=== PATIENT | female | born 1985 | race Caucasian/White ===

== ENCOUNTER 2016-05-23 10:45 | Emergency (ER) | payer BC ==
[2016-05-23 11:12] VITALS: RESP 16
[2016-05-23] MEDS ORDERED: KETOROLAC 30 MG/ML 1 ML VIAL IVP STA (11:29)
[2016-05-23] MEDS ORDERED: SODIUM CHLORIDE 0.9% 1,000 ML IV ONE (11:29)
[2016-05-23] MEDS ORDERED: METOCLOPRAMIDE 5 MG/ML 2 ML VIAL IVP STA (11:29)
[2016-05-23] MEDS ORDERED: diphenhydrAMINE 50 MG/ML 1 ML VIAL IVP STA (11:29)
--- NOTE | 2016-05-23 11:33 | ED ---
Headache HPI - General Chief Complaint: Headache Stated Complaint: Headache-4 days Time Seen by Provider: 05/23/16 11:17 Source: RN notes reviewed Mode of arrival: ambulatory Limitations: no limitations - History of Present Illness Initial Comments: Patient is a 31-year-old female presents to the emergency room for evaluation of migraine headache. Patient states she has a history of migraine headaches. Patient states has been having a migraine headache for the past 3 days. Patient states been taking firocet with no relief of symptoms. Patient states this feels like her normal migraines. Patient states she can't get rid of this migraine with her normal medications. Patient states she is feeling very nauseous and vomited yesterday. Patient states having 8 out of 10 constant headache. Patient does admit to photophobia and phonophobia. Patient's eyes ringing in the ears or ear pain. Patient denies dizziness. Patient denies neck pain. Patient denies chest pain shortness of breath. Patient denies abdominal pain. Patient denies constipation or diarrhea. Patient denies any fevers or chills. - Related Data Home Medications Medication Instructions Recorded Confirmed Levothyroxine Sodium [Synthroid] 50 mcg PO DAILY 05/05/14 05/23/16 traZODone HCL [Desyrel] 100 mg PO HS 04/04/15 05/23/16 Topiramate [Topiramate] 100 mg PO BID 09/08/15 05/23/16 Ondansetron Odt [Zofran Odt] 8 mg PO Q8HR PRN 10/27/15 05/23/16 HYDROcodone/APAP 7.5-325MG [[place] 1 tab PO TID PRN 05/01/16 05/23/16 7.5-325] Hair, Skin And Nails Gummy 2 tab PO DAILY 05/01/16 05/23/16 Ibuprofen [Motrin] 800 mg PO TID PRN 05/01/16 05/23/16 Norethindrone-E.estradiol-Iron 1 tab PO HS 05/01/16 05/23/16 [Loestrin Fe 1.5-30 Tablet] Pregabalin [Lyrica] 75 mg PO BID 05/01/16 05/23/16 Venlafaxine HCl [Effexor XR] 225 mg PO HS 05/01/16 05/23/16 busPIRone HCL 15 mg PO BID 05/01/16 05/23/16 Albuterol Inhaler [Ventolin Hfa 1 - 2 puff INHALATION RT-Q6H PRN 05/23/16 Inhaler] Allergies Allergy/AdvReac Type Severity Reaction Status Date / Time tramadol AdvReac Hallucinati Verified 05/23/16 11:15 ons valacyclovir HCl AdvReac Headache/Double Verified 05/23/16 11:15 [From Valtrex] Vision Review of Systems ROS Statement: Those systems with pertinent positive or pertinent negative responses have been documented in the HPI. ROS Other: All systems not noted in ROS Statement are negative. Past Medical History Past Medical History: Asthma, GERD/Reflux, Sleep Apnea/CPAP/BIPAP, Thyroid Disorder Additional Past Medical History / Comment(s): migraines, degenerative disk, IBS , no CPAP used, wears contacts History of Any Multi-Drug Resistant Organisms: None Reported Past Surgical History: Breast Surgery Additional Past Surgical History / Comment(s): dental Breast biopsy July 15 negative. MEDICAL-back pain, IBS, migraines Past Anesthesia/Blood Transfusion Reactions: No Reported Reaction, Motion Sickness Past Psychological History: ADD/ADHD, Anxiety, Bipolar, Depression Smoking Status: Never smoker Past Alcohol Use History: Rare Past Drug Use History: None Reported General Exam - General Exam Comments Initial Comments: Sitting in exam room, sunglasses on, no acute distress. Limitations: no limitations General appearance: alert, in no apparent distress Head exam: Present: atraumatic, normocephalic, normal inspection Eye exam: Present: normal appearance, PERRL, EOMI Pupils: Present: normal accommodation ENT exam: Present: normal exam Neck exam: Present: normal inspection Respiratory exam: Present: normal lung sounds bilaterally. Absent: respiratory distress Cardiovascular Exam: Present: regular rate, normal rhythm, normal heart sounds Extremities exam: Present: normal inspection Back exam: Present: normal inspection Neurological exam: Present: alert, oriented X3, CN II-XII intact, normal gait Psychiatric exam: Present: normal affect, normal mood Skin exam: Present: warm, dry, intact, normal color. Absent: rash Course Vital Signs 05/23/16 05/23/16 11:10 13:51 Temperature 98.6 F 98.4 F Pulse Rate 72 85 Respiratory 16 16 Rate Blood Pressure 117/72 113/64 O2 Sat by Pulse 97 97 Oximetry Medical Decision Making - Medical Decision Making Patient is a 31-year-old female presents emergency room for evaluation of migraine headache. Patient has no neuro deficits. Patient states she is feeling better after medications and fluids given. Patient requests to be discharged home. Advised patient to follow-up with her primary care provider in 1-2 days. Patient states she understands everything that was discussed with her. Return parameters discussed. Case discussed with Dr. Martinez. Disposition Clinical Impression: Headache Disposition: HOME SELF-CARE Condition: Good Instructions: Acute Headache (ED) Additional Instructions: Drink plenty of water. Continue taking at home medications as needed. Please follow up with primary care provider in 1-2 days. If any new symptom arises, symptoms worsen or fever develops, return to ER as soon as possible. Referrals: Edgardo Inman MD [Primary Care Provider] - 1-2 days Time of Disposition: 13:44
[2016-05-23] MEDS ORDERED: methylPREDNISolone SOD SUCCI 125 MG/2 ML VIAL IV STA (12:37)
[2016-05-23] MEDS ORDERED: SODIUM CHLORIDE 0.9% 500 ML IV ONE (12:38)
[2016-05-23 13:53] VITALS: BP 113/64; PULSE 85; TEMP 98.4
== END 2016-05-23 13:53 | disposition home or self-care (01) ==
LOC: EC 10:45
DX: R51 Headache (principal); E07.9 Disorder of thyroid, unspecified; K21.9 Gastro-esophageal reflux disease without esophagitis; F41.9 Anxiety disorder, unspecified; F31.9 Bipolar disorder, unspecified; Z79.899 Other long term (current) drug therapy; Z86.69 Personal history of other diseases of the nervous system and sense organs; Z88.8 Allergy status to other drugs, medicaments and biological substances; Z88.5 Allergy status to narcotic agent
CPT/HCPCS: 99283; 96374; 96375 ×3; 96361 ×2; J1200; J2765; J2930; J1885

== ENCOUNTER 2016-06-13 17:58 | Emergency (ER) | payer BC ==
[2016-06-13 18:24] VITALS: BP 127/74; PULSE 78; RESP 17; TEMP 98.9
--- NOTE | 2016-06-13 19:00 | XR ---
Left foot HISTORY: Trauma, pain 3 views of the left foot Correlation to prior exam March Bone mineralization, joint spaces and alignment are maintained. Small metallic density present in the soft tissues of the volar aspect of the foot measures 3 to 4 mm compatible with foreign body lateral ly. There is a plantar calcaneal spur. IMPRESSION: No fracture or dislocation is evident. Additional findings above.
--- NOTE | 2016-06-13 19:03 | ED ---
Lower Extremity Injury HPI - General Chief Complaint: Extremity Injury, Lower Stated Complaint: Foot injury Time Seen by Provider: 06/13/16 18:26 Source: patient Mode of arrival: wheelchair Limitations: no limitations - History of Present Illness Initial Comments: Patient is a 31-year-old female with chief complaint of left foot injury after dropping a metal car part foot. Patient reports that she was able to walk today however she was walking she had increased pain which prompted her to come the emergency room. Patient reports that the pain is worse when she moves her toes. She denies any peripheral paresthesias. She denies any previous fractures or ankle sprains were left foot. Patient reports that the equipment that she dropped was approximately 10 pounds on her foot. Patient denies any recent fever, chills, shortness of breath, chest pain, back pain, abdominal pain , nausea vomiting, numbness or tingling, dysuria or hematuria, constipation or diarrhea, headaches or visual changes, or any other current symptoms - Related Data Home Medications Medication Instructions Recorded Confirmed Levothyroxine Sodium [Synthroid] 50 mcg PO DAILY 05/05/14 06/13/16 traZODone HCL [Desyrel] 100 mg PO HS 04/04/15 06/13/16 Topiramate [Topiramate] 100 mg PO BID 09/08/15 06/13/16 Ondansetron Odt [Zofran Odt] 8 mg PO Q8HR PRN 10/27/15 06/13/16 HYDROcodone/APAP 7.5-325MG [[place] 1 tab PO TID PRN 05/01/16 06/13/16 7.5-325] Hair, Skin And Nails Gummy 2 tab PO DAILY 05/01/16 06/13/16 Ibuprofen [Motrin] 800 mg PO TID PRN 05/01/16 06/13/16 Norethindrone-E.estradiol-Iron 1 tab PO HS 05/01/16 06/13/16 [Loestrin Fe 1.5-30 Tablet] Pregabalin [Lyrica] 75 mg PO BID 05/01/16 06/13/16 Venlafaxine HCl [Effexor XR] 225 mg PO HS 05/01/16 06/13/16 busPIRone HCL 15 mg PO BID 05/01/16 06/13/16 Albuterol Inhaler [Ventolin Hfa 1 - 2 puff INHALATION RT-Q6H PRN 05/23/16 Inhaler] Previous Rx's Medication Instructions Recorded Ibuprofen [Motrin] 800 mg PO TID #30 tab 06/13/16 Allergies Allergy/AdvReac Type Severity Reaction Status Date / Time tramadol AdvReac Hallucinati Verified 06/13/16 18:46 ons valacyclovir HCl AdvReac Headache/Double Verified 06/13/16 18:46 [From Valtrex] Vision Review of Systems ROS Statement: Those systems with pertinent positive or pertinent negative responses have been documented in the HPI. ROS Other: All systems not noted in ROS Statement are negative. Past Medical History Past Medical History: Asthma, GERD/Reflux, Sleep Apnea/CPAP/BIPAP, Thyroid Disorder Additional Past Medical History / Comment(s): migraines, degenerative disk, IBS , no CPAP used, wears contacts History of Any Multi-Drug Resistant Organisms: None Reported Past Surgical History: Breast Surgery Additional Past Surgical History / Comment(s): dental Breast biopsy July 15 negative. MEDICAL-back pain, IBS, migraines Past Anesthesia/Blood Transfusion Reactions: No Reported Reaction, Motion Sickness Past Psychological History: ADD/ADHD, Anxiety, Bipolar, Depression Smoking Status: Never smoker Past Alcohol Use History: Rare Past Drug Use History: None Reported General Exam - General Exam Comments Initial Comments: Patient is well-appearing 31-year-old female. She does not appear to be in any acute distress. Limitations: no limitations General appearance: alert, in no apparent distress Head exam: Present: atraumatic, normocephalic, normal inspection Eye exam: Present: normal appearance ENT exam: Present: normal exam, mucous membranes moist Neck exam: Present: normal inspection. Absent: tenderness, meningismus, lymphadenopathy Respiratory exam: Present: normal lung sounds bilaterally. Absent: respiratory distress, wheezes, rales, rhonchi, stridor Cardiovascular Exam: Present: regular rate, normal rhythm, normal heart sounds. Absent: systolic murmur, diastolic murmur, rubs, gallop, clicks GI/Abdominal exam: Present: soft, normal bowel sounds. Absent: distended, tenderness, guarding, rebound, rigid Extremities exam: Present: normal inspection, full ROM, normal capillary refill. Absent: tenderness, pedal edema, joint swelling, calf tenderness Right Lower Leg exam: Present: normal inspection, full ROM Ankle exam: Present: normal inspection, full ROM Foot/Toe exam: Present: normal inspection, full ROM, tenderness (2nd-4th distal metatarsal) Neurovascular tendon exam: Present: no vascular compromise Gait: observed and normal Back exam: Present: normal inspection Neurological exam: Present: alert, oriented X3, CN II-XII intact Psychiatric exam: Present: normal affect, normal mood Skin exam: Present: warm, dry, intact, normal color. Absent: rash Course Vital Signs 06/13/16 18:20 Temperature 98.9 F Pulse Rate 78 Respiratory 17 Rate Blood Pressure 127/74 O2 Sat by Pulse 99 Oximetry Medical Decision Making - Medical Decision Making Patient is a 31 year old female with right foot pain after a 10lb weight dropped on it yesterday. she is able to bear weight. Patient has no acute process on xray. Patient asked for work note, she will be given it for one day. Patient advised to take antiinflammatory medication. Patient given LIBERTY wrap and advised to follow up with PCP or ortho if symptoms continue to persist. - Radiology Data Radiology results: report reviewed Xray of foot is negative for acute process. Disposition Clinical Impression: Foot contusion Disposition: HOME SELF-CARE Condition: Good Instructions: Foot Contusion (ED) Additional Instructions: instructed to rest, ice, elevate foot. Patient advised to return to the [facility] if any alarming signs or symptoms occur. Follow-up with ortho if symptoms continue to persist. Prescriptions: Ibuprofen [Motrin] 800 mg PO TID #30 tab Referrals: Edgardo Inman MD [Primary Care Provider] - 1-2 days Time of Disposition: 19:03
== END 2016-06-13 19:16 | disposition home or self-care (01) ==
LOC: EC 17:58
DX: S90.31XA Contusion of right foot, initial encounter (principal); W20.8XXA Other cause of strike by thrown, projected or falling object, initial encounter; E07.9 Disorder of thyroid, unspecified; F41.9 Anxiety disorder, unspecified; F31.9 Bipolar disorder, unspecified; Z88.5 Allergy status to narcotic agent; Z88.8 Allergy status to other drugs, medicaments and biological substances; Z79.899 Other long term (current) drug therapy; Z86.69 Personal history of other diseases of the nervous system and sense organs
CPT/HCPCS: 99283

== ENCOUNTER 2016-07-11 08:10 | Emergency (ER) | payer BC, OTHER ==
[2016-07-11] MEDS ORDERED: SODIUM CHLORIDE 0.9% 1,000 ML IV STA (08:27)
[2016-07-11] MEDS ORDERED: MECLIZINE 12.5 MG TAB PO STA (08:27)
[2016-07-11] MEDS ORDERED: KETOROLAC 30 MG/ML 1 ML VIAL IVP STA (08:28)
[2016-07-11] MEDS ORDERED: METOCLOPRAMIDE 5 MG/ML 2 ML VIAL IVP STA (08:28)
--- NOTE | 2016-07-11 08:45 | ED ---
Fall HPI - General Chief Complaint: Fall Stated Complaint: Fell Time Seen by Provider: 07/11/16 08:17 Source: patient, RN notes reviewed Mode of arrival: wheelchair Limitations: no limitations - History of Present Illness Initial Comments: 31-year-old female presents emergency Department with multiple complaints. Patient states he didn't feel dizzy since yesterday. Patient states she just feels off balance. Patient states that she's also had a migraine headache, abdominal pain in the right side. Patient states that she became very dizzy yesterday in the bathroom and fell she's unsure if she passed out. Patient's is in the room with who witnessed this. Patient has not taken any medication for her headache because she's felt slightly nauseated. Patient denies any chest pain, shortness of breath, palpitations, neck pain, fever, chills. Patient denies any chance . Patient states that she's had no abdominal surgeries in the past. Patient takes multiple medications for her chronic headaches, chronic back pain, depression anxiety - Related Data Home Medications Medication Instructions Recorded Confirmed Levothyroxine Sodium [Synthroid] 50 mcg PO DAILY 05/05/14 07/11/16 traZODone HCL [Desyrel] 100 mg PO HS 04/04/15 07/11/16 Topiramate [Topiramate] 100 mg PO BID 09/08/15 07/11/16 Ondansetron Odt [Zofran Odt] 8 mg PO Q8HR PRN 10/27/15 07/11/16 HYDROcodone/APAP 7.5-325MG [[place] 1 tab PO TID PRN 05/01/16 07/11/16 7.5-325] Ibuprofen [Motrin] 800 mg PO TID PRN 05/01/16 07/11/16 Norethindrone-E.estradiol-Iron 1 tab PO HS 05/01/16 07/11/16 [Loestrin Fe 1.5-30 Tablet] Pregabalin [Lyrica] 75 mg PO BID 05/01/16 07/11/16 Venlafaxine HCl [Effexor XR] 225 mg PO HS 05/01/16 07/11/16 busPIRone HCL 15 mg PO BID 05/01/16 07/11/16 Albuterol Inhaler [Ventolin Hfa 1 - 2 puff INHALATION RT-Q6H PRN 05/23/16 Inhaler] ALPRAZolam [Xanax] 0.25 mg PO TID PRN 07/11/16 07/11/16 Butalb/Acetaminophen/Caffeine 1 cap PO Q4HR PRN 07/11/16 07/11/16 [Fioricet 50-300-40 mg Capsule] Previous Rx's Medication Instructions Recorded Ciprofloxacin HCl [Cipro] 500 mg PO Q12HR #10 tablet 07/11/16 Meclizine [Antivert] 25 mg PO TID PRN #15 tab 07/11/16 Allergies Allergy/AdvReac Type Severity Reaction Status Date / Time tramadol AdvReac Hallucinati Verified 07/11/16 09:11 ons valacyclovir HCl AdvReac Headache/Double Verified 07/11/16 09:11 [From Valtrex] Vision Review of Systems ROS Statement: Those systems with pertinent positive or pertinent negative responses have been documented in the HPI. ROS Other: All systems not noted in ROS Statement are negative. Past Medical History Past Medical History: Asthma, GERD/Reflux, Sleep Apnea/CPAP/BIPAP, Thyroid Disorder Additional Past Medical History / Comment(s): migraines, degenerative disk, IBS , no CPAP used, wears contacts History of Any Multi-Drug Resistant Organisms: None Reported Past Surgical History: Breast Surgery Additional Past Surgical History / Comment(s): dental Breast biopsy July 15 negative Past Anesthesia/Blood Transfusion Reactions: No Reported Reaction, Motion Sickness Past Psychological History: ADD/ADHD, Anxiety, Bipolar, Depression Smoking Status: Never smoker Past Alcohol Use History: Rare Past Drug Use History: None Reported General Exam Limitations: no limitations General appearance: alert, in no apparent distress Head exam: Present: atraumatic, normocephalic, normal inspection Eye exam: Present: normal appearance, PERRL, EOMI. Absent: scleral icterus, conjunctival injection, periorbital swelling ENT exam: Present: normal exam, normal oropharynx, mucous membranes moist, TM's normal bilaterally, normal external ear exam Neck exam: Present: normal inspection, full ROM. Absent: tenderness, meningismus, lymphadenopathy Respiratory exam: Present: normal lung sounds bilaterally. Absent: respiratory distress, wheezes, rales, rhonchi, stridor Cardiovascular Exam: Present: regular rate, normal rhythm, normal heart sounds. Absent: systolic murmur, diastolic murmur, rubs, gallop, clicks GI/Abdominal exam: Present: soft, tenderness (Mild right-sided abdominal tenderness), normal bowel sounds. Absent: distended, guarding, rebound, rigid Back exam: Absent: CVA tenderness (R), CVA tenderness (L) Neurological exam: Present: alert, oriented X3, CN II-XII intact, reflexes normal. Absent: motor sensory deficit Skin exam: Present: warm, dry, intact, normal color. Absent: rash Course Vital Signs 07/11/16 08:12 Temperature 97.5 F L Pulse Rate 78 Respiratory 20 Rate Blood Pressure 125/84 O2 Sat by Pulse 99 Oximetry - Reevaluation(s) Reevaluation #1: 07/11/16 10:16 Patient was reevaluated at this time. Patient states the dizziness is improved after Antivert. Patient we discharged with Antivert Medical Decision Making - Medical Decision Making 31-year-old female presented for dizziness, bowel discomfort. Patient has urinary tract infection. Patient was started on Cipro. Patient also has vertigo improved with Antivert. Patient be discharged with Antivert 25 mg 3 times a day when necessary. Patient will follow primary care physician. Return parameters were discussed. - Lab Data Result diagrams: 07/11/16 09:00 07/11/16 09:00 Lab Results 07/11/16 07/11/16 07/11/16 Range/Units 09:00 09:00 09:16 WBC 7.1 (3.8-10.6) k/uL RBC 4.77 (3.80-5.40) m/uL Hgb 14.4 (11.4-16.0) gm/dL Hct 44.0 (34.0-46.0) % MCV 92.2 (80.0-100.0) fL MCH 30.1 (25.0-35.0) pg MCHC 32.7 (31.0-37.0) g/dL RDW 13.3 (11.5-15.5) % Plt Count 307 (150-450) k/uL Neutrophils % 62 % Lymphocytes % 27 % Monocytes % 4 % Eosinophils % 4 % Basophils % 1 % Neutrophils # 4.4 (1.3-7.7) k/uL Lymphocytes # 1.9 (1.0-4.8) k/uL Monocytes # 0.3 (0-1.0) k/uL Eosinophils # 0.3 (0-0.7) k/uL Basophils # 0.1 (0-0.2) k/uL Sodium 145 (137-145) mmol/L Potassium 4.2 (3.5-5.1) mmol/L Chloride 110 H (98-107) mmol/L Carbon Dioxide 23 (22-30) mmol/L Anion Gap 12 mmol/L BUN 13 (7-17) mg/dL Creatinine 0.93 (0.52-1.04) mg/dL Est GFR (MDRD) Af Amer >60 (>60 ml/min/1.73 sqM) Est GFR (MDRD) Non-Af >60 (>60 ml/min/1.73 sqM) Glucose 111 H (74-99) mg/dL Calcium 9.1 (8.4-10.2) mg/dL Total Bilirubin 0.5 (0.2-1.3) mg/dL AST 21 (14-36) U/L ALT 29 (9-52) U/L Alkaline Phosphatase 49 (38-126) U/L Total Protein 6.9 (6.3-8.2) g/dL Albumin 3.8 (3.5-5.0) g/dL Lipase 160 (23-300) U/L Urine Color Yellow Urine Appearance Cloudy H (Clear) Urine pH 5.0 (5.0-8.0) Ur Specific [place] 1.019 (1.001-1.035) Urine Protein Negative (Negative) Urine Glucose (UA) Negative (Negative) Urine Ketones Negative (Negative) Urine Blood Negative (Negative) Urine Nitrate Negative (Negative) Urine Bilirubin Negative (Negative) Urine Urobilinogen <2.0 (<2.0) mg/dL Ur Leukocyte Esterase Large H (Negative) Urine RBC 4 (0-5) /hpf Urine WBC 17 H (0-5) /hpf Ur Squamous Epith Cells 5 H (0-4) /hpf Urine Bacteria Moderate H (None) /hpf Urine Mucus Occasional H (None) /hpf Urine HCG, Qual (Not Detectd) 07/11/16 Range/Units 09:16 WBC (3.8-10.6) k/uL RBC (3.80-5.40) m/uL Hgb (11.4-16.0) gm/dL Hct (34.0-46.0) % MCV (80.0-100.0) fL MCH (25.0-35.0) pg MCHC (31.0-37.0) g/dL RDW (11.5-15.5) % Plt Count (150-450) k/uL Neutrophils % % Lymphocytes % % Monocytes % % Eosinophils % % Basophils % % Neutrophils # (1.3-7.7) k/uL Lymphocytes # (1.0-4.8) k/uL Monocytes # (0-1.0) k/uL Eosinophils # (0-0.7) k/uL Basophils # (0-0.2) k/uL Sodium (137-145) mmol/L Potassium (3.5-5.1) mmol/L Chloride (98-107) mmol/L Carbon Dioxide (22-30) mmol/L Anion Gap mmol/L BUN (7-17) mg/dL Creatinine (0.52-1.04) mg/dL Est GFR (MDRD) Af Amer (>60 ml/min/1.73 sqM) Est GFR (MDRD) Non-Af (>60 ml/min/1.73 sqM) Glucose (74-99) mg/dL Calcium (8.4-10.2) mg/dL Total Bilirubin (0.2-1.3) mg/dL AST (14-36) U/L ALT (9-52) U/L Alkaline Phosphatase (38-126) U/L Total Protein (6.3-8.2) g/dL Albumin (3.5-5.0) g/dL Lipase (23-300) U/L Urine Color Urine Appearance (Clear) Urine pH (5.0-8.0) Ur Specific [place] (1.001-1.035) Urine Protein (Negative) Urine Glucose (UA) (Negative) Urine Ketones (Negative) Urine Blood (Negative) Urine Nitrate (Negative) Urine Bilirubin (Negative) Urine Urobilinogen (<2.0) mg/dL Ur Leukocyte Esterase (Negative) Urine RBC (0-5) /hpf Urine WBC (0-5) /hpf Ur Squamous Epith Cells (0-4) /hpf Urine Bacteria (None) /hpf Urine Mucus (None) /hpf Urine HCG, Qual Not Detected (Not Detectd) Disposition Clinical Impression: Vertigo, UTI (urinary tract infection) Disposition: HOME SELF-CARE Condition: Stable Instructions: Vertigo (ED) Additional Instructions: Please return to the Emergency Department if symptoms worsen or any other concerns. Prescriptions: Ciprofloxacin HCl [Cipro] 500 mg PO Q12HR #10 tablet Meclizine [Antivert] 25 mg PO TID PRN #15 tab PRN Reason: Vertigo Time of Disposition: 10:18
[2016-07-11 09:08] LABS: Basophils # (A) 0.1 k/uL (0-0.2); Basophils % (A) 1 %; CHCM 32.7; Eosinophils # (A) 0.3 k/uL (0-0.7); Eosinophils % (A) 4 %; HDW 2.61; HGB 14.4 gm/dL (11.4-16.0); Luc # (Auto) 0.12; Luc % (Auto) 2; Lymphocytes # (A) 1.9 k/uL (1.0-4.8); Lymphocytes % (A) 27 %; MCH 30.1 pg (25.0-35.0); MCHC 32.7 g/dL (31.0-37.0); MCV 92.2 fL (80.0-100.0); Mean Platelet Volume 7.6; Monocytes # (A) 0.3 k/uL (0-1.0); Monocytes % (A) 4 %; Neutrophils # (A) 4.4 k/uL (1.3-7.7); Neutrophils % (A) 62 %; RBC 4.77 m/uL (3.80-5.40); RDW 13.3 % (11.5-15.5); WBC 7.1 k/uL (3.8-10.6); WBC (Perox) 7.14
[2016-07-11 09:31] LABS: ALT 29 U/L (9-52); AST 21 U/L (14-36); Alkaline Phosphatase 49 U/L (38-126); Anion Gap 12 mmol/L; Blood Urea Nitrogen 13 mg/dL (7-17); Calcium 9.1 mg/dL (8.4-10.2); Carbon Dioxide 23 mmol/L (22-30); Chloride 110 mmol/L (98-107); Glucose 111 mg/dL (74-99); Non-African American GFR(MDRD) >60 (>60 ml/min/1.73 sqM); Potassium 4.2 mmol/L (3.5-5.1); Sodium 145 mmol/L (137-145); Total Bilirubin 0.5 mg/dL (0.2-1.3); Total Protein 6.9 g/dL (6.3-8.2)
[2016-07-11 09:43] LABS: Appearance,Urine Cloudy (Clear); Bacteria,Urine Moderate /hpf; Bilirubin,Urine Negative (Negative); Glucose,Urine (UA) Negative (Negative); Ketones,Urine Negative (Negative); Leukocyte Esterase,Urine Large (Negative); Mucus,Urine Occasional /hpf; Nitrite,Urine Negative (Negative); Particle Count 24962; Protein,Urine Negative (Negative); RBC,Urine 4 /hpf (0-5); Specific Gravity,Urine 1.019 (1.001-1.035); Squamous Epithelial Cell,Urine 5 /hpf (0-4); UA Billing (MACRO vs. MICRO) MICRO; Urobilinogen,Urine <2.0 mg/dL (<2.0); WBC,Urine 17 /hpf (0-5)
[2016-07-11 10:47] VITALS: BP 119/68; PULSE 99; RESP 18; TEMP 97.3
== END 2016-07-11 10:43 | disposition home or self-care (01) ==
LOC: EC 08:10
DX: N39.0 Urinary tract infection, site not specified (principal); R42 Dizziness and giddiness; G43.909 Migraine, unspecified, not intractable, without status migrainosus; E07.9 Disorder of thyroid, unspecified; G47.30 Sleep apnea, unspecified; F31.9 Bipolar disorder, unspecified; F41.9 Anxiety disorder, unspecified; Z79.3 Long term (current) use of hormonal contraceptives; Z79.899 Other long term (current) drug therapy
CPT/HCPCS: 36415; 93005; 80053; 83690; 85025; 81001; 81025; 99284; 96374; 96375; 96361 ×2; J2765; J1885

== ENCOUNTER 2016-08-21 21:16 | Emergency (ER) | payer OTHER ==
[2016-08-21 21:38] VITALS: RESP 18
[2016-08-21] MEDS ORDERED: SODIUM CHLORIDE 0.9% 1,000 ML IV STA (21:55)
[2016-08-21 22:25] LABS: Basophils # (A) 0.1 k/uL (0-0.2); Basophils % (A) 1 %; CH 28.9; CHCM 32.2; Eosinophils # (A) 0.2 k/uL (0-0.7); Eosinophils % (A) 1 %; HCT 46.6 % (34.0-46.0); HDW 2.63; HGB 15.4 gm/dL (11.4-16.0); Luc # (Auto) 0.16; Luc % (Auto) 2; Lymphocytes # (A) 3.1 k/uL (1.0-4.8); Lymphocytes % (A) 28 %; MCH 29.8 pg (25.0-35.0); MCV 90.2 fL (80.0-100.0); Monocytes # (A) 0.5 k/uL (0-1.0); Monocytes % (A) 5 %; Neutrophils % (A) 64 %; RBC 5.16 m/uL (3.80-5.40); RDW 12.7 % (11.5-15.5); WBC (Perox) 11.31
[2016-08-21 22:29] LABS: Appearance,Urine Cloudy (Clear); Bacteria,Urine Moderate /hpf; Bilirubin,Urine Negative (Negative); Glucose,Urine (UA) Negative (Negative); Ketones,Urine Negative (Negative); Leukocyte Esterase,Urine Trace (Negative); Mucus,Urine Moderate /hpf; Nitrite,Urine Negative (Negative); PH, Urine 5.5 (5.0-8.0); Particle Count 19129; Protein,Urine 1+ (Negative); RBC,Urine 4 /hpf (0-5); Squamous Epithelial Cell,Urine 5 /hpf (0-4); UA Billing (MACRO vs. MICRO) MICRO; Urobilinogen,Urine <2.0 mg/dL (<2.0)
[2016-08-21 22:49] LABS: ALT 51 U/L (9-52); AST 37 U/L (14-36); Alkaline Phosphatase 76 U/L (38-126); Amylase 89 U/L (30-110); Anion Gap 15 mmol/L; Blood Urea Nitrogen 15 mg/dL (7-17); Calcium 9.9 mg/dL (8.4-10.2); Carbon Dioxide 25 mmol/L (22-30); Chloride 106 mmol/L (98-107); Glucose 89 mg/dL (74-99); Non-African American GFR(MDRD) >60 (>60 ml/min/1.73 sqM); Potassium 4.1 mmol/L (3.5-5.1); Sodium 146 mmol/L (137-145); Total Bilirubin 0.4 mg/dL (0.2-1.3); Total Protein 7.8 g/dL (6.3-8.2)
--- NOTE | 2016-08-21 23:25 | ED ---
Nausea/Vomiting/Diarrhea HPI - General Chief complaint: Nausea/Vomiting/Diarrhea Stated complaint: not feeling well Time Seen by Provider: 08/21/16 21:47 Source: patient, RN notes reviewed Mode of arrival: ambulatory Limitations: no limitations - History of Present Illness Initial comments: 31-year-old female presents emergency Department with chief complaint of not feeling well. She states that she's felt very hot, flushed. Patient states that she just feels that she cannot cooldown period she states that she's had a fan on all day and just feels off. She has no specific complaints. Denies chest pain, shortness breath, headache, dizziness, fever or chills. She states that she did take her temperature which was normal. Patient denies any abdominal pain though she had some intermittent nausea. Patient states she is unsure she's as she used to take control was lost at 11 ago. Patient denies any dysuria denies hematuria. Patient offers no other complaints. - Related Data Home Medications Medication Instructions Recorded Confirmed Levothyroxine Sodium [Synthroid] 50 mcg PO DAILY 05/05/14 08/21/16 traZODone HCL [Desyrel] 100 mg PO HS 04/04/15 08/21/16 Topiramate [Topiramate] 100 mg PO BID 09/08/15 08/21/16 Ondansetron Odt [Zofran Odt] 8 mg PO Q8HR PRN 10/27/15 08/21/16 HYDROcodone/APAP 7.5-325MG [[place] 1 tab PO TID PRN 05/01/16 08/21/16 7.5-325] Ibuprofen [Motrin] 800 mg PO TID PRN 05/01/16 08/21/16 Norethindrone-E.estradiol-Iron 1 tab PO HS 05/01/16 08/21/16 [Loestrin Fe 1.5-30 Tablet] Pregabalin [Lyrica] 75 mg PO BID 05/01/16 08/21/16 Venlafaxine HCl [Effexor XR] 225 mg PO HS 05/01/16 08/21/16 busPIRone HCL 15 mg PO BID 05/01/16 08/21/16 Albuterol Inhaler [Ventolin Hfa 1 - 2 puff INHALATION RT-Q6H PRN 05/23/16 Inhaler] ALPRAZolam [Xanax] 0.25 mg PO TID PRN 07/11/16 08/21/16 Butalb/Acetaminophen/Caffeine 1 cap PO Q4HR PRN 07/11/16 08/21/16 [Fioricet 50-300-40 mg Capsule] Lisdexamfetamine Dimesylate 40 mg PO QAM 08/21/16 08/21/16 [Vyvanse] Previous Rx's Medication Instructions Recorded Meclizine [Antivert] 25 mg PO TID PRN #15 tab 07/11/16 Allergies Allergy/AdvReac Type Severity Reaction Status Date / Time tramadol AdvReac Hallucinati Verified 08/21/16 22:01 ons valacyclovir HCl AdvReac Headache/Double Verified 08/21/16 22:01 [From Valtrex] Vision Review of Systems ROS Statement: Those systems with pertinent positive or pertinent negative responses have been documented in the HPI. ROS Other: All systems not noted in ROS Statement are negative. Past Medical History Past Medical History: Asthma, GERD/Reflux, Sleep Apnea/CPAP/BIPAP, Thyroid Disorder Additional Past Medical History / Comment(s): migraines, degenerative disk, IBS , no CPAP used, wears contacts History of Any Multi-Drug Resistant Organisms: None Reported Past Surgical History: Breast Surgery Additional Past Surgical History / Comment(s): dental Breast biopsy July 15 negative Past Anesthesia/Blood Transfusion Reactions: No Reported Reaction, Motion Sickness Past Psychological History: ADD/ADHD, Anxiety, Bipolar, Depression Smoking Status: Never smoker Past Alcohol Use History: Rare Past Drug Use History: None Reported General Exam Limitations: no limitations General appearance: alert, in no apparent distress Head exam: Present: atraumatic, normocephalic, normal inspection Eye exam: Present: normal appearance, PERRL, EOMI. Absent: scleral icterus, conjunctival injection, periorbital swelling ENT exam: Present: normal exam, normal oropharynx, mucous membranes moist, TM's normal bilaterally, normal external ear exam Neck exam: Present: normal inspection, full ROM. Absent: tenderness, meningismus, lymphadenopathy Respiratory exam: Present: normal lung sounds bilaterally. Absent: respiratory distress, wheezes, rales, rhonchi, stridor Cardiovascular Exam: Present: regular rate, normal rhythm, normal heart sounds. Absent: systolic murmur, diastolic murmur, rubs, gallop, clicks GI/Abdominal exam: Present: soft, normal bowel sounds. Absent: distended, tenderness, guarding, rebound, rigid Neurological exam: Present: alert, oriented X3, CN II-XII intact Skin exam: Present: warm, dry, intact, normal color. Absent: rash Course Vital Signs 08/21/16 08/22/16 21:34 00:23 Temperature 98.4 F 97.9 F Pulse Rate 78 72 Respiratory 18 18 Rate Blood Pressure 112/72 105/55 O2 Sat by Pulse 100 99 Oximetry Medical Decision Making - Medical Decision Making 31-year-old female presents emergency department for hot flashes. Patient states she does not feeling herself. Patient's laboratory within normal limits. There is a pending T4. Patient does take Synthroid currently. Patient 's informed is negative, lab work is within normal limits. This most likely is either viral illness versus hormonal changes as she stopped her control recently. Patient will be discharged with follow-up with her primary physician. - Lab Data Result diagrams: 08/21/16 22:10 08/21/16 22:10 Lab Results 08/21/16 08/21/16 08/21/16 Range/Units 22:10 22:10 22:10 WBC 11.0 H (3.8-10.6) k/uL RBC 5.16 (3.80-5.40) m/uL Hgb 15.4 (11.4-16.0) gm/dL Hct 46.6 H (34.0-46.0) % MCV 90.2 (80.0-100.0) fL MCH 29.8 (25.0-35.0) pg MCHC 33.0 (31.0-37.0) g/dL RDW 12.7 (11.5-15.5) % Plt Count 330 (150-450) k/uL Neutrophils % 64 % Lymphocytes % 28 % Monocytes % 5 % Eosinophils % 1 % Basophils % 1 % Neutrophils # 7.0 (1.3-7.7) k/uL Lymphocytes # 3.1 (1.0-4.8) k/uL Monocytes # 0.5 (0-1.0) k/uL Eosinophils # 0.2 (0-0.7) k/uL Basophils # 0.1 (0-0.2) k/uL Sodium 146 H (137-145) mmol/L Potassium 4.1 (3.5-5.1) mmol/L Chloride 106 (98-107) mmol/L Carbon Dioxide 25 (22-30) mmol/L Anion Gap 15 mmol/L BUN 15 (7-17) mg/dL Creatinine 0.90 (0.52-1.04) mg/dL Est GFR (MDRD) Af Amer >60 (>60 ml/min/1.73 sqM) Est GFR (MDRD) Non-Af >60 (>60 ml/min/1.73 sqM) Glucose 89 (74-99) mg/dL Calcium 9.9 (8.4-10.2) mg/dL Total Bilirubin 0.4 (0.2-1.3) mg/dL AST 37 H (14-36) U/L ALT 51 (9-52) U/L Alkaline Phosphatase 76 (38-126) U/L Total Protein 7.8 (6.3-8.2) g/dL Albumin 4.6 (3.5-5.0) g/dL Amylase 89 (30-110) U/L Lipase 175 (23-300) U/L TSH 5.120 H (0.465-4.680) mIU/L Urine Color Urine Appearance (Clear) Urine pH (5.0-8.0) Ur Specific [place] (1.001-1.035) Urine Protein (Negative) Urine Glucose (UA) (Negative) Urine Ketones (Negative) Urine Blood (Negative) Urine Nitrite (Negative) Urine Bilirubin (Negative) Urine Urobilinogen (<2.0) mg/dL Ur Leukocyte Esterase (Negative) Urine RBC (0-5) /hpf Ur Squamous Epith Cells (0-4) /hpf Urine Bacteria (None) /hpf Urine Mucus (None) /hpf Urine HCG, Qual Not Detected (Not Detectd) Heterophile Antibody (Negative) Influenza Type A RNA (Not Detectd) Influenza Type B (PCR) (Not Detectd) 08/21/16 08/21/16 08/21/16 Range/Units 22:10 22:10 23:04 WBC (3.8-10.6) k/uL RBC (3.80-5.40) m/uL Hgb (11.4-16.0) gm/dL Hct (34.0-46.0) % MCV (80.0-100.0) fL MCH (25.0-35.0) pg MCHC (31.0-37.0) g/dL RDW (11.5-15.5) % Plt Count (150-450) k/uL Neutrophils % % Lymphocytes % % Monocytes % % Eosinophils % % Basophils % % Neutrophils # (1.3-7.7) k/uL Lymphocytes # (1.0-4.8) k/uL Monocytes # (0-1.0) k/uL Eosinophils # (0-0.7) k/uL Basophils # (0-0.2) k/uL Sodium (137-145) mmol/L Potassium (3.5-5.1) mmol/L Chloride (98-107) mmol/L Carbon Dioxide (22-30) mmol/L Anion Gap mmol/L BUN (7-17) mg/dL Creatinine (0.52-1.04) mg/dL Est GFR (MDRD) Af Amer (>60 ml/min/1.73 sqM) Est GFR (MDRD) Non-Af (>60 ml/min/1.73 sqM) Glucose (74-99) mg/dL Calcium (8.4-10.2) mg/dL Total Bilirubin (0.2-1.3) mg/dL AST (14-36) U/L ALT (9-52) U/L Alkaline Phosphatase (38-126) U/L Total Protein (6.3-8.2) g/dL Albumin (3.5-5.0) g/dL Amylase (30-110) U/L Lipase (23-300) U/L TSH (0.465-4.680) mIU/L Urine Color Yellow Urine Appearance Cloudy H (Clear) Urine pH 5.5 (5.0-8.0) Ur Specific [place] 1.030 (1.001-1.035) Urine Protein 1+ H (Negative) Urine Glucose (UA) Negative (Negative) Urine Ketones Negative (Negative) Urine Blood Trace H (Negative) Urine Nitrite Negative (Negative) Urine Bilirubin Negative (Negative) Urine Urobilinogen <2.0 (<2.0) mg/dL Ur Leukocyte Esterase Trace H (Negative) Urine RBC 4 (0-5) /hpf Ur Squamous Epith Cells 5 H (0-4) /hpf Urine Bacteria Moderate H (None) /hpf Urine Mucus Moderate H (None) /hpf Urine HCG, Qual (Not Detectd) Heterophile Antibody Negative (Negative) Influenza Type A RNA Not Detected (Not Detectd) Influenza Type B (PCR) Not Detected (Not Detectd) Disposition Clinical Impression: Hot flashes, Malaise Disposition: HOME SELF-CARE Condition: Stable Instructions: Fatigue (ED) Additional Instructions: Please return to the Emergency Department if symptoms worsen or any other concerns. Time of Disposition: 00:54
[2016-08-22 00:24] VITALS: BP 105/55; PULSE 72; TEMP 97.9
== END 2016-08-22 01:01 | disposition home or self-care (01) ==
LOC: EC 21:16
DX: N95.1 Menopausal and female climacteric states (principal); R11.2 Nausea with vomiting, unspecified; R19.7 Diarrhea, unspecified; E07.9 Disorder of thyroid, unspecified; F32.9 Major depressive disorder, single episode, unspecified; F41.9 Anxiety disorder, unspecified; F90.9 Attention-deficit hyperactivity disorder, unspecified type; Z79.899 Other long term (current) drug therapy; Z88.6 Allergy status to analgesic agent; Z88.8 Allergy status to other drugs, medicaments and biological substances
CPT/HCPCS: 36415; 80053; 81001; 81025; 82150; 83690; 84439; 84443; 85025; 86308; 87502; 96360; 99284

== ENCOUNTER 2016-10-05 18:31 | Emergency (ER) | payer OTHER ==
[2016-10-05 18:34] VITALS: BP 135/65; PULSE 75; RESP 20; TEMP 98.1
[2016-10-05] MEDS ORDERED: KETOROLAC 60 MG/2 ML VIAL IM STA (18:48)
--- NOTE | 2016-10-05 19:03 | XR ---
EXAMINATION TYPE: XR knee complete RT DATE OF EXAM: 10/05/2016 6:58 PM COMPARISON: NONE HISTORY: Pain TECHNIQUE: 3 views FINDINGS: I see no fracture nor dislocation. Joint spaces are fairly normal. There is no sign of join t effusion. IMPRESSION: Normal right knee exam
--- NOTE | 2016-10-05 19:03 | ED ---
Lower Extremity Injury HPI - General Chief Complaint: Extremity Injury, Lower Stated Complaint: knee pain Time Seen by Provider: 10/05/16 18:45 Source: patient, RN notes reviewed Mode of arrival: ambulatory Limitations: no limitations - History of Present Illness Initial Comments: 31 yo female presents to the ER with cc of right knee pain. Patient states he is having a scar and he had right knee pain. Patient states he has anterior pain. Patient states it hurts to sit down. Patient states that there has been no other fall. Patient states she has no history of problems with the knee pain. Patient denies any recent fever, chills, shortness of breath, chest pain, back pain, abdominal pain, nausea vomiting, numbness or tingling, dysuria or hematuria, constipation or diarrhea, headaches or visual changes, or any other current symptoms. - Related Data Home Medications Medication Instructions Recorded Confirmed Levothyroxine Sodium [Synthroid] 50 mcg PO DAILY 05/05/14 08/21/16 traZODone HCL [Desyrel] 100 mg PO HS 04/04/15 08/21/16 Topiramate [Topiramate] 100 mg PO BID 09/08/15 08/21/16 Ondansetron Odt [Zofran Odt] 8 mg PO Q8HR PRN 10/27/15 08/21/16 HYDROcodone/APAP 7.5-325MG [[place] 1 tab PO TID PRN 05/01/16 08/21/16 7.5-325] Ibuprofen [Motrin] 800 mg PO TID PRN 05/01/16 08/21/16 Norethindrone-E.estradiol-Iron 1 tab PO HS 05/01/16 08/21/16 [Loestrin Fe 1.5-30 Tablet] Pregabalin [Lyrica] 75 mg PO BID 05/01/16 08/21/16 Venlafaxine HCl [Effexor XR] 225 mg PO HS 05/01/16 08/21/16 busPIRone HCL 15 mg PO BID 05/01/16 08/21/16 Albuterol Inhaler [Ventolin Hfa 1 - 2 puff INHALATION RT-Q6H PRN 05/23/16 Inhaler] ALPRAZolam [Xanax] 0.25 mg PO TID PRN 07/11/16 08/21/16 Butalb/Acetaminophen/Caffeine 1 cap PO Q4HR PRN 07/11/16 08/21/16 [Fioricet 50-300-40 mg Capsule] Lisdexamfetamine Dimesylate 40 mg PO QAM 08/21/16 08/21/16 [Vyvanse] Previous Rx's Medication Instructions Recorded Meclizine [Antivert] 25 mg PO TID PRN #15 tab 07/11/16 Allergies Allergy/AdvReac Type Severity Reaction Status Date / Time tramadol AdvReac Hallucinati Verified 10/05/16 18:34 ons valacyclovir HCl AdvReac Headache/Double Verified 10/05/16 18:34 [From Valtrex] Vision Review of Systems ROS Statement: Those systems with pertinent positive or pertinent negative responses have been documented in the HPI. ROS Other: All systems not noted in ROS Statement are negative. Past Medical History Past Medical History: Asthma, GERD/Reflux, Sleep Apnea/CPAP/BIPAP, Thyroid Disorder Additional Past Medical History / Comment(s): migraines, degenerative disk, IBS , no CPAP used, wears contacts History of Any Multi-Drug Resistant Organisms: None Reported Past Surgical History: Breast Surgery Additional Past Surgical History / Comment(s): dental Breast biopsy July 15 negative Past Anesthesia/Blood Transfusion Reactions: No Reported Reaction, Motion Sickness Past Psychological History: ADD/ADHD, Anxiety, Bipolar, Depression Smoking Status: Never smoker Past Alcohol Use History: Rare Past Drug Use History: None Reported General Exam - General Exam Comments Initial Comments: General: The patient is awake and alert, in no distress, and does not appear acutely ill. Neck: The neck is supple, there is no tenderness . Cardiovascular: There is a regular rate and rhythm. No murmur, rub or gallop is appreciated. Respiratory: Lungs are clear to auscultation, respirations are non-labored, breath sounds are equal. No wheezes, stridor, rales, or rhonchi. Musculoskeletal: Sensation intact with pupils. Left lower extremity. Full range of motion of the right ankle right knee and right hip. There is no deformity noted. Neurological: CN II-XII intact, There are no obvious motor or sensory deficits. Coordination appears grossly intact. Speech is normal. Skin: Skin is warm and dry and no rashes or lesions are noted. Psychiatric: Normal mood and affect. Limitations: no limitations Course Vital Signs 10/05/16 18:33 Temperature 98.1 F Pulse Rate 75 Respiratory 20 Rate Blood Pressure 135/65 O2 Sat by Pulse 100 Oximetry Medical Decision Making - Medical Decision Making 31-year-old female presents emergency Department chief complaint of right knee pain. At this time patient's x-rays reviewed his sugars acute process. This patient was discussed with follow-up with orthopedic. We discussed return parameters all of her questions. She states she understood and she is negative plan. She'll be discharged. - Radiology Data Radiology results: report reviewed, image reviewed Disposition Clinical Impression: Right knee sprain Disposition: HOME SELF-CARE Condition: Stable Instructions: Knee Sprain (ED) Additional Instructions: Please use medication as discussed. Please follow up with family doctor if symptoms have not improved over the next two days. Please return to the emergency room if your symptoms increase or worsen or for any other concerns. Referrals: Edgardo Inman MD [Primary Care Provider] - 1-2 days Tim Holman MD [Medical Doctor] - 1-2 days Time of Disposition: 19:03
== END 2016-10-05 19:12 | disposition home or self-care (01) ==
LOC: EC 18:31
DX: S83.91XA Sprain of unspecified site of right knee, initial encounter (principal); E07.9 Disorder of thyroid, unspecified; F41.9 Anxiety disorder, unspecified; F32.9 Major depressive disorder, single episode, unspecified; F90.9 Attention-deficit hyperactivity disorder, unspecified type; Z79.3 Long term (current) use of hormonal contraceptives; Z79.899 Other long term (current) drug therapy; Z88.6 Allergy status to analgesic agent; Z88.8 Allergy status to other drugs, medicaments and biological substances; Z87.09 Personal history of other diseases of the respiratory system; X58.XXXA Exposure to other specified factors, initial encounter; Y93.01 Activity, walking, marching and hiking
CPT/HCPCS: 73562; 99283; 96372; L1830; J1885

== ENCOUNTER 2016-11-22 17:48 | Emergency (ER) | payer OTHER ==
[2016-11-22 18:00] VITALS: BP 140/90; PULSE 80; RESP 17; TEMP 98.8
--- NOTE | 2016-11-22 18:10 | ED ---
General Adult HPI - General Chief complaint: Extremity Injury, Upper Stated complaint: rt hand injury Time Seen by Provider: 11/22/16 18:03 Source: patient, RN notes reviewed Mode of arrival: ambulatory Limitations: no limitations - History of Present Illness Initial comments: 31-year-old female who presents emergency room today with chief complaint of an injury to the right hand. She does admit that she became angry with a coworker and punched a wall causing some bruising and some swelling over the third and fourth MCP joints. Patient denies any other complaints or injuries. Patient denies any recent fever, chills, shortness of breath, chest pain, back pain, abdominal pain, nausea or vomiting, numbness or tingling, dysuria or hematuria, constipation or diarrhea, headaches or visual changes, or any other complaints. - Related Data Home Medications Medication Instructions Recorded Confirmed Levothyroxine Sodium [Synthroid] 50 mcg PO DAILY 05/05/14 08/21/16 traZODone HCL [Desyrel] 100 mg PO HS 04/04/15 08/21/16 Topiramate [Topiramate] 100 mg PO BID 09/08/15 08/21/16 Ondansetron Odt [Zofran Odt] 8 mg PO Q8HR PRN 10/27/15 08/21/16 HYDROcodone/APAP 7.5-325MG [[place] 1 tab PO TID PRN 05/01/16 08/21/16 7.5-325] Ibuprofen [Motrin] 800 mg PO TID PRN 05/01/16 08/21/16 Norethindrone-E.estradiol-Iron 1 tab PO HS 05/01/16 08/21/16 [Loestrin Fe 1.5-30 Tablet] Pregabalin [Lyrica] 75 mg PO BID 05/01/16 08/21/16 Venlafaxine HCl [Effexor XR] 225 mg PO HS 05/01/16 08/21/16 busPIRone HCL 15 mg PO BID 05/01/16 08/21/16 Albuterol Inhaler [Ventolin Hfa 1 - 2 puff INHALATION RT-Q6H PRN 05/23/16 Inhaler] ALPRAZolam [Xanax] 0.25 mg PO TID PRN 07/11/16 08/21/16 Butalb/Acetaminophen/Caffeine 1 cap PO Q4HR PRN 07/11/16 08/21/16 [Fioricet 50-300-40 mg Capsule] Lisdexamfetamine Dimesylate 40 mg PO QAM 08/21/16 08/21/16 [Vyvanse] Previous Rx's Medication Instructions Recorded Meclizine [Antivert] 25 mg PO TID PRN #15 tab 07/11/16 Ibuprofen [Motrin] 600 mg PO Q6HR PRN #20 day 11/22/16 Allergies Allergy/AdvReac Type Severity Reaction Status Date / Time tramadol AdvReac Hallucinati Verified 11/22/16 17:56 ons valacyclovir HCl AdvReac Headache/Double Verified 11/22/16 17:56 [From Valtrex] Vision Review of Systems ROS Statement: Those systems with pertinent positive or pertinent negative responses have been documented in the HPI. ROS Other: All systems not noted in ROS Statement are negative. Past Medical History Past Medical History: Asthma, GERD/Reflux, Sleep Apnea/CPAP/BIPAP, Thyroid Disorder Additional Past Medical History / Comment(s): migraines, degenerative disk, IBS , no CPAP used, wears contacts History of Any Multi-Drug Resistant Organisms: None Reported Past Surgical History: Breast Surgery Additional Past Surgical History / Comment(s): dental Breast biopsy July 15 negative Past Anesthesia/Blood Transfusion Reactions: No Reported Reaction, Motion Sickness Past Psychological History: ADD/ADHD, Anxiety, Bipolar, Depression Smoking Status: Never smoker Past Alcohol Use History: Rare Past Drug Use History: None Reported General Exam - General Exam Comments Initial Comments: General: The patient is awake and alert, in no distress, and does not appear acutely ill. Neck: The neck is supple, there is no tenderness or JVD. Cardiovascular: There is a regular rate and rhythm. No murmur, rub or gallop is appreciated. Respiratory: Lungs are clear to auscultation, respirations are non-labored, breath sounds are equal. No wheezes, stridor, rales, or rhonchi. Musculoskeletal: Patient does have some bruising and swelling over the third and fourth MCP joints. Shows full range of motion. Sensations are intact. Pulses equal bilaterally 2+. Neurological: A&O x 3. CN II-XII intact, There are no obvious motor or sensory deficits. Coordination appears grossly intact. Speech is normal. Skin: Skin is warm and dry and no rashes or lesions are noted. Psychiatric: Normal mood and affect. Limitations: no limitations Course Vital Signs 11/22/16 17:56 Temperature 98.8 F Pulse Rate 80 Respiratory 17 Rate Blood Pressure 140/90 O2 Sat by Pulse 95 Oximetry Medical Decision Making - Medical Decision Making Patient's x-ray reviewed and is negative for any acute fracture dislocation. Patient was advised to follow-up in 7-10 days if symptoms persist for repeat x- rays. Disposition Clinical Impression: Hand contusion Disposition: HOME SELF-CARE Condition: Good Instructions: Contusion in Adults (ED) Additional Instructions: Please use ibuprofen as discussed. Please continue to ice elevate the affected area. Please follow-up in 7-10 days if symptoms persist. Please return to emergency room if the symptoms increase or worsen or for any other concerns. Prescriptions: Ibuprofen [Motrin] 600 mg PO Q6HR PRN #20 day PRN Reason: Pain Referrals: Edgardo Inman MD [Primary Care Provider] - 1-2 days Time of Disposition: 18:36
--- NOTE | 2016-11-22 18:26 | XR ---
EXAMINATION TYPE: XR hand complete RT DATE OF EXAM: 11/22/2016 CLINICAL HISTORY: pain TECHNIQUE: Frontal, lateral and oblique images of the right hand are obtained. COMPARISON: None. FINDINGS: There is no acute fracture/dislocation evident. The joint spaces appear within normal limi ts. Soft tissue swelling overlying the dorsum of the hand. IMPRESSION: There is no acute fracture or dislocation ICD 10 NO FRACTURE, INITIAL EVALUATION
== END 2016-11-22 18:49 | disposition home or self-care (01) ==
LOC: EC 17:48
DX: S60.221A Contusion of right hand, initial encounter (principal); Z79.899 Other long term (current) drug therapy; W22.8XXA Striking against or struck by other objects, initial encounter; G43.909 Migraine, unspecified, not intractable, without status migrainosus; F41.9 Anxiety disorder, unspecified; J45.909 Unspecified asthma, uncomplicated; E07.9 Disorder of thyroid, unspecified; F31.9 Bipolar disorder, unspecified; F90.9 Attention-deficit hyperactivity disorder, unspecified type; Z79.3 Long term (current) use of hormonal contraceptives; Z88.5 Allergy status to narcotic agent; Z88.8 Allergy status to other drugs, medicaments and biological substances
CPT/HCPCS: 99283

== ENCOUNTER 2016-12-31 18:16 | Emergency (ER) | payer OTHER ==
[2016-12-31] MEDS ORDERED: KETOROLAC 30 MG/ML 1 ML VIAL IVP STA (18:43)
[2016-12-31] MEDS ORDERED: ONDANSETRON 4 MG/2 ML VIAL IVP STA (18:43)
[2016-12-31] MEDS ORDERED: SODIUM CHLORIDE 0.9% 1,000 ML IV STA (18:43)
--- NOTE | 2016-12-31 18:46 | ED ---
General Adult HPI - General Chief complaint: Abdominal Pain Stated complaint: LOWER ABDOMINAL PAIN Time Seen by Provider: 12/31/16 18:33 Source: patient, RN notes reviewed Mode of arrival: ambulatory Limitations: no limitations - History of Present Illness Initial comments: 31-year-old female presents to the emergency department with a chief complaint of left lower quadrant abdominal pain. Patient states that this started today. Patient states she did have some dysuria about 34 days ago she took antibiotics that she had a home and she states that it went away. Patient states that then she developed this pain today. She states it is 10 out of 10 in the left lower quadrant. Patient states there is no radiation to the back. Patient denies any nausea vomiting fever chills with this. Patient denies any diarrhea or changes in urination. Patient states she's never had pain like this before. Patient states that she was concerned due to the severity of the pain she took one of her narcosis which did not help so she thought that she should be evaluated.Patient denies any recent fever, chills, shortness of breath , chest pain, back pain, nausea vomiting, numbness or tingling, dysuria or hematuria, constipation or diarrhea, headaches or visual changes, or any other current symptoms. - Related Data Home Medications Medication Instructions Recorded Confirmed Levothyroxine Sodium [Synthroid] 50 mcg PO DAILY 05/05/14 12/31/16 traZODone HCL [Desyrel] 100 mg PO HS 04/04/15 12/31/16 Topiramate [Topiramate] 100 mg PO BID 09/08/15 12/31/16 HYDROcodone/APAP 7.5-325MG [[place] 1 tab PO TID PRN 05/01/16 12/31/16 7.5-325] Norethindrone-E.estradiol-Iron 1 tab PO HS 05/01/16 12/31/16 [Loestrin Fe 1.5-30 Tablet] Pregabalin [Lyrica] 75 mg PO BID 05/01/16 12/31/16 busPIRone HCL 15 mg PO BID 05/01/16 12/31/16 Albuterol Inhaler [Ventolin Hfa 1 - 2 puff INHALATION RT-Q6H PRN 05/23/16 Inhaler] ALPRAZolam [Xanax] 0.25 mg PO TID PRN 07/11/16 12/31/16 Lisdexamfetamine Dimesylate 40 mg PO QAM 08/21/16 12/31/16 [Vyvanse] Lidocaine 3% Cream 1 applic TOPICAL BID PRN 12/31/16 12/31/16 Meloxicam [Mobic] 15 mg PO DAILY 12/31/16 12/31/16 Venlafaxine HCl ER [Effexor Xr] 75 mg PO HS 12/31/16 12/31/16 Venlafaxine HCl [Effexor XR] 150 mg PO HS 12/31/16 12/31/16 Vitamin C/Biotin [Hair, Skin and 1 tab PO DAILY 12/31/16 12/31/16 Nails] Previous Rx's Medication Instructions Recorded Dicyclomine [Bentyl] 10 mg PO TID #20 capsule 12/31/16 Ondansetron Odt [Zofran ODT] 4 mg PO Q8HR PRN #20 tab 12/31/16 Allergies Allergy/AdvReac Type Severity Reaction Status Date / Time valacyclovir HCl Allergy Rash/Hives Verified 12/31/16 19:08 [From Valtrex] tramadol AdvReac Hallucinati Verified 12/31/16 19:08 ons Review of Systems ROS Statement: Those systems with pertinent positive or pertinent negative responses have been documented in the HPI. ROS Other: All systems not noted in ROS Statement are negative. Past Medical History Past Medical History: Asthma, GERD/Reflux, Sleep Apnea/CPAP/BIPAP, Thyroid Disorder Additional Past Medical History / Comment(s): migraines, degenerative disk, IBS , no CPAP used, wears contacts currently being tested for fibromyalgia History of Any Multi-Drug Resistant Organisms: None Reported Past Surgical History: Breast Surgery Additional Past Surgical History / Comment(s): dental Breast biopsy July 15 negative Past Anesthesia/Blood Transfusion Reactions: No Reported Reaction, Motion Sickness Past Psychological History: ADD/ADHD, Anxiety, Bipolar, Depression Smoking Status: Never smoker Past Alcohol Use History: Rare Past Drug Use History: None Reported General Exam - General Exam Comments Initial Comments: General: The patient is awake and alert, in no distress, and does not appear acutely ill. Eye: Pupils are equal, round and reactive to light, extra-ocular movements are intact; there is normal conjunctiva bilaterally. No signs of icterus. Ears, nose, mouth and throat: There are moist mucous membranes and no oral lesions. Neck: The neck is supple, there is no tenderness. Cardiovascular: There is a regular rate and rhythm. No murmur, rub or gallop is appreciated. Respiratory: Lungs are clear to auscultation, respirations are non-labored, breath sounds are equal. No wheezes, stridor, rales, or rhonchi. Gastrointestinal: Soft, non-distended, mild tenderness in left lower quadrant of the abdomen without masses or organomegaly noted. There is no rebound or guarding present. No CVA tenderness. Bowel sounds are unremarkable. Back: There is no tenderness to palpation in the midline. There is no obvious deformity. No rashes noted. Musculoskeletal: Normal ROM, no tenderness, There is no pedal edema. There is no calf tenderness or swelling. Sensation intact. Pulses equal bilaterally 2+. Neurological: CN II-XII intact, There are no obvious motor or sensory deficits. Coordination appears grossly intact. Speech is normal. Skin: Skin is warm and dry and no rashes or lesions are noted. Psychiatric: Cooperative, appropriate mood & affect, normal judgment. Limitations: no limitations Course Vital Signs 12/31/16 18:24 Temperature 99.0 F Pulse Rate 81 Respiratory 18 Rate Blood Pressure 107/62 O2 Sat by Pulse 98 Oximetry Medical Decision Making - Medical Decision Making 31-year-old female presents for left-sided abdominal pain. This time CAT scan and lab work is negative. We'll send the urine for culture. We discussed follow-up. We did discuss the possible etiologies for pain. Discussed return parameters and all her questions very she stated that she understood and she plan. At this time she'll be discharged. - Lab Data Result diagrams: 12/31/16 19:00 12/31/16 19:00 Lab Results 12/31/16 12/31/16 12/31/16 Range/Units 19:00 19:00 19:20 WBC 13.8 H (3.8-10.6) k/uL RBC 4.41 (3.80-5.40) m/uL Hgb 13.0 (11.4-16.0) gm/dL Hct 40.6 (34.0-46.0) % MCV 91.9 (80.0-100.0) fL MCH 29.4 (25.0-35.0) pg MCHC 32.0 (31.0-37.0) g/dL RDW 14.5 (11.5-15.5) % Plt Count 310 (150-450) k/uL Neutrophils % 70 % Lymphocytes % 22 % Monocytes % 4 % Eosinophils % 2 % Basophils % 1 % Neutrophils # 9.6 H (1.3-7.7) k/uL Lymphocytes # 3.0 (1.0-4.8) k/uL Monocytes # 0.6 (0-1.0) k/uL Eosinophils # 0.3 (0-0.7) k/uL Basophils # 0.1 (0-0.2) k/uL Sodium 143 (137-145) mmol/L Potassium 4.4 (3.5-5.1) mmol/L Chloride 110 H (98-107) mmol/L Carbon Dioxide 22 (22-30) mmol/L Anion Gap 11 mmol/L BUN 16 (7-17) mg/dL Creatinine 0.90 (0.52-1.04) mg/dL Est GFR (MDRD) Af Amer >60 (>60 ml/min/1.73 sqM) Est GFR (MDRD) Non-Af >60 (>60 ml/min/1.73 sqM) Glucose 102 H (74-99) mg/dL Calcium 9.3 (8.4-10.2) mg/dL Total Bilirubin 0.2 (0.2-1.3) mg/dL AST 18 (14-36) U/L ALT 37 (9-52) U/L Alkaline Phosphatase 53 (38-126) U/L Total Protein 6.5 (6.3-8.2) g/dL Albumin 3.8 (3.5-5.0) g/dL Amylase 62 (30-110) U/L Lipase 164 (23-300) U/L Urine Color Urine Appearance (Clear) Urine pH (5.0-8.0) Ur Specific [place] (1.001-1.035) Urine Protein (Negative) Urine Glucose (UA) (Negative) Urine Ketones (Negative) Urine Blood (Negative) Urine Nitrite (Negative) Urine Bilirubin (Negative) Urine Urobilinogen (<2.0) mg/dL Ur Leukocyte Esterase (Negative) Urine RBC (0-5) /hpf Urine WBC (0-5) /hpf Ur Squamous Epith Cells (0-4) /hpf Urine Bacteria (None) /hpf Urine Mucus (None) /hpf Urine HCG, Qual Not Detected (Not Detectd) 12/31/16 Range/Units 19:20 WBC (3.8-10.6) k/uL RBC (3.80-5.40) m/uL Hgb (11.4-16.0) gm/dL Hct (34.0-46.0) % MCV (80.0-100.0) fL MCH (25.0-35.0) pg MCHC (31.0-37.0) g/dL RDW (11.5-15.5) % Plt Count (150-450) k/uL Neutrophils % % Lymphocytes % % Monocytes % % Eosinophils % % Basophils % % Neutrophils # (1.3-7.7) k/uL Lymphocytes # (1.0-4.8) k/uL Monocytes # (0-1.0) k/uL Eosinophils # (0-0.7) k/uL Basophils # (0-0.2) k/uL Sodium (137-145) mmol/L Potassium (3.5-5.1) mmol/L Chloride (98-107) mmol/L Carbon Dioxide (22-30) mmol/L Anion Gap mmol/L BUN (7-17) mg/dL Creatinine (0.52-1.04) mg/dL Est GFR (MDRD) Af Amer (>60 ml/min/1.73 sqM) Est GFR (MDRD) Non-Af (>60 ml/min/1.73 sqM) Glucose (74-99) mg/dL Calcium (8.4-10.2) mg/dL Total Bilirubin (0.2-1.3) mg/dL AST (14-36) U/L ALT (9-52) U/L Alkaline Phosphatase (38-126) U/L Total Protein (6.3-8.2) g/dL Albumin (3.5-5.0) g/dL Amylase (30-110) U/L Lipase (23-300) U/L Urine Color Yellow Urine Appearance Cloudy H (Clear) Urine pH 6.5 (5.0-8.0) Ur Specific [place] 1.019 (1.001-1.035) Urine Protein Negative (Negative) Urine Glucose (UA) Negative (Negative) Urine Ketones Negative (Negative) Urine Blood Negative (Negative) Urine Nitrite Negative (Negative) Urine Bilirubin Negative (Negative) Urine Urobilinogen <2.0 (<2.0) mg/dL Ur Leukocyte Esterase Small H (Negative) Urine RBC 2 (0-5) /hpf Urine WBC 2 (0-5) /hpf Ur Squamous Epith Cells 2 (0-4) /hpf Urine Bacteria Moderate H (None) /hpf Urine Mucus Rare H (None) /hpf Urine HCG, Qual (Not Detectd) - Radiology Data Radiology results: report reviewed, image reviewed Disposition Clinical Impression: Left sided abdominal pain Disposition: HOME SELF-CARE Condition: Stable Instructions: Abdominal Pain (ED) Additional Instructions: Please use medication as discussed. Please follow up with family doctor if symptoms have not improved over the next two days. Please return to the emergency room if your symptoms increase or worsen or for any other concerns. Prescriptions: Dicyclomine [Bentyl] 10 mg PO TID #20 capsule Ondansetron Odt [Zofran ODT] 4 mg PO Q8HR PRN #20 tab PRN Reason: Nausea Referrals: Edgardo Inman MD [Primary Care Provider] - 1-2 days Time of Disposition: 20:43
[2016-12-31 19:14] LABS: Basophils # (A) 0.1 k/uL (0-0.2); Basophils % (A) 1 %; CH 30.2; CHCM 33.1; Eosinophils # (A) 0.3 k/uL (0-0.7); Eosinophils % (A) 2 %; HCT 40.6 % (34.0-46.0); HDW 2.61; Luc # (Auto) 0.15; Luc % (Auto) 1; Lymphocytes % (A) 22 %; MCH 29.4 pg (25.0-35.0); MCV 91.9 fL (80.0-100.0); Mean Platelet Volume 7.8; Monocytes # (A) 0.6 k/uL (0-1.0); Monocytes % (A) 4 %; Neutrophils # (A) 9.6 k/uL (1.3-7.7); Neutrophils % (A) 70 %; RBC 4.41 m/uL (3.80-5.40); RDW 14.5 % (11.5-15.5); WBC 13.8 k/uL (3.8-10.6); WBC (Perox) 13.65
[2016-12-31 19:24] LABS: ALT 37 U/L (9-52); AST 18 U/L (14-36); Alkaline Phosphatase 53 U/L (38-126); Amylase 62 U/L (30-110); Anion Gap 11 mmol/L; Blood Urea Nitrogen 16 mg/dL (7-17); Calcium 9.3 mg/dL (8.4-10.2); Carbon Dioxide 22 mmol/L (22-30); Chloride 110 mmol/L (98-107); Glucose 102 mg/dL (74-99); Non-African American GFR(MDRD) >60 (>60 ml/min/1.73 sqM); Potassium 4.4 mmol/L (3.5-5.1); Sodium 143 mmol/L (137-145); Total Bilirubin 0.2 mg/dL (0.2-1.3); Total Protein 6.5 g/dL (6.3-8.2)
[2016-12-31 19:39] LABS: Appearance,Urine Cloudy (Clear); Bacteria,Urine Moderate /hpf; Bilirubin,Urine Negative (Negative); Glucose,Urine (UA) Negative (Negative); Ketones,Urine Negative (Negative); Leukocyte Esterase,Urine Small (Negative); Mucus,Urine Rare /hpf; Nitrite,Urine Negative (Negative); PH, Urine 6.5 (5.0-8.0); Particle Count 3182; Protein,Urine Negative (Negative); RBC,Urine 2 /hpf (0-5); Specific Gravity,Urine 1.019 (1.001-1.035); Squamous Epithelial Cell,Urine 2 /hpf (0-4); UA Billing (MACRO vs. MICRO) MICRO; Urobilinogen,Urine <2.0 mg/dL (<2.0); WBC,Urine 2 /hpf (0-5)
[2016-12-31] MEDS ORDERED: RX INFO: IV CONTRAST WAS GIVEN 1 EACH MISC MISCELLANE PRN (19:45)
--- NOTE | 2016-12-31 20:27 | CT ---
EXAMINATION TYPE: CT abdomen pelvis w con DATE OF EXAM: 12/31/2016 COMPARISON: 11/16/2010 HISTORY: Patient complains of LLQ pain. CT DLP: 2060.7 mGycm Automated exposure control for dose reduction was used. TECHNIQUE: Helical acquisition of images was performed from the lung bases through the pelvis. CONTRAST: Performed without Oral Contrast and with IV Contrast, patient injected with 100 mL of Omnipaque 300. FINDINGS: Lung bases are clear of consolidation. There is no pleural effusion. Heart size is normal. Liver spleen pancreas appear normal. Gallbladder is contracted. Bile ducts are not dilated. There is no adrenal mass. Kidneys show satisfactory contrast opacification. There is no hydronephrosis. There is no retroperito jennifer adenopathy. There is no ascites. Bladder distends smoothly. There is no evidence of a pelvic mas s. Appendix appears normal. Uterus is retroverted. The bony structures are intact. IMPRESSION: NORMAL APPENDIX. NEGATIVE CT SCAN OF THE ABDOMEN AND PELVIS. NO ADVERSE CHANGE COMPARED TO OLD EXAM.
[2016-12-31 21:24] VITALS: BP 105/55; PULSE 71; RESP 20; TEMP 98.4
== END 2016-12-31 21:22 | disposition home or self-care (01) ==
LOC: EC 18:16
DX: R10.32 Left lower quadrant pain (principal); R30.0 Dysuria; E07.9 Disorder of thyroid, unspecified; M79.7 Fibromyalgia; F90.9 Attention-deficit hyperactivity disorder, unspecified type; F41.9 Anxiety disorder, unspecified; F31.9 Bipolar disorder, unspecified; Z79.3 Long term (current) use of hormonal contraceptives; Z79.899 Other long term (current) drug therapy; Z88.6 Allergy status to analgesic agent; Z88.8 Allergy status to other drugs, medicaments and biological substances
CPT/HCPCS: 99284; 96374; 96375; 36415; 80053; 82150; 83690; 85025; 81001; 81025; 87086; 74177; J2405; J1885; Q9967

== ENCOUNTER → 2017-01-17 | Outpatient (CLI) | payer OTHER ==
--- NOTE | 2017-01-17 07:55 | MR ---
MRI CERVICAL SPINE: CLINICAL HISTORY: Cervicalgia per order. TECHNIQUE: Multiplanar, multisequence imaging of the cervical spine is performed without IV contrast. COMPARISON: None. FINDINGS: Sagittal images of the cervical spine show the craniocervical junction to appear within nor mal limits. The cervical and upper thoracic spinal cord is normal in course, caliber, and signal. V ertebral alignment is straightened. The vertebral body and intravertebral disk heights are normal. Small posterior disc herniations are seen at C5-C6 and C6 on C7 levels on sagittal images effacing an terior thecal sac. The bone marrow signal intensity is within normal limits. No significant spurring is seen. Axial images show the C2-C3, C3-C4, and C4-C5 levels all to appear within normal limits. Axial images at C5-C6 level show broad-based right paracentral disc protrusion effacing anterior thec al sac nearly up to ventral surface of spinal cord and causing asymmetric mild to moderate right-side d neural foraminal narrowing. Left-sided neural foramen is patent. Axial images at C6-C7 level show broad-based left paracentral disc protrusion effacing anterior theca l sac with bilateral neural foramina felt patent. Axial images at C7-T1 level are felt within normal limits. IMPRESSION: Straightening of cervical spine with disc herniations at the C5-C6 and C6-C7 level both n oted.
== END | disposition home or self-care (01) ==
LOC: RADMRIMAIN 06:38
PROVIDERS: ATTEND Physical Medicine & Rehabilitation
DX: M50.222 Other cervical disc displacement at C5-C6 level (principal); M35.7 Hypermobility syndrome; G44.59 Other complicated headache syndrome; G44.89 Other headache syndrome; M46.1 Sacroiliitis, not elsewhere classified; M99.04 Segmental and somatic dysfunction of sacral region; F45.42 Pain disorder with related psychological factors; M47.817 Spondylosis without myelopathy or radiculopathy, lumbosacral region; E66.8 Other obesity; M79.1 Myalgia; M51.17 Intervertebral disc disorders with radiculopathy, lumbosacral region
CPT/HCPCS: 72141

== ENCOUNTER 2017-06-10 19:25 | Emergency (ER) | payer OTHER ==
[2017-06-10 19:43] VITALS: BP 127/75; PULSE 58; RESP 18; TEMP 97.2
[2017-06-10] MEDS ORDERED: KETOROLAC 60 MG/2 ML VIAL IM STA (20:56)
--- NOTE | 2017-06-10 21:11 | ED ---
Back Pain HPI - General Chief Complaint: Back Pain/Injury Stated Complaint: back pain Time Seen by Provider: 06/10/17 20:37 Source: patient, RN notes reviewed Limitations: no limitations - History of Present Illness Initial Comments: This is a 32-year-old female who presents to the emergency department with chief complaint of acute on chronic back pain. Patient states that she sees Dr. Gilmore for her chronic back pain. She states that yesterday she began to experience an increase in her pain of her lower back. She denies any new injuries or trauma. She states that she's been taking her Mobic, [place] and Tylenol extra strength with minimal relief. She's been using icy hot patches as well. Patient denies any saddle paresthesias or loss of bladder or bowel function. She denies any numbness or tingling or radiation of pain down the legs. Denies IV drug use. - Related Data Home Medications Medication Instructions Recorded Confirmed Levothyroxine Sodium [Synthroid] 50 mcg PO DAILY 05/05/14 12/31/16 traZODone HCL [Desyrel] 100 mg PO HS 04/04/15 12/31/16 Topiramate [Topiramate] 100 mg PO BID 09/08/15 12/31/16 HYDROcodone/APAP 7.5-325MG [[place] 1 tab PO TID PRN 05/01/16 12/31/16 7.5-325] Norethindrone-E.estradiol-Iron 1 tab PO HS 05/01/16 12/31/16 [Loestrin Fe 1.5-30 Tablet] Pregabalin [Lyrica] 75 mg PO BID 05/01/16 12/31/16 busPIRone HCL 15 mg PO BID 05/01/16 12/31/16 Albuterol Inhaler [Ventolin Hfa 1 - 2 puff INHALATION RT-Q6H PRN 05/23/16 Inhaler] ALPRAZolam [Xanax] 0.25 mg PO TID PRN 07/11/16 12/31/16 Lisdexamfetamine Dimesylate 40 mg PO QAM 08/21/16 12/31/16 [Vyvanse] Lidocaine 3% Cream 1 applic TOPICAL BID PRN 12/31/16 12/31/16 Meloxicam [Mobic] 15 mg PO DAILY 12/31/16 12/31/16 Venlafaxine HCl ER [Effexor Xr] 75 mg PO HS 12/31/16 12/31/16 Venlafaxine HCl [Effexor XR] 150 mg PO HS 12/31/16 12/31/16 Vitamin C/Biotin [Hair, Skin and 1 tab PO DAILY 12/31/16 12/31/16 Nails] Previous Rx's Medication Instructions Recorded Dicyclomine [Bentyl] 10 mg PO TID #20 capsule 12/31/16 Ondansetron Odt [Zofran ODT] 4 mg PO Q8HR PRN #20 tab 12/31/16 Allergies Allergy/AdvReac Type Severity Reaction Status Date / Time valacyclovir HCl Allergy Rash/Hives Verified 02/24/17 20:04 [From Valtrex] tramadol AdvReac Hallucinati Verified 02/24/17 20:04 ons Review of Systems ROS Statement: Those systems with pertinent positive or pertinent negative responses have been documented in the HPI. ROS Other: All systems not noted in ROS Statement are negative. Past Medical History Past Medical History: Asthma, GERD/Reflux, Sleep Apnea/CPAP/BIPAP, Thyroid Disorder Additional Past Medical History / Comment(s): migraines, degenerative disk, IBS , no CPAP used, fibromyalgia History of Any Multi-Drug Resistant Organisms: None Reported Past Surgical History: Breast Surgery Additional Past Surgical History / Comment(s): dental Breast biopsy July 15 negative Past Anesthesia/Blood Transfusion Reactions: No Reported Reaction, Motion Sickness Past Psychological History: ADD/ADHD, Anxiety, Bipolar, Depression Smoking Status: Never smoker Past Alcohol Use History: Rare Past Drug Use History: None Reported General Exam - General Exam Comments Initial Comments: General: Awake and alert, well-developed; in no apparent distress. HEENT: Head atraumatic, normocephalic. Pupils are equal, round and reactive to light. Extraocular movements intact. Oropharynx moist without erythema or exudate. Neck: Supple. Normal ROM. No tenderness. Cardiovascular: Regular rate and rhythm. No murmurs, rubs or gallops. Chest symmetrical. Respiratory: Lungs clear to auscultation bilaterally. No wheezes, rales or rhonchi. Normal respiratory effort with no use of accessory muscles. Musculoskeletal: Normal ROM of spine. Generalized tenderness on palpation of lumbar region. No bony point tenderness or SI joint tenderness. Patient is ambulating normally. Pedal pulses are 2+ equal and palpable bilaterally. Sensation is intact. Skin: [place], warm and dry without rashes or lesions. Neurological: Alert and oriented x3. CN II-XII grossly intact. Speech is fluent and answers are appropriate. No focal neuro deficits. Psychiatric: Normal mood and affect. No overt signs of depression or anxiety noted. Limitations: no limitations Course Vital Signs 06/10/17 19:39 Temperature 97.2 F L Pulse Rate 58 L Respiratory 18 Rate Blood Pressure 127/75 O2 Sat by Pulse 98 Oximetry Medical Decision Making - Medical Decision Making This is a 32-year-old female who presents for evaluation of acute on chronic back pain. Patient denies any new injuries or trauma. She denies saddle paresthesias or loss of bladder or bowel function. She states that her normal regimen of pain control is not working as well for her. Patient given a shot of Toradol while in the emergency department. She is in no acute distress. She 'll be discharged home. Recommended following up with her primary care provider. She is in agreement with plan and voices understanding. All questions were answered. This case was discussed with attending physician, Dr. Ordonez. Disposition Clinical Impression: Acute exacerbation of chronic low back pain Disposition: HOME SELF-CARE Condition: Good Instructions: Acute Low Back Pain (ED), Chronic Back Pain (ED) Additional Instructions: Please follow up with primary care provider within 1-2 days. Return to emergency department if symptoms should worsen or any concerns arise. Referrals: Edgardo Inman MD [Primary Care Provider] - 1-2 days Time of Disposition: 21:11
== END 2017-06-10 21:17 | disposition home or self-care (01) ==
LOC: EC 19:25
DX: G89.29 Other chronic pain (principal); M54.5 Low back pain; E07.9 Disorder of thyroid, unspecified; M79.7 Fibromyalgia; F31.9 Bipolar disorder, unspecified; F41.9 Anxiety disorder, unspecified; F90.9 Attention-deficit hyperactivity disorder, unspecified type; Z79.1 Long term (current) use of non-steroidal anti-inflammatories (NSAID); Z79.3 Long term (current) use of hormonal contraceptives; Z79.899 Other long term (current) drug therapy; Z88.6 Allergy status to analgesic agent; Z88.8 Allergy status to other drugs, medicaments and biological substances
CPT/HCPCS: 99282; 96372; J1885

== ENCOUNTER 2017-06-20 17:45 | Emergency (ER) | payer OTHER ==
[2017-06-20 17:56] VITALS: BP 120/66; PULSE 93; RESP 18; TEMP 98.3
[2017-06-20] MEDS ORDERED: KETOROLAC 30 MG/ML 1 ML VIAL IM STA (18:10)
--- NOTE | 2017-06-20 18:38 | XR ---
EXAMINATION TYPE: XR lumbar spine 2 or 3V DATE OF EXAM: 06/20/2017 CLINICAL HISTORY: pain TECHNIQUE: Three views of the lumbar spine are submitted. COMPARISON: None. FINDINGS: There are 5 lumbar type vertebral bodies identified. The lumbar spine shows satisfactory alignment w ithout evidence of acute fracture or dislocation. Vertebral body heights are within normal limits. Disc spaces are within normal limits. The overlying soft tissue appears unremarkable. IMPRESSION: No acute fracture or dislocation is seen in the lumbar spine. ICD 10 NO FRACTURE, INITIAL EVALUATION
--- NOTE | 2017-06-20 18:41 | ED ---
Back Pain [facility] - General Chief Complaint: Back Pain/Injury Stated Complaint: BACK PAIN Time Seen by Provider: 06/20/17 18:04 Source: patient, RN notes reviewed Limitations: no limitations - History of Present Illness Initial Comments: This is a 32-year-old female who presents to the emergency department with chief complaint of acute on chronic back pain. Patient sees pain management. She states that she contacted pain management and they prescribed her a course of steroids. She states that they told her to stop taking her Mobic and take ibuprofen instead. Patient has been seen here a couple of weeks ago and was given Toradol. Patient states that that made her feel a lot better. She denies any new injuries or trauma. She denies any recent falls. She denies saddle paresthesias or loss of bladder or bowel function. Denies numbness or tingling or radiation of pain down the legs. She has no difficulty with ambulation. Denies IV drug use. - Related Data Home Medications Medication Instructions Recorded Confirmed Levothyroxine Sodium [Synthroid] 50 mcg PO DAILY 05/05/14 06/20/17 traZODone HCL [Desyrel] 100 mg PO HS 04/04/15 06/20/17 Topiramate [Topiramate] 100 mg PO BID 09/08/15 06/20/17 HYDROcodone/APAP 7.5-325MG [[place] 1 tab PO TID PRN 05/01/16 06/20/17 7.5-325] Norethindrone-E.estradiol-Iron 1 tab PO HS 05/01/16 06/20/17 [Loestrin Fe 1.5-30 Tablet] Pregabalin [Lyrica] 75 mg PO BID 05/01/16 06/20/17 busPIRone HCL 15 mg PO BID 05/01/16 06/20/17 Albuterol Inhaler [Ventolin Hfa 1 - 2 puff INHALATION RT-Q6H PRN 05/23/16 Inhaler] ALPRAZolam [Xanax] 0.25 mg PO TID PRN 07/11/16 06/20/17 Lidocaine 3% Cream 1 applic TOPICAL BID PRN 12/31/16 06/20/17 Meloxicam [Mobic] 15 mg PO DAILY 12/31/16 06/20/17 Venlafaxine HCl ER [Effexor Xr] 75 mg PO HS 12/31/16 06/20/17 Venlafaxine HCl [Effexor XR] 150 mg PO HS 12/31/16 06/20/17 Vitamin C/Biotin [Hair, Skin and 1 tab PO DAILY 12/31/16 06/20/17 Nails] Lisdexamfetamine Dimesylate 50 mg PO QAM 06/20/17 06/20/17 [Vyvanse] Previous Rx's Medication Instructions Recorded Dicyclomine [Bentyl] 10 mg PO TID #20 capsule 12/31/16 Ondansetron Odt [Zofran ODT] 4 mg PO Q8HR PRN #20 tab 12/31/16 Allergies Allergy/AdvReac Type Severity Reaction Status Date / Time valacyclovir HCl Allergy Rash/Hives Verified 06/20/17 18:33 [From Valtrex] tramadol AdvReac Hallucinati Verified 06/20/17 18:33 ons Review of Systems ROS Statement: Those systems with pertinent positive or pertinent negative responses have been documented in the HPI. ROS Other: All systems not noted in ROS Statement are negative. Past Medical History Past Medical History: Asthma, GERD/Reflux, Sleep Apnea/CPAP/BIPAP, Thyroid Disorder Additional Past Medical History / Comment(s): migraines, degenerative disk, IBS , no CPAP used, fibromyalgia History of Any Multi-Drug Resistant Organisms: None Reported Past Surgical History: Breast Surgery Additional Past Surgical History / Comment(s): dental Breast biopsy July 15 negative Past Anesthesia/Blood Transfusion Reactions: No Reported Reaction, Motion Sickness Past Psychological History: ADD/ADHD, Anxiety, Bipolar, Depression Smoking Status: Never smoker Past Alcohol Use History: Rare Past Drug Use History: None Reported General Exam - General Exam Comments Initial Comments: General: Awake and alert, well-developed; in no apparent distress. HEENT: Head atraumatic, normocephalic. Pupils are equal, round and reactive to light. Extraocular movements intact. Oropharynx moist without erythema or exudate. Neck: Supple. Normal ROM. No tenderness. Cardiovascular: Regular rate and rhythm. No murmurs, rubs or gallops. Chest symmetrical. Respiratory: Lungs clear to auscultation bilaterally. No wheezes, rales or rhonchi. Normal respiratory effort with no use of accessory muscles. Musculoskeletal: Normal ROM, no tenderness bilateral upper and lower extremities. Ambulating normally. Normal range of motion of spine. No vertebral point tenderness or SI joint tenderness. Pedal pulses are 2+ equal and palpable bilaterally. Skin: [place], warm and dry without rashes or lesions. Neurological: Alert and oriented x3. CN II-XII grossly intact. Speech is fluent and answers are appropriate. No focal neuro deficits. Psychiatric: Normal mood and affect. No overt signs of depression or anxiety noted. Limitations: no limitations Course Vital Signs 06/20/17 17:53 Temperature 98.3 F Pulse Rate 93 Respiratory 18 Rate Blood Pressure 120/66 O2 Sat by Pulse 100 Oximetry Medical Decision Making - Medical Decision Making This is a 32-year-old female who presents to the emergency department with chief complaint mechanical chronic back pain. Patient denies any recent falls coming injuries or trauma. She denies saddle paresthesias or loss of bladder or bowel function. She denies radiation of pain down the legs or numbness and tingling. X-rays of lumbar spine were obtained and revealed no abnormalities. Patient given IM Toradol in the emergency department. Patient is in no acute distress and will be discharged home. She is in agreement with plan and voices understanding. All questions were answered. - Radiology Data Radiology results: report reviewed Lumbar spine x-ray findings: There are 5 lumbar type vertebral bodies identified. The lumbar spine show satisfactory alignment without evidence of acute fracture or dislocation. Vertebral body heights are within normal limits. Disc spaces are within normal limits. The overlying soft tissue appears unremarkable. Impression: No acute fracture or dislocation is seen in the lumbar spine. Disposition Clinical Impression: Acute exacerbation of chronic low back pain Disposition: HOME SELF-CARE Condition: Good Instructions: Chronic Back Pain (ED) Additional Instructions: Please follow up with primary care provider within 1-2 days. Return to emergency department if symptoms should worsen or any concerns arise. Referrals: Edgardo Inman MD [Primary Care Provider] - 1-2 days Time of Disposition: 19:22
== END 2017-06-20 19:26 | disposition home or self-care (01) ==
LOC: EC 17:45
DX: G89.29 Other chronic pain (principal); M54.5 Low back pain; E07.9 Disorder of thyroid, unspecified; F32.9 Major depressive disorder, single episode, unspecified; F41.9 Anxiety disorder, unspecified; F90.9 Attention-deficit hyperactivity disorder, unspecified type; Z79.1 Long term (current) use of non-steroidal anti-inflammatories (NSAID); Z79.3 Long term (current) use of hormonal contraceptives; Z79.899 Other long term (current) drug therapy; Z88.5 Allergy status to narcotic agent; Z88.8 Allergy status to other drugs, medicaments and biological substances; Z86.69 Personal history of other diseases of the nervous system and sense organs
CPT/HCPCS: 72100; 99283; 96372; J1885

== ENCOUNTER 2017-07-19 16:15 | Inpatient (IN) | payer OTHER ==
[2017-07-19] MEDS ORDERED: ACETAMINOPHEN TAB 500 MG TAB PO STA (16:46)
--- NOTE | 2017-07-19 16:53 | ED ---
General Adult HPI - General Chief complaint: Chest Pain Stated complaint: CHEST PAIN Time Seen by Provider: 07/19/17 16:23 Source: patient, RN notes reviewed, old records reviewed Mode of arrival: wheelchair Limitations: no limitations - History of Present Illness Initial comments: Chief complaint and history of present illness a 32-year-old female here with her significant other. Patient reports she started having anterior chest wall discomfort approximately one hour ago. Increased taking deep breaths increase the palpated her chest. She states she has a past history of bipolar disorder as well as fibromyalgia and anxiety. She states this feels worse than an anxiety attack. Mild nausea last night slight nausea this morning. No vomiting. No radiation of pain arm neck or back. Again is very reproducible by taking a deep breath or pushes on her own chest with actively and passively. Patient denies any trauma. She does report though that she does not lift anything at work because he can readily cause discomfort to her back because of her fibromyalgia. - Related Data Home Medications Medication Instructions Recorded Confirmed Levothyroxine Sodium [Synthroid] 50 mcg PO DAILY 05/05/14 07/19/17 traZODone HCL [Desyrel] 100 mg PO HS 04/04/15 07/19/17 HYDROcodone/APAP 7.5-325MG [[place] 1 tab PO TID PRN 05/01/16 07/19/17 7.5-325] Norethindrone-E.estradiol-Iron 1 tab PO HS 05/01/16 07/19/17 [Loestrin Fe 1.5-30 Tablet] Pregabalin [Lyrica] 75 mg PO BID 05/01/16 07/19/17 busPIRone HCL 15 mg PO BID 05/01/16 07/19/17 Albuterol Inhaler [Ventolin Hfa 2 puff INHALATION RT-Q6H PRN 05/23/16 07/19/17 Inhaler] Meloxicam [Mobic] 15 mg PO DAILY 12/31/16 07/19/17 Vitamin C/Biotin [Hair, Skin and 1 tab PO DAILY 12/31/16 07/19/17 Nails] Lisdexamfetamine Dimesylate 50 mg PO QAM 06/20/17 07/19/17 [Vyvanse] Famotidine [Pepcid] 20 mg PO BID 07/19/17 07/19/17 Topiramate [Trokendi Xr] 200 mg PO DAILY 07/19/17 07/19/17 Venlafaxine HCl [Effexor XR] 225 mg PO HS 07/19/17 07/19/17 Previous Rx's Medication Instructions Recorded Ondansetron Odt [Zofran ODT] 4 mg PO Q8HR PRN #20 tab 12/31/16 Allergies Allergy/AdvReac Type Severity Reaction Status Date / Time tramadol Allergy Rash/Hives Verified 07/19/17 16:29 valacyclovir HCl AdvReac BLURRED Verified 07/19/17 16:29 [From Valtrex] VISION Review of Systems ROS Statement: Those systems with pertinent positive or pertinent negative responses have been documented in the HPI. Review of systems. Patient denies any visual acuity changes no headache no stiff neck no neck pain. The chest discomfort or the anterior chest wall which increases with movement deep breathing palpation. No upper abdominal discomfort though she did have mild discomfort last week. No back pain. No difficulty with urinating or bowel movements. No neuro deficits. All systems are reviewed. Past medical problem significant fibromyalgia, asthma, GERD, sleep apnea with CPAP, hypothyroidism, migraines last was one month ago. Degenerative disc disease. And history of bipolar disorder associated with depression and anxiety and a eating disorder of binge eating. Patient denies any reason BX overly anxious at this time. Patient's surgeries include breast biopsy which was negative. She also has had her wisdom teeth out. Family history an uncle had heart disease at age 39. Cancers in the family include esophageal and lung. Patient has ALLERGIES to valacyclovir and tramadol. Nonsmoker drink alcohol socially. ROS Other: All systems not noted in ROS Statement are negative. Past Medical History Past Medical History: Asthma, GERD/Reflux, Sleep Apnea/CPAP/BIPAP, Thyroid Disorder Additional Past Medical History / Comment(s): migraines, degenerative disk, IBS , no CPAP used, fibromyalgia History of Any Multi-Drug Resistant Organisms: None Reported Past Surgical History: Breast Surgery Additional Past Surgical History / Comment(s): dental Breast biopsy July 15 negative Past Anesthesia/Blood Transfusion Reactions: No Reported Reaction, Motion Sickness Past Psychological History: ADD/ADHD, Anxiety, Bipolar, Depression Smoking Status: Never smoker Past Alcohol Use History: Rare Past Drug Use History: None Reported General Exam - General Exam Comments Initial Comments: General: The patient is awake and alert, change in emergency room because of chest wall pain that increases with twisting turning movement, deep breathing and palpation. No radiation. History of fibromyalgia. Vital signs show temperature 97.0 pulse 84 respiratory rate 18 pulse ox on percent room air blood pressure 135/86 Eye: Pupils are equal, round and reactive to light, extra-ocular movements are intact ; there is normal conjunctiva bilaterally. No signs of icterus. Ears, nose, mouth and throat: There are moist mucous membranes and no oral lesions. Neck: The neck is supple, there is no tenderness, no anterior cervical lymphadenopathy , thyroid not enlarged. Cardiovascular: There is a regular rate and rhythm. No murmur, rub or gallop is appreciated. Palpation of anterior chest wall causes the pain to be retreated. Flexing the chest muscles re-creates the pain to the anterior chest wall as well. Respiratory: Lungs are clear to auscultation, respirations are non-labored, breath sounds are equal. No wheezes, stridor, rales, or rhonchi. Deep breathing read reads anterior chest wall pain that brought the patient to the emergency room. Gastrointestinal: Soft, non-distended, non-tender abdomen without masses or organomegaly noted. There is no rebound or guarding present. No CVA tenderness. Bowel sounds are unremarkable. Back: There is no tenderness to palpation in the midline. There is no obvious deformity. No rashes noted. Musculoskeletal: Normal ROM, no tenderness, There is no pedal edema. There is no calf tenderness or swelling. Sensation intact. Pulses equal bilaterally 2+. History of chronic back pain associated with fibromyalgia. Neurological: CN II-XII intact, There are no obvious motor or sensory deficits. Coordination appears grossly intact. Speech is normal. No complaint of weakness, numbness, tingling. No neuro deficits appreciated. Skin: Skin is warm and dry and no rashes or lesions are noted. Tattoo left shoulder blade Psychiatric: History of bipolar disorder as well as eating disorder with binging. Reports and history of depression and occasional anxiety attacks. Denies any good reason as to why should be depressed at this time or anxious. She is under the care of a psychiatrist. Limitations: no limitations Course Vital Signs 07/19/17 07/19/17 07/19/17 16:18 18:01 19:00 Temperature 97.0 F L Pulse Rate 84 76 73 Respiratory 18 16 16 Rate Blood Pressure 135/86 115/58 102/59 O2 Sat by Pulse 100 99 99 Oximetry EKG Findings - EKG Comments: EKG Findings:: EKG was done and reviewed at 1648 showing normal sinus rhythm no acute ST elevation no ectopy. Rate 71 ID interval is 158 QRS [address] QT [address] Ordonez no old EKG to compare to at this time. Medical Decision Making - Medical Decision Making Medical decision making; the patient has come in because of anterior chest wall discomfort is reproducible by twisting turning deep breathing and palpation. No radiation. Labs show white count of 7.8 hemoglobin 14 hematocrit 41. Potassium is 4.0 urine test negative. Troponin less than 0.012. BUN 19 creatinine 0.9 and GFR 84. The patient's glucose 78. She is not diabetic is not taking medications for diabetes. She did say she was hungry she does have a history of eating disorder binging. She was given a sandwich and drink here. Chest x-ray is done, is done AP and lateral views and reviewed by radiologist his impression is; no acute cardiopulmonary process as reported by Dr. Florez Patient remains mildly anxious. He did complain of discomfort down her left arm. Still having discomfort anterior chest wall with deep breathing. Repeat EKG will be done. Repeat EKG was done at 1818 showing mild changes in the V3, 4 and 5. Copies of EKGs were sent to the on-call agent broker Dr. Shirley. The patient case is also discussed with Dr. garff patient be admitted for further evaluation. Dr. Shirley wants to be informed of the second troponin. The patient's to be admitted for further evaluation and observation. - Lab Data Result diagrams: 07/19/17 16:42 07/19/17 16:42 Lab Results 07/19/17 07/19/17 07/19/17 Range/Units 16:42 16:42 16:42 WBC 7.8 (3.8-10.6) k/uL RBC 4.88 (3.80-5.40) m/uL Hgb 14.1 (11.4-16.0) gm/dL Hct 41.9 (34.0-46.0) % MCV 85.8 (80.0-100.0) fL MCH 29.0 (25.0-35.0) pg MCHC 33.7 (31.0-37.0) g/dL RDW 13.1 (11.5-15.5) % Plt Count 332 (150-450) k/uL Neutrophils % 53 % Lymphocytes % 38 % Monocytes % 4 % Eosinophils % 2 % Basophils % 1 % Neutrophils # 4.2 (1.3-7.7) k/uL Lymphocytes # 3.0 (1.0-4.8) k/uL Monocytes # 0.3 (0-1.0) k/uL Eosinophils # 0.2 (0-0.7) k/uL Basophils # 0.1 (0-0.2) k/uL PT (9.0-12.0) sec INR (<1.2) APTT (22.0-30.0) sec D-Dimer (<0.60) mg/L FEU Sodium 144 (137-145) mmol/L Potassium 4.0 (3.5-5.1) mmol/L Chloride 111 H (98-107) mmol/L Carbon Dioxide 20 L (22-30) mmol/L Anion Gap 13 mmol/L BUN 19 H (7-17) mg/dL Creatinine 0.90 (0.52-1.04) mg/dL Est GFR (CKD-EPI)AfAm >90 (>60 ml/min/1.73 sqM) Est GFR (CKD-EPI)NonAf 84 (>60 ml/min/1.73 sqM) Glucose 78 (74-99) mg/dL Calcium 9.7 (8.4-10.2) mg/dL Magnesium 2.0 (1.6-2.3) mg/dL Total Bilirubin 0.3 (0.2-1.3) mg/dL AST 24 (14-36) U/L ALT 36 (9-52) U/L Alkaline Phosphatase 69 (38-126) U/L Total Creatine Kinase 115 (30-135) U/L CK-MB (CK-2) 1.2 (0.0-2.4) ng/mL CK-MB (CK-2) Rel Index 1.0 Troponin I <0.012 (0.000-0.034) ng/mL Total Protein 7.4 (6.3-8.2) g/dL Albumin 4.3 (3.5-5.0) g/dL Urine HCG, Qual (Not Detectd) 07/19/17 07/19/17 Range/Units 16:42 17:03 WBC (3.8-10.6) k/uL RBC (3.80-5.40) m/uL Hgb (11.4-16.0) gm/dL Hct (34.0-46.0) % MCV (80.0-100.0) fL MCH (25.0-35.0) pg MCHC (31.0-37.0) g/dL RDW (11.5-15.5) % Plt Count (150-450) k/uL Neutrophils % % Lymphocytes % % Monocytes % % Eosinophils % % Basophils % % Neutrophils # (1.3-7.7) k/uL Lymphocytes # (1.0-4.8) k/uL Monocytes # (0-1.0) k/uL Eosinophils # (0-0.7) k/uL Basophils # (0-0.2) k/uL PT 10.4 (9.0-12.0) sec INR 1.1 (<1.2) APTT 25.2 (22.0-30.0) sec D-Dimer 0.49 (<0.60) mg/L FEU Sodium (137-145) mmol/L Potassium (3.5-5.1) mmol/L Chloride (98-107) mmol/L Carbon Dioxide (22-30) mmol/L Anion Gap mmol/L BUN (7-17) mg/dL Creatinine (0.52-1.04) mg/dL Est GFR (CKD-EPI)AfAm (>60 ml/min/1.73 sqM) Est GFR (CKD-EPI)NonAf (>60 ml/min/1.73 sqM) Glucose (74-99) mg/dL Calcium (8.4-10.2) mg/dL Magnesium (1.6-2.3) mg/dL Total Bilirubin (0.2-1.3) mg/dL AST (14-36) U/L ALT (9-52) U/L Alkaline Phosphatase (38-126) U/L Total Creatine Kinase (30-135) U/L CK-MB (CK-2) (0.0-2.4) ng/mL CK-MB (CK-2) Rel Index Troponin I (0.000-0.034) ng/mL Total Protein (6.3-8.2) g/dL Albumin (3.5-5.0) g/dL Urine HCG, Qual Not Detected (Not Detectd) Disposition Clinical Impression: Chest pain Disposition: ADMITTED IP TO THIS HOSP Condition: Fair Referrals: Edgardo Inman MD [Primary Care Provider] - 1-2 days
[2017-07-19 17:08] LABS: Basophils # (A) 0.1 k/uL (0-0.2); Basophils % (A) 1 %; Eosinophils # (A) 0.2 k/uL (0-0.7); Eosinophils % (A) 2 %; HCT 41.9 % (34.0-46.0); HGB 14.1 gm/dL (11.4-16.0); Lymphocytes % (A) 38 %; MCHC 33.7 g/dL (31.0-37.0); MCV 85.8 fL (80.0-100.0); Mean Platelet Volume 7.3; Monocytes # (A) 0.3 k/uL (0-1.0); Monocytes % (A) 4 %; Neutrophils # (A) 4.2 k/uL (1.3-7.7); Neutrophils % (A) 53 %; Platelet Count 332 k/uL (150-450); RBC 4.88 m/uL (3.80-5.40); RDW 13.1 % (11.5-15.5); WBC 7.8 k/uL (3.8-10.6)
[2017-07-19 17:09] LABS: ALT 36 U/L (9-52); AST 24 U/L (14-36); Albumin 4.3 g/dL (3.5-5.0); Alkaline Phosphatase 69 U/L (38-126); Anion Gap 13 mmol/L; Blood Urea Nitrogen 19 mg/dL (7-17); Calcium 9.7 mg/dL (8.4-10.2); Carbon Dioxide 20 mmol/L (22-30); Chloride 111 mmol/L (98-107); Glucose 78 mg/dL (74-99); Sodium 144 mmol/L (137-145); Total Bilirubin 0.3 mg/dL (0.2-1.3); Total Protein 7.4 g/dL (6.3-8.2)
[2017-07-19 17:13] LABS: D-Dimer 0.49 mg/L FEU (<0.60); INR 1.1 (<1.2); Partial Thromboplastin Time 25.2 sec (22.0-30.0); Prothrombin Time 10.4 sec (9.0-12.0)
[2017-07-19 17:23] LABS: Creatine Kinase 115 U/L (30-135)
[2017-07-19 17:35] LABS: Creatine Kinase MB 1.2 ng/mL (0.0-2.4); Troponin I <0.012 ng/mL (0.000-0.034)
--- NOTE | 2017-07-19 17:45 | XR ---
EXAMINATION TYPE: XR chest 2V DATE OF EXAM: 07/19/2017 COMPARISON: Prior chest x-ray 05/02/2016 HISTORY: Chest pain TECHNIQUE: Frontal and lateral views of the chest are obtained. FINDINGS: There is no focal air space opacity, pleural effusion, or pneumothorax seen. The cardiac silhouette size is within normal limits. The osseous structures are intact. IMPRESSION: No acute cardiopulmonary process.
[2017-07-19] MEDS ORDERED: IBUPROFEN 400 MG TAB PO PRN (19:14)
[2017-07-19] MEDS ORDERED: NALOXONE 0.4 MG/ML 1 ML VIAL IV PRN (19:14)
[2017-07-19] MEDS ORDERED: SODIUM CHLORIDE 0.9% 500 ML IV ONE (19:38)
[2017-07-19] MEDS: SODIUM CHLORIDE 0.9% 1,000 ML IV SCH (20:06)
[2017-07-19] MEDS ORDERED: ASPIRIN 325 MG TAB PO STA (20:25)
[2017-07-19 20:42] VITALS: BMI 40.5
[2017-07-19] MEDS: NITROGLYCERIN 0.3MG/HR PATCH TRANSDERM SCH (20:49)
[2017-07-19] MEDS: FAMOTIDINE 20 MG TAB PO SCH (20:49)
[2017-07-19 23:48] LABS: Creatine Kinase 90 U/L (30-135)
[2017-07-20 00:02] LABS: Creatine Kinase MB 0.8 ng/mL (0.0-2.4); Troponin I <0.012 ng/mL (0.000-0.034)
[2017-07-20] MEDS: busPIRone HCl 5 MG TAB PO SCH ×3 (00:02→20:22)
[2017-07-20] MEDS: traZODone HCL 100 MG TAB PO SCH ×2 (00:02→19:23)
[2017-07-20] MEDS: VENLAFAXINE HCL ER 75 MG CAP PO SCH ×2 (00:03→19:21)
[2017-07-20] MEDS: ACETAMINOPHEN TAB 325 MG TAB PO PRN ×2 (00:08→13:00)
[2017-07-20] MEDS: PREGABALIN 75 MG CAP PO SCH ×2 (00:10→19:25)
[2017-07-20 06:12] LABS: Creatine Kinase 74 U/L (30-135)
[2017-07-20 06:24] LABS: Creatine Kinase MB 0.7 ng/mL (0.0-2.4); Troponin I <0.012 ng/mL (0.000-0.034)
[2017-07-20] MEDS: LEVOTHYROXINE 50 MCG TAB PO SCH (06:54)
[2017-07-20] MEDS: SODIUM CHLORIDE 0.9% 1,000 ML IV SCH (08:04)
[2017-07-20] MEDS: MELOXICAM 7.5 MG TAB PO SCH (08:05)
[2017-07-20] MEDS: NITROGLYCERIN 0.3MG/HR PATCH TRANSDERM SCH (08:05)
[2017-07-20] MEDS: FAMOTIDINE 20 MG TAB PO SCH ×2 (08:05→19:22)
[2017-07-20] MEDS: NON-FORMULARY DRUG (Lisdexamfetamine Dimesylate [Vyvanse] 50 MG) PO SCH (08:06)
[2017-07-20] MEDS: TOPIRAMATE 200 MG PO SCH (08:06)
--- NOTE | 2017-07-20 09:27 | CONS ---
CONSULTATION Mary Calhoun a 32-year-old female presenting with dizziness, elevated blood pressure. She was at work when she started experiencing dizziness and was noted to have an elevated blood pressure. She had some nausea. She also had chest discomfort in the upper part of the chest just below her neck. A 12-lead ECG does not show any ST-segment abnormalities. Cardiac enzymes have been normal. D-dimer is normal and she is brought into the hospital. PAST HISTORY: Past history of bipolar disorder, fibromyalgia, anxiety. MEDICATIONS: Home medications include levothyroxine, trazodone, hydrocodone, control pills, Lyrica, albuterol, Mobic, vitamin C, Pepcid, Effexor. ALLERGIES: Allergies to VAL[place]REX. REVIEW OF SYSTEMS: No fever, chills, or rigors. No cough or expectoration. Mild nausea. No hematuria or dysuria. No strokes or seizures. SOCIAL HISTORY: She is a never smoker. Past history of obstructive sleep apnea on a BiPAP mask, thyroid disorder, migraines, states she has fibromyalgia. She also had history of anxiety disorder, bipolar disorder. She is a never smoker. PHYSICAL EXAMINATION: On examination, her blood pressure is 140 systolic. In the ER, her blood pressure is 135/86 mmHg and 115/58 mmHg. Head and neck examination normal. Heart sounds are normal. Lungs are clear to auscultation. Extremities are warm, no edema. LABS: Labs are reviewed. D-dimer is normal and so her troponins and EKG is normal. IMPRESSION: 1. Atypical chest discomfort. 2. Morbid obesity. 3. Elevated blood pressure reading without diagnosis of hypertension. SUGGEST: 1. From a cardiac standpoint, I would recommend an exercise stress echo to assess her blood pressure response as well as rule out any underlying ischemia because of chest discomfort. If this is normal, she may continue to follow up with her primary care physician. No further cardiac workup indicated. 2. Weight reduction and home blood pressure monitoring will be recommended and low- salt diet. MMODL / IJN: [id number] /
[2017-07-20 09:55] VITALS: RESP 18
[2017-07-20] MEDS ORDERED: BISACODYL 10 MG SUPP RECTAL PRN (14:52)
[2017-07-20] MEDS ORDERED: ONDANSETRON 4 MG/2 ML VIAL IVP PRN (14:52)
[2017-07-20] MEDS ORDERED: CALCIUM CARBONATE 500 MG CHEWABLE PO PRN (14:52)
[2017-07-20] MEDS ORDERED: MELATONIN 3 MG TABLET PO PRN (14:52)
[2017-07-20] MEDS ORDERED: LORazepam 0.5 MG TAB PO PRN (14:52)
[2017-07-20] MEDS ORDERED: LACTULOSE 20 GM/30 ML CUP PO PRN (14:52)
[2017-07-20] MEDS ORDERED: NALOXONE 0.4 MG/ML 1 ML VIAL IV PRN (14:52)
--- NOTE | 2017-07-20 15:54 | HP ---
HISTORY AND PHYSICAL DATE OF ADMISSION: 07/19/2017 PRESENTING COMPLAINT: Not feeling well. HISTORY OF PRESENTING COMPLAINT: This is a 32-year-old patient of Dr. Inman whose chronic stable medical conditions include asthma, GERD, irritable bowel syndrome. Patient is here with her . Patient also has chronic stable medical conditions that include anxiety and depression. The patient was at work yesterday when she had a multitude of symptoms. She felt nauseated, dizzy and a little bit shaky. 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 The patient for 2 weeks has been having also some stuttering, she thinks, and difficulty finding her words sometimes. Patient also felt left arm numbness and tingling in the left foot. She also thinks she may have felt a bit weak in the left arm. She also had some sharp chest pains; hence she was admitted. Patient has also had panic attacks in the past, she thinks. is at the bedside. REVIEW OF SYSTEMS: CONSTITUTIONAL: None. HEENT: None. RESPIRATORY: None. CARDIOVASCULAR: As above. GASTROINTESTINAL: Heartburn. GENITOURINARY: None. MUSCULOSKELETAL: None. DERMATOLOGICAL: None. HEMATOLOGICAL: None. LYMPHATICS: None. PSYCHIATRY: As above. NEUROLOGICAL: As above. PAST MEDICAL HISTORY: 1. Intermittent asthma. 2. GERD. 3. Irritable bowel syndrome. 4. Depression. 5. Anxiety. The patient did have a sleep study but never got the results back. PAST SURGICAL HISTORY: Breast surgery. SOCIAL HISTORY: The patient is a [employer]. Alcohol occasionally. Does not smoke. Lives with her . FAMILY HISTORY: Reviewed; noncontributory to presentation. HOME MEDICATIONS: 1. Lyrica 150 mg at bedtime. 2. Desyrel 100 mg at bedtime. 3. Effexor XR 225 mg at bedtime. 4. Zofran 4 mg q.8 p.r.n. 5. Loestrin 1 tablet at bedtime. 6. [place] 7.5 one tablet p.o. t.i.d. p.r.n. 7. Ventolin HFA 2 puffs q.6 p.r.n. 8. Buspirone 50 mg p.o. b.i.d. 9. Vitamin C, biotin 1 tablet p.o. daily. 10.Trokendi XR 200 mg p.o. daily. 11.Mobic 50 mg p.o. daily. 12.Vyvanse 50 mg p.o. daily. 13.Synthroid 50 mcg p.o. daily. 14.Pepcid 20 mg p.o. b.i.d. ALLERGIES: 1. TRAMADOL. 2. VALACYCLOVIR. PHYSICAL EXAMINATION: VITAL SIGNS ON PRESENTATION: Temperature 97, pulse 84, respiration 18, blood pressure 135/86, pulse ox 100% on room air. GENERAL APPEARANCE: Well built, BMI 40.5. Sitting up. Slightly anxious-appearing. EYES: Pupils equal. Conjunctivae normal. HEENT: External appearance of nose and ears normal. Oral cavity normal. NECK: JVD not raised. Mass not palpable. RESPIRATORY: Effort normal. Lungs are clear. CARDIOVASCULAR: First and second sounds normal. No edema. ABDOMEN: Soft, nontender. Liver and spleen not palpable. LYMPHATIC: No lymph node palpable in neck or axillae. PSYCHIATRY: Alert and oriented x3. Mood and affect slightly anxious-appearing. NEUROLOGICAL: Pupils equal. No facial asymmetry. Some decreased sensation on left side of the face. Power in the left side is 4/5. Power in the left leg is 4/5. Some decreased sensation both in the arm and the leg. Patient's speech is very slightly slow. INVESTIGATIONS: White count 7.8, hemoglobin 14.1, potassium 4.0, BUN 19, creatinine 0.90, troponin negative. Urine HCG negative. ASSESSMENT: 1. This is a patient who has had a multitude of symptoms. It may be noted that the patient has been having some trouble finding words for last 2 weeks, though her never noticed that. Patient has some weakness on the left side. Stroke workup needs to be done and we will also look at demyelinating disorders, given her young age. 2. Atypical chest pain, for which Cardiology was consulted. 3. Morbid obesity with body mass index of 40.5. 4. Intermittent asthma. 5. Gastroesophageal reflux disease. 6. Irritable bowel syndrome. 7. Anxiety, depression not otherwise specified. 8. Hypothyroidism. PLAN: Home medications are resumed. Patient is put on aspirin. Neuro checks are in place. CT scan of the brain was ordered. Carotid Doppler and 2D echo. Neurology is also ordered. Care was discussed with the patient and at the bedside. The patient will need 2-night stay to do her workup and patient will be made inpatient. MMODL / IJN: [id number] /
--- NOTE | 2017-07-20 16:02 | US ---
EXAMINATION TYPE: US carotid duplex BILAT DATE OF EXAM: 07/20/2017 COMPARISON: NONE CLINICAL HISTORY: left sided weakness. EXAM MEASUREMENTS: RIGHT: Peak Systolic Velocity (PSV) cm/sec ----- Right CCA: 81.3 ----- Right ICA: 75.9 ----- Right ECA: 66.4 ICA/CCA ratio: 0.9 RIGHT: End Diastole cm/sec ----- Right CCA: 33.3 ----- Right ICA: 47.4 ----- Right ECA: 15.3 LEFT: Peak Systolic Velocity (PSV) cm/sec ----- Left CCA: 68.6 ----- Left ICA: 86.8 ----- Left ECA: 52.6 ICA/CCA ratio: 1.3 LEFT: End Diastole cm/sec ----- Left CCA: 22.3 ----- Left ICA: 42.7 ----- Left ECA: 11.4 VERTEBRALS (direction of flow): Right Vertebral: Antegrade Left Vertebral: Antegrade Rhythm: Normal No evident plaque with no significant velocity increases seen bilaterally. IMPRESSION: No hemodynamically significant stenosis within either carotid arterial system as visuali zed.
[2017-07-20] MEDS: ENOXAPARIN 40 MG/0.4 ML SYRINGE SQ SCH (16:16)
[2017-07-20] MEDS: ASPIRIN 81 MG PO SCH (16:17)
--- NOTE | 2017-07-20 17:52 | ECHOF ---
Referral Reason:r/o thrombus MEASUREMENTS -------- HEIGHT: 170.2 cm WEIGHT: 117.0 kg BP: IVSd: 1.2 cm (0.6 - 1.1) LVIDd: 4.1 cm (3.9 - 5.3) LVPWd: 1.3 cm (0.6 - 1.1) IVSs: 1.4 cm LVIDs: 1.5 cm LVPWs: 1.5 cm Ao Diam: 3.4 cm (2.0 - 3.7) AV Cusp: 2.3 cm (1.5 - 2.6) LA Diam: 3.6 cm (2.7 - 3.8) MV EXCURSION: 15.965 mm (> 18.000) MV EF SLOPE: 120 mm/s (70 - 150) EPSS: 0.6 cm MV E Dale: 1.04 m/s MV DecT: 239 ms MV A Dale: 0.63 m/s MV E/A Ratio: 1.64 RAP: 5.00 mmHg RVSP: 20.33 mmHg FINDINGS -------- Sinus rhythm. This was a technically good study. The left ventricular size is normal. There is mild concentric left ventricular hypertrophy. Overa ll left ventricular systolic function is normal with, an EF between 55 - 60 %. The right ventricle is normal in size and function. The left atrium is normal in size. The right atrium is normal in size. The aortic valve is trileaflet, and appears structurally normal. No aortic stenosis or regurgitation. The mitral valve is normal. There is trace to mild mitral regurgitation. Mild tricuspid regurgitation present. The right ventricular systolic pressure, as measured by Doppl er, is 20.33mmHg. There is no pulmonic regurgitation present. The aortic root size is normal. There is no pericardial effusion. CONCLUSIONS -------- 1. Sinus rhythm. 2. This was a technically good study. 3. The left ventricular size is normal. 4. There is mild concentric left ventricular hypertrophy. 5. Overall left ventricular systolic function is normal with, an EF between 55 - 60 %. 6. The left atrium is normal in size. 7. The aortic valve is trileaflet, and appears structurally normal. No aortic stenosis or regurgitati on. 8. The mitral valve is normal. 9. There is trace to mild mitral regurgitation. 10. Mild tricuspid regurgitation present. 11. The right ventricular systolic pressure, as measured by Doppler, is 20.33mmHg. 12. There is no pulmonic regurgitation present. 13. The aortic root size is normal. 14. There is no pericardial effusion. MEDICINE MAN: Michelle Doyle RDCS
--- NOTE | 2017-07-20 18:26 | P.STRESS ---
- Stress Test Note Stress Test Results/Findings: Exam Performed: stress echo exercise with con Exam Date: 07/20/17 Reason for Exam: chest pain Height: 5 ft 7 in Weight: 117.4 kg Protocol: jovani Stage: 3 Duration of Exercise: 6:15 Resting Heart Rate: 84 Resting Blood Pressure: 131/86 Maximum Achieved Heart Rate: 164 Maximum Achieved Blood Pressure: 179/98 85% PMHR: 158 100% PMHR: 186 METS: 7.5 Technologist Comment: Stress Test Results/Findings: This 32-year-old female is being evaluated for symptoms of chest pain and shortness of breath. Patient has family history and also history of COPD. Baseline EKG showed sinus rhythm with normal WI interval and QRS duration. Blood pressure at rest is 130/86 with pulse rate of 84. Patient walked on the Jovani protocol for 6 minutes and 15 seconds achieving a maximal heart rate of 164 with a blood pressure 162/100. EKGs taken during and after the exercise did not reveal any changes to suggest ischemia. Occasional PVCs are noted. Echo data: Baseline echo images show normal wall motion and thickening. Exercise echo images showed augmentation of wall motion and thickening in all the segments. Final impression: #1. Negative stress test #2. Negative stress echo.
--- NOTE | 2017-07-20 18:34 | CT ---
EXAMINATION TYPE: CT brain wo con DATE OF EXAM: 07/20/2017 COMPARISON: NONE HISTORY: headache, weakness CT DLP: 1070 mGycm. Automated Exposure Control for Dose Reduction was Utilized. TECHNIQUE: CT scan of the head is performed without contrast. FINDINGS: The ventricles have normal size. There is no mass effect nor midline shift. There is no s ign of intracranial hemorrhage. The calvarium appears intact. The remainder of the exam is unremarkab le. CONCLUSION: Normal CT scan of the brain.
[2017-07-20] MEDS: HYDROcodone/APAP 7.5-325MG 1 EACH TAB PO PRN (19:32)
--- NOTE | 2017-07-20 20:16 | P.CNNES ---
History of Present Illness Consult date: 07/20/17 History of Present Illness: The patient is a 32-year-old right-handed white female who states that around 4 PM yesterday she developed chest pain in the retrosternal area as well as left arm numbness. She felt a heaviness in the left arm which lasted up until yesterday evening. Again she had chest pain today when she underwent a stress test. She has had a CAT scan of the brain which was negative Patient has history of chronic right hand tremor and chronic left-sided numbness involving face arm and leg. This is been going on for at least 6 months. At current moment the patient does not have any chest pain or shortness of breath. She states that the numb feeling in the left arm has improved. The other numbness which she's had for 6 months persists which is the left face arm and leg. Patient has history of fibromyalgia for which she is taking medication Lyrica as well as migraine headaches for which she is taking topiramate the patient denied any other neurologic complaint when she came into the hospital at such as dizziness visual changes vertigo or gait disorder. There is a strong family history of heart disease. Review of Systems Eyes: denies blurred vision, denies pain Ears, nose, mouth and throat: Denies headache, Denies sore throat Cardiovascular: Denies chest pain, Denies shortness of breath Respiratory: Reports as per HPI Neurological: Denies numbness, Denies weakness Psychiatric: Denies anxiety, Denies depression Past Medical History Past Medical History: Asthma, GERD/Reflux, Sleep Apnea/CPAP/BIPAP, Thyroid Disorder Additional Past Medical History / Comment(s): migraines, degenerative disk, IBS , no CPAP used, fibromyalgia History of Any Multi-Drug Resistant Organisms: None Reported Past Surgical History: Breast Surgery Additional Past Surgical History / Comment(s): dental Breast biopsy July 15 negative Past Anesthesia/Blood Transfusion Reactions: No Reported Reaction, Motion Sickness Past Psychological History: ADD/ADHD, Anxiety, Bipolar, Depression Smoking Status: Never smoker Past Alcohol Use History: Rare Past Drug Use History: None Reported - Past Family History Mother History Unknown: Yes Medications and Allergies Home Medications Medication Instructions Recorded Confirmed Type Levothyroxine Sodium [Synthroid] 50 mcg PO DAILY 05/05/14 07/19/17 History traZODone HCL [Desyrel] 100 mg PO HS 04/04/15 07/19/17 History HYDROcodone/APAP 7.5-325MG [[place] 1 tab PO TID PRN 05/01/16 07/19/17 History 7.5-325] Norethindrone-E.estradiol-Iron 1 tab PO HS 05/01/16 07/19/17 History [Loestrin Fe 1.5-30 Tablet] Pregabalin [Lyrica] 150 mg PO HS 05/01/16 07/19/17 History busPIRone HCL 15 mg PO BID 05/01/16 07/19/17 History Albuterol Inhaler [Ventolin Hfa 2 puff INHALATION RT-Q6H PRN 05/23/16 07/19/17 History Inhaler] Meloxicam [Mobic] 15 mg PO DAILY 12/31/16 07/19/17 History Ondansetron Odt [Zofran ODT] 4 mg PO Q8HR PRN #20 tab 12/31/16 07/19/17 Rx Vitamin C/Biotin [Hair, Skin and 1 tab PO DAILY 12/31/16 07/19/17 History Nails] Lisdexamfetamine Dimesylate 50 mg PO QAM 06/20/17 07/19/17 History [Vyvanse] Famotidine [Pepcid] 20 mg PO BID 07/19/17 07/19/17 History Topiramate [Trokendi Xr] 200 mg PO DAILY 07/19/17 07/19/17 History Venlafaxine HCl [Effexor XR] 225 mg PO HS 07/19/17 07/19/17 History Allergies Allergy/AdvReac Type Severity Reaction Status Date / Time tramadol Allergy Rash/Hives Verified 07/19/17 16:29 valacyclovir HCl AdvReac BLURRED Verified 07/19/17 16:29 [From Valtrex] VISION Physical Examination - Vital Signs Vital Signs: Vital Signs Temp Pulse Pulse Resp BP BP Pulse Ox 07/20/17 16:00 99.3 F 65 18 131/79 96 07/20/17 11:50 79 18 07/20/17 11:48 98.2 F 79 18 110/73 98 07/20/17 08:00 97.4 F L 74 18 103/59 98 07/20/17 04:00 97.1 F L 62 16 103/56 98 07/20/17 00:00 98.1 F 72 16 101/67 96 07/19/17 20:25 98.6 F 104 H 16 144/84 100 07/19/17 20:22 98.6 F 71 16 144/84 100 07/19/17 20:03 98.7 F 70 15 106/64 100 Intake and Output 07/20/17 07/20/17 07/20/17 06:59 14:59 22:59 Intake Total 360 Balance 360 Intake: Oral 360 Other: # Voids 1 3 Weight 117.4 kg - Constitutional General appearance: average body habitus - EENT EENT: PERRL, hearing intact, vision intact - Respiratory Respiratory: lungs clear - Cardiovascular Cardiovascular: regular rate, normal S1 - Integumentary Integumentary: normal - Neurologic Mental status : She was awake alert and oriented chance of questions appropriately there is no aphasia or dysarthria Cranial nerve examination: PERRL, EOMI, VFF, face symmetric, tongue midline Speech examination: intact Sensorimotor examination: intact Detailed motor examination: grossly full strength in all extremities Detailed sensory examination: other (Decreased light touch left face arm and leg ) - Psychiatric Psychiatric: mood/affect appropriate Results - Laboratory Findings CBC and BMP: 07/19/17 16:42 07/19/17 16:42 Abnormal Lab Findings: Abnormal Labs 07/19/17 16:42 Chloride 111 H Carbon Dioxide 20 L BUN 19 H Assessment and Plan (1) Atypical chest pain Current Visit: Yes Status: Acute SNOMED Code(s): 767988673 (2) Left arm numbness Current Visit: Yes Status: Acute SNOMED Code(s): 952282758 (3) TIA (transient ischemic attack) Current Visit: Yes Status: Acute SNOMED Code(s): 690356619 Plan: Patient is a 32-year-old woman with history of acute onset chest pain and left arm heaviness and numbness. She is being evaluated for possible TIA. She has had a carotid ultrasound and echocardiogram. She also has a history of right hand tremor which she's had for several months. Recommend further evaluation with EEG. The patient also has history of left face arm and leg numbness for 6 months. Commend further evaluation with MRI scan of the brain rule out demyelination is been started on aspirin therapy
[2017-07-20] MEDS ORDERED: NORETHINDRONE E ESTRADIOL IRON PO SCH (21:00)
[2017-07-21] MEDS: LEVOTHYROXINE 50 MCG TAB PO SCH (06:00)
--- NOTE | 2017-07-21 09:08 | MR ---
EXAMINATION TYPE: MR brain wo/w con DATE OF EXAM: 07/21/2017 COMPARISON: CT brain from yesterday HISTORY: Chest pain, Left arm numbness and weakness on admission yesterday, per patient. Stroke per o rder. TECHNIQUE: Multiplanar, multisequence images of the brain and brainstem is performed without and with IV contras t, utilizing 11 mL intravenous Gadavist . FINDINGS: There is distortion or artifact most prominent inferiorly from patient's dental implant santhosh ing evaluation slightly suboptimal. Diffusion weighted images demonstrate no evidence of a recent inf arct or other diffusion abnormality. There is no worrisome extra-axial fluid collection. The ventri cular system and cisternal spaces are normal in size and appearance. The brain volume is age appropr iate. There are some scattered foci of T2 hyperintensity seen throughout the white matter bilaterally . Approximately 20-30 small lesions are present most prominent in the bilateral frontal lobes. All le sions measure 3 mm or smaller in size. Midline structures demonstrate normal morphology. The craniocervical junction appears within normal limits. Post contrast images demonstrate no abnormal enhancement. The dural venous sinuses appear pa tent. The visualized sinuses are clear and the globes are intact. IMPRESSION: 1. No evidence of a recent infarct. 2. Mild to moderate nonspecific white matter changes somewhat pronounced for patient's age, in patien t of this age demyelinating disease needs to be excluded among the possible broad differential.
[2017-07-21] MEDS: TOPIRAMATE 200 MG PO SCH (09:22)
[2017-07-21] MEDS: NON-FORMULARY DRUG (Lisdexamfetamine Dimesylate [Vyvanse] 50 MG) PO SCH (09:22)
[2017-07-21] MEDS: NITROGLYCERIN 0.3MG/HR PATCH TRANSDERM SCH (10:19)
[2017-07-21] MEDS: ASPIRIN 81 MG PO SCH (10:20)
[2017-07-21] MEDS: FAMOTIDINE 20 MG TAB PO SCH (10:20)
[2017-07-21] MEDS: busPIRone HCl 5 MG TAB PO SCH (10:20)
[2017-07-21] MEDS: MELOXICAM 7.5 MG TAB PO SCH (10:20)
[2017-07-21] MEDS: ENOXAPARIN 40 MG/0.4 ML SYRINGE SQ SCH (10:20)
[2017-07-21 11:59] VITALS: BP 128/72; PULSE 69; TEMP 97.9
--- NOTE | 2017-07-21 13:48 | EEG ---
ELECTROENCEPHALOGRAM REPORT DATE OF EE07/21/2017. REFERRING PHYSICIAN: Dr. Fontenot. CONSULTING /INTERPRETING PHYSICIAN: Dr. Sanjeev Novak ELECTROENCEPHALOGRAPHIC EXAMINATION REPORT: INDICATION FOR EXAMINATION: This patient is a 32-year-old female being evaluated for left arm numbness and weakness. AGE: [age]. EEG FINDINGS: A routine 21 channel awake digital EEG recording was accomplished utilizing the 10-20 international system with bipolar and referential montages. The background activity in the most alert resting state consists of a low to medium amplitude fairly well developed and well sustained 7-8 Hz activity over the posterior head regions. This posterior rhythm attenuates to eye opening. There is a small amount of low amplitude 18-20 Hz beta activity seen maximally over the anterior head regions. Muscle and movement artifact was observed on a few occasions during the tracing. Hyperventilation was not performed. Photic stimulation at flash frequencies of 2-30 Hz produced a good symmetrical occipital driving response. No epileptiform discharges were seen. IMPRESSION: This EEG is within normal limits for the patient's age. The EEG failed to reveal any focal, lateralized, or epileptiform abnormalities. Clinical correlation is recommended. MMODL / IJN: [id number] /
--- NOTE | 2017-07-21 14:23 | P.PN ---
Subjective Progress Note Date: 07/21/17 The patient is a 32-year-old woman admitted to the hospital with chest pain and left arm numbness. She denies any chest pain. She still has some residual left arm numbness. She has been having left-sided numbness for over 6 months. She had an MRI which showed some white matter changes. She will have further evaluation for possible demyelinating disease as an outpatient with lumbar puncture. She denies any other complaint. Objective - Vital Signs Vital signs: Vital Signs Temp 97.9 F 07/21/17 11:58 Pulse 69 07/21/17 11:58 Resp 18 07/21/17 11:58 BP 128/72 07/21/17 11:58 Pulse Ox 97 07/21/17 11:58 Intake & Output 07/20/17 07/21/17 07/21/17 18:59 06:59 18:59 Intake Total 360 720 360 Balance 360 720 360 Weight 117 kg Intake: Oral 360 720 360 Other: # Voids 3 3 1 - Constitutional General appearance: Present: average body habitus - EENT Eyes: Present: PERRLA ENT: Present: hearing grossly normal - Respiratory Respiratory: bilateral: CTA - Neurologic Neurologic Comment(s): Mental status she was awake alert and oriented there was no a aphasia or dysarthria Neurologic: Present: CNII-XII intact - Musculoskeletal Musculoskeletal: Present: strength equal bilaterally - Psychiatric Psychiatric: Present: A&O x's 3 - Labs CBC & Chem 7: 07/19/17 16:42 07/19/17 16:42 Assessment and Plan (1) Atypical chest pain Current Visit: Yes Status: Acute SNOMED Code(s): 621562261 (2) Left arm numbness Current Visit: Yes Status: Acute SNOMED Code(s): 317299309 (3) TIA (transient ischemic attack) Current Visit: Yes Status: Acute SNOMED Code(s): 481374525 Plan: Patient is a 32-year-old woman with history of acute onset chest pain and left arm heaviness and numbness. She has been evaluated for possible TIA. She has had a carotid ultrasound and echocardiogram, which were unremarkable. She had an MRI of the brain which is suspicious for demyelinating disease. She will have further workup done as an outpatient with lumbar puncture. She will be given since steroid Dosepak. She will continue on aspirin daily.
[2017-07-21] MEDS ORDERED: predniSONE 20 MG TAB PO STA (14:59)
[2017-07-21] MEDS: HYDROcodone/APAP 7.5-325MG 1 EACH TAB PO PRN (15:20)
--- NOTE | 2017-07-21 18:25 | DS ---
DISCHARGE SUMMARY DATE OF ADMISSION: 07/19/2017 DATE OF DISCHARGE: 07/21/2017 FINAL DIAGNOSES: 1. Anterior chest wall pain, probably musculoskeletal. 2. Abnormal MRI; demyelinating process workup in place. 3. Morbid obesity with body mass index of 40.5. 4. Intermittent asthma. 5. Gastroesophageal reflux disease. 6. Irritable bowel syndrome. 7. Anxiety, depression not otherwise specified. 8. Hypothyroidism. HOSPITAL COURSE: This patient presented with some stuttering which was going on for quite some time and some weakness on the left side and also some atypical chest pain. She did undergo a stress test that was negative. Two-dimensional echocardiogram was unremarkable. EEG did not show any seizure activity. MRI of the brain did show some white matter changes. I did discuss it with Dr. Tracey Novak. Patient will need a workup for multiple sclerosis as an outpatient. The patient has been given some dose of steroids to go home. I spoke at length with the patient and her today. Questions were answered. On examination, slightly decreased sensation on the left side and power is 4/5. Patient is able though to get about and walk around. CONSULTATIONS: 1. Dr. Tracey Novak from Neurology. 2. Dr. Ha from Cardiology. DISCHARGE MEDICATIONS: 1. Synthroid 50 mcg p.o. daily. 2. Desyrel 100 mg p.o. at bedtime. 3. [place] 7.5 one tablet p.o. t.i.d. p.r.n. 4. Loestrin/iron 1.5/30 one tablet p.o. at bedtime. 5. Lyrica 150 mg p.o. at bedtime. 6. Buspirone 15 mg p.o. b.i.d. 7. Ventolin HFA 2 puffs q.6 p.r.n. 8. Mobic 50 mg p.o. daily. 9. Zofran 4 mg q.8 p.r.n. 10.Hair/skin/nails 1 tablet p.o. daily. 11.Vyvanse 50 mg p.o. daily. 12.Pepcid 20 mg p.o. b.i.d. 13.Trokendi XR 200 mg p.o. daily. 14.Effexor XR 225 mg p.o. at bedtime. 15.Prednisone taper. Follow up with Dr. Inman in one week. Follow up with Dr. Tracey Novak in one week. Discussion and discharge planning more than 35 minutes. MMODL / IJN: [id number] /
--- NOTE | 2017-07-24 11:10 | ECHOS ---
- Stress Test Note Stress Test Results/Findings: Exam Performed: stress echo exercise with con Exam Date: 07/20/17 Reason for Exam: chest pain Height: 5 ft 7 in Weight: 117.4 kg Protocol: jovani Stage: 3 Duration of Exercise: 6:15 Resting Heart Rate: 84 Resting Blood Pressure: 131/86 Maximum Achieved Heart Rate: 164 Maximum Achieved Blood Pressure: 179/98 85% PMHR: 158 100% PMHR: 186 METS: 7.5 Technologist Comment: Stress Test Results/Findings: This 32-year-old female is being evaluated for symptoms of chest pain and shortness of breath. Patient has family history and also history of COPD. Baseline EKG showed sinus rhythm with normal [place] interval and QRS duration. Blood pressure at rest is 130/86 with pulse rate of 84. Patient walked on the Jovani protocol for 6 minutes and 15 seconds achieving a maximal heart rate of 164 with a blood pressure 162/100. EKGs taken during and after the exercise did not reveal any changes to suggest ischemia. Occasional PVCs are noted. Echo data: Baseline echo images show normal wall motion and thickening. Exercise echo images showed augmentation of wall motion and thickening in all the segments. Final impression: #1. Negative stress test #2. Negative stress echo. WILFRED
== END 2017-07-21 16:09 | disposition home or self-care (01) | DRG 313 ==
LOC: EC 16:15 → 6SEL 19:16 → OBSVTOIN 07-20 14:52
PROVIDERS: ADMIT Hospitalist; ATTEND Hospitalist
DX: R07.89 Other chest pain (principal); E66.01 Morbid (severe) obesity due to excess calories; E03.9 Hypothyroidism, unspecified; F41.0 Panic disorder [episodic paroxysmal anxiety]; F31.9 Bipolar disorder, unspecified; F90.9 Attention-deficit hyperactivity disorder, unspecified type; G47.33 Obstructive sleep apnea (adult) (pediatric); J45.20 Mild intermittent asthma, uncomplicated; K21.9 Gastro-esophageal reflux disease without esophagitis; K58.9 Irritable bowel syndrome, unspecified; M79.7 Fibromyalgia; G43.909 Migraine, unspecified, not intractable, without status migrainosus; R03.0 Elevated blood-pressure reading, without diagnosis of hypertension; R25.1 Tremor, unspecified; R20.0 Anesthesia of skin; F98.5 Adult onset fluency disorder; Z68.41 Body mass index [BMI] 40.0-44.9, adult; Z79.1 Long term (current) use of non-steroidal anti-inflammatories (NSAID); Z79.899 Other long term (current) drug therapy; Z88.5 Allergy status to narcotic agent; Z88.8 Allergy status to other drugs, medicaments and biological substances; Z86.59 Personal history of other mental and behavioral disorders; Z82.49 Family history of ischemic heart disease and other diseases of the circulatory system
CPT/HCPCS: 36415; 70450; 70553; 71046; 80053; 81025; 82550; 82553; 83735; 84484; 85025; 85379; 85610; 85730; 93005; 93017; 93306; 93350; 93880; 95819; 99285

== ENCOUNTER 2017-08-29 07:39 | Day surgery (SDC) | payer OTHER ==
[2017-08-28 09:08] VITALS: BMI 39.9
[2017-08-29 08:01] VITALS: TEMP 98.1
[2017-08-29] MEDS ORDERED: LACTATED RINGERS 1,000 ML IV ONE (08:03)
[2017-08-29] MEDS ORDERED: LACTATED RINGERS 1,000 ML IV SCH (08:30)
[2017-08-29 09:23] LABS: T4, Free (Free Thyroxine) 0.85 ng/dL (0.78-2.19)
[2017-08-29] MEDS ORDERED: IV FLUID CONTINUATION 1,000 ML IV ONE ×2 (09:24)
[2017-08-29 09:31] VITALS: RESP 18
[2017-08-29 09:47] VITALS: BP 109/71; PULSE 60
--- NOTE | 2017-08-29 09:55 | P.PCN ---
Date of Procedure: 08/29/17 Surgeon: Albin Bello Pathology: none sent Condition: stable Disposition: PACU Description of Procedure: PREOPERATIVE DIAGNOSIS: 1-rule out multiple sclerosis POSTOPERATIVE DIAGNOSIS: same PROCEDURE 1. Diagnostic lumbar puncture ANESTHESIA: Local with 1% lidocaine; conscious sedation with Versed and fentanyl EBL: Minimal PROCEDURE INDICATION: The patient with persistent leg weakness and numbness due to presumed demyelinating disease who presents for diagnostic LP as ordered by Dr. Novak. No use of blood thinners. PROCEDURE DESCRIPTION / TECHNIQUE: The patient was seen and identified in the preoperative area. Risks, benefits, complications, and alternatives were discussed with the patient, including but not limited to bleeding, infection, nerve damage, allergic reactions to medications, and spinal headache. The patient agreed to proceed with the procedure and signed the consent after all questions were answered. Vital signs were stable. Patient was taken to the procedure room and time out was completed to confirm patient position, procedure, area of pain, and allergies. The patient was placed in the sitting position on procedure table with help from nursing staff. The lumbosacral area was prepped and draped in the usual sterile fashion. Vital signs were closely monitored during the procedure. After localization with 1% lidocaine, a 22-gauge 5-inch spinal needle was placed into L4-L5 interspace. After advancement of the needle, patient did have some paresthesia in RLE during first attempt and needle was removed. Needle was then placed in the L3-L4 interspace on the second attempt after localization. Stylet was removed and clear cerebrospinal fluid was obtained. 12 ml CSF was removed and put into four tubes. COMPLICATIONS: None COMMENTS: None DISPOSITION / PLANS: The patient was placed in a supine position and transferred to the recovery area in a stable condition for observation. There was no evidence of lower extremity motor or sensory deficit after the procedure. Patient was discharged from the recovery room after meeting discharge criteria. Home discharge instructions were given to the patient by the staff. The patient was reexamined prior to discharge and there were no issues. She was educated about possible postdural puncture headache (including regarding caffeine, fluids, and lying flat) and she verbalized understanding. The patient will follow up with her neurologist as scheduled.
[2017-08-29 11:01] LABS: Glucose,CSF 56 mg/dL (40-70); Total Protein,CSF 70 mg/dL (12-60)
[2017-08-29 12:46] LABS: Appearance,CSF Clear; CSF Tube Number 4
[2017-08-29 12:47] LABS: Nucleated Cells, CSF 0 u/L (0-5); Red Blood Cell,CSF 2 u/L (0-10)
[2017-08-29 18:02] LABS: DNA Double-Stranded NEGATIVE (NEGATIVE); RNP 0.2 AI
[2017-08-29 18:23] LABS: Rheumatoid Factor 5 IU/mL (0-15)
[2017-08-30 05:39] LABS: Angiotensin-1 Converting Enz. 32 U/L (8-52)
[2017-08-30 11:54] LABS: APTT 37 Sec(s) (<43); Dilute Russell Viper Venom 43 Sec(s) (<44)
[2017-08-30 12:19] LABS: IgG/Albumin Index (CSF) 0.46 (0.00 - 0.77)
[2017-08-31 11:51] LABS: VDRL, Qualitative CSF Nonreactive (Nonreactive)
== END 2017-08-29 10:09 | disposition home or self-care (01) ==
LOC: ORPAIN 07:39
PROVIDERS: ATTEND Anesthesiology
DX: R20.2 Paresthesia of skin (principal); R53.1 Weakness; R20.0 Anesthesia of skin; F41.9 Anxiety disorder, unspecified; F90.9 Attention-deficit hyperactivity disorder, unspecified type; M54.2 Cervicalgia; Z88.5 Allergy status to narcotic agent; Z88.8 Allergy status to other drugs, medicaments and biological substances
CPT/HCPCS: 81025; 87476; 86592 ×2; 86235 ×3; 84439; 88108; 84157; 82945; 82040; 82042; 82784; 83916; 82164 ×2; 83873; 84443; 84450; 84460; 85730; 86431; 85613; 89050; 86618; 86038; 86225; 62270; J2250; J3010; 99152

== ENCOUNTER → 2017-08-30 | Day surgery (SDC) | payer OTHER ==
[~2017-08-30] MED LIST: LACTATED RINGERS 1,000 ML IV SCH; MIDAZOLAM (PF) 1 MG/ML 5 ML VIAL IV ONE; MIDAZOLAM 2 MG/2 ML VIAL IV ONE; fentaNYL (PF) 50 MCG/ML 2 ML AMP IVP ONE; fentaNYL (PF) 50 MCG/ML 5 ML AMP IVP ONE
[2017-08-30 13:28] VITALS: RESP 16
[2017-08-30 13:38] VITALS: TEMP 98.6
--- NOTE | 2017-08-30 14:18 | P.PCN ---
Date of Procedure: 08/30/17 Procedure(s) Performed: Procedure= lumbar epidural blood patch. Preoperative diagnosis= postdural puncture headache. Postoperative diagnoses= post dural puncture headache. Indication for the procedure= patient developed headache after the diagnostic lumbar puncture , done yesterday , and patient complaining of severe intractable headache headache persists in spite of conservative treatment, there is no focal neurological deficit, no fever, no neck stiffness, headache worse with sitting and standing position, and improved with lying supine, for this reason patient is a good candidate for epidural blood patch. anesthesia= IV sedation with Versed 2 mg and fentanyl 50 mcg , and local infiltration with lidocaine 1% 3 mL. Complications= none. Description of the procedure= patient identified risks and benefits of the procedure explained to the patient and patient agreed with proceeding, vital signs monitored during the procedure and IV sedation given to decrease anxiety, Back lumbar area prepped with chlorhexidine 3 times, then drape applied the local infiltration of the skin and subcutaneous tissue with lidocaine 1% 3 mL at L5-S1 interlaminar space then 20 -gauge Tuohy needle advanced slowly at L5- S1 interlaminar space, There was positive loss of resistance to normal saline, no heme no paresthesia no cerebrospinal fluid, then after that 20 ML of the blood taken from the patient under strict sterile technique, and after the right antecubital area prepped with a chlorhexidine 3 times using 18 -gauge Angiocath, and under sterile technique the 20 ML of the block taken from the patient injected in the epidural space after negative aspiration for heme or CSF and there was no paresthesia then the needle removed intact the skin cleaned and the , bandage applied and patient discharged home in stable condition after discharge criteria met, and patient will follow up with the clinic when necessary.
[2017-08-30 14:32] VITALS: BP 102/58; PULSE 63
== END ==
LOC: PROCWHC3 11:37
PROVIDERS: ATTEND Anesthesiology
DX: G97.1 Other reaction to spinal and lumbar puncture (principal)
CPT/HCPCS: 96375; 62273; J2250; J3010

== ENCOUNTER 2017-08-31 14:20 | Emergency (ER) | payer OTHER ==
--- NOTE | 2017-08-31 15:00 | ED ---
General Adult HPI - General Chief complaint: Headache Stated complaint: Neck pain Time Seen by Provider: 08/31/17 14:47 Source: patient Mode of arrival: ambulatory Limitations: no limitations - History of Present Illness Initial comments: Mary Calhoun is a 32-year-old female with extensive past medical history listed below most significant for a lumbar puncture performed on Sunday of this week for evaluation of possible MS. Patient return to the hospital on for evaluation of post dural headache, she had a blood patch performed at that time. Patient reports her headache improved somewhat after the blood patch. She reports that she was feeling well yesterday evening. She reports that she woke this morning with a headache which she describes as a pressure- like sensation in her head and neck. She reports that she has a history of chronic migraines for which she has been prescribed Fioricet in the past, she reports that this pain is not pain is not similar to previous migraine. She describes this pain as pressure-like in nature, worse in the occipital region. Patient has taken Fioricet, Tylenol and [place] with no improvement in her pain so she came to the emergency department for further evaluation. Describes the headache as being in the posterior head and neck. Headache is worse with movement or walking. Headache improves with rest. Headache is not associated with fever, chills, nausea, vomiting, vision change, mental status change. - Related Data Home Medications Medication Instructions Recorded Confirmed Levothyroxine Sodium [Synthroid] 50 mcg PO DAILY 05/05/14 08/31/17 traZODone HCL [Desyrel] 100 mg PO HS 04/04/15 08/31/17 HYDROcodone/APAP 7.5-325MG [[place] 1 tab PO TID PRN 05/01/16 08/31/17 7.5-325] Norethindrone-E.estradiol-Iron 1 tab PO HS 05/01/16 08/31/17 [Loestrin Fe 1.5-30 Tablet] Pregabalin [Lyrica] 150 mg PO HS 05/01/16 08/31/17 busPIRone HCL 15 mg PO BID 05/01/16 08/31/17 Albuterol Inhaler [Ventolin Hfa 2 puff INHALATION RT-Q6H PRN 05/23/16 08/31/17 Inhaler] Meloxicam [Mobic] 15 mg PO DAILY 12/31/16 08/31/17 Vitamin C/Biotin [Hair, Skin and 1 tab PO DAILY 12/31/16 08/31/17 Nails] Lisdexamfetamine Dimesylate 50 mg PO QAM 06/20/17 08/31/17 [Vyvanse] Famotidine [Pepcid] 20 mg PO BID 07/19/17 08/31/17 Topiramate [Trokendi Xr] 200 mg PO DAILY 07/19/17 08/31/17 Venlafaxine HCl [Effexor XR] 225 mg PO HS 07/19/17 08/31/17 Butalb/Acetaminophen/Caffeine 1 cap PO Q4HR PRN 08/28/17 08/31/17 [Fioricet 50-300-40 mg Capsule] Ondansetron Odt [Zofran ODT] 8 mg PO Q8HR PRN 08/28/17 08/31/17 Allergies Allergy/AdvReac Type Severity Reaction Status Date / Time tramadol Allergy Rash/Hives Verified 08/31/17 15:17 valacyclovir HCl AdvReac BLURRED Verified 08/31/17 15:17 [From Valtrex] VISION Review of Systems ROS Statement: Those systems with pertinent positive or pertinent negative responses have been documented in the HPI. ROS Other: All systems not noted in ROS Statement are negative. Constitutional: Denies: fever Eyes: Denies: eye pain, eye discharge, vision change ENT: Denies: ear pain, throat pain, dental pain, hearing loss, epistaxis, congestion Respiratory: Denies: cough, dyspnea Cardiovascular: Denies: chest pain, palpitations Endocrine: Reports: fatigue Gastrointestinal: Denies: abdominal pain, nausea, vomiting Genitourinary: Denies: urgency, dysuria Musculoskeletal: Denies: back pain Skin: Denies: rash Neurological: Reports: headache. Denies: weakness, numbness, paresthesias, confusion, vertigo Psychiatric: Reports: anxiety Hematological/Lymphatic: Denies: easy bleeding, easy bruising Past Medical History Past Medical History: Asthma, Fibromyalgia, GERD/Reflux, Memory Impairment, Musculoskeletal Disorder, Sleep Apnea/CPAP/BIPAP, Thyroid Disorder Additional Past Medical History / Comment(s): Hx migraines, degenerative disc, IBS, no CPAP used. History of Any Multi-Drug Resistant Organisms: None Reported Past Surgical History: Breast Surgery Additional Past Surgical History / Comment(s): Dental, Breast biopsy. Past Anesthesia/Blood Transfusion Reactions: No Reported Reaction Past Psychological History: ADD/ADHD, Anxiety, Bipolar, Depression Smoking Status: Never smoker Past Alcohol Use History: Rare Past Drug Use History: None Reported - Past Family History Mother History Unknown: Yes Family Medical History: No Reported History General Exam Limitations: no limitations Course Vital Signs 08/31/17 14:37 Temperature 98.7 F Pulse Rate 89 Respiratory 18 Rate Blood Pressure 130/84 O2 Sat by Pulse 98 Oximetry - Reevaluation(s) Reevaluation #1: Sphenopalantine block placed using 2% lidocaine without epi 08/31/17 16:20 Reevaluation #2: Paitent re-evaluated, reports complete resolution of the headache. Would like to be discharged home. 08/31/17 17:06 Procedures - Nerve Block Consent Obtained: verbal consent Time Out Performed: Yes Local Anesthetic Used: Lidocaine 2% Nerve Blocks: other (sphenopalantine ) Complications: none Patient Tolerated Procedure: well Medical Decision Making - Medical Decision Making Patient was seen and evaluated, history was obtained from the patient and at bedside Patient underwent an LP on Sunday, a blood patch on and has persistent headache today Physical exam is unremarkable, patient has a normal neurologic exam, normal funduscopic exam CBC, BMP ordered Migraine cocktail ordered Sphenopalentine block applied Labs unremarkable Patient re-evaluated after medications and block, reports complete resolution of her headache Had a long discussion with the patient and her regarding her headache. At this time I cannot determine specifically what caused her headache, cyst fact multifactorial including the procedures, being required to be in certain positions for the procedures, the emotional stress of having lumbar puncture and blood patch in addition to her history of migraines. At this time the patient's headache has resolved. She is comfortable for plan with discharge home. I advised the patient that caffeine isn't effective treatment for posterior oral headache, she is not a every day coffee drinker but reports she will drink caffeinated beverages and rest over the next 2 days. I advised patient not to exert herself or participate in any physical activity for the course of the weekend. All questions pertaining to care were answered to the best my ability patient was discharged home in stable condition. - Lab Data Result diagrams: 08/31/17 15:55 08/31/17 15:55 Lab Results 08/31/17 08/31/17 08/31/17 Range/Units 15:55 15:55 15:55 WBC 9.4 (3.8-10.6) k/uL RBC 4.67 (3.80-5.40) m/uL Hgb 13.4 (11.4-16.0) gm/dL Hct 40.8 (34.0-46.0) % MCV 87.5 (80.0-100.0) fL MCH 28.8 (25.0-35.0) pg MCHC 32.9 (31.0-37.0) g/dL RDW 13.0 (11.5-15.5) % Plt Count 328 (150-450) k/uL Neutrophils % 63 % Lymphocytes % 29 % Monocytes % 5 % Eosinophils % 2 % Basophils % 1 % Neutrophils # 6.0 (1.3-7.7) k/uL Lymphocytes # 2.7 (1.0-4.8) k/uL Monocytes # 0.4 (0-1.0) k/uL Eosinophils # 0.2 (0-0.7) k/uL Basophils # 0.0 (0-0.2) k/uL Sodium 143 (137-145) mmol/L Potassium 4.5 (3.5-5.1) mmol/L Chloride 107 (98-107) mmol/L Carbon Dioxide 23 (22-30) mmol/L Anion Gap 13 mmol/L BUN 16 (7-17) mg/dL Creatinine 0.92 (0.52-1.04) mg/dL Est GFR (CKD-EPI)AfAm >90 (>60 ml/min/1.73 sqM) Est GFR (CKD-EPI)NonAf 82 (>60 ml/min/1.73 sqM) Glucose 80 (74-99) mg/dL Calcium 9.4 (8.4-10.2) mg/dL Urine HCG, Qual Not Detected (Not Detectd) Disposition Clinical Impression: Migraine Disposition: HOME SELF-CARE Condition: Good Instructions: Acute Headache (ED) Is patient prescribed a controlled substance at d/c from ED?: No Referrals: Edgardo Inman MD [Primary Care Provider] - 1-2 days Time of Disposition: 17:05
[2017-08-31] MEDS ORDERED: diphenhydrAMINE 50 MG/ML 1 ML VIAL IVP STA (15:32)
[2017-08-31] MEDS ORDERED: METOCLOPRAMIDE 5 MG/ML 2 ML VIAL IVP STA (15:32)
[2017-08-31] MEDS ORDERED: KETOROLAC 30 MG/ML 1 ML VIAL IVP ONE (15:33)
[2017-08-31] MEDS ORDERED: LIDOCAINE 4% (PF) 5 ML AMP MISCELLANE STA (15:35)
[2017-08-31] MEDS ORDERED: LIDOCAINE 2% INJ 20 MG/ML (20 ML MDV) SQ STA (16:00)
[2017-08-31 16:05] LABS: Basophils % (A) 1 %; Eosinophils # (A) 0.2 k/uL (0-0.7); Eosinophils % (A) 2 %; HCT 40.8 % (34.0-46.0); HGB 13.4 gm/dL (11.4-16.0); Lymphocytes # (A) 2.7 k/uL (1.0-4.8); Lymphocytes % (A) 29 %; MCH 28.8 pg (25.0-35.0); MCHC 32.9 g/dL (31.0-37.0); MCV 87.5 fL (80.0-100.0); Mean Platelet Volume 7.4; Monocytes # (A) 0.4 k/uL (0-1.0); Monocytes % (A) 5 %; Neutrophils % (A) 63 %; Platelet Count 328 k/uL (150-450); RBC 4.67 m/uL (3.80-5.40); WBC 9.4 k/uL (3.8-10.6)
[2017-08-31 16:14] LABS: Anion Gap 13 mmol/L; Blood Urea Nitrogen 16 mg/dL (7-17); Calcium 9.4 mg/dL (8.4-10.2); Carbon Dioxide 23 mmol/L (22-30); Chloride 107 mmol/L (98-107); Glucose 80 mg/dL (74-99); Potassium 4.5 mmol/L (3.5-5.1); Sodium 143 mmol/L (137-145)
[2017-08-31 17:21] VITALS: BP 138/79; PULSE 78; RESP 16; TEMP 98
== END 2017-08-31 17:21 | disposition home or self-care (01) ==
LOC: EC 14:20
DX: G43.909 Migraine, unspecified, not intractable, without status migrainosus (principal); M54.2 Cervicalgia; J45.909 Unspecified asthma, uncomplicated; K21.9 Gastro-esophageal reflux disease without esophagitis; E07.9 Disorder of thyroid, unspecified; M79.7 Fibromyalgia; F31.9 Bipolar disorder, unspecified; F41.9 Anxiety disorder, unspecified; F90.9 Attention-deficit hyperactivity disorder, unspecified type; Z79.1 Long term (current) use of non-steroidal anti-inflammatories (NSAID); Z79.3 Long term (current) use of hormonal contraceptives; Z79.899 Other long term (current) drug therapy; Z88.5 Allergy status to narcotic agent; Z88.8 Allergy status to other drugs, medicaments and biological substances; Z87.39 Personal history of other diseases of the musculoskeletal system and connective tissue
CPT/HCPCS: 99283; 64505; 96374; 96375 ×2; 36415; 80048; 85025; 81025; J2001; J1200; J2765; J1885

== ENCOUNTER 2017-09-01 23:10 | Emergency (ER) | payer OTHER ==
[2017-09-01] MEDS ORDERED: RX INFO: IV CONTRAST WAS GIVEN 1 EACH MISC MISCELLANE PRN (23:44)
[2017-09-01] MEDS ORDERED: METHOCARBAMOL 750 MG TAB PO STA (23:46)
[2017-09-01] MEDS ORDERED: KETOROLAC 30 MG/ML 1 ML VIAL IVP STA (23:46)
[2017-09-01] MEDS ORDERED: methylPREDNISolone SOD SUCCI 125 MG/2 ML VIAL IV STA (23:46)
[2017-09-02 00:23] LABS: Basophils # (A) 0.1 k/uL (0-0.2); Basophils % (A) 1 %; Eosinophils # (A) 0.3 k/uL (0-0.7); Eosinophils % (A) 2 %; HCT 42.7 % (34.0-46.0); HGB 14.3 gm/dL (11.4-16.0); Lymphocytes % (A) 28 %; MCH 29.3 pg (25.0-35.0); MCHC 33.6 g/dL (31.0-37.0); MCV 87.2 fL (80.0-100.0); Monocytes # (A) 0.4 k/uL (0-1.0); Monocytes % (A) 4 %; Neutrophils # (A) 6.6 k/uL (1.3-7.7); Neutrophils % (A) 63 %; Platelet Count 345 k/uL (150-450); WBC 10.5 k/uL (3.8-10.6)
--- NOTE | 2017-09-02 00:29 | ED ---
Neck Injury/Pain HPI - General Chief Complaint: Neck Pain/Injury Stated Complaint: Neck pain Time Seen by Provider: 09/01/17 23:24 Mode of arrival: ambulatory Limitations: no limitations - History of Present Illness Initial Comments: Patient is a 32-year-old female presented to the emergency department for neck pain. Patient states that she had a lumbar puncture on Sunday for evaluation of multiple sclerosis. She then developed a headache and required a blood patch on . She was seen here yesterday for a headache which states that has improved. However, she is now having neck pain which is located at the very top of her neck at the attachment to the head. Physical pressure and is worse with movement and she is also had decreased range of motion. She adamantly denies any headaches, blurry vision, dizziness, lightheadedness or fevers/chills. She states that the pain is much more significant whenever she tries to turn her head. - Related Data Home Medications Medication Instructions Recorded Confirmed Levothyroxine Sodium [Synthroid] 50 mcg PO DAILY 05/05/14 08/31/17 traZODone HCL [Desyrel] 100 mg PO HS 04/04/15 08/31/17 HYDROcodone/APAP 7.5-325MG [[place] 1 tab PO TID PRN 05/01/16 08/31/17 7.5-325] Norethindrone-E.estradiol-Iron 1 tab PO HS 05/01/16 08/31/17 [Loestrin Fe 1.5-30 Tablet] Pregabalin [Lyrica] 150 mg PO HS 05/01/16 08/31/17 busPIRone HCL 15 mg PO BID 05/01/16 08/31/17 Albuterol Inhaler [Ventolin Hfa 2 puff INHALATION RT-Q6H PRN 05/23/16 08/31/17 Inhaler] Meloxicam [Mobic] 15 mg PO DAILY 12/31/16 08/31/17 Vitamin C/Biotin [Hair, Skin and 1 tab PO DAILY 12/31/16 08/31/17 Nails] Lisdexamfetamine Dimesylate 50 mg PO QAM 06/20/17 08/31/17 [Vyvanse] Famotidine [Pepcid] 20 mg PO BID 07/19/17 08/31/17 Topiramate [Trokendi Xr] 200 mg PO DAILY 07/19/17 08/31/17 Venlafaxine HCl [Effexor XR] 225 mg PO HS 07/19/17 08/31/17 Butalb/Acetaminophen/Caffeine 1 cap PO Q4HR PRN 08/28/17 08/31/17 [Fioricet 50-300-40 mg Capsule] Ondansetron Odt [Zofran ODT] 8 mg PO Q8HR PRN 08/28/17 08/31/17 Previous Rx's Medication Instructions Recorded Lidocaine 5% Oint [Xylocaine 5% 1 applic TOPICAL TID #1 tube 09/02/17 Oint] Methocarbamol [Robaxin-750] 750 mg PO TID #21 tablet 09/02/17 Allergies Allergy/AdvReac Type Severity Reaction Status Date / Time tramadol Allergy Rash/Hives Verified 08/31/17 15:17 valacyclovir HCl AdvReac BLURRED Verified 08/31/17 15:17 [From Valtrex] VISION Review of Systems ROS Statement: Those systems with pertinent positive or pertinent negative responses have been documented in the HPI. Constitutional: Negative for chills, fatigue and fever. HENT: Negative for congestion. Respiratory: Negative for chest tightness, shortness of breath and wheezing. Cardiovascular: Negative for chest pain and palpitations. Gastrointestinal: Negative for abdominal pain. Negative for abdominal distention , diarrhea, nausea and vomiting. Genitourinary: Negative for dysuria. Musculoskeletal: Negative for back pain, Positive for neck pain and neck stiffness. Skin: Negative for color change. Neurological: Negative for dizziness, speech difficulty, weakness and light- headedness. Psychiatric/Behavioral: Negative for agitation and confusion. The patient is not nervous/anxious. ROS Other: All systems not noted in ROS Statement are negative. Past Medical History Past Medical History: Asthma, Fibromyalgia, GERD/Reflux, Memory Impairment, Musculoskeletal Disorder, Sleep Apnea/CPAP/BIPAP, Thyroid Disorder Additional Past Medical History / Comment(s): Hx migraines, degenerative disc, IBS, no CPAP used. History of Any Multi-Drug Resistant Organisms: None Reported Past Surgical History: Breast Surgery Additional Past Surgical History / Comment(s): Dental, Breast biopsy. Past Anesthesia/Blood Transfusion Reactions: No Reported Reaction Past Psychological History: ADD/ADHD, Anxiety, Bipolar, Depression Smoking Status: Never smoker Past Alcohol Use History: Rare Past Drug Use History: None Reported - Past Family History Mother History Unknown: Yes Family Medical History: No Reported History General Exam - General Exam Comments Initial Comments: Physical Exam Constitutional: Pt is oriented to person, place, and time. Pt appears well- developed and well-nourished. No distress. HENT: Head: Normocephalic and atraumatic. Eyes: EOM are normal. Neck: Decreased range of motion of the neck. Tenderness to palpation just inferior to the occipital notch. There are no masses palpable. Cardiovascular: Normal rate, regular rhythm, S1 normal, S2 normal and normal heart sounds. Exam reveals no gallop and no friction rub. No murmur heard. Pulmonary/Chest: Effort normal and breath sounds normal. No tachypnea and no bradypnea. No respiratory distress. No wheezes or rales noted. Abdominal: Soft. Bowel sounds are normal. Pt exhibits no shifting dullness, no distension, no pulsatile liver, no fluid wave, no abdominal bruit and no ascites. There is no tenderness. There is no rigidity, no rebound, no guarding, no tenderness at McBurney's point and negative Aden's sign. Musculoskeletal: Normal range of motion. Neurological: Pt is alert and oriented to person, place, and time. No cranial nerve deficit. Skin: Skin is warm and dry. No rash noted. Pt is not diaphoretic. No erythema. No pallor. Psychiatric: Pt is very anxious and tearful. Thought content normal. Limitations: no limitations Course Vital Signs 09/01/17 23:15 Temperature 98.0 F Pulse Rate 79 Respiratory 16 Rate Blood Pressure 103/55 O2 Sat by Pulse 99 Oximetry - Reevaluation(s) Reevaluation #1: 09/02/17 00:19 Patient noted to be resting in bed comfortably in no acute distress although she has not yet received any kind of pain medicines. She is much happier and cheerful Medical Decision Making - Medical Decision Making Laboratory studies revealed that there is no leukocytosis and a letter lites were relatively within normal limits. Patient was given Robaxin as well as Toradol and stated that symptoms are improved. On reexamination, there was increased range of motion and decreased tenderness palpation. Etiology is unclear as CT of the neck with contrast was performed and showed no evidence of acute pathology. However, there was cervical herniation which the patient was already aware of. However, it issuspected that this is causing the pain and suboccipital neuralgia is a possible etiology. However, intramuscular injection of lidocaine was discussed with the patient and it was decided that because she is very sensitive the pain, injection may exacerbate symptoms. Therefore it was decided that this would be foregone and the patient will be given a prescription for lidocaine ointment as well as Robaxin. It is also not suspected that the lumbar puncture or blood patch is affecting the symptoms as the tenderness to palpation was more in the soft tissue just below the suboccipital notch. Patient was reexamined prior to d/c and found to be resting comfortably in bed in no acute distress. Explained all labs and diagnostic test results and that we will discharge the patient home and patient is to follow up with PCP in 1-2 days and return to the ED if symptoms worsen. Pt is agreeable to plan. - Lab Data Result diagrams: 09/02/17 00:12 09/02/17 00:12 Lab Results 09/02/17 09/02/17 Range/Units 00:12 00:12 WBC 10.5 (3.8-10.6) k/uL RBC 4.90 (3.80-5.40) m/uL Hgb 14.3 (11.4-16.0) gm/dL Hct 42.7 (34.0-46.0) % MCV 87.2 (80.0-100.0) fL MCH 29.3 (25.0-35.0) pg MCHC 33.6 (31.0-37.0) g/dL RDW 13.0 (11.5-15.5) % Plt Count 345 (150-450) k/uL Neutrophils % 63 % Lymphocytes % 28 % Monocytes % 4 % Eosinophils % 2 % Basophils % 1 % Neutrophils # 6.6 (1.3-7.7) k/uL Lymphocytes # 3.0 (1.0-4.8) k/uL Monocytes # 0.4 (0-1.0) k/uL Eosinophils # 0.3 (0-0.7) k/uL Basophils # 0.1 (0-0.2) k/uL Sodium 143 (137-145) mmol/L Potassium 3.9 (3.5-5.1) mmol/L Chloride 109 H (98-107) mmol/L Carbon Dioxide 18 L (22-30) mmol/L Anion Gap 16 mmol/L BUN 20 H (7-17) mg/dL Creatinine 0.90 (0.52-1.04) mg/dL Est GFR (CKD-EPI)AfAm >90 (>60 ml/min/1.73 sqM) Est GFR (CKD-EPI)NonAf 84 (>60 ml/min/1.73 sqM) Glucose 91 (74-99) mg/dL Calcium 10.0 (8.4-10.2) mg/dL Magnesium 2.0 (1.6-2.3) mg/dL Disposition Clinical Impression: Neck pain Disposition: HOME SELF-CARE Condition: Good Instructions: Neck Pain (ED) Prescriptions: Lidocaine 5% Oint [Xylocaine 5% Oint] 1 applic TOPICAL TID #1 tube Methocarbamol [Robaxin-750] 750 mg PO TID #21 tablet Is patient prescribed a controlled substance at d/c from ED?: No Referrals: Edgardo Inman MD [Primary Care Provider] - 1-2 days Time of Disposition: 01:15
[2017-09-02 00:38] LABS: Anion Gap 16 mmol/L; Blood Urea Nitrogen 20 mg/dL (7-17); Carbon Dioxide 18 mmol/L (22-30); Chloride 109 mmol/L (98-107); Glucose 91 mg/dL (74-99); Potassium 3.9 mmol/L (3.5-5.1); Sodium 143 mmol/L (137-145)
--- NOTE | 2017-09-02 01:10 | CT ---
EXAMINATION TYPE: CT soft tissue neck w con DATE OF EXAM: 09/02/2017 12:51 AM COMPARISON: NONE HISTORY: No prior, pt is s/p lumbar puncture 3 days ago, blood patch required, has headache and pain at base of skull, neg hcg CT DLP: 609.80 mGycm Automated exposure control for dose reduction was used. CONTRAST: CT scan of the neck is performed following with IV Contrast, patient injected with 100 mL of Isovue 3 00. Axial images are obtained, coronal and sagittal reformatted images are reviewed. FINDINGS: There is mild straightening of the cervical spine. Disc spaces are fairly well-maintained. Posterior elements are intact. There is a small posterior disc herniation at C6-7. There is a 6 mm spinal steno sis as a result. There is normal contrast opacification of the carotid arteries and jugular veins. There is normal bra nching pattern of the great vessels on the aortic arch. Thyroid gland is symmetric. I see no cervical adenopathy. Epiglottis is normal. Prevertebral soft tissues appear normal. The tonsils and adenoids are within normal limits. trachea appears normal. There is no evidence of a pharyngeal mass. Parotid glands are symmetric. Submandibular salivary glands are symmetric. I see no bony destructive process. The skull base appears intact. I see no pathologic enhancement. There is bilateral flow in the verte bral arteries. IMPRESSION: Negative CT scan of the neck soft tissues. There is posterior C6-7 cervical disc herniat ion and a mild relative spinal stenosis. No fracture seen.
[2017-09-02 01:41] VITALS: BP 117/64; PULSE 59; RESP 18; TEMP 98.1
== END 2017-09-02 01:40 | disposition home or self-care (01) ==
LOC: EC 23:10
DX: M54.2 Cervicalgia (principal); M79.7 Fibromyalgia; K21.9 Gastro-esophageal reflux disease without esophagitis; E07.9 Disorder of thyroid, unspecified; F90.9 Attention-deficit hyperactivity disorder, unspecified type; F41.9 Anxiety disorder, unspecified; F32.9 Major depressive disorder, single episode, unspecified; G47.30 Sleep apnea, unspecified; Z99.89 Dependence on other enabling machines and devices; Z86.69 Personal history of other diseases of the nervous system and sense organs; Z79.3 Long term (current) use of hormonal contraceptives; Z79.1 Long term (current) use of non-steroidal anti-inflammatories (NSAID); Z79.899 Other long term (current) drug therapy; Z88.6 Allergy status to analgesic agent; Z88.8 Allergy status to other drugs, medicaments and biological substances
CPT/HCPCS: 99284; 36415; 80048; 83735; 85025; 70491; 96374; 96375; J2930; J1885; Q9967

== ENCOUNTER → 2017-11-08 | Outpatient (CLI) | payer OTHER ==
[2017-11-07 11:59] VITALS: BMI 40.5
[2017-11-08 11:38] VITALS: BP 121/81; PULSE 78; RESP 16
--- NOTE | 2017-11-08 12:03 | P.CONS ---
History of Present Illness - Reason for Consult Consult date: 11/08/17 - Chief Complaint Low back and left leg pain - History of Present Illness This is a 32-year-old female with chronic lower back pain that started about 15 years ago with no precipitating events. The pain radiates down the left leg to the left foot and the patient states that she loses feeling in the left leg from time to time and this usually last for about half an hour. The patient was ruled out for multiple sclerosis by her neurologist. The pain increases by any Activity like walking or sitting for too long. There are no alleviating factors. The patient has been taking [place] 7.5 mg at least 1 pill per day from her primary care physician because of her lower back pain and history of fibromyalgia. She denies any bowel or bladder dysfunction. She feels occasional weakness in the left leg. Past Medical History Past Medical History: Asthma, Fibromyalgia, GERD/Reflux, Memory Impairment, Musculoskeletal Disorder, Sleep Apnea/CPAP/BIPAP, Thyroid Disorder Additional Past Medical History / Comment(s): Hx migraines, degenerative disc, IBS, no CPAP used. History of Any Multi-Drug Resistant Organisms: None Reported Past Surgical History: Breast Surgery Additional Past Surgical History / Comment(s): Dental, Breast biopsy. Past Anesthesia/Blood Transfusion Reactions: No Reported Reaction Past Psychological History: ADD/ADHD, Anxiety, Bipolar, Depression Smoking Status: Never smoker Past Alcohol Use History: Rare Past Drug Use History: None Reported - Past Family History Mother History Unknown: Yes Family Medical History: No Reported History Medications and Allergies Home Medications Medication Instructions Recorded Confirmed Type Levothyroxine Sodium [Synthroid] 50 mcg PO DAILY 05/05/14 11/08/17 History traZODone HCL [Desyrel] 100 mg PO HS 04/04/15 11/08/17 History HYDROcodone/APAP 7.5-325MG [[place] 1 tab PO TID PRN 05/01/16 11/08/17 History 7.5-325] Norethindrone-E.estradiol-Iron 1 tab PO HS 05/01/16 11/08/17 History [Loestrin Fe 1.5-30 Tablet] Pregabalin [Lyrica] 75 mg PO QAM 05/01/16 11/08/17 History busPIRone HCL 15 mg PO BID 05/01/16 11/08/17 History Albuterol Inhaler [Ventolin Hfa 2 puff INHALATION RT-Q6H PRN 05/23/16 11/08/17 History Inhaler] Meloxicam [Mobic] 15 mg PO DAILY 12/31/16 11/08/17 History Lisdexamfetamine Dimesylate 50 mg PO QAM 06/20/17 11/08/17 History [Vyvanse] Famotidine [Pepcid] 20 mg PO BID 07/19/17 11/08/17 History Topiramate [Trokendi Xr] 200 mg PO DAILY 07/19/17 11/08/17 History Venlafaxine HCl [Effexor XR] 225 mg PO HS 07/19/17 11/08/17 History Butalb/Acetaminophen/Caffeine 1 cap PO Q4HR PRN 08/28/17 11/08/17 History [Fioricet 50-300-40 mg Capsule] Ondansetron Odt [Zofran ODT] 8 mg PO Q8HR PRN 08/28/17 11/08/17 History Pregabalin [Lyrica] 150 mg PO HS 11/07/17 11/08/17 History Allergies Allergy/AdvReac Type Severity Reaction Status Date / Time tramadol Allergy Rash/Hives Verified 11/08/17 11:29 valacyclovir HCl AdvReac BLURRED Verified 11/08/17 11:29 [From Valtrex] VISION Physical Exam Vitals: Vital Signs Pulse Resp BP Pulse Ox 11/08/17 11:30 78 16 121/81 98 - Constitutional General appearance: morbidly obese - EENT Eyes: PERRLA - Respiratory Respiratory: bilateral: CTA - Cardiovascular Rhythm: regular Heart sounds: normal: S1, S2 - Neurologic Neurologic: CNII-XII intact - Psychiatric Psychiatric: A&O x's 3, appropriate affect, intact judgment & insight Neuro exam of the lower extremities showed normal and symmetrical deep tendon reflexes however she has weakness in the left leg for all movements 2 or 3 out of 5 compared to the right leg. There is no muscle wasting in the left leg. Straight leg raising test negative bilaterally. Alfred's test negative bilaterally. She has widespread tenderness on the left paravertebral musculature and the left buttock area also around the left greater trochanter. Facet loading test positive on the left side. Assessment and Plan Plan: This is a 32-year-old morbidly obese female with chronic history of lower back pain with radiation to the left lower extremity and occasional numbness and tingling in the leg. She also has weakness in the left lower extremity however there is no muscle wasting. 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 She uses [place] 7.5 mg once a day. By the lumbar spine MRI she has disc bulging With neural foraminal stenosis to a mild degree of the L5-S1 level on the left side. The patient may benefit from getting lumbar epidural steroid injection under fluoroscopic guidance at the L5-S1 level on the left paramedian approach. The patient had lumbar puncture to rule out multiple sclerosis recently and and was complicated by post dural puncture headache that was treated by epidural blood patch. Her headache has improved since then. The patient's questions were answered to her satisfaction and she was agreeable to the above-mentioned procedure was explained to her in details. I thank you for the referral
== END | disposition home or self-care (01) ==
LOC: PNWHC3 11:19
PROVIDERS: ATTEND Anesthesiology
DX: G89.29 Other chronic pain (principal); M99.73 Connective tissue and disc stenosis of intervertebral foramina of lumbar region; M99.74 Connective tissue and disc stenosis of intervertebral foramina of sacral region; M51.27 Other intervertebral disc displacement, lumbosacral region; J45.909 Unspecified asthma, uncomplicated; M79.7 Fibromyalgia; K21.9 Gastro-esophageal reflux disease without esophagitis; Z79.891 Long term (current) use of opiate analgesic; Z98.890 Other specified postprocedural states; Z79.899 Other long term (current) drug therapy; Z79.1 Long term (current) use of non-steroidal anti-inflammatories (NSAID); Z88.6 Allergy status to analgesic agent
CPT/HCPCS: 99211

== ENCOUNTER 2017-11-15 19:22 | Emergency (ER) | payer OTHER ==
--- NOTE | 2017-11-15 21:54 | ED ---
Animal Bite HPI - General Chief Complaint: Animal Bite Stated Complaint: Animal Bite Time Seen by Provider: 11/15/17 20:23 Source: patient Mode of arrival: ambulatory Limitations: no limitations - History of Present Illness Initial Comments: This is a 32-year-old female asthma, thyroid disorder, febrile just who presents today after being scratched by earlier in the day. He states that 8: 00 this morning she was trying to rescue a stray kitten, and attempt to get up the kitten a bit and scratched her hands. 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 Pt used antibiotics for her hands in attempt to cleanse her hands. Pt stated that while at works the scratches were stingy so she presented to the emergency department. Denies erythema, drainage or active bleeding from scratches. Patient denies any recent fever, chills, shortness of breath, chest pain, back pain, abdominal pain, nausea or vomiting, numbness or tingling, dysuria or hematuria, constipation or diarrhea, headaches or visual changes, or any other complaints. - Related Data Home Medications Medication Instructions Recorded Confirmed Levothyroxine Sodium [Synthroid] 50 mcg PO DAILY 05/05/14 11/15/17 traZODone HCL [Desyrel] 100 mg PO HS 04/04/15 11/15/17 HYDROcodone/APAP 7.5-325MG [[place] 1 tab PO TID PRN 05/01/16 11/15/17 7.5-325] Norethindrone-E.estradiol-Iron 1 tab PO HS 05/01/16 11/15/17 [Loestrin Fe 1.5-30 Tablet] Pregabalin [Lyrica] 75 mg PO QAM 05/01/16 11/15/17 busPIRone HCL 15 mg PO BID 05/01/16 11/15/17 Albuterol Inhaler [Ventolin Hfa 2 puff INHALATION RT-Q6H PRN 05/23/16 11/15/17 Inhaler] Meloxicam [Mobic] 15 mg PO DAILY 12/31/16 11/15/17 Lisdexamfetamine Dimesylate 50 mg PO QAM 06/20/17 11/15/17 [Vyvanse] Famotidine [Pepcid] 20 mg PO BID 07/19/17 11/15/17 Topiramate [Trokendi Xr] 200 mg PO DAILY 07/19/17 11/15/17 Venlafaxine HCl [Effexor XR] 225 mg PO HS 07/19/17 11/15/17 Butalb/Acetaminophen/Caffeine 1 cap PO Q4HR PRN 08/28/17 11/15/17 [Fioricet 50-300-40 mg Capsule] Ondansetron Odt [Zofran ODT] 8 mg PO Q8HR PRN 08/28/17 11/15/17 Pregabalin [Lyrica] 150 mg PO HS 11/07/17 11/15/17 Previous Rx's Medication Instructions Recorded Amoxicillin/Potassium Clav 1 tab PO Q12HR 5 Days #10 tab 11/15/17 [Augmentin 875-125 Tablet] Allergies Allergy/AdvReac Type Severity Reaction Status Date / Time tramadol Allergy Rash/Hives Verified 11/15/17 20:28 valacyclovir HCl AdvReac BLURRED Verified 11/15/17 20:28 [From Valtrex] VISION Review of Systems ROS Statement: Those systems with pertinent positive or pertinent negative responses have been documented in the HPI. ROS Other: All systems not noted in ROS Statement are negative. Constitutional: Denies: fever, chills Eyes: Denies: vision change ENT: Denies: hearing loss Respiratory: Denies: cough, dyspnea Cardiovascular: Denies: chest pain, palpitations Endocrine: Denies: fatigue Gastrointestinal: Denies: abdominal pain, nausea, vomiting, diarrhea, constipation Genitourinary: Denies: urgency, dysuria, frequency, hematuria Musculoskeletal: Denies: as per HPI Skin: Denies: as per HPI, rash, lesions Neurological: Denies: headache Past Medical History Past Medical History: Asthma, Fibromyalgia, GERD/Reflux, Memory Impairment, Musculoskeletal Disorder, Sleep Apnea/CPAP/BIPAP, Thyroid Disorder Additional Past Medical History / Comment(s): Hx migraines, degenerative disc, IBS, no CPAP used. History of Any Multi-Drug Resistant Organisms: None Reported Past Surgical History: Breast Surgery Additional Past Surgical History / Comment(s): Dental, Breast biopsy. Past Anesthesia/Blood Transfusion Reactions: No Reported Reaction Past Psychological History: ADD/ADHD, Anxiety, Bipolar, Depression Smoking Status: Never smoker Past Alcohol Use History: Rare Past Drug Use History: None Reported - Past Family History Mother History Unknown: Yes Family Medical History: No Reported History General Exam - General Exam Comments Initial Comments: General: The patient is awake and alert, in no distress, and does not appear acutely ill. Eye: Pupils are equal, round and reactive to light, extra-ocular movements are intact. No nystagmus. There is normal conjunctiva bilaterally. No signs of icterus. Ears, nose, mouth and throat: There are moist mucous membranes and no oral lesions. Neck: The neck is supple, there is no tenderness or JVD. Cardiovascular: There is a regular rate and rhythm. No murmur, rub or gallop is appreciated. Respiratory: Lungs are clear to auscultation, respirations are non-labored, breath sounds are equal. No wheezes, stridor, rales, or rhonchi. Musculoskeletal: Normal ROM, no tenderness. Strength 5/5. Sensation intact. Pulses equal bilaterally 2+. Neurological: A&O x 3. CN II-XII intact, There are no obvious motor or sensory deficits. Coordination appears grossly intact. Speech is normal. Skin: Skin is warm and dry and no rashes or lesions are noted. Multiple very superficial lesions over the knuckles of the hands there are maybe 6 total, most pin point in size, with the largest 3/4cm with no depth. No surrounding erythema or drainage. Psychiatric: Cooperative, appropriate mood & affect, normal judgment. Limitations: no limitations Course Vital Signs 11/15/17 19:44 Temperature 98.5 F Pulse Rate 80 Respiratory 18 Rate Blood Pressure 103/69 O2 Sat by Pulse 100 Oximetry Medical Decision Making - Medical Decision Making This is a 32-year-old female with past medical history of thyroid disease, viral myalgia of asthma who presents today for Scratches. Upon physical examination is a very superficial cat scratches over the knuckles most pinpoint with the largest being a superficial 3/4 centimeter scratch on the 4th digit of the left hand. Upreg (-) pt was discharged on prescription of Augmentin 875/ 125mg x5 days. Pt stated that she isnt in much pain and will take OTC ubuprofen if needed for pain. Told to follow-up with PCP in 1-2 days and to return to the ER if symptoms worsen. Case was discussed with Dr. Anderson and pt was discharged in stable condition. VS WNL. - Lab Data Lab Results 11/15/17 Range/Units 21:55 Urine HCG, Qual Not Detected (Not Detectd) Disposition Clinical Impression: Cat scratch, Cat bite Disposition: HOME SELF-CARE Condition: Good Instructions: Animal Bite (ED) Additional Instructions: Please use medication as discussed. Please follow-up with family doctor in the next 2 days of symptoms have not improved. Please return to emergency room if the symptoms increase or worsen or for any other concerns. Prescriptions: Amoxicillin/Potassium Clav [Augmentin 875-125 Tablet] 1 tab PO Q12HR 5 Days #10 tab Is patient prescribed a controlled substance at d/c from ED?: No Referrals: Edgardo Inman MD [Primary Care Provider] - 1-2 days
[2017-11-15 22:32] VITALS: BP 119/71; PULSE 58; RESP 20; TEMP 98.1
== END 2017-11-15 22:25 | disposition home or self-care (01) ==
LOC: EC 19:22
DX: S60.415A Abrasion of left ring finger, initial encounter (principal); S60.512A Abrasion of left hand, initial encounter; S60.511A Abrasion of right hand, initial encounter; J45.909 Unspecified asthma, uncomplicated; K21.9 Gastro-esophageal reflux disease without esophagitis; M79.7 Fibromyalgia; E07.9 Disorder of thyroid, unspecified; F31.9 Bipolar disorder, unspecified; F41.9 Anxiety disorder, unspecified; F90.9 Attention-deficit hyperactivity disorder, unspecified type; Z79.1 Long term (current) use of non-steroidal anti-inflammatories (NSAID); Z79.3 Long term (current) use of hormonal contraceptives; Z79.899 Other long term (current) drug therapy; Z88.5 Allergy status to narcotic agent; Z88.8 Allergy status to other drugs, medicaments and biological substances; Z86.69 Personal history of other diseases of the nervous system and sense organs; W55.03XA Scratched by cat, initial encounter; Y93.89 Activity, other specified
CPT/HCPCS: 81025; 99283

== ENCOUNTER 2017-11-21 06:13 | Day surgery (SDC) | payer OTHER ==
[2017-11-16 14:53] VITALS: BMI 40.7
[~2017-11-21 06:13] MED LIST changes: -MIDAZOLAM (PF) 1 MG/ML 5 ML VIAL IV ONE; -MIDAZOLAM 2 MG/2 ML VIAL IV ONE; -fentaNYL (PF) 50 MCG/ML 2 ML AMP IVP ONE; -fentaNYL (PF) 50 MCG/ML 5 ML AMP IVP ONE
[2017-11-21 06:43] VITALS: RESP 16; TEMP 95.4
[2017-11-21] MEDS ORDERED: LIDOCAINE 1% 20 ML VIAL (10MG/ML) FOR IV START INTRADERMA ONE (06:58)
--- NOTE | 2017-11-21 07:16 | P.PCN ---
Date of Procedure: 11/21/17 Procedure(s) Performed: PREOPERATIVE DIAGNOSIS: 1- Lumbar Degenerative Disc Diseases 2-Lumbar radiculopathy. POSTOPERATIVE DIAGNOSIS: Same as preoperative diagnosis PROCEDURE 1. Lumbar epidural steroid injection under fluoroscopic guidance at the L5-S1 level. ( left paramedian approach ) 2. Lumbar epidurogram. ANESTHESIA: Local with 1% lidocaine 3 ml and , moderate sedation with intravenous Versed 2 mg ,and fentanyle 100 Mcg EBL: Minimal PROCEDURE INDICATION: The patient with low back pain and radiculitis symptoms unresponsive to conservative treatment. Fluoroscopy was used to optimize visualization of the needle placement and to maximize safety. PROCEDURE DESCRIPTION / TECHNIQUE: The patient was seen and identified in the preoperative area. Risks, benefits , complications including but not limited to infections ,bleeding ,allergic reaction to the medications ,nerve damage and not complete pain releife , and alternatives were discussed with the patient. The patient agreed to proceed with the procedure and signed the consent. IV was started, and vital signs were stable. Patient was taken to the OR and time out was completed. The patient was placed in the prone position on procedure table and a pillow was placed under the abdomen to reduce lumbar lordosis. The lumbosacral area was prepped and draped in the usual sterile fashion.ere closely monitored during the procedure. Conscious sedation was used during the procedure to decrease patients anxiety. Vital signs was monitered during the entire procedure. Using anterior-posterior fluoroscopy, the L5-S1 interlaminar space was identified and the skin over this site was marked and then infiltrated with 1% lidocaine subcutaneously. Subsequently, a 20-gauge Tuohy epidural needle was inserted and advanced toward the epidural space using the ``Loss of resistance technique and guided by AP and lateral fluoroscopy. The correct needle position in the epidural space was verified with the injection of 2 mL of the water soluble contrast dye Isovue 200 contrast and observing an excellent epidurogram with the epidural spread of the dye, after negative aspiration for blood and CSF and in the absence of paresthesias. Again after negative aspiration, a 6 ml mixture containing 80 mg Depo-Medrol, and 2 ml of preservative free Normal Saline, and 2 ml of preservative free lidocaine 1% solution was injected and a washout of epidurogram was seen. Needle was withdrawn intact, skin was cleansed, and bandages were applied. COMPLICATIONS: None DISPOSITION / PLANS: The patient was placed in a supine position and transferred to the recovery area in a stable condition for observation. There was no evidence of lower extremity motor or sensory deficit after the procedure. Patient was discharged from the recovery room after meeting discharge criteria. Home discharge instructions were given to the patient by the staff. The patient was reexamined prior to discharge. The patient will schedule a follow up in the clinic in 2-4 weeks.
[2017-11-21] MEDS ORDERED: IV FLUID CONTINUATION 1,000 ML IV ONE ×2 (07:21)
[2017-11-21 07:36] VITALS: BP 104/71; PULSE 59
--- NOTE | 2017-11-21 10:07 | FL ---
Fluoroscopy HISTORY: Pain 3 seconds fluoroscopy time supplied to the referring clinician. 1 intraoperative C-arm images docume nt the procedure. See dictated report from anesthesia.
== END 2017-11-21 07:54 | disposition home or self-care (01) ==
LOC: ORPAIN 06:13
PROVIDERS: ATTEND Specialist
DX: M51.16 Intervertebral disc disorders with radiculopathy, lumbar region (principal); J45.909 Unspecified asthma, uncomplicated; G47.33 Obstructive sleep apnea (adult) (pediatric); K58.9 Irritable bowel syndrome, unspecified
CPT/HCPCS: 81025; 62323; J2250; J1030; J3010; Q9966

== ENCOUNTER 2017-12-06 06:39 | Day surgery (SDC) | payer OTHER ==
[2017-12-05 08:55] VITALS: BMI 40.7
[2017-12-06 07:19] VITALS: TEMP 98.2
[2017-12-06] MEDS: LACTATED RINGERS 1,000 ML IV SCH ×2 (07:19→07:25)
[2017-12-06] MEDS ORDERED: LIDOCAINE 1% 20 ML VIAL (10MG/ML) FOR IV START INTRADERMA ONE (07:20)
--- NOTE | 2017-12-06 07:31 | P.PCN ---
Date of Procedure: 12/06/17 Surgeon: Deniz Barry Description of Procedure: PREOPERATIVE DIAGNOSIS: Herniated nucleus pulposus, left lumbar radiculopathy POSTOPERATIVE DIAGNOSIS: Same PROCEDURE Lumbar epidural steroid injection under fluoroscopic guidance at the L4 5 level. ANESTHESIA: Local with 1% lidocaine 3 ml and IV sedation with Versed 2 mg EBL: Minimal PROCEDURE INDICATION: This is a pleasant 32-year-old woman with a history of left lumbar radicular pain. She presents today for her second lumbar epidural steroid injection. She reports greater than 50% reduction of her symptoms from her first procedure. PROCEDURE DESCRIPTION / TECHNIQUE: The patient was seen and identified in the preoperative area. Risks, benefits , complications including but not limited to infections ,bleeding ,allergic reaction to the medications ,nerve damage and not complete pain relief , and alternatives were discussed with the patient. The patient agreed to proceed with the procedure and signed the consent. IV was started, and vital signs were stable. Patient was taken to the OR and time out was completed. The patient was placed in the prone position on procedure table and a pillow was placed under the abdomen to reduce lumbar lordosis. The lumbosacral area was prepped and draped in the usual sterile fashion.ere closely monitored during the procedure. Conscious sedation was used during the procedure to decrease patients anxiety. Vital signs was monitered during the entire procedure. Using anterior-posterior fluoroscopy, the L5-S1 interlaminar space was identified and the skin over this site was marked and then infiltrated with 1% lidocaine subcutaneously. Subsequently, a 20-gauge Tuohy epidural needle was inserted and advanced toward the epidural space using the Loss of resistance technique and guided by AP and lateral fluoroscopy. The correct needle position in the epidural space was verified with the injection of contrast and observing an excellent epidurogram with the epidural spread of the dye, after negative aspiration for blood and CSF and in the absence of paresthesias. Again after negative aspiration, a 6 ml mixture containing 80 mg of Depo-Medrol was injected and a washout of epidurogram was seen. Needle was withdrawn intact, skin was cleansed, and bandages were applied. COMPLICATIONS: None DISPOSITION / PLANS: The patient was placed in a supine position and transferred to the recovery area in a stable condition for observation. There was no evidence of lower extremity motor or sensory deficit after the procedure. Patient was discharged from the recovery room after meeting discharge criteria. Home discharge instructions were given to the patient by the staff. The patient was reexamined prior to discharge. The patient will schedule a follow up in the clinic in 2-4 weeks.
[2017-12-06] MEDS ORDERED: IV FLUID CONTINUATION 1,000 ML IV ONE (07:43)
[2017-12-06 07:46] VITALS: RESP 16
[2017-12-06 07:59] VITALS: BP 110/78; PULSE 60
--- NOTE | 2017-12-06 08:09 | FL ---
EXAMINATION TYPE: FL guided pain mgmt statistic DATE OF EXAM: 12/06/2017 HISTORY: Pain LUMBAR EPIDURAL STEROID DR. ZEPEDA 1 SECS AND 1 PAPER
== END 2017-12-06 08:05 | disposition home or self-care (01) ==
LOC: ORPAIN 06:39
PROVIDERS: ATTEND Pain Medicine Pain Medicine
DX: M51.16 Intervertebral disc disorders with radiculopathy, lumbar region (principal); F32.9 Major depressive disorder, single episode, unspecified; K21.9 Gastro-esophageal reflux disease without esophagitis; M79.7 Fibromyalgia; F41.9 Anxiety disorder, unspecified; Z88.5 Allergy status to narcotic agent; Z88.8 Allergy status to other drugs, medicaments and biological substances
CPT/HCPCS: 81025; 62323; J2250; J1030; J3010

== ENCOUNTER 2017-12-19 04:34 | Inpatient (IN) | payer OTHER ==
[2017-12-19] MEDS ORDERED: ONDANSETRON 4 MG/2 ML VIAL IVP STA (04:54)
[2017-12-19 05:18] LABS: Basophils % (A) 0 %; Eosinophils # (A) 0.2 k/uL (0-0.7); Eosinophils % (A) 1 %; HCT 44.4 % (34.0-46.0); HGB 14.1 gm/dL (11.4-16.0); Lymphocytes # (A) 2.5 k/uL (1.0-4.8); Lymphocytes % (A) 23 %; MCH 28.6 pg (25.0-35.0); MCHC 31.8 g/dL (31.0-37.0); MCV 90.1 fL (80.0-100.0); Mean Platelet Volume 7.1; Monocytes # (A) 0.4 k/uL (0-1.0); Monocytes % (A) 3 %; Neutrophils % (A) 72 %; Platelet Count 326 k/uL (150-450); RBC 4.93 m/uL (3.80-5.40); RDW 13.3 % (11.5-15.5); WBC 11.1 k/uL (3.8-10.6)
[2017-12-19 05:32] LABS: ALT 45 U/L (9-52); AST 34 U/L (14-36); Albumin 3.8 g/dL (3.5-5.0); Alkaline Phosphatase 53 U/L (38-126); Anion Gap 6 mmol/L; Blood Urea Nitrogen 18 mg/dL (7-17); Calcium 9.2 mg/dL (8.4-10.2); Carbon Dioxide 25 mmol/L (22-30); Chloride 108 mmol/L (98-107); Glucose 120 mg/dL (74-99); Potassium 4.2 mmol/L (3.5-5.1); Sodium 139 mmol/L (137-145); Total Bilirubin 0.2 mg/dL (0.2-1.3); Total Protein 6.6 g/dL (6.3-8.2)
[2017-12-19 05:38] LABS: Amorphous Sediment,Urine Rare /hpf; Appearance,Urine Turbid (Clear); Bacteria,Urine Occasional /hpf; Bilirubin,Urine Negative (Negative); Blood,Urine Small (Negative); Color,Urine Yellow; Glucose,Urine (UA) Negative (Negative); Ketones,Urine Negative (Negative); Leukocyte Esterase,Urine Small (Negative); Mucus,Urine Rare /hpf; Nitrite,Urine Negative (Negative); Protein,Urine Negative (Negative); Specific Gravity,Urine 1.015 (1.001-1.035); Squamous Epithelial Cell,Urine 8 /hpf (0-4); Urobilinogen,Urine <2.0 mg/dL (<2.0); WBC,Urine 6 /hpf (0-5)
[2017-12-19] MEDS ORDERED: MORPHINE SULFATE 2 MG/ML SYRINGE IVP PRN (05:47)
[2017-12-19] MEDS ORDERED: MORPHINE SULFATE 2 MG/ML SYRINGE IVP STA (05:50)
[2017-12-19] MEDS ORDERED: metroNIDAZOLE-NS PMX 500 MG in SALINE 1 100ML.BAG IVPB STA (06:58)
--- NOTE | 2017-12-19 07:02 | CT ---
EXAMINATION TYPE: CT abdomen pelvis w con DATE OF EXAM: 12/19/2017 COMPARISON: 12/31/2016 HISTORY: Pelvic pain CT DLP: 2409.3 mGycm Automated exposure control for dose reduction was used. TECHNIQUE: Helical acquisition of images was performed from the lung bases through the pelvis. CONTRAST: Performed without Oral Contrast and with IV Contrast, patient injected with 100 mL of Isovue 300. FINDINGS: There is some linear mild infiltrate and atelectasis at the lateral right lung base. There is no pleu ral effusion. Heart size is normal. Liver spleen pancreas gallbladder appear normal. Bile ducts are not dilated. There is no adrenal mass. There is a moderate pneumoperitoneum. There is normal contrast opacificatio n the kidneys. There is no hydronephrosis. There is some free fluid in the cul-de-sac. Bladder distends smoothly. The lumbar spine is intact. Th ere is small umbilical hernia. There is some mild fat stranding around the mid sigmoid colon. There i s also a 1 cm air bubble anterior and medial to the sigmoid colon. IMPRESSION: THERE IS PNEUMOPERITONEUM. THIS IS PROBABLY DUE TO RUPTURED DIVERTICULUM. NORMAL APPENDIX. INFLAMMATO RY CHANGES AROUND THE PROXIMAL SIGMOID COLON CONSISTENT WITH DIVERTICULITIS. SIGMOID DIVERTICULOSIS. THIS EXAM WAS DISCUSSED WITH ER PHYSICIAN AT 7:00 AM. MILD INFILTRATE AT THE RIGHT LUNG BASE. MINIMAL FREE FLUID IN THE PELVIS.
[2017-12-19] MEDS ORDERED: cefTRIAXone IN SWFI 1,000 MG/10 ML SYRINGE IVP STA (07:09)
--- NOTE | 2017-12-19 07:15 | ED ---
General Adult HPI - General Chief complaint: Abdominal Pain Stated complaint: abd pain Source: patient Mode of arrival: ambulatory Limitations: no limitations - History of Present Illness Initial comments: Dictation was produced using [employer] dictation software. please excuse any grammatical, word or spelling errors. Chief Complaint: 32-year-old female past medical history of asthma, fibromyalgia, panic pain, sleep apnea presents with abdominal pain since 3 AM. History of Present Illness: Patient states that she was in bed when proximally 3 AM she was awoken with pain. Patient went to the restroom and had a bowel movement which she says was well-formed. Patient admits to being at baseline last night prior to going to bed. States that the pain is severe and localized to the bilateral lower quadrants. Denies any constitutional symptoms. Patient was nauseated however denies any vomiting. The ROS documented in this emergency department record has been reviewed and confirmed by me. Those systems with pertinent positive or negative responses have been documented in the HPI. All other systems are other negative and/or noncontributory. - Related Data Home Medications Medication Instructions Recorded Confirmed Levothyroxine Sodium [Synthroid] 50 mcg PO DAILY 05/05/14 12/19/17 traZODone HCL [Desyrel] 100 mg PO HS 04/04/15 12/19/17 HYDROcodone/APAP 7.5-325MG [[place] 1 tab PO TID PRN 05/01/16 12/19/17 7.5-325] Norethindrone-E.estradiol-Iron 1 tab PO HS 05/01/16 12/19/17 [Loestrin Fe 1.5-30 Tablet] Pregabalin [Lyrica] 75 mg PO QAM 05/01/16 12/19/17 busPIRone HCL 15 mg PO BID 05/01/16 12/19/17 Albuterol Inhaler [Ventolin Hfa 2 puff INHALATION RT-Q6H PRN 05/23/16 12/19/17 Inhaler] Meloxicam [Mobic] 15 mg PO DAILY 12/31/16 12/19/17 Lisdexamfetamine Dimesylate 50 mg PO QAM 06/20/17 12/19/17 [Vyvanse] Famotidine [Pepcid] 20 mg PO BID 07/19/17 12/19/17 Topiramate [Trokendi Xr] 200 mg PO DAILY 07/19/17 12/19/17 Venlafaxine HCl [Effexor XR] 225 mg PO HS 07/19/17 12/19/17 Butalb/Acetaminophen/Caffeine 1 cap PO Q4HR PRN 08/28/17 12/19/17 [Fioricet 50-300-40 mg Capsule] Ondansetron Odt [Zofran ODT] 8 mg PO Q8HR PRN 08/28/17 12/19/17 Pregabalin [Lyrica] 150 mg PO HS 11/07/17 12/19/17 Methocarbamol [Robaxin-750] 750 mg PO TID 11/16/17 12/19/17 Allergies Allergy/AdvReac Type Severity Reaction Status Date / Time tramadol Allergy Hallucinati Verified 12/06/17 07:12 ons valacyclovir HCl AdvReac BLURRED Verified 12/06/17 07:12 [From Valtrex] VISION Review of Systems ROS Statement: Those systems with pertinent positive or pertinent negative responses have been documented in the HPI. ROS Other: All systems not noted in ROS Statement are negative. Past Medical History Past Medical History: Asthma, Fibromyalgia, GERD/Reflux, Memory Impairment, Musculoskeletal Disorder, Sleep Apnea/CPAP/BIPAP, Thyroid Disorder Additional Past Medical History / Comment(s): Hx migraines, degenerative disc, IBS, no CPAP used. History of Any Multi-Drug Resistant Organisms: None Reported Past Surgical History: Breast Surgery Additional Past Surgical History / Comment(s): Dental, Breast biopsy. Past Anesthesia/Blood Transfusion Reactions: No Reported Reaction Past Psychological History: ADD/ADHD, Anxiety, Bipolar, Depression Smoking Status: Never smoker Past Alcohol Use History: Rare Past Drug Use History: None Reported - Past Family History Mother History Unknown: Yes Family Medical History: No Reported History General Exam - General Exam Comments Initial Comments: PHYSICAL EXAM: General Impression: Alert and oriented x3, acute distress secondary to pain HEENT: Normocephalic atraumatic, extra-ocular movements intact, pupils equal and reactive to light bilaterally, mucous membranes moist. Cardiovascular: Heart regular rate and rhythm, S1&S2 audible, no murmurs, rubs or gallops Chest: Lungs clear to auscultation bilaterally, no rhonchi, no wheeze, no rales Abdomen: Diffuse abdominal tenderness worse in the left lower quadrant Musculoskeletal: Pulses present and equal in all extremities, no peripheral edema Motor: Power 5/5 bilaterally, no focal deficits noted Neurological: CN II-XII grossly intact, no focal motor or sensory deficits noted Skin: Intact with no visualized rashes Psych: Normal affect and mood Limitations: no limitations Course Vital Signs 12/19/17 12/19/17 04:39 05:54 Temperature 98.5 F 98.2 F Pulse Rate 69 61 Respiratory 20 18 Rate Blood Pressure 123/84 109/56 O2 Sat by Pulse 99 98 Oximetry Medical Decision Making - Medical Decision Making ED course: 32-year-old female presents with acute onset abdominal pain. Vital signs upon arrival are within acceptable limits. Laboratory evaluation obtained. Mild leukocytosis of 11.1. Metabolic panel shows mild hyperglycemia 120. Urinalysis is a dirty catch. Patient denies any urinary symptoms. Urine hCG is negative. She was given analgesics with improvement of symptoms. CT abdomen and pelvis was obtained given that patient had severe symptoms upon initial presentation. Computed tomography scan of the abdomen and pelvis shows pneumoperitoneum likely secondary to ruptured diverticulum. Patient mainly started on ceftriaxone and Flagyl. Pending discussion with general surgeon. Discussed patient case with general surgeon Dr. Meadows. He requests patient will receive a Christian, antibiotics and IV fluids. Condition is discussed patient was understandable and agreeable to plan. Patient be admitted to general surgery. - Lab Data Result diagrams: 12/19/17 05:00 12/19/17 05:00 Lab Results 12/19/17 12/19/17 12/19/17 Range/Units 05:00 05:00 05:00 WBC 11.1 H (3.8-10.6) k/uL RBC 4.93 (3.80-5.40) m/uL Hgb 14.1 (11.4-16.0) gm/dL Hct 44.4 (34.0-46.0) % MCV 90.1 (80.0-100.0) fL MCH 28.6 (25.0-35.0) pg MCHC 31.8 (31.0-37.0) g/dL RDW 13.3 (11.5-15.5) % Plt Count 326 (150-450) k/uL Neutrophils % 72 % Lymphocytes % 23 % Monocytes % 3 % Eosinophils % 1 % Basophils % 0 % Neutrophils # 8.0 H (1.3-7.7) k/uL Lymphocytes # 2.5 (1.0-4.8) k/uL Monocytes # 0.4 (0-1.0) k/uL Eosinophils # 0.2 (0-0.7) k/uL Basophils # 0.0 (0-0.2) k/uL Sodium 139 (137-145) mmol/L Potassium 4.2 (3.5-5.1) mmol/L Chloride 108 H (98-107) mmol/L Carbon Dioxide 25 (22-30) mmol/L Anion Gap 6 mmol/L BUN 18 H (7-17) mg/dL Creatinine 0.90 (0.52-1.04) mg/dL Est GFR (CKD-EPI)AfAm >90 (>60 ml/min/1.73 sqM) Est GFR (CKD-EPI)NonAf 84 (>60 ml/min/1.73 sqM) Glucose 120 H (74-99) mg/dL Calcium 9.2 (8.4-10.2) mg/dL Total Bilirubin 0.2 (0.2-1.3) mg/dL AST 34 (14-36) U/L ALT 45 (9-52) U/L Alkaline Phosphatase 53 (38-126) U/L Total Protein 6.6 (6.3-8.2) g/dL Albumin 3.8 (3.5-5.0) g/dL Urine Color Urine Appearance (Clear) Urine pH (5.0-8.0) Ur Specific Antoine (1.001-1.035) Urine Protein (Negative) Urine Glucose (UA) (Negative) Urine Ketones (Negative) Urine Blood (Negative) Urine Nitrite (Negative) Urine Bilirubin (Negative) Urine Urobilinogen (<2.0) mg/dL Ur Leukocyte Esterase (Negative) Urine WBC (0-5) /hpf Ur Squamous Epith Cells (0-4) /hpf Amorphous Sediment (None) /hpf Urine Bacteria (None) /hpf Urine Mucus (None) /hpf Urine HCG, Qual Not Detected (Not Detectd) 12/19/17 Range/Units 05:00 WBC (3.8-10.6) k/uL RBC (3.80-5.40) m/uL Hgb (11.4-16.0) gm/dL Hct (34.0-46.0) % MCV (80.0-100.0) fL MCH (25.0-35.0) pg MCHC (31.0-37.0) g/dL RDW (11.5-15.5) % Plt Count (150-450) k/uL Neutrophils % % Lymphocytes % % Monocytes % % Eosinophils % % Basophils % % Neutrophils # (1.3-7.7) k/uL Lymphocytes # (1.0-4.8) k/uL Monocytes # (0-1.0) k/uL Eosinophils # (0-0.7) k/uL Basophils # (0-0.2) k/uL Sodium (137-145) mmol/L Potassium (3.5-5.1) mmol/L Chloride (98-107) mmol/L Carbon Dioxide (22-30) mmol/L Anion Gap mmol/L BUN (7-17) mg/dL Creatinine (0.52-1.04) mg/dL Est GFR (CKD-EPI)AfAm (>60 ml/min/1.73 sqM) Est GFR (CKD-EPI)NonAf (>60 ml/min/1.73 sqM) Glucose (74-99) mg/dL Calcium (8.4-10.2) mg/dL Total Bilirubin (0.2-1.3) mg/dL AST (14-36) U/L ALT (9-52) U/L Alkaline Phosphatase (38-126) U/L Total Protein (6.3-8.2) g/dL Albumin (3.5-5.0) g/dL Urine Color Yellow Urine Appearance Turbid H (Clear) Urine pH 7.0 (5.0-8.0) Ur Specific Antoine 1.015 (1.001-1.035) Urine Protein Negative (Negative) Urine Glucose (UA) Negative (Negative) Urine Ketones Negative (Negative) Urine Blood Small H (Negative) Urine Nitrite Negative (Negative) Urine Bilirubin Negative (Negative) Urine Urobilinogen <2.0 (<2.0) mg/dL Ur Leukocyte Esterase Small H (Negative) Urine WBC 6 H (0-5) /hpf Ur Squamous Epith Cells 8 H (0-4) /hpf Amorphous Sediment Rare H (None) /hpf Urine Bacteria Occasional H (None) /hpf Urine Mucus Rare H (None) /hpf Urine HCG, Qual (Not Detectd) Disposition Clinical Impression: Pneumoperitoneum Disposition: ADMITTED IP TO THIS HOSP Condition: Poor Referrals: Edgardo Inman MD [Primary Care Provider] - 1-2 days Time of Disposition: 07:24
[2017-12-19] MEDS ORDERED: NALOXONE 0.4 MG/ML 1 ML VIAL IV PRN ×2 (07:18→10:34)
[2017-12-19] MEDS ORDERED: ONDANSETRON 4 MG/2 ML VIAL IVP PRN (07:18)
[2017-12-19] MEDS ORDERED: MORPHINE SULFATE 4 MG/ML SYRINGE IV PRN (07:18)
--- NOTE | 2017-12-19 09:21 | P.GSHP ---
History of Present Illness H&P Date: 12/19/17 Chief Complaint: Perforated diverticulitis This is a 32-year-old female who awoke suddenly at 2 AM with severe 10 out of 10 abdominal pain. Patient was worked up and on CAT scan is found have evidence of a large amount of free air and sigmoid colon inflammation. Past Medical History Past Medical History: Asthma, Fibromyalgia, GERD/Reflux, Memory Impairment, Musculoskeletal Disorder, Sleep Apnea/CPAP/BIPAP, Thyroid Disorder Additional Past Medical History / Comment(s): Hx migraines, degenerative disc, IBS, no CPAP used. History of Any Multi-Drug Resistant Organisms: None Reported Past Surgical History: Breast Surgery Additional Past Surgical History / Comment(s): Dental, Breast biopsy. Past Anesthesia/Blood Transfusion Reactions: No Reported Reaction Past Psychological History: ADD/ADHD, Anxiety, Bipolar, Depression Smoking Status: Never smoker Past Alcohol Use History: Rare Past Drug Use History: None Reported - Past Family History Mother History Unknown: Yes Family Medical History: No Reported History Medications and Allergies Home Medications Medication Instructions Recorded Confirmed Type Levothyroxine Sodium [Synthroid] 50 mcg PO DAILY 05/05/14 12/19/17 History traZODone HCL [Desyrel] 100 mg PO HS 04/04/15 12/19/17 History HYDROcodone/APAP 7.5-325MG [Odon 1 tab PO TID PRN 05/01/16 12/19/17 History 7.5-325] Norethindrone-E.estradiol-Iron 1 tab PO HS 05/01/16 12/19/17 History [Loestrin Fe 1.5-30 Tablet] Pregabalin [Lyrica] 75 mg PO QAM 05/01/16 12/19/17 History busPIRone HCL 15 mg PO BID 05/01/16 12/19/17 History Albuterol Inhaler [Ventolin Hfa 2 puff INHALATION RT-Q6H PRN 05/23/16 12/19/17 History Inhaler] Meloxicam [Mobic] 15 mg PO DAILY 12/31/16 12/19/17 History Lisdexamfetamine Dimesylate 50 mg PO QAM 06/20/17 12/19/17 History [Vyvanse] Famotidine [Pepcid] 20 mg PO BID 07/19/17 12/19/17 History Topiramate [Trokendi Xr] 200 mg PO DAILY 07/19/17 12/19/17 History Venlafaxine HCl [Effexor XR] 225 mg PO HS 07/19/17 12/19/17 History Butalb/Acetaminophen/Caffeine 1 cap PO Q4HR PRN 08/28/17 12/19/17 History [Fioricet 50-300-40 mg Capsule] Pregabalin [Lyrica] 150 mg PO HS 11/07/17 12/19/17 History Methocarbamol [Robaxin-750] 750 mg PO TID PRN 11/16/17 12/19/17 History Ondansetron Odt [Zofran Odt] 8 mg PO Q8HR PRN 12/19/17 12/19/17 History Allergies Allergy/AdvReac Type Severity Reaction Status Date / Time tramadol Allergy Hallucinati Verified 12/19/17 08:21 ons valacyclovir HCl AdvReac BLURRED Verified 12/19/17 08:21 [From Valtrex] [facility] - Exam Vital Signs Temp Pulse Resp BP Pulse Ox 98.5 F 69 20 123/84 99 12/19/17 04:39 12/19/17 04:39 12/19/17 04:39 12/19/17 04:39 12/19/17 04:39 - General well developed, moderate distress - Eyes PERRL - ENT normal pinna - Neck no masses - Respiratory normal expansion - Cardiovascular Rhythm: regular - Abdomen Abdomen soft. There is acute tenderness throughout the abdomen. In the left lower quadrant there is rebound tenderness. Results - Labs 12/19/17 05:00 12/19/17 05:00 Abnormal Lab Results - Last 24 Hours (Table) 12/19/17 12/19/17 12/19/17 Range/Units 05:00 05:00 05:00 WBC 11.1 H (3.8-10.6) k/uL Neutrophils # 8.0 H (1.3-7.7) k/uL Chloride 108 H (98-107) mmol/L BUN 18 H (7-17) mg/dL Glucose 120 H (74-99) mg/dL Urine Appearance Turbid H (Clear) Urine Blood Small H (Negative) Ur Leukocyte Esterase Small H (Negative) Urine WBC 6 H (0-5) /hpf Ur Squamous Epith Cells 8 H (0-4) /hpf Amorphous Sediment Rare H (None) /hpf Urine Bacteria Occasional H (None) /hpf Urine Mucus Rare H (None) /hpf Diabetes panel 12/19/17 Range/Units 05:00 Sodium 139 (137-145) mmol/L Potassium 4.2 (3.5-5.1) mmol/L Chloride 108 H (98-107) mmol/L Carbon Dioxide 25 (22-30) mmol/L BUN 18 H (7-17) mg/dL Creatinine 0.90 (0.52-1.04) mg/dL Glucose 120 H (74-99) mg/dL Calcium 9.2 (8.4-10.2) mg/dL AST 34 (14-36) U/L ALT 45 (9-52) U/L Alkaline Phosphatase 53 (38-126) U/L Total Protein 6.6 (6.3-8.2) g/dL Albumin 3.8 (3.5-5.0) g/dL Calcium panel 12/19/17 Range/Units 05:00 Calcium 9.2 (8.4-10.2) mg/dL Albumin 3.8 (3.5-5.0) g/dL Pituitary panel 12/19/17 Range/Units 05:00 Sodium 139 (137-145) mmol/L Potassium 4.2 (3.5-5.1) mmol/L Chloride 108 H (98-107) mmol/L Carbon Dioxide 25 (22-30) mmol/L BUN 18 H (7-17) mg/dL Creatinine 0.90 (0.52-1.04) mg/dL Glucose 120 H (74-99) mg/dL Calcium 9.2 (8.4-10.2) mg/dL Adrenal panel 12/19/17 Range/Units 05:00 Sodium 139 (137-145) mmol/L Potassium 4.2 (3.5-5.1) mmol/L Chloride 108 H (98-107) mmol/L Carbon Dioxide 25 (22-30) mmol/L BUN 18 H (7-17) mg/dL Creatinine 0.90 (0.52-1.04) mg/dL Glucose 120 H (74-99) mg/dL Calcium 9.2 (8.4-10.2) mg/dL Total Bilirubin 0.2 (0.2-1.3) mg/dL AST 34 (14-36) U/L ALT 45 (9-52) U/L Alkaline Phosphatase 53 (38-126) U/L Total Protein 6.6 (6.3-8.2) g/dL Albumin 3.8 (3.5-5.0) g/dL Assessment and Plan Assessment: Perforated diverticulitis. Patient will undergo exploratory laparotomy with sigmoid colon resection and colostomy.
[2017-12-19] MEDS: SODIUM CHLORIDE 0.9% 1,000 ML IV SCH ×2 (10:01→17:33)
[2017-12-19] MEDS ORDERED: MIDAZOLAM 2 MG/2 ML VIAL IVP ONE (10:25)
[2017-12-19] MEDS ORDERED: HEPARIN SODIUM,PORCINE 5,000 UNIT/ML 1 ML VIAL SQ ONE (10:34)
[2017-12-19] MEDS ORDERED: SUCCINYLCHOLINE CHLORIDE VIAL 200 MG/10 ML VIAL IV ONE (11:37)
[2017-12-19] MEDS ORDERED: PROPOFOL 10 MG/ML 20 ML VIAL IV ONE (11:37)
[2017-12-19] MEDS ORDERED: HYDROmorphone (PF) 1 MG/ML ONE (11:37)
[2017-12-19] MEDS ORDERED: MIDAZOLAM 2 MG/2 ML VIAL ONE (11:37)
[2017-12-19] MEDS ORDERED: NEOSTIGMINE 1 MG/ML 10 ML VIAL ONE (11:37)
[2017-12-19] MEDS ORDERED: fentaNYL (PF) 50 MCG/ML 2 ML AMP ONE (11:37)
[2017-12-19] MEDS ORDERED: LIDOCAINE 1% INJ 10MG/ML (20 ML MDV) ONE (11:37)
[2017-12-19] MEDS ORDERED: GLYCOPYRROLATE 0.2 MG/ML 2 ML VIAL ONE (11:37)
[2017-12-19] MEDS ORDERED: ROCURONIUM BROMIDE 10 MG/ML 10 ML VIAL IV ONE (11:37)
[2017-12-19] MEDS ORDERED: LACTATED RINGERS 1,000 ML IV ONE (12:29)
[2017-12-19] MEDS: ROPIVACAINE 250 MG, HYDROMORPHONE (PF) 5 MG in SODIUM CHLORIDE 0.9% 200 ML EPIDURAL PRN ×2 (13:57→14:48)
[2017-12-19] MEDS ORDERED: BENZOCAINE/MENTHOL LOZENG 1 EACH LOZENGE MUCOUS MEM PRN (14:04)
[2017-12-19] MEDS ORDERED: ONDANSETRON 4 MG/2 ML VIAL IVP ONE (14:42)
[2017-12-19] MEDS: D5-0.45% NACL WITH KCL 20MEQ/L 1,000 ML IV SCH ×2 (15:21→23:53)
[2017-12-19 16:00] VITALS: BMI 40.7
[2017-12-19 16:31] LABS: Basophils % (A) 0 %; Eosinophils % (A) 0 %; HCT 42.2 % (34.0-46.0); HGB 13.1 gm/dL (11.4-16.0); Lymphocytes # (A) 1.1 k/uL (1.0-4.8); Lymphocytes % (A) 7 %; MCH 28.9 pg (25.0-35.0); MCHC 31.1 g/dL (31.0-37.0); MCV 92.9 fL (80.0-100.0); Mean Platelet Volume 6.7; Monocytes # (A) 0.7 k/uL (0-1.0); Monocytes % (A) 4 %; Neutrophils # (A) 13.2 k/uL (1.3-7.7); Neutrophils % (A) 87 %; Platelet Count 275 k/uL (150-450); RBC 4.54 m/uL (3.80-5.40); RDW 13.3 % (11.5-15.5); WBC 15.1 k/uL (3.8-10.6)
[2017-12-19] MEDS: METOCLOPRAMIDE 5 MG/ML 2 ML VIAL IVP PRN (20:10)
[2017-12-19 21:16] LABS: Glucose,Whole Blood 126 mg/dL (75-99)
[2017-12-20 00:33] LABS: Glucose,Whole Blood 125 mg/dL (75-99)
[2017-12-20] MEDS: HYDROmorphone 1 MG/ML 1 ML SYRINGE IVP PRN (01:08)
[2017-12-20] MEDS: ONDANSETRON 4 MG/2 ML VIAL IVP PRN ×2 (03:28→19:49)
[2017-12-20] MEDS: SODIUM CHLORIDE 0.9% 1,000 ML IV SCH ×3 (04:51→23:53)
[2017-12-20] MEDS: METOCLOPRAMIDE 5 MG/ML 2 ML VIAL IVP PRN ×2 (05:45→21:49)
[2017-12-20 06:43] LABS: Basophils % (A) 0 %; Eosinophils # (A) 0.1 k/uL (0-0.7); Eosinophils % (A) 1 %; HCT 42.1 % (34.0-46.0); HGB 13.2 gm/dL (11.4-16.0); Lymphocytes # (A) 1.4 k/uL (1.0-4.8); Lymphocytes % (A) 13 %; MCH 28.8 pg (25.0-35.0); MCHC 31.4 g/dL (31.0-37.0); MCV 91.7 fL (80.0-100.0); Monocytes # (A) 0.5 k/uL (0-1.0); Monocytes % (A) 4 %; Neutrophils # (A) 9.2 k/uL (1.3-7.7); Neutrophils % (A) 82 %; Platelet Count 321 k/uL (150-450); RBC 4.59 m/uL (3.80-5.40); RDW 13.4 % (11.5-15.5); WBC 11.2 k/uL (3.8-10.6)
[2017-12-20 06:53] LABS: ALT 36 U/L (9-52); AST 28 U/L (14-36); Albumin 3.1 g/dL (3.5-5.0); Alkaline Phosphatase 53 U/L (38-126); Anion Gap 5 mmol/L; Blood Urea Nitrogen 15 mg/dL (7-17); Calcium 8.3 mg/dL (8.4-10.2); Carbon Dioxide 24 mmol/L (22-30); Chloride 108 mmol/L (98-107); Glucose 135 mg/dL (74-99); Potassium 4.2 mmol/L (3.5-5.1); Sodium 137 mmol/L (137-145); Total Bilirubin 1.6 mg/dL (0.2-1.3); Total Protein 5.7 g/dL (6.3-8.2)
[2017-12-20 06:53] LABS: Glucose,Whole Blood 152 mg/dL (75-99)
[2017-12-20] MEDS: D5-0.45% NACL WITH KCL 20MEQ/L 1,000 ML IV SCH ×2 (08:17→15:40)
[2017-12-20] MEDS: ALVIMOPAN 12 MG CAPSULE PO SCH ×2 (08:17→19:50)
--- NOTE | 2017-12-20 08:18 | P.PN ---
Progress Note - Text Progress Note Date: 12/20/17 Postoperative day # status post expelatory laparotomy/epidural catheter placed for postoperative analgesia, patient doing well epidural site okay, patient currently on combination of epidural infusion solution of Ropivacaine 0.0625% and Dilaudid 20 g per mL the infusion rate at 7 ml per hour , patient had no motor deficit epidural site okay , vital signs stable ,VAS 4-5 / 10 , Assessment and plan= post operative day # 1 patient doing well, including pain epidural infusion increased to 7 ml per hour, will reevaluate tomorrow , there is no anesthesia related complications. (She was seen at 655 am )
[2017-12-20] MEDS: PANTOPRAZOLE 40 MG/10 ML VIAL IVP SCH ×2 (10:54→19:49)
[2017-12-20 11:11] LABS: Glucose,Whole Blood 156 mg/dL (75-99)
--- NOTE | 2017-12-20 12:30 | P.PN ---
Subjective Progress Note Date: 12/20/17 32-year-old female seen this morning on rounds family at bedside states pain medication has been effective for pain control epidural in place per anesthesia for pain . Abdominal binder in place surgical dressing site dry few hypoactive bowel tones indwelling Christian catheter in place reports experiencing esophageal reflux symptoms afebrile white count 11.2 Status post 8 exploratory laparotomy sigmoid colectomy with colostomy Objective - Vital Signs Vital signs: Vital Signs Temp 98.4 F 12/20/17 07:35 Pulse 79 12/20/17 07:35 Resp 18 12/20/17 07:35 BP 109/70 12/20/17 07:35 Pulse Ox 97 12/20/17 07:35 Intake & Output 12/19/17 12/20/17 12/20/17 18:59 06:59 18:59 Intake Total 1715.8 500 350 Output Total 800 350 Balance 915.8 150 350 Weight 117.934 kg Intake: IV 1715.8 Intake, IV Titration 500 Amount D5-0.45% NaCl with KCl 500 20Meq/l 1,000 ml @ 125 mls/hr IV .Q8H [facility] Rx#: [id number] Oral 350 Output: Urine 750 350 Estimated Blood Loss 50 Other: Voiding Method Indwelling Catheter Indwelling Catheter Indwelling Catheter - Exam Physical exam 22-year-old female seen this morning on rounds sitting up in alert oriented 3 Lungs adequate air movement bilaterally on room air Heart S1-S2 audible regular Abdomen surgical binder in place ostomy left lower quadrant. Indwelling Christian catheter in place. Surgical tenderness appropriate. Few hypoactive bowel tones noted not distended no reports of nausea vomiting tolerating clear liquid Extremities Venodyne's on bilateral lower extremities - Labs CBC & Chem 7: 12/20/17 06:23 12/20/17 06:23 Labs: Abnormal Lab Results - Last 24 Hours (Table) 12/19/17 12/19/17 12/20/17 Range/Units 15:47 21:04 00:32 WBC 15.1 H (3.8-10.6) k/uL Neutrophils # 13.2 H (1.3-7.7) k/uL Chloride (98-107) mmol/L Glucose (74-99) mg/dL POC Glucose (mg/dL) 126 H 125 H (75-99) mg/dL Calcium (8.4-10.2) mg/dL Total Bilirubin (0.2-1.3) mg/dL Total Protein (6.3-8.2) g/dL Albumin (3.5-5.0) g/dL 12/20/17 12/20/17 12/20/17 Range/Units 06:23 06:23 06:51 WBC 11.2 H (3.8-10.6) k/uL Neutrophils # 9.2 H (1.3-7.7) k/uL Chloride 108 H (98-107) mmol/L Glucose 135 H (74-99) mg/dL POC Glucose (mg/dL) 152 H (75-99) mg/dL Calcium 8.3 L (8.4-10.2) mg/dL Total Bilirubin 1.6 H (0.2-1.3) mg/dL Total Protein 5.7 L (6.3-8.2) g/dL Albumin 3.1 L (3.5-5.0) g/dL 12/20/17 Range/Units 11:07 WBC (3.8-10.6) k/uL Neutrophils # (1.3-7.7) k/uL Chloride (98-107) mmol/L Glucose (74-99) mg/dL POC Glucose (mg/dL) 156 H (75-99) mg/dL Calcium (8.4-10.2) mg/dL Total Bilirubin (0.2-1.3) mg/dL Total Protein (6.3-8.2) g/dL Albumin (3.5-5.0) g/dL Microbiology - Last 24 Hours (Table) 12/19/17 05:00 Urine Culture - Preliminary Urine,Voided Assessment and Plan Assessment: Impression Present on admission diffuse abdominal pain with a computed tomography scan abdomen pelvis showing pneumoperitoneum likely due to a ruptured diverticulum Chronic pain opiate dependency Obesity BMI 40 History of irritable bowel Anxiety depressive disorder Postop 8 exploratory laparotomy with sigmoid colon resection with colostomy suspect due to large amount of free air and sigmoid colon inflammation Plan DVT and GI prophylaxis Pain control per epidural anesthesia following Home meds as appropriate Postop surgical care Increase activity IV fluid as ordered The above impression and plan of care have been discussed and directed by signing physician. Brisa Whitman nurse practitioner acting as scribe for signing physician.
[2017-12-20] MEDS: ROPIVACAINE 250 MG, HYDROMORPHONE (PF) 5 MG in SODIUM CHLORIDE 0.9% 200 ML EPIDURAL PRN (15:26)
[2017-12-20 17:10] LABS: Glucose,Whole Blood 102 mg/dL (75-99)
[2017-12-20] MEDS ORDERED: BUTALB/APAP/CAFF 50-325-40MG TAB PO PRN (17:58)
[2017-12-20] MEDS ORDERED: ONDANSETRON ODT 8 MG TAB.RAPDIS PO PRN (17:58)
[2017-12-20] MEDS ORDERED: ALBUTEROL NEBULIZED 2.5 MG/3 ML INHALATION PRN (17:58)
[2017-12-20] MEDS: busPIRone HCl 5 MG TAB PO SCH (19:50)
[2017-12-20] MEDS: traZODone HCL 100 MG TAB PO SCH (19:51)
[2017-12-20] MEDS: TOPIRAMATE 100 MG TAB PO SCH (19:51)
[2017-12-20] MEDS: VENLAFAXINE HCL ER 75 MG CAP PO SCH (19:51)
[2017-12-20 19:58] LABS: Glucose,Whole Blood 144 mg/dL (75-99)
[2017-12-20] MEDS: PREGABALIN 75 MG CAP PO SCH (19:59)
--- NOTE | 2017-12-20 21:41 | CONS ---
CONSULTATION DATE OF CONSULTATION: 12/20/2017 REASON FOR CONSULTATION: Medical management requested by Dr. Meadows. CONSULTATION: This is a pleasant 32-year-old patient of Dr. Inman whose chronic stable medical conditions to include a possible demyelinating process, morbid obesity, intermittent asthma, GERD, history of , anxiety, depression, hypothyroidism. The patient around 2:00 in the morning with increasing severe abdominal pain which continues to become rather severe. There was no nausea, vomiting. The patient had a bowel movement before that. No fever and chills. Pain was more in the lower abdomen, did not radiate anywhere. The patient decided to come down to the ER and subsequently had a CT scan of the abdomen and pelvis in the ER. The patient has found to have pneumoperitoneum consistent with diverticular changes. The patient was taken to the OR and now has a resultant colostomy, having some pain. The patient's [id number] is at the bedside. No nausea, vomiting. REVIEW OF SYSTEMS: CONSTITUTIONAL: Tired, run down. HEENT: None. RESPIRATORY: None. CARDIOVASCULAR: None. GASTROINTESTINAL: As above. GENITOURINARY: None. MUSCULOSKELETAL: Some pain in the joints. DERMATOLOGICAL: None. HEMATOLOGIC: None. LYMPHATIC: None. PSYCHIATRY: Feels a bit low. NEUROLOGICAL: The patient has had trouble with her words and numbness and tingling in the feet a few months ago. PAST MEDICAL HISTORY: 1. Demyelinating process, workup in place. 2. Intermittent asthma. 3. GERD. 4. Irritable bowel syndrome. 5. Anxiety. 6. Depression. 7. Hypothyroidism. PAST SURGICAL HISTORY: Bowel resection. PSYCH HISTORY: ADHD, bipolar. 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 Alcohol occasionally. Does not smoke. Lives with . FAMILY HISTORY: Reviewed, noncontributory to presentation. HOME MEDICATIONS: 1. Desyrel 100 mg q.h.s. 2. Buspirone 150 mg p.o. b.i.d. 3. Effexor XR 225 mg q.h.s. 4. Topamax that is Trokendi XR 200 mg p.o. daily. 5. Lyrica 150 mg q.h.s., 75 in the morning. 6. Zofran 8 mg q.8h p.r.n. 7. Loestrin 1 tablet p.o. q.h.s. 8. Robaxin 750 p.o. t.i.d. p.r.n. 9. Mobic 750 mg p.o. daily. 10.Vitamin A 50 mg p.o. daily. 11.Synthroid 50 mcg p.o. daily. 12.[place] 7.5 one tablet p.o. t.i.d. p.r.n. 13.Pepcid 20 mg p.o. b.i.d. 14.Fioricet 1 capsule p.o. q.4 p.r.n. 15.Ventolin HFA 2 puffs every 6 hours p.r.n. ALLERGIES: To ULTRAM and VALTREX. EXAMINATION: Temperature 98.4, pulse 79, respirations 18, blood pressure 109/70, pulse ox 97% on room air. GENERAL APPEARANCE: Well-built, BMI of 40.7. Sitting up on a chair, tired-appearing, leaning back. EYES: Pupils equal. Conjunctivae normal. HEENT: External nose and ears normal. Oral cavity normal. NECK: JVD not raised. Mass not palpable. RESPIRATORY: Effort normal. Lungs revealed fair entry. CARDIOVASCULAR: First and second sounds normal. No edema. ABDOMEN: in place. Colostomy bag in place. No stool. Diffuse tenderness. No guarding or rigidity. Bowel sounds sluggish. LYMPHATIC: No lymph node palpable in neck or axillae. PSYCHIATRY: Alert and oriented x3. Mood and affect slightly low. NEUROLOGICAL: Pupils equal. Cranial nerves grossly intact. Power and sensation grossly intact. INVESTIGATIONS: White count 11.2, hemoglobin 13.2. Potassium 4.2. Accu-Cheks are noted. CT scan of the abdomen reported pneumoperitoneum. ASSESSMENT: 1. Ruptured diverticulitis with a partial sigmoid colectomy and now resulting colostomy. 2. Morbid obesity, BMI 40.7. 3. Intermittent asthma. 4. Gastroesophageal reflux disease. 5. Anxiety and depression, not otherwise specified. 6. Hypothyroidism. PLAN: Home medications resumed. Pain control per Dr. Meadows. The patient also got Venodyne boots. Care was discussed with the patient and [id number] at the bedside. Questions were answered. Thank you, Dr. Meadows. MMODL / IJN: [id number] /
[2017-12-21] MEDS: D5-0.45% NACL WITH KCL 20MEQ/L 1,000 ML IV SCH ×3 (01:00→21:30)
[2017-12-21] MEDS: SODIUM CHLORIDE 0.9% 1,000 ML IV SCH ×3 (03:11→23:47)
[2017-12-21] MEDS: LEVOTHYROXINE 50 MCG TAB PO SCH (05:48)
[2017-12-21 07:07] LABS: Basophils % (A) 0 %; Eosinophils # (A) 0.2 k/uL (0-0.7); Eosinophils % (A) 1 %; HCT 39.3 % (34.0-46.0); HGB 12.6 gm/dL (11.4-16.0); Lymphocytes # (A) 1.6 k/uL (1.0-4.8); Lymphocytes % (A) 13 %; MCH 29.4 pg (25.0-35.0); MCV 91.8 fL (80.0-100.0); Monocytes # (A) 0.6 k/uL (0-1.0); Monocytes % (A) 5 %; Neutrophils # (A) 9.6 k/uL (1.3-7.7); Neutrophils % (A) 80 %; Platelet Count 301 k/uL (150-450); RBC 4.28 m/uL (3.80-5.40); RDW 13.2 % (11.5-15.5)
--- NOTE | 2017-12-21 07:10 | P.PN ---
Progress Note - Text 12/21 605am 32-year-old status post exploratory lap by Dr. dubon. Patient has an epidural catheter for postop pain control with the solution running at 7 mL an hour. She has a VAS of 2 with no motor or sensory deficit plan to continue epidural infusion
[2017-12-21 07:13] LABS: Glucose,Whole Blood 112 mg/dL (75-99)
[2017-12-21 07:30] LABS: ALT 32 U/L (9-52); AST 28 U/L (14-36); Albumin 2.9 g/dL (3.5-5.0); Alkaline Phosphatase 58 U/L (38-126); Anion Gap 6 mmol/L; Blood Urea Nitrogen 8 mg/dL (7-17); Calcium 8.4 mg/dL (8.4-10.2); Carbon Dioxide 26 mmol/L (22-30); Chloride 104 mmol/L (98-107); Glucose 114 mg/dL (74-99); Potassium 4.2 mmol/L (3.5-5.1); Sodium 136 mmol/L (137-145); Total Bilirubin 0.8 mg/dL (0.2-1.3); Total Protein 5.4 g/dL (6.3-8.2)
[2017-12-21] MEDS: PREGABALIN 75 MG CAP PO SCH ×2 (08:28→21:36)
[2017-12-21] MEDS: PANTOPRAZOLE 40 MG/10 ML VIAL IVP SCH ×2 (08:28→21:37)
[2017-12-21] MEDS: busPIRone HCl 5 MG TAB PO SCH ×2 (08:28→21:36)
[2017-12-21] MEDS: ALVIMOPAN 12 MG CAPSULE PO SCH ×2 (08:28→21:36)
[2017-12-21] MEDS: TOPIRAMATE 100 MG TAB PO SCH (08:29)
[2017-12-21] MEDS ORDERED: NON-FORMULARY DRUG (Lisdexamfetamine Dimesylate [Vyvanse] 50 MG) PO SCH (09:00)
[2017-12-21 11:40] LABS: Glucose,Whole Blood 106 mg/dL (75-99)
--- NOTE | 2017-12-21 13:06 | PN ---
PROGRESS NOTE DATE OF SERVICE: 12/21/2017 PRESENTING COMPLAINT: Abdominal pain. INTERVAL HISTORY: This very pleasant lady presented with ruptured diverticulitis and subsequently now has a colostomy bag. The patient has got a spinal pain pump. Propped up in chair. at the bedside. No nausea, vomiting. No output from the bag. The patient did workup when she was last here a few months ago. She did have a neurological workup done and she was told that all the workup for MS or any cancer was negative and most of her neurological symptoms were probably from headaches. REVIEW OF SYSTEMS: Done for constitutional, cardiovascular, GI, pulmonary; relevant findings as above. MEDICATIONS: Current medications are reviewed that include epidural pain pump. PHYSICAL EXAMINATION: On examination, temperature 97.6, pulse 76, respirations 16, blood pressure 110/76, pulse ox 91% on room air. GENERAL APPEARANCE: Sitting up on an easy chair, tired. EYES: Pupils equal. Conjunctivae normal. HENT: External appearance of nose and ears normal. Oral cavity normal. NECK: JVD not raised. Mass not palpable. RESPIRATORY: Effort normal. Lungs are clear. CARDIOVASCULAR: First and second sounds normal. No edema. ABDOMEN: Tender. Colostomy bag was placed, empty. Bowel sounds are sluggish. PSYCHIATRY: Alert and oriented x3. Mood affect tired appearing. INVESTIGATIONS: White count 12, hemoglobin 12.6, potassium 4.2. ASSESSMENT: 1. Acute ruptured sigmoid diverticulitis with surgical resection and now colostomy bag. 2. Epidural pain pump in place. 3. Morbid obesity, body mass index 40.7. 4. Intermittent asthma. 5. Gastroesophageal reflux disease. 6. Anxiety, depression, not otherwise specified. 7. Hypothyroidism. PLAN: Continue current medication and treatment plan. Care was discussed with the patient and . Will follow. MMODL / IJN: [id number] /
[2017-12-21] MEDS: METOCLOPRAMIDE 5 MG/ML 2 ML VIAL IVP PRN (13:20)
[2017-12-21] MEDS: traZODone HCL 100 MG TAB PO SCH (21:37)
[2017-12-21] MEDS: VENLAFAXINE HCL ER 75 MG CAP PO SCH (21:37)
[2017-12-22] MEDS: ROPIVACAINE 250 MG, HYDROMORPHONE (PF) 5 MG in SODIUM CHLORIDE 0.9% 200 ML EPIDURAL PRN (00:26)
[2017-12-22] MEDS: D5-0.45% NACL WITH KCL 20MEQ/L 1,000 ML IV SCH ×3 (00:26→18:20)
[2017-12-22] MEDS: SODIUM CHLORIDE 0.9% 1,000 ML IV SCH ×3 (04:50→23:14)
[2017-12-22] MEDS: LEVOTHYROXINE 50 MCG TAB PO SCH (05:46)
[2017-12-22 08:07] LABS: Glucose,Whole Blood 119 mg/dL (75-99)
[2017-12-22] MEDS: ALVIMOPAN 12 MG CAPSULE PO SCH ×2 (08:08→20:38)
[2017-12-22] MEDS: busPIRone HCl 5 MG TAB PO SCH ×2 (08:09→20:38)
[2017-12-22] MEDS: PANTOPRAZOLE 40 MG/10 ML VIAL IVP SCH ×2 (08:09→20:38)
[2017-12-22] MEDS: PREGABALIN 75 MG CAP PO SCH ×2 (08:09→20:38)
[2017-12-22] MEDS: TOPIRAMATE 100 MG TAB PO SCH (08:10)
--- NOTE | 2017-12-22 09:04 | P.PN ---
Progress Note - Text Progress Note Date: 12/21/17 The patient is resting in her bed. She has had limited oral intake. She has no significant pain. On exam her vital signs are stable. Her abdomen soft. Stoma is pink. There is some minimal output through his colostomy. Status post Noman procedure for perforated diverticulitis. Patient continue epidural. Epidural will be removed in the a.m.
--- NOTE | 2017-12-22 09:05 | P.PN ---
Progress Note - Text Progress Note Date: 12/22/17 The patient has some mild complaints of incisional pain. She's had limited oral intake. On exam her vital signs are stable. Her stoma was pink. The incision site is clean dry and intact. Patient's epidural will be removed today. She'll remain on clear liquids.
[2017-12-22] MEDS: HYDROmorphone 1 MG/ML 1 ML SYRINGE IVP PRN ×2 (15:29→20:39)
[2017-12-22] MEDS: VENLAFAXINE HCL ER 75 MG CAP PO SCH (20:38)
[2017-12-22] MEDS: traZODone HCL 100 MG TAB PO SCH (20:38)
[2017-12-23] MEDS: HYDROmorphone 1 MG/ML 1 ML SYRINGE IVP PRN ×5 (00:31→19:25)
[2017-12-23] MEDS: METOCLOPRAMIDE 5 MG/ML 2 ML VIAL IVP PRN ×2 (00:31→05:22)
[2017-12-23] MEDS: D5-0.45% NACL WITH KCL 20MEQ/L 1,000 ML IV SCH ×3 (01:03→15:33)
[2017-12-23] MEDS: SODIUM CHLORIDE 0.9% 1,000 ML IV SCH ×3 (05:14→22:19)
[2017-12-23] MEDS: LEVOTHYROXINE 50 MCG TAB PO SCH (05:23)
[2017-12-23] MEDS: PANTOPRAZOLE 40 MG/10 ML VIAL IVP SCH ×2 (07:53→20:36)
[2017-12-23] MEDS: TOPIRAMATE 100 MG TAB PO SCH (07:54)
[2017-12-23] MEDS: busPIRone HCl 5 MG TAB PO SCH ×2 (07:54→20:36)
[2017-12-23] MEDS: ALVIMOPAN 12 MG CAPSULE PO SCH ×2 (07:54→20:36)
[2017-12-23] MEDS: PREGABALIN 75 MG CAP PO SCH ×2 (07:54→20:36)
--- NOTE | 2017-12-23 10:26 | P.PN ---
Progress Note - Text Progress Note Date: 12/23/17 The patient is resting in bed. She has some complaints of incisional pain. On exam her vital signs are stable stable. Her abdomen soft. Stoma was pink there is some stool in the colostomy site. Patient will have her diet increased. She'll placed on a full liquid diet. We dysphagia discharged home the next 48 hours.
--- NOTE | 2017-12-23 11:01 | P.PN ---
Subjective Progress Note Date: 12/22/17 Principal diagnosis: Ruptured diverticulitis Status post exploratory laparotomy with sigmoid colon resection and colostomy 32-year-old female patient who presented to ED with abdominal pain which started 2 AM while she was sleeping; patient was worked up in ED and a CAT scan showed large amount of free air and sigmoid colon inflammation; patient underwent exploratory laparotomy with sigmoid colon resection and colostomy; patient is postoperative day #2 Objective - Vital Signs Vital signs: Vital Signs Temp 97.6 F 12/22/17 07:50 Pulse 84 12/22/17 08:11 Resp 14 12/22/17 07:50 BP 103/66 12/22/17 07:50 Pulse Ox 93 L 12/22/17 08:00 Intake & Output 12/21/17 12/22/17 12/22/17 18:59 06:59 18:59 Intake Total 1500 Output Total 2500 1200 965 Balance -2500 300 -965 Weight 117.934 kg Intake: Intake, IV Titration 1500 Amount D5-0.45% NaCl with KCl 1250 20Meq/l 1,000 ml @ 125 mls/hr IV .Q8H [facility] Rx#: [id number] Ropivacaine 250 mg 250 Hydromorphone (Pf) 5 mg In Sodium Chloride 0.9% 200 ml @ Per Protocol EPIDURAL .Q0M PRN Rx#: [id number] Output: Drainage 15 Abdomen 15 Urine 2500 1200 [address]-way Urethral 1200 950 Other: Voiding Method Indwelling Catheter Indwelling Catheter Indwelling Catheter - Exam - Constitutional General appearance: Present: average body habitus, cooperative, no acute distress - EENT Eyes: Present: anicteric sclerae, EOMI, PERRLA, normal appearance ENT: Present: hearing grossly normal, normal oropharynx Ears: bilateral: normal - Neck Neck: Present: normal ROM. Absent: lymphadenopathy, rigidity, thyromegaly Carotids: negative: bruit present Thyroid: bilateral: normal size, negative: enlarged, nodule - Respiratory Respiratory: bilateral: CTA, negative: rales, rhonchi, wheezing - Cardiovascular Rhythm: regular Heart sounds: normal: S1, S2 Abnormal Heart Sounds: Absent: systolic murmur, diastolic murmur - Gastrointestinal General gastrointestinal: Present: normal bowel sounds, soft. Absent: distended , organomegaly; mild diffuse tenderness tenderness more so around the incision site; incision site is clean dry and intact; stoma is pink - Genitourinary Genitourinary Comment(s): deferred - Integumentary Integumentary: Present: normal turgor. Absent: jaundiced, rash, ulcer - Neurologic Neurologic: Present: CNII-XII intact. Absent: focal deficits - Musculoskeletal Musculoskeletal: Present: gait normal, strength equal bilaterally - Psychiatric Psychiatric: Present: A&O x's 3, appropriate affect, intact judgment & insight - Labs CBC & Chem 7: 12/21/17 06:39 12/21/17 06:39 Labs: Abnormal Lab Results - Last 24 Hours (Table) 12/22/17 Range/Units 08:01 POC Glucose (mg/dL) 119 H (75-99) mg/dL Assessment and Plan Assessment: 1. Perforated diverticulitis; s/p exploratory laparotomy with sigmoid resection and colostomy; POD #2 - Patient continues to have abdominal binder; pain control per surgical team - Remains on clear liquid diet with a plan to advance as tolerated - Pain controlled with epidural pain pump and Dilaudid 1 mg IV every 3 hours when necessary - Symptomatic treatment for nausea and vomiting with Reglan 10 mg IV every 6 hours and Zofran 4-8 mg every 8 hours when necessary 2. Intermittent asthma; not in exacerbation - Continue with bronchodilator nebulizer treatments every 6 hours when necessary for shortness of breath 3. Gastroesophageal reflux disease; stable on Protonix 40 mg IV twice a day 4. Hypothyroidism; clinically euthyroid on levothyroxine 50 MCG daily 5. Morbid obesity; BMI of 40.7 6. Anxiety/depression; stable on Topamax, trazodone and BuSpar 7. DVT prophylaxis; per surgery team recommendations CODE STATUS; full code Time with Patient: Greater than 30
--- NOTE | 2017-12-23 13:43 | P.PN ---
Subjective Progress Note Date: 12/23/17 Principal diagnosis: Ruptured diverticulitis Status post exploratory laparotomy with sigmoid colon resection and colostomy 32-year-old female patient who presented to ED with abdominal pain which started 2 AM while she was sleeping; patient was worked up in ED and a CAT scan showed large amount of free air and sigmoid colon inflammation; patient underwent exploratory laparotomy with sigmoid colon resection and colostomy; patient is postoperative day #2 12/23/2017 Patient is POD #3; seen and evaluated in the room with family members at bedside ; patient is resting in bed and does complain of some incisional pain; patient relates that pain is worse when she gets out of the bed to go to the bathroom; vital signs are stable; patient's abdomen is soft with mild diffuse tenderness with pink stoma; some stool is present in colostomy bag; patient's diet has been advanced to full liquid Anticipated discharged home in next 48 hours Objective - Vital Signs Vital signs: Vital Signs Temp 98.1 F 12/23/17 07:21 Pulse 94 12/23/17 07:21 Resp 16 12/23/17 07:22 BP 104/72 12/23/17 07:21 Pulse Ox 95 12/23/17 07:21 Intake & Output 12/22/17 12/23/17 12/23/17 18:59 06:59 18:59 Intake Total 875 1500 Output Total 965 150 Balance -90 1350 Intake: Intake, IV Titration 875 1500 Amount D5-0.45% NaCl with KCl 875 1500 20Meq/l 1,000 ml @ 125 mls/hr IV .Q8H [facility] Rx#: [id number] Output: Drainage 15 Abdomen 15 Urine 950 150 2-way Urethral 950 Other: Voiding Method Indwelling Catheter Toilet Toilet # Voids 2 2 - Exam - Constitutional General appearance: Present: average body habitus, cooperative, no acute distress - EENT Eyes: Present: anicteric sclerae, EOMI, PERRLA, normal appearance ENT: Present: hearing grossly normal, normal oropharynx Ears: bilateral: normal - Neck Neck: Present: normal ROM. Absent: lymphadenopathy, rigidity, thyromegaly Carotids: negative: bruit present Thyroid: bilateral: normal size, negative: enlarged, nodule - Respiratory Respiratory: bilateral: CTA, negative: rales, rhonchi, wheezing - Cardiovascular Rhythm: regular Heart sounds: normal: S1, S2 Abnormal Heart Sounds: Absent: systolic murmur, diastolic murmur - Gastrointestinal General gastrointestinal: Present: normal bowel sounds, soft. Absent: distended , organomegaly; mild diffuse tenderness tenderness more so around the incision site; incision site is clean dry and intact; stoma is pink - Genitourinary Genitourinary Comment(s): deferred - Integumentary Integumentary: Present: normal turgor. Absent: jaundiced, rash, ulcer - Neurologic Neurologic: Present: CNII-XII intact. Absent: focal deficits - Musculoskeletal Musculoskeletal: Present: gait normal, strength equal bilaterally - Psychiatric Psychiatric: Present: A&O x's 3, appropriate affect, intact judgment & insight - Labs CBC & Chem 7: 12/21/17 06:39 12/21/17 06:39 Assessment and Plan Assessment: 1. Perforated diverticulitis; s/p exploratory laparotomy with sigmoid resection and colostomy; POD #2 - Patient continues to have abdominal binder; pain control per surgical team - Remains on clear liquid diet with a plan to advance as tolerated - Pain controlled with epidural pain pump and Dilaudid 1 mg IV every 3 hours when necessary - Symptomatic treatment for nausea and vomiting with Reglan 10 mg IV every 6 hours and Zofran 4-8 mg every 8 hours when necessary 2. Intermittent asthma; not in exacerbation - Continue with bronchodilator nebulizer treatments every 6 hours when necessary for shortness of breath 3. Gastroesophageal reflux disease; stable on Protonix 40 mg IV twice a day 4. Hypothyroidism; clinically euthyroid on levothyroxine 50 MCG daily 5. Morbid obesity; BMI of 40.7 6. Anxiety/depression; stable on Topamax, trazodone and BuSpar 7. DVT prophylaxis; per surgery team recommendations CODE STATUS; full code Time with Patient: Greater than 30
[2017-12-23] MEDS: ceFAZolin 1,000 MG in DEXTROSE/WATER 1 50ML.BAG IVPB SCH (20:35)
[2017-12-23] MEDS: VENLAFAXINE HCL ER 75 MG CAP PO SCH (20:46)
[2017-12-23] MEDS: traZODone HCL 100 MG TAB PO SCH (20:46)
[2017-12-23] MEDS ORDERED: ceFAZolin IN SWFI 2 GM/20 ML SYRINGE IVP SCH (21:00)
[2017-12-24] MEDS: D5-0.45% NACL WITH KCL 20MEQ/L 1,000 ML IV SCH ×3 (03:22→14:52)
[2017-12-24] MEDS: HYDROmorphone 1 MG/ML 1 ML SYRINGE IVP PRN ×3 (03:22→14:49)
[2017-12-24] MEDS: SODIUM CHLORIDE 0.9% 1,000 ML IV SCH ×3 (05:24→21:54)
[2017-12-24] MEDS: ceFAZolin 1,000 MG in DEXTROSE/WATER 1 50ML.BAG IVPB SCH ×3 (05:37→21:41)
[2017-12-24] MEDS: LEVOTHYROXINE 50 MCG TAB PO SCH (05:37)
[2017-12-24 08:10] LABS: Anion Gap 10 mmol/L; Basophils % (A) 0 %; Calcium 9.6 mg/dL (8.4-10.2); Carbon Dioxide 17 mmol/L (22-30); Chloride 115 mmol/L (98-107); Eosinophils # (A) 0.3 k/uL (0-0.7); Eosinophils % (A) 3 %; Glucose 98 mg/dL (74-99); HCT 37.6 % (34.0-46.0); HGB 12.1 gm/dL (11.4-16.0); Lymphocytes # (A) 1.7 k/uL (1.0-4.8); Lymphocytes % (A) 18 %; MCHC 32.3 g/dL (31.0-37.0); MCV 89.8 fL (80.0-100.0); Mean Platelet Volume 7.8; Monocytes # (A) 0.5 k/uL (0-1.0); Monocytes % (A) 6 %; Neutrophils # (A) 6.9 k/uL (1.3-7.7); Neutrophils % (A) 72 %; Platelet Count 392 k/uL (150-450); RBC 4.19 m/uL (3.80-5.40); RDW 13.5 % (11.5-15.5); Sodium 142 mmol/L (137-145); WBC 9.6 k/uL (3.8-10.6)
[2017-12-24 08:23] LABS: Blood Urea Nitrogen 11 mg/dL (7-17); Potassium 5.5 mmol/L (3.5-5.1)
[2017-12-24] MEDS: PANTOPRAZOLE 40 MG/10 ML VIAL IVP SCH ×2 (08:29→21:41)
[2017-12-24] MEDS: ALVIMOPAN 12 MG CAPSULE PO SCH ×2 (08:30→21:40)
[2017-12-24] MEDS: busPIRone HCl 5 MG TAB PO SCH ×2 (08:30→21:41)
[2017-12-24] MEDS: PREGABALIN 75 MG CAP PO SCH ×2 (08:30→21:42)
[2017-12-24] MEDS: TOPIRAMATE 100 MG TAB PO SCH (08:30)
[2017-12-24] MEDS ORDERED: HYDROcodone/APAP 7.5-325MG 1 EACH TAB PO PRN (15:58)
--- NOTE | 2017-12-24 16:03 | P.PN ---
Progress Note - Text Progress Note Date: 12/24/17 The patient's resting comfortably in bed. She is tolerating diet. On exam her vital signs are stable. Her abdomen soft. There is some minimal cellulitis on the left lower aspect of the incision. Status post Onman procedure for perforated diverticula is. Patient's diet has been advanced to regular. Anticipate discharge home the next 24-48 hours. Discharged home with oral antibiotic.
[2017-12-24] MEDS: VENLAFAXINE HCL ER 75 MG CAP PO SCH (21:42)
[2017-12-24] MEDS: traZODone HCL 100 MG TAB PO SCH (21:42)
[2017-12-24] MEDS ORDERED: ALPRAZolam 0.25 MG TAB PO STA (22:46)
[2017-12-24] MEDS ORDERED: MELATONIN 5 MG TABLET PO SCH (23:00)
--- NOTE | 2017-12-24 23:08 | P.PN ---
Subjective Progress Note Date: 12/24/17 Principal diagnosis: Ruptured diverticulitis Status post exploratory laparotomy with sigmoid colon resection and colostomy 32-year-old female patient who presented to ED with abdominal pain which started 2 AM while she was sleeping; patient was worked up in ED and a CAT scan showed large amount of free air and sigmoid colon inflammation; patient underwent exploratory laparotomy with sigmoid colon resection and colostomy; patient is postoperative day #2 12/23/2017 Patient is POD #3; seen and evaluated in the room with family members at bedside ; patient is resting in bed and does complain of some incisional pain; patient relates that pain is worse when she gets out of the bed to go to the bathroom; vital signs are stable; patient's abdomen is soft with mild diffuse tenderness with pink stoma; some stool is present in colostomy bag; patient's diet has been advanced to full liquid Anticipated discharged home in next 48 hours. 12/24/2017 Patient is postoperative day 4. Patient is resting comfortably on the bed. Tolerating oral diet. Liquid stool in the colostomy bag. Patient is being continued on antibiotics in the form of cefazolin for possible cellulitis around the stoma. Encourage ambulation and incentive spirometry. Advance diet as tolerated. anticipate discharge next 24-48 hours. All other review of systems negative except the above . Current medications reviewed. Objective - Vital Signs Vital signs: Vital Signs Temp 98.9 F 12/24/17 07:48 Pulse 78 12/24/17 07:48 Resp 16 12/24/17 07:48 BP 105/75 12/24/17 07:48 Pulse Ox 96 12/24/17 07:48 Intake & Output 12/23/17 12/24/17 12/24/17 18:59 06:59 18:59 Intake Total 1100 Balance 1100 Intake: Intake, IV Titration 1100 Amount D5-0.45% NaCl with KCl 1100 20Meq/l 1,000 ml @ 125 mls/hr IV .Q8H [facility] Rx#: [id number] Other: Voiding Method Toilet Toilet Toilet # Voids 2 3 - Exam PHYSICAL EXAMINATION: Patient is lying in the bed comfortably, no acute distress, awake alert and oriented.. HEENT: Normocephalic. Neck is supple. Pupils reactive. Nostrils clear. Oral cavity is moist. Ears reveal no drainage. Neck reveals no JVD, carotid bruits, or thyromegaly. CHEST EXAMINATION: Trachea is central. Symmetrical expansion. Lung murrell clear to auscultation and percussion. CARDIAC: Normal S1, S2 with no gallops. No murmurs ABDOMEN: Soft. Bowel sounds normal. No organomegaly. No abdominal bruits. Some redness around the stomal margin. Liquid stool in the colostomy bag. Mild tenderness at the incision site. Extremities: reveal no edema. No clubbing or cyanosis Neurologically awake, alert, oriented x3 with well-coordinated movements. No focal deficits noted Skin: No rash or skin lesions. Psychiatric: Coperative. Nonsuicidal Musculoskeletal: No joint swelling or deformity. Normal range of motion. - Labs CBC & Chem 7: 12/24/17 06:37 12/24/17 06:37 Labs: Abnormal Lab Results - Last 24 Hours (Table) 12/24/17 Range/Units 06:37 Potassium 5.5 H (3.5-5.1) mmol/L Chloride 115 H (98-107) mmol/L Carbon Dioxide 17 L (22-30) mmol/L Assessment and Plan Assessment: 1. Acute Perforated diverticulitis; s/p exploratory laparotomy with sigmoid resection and colostomy; POD #4 - Patient continues to have abdominal binder; pain control per surgical team - Remains on clear liquid diet with a plan to advance as tolerated - Pain controlled with epidural pain pump and Dilaudid 1 mg IV every 3 hours when necessary - Symptomatic treatment for nausea and vomiting with Reglan 10 mg IV every 6 hours and Zofran 4-8 mg every 8 hours when necessary 2. Possible cellulitis around stoma margin. Patient is being continued on antibiotics in the form of cefazolin. 2. Intermittent asthma; not in exacerbation - Continue with bronchodilator nebulizer treatments every 6 hours when necessary for shortness of breath 3. Gastroesophageal reflux disease; stable on Protonix 40 mg IV twice a day 4. Hypothyroidism; clinically euthyroid on levothyroxine 50 MCG daily 5. Morbid obesity; BMI of 40.7 6. Anxiety/depression/fibromyalgia; stable on Topamax, trazodone and BuSpar 7. DVT prophylaxis; per surgery team recommendations CODE STATUS; full code Time with Patient: Greater than 30
[2017-12-25] MEDS: D5-0.45% NACL WITH KCL 20MEQ/L 1,000 ML IV SCH ×3 (00:13→12:51)
[2017-12-25] MEDS: ceFAZolin 1,000 MG in DEXTROSE/WATER 1 50ML.BAG IVPB SCH ×2 (04:48→12:51)
[2017-12-25] MEDS: SODIUM CHLORIDE 0.9% 1,000 ML IV SCH ×2 (05:37→12:51)
[2017-12-25] MEDS: LEVOTHYROXINE 50 MCG TAB PO SCH (05:56)
[2017-12-25 07:27] VITALS: BP 113/77; PULSE 73; RESP 15; TEMP 98.1
[2017-12-25] MEDS: PANTOPRAZOLE 40 MG/10 ML VIAL IVP SCH (09:11)
[2017-12-25] MEDS: busPIRone HCl 5 MG TAB PO SCH (09:11)
[2017-12-25] MEDS: ALVIMOPAN 12 MG CAPSULE PO SCH (09:11)
[2017-12-25] MEDS: TOPIRAMATE 100 MG TAB PO SCH (09:11)
[2017-12-25] MEDS: PREGABALIN 75 MG CAP PO SCH (09:11)
--- NOTE | 2017-12-25 10:42 | P.DS ---
Providers Date of admission: 12/19/17 07:18 Expected date of discharge: 12/25/17 Attending physician: Brayan Dubon Consults: 12/19/17 15:35 Consult Physician Routine Consulting Provider: Malick Fontenot Consult Reason/Comments: medical management Do you want consulting provider notified?: Yes Primary care physician: [facility] Course: 32-year-old female presented to emergency room to be evaluated for diffuse abdominal pain, nausea vomiting. Computed tomography scan abdomen pelvis in the emergency room showed a large amount of free air with sigmoid colon. December 19 underwent exploratory laparotomy, sigmoid colectomy, with ostomy for a perforated diverticulitis. Postop no new events. up ambulatory on the unit ostomy teaching had been initiated. the day of discharge ostomy was functioning. There was mild cellulitis on the left lower aspect of the incision. IV antibiotics were initiated transitioned to oral. Patient was felt to be hemodynamically stable and appropriate proceed with a discharge to home Impression discharge diagnoses Present on admission intractable diffuse abdominal pain with nausea vomiting Status post Noman procedure exploratory laparotomy, sigmoid colectomy, with ostomy for perforated diverticulitis Postop mild cellulitis left lower abdominal wall Chronic lower back pain opiate dependency Obesity BMI 40 Anxiety depressive disorder History of irritable bowel The above impression and plan of care have been discussed and directed by signing physician. Brisa Whitman nurse practitioner acting as scribe for signing physician. Discharge summary dictated for Dr. idalmis cassidy on behalf of Dr. dubon Patient Condition at Discharge: Poor Plan - Discharge Summary Discharge Rx Participant: Yes New Discharge Prescriptions: New Docusate [Colace] 100 mg PO BID #20 capsule HYDROcodone/APAP 7.5-325MG [[place] 7.5-325] 1 tab PO Q4H PRN 3 Days #18 tab PRN Reason: Pain Levofloxacin [Levaquin] 500 mg PO DAILY #10 tab No Action Levothyroxine Sodium [Synthroid] 50 mcg PO DAILY traZODone HCL [Desyrel] 100 mg PO HS Norethindrone-E.estradiol-Iron [Loestrin Fe 1.5-30 Tablet] 1 tab PO HS busPIRone HCL 15 mg PO BID Pregabalin [Lyrica] 75 mg PO QAM HYDROcodone/APAP 7.5-325MG [[place] 7.5-325] 1 tab PO TID PRN PRN Reason: Pain Albuterol Inhaler [Ventolin Hfa Inhaler] 2 puff INHALATION RT-Q6H PRN PRN Reason: Shortness Of Breath Meloxicam [Mobic] 15 mg PO DAILY Lisdexamfetamine Dimesylate [Vyvanse] 50 mg PO QAM Venlafaxine HCl [Effexor XR] 225 mg PO HS Famotidine [Pepcid] 20 mg PO BID Topiramate [Trokendi Xr] 200 mg PO DAILY Butalb/Acetaminophen/Caffeine [Fioricet 50-300-40 mg Capsule] 1 cap PO Q4HR PRN PRN Reason: Migraine Headache Pregabalin [Lyrica] 150 mg PO HS Methocarbamol [Robaxin-750] 750 mg PO TID PRN PRN Reason: Muscle Spasm Ondansetron Odt [Zofran Odt] 8 mg PO Q8HR PRN PRN Reason: Nausea Discharge Medication List Levothyroxine Sodium [Synthroid] 50 mcg PO DAILY 05/05/14 [History] traZODone HCL [Desyrel] 100 mg PO HS 04/04/15 [History] HYDROcodone/APAP 7.5-325MG [[place] 7.5-325] 1 tab PO TID PRN 05/01/16 [History] Norethindrone-E.estradiol-Iron [Loestrin Fe 1.5-30 Tablet] 1 tab PO HS 05/01/16 [History] Pregabalin [Lyrica] 75 mg PO QAM 05/01/16 [History] busPIRone HCL 15 mg PO BID 05/01/16 [History] Albuterol Inhaler [Ventolin Hfa Inhaler] 2 puff INHALATION RT-Q6H PRN 05/23/16 [ History] Meloxicam [Mobic] 15 mg PO DAILY 12/31/16 [History] Lisdexamfetamine Dimesylate [Vyvanse] 50 mg PO QAM 06/20/17 [History] Famotidine [Pepcid] 20 mg PO BID 07/19/17 [History] Topiramate [Trokendi Xr] 200 mg PO DAILY 07/19/17 [History] Venlafaxine HCl [Effexor XR] 225 mg PO HS 07/19/17 [History] Butalb/Acetaminophen/Caffeine [Fioricet 50-300-40 mg Capsule] 1 cap PO Q4HR PRN 08/28/17 [History] Pregabalin [Lyrica] 150 mg PO HS 11/07/17 [History] Methocarbamol [Robaxin-750] 750 mg PO TID PRN 11/16/17 [History] Ondansetron Odt [Zofran Odt] 8 mg PO Q8HR PRN 12/19/17 [History] Docusate [Colace] 100 mg PO BID #20 capsule 12/24/17 [Rx] HYDROcodone/APAP 7.5-325MG [[place] 7.5-325] 1 tab PO Q4H PRN 3 Days #18 tab 12/24 [Rx] Levofloxacin [Levaquin] 500 mg PO DAILY #10 tab 12/24/17 [Rx] Follow up Appointment(s)/Referral(s): Edgardo Inman MD [Primary Care Provider] - 1-2 days [facility], [NON-STAFF] - Brayan Dubon MD [STAFF PHYSICIAN] - 1 Week Patient Instructions/Handouts: Diverticulitis (DC), Diverticulitis (GEN), Colostomy Care (DC), Colostomy Care (GEN) Activity/Diet/Wound Care/Special Instructions: Colostomy Care recommendations for home as follows: Last pouching system change: 12.24.2017 Ms. Calhoun will be going home with the following supplies for her new colostomy: Convatec one piece cut to fit #[id number] (three pouches) No sting prpe pads (12) Ostomy powder (1) May need to use No sting prep around stoma followed by osotmy powder dust off gently , reapply no sting prep and then another layer of powder and then no sting prep aroudn the stoma (to the pick area as needed) with the pouch change. Additional supplies are ordered as samples from [facility] and being shipped to her home in 4-7 after hospital discharge. Ms. Calhoun is to empty the ostomy pouch when it is 1/2 to 1/3 full in the bathroom either while sitting on the toilet or facing the toilet. The pouching system must be changed every 3-5 days unless in a disposable pouch Home health please assist Ms Calhoun to order and obtain ostomy supplies form [employer] before discharging from service. Ms Calhoun is interested in disposable pouches if possible in 2-3 weeks.
--- NOTE | 2018-01-08 10:26 | P.OP ---
Date of Procedure: 12/19/17 Preoperative Diagnosis: perforated diverticulitis Postoperative Diagnosis: perforated diverticulitis Procedure(s) Performed: Noman procedure, sigmoid colectomy with end colostomy Anesthesia: GILL Surgeon: Brayan Meadows Estimated Blood Loss (ml): 30 Pathology: other (sigmoid colon) Condition: stable Disposition: PACU Description of Procedure: the patient was placed on the operating room table in the supine position. She received general anesthesia. Her abdomen was prepped and draped in the usual sterile fashion. The abdomen was entered through a low midline incision. The Bookwalter retractor was placed the wound. The abdomen was explored. There appeared to be a perforation of the sigmoid colon. The proximal sigmoid colon was visualized. And then the white line of Toldt's was divided. The proximal colon was then transected with the JEN stapler. Using the Enseal device the mesentery of the bowel was divided. The rectum was then transected with the contour stapler. The abdomen was irrigated. Next the suitable spot for the colostomy was chosen on the left anterior abdominal wall. The skin was incised. The fascia was divided at colostomy site. And then the rectus muscles were split. The colon was brought up through the colostomy site. The fascia was closed with looped #1 PDS suture. The skin was closed with quan. The colostomy was then matured with 3-0 Vicryl suture. Patient tolerated well and was sent to recovery room in stable condition.
== END 2017-12-25 14:30 | disposition home health service (06) | DRG 330 ==
LOC: EC 04:34 → 5MS5E 07:18 → 3SUR 14:02
PROVIDERS: ADMIT Surgery; ATTEND Surgery
PROC: 0DBM0ZZ Excision of Descending Colon, Open Approach (ICD-10-PCS; 2017-12-19)
PROC: 0D1M0Z4 Bypass Descending Colon to Cutaneous, Open Approach (ICD-10-PCS; 2017-12-19)
PROC: 0DTN0ZZ Resection of Sigmoid Colon, Open Approach (ICD-10-PCS; principal; 2017-12-19 14:40)
DX: K57.20 Diverticulitis of large intestine with perforation and abscess without bleeding (principal); F11.20 Opioid dependence, uncomplicated; L03.311 Cellulitis of abdominal wall; Z68.41 Body mass index [BMI] 40.0-44.9, adult; K66.8 Other specified disorders of peritoneum; E66.01 Morbid (severe) obesity due to excess calories; E03.9 Hypothyroidism, unspecified; F32.9 Major depressive disorder, single episode, unspecified; F41.9 Anxiety disorder, unspecified; F90.9 Attention-deficit hyperactivity disorder, unspecified type; G47.30 Sleep apnea, unspecified; G89.29 Other chronic pain; J45.20 Mild intermittent asthma, uncomplicated; K21.9 Gastro-esophageal reflux disease without esophagitis; K58.9 Irritable bowel syndrome, unspecified; M79.7 Fibromyalgia; G43.909 Migraine, unspecified, not intractable, without status migrainosus; M54.5 Low back pain; R73.9 Hyperglycemia, unspecified; Z79.890 Hormone replacement therapy; Z79.899 Other long term (current) drug therapy; Z79.1 Long term (current) use of non-steroidal anti-inflammatories (NSAID); Z88.5 Allergy status to narcotic agent; Z88.8 Allergy status to other drugs, medicaments and biological substances
CPT/HCPCS: 36415; 74177; 80048; 80053; 81001; 81025; 85025; 87086; 88307; 94640; 94760; 96365; 96375; 96376; 99285

== ENCOUNTER 2018-03-06 07:57 | Inpatient (IN) | payer OTHER ==
[2018-03-01 13:32] VITALS: BMI 41.1
[2018-03-06 09:08] LABS: Basophils % (A) 1 %; Eosinophils # (A) 0.1 k/uL (0-0.7); Eosinophils % (A) 2 %; HCT 44.7 % (34.0-46.0); HGB 14.1 gm/dL (11.4-16.0); Lymphocytes # (A) 1.8 k/uL (1.0-4.8); Lymphocytes % (A) 27 %; MCH 28.3 pg (25.0-35.0); MCHC 31.4 g/dL (31.0-37.0); MCV 90.1 fL (80.0-100.0); Mean Platelet Volume 6.8; Monocytes # (A) 0.3 k/uL (0-1.0); Monocytes % (A) 5 %; Neutrophils # (A) 4.3 k/uL (1.3-7.7); Neutrophils % (A) 64 %; Platelet Count 356 k/uL (150-450); RBC 4.97 m/uL (3.80-5.40); WBC 6.7 k/uL (3.8-10.6)
[2018-03-06 09:12] LABS: Potassium 4.1 mmol/L (3.5-5.1)
[2018-03-06] MEDS ORDERED: fentaNYL (PF) 50 MCG/ML 2 ML AMP IV PRN (14:27)
[2018-03-06] MEDS ORDERED: ONDANSETRON 4 MG/2 ML VIAL IVP ONE (14:27)
[2018-03-06] MEDS ORDERED: MIDAZOLAM 2 MG/2 ML VIAL IV PRN (14:27)
[2018-03-06] MEDS ORDERED: DEXAMETHASONE SOD PHOSPHATE 10 MG/ML 1 ML VIAL IV ONE (14:27)
[2018-03-06] MEDS ORDERED: LIDOCAINE 1% 20 ML VIAL (10MG/ML) FOR IV START INTRADERMA PRN (14:27)
[2018-03-07] MEDS ORDERED: HEPARIN SODIUM,PORCINE 5,000 UNIT/ML 1 ML VIAL SQ ONE (05:00)
[2018-03-07] MEDS ORDERED: metroNIDAZOLE-NS PMX 500 MG in SALINE 1 100ML.BAG IVPB ONE (05:00)
[2018-03-07] MEDS: LACTATED RINGERS 1,000 ML IV SCH ×2 (08:20→15:15)
[2018-03-07] MEDS ORDERED: NALOXONE 0.4 MG/ML 1 ML VIAL IV PRN (08:50)
--- NOTE | 2018-03-07 08:59 | P.GSHP ---
History of Present Illness H&P Date: 03/07/18 Chief Complaint: History of perforated diverticulitis This is a 32-year-old female who presents today for reversal of colostomy. Patient has had a previous history of perforated diverticulitis. Past Medical History Past Medical History: Asthma, Fibromyalgia, GERD/Reflux, Memory Impairment, Musculoskeletal Disorder, Sleep Apnea/CPAP/BIPAP, Thyroid Disorder Additional Past Medical History / Comment(s): Hx migraines, degenerative disc, IBS, and no CPAP used, colostomy. History of Any Multi-Drug Resistant Organisms: None Reported Past Surgical History: Bowel Resection Additional Past Surgical History / Comment(s): Dental, Rt Breast biopsy. Past Anesthesia/Blood Transfusion Reactions: No Reported Reaction Smoking Status: Never smoker - Past Family History Mother History Unknown: Yes Family Medical History: COPD Additional Family Medical History / Comment(s): depression, anxiety Medications and Allergies Home Medications Medication Instructions Recorded Confirmed Type Levothyroxine Sodium [Synthroid] 50 mcg PO DAILY 05/05/14 03/07/18 History traZODone HCL [Desyrel] 100 mg PO HS 04/04/15 03/07/18 History Norethindrone-E.estradiol-Iron 1 tab PO HS 05/01/16 03/07/18 History [Loestrin Fe 1.5-30 Tablet] Pregabalin [Lyrica] 75 mg PO QAM 05/01/16 03/07/18 History busPIRone HCL 15 mg PO BID 05/01/16 03/07/18 History Albuterol Inhaler [Ventolin Hfa 2 puff INHALATION RT-Q6H PRN 05/23/16 03/07/18 History Inhaler] Meloxicam [Mobic] 15 mg PO DAILY 12/31/16 03/07/18 History Lisdexamfetamine Dimesylate 50 mg PO QAM 06/20/17 03/07/18 History [Vyvanse] Famotidine [Pepcid] 20 mg PO BID 07/19/17 03/07/18 History Topiramate [Trokendi Xr] 200 mg PO DAILY 07/19/17 03/07/18 History Venlafaxine HCl [Effexor XR] 225 mg PO HS 07/19/17 03/07/18 History Butalb/Acetaminophen/Caffeine 1 cap PO Q4HR PRN 08/28/17 03/07/18 History [Fioricet 50-300-40 mg Capsule] Pregabalin [Lyrica] 150 mg PO HS 11/07/17 03/07/18 History Methocarbamol [Robaxin-750] 750 mg PO TID PRN 11/16/17 03/07/18 History Ondansetron Odt [Zofran ODT] 8 mg PO Q8HR PRN 12/19/17 03/07/18 History HYDROcodone/APAP 7.5-325MG [[place] 1 tab PO TID 03/01/18 03/07/18 History 7.5-325] Multivitamins, Thera [Multivitamin 1 tab PO DAILY 03/01/18 03/07/18 History (formulary)] Wheat Dextrin [Benefiber] 1 each PO DAILY 03/01/18 03/07/18 History Allergies Allergy/AdvReac Type Severity Reaction Status Date / Time tramadol Allergy Hallucinati Verified 03/07/18 07:52 ons valacyclovir HCl AdvReac BLURRED Verified 03/07/18 07:52 [From Valtrex] [facility] - Exam Vital Signs Temp Pulse Resp BP Pulse Ox 98.2 F 74 18 107/57 96 03/07/18 08:10 03/07/18 08:10 03/07/18 08:10 03/07/18 08:10 03/07/18 08:10 - General well developed, no distress - Eyes PERRL - ENT normal pinna - Neck no masses - Respiratory normal expansion - Cardiovascular Rhythm: regular - Abdomen Colostomy in left lower quadrant Abdomen: soft, non tender Results - Labs 03/06/18 08:40 03/06/18 08:40 Abnormal Lab Results - Last 24 Hours (Table) 03/06/18 Range/Units 08:40 Chloride 112 H (98-107) mmol/L Diabetes panel 03/06/18 Range/Units 08:40 Sodium 141 (137-145) mmol/L Potassium 4.1 (3.5-5.1) mmol/L Chloride 112 H (98-107) mmol/L Carbon Dioxide 22 (22-30) mmol/L Pituitary panel 03/06/18 Range/Units 08:40 Sodium 141 (137-145) mmol/L Potassium 4.1 (3.5-5.1) mmol/L Chloride 112 H (98-107) mmol/L Carbon Dioxide 22 (22-30) mmol/L Adrenal panel 03/06/18 Range/Units 08:40 Sodium 141 (137-145) mmol/L Potassium 4.1 (3.5-5.1) mmol/L Chloride 112 H (98-107) mmol/L Carbon Dioxide 22 (22-30) mmol/L Assessment and Plan Assessment: History of perforated diverticulitis. We'll perform reversal of colostomy. Patient aware the risk of recurrent colostomy. She is aware of risk of anastomotic leak, bleeding and infection.
[2018-03-07] MEDS ORDERED: ALVIMOPAN 12 MG CAPSULE PO STA (09:02)
[2018-03-07] MEDS ORDERED: LIDOCAINE 1% INJ 10MG/ML (20 ML MDV) ONE (09:30)
[2018-03-07] MEDS ORDERED: GLYCOPYRROLATE 0.2 MG/ML 2 ML VIAL ONE (09:30)
[2018-03-07] MEDS ORDERED: SUCCINYLCHOLINE CHLORIDE 100 MG/5 ML SYR IV ONE (09:30)
[2018-03-07] MEDS ORDERED: PROPOFOL 10 MG/ML 20 ML VIAL IV ONE (09:30)
[2018-03-07] MEDS ORDERED: MIDAZOLAM 2 MG/2 ML VIAL ONE (09:30)
[2018-03-07] MEDS: ceFAZolin IN SWFI 2 GM/20 ML SYRINGE IVP ONE ×2 (09:30→10:07)
[2018-03-07] MEDS ORDERED: fentaNYL (PF) 50 MCG/ML 2 ML AMP ONE (09:30)
[2018-03-07] MEDS ORDERED: ROCURONIUM BROMIDE 10 MG/ML 10 ML VIAL IV ONE (09:30)
[2018-03-07] MEDS ORDERED: NEOSTIGMINE 1 MG/ML 10 ML VIAL ONE (09:30)
[2018-03-07] MEDS ORDERED: ePHEDrine SULFATE/0.9% NACL/PF 50 MG/5 ML SYRINGE IV ONE (09:30)
[2018-03-07] MEDS ORDERED: LACTATED RINGERS 1,000 ML IV ONE (10:36)
[2018-03-07] MEDS ORDERED: ONDANSETRON 4 MG/2 ML VIAL IVP PRN (11:31)
[2018-03-07] MEDS ORDERED: BENZOCAINE/MENTHOL LOZENG 1 EACH LOZENGE MUCOUS MEM PRN (11:31)
--- NOTE | 2018-03-07 11:47 | P.OP ---
Date of Procedure: 03/07/18 Preoperative Diagnosis: History of perforated diverticulitis Postoperative Diagnosis: History of perforated diverticulitis Procedure(s) Performed: Reversal of colostomy Repair of incisional hernia Anesthesia: MAC Surgeon: Brayan Meadows Estimated Blood Loss (ml): 40 Pathology: other (colon) Condition: stable Description of Procedure: The patient's placed the operative table in the supine position. She received general anesthesia. Her abdomen was prepped and draped in sterile fashion. Patient will be submitted BMI 42. The abdomen was entered through a low midline Incision. There was a small incisional hernia. The Eduardo wound protector was placed. The incision was extended above the umbilicus. The adhesions to the abdominal wall were lysed using sharp dissection. Presently 20 minutes were used to lyse adhesions. The proximal colon was then transected at the fascial level using the GI stapler. And then divided by dividing the white line of Toldt's the left colon was mobilized. The pursestring device was placed on the proximal colon and fired. The colon was then opened and the anvil for the 25 mm EEA stapler was placed in the colon. The purse string was secured. Next the dilators placed patient anus. And then the 25 mm EEA stapler was placed patient anus and the stapler was guided along the rectal stump. The spike was then driven through the anterior rectal wall. And then the anvil was connected to the stapler. The stapler was then closed and then fired. 2 intact tissue rings were withdrawn for stapler. Next a bowel clamp was placed across the colon just proximal to the anastomosis. Using the rigid sigmoidoscope the colon was insufflated by insufflating air through the sigmoidoscope placed and anus. There is no evidence of extravasation. This point the abdomen was irrigated. The fascia was closed with looped #1 PDS suture. The skin was closed quan. The colostomy was then divided from the abdominal wall. The fascia was closed with 0 Ethibond suture. The skin was closed quan. Theervena wound system was placed as a dressing. Patient sent to recovery room stable condition.
[2018-03-07] MEDS: ROPIVACAINE 400 MG, HYDROMORPHONE (PF) 5 MG in SODIUM CHLORIDE 0.9% 170 ML EPIDURAL PRN (13:03)
[2018-03-07] MEDS: D5-0.45% NACL WITH KCL 20MEQ/L 1,000 ML IV SCH (14:27)
[2018-03-07] MEDS: diphenhydrAMINE 50 MG/ML 1 ML VIAL IVP PRN ×2 (15:22→21:57)
[2018-03-07 16:02] LABS: Basophils % (A) 0 %; Eosinophils % (A) 0 %; HCT 41.6 % (34.0-46.0); HGB 13.1 gm/dL (11.4-16.0); Lymphocytes # (A) 0.6 k/uL (1.0-4.8); Lymphocytes % (A) 5 %; MCH 28.4 pg (25.0-35.0); MCHC 31.5 g/dL (31.0-37.0); MCV 90.1 fL (80.0-100.0); Mean Platelet Volume 6.7; Monocytes # (A) 0.3 k/uL (0-1.0); Monocytes % (A) 2 %; Neutrophils # (A) 11.4 k/uL (1.3-7.7); Neutrophils % (A) 92 %; Platelet Count 316 k/uL (150-450); RBC 4.61 m/uL (3.80-5.40); RDW 12.6 % (11.5-15.5); WBC 12.3 k/uL (3.8-10.6)
[2018-03-07 16:13] LABS: Anion Gap 7 mmol/L; Blood Urea Nitrogen 13 mg/dL (7-17); Carbon Dioxide 24 mmol/L (22-30); Chloride 107 mmol/L (98-107); Glucose 139 mg/dL (74-99); Potassium 4.5 mmol/L (3.5-5.1); Sodium 138 mmol/L (137-145)
[2018-03-07] MEDS: HEPARIN SODIUM,PORCINE 5,000 UNIT/ML 1 ML VIAL SQ SCH (17:16)
[2018-03-07] MEDS ORDERED: METHOCARBAMOL 750 MG TAB PO PRN (23:22)
[2018-03-07] MEDS ORDERED: BUTALB/APAP/CAFF 50-325-40MG TAB PO PRN (23:22)
[2018-03-07] MEDS ORDERED: ALBUTEROL NEBULIZED 2.5 MG/3 ML INHALATION PRN (23:22)
[2018-03-07] MEDS ORDERED: HYDROcodone/APAP 7.5-325MG 1 EACH TAB PO PRN (23:30)
[2018-03-08] MEDS: traZODone HCL 100 MG TAB PO SCH ×2 (00:22→21:38)
[2018-03-08] MEDS: VENLAFAXINE HCL ER 75 MG CAP PO SCH ×2 (00:22→21:37)
[2018-03-08] MEDS: PREGABALIN 75 MG CAP PO SCH ×3 (00:22→21:38)
[2018-03-08] MEDS: D5-0.45% NACL WITH KCL 20MEQ/L 1,000 ML IV SCH ×4 (00:28→23:39)
[2018-03-08] MEDS: HEPARIN SODIUM,PORCINE 5,000 UNIT/ML 1 ML VIAL SQ SCH ×4 (00:28→23:42)
[2018-03-08] MEDS: LEVOTHYROXINE 50 MCG TAB PO SCH (06:20)
[2018-03-08] MEDS: diphenhydrAMINE 50 MG/ML 1 ML VIAL IVP PRN ×2 (06:20→11:56)
--- NOTE | 2018-03-08 06:25 | P.PN ---
Progress Note - Text Progress Note Date: 03/08/18 Postoperative day # status post , reversal colostomy ,epidural catheter placed for postoperative analgesia, patient doing well epidural site okay, patient currently on combination of epidural infusion solution of Ropivacaine 0.0625% and Dilaudid 20 g per mL the infusion rate at 6 ml per hour , patient had no motor deficit epidural site okay , vital signs stable ,VAS 2-3 / 10 , and had some itching which she is receiving Benadryl ,and is helping her itching , Assessment and plan= post operative day # 1 patient doing well ,pain well controlled , there is no anesthesia related complications
--- NOTE | 2018-03-08 08:34 | CONS ---
CONSULTATION DATE OF CONSULTATION: 03/07/2018 REASON FOR CONSULTATION: Medical management requested by Dr. Meadows. CONSULTATION: This is a very pleasant 32-year-old patient of Dr. Inman. Chronic stable medical conditions include possible demyelinating process, morbid obesity, intermittent asthma, GERD, anxiety, depression, hypothyroidism. The patient had a ruptured diverticulum and had a colostomy bag done in December of this year. The patient had reversal of colostomy done. The patient has got a incision VAC in place. Pain is controlled. No nausea or vomiting. REVIEW OF SYSTEMS: CONSTITUTIONAL: Tired. HEENT: None. RESPIRATORY: None. CARDIOVASCULAR: None. GASTROINTESTINAL: As above. GENITOURINARY: None. MUSCULOSKELETAL: Pain in the joints. DERMATOLOGICAL: None. HEMATOLOGICAL: None. LYMPHATIC: None. PSYCHIATRY: None. NEUROLOGICAL: The patient occasionally has had trouble with words and numbness and tingling in the feet for some time. PAST MEDICAL HISTORY: Demyelinating process workup in place, intermittent asthma, GERD, irritable bowel syndrome, anxiety, depression, hypothyroid, ruptured diverticulum to colostomy. PAST SURGICAL HISTORY: Bowel resection to colostomy PSYCH HISTORY: History of ADHD, bipolar. 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 Alcohol occasionally. Does not smoke. Lives with her . FAMILY HISTORY: Reviewed noncontributory to presentation. HOME MEDICATIONS: 1. Desyrel 100 mg q.h.s. 2. Buspirone 50 mg p.o. b.i.d. 3. Benefiber 1 pack p.o. daily. 4. Effexor XR 225 mg p.o. q.h.s. 5. Trokendi XR 200 mg p.o. daily. 6. Lyrica 150 mg q.h.s. and 75 mg in the morning. 7. Zofran 8 mg q.8 p.r.n. 8. Loestrin 1 tablet p.o. q.h.s. 9. Multivitamin tablet p.o. daily. 10.Robaxin 750 mg p.o. t.i.d. p.r.n. 11.Mobic 15 mg p.o. daily. 12.Vyvanse 50 mg p.o. daily. 13.Synthroid 50 mcg p.o. daily. 14.[place] 7.5 one tab p.o. t.i.d. 15.Pepcid 20 mg b.i.d. 16.Fioricet 1 capsule p.o. q.4 p.r.n. 17.Ventolin HFA 2 puffs q.6 p.r.n. ALLERGIES: Allergies to ULTRAM and VALTREX. PHYSICAL EXAMINATION: On examination, temperature 98.1, pulse 98, respiration 18, blood pressure 104/66, pulse ox 95% on room air. GENERAL APPEARANCE: Well built, BMI 41.2. Lying in bed. Tired. EYES: Pupils equal. Conjunctivae normal. HENT: External appearance of nose and ears normal. Oral cavity normal. NECK: JVD not raised. Mass not palpable. RESPIRATORY: Effort normal. LUNGS: Fair entry. CARDIOVASCULAR: First and second sounds normal. No edema. ABDOMEN: Incision VAC in place. Some tenderness. Liver and spleen not palpable. LYMPHATIC: No lymph node palpable in the neck or axillae. PSYCHIATRY: Alert and oriented x3. Mood and affect normal. NEUROLOGICAL: Pupils equal. Cranial nerves grossly intact. Power and sensation grossly intact. INVESTIGATIONS: White count 6.7, hemoglobin 14.1. Potassium 4.1. ASSESSMENT: 1. Reversal of colostomy in a patient who had previously ruptured colonic diverticulum. 2. Morbid obesity, body mass index greater than 40. 3. Intermittent asthma, controlled. 4. Gastroesophageal reflux disease. 5. Anxiety, depression, not otherwise specified. 6. Hypothyroidism. PLAN: Home medications are resumed. Patient is currently on a clear liquid diet. Venodyne boots are in place. Care was discussed with the patient. Questions were answered. Thank you Dr. Meadows. Will follow. MMODL / IJN: [id number] /
[2018-03-08] MEDS: FAMOTIDINE 20 MG TAB PO SCH ×2 (08:59→21:38)
[2018-03-08] MEDS: ALVIMOPAN 12 MG CAPSULE PO SCH ×2 (08:59→21:38)
[2018-03-08] MEDS: TOPIRAMATE 100 MG TAB PO SCH ×2 (08:59→21:38)
[2018-03-08] MEDS: busPIRone HCl 5 MG TAB PO SCH ×2 (08:59→21:38)
[2018-03-08 10:00] LABS: Basophils % (A) 0 %; Eosinophils % (A) 0 %; HGB 12.7 gm/dL (11.4-16.0); Lymphocytes % (A) 18 %; MCH 29.1 pg (25.0-35.0); MCHC 31.8 g/dL (31.0-37.0); MCV 91.4 fL (80.0-100.0); Mean Platelet Volume 6.8; Monocytes # (A) 0.5 k/uL (0-1.0); Monocytes % (A) 4 %; Neutrophils # (A) 8.4 k/uL (1.3-7.7); Neutrophils % (A) 76 %; Platelet Count 287 k/uL (150-450); RBC 4.38 m/uL (3.80-5.40); RDW 12.8 % (11.5-15.5)
[2018-03-08 10:24] LABS: ALT 29 U/L (9-52); AST 55 U/L (14-36); Albumin 3.2 g/dL (3.5-5.0); Alkaline Phosphatase 53 U/L (38-126); Anion Gap 6 mmol/L; Blood Urea Nitrogen 12 mg/dL (7-17); Calcium 8.6 mg/dL (8.4-10.2); Carbon Dioxide 25 mmol/L (22-30); Chloride 107 mmol/L (98-107); Glucose 104 mg/dL (74-99); Potassium 4.2 mmol/L (3.5-5.1); Sodium 138 mmol/L (137-145); Total Bilirubin 0.6 mg/dL (0.2-1.3); Total Protein 5.9 g/dL (6.3-8.2)
--- NOTE | 2018-03-08 11:17 | P.PN ---
Subjective Progress Note Date: 03/08/18 32-year-old female seen this morning at the bedside. Epidural in place for pain control. Patient reports having episodes of itching in which Benadryl has been given. Anesthesia monitoring the epidural. Patient is postop day 1 reversal of colostomy and repair of incisional hernia done on March 07 surgical dressing site dry prevera wound system in place abdomen soft nondistended no nausea no vomiting White count 11 electrolytes within normal limits Objective - Vital Signs Vital signs: Vital Signs Temp 98.1 F 03/08/18 07:35 Pulse 60 03/08/18 09:58 Resp 16 03/08/18 09:58 BP 114/73 03/08/18 07:35 Pulse Ox 94 L 03/08/18 07:35 Intake & Output 03/07/18 03/08/18 03/08/18 18:59 06:59 18:59 Intake Total 1724 1500 Output Total 310 500 Balance 1414 1000 Weight 119.295 kg Intake: IV 1724 Intake, IV Titration 1500 Amount D5-0.45% NaCl with KCl 1500 20Meq/l 1,000 ml @ 125 mls/hr IV .Q8H [facility] Rx#: [id number] Output: Urine 260 500 Estimated Blood Loss 50 Other: Voiding Method Indwelling Catheter Indwelling Catheter Indwelling Catheter - Exam Physical exam 32-year-old female's sitting up in bed appears in no acute distress Lungs adequate air movement bilaterally on room air Heart S1-S2 audible regular Abdomen obese soft nontender surgical dressing site dry with a prevena will system in place states is not passing gas no nausea no vomiting tolerating clear liquids indwelling Christian catheter in place nondistended Extremities Venodyne's on bilaterally no edema - Labs CBC & Chem 7: 03/08/18 09:15 03/08/18 09:15 Labs: Abnormal Lab Results - Last 24 Hours (Table) 03/07/18 03/07/18 03/08/18 Range/Units 15:42 15:45 09:15 WBC 12.3 H 11.0 H (3.8-10.6) k/uL Neutrophils # 11.4 H 8.4 H (1.3-7.7) k/uL Lymphocytes # 0.6 L (1.0-4.8) k/uL Glucose 139 H (74-99) mg/dL AST (14-36) U/L Total Protein (6.3-8.2) g/dL Albumin (3.5-5.0) g/dL 03/08/18 Range/Units 09:15 WBC (3.8-10.6) k/uL Neutrophils # (1.3-7.7) k/uL Lymphocytes # (1.0-4.8) k/uL Glucose 104 H (74-99) mg/dL AST 55 H (14-36) U/L Total Protein 5.9 L (6.3-8.2) g/dL Albumin 3.2 L (3.5-5.0) g/dL Assessment and Plan Assessment: Impression Postop March 07 reversal of colostomy and repair of incisional hernia History of a perforated diverticulitis Depressive anxiety disorder Chronic lower back pain opiate dependent Obesity BMI 41 History of a Santana's procedure with sigmoid colectomy with colostomy for perforated diverticulitis in December 2017 Plan Continue postop surgical care Pain control Epidural per anesthesiologist defer to Increase activity Encourage use of incentive spirometer Clear liquid diet DVT and GI prophylaxis The above impression and plan of care have been discussed and directed by signing physician. Brisa Whitman nurse practitioner acting as scribe for signing physician.
[2018-03-08] MEDS: Lisdexamfetamine Dimesylate [Vyvanse] 50 MG PO SCH (11:27)
[2018-03-08] MEDS ORDERED: NALBUPHINE 10 MG/ML VIAL (10ML MDV) IV PRN (12:05)
[2018-03-08] MEDS: MULTIVITAMINS, THERA 1 EACH TAB PO SCH (12:51)
--- NOTE | 2018-03-08 16:19 | PN ---
PROGRESS NOTE DATE OF SERVICE: 03/08/2018 PRESENTING COMPLAINT: Abdominal surgery and reversal of colostomy. INTERVAL HISTORY: Patient is status post reversal of colostomy, feeling better today, sitting up in bed. She had some gurgling; not passed any flatus. Minimal nausea. The patient is on a clear liquid diet. REVIEW OF SYSTEMS: Done for constitutional, cardiovascular, GI, pulmonary; relevant findings as above. CURRENT MEDICATIONS: Reviewed. They include IV fluids, only at 20 mL/hour. PHYSICAL EXAMINATION: Temperature 98.7, pulse 90, respiration 16, blood pressure 124/78, pulse ox 93% on room air. GENERAL APPEARANCE: Sitting up. Tired-appearing. EYES: Pupils equal. Conjunctivae normal. HEENT: External appearance of nose and ears normal. Oral cavity normal. NECK: JVD not raised. Mass not palpable. RESPIRATORY: Effort normal. LUNGS: Fair air entry. CARDIOVASCULAR: First and second sounds normal. No edema. ABDOMEN: Soft. Mild tenderness. Incision V.A.C. in place. PSYCHIATRY: Alert and oriented x3. Mood and affect normal. INVESTIGATIONS: White count 11, hemoglobin 12.7, potassium 4.2. ASSESSMENT: 1. Reversal of colostomy in a patient who has had previously ruptured colonic diverticulum. 2. Morbid obesity; body mass index greater than 40. 3. Intermittent asthma, controlled. 4. Gastroesophageal reflux disease. 5. Anxiety and depression not otherwise specified. 6. Hypothyroidism. PLAN: Patient is doing better. Care was discussed with the patient. Diet to be advanced per Surgery. MMODL / IJN: [id number] /
[2018-03-08] MEDS: ROPIVACAINE 400 MG, HYDROMORPHONE (PF) 5 MG in SODIUM CHLORIDE 0.9% 170 ML EPIDURAL PRN (21:36)
[2018-03-08] MEDS: LACTATED RINGERS 1,000 ML IV SCH (23:38)
[2018-03-08] MEDS: NORETHINDRONE E ESTRADIOL IRON PO SCH (23:38)
[2018-03-09] MEDS: LEVOTHYROXINE 50 MCG TAB PO SCH (06:21)
[2018-03-09] MEDS: D5-0.45% NACL WITH KCL 20MEQ/L 1,000 ML IV SCH ×3 (06:22→22:02)
[2018-03-09 07:53] LABS: Basophils % (A) 0 %; Eosinophils # (A) 0.2 k/uL (0-0.7); Eosinophils % (A) 2 %; HCT 36.2 % (34.0-46.0); HGB 11.6 gm/dL (11.4-16.0); Lymphocytes # (A) 1.9 k/uL (1.0-4.8); Lymphocytes % (A) 18 %; MCH 28.7 pg (25.0-35.0); MCHC 32.1 g/dL (31.0-37.0); MCV 89.2 fL (80.0-100.0); Monocytes # (A) 0.6 k/uL (0-1.0); Monocytes % (A) 5 %; Neutrophils # (A) 7.6 k/uL (1.3-7.7); Neutrophils % (A) 73 %; Platelet Count 282 k/uL (150-450); RBC 4.05 m/uL (3.80-5.40); RDW 12.8 % (11.5-15.5); WBC 10.3 k/uL (3.8-10.6)
[2018-03-09 08:06] LABS: ALT 24 U/L (9-52); AST 54 U/L (14-36); Albumin 2.7 g/dL (3.5-5.0); Alkaline Phosphatase 50 U/L (38-126); Anion Gap 5 mmol/L; Blood Urea Nitrogen 8 mg/dL (7-17); Calcium 8.3 mg/dL (8.4-10.2); Carbon Dioxide 25 mmol/L (22-30); Chloride 105 mmol/L (98-107); Glucose 112 mg/dL (74-99); Potassium 4.3 mmol/L (3.5-5.1); Sodium 135 mmol/L (137-145); Total Bilirubin 0.5 mg/dL (0.2-1.3); Total Protein 5.3 g/dL (6.3-8.2)
[2018-03-09] MEDS: busPIRone HCl 5 MG TAB PO SCH ×2 (08:57→22:01)
[2018-03-09] MEDS: TOPIRAMATE 100 MG TAB PO SCH ×2 (08:57→22:02)
[2018-03-09] MEDS: PREGABALIN 75 MG CAP PO SCH ×2 (08:58→22:02)
[2018-03-09] MEDS: FAMOTIDINE 20 MG TAB PO SCH ×2 (08:58→22:02)
[2018-03-09] MEDS: ALVIMOPAN 12 MG CAPSULE PO SCH ×2 (08:58→22:02)
[2018-03-09] MEDS: MULTIVITAMINS, THERA 1 EACH TAB PO SCH (08:58)
[2018-03-09] MEDS: HEPARIN SODIUM,PORCINE 5,000 UNIT/ML 1 ML VIAL SQ SCH ×2 (08:58→16:48)
--- NOTE | 2018-03-09 09:43 | P.PN ---
Progress Note - Text Progress Note Date: 03/09/18 The patient is resting comfortably in bed. She has had no significant bowel function. On exam her vital signs are stable. Her abdomen soft. Incision site is clean dry and intact. Patient is status post reversal colostomy postoperative day 1. We'll continue supportive care.
--- NOTE | 2018-03-09 16:51 | P.PN ---
Progress Note - Text 03/09 3101 32-year-old female with an epidural catheter for postop pain control. Epidural solution running at 4 mL an hour with a VAS of 1. No motor or sensory deficits ambulating well. Plan to DC the epidural in the morning
[2018-03-09] MEDS: LACTATED RINGERS 1,000 ML IV SCH (17:38)
[2018-03-09] MEDS: Lisdexamfetamine Dimesylate [Vyvanse] 50 MG PO SCH (17:38)
[2018-03-09] MEDS: VENLAFAXINE HCL ER 75 MG CAP PO SCH (22:01)
[2018-03-09] MEDS: traZODone HCL 100 MG TAB PO SCH (22:02)
[2018-03-09] MEDS: NORETHINDRONE E ESTRADIOL IRON PO SCH (22:03)
--- NOTE | 2018-03-10 00:14 | PN ---
PROGRESS NOTE DATE OF SERVICE: March 09, 2018. PRESENTING COMPLAINT: Reversal colostomy. INTERVAL HISTORY: Patient is status post reversal of colostomy. Diet has been advanced. Has passed some flatus. No bowel movement. Was planning to be out of bed and take a walk later this afternoon. REVIEW OF SYSTEMS: Done for constitutional, cardiovascular, GI, pulmonary; relevant findings as above. The patient has got a epidural in place. CURRENT MEDICATIONS: Reviewed that include epidural. PHYSICAL EXAMINATION: VITAL SIGNS: Temperature 98, pulse 72, respiration 16, blood pressure 119/80, pulse ox 98% on room air. GENERAL APPEARANCE: Sitting up, more awake. EYES: Pupils equal. Conjunctivae normal. HEENT: External appearance of nose and ears normal. Oral cavity normal. NECK: JVD not raised. Mass not palpable. RESPIRATORY: Effort normal. LUNGS are fair and clear. CARDIOVASCULAR: 1st and 2nd sounds normal. No edema. ABDOMEN: Soft. Some tenderness. Incision VAC in place. PSYCHIATRY: Alert and oriented x3. Mood and affect normal. INVESTIGATIONS: White count 10.3, hemoglobin 11.3. AST 54, ALT 24. ASSESSMENT: 1. Reversal colostomy. The patient had previously ruptured colonic diverticulum. 2. Morbid obesity BMI greater than 40. 3. Intermittent asthma controlled. 4. Gastroesophageal reflux disease. 5. Anxiety/depression not otherwise specified. 6. Hypothyroidism. PLAN: Continue current medication and treatment plan. Patient encouraged to ambulate. We will follow. JAIRO / CHRISTIANN: [id number] /
[2018-03-10] MEDS: HEPARIN SODIUM,PORCINE 5,000 UNIT/ML 1 ML VIAL SQ SCH ×4 (01:05→23:49)
[2018-03-10] MEDS: LEVOTHYROXINE 50 MCG TAB PO SCH (06:04)
[2018-03-10] MEDS: D5-0.45% NACL WITH KCL 20MEQ/L 1,000 ML IV SCH ×3 (06:04→19:49)
--- NOTE | 2018-03-10 06:53 | P.PN ---
Progress Note - Text 03/10 640am 32-year-old female status post exploratory lap by Dr. dubon. Improving 40s with a VAS of 0. No motor or sensory deficits noted To DC the Epidural. nurse informed
[2018-03-10 07:15] LABS: Basophils % (A) 0 %; Eosinophils # (A) 0.3 k/uL (0-0.7); Eosinophils % (A) 3 %; HCT 37.3 % (34.0-46.0); HGB 12.1 gm/dL (11.4-16.0); Lymphocytes % (A) 11 %; MCH 29.1 pg (25.0-35.0); MCHC 32.3 g/dL (31.0-37.0); MCV 89.9 fL (80.0-100.0); Mean Platelet Volume 7.3; Monocytes # (A) 0.5 k/uL (0-1.0); Monocytes % (A) 5 %; Neutrophils # (A) 7.9 k/uL (1.3-7.7); Neutrophils % (A) 81 %; Platelet Count 277 k/uL (150-450); RBC 4.15 m/uL (3.80-5.40); RDW 13.2 % (11.5-15.5); WBC 9.8 k/uL (3.8-10.6)
[2018-03-10 07:26] LABS: ALT 29 U/L (9-52); AST 50 U/L (14-36); Albumin 2.9 g/dL (3.5-5.0); Alkaline Phosphatase 66 U/L (38-126); Anion Gap 7 mmol/L; Blood Urea Nitrogen 4 mg/dL (7-17); Calcium 8.8 mg/dL (8.4-10.2); Carbon Dioxide 23 mmol/L (22-30); Chloride 109 mmol/L (98-107); Glucose 114 mg/dL (74-99); Potassium 4.1 mmol/L (3.5-5.1); Sodium 139 mmol/L (137-145); Total Bilirubin 0.5 mg/dL (0.2-1.3); Total Protein 5.6 g/dL (6.3-8.2)
[2018-03-10] MEDS: busPIRone HCl 5 MG TAB PO SCH ×2 (09:38→21:28)
[2018-03-10] MEDS: PREGABALIN 75 MG CAP PO SCH ×2 (09:38→21:28)
[2018-03-10] MEDS: MULTIVITAMINS, THERA 1 EACH TAB PO SCH (09:38)
[2018-03-10] MEDS: FAMOTIDINE 20 MG TAB PO SCH ×2 (09:38→21:28)
[2018-03-10] MEDS: TOPIRAMATE 100 MG TAB PO SCH ×2 (09:39→21:28)
[2018-03-10] MEDS: Lisdexamfetamine Dimesylate [Vyvanse] 50 MG PO SCH (09:41)
[2018-03-10] MEDS: ALVIMOPAN 12 MG CAPSULE PO SCH ×2 (09:43→21:28)
--- NOTE | 2018-03-10 09:59 | P.PN ---
Progress Note - Text Progress Note Date: 03/10/18 The patient is resting comfortably in her bed. She states she had flatus yesterday. On exam her vital signs are stable. Her abdomen soft. Postoperative day 2 from reversal of colostomy. Patient will have her diet advanced to full liquid diet. We anticipate be discharged home the next 48 hours.
[2018-03-10] MEDS ORDERED: MORPHINE SULFATE 4 MG/ML SYRINGE IVP PRN (12:26)
[2018-03-10] MEDS: HYDROmorphone 1 MG/ML 1 ML SYRINGE IVP PRN ×3 (14:36→22:41)
--- NOTE | 2018-03-10 17:18 | PN ---
PROGRESS NOTE DATE OF SERVICE: 03/10/2018. PRESENTING COMPLAINT: Reversal of colostomy. INTERVAL HISTORY: The patient is status post reversal of colostomy. Diet was further advanced, having cramping in the stomach. Has been out of bed up in the hallway. No bowel movement. Pain is better controlled. Minimal nausea. REVIEW OF SYSTEMS: Done for constitutional, cardiovascular, GI, pulmonary; relevant findings as above. CURRENT MEDICATIONS: Reviewed. PHYSICAL EXAMINATION: Temperature 99.1, pulse 96, respirations 16, blood pressure 105/73, pulse ox 99% on room air. GENERAL APPEARANCE: Sitting up, looking more perky. EYES: Pupils equal. Conjunctivae normal. HEENT: External appearance of nose and ears normal. Oral cavity normal. NECK: JVD not raised. Mass not palpable. RESPIRATORY: Effort, lungs are clear. CARDIOVASCULAR: First and second sounds, no edema. ABDOMEN: Soft. Minimal tenderness. Incision VAC in place. PSYCHIATRY: Alert and oriented x3. Mood and affect normal. INVESTIGATIONS: White count 9.8, potassium 4.1, BUN and creatinine are normal. ASSESSMENT: 1. Reversal of colostomy. Patient has a previous left colonic diverticulum. 2. Morbid obesity, BMI greater than 40. 3. Intermittent asthma controlled. 4. Gastroesophageal reflux disease. 5. Anxiety and depression, not otherwise specified. 6. Hypothyroidism. PLAN: Patient is doing well. Continue current medication and treatment plan. MMODL / IJN: [id number] /
[2018-03-10] MEDS: LACTATED RINGERS 1,000 ML IV SCH (19:51)
[2018-03-10] MEDS: traZODone HCL 100 MG TAB PO SCH (21:28)
[2018-03-10] MEDS: VENLAFAXINE HCL ER 75 MG CAP PO SCH (21:28)
[2018-03-10] MEDS: NORETHINDRONE E ESTRADIOL IRON PO SCH (21:29)
[2018-03-11] MEDS: LEVOTHYROXINE 50 MCG TAB PO SCH (06:01)
[2018-03-11] MEDS: D5-0.45% NACL WITH KCL 20MEQ/L 1,000 ML IV SCH ×2 (08:21→20:11)
[2018-03-11] MEDS: busPIRone HCl 5 MG TAB PO SCH ×2 (08:21→20:18)
[2018-03-11] MEDS: TOPIRAMATE 100 MG TAB PO SCH ×2 (08:22→20:18)
[2018-03-11] MEDS: HEPARIN SODIUM,PORCINE 5,000 UNIT/ML 1 ML VIAL SQ SCH ×4 (08:22→21:46)
[2018-03-11] MEDS: PREGABALIN 75 MG CAP PO SCH ×2 (08:22→20:17)
[2018-03-11] MEDS: FAMOTIDINE 20 MG TAB PO SCH ×2 (08:22→20:18)
[2018-03-11] MEDS: ALVIMOPAN 12 MG CAPSULE PO SCH ×2 (08:22→20:17)
[2018-03-11] MEDS: MULTIVITAMINS, THERA 1 EACH TAB PO SCH (08:22)
[2018-03-11] MEDS: Lisdexamfetamine Dimesylate [Vyvanse] 50 MG PO SCH (08:25)
[2018-03-11 10:20] LABS: ALT 32 U/L (9-52); AST 37 U/L (14-36); Albumin 3.1 g/dL (3.5-5.0); Alkaline Phosphatase 92 U/L (38-126); Anion Gap 7 mmol/L; Blood Urea Nitrogen 4 mg/dL (7-17); Calcium 9.2 mg/dL (8.4-10.2); Carbon Dioxide 19 mmol/L (22-30); Chloride 114 mmol/L (98-107); Glucose 106 mg/dL (74-99); Potassium 4.7 mmol/L (3.5-5.1); Sodium 140 mmol/L (137-145); Total Bilirubin 0.5 mg/dL (0.2-1.3); Total Protein 6.1 g/dL (6.3-8.2)
[2018-03-11 10:26] LABS: Basophils % (A) 0 %; Eosinophils # (A) 0.3 k/uL (0-0.7); Eosinophils % (A) 4 %; HCT 37.9 % (34.0-46.0); Lymphocytes # (A) 1.6 k/uL (1.0-4.8); Lymphocytes % (A) 22 %; MCH 28.7 pg (25.0-35.0); MCHC 31.6 g/dL (31.0-37.0); MCV 90.6 fL (80.0-100.0); Mean Platelet Volume 7.4; Monocytes # (A) 0.4 k/uL (0-1.0); Monocytes % (A) 5 %; Neutrophils % (A) 67 %; Platelet Count 342 k/uL (150-450); RBC 4.18 m/uL (3.80-5.40); RDW 13.4 % (11.5-15.5); WBC 7.5 k/uL (3.8-10.6)
[2018-03-11] MEDS: HYDROcodone/APAP 7.5-325MG 1 EACH TAB PO PRN (15:08)
--- NOTE | 2018-03-11 16:29 | P.PN ---
Progress Note - Text Progress Note Date: 03/11/18 The patient is resting comfortably bed. She's had flatus and small bowel movements. She still has complaints of incisional pain. On exam her vital signs are stable. Her abdomen soft. Status post reversal colostomy. Patient will most likely be discharged home the next 24-48 hours.
[2018-03-11] MEDS: LACTATED RINGERS 1,000 ML IV SCH (16:39)
--- NOTE | 2018-03-11 19:54 | PN ---
PROGRESS NOTE DATE OF SERVICE: 03/11/2018 PRESENTING COMPLAINT: Reversal of colostomy. INTERVAL HISTORY: The patient is status post reversal of colostomy, doing better. Some pain is present. Has been out of bed. Did have a bowel movement this morning. No nausea or vomiting. Overall feeling much better. REVIEW OF SYSTEMS: Done for constitutional, cardiovascular, GI, pulmonary; relevant findings as above. CURRENT MEDICATIONS: Reviewed. PHYSICAL EXAMINATION: Temperature 98, pulse 89, respiration 16, blood pressure 117/70, pulse ox 98% on room air. GENERAL APPEARANCE: Sitting up. More comfortable. EYES: Pupils equal. Conjunctivae normal. HEENT: External appearance of nose and ears normal. Oral cavity normal. NECK: JVD not raised. Mass not palpable. RESPIRATORY: Effort normal. Lungs are clear. CARDIOVASCULAR: First and second sounds normal. No edema. ABDOMEN: Soft. Incision V.A.C. in place. PSYCHIATRY: Alert and oriented x3. Mood and affect normal. INVESTIGATIONS: White count 7.5, potassium 4.7, BUN 4, creatinine 0.77. ASSESSMENT: 1. Reversal of colostomy. Patient had a previous left colonic diverticulum. 2. Morbid obesity; body mass index of 40. 3. Intermittent asthma, controlled. 4. Gastroesophageal reflux disease. 5. Anxiety and depression not otherwise specified. 6. Hypothyroidism. The patient's diet has already been advanced. She had a bowel movement. Overall doing much better. Discharge planning as per Dr. Meadows. Care was discussed with the patient. MMODL / IJN: [id number] /
[2018-03-11] MEDS: VENLAFAXINE HCL ER 75 MG CAP PO SCH (20:17)
[2018-03-11] MEDS: NORETHINDRONE E ESTRADIOL IRON PO SCH (20:18)
[2018-03-11] MEDS: traZODone HCL 100 MG TAB PO SCH (20:18)
[2018-03-12] MEDS: HYDROcodone/APAP 7.5-325MG 1 EACH TAB PO PRN (05:26)
[2018-03-12] MEDS: LEVOTHYROXINE 50 MCG TAB PO SCH (05:26)
[2018-03-12] MEDS: Lisdexamfetamine Dimesylate [Vyvanse] 50 MG PO SCH (07:40)
[2018-03-12] MEDS: HEPARIN SODIUM,PORCINE 5,000 UNIT/ML 1 ML VIAL SQ SCH (07:41)
[2018-03-12] MEDS: FAMOTIDINE 20 MG TAB PO SCH ×2 (08:06→20:26)
[2018-03-12] MEDS: TOPIRAMATE 100 MG TAB PO SCH ×2 (08:06→20:26)
[2018-03-12] MEDS: busPIRone HCl 5 MG TAB PO SCH ×2 (08:06→20:26)
[2018-03-12] MEDS: ALVIMOPAN 12 MG CAPSULE PO SCH ×2 (08:06→20:26)
[2018-03-12] MEDS: PREGABALIN 75 MG CAP PO SCH ×2 (08:07→20:26)
[2018-03-12] MEDS: ENOXAPARIN 40 MG/0.4 ML SYRINGE SQ SCH (08:18)
[2018-03-12] MEDS: MULTIVITAMINS, THERA 1 EACH TAB PO SCH (11:52)
--- NOTE | 2018-03-12 13:25 | P.PN ---
Subjective Progress Note Date: 03/12/18 32-year-old female seen this morning on rounds. Patient states she's hungry continues mashed potatoes scrambled eggs. States she's anxious to start eating. Passing gas. Has been up ambulating in the hallway. States pain issues are improving. Abdomen soft surgical dressing sites to March 07 postop reversal of colostomy, repair of incisional hernia Objective - Vital Signs Vital signs: Vital Signs Temp 98.4 F 03/12/18 08:30 Pulse 79 03/12/18 08:30 Resp 16 03/12/18 08:30 BP 93/62 03/12/18 08:30 Pulse Ox 97 03/12/18 08:30 Intake & Output 03/11/18 03/12/18 03/12/18 18:59 06:59 18:59 Intake Total 625 120 275 Balance 625 120 275 Intake: Intake, IV Titration 625 Amount D5-0.45% NaCl with KCl 625 20Meq/l 1,000 ml @ 125 mls/hr IV .Q8H [facility] Rx#: [id number] Oral 120 275 Other: Voiding Method Indwelling Catheter Toilet # Voids 1 - Exam Physical exam 32-year-old female sitting up in bed appears in no acute distress Lungs adequate air movement bilaterally on room air Heart S1-S2 audible regular Abdomen obese soft nontender surgical dressing site dry with a prevena will system in place states is not passing gas no nausea no vomiting tolerating clear liquids nondistended Extremities Venodyne's on bilaterally no edema - Labs CBC & Chem 7: 03/11/18 08:39 03/11/18 08:39 Assessment and Plan Assessment: Impression Postop March 07 reversal of colostomy and repair of incisional hernia History of a perforated diverticulitis Depressive anxiety disorder Chronic lower back pain opiate dependent Obesity BMI 41 History of a Santana's procedure with sigmoid colectomy with colostomy for perforated diverticulitis in December 2017 Reversal of colostomy repair of incisional hernia done for perforated diverticulitis March 07 Plan Continue postop surgical care Pain control Advance diet Anticipate discharge in Increase activity Encourage use of incentive spirometer DVT and GI prophylaxis The above impression and plan of care have been discussed and directed by signing physician. Brisa Whitman nurse practitioner acting as scribe for signing physician.
[2018-03-12] MEDS: traZODone HCL 100 MG TAB PO SCH (20:27)
[2018-03-12] MEDS: VENLAFAXINE HCL ER 75 MG CAP PO SCH (20:27)
[2018-03-12] MEDS: NORETHINDRONE E ESTRADIOL IRON PO SCH (20:35)
--- NOTE | 2018-03-12 20:46 | PN ---
PROGRESS NOTE DATE OF SERVICE: 03/12/2018 PRESENTING COMPLAINT: Reversal of colostomy. INTERVAL HISTORY: This patient is status post reversal of colostomy. Had another bowel movement today. Did take a lap outside in the hallway. Abdominal pain is much better. No nausea or vomiting. Tolerating a liquid diet. REVIEW OF SYSTEMS: Done for constitutional, cardiovascular, GI, pulmonary; relevant findings as above. CURRENT MEDICATIONS: Reviewed. PHYSICAL EXAMINATION: Temperature 98.8, pulse 80, respiration 16, blood pressure 109/74, pulse ox 98% on room air. GENERAL APPEARANCE: Sitting up, comfortable. EYES: Pupils equal. Conjunctivae normal. HEENT: External appearance of nose and ears normal. Oral cavity normal. NECK: JVD not raised. Mass not palpable. RESPIRATORY: Effort normal. Lungs are clear. CARDIOVASCULAR: First and second sounds normal. No edema. ABDOMEN: Soft. Incision V.A.C. in place. Minimal tenderness. PSYCHIATRY: Alert and oriented x3. Mood and affect normal. INVESTIGATIONS: No blood work from today. ASSESSMENT: 1. Reversal of colostomy. Patient had a previous left colonic diverticulum. 2. Morbid obesity; body mass index 40. 3. Intermittent asthma, controlled. 4. Gastroesophageal reflux disease. 5. Anxiety, depression not otherwise specified. 6. Hypothyroidism. PLAN: Patient is doing rather well. Continue current medication and treatment plan. If discharged, should follow up with the family doctor. MMODL / IJN: [id number] /
[2018-03-13 01:29] VITALS: PULSE 79
[2018-03-13] MEDS: LEVOTHYROXINE 50 MCG TAB PO SCH (05:18)
[2018-03-13] MEDS: HYDROcodone/APAP 7.5-325MG 1 EACH TAB PO PRN (05:18)
[2018-03-13] MEDS: Lisdexamfetamine Dimesylate [Vyvanse] 50 MG PO SCH (08:22)
[2018-03-13 08:26] VITALS: BP 110/66; RESP 16; TEMP 98.6
[2018-03-13] MEDS: ALVIMOPAN 12 MG CAPSULE PO SCH (08:26)
[2018-03-13] MEDS: TOPIRAMATE 100 MG TAB PO SCH (08:26)
[2018-03-13] MEDS: PREGABALIN 75 MG CAP PO SCH (08:26)
[2018-03-13] MEDS: busPIRone HCl 5 MG TAB PO SCH (08:26)
[2018-03-13] MEDS: FAMOTIDINE 20 MG TAB PO SCH (08:27)
[2018-03-13] MEDS: ENOXAPARIN 40 MG/0.4 ML SYRINGE SQ SCH (08:27)
--- NOTE | 2018-03-13 12:02 | P.DS ---
Providers Date of admission: 03/07/18 07:30 Expected date of discharge: 03/13/18 Attending physician: Brayan Dubon Consults: 03/07/18 11:31 Consult Physician Routine Consulting Provider: Malick Fontenot Consult Reason/Comments: Medical management Do you want consulting provider notified?: Yes Primary care physician: [facility] Course: 32-year-old presented for reversal of colostomy. Has a history of a perforated diverticulitis. 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 Brisa Whitman nurse practitioner acting as scribe for signing physician. Plan - Discharge Summary Discharge Rx Participant: No New Discharge Prescriptions: Continue Levothyroxine Sodium [Synthroid] 50 mcg PO DAILY traZODone HCL [Desyrel] 100 mg PO HS Norethindrone-E.estradiol-Iron [Loestrin Fe 1.5-30 Tablet] 1 tab PO HS busPIRone HCL 15 mg PO BID Pregabalin [Lyrica] 75 mg PO QAM Albuterol Inhaler [Ventolin Hfa Inhaler] 2 puff INHALATION RT-Q6H PRN PRN Reason: Shortness Of Breath Meloxicam [Mobic] 15 mg PO DAILY Lisdexamfetamine Dimesylate [Vyvanse] 50 mg PO QAM Venlafaxine HCl [Effexor XR] 225 mg PO HS Famotidine [Pepcid] 20 mg PO BID Topiramate [Trokendi Xr] 200 mg PO DAILY Butalb/Acetaminophen/Caffeine [Fioricet 50-300-40 mg Capsule] 1 cap PO Q4HR PRN PRN Reason: Migraine Headache Pregabalin [Lyrica] 150 mg PO HS Methocarbamol [Robaxin-750] 750 mg PO TID PRN PRN Reason: Muscle Spasm Ondansetron Odt [Zofran ODT] 8 mg PO Q8HR PRN PRN Reason: Nausea HYDROcodone/APAP 7.5-325MG [[place] 7.5-325] 1 tab PO TID Wheat Dextrin [Benefiber] 1 pack PO DAILY Multivitamins, Thera [Multivitamin (formulary)] 1 tab PO DAILY Discharge Medication List Levothyroxine Sodium [Synthroid] 50 mcg PO DAILY 05/05/14 [History] traZODone HCL [Desyrel] 100 mg PO HS 04/04/15 [History] Norethindrone-E.estradiol-Iron [Loestrin Fe 1.5-30 Tablet] 1 tab PO HS 05/01/16 [History] Pregabalin [Lyrica] 75 mg PO QAM 05/01/16 [History] busPIRone HCL 15 mg PO BID 05/01/16 [History] Albuterol Inhaler [Ventolin Hfa Inhaler] 2 puff INHALATION RT-Q6H PRN 05/23/16 [ History] Meloxicam [Mobic] 15 mg PO DAILY 12/31/16 [History] Lisdexamfetamine Dimesylate [Vyvanse] 50 mg PO QAM 06/20/17 [History] Famotidine [Pepcid] 20 mg PO BID 07/19/17 [History] Topiramate [Trokendi Xr] 200 mg PO DAILY 07/19/17 [History] Venlafaxine HCl [Effexor XR] 225 mg PO HS 07/19/17 [History] Butalb/Acetaminophen/Caffeine [Fioricet 50-300-40 mg Capsule] 1 cap PO Q4HR PRN 08/28/17 [History] Pregabalin [Lyrica] 150 mg PO HS 11/07/17 [History] Methocarbamol [Robaxin-750] 750 mg PO TID PRN 11/16/17 [History] Ondansetron Odt [Zofran ODT] 8 mg PO Q8HR PRN 12/19/17 [History] HYDROcodone/APAP 7.5-325MG [[place] 7.5-325] 1 tab PO TID 03/01/18 [History] Multivitamins, Thera [Multivitamin (formulary)] 1 tab PO DAILY 03/01/18 [History ] Wheat Dextrin [Benefiber] 1 pack PO DAILY 03/01/18 [History] Follow up Appointment(s)/Referral(s): Brayan Dubon MD [STAFF PHYSICIAN] - 1 Week Activity/Diet/Wound Care/Special Instructions: No tub bath for six weeks. Shower daily. No lifting over 10 pounds for the next 2 weeks. prevena system to be removed in Dr. dubon office May use ice packs to surgical site. No driving while taking narcotic for pain. Discharge Disposition: HOME SELF-CARE
[2018-03-13] MEDS: MULTIVITAMINS, THERA 1 EACH TAB PO SCH (12:31)
--- NOTE | 2018-03-13 23:56 | PN ---
PROGRESS NOTE DATE OF SERVICE: 03/13/2018 PRESENTING COMPLAINT: Reversal of colostomy. INTERVAL HISTORY: Patient is status post colostomy reversal, doing well, up and about. Had a bowel movement. Pain is well controlled. No new issues. Looking forward to going home. REVIEW OF SYSTEMS: Done for constitutional, cardiovascular, GI, pulmonary; relevant findings as above. CURRENT MEDICATIONS: Reviewed. PHYSICAL EXAMINATION: Temperature 98.6, pulse 79, respiration 16, blood pressure 110/76, pulse ox 97% on room air. GENERAL APPEARANCE: Sitting up. Comfortable. EYES: Pupils equal. Conjunctivae normal. HEENT: External appearance of nose and ears normal. Oral cavity normal. NECK: JVD not raised. Mass not palpable. RESPIRATORY: Effort normal. Lungs are clear. CARDIOVASCULAR: First and second sounds normal. No edema. ABDOMEN: Soft. Incision V.A.C. in place. Minimal tenderness. PSYCHIATRY: Alert and oriented x3. Mood and affect normal. INVESTIGATIONS: No blood work from today. ASSESSMENT: 1. Reversal of colostomy in a patient who had previous colonic diverticulum rupture. 2. Morbid obesity with body mass index of 40. 3. Intermittent asthma, controlled. 4. Gastroesophageal reflux disease. 5. Anxiety, depression not otherwise specified. 6. Hypothyroidism. PLAN: Care was discussed. Stable. She should also follow up with the family doctor. Thank you, Dr. Meadows. MMLORENEL / CHRISTIANN: [phone] /
== END 2018-03-13 14:38 | disposition home or self-care (01) | DRG 330 ==
LOC: 2ORMAIN 07:57 → UNDOADMIN 07:57 → 2ORMAIN 03-07 07:30 → 4SSUR 03-07 12:21
PROVIDERS: ADMIT Surgery; ATTEND Surgery
PROC: 0DQN0ZZ Repair Sigmoid Colon, Open Approach (ICD-10-PCS; principal; 2018-03-07 09:20)
PROC: 0WQF0ZZ Repair Abdominal Wall, Open Approach (ICD-10-PCS; principal; 2018-03-07 09:20)
DX: Z43.3 Encounter for attention to colostomy (principal); Z68.41 Body mass index [BMI] 40.0-44.9, adult; F11.20 Opioid dependence, uncomplicated; E66.01 Morbid (severe) obesity due to excess calories; K43.2 Incisional hernia without obstruction or gangrene; K57.30 Diverticulosis of large intestine without perforation or abscess without bleeding; J45.20 Mild intermittent asthma, uncomplicated; M79.7 Fibromyalgia; K58.9 Irritable bowel syndrome, unspecified; K21.9 Gastro-esophageal reflux disease without esophagitis; G47.30 Sleep apnea, unspecified; F41.9 Anxiety disorder, unspecified; E03.9 Hypothyroidism, unspecified; G89.29 Other chronic pain; F31.9 Bipolar disorder, unspecified; G43.909 Migraine, unspecified, not intractable, without status migrainosus; M54.5 Low back pain; F90.9 Attention-deficit hyperactivity disorder, unspecified type; Z82.5 Family history of asthma and other chronic lower respiratory diseases; Z81.8 Family history of other mental and behavioral disorders; Z79.1 Long term (current) use of non-steroidal anti-inflammatories (NSAID); Z79.890 Hormone replacement therapy; Z79.899 Other long term (current) drug therapy; Z88.5 Allergy status to narcotic agent; Z88.8 Allergy status to other drugs, medicaments and biological substances
CPT/HCPCS: 80048; 80051; 80053; 81025; 85025; 86850; 86900; 86901; 94760

== ENCOUNTER 2018-03-06 08:02 | Day surgery (SDC) | payer OTHER ==
[2018-03-01 11:40] VITALS: BMI 41.1
[~2018-03-06 08:02] MED LIST changes: +LIDOCAINE 1% 20 ML VIAL (10MG/ML) FOR IV START INTRADERMA PRN
[2018-03-06 08:45] VITALS: TEMP 98.4
[2018-03-06] MEDS ORDERED: PROPOFOL 10 MG/ML 20 ML VIAL IV ONE (08:53)
--- NOTE | 2018-03-06 08:59 | P.GSHP ---
History of Present Illness H&P Date: 03/06/18 Chief Complaint: history of perforated diverticulitis this is a 32-year-old female who presents today for colonoscopy. Patient has previous history of perforated diverticulitis. She presents today for colonoscopy. She is undergoing reversal of colostomy tomorrow. Past Medical History Past Medical History: Asthma, Fibromyalgia, GERD/Reflux, Memory Impairment, Musculoskeletal Disorder, Sleep Apnea/CPAP/BIPAP, Thyroid Disorder Additional Past Medical History / Comment(s): Hx migraines, degenerative disc, IBS, and no CPAP used, colostomy. History of Any Multi-Drug Resistant Organisms: None Reported Past Surgical History: Bowel Resection Additional Past Surgical History / Comment(s): Dental, Rt Breast biopsy. Past Anesthesia/Blood Transfusion Reactions: No Reported Reaction Smoking Status: Never smoker - Past Family History Mother History Unknown: Yes Family Medical History: COPD Additional Family Medical History / Comment(s): depression, anxiety Medications and Allergies Home Medications Medication Instructions Recorded Confirmed Type Levothyroxine Sodium [Synthroid] 50 mcg PO DAILY 05/05/14 03/06/18 History traZODone HCL [Desyrel] 100 mg PO HS 04/04/15 03/06/18 History Norethindrone-E.estradiol-Iron 1 tab PO HS 05/01/16 03/06/18 History [Loestrin Fe 1.5-30 Tablet] Pregabalin [Lyrica] 75 mg PO QAM 05/01/16 03/06/18 History busPIRone HCL 15 mg PO BID 05/01/16 03/06/18 History Albuterol Inhaler [Ventolin Hfa 2 puff INHALATION RT-Q6H PRN 05/23/16 03/01/18 History Inhaler] Meloxicam [Mobic] 15 mg PO DAILY 12/31/16 03/01/18 History Lisdexamfetamine Dimesylate 50 mg PO QAM 06/20/17 03/06/18 History [Vyvanse] Famotidine [Pepcid] 20 mg PO BID 07/19/17 03/06/18 History Topiramate [Trokendi Xr] 200 mg PO DAILY 07/19/17 03/06/18 History Venlafaxine HCl [Effexor XR] 225 mg PO HS 07/19/17 03/06/18 History Butalb/Acetaminophen/Caffeine 1 cap PO Q4HR PRN 08/28/17 03/01/18 History [Fioricet 50-300-40 mg Capsule] Pregabalin [Lyrica] 150 mg PO HS 11/07/17 03/06/18 History Methocarbamol [Robaxin-750] 750 mg PO TID PRN 11/16/17 03/01/18 History Ondansetron Odt [Zofran ODT] 8 mg PO Q8HR PRN 12/19/17 03/06/18 History HYDROcodone/APAP 7.5-325MG [[place] 1 tab PO TID 03/01/18 03/01/18 History 7.5-325] Multivitamins, Thera [Multivitamin 1 tab PO DAILY 03/01/18 03/06/18 History (formulary)] Wheat Dextrin [Benefiber] 1 each PO DAILY 03/01/18 03/06/18 History Allergies Allergy/AdvReac Type Severity Reaction Status Date / Time tramadol Allergy Hallucinati Verified 03/01/18 11:28 ons valacyclovir HCl AdvReac BLURRED Verified 03/01/18 11:28 [From Valtrex] [facility] - Exam Vital Signs Temp Pulse Resp BP Pulse Ox 98.4 F 66 16 106/60 96 03/06/18 08:44 03/06/18 08:44 03/06/18 08:44 03/06/18 08:44 03/06/18 08:44 - General well developed, no distress - Eyes PERRL - ENT normal pinna - Neck no masses - Respiratory normal expansion - Cardiovascular Rhythm: regular - Abdomen colostomy in left lower quadrant Abdomen: soft, non tender Assessment and Plan Assessment: history of perforated diverticula is. We'll perform colonoscopy.
[2018-03-06 09:27] VITALS: BP 102/71; RESP 16
[2018-03-06] MEDS ORDERED: NA PHOS,M-B/NA PHOS,DI-BA 133 ML ENEMA RECTAL ONE (09:31)
--- NOTE | 2018-03-06 09:31 | P.OP ---
Date of Procedure: 03/06/18 Preoperative Diagnosis: diverticulitis Postoperative Diagnosis: mild diverticulosis Procedure(s) Performed: colonoscopy Anesthesia: MAC Surgeon: Brayan Meadows Pathology: none sent Condition: stable Disposition: PACU Description of Procedure: the patient's placed on the endoscopy table lateral position. Digital rectal exam was performed which revealed stool in the rectal vault. The flexible colonoscope was then placed patient anus and passed through the rectum. The rectal stump measured approximately 20 cm in length. Scope was then withdrawn. Next the scope was then placed the patient's colostomy passed rotator colon. The ileocecal valve sutures. The cecum, ascending and transverse colon appeared normal. In the descending colon there was a few scattered diverticula. Scope was then withdrawn for patient.
[2018-03-06 09:42] VITALS: PULSE 54
== END 2018-03-06 10:20 | disposition home or self-care (01) ==
LOC: ORWHC2ENDO 08:02
PROVIDERS: ATTEND Surgery
DX: K57.90 Diverticulosis of intestine, part unspecified, without perforation or abscess without bleeding (principal); K21.9 Gastro-esophageal reflux disease without esophagitis; J45.909 Unspecified asthma, uncomplicated; M79.7 Fibromyalgia; E07.9 Disorder of thyroid, unspecified; G47.33 Obstructive sleep apnea (adult) (pediatric); R41.3 Other amnesia; G43.909 Migraine, unspecified, not intractable, without status migrainosus; Z79.3 Long term (current) use of hormonal contraceptives; Z79.890 Hormone replacement therapy; Z79.1 Long term (current) use of non-steroidal anti-inflammatories (NSAID); Z79.891 Long term (current) use of opiate analgesic; Z79.899 Other long term (current) drug therapy; Z88.5 Allergy status to narcotic agent; Z88.8 Allergy status to other drugs, medicaments and biological substances
CPT/HCPCS: 81025; 44388; J2704; 44389; 45378

== ENCOUNTER 2018-03-15 10:44 | Emergency (ER) | payer OTHER ==
[2018-03-15 11:40] VITALS: RESP 18
--- NOTE | 2018-03-15 12:29 | ED ---
Recheck HPI - General Chief Complaint: Recheck/Abnormal Lab/Rx Stated Complaint: post op incision problems Time Seen by Provider: 03/15/18 11:46 Source: patient, RN notes reviewed Mode of arrival: ambulatory Limitations: no limitations - History of Present Illness Initial Comments: 32-year-old female presents emergency Department chief complaint bleeding from incision site. Patient states that she had a reversal of her colostomy one week ago. Patient states that she follow-up in office yesterday and was told to remove her wound VAC once the battery life ran out. Patient states it wraps morning in the removed and she noticed some bruising from the site of her colostomy where has closed. Patient states that she is mildly tender but states it does not worsen with bending. She states that she tried some pressure. She walks she has some drainage she states it's been bloody tinged clear fluid. - Related Data Home Medications Medication Instructions Recorded Confirmed Levothyroxine Sodium [Synthroid] 50 mcg PO DAILY 05/05/14 03/15/18 traZODone HCL [Desyrel] 100 mg PO HS 04/04/15 03/15/18 Norethindrone-E.estradiol-Iron 1 tab PO HS 05/01/16 03/15/18 [Loestrin Fe 1.5-30 Tablet] Pregabalin [Lyrica] 75 mg PO QAM 05/01/16 03/15/18 busPIRone HCL 15 mg PO BID 05/01/16 03/15/18 Albuterol Inhaler [Ventolin Hfa 2 puff INHALATION RT-Q6H PRN 05/23/16 03/15/18 Inhaler] Meloxicam [Mobic] 15 mg PO DAILY 12/31/16 03/15/18 Lisdexamfetamine Dimesylate 50 mg PO QAM 06/20/17 03/15/18 [Vyvanse] Famotidine [Pepcid] 20 mg PO BID 07/19/17 03/15/18 Topiramate [Trokendi Xr] 200 mg PO DAILY 07/19/17 03/15/18 Venlafaxine HCl [Effexor XR] 225 mg PO HS 07/19/17 03/15/18 Butalb/Acetaminophen/Caffeine 1 cap PO Q4HR PRN 08/28/17 03/15/18 [Fioricet 50-300-40 mg Capsule] Pregabalin [Lyrica] 150 mg PO HS 11/07/17 03/15/18 Methocarbamol [Robaxin-750] 750 mg PO TID PRN 11/16/17 03/15/18 Ondansetron Odt [Zofran ODT] 8 mg PO Q8HR PRN 12/19/17 03/15/18 HYDROcodone/APAP 7.5-325MG [[place] 1 tab PO TID 03/01/18 03/15/18 7.5-325] Multivitamins, Thera [Multivitamin 1 tab PO DAILY 03/01/18 03/15/18 (formulary)] Allergies Allergy/AdvReac Type Severity Reaction Status Date / Time tramadol Allergy Hallucinati Verified 03/15/18 11:40 ons valacyclovir HCl AdvReac BLURRED Verified 03/15/18 11:40 [From Valtrex] VISION Review of Systems ROS Statement: Those systems with pertinent positive or pertinent negative responses have been documented in the HPI. ROS Other: All systems not noted in ROS Statement are negative. Past Medical History Past Medical History: Asthma, Fibromyalgia, GERD/Reflux, Memory Impairment, Musculoskeletal Disorder, Sleep Apnea/CPAP/BIPAP, Thyroid Disorder Additional Past Medical History / Comment(s): Hx migraines, degenerative disc, IBS, and no CPAP used, colostomy. History of Any Multi-Drug Resistant Organisms: None Reported Past Surgical History: Bowel Resection Additional Past Surgical History / Comment(s): Dental, Rt Breast biopsy. colostomy and reversal Past Anesthesia/Blood Transfusion Reactions: No Reported Reaction Past Psychological History: ADD/ADHD, Anxiety, Bipolar, Depression Smoking Status: Never smoker Past Alcohol Use History: Rare Past Drug Use History: None Reported - Past Family History Mother History Unknown: Yes Family Medical History: COPD Additional Family Medical History / Comment(s): depression, anxiety Brother(s) Family Medical History: Diabetes Mellitus General Exam Limitations: no limitations General appearance: alert, in no apparent distress Head exam: Present: atraumatic, normocephalic, normal inspection Respiratory exam: Present: normal lung sounds bilaterally. Absent: respiratory distress, wheezes, rales, rhonchi, stridor Cardiovascular Exam: Present: regular rate, normal rhythm, normal heart sounds. Absent: systolic murmur, diastolic murmur, rubs, gallop, clicks GI/Abdominal exam: Present: soft, normal bowel sounds, other (Midline vertical incision noted along with a horizontal incision on the left with quan in place there is no active drainage there is a bandage over with old blood noted.) . Absent: distended, tenderness, guarding, rebound, rigid Back exam: Absent: CVA tenderness (R), CVA tenderness (L) Skin exam: Present: warm, dry, intact, normal color. Absent: rash Course Vital Signs 03/15/18 11:35 Temperature 98.3 F Pulse Rate 73 Respiratory 18 Rate Blood Pressure 113/76 O2 Sat by Pulse 98 Oximetry Procedures - Procedures Initial comment: Steri-Strips applied over incision Medical Decision Making - Medical Decision Making 32-year-old female presented from for leaking from her wound. Patient most likely had underlying seroma. Patient is Steri-Strips applied no recurrent bleeding. Patient will be discharged. Return parameters were discussed. Disposition Clinical Impression: Seroma after procedure, Postoperative bleeding from incision Disposition: HOME SELF-CARE Condition: Stable Instructions: Seroma (DC) Additional Instructions: Please return to the Emergency Department if symptoms worsen or any other concerns. Is patient prescribed a controlled substance at d/c from ED?: No Referrals: Edgardo Imnan MD [Primary Care Provider] - 1-2 days
[2018-03-15 13:21] VITALS: BP 125/85; PULSE 77; TEMP 98.2
== END 2018-03-15 13:20 | disposition home or self-care (01) ==
LOC: EC 10:44
DX: K91.872 Postprocedural seroma of a digestive system organ or structure following a digestive system procedure (principal); K91.840 Postprocedural hemorrhage of a digestive system organ or structure following a digestive system procedure; M79.7 Fibromyalgia; J45.909 Unspecified asthma, uncomplicated; K21.9 Gastro-esophageal reflux disease without esophagitis; Z79.3 Long term (current) use of hormonal contraceptives; E07.9 Disorder of thyroid, unspecified; K58.9 Irritable bowel syndrome, unspecified; F31.9 Bipolar disorder, unspecified; F41.9 Anxiety disorder, unspecified; F90.9 Attention-deficit hyperactivity disorder, unspecified type; Z79.1 Long term (current) use of non-steroidal anti-inflammatories (NSAID); G43.909 Migraine, unspecified, not intractable, without status migrainosus; Z79.899 Other long term (current) drug therapy; Z88.5 Allergy status to narcotic agent; Z88.8 Allergy status to other drugs, medicaments and biological substances; Z93.3 Colostomy status
CPT/HCPCS: 99283

== ENCOUNTER 2018-04-19 21:16 | Emergency (ER) | payer OTHER ==
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
[2018-04-19] MEDS ORDERED: KETOROLAC 30 MG/ML 1 ML VIAL IM STA (23:13)
[2018-04-19] MEDS ORDERED: ONDANSETRON ODT 4 MG TAB PO STA (23:13)
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
[2018-04-19 23:43] VITALS: BP 112/72; PULSE 72; RESP 18; TEMP 98.2
== END 2018-04-19 23:42 | disposition home or self-care (01) ==
LOC: EC 21:16
DX: M54.2 Cervicalgia (principal); R51 Headache; J45.909 Unspecified asthma, uncomplicated; M79.7 Fibromyalgia; K21.9 Gastro-esophageal reflux disease without esophagitis; E07.9 Disorder of thyroid, unspecified; F41.9 Anxiety disorder, unspecified; F32.9 Major depressive disorder, single episode, unspecified; F90.9 Attention-deficit hyperactivity disorder, unspecified type; G47.30 Sleep apnea, unspecified; Z99.89 Dependence on other enabling machines and devices; Z87.39 Personal history of other diseases of the musculoskeletal system and connective tissue; Z79.3 Long term (current) use of hormonal contraceptives; Z79.1 Long term (current) use of non-steroidal anti-inflammatories (NSAID); Z79.891 Long term (current) use of opiate analgesic; Z79.899 Other long term (current) drug therapy; Z88.6 Allergy status to analgesic agent; Z88.8 Allergy status to other drugs, medicaments and biological substances
CPT/HCPCS: 72125; 70450; 99283; 96372; J1885

== ENCOUNTER 2018-05-22 19:24 | Emergency (ER) | payer OTHER ==
[2018-05-22 19:40] VITALS: RESP 16
[2018-05-22] MEDS ORDERED: LIDOCAINE 1% INJ 10MG/ML (20 ML MDV) SQ ONE (20:15)
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
[2018-05-22] MEDS ORDERED: TOPICAL SKIN ADHESIVE 1 EACH AMP TOPICAL ONE (21:06)
[2018-05-22] MEDS ORDERED: KETOROLAC 60 MG/2 ML VIAL IM STA (21:07)
--- NOTE | 2018-05-22 21:45 | ED ---
Wound/Laceration HPI - General Chief Complaint: Wound/Laceration Stated Complaint: Hand laceration Source: patient Limitations: no limitations - History of Present Illness Initial Comments: 33-year-old female past medical history of chronic migraines presents today for chief complaint of left hand laceration. Patient states that she had a headache since she woke up this morning, she denies this being the worst headache of her life, she states this is her typical migraine that she experiences occasionally. Patient denies any associated symptoms including photophobia, nausea, vomiting, dizziness. Patient states that she was washing the dishes when she dropped a knife on her left palmar surface of her thumb. She states there was a cut that was bleeding and presented emergency department for evaluation. Patient states she dropped the knife because it slipped. Patient denies it being because of changes in characteristic of her headache as described in triage note. Remainder of ROS negative, patient denies any recent fever, chills, shortness of breath, chest pain, back pain, abdominal pain, nausea or vomiting, numbness or tingling, dysuria or hematuria, constipation or diarrhea, headaches or visual changes, or any other complaints. Patient appears well upon arrival, no active bleeding. Patient states tetanus was updated within last 5 years. Patient denies any numbness, tingling or loss sensation or decreased range of motion of the left thumb. - Related Data Home Medications Medication Instructions Recorded Confirmed Levothyroxine Sodium [Synthroid] 50 mcg PO DAILY 05/05/14 04/19/18 traZODone HCL [Desyrel] 100 mg PO HS 04/04/15 04/19/18 Norethindrone-E.estradiol-Iron 1 tab PO HS 05/01/16 04/19/18 [Loestrin Fe 1.5-30 Tablet] Pregabalin [Lyrica] 75 mg PO QAM 05/01/16 04/19/18 busPIRone HCL 15 mg PO BID 05/01/16 04/19/18 Albuterol Inhaler [Ventolin Hfa 2 puff INHALATION RT-Q6H PRN 05/23/16 04/19/18 Inhaler] Meloxicam [Mobic] 15 mg PO DAILY 12/31/16 04/19/18 Lisdexamfetamine Dimesylate 50 mg PO QAM 06/20/17 04/19/18 [Vyvanse] Famotidine [Pepcid] 20 mg PO BID 07/19/17 04/19/18 Topiramate [Trokendi Xr] 200 mg PO DAILY 07/19/17 04/19/18 Venlafaxine HCl [Effexor XR] 225 mg PO HS 07/19/17 04/19/18 Butalb/Acetaminophen/Caffeine 1 cap PO Q4HR PRN 08/28/17 04/19/18 [Fioricet 50-300-40 mg Capsule] Pregabalin [Lyrica] 150 mg PO HS 11/07/17 04/19/18 Methocarbamol [Robaxin-750] 750 mg PO TID PRN 11/16/17 04/19/18 Ondansetron Odt [Zofran ODT] 8 mg PO Q8HR PRN 12/19/17 04/19/18 HYDROcodone/APAP 7.5-325MG [[place] 1 tab PO TID 03/01/18 04/19/18 7.5-325] Multivitamins, Thera [Multivitamin 1 tab PO DAILY 03/01/18 04/19/18 (formulary)] Allergies Allergy/AdvReac Type Severity Reaction Status Date / Time tramadol Allergy Hallucinati Verified 04/19/18 21:40 ons valacyclovir HCl AdvReac BLURRED Verified 04/19/18 21:40 [From Valtrex] VISION Review of Systems ROS Statement: Those systems with pertinent positive or pertinent negative responses have been documented in the HPI. ROS Other: All systems not noted in ROS Statement are negative. Past Medical History Past Medical History: Asthma, Fibromyalgia, GERD/Reflux, Memory Impairment, Musculoskeletal Disorder, Sleep Apnea/CPAP/BIPAP, Thyroid Disorder Additional Past Medical History / Comment(s): Hx migraines, degenerative disc, IBS, and no CPAP used, colostomy. History of Any Multi-Drug Resistant Organisms: None Reported Past Surgical History: Bowel Resection Additional Past Surgical History / Comment(s): Dental, Rt Breast biopsy. colostomy and reversal Past Anesthesia/Blood Transfusion Reactions: No Reported Reaction Past Psychological History: ADD/ADHD, Anxiety, Bipolar, Depression Smoking Status: Never smoker Past Alcohol Use History: Rare Past Drug Use History: None Reported - Past Family History Mother History Unknown: Yes Family Medical History: COPD Additional Family Medical History / Comment(s): depression, anxiety Brother(s) Family Medical History: Diabetes Mellitus General Exam - General Exam Comments Initial Comments: General: The patient is awake and alert, in no distress, and does not appear acutely ill. Eye: Pupils are equal, round and reactive to light, extra-ocular movements are intact. No nystagmus. There is normal conjunctiva bilaterally. No signs of icterus. Ears, nose, mouth and throat: There are moist mucous membranes and no oral lesions. Neck: The neck is supple, there is no tenderness or JVD. Cardiovascular: There is a regular rate and rhythm. No murmur, rub or gallop is appreciated. Respiratory: Lungs are clear to auscultation, respirations are non-labored, breath sounds are equal. No wheezes, stridor, rales, or rhonchi. Musculoskeletal: Normal ROM, no tenderness. Strength 5/5. Sensation intact. Radial pulses equal bilaterally 2+. Neurological: A&O x 3. CN II-XII intact, There are no obvious motor or sensory deficits. Coordination appears grossly intact. Speech is normal. Skin: Skin is warm and dry and no rashes or lesions are noted. Superficial linear laceration over the thenar eminence of the left hand, this does not involve any deeper layers, adipose. No active bleeding 4 cm in length no evidence of penetrating trauma Psychiatric: Cooperative, appropriate mood & affect, normal judgment. Limitations: no limitations Course Vital Signs 05/22/18 05/22/18 19:37 22:10 Temperature 98.2 F Pulse Rate 66 63 Respiratory 16 16 Rate Blood Pressure 141/89 132/83 O2 Sat by Pulse 100 98 Oximetry Medical Decision Making - Medical Decision Making Superficial laceration, no evidence of penetrating injury. X-ray negative. Exofin used after cleansing wound extensively. Patient educated on signs and symptoms of infection. Patient denies any changes in headache, states is typical. Patient given Toradol for management. No focal neurological deficits on exam. Patient tetanus up-to-date. Patient will be discharged with primary care follow-up. Patient discharged stable condition. Well, denied questions. Return prefers discussed. Case discussed with Dr. Cross Disposition Clinical Impression: Superficial laceration of hand, Headache Disposition: HOME SELF-CARE Condition: Good Instructions: Skin Adhesive Care (ED) Additional Instructions: Please use over the counter medication as discussed. Please follow-up with family doctor in the next 2 days. Please return to emergency room if the symptoms increase or worsen or for any other concerns. Is patient prescribed a controlled substance at d/c from ED?: No Referrals: Edgardo Inman MD [Primary Care Provider] - 1-2 days Time of Disposition: 21:44
[2018-05-22 22:11] VITALS: BP 132/83; PULSE 63; TEMP 98.2
== END 2018-05-22 22:12 | disposition home or self-care (01) ==
LOC: EC 19:24
DX: S61.412A Laceration without foreign body of left hand, initial encounter (principal); R51 Headache; J45.909 Unspecified asthma, uncomplicated; M79.7 Fibromyalgia; K21.9 Gastro-esophageal reflux disease without esophagitis; E07.9 Disorder of thyroid, unspecified; K58.9 Irritable bowel syndrome, unspecified; F90.9 Attention-deficit hyperactivity disorder, unspecified type; F41.9 Anxiety disorder, unspecified; F31.9 Bipolar disorder, unspecified; Z86.69 Personal history of other diseases of the nervous system and sense organs; Z93.3 Colostomy status; Z79.1 Long term (current) use of non-steroidal anti-inflammatories (NSAID); Z79.3 Long term (current) use of hormonal contraceptives; Z79.890 Hormone replacement therapy; Z79.891 Long term (current) use of opiate analgesic; Z79.899 Other long term (current) drug therapy; Z88.5 Allergy status to narcotic agent; Z88.8 Allergy status to other drugs, medicaments and biological substances; W26.0XXA Contact with knife, initial encounter; Y92.009 Unspecified place in unspecified non-institutional (private) residence as the place of occurrence of the external cause; Y93.G1 Activity, food preparation and clean up
CPT/HCPCS: 73130; 99283; 12002; 96372; J2001; J1885

== ENCOUNTER 2018-08-12 09:05 | Day surgery (SDC) | payer OTHER ==
[2018-08-08 12:36] VITALS: BMI 42.3
[~2018-08-12 09:05] MED LIST changes: +DEXAMETHASONE SOD PHOSPHATE 10 MG/ML 1 ML VIAL IV ONE; +HEPARIN SODIUM,PORCINE 5,000 UNIT/ML 1 ML VIAL SQ ONE; -LIDOCAINE 1% 20 ML VIAL (10MG/ML) FOR IV START INTRADERMA PRN; +MIDAZOLAM (PF) 2 MG/2 ML VIAL IV PRN; +ONDANSETRON 4 MG/2 ML VIAL IVP ONE; +SCOPOLAMINE 1.5MG/72HR PATCH TRANSDERM ONE; +ceFAZolin IN SWFI 2 GM/20 ML SYRINGE IVP ONE
--- NOTE | 2018-08-12 10:03 | P.GSHP ---
History of Present Illness H&P Date: 08/12/18 Chief Complaint: Right upper quadrant pain, cholelithiasis This a 33-year-old female who presents today for laparoscopic cholecystectomy. Patient's had complaints of right quadrant pain. She is worked up found have cholelithiasis. Past Medical History Past Medical History: Asthma, Fibromyalgia, GERD/Reflux, Musculoskeletal Disorder, Skin Disorder, Sleep Apnea/CPAP/BIPAP, Thyroid Disorder Additional Past Medical History / Comment(s): Hx Migraines, DDD , IBS, NO CPAP used. HX PERFORATED DIVERTICULITIS W/ PAST Colostomy 12/2017. HEAT RASH UNDER SKIN FOLDS. GALLBLADDER PROB CURRENTLY. History of Any Multi-Drug Resistant Organisms: None Reported Past Surgical History: Bowel Resection, Breast Surgery Additional Past Surgical History / Comment(s): Dental, Rt Breast biopsy. Colostomy 12/2017, THEN Reversal 02/2018. Past Anesthesia/Blood Transfusion Reactions: No Reported Reaction Smoking Status: Never smoker - Past Family History Mother History Unknown: Yes Family Medical History: COPD Additional Family Medical History / Comment(s): depression, anxiety Brother(s) Family Medical History: Diabetes Mellitus Medications and Allergies Home Medications Medication Instructions Recorded Confirmed Type Levothyroxine Sodium [Synthroid] 50 mcg PO DAILY 05/05/14 08/08/18 History traZODone HCL [Desyrel] 100 mg PO HS 04/04/15 08/08/18 History Norethindrone-E.estradiol-Iron 1 tab PO HS 05/01/16 08/08/18 History [Loestrin Fe 1.5-30 Tablet] Pregabalin [Lyrica] 75 mg PO QAM 05/01/16 08/08/18 History busPIRone HCL 15 mg PO BID 05/01/16 08/08/18 History Albuterol Inhaler [Ventolin Hfa 2 puff INHALATION RT-Q6H PRN 05/23/16 08/08/18 History Inhaler] Meloxicam [Mobic] 15 mg PO DAILY 12/31/16 08/08/18 History Lisdexamfetamine Dimesylate 50 mg PO QAM 06/20/17 08/08/18 History [Vyvanse] Famotidine [Pepcid] 20 mg PO BID 07/19/17 08/08/18 History Topiramate [Trokendi Xr] 200 mg PO DAILY 07/19/17 08/08/18 History Venlafaxine HCl [Effexor XR] 225 mg PO HS 07/19/17 08/08/18 History Butalb/Acetaminophen/Caffeine 1 cap PO Q4HR PRN 08/28/17 08/08/18 History [Fioricet 50-300-40 mg Capsule] Pregabalin [Lyrica] 150 mg PO HS 11/07/17 08/08/18 History Methocarbamol [Robaxin-750] 750 mg PO TID PRN 11/16/17 08/08/18 History Ondansetron Odt [Zofran ODT] 8 mg PO Q8HR PRN 12/19/17 08/08/18 History HYDROcodone/APAP 7.5-325MG [[place] 1 tab PO TID PRN 03/01/18 08/08/18 History 7.5-325] Multivitamins, Thera [Multivitamin 1 tab PO DAILY 03/01/18 08/08/18 History (formulary)] SILVER sulfADIAZINE CREAM 1 applic TOPICAL BID PRN 08/08/18 08/08/18 History [Silvadene Cream] Wheat Dextrin [Benefiber] 1 each PO DAILY 08/08/18 08/08/18 History Allergies Allergy/AdvReac Type Severity Reaction Status Date / Time tramadol Allergy Hallucinati Verified 08/08/18 11:56 ons valacyclovir HCl AdvReac BLURRED Verified 08/08/18 11:56 [From Valtrex] VISION Surgical - Exam Vital Signs Temp Pulse Resp BP Pulse Ox 97.8 F 66 18 103/69 98 08/12/18 09:34 08/12/18 09:34 08/12/18 09:34 08/12/18 09:34 08/12/18 09:34 - General well developed, well nourished, no distress, moderate distress - Eyes PERRL - ENT normal pinna - Neck no masses - Respiratory normal expansion - Cardiovascular Rhythm: regular - Abdomen Abdomen: soft, tender (Mild right quadrant tenderness), surgical scars (Midline surgical scar and colostomy reversal scar) Assessment and Plan Assessment: Chronic: Cholecystitis, cholelithiasis. Patient will undergo laparoscopic cholestatic. Patient aware the risk of conversion to the open procedure secondary to adhesions from her previous perforated diverticulitis.
[2018-08-12] MEDS ORDERED: fentaNYL (PF) 50 MCG/ML 2 ML AMP ONE (10:15)
[2018-08-12] MEDS ORDERED: MIDAZOLAM 2 MG/2 ML VIAL ONE (10:15)
[2018-08-12] MEDS ORDERED: LIDOCAINE 1% INJ 10MG/ML (20 ML MDV) ONE (10:15)
[2018-08-12] MEDS ORDERED: PROPOFOL 10 MG/ML 20 ML VIAL IV ONE (10:15)
[2018-08-12] MEDS ORDERED: ROCURONIUM BROMIDE 10 MG/ML 10 ML VIAL IV ONE (10:15)
[2018-08-12] MEDS ORDERED: SUCCINYLCHOLINE CHLORIDE 100 MG/5 ML SYR IV ONE (10:15)
[2018-08-12] MEDS ORDERED: HYDROmorphone (PF) 1 MG/ML ONE (10:15)
[2018-08-12] MEDS ORDERED: NEOSTIGMINE 1 MG/ML 10 ML VIAL ONE (10:15)
[2018-08-12] MEDS ORDERED: GLYCOPYRROLATE 0.2 MG/ML 2 ML VIAL ONE (10:15)
[2018-08-12] MEDS ORDERED: BUPIVACAIN-EPI 0.5%-1:200,000 30 ML VIAL SQ ONE (10:35)
[2018-08-12] MEDS ORDERED: LACTATED RINGERS 1,000 ML IV ONE (10:54)
--- NOTE | 2018-08-12 11:00 | P.OP ---
Date of Procedure: 08/12/18 Preoperative Diagnosis: Cholecystitis Postoperative Diagnosis: Cholecystitis Procedure(s) Performed: Laparoscopic cholecystectomy Anesthesia: GILL Surgeon: Brayan Meadows Estimated Blood Loss (ml): 5 Pathology: other (Gallbladder) Condition: stable Disposition: PACU Description of Procedure: The patient was placed on the operating table. The patient received a general endotracheal tube anesthesia. The patients abdomen was prepped and draped in the usual sterile fashion. Through an infraumbilical stab incision, the fascia of the anterior abdominal wall was grasped with a pair of Kochers and then the Veress needle was placed in the peritoneal cavity. Position of the Veress needle was confirmed with positive drop test. The abdomen was then insufflated. After adequate insufflation, the 10 mm trocar was placed in the peritoneal cavity. Following this the laparoscope was placed in the peritoneal cavity. The patient was placed in the head-up, right side up position and then a 5 mm trocar was placed in the right lateral and right subcostal position under direct visualization. A 8 mm trocar was placed in the epigastric position. The gallbladder was grasped in the fundus and infundibulum. Traction on the gallbladder was placed in the lateral and the cephalad positions. The triangle of Calot was visualized.. The cystic duct was bluntly dissected until the union of the cystic duct and common bile duct was seen. The cystic duct was then divided and sealed with the Harmonic scissors. A PDS Endoloop was then placed throughout the cystic duct stump. The cystic artery divided and sealed with the Harmonic scissors. The gallbladder was then removed from the liver bed using Harmonic scissors. The gallbladder was then extracted through the epigastric port site. Operative field was checked for any bleeding spots and Harmonic scissors was used to coagulate the liver bed. The abdomen was irrigated. The trocars were removed. The skin was closed using interrupted 3-0 Vicryl suture. Dermabond dressing were applied. The patient tolerated the procedure well.
[2018-08-12 11:17] VITALS: TEMP 97
[2018-08-12] MEDS: HYDROmorphone 0.5 MG/0.5 ML SYRINGE IVP PRN ×2 (11:36→11:51)
[2018-08-12 11:57] VITALS: RESP 16
[2018-08-12 13:18] VITALS: BP 106/60; PULSE 67
== END 2018-08-12 13:46 | disposition home or self-care (01) ==
LOC: OR 09:05
PROVIDERS: ATTEND Surgery
DX: K81.1 Chronic cholecystitis (principal); J45.909 Unspecified asthma, uncomplicated; M79.7 Fibromyalgia; K21.9 Gastro-esophageal reflux disease without esophagitis; E07.9 Disorder of thyroid, unspecified; G47.33 Obstructive sleep apnea (adult) (pediatric); K58.9 Irritable bowel syndrome, unspecified; F32.9 Major depressive disorder, single episode, unspecified; E66.01 Morbid (severe) obesity due to excess calories; Z68.41 Body mass index [BMI] 40.0-44.9, adult; Z87.19 Personal history of other diseases of the digestive system; Z90.49 Acquired absence of other specified parts of digestive tract; Z79.1 Long term (current) use of non-steroidal anti-inflammatories (NSAID); Z79.3 Long term (current) use of hormonal contraceptives; Z79.890 Hormone replacement therapy; Z79.899 Other long term (current) drug therapy; Z88.5 Allergy status to narcotic agent; Z88.8 Allergy status to other drugs, medicaments and biological substances
CPT/HCPCS: 47562; 88304; J2250; J1644; J1100; J2710; J2405; J2001; J3010; J1170 ×2; J0330; J2704; J0690

== ENCOUNTER 2018-09-29 15:48 | Emergency (ER) | payer OTHER ==
[2018-09-29] MEDS ORDERED: ONDANSETRON 4 MG/2 ML VIAL IVP STA (16:31)
[2018-09-29] MEDS ORDERED: KETOROLAC 30 MG/ML 1 ML VIAL IVP STA (16:31)
[2018-09-29] MEDS ORDERED: SODIUM CHLORIDE 0.9% 1,000 ML IV ONE (16:31)
--- NOTE | 2018-09-29 16:33 | ED ---
Abdominal Pain HPI - General Chief Complaint: Abdominal Pain Stated Complaint: ABDOMINAL PAIN Time Seen by Provider: 09/29/18 16:24 Source: patient Mode of arrival: ambulatory Limitations: no limitations - History of Present Illness Initial Comments: Patient is a 33-year-old female with a history of bowel perforation, recent cholecystectomy, fibromyalgia who presents with chief complaint of abdominal pain. His been going on for days. She characterizes crampy nature to her pain. It is aggravated by certain movements and exertion. Alleviating factors. Timing is constant. She denies fevers, chills, or vomiting. She says that she's been slightly nauseated. - Related Data Home Medications Medication Instructions Recorded Confirmed Levothyroxine Sodium [Synthroid] 50 mcg PO DAILY 05/05/14 08/08/18 traZODone HCL [Desyrel] 100 mg PO HS 04/04/15 08/08/18 Norethindrone-E.estradiol-Iron 1 tab PO HS 05/01/16 08/08/18 [Loestrin Fe 1.5-30 Tablet] Pregabalin [Lyrica] 75 mg PO QAM 05/01/16 08/08/18 busPIRone HCL 15 mg PO BID 05/01/16 08/08/18 Albuterol Inhaler [Ventolin Hfa 2 puff INHALATION RT-Q6H PRN 05/23/16 08/08/18 Inhaler] Meloxicam [Mobic] 15 mg PO DAILY 12/31/16 08/08/18 Lisdexamfetamine Dimesylate 50 mg PO QAM 06/20/17 08/08/18 [Vyvanse] Famotidine [Pepcid] 20 mg PO BID 07/19/17 08/08/18 Topiramate [Trokendi Xr] 200 mg PO DAILY 07/19/17 08/08/18 Venlafaxine HCl [Effexor XR] 225 mg PO HS 07/19/17 08/08/18 Butalb/Acetaminophen/Caffeine 1 cap PO Q4HR PRN 08/28/17 08/08/18 [Fioricet 50-300-40 mg Capsule] Pregabalin [Lyrica] 150 mg PO HS 11/07/17 08/08/18 Methocarbamol [Robaxin-750] 750 mg PO TID PRN 11/16/17 08/08/18 Ondansetron Odt [Zofran ODT] 8 mg PO Q8HR PRN 12/19/17 08/08/18 HYDROcodone/APAP 7.5-325MG [[place] 1 tab PO TID PRN 03/01/18 08/08/18 7.5-325] Multivitamins, Thera [Multivitamin 1 tab PO DAILY 03/01/18 08/08/18 (formulary)] SILVER sulfADIAZINE CREAM 1 applic TOPICAL BID PRN 08/08/18 08/08/18 [Silvadene Cream] Wheat Dextrin [Benefiber] 1 each PO DAILY 08/08/18 08/08/18 Allergies Allergy/AdvReac Type Severity Reaction Status Date / Time tramadol Allergy Hallucinati Verified 09/29/18 16:13 ons valacyclovir HCl AdvReac BLURRED Verified 09/29/18 16:13 [From Valtrex] VISION Review of Systems ROS Statement: Those systems with pertinent positive or pertinent negative responses have been documented in the HPI. ROS Other: All systems not noted in ROS Statement are negative. Gastrointestinal: Reports: nausea Past Medical History Past Medical History: Asthma, Fibromyalgia, GERD/Reflux, Musculoskeletal Disorder, Skin Disorder, Sleep Apnea/CPAP/BIPAP, Thyroid Disorder Additional Past Medical History / Comment(s): Hx Migraines, DDD , IBS, NO CPAP used. HX PERFORATED DIVERTICULITIS W/ PAST Colostomy 12/2017. HEAT RASH UNDER SKIN FOLDS. GALLBLADDER PROB CURRENTLY. History of Any Multi-Drug Resistant Organisms: None Reported Past Surgical History: Bowel Resection, Breast Surgery Additional Past Surgical History / Comment(s): Dental, Rt Breast biopsy. Colostomy 12/2017, THEN Reversal 02/2018. Past Anesthesia/Blood Transfusion Reactions: No Reported Reaction Past Psychological History: ADD/ADHD, Anxiety, Bipolar, Depression Smoking Status: Never smoker Past Alcohol Use History: None Reported Past Drug Use History: None Reported - Past Family History Mother History Unknown: Yes Family Medical History: COPD Additional Family Medical History / Comment(s): depression, anxiety Brother(s) Family Medical History: Diabetes Mellitus General Exam Limitations: no limitations General appearance: alert, in no apparent distress Head exam: Present: atraumatic, normocephalic Eye exam: Present: normal appearance ENT exam: Present: normal exam Neck exam: Present: normal inspection Respiratory exam: Present: normal lung sounds bilaterally. Absent: respiratory distress, wheezes Cardiovascular Exam: Present: regular rate, normal rhythm GI/Abdominal exam: Present: soft, tenderness (Patient is tenderness to palpation in the epigastric region and periumbilical region.). Absent: distended Rectal exam: Present: deferred Extremities exam: Present: normal inspection Back exam: Present: normal inspection Neurological exam: Present: alert, oriented X3, normal gait Psychiatric exam: Present: normal affect, normal mood Skin exam: Present: warm, dry, intact Course Vital Signs 09/29/18 09/29/18 16:11 18:30 Temperature 98.4 F Pulse Rate 76 73 Respiratory 18 18 Rate Blood Pressure 115/78 114/66 O2 Sat by Pulse 99 98 Oximetry Medical Decision Making - Medical Decision Making Patient presents with chief complaint abdominal pain. On initial evaluation, vitals are stable, patient is no acute distress. Patient evaluated basic labs including liver profile and lipase, serum test, computed tomography scan of the abdomen and pelvis with IV contrast given recent surgical history. 7:17 PM E evaluation this patient is unremarkable, hCG is negative. Computed tomography scan of the abdomen and pelvis shows post surgical changes however no new acute or life-threatening findings. On reevaluation, patient is feeling improved. She is stable for discharge. She was instructed to follow up with primary care in 1-2 days, return to the ED if symptoms worsen or change. She is prescribed a short course of Bentyl for abdominal pain. - Lab Data Result diagrams: 09/29/18 16:45 09/29/18 16:45 Lab Results 09/29/18 09/29/18 09/29/18 Range/Units 16:45 16:45 16:45 WBC 8.6 (3.8-10.6) k/uL RBC 4.76 (3.80-5.40) m/uL Hgb 13.4 (11.4-16.0) gm/dL Hct 41.5 (34.0-46.0) % MCV 87.2 (80.0-100.0) fL MCH 28.1 (25.0-35.0) pg MCHC 32.3 (31.0-37.0) g/dL RDW 14.7 (11.5-15.5) % Plt Count 324 (150-450) k/uL Neutrophils % 56 % Lymphocytes % 32 % Monocytes % 6 % Eosinophils % 4 % Basophils % 1 % Neutrophils # 4.9 (1.3-7.7) k/uL Lymphocytes # 2.7 (1.0-4.8) k/uL Monocytes # 0.5 (0-1.0) k/uL Eosinophils # 0.3 (0-0.7) k/uL Basophils # 0.1 (0-0.2) k/uL Sodium 141 (137-145) mmol/L Potassium 4.3 (3.5-5.1) mmol/L Chloride 108 H (98-107) mmol/L Carbon Dioxide 27 (22-30) mmol/L Anion Gap 6 mmol/L BUN 13 (7-17) mg/dL Creatinine 0.66 (0.52-1.04) mg/dL Est GFR (CKD-EPI)AfAm >90 (>60 ml/min/1.73 sqM) Est GFR (CKD-EPI)NonAf >90 (>60 ml/min/1.73 sqM) Glucose 79 (74-99) mg/dL Calcium 9.6 (8.4-10.2) mg/dL Total Bilirubin 0.3 (0.2-1.3) mg/dL AST 43 H (14-36) U/L ALT 38 (9-52) U/L Alkaline Phosphatase 70 (38-126) U/L Total Protein 7.2 (6.3-8.2) g/dL Albumin 4.2 (3.5-5.0) g/dL Lipase 133 (23-300) U/L Urine HCG, Qual Not Detected (Not Detectd) Disposition Clinical Impression: Abdominal pain Disposition: HOME SELF-CARE Condition: Good Is patient prescribed a controlled substance at d/c from ED?: No Referrals: Edgardo Inman MD [Primary Care Provider] - 1-2 days
[2018-09-29 16:58] LABS: Basophils # (A) 0.1 k/uL (0-0.2); Basophils % (A) 1 %; Eosinophils # (A) 0.3 k/uL (0-0.7); Eosinophils % (A) 4 %; HCT 41.5 % (34.0-46.0); HGB 13.4 gm/dL (11.4-16.0); Lymphocytes # (A) 2.7 k/uL (1.0-4.8); Lymphocytes % (A) 32 %; MCH 28.1 pg (25.0-35.0); MCHC 32.3 g/dL (31.0-37.0); MCV 87.2 fL (80.0-100.0); Mean Platelet Volume 7.4; Monocytes # (A) 0.5 k/uL (0-1.0); Monocytes % (A) 6 %; Neutrophils # (A) 4.9 k/uL (1.3-7.7); Neutrophils % (A) 56 %; Platelet Count 324 k/uL (150-450); RBC 4.76 m/uL (3.80-5.40); RDW 14.7 % (11.5-15.5); WBC 8.6 k/uL (3.8-10.6)
[2018-09-29 17:10] LABS: ALT 38 U/L (9-52); AST 43 U/L (14-36); Albumin 4.2 g/dL (3.5-5.0); Alkaline Phosphatase 70 U/L (38-126); Anion Gap 6 mmol/L; Blood Urea Nitrogen 13 mg/dL (7-17); Calcium 9.6 mg/dL (8.4-10.2); Carbon Dioxide 27 mmol/L (22-30); Chloride 108 mmol/L (98-107); Glucose 79 mg/dL (74-99); Lipase 133 U/L (23-300); Potassium 4.3 mmol/L (3.5-5.1); Sodium 141 mmol/L (137-145); Total Bilirubin 0.3 mg/dL (0.2-1.3); Total Protein 7.2 g/dL (6.3-8.2)
--- NOTE | 2018-09-29 18:31 | CT ---
EXAMINATION TYPE: CT abdomen pelvis w con DATE OF EXAM: 09/29/2018 COMPARISON: HISTORY: abdominal pain X [address] DLP: 2101.6 mGycm Automated exposure control for dose reduction was used. TECHNIQUE: Helical acquisition of images was performed from the lung bases through the pelvis. CONTRAST: Performed without Oral Contrast and with IV Contrast, patient injected with 100 mL of Isovue 300. FINDINGS: LUNG BASES: No significant abnormality. LIVER/GB: No significant abnormality. The bladder is not well visualized. Metallic density is seen in the gallbladder fossa which may represent a surgical clip. PANCREAS: No significant abnormality. SPLEEN: No significant abnormality. ADRENALS: No significant abnormality. KIDNEYS: No significant abnormality. FREE AIR: None. RETROPERITONEAL ADENOPATHY: None visualized REPRODUCTIVE ORGANS: No significant abnormality is seen URINARY BLADDER: No significant abnormality is seen. PELVIC ADENOPATHY: None visualized. OSSEOUS STRUCTURES: No significant abnormality is seen. BOWEL: Interval partial resection of the sigmoid colon. There is a incisional hernia of the left low er quadrant containing normal-appearing mesenteric fat.. No evidence of diverticulosis. Normal append ix. IMPRESSION: 1. No findings to explain patient's abdominal pain. 2. Interval colon resection.
[2018-09-29] MEDS ORDERED: DICYCLOMINE 20 MG TAB PO STA (19:16)
[2018-09-29 19:35] VITALS: BP 115/52; PULSE 88; RESP 17; TEMP 98.2
== END 2018-09-29 19:31 | disposition home or self-care (01) ==
LOC: EC 15:48
DX: R10.9 Unspecified abdominal pain (principal); R11.0 Nausea; J45.909 Unspecified asthma, uncomplicated; M79.7 Fibromyalgia; K21.9 Gastro-esophageal reflux disease without esophagitis; E07.9 Disorder of thyroid, unspecified; F31.9 Bipolar disorder, unspecified; F41.9 Anxiety disorder, unspecified; F90.9 Attention-deficit hyperactivity disorder, unspecified type; Z88.5 Allergy status to narcotic agent; Z88.8 Allergy status to other drugs, medicaments and biological substances; Z79.1 Long term (current) use of non-steroidal anti-inflammatories (NSAID); Z79.3 Long term (current) use of hormonal contraceptives; Z79.890 Hormone replacement therapy; Z79.899 Other long term (current) drug therapy; Z87.19 Personal history of other diseases of the digestive system; Z86.69 Personal history of other diseases of the nervous system and sense organs; Z87.39 Personal history of other diseases of the musculoskeletal system and connective tissue; Z90.49 Acquired absence of other specified parts of digestive tract; Z93.3 Colostomy status
CPT/HCPCS: 36415; 80053; 83690; 85025; 81025; 74177; 99284; 96374; 96375; 96361 ×2; J2405; J1885; Q9967

== ENCOUNTER → 2018-10-08 | Outpatient (CLI) | payer OTHER ==
--- NOTE | 2018-10-08 20:14 | CONS ---
CONSULTATION REASON FOR CONSULTATION: Feeling sleepy. 33-year-old female patient was referred to me for sleep evaluation. The patient has a binge eating disorder. She is currently obese and her BMI 45.3. She has been recently involved in a bowel perforation during which she had a colectomy and diverting colostomy with subsequent reversal. Following this surgical intervention, the patient also had a cholecystectomy. Overall she has gained around 50 pounds over the past 1 year. She has chronic issues with anxiety and fibromyalgia. As such, she has also developed insomnia over the years and was treated initially with Belsomra with excellent clinical response at a dose of 20 mg p.o. daily. Following that, she had a change in insurance and she was unable to maintain same medication. She was switched to trazodone 100 mg at bedtime. As far as her binge eating disorder, the patient is on Vyvanse 50 mg p.o. daily. She has hypothyroidism on 50 mcg of Synthroid and she takes for headache. She takes BuSpar for chronic anxiety and [place] for pain control. In terms of sleep apnea, there is a suspicion that the patient may have obstructive sleep apnea. She has gained weight because of her eating disorder. At same time, she is feeling excessively fatigued and tired and sleepy and she snores. She goes to bed around 9 p.m., wakes up 7:30 am in the morning. She wakes up around 5 or 6 times in the middle of the night for reasons not clear. She does not sleep well. Does not fall asleep while driving. She does not fall asleep behind the wheel while driving her car. She sleeps on her side. Her current Cla[place]orne score of 12. PAST MEDICAL HISTORY: 1. Binge eating disorder. 2. Hypothyroidism. 3. Chronic anxiety. 4. Fibromyalgia. 5. Insomnia. PAST SURGICAL HISTORY: Includes sigmoid colectomy with colostomy and subsequent reversal back in 2018, cholecystectomy in 2019 and right breast biopsy. DRUG ALLERGIES: TRAMADOL AND VALTREX. OUTPATIENT MEDICATION: List includes Vyvanse 50 mg p.o. daily, Synthroid 50 mcg p.o. daily, XR 200 mg p.o. daily, Mobic 15 mg p.o. daily, Lyrica 75 mg p.o. twice a day, BuSpar 50 mg p.o. b.i.d., [place] 7.5 on a p.r.n. basis. Gfcr-ngv-nlcmjav control pills. Fioricet p.r.n. Ventolin p.r.n. trazodone 100 mg p.o. daily. SOCIAL HISTORY: Nonsmoker. No history of alcohol. No history of IV drugs. FAMILY HISTORY: Mother has obstructive sleep apnea, COPD and depression. Father history is unknown as the patient does not know her biologic father. REVIEW OF SYSTEM: Fourteen-point review of system was done. The positive findings are mentioned above in the history of present illness. Obviously patient has chronic pain and fibromyalgia. Her eating disorder is quite interesting. She has binge eating disorder. No anorexia. No bulimia. She has chronic anxiety. She has chronic headaches, migraines in addition to fibromyalgia related pain. Her insomnia is also chronic that has responded very nicely to Belsomra in the past and currently she is on trazodone due to prescription coverage issue. Weight gain is noted because of her eating disorder. She sleeps on her side. No sleep paralysis. No hallucinations. No cataplexy. PHYSICAL EXAMINATION: BP is 122/78, pulse 66, respirations 16, temperature 98.5, saturation 99% on room air. Height is 5 feet 6 inches, weight is 285. BMI is 45.3, neck size is 15.5 inches. General appearance calm comfortable in no acute distress. Head is atraumatic, normocephalic. NECK: Supple. Mallampati class IV. There is no goiter or neck masses. LUNGS: Clear to auscultation. HEART: Sounds regular rate and rhythm. Normal S1, S2. No S3. No murmurs. ABDOMEN: Soft, nontender. No organomegaly. EXTREMITIES: No edema. No cyanosis or clubbing. Neurologic: No focal neurological deficits. The patient moves all 4 extremities without any limitation. She has chronic migraines. PSYCHIATRICALLY: Positive for anxiety. Skin negative for any wounds or ulceration. IMPRESSION: 1. Hypersomnia under investigation. The patient's condition is multifactorial. Obviously she may have an underlying component of insomnia related to chronic comorbidities which has been well treated with Belsomra in the past and currently she is on trazodone. Never the less, her sleep is fragmented. She has gained significant amount of weight because of her binge eating disorder and she has typical features of obstructive sleep apnea and that needs to be further investigated. 2. Insomnia, chronic, comorbid insomnia. 3. Chronic anxiety. 4. Hypothyroidism. 5. Binge eating disorder. 6. Obesity with a BMI of 45.3. 7. Hypersomnia, [place] score of 12. PLAN: 1. Encourage weight loss. 2. Follow up with Psychiatry regarding her binge eating disorder. 3. Continue Synthroid for hypothyroidism. 4. Continue pain control regarding fibromyalgia. 5. Continue trazodone for insomnia and has been used for sleep induction and maintenance. 6. Proceed with a PSG to assess the patient's ability to initiate and maintain sleep. We will check the patient's sleep architecture. We will check the patient's sleep efficiency. Check extent of sleep fragmentation and rule out any sleep breathing disorder during the sleep study. 7. We will treat her accordingly. 8. We will continue to follow. JAIRO / KATELIN: [id number] /
== END ==
LOC: SLEEP 16:08
PROVIDERS: ATTEND Internal Medicine Critical Care Medicine
DX: G47.33 Obstructive sleep apnea (adult) (pediatric) (principal); F41.9 Anxiety disorder, unspecified; E03.9 Hypothyroidism, unspecified; E66.9 Obesity, unspecified; F50.81 Binge eating disorder; Z68.42 Body mass index [BMI] 45.0-49.9, adult; Z88.6 Allergy status to analgesic agent; Z88.8 Allergy status to other drugs, medicaments and biological substances; Z79.899 Other long term (current) drug therapy; Z79.1 Long term (current) use of non-steroidal anti-inflammatories (NSAID)
CPT/HCPCS: 99211

== ENCOUNTER 2018-11-16 12:27 | Emergency (ER) | payer OTHER ==
[2018-11-16 12:41] VITALS: RESP 18
[2018-11-16] MEDS ORDERED: SODIUM CHLORIDE 0.9% 1,000 ML IV ONE (12:55)
[2018-11-16] MEDS ORDERED: diphenhydrAMINE 50 MG/ML 1 ML VIAL IVP STA (12:56)
[2018-11-16] MEDS ORDERED: METOCLOPRAMIDE 5 MG/ML 2 ML VIAL IVP STA (12:56)
[2018-11-16] MEDS ORDERED: KETOROLAC 30 MG/ML 1 ML VIAL IVP STA (12:56)
[2018-11-16] MEDS ORDERED: ORPHENADRINE 30 MG/ML 2 ML VIAL IVP STA (12:56)
--- NOTE | 2018-11-16 13:45 | ED ---
Headache HPI - General Chief Complaint: Headache Stated Complaint: Migraine Time Seen by Provider: 11/16/18 12:43 Source: patient, RN notes reviewed Mode of arrival: ambulatory Limitations: no limitations - History of Present Illness Initial Comments: 33-year-old female presents emergency department for migraine headache. Patient has a history migraine headaches normally takes fierce that for. Patient states that has not helped. This is her typical headache more diffuse in nature that radiates from the back of her head to the front Denies any blurred vision but states that she has photophobia. Does admit to some nausea and vomiting yesterday no focal weakness noted fever, neck pain or neck stiffness. Denies any chest pain or shortness of breath. Patient has not taken anything else with her discomfort. - Related Data Home Medications Medication Instructions Recorded Confirmed Levothyroxine Sodium [Synthroid] 50 mcg PO DAILY 05/05/14 11/16/18 traZODone HCL [Desyrel] 100 mg PO HS 04/04/15 11/16/18 Norethindrone-E.estradiol-Iron 1 tab PO HS 05/01/16 11/16/18 [Loestrin Fe 1.5-30 Tablet] Pregabalin [Lyrica] 75 mg PO QAM 05/01/16 11/16/18 busPIRone HCL 15 mg PO BID 05/01/16 11/16/18 Albuterol Inhaler [Ventolin Hfa 2 puff INHALATION RT-Q6H PRN 05/23/16 11/16/18 Inhaler] Meloxicam [Mobic] 15 mg PO DAILY 12/31/16 11/16/18 Famotidine [Pepcid] 20 mg PO BID 07/19/17 11/16/18 Topiramate [Trokendi Xr] 200 mg PO DAILY 07/19/17 11/16/18 Venlafaxine HCl [Effexor XR] 225 mg PO HS 07/19/17 11/16/18 Butalb/Acetaminophen/Caffeine 1 cap PO Q4HR PRN 08/28/17 11/16/18 [Fioricet 50-300-40 mg Capsule] Pregabalin [Lyrica] 150 mg PO HS 11/07/17 11/16/18 Methocarbamol [Robaxin-750] 750 mg PO TID PRN 11/16/17 11/16/18 HYDROcodone/APAP 7.5-325MG [[place] 1 tab PO TID PRN 03/01/18 11/16/18 7.5-325] Multivitamins, Thera [Multivitamin 1 tab PO DAILY 03/01/18 11/16/18 (formulary)] Wheat Dextrin [Benefiber] 1 dose PO DAILY 08/08/18 11/16/18 Lisdexamfetamine Dimesylate 70 mg PO QAM 11/16/18 11/16/18 [Vyvanse] Allergies Allergy/AdvReac Type Severity Reaction Status Date / Time tramadol Allergy Hallucinati Verified 11/16/18 12:50 ons valacyclovir HCl AdvReac BLURRED Verified 11/16/18 12:50 [From Valtrex] VISION Review of Systems ROS Statement: Those systems with pertinent positive or pertinent negative responses have been documented in the HPI. ROS Other: All systems not noted in ROS Statement are negative. Past Medical History Past Medical History: Asthma, Fibromyalgia, GERD/Reflux, Musculoskeletal Disorder, Skin Disorder, Sleep Apnea/CPAP/BIPAP, Thyroid Disorder Additional Past Medical History / Comment(s): Hx Migraines, DDD , IBS, NO CPAP used. HX PERFORATED DIVERTICULITIS W/ PAST Colostomy 12/2017. HEAT RASH UNDER SKIN FOLDS. GALLBLADDER PROB CURRENTLY. History of Any Multi-Drug Resistant Organisms: None Reported Past Surgical History: Bowel Resection, Breast Surgery Additional Past Surgical History / Comment(s): Dental, Rt Breast biopsy. Colostomy 12/2017, THEN Reversal 02/2018. Past Anesthesia/Blood Transfusion Reactions: No Reported Reaction Past Psychological History: Anxiety, Bipolar, Depression Smoking Status: Never smoker Past Alcohol Use History: None Reported Past Drug Use History: None Reported - Past Family History Mother History Unknown: Yes Family Medical History: COPD Additional Family Medical History / Comment(s): depression, anxiety Brother(s) Family Medical History: Diabetes Mellitus General Exam Limitations: no limitations General appearance: alert, in no apparent distress Head exam: Present: atraumatic, normocephalic, normal inspection Eye exam: Present: normal appearance, PERRL, EOMI. Absent: scleral icterus, conjunctival injection, periorbital swelling ENT exam: Present: normal exam, normal oropharynx, mucous membranes moist, TM's normal bilaterally, normal external ear exam Neck exam: Present: normal inspection, full ROM. Absent: tenderness, meningismus, lymphadenopathy Respiratory exam: Present: normal lung sounds bilaterally. Absent: respiratory distress, wheezes, rales, rhonchi, stridor Cardiovascular Exam: Present: regular rate, normal rhythm, normal heart sounds. Absent: systolic murmur, diastolic murmur, rubs, gallop, clicks Extremities exam: Present: normal inspection, full ROM, normal capillary refill. Absent: tenderness, pedal edema, joint swelling, calf tenderness Neurological exam: Present: alert, oriented X3, CN II-XII intact, reflexes normal, other (Finger to nose intact bilaterally without over shooting). Absent: motor sensory deficit Skin exam: Present: warm, dry, intact, normal color. Absent: rash Course Vital Signs 11/16/18 12:38 Temperature 99.4 F Pulse Rate 66 Respiratory 18 Rate Blood Pressure 125/81 O2 Sat by Pulse 98 Oximetry - Reevaluation(s) Reevaluation #1: 11/16/18 14:12 Patient reevaluated states that she feels much improved at this time. Medical Decision Making - Medical Decision Making 33-year-old female presented for migraine headache. This is her typical migraine headache but no neurological deficits. Patient feels improved after IV medications. Patient will be discharged return parameters were discussed. Disposition Clinical Impression: Migraine Disposition: HOME SELF-CARE Condition: Stable Instructions (If sedation given, give patient instructions): Acute Headache (ED) Additional Instructions: Please return to the Emergency Department if symptoms worsen or any other concerns. Is patient prescribed a controlled substance at d/c from ED?: No Referrals: Edgardo Inman MD [Primary Care Provider] - 1-2 days Time of Disposition: 14:12
[2018-11-16 14:53] VITALS: BP 138/70; PULSE 79; TEMP 97.8
== END 2018-11-16 14:51 | disposition home or self-care (01) ==
LOC: EC 12:27
DX: G43.909 Migraine, unspecified, not intractable, without status migrainosus (principal); J45.909 Unspecified asthma, uncomplicated; M79.7 Fibromyalgia; K21.9 Gastro-esophageal reflux disease without esophagitis; K58.9 Irritable bowel syndrome, unspecified; E07.9 Disorder of thyroid, unspecified; F31.9 Bipolar disorder, unspecified; F41.9 Anxiety disorder, unspecified; Z79.1 Long term (current) use of non-steroidal anti-inflammatories (NSAID); Z79.3 Long term (current) use of hormonal contraceptives; Z79.890 Hormone replacement therapy; Z79.899 Other long term (current) drug therapy; Z88.5 Allergy status to narcotic agent; Z88.8 Allergy status to other drugs, medicaments and biological substances; Z93.3 Colostomy status
CPT/HCPCS: 99283; 96374; 96375 ×3; 96361; J1200; J2360; J2765; J1885

== ENCOUNTER → 2018-12-05 | Outpatient (CLI) | payer OTHER ==
[2018-12-05 12:03] VITALS: BP 132/88; PULSE 91; RESP 16; TEMP 98.7
--- NOTE | 2018-12-06 08:11 | P.PAINPG ---
Subjective Progress Note Date: 12/05/18 History of presenting illness: Mary is a 33-year-old female who was last evaluated on 11/08/2017 for severe low back pain and radiating to lower extremities. She underwent lumbar epidural steroid injections on 11/21/2017 and 12/06/2017. She reports 75% relief of pain from these procedures. They gave her good relief for 3-4 months. Unfortunately, she was admitted in the hospital in December 2017 for free air in the abdomen and she underwent an exploratory laparotomy and colostomy placement. She then underwent colostomy reversal in February 2018. She returns for follow- up today. Today her primary complaint complaint is similar to previous complaints, originating in the left low back radiating to left buttock entire left leg and down to the toes. Pain is described as sharp, aching, burning. Pain is rated today as a 6 out of 10. She does report occasional numbness and tingling in her left leg, primarily in the foot but sometimes the entire leg. She denies weakness. Her medications include [place], Lyrica, Mobic. She does not report any side effects from these medications. She has had physical therapy in the past, and triceps to do her exercises on a daily basis at home. She is obese, and has been diagnosed with an eating disorder. She is taking medications for this to her psychiatrist and is gradually losing weight. Review of systems is negative for chest pain, shortness of breath, new onset weakness, numbness/tingling, abdominal pain, malaise, fever, night sweats, chill s, homicidal or suicidal ideation, or bowel or bladder incontinence. Physical exam: Vitals: Reviewed in EMR GENERAL: Well appearing, in no acute distress, obese PSYCH: Mood and affect is appropriate. Awake, alert, and oriented SKIN: Skin color, texture, turgor normal, no rashes or lesions HEENT: Normocephalic, atraumatic. EOM intact CV: No pedal edema RESP: Respirations are unlabored, no audible wheezing GI: Abdomen non-distended MUSCULOSKELETAL: Bilateral lower extremity strength: Left-sided plantar and dorsiflexion is 4/5. Otherwise, strength is grossly intact in bilateral lower extremities. No atrophy or tone abnormalities are noted. Lumbar spine: Straight leg raising in the sitting position is negative for radicular pain. Pain to palpation over the lumbar spine and paraspinous muscles bilaterally. Negative for pain with facet loading and back extension/rotation. Normal range of motion without pain reproduction Buttocks: No pain to palpation over the PSIS, sacroiliac joint maneuvers are negative for pain. Extremities: Peripheral joint ROM is full and pain free without obvious instability or laxity in all four extremities. No edema or skin discolorations noted. Gait: Gait is normal NEUR: Bilateral lower extremity coordination and muscle stretch reflexes are physiologic and symmetric. Negative clonus bilaterally. Reduced sensation to light touch noted in left calf. Imaging: MRI lumbar spine shows L5-S1 disc abutting the left S1 nerve root. Assessment: 1. Lumbar radiculopathy 2. Lumbar degenerative disc disease Plan: 1. Procedures: We'll schedule L5-S1 epidural steroid injection with a left paramedian approach 2. Education: Encouraged weight loss and exercise. Discussed the importance of continued exercise and weight loss as it relates to pain. 3. Continue medications per primary care physician Follow-up: For procedure PQRS Measure Charge Sheet Measure #130: Documentation of Current Meds in Medical Chart: Patient's medications documented in chart Measure #226: Tobacco Use: Screen & Cessation Intervention: Pt not a tobacco user Measure #111: Pneumonia Vaccination: Pneumococcal vaccine administered or previously received Measure #47: Advance Care Plan: Advance care planning discussed & documented, pt chose/unable to give Measure #412: Opioid Treatment Agreement: No documentation of signed opioid treatment agreement Measure #317: Preventitive Care & Scrn High Bld Press & F/U: Normal blood pressure, f/u not required Measure #128: Body Mass Index (BMI) Screening & Follow-up: BMI documented ABOVE normal parameters - f/u documented Measure #131: Pain Assessment & Follow-up: Pain positive & plan documented, Follow-up scheduled Measure #431: Unhealthy Alcohol Use Preventative Care & Scrn: Patient not identified as an unhealthy alcohol user PQRS Narrative: Smoking Status Never smoker Home Medications: Ambulatory Orders Levothyroxine Sodium [Synthroid] 50 mcg PO DAILY 05/05/14 traZODone HCL [Desyrel] 100 mg PO HS 04/04/15 Norethindrone-E.estradiol-Iron [Loestrin Fe 1.5-30 Tablet] 1 tab PO HS 05/01/16 Pregabalin [Lyrica] 75 mg PO QAM 05/01/16 busPIRone HCL 15 mg PO BID 05/01/16 Albuterol Inhaler [Ventolin Hfa Inhaler] 2 puff INHALATION RT-Q6H PRN 05/23/16 Meloxicam [Mobic] 15 mg PO DAILY 12/31/16 Famotidine [Pepcid] 20 mg PO BID 07/19/17 Topiramate [Trokendi Xr] 200 mg PO DAILY 07/19/17 Venlafaxine HCl [Effexor XR] 225 mg PO HS 07/19/17 Butalb/Acetaminophen/Caffeine [Fioricet 50-300-40 mg Capsule] 1 cap PO Q4HR PRN 08/28/17 Pregabalin [Lyrica] 150 mg PO HS 11/07/17 Methocarbamol [Robaxin-750] 750 mg PO TID PRN 11/16/17 HYDROcodone/APAP 7.5-325MG [[place] 7.5-325] 1 tab PO TID PRN 03/01/18 Multivitamins, Thera [Multivitamin (formulary)] 1 tab PO DAILY 03/01/18 Wheat Dextrin [Benefiber] 1 dose PO DAILY 08/08/18 Lisdexamfetamine Dimesylate [Vyvanse] 70 mg PO QAM 11/16/18 Galcanezumab-Gnlm [Emgality Syringe] 120 mg SQ DIRECTED 12/05/18 Controlled Substance Measures - Controlled Substance Measures Is patient prescribed a controlled substance at discharge?: No
== END | disposition home or self-care (01) ==
LOC: PNWHC3 11:24
PROVIDERS: ATTEND Anesthesiology
DX: M51.06 Intervertebral disc disorders with myelopathy, lumbar region (principal); M51.16 Intervertebral disc disorders with radiculopathy, lumbar region; Z79.1 Long term (current) use of non-steroidal anti-inflammatories (NSAID); Z79.891 Long term (current) use of opiate analgesic; Z79.899 Other long term (current) drug therapy
CPT/HCPCS: 99211

== ENCOUNTER → 2018-12-12 | Day surgery (SDC) | payer OTHER ==
[2018-12-10 14:44] VITALS: BMI 42.5
[~2018-12-12] MED LIST changes: -DEXAMETHASONE SOD PHOSPHATE 10 MG/ML 1 ML VIAL IV ONE; -HEPARIN SODIUM,PORCINE 5,000 UNIT/ML 1 ML VIAL SQ ONE; +IV FLUID CONTINUATION 700 ML IV ONE; +LIDOCAINE 1% 20 ML VIAL (10MG/ML) FOR IV START INTRADERMA ONE; -MIDAZOLAM (PF) 2 MG/2 ML VIAL IV PRN; -ONDANSETRON 4 MG/2 ML VIAL IVP ONE; -SCOPOLAMINE 1.5MG/72HR PATCH TRANSDERM ONE; -ceFAZolin IN SWFI 2 GM/20 ML SYRINGE IVP ONE
[2018-12-12 06:48] VITALS: TEMP 97.3
--- NOTE | 2018-12-12 07:22 | P.PCN ---
Date of Procedure: 12/12/18 Surgeon: Priscila Metcalf Pathology: none sent Condition: stable Disposition: PACU Description of Procedure: PREOPERATIVE DIAGNOSIS: 1-Lumbar radiculopathy 2- Lumber Degenerative Disc Diseases. POSTOPERATIVE DIAGNOSIS: 1-Lumbar radiculopathy. 2-Lumbar Degenerative Disc Diseases PROCEDURE 1. Lumbar epidural steroid injection under fluoroscopic guidance at the L5-S1 level in the left paramedian approach 2. Lumbar epidurogram. ANESTHESIA: Local with 1% lidocaine; and IV moderate conscious sedation with Versed and fentanyl EBL: Minimal PROCEDURE INDICATION: The patient with low back pain and radiculitis symptoms unresponsive to conservative treatment. Fluoroscopy was used to optimize visualization of the needle placement and to maximize safety. PROCEDURE DESCRIPTION / TECHNIQUE: The patient was seen and identified in the preoperative area. Risks, benefits, complications including but not limited to infections ,bleeding ,allergic reaction to the medications ,nerve damage and not complete pain relief , and alternatives were discussed with the patient. The patient agreed to proceed with the procedure and signed the consent. IV was started, and vital signs were stable. Patient was taken to the OR and time out was completed. The patient was placed in the prone position on procedure table and a pillow was placed under the abdomen to reduce lumbar lordosis. The lumbosacral area was prepped and draped in the usual sterile fashion with ChloraPrep.Patient was closely monitored during the procedure. Conscious sedation was used during the procedure to decrease patients anxiety. Vital signs were monitered during the entire procedure. Using anterior-posterior fluoroscopy, the L5-S1 interlaminar space was identified and the skin over this site was marked and then infiltrated with 1% lidocaine subcutaneously. Subsequently, a 18-gauge 6"Tuohy epidural needle was inserted and advanced toward the epidural space using the Loss of resistance to air technique and guided by AP and lateral fluoroscopy. The correct needle position in the epidural space was verified with the injection of 1 mL of the water soluble contrast dye Omnipaque 180 contrast and observing an excellent epidurogram with the epidural spread of the dye, after negative aspiration for blood and CSF and in the absence of paresthesias. Again after negative aspiration, a 8 ml mixture containing 80 mg of Kenalog and 5 ml of preservative free Normal Saline, and 2 ml of preservative free ropivacaine 0.5% solution was injected and a washout of epidurogram was seen. Needle was withdrawn intact, skin was cleansed, and bandages were applied. patient tolerated procedure well and was transferred to PACU in stable condition. COMPLICATIONS: None DISPOSITION / PLANS: The patient was placed in a supine position and transferred to the recovery area in a stable condition for observation. There was no evidence of lower extremity motor or sensory deficit after the procedure. Patient was discharged from the recovery room after meeting discharge criteria. Home discharge instructions were given to the patient by the staff. The patient was reexamined prior to discharge. The patient will schedule a follow up in the clinic in 2-4 weeks.
[2018-12-12 07:44] VITALS: BP 94/60; PULSE 50; RESP 16
--- NOTE | 2018-12-12 08:01 | FL ---
EXAMINATION TYPE: FL guided pain mgmt statistic DATE OF EXAM: 12/12/2018 COMPARISON: NONE HISTORY: Back pain TECHNIQUE: Fluoroscopy. FINDINGS: Fluoroscopic guidance was provided during procedure performed by Dr. Metcalf. A total of 7 seconds of fluoroscopic time was utilized during the procedure and 1 spot images was acquired demon strating localization of the lumbosacral junction. IMPRESSION: As Above.
== END ==
LOC: ORPAIN 06:12
PROVIDERS: ATTEND Anesthesiology
DX: M51.16 Intervertebral disc disorders with radiculopathy, lumbar region (principal); Z79.1 Long term (current) use of non-steroidal anti-inflammatories (NSAID); Z79.891 Long term (current) use of opiate analgesic; Z79.899 Other long term (current) drug therapy; Z79.890 Hormone replacement therapy
CPT/HCPCS: 81025; 62323; J2250; J3301; J3010; Q9966; 99152

== ENCOUNTER 2018-12-18 16:47 | Emergency (ER) | payer OTHER ==
[2018-12-18 16:52] VITALS: RESP 18
[2018-12-18] MEDS ORDERED: SODIUM CHLORIDE 0.9% 1,000 ML IV STA ×2 (17:10)
--- NOTE | 2018-12-18 17:13 | ED ---
Syncope HPI - General Chief Complaint: Syncope Stated Complaint: syncope Time Seen by Provider: 12/18/18 16:50 Source: patient, RN notes reviewed Mode of arrival: ambulatory Limitations: no limitations - History of Present Illness Initial Comments: This is a 33-year-old female with a history of thyroid disorder who states she was cutting a lot of weed whacking today when she suddenly passed out. She states she woke up on the ground with her significant other over her. The patient did not feel any palpitations chest pain dizziness lightheadedness no other symptoms she states she ate some pizza crazy bread prior. It is rather warm outside today. No other prior episode of this. No other modifying factors. She's had no history of diabetes. MD Complaint: loss of consciousness - Related Data Home Medications Medication Instructions Recorded Confirmed Levothyroxine Sodium [Synthroid] 50 mcg PO DAILY 05/05/14 12/18/18 traZODone HCL [Desyrel] 100 mg PO HS 04/04/15 12/18/18 Norethindrone-E.estradiol-Iron 1 tab PO HS 05/01/16 12/18/18 [Loestrin Fe 1.5-30 Tablet] Pregabalin [Lyrica] 75 mg PO QAM 05/01/16 12/18/18 busPIRone HCL 15 mg PO BID 05/01/16 12/18/18 Albuterol Inhaler [Ventolin Hfa 2 puff INHALATION RT-Q6H PRN 05/23/16 12/18/18 Inhaler] Meloxicam [Mobic] 15 mg PO DAILY 12/31/16 12/18/18 Famotidine [Pepcid] 20 mg PO BID 07/19/17 12/18/18 Topiramate [Trokendi Xr] 200 mg PO DAILY 07/19/17 12/18/18 Venlafaxine HCl [Effexor XR] 225 mg PO HS 07/19/17 12/18/18 Butalb/Acetaminophen/Caffeine 1 cap PO Q4HR PRN 08/28/17 12/18/18 [Fioricet 50-300-40 mg Capsule] Pregabalin [Lyrica] 150 mg PO HS 11/07/17 12/18/18 Methocarbamol [Robaxin-750] 750 mg PO TID PRN 11/16/17 12/18/18 HYDROcodone/APAP 7.5-325MG [[place] 1 tab PO TID PRN 03/01/18 12/18/18 7.5-325] Multivitamins, Thera [Multivitamin 1 tab PO DAILY 03/01/18 12/18/18 (formulary)] Wheat Dextrin [Benefiber] 1 dose PO DAILY 08/08/18 12/18/18 Lisdexamfetamine Dimesylate 70 mg PO QAM 11/16/18 12/18/18 [Vyvanse] Galcanezumab-Gnlm [Emgality 120 mg SQ Q30D 12/05/18 12/18/18 Syringe] Allergies Allergy/AdvReac Type Severity Reaction Status Date / Time tramadol Allergy Hallucinati Verified 12/18/18 17:01 ons valacyclovir HCl AdvReac BLURRED Verified 12/18/18 17:01 [From Valtrex] VISION Review of Systems ROS Statement: Those systems with pertinent positive or pertinent negative responses have been documented in the HPI. ROS Other: All systems not noted in ROS Statement are negative. Past Medical History Past Medical History: Asthma, Fibromyalgia, GERD/Reflux, Musculoskeletal Disorder, Skin Disorder, Sleep Apnea/CPAP/BIPAP, Thyroid Disorder Additional Past Medical History / Comment(s): Hx Migraines, DDD , IBS, NO CPAP used. HX PERFORATED DIVERTICULITIS W/ PAST Colostomy 12/2017. HEAT RASH UNDER SKIN FOLDS. GALLBLADDER PROB CURRENTLY. History of Any Multi-Drug Resistant Organisms: None Reported Past Surgical History: Bowel Resection, Breast Surgery, Cholecystectomy Additional Past Surgical History / Comment(s): Dental, Rt Breast biopsy. Colostomy 12/2017, THEN Reversal 02/2018. Cholecystectomy - 08-12-18 Past Anesthesia/Blood Transfusion Reactions: No Reported Reaction Past Psychological History: Anxiety, Bipolar, Depression Smoking Status: Never smoker Past Alcohol Use History: Occasional Past Drug Use History: None Reported - Past Family History Mother History Unknown: Yes Family Medical History: COPD Additional Family Medical History / Comment(s): depression, anxiety Brother(s) Family Medical History: Diabetes Mellitus General Exam - General Exam Comments Initial Comments: This is a well-developed well-nourished awake alert oriented 3 female Limitations: no limitations General appearance: alert, in no apparent distress Head exam: Present: atraumatic, normocephalic, normal inspection Eye exam: Present: normal appearance, PERRL, EOMI. Absent: scleral icterus, conjunctival injection, periorbital swelling ENT exam: Present: mucous membranes dry Neck exam: Present: normal inspection, full ROM, other (No stridor JVD or bruits). Absent: tenderness, meningismus, lymphadenopathy Respiratory exam: Present: normal lung sounds bilaterally. Absent: respiratory distress, wheezes, rales, rhonchi, stridor Cardiovascular Exam: Present: regular rate, normal rhythm, normal heart sounds. Absent: systolic murmur, diastolic murmur, rubs, gallop, clicks GI/Abdominal exam: Present: soft, normal bowel sounds. Absent: distended, tenderness, guarding, rebound, rigid Extremities exam: Present: normal inspection, full ROM, normal capillary refill. Absent: tenderness, pedal edema, joint swelling, calf tenderness Back exam: Present: normal inspection Neurological exam: Present: alert, oriented X3, CN II-XII intact Psychiatric exam: Present: normal affect, normal mood Skin exam: Present: warm, dry, intact, normal color. Absent: rash Course Vital Signs 12/18/18 12/18/18 16:49 18:06 Temperature 98.9 F Pulse Rate 79 78 Respiratory 18 18 Rate Blood Pressure 150/92 108/94 O2 Sat by Pulse 99 100 Oximetry - Reevaluation(s) Reevaluation #1: 12/18/18 18:59 Patient was resting comfortably EKG Findings - EKG Results: EKG: interpreted by ERMPam, sinus rhythm (Normal sinus rhythm rate 64. Interval 166 QRS duration 96 QT since QTC 390/[address]-t wave changes) Medical Decision Making - Medical Decision Making I did discuss findings with patient and her significant other patient is feeling much improved after IV hydration the presentation is consistent with a vasovagal episode/dehydration. Patient is instructed to increase oral fluids she is follow-up with her doctor return when necessary - Lab Data Result diagrams: 12/18/18 17:46 12/18/18 17:46 Lab Results 12/18/18 12/18/18 12/18/18 Range/Units 17:46 17:46 17:46 WBC 12.5 H (3.8-10.6) k/uL RBC 4.74 (3.80-5.40) m/uL Hgb 13.5 (11.4-16.0) gm/dL Hct 41.5 (34.0-46.0) % MCV 87.4 (80.0-100.0) fL MCH 28.5 (25.0-35.0) pg MCHC 32.6 (31.0-37.0) g/dL RDW 13.7 (11.5-15.5) % Plt Count 370 (150-450) k/uL Neutrophils % 72 % Lymphocytes % 21 % Monocytes % 5 % Eosinophils % 1 % Basophils % 0 % Neutrophils # 9.0 H (1.3-7.7) k/uL Lymphocytes # 2.6 (1.0-4.8) k/uL Monocytes # 0.6 (0-1.0) k/uL Eosinophils # 0.1 (0-0.7) k/uL Basophils # 0.0 (0-0.2) k/uL PT 10.4 (9.0-12.0) sec INR 1.0 (<1.2) APTT 24.0 (22.0-30.0) sec Sodium 142 (137-145) mmol/L Potassium 4.1 (3.5-5.1) mmol/L Chloride 108 H (98-107) mmol/L Carbon Dioxide 24 (22-30) mmol/L Anion Gap 10 mmol/L BUN 21 H (7-17) mg/dL Creatinine 0.93 (0.52-1.04) mg/dL Est GFR (CKD-EPI)AfAm >90 (>60 ml/min/1.73 sqM) Est GFR (CKD-EPI)NonAf 81 (>60 ml/min/1.73 sqM) Glucose 98 (74-99) mg/dL POC Glucose (mg/dL) (75-99) mg/dL POC Glu Coil Shaper ID Calcium 9.8 (8.4-10.2) mg/dL Magnesium 2.2 (1.6-2.3) mg/dL Total Bilirubin 0.3 (0.2-1.3) mg/dL AST 22 (14-36) U/L ALT 19 (9-52) U/L Alkaline Phosphatase 68 (38-126) U/L Creatine Kinase 123 (30-135) U/L Troponin I (0.000-0.034) ng/mL Total Protein 7.6 (6.3-8.2) g/dL Albumin 4.2 (3.5-5.0) g/dL TSH 2.120 (0.465-4.680) mIU/L 12/18/18 12/18/18 Range/Units 17:46 17:49 WBC (3.8-10.6) k/uL RBC (3.80-5.40) m/uL Hgb (11.4-16.0) gm/dL Hct (34.0-46.0) % MCV (80.0-100.0) fL MCH (25.0-35.0) pg MCHC (31.0-37.0) g/dL RDW (11.5-15.5) % Plt Count (150-450) k/uL Neutrophils % % Lymphocytes % % Monocytes % % Eosinophils % % Basophils % % Neutrophils # (1.3-7.7) k/uL Lymphocytes # (1.0-4.8) k/uL Monocytes # (0-1.0) k/uL Eosinophils # (0-0.7) k/uL Basophils # (0-0.2) k/uL PT (9.0-12.0) sec INR (<1.2) APTT (22.0-30.0) sec Sodium (137-145) mmol/L Potassium (3.5-5.1) mmol/L Chloride (98-107) mmol/L Carbon Dioxide (22-30) mmol/L Anion Gap mmol/L BUN (7-17) mg/dL Creatinine (0.52-1.04) mg/dL Est GFR (CKD-EPI)AfAm (>60 ml/min/1.73 sqM) Est GFR (CKD-EPI)NonAf (>60 ml/min/1.73 sqM) Glucose (74-99) mg/dL POC Glucose (mg/dL) 92 (75-99) mg/dL POC Glu Coil Shaper Martha Barba Calcium (8.4-10.2) mg/dL Magnesium (1.6-2.3) mg/dL Total Bilirubin (0.2-1.3) mg/dL AST (14-36) U/L ALT (9-52) U/L Alkaline Phosphatase (38-126) U/L Creatine Kinase (30-135) U/L Troponin I <0.012 (0.000-0.034) ng/mL Total Protein (6.3-8.2) g/dL Albumin (3.5-5.0) g/dL TSH (0.465-4.680) mIU/L - Radiology Data Radiology results: report reviewed (G reviewed no acute findings.), image reviewed Disposition Clinical Impression: Vasovagal syncope, Syncope due to orthostatic hypotension, Dehydration Disposition: HOME SELF-CARE Condition: Good Instructions (If sedation given, give patient instructions): Syncope (ED), Dehydration (ED) Is patient prescribed a controlled substance at d/c from ED?: No Referrals: Edgardo Inman MD [Primary Care Provider] - 1-2 days
[2018-12-18 17:50] LABS: Glucose,Whole Blood 92 mg/dL (75-99)
[2018-12-18 18:02] LABS: Basophils % (A) 0 %; Eosinophils # (A) 0.1 k/uL (0-0.7); Eosinophils % (A) 1 %; HCT 41.5 % (34.0-46.0); HGB 13.5 gm/dL (11.4-16.0); Lymphocytes # (A) 2.6 k/uL (1.0-4.8); Lymphocytes % (A) 21 %; MCH 28.5 pg (25.0-35.0); MCHC 32.6 g/dL (31.0-37.0); MCV 87.4 fL (80.0-100.0); Monocytes # (A) 0.6 k/uL (0-1.0); Monocytes % (A) 5 %; Neutrophils % (A) 72 %; Platelet Count 370 k/uL (150-450); RBC 4.74 m/uL (3.80-5.40); RDW 13.7 % (11.5-15.5); WBC 12.5 k/uL (3.8-10.6)
[2018-12-18 18:08] LABS: ALT 19 U/L (9-52); AST 22 U/L (14-36); African American GFR (CKD) >90 (>60 ml/min/1.73 sqM); Albumin 4.2 g/dL (3.5-5.0); Alkaline Phosphatase 68 U/L (38-126); Anion Gap 10 mmol/L; Blood Urea Nitrogen 21 mg/dL (7-17); Calcium 9.8 mg/dL (8.4-10.2); Carbon Dioxide 24 mmol/L (22-30); Chloride 108 mmol/L (98-107); Creatine Kinase 123 U/L (30-135); Glucose 98 mg/dL (74-99); Magnesium 2.2 mg/dL (1.6-2.3); Potassium 4.1 mmol/L (3.5-5.1); Sodium 142 mmol/L (137-145); Total Bilirubin 0.3 mg/dL (0.2-1.3); Total Protein 7.6 g/dL (6.3-8.2)
[2018-12-18 18:12] LABS: Prothrombin Time 10.4 sec (9.0-12.0)
--- NOTE | 2018-12-18 19:18 | XR ---
EXAMINATION: XR chest 2V DATE AND TIME: 12/18/2018 6:12 PM CLINICAL INDICATION: PHH; syncope TECHNIQUE: Departmental protocol COMPARISON: None FINDINGS: The overlying soft tissues are prominent. Lungs are clear as seen, and the pleural spaces are negative. The cardiac silhouette is not enlarged. The remainder of the mediastinal silhouette is unremarkable. The skeletal structures and soft tissues are negative for acute findings. IMPRESSION: NO ACUTE PROCESS.
[2018-12-18 19:25] VITALS: BP 116/73; PULSE 80; TEMP 98.3
== END 2018-12-18 19:24 | disposition home or self-care (01) ==
LOC: EC 16:47
DX: I95.1 Orthostatic hypotension (principal); E86.0 Dehydration; J45.909 Unspecified asthma, uncomplicated; M79.7 Fibromyalgia; K21.9 Gastro-esophageal reflux disease without esophagitis; E07.9 Disorder of thyroid, unspecified; F31.9 Bipolar disorder, unspecified; F41.9 Anxiety disorder, unspecified; Z88.5 Allergy status to narcotic agent; Z88.8 Allergy status to other drugs, medicaments and biological substances; Z79.1 Long term (current) use of non-steroidal anti-inflammatories (NSAID); Z79.3 Long term (current) use of hormonal contraceptives; Z79.890 Hormone replacement therapy; Z79.899 Other long term (current) drug therapy; Z86.69 Personal history of other diseases of the nervous system and sense organs
CPT/HCPCS: 36415; 71046; 80053; 82550; 83735; 84443; 84484; 85025; 85610; 85730; 93005; 96360; 99284

== ENCOUNTER 2019-01-02 07:07 | Day surgery (SDC) | payer OTHER ==
[2018-12-31 10:19] VITALS: BMI 41.5
[~2019-01-02 07:07] MED LIST changes: -IV FLUID CONTINUATION 700 ML IV ONE; -LIDOCAINE 1% 20 ML VIAL (10MG/ML) FOR IV START INTRADERMA ONE
[2019-01-02 07:28] VITALS: TEMP 97
[2019-01-02] MEDS ORDERED: LIDOCAINE 1% 20 ML VIAL (10MG/ML) FOR IV START INTRADERMA ONE (07:28)
[2019-01-02 07:29] LABS: Glucose,Whole Blood 78 mg/dL (75-99)
--- NOTE | 2019-01-02 08:22 | P.PCN ---
Date of Procedure: 01/02/19 Procedure(s) Performed: Description of Procedure: PREOPERATIVE DIAGNOSIS: 1-Lumbar radiculopathy 2- Lumber Degenerative Disc Diseases. POSTOPERATIVE DIAGNOSIS: 1-Lumbar radiculopathy. 2-Lumbar Degenerative Disc Diseases PROCEDURE 1. Lumbar epidural steroid injection under fluoroscopic guidance at the L5-S1 level in the left paramedian approach 2. Lumbar epidurogram. ANESTHESIA: Local with 1% lidocaine; and IV moderate conscious sedation with Versed 2 mg and fentanyl 100 Mcg EBL: Minimal PROCEDURE INDICATION: The patient with low back pain and radiculitis symptoms unresponsive to conservative treatment. Fluoroscopy was used to optimize visualization of the needle placement and to maximize safety. PROCEDURE DESCRIPTION / TECHNIQUE: The patient was seen and identified in the preoperative area. Risks, benefits, complications including but not limited to infections ,bleeding ,allergic reaction to the medications ,nerve damage and not complete pain relief , and alternatives were discussed with the patient. The patient agreed to proceed with the procedure and signed the consent. IV was started, and vital signs were stable. Patient was taken to the OR and time out was completed. The patient was placed in the prone position on procedure table and a pillow was placed under the abdomen to reduce lumbar lordosis. The lumbosacral area was prepped and draped in the usual sterile fashion with ChloraPrep.Patient was closely monitored during the procedure. Conscious sedation was used during the procedure to decrease patients anxiety. Vital signs were monitered during the entire procedure. Using anterior-posterior fluoroscopy, the L5-S1 interlaminar space was identi fied and the skin over this site was marked and then infiltrated with 1% lidocaine subcutaneously. Subsequently, a 18-gauge 6"Tuohy epidural needle was inserted and advanced toward the epidural space using the Loss of resistance to air technique and guided by AP and lateral fluoroscopy. The correct needle position in the epidural space was verified with the injection of 1 mL of the water soluble contrast dye Omnipaque 180 contrast and observing an excellent epidurogram with the epidural spread of the dye, after negative aspiration for blood and CSF and in the absence of paresthesias. Again after negative aspiration, a 6 ml mixture containing 80 mg of Depo-Medrol , and 5 ml of preservative free Normal Saline, solution was injected and a washout of epidurogram was seen. Needle was withdrawn intact, skin was cleansed, and bandages were applied. patient tolerated procedure well and was transferred to PACU in stable condition. COMPLICATIONS: None
[2019-01-02] MEDS ORDERED: IV FLUID CONTINUATION 550 ML IV ONE (08:33)
[2019-01-02 08:36] VITALS: RESP 18
[2019-01-02 09:09] VITALS: BP 115/74; PULSE 65
--- NOTE | 2019-01-02 09:23 | FL ---
Fluoroscopy INDICATION: Pain FINDINGS: Fluoroscopy time: 1 seconds. Images obtained: 1. IMPRESSIONS: 1. Documentation of fluoroscopy.
== END 2019-01-02 09:15 | disposition home or self-care (01) ==
LOC: ORPAIN 07:07
PROVIDERS: ATTEND Specialist
DX: M51.16 Intervertebral disc disorders with radiculopathy, lumbar region (principal); Z79.1 Long term (current) use of non-steroidal anti-inflammatories (NSAID); Z88.5 Allergy status to narcotic agent; Z88.8 Allergy status to other drugs, medicaments and biological substances
CPT/HCPCS: 62323; 81025; J2250; J1030; J3010; Q9966

== ENCOUNTER 2019-01-14 22:53 | Emergency (ER) | payer OTHER ==
[2019-01-14] MEDS ORDERED: DIPH,PERTUS(ACELL)TETVAC-LF 0.5 ML VIAL IM ONE (23:33)
[2019-01-14] MEDS ORDERED: LIDOCAINE 1% INJ 10MG/ML (20 ML MDV) SQ ONE (23:33)
--- NOTE | 2019-01-15 00:19 | ED ---
Wound/Laceration HPI - General Chief Complaint: Wound/Laceration Stated Complaint: [facility]-Arm Lac Time Seen by Provider: 01/14/19 23:32 Source: patient Mode of arrival: ambulatory Limitations: no limitations - History of Present Illness Initial Comments: 33-year-old female patient presents to the emergency department today for evaluation of laceration to the left forearm. 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 Patient denies any use of anticoagulants or antiplatelet medications. Patient was able to get the bleeding to stop. She denies any numbness or tingling to the arm or hand. Denies any other injuries. She is unsure when her last tetanus vaccine was given. Patient denies any headache, neck pain, back pain, chest pain, shortness of breath, dizziness, weakness, abdominal pain, nausea, vomiting, or difficulties with bowel movements or urination. - Related Data Home Medications Medication Instructions Recorded Confirmed Levothyroxine Sodium [Synthroid] 50 mcg PO DAILY 05/05/14 01/14/19 traZODone HCL [Desyrel] 100 mg PO HS 04/04/15 01/14/19 Norethindrone-E.estradiol-Iron 1 tab PO HS 05/01/16 01/14/19 [Loestrin Fe 1.5-30 Tablet] Pregabalin [Lyrica] 75 mg PO QAM 05/01/16 01/14/19 busPIRone HCL 15 mg PO BID 05/01/16 01/14/19 Albuterol Inhaler [Ventolin Hfa 2 puff INHALATION RT-Q6H PRN 05/23/16 01/14/19 Inhaler] Meloxicam [Mobic] 15 mg PO DAILY 12/31/16 01/14/19 Famotidine [Pepcid] 20 mg PO BID 07/19/17 01/14/19 Topiramate [Trokendi Xr] 200 mg PO DAILY 07/19/17 01/14/19 Venlafaxine HCl [Effexor XR] 225 mg PO HS 07/19/17 01/14/19 Butalb/Acetaminophen/Caffeine 1 cap PO Q4HR PRN 08/28/17 01/14/19 [Fioricet 50-300-40 mg Capsule] Pregabalin [Lyrica] 150 mg PO HS 11/07/17 01/14/19 Methocarbamol [Robaxin-750] 750 mg PO TID PRN 11/16/17 01/14/19 HYDROcodone/APAP 7.5-325MG [[place] 1 tab PO TID PRN 03/01/18 01/14/19 7.5-325] Multivitamins, Thera [Multivitamin 1 tab PO DAILY 03/01/18 01/14/19 (formulary)] Wheat Dextrin [Benefiber] 1 dose PO DAILY 08/08/18 01/14/19 Lisdexamfetamine Dimesylate 70 mg PO QAM 11/16/18 01/14/19 [Vyvanse] Galcanezumab-Gnlm [Emgality 120 mg SQ Q30D 12/05/18 01/14/19 Syringe] Allergies Allergy/AdvReac Type Severity Reaction Status Date / Time tramadol Allergy Hallucinati Verified 01/02/19 07:20 ons valacyclovir HCl AdvReac BLURRED Verified 01/02/19 07:20 [From Valtrex] VISION Review of Systems ROS Statement: Those systems with pertinent positive or pertinent negative responses have been documented in the HPI. ROS Other: All systems not noted in ROS Statement are negative. Past Medical History Past Medical History: Asthma, Fibromyalgia, GERD/Reflux, Musculoskeletal Disorder, Skin Disorder, Sleep Apnea/CPAP/BIPAP, Thyroid Disorder Additional Past Medical History / Comment(s): Hx Migraines, DDD , IBS, NO CPAP used. HX PERFORATED DIVERTICULITIS W/ PAST Colostomy 12/2017. HEAT RASH UNDER SKIN FOLDS. GALLBLADDER PROB CURRENTLY. History of Any Multi-Drug Resistant Organisms: None Reported Past Surgical History: Bowel Resection, Breast Surgery, Cholecystectomy Additional Past Surgical History / Comment(s): Dental, Rt Breast biopsy. Colostomy 12/2017, THEN Reversal 02/2018. Cholecystectomy - -06-01 Past Anesthesia/Blood Transfusion Reactions: No Reported Reaction Past Psychological History: Anxiety, Bipolar, Depression Past Alcohol Use History: Occasional - Past Family History Mother History Unknown: Yes Family Medical History: COPD Additional Family Medical History / Comment(s): depression, anxiety Brother(s) Family Medical History: Diabetes Mellitus General Exam Limitations: no limitations General appearance: alert, in no apparent distress, other (This is a well- developed, well-nourished adult female patient in no acute distress. Vital signs upon presentation are temperature 98.8F, pulse 73, respirations 20, blood pressure 145/90, pulse ox 100% on room air.) ENT exam: Present: mucous membranes moist Respiratory exam: Present: normal lung sounds bilaterally. Absent: respiratory distress, wheezes, rales, rhonchi, stridor Cardiovascular Exam: Present: regular rate, normal rhythm, normal heart sounds. Absent: systolic murmur, diastolic murmur, rubs, gallop, clicks Extremities exam: Present: full ROM, normal capillary refill, other (2cm laceration noted to the left volar forearm. Bleeding controlled. Skin is otherwise pink, warm, dry. Cap refills less than 3 seconds. Radial pulses 2+ and equal bilaterally.). Absent: normal inspection, tenderness, pedal edema, joint swelling, calf tenderness Neurological exam: Present: alert, oriented X3, CN II-XII intact Psychiatric exam: Present: normal affect, normal mood Skin exam: Present: warm, dry, intact, normal color. Absent: rash Course Vital Signs 01/14/19 01/15/19 22:59 00:41 Temperature 98.8 F 98.6 F Pulse Rate 73 72 Respiratory 20 18 Rate Blood Pressure 145/90 136/78 O2 Sat by Pulse 100 100 Oximetry Procedures - Laceration Laceration #1 Consent Obtained: verbal consent Indication: laceration Site: upper extremity (Left volar forearm) Size (cm): 2 Description: linear Depth: simple, single layer Anesthetic Used: lidocaine 1% Anesthesia Technique: local infiltration Amount (mls): 3 Pre-repair: irrigated extensively Type of Sutures: nylon Size of Sutures: 5-0 Number of Sutures: 3 Technique: simple, interrupted Patient Tolerated Procedure: well, no complications Medical Decision Making - Medical Decision Making 33-year-old female patient presents to the emergency department today for evaluation of laceration to the left volar forearm. There is 2cm laceration noted to the left volar forearm. Bleeding controlled. This was repaired as documented. Dressing applied. She'll be discharged to follow-up with her primary care physician for recheck in 1-2 days. She is instructed to return in 7 days for suture removal. Return parameters discussed in detail. She verbalizes understanding and agrees with this plan. Disposition Clinical Impression: Laceration of left forearm Disposition: HOME SELF-CARE Condition: Good Instructions (If sedation given, give patient instructions): Care For Your Stitches (ED), Laceration (ED) Additional Instructions: Cleanse wound twice daily with warm water and antibacterial soap. Monitor for signs of infection including but not limited to redness, swelling, drainage of pus, fever, or chills. Return in 7 days to have the stitches removed. Follow- up with your primary care physician for recheck in 1-2 days. Return to the emergency department immediately for any new, worsening, or concerning symptoms. Is patient prescribed a controlled substance at d/c from ED?: No Referrals: Edgardo Inman MD [Primary Care Provider] - 1-2 days Time of Disposition: 00:19
[2019-01-15 00:42] VITALS: BP 136/78; PULSE 72; RESP 18; TEMP 98.6
== END 2019-01-15 00:33 | disposition home or self-care (01) ==
LOC: EC 22:53
DX: S51.812A Laceration without foreign body of left forearm, initial encounter (principal); J45.909 Unspecified asthma, uncomplicated; M79.7 Fibromyalgia; K21.9 Gastro-esophageal reflux disease without esophagitis; E07.9 Disorder of thyroid, unspecified; F31.9 Bipolar disorder, unspecified; F41.9 Anxiety disorder, unspecified; Z88.5 Allergy status to narcotic agent; Z88.8 Allergy status to other drugs, medicaments and biological substances; Z79.1 Long term (current) use of non-steroidal anti-inflammatories (NSAID); Z79.3 Long term (current) use of hormonal contraceptives; Z79.890 Hormone replacement therapy; Z79.899 Other long term (current) drug therapy; Z86.69 Personal history of other diseases of the nervous system and sense organs; Z97.8 Presence of other specified devices; Z23 Encounter for immunization; W27.8XXA Contact with other nonpowered hand tool, initial encounter; Y93.89 Activity, other specified; Y92.69 Other specified industrial and construction area as the place of occurrence of the external cause; Y99.0 Civilian activity done for income or pay
CPT/HCPCS: 90715; 99282; 12001; 90471; J2001

== ENCOUNTER → 2019-01-23 | Outpatient (CLI) | payer OTHER ==
[2019-01-23 14:17] VITALS: BP 118/79; PULSE 76
--- NOTE | 2019-01-23 15:06 | P.PAINPG ---
Subjective Progress Note Date: 01/23/19 This is a follow-up visit for this a 33-year-old female who was last evaluated on 11/08/2017 for severe low back pain , she is diagnosed with lumbar radiculopathy and lumbar degenerative disc disease, previously would have been lumbar epidural steroid injections 2 with, patient gets short-term benefit af ter each injection. Today her primary complaint complaint is similar to previous complaints, originating in the left low back radiating to left buttock entire left leg and down to the toes. Pain is described as sharp, aching, burning. Pain is rated today as a 6 out of 10. She does report occasional numbness and tingling in her left leg, primarily in the foot but sometimes the entire leg. She denies weakness. Her medications include [place]ner, Lyrica, Mobic. She does not report any side effects from these medications. She has had physical therapy in the past, and triceps to do her exercises on a daily basis at home. She is obese, and has been diagnosed with an eating disorder. She is taking medications for this to her psychiatrist and is gradually losing weight. Review of systems is negative for chest pain, shortness of breath, new onset weakness, numbness/tingling, abdominal pain, malaise, fever, night sweats, chills, homicidal or suicidal ideation, or bowel or bladder incontinen Physical Examinations : -Constitutiona : Cooperative , not in acute distress . -HEENT : nech : supple , no Lymphadenopathy , normal thyroid size . eyes : no ptosis , no icterus, no photophobia . ENT : normal of hearing , normal oropharynx , no Thrush . - Respiratory : Chest clear to auscultations Bilaterally , no wheezing , no Rhonchi . - Cardiovascula : regular rate and rhythem , S1 , S2 , no S3 , no S4. - Gastrointestina : abdomen soft no tenderness , bowel sounds , no organomegally . - Genitourinary : Defferred . - neurologic : Cranial nerve II to XII intact , no focal neurological deffecit . -psychatric : alert , oriented X 3 , appropriate affect , intact judgment and insight . -Lymphatic : no Lymphadenopathy . - musculoskeltal : Lumber spine moter stegnth lower extremities ,thigh and legs 5/5 Right side , 5/5 Left side deep tendon reflexes : normal Knee Jerk , normal ankle Jerk positive lumber facet Loading Test Range of motion of the lumbar spine Flexion 30 degrees, extension 10 degrees strait leg raising test , positive at 30 degree on the left side Fabere test negative RT and positive LT . Sever tenderness over the Sacroiliac joint on the Left sides Gaenslen test positive left side . Seated flexion test positive on the left side. Follow-up: For procedure= L5-S1 lumbar epidural steroid injection left paramedian approach Objective - Vital Signs Vital signs: Vital Signs Temp Pulse 76 01/23/19 14:04 Resp BP 118/79 01/23/19 14:04 Pulse Ox Intake & Output 01/22/19 01/23/19 01/23/19 18:59 06:59 18:59 Weight 120.202 kg PQRS Measure Charge Sheet Measure #130: Documentation of Current Meds in Medical Chart: Patient's medications documented in chart Measure #226: Tobacco Use: Screen & Cessation Intervention: Pt not a tobacco user Measure #111: Pneumonia Vaccination: Pneumococcal vaccine administered or previously received Measure #47: Advance Care Plan: Advance care planning discussed & documented, pt chose/unable to give Measure #412: Opioid Treatment Agreement: No documentation of signed opioid treatment agreement Measure #408: Opioid Therapy Follow-up Evaluation: Patient had NO f/u eval minimum every 3 months during opioid therapy Measure #317: Preventitive Care & Scrn High Bld Press & F/U: Normal blood pressure, f/u not required Measure #128: Body Mass Index (BMI) Screening & Follow-up: BMI documented ABOVE normal parameters - f/u documented Measure #131: Pain Assessment & Follow-up: Pain positive & plan documented, Follow-up scheduled Measure #431: Unhealthy Alcohol Use Preventative Care & Scrn: Patient not identified as an unhealthy alcohol user PQRS Narrative: Smoking Status Never smoker Blood Pressure 118/79 Pain Intensity [Left Lower 8 Back] Scale Used Numeric (1 - 10) Home Medications: Ambulatory Orders Levothyroxine Sodium [Synthroid] 50 mcg PO DAILY 05/05/14 traZODone HCL [Desyrel] 100 mg PO HS 04/04/15 Norethindrone-E.estradiol-Iron [Loestrin Fe 1.5-30 Tablet] 1 tab PO HS 05/01/16 Pregabalin [Lyrica] 75 mg PO QAM 05/01/16 busPIRone HCL 15 mg PO BID 05/01/16 Albuterol Inhaler [Ventolin Hfa Inhaler] 2 puff INHALATION RT-Q6H PRN 05/23/16 Meloxicam [Mobic] 15 mg PO DAILY 12/31/16 Famotidine [Pepcid] 20 mg PO BID 07/19/17 Topiramate [Trokendi Xr] 200 mg PO DAILY 07/19/17 Venlafaxine HCl [Effexor XR] 225 mg PO HS 07/19/17 Butalb/Acetaminophen/Caffeine [Fioricet 50-300-40 mg Capsule] 1 cap PO Q4HR PRN 08/28/17 Pregabalin [Lyrica] 150 mg PO HS 11/07/17 Methocarbamol [Robaxin-750] 750 mg PO TID PRN 11/16/17 HYDROcodone/APAP 7.5-325MG [[place] 7.5-325] 1 tab PO TID PRN 03/01/18 Multivitamins, Thera [Multivitamin (formulary)] 1 tab PO DAILY 03/01/18 Wheat Dextrin [Benefiber] 1 dose PO DAILY 08/08/18 Lisdexamfetamine Dimesylate [Vyvanse] 70 mg PO QAM 11/16/18 Galcanezumab-Gnlm [Emgality Syringe] 120 mg SQ Q30D 12/05/18 rOPINIRole HCL [Requip] 0.5 mg PO 01/23/19 rOPINIRole HCL [Requip] 0.5 mg PO DAILY 01/23/19 Controlled Substance Measures - Controlled Substance Measures Is patient prescribed a controlled substance at discharge?: No
== END | disposition home or self-care (01) ==
LOC: PNWHC3 13:52
PROVIDERS: ATTEND Specialist
DX: M51.16 Intervertebral disc disorders with radiculopathy, lumbar region (principal); F50.9 Eating disorder, unspecified; E66.9 Obesity, unspecified; Z68.41 Body mass index [BMI] 40.0-44.9, adult; Z79.3 Long term (current) use of hormonal contraceptives; Z79.1 Long term (current) use of non-steroidal anti-inflammatories (NSAID); Z79.891 Long term (current) use of opiate analgesic; Z79.899 Other long term (current) drug therapy
CPT/HCPCS: 99211

== ENCOUNTER → 2019-01-28 | Outpatient (CLI) | payer OTHER ==
--- NOTE | 2019-01-28 18:33 | PN ---
PROGRESS NOTE Mary is 33 coming in to discuss results of sleep study. The patient was referred to me for hypersomnia thinking that she may have an underlying obstructive sleep apnea. I completed a sleep study on this patient. Sleep study was done on 10/30/2018. In summary, the patient had a delayed sleep onset of more than 100 minutes. After falling sleep, she did not demonstrate any significant sleep breathing disorder and AHI was less than 5. There was no nocturnal oxygen desaturation. There was some periodic limb movements. Note that the patient has fibromyalgia and she has also binge eating disorder. She was recently evaluated by her primary care physician Dr. Inman. Vyvanse dose was increased up to 70 mg and it improved with her binge eating. She is also on a combination of BuSpar for anxiety. Trazodone for sleep induction at a dose of 100 mg at bedtime and she is also taking Lyrica 75 mg in the morning and 150 mg at nighttime. [place] also there for pain control. She is on Synthroid for hypothyroidism. She is currently working for [employer] and she is very active and she has lost about 14 pounds since her last evaluation. Her weight was around 285 pounds and currently she is down to 271. Overall she is feeling better. Seems to be much more alert and awake during the day compared to last evaluation in my office. REVIEW OF SYSTEMS: Fourteen-point review of system was done. Positive findings are mentioned in history of present illness. Positive for weight loss. There is improvement in her symptoms of tiredness and sleepiness during the day and she is able to function much better as the patient is losing weight. PHYSICAL EXAMINATION: Vitals: Temperature 98.8, pulse is 88, respirations 16, BMI is 43.7, height is 5 feet 6 inches and saturation 96% on room air. Weight is 171. General appearance: Obese, calm, comfortable. Head is atraumatic, normocephalic. NECK: Supple. No JVD. No goiter or masses. LUNGS: Clear to auscultation. HEART: Sounds regular rate and rhythm. Normal S1, S2. No S3, no murmurs. ABDOMEN: Soft, nontender. No organomegaly. EXTREMITIES: No edema. No cyanosis or clubbing. NEUROLOGIC: She is awake and alert. There are no focal neurological deficits. PSYCHIATRIC: Positive for chronic anxiety. IMPRESSION: 1. Primary snoring. No evidence of any sleep breathing disorder. AHI is 3.6. 2. Obesity with interval weight loss in order of 14 pounds. 3. Insomnia, which is a comorbid insomnia related to comorbidity especially with fibromyalgia. The patient had delayed sleep onset and she has difficulties initiating sleep. The patient is currently on trazodone. 4. Periodic limb movements, mild currently on Requip, this was initiated to her by her primary care physician. 5. Binge eating disorder. Currently on Vyvanse. 6. Hypothyroidism on treatment with Synthroid. 7. Chronic anxiety on BuSpar. 8. Fibromyalgia, currently on a combination of Clearbrook and Lyrica. 9. Obesity with interval weight loss. PLAN: 1. No need for CPAP therapy. 2. Current medication treatment is very appropriate as the patient is being treated for various comorbidities affecting her sleep in general. Her pain is under good control. She is following good sleep hygiene measures and she is taking her anxiolytics. 3. Continue trazodone for sleep induction and maintenance. 4. Implement good sleep hygiene measures. No need for CPAP therapy. 5. We will refer back to the primary care physician. MMODL / IJN: [id number] /
== END | disposition home or self-care (01) ==
LOC: SLEEP 15:39
PROVIDERS: ATTEND Internal Medicine Critical Care Medicine
DX: R06.83 Snoring (principal); E66.9 Obesity, unspecified; M79.7 Fibromyalgia; F50.9 Eating disorder, unspecified; Z68.41 Body mass index [BMI] 40.0-44.9, adult; E03.9 Hypothyroidism, unspecified; F41.8 Other specified anxiety disorders; G47.61 Periodic limb movement disorder; Z79.891 Long term (current) use of opiate analgesic; Z79.899 Other long term (current) drug therapy

== ENCOUNTER 2019-01-30 06:36 | Day surgery (SDC) | payer OTHER ==
[2019-01-29 10:26] VITALS: BMI 42.3
[2019-01-30] MEDS ORDERED: LIDOCAINE 1% 20 ML VIAL (10MG/ML) FOR IV START INTRADERMA ONE (06:53)
[2019-01-30 07:03] VITALS: TEMP 97.8
[2019-01-30] MEDS ORDERED: IV FLUID CONTINUATION 1,000 ML IV ONE (07:59)
[2019-01-30 08:01] VITALS: RESP 18
--- NOTE | 2019-01-30 08:02 | P.PN ---
Progress Note - Text Progress Note Date: 01/30/19 PREOPERATIVE DIAGNOSIS: Lumbar radicular pain POSTOPERATIVE DIAGNOSIS: Same PROCEDURE Lumbar epidural steroid injection under fluoroscopic guidance at the L5 S1 left paramedian level. ANESTHESIA: Local with 1% lidocaine 3 ml; moderate sedation with 2 mg of Versed and 100 mg fentanyl EBL: Minimal PROCEDURE INDICATION: Lumbar radicular pain. PROCEDURE DESCRIPTION / TECHNIQUE: The patient was seen and identified in the preoperative area. Risks, benefits, complications including but not limited to infections ,bleeding ,allergic reaction to the medications ,nerve damage and not complete pain relief , and alternatives were discussed with the patient. The patient agreed to proceed with the procedure and signed the consent. IV was started, and vital signs were stable. Patient was taken to the OR and time out was completed. The patient was placed in the prone position on procedure table and a pillow was placed under the abdomen to reduce lumbar lordosis. The lumbosacral area was prepped and draped in the usual sterile fashion. The patient was closely monitored during the procedure. Conscious sedation was used during the procedure to decrease patients anxiety. Vital signs was monitored during the entire procedure. Using anterior-posterior fluoroscopy, the L5-S1 interlaminar space was identified and the skin over this site was marked and then infiltrated with 1% lidocaine subcutaneously. Subsequently, a 20-gauge Tuohy epidural needle was inserted and advanced toward the epidural space using the loss of resistance technique and guided by AP and lateral fluoroscopy. The correct needle position in the epidural space was verified. Unfortunately the first injection with contrast was posterior to the epidural space. The needle was then further advanced until the needle was essentially hubbed and loss of resistance was achieved.After negative aspiration, a solution containing 80 mg of Depo-Medrol, 2 mL of preservative-free normal saline, 2 cc of 1% lidocaine was injected. The needle was withdrawn intact, skin was cleansed, and bandages were applied. COMPLICATIONS: None DISPOSITION / PLANS: The patient was returned to the supine position and transferred to the recovery area in a stable condition for observation. There was no evidence of lower extremity motor or sensory deficit after the procedure. Patient was discharged from the recovery room after meeting discharge criteria. Home discharge instructions were given to the patient by the staff. Follow up plan: In clinic, she has had a total of 3 epidurals.
[2019-01-30 08:18] VITALS: BP 104/67; PULSE 60
--- NOTE | 2019-01-30 09:26 | FL ---
EXAMINATION TYPE: FL guided pain mgmt statistic DATE OF EXAM: 01/30/2019 HISTORY: Pain Lumbar epidural injection was performed. 17 seconds of fluoroscopic time was provided by the departm ent of radiology. 2 images were provided for documentation purposes.
== END 2019-01-30 08:29 | disposition home or self-care (01) ==
LOC: ORPAIN 06:36
PROVIDERS: ATTEND Student in an Organized Health Care Education/Training Program
DX: M51.16 Intervertebral disc disorders with radiculopathy, lumbar region (principal); E66.9 Obesity, unspecified; F50.9 Eating disorder, unspecified; Z79.1 Long term (current) use of non-steroidal anti-inflammatories (NSAID); Z79.3 Long term (current) use of hormonal contraceptives; Z79.890 Hormone replacement therapy; Z79.899 Other long term (current) drug therapy; Z88.6 Allergy status to analgesic agent; Z88.8 Allergy status to other drugs, medicaments and biological substances; Z68.41 Body mass index [BMI] 40.0-44.9, adult
CPT/HCPCS: 81025; 62323; J2250; J1030; J3010; Q9966

== ENCOUNTER → 2019-02-27 | Outpatient (CLI) | payer OTHER ==
[2019-02-27 13:58] VITALS: BP 135/89; PULSE 89; RESP 16
--- NOTE | 2019-02-27 14:24 | P.PAINPG ---
Subjective Progress Note Date: 02/27/19 This is a follow-up visit for this a 33-year-old female , she is diagnosed with lumbar radiculopathy and lumbar degenerative disc disease,would have been lumbar epidural steroid injections 3 with, patient gets short-term benefit after each injection. Today her primary complaint complaint is similar to previous complaints, originating in the left low back radiating to left buttock entire left leg and down to the toes. Pain is described as sharp, aching, burning. Pain is rated today as a 6 out of 10. She does report occasional numbness and tingling in her left leg, primarily in the foot but sometimes the entire leg. She denies weakness. Her medications include Lyrica 75 mg every morning and 150 mg daily at bedtime, Spalding 7.5/325 3 times a day, Mobic 15 mg daily. She does not report any side effects from these medications. She has had physical therapy in the past, She is obese, and has been diagnosed with an eating disorder. She is taking medications for this to her psychiatrist and is gradually losing weight. Review of systems is negative for chest pain, shortness of breath, new onset weakness, numbness/tingling, abdominal pain, malaise, fever, night sweats, chills, homicidal or suicidal ideation, or bowel or bladder incontinen Objective - Vital Signs Vital signs: Vital Signs Temp Pulse 89 02/27/19 13:50 Resp 16 02/27/19 13:50 BP 135/89 02/27/19 13:50 Pulse Ox 99 02/27/19 13:50 - Exam -Constitutiona : Cooperative , not in acute distress . -HEENT : nech : supple , no Lymphadenopathy , normal thyroid size . eyes : no ptosis , no icterus, no photophobia . - neurologic : Cranial nerve II to XII intact , no focal neurological deffecit . -psychatric : alert , oriented X 3 , appropriate affect , intact judgment and insight . -Lymphatic : no Lymphadenopathy . - musculoskeltal : Lumber spine moter stegnth lower extremities ,thigh and legs 5/5 Right side , 5/5 Left side deep tendon reflexes : normal Knee Jerk , normal ankle Jerk positive lumber facet Loading Test Range of motion of the lumbar spine Flexion 30 degrees, extension 10 degrees strait leg raising test , positive at 30 degree on the left side Fabere test negative RT and positive LT . Assessment and Plan Plan: Assessment and plan= lumbar radiculopathy. Lumbar degenerative disc disease Patient continued to have pain after lumbar epidural steroid injections 3 She is currently on Lyrica 75 mg every morning and 50 every afternoon and more breaks 15 mg daily and Spalding 7.5/325 3 times a day He denies any side effect of the medication she denies any excessive drowsiness or sleepiness and she reported the current medication is helping to control the pain and she is getting prescription refills from her primary care, discussed with the patient the option of referring her to physical therapy for evaluation and treatment but she reported that she cannot do it right now because she had to take care of her mom she is critically ill, and she is currently under hospice care, after that she will do physical therapy and she will follow up with the pain clinic when necessary Time with Patient: Less than 30 PQRS Measure Charge Sheet Measure #130: Documentation of Current Meds in Medical Chart: Patient's medications documented in chart Measure #226: Tobacco Use: Screen & Cessation Intervention: Pt not a tobacco u ser Measure #111: Pneumonia Vaccination: Pneumococcal vaccine administered or previously received Measure #47: Advance Care Plan: Advance care planning discussed & documented, pt chose/unable to give Measure #412: Opioid Treatment Agreement: No documentation of signed opioid treatment agreement Measure #408: Opioid Therapy Follow-up Evaluation: Patient had NO f/u eval minimum every 3 months during opioid therapy Measure #317: Preventitive Care & Scrn High Bld Press & F/U: Normal blood pressure, f/u not required Measure #128: Body Mass Index (BMI) Screening & Follow-up: BMI documented ABOVE normal parameters - f/u documented Measure #131: Pain Assessment & Follow-up: Pain positive & plan documented, Follow-up scheduled Measure #431: Unhealthy Alcohol Use Preventative Care & Scrn: Patient not identified as an unhealthy alcohol user PQRS Narrative: Smoking Status Never smoker Blood Pressure 135/89 Pain Intensity [Left Lower 6 Back] Scale Used Numeric (1 - 10) Home Medications: Ambulatory Orders Levothyroxine Sodium [Synthroid] 50 mcg PO DAILY 05/05/14 traZODone HCL [Desyrel] 100 mg PO HS 04/04/15 Norethindrone-E.estradiol-Iron [Loestrin Fe 1.5-30 Tablet] 1 tab PO HS 05/01/16 Pregabalin [Lyrica] 75 mg PO QAM 05/01/16 busPIRone HCL 15 mg PO BID 05/01/16 Albuterol Inhaler [Ventolin Hfa Inhaler] 2 puff INHALATION RT-Q6H PRN 05/23/16 Meloxicam [Mobic] 15 mg PO DAILY 12/31/16 Famotidine [Pepcid] 20 mg PO BID 07/19/17 Topiramate [Trokendi Xr] 200 mg PO DAILY 07/19/17 Venlafaxine HCl [Effexor XR] 225 mg PO HS 07/19/17 Butalb/Acetaminophen/Caffeine [Fioricet 50-300-40 mg Capsule] 1 cap PO Q4HR PRN 08/28/17 Pregabalin [Lyrica] 150 mg PO HS 11/07/17 Methocarbamol [Robaxin-750] 750 mg PO TID PRN 11/16/17 HYDROcodone/APAP 7.5-325MG [Spalding 7.5-325] 1 tab PO TID PRN 03/01/18 Multivitamins, Thera [Multivitamin (formulary)] 1 tab PO DAILY 03/01/18 Wheat Dextrin [Benefiber] 1 dose PO DAILY 08/08/18 Lisdexamfetamine Dimesylate [Vyvanse] 70 mg PO QAM 11/16/18 Galcanezumab-Gnlm [Emgality Syringe] 120 mg SQ Q30D 12/05/18 rOPINIRole HCL [Requip] 0.5 mg PO DAILY 01/23/19 Controlled Substance Measures - Controlled Substance Measures Is patient prescribed a controlled substance at discharge?: No
== END | disposition home or self-care (01) ==
LOC: PNWHC3 13:35
PROVIDERS: ATTEND Specialist
DX: M51.16 Intervertebral disc disorders with radiculopathy, lumbar region (principal); Z79.890 Hormone replacement therapy; Z79.1 Long term (current) use of non-steroidal anti-inflammatories (NSAID); Z79.891 Long term (current) use of opiate analgesic; Z79.899 Other long term (current) drug therapy
CPT/HCPCS: 99211

== ENCOUNTER 2019-05-14 17:27 | Emergency (ER) | payer OTHER ==
[2019-05-14 17:35] VITALS: BP 115/80; PULSE 64; RESP 20; TEMP 98.4
[2019-05-14] MEDS ORDERED: KETOROLAC 60 MG/2 ML VIAL IM STA (17:54)
--- NOTE | 2019-05-14 17:55 | ED ---
Back Pain HPI - General Chief Complaint: Back Pain/Injury Stated Complaint: Back pain Time Seen by Provider: 05/14/19 17:44 Source: patient, RN notes reviewed Limitations: no limitations - History of Present Illness Initial Comments: 34-year-old female presents emergency Department with chief complaint of back pain. She is chronic back pain in which she was seen Dr. Gilmore had injections. Patient states she is recently DC'd because she was not taking her pain meds and had negative drug screens. Patient states that she still does have some Conesus left. Patient denies any bowel bladder incontinence or retention or saddle anesthesias. She states pain is in her low back radiates to the left. No difficulty in ambulating no focal weakness. Patient states that she's had pain like this in the past does not the worse of her pain. - Related Data Home Medications Medication Instructions Recorded Confirmed Levothyroxine Sodium [Synthroid] 50 mcg PO DAILY 05/05/14 02/27/19 traZODone HCL [Desyrel] 100 mg PO HS 04/04/15 02/27/19 Norethindrone-E.estradiol-Iron 1 tab PO HS 05/01/16 02/27/19 [Loestrin Fe 1.5-30 Tablet] Pregabalin [Lyrica] 75 mg PO QAM 05/01/16 02/27/19 busPIRone HCL 15 mg PO BID 05/01/16 02/27/19 Albuterol Inhaler [Ventolin Hfa 2 puff INHALATION RT-Q6H PRN 05/23/16 02/27/19 Inhaler] Meloxicam [Mobic] 15 mg PO DAILY 12/31/16 02/27/19 Famotidine [Pepcid] 20 mg PO BID 07/19/17 02/27/19 Topiramate [Trokendi Xr] 200 mg PO DAILY 07/19/17 02/27/19 Venlafaxine HCl [Effexor XR] 225 mg PO HS 07/19/17 02/27/19 Butalb/Acetaminophen/Caffeine 1 cap PO Q4HR PRN 08/28/17 02/27/19 [Fioricet 50-300-40 mg Capsule] Pregabalin [Lyrica] 150 mg PO HS 11/07/17 02/27/19 Methocarbamol [Robaxin-750] 750 mg PO TID PRN 11/16/17 02/27/19 HYDROcodone/APAP 7.5-325MG [Conesus 1 tab PO TID PRN 03/01/18 02/27/19 7.5-325] Multivitamins, Thera [Multivitamin 1 tab PO DAILY 03/01/18 02/27/19 (formulary)] Wheat Dextrin [Benefiber] 1 dose PO DAILY 08/08/18 02/27/19 Lisdexamfetamine Dimesylate 70 mg PO QAM 11/16/18 02/27/19 [Vyvanse] Galcanezumab-Gnlm [Emgality 120 mg SQ Q30D 12/05/18 02/27/19 Syringe] rOPINIRole HCL [Requip] 0.5 mg PO DAILY 01/23/19 02/27/19 Previous Rx's Medication Instructions Recorded predniSONE 50 mg PO DAILY #5 tab 05/14/19 Allergies Allergy/AdvReac Type Severity Reaction Status Date / Time tramadol Allergy Hallucinati Verified 05/14/19 17:36 ons valacyclovir HCl AdvReac BLURRED Verified 05/14/19 17:36 [From Valtrex] VISION Review of Systems ROS Statement: Those systems with pertinent positive or pertinent negative responses have been documented in the HPI. ROS Other: All systems not noted in ROS Statement are negative. Past Medical History Past Medical History: Asthma, Fibromyalgia, GERD/Reflux, Musculoskeletal Disorder, Skin Disorder, Sleep Apnea/CPAP/BIPAP, Thyroid Disorder Additional Past Medical History / Comment(s): Hx Migraines, DDD , IBS, NO CPAP used. HX PERFORATED DIVERTICULITIS W/ PAST Colostomy 12/2017. HEAT RASH UNDER SKIN FOLDS. GALLBLADDER PROB CURRENTLY. History of Any Multi-Drug Resistant Organisms: None Reported Past Surgical History: Bowel Resection, Breast Surgery, Cholecystectomy Additional Past Surgical History / Comment(s): Dental, Rt Breast biopsy. Colostomy 12/2017, THEN Reversal 02/2018. Cholecystectomy - 08-12-18 Past Anesthesia/Blood Transfusion Reactions: No Reported Reaction Past Psychological History: Anxiety, Bipolar, Depression Smoking Status: Never smoker Past Alcohol Use History: Occasional Past Drug Use History: None Reported - Past Family History Mother History Unknown: Yes Family Medical History: COPD Additional Family Medical History / Comment(s): depression, anxiety Brother(s) Family Medical History: Diabetes Mellitus General Exam Limitations: no limitations General appearance: alert, in no apparent distress Head exam: Present: atraumatic, normocephalic, normal inspection Eye exam: Present: normal appearance, PERRL, EOMI. Absent: scleral icterus, conjunctival injection, periorbital swelling ENT exam: Present: normal exam, normal oropharynx, mucous membranes moist Neck exam: Present: normal inspection, full ROM. Absent: tenderness, meningismus, lymphadenopathy Respiratory exam: Present: normal lung sounds bilaterally. Absent: respiratory distress, wheezes, rales, rhonchi, stridor Cardiovascular Exam: Present: regular rate, normal rhythm, normal heart sounds. Absent: systolic murmur, diastolic murmur, rubs, gallop, clicks GI/Abdominal exam: Present: soft, normal bowel sounds. Absent: distended, tenderness, guarding, rebound, rigid Back exam: Present: normal inspection, full ROM, tenderness, paraspinal tenderness. Absent: CVA tenderness (R), CVA tenderness (L), vertebral tenderness Neurological exam: Present: alert, oriented X3, reflexes normal. Absent: motor sensory deficit Course Vital Signs 05/14/19 17:32 Temperature 98.4 F Pulse Rate 64 Respiratory 20 Rate Blood Pressure 115/80 O2 Sat by Pulse 98 Oximetry Medical Decision Making - Medical Decision Making Patient has no red flag symptoms she has acute on chronic back pain patient prescribed a steroid she does have pain medication which she is advised to take and follow-up with her PCP tomorrow return for any worsening symptoms. Disposition Clinical Impression: Acute exacerbation of chronic low back pain Disposition: HOME SELF-CARE Condition: Stable Instructions (If sedation given, give patient instructions): Acute Low Back Pain (ED) Additional Instructions: Please return to the Emergency Department if symptoms worsen or any other concerns. Prescriptions: predniSONE 50 mg PO DAILY #5 tab Is patient prescribed a controlled substance at d/c from ED?: No Referrals: Edgardo Inman MD [Primary Care Provider] - 1-2 days Time of Disposition: 17:55
== END 2019-05-14 18:04 | disposition home or self-care (01) ==
LOC: EC 17:27
DX: G89.29 Other chronic pain (principal); M54.5 Low back pain; J45.909 Unspecified asthma, uncomplicated; K21.9 Gastro-esophageal reflux disease without esophagitis; M79.7 Fibromyalgia; G47.30 Sleep apnea, unspecified; Z99.89 Dependence on other enabling machines and devices; E07.9 Disorder of thyroid, unspecified; F41.9 Anxiety disorder, unspecified; F32.9 Major depressive disorder, single episode, unspecified; Z79.890 Hormone replacement therapy; Z79.3 Long term (current) use of hormonal contraceptives; Z79.1 Long term (current) use of non-steroidal anti-inflammatories (NSAID); Z79.899 Other long term (current) drug therapy; Z88.5 Allergy status to narcotic agent; Z88.8 Allergy status to other drugs, medicaments and biological substances
CPT/HCPCS: 99283; 96372; J1885

== ENCOUNTER 2019-06-18 22:45 | Emergency (ER) | payer OTHER ==
[2019-06-18 23:14] VITALS: TEMP 98
[2019-06-18] MEDS ORDERED: BACITRACIN 500 UNIT/GM OINT 28.4 GM TUBE TOPICAL ONE (23:47)
--- NOTE | 2019-06-18 23:51 | ED ---
General Adult HPI - General Chief complaint: ENT Stated complaint: Insect Bite Rt Shoulder Time Seen by Provider: 06/18/19 23:28 Source: patient Mode of arrival: ambulatory Limitations: no limitations - History of Present Illness Initial comments: This patient is a 34-year-old woman who presents to be evaluated for a skin nodule to the left side of her neck/shoulder. She noticed onset about 1-2 days ago and then felt there may have been some swelling developing today. She also said she may have had a little bit of sore throat earlier. Patient denies fever or chills. No difficulty with speech or swallowing. No dyspnea. -: hour(s) Location: neck Radiation: non-radiation Improves with: none Worsens with: none Associated Symptoms: denies other symptoms - Related Data Home Medications Medication Instructions Recorded Confirmed Levothyroxine Sodium [Synthroid] 50 mcg PO DAILY 05/05/14 02/27/19 traZODone HCL [Desyrel] 100 mg PO HS 04/04/15 02/27/19 Norethindrone-E.estradiol-Iron 1 tab PO HS 05/01/16 02/27/19 [Loestrin Fe 1.5-30 Tablet] Pregabalin [Lyrica] 75 mg PO QAM 05/01/16 02/27/19 busPIRone HCL 15 mg PO BID 05/01/16 02/27/19 Albuterol Inhaler [Ventolin Hfa 2 puff INHALATION RT-Q6H PRN 05/23/16 02/27/19 Inhaler] Meloxicam [Mobic] 15 mg PO DAILY 12/31/16 02/27/19 Famotidine [Pepcid] 20 mg PO BID 07/19/17 02/27/19 Topiramate [Trokendi Xr] 200 mg PO DAILY 07/19/17 02/27/19 Venlafaxine HCl [Effexor XR] 225 mg PO HS 07/19/17 02/27/19 Butalb/Acetaminophen/Caffeine 1 cap PO Q4HR PRN 08/28/17 02/27/19 [Fioricet 50-300-40 mg Capsule] Pregabalin [Lyrica] 150 mg PO HS 11/07/17 02/27/19 Methocarbamol [Robaxin-750] 750 mg PO TID PRN 11/16/17 02/27/19 HYDROcodone/APAP 7.5-325MG [[place] 1 tab PO TID PRN 03/01/18 02/27/19 7.5-325] Multivitamins, Thera [Multivitamin 1 tab PO DAILY 03/01/18 02/27/19 (formulary)] Wheat Dextrin [Benefiber] 1 dose PO DAILY 08/08/18 02/27/19 Lisdexamfetamine Dimesylate 70 mg PO QAM 11/16/18 02/27/19 [Vyvanse] Galcanezumab-Gnlm [Emgality 120 mg SQ Q30D 12/05/18 02/27/19 Syringe] rOPINIRole HCL [Requip] 0.5 mg PO DAILY 01/23/19 02/27/19 Previous Rx's Medication Instructions Recorded predniSONE 50 mg PO DAILY #5 tab 05/14/19 Clindamycin Topical Soln 1 applic TOPICAL BID #25 ml 06/19/19 [Cleocin-T Topical Soln] Allergies Allergy/AdvReac Type Severity Reaction Status Date / Time tramadol Allergy Hallucinati Verified 06/18/19 23:14 ons valacyclovir HCl AdvReac BLURRED Verified 06/18/19 23:14 [From Valtrex] VISION Review of Systems ROS Statement: Those systems with pertinent positive or pertinent negative responses have been documented in the HPI. ROS Other: All systems not noted in ROS Statement are negative. Constitutional: Denies: fever, chills ENT: Denies: throat pain, congestion Respiratory: Denies: cough, dyspnea Cardiovascular: Denies: chest pain, palpitations Skin: Reports: as per HPI, lesions Neurological: Denies: headache Past Medical History Past Medical History: Asthma, Fibromyalgia, GERD/Reflux, Musculoskeletal Disorder, Skin Disorder, Sleep Apnea/CPAP/BIPAP, Thyroid Disorder Additional Past Medical History / Comment(s): Hx Migraines, DDD , IBS, NO CPAP u sed. HX PERFORATED DIVERTICULITIS W/ PAST Colostomy 12/2017. HEAT RASH UNDER SKIN FOLDS. GALLBLADDER PROB CURRENTLY. History of Any Multi-Drug Resistant Organisms: None Reported Past Surgical History: Bowel Resection, Breast Surgery, Cholecystectomy Additional Past Surgical History / Comment(s): Dental, Rt Breast biopsy. Colostomy 12/2017, THEN Reversal 02/2018. Cholecystectomy - 08-12-18 Past Anesthesia/Blood Transfusion Reactions: No Reported Reaction Past Psychological History: Anxiety, Bipolar, Depression Smoking Status: Never smoker Past Alcohol Use History: Occasional Past Drug Use History: None Reported - Past Family History Mother History Unknown: Yes Family Medical History: COPD Additional Family Medical History / Comment(s): depression, anxiety Brother(s) Family Medical History: Diabetes Mellitus General Exam Limitations: no limitations General appearance: alert, in no apparent distress Head exam: Present: atraumatic, normocephalic Eye exam: Present: normal appearance. Absent: scleral icterus, conjunctival injection ENT exam: Present: normal oropharynx Neck exam: Present: normal inspection, full ROM. Absent: tenderness, meningismus Respiratory exam: Present: normal lung sounds bilaterally. Absent: respiratory distress, wheezes, rales, rhonchi, stridor Cardiovascular Exam: Present: regular rate, normal rhythm, normal heart sounds. Absent: systolic murmur, diastolic murmur, rubs, gallop Skin exam: Present: warm, dry, intact, normal color, other (She does have 1 papular comedone overlying the left trapezius area. There is no real depth to the lesion. No evidence of abscess. No erythema or warmth.) Course Vital Signs 06/18/19 06/19/19 23:11 01:25 Temperature 98.0 F Pulse Rate 63 66 Respiratory 20 18 Rate Blood Pressure 123/77 101/63 O2 Sat by Pulse 100 98 Oximetry Medical Decision Making - Lab Data Lab Results 06/18/19 Range/Units 23:57 Group A Strep Rapid Negative (Negative) Disposition Clinical Impression: Pustule Disposition: HOME SELF-CARE Condition: Good Instructions (If sedation given, give patient instructions): Antiacne Antibacterial (On the skin) Prescriptions: Clindamycin Topical Soln [Cleocin-T Topical Soln] 1 applic TOPICAL BID #25 ml Is patient prescribed a controlled substance at d/c from ED?: No Referrals: Edgardo Inman MD [Primary Care Provider] - 1-2 days
[2019-06-19 01:25] VITALS: BP 101/63; PULSE 66; RESP 18
== END 2019-06-19 01:25 | disposition home or self-care (01) ==
LOC: EC 22:45
DX: L08.9 Local infection of the skin and subcutaneous tissue, unspecified (principal); F41.9 Anxiety disorder, unspecified; F31.9 Bipolar disorder, unspecified; J45.909 Unspecified asthma, uncomplicated; M79.7 Fibromyalgia; K21.9 Gastro-esophageal reflux disease without esophagitis; E07.9 Disorder of thyroid, unspecified; K58.9 Irritable bowel syndrome, unspecified; Z79.51 Long term (current) use of inhaled steroids; Z79.890 Hormone replacement therapy; Z79.1 Long term (current) use of non-steroidal anti-inflammatories (NSAID); Z79.899 Other long term (current) drug therapy; Z88.5 Allergy status to narcotic agent; Z88.8 Allergy status to other drugs, medicaments and biological substances; Z87.19 Personal history of other diseases of the digestive system; Z98.890 Other specified postprocedural states; Z90.49 Acquired absence of other specified parts of digestive tract
CPT/HCPCS: 87081; 87430; 99283

== ENCOUNTER → 2019-07-24 | Outpatient (CLI) | payer OTHER ==
[2019-07-24 14:43] LABS: Basophils % (A) 1 %; Eosinophils # (A) 0.1 k/uL (0-0.7); Eosinophils % (A) 1 %; HCT 42.8 % (34.0-46.0); HGB 13.5 gm/dL (11.4-16.0); Lymphocytes # (A) 2.1 k/uL (1.0-4.8); Lymphocytes % (A) 25 %; MCH 28.5 pg (25.0-35.0); MCHC 31.5 g/dL (31.0-37.0); MCV 90.4 fL (80.0-100.0); Mean Platelet Volume 8.1; Monocytes # (A) 0.4 k/uL (0-1.0); Monocytes % (A) 5 %; Neutrophils # (A) 5.5 k/uL (1.3-7.7); Neutrophils % (A) 66 %; Platelet Count 281 k/uL (150-450); RBC 4.73 m/uL (3.80-5.40); RDW 13.1 % (11.5-15.5); WBC 8.3 k/uL (3.8-10.6)
== END ==
LOC: LABPAT 13:52
PROVIDERS: ATTEND Surgery
DX: Z01.818 Encounter for other preprocedural examination (principal); K43.2 Incisional hernia without obstruction or gangrene; D64.9 Anemia, unspecified; F17.200 Nicotine dependence, unspecified, uncomplicated
CPT/HCPCS: 36415; 85025; 86850; 86900; 86901

== ENCOUNTER 2019-07-29 08:05 | Observation (INO) | payer OTHER ==
[2019-07-28 08:29] VITALS: BMI 40.7
[~2019-07-29 08:05] MED LIST changes: +DEXAMETHASONE SOD PHOSPHATE 10 MG/ML 1 ML VIAL IV ONE; +HEPARIN SODIUM,PORCINE 5,000 UNIT/ML 1 ML VIAL SQ ONE; -LACTATED RINGERS 1,000 ML IV SCH; +MIDAZOLAM 2 MG/2 ML VIAL IV PRN; +ONDANSETRON 4 MG/2 ML VIAL IVP ONE; +SCOPOLAMINE 1.5MG/72HR PATCH TRANSDERM ONE; +fentaNYL (PF) 50 MCG/ML 2 ML AMP IV PRN
[2019-07-29] MEDS ORDERED: LIDOCAINE 1% (10MG/ML) FOR IV START INTRADERMA ONE (09:48)
[2019-07-29] MEDS: LACTATED RINGERS 1,000 ML IV SCH ×2 (09:55→14:16)
[2019-07-29] MEDS ORDERED: fentaNYL (PF) 50 MCG/ML 2 ML AMP IV ONE (09:57)
--- NOTE | 2019-07-29 10:05 | P.ANPRN ---
Procedure Note - Anesthesia - Nerve Block Performed Bilateral Rectus Abdominis Single Time Out Performed: Yes Date of Procedure: 07/29/19 Procedure Start Time: 09:55 Procedure Stop Time: 10:06 Location of Patient: PreOp Indication: Acute Post-Operative Pain, Requested by Surgeon Specifically requested for management of pain by DrGladis: Brayan Meadows Sedation Type: Sedate with meaningful contact maintained Preparation: Sterile Prep Position: Supine Catheter: None Needle Types: Facet Needle Gauge: 20 Ultrasound used to visualize needle placement: Yes Ultrasound used to observe medication spread: Yes Injectate: 0.5% Ropivacaine (see comment for volume) (30 mls) Blood Aspirated: No Pain Paresthesia on Injection Noted: No Resistance on Injection: Normal Image Stored and Saved: Yes Events: Uneventful and Well Tolerated ([id number])
--- NOTE | 2019-07-29 10:51 | P.GSHP ---
History of Present Illness H&P Date: 07/29/19 Chief Complaint: Incisional hernia This is a 34-year-old female who has developed an incisional hernia after reversal of colostomy. Patient felt an incisional hernia the superior portion of her scar. She presents today for laparoscopic robotic-assisted repair. Past Medical History Past Medical History: Asthma, Fibromyalgia, GERD/Reflux, Musculoskeletal Disorder, Sleep Apnea/CPAP/BIPAP, Thyroid Disorder Additional Past Medical History / Comment(s): Hx Migraines, DDD , IBS, NO CPAP used. HX PERFORATED DIVERTICULITIS W/ PAST Colostomy 12/2017. History of Any Multi-Drug Resistant Organisms: None Reported Past Surgical History: Bowel Resection, Breast Surgery, Cholecystectomy Additional Past Surgical History / Comment(s): Dental, Rt Breast biopsy. Colostomy 12/2017, THEN Reversal 02/2018. Cholecystectomy - 08-12-18 Past Anesthesia/Blood Transfusion Reactions: No Reported Reaction Smoking Status: Never smoker - Past Family History Mother History Unknown: Yes Family Medical History: COPD Additional Family Medical History / Comment(s): depression, anxiety Brother(s) Family Medical History: Diabetes Mellitus Medications and Allergies Home Medications Medication Instructions Recorded Confirmed Type Levothyroxine Sodium [Synthroid] 50 mcg PO DAILY 05/05/14 07/29/19 History traZODone HCL [Desyrel] 100 mg PO HS 04/04/15 07/29/19 History Norethindrone-E.estradiol-Iron 1 tab PO HS 05/01/16 07/29/19 History [Loestrin Fe 1.5-30 Tablet] Albuterol Inhaler [Ventolin Hfa 2 puff INHALATION RT-Q6H PRN 05/23/16 07/29/19 History Inhaler] Meloxicam [Mobic] 15 mg PO DAILY 12/31/16 07/29/19 History Topiramate [Trokendi Xr] 200 mg PO DAILY 07/19/17 07/29/19 History Venlafaxine HCl [Effexor XR] 225 mg PO HS 07/19/17 07/29/19 History Butalb/Acetaminophen/Caffeine 1 cap PO Q4HR PRN 08/28/17 07/29/19 History [Fioricet 50-300-40 mg Capsule] Pregabalin [Lyrica] 150 mg PO BID 11/07/17 07/29/19 History Methocarbamol [Robaxin-750] 750 mg PO TID PRN 11/16/17 07/29/19 History HYDROcodone/APAP 7.5-325MG [[place] 1 tab PO TID PRN 03/01/18 07/29/19 History 7.5-325] Lisdexamfetamine Dimesylate 70 mg PO QAM 11/16/18 07/29/19 History [Vyvanse] rOPINIRole HCL [Requip] 0.5 mg PO DAILY 01/23/19 07/29/19 History Erenumab-Aooe [Aimovig 70 mg SQ Q30D 07/28/19 07/29/19 History Autoinjector] Famotidine [Pepcid] 40 mg PO HS 07/28/19 07/29/19 History Allergies Allergy/AdvReac Type Severity Reaction Status Date / Time tramadol Allergy Hallucinati Verified 07/29/19 09:32 ons valacyclovir HCl AdvReac BLURRED Verified 07/29/19 09:32 [From Valtrex] VISION Surgical - Exam Vital Signs Temp Pulse Resp BP Pulse Ox 97.3 F L 73 16 120/57 100 07/29/19 09:36 07/29/19 09:36 07/29/19 09:36 07/29/19 09:36 07/29/19 09:36 - General well developed, well nourished, no distress - Eyes PERRL - ENT normal pinna - Neck no masses - Respiratory normal expansion - Cardiovascular Rhythm: regular - Abdomen Abdomen: soft, non tender Assessment and Plan Plan: Incisional hernia. We'll perform laparoscopic robotic-assisted repair.
[2019-07-29] MEDS ORDERED: LIDOCAINE 1% INJ 10MG/ML (20 ML MDV) ONE (10:56)
[2019-07-29] MEDS ORDERED: MIDAZOLAM 2 MG/2 ML VIAL ONE (10:56)
[2019-07-29] MEDS ORDERED: SUCCINYLCHOLINE CHLORIDE 100 MG/5 ML SYR IV ONE (10:56)
[2019-07-29] MEDS ORDERED: ROPIVACAINE 5 MG/ML 30 ML VIAL ONE (10:56)
[2019-07-29] MEDS ORDERED: NEOSTIGMINE 1 MG/ML 10 ML VIAL ONE (10:56)
[2019-07-29] MEDS ORDERED: GLYCOPYRROLATE 0.2 MG/ML 2 ML VIAL ONE (10:56)
[2019-07-29] MEDS ORDERED: fentaNYL (PF) 50 MCG/ML 2 ML AMP ONE (10:56)
[2019-07-29] MEDS ORDERED: ROCURONIUM BROMIDE 10 MG/ML 5 ML VIAL IV ONE (10:56)
[2019-07-29] MEDS ORDERED: PROPOFOL 10 MG/ML 20 ML VIAL IV ONE (10:56)
[2019-07-29] MEDS ORDERED: KETAMINE 10 MG/ML 20 ML VIAL ONE (10:56)
[2019-07-29] MEDS ORDERED: LACTATED RINGERS 1,000 ML IV ONE ×3 (12:42→12:51)
[2019-07-29] MEDS: LACTATED RINGERS 1,000 ML IV ONE ×2 (12:42→14:15)
[2019-07-29] MEDS ORDERED: HYDROcodone/APAP 5-325MG 1 EACH TAB PO PRN (12:51)
[2019-07-29] MEDS ORDERED: HYDROmorphone 0.5 MG/0.5 ML SYRINGE IVP PRN (12:51)
[2019-07-29] MEDS ORDERED: NALOXONE 0.4 MG/ML 1 ML VIAL IV PRN (12:51)
[2019-07-29] MEDS ORDERED: ONDANSETRON 4 MG/2 ML VIAL IVP PRN (12:51)
[2019-07-29] MEDS ORDERED: ACETAMINOPHEN TAB 325 MG TAB PO PRN (12:51)
[2019-07-29] MEDS ORDERED: HYDROmorphone 1 MG/ML 1 ML SYRINGE IVP ONE ×2 (12:59→13:04)
[2019-07-29] MEDS: KETOROLAC 30 MG/ML 1 ML VIAL IVP SCH ×2 (14:27→19:10)
[2019-07-29] MEDS ORDERED: HEPARIN SODIUM,PORCINE 5,000 UNIT/ML 1 ML VIAL SQ SCH (16:00)
[2019-07-29] MEDS: PREGABALIN 75 MG CAP PO SCH (20:16)
[2019-07-29] MEDS: TOPIRAMATE 100 MG TAB PO SCH (20:17)
[2019-07-29] MEDS: traZODone HCL 100 MG TAB PO SCH (20:17)
--- NOTE | 2019-07-30 00:15 | P.CONS ---
History of Present Illness - Reason for Consult Consult date: 07/29/19 Medical management - Chief Complaint Repair of incisional hernia - History of Present Illness Patient is a 34-year-old female with a known history of asthma, fibromyalgia, GERD, migraine headaches, IBS, obstructive sleep apnea, hypothyroidism and other multiple medical problems was admitted to the hospital for the repeat of incisional hernia. Patient had history of perforation due to diverticulitis, status post partial colectomy with colostomy bag placement. Patient developed incisional hernia after reversal of colostomy. Patient was admitted to the hospital for laparoscopic robotic-assisted repair. Patient tolerated the procedure very well. Currently denied any complaints of pain which is controlled with medications. Postoperatively patient was hypotensive. Currently denied any complaints of dizziness or lightheadedness. No chest pain or shortness of breath. No fever no chills. No dysuria or hematuria. Review of Systems Constitutional: Patient denies any fever or chills . No generalized weakness or weight loss. Abdomen: Patient denied nausea vomiting and diarrhea and abdominal pain. Cardiovascular: Patient denies any chest pain or short of breath no palpitations. Respiratory: patient denied any cough is from production. No shortness of breath Neurologic: Patient denied any numbness or tingling headache. Musculoskeletal: Patient denies any complaints of joint swelling or deformity. Skin: Negative Psychiatric: Negative Endocrine: No heat or cold intolerance. No recent weight gain. Genitourinary: No dysuria or hematuria. All other 14 point ROS negative except the above Past Medical History Past Medical History: Asthma, Fibromyalgia, GERD/Reflux, Musculoskeletal Disorder, Sleep Apnea/CPAP/BIPAP, Thyroid Disorder Additional Past Medical History / Comment(s): Hx Migraines, DDD , IBS, NO CPAP used. HX PERFORATED DIVERTICULITIS W/ PAST Colostomy 12/2017. History of Any Multi-Drug Resistant Organisms: None Reported Past Surgical History: Bowel Resection, Breast Surgery, Cholecystectomy Additional Past Surgical History / Comment(s): Dental, Rt Breast biopsy. Colostomy 12/2017, THEN Reversal 02/2018. Cholecystectomy - 08-12-18 Past Anesthesia/Blood Transfusion Reactions: No Reported Reaction Past Psychological History: Anxiety, Bipolar, Depression Additional Psychological History / Comment(s): eating disorder-binge eater Smoking Status: Never smoker Past Alcohol Use History: Occasional Past Drug Use History: None Reported - Past Family History Mother History Unknown: Yes Family Medical History: COPD Additional Family Medical History / Comment(s): depression, anxiety Brother(s) Family Medical History: Diabetes Mellitus Medications and Allergies Home Medications Medication Instructions Recorded Confirmed Type Levothyroxine Sodium [Synthroid] 50 mcg PO DAILY 05/05/14 07/29/19 History traZODone HCL [Desyrel] 100 mg PO HS 04/04/15 07/29/19 History Norethindrone-E.estradiol-Iron 1 tab PO HS 05/01/16 07/29/19 History [Loestrin Fe 1.5-30 Tablet] Albuterol Inhaler [Ventolin Hfa 2 puff INHALATION RT-Q6H PRN 05/23/16 07/29/19 History Inhaler] Meloxicam [Mobic] 15 mg PO DAILY 12/31/16 07/29/19 History Topiramate [Trokendi Xr] 200 mg PO DAILY 07/19/17 07/29/19 History Venlafaxine HCl [Effexor XR] 225 mg PO HS 07/19/17 07/29/19 History Butalb/Acetaminophen/Caffeine 1 cap PO Q4HR PRN 08/28/17 07/29/19 History [Fioricet 50-300-40 mg Capsule] Pregabalin [Lyrica] 150 mg PO BID 11/07/17 07/29/19 History Methocarbamol [Robaxin-750] 750 mg PO TID PRN 11/16/17 07/29/19 History HYDROcodone/APAP 7.5-325MG [[place] 1 tab PO TID PRN 03/01/18 07/29/19 History 7.5-325] Lisdexamfetamine Dimesylate 70 mg PO QAM 11/16/18 07/29/19 History [Vyvanse] rOPINIRole HCL [Requip] 0.5 mg PO DAILY 01/23/19 07/29/19 History Erenumab-Aooe [Aimovig 70 mg SQ Q30D 07/28/19 07/29/19 History Autoinjector] Famotidine [Pepcid] 40 mg PO HS 07/28/19 07/29/19 History Allergies Allergy/AdvReac Type Severity Reaction Status Date / Time tramadol Allergy Hallucinati Verified 07/29/19 09:32 ons valacyclovir HCl AdvReac BLURRED Verified 07/29/19 09:32 [From Valtrex] VISION Physical Exam Vitals: Vital Signs Temp Pulse Resp BP Pulse Ox 07/29/19 13:45 87 16 112/56 94 L 07/29/19 13:30 77 12 123/59 94 L 07/29/19 13:15 80 16 126/59 92 L 07/29/19 13:00 77 14 127/63 98 07/29/19 12:52 98.3 F 85 12 134/68 96 07/29/19 10:15 67 16 104/59 100 07/29/19 10:00 74 16 120/55 100 07/29/19 09:36 97.3 F L 73 16 120/57 100 Intake and Output 07/28/19 07/29/19 07/29/19 22:59 06:59 14:59 Intake Total 1250 Output Total 100 Balance 1150 Intake: IV 1250 Output: Estimated Blood Loss 100 Other: Weight 118.2 kg PHYSICAL EXAMINATION: Patient is lying in the bed comfortably, no acute distress, awake alert and oriented.. HEENT: Normocephalic. Neck is supple. Pupils reactive. Nostrils clear. Oral cavity is moist. Ears reveal no drainage. Neck reveals no JVD, carotid bruits, or thyromegaly. CHEST EXAMINATION: Trachea is central. Symmetrical expansion. Bibasilar diminished air entry. Lung murrell clear to auscultation and percussion. CARDIAC: Normal S1, S2 with no gallops. No murmurs ABDOMEN: Soft. Surgical site intact. Drain tube present. Bowel sounds sluggish. No organomegaly. No abdominal bruits. Extremities: reveal no edema. No clubbing or cyanosis Neurologically awake, alert, oriented x3 with well-coordinated movements. No focal deficits noted Skin: No rash or skin lesions. Psychiatric: Coperative. Nonsuicidal Musculoskeletal: No joint swelling or deformity. Normal range of motion. Assessment and Plan Assessment: Status post robotic-assisted repair of incisional hernia after reversal of colostomy. History of diverticular perforation status post colectomy with colostomy bag and reversal. Asthma stable. Fibromyalgia GERD Obstructive sleep apnea currently not on CPAP at home Hypothyroidism IVS Degenerative disc disease History of migraine headaches Morbid obesity with BMI 40.8 DVT prophylaxis Plan: Patient will be continued on pain management, bowel regimen. Incentive spirometry and encourage ambulation. Patient will be continued on current home antidepressants and other medications. Hold for sedation. We will continue to follow closely. Further recommendations based on the clinical course. Thank you for your consult. Time with Patient: Greater than 30
[2019-07-30] MEDS: KETOROLAC 30 MG/ML 1 ML VIAL IVP SCH ×4 (01:14→19:10)
[2019-07-30] MEDS: LEVOTHYROXINE 50 MCG TAB PO SCH (05:41)
[2019-07-30 07:25] LABS: Basophils % (A) 0 %; Eosinophils % (A) 0 %; HCT 35.3 % (34.0-46.0); HGB 11.4 gm/dL (11.4-16.0); Lymphocytes # (A) 2.4 k/uL (1.0-4.8); Lymphocytes % (A) 21 %; MCHC 32.4 g/dL (31.0-37.0); MCV 89.5 fL (80.0-100.0); Mean Platelet Volume 7.7; Monocytes # (A) 0.5 k/uL (0-1.0); Monocytes % (A) 5 %; Neutrophils # (A) 8.4 k/uL (1.3-7.7); Neutrophils % (A) 73 %; Platelet Count 310 k/uL (150-450); RBC 3.94 m/uL (3.80-5.40); RDW 13.1 % (11.5-15.5); WBC 11.5 k/uL (3.8-10.6)
[2019-07-30 08:15] LABS: ALT 17 U/L (4-34); AST 22 U/L (14-36); African American GFR (CKD) >90 (>60 ml/min/1.73 sqM); Albumin 2.9 g/dL (3.5-5.0); Alkaline Phosphatase 61 U/L (38-126); Anion Gap 4 mmol/L; Blood Urea Nitrogen 16 mg/dL (7-17); Calcium 8.7 mg/dL (8.4-10.2); Carbon Dioxide 25 mmol/L (22-30); Chloride 108 mmol/L (98-107); Glucose 114 mg/dL (74-99); Non-African American GFR(CKD) >90 (>60 ml/min/1.73 sqM); Potassium 4.1 mmol/L (3.5-5.1); Sodium 137 mmol/L (137-145); Total Bilirubin 0.3 mg/dL (0.2-1.3); Total Protein 5.5 g/dL (6.3-8.2)
[2019-07-30] MEDS: PREGABALIN 75 MG CAP PO SCH ×2 (09:00→20:12)
[2019-07-30] MEDS: ENOXAPARIN 40 MG/0.4 ML SYRINGE SQ SCH ×2 (09:00→09:04)
[2019-07-30] MEDS: TOPIRAMATE 100 MG TAB PO SCH ×2 (09:00→20:13)
[2019-07-30] MEDS: SODIUM CHLORIDE 0.9% 1,000 ML IV SCH ×2 (09:01→09:02)
--- NOTE | 2019-07-30 10:02 | P.PN ---
Subjective Progress Note Date: 07/30/19 CHIEF COMPLAINT: Incisional hernia HISTORY OF PRESENT ILLNESS: 34-year-old female who is status post repair of incisional hernia with Dr. Meadows. Postop day #1. Patient examined this morning than with Dr. Meadows. Patient reports her pain is tolerable at this time. Nursing reports minimal drainage from ADAN drain overnight. However this morning patient's ADAN drain has had approximately 500 mL of dark bloody output. Patient's systolic blood pressure in the 90s. Hemoglobin 11.4. PHYSICAL EXAM: VITAL SIGNS: Reviewed. GENERAL: Well-developed in no acute distress. HEENT: No sclera icterus. Extraocular movements grossly intact. Moist buccal mucosa. Head is atraumatic, normocephalic. ABDOMEN: Soft. Nondistended. Appropriate surgical tenderness. ADAN drain noted with dark bloody output. Abdominal binder noted. NEUROLOGIC: Alert and oriented. Cranial nerves II through XII grossly intact. ASSESSMENT: 1. Status post repair of incisional hernia 2. Acute blood loss secondary to surgical intervention PLAN: -Continue diet as tolerated -1L 0.9NS bolus. May repeat x 1 if blood pressure remains low -Pain control -Activity as tolerated -Continue abdominal binder -Monitor drainage from ADAN drain -Monitor hemoglobin. Repeat this afternoon and tomorrow AM Nurse practitioner note has been reviewed by physician. Signing provider agrees with the documented findings, assessment, and plan of care. Objective - Vital Signs Vital signs: Vital Signs Temp 98.2 F 07/30/19 07:00 Pulse 77 07/30/19 07:00 Resp 18 07/30/19 07:00 BP 97/68 07/30/19 08:48 Pulse Ox 91 L 07/30/19 07:00 Intake & Output 07/29/19 07/30/19 07/30/19 18:59 06:59 18:59 Intake Total 1250 Output Total 375 200 510 Balance 875 -200 -510 Weight 118.2 kg Intake: IV 1250 Output: Drainage 75 200 510 Abdomen 75 200 510 Urine 200 Estimated Blood Loss 100 Other: Voiding Method Toilet - Labs CBC & Chem 7: 07/30/19 06:56 07/30/19 06:56 Labs: Abnormal Lab Results - Last 24 Hours (Table) 07/30/19 07/30/19 Range/Units 06:56 06:56 WBC 11.5 H (3.8-10.6) k/uL Neutrophils # 8.4 H (1.3-7.7) k/uL Chloride 108 H (98-107) mmol/L Glucose 114 H (74-99) mg/dL Total Protein 5.5 L (6.3-8.2) g/dL Albumin 2.9 L (3.5-5.0) g/dL
[2019-07-30 13:16] LABS: HCT 35.5 % (34.0-46.0); MCH 28.1 pg (25.0-35.0); MCHC 31.1 g/dL (31.0-37.0); MCV 90.2 fL (80.0-100.0); Mean Platelet Volume 7.9; Platelet Count 265 k/uL (150-450); RBC 3.93 m/uL (3.80-5.40); RDW 13.3 % (11.5-15.5); WBC 10.3 k/uL (3.8-10.6)
[2019-07-30] MEDS: Lisdexamfetamine Dimesylate [Vyvanse] 70 MG PO SCH (17:03)
[2019-07-30] MEDS: traZODone HCL 100 MG TAB PO SCH (20:12)
[2019-07-30] MEDS ORDERED: FAMOTIDINE 20 MG TAB PO SCH (21:00)
[2019-07-30] MEDS ORDERED: NORETHINDRONE E ESTRADIOL IRON PO SCH (21:00)
[2019-07-30] MEDS ORDERED: VENLAFAXINE HCL ER 75 MG CAP PO SCH (21:00)
--- NOTE | 2019-07-30 23:57 | P.PN ---
Progress Note - Text Progress Note Date: 07/30/19 Presenting complaint: Incisional hernia repair Interval history: Patient is status post incisional hernia repair. Some pain of the operative site. ADAN drain and about 500 mL out of it.-Bloody. Patient did tolerate some diet. Laying in bed Review of systems: Was done for constitutional, cardiovascular, GI, pulmonary. relevant finding as above Active Medications Acetaminophen (Tylenol Tab) 650 mg PO Q6HR PRN PRN Reason: Mild Pain or Fever >= 100.5 Hydrocodone Bitart/Acetaminophen ([place] 5-325) 2 each PO Q6HR PRN PRN Reason: Moderate to Severe Pain Enoxaparin Sodium (Lovenox) 40 mg SQ DAILY [facility] Last Admin: 07/30/19 09:04 Dose: Not Given Documented by: Famotidine (Pepcid) 40 mg PO [facility] Last Admin: 07/30/19 20:12 Dose: 40 mg Documented by: Hydromorphone HCl (Dilaudid) 0.5 mg IVP Q3HR PRN PRN Reason: Moderate to Severe Pain Lactated Ringer's (Lactated Ringers) 1,000 mls @ 20 mls/hr IV .Q24H [facility] Last Admin: 07/29/19 14:16 Dose: Not Given Documented by: Ketorolac Tromethamine (Toradol) 30 mg IVP Q6H [facility] Stop: 07/31/19 07:01 Last Admin: 07/30/19 19:10 Dose: 30 mg Documented by: Levothyroxine Sodium (Synthroid) 50 mcg PO DAILY@0630 [facility] Last Admin: 07/30/19 05:41 Dose: 50 mcg Documented by: Naloxone HCl (Narcan) 0.2 mg IV Q2M PRN PRN Reason: Opioid Reversal Lisdexamfetamine Dimesylate [Vyvanse] 70 Mg 70 mg PO QAM [facility] Last Admin: 07/30/19 17:03 Dose: Not Given Documented by: Norethindrone-E. Estradiol-Iron [ Loestrin Fe 1.5-30 Tablet] 1 Tab 1 tab PO [facility] Last Admin: 07/30/19 20:13 Dose: Not Given Documented by: Ondansetron HCl (Zofran) 4 mg IVP Q8HR PRN PRN Reason: Nausea And Vomiting Pregabalin (Lyrica) 150 mg PO BID [facility] Last Admin: 07/30/19 20:12 Dose: 150 mg Documented by: Ropinirole HCl (Requip) 0.5 mg PO [facility] Last Admin: 07/30/19 20:12 Dose: 0.5 mg Documented by: Topiramate (Topamax) 100 mg PO BID [facility] Last Admin: 07/30/19 20:13 Dose: 100 mg Documented by: Trazodone HCl (Desyrel) 100 mg PO [facility] Last Admin: 07/30/19 20:12 Dose: 100 mg Documented by: Venlafaxine HCl (Effexor Xr) 225 mg PO [facility] Last Admin: 07/30/19 20:13 Dose: 225 mg Documented by: On examination: VITAL SIGNS: 98, 68, 18, blood pressure 110/76, 98% room air GENERAL APPEARANCE: BMI 40.8, laying in bed. Lying in bed, tired. HEENT: Normal external appearance of nose and ear. Oral cavity normal EYES: Pupils equal. Conjunctiva normal. NECK: JVD not raised. Mass not palpable. RESPIRATORY: Respiratory effort normal. Lungs clear to auscultation. CARDIOVASCULAR: First and second sounds normal. No edema. ABDOMEN: Soft. Tender. No guarding or rigidity. ADAN drain. Liver and spleen not palpable. No tenderness. No mass palpable. PSYCHIATRY: Alert and oriented x3. Mood and affect normal. INVESTIGATIONS, reviewed in the clinical context: White count 10.3 hemoglobin 11 bun 16 creatinine 0.81 Assessment: -Incisional hernia repaired -Morbid obesity BMI 40.8 -Intermittent Asthma-stable -Chronic fibromyalgia -GERD Objective sleep apnea does not use CPAP trial-irritable bowel syndrome -Bipolar -Restless leg syndrome -Hypothyroid Plan: Diet was advanced to regular per surgery. Has had some drainage from the ADAN drain. Other medication treatment plan is to continue. Encouraged to be out of bed Thank you Dr. Meadows
[2019-07-31] MEDS: KETOROLAC 30 MG/ML 1 ML VIAL IVP SCH ×2 (02:35→07:37)
[2019-07-31 03:31] VITALS: RESP 18
[2019-07-31] MEDS: LACTATED RINGERS 1,000 ML IV SCH (03:56)
[2019-07-31] MEDS: LEVOTHYROXINE 50 MCG TAB PO SCH (05:44)
[2019-07-31 07:33] VITALS: BP 133/78; PULSE 71; TEMP 98.2
[2019-07-31] MEDS: PREGABALIN 75 MG CAP PO SCH (07:33)
[2019-07-31] MEDS: TOPIRAMATE 100 MG TAB PO SCH (07:33)
[2019-07-31] MEDS: ENOXAPARIN 40 MG/0.4 ML SYRINGE SQ SCH (07:34)
[2019-07-31] MEDS: Lisdexamfetamine Dimesylate [Vyvanse] 70 MG PO SCH (07:38)
[2019-07-31 07:46] LABS: MCH 28.1 pg (25.0-35.0); MCHC 31.1 g/dL (31.0-37.0); MCV 90.3 fL (80.0-100.0); Mean Platelet Volume 7.9; Platelet Count 253 k/uL (150-450); RBC 3.55 m/uL (3.80-5.40); RDW 13.4 % (11.5-15.5); WBC 9.2 k/uL (3.8-10.6)
--- NOTE | 2019-07-31 09:49 | P.PN ---
Subjective Progress Note Date: 07/31/19 CHIEF COMPLAINT: Incisional hernia HISTORY OF PRESENT ILLNESS: 34-year-old female who is status post repair of incisional hernia with Dr. Meadows. Postop day #2. Patient examined this morning at the bedside. She reports her pain is 6/10. ADAN drain with 100cc ov ernight. Tolerating diet. No nausea or vomiting. Vital signs stable. She is afebrile. PHYSICAL EXAM: VITAL SIGNS: Reviewed. GENERAL: Well-developed in no acute distress. HEENT: No sclera icterus. Extraocular movements grossly intact. Moist buccal mucosa. Head is atraumatic, normocephalic. ABDOMEN: Soft. Nondistended. Appropriate surgical tenderness. ADAN drain noted with dark bloody output. Abdominal binder noted. NEUROLOGIC: Alert and oriented. Cranial nerves II through XII grossly intact. ASSESSMENT: 1. Status post repair of incisional hernia 2. Acute blood loss secondary to surgical intervention PLAN: -Continue diet as tolerated -Pain control -Activity as tolerated -Continue abdominal binder -Anticipate discharge home tomorrow Nurse practitioner note has been reviewed by physician. Signing provider agrees with the documented findings, assessment, and plan of care. Objective - Vital Signs Vital signs: Vital Signs Temp 98.2 F 07/31/19 07:00 Pulse 71 07/31/19 07:00 Resp 18 07/31/19 07:20 BP 133/78 07/31/19 07:00 Pulse Ox 96 07/31/19 07:00 Intake & Output 07/30/19 07/31/19 07/31/19 18:59 06:59 18:59 Intake Total 236 Output Total 850 95 60 Balance -614 -95 -60 Intake: Oral 236 Output: Drainage 650 95 60 Abdomen 650 95 60 Urine 200 Other: Voiding Method Toilet Toilet Toilet # Voids 1 - Labs CBC & Chem 7: 07/31/19 07:04 07/30/19 06:56 Labs: Abnormal Lab Results - Last 24 Hours (Table) 07/30/19 07/31/19 Range/Units 13:05 07:04 RBC 3.55 L (3.80-5.40) m/uL Hgb 11.0 L 10.0 L (11.4-16.0) gm/dL Hct 32.0 L (34.0-46.0) %
--- NOTE | 2019-07-31 12:39 | P.DS ---
Providers Date of admission: 07/30/19 06:25 Expected date of discharge: 07/31/19 Attending physician: Brayan Meadows Consults: 07/29/19 12:51 Consult Physician Routine Consulting Provider: Malick Fontenot Consult Reason/Comments: Medical management Do you want consulting provider notified?: Yes Primary care physician: Edgardo Orozco [facility] Course: 34-year-old female who is status post repair of incisional hernia with Dr. Meadows. Patient is doing well postoperatively. She is tolerating diet. Pain is controlled on oral medications. She is stable for discharge home today. Please see EMR for further hospital course details. Discharge Diagnosis: 1. Status post repair of incisional hernia 2. Acute blood loss secondary to surgical intervention Nurse practitioner note has been reviewed by physician. Signing provider agrees with the documented findings, assessment, and plan of care. Patient Condition at Discharge: Stable Plan - Discharge Summary Discharge Rx Participant: No New Discharge Prescriptions: No Action Levothyroxine Sodium [Synthroid] 50 mcg PO DAILY traZODone HCL [Desyrel] 100 mg PO HS Norethindrone-E.estradiol-Iron [Loestrin Fe 1.5-30 Tablet] 1 tab PO HS Albuterol Inhaler [Ventolin Hfa Inhaler] 2 puff INHALATION RT-Q6H PRN PRN Reason: Shortness Of Breath Meloxicam [Mobic] 15 mg PO DAILY Venlafaxine HCl [Effexor XR] 225 mg PO HS Topiramate [Trokendi Xr] 200 mg PO DAILY Butalb/Acetaminophen/Caffeine [Fioricet 50-300-40 mg Capsule] 1 cap PO Q4HR PRN PRN Reason: Migraine Headache Pregabalin [Lyrica] 150 mg PO BID Methocarbamol [Robaxin-750] 750 mg PO TID PRN PRN Reason: Muscle Spasm HYDROcodone/APAP 7.5-325MG [[place] 7.5-325] 1 tab PO TID PRN PRN Reason: Pain Lisdexamfetamine Dimesylate [Vyvanse] 70 mg PO QAM rOPINIRole HCL [Requip] 0.5 mg PO DAILY Famotidine [Pepcid] 40 mg PO HS Erenumab-Aooe [Aimovig Autoinjector] 70 mg SQ Q30D Discharge Medication List Levothyroxine Sodium [Synthroid] 50 mcg PO DAILY 05/05/14 [History] traZODone HCL [Desyrel] 100 mg PO HS 04/04/15 [History] Norethindrone-E.estradiol-Iron [Loestrin Fe 1.5-30 Tablet] 1 tab PO HS 05/01/16 [History] Albuterol Inhaler [Ventolin Hfa Inhaler] 2 puff INHALATION RT-Q6H PRN 05/23/16 [History] Meloxicam [Mobic] 15 mg PO DAILY 12/31/16 [History] Topiramate [Trokendi Xr] 200 mg PO DAILY 07/19/17 [History] Venlafaxine HCl [Effexor XR] 225 mg PO HS 07/19/17 [History] Butalb/Acetaminophen/Caffeine [Fioricet 50-300-40 mg Capsule] 1 cap PO Q4HR PRN 08/28/17 [History] Pregabalin [Lyrica] 150 mg PO BID 11/07/17 [History] Methocarbamol [Robaxin-750] 750 mg PO TID PRN 11/16/17 [History] HYDROcodone/APAP 7.5-325MG [[place] 7.5-325] 1 tab PO TID PRN 03/01/18 [History] Lisdexamfetamine Dimesylate [Vyvanse] 70 mg PO QAM 11/16/18 [History] rOPINIRole HCL [Requip] 0.5 mg PO DAILY 01/23/19 [History] Erenumab-Aooe [Aimovig Autoinjector] 70 mg SQ Q30D 07/28/19 [History] Famotidine [Pepcid] 40 mg PO HS 07/28/19 [History] Follow up Appointment(s)/Referral(s): Brayan Meadows MD [STAFF PHYSICIAN] - 08/05/19 3:40 pm
--- NOTE | 2019-07-31 21:10 | P.PN ---
Progress Note - Text Progress Note Date: 07/31/19 Presenting complaint: Incisional hernia repair Interval history: Patient is status post incisional hernia repair. Today-laying in bed. Up much of an appetite. ADAN drain is putting out some bloody drainage. Has positive flatus. Feels a bit better.. Review of systems: Was done for constitutional, cardiovascular, GI, pulmonary. relevant finding as above Current medications reviewed in today's electronic record On examination: VITAL SIGNS: 98.2, 71, 18, blood pressure 133/78, 96% on room air GENERAL APPEARANCE: Laying in bed, awake,. HEENT: Normal external appearance of nose and ear. Oral cavity normal EYES: Pupils equal. Conjunctiva normal. NECK: JVD not raised. Mass not palpable. RESPIRATORY: Respiratory effort normal. Lungs clear to auscultation. CARDIOVASCULAR: First and second sounds normal. No edema. ABDOMEN: Soft. Tender. No guarding or rigidity. ADAN drain. Liver and spleen not palpable. No tenderness. No mass palpable. PSYCHIATRY: Alert and oriented x3. Mood and affect normal. INVESTIGATIONS, reviewed in the clinical context: Hemoglobin 10 Assessment: -Incisional hernia repaired -Morbid obesity BMI 40.8 -Intermittent Asthma-stable -Chronic fibromyalgia -GERD Objective sleep apnea does not use CPAP trial-irritable bowel syndrome -Bipolar -Restless leg syndrome -Hypothyroid Plan: Continue current medication treatment plan. Patient encouraged to be out of bed. Thank you Dr. Meadows
--- NOTE | 2019-08-05 10:16 | P.DS ---
Providers Date of admission: 07/30/19 06:25 Expected date of discharge: 07/31/19 Attending physician: Brayan Meadows Consults: 07/29/19 12:51 Consult Physician Routine Consulting Provider: Malick Fontenot Consult Reason/Comments: Medical management Do you want consulting provider notified?: Yes Primary care physician: [facility] Course: This is a 34 she'll female who underwent open repair of incisional hernia. Please see hospital chart for details. Patient was discharged home on postoperative day 2. Procedures: Open repair of (Incisional hernia Patient Condition at Discharge: Good Plan - Discharge Summary Discharge Rx Participant: No New Discharge Prescriptions: No Action Levothyroxine Sodium [Synthroid] 50 mcg PO DAILY traZODone HCL [Desyrel] 100 mg PO HS Norethindrone-E.estradiol-Iron [Loestrin Fe 1.5-30 Tablet] 1 tab PO HS Albuterol Inhaler [Ventolin Hfa Inhaler] 2 puff INHALATION RT-Q6H PRN PRN Reason: Shortness Of Breath Meloxicam [Mobic] 15 mg PO DAILY Venlafaxine HCl [Effexor XR] 225 mg PO HS Topiramate [Trokendi Xr] 200 mg PO DAILY Butalb/Acetaminophen/Caffeine [Fioricet 50-300-40 mg Capsule] 1 cap PO Q4HR PRN PRN Reason: Migraine Headache Pregabalin [Lyrica] 150 mg PO BID Methocarbamol [Robaxin-750] 750 mg PO TID PRN PRN Reason: Muscle Spasm HYDROcodone/APAP 7.5-325MG [[place] 7.5-325] 1 tab PO TID PRN PRN Reason: Pain Lisdexamfetamine Dimesylate [Vyvanse] 70 mg PO QAM rOPINIRole HCL [Requip] 0.5 mg PO DAILY Famotidine [Pepcid] 40 mg PO HS Erenumab-Aooe [Aimovig Autoinjector] 70 mg SQ Q30D Discharge Medication List Levothyroxine Sodium [Synthroid] 50 mcg PO DAILY 05/05/14 [History] traZODone HCL [Desyrel] 100 mg PO HS 04/04/15 [History] Norethindrone-E.estradiol-Iron [Loestrin Fe 1.5-30 Tablet] 1 tab PO HS 05/01/16 [History] Albuterol Inhaler [Ventolin Hfa Inhaler] 2 puff INHALATION RT-Q6H PRN 05/23/16 [History] Meloxicam [Mobic] 15 mg PO DAILY 12/31/16 [History] Topiramate [Trokendi Xr] 200 mg PO DAILY 07/19/17 [History] Venlafaxine HCl [Effexor XR] 225 mg PO HS 07/19/17 [History] Butalb/Acetaminophen/Caffeine [Fioricet 50-300-40 mg Capsule] 1 cap PO Q4HR PRN 08/28/17 [History] Pregabalin [Lyrica] 150 mg PO BID 11/07/17 [History] Methocarbamol [Robaxin-750] 750 mg PO TID PRN 11/16/17 [History] HYDROcodone/APAP 7.5-325MG [[place] 7.5-325] 1 tab PO TID PRN 03/01/18 [History] Lisdexamfetamine Dimesylate [Vyvanse] 70 mg PO QAM 11/16/18 [History] rOPINIRole HCL [Requip] 0.5 mg PO DAILY 01/23/19 [History] Erenumab-Aooe [Aimovig Autoinjector] 70 mg SQ Q30D 07/28/19 [History] Famotidine [Pepcid] 40 mg PO HS 07/28/19 [History] Follow up Appointment(s)/Referral(s): Edgardo Inman MD [Primary Care Provider] - 08/11/19 12:45 pm Brayan Meadows MD [STAFF PHYSICIAN] - 08/05/19 3:40 pm Patient Instructions/Handouts: Laparoscopic Herniorrhaphy (DC) Discharge Disposition: HOME SELF-CARE
--- NOTE | 2019-08-25 14:30 | P.OP ---
Date of Procedure: 07/29/19 Preoperative Diagnosis: Incisional hernia Postoperative Diagnosis: Incisional hernia Procedure(s) Performed: Diagnostic laparoscopy Repair of incisional hernia with mesh Anesthesia: GILL Surgeon: Brayan Meadows Estimated Blood Loss (ml): 100 Pathology: none sent Condition: stable Disposition: PACU Description of Procedure: The patient's placed on the operative table in supine position. She received general anesthesia. Her abdomen was prepped and draped usual sterile fashion. Patient had a incisional hernia located in the midline near her previous colostomy site. Using a 5 mm optical trocar under direct visualization the Cavity is entered in the right lower quadrant and then the abdomen was insufflated after adequate insufflation the laparoscope placed back the peritoneal cavity. There were extensive adhesions noted within the abdomen. At this point decided to perform the procedure as an open procedure. The trochars withdrawn. The skin was incised over the hernia and then using blunt and sharp dissection with cautery the hernia sac was dissected free from the fascia. The hernia sac was inverted and then using 0 Ethibond suture the fascia was repaired. After the fascia was repaired the Prolene mesh was placed over top the repair and secured with a secure strap tacker. A ADAN drain his bladder through separate stab incision this was secured skin using 2-0 nylon suture. The skin was then closed quan. Patient top she will was sent to recovery ro om stable condition.
== END 2019-07-31 14:29 | disposition home or self-care (01) ==
LOC: OR 08:05 → 4SSUR 13:43 → OR 07-30 06:25
PROVIDERS: ADMIT Surgery; ATTEND Surgery
DX: K43.2 Incisional hernia without obstruction or gangrene (principal); I95.81 Postprocedural hypotension; D62 Acute posthemorrhagic anemia; K66.0 Peritoneal adhesions (postprocedural) (postinfection); M79.7 Fibromyalgia; K21.9 Gastro-esophageal reflux disease without esophagitis; J45.20 Mild intermittent asthma, uncomplicated; G47.33 Obstructive sleep apnea (adult) (pediatric); E03.9 Hypothyroidism, unspecified; K58.9 Irritable bowel syndrome, unspecified; G25.81 Restless legs syndrome; G43.909 Migraine, unspecified, not intractable, without status migrainosus; F31.9 Bipolar disorder, unspecified; F41.9 Anxiety disorder, unspecified; E66.01 Morbid (severe) obesity due to excess calories; Z68.41 Body mass index [BMI] 40.0-44.9, adult; F90.9 Attention-deficit hyperactivity disorder, unspecified type; Z79.890 Hormone replacement therapy; Z79.1 Long term (current) use of non-steroidal anti-inflammatories (NSAID); Z79.3 Long term (current) use of hormonal contraceptives; Z79.891 Long term (current) use of opiate analgesic; Z79.899 Other long term (current) drug therapy; Z88.5 Allergy status to narcotic agent; Z88.8 Allergy status to other drugs, medicaments and biological substances; Z79.51 Long term (current) use of inhaled steroids; Z53.31 Laparoscopic surgical procedure converted to open procedure; Z87.19 Personal history of other diseases of the digestive system; Z86.59 Personal history of other mental and behavioral disorders; Z90.49 Acquired absence of other specified parts of digestive tract; Z81.8 Family history of other mental and behavioral disorders; Z82.5 Family history of asthma and other chronic lower respiratory diseases; Z83.3 Family history of diabetes mellitus
CPT/HCPCS: 49560; 49568; 81025; 64486; 80053; 85025; 85027 ×2; G0378 ×2; C1781; J2250; J1644; J1100; J2710; J0690; J2405; J2001; J1650; J3010; J1885 ×3; J1170; J2795; J0330; J2704

== ENCOUNTER 2019-08-01 23:20 | Emergency (ER) | payer OTHER ==
[2019-08-01] MEDS ORDERED: IOPAMIDOL CONTRAST (ORAL USE) VIAL PO PRN (23:41)
[2019-08-01] MEDS ORDERED: MORPHINE SULFATE 4 MG/ML SYRINGE IVP STA (23:59)
[2019-08-01] MEDS ORDERED: ONDANSETRON 4 MG/2 ML VIAL IVP STA (23:59)
[2019-08-02 00:20] LABS: Basophils % (A) 0 %; Eosinophils # (A) 0.4 k/uL (0-0.7); Eosinophils % (A) 3 %; HCT 38.3 % (34.0-46.0); HGB 12.7 gm/dL (11.4-16.0); Lymphocytes # (A) 2.8 k/uL (1.0-4.8); Lymphocytes % (A) 22 %; MCH 28.9 pg (25.0-35.0); MCHC 33.2 g/dL (31.0-37.0); MCV 86.9 fL (80.0-100.0); Monocytes # (A) 0.5 k/uL (0-1.0); Monocytes % (A) 4 %; Neutrophils # (A) 8.9 k/uL (1.3-7.7); Neutrophils % (A) 69 %; Platelet Count 429 k/uL (150-450); RDW 13.2 % (11.5-15.5); WBC 12.9 k/uL (3.8-10.6)
[2019-08-02 00:24] LABS: ALT 29 U/L (4-34); AST 42 U/L (14-36); African American GFR (CKD) >90 (>60 ml/min/1.73 sqM); Albumin 3.9 g/dL (3.5-5.0); Alkaline Phosphatase 118 U/L (38-126); Anion Gap 9 mmol/L; Blood Urea Nitrogen 14 mg/dL (7-17); Calcium 9.6 mg/dL (8.4-10.2); Carbon Dioxide 20 mmol/L (22-30); Chloride 108 mmol/L (98-107); Glucose 110 mg/dL (74-99); Non-African American GFR(CKD) >90 (>60 ml/min/1.73 sqM); Potassium 3.9 mmol/L (3.5-5.1); Sodium 137 mmol/L (137-145); Total Bilirubin 0.6 mg/dL (0.2-1.3); Total Protein 7.1 g/dL (6.3-8.2)
--- NOTE | 2019-08-02 00:29 | ED ---
Abdominal Pain HPI - General Chief Complaint: Abdominal Pain Stated Complaint: Drainage and pus from incision Time Seen by Provider: 08/01/19 23:32 Source: patient Mode of arrival: ambulatory Limitations: no limitations - History of Present Illness Initial Comments: Mary is a 34-year-old female presents the emergency department today for evaluation of pain at her surgical incision. Patient was seen and evaluated earlier in the week and diagnosed with an incisional hernia which required emergent surgical intervention. She had a laparoscopic which was converted to open hernia repair by Dr. Young. Patient was discharged home the next day. Patient reports that she is on a pain contract and was taking her home [place] however she took more than she is supposed to take daily and is now out. Patient reports that today her pain is been uncontrolled, she noticed some dark blood from her abdominal incision so decided to come back to the ER for reevaluation. Patient denies any associated fevers chills nausea or vomiting, she reports she's had no appetite and has had decreased oral intake and has not had a bowel movement since Sunday. - Related Data Home Medications Medication Instructions Recorded Confirmed Levothyroxine Sodium [Synthroid] 50 mcg PO DAILY 05/05/14 07/29/19 traZODone HCL [Desyrel] 100 mg PO HS 04/04/15 07/29/19 Norethindrone-E.estradiol-Iron 1 tab PO HS 05/01/16 07/29/19 [Loestrin Fe 1.5-30 Tablet] Albuterol Inhaler [Ventolin Hfa 2 puff INHALATION RT-Q6H PRN 05/23/16 07/29/19 Inhaler] Meloxicam [Mobic] 15 mg PO DAILY 12/31/16 07/29/19 Topiramate [Trokendi Xr] 200 mg PO DAILY 07/19/17 07/29/19 Venlafaxine HCl [Effexor XR] 225 mg PO HS 07/19/17 07/29/19 Butalb/Acetaminophen/Caffeine 1 cap PO Q4HR PRN 08/28/17 07/29/19 [Fioricet 50-300-40 mg Capsule] Pregabalin [Lyrica] 150 mg PO BID 11/07/17 07/29/19 Methocarbamol [Robaxin-750] 750 mg PO TID PRN 11/16/17 07/29/19 HYDROcodone/APAP 7.5-325MG [[place] 1 tab PO TID PRN 03/01/18 07/29/19 7.5-325] Lisdexamfetamine Dimesylate 70 mg PO QAM 11/16/18 07/29/19 [Vyvanse] rOPINIRole HCL [Requip] 0.5 mg PO DAILY 01/23/19 07/29/19 Erenumab-Aooe [Aimovig 70 mg SQ Q30D 07/28/19 07/29/19 Autoinjector] Famotidine [Pepcid] 40 mg PO HS 07/28/19 07/29/19 Allergies Allergy/AdvReac Type Severity Reaction Status Date / Time tramadol Allergy Hallucinati Verified 07/29/19 09:32 ons valacyclovir HCl AdvReac BLURRED Verified 07/29/19 09:32 [From Valtrex] VISION Review of Systems ROS Statement: Those systems with pertinent positive or pertinent negative responses have been documented in the HPI. ROS Other: All systems not noted in ROS Statement are negative. Past Medical History Past Medical History: Asthma, Fibromyalgia, GERD/Reflux, Musculoskeletal Disorder, Sleep Apnea/CPAP/BIPAP, Thyroid Disorder Additional Past Medical History / Comment(s): Hx Migraines, DDD , IBS, NO CPAP used. HX PERFORATED DIVERTICULITIS W/ PAST Colostomy 12/2017. History of Any Multi-Drug Resistant Organisms: None Reported Past Surgical History: Bowel Resection, Breast Surgery, Cholecystectomy, Hernia Repair Additional Past Surgical History / Comment(s): Dental, Rt Breast biopsy. Colostomy 12/2017, THEN Reversal 02/2018. Cholecystectomy - -06-01 Past Anesthesia/Blood Transfusion Reactions: No Reported Reaction Past Psychological History: Anxiety, Bipolar, Depression Smoking Status: Never smoker Past Alcohol Use History: Occasional Past Drug Use History: None Reported - Past Family History Mother History Unknown: Yes Family Medical History: COPD Additional Family Medical History / Comment(s): depression, anxiety Brother(s) Family Medical History: Diabetes Mellitus General Exam - General Exam Comments Initial Comments: Physical Exam GENERAL: Morbidly obese patient who is crying and appears uncomfortable HENT: Normocephalic, Atraumatic. EYES: PERRL, EOMI No conjunctival pallor PULMONARY: Unlabored respirations. CARDIOVASCULAR: RRR Warm and well perfused extremities ABDOMEN: Obese abdomen with multiple surgical dressings in place, no erythema or purulent drainage noted on dressings ADAN drain noted in the epigastrium, no surrounding erythema or signs of infection Large hematoma at right lower quadrant incision No peritoneal signs SKIN: Abdominal incisions as noted above : Deferred NEUROLOGIC: Alert and oriented Normal speech Normal gait MUSCULOSKELETAL: Moving all extremities with no apparent injury PSYCHIATRIC: No SI/HI Limitations: no limitations Course Vital Signs 08/01/19 23:24 Temperature 98.2 F Pulse Rate 89 Respiratory 18 Rate Blood Pressure 129/86 O2 Sat by Pulse 99 Oximetry Medical Decision Making - Medical Decision Making The patient was seen and evaluated, history is obtained from the patient and review of medical record 34-year-old female who underwent surgery earlier in the week presenting today with abdominal pain Incisions appear clean there is no purulent drainage noted There is bloody drainage and the ADAN drain again no purulence noted Labs with leukocytosis of 12, hemoglobin improving, otherwise relatively unremarkable CT scan with oral contrast was ordered Patient care was discussed with her surgeon who states that she had significant bleeding at the time of surgery and he expects that she has some intra-abdominal hematoma causing her pain Computed tomography scan confirms ischemic or hemorrhagic abdominal mesenteric fat On reevaluation patient sleeping comfortably, results were discussed with the patient, at this time there is no acute surgical or medical emergency and patient is stable for discharge home. - Lab Data Result diagrams: 08/01/19 23:48 08/01/19 23:48 Lab Results 08/01/19 08/01/19 Range/Units 23:48 23:48 WBC 12.9 H (3.8-10.6) k/uL RBC 4.40 (3.80-5.40) m/uL Hgb 12.7 (11.4-16.0) gm/dL Hct 38.3 (34.0-46.0) % MCV 86.9 (80.0-100.0) fL MCH 28.9 (25.0-35.0) pg MCHC 33.2 (31.0-37.0) g/dL RDW 13.2 (11.5-15.5) % Plt Count 429 (150-450) k/uL Neutrophils % 69 % Lymphocytes % 22 % Monocytes % 4 % Eosinophils % 3 % Basophils % 0 % Neutrophils # 8.9 H (1.3-7.7) k/uL Lymphocytes # 2.8 (1.0-4.8) k/uL Monocytes # 0.5 (0-1.0) k/uL Eosinophils # 0.4 (0-0.7) k/uL Basophils # 0.0 (0-0.2) k/uL Sodium 137 (137-145) mmol/L Potassium 3.9 (3.5-5.1) mmol/L Chloride 108 H (98-107) mmol/L Carbon Dioxide 20 L (22-30) mmol/L Anion Gap 9 mmol/L BUN 14 (7-17) mg/dL Creatinine 0.76 (0.52-1.04) mg/dL Est GFR (CKD-EPI)AfAm >90 (>60 ml/min/1.73 sqM) Est GFR (CKD-EPI)NonAf >90 (>60 ml/min/1.73 sqM) Glucose 110 H (74-99) mg/dL Calcium 9.6 (8.4-10.2) mg/dL Total Bilirubin 0.6 (0.2-1.3) mg/dL AST 42 H (14-36) U/L ALT 29 (4-34) U/L Alkaline Phosphatase 118 (38-126) U/L Total Protein 7.1 (6.3-8.2) g/dL Albumin 3.9 (3.5-5.0) g/dL Disposition Clinical Impression: Post-operative pain Disposition: HOME SELF-CARE Condition: Stable Additional Instructions: Continue to monitor ADAN drain output, continue to keep the abdomen clean and dry Return to the ER for any worsening pain, fevers, redness of the abdomen or malodorous drainage Follow-up with her surgeon as scheduled Is patient prescribed a controlled substance at d/c from ED?: No Referrals: Edgardo Inman MD [Primary Care Provider] - 1-2 days
--- NOTE | 2019-08-02 02:29 | CT ---
EXAMINATION TYPE: CT abdomen pelvis w con DATE OF EXAM: 08/02/2019 COMPARISON: 09/29/2018 HISTORY: abd pain CT DLP: 1857.9 mGycm Automated exposure control for dose reduction was used. CONTRAST: Performed with IV Contrast, patient injected with 100 mL of Isovue 300. Lung bases are clear. There is no pleural effusion. Heart size is normal. There is no pericardial eff usion. Liver spleen stomach pancreas appear normal. Bile ducts are not dilated. There are clips from cholecy stectomy. There is no adrenal mass. Kidneys show satisfactory contrast opacification. There is no hydronephrosi s. There is left side anterior abdominal wall hernia surgery with displacement of mesenteric fat into the abdomen for the hernia reduction. There is a drain in the anterior subcutaneous soft tissues. Th e mesenteric fat tissue which is now apparently within the abdominal cavity shows fat stranding. This measures 13 x 6 cm. There is no evidence of a bowel obstruction. There is no free fluid in the pelvis. There is 3 cm cyst on the left ovary. Uterus is slightly retroverted. There is no retroperitoneal adenopathy. There is no evidence of a pelvic mass. Bladder distends smoothly. Appendix is not definitely seen. There is no sign of thickened appendix. There is no evidence of free air. Lumbar vertebra have normal spacing and alignment. Posterior elements are intact. There is mild poste rior disc bulging at L5-S1. There is no spinal stenosis. Bony pelvis is intact. IMPRESSION: Hernia reduction surgery. Large amount of mesenteric fat that is reduced into the abdomen shows fat s tranding that could relate to ischemia or hemorrhage. No drainable fluid collection. Subcutaneous kasie inage catheter appears in good position. No bowel obstruction.
[2019-08-02 03:14] VITALS: BP 117/77; PULSE 72; RESP 14; TEMP 98.7
== END 2019-08-02 03:14 | disposition home or self-care (01) ==
LOC: EC 23:20
DX: G89.18 Other acute postprocedural pain (principal); R10.9 Unspecified abdominal pain; G47.30 Sleep apnea, unspecified; E07.9 Disorder of thyroid, unspecified; K21.9 Gastro-esophageal reflux disease without esophagitis; F41.9 Anxiety disorder, unspecified; F31.9 Bipolar disorder, unspecified; J45.909 Unspecified asthma, uncomplicated; Z79.1 Long term (current) use of non-steroidal anti-inflammatories (NSAID); Z79.890 Hormone replacement therapy; Z79.899 Other long term (current) drug therapy; Z79.3 Long term (current) use of hormonal contraceptives; Z88.5 Allergy status to narcotic agent; Z88.8 Allergy status to other drugs, medicaments and biological substances
CPT/HCPCS: 36415; 80053; 85025; 74177; 99284; 96374; 96375; J2270; J2405; Q9967

== ENCOUNTER 2019-08-30 14:55 | Inpatient (IN) | payer OTHER ==
[2019-08-30] MEDS ORDERED: ONDANSETRON 4 MG/2 ML VIAL IVP STA (15:34)
[2019-08-30] MEDS ORDERED: MORPHINE SULFATE 4 MG/ML SYRINGE IV STA (15:34)
[2019-08-30] MEDS ORDERED: SODIUM CHLORIDE 0.9% 1,000 ML IV STA (15:34)
--- NOTE | 2019-08-30 16:09 | ED ---
Abdominal Pain HPI - General Source: patient Mode of arrival: ambulatory Limitations: no limitations <Susan Ramey - Last Filed: 08/30/19 16:05> <Nataliia Bender - Last Filed: 08/30/19 17:30> <Cat Flores Walter - Last Filed: 09/01/19 23:48> - General Chief Complaint: Abdominal Pain Stated Complaint: Abd pain Time Seen by Provider: 08/30/19 15:16 - History of Present Illness Initial Comments: Patient is a 34-year-old female presenting to the emergency Department with complaints of abdominal pain times one day. Patient has significant abdominal history in the past year and a half which includes bowel resection secondary to perforation, cholecystectomy and most recent a hernia repair one month ago by Dr. Mcfarlane. Patient still currently has a drainage tube in place. She states that the area around the tube has been draining slightly and is painful. She has been having follow-ups weekly with Dr. Mcfarlane. Most recent was on . Patient states yesterday she started noticing sharp pains in bi lateral lower abdomen. There is no alleviating factors. Patient also reports nausea with the pain. She states she did take one of her Effie as at home this morning which did not help with the pain. She denies fever, chills, vomiting, diarrhea. She denies any cough or chest pain. She has no other complaints at this time. Upon arrival to the ER, her vital signs are stable, afebrile. (Susan Ramey) - Related Data Home Medications Medication Instructions Recorded Confirmed Levothyroxine Sodium [Synthroid] 50 mcg PO DAILY 05/05/14 08/30/19 traZODone HCL [Desyrel] 100 mg PO HS 04/04/15 08/30/19 Albuterol Inhaler (Bulk) [Ventolin 2 puff INHALATION RT-Q6H PRN 05/23/16 08/30/19 Hfa Inhaler (Bulk)] Meloxicam [Mobic] 15 mg PO DAILY 12/31/16 08/30/19 Topiramate [Trokendi Xr] 200 mg PO DAILY 07/19/17 08/30/19 Venlafaxine HCl [Effexor XR] 225 mg PO HS 07/19/17 08/30/19 Butalb/Acetaminophen/Caffeine 1 cap PO Q4HR PRN 08/28/17 08/30/19 [Fioricet 50-300-40 mg Capsule] HYDROcodone/APAP 7.5-325MG [[place] 1 tab PO TID PRN 03/01/18 08/30/19 7.5-325] Lisdexamfetamine Dimesylate 70 mg PO QAM 11/16/18 08/30/19 [Vyvanse] rOPINIRole HCL [Requip] 0.5 mg PO HS 01/23/19 08/30/19 Famotidine [Pepcid] 40 mg PO DAILY 07/28/19 08/30/19 Blisovi Fe 1.5-30(21) 1 tab PO HS 08/30/19 08/30/19 Cetirizine HCl [Zyrtec] 10 mg PO DAILY 08/30/19 08/30/19 Erenumab-Aooe [Aimovig 140 mg SQ Q28D 08/30/19 08/30/19 Autoinjector] Pregabalin [Lyrica] 150 mg PO BID 08/30/19 08/30/19 ARIPiprazole [Abilify] 2 mg PO DAILY 08/31/19 08/31/19 Allergies Allergy/AdvReac Type Severity Reaction Status Date / Time tramadol Allergy Hallucinati Verified 08/30/19 20:14 ons valacyclovir HCl AdvReac BLURRED Verified 08/30/19 20:14 [From Valtrex] VISION Review of Systems ROS Other: All systems not noted in ROS Statement are negative. <Susan Ramey L - Last Filed: 08/30/19 16:05> ROS Other: All systems not noted in ROS Statement are negative. <Nataliia Bender - Last Filed: 08/30/19 17:30> ROS Other: All systems not noted in ROS Statement are negative. <Cat Flores - Last Filed: 09/01/19 23:48> ROS Statement: Those systems with pertinent positive or pertinent negative responses have been documented in the HPI. Past Medical History Past Medical History: Asthma, Fibromyalgia, GERD/Reflux, Musculoskeletal Disorder, Sleep Apnea/CPAP/BIPAP, Thyroid Disorder Additional Past Medical History / Comment(s): Hx Migraines, DDD , IBS, NO CPAP used. HX PERFORATED DIVERTICULITIS W/ PAST Colostomy 12/2017. History of Any Multi-Drug Resistant Organisms: None Reported Past Surgical History: Bowel Resection, Breast Surgery, Cholecystectomy, Hernia Repair Additional Past Surgical History / Comment(s): Dental, Rt Breast biopsy. Colostomy 12/2017, THEN Reversal 02/2018. Cholecystectomy - 4-06-01 Past Anesthesia/Blood Transfusion Reactions: No Reported Reaction Past Psychological History: Anxiety, Bipolar, Depression Smoking Status: Never smoker Past Alcohol Use History: Rare Past Drug Use History: None Reported - Past Family History Mother History Unknown: Yes Family Medical History: COPD Additional Family Medical History / Comment(s): depression, anxiety Brother(s) Family Medical History: Diabetes Mellitus <Susan Ramey - Last Filed: 08/30/19 16:05> General Exam Limitations: no limitations <Susan Ramey - Last Filed: 08/30/19 16:05> - General Exam Comments Initial Comments: GENERAL: Patient is teary-eyed on exam, in no acute distress. HEAD: Atraumatic, normocephalic. EYES: Pupils equal round and reactive to light, extraocular movements intact, sclera anicteric, conjunctiva are normal. ENT: TMs normal, nares patent, oropharynx clear without exudates. Moist mucous membranes. NECK: Normal range of motion, supple without lymphadenopathy or JVD. LUNGS: Breath sounds clear to auscultation bilaterally and equal. No wheezes rales or rhonchi. HEART: Regular rate and rhythm without murmurs, rubs or gallops. ABDOMEN: Bilateral lower quadrant tenderness on palpation, increased on the left. Drainage tube present in the left upper quadrant with some mild erythema surrounding the tube. Abdominal scar from bowel resection with some hardened scar tissue underneath. Mild guarding present. Normoactive bowel sounds. : Deferred EXTREMITIES: Normal range of motion, no pitting or edema. No clubbing or cyanosis. NEUROLOGICAL: Normal speech, normal gait. PSYCH: Normal mood, normal affect. SKIN: Warm, Dry, normal turgor, no rashes or lesions noted. (Susan Ramey) Course <Susan Ramey - Last Filed: 08/30/19 16:05> Vital Signs 08/30/19 08/30/19 08/30/19 15:00 16:50 17:10 Temperature 98.4 F Pulse Rate 76 65 77 Pulse Rate [ Left] Respiratory 18 18 18 Rate Blood Pressure 111/70 102/56 114/70 Blood Pressure [Left Arm] O2 Sat by Pulse 100 100 99 Oximetry 08/30/19 08/30/19 17:30 17:42 Temperature 98.4 F Pulse Rate 69 Pulse Rate [ 65 Left] Respiratory 18 19 Rate Blood Pressure 114/70 Blood Pressure 110/73 [Left Arm] O2 Sat by Pulse 100 Oximetry - Reevaluation(s) Reevaluation #1: 08/30/19 16:09 Care was handed over to Nataliia at shift change. (Susan Ramey) Medical Decision Making - Lab Data Result diagrams: 08/30/19 16:00 08/30/19 16:00 <Nataliia Bender - Last Filed: 08/30/19 17:30> - Lab Data Result diagrams: 08/30/19 16:00 08/30/19 16:00 <Cat Flores - Last Filed: 09/01/19 23:48> - Medical Decision Making 34yo female presenting today for chief complaint of abdominal pain I did receive this patient as a signout from my colleague Susan Ramey I do agree with obta ined history and physical examination findings, which I repeated personally. CT was pending at the time of signout as well as laboratory studies. Patient has no significant leukocytosis, however his CT study shows findings consistent with possible worsening infection near the drainage site which is the anterior subcutaneous tissues. Patient states she has been seeing increasing drainage from the site and around the drainage tube. I discussed the case with him provider who contacted patient's surgeon Dr. Meadows he recommended (Nataliia Bender) I was available for consultation in the emergency department. The history and physical exam were done by the midlevel provider. I was consulted for this patients care. I reviewed the case with the midlevel provider and based on their presentation of the patient, I agree with the assessment, medical decision making and plan of care as documented. I spoke with Dr. Meadows who agreed to admit the patient and requested IV antibiotics. Chart was dictated using [employer]igator[employer] dictation software. Attempts were made to correct any dictation errors however some typographical errors may persist. Patient was seen during a national state of emergency due to the Covid-19 pandemic. (Cat Flores) - Lab Data Lab Results 08/30/19 08/30/19 08/30/19 Range/Units 16:00 16:00 16:00 WBC 9.2 (3.8-10.6) k/uL RBC 4.08 (3.80-5.40) m/uL Hgb 11.2 L (11.4-16.0) gm/dL Hct 35.7 (34.0-46.0) % MCV 87.5 (80.0-100.0) fL MCH 27.4 (25.0-35.0) pg MCHC 31.3 (31.0-37.0) g/dL RDW 13.1 (11.5-15.5) % Plt Count 506 H (150-450) k/uL Neutrophils % 62 % Lymphocytes % 27 % Monocytes % 5 % Eosinophils % 4 % Basophils % 1 % Neutrophils # 5.7 (1.3-7.7) k/uL Lymphocytes # 2.5 (1.0-4.8) k/uL Monocytes # 0.5 (0-1.0) k/uL Eosinophils # 0.3 (0-0.7) k/uL Basophils # 0.0 (0-0.2) k/uL Hypochromasia Slight PT 9.6 (9.0-12.0) sec INR 0.9 (<1.2) APTT 23.4 (22.0-30.0) sec Sodium 139 (137-145) mmol/L Potassium 4.4 (3.5-5.1) mmol/L Chloride 108 H (98-107) mmol/L Carbon Dioxide 25 (22-30) mmol/L Anion Gap 6 mmol/L BUN 15 (7-17) mg/dL Creatinine 0.75 (0.52-1.04) mg/dL Est GFR (CKD-EPI)AfAm >90 (>60 ml/min/1.73 sqM) Est GFR (CKD-EPI)NonAf >90 (>60 ml/min/1.73 sqM) Glucose 107 H (74-99) mg/dL Plasma Lactic Acid Yobani (0.7-2.0) mmol/L Calcium 8.8 (8.4-10.2) mg/dL Total Bilirubin 0.1 L (0.2-1.3) mg/dL AST 21 (14-36) U/L ALT 17 (4-34) U/L Alkaline Phosphatase 96 (38-126) U/L Total Protein 6.6 (6.3-8.2) g/dL Albumin 3.6 (3.5-5.0) g/dL Amylase 75 (30-110) U/L Lipase 149 (23-300) U/L Urine Color Urine Appearance (Clear) Urine pH (5.0-8.0) Ur Specific [place] (1.001-1.035) Urine Protein (Negative) Urine Glucose (UA) (Negative) Urine Ketones (Negative) Urine Blood (Negative) Urine Nitrite (Negative) Urine Bilirubin (Negative) Urine Urobilinogen (<2.0) mg/dL Ur Leukocyte Esterase (Negative) Urine RBC (0-5) /hpf Urine WBC (0-5) /hpf Ur Squamous Epith Cells (0-4) /hpf Urine Bacteria (None) /hpf Urine Mucus (None) /hpf Urine HCG, Qual (Not Detectd) 08/30/19 08/30/19 08/30/19 Range/Units 16:00 16:00 16:00 WBC (3.8-10.6) k/uL RBC (3.80-5.40) m/uL Hgb (11.4-16.0) gm/dL Hct (34.0-46.0) % MCV (80.0-100.0) fL MCH (25.0-35.0) pg MCHC (31.0-37.0) g/dL RDW (11.5-15.5) % Plt Count (150-450) k/uL Neutrophils % % Lymphocytes % % Monocytes % % Eosinophils % % Basophils % % Neutrophils # (1.3-7.7) k/uL Lymphocytes # (1.0-4.8) k/uL Monocytes # (0-1.0) k/uL Eosinophils # (0-0.7) k/uL Basophils # (0-0.2) k/uL Hypochromasia PT (9.0-12.0) sec INR (<1.2) APTT (22.0-30.0) sec Sodium (137-145) mmol/L Potassium (3.5-5.1) mmol/L Chloride (98-107) mmol/L Carbon Dioxide (22-30) mmol/L Anion Gap mmol/L BUN (7-17) mg/dL Creatinine (0.52-1.04) mg/dL Est GFR (CKD-EPI)AfAm (>60 ml/min/1.73 sqM) Est GFR (CKD-EPI)NonAf (>60 ml/min/1.73 sqM) Glucose (74-99) mg/dL Plasma Lactic Acid Yobani 0.9 (0.7-2.0) mmol/L Calcium (8.4-10.2) mg/dL Total Bilirubin (0.2-1.3) mg/dL AST (14-36) U/L ALT (4-34) U/L Alkaline Phosphatase (38-126) U/L Total Protein (6.3-8.2) g/dL Albumin (3.5-5.0) g/dL Amylase (30-110) U/L Lipase (23-300) U/L Urine Color Yellow Urine Appearance Cloudy H (Clear) Urine pH 6.0 (5.0-8.0) Ur Specific [place] 1.032 (1.001-1.035) Urine Protein Trace H (Negative) Urine Glucose (UA) Negative (Negative) Urine Ketones Negative (Negative) Urine Blood Negative (Negative) Urine Nitrite Negative (Negative) Urine Bilirubin Negative (Negative) Urine Urobilinogen 6.0 (<2.0) mg/dL Ur Leukocyte Esterase Small H (Negative) Urine RBC 2 (0-5) /hpf Urine WBC 5 (0-5) /hpf Ur Squamous Epith Cells 9 H (0-4) /hpf Urine Bacteria Moderate H (None) /hpf Urine Mucus Many H (None) /hpf Urine HCG, Qual Not Detected (Not Detectd) Disposition <Susan Ramey - Last Filed: 08/30/19 16:05> Is patient prescribed a controlled substance at d/c from ED?: No Time of Disposition: 17:31 Decision to Admit Reason: Admit from EC Decision Date: 08/30/19 Decision Time: 17:31 <Nataliia Bender - Last Filed: 08/30/19 17:30> <Cat Flores - Last Filed: 04/20/20 23:48> Clinical Impression: Surgical site infection Disposition: ADMITTED IP TO THIS HOSP Condition: Stable
[2019-08-30 16:21] LABS: Basophils % (A) 1 %; Eosinophils # (A) 0.3 k/uL (0-0.7); Eosinophils % (A) 4 %; HCT 35.7 % (34.0-46.0); HGB 11.2 gm/dL (11.4-16.0); Hypochromasia Slight; Lymphocytes # (A) 2.5 k/uL (1.0-4.8); Lymphocytes % (A) 27 %; MCH 27.4 pg (25.0-35.0); MCHC 31.3 g/dL (31.0-37.0); MCV 87.5 fL (80.0-100.0); Monocytes # (A) 0.5 k/uL (0-1.0); Monocytes % (A) 5 %; Neutrophils # (A) 5.7 k/uL (1.3-7.7); Neutrophils % (A) 62 %; Platelet Count 506 k/uL (150-450); RBC 4.08 m/uL (3.80-5.40); RDW 13.1 % (11.5-15.5); WBC 9.2 k/uL (3.8-10.6)
[2019-08-30 16:29] LABS: Appearance,Urine Cloudy (Clear); Bacteria,Urine Moderate /hpf; Bilirubin,Urine Negative (Negative); Blood,Urine Negative (Negative); Color,Urine Yellow; Glucose,Urine (UA) Negative (Negative); Ketones,Urine Negative (Negative); Leukocyte Esterase,Urine Small (Negative); Mucus,Urine Many /hpf; Nitrite,Urine Negative (Negative); Protein,Urine Trace (Negative); RBC,Urine 2 /hpf (0-5); Specific Gravity,Urine 1.032 (1.001-1.035); Squamous Epithelial Cell,Urine 9 /hpf (0-4); WBC,Urine 5 /hpf (0-5)
[2019-08-30 16:37] LABS: INR 0.9 (<1.2); Prothrombin Time 9.6 sec (9.0-12.0)
[2019-08-30 16:38] LABS: Partial Thromboplastin Time 23.4 sec (22.0-30.0)
[2019-08-30 16:40] LABS: ALT 17 U/L (4-34); AST 21 U/L (14-36); African American GFR (CKD) >90 (>60 ml/min/1.73 sqM); Albumin 3.6 g/dL (3.5-5.0); Alkaline Phosphatase 96 U/L (38-126); Amylase 75 U/L (30-110); Anion Gap 6 mmol/L; Blood Urea Nitrogen 15 mg/dL (7-17); Calcium 8.8 mg/dL (8.4-10.2); Carbon Dioxide 25 mmol/L (22-30); Chloride 108 mmol/L (98-107); Glucose 107 mg/dL (74-99); Non-African American GFR(CKD) >90 (>60 ml/min/1.73 sqM); Potassium 4.4 mmol/L (3.5-5.1); Sodium 139 mmol/L (137-145); Total Bilirubin 0.1 mg/dL (0.2-1.3); Total Protein 6.6 g/dL (6.3-8.2)
--- NOTE | 2019-08-30 17:06 | CT ---
EXAMINATION TYPE: CT abdomen pelvis w con DATE OF EXAM: 08/30/2019 COMPARISON: 08/02/2019 HISTORY: Abdominal pain, hx of hernia repair CT DLP: 2045.9 mGycm Automated exposure control for dose reduction was used. CONTRAST: Performed with IV Contrast, patient injected with 100 mL of Isovue 300. The lung bases are clear. There is no pleural effusion. Heart size is normal. There is no pericardial effusion. Liver spleen pancreas appear normal. There are clips from cholecystectomy. Stomach is intact. The cynthia e ducts are not dilated. There is no adrenal mass. Kidneys show satisfactory contrast opacification. There is no hydronephrosi s. Ureters are not dilated. Bladder is almost empty. There is fat stranding and increased density involving the anterior abdominal wall in the midline and towards the left side. There is drainage catheter in the subcutaneous tissues over the anterior abdo mariano wall. Area of increased density measures up to 2 cm in thickness. There is no evidence of ascites. There is no free air. There is fat stranding in the omental fat with in the abdomen over the drainage site. This area of involvement measures 11 x 4 cm. There is no evidence of a bowel obstruction. Appendix appears normal. Uterus is anteverted. Lumbar sp ine is intact. IMPRESSION: Subcutaneous density over the anterior abdominal wall with drainage catheter. This density is increas ed in thickness and overall size compared to previous exam that suggests increasing infection or hemo rrhage. Omental fat stranding unchanged.
[2019-08-30] MEDS ORDERED: PIPERACILLIN-TAZOBACTAM 3.375 GM in SODIUM CHLORIDE 0.9% 100 ML IVPB STA (17:10)
[2019-08-30] MEDS ORDERED: ONDANSETRON 4 MG/2 ML VIAL IVP PRN (17:29)
[2019-08-30] MEDS ORDERED: NALOXONE 0.4 MG/ML 1 ML VIAL IV PRN (17:29)
[2019-08-30] MEDS: SODIUM CHLORIDE 0.9% 1,000 ML IV SCH (17:50)
[2019-08-30] MEDS: MORPHINE SULFATE 4 MG/ML SYRINGE IV PRN (21:33)
[2019-08-31] MEDS: SODIUM CHLORIDE 0.9% 1,000 ML IV SCH ×2 (04:43→14:21)
[2019-08-31] MEDS ORDERED: ALBUTEROL NEBULIZED 2.5 MG/3 ML INHALATION PRN (10:13)
[2019-08-31] MEDS ORDERED: BUTALB/APAP/CAFF 50-325-40MG TAB PO PRN (10:13)
[2019-08-31] MEDS ORDERED: ACETAMINOPHEN TAB 325 MG TAB PO PRN (10:15)
[2019-08-31] MEDS: FAMOTIDINE 20 MG TAB PO SCH (10:52)
[2019-08-31] MEDS: PREGABALIN 75 MG CAP PO SCH ×2 (10:52→21:40)
[2019-08-31] MEDS: MELOXICAM 7.5 MG TAB PO SCH (10:52)
[2019-08-31] MEDS: LORATADINE 10 MG TAB PO SCH (10:53)
[2019-08-31] MEDS: LEVOTHYROXINE 50 MCG TAB PO SCH (10:54)
[2019-08-31] MEDS: TOPIRAMATE 100 MG TAB PO SCH ×2 (10:57→21:40)
--- NOTE | 2019-08-31 13:24 | P.GSHP ---
History of Present Illness H&P Date: 08/31/19 Chief Complaint: Abdominal pain Is a 34-year-old female who was admitted through emergency complaints of abdominal pain. Patient states that she had significant abdominal pain in the right left lower quadrant yesterday. Patient's had complaints of pain at her ADAN drain site. Patient has had a history of previous open repair of incisional hernia. Patient denies any fevers chills. She denies any purulent drainage from her ADAN drain. Past Medical History Past Medical History: Asthma, Fibromyalgia, GERD/Reflux, Musculoskeletal Dis order, Sleep Apnea/CPAP/BIPAP, Thyroid Disorder Additional Past Medical History / Comment(s): Hx Migraines, DDD , IBS, NO CPAP used. HX PERFORATED DIVERTICULITIS W/ PAST Colostomy 12/2017. History of Any Multi-Drug Resistant Organisms: None Reported Past Surgical History: Bowel Resection, Breast Surgery, Cholecystectomy, Hernia Repair Additional Past Surgical History / Comment(s): Dental, Rt Breast biopsy. Colostomy 12/2017, THEN Reversal 02/2018. Cholecystectomy - 08-12-18 Past Anesthesia/Blood Transfusion Reactions: No Reported Reaction Past Psychological History: Anxiety, Bipolar, Depression Additional Psychological History / Comment(s): eating disorder-binge eater Smoking Status: Never smoker Past Alcohol Use History: Rare Past Drug Use History: None Reported - Past Family History Mother History Unknown: Yes Family Medical History: COPD Additional Family Medical History / Comment(s): depression, anxiety Brother(s) Family Medical History: Diabetes Mellitus Medications and Allergies Home Medications Medication Instructions Recorded Confirmed Type Levothyroxine Sodium [Synthroid] 50 mcg PO DAILY 05/05/14 08/30/19 History traZODone HCL [Desyrel] 100 mg PO HS 04/04/15 08/30/19 History Albuterol Inhaler (Bulk) [Ventolin 2 puff INHALATION RT-Q6H PRN 05/23/16 08/30/19 History Hfa Inhaler (Bulk)] Meloxicam [Mobic] 15 mg PO DAILY 12/31/16 08/30/19 History Topiramate [Trokendi Xr] 200 mg PO DAILY 07/19/17 08/30/19 History Venlafaxine HCl [Effexor XR] 225 mg PO HS 07/19/17 08/30/19 History Butalb/Acetaminophen/Caffeine 1 cap PO Q4HR PRN 08/28/17 08/30/19 History [Fioricet 50-300-40 mg Capsule] HYDROcodone/APAP 7.5-325MG [[place] 1 tab PO TID PRN 03/01/18 08/30/19 History 7.5-325] Lisdexamfetamine Dimesylate 70 mg PO QAM 11/16/18 08/30/19 History [Vyvanse] rOPINIRole HCL [Requip] 0.5 mg PO HS 01/23/19 08/30/19 History Famotidine [Pepcid] 40 mg PO DAILY 07/28/19 08/30/19 History Blisovi Fe 1.5-30(21) 1 tab PO HS 08/30/19 08/30/19 History Cetirizine HCl [Zyrtec] 10 mg PO DAILY 08/30/19 08/30/19 History Erenumab-Aooe [Aimovig 140 mg SQ Q28D 08/30/19 08/30/19 History Autoinjector] Pregabalin [Lyrica] 150 mg PO BID 08/30/19 08/30/19 History ARIPiprazole [Abilify] 2 mg PO DAILY 08/31/19 08/31/19 History Allergies Allergy/AdvReac Type Severity Reaction Status Date / Time tramadol Allergy Hallucinati Verified 08/30/19 20:14 ons valacyclovir HCl AdvReac BLURRED Verified 08/30/19 20:14 [From Valtrex] VISION Surgical - Exam Vital Signs Temp Pulse Resp BP Pulse Ox 98.4 F 76 18 111/70 100 08/30/19 15:00 08/30/19 15:00 08/30/19 15:00 08/30/19 15:00 08/30/19 15:00 - General well developed, well nourished, no distress - Eyes PERRL - ENT normal pinna - Neck no masses - Respiratory normal expansion - Cardiovascular Rhythm: regular - Abdomen Mild right left lower quadrant abdominal pain. There is no evidence of any inflammatory changes or erythema of her incision. The ADAN drain has approximately 1 her sees of serosanguineous fluid. Abdomen: soft Results - Labs 08/30/19 16:00 08/30/19 16:00 Abnormal Lab Results - Last 24 Hours (Table) 08/30/19 08/30/19 08/30/19 Range/Units 16:00 16:00 16:00 Hgb 11.2 L (11.4-16.0) gm/dL Plt Count 506 H (150-450) k/uL Chloride 108 H (98-107) mmol/L Glucose 107 H (74-99) mg/dL Total Bilirubin 0.1 L (0.2-1.3) mg/dL Urine Appearance Cloudy H (Clear) Urine Protein Trace H (Negative) Ur Leukocyte Esterase Small H (Negative) Ur Squamous Epith Cells 9 H (0-4) /hpf Urine Bacteria Moderate H (None) /hpf Urine Mucus Many H (None) /hpf Diabetes panel 08/30/19 Range/Units 16:00 Sodium 139 (137-145) mmol/L Potassium 4.4 (3.5-5.1) mmol/L Chloride 108 H (98-107) mmol/L Carbon Dioxide 25 (22-30) mmol/L BUN 15 (7-17) mg/dL Creatinine 0.75 (0.52-1.04) mg/dL Glucose 107 H (74-99) mg/dL Calcium 8.8 (8.4-10.2) mg/dL AST 21 (14-36) U/L ALT 17 (4-34) U/L Alkaline Phosphatase 96 (38-126) U/L Total Protein 6.6 (6.3-8.2) g/dL Albumin 3.6 (3.5-5.0) g/dL Calcium panel 08/30/19 Range/Units 16:00 Calcium 8.8 (8.4-10.2) mg/dL Albumin 3.6 (3.5-5.0) g/dL Pituitary panel 08/30/19 Range/Units 16:00 Sodium 139 (137-145) mmol/L Potassium 4.4 (3.5-5.1) mmol/L Chloride 108 H (98-107) mmol/L Carbon Dioxide 25 (22-30) mmol/L BUN 15 (7-17) mg/dL Creatinine 0.75 (0.52-1.04) mg/dL Glucose 107 H (74-99) mg/dL Calcium 8.8 (8.4-10.2) mg/dL Adrenal panel 08/30/19 Range/Units 16:00 Sodium 139 (137-145) mmol/L Potassium 4.4 (3.5-5.1) mmol/L Chloride 108 H (98-107) mmol/L Carbon Dioxide 25 (22-30) mmol/L BUN 15 (7-17) mg/dL Creatinine 0.75 (0.52-1.04) mg/dL Glucose 107 H (74-99) mg/dL Calcium 8.8 (8.4-10.2) mg/dL Total Bilirubin 0.1 L (0.2-1.3) mg/dL AST 21 (14-36) U/L ALT 17 (4-34) U/L Alkaline Phosphatase 96 (38-126) U/L Total Protein 6.6 (6.3-8.2) g/dL Albumin 3.6 (3.5-5.0) g/dL Assessment and Plan Assessment: Postoperative seroma. There is no evidence of infection. Patient continue receive IV antibiotics. She'll be evaluated in the a.m. for possible discharge.
[2019-08-31] MEDS: VENLAFAXINE HCL ER 75 MG CAP PO SCH (21:39)
[2019-08-31] MEDS: traZODone HCL 100 MG TAB PO SCH (21:40)
[2019-08-31] MEDS: MORPHINE SULFATE 4 MG/ML SYRINGE IV PRN (21:40)
[2019-08-31] MEDS: BLISOVI FE PO SCH (21:46)
[2019-09-01] MEDS: SODIUM CHLORIDE 0.9% 1,000 ML IV SCH ×3 (00:45→20:47)
[2019-09-01] MEDS: LEVOTHYROXINE 50 MCG TAB PO SCH (05:50)
[2019-09-01] MEDS: FAMOTIDINE 20 MG TAB PO SCH (08:01)
[2019-09-01] MEDS: LORATADINE 10 MG TAB PO SCH (08:01)
[2019-09-01] MEDS: MELOXICAM 7.5 MG TAB PO SCH (08:01)
[2019-09-01] MEDS: PREGABALIN 75 MG CAP PO SCH ×2 (08:01→20:47)
[2019-09-01] MEDS: TOPIRAMATE 100 MG TAB PO SCH ×2 (08:01→20:47)
--- NOTE | 2019-09-01 15:25 | P.PN ---
Subjective Progress Note Date: 09/01/19 CHIEF COMPLAINT: Abdominal pain HISTORY OF PRESENT ILLNESS: Patient examined at the bedside. She reports mild abdominal discomfort. ADAN drain with serosanguineous drainage. Vital signs stable. She is afebrile. PHYSICAL EXAM: VITAL SIGNS: Reviewed. GENERAL: Well-developed in no acute distress. HEENT: No sclera icterus. Extraocular movements grossly intact. Moist buccal mucosa. Head is atraumatic, normocephalic. ABDOMEN: Soft. Nondistended. Mild tenderness to left and mid abdomen with palpation. ADAN drain with serosanguineous drainage. NEUROLOGIC: Alert and oriented. Cranial nerves II through XII grossly intact. ASSESSMENT: 1. Postoperative seroma 2. History of repair of incisional hernia with mesh, July 2019 PLAN: -Continue diet as tolerated -Monitor ADAN drainage -Pain control -Continue antibiotics -Hold discharge today per Dr. Meadows. Will re-evaluate patient tomorrow. Dr. Meadows discussed possibility of exploratory laparotomy with patient if her pain does not improve. Nurse practitioner note has been reviewed by physician. Signing provider agrees with the documented findings, assessment, and plan of care. Objective - Vital Signs Vital signs: Vital Signs Temp 98.2 F 09/01/19 07:00 Pulse 77 09/01/19 07:00 Resp 17 09/01/19 07:00 BP 111/80 09/01/19 07:00 Pulse Ox 98 09/01/19 07:00 Intake & Output 08/31/19 09/01/19 09/01/19 18:59 06:59 18:59 Intake Total 1600 Output Total 240 Balance 1360 Intake: Intake, IV Titration 700 Amount Piperacillin-Tazobactam 3 100 .375 gm In Sodium Chloride 0.9% 100 ml @ 200 mls/hr IVPB ONCE STA Rx#:[id number] Sodium Chloride 0.9% 1, 600 000 ml @ 100 mls/hr IV . Q10H NATY Rx#:[id number] Oral 900 Output: Drainage 240 Left Upper Abdomen 240 Other: Voiding Method Toilet Toilet # Voids 2 - Labs CBC & Chem 7: 08/30/19 16:00 08/30/19 16:00 Labs: Microbiology - Last 24 Hours (Table) 08/30/19 17:24 Blood Culture - Preliminary Blood No Growth after 24 hours
[2019-09-01] MEDS: MORPHINE SULFATE 4 MG/ML SYRINGE IV PRN (19:43)
[2019-09-01] MEDS: BLISOVI FE PO SCH (20:46)
[2019-09-01] MEDS: VENLAFAXINE HCL ER 75 MG CAP PO SCH (20:47)
[2019-09-01] MEDS: traZODone HCL 100 MG TAB PO SCH (20:47)
[2019-09-02] MEDS: LEVOTHYROXINE 50 MCG TAB PO SCH (06:21)
[2019-09-02] MEDS: SODIUM CHLORIDE 0.9% 1,000 ML IV SCH ×2 (06:21→16:04)
[2019-09-02] MEDS: PREGABALIN 75 MG CAP PO SCH ×2 (08:35→20:11)
[2019-09-02] MEDS: MELOXICAM 7.5 MG TAB PO SCH (08:35)
[2019-09-02] MEDS: LORATADINE 10 MG TAB PO SCH (08:36)
[2019-09-02] MEDS: FAMOTIDINE 20 MG TAB PO SCH (08:36)
[2019-09-02] MEDS: TOPIRAMATE 100 MG TAB PO SCH ×2 (08:36→20:12)
[2019-09-02] MEDS: HYDROcodone/APAP 7.5-325MG 1 EACH TAB PO PRN (08:38)
--- NOTE | 2019-09-02 13:13 | P.PN ---
Subjective Progress Note Date: 09/02/19 CHIEF COMPLAINT: Abdominal pain HISTORY OF PRESENT ILLNESS: Patient examined at the bedside. She continues to report abdominal pain and states it is about the same as yesterday. ADAN drain with serosanguineous drainage. Vital signs stable. She is afebrile. PHYSICAL EXAM: VITAL SIGNS: Reviewed. GENERAL: Well-developed in no acute distress. HEENT: No sclera icterus. Extraocular movements grossly intact. Moist buccal mucosa. Head is atraumatic, normocephalic. ABDOMEN: Soft. Nondistended. Mild tenderness to left and mid abdomen with palpation. ADAN drain with serosanguineous drainage. NEUROLOGIC: Alert and oriented. Cranial nerves II through XII grossly intact. ASSESSMENT: 1. Postoperative seroma 2. History of repair of incisional hernia with mesh, July 2019 PLAN: -Continue diet as tolerated -Monitor ADAN drainage -Pain control -Continue antibiotics -Nothing by mouth at midnight -Patient to undergo drainage of seroma and possible removal of mesh tomorrow with Dr. Maedows Nurse practitioner note has been reviewed by physician. Signing provider agrees with the documented findings, assessment, and plan of care. Objective - Vital Signs Vital signs: Vital Signs Temp 98.3 F 09/02/19 07:00 Pulse 54 L 09/02/19 07:00 Resp 18 09/02/19 07:00 BP 116/72 09/02/19 07:00 Pulse Ox 98 09/02/19 07:00 Intake & Output 09/01/19 09/02/19 09/02/19 18:59 06:59 18:59 Output Total 65 Balance -65 Output: Drainage 65 Left Upper Abdomen 65 Other: # Voids 2 - Labs CBC & Chem 7: 08/30/19 16:00 08/30/19 16:00 Labs: Microbiology - Last 24 Hours (Table) 08/30/19 17:24 Blood Culture - Preliminary Blood No Growth after 48 hours
[2019-09-02] MEDS: BLISOVI FE PO SCH (20:06)
[2019-09-02] MEDS: MORPHINE SULFATE 4 MG/ML SYRINGE IV PRN (20:11)
[2019-09-02] MEDS: traZODone HCL 100 MG TAB PO SCH (20:11)
[2019-09-02] MEDS: VENLAFAXINE HCL ER 75 MG CAP PO SCH (20:12)
[2019-09-03] MEDS: SODIUM CHLORIDE 0.9% 1,000 ML IV SCH ×3 (02:00→23:17)
[2019-09-03] MEDS: LEVOTHYROXINE 50 MCG TAB PO SCH (05:23)
[2019-09-03] MEDS ORDERED: IV FLUID CONTINUATION 1,000 ML IV ONE (08:31)
[2019-09-03] MEDS ORDERED: HEPARIN SODIUM,PORCINE 5,000 UNIT/ML 1 ML VIAL SQ ONE (09:00)
[2019-09-03] MEDS ORDERED: fentaNYL (PF) 50 MCG/ML 2 ML AMP ONE (09:14)
[2019-09-03] MEDS ORDERED: SUCCINYLCHOLINE CHLORIDE 100 MG/5 ML SYR IV ONE (09:14)
[2019-09-03] MEDS ORDERED: MIDAZOLAM 2 MG/2 ML VIAL ONE (09:14)
[2019-09-03] MEDS ORDERED: PROPOFOL 10 MG/ML 20 ML VIAL IV ONE (09:14)
[2019-09-03] MEDS ORDERED: KETOROLAC 30 MG/ML 1 ML VIAL ONE (09:14)
[2019-09-03] MEDS ORDERED: LIDOCAINE 1% INJ 10MG/ML (20 ML MDV) ONE (09:14)
[2019-09-03] MEDS ORDERED: SODIUM CHLORIDE 0.9% 100 ML with ceFAZolin 2,000 MG IV ONE ×2 (09:35)
[2019-09-03] MEDS ORDERED: LACTATED RINGERS 1,000 ML IV ONE (09:39)
--- NOTE | 2019-09-03 10:01 | P.OP ---
Date of Procedure: 09/03/19 Preoperative Diagnosis: Wound infection Infected seroma Postoperative Diagnosis: Wound infection Infected seroma Procedure(s) Performed: Incision and drainage of infected seroma Removal of mesh Anesthesia: GILL Surgeon: Brayan Meadows Estimated Blood Loss (ml): 5 Pathology: other (Wound culture, mesh) Condition: stable Disposition: PACU Description of Procedure: The patient's placed on the operative table in supine position she received general anesthesia. Her abdomen was prepared usual fashion. Her ADAN drain is removed. The skin was incised at the previous scar. The subcutaneous tissue divided. The seroma cavity is entered. A culture was obtained. There was a pi melissa of mesh that was not incorporated into tissue. This piece was excised. The pathology. The wound was then irrigated there is no bleeding seen. The wound VAC device was placed on the wound. The black foam was used for the wound VAC. Patient top she will was sent to recovery in stable condition.
[2019-09-03] MEDS ORDERED: HYDROmorphone 0.5 MG/0.5 ML SYRINGE IVP ONE (10:15)
--- NOTE | 2019-09-03 11:43 | P.CONS ---
History of Present Illness - Reason for Consult Consult date: 09/03/19 Wound care - History of Present Illness This is 34-year-old pleasant female being seen on 4 S. for a ulceration to the abdomen. Patient underwent an I&D with mesh removal related to abdominal infection secondary to incisional hernia repair. Patient was complaining of pain to her ADAN site. Wound VAC with black foam applied post surgery at continuous 125 mm/Hg pressure. Patient's past medical history significant for asthma, fiber myalgia, acid reflux, sleep apnea utilizing CPAP machine, hyperthyroidism patient has history of perforated diverticulum latus with a past colostomy and reversal. Review of Systems Review Of Systems: Constitutional: No fever, no chills, no night sweats. No weight change. No weakness, fatigue or lethargy. No daytime sleepiness. Integumentary:reports wounds, no lesions. No rash or pruritus. No unusual bruising. No change in hair or nails. Past Medical History Past Medical History: Asthma, Fibromyalgia, GERD/Reflux, Musculoskeletal Disorder, Sleep Apnea/CPAP/BIPAP, Thyroid Disorder Additional Past Medical History / Comment(s): Hx Migraines, DDD , IBS, NO CPAP used. HX PERFORATED DIVERTICULITIS W/ PAST Colostomy 12/2017. History of Any Multi-Drug Resistant Organisms: None Reported Past Surgical History: Bowel Resection, Breast Surgery, Cholecystectomy, Hernia Repair Additional Past Surgical History / Comment(s): Dental, Rt Breast biopsy. Colostomy 12/2017, THEN Reversal 02/2018. Cholecystectomy - 08-12-18 Past Anesthesia/Blood Transfusion Reactions: No Reported Reaction Past Psychological History: Anxiety, Bipolar, Depression Additional Psychological History / Comment(s): eating disorder-binge eater Smoking Status: Never smoker Past Alcohol Use History: Rare Past Drug Use History: None Reported - Past Family History Mother History Unknown: Yes Family Medical History: COPD Additional Family Medical History / Comment(s): depression, anxiety Brother(s) Family Medical History: Diabetes Mellitus Medications and Allergies Home Medications Medication Instructions Recorded Confirmed Type Levothyroxine Sodium [Synthroid] 50 mcg PO DAILY 05/05/14 08/30/19 History traZODone HCL [Desyrel] 100 mg PO HS 04/04/15 08/30/19 History Albuterol Inhaler (Bulk) [Ventolin 2 puff INHALATION RT-Q6H PRN 05/23/16 08/30/19 History Hfa Inhaler (Bulk)] Meloxicam [Mobic] 15 mg PO DAILY 12/31/16 08/30/19 History Topiramate [Trokendi Xr] 200 mg PO DAILY 07/19/17 08/30/19 History Venlafaxine HCl [Effexor XR] 225 mg PO HS 07/19/17 08/30/19 History Butalb/Acetaminophen/Caffeine 1 cap PO Q4HR PRN 08/28/17 08/30/19 History [Fioricet 50-300-40 mg Capsule] HYDROcodone/APAP 7.5-325MG [[place] 1 tab PO TID PRN 03/01/18 08/30/19 History 7.5-325] Lisdexamfetamine Dimesylate 70 mg PO QAM 11/16/18 08/30/19 History [Vyvanse] rOPINIRole HCL [Requip] 0.5 mg PO HS 01/23/19 08/30/19 History Famotidine [Pepcid] 40 mg PO DAILY 07/28/19 08/30/19 History Blisovi Fe 1.5-30(21) 1 tab PO HS 08/30/19 08/30/19 History Cetirizine HCl [Zyrtec] 10 mg PO DAILY 08/30/19 08/30/19 History Erenumab-Aooe [Aimovig 140 mg SQ Q28D 08/30/19 08/30/19 History Autoinjector] Pregabalin [Lyrica] 150 mg PO BID 08/30/19 08/30/19 History ARIPiprazole [Abilify] 2 mg PO DAILY 08/31/19 08/31/19 History Allergies Allergy/AdvReac Type Severity Reaction Status Date / Time tramadol Allergy Hallucinati Verified 08/30/19 20:14 ons valacyclovir HCl AdvReac BLURRED Verified 08/30/19 20:14 [From Valtrex] VISION Physical Exam Vitals: Vital Signs Temp Pulse Pulse Pulse Pulse Resp BP 09/03/19 10:29 65 16 132/78 09/03/19 10:14 60 16 130/74 09/03/19 09:59 97 F L 85 14 130/76 09/03/19 08:32 61 17 119/77 09/03/19 07:00 98.1 F 61 18 119/81 09/03/19 03:03 98.5 F 71 14 93/59 09/02/19 15:00 98.5 F 62 18 110/73 Pulse Ox 09/03/19 10:29 94 L 09/03/19 10:14 97 09/03/19 09:59 95 09/03/19 08:32 98 09/03/19 07:00 100 09/03/19 03:03 96 09/02/19 15:00 96 Intake and Output 09/02/19 09/03/19 09/03/19 22:59 06:59 14:59 Intake Total 480 600 Output Total 80 5 Balance 480 -80 595 Intake: IV 600 Oral 480 Output: Drainage 80 Left Upper Abdomen 80 Estimated Blood Loss 5 Other: # Voids 3 3 Physical exam: General Appearance: Alert, cooperative, no distress, appears stated age. Skin: Abdominal ulceration negative pressure therapy with black foam in place all other Skin color, texture, tugor normal, no rashes or lesions. Neurologic: Alert oriented x3 Results CBC & Chem 7: 08/30/19 16:00 08/30/19 16:00 Labs: Microbiology - Last 24 Hours (Table) 08/30/19 17:24 Blood Culture - Preliminary Blood No Growth after 72 hours Assessment and Plan (1) Non-pressure chronic ulcer of skin of other sites with fat layer exposed Current Visit: Yes Status: Acute Code(s): L98.492 - NON-PRS CHRONIC ULCER OF SKIN OF SITES W FAT LAYER EXPOSED SNOMED Code(s): 40890338 (2) Surgical site infection Current Visit: Yes Status: Acute Code(s): T81.49XA - INFECTION FOLLOWING A PROCEDURE, OTHER SURGICAL SITE, INIT SNOMED Code(s): 39856895 Plan: Continue with the negative pressure wound therapy utilizing black foam at continuous suction at 125 mmHg. Patient to continue with the wound VAC at home. Consult home care to facilitate wound VAC. During the transition from inpatient to outpatient utilize absorptive silver rope, saline moistened gauze, dry gauze, ABDs and secured with paper tape. Restart the wound VAC once available in the outpatient setting. Patient to follow-up in the wound care center to assist with management of the wound VAC. Patient was agreeable and verbalized understanding. Thank you kindly for the consultation. Any questions please contact the wound care center DNP note has been reviewed and discussed with Dr. Dennis and the impression and plan of care has been directed as dictated.
[2019-09-03] MEDS: FAMOTIDINE 20 MG TAB PO SCH (11:49)
[2019-09-03] MEDS: LORATADINE 10 MG TAB PO SCH (11:50)
[2019-09-03] MEDS: PREGABALIN 75 MG CAP PO SCH ×2 (11:50→20:40)
[2019-09-03] MEDS: MELOXICAM 7.5 MG TAB PO SCH (11:50)
[2019-09-03] MEDS: TOPIRAMATE 100 MG TAB PO SCH ×2 (11:51→20:40)
[2019-09-03] MEDS ORDERED: LACTATED RINGERS 1,000 ML IV SCH (13:11)
[2019-09-03] MEDS ORDERED: ONDANSETRON 4 MG/2 ML VIAL IVP ONE (13:11)
[2019-09-03] MEDS ORDERED: fentaNYL (PF) 50 MCG/ML 2 ML AMP IV PRN (13:11)
[2019-09-03] MEDS: MORPHINE SULFATE 4 MG/ML SYRINGE IV PRN ×2 (16:23→23:16)
[2019-09-03] MEDS: BLISOVI FE PO SCH (20:39)
[2019-09-03] MEDS: traZODone HCL 100 MG TAB PO SCH (20:41)
[2019-09-03] MEDS: VENLAFAXINE HCL ER 75 MG CAP PO SCH (20:41)
[2019-09-03] MEDS: HYDROcodone/APAP 7.5-325MG 1 EACH TAB PO PRN (20:43)
[2019-09-04] MEDS: LEVOTHYROXINE 50 MCG TAB PO SCH (05:05)
[2019-09-04] MEDS: FAMOTIDINE 20 MG TAB PO SCH (09:29)
[2019-09-04] MEDS: MELOXICAM 7.5 MG TAB PO SCH (09:29)
[2019-09-04] MEDS: PREGABALIN 75 MG CAP PO SCH (09:30)
[2019-09-04] MEDS: TOPIRAMATE 100 MG TAB PO SCH (09:30)
[2019-09-04] MEDS: LORATADINE 10 MG TAB PO SCH (09:30)
[2019-09-04] MEDS: SODIUM CHLORIDE 0.9% 1,000 ML IV SCH (11:21)
--- NOTE | 2019-09-04 13:10 | P.DS ---
Providers Date of admission: 09/02/19 09:08 Expected date of discharge: 09/04/19 Attending physician: Brayan Meadows Primary care physician: Edgardo Orozco [facility] Hospital Course: 34-year-old female who presented to emergency with a chief complaint of abdominal pain. Patient has a history of incisional hernia repair in July [address] Meadows. Patient underwent incision and drainage of infected seroma and removal of mesh with Dr. Meadows on 09/03/2019. A wound VAC was placed at that time. Wound measures 10 x 20 x [address] Meadows. Patient is doing well postoperatively without any immediate complications. She has stable for discharge home today. She is to follow up with Dr. Meadows and also in the wound care center. Please see EMR for further hospital course details. Discharge Diagnosis: 1. Postoperative seroma 2. History of repair of incisional hernia with mesh, July 2019 Nurse practitioner note has been reviewed by physician. Signing provider agrees with the documented findings, assessment, and plan of care. Patient Condition at Discharge: Stable Plan - Discharge Summary Discharge Rx Participant: Yes New Discharge Prescriptions: Continue Levothyroxine Sodium [Synthroid] 50 mcg PO DAILY traZODone HCL [Desyrel] 100 mg PO HS Albuterol Inhaler (Bulk) [Ventolin Hfa Inhaler (Bulk)] 2 puff INHALATION RT- Q6H PRN PRN Reason: Shortness Of Breath Meloxicam [Mobic] 15 mg PO DAILY Venlafaxine HCl [Effexor XR] 225 mg PO HS Topiramate [Trokendi Xr] 200 mg PO DAILY Butalb/Acetaminophen/Caffeine [Fioricet 50-300-40 mg Capsule] 1 cap PO Q4HR PRN PRN Reason: Migraine Headache HYDROcodone/APAP 7.5-325MG [[place] 7.5-325] 1 tab PO TID PRN PRN Reason: Pain Lisdexamfetamine Dimesylate [Vyvanse] 70 mg PO QAM rOPINIRole HCL [Requip] 0.5 mg PO HS Famotidine [Pepcid] 40 mg PO DAILY Erenumab-Aooe [Aimovig Autoinjector] 140 mg SQ Q28D Cetirizine HCl [Zyrtec] 10 mg PO DAILY [place] Fe 1.5-30(21) 1 tab PO HS Pregabalin [Lyrica] 150 mg PO BID ARIPiprazole [Abilify] 2 mg PO DAILY Discharge Medication List Levothyroxine Sodium [Synthroid] 50 mcg PO DAILY 05/05/14 [History] traZODone HCL [Desyrel] 100 mg PO HS 04/04/15 [History] Albuterol Inhaler (Bulk) [Ventolin Hfa Inhaler (Bulk)] 2 puff INHALATION RT-Q6H PRN 05/23/16 [History] Meloxicam [Mobic] 15 mg PO DAILY 12/31/16 [History] Topiramate [Trokendi Xr] 200 mg PO DAILY 07/19/17 [History] Venlafaxine HCl [Effexor XR] 225 mg PO HS 07/19/17 [History] Butalb/Acetaminophen/Caffeine [Fioricet 50-300-40 mg Capsule] 1 cap PO Q4HR PRN 08/28/17 [History] HYDROcodone/APAP 7.5-325MG [[place] 7.5-325] 1 tab PO TID PRN 03/01/18 [History] Lisdexamfetamine Dimesylate [Vyvanse] 70 mg PO QAM 11/16/18 [History] rOPINIRole HCL [Requip] 0.5 mg PO HS 01/23/19 [History] Famotidine [Pepcid] 40 mg PO DAILY 07/28/19 [History] [place] Fe 1.5-30(21) 1 tab PO HS 08/30/19 [History] Cetirizine HCl [Zyrtec] 10 mg PO DAILY 08/30/19 [History] Erenumab-Aooe [Aimovig Autoinjector] 140 mg SQ Q28D 08/30/19 [History] Pregabalin [Lyrica] 150 mg PO BID 08/30/19 [History] ARIPiprazole [Abilify] 2 mg PO DAILY 08/31/19 [History] Follow up Appointment(s)/Referral(s): Edgardo Inman MD [Primary Care Provider] - 09/08/19 9:15 am [facility], [NON-STAFF] - Wound Healing,[place] [NON-STAFF] - 09/17/19 12:45 pm Brayan Meadows MD [STAFF PHYSICIAN] - 09/09/19 2:30 pm Activity/Diet/Wound Care/Special Instructions: Wound vac instructions/settings per Lizet Brock Patient is to take wound vac that was delivered to her room yesterday. [facility] will call the patient to set up first visit where they will apply to wound vac. Please call [facility] if there are any issues with the wound vac at [phone].
[2019-09-04 14:21] VITALS: BP 115/76; PULSE 67; RESP 15; TEMP 99
[2019-09-04] MEDS: HYDROcodone/APAP 7.5-325MG 1 EACH TAB PO PRN (15:23)
== END 2019-09-04 16:13 | disposition home health service (06) | DRG 908 ==
LOC: EC 14:55 → 4SSUR 17:36 → OBSVTOIN 09-02 09:08
PROVIDERS: ADMIT Surgery; ATTEND Surgery
PROC: 0J980ZZ Drainage of Abdomen Subcutaneous Tissue and Fascia, Open Approach (ICD-10-PCS; principal; 2019-09-03 09:55)
PROC: 0WPF0JZ Removal of Synthetic Substitute from Abdominal Wall, Open Approach (ICD-10-PCS; principal; 2019-09-03 09:55)
DX: L76.34 Postprocedural seroma of skin and subcutaneous tissue following other procedure (principal); T85.79XA Infection and inflammatory reaction due to other internal prosthetic devices, implants and grafts, initial encounter; M79.7 Fibromyalgia; J45.909 Unspecified asthma, uncomplicated; G43.909 Migraine, unspecified, not intractable, without status migrainosus; K58.9 Irritable bowel syndrome, unspecified; K21.9 Gastro-esophageal reflux disease without esophagitis; G47.30 Sleep apnea, unspecified; E05.90 Thyrotoxicosis, unspecified without thyrotoxic crisis or storm; F31.9 Bipolar disorder, unspecified; Z79.890 Hormone replacement therapy; Z79.1 Long term (current) use of non-steroidal anti-inflammatories (NSAID); Z79.899 Other long term (current) drug therapy; Z98.890 Other specified postprocedural states; Z86.59 Personal history of other mental and behavioral disorders; Z90.49 Acquired absence of other specified parts of digestive tract; Y83.4 Other reconstructive surgery as the cause of abnormal reaction of the patient, or of later complication, without mention of misadventure at the time of the procedure; Y92.009 Unspecified place in unspecified non-institutional (private) residence as the place of occurrence of the external cause; Z88.5 Allergy status to narcotic agent; Z88.8 Allergy status to other drugs, medicaments and biological substances; Z82.5 Family history of asthma and other chronic lower respiratory diseases; Z81.8 Family history of other mental and behavioral disorders; Z83.3 Family history of diabetes mellitus
CPT/HCPCS: 36415; 74177; 80053; 81001; 81025; 82150; 83605; 83690; 85025; 85610; 85730; 87040; 87070; 87075; 87077; 87186; 87205; 96361; 96365; 96375; 99285

== ENCOUNTER 2019-10-25 13:04 | Emergency (ER) | payer OTHER ==
[2019-10-25 13:07] VITALS: RESP 16; TEMP 98.2
--- NOTE | 2019-10-25 13:41 | ED ---
Abdominal Pain HPI - General Source: patient Mode of arrival: ambulatory Limitations: no limitations <Nataliia Bender - Last Filed: 10/25/19 18:23> <Cat Flores - Last Filed: 11/02/19 23:02> - General Chief Complaint: Abdominal Pain Stated Complaint: abd pain Time Seen by Provider: 10/25/19 13:10 - History of Present Illness Initial Comments: 34-year-old female with history of hernia repair 07/29 patient has had complication of infection from surgery 08/01/2019-surgeon Abdiel, patient states she has been on a wound vac since this surgery and mentioned a retained foreign body as possible source of infection presenting today for cc of right rib pain just under breast. States pain increases with movement/t wisting/palpation .Pt states pain began this morning. Denies feeling this sensation in the past. Denies chest pressure, admits to right lower chest sharp pain that increases with inspiration. Previous cholecystectomy, denies lower abdominal pain, patient states pain feels more chest than the abdomen. Patient denies hemoptysis, leg swelling, calf or leg pain, denies shortness of breath. Patient denies dyspnea on exertion. Patient denies nausea, vomiting, diarrhea. Denies constipation. State she has a tremor in her Denies additional complaints. Remaining ROS (-). Upon arrival pt does not appears in respiratory or physical distress. (Nataliia Bender) - Related Data Home Medications Medication Instructions Recorded Confirmed Levothyroxine Sodium [Synthroid] 50 mcg PO DAILY 05/05/14 08/30/19 traZODone HCL [Desyrel] 100 mg PO HS 04/04/15 08/30/19 Albuterol Inhaler (Mhu) [Ventolin 2 puff INHALATION RT-Q6H PRN 05/23/16 08/30/19 Hfa Inhaler (Mhu)] Meloxicam [Mobic] 15 mg PO DAILY 12/31/16 08/30/19 Topiramate [Trokendi Xr] 200 mg PO DAILY 07/19/17 08/30/19 Venlafaxine HCl [Effexor XR] 225 mg PO HS 07/19/17 08/30/19 Butalb/Acetaminophen/Caffeine 1 cap PO Q4HR PRN 08/28/17 08/30/19 [Fioricet 50-300-40 mg Capsule] HYDROcodone/APAP 7.5-325MG [[place] 1 tab PO TID PRN 03/01/18 08/30/19 7.5-325] Lisdexamfetamine Dimesylate 70 mg PO QAM 11/16/18 08/30/19 [Vyvanse] rOPINIRole HCL [Requip] 0.5 mg PO HS 01/23/19 08/30/19 Famotidine [Pepcid] 40 mg PO DAILY 07/28/19 08/30/19 [place] Fe 1.5-30(21) 1 tab PO HS 08/30/19 08/30/19 Cetirizine HCl [Zyrtec] 10 mg PO DAILY 08/30/19 08/30/19 Erenumab-Aooe [Aimovig 140 mg SQ Q28D 08/30/19 08/30/19 Autoinjector] Pregabalin [Lyrica] 150 mg PO BID 08/30/19 08/30/19 ARIPiprazole [Abilify] 2 mg PO DAILY 08/31/19 08/31/19 Previous Rx's Medication Instructions Recorded HYDROcodone/APAP 7.5-325MG [[place] 1 tab PO Q6HR PRN 3 Days #10 tab 10/27/19 7.5-325] Allergies Allergy/AdvReac Type Severity Reaction Status Date / Time tramadol Allergy Hallucinati Verified 10/26/19 22:58 ons valacyclovir HCl AdvReac BLURRED Verified 10/26/19 22:58 [From Valtrex] VISION Review of Systems ROS Other: All systems not noted in ROS Statement are negative. <Nataliia Bender - Last Filed: 10/25/19 18:23> ROS Other: All systems not noted in ROS Statement are negative. <Cat Flores - Last Filed: 11/02/19 23:02> ROS Statement: Those systems with pertinent positive or pertinent negative responses have been documented in the HPI. Past Medical History Past Medical History: Asthma, Fibromyalgia, GERD/Reflux, Musculoskeletal Disorder, Sleep Apnea/CPAP/BIPAP, Thyroid Disorder Additional Past Medical History / Comment(s): Hx Migraines, DDD , IBS, NO CPAP used. HX PERFORATED DIVERTICULITIS W/ PAST Colostomy 12/2017. History of Any Multi-Drug Resistant Organisms: None Reported Past Surgical History: Bowel Resection, Breast Surgery, Cholecystectomy, Hernia Repair Additional Past Surgical History / Comment(s): Dental, Rt Breast biopsy. Colostomy 12/2017, THEN Reversal 02/2018. Cholecystectomy - 08-12-18 Past Anesthesia/Blood Transfusion Reactions: No Reported Reaction Past Psychological History: Anxiety, Bipolar, Depression Smoking Status: Never smoker Past Alcohol Use History: Rare Past Drug Use History: None Reported - Past Family History Mother History Unknown: Yes Family Medical History: COPD Additional Family Medical History / Comment(s): depression, anxiety Brother(s) Family Medical History: Diabetes Mellitus <Nataliia Bender - Last Filed: 10/25/19 18:23> General Exam Limitations: no limitations <Nataliia Bender - Last Filed: 10/25/19 18:23> - General Exam Comments Initial Comments: General: The patient is awake and alert, in no distress Eye: +3 mm pupils are equal, round and reactive to light, extra-ocular movements are intact. No nystagmus. There is normal conjunctiva bilaterally. No signs of icterus. Ears, nose, mouth and throat: There are moist mucous membranes and no oral lesions. Neck: The neck is supple, there is no tenderness or JVD. Cardiovascular: There is a regular rate and rhythm. No murmur, rub or gallop is appreciated. Respiratory: Normal skin exam over lungs, no lesions. Pain to palpation just under breast over anterior rib cage. Lungs are clear to auscultation, respirations are non-labored, breath sounds are equal. No wheezes, stridor, rales, or rhonchi. Gastrointestinal: Soft, non-distended, non-tender abdomen without masses or organomegaly noted. There is no rebound or guarding present. Musculoskeletal: Normal ROM, no tenderness. Strength 5/5. Sensation intact. Radial pulses equal bilaterally 2+. Neurological: A&O x 3. CN II-XII intact grossly, There are no obvious motor or sensory deficits. Coordination appears grossly intact. Speech is normal. Skin: Skin is warm and dry and no rashes or lesions are noted. Psychiatric: Cooperative, appropriate mood & affect, normal judgment. (Nataliia Bender) Course Vital Signs 06/13/20 06/13/20 06/13/20 13:04 15:48 17:49 Temperature 98.2 F Pulse Rate 78 75 63 Respiratory 16 16 16 Rate Blood Pressure 150/88 109/70 112/86 O2 Sat by Pulse 99 100 99 Oximetry Medical Decision Making - Lab Data Result diagrams: 10/25/19 13:47 10/25/19 13:47 <Nataliia Bender - Last Filed: 10/25/19 18:23> - Lab Data Result diagrams: 10/25/19 13:47 10/25/19 13:47 <Cat Flores - Last Filed: 11/02/19 23:02> - Medical Decision Making 34yo female presenting today for cc of rib pain, increased wtih inspiration. No hx of trauma. No skin changes. Recent surgery within last 90 days. Dimer elevated. CTA (-) for PE. pain does increase to palpation and rotation and felt to most likely be musculoskeletal at this time. NO leg swellin gor extremity changes. Patient labs stable she appears nontoxic, abdomen soft nontender. Patient discharged appearing well after discussing the case with Dr. Flores who is agreeable to care plan. = (Nataliia Bender) I was available for consultation in the emergency department. The history and physical exam were done by the midlevel provider. I was consulted for this patients care. I reviewed the case with the midlevel provider and based on their presentation of the patient, I agree with the assessment, medical decision making and plan of care as documented. Chart was dictated using [employer] dictation software. Attempts were made to correct any dictation errors however some typographical errors may persist. Patient was seen during a national state of emergency due to the Covid-19 pandemic. (Cat Flores) - Lab Data Lab Results 10/25/19 10/25/19 10/25/19 Range/Units 13:25 13:47 13:47 WBC 8.0 (3.8-10.6) k/uL RBC 4.68 (3.80-5.40) m/uL Hgb 11.6 (11.4-16.0) gm/dL Hct 38.0 (34.0-46.0) % MCV 81.3 D (80.0-100.0) fL MCH 24.7 L (25.0-35.0) pg MCHC 30.4 L (31.0-37.0) g/dL RDW 14.6 (11.5-15.5) % Plt Count 382 (150-450) k/uL Neutrophils % 63 % Lymphocytes % 28 % Monocytes % 4 % Eosinophils % 2 % Basophils % 1 % Neutrophils # 5.1 (1.3-7.7) k/uL Lymphocytes # 2.3 (1.0-4.8) k/uL Monocytes # 0.3 (0-1.0) k/uL Eosinophils # 0.2 (0-0.7) k/uL Basophils # 0.1 (0-0.2) k/uL Hypochromasia Moderate D-Dimer (<0.60) mg/L FEU Sodium 139 (137-145) mmol/L Potassium 4.0 (3.5-5.1) mmol/L Chloride 111 H (98-107) mmol/L Carbon Dioxide 22 (22-30) mmol/L Anion Gap 6 mmol/L BUN 18 H (7-17) mg/dL Creatinine 0.80 (0.52-1.04) mg/dL Est GFR (CKD-EPI)AfAm >90 (>60 ml/min/1.73 sqM) Est GFR (CKD-EPI)NonAf >90 (>60 ml/min/1.73 sqM) Glucose 91 (74-99) mg/dL Calcium 9.5 (8.4-10.2) mg/dL Total Bilirubin 0.2 (0.2-1.3) mg/dL AST 26 (14-36) U/L ALT 20 (4-34) U/L Alkaline Phosphatase 72 (38-126) U/L Troponin I (0.000-0.034) ng/mL Total Protein 7.3 (6.3-8.2) g/dL Albumin 4.1 (3.5-5.0) g/dL Amylase 71 (30-110) U/L Lipase 182 (23-300) U/L Urine Color Yellow Urine Appearance Turbid H (Clear) Urine pH 7.0 (5.0-8.0) Ur Specific [place] 1.021 (1.001-1.035) Urine Protein Negative (Negative) Urine Glucose (UA) Negative (Negative) Urine Ketones Negative (Negative) Urine Blood Negative (Negative) Urine Nitrite Negative (Negative) Urine Bilirubin Negative (Negative) Urine Urobilinogen <2.0 (<2.0) mg/dL Ur Leukocyte Esterase Negative (Negative) Urine RBC 1 (0-5) /hpf Urine WBC 3 (0-5) /hpf Ur Squamous Epith Cells 4 (0-4) /hpf Amorphous Sediment Occasional H (None) /hpf Urine Bacteria Occasional H (None) /hpf Urine Mucus Rare H (None) /hpf 10/25/19 10/25/19 Range/Units 13:47 13:47 WBC (3.8-10.6) k/uL RBC (3.80-5.40) m/uL Hgb (11.4-16.0) gm/dL Hct (34.0-46.0) % MCV (80.0-100.0) fL MCH (25.0-35.0) pg MCHC (31.0-37.0) g/dL RDW (11.5-15.5) % Plt Count (150-450) k/uL Neutrophils % % Lymphocytes % % Monocytes % % Eosinophils % % Basophils % % Neutrophils # (1.3-7.7) k/uL Lymphocytes # (1.0-4.8) k/uL Monocytes # (0-1.0) k/uL Eosinophils # (0-0.7) k/uL Basophils # (0-0.2) k/uL Hypochromasia D-Dimer 0.65 H (<0.60) mg/L FEU Sodium (137-145) mmol/L Potassium (3.5-5.1) mmol/L Chloride (98-107) mmol/L Carbon Dioxide (22-30) mmol/L Anion Gap mmol/L BUN (7-17) mg/dL Creatinine (0.52-1.04) mg/dL Est GFR (CKD-EPI)AfAm (>60 ml/min/1.73 sqM) Est GFR (CKD-EPI)NonAf (>60 ml/min/1.73 sqM) Glucose (74-99) mg/dL Calcium (8.4-10.2) mg/dL Total Bilirubin (0.2-1.3) mg/dL AST (14-36) U/L ALT (4-34) U/L Alkaline Phosphatase (38-126) U/L Troponin I <0.012 (0.000-0.034) ng/mL Total Protein (6.3-8.2) g/dL Albumin (3.5-5.0) g/dL Amylase (30-110) U/L Lipase (23-300) U/L Urine Color Urine Appearance (Clear) Urine pH (5.0-8.0) Ur Specific [place] (1.001-1.035) Urine Protein (Negative) Urine Glucose (UA) (Negative) Urine Ketones (Negative) Urine Blood (Negative) Urine Nitrite (Negative) Urine Bilirubin (Negative) Urine Urobilinogen (<2.0) mg/dL Ur Leukocyte Esterase (Negative) Urine RBC (0-5) /hpf Urine WBC (0-5) /hpf Ur Squamous Epith Cells (0-4) /hpf Amorphous Sediment (None) /hpf Urine Bacteria (None) /hpf Urine Mucus (None) /hpf Disposition Is patient prescribed a controlled substance at d/c from ED?: No Time of Disposition: 17:43 <Nataliia Bender - Last Filed: 10/25/19 18:23> <Cat Flores - Last Filed: 11/02/19 23:02> Clinical Impression: Rib pain on right side Disposition: HOME SELF-CARE Condition: Good Instructions (If sedation given, give patient instructions): Costochondritis (ED) Additional Instructions: Please use medication as discussed. Please follow-up with family doctor in the next 2 days. Please return to emergency room if the symptoms increase or worsen or for any other concerns. Referrals: Edgardo Inman MD [Primary Care Provider] - 1-2 days
[2019-10-25] MEDS ORDERED: SODIUM CHLORIDE 0.9% 500 ML 500 ML IV ONE (13:53)
[2019-10-25] MEDS ORDERED: SODIUM CHLORIDE 0.9% 1,000 ML IV ONE (13:53)
[2019-10-25] MEDS ORDERED: HYDROmorphone 0.5 MG/0.5 ML SYRINGE IVP STA (13:53)
[2019-10-25 13:55] LABS: Amorphous Sediment,Urine Occasional /hpf; Appearance,Urine Turbid (Clear); Bacteria,Urine Occasional /hpf; Bilirubin,Urine Negative (Negative); Blood,Urine Negative (Negative); Color,Urine Yellow; Glucose,Urine (UA) Negative (Negative); Ketones,Urine Negative (Negative); Leukocyte Esterase,Urine Negative (Negative); Mucus,Urine Rare /hpf; Nitrite,Urine Negative (Negative); Protein,Urine Negative (Negative); RBC,Urine 1 /hpf (0-5); Specific Gravity,Urine 1.021 (1.001-1.035); Squamous Epithelial Cell,Urine 4 /hpf (0-4); Urobilinogen,Urine <2.0 mg/dL (<2.0); WBC,Urine 3 /hpf (0-5)
[2019-10-25] MEDS ORDERED: SODIUM CHLORIDE 0.9% 1,000 ML IV SCH (14:00)
[2019-10-25 14:09] LABS: Basophils # (A) 0.1 k/uL (0-0.2); Basophils % (A) 1 %; Eosinophils # (A) 0.2 k/uL (0-0.7); Eosinophils % (A) 2 %; HGB 11.6 gm/dL (11.4-16.0); Hypochromasia Moderate; Lymphocytes # (A) 2.3 k/uL (1.0-4.8); Lymphocytes % (A) 28 %; MCH 24.7 pg (25.0-35.0); MCHC 30.4 g/dL (31.0-37.0); Mean Platelet Volume 7.2; Monocytes # (A) 0.3 k/uL (0-1.0); Monocytes % (A) 4 %; Neutrophils # (A) 5.1 k/uL (1.3-7.7); Neutrophils % (A) 63 %; Platelet Count 382 k/uL (150-450); RBC 4.68 m/uL (3.80-5.40); RDW 14.6 % (11.5-15.5)
[2019-10-25 14:13] LABS: MCV 81.3 fL (80.0-100.0)
[2019-10-25 14:18] LABS: ALT 20 U/L (4-34); AST 26 U/L (14-36); African American GFR (CKD) >90 (>60 ml/min/1.73 sqM); Albumin 4.1 g/dL (3.5-5.0); Alkaline Phosphatase 72 U/L (38-126); Amylase 71 U/L (30-110); Anion Gap 6 mmol/L; Blood Urea Nitrogen 18 mg/dL (7-17); Calcium 9.5 mg/dL (8.4-10.2); Carbon Dioxide 22 mmol/L (22-30); Chloride 111 mmol/L (98-107); Glucose 91 mg/dL (74-99); Non-African American GFR(CKD) >90 (>60 ml/min/1.73 sqM); Sodium 139 mmol/L (137-145); Total Bilirubin 0.2 mg/dL (0.2-1.3); Total Protein 7.3 g/dL (6.3-8.2)
--- NOTE | 2019-10-25 16:31 | CT ---
EXAMINATION TYPE: CT chest angio for PE DATE OF EXAM: 10/25/2019 COMPARISON: 04/25/2013 HISTORY: Right side chest pain,elevated d-dimer CT DLP: 614.6 mGycm Automated exposure control for dose reduction was used. CONTRAST: Performed with IV Contrast, patient injected with 85 mL of Isovue 300. There are 3-D post processed images. There is mild subpleural interstitial density in the posterior lung murrell. There is no pleural effus ion. Heart size is normal. There is no pericardial effusion. There are no hilar masses. There is no m ediastinal adenopathy. Thoracic aorta is intact. There is no aneurysm or dissection. There is normal contrast opacification of the pulmonary arteries. There are no filling defects. The upper abdominal soft tissues are intact. Thoracic spine is intact. There is no compression fractu re. Sternum is intact. IMPRESSION: No evidence of pulmonary embolism. Mild subsegmental atelectasis at the lung bases. Atelectasis appea rs new compared to old exam.
--- NOTE | 2019-10-25 17:13 | XR ---
EXAMINATION TYPE: XR KUB DATE OF EXAM: 10/25/2019 COMPARISON: NONE HISTORY: Right upper quadrant pain TECHNIQUE: 2 views upright FINDINGS: 2 views upright were obtained. There is no sign of intestinal obstruction or pneumoperitone um. Fecal pattern is normal. There is no evidence of a mass. There is contrast in the urinary bladder . Lung bases are clear. IMPRESSION: Nonacute abdomen.
[2019-10-25 17:50] VITALS: BP 112/86; PULSE 63
== END 2019-10-25 17:49 | disposition home or self-care (01) ==
LOC: EC 13:04
DX: R07.81 Pleurodynia (principal); R79.89 Other specified abnormal findings of blood chemistry; J45.909 Unspecified asthma, uncomplicated; M79.7 Fibromyalgia; K21.9 Gastro-esophageal reflux disease without esophagitis; E07.9 Disorder of thyroid, unspecified; G43.909 Migraine, unspecified, not intractable, without status migrainosus; K58.9 Irritable bowel syndrome, unspecified; F41.9 Anxiety disorder, unspecified; F31.9 Bipolar disorder, unspecified; Z79.1 Long term (current) use of non-steroidal anti-inflammatories (NSAID); Z79.51 Long term (current) use of inhaled steroids; Z79.899 Other long term (current) drug therapy; Z79.890 Hormone replacement therapy; Z88.5 Allergy status to narcotic agent; Z88.8 Allergy status to other drugs, medicaments and biological substances; Z98.890 Other specified postprocedural states; Z90.49 Acquired absence of other specified parts of digestive tract
CPT/HCPCS: 36415; 93005; 85379; 80053; 82150; 83690; 84484; 85025; 81001; 74018; 71275; 96374; 96361 ×4; 99284; J1170; Q9967

== ENCOUNTER 2019-10-26 22:46 | Emergency (ER) | payer OTHER ==
[2019-10-26 22:58] VITALS: TEMP 98.1
--- NOTE | 2019-10-26 23:46 | ED ---
Chest Pain HPI - General Chief Complaint: Chest Pain Stated Complaint: Chest Pain Time Seen by Provider: 10/26/19 23:00 Source: patient Mode of arrival: ambulatory Limitations: no limitations - History of Present Illness Initial Comments: This patient is 34-year-old woman presenting with complaint of right upper chest pain. She was seen here yesterday for the same. The pain had started that morning, and she states that it has continued throughout today. She is out of home analgesic and states that the [id number] medicine was not helping it. No fever or chills. No productive cough. No anginal signs or symptoms. MD Complaint: chest pain Onset/Timin -: days(s) Onset: during rest Pain Location: right chest Pain Radiation: none Severity: moderate Quality: sharp Consistency: constant Improves With: nothing Worsens With: inspiration Treatments Prior to Arrival: none - Related Data Home Medications Medication Instructions Recorded Confirmed Levothyroxine Sodium [Synthroid] 50 mcg PO DAILY 05/05/14 08/30/19 traZODone HCL [Desyrel] 100 mg PO HS 04/04/15 08/30/19 Albuterol Inhaler (Mhu) [Ventolin 2 puff INHALATION RT-Q6H PRN 05/23/16 08/30/19 Hfa Inhaler (Mhu)] Meloxicam [Mobic] 15 mg PO DAILY 12/31/16 08/30/19 Topiramate [Trokendi Xr] 200 mg PO DAILY 07/19/17 08/30/19 Venlafaxine HCl [Effexor XR] 225 mg PO HS 07/19/17 08/30/19 Butalb/Acetaminophen/Caffeine 1 cap PO Q4HR PRN 08/28/17 08/30/19 [Fioricet 50-300-40 mg Capsule] HYDROcodone/APAP 7.5-325MG [[place] 1 tab PO TID PRN 03/01/18 08/30/19 7.5-325] Lisdexamfetamine Dimesylate 70 mg PO QAM 11/16/18 08/30/19 [Vyvanse] rOPINIRole HCL [Requip] 0.5 mg PO HS 01/23/19 08/30/19 Famotidine [Pepcid] 40 mg PO DAILY 07/28/19 08/30/19 [place] Fe 1.5-30(21) 1 tab PO HS 08/30/19 08/30/19 Cetirizine HCl [Zyrtec] 10 mg PO DAILY 08/30/19 08/30/19 Erenumab-Aooe [Aimovig 140 mg SQ Q28D 08/30/19 08/30/19 Autoinjector] Pregabalin [Lyrica] 150 mg PO BID 08/30/19 08/30/19 ARIPiprazole [Abilify] 2 mg PO DAILY 08/31/19 08/31/19 Previous Rx's Medication Instructions Recorded HYDROcodone/APAP 7.5-325MG [[place] 1 tab PO Q6HR PRN 3 Days #10 tab 10/27/19 7.5-325] Allergies Allergy/AdvReac Type Severity Reaction Status Date / Time tramadol Allergy Hallucinati Verified 10/26/19 22:58 ons valacyclovir HCl AdvReac BLURRED Verified 10/26/19 22:58 [From Valtrex] VISION Review of Systems ROS Statement: Those systems with pertinent positive or pertinent negative responses have been documented in the HPI. ROS Other: All systems not noted in ROS Statement are negative. Constitutional: Denies: fever, chills Respiratory: Denies: cough, dyspnea Cardiovascular: Reports: chest pain. Denies: palpitations, edema, syncope Gastrointestinal: Denies: abdominal pain, vomiting, diarrhea Genitourinary: Denies: dysuria, hematuria Musculoskeletal: Denies: back pain Skin: Denies: rash Neurological: Denies: headache, weakness, numbness EKG Findings - EKG Results: EKG: interpreted by ROJAS WNL, sinus rhythm (Rate 71 bpm), normal axis, normal QRS, normal ST/T, no acute changes - LA, Pacemaker, Normal: Normal tracing: normal tracing Past Medical History Past Medical History: Asthma, Fibromyalgia, GERD/Reflux, Musculoskeletal Disorder, Sleep Apnea/CPAP/BIPAP, Thyroid Disorder Additional Past Medical History / Comment(s): Hx Migraines, DDD , IBS, NO CPAP used. HX PERFORATED DIVERTICULITIS W/ PAST Colostomy 12/2017. History of Any Multi-Drug Resistant Organisms: None Reported Past Surgical History: Bowel Resection, Breast Surgery, Cholecystectomy, Hernia Repair Additional Past Surgical History / Comment(s): Dental, Rt Breast biopsy. Colostomy 12/2017, THEN Reversal 02/2018. Cholecystectomy - 4-1-19 Past Anesthesia/Blood Transfusion Reactions: No Reported Reaction Past Psychological History: Anxiety, Bipolar, Depression Smoking Status: Never smoker Past Alcohol Use History: Rare Past Drug Use History: None Reported - Past Family History Mother History Unknown: Yes Family Medical History: COPD Additional Family Medical History / Comment(s): depression, anxiety Brother(s) Family Medical History: Diabetes Mellitus General Exam Limitations: no limitations General appearance: alert, in no apparent distress Head exam: Present: atraumatic, normocephalic Eye exam: Present: normal appearance. Absent: scleral icterus, conjunctival injection ENT exam: Present: normal oropharynx Respiratory exam: Present: normal lung sounds bilaterally, chest wall tenderness. Absent: respiratory distress, wheezes, rales, rhonchi, stridor, accessory muscle use, decreased breath sounds, prolonged expiratory Cardiovascular Exam: Present: regular rate, normal rhythm, normal heart sounds. Absent: systolic murmur, diastolic murmur, rubs, gallop GI/Abdominal exam: Present: soft, other (Patient has abdominal wound VAC. No abnormal erythema. No warmth.). Absent: distended, tenderness, guarding, rebound, rigid, mass, pulsatile mass Extremities exam: Present: normal inspection, normal capillary refill. Absent: pedal edema, calf tenderness Back exam: Present: normal inspection. Absent: CVA tenderness (R), CVA tenderness (L) Neurological exam: Present: alert Skin exam: Present: warm, dry, intact, normal color. Absent: rash Course Vital Signs 10/26/19 10/27/19 22:56 01:36 Temperature 98.1 F Pulse Rate 72 69 Respiratory 16 18 Rate Blood Pressure 127/80 136/86 O2 Sat by Pulse 99 98 Oximetry Chest Pain MDM - [facility] Patient is 34-year-old woman with right-sided chest pain. She did have CT angiogram yesterday. Patient's d-dimer is lower today and therefore will hold having repeat computed tomography scan due to concerns of radiation exposure. The patient is feeling better following medication. She states that her main concern is that she has run out of the pain medicine that Dr. Azar prescribes. I did provide a small amount of [place] which she takes and instructions to follow with Dr. Azar for her usual refill. Discussed return appropriate follow-up and also return parameters. Disposition Clinical Impression: Chest pain Disposition: HOME SELF-CARE Condition: Good Instructions (If sedation given, give patient instructions): Chest Pain (ED) Prescriptions: HYDROcodone/APAP 7.5-325MG [[place] 7.5-325] 1 tab PO Q6HR PRN 3 Days #10 tab PRN Reason: Pain Is patient prescribed a controlled substance at d/c from ED?: Yes When asked, does pt state using other controlled substances?: No If prescribed controlled substance>3 days was MAPS reviewed?: Yes If opioid is for acute pain is fill amount 7 days or less?: Yes If Rx opioid, was Start Talking consent form obtained?: Yes Referrals: Edgardo Inman MD [Primary Care Provider] - 1-2 days
[2019-10-27 00:35] LABS: Basophils # (A) 0.1 k/uL (0-0.2); Basophils % (A) 1 %; Eosinophils # (A) 0.3 k/uL (0-0.7); Eosinophils % (A) 3 %; HCT 37.4 % (34.0-46.0); HGB 11.3 gm/dL (11.4-16.0); Hypochromasia Moderate; Lymphocytes # (A) 2.8 k/uL (1.0-4.8); Lymphocytes % (A) 29 %; MCH 24.6 pg (25.0-35.0); MCHC 30.2 g/dL (31.0-37.0); MCV 81.4 fL (80.0-100.0); Mean Platelet Volume 7.3; Monocytes # (A) 0.5 k/uL (0-1.0); Monocytes % (A) 5 %; Neutrophils # (A) 5.9 k/uL (1.3-7.7); Neutrophils % (A) 61 %; Platelet Count 380 k/uL (150-450); RDW 14.5 % (11.5-15.5); WBC 9.8 k/uL (3.8-10.6)
[2019-10-27 00:44] LABS: ALT 18 U/L (4-34); AST 22 U/L (14-36); African American GFR (CKD) >90 (>60 ml/min/1.73 sqM); Albumin 3.6 g/dL (3.5-5.0); Alkaline Phosphatase 69 U/L (38-126); Amylase 81 U/L (30-110); Anion Gap 7 mmol/L; Blood Urea Nitrogen 12 mg/dL (7-17); Carbon Dioxide 20 mmol/L (22-30); Chloride 110 mmol/L (98-107); Glucose 106 mg/dL (74-99); Non-African American GFR(CKD) >90 (>60 ml/min/1.73 sqM); Potassium 3.9 mmol/L (3.5-5.1); Sodium 137 mmol/L (137-145); Total Bilirubin 0.1 mg/dL (0.2-1.3); Total Protein 6.7 g/dL (6.3-8.2)
--- NOTE | 2019-10-27 00:51 | XR ---
EXAMINATION TYPE: XR chest 2V DATE OF EXAM: 10/27/2019 COMPARISON: 12/18/2018 HISTORY: Chest pain TECHNIQUE: FINDINGS: Heart and mediastinum are normal. Lungs are clear. Diaphragm is normal. Bony thorax appears normal. IMPRESSION: Normal chest. No change.
[2019-10-27 00:58] LABS: INR 0.9 (<1.2); Partial Thromboplastin Time 24.5 sec (22.0-30.0); Prothrombin Time 9.9 sec (9.0-12.0)
[2019-10-27 01:01] LABS: D-Dimer 0.62 mg/L FEU (<0.60)
[2019-10-27] MEDS ORDERED: MORPHINE SULFATE 4 MG/ML SYRINGE IV STA (01:36)
[2019-10-27 01:37] VITALS: BP 136/86; PULSE 69; RESP 18
== END 2019-10-27 03:19 | disposition home or self-care (01) ==
LOC: EC 22:46
DX: R07.1 Chest pain on breathing (principal); R79.89 Other specified abnormal findings of blood chemistry; J45.909 Unspecified asthma, uncomplicated; M79.7 Fibromyalgia; K21.9 Gastro-esophageal reflux disease without esophagitis; E07.9 Disorder of thyroid, unspecified; G43.909 Migraine, unspecified, not intractable, without status migrainosus; F41.9 Anxiety disorder, unspecified; F32.9 Major depressive disorder, single episode, unspecified; G47.30 Sleep apnea, unspecified; Z99.89 Dependence on other enabling machines and devices; Z79.890 Hormone replacement therapy; Z79.1 Long term (current) use of non-steroidal anti-inflammatories (NSAID); Z79.899 Other long term (current) drug therapy; Z88.5 Allergy status to narcotic agent; Z88.8 Allergy status to other drugs, medicaments and biological substances
CPT/HCPCS: 36415; 93005; 85379; 80053; 82150; 83690; 83735; 84484; 85025; 85610; 85730; 71046; 99284; 96374; J2270

== ENCOUNTER 2019-11-11 11:03 | Emergency (ER) | payer OTHER ==
[2019-11-11 11:09] VITALS: RESP 18
[2019-11-11] MEDS ORDERED: HYDROmorphone 1 MG/ML 1 ML SYRINGE IM STA (11:22)
--- NOTE | 2019-11-11 11:43 | ED ---
General Adult HPI - General Chief complaint: Recheck/Abnormal Lab/Rx Stated complaint: pain under rt boob Time Seen by Provider: 11/11/19 11:10 Source: patient, RN notes reviewed Mode of arrival: ambulatory Limitations: no limitations - History of Present Illness Initial comments: 34-year-old female present emergency Department chief complaint right-sided rib, chest pain. Patient states his pain has been on and off over the last several weeks. Patient's had 2 prior ER visits and to PCP appointments. Patient has been diagnosed with pleurisy. Patient states the pain is still present today. Patient states that she is not short of breath. She states that does hurt when she takes a deep inspiration without and with certain movements. Patient has fever, chills, redness breath, headache or dizziness. Patient does have a wound VAC, which has been on for last few months she denies any increase in symptoms she states that symptoms are improving she has no current abdominal pain. She states her prior cholecystectomy denies any nausea vomiting no GERD - Related Data Home Medications Medication Instructions Recorded Confirmed Levothyroxine Sodium [Synthroid] 50 mcg PO DAILY 05/05/14 08/30/19 traZODone HCL [Desyrel] 100 mg PO HS 04/04/15 08/30/19 Albuterol Inhaler (Mhu) [Ventolin 2 puff INHALATION RT-Q6H PRN 05/23/16 08/30/19 Hfa Inhaler (Mhu)] Meloxicam [Mobic] 15 mg PO DAILY 12/31/16 08/30/19 Topiramate [Trokendi Xr] 200 mg PO DAILY 07/19/17 08/30/19 Venlafaxine HCl [Effexor XR] 225 mg PO HS 07/19/17 08/30/19 Butalb/Acetaminophen/Caffeine 1 cap PO Q4HR PRN 08/28/17 08/30/19 [Fioricet 50-300-40 mg Capsule] HYDROcodone/APAP 7.5-325MG [[place] 1 tab PO TID PRN 03/01/18 08/30/19 7.5-325] Lisdexamfetamine Dimesylate 70 mg PO QAM 11/16/18 08/30/19 [Vyvanse] rOPINIRole HCL [Requip] 0.5 mg PO HS 01/23/19 08/30/19 Famotidine [Pepcid] 40 mg PO DAILY 07/28/19 08/30/19 [place] Fe 1.5-30(21) 1 tab PO HS 08/30/19 08/30/19 Cetirizine HCl [Zyrtec] 10 mg PO DAILY 08/30/19 08/30/19 Erenumab-Aooe [Aimovig 140 mg SQ Q28D 08/30/19 08/30/19 Autoinjector] Pregabalin [Lyrica] 150 mg PO BID 08/30/19 08/30/19 ARIPiprazole [Abilify] 2 mg PO DAILY 08/31/19 08/31/19 Previous Rx's Medication Instructions Recorded HYDROcodone/APAP 7.5-325MG [[place] 1 tab PO Q6HR PRN 3 Days #10 tab 10/27/19 7.5-325] predniSONE 50 mg PO DAILY #5 tab 11/11/19 Allergies Allergy/AdvReac Type Severity Reaction Status Date / Time tramadol Allergy Hallucinati Verified 11/11/19 11:09 ons valacyclovir HCl AdvReac BLURRED Verified 11/11/19 11:09 [From Valtrex] VISION Review of Systems ROS Statement: Those systems with pertinent positive or pertinent negative responses have been documented in the HPI. ROS Other: All systems not noted in ROS Statement are negative. Past Medical History Past Medical History: Asthma, Fibromyalgia, GERD/Reflux, Musculoskeletal Disorder, Sleep Apnea/CPAP/BIPAP, Thyroid Disorder Additional Past Medical History / Comment(s): Hx Migraines, DDD , IBS, NO CPAP used. HX PERFORATED DIVERTICULITIS W/ PAST Colostomy 12/2017. History of Any Multi-Drug Resistant Organisms: None Reported Past Surgical History: Bowel Resection, Breast Surgery, Cholecystectomy, Hernia Repair Additional Past Surgical History / Comment(s): Dental, Rt Breast biopsy. Colostomy 12/2017, THEN Reversal 02/2018. Cholecystectomy - -06-01 Past Anesthesia/Blood Transfusion Reactions: No Reported Reaction Past Psychological History: Anxiety, Bipolar, Depression Smoking Status: Never smoker Past Alcohol Use History: Rare Past Drug Use History: None Reported - Past Family History Mother History Unknown: Yes Family Medical History: COPD Additional Family Medical History / Comment(s): depression, anxiety Brother(s) Family Medical History: Diabetes Mellitus General Exam Limitations: no limitations General appearance: alert, in no apparent distress Head exam: Present: atraumatic, normocephalic, normal inspection Eye exam: Present: normal appearance, PERRL, EOMI. Absent: scleral icterus, conjunctival injection, periorbital swelling ENT exam: Present: normal exam, normal oropharynx, mucous membranes moist Neck exam: Present: normal inspection, full ROM. Absent: tenderness, meningismus, lymphadenopathy Respiratory exam: Present: normal lung sounds bilaterally, chest wall tenderness (Right sided anterior lateral chest wall tenderness just inferior to the breast). Absent: respiratory distress, wheezes, rales, rhonchi, stridor Cardiovascular Exam: Present: regular rate, normal rhythm, normal heart sounds. Absent: systolic murmur, diastolic murmur, rubs, gallop, clicks GI/Abdominal exam: Present: soft, normal bowel sounds, other (Wound VAC in place with no surrounding erythema or tenderness). Absent: distended, tenderness, guarding, rebound, rigid Back exam: Present: full ROM. Absent: tenderness, CVA tenderness (R), CVA tenderness (L), paraspinal tenderness, vertebral tenderness Neurological exam: Present: alert, oriented X3, CN II-XII intact, reflexes normal. Absent: motor sensory deficit Skin exam: Present: warm, dry, intact, normal color. Absent: rash Course Vital Signs 11/11/19 11:06 Temperature 98.8 F Pulse Rate 89 Respiratory 18 Rate Blood Pressure 131/78 O2 Sat by Pulse 99 Oximetry Medical Decision Making - Medical Decision Making 34-year-old female presented for right-sided rib pain. Patient's pain has been ongoing. Patient had prior labwork CTA chest x-ray EKG repeat EKG chest x-ray with rib series today with no acute findings. Patient's pain is improved I still feel this is related to chest wall pain, pleurisy. Patient will continue anti-inflammatories will follow-up with PCP and return for any worsening symptoms. Disposition Clinical Impression: Chest wall pain Disposition: HOME SELF-CARE Condition: Stable Instructions (If sedation given, give patient instructions): Chest Wall Pain (ED) Additional Instructions: Please return to the Emergency Department if symptoms worsen or any other concerns. Prescriptions: predniSONE 50 mg PO DAILY #5 tab Is patient prescribed a controlled substance at d/c from ED?: No Referrals: Edgardo Inman MD [Primary Care Provider] - 1-2 days Time of Disposition: 12:07
--- NOTE | 2019-11-11 11:53 | XR ---
EXAMINATION TYPE: XR ribs RT w pa chest xray DATE OF EXAM: 11/11/2019 COMPARISON: NONE HISTORY: Pain TECHNIQUE: Single view of the chest 4 views of the ribs are submitted. FINDINGS: The lungs are clear. No Evidence for pneumothorax. No evidence for focal contusion. Medi astinal structures are midline. Evaluation of the ribs fails to demonstrate evidence for displaced r ib fracture or secondary sign of rib fracture. IMPRESSION: Negative study
[2019-11-11 12:19] VITALS: BP 119/78; PULSE 93; TEMP 98.6
== END 2019-11-11 12:17 | disposition home or self-care (01) ==
LOC: EC 11:03
DX: R07.89 Other chest pain (principal); J45.909 Unspecified asthma, uncomplicated; K21.9 Gastro-esophageal reflux disease without esophagitis; M79.7 Fibromyalgia; E07.9 Disorder of thyroid, unspecified; F41.9 Anxiety disorder, unspecified; F31.9 Bipolar disorder, unspecified; G47.30 Sleep apnea, unspecified; Z79.1 Long term (current) use of non-steroidal anti-inflammatories (NSAID); Z79.890 Hormone replacement therapy; Z79.891 Long term (current) use of opiate analgesic; Z79.899 Other long term (current) drug therapy; Z88.6 Allergy status to analgesic agent; Z99.89 Dependence on other enabling machines and devices
CPT/HCPCS: 99285; 96372; 93005; 71101; J1170

== ENCOUNTER 2019-11-24 22:43 | Emergency (ER) | payer OTHER ==
[2019-11-24 22:48] VITALS: BP 140/90; PULSE 64; RESP 16; TEMP 98.4
[2019-11-25] MEDS ORDERED: LIDOCAINE 1% INJ 10MG/ML (20 ML MDV) SQ STA (00:10)
--- NOTE | 2019-11-25 00:10 | ED ---
General Adult HPI - General Chief complaint: Wound/Laceration Stated complaint: LT hand lac Time Seen by Provider: 11/24/19 23:08 Source: patient, RN notes reviewed, old records reviewed Mode of arrival: ambulatory Limitations: no limitations - History of Present Illness Initial comments: 34-year-old female patient presents ED for evaluation of laceration to left hand. Patient reports that she was helping her with a tool box when she scratched herself on the underside of the metal. Reports her tetanus is up-to-date. Denies any other complaints. Systemic: Pt denies fatigue, fever/chills, rash. Pt denies weakness, night sweats, weight loss. Neuro: Pt denies headache, visual disturbances, syncope or pre-syncope. HEENT: Pt denies ocular discharge or irritation, otalgia, rhinorrhea, pharyngitis or notable lymphadenopathy. Cardiopulmonary: Pt denies chest pain, SOB, heart palpitations, dyspnea on exertion. Abdominal/GI: Pt denies abdominal pain, n/v/d. : Pt denies dysuria, burning w/ urination, frequency/urgency. Denies new onset urinary or bowel incontinence. MSK: Pt denies myalgia, loss of strength or function in extremities. Neuro: Pt denies new onset weakness, paresthesias. - Related Data Home Medications Medication Instructions Recorded Confirmed Levothyroxine Sodium [Synthroid] 50 mcg PO DAILY 05/05/14 08/30/19 traZODone HCL [Desyrel] 100 mg PO HS 04/04/15 08/30/19 Albuterol Inhaler (Mhu) [Ventolin 2 puff INHALATION RT-Q6H PRN 05/23/16 08/30/19 Hfa Inhaler (Mhu)] Meloxicam [Mobic] 15 mg PO DAILY 12/31/16 08/30/19 Topiramate [Trokendi Xr] 200 mg PO DAILY 07/19/17 08/30/19 Venlafaxine HCl [Effexor XR] 225 mg PO HS 07/19/17 08/30/19 Butalb/Acetaminophen/Caffeine 1 cap PO Q4HR PRN 08/28/17 08/30/19 [Fioricet 50-300-40 mg Capsule] HYDROcodone/APAP 7.5-325MG [[place] 1 tab PO TID PRN 03/01/18 08/30/19 7.5-325] Lisdexamfetamine Dimesylate 70 mg PO QAM 11/16/18 08/30/19 [Vyvanse] rOPINIRole HCL [Requip] 0.5 mg PO HS 01/23/19 08/30/19 Famotidine [Pepcid] 40 mg PO DAILY 07/28/19 08/30/19 [place] Fe 1.5-30(21) 1 tab PO HS 08/30/19 08/30/19 Cetirizine HCl [Zyrtec] 10 mg PO DAILY 08/30/19 08/30/19 Erenumab-Aooe [Aimovig 140 mg SQ Q28D 08/30/19 08/30/19 Autoinjector] Pregabalin [Lyrica] 150 mg PO BID 08/30/19 08/30/19 ARIPiprazole [Abilify] 2 mg PO DAILY 08/31/19 08/31/19 Previous Rx's Medication Instructions Recorded HYDROcodone/APAP 7.5-325MG [[place] 1 tab PO Q6HR PRN 3 Days #10 tab 10/27/19 7.5-325] predniSONE 50 mg PO DAILY #5 tab 11/11/19 Cephalexin [Keflex] 500 mg PO Q6HR 2 Days #8 cap 11/25/19 Allergies Allergy/AdvReac Type Severity Reaction Status Date / Time tramadol Allergy Hallucinati Verified 11/24/19 22:46 ons valacyclovir HCl AdvReac BLURRED Verified 11/24/19 22:46 [From Valtrex] VISION Review of Systems ROS Statement: Those systems with pertinent positive or pertinent negative responses have been documented in the HPI. ROS Other: All systems not noted in ROS Statement are negative. Past Medical History Past Medical History: Asthma, Fibromyalgia, GERD/Reflux, Musculoskeletal Disorde r, Sleep Apnea/CPAP/BIPAP, Thyroid Disorder Additional Past Medical History / Comment(s): Hx Migraines, DDD , IBS, NO CPAP used. HX PERFORATED DIVERTICULITIS W/ PAST Colostomy 12/2017. History of Any Multi-Drug Resistant Organisms: None Reported Past Surgical History: Bowel Resection, Breast Surgery, Cholecystectomy, Hernia Repair Additional Past Surgical History / Comment(s): Dental, Rt Breast biopsy. Colostomy 12/2017, THEN Reversal 02/2018. Cholecystectomy - 4-1-19 Past Anesthesia/Blood Transfusion Reactions: No Reported Reaction Past Psychological History: Anxiety, Bipolar, Depression Smoking Status: Never smoker Past Alcohol Use History: Rare Past Drug Use History: None Reported - Past Family History Mother History Unknown: Yes Family Medical History: COPD Additional Family Medical History / Comment(s): depression, anxiety Brother(s) Family Medical History: Diabetes Mellitus General Exam - General Exam Comments Initial Comments: Constitutional: NAD, AOX3, Pt has pleasant affect. HEENT: NC/AT, trachea midline, neck supple, no lymphadenopathy.External ears appear normal, without discharge. Mucous membranes moist. EOM intact. There is no scleral icterus. No pallor noted. Cardiopulmonary: RRR, no murmurs, rubs or gallops, no JVD noted. Lungs CTAB in anterior and posterior murrell. No peripheral edema. Neuro: CN II-XII grossly intact. No nuchal rigidity. No raccon eyes, no shaw sign, no hemotympanum. MSK: 1cm aceration of the proximal aspect of the left hand along the first that her carpal. Superficial. Previously irrigated 1 L normal saline. Approximately 2 simple interrupted sutures. Full active range of motion of hand. Sensation is intact. No posterior calf tenderness bilaterally, homans sign negative bilaterally. Posterior tibialis and radial pulse +2 bilaterally. Sensation intact in upper and lower extremities. Full active ROM in upper and lower extremities, 5/5 stregnth. Limitations: no limitations Course Vital Signs 11/24/19 22:46 Temperature 98.4 F Pulse Rate 64 Respiratory 16 Rate Blood Pressure 140/90 O2 Sat by Pulse 100 Oximetry Procedures - Laceration Laceration #1 Consent Obtained: verbal consent Indication: laceration Site: hand Size (cm): 1 Description: linear Depth: simple, single layer Anesthetic Used: lidocaine 1% Anesthesia Technique: local infiltration Amount (mls): 2 Pre-repair: wound explored, irrigated extensively, deep structures intact Type of Sutures: nylon Size of Sutures: 5-0 Number of Sutures: 2 Technique: simple, interrupted Patient Tolerated Procedure: well, no complications Medical Decision Making - Medical Decision Making 34-year-old female patient presents to ED with superficial laceration palmar aspect along first metacarpal. There is irrigated 1 L of normal saline. Approximated with 2 simple interrupted sutures. Patient will be placed on prophylactic antibiotics. We'll return to ED if condition worsens otherwise will follow up with primary care provider. Case discussed with Dr. Bruno. Disposition Clinical Impression: Laceration Disposition: HOME SELF-CARE Condition: Stable Instructions (If sedation given, give patient instructions): Care For Your Stitches (ED), Laceration (ED) Additional Instructions: Follow up with PCP tomorrow. Return to ED if condition worsens. Please return for suture removal: Hand: 7-10 days Face: 5 days Chest/abdomen: 12-14 days Extremities: 7-10 days Scalp: 7 days Eyebrow: 5-7 days Foot/sole: 12-14 days Please monitor for signs and symptoms of infection including: redness, warmth, drainage, discharge. Please return to ED if these signs or symptoms occur, new signs or symptoms develop or if condition worsens in anyway. Prescriptions: Cephalexin [Keflex] 500 mg PO Q6HR 2 Days #8 cap Is patient prescribed a controlled substance at d/c from ED?: No Referrals: Edgardo Inman MD [Primary Care Provider] - 1-2 days
[2019-11-25] MEDS ORDERED: CEPHALEXIN 500MG STARTER PACK 4 CAP BTL PO STA (00:13)
== END 2019-11-25 00:29 | disposition home or self-care (01) ==
LOC: EC 22:43
DX: S61.412A Laceration without foreign body of left hand, initial encounter (principal); G47.30 Sleep apnea, unspecified; J45.909 Unspecified asthma, uncomplicated; E07.9 Disorder of thyroid, unspecified; F41.9 Anxiety disorder, unspecified; M79.7 Fibromyalgia; F31.9 Bipolar disorder, unspecified; K58.9 Irritable bowel syndrome, unspecified; K21.9 Gastro-esophageal reflux disease without esophagitis; G43.909 Migraine, unspecified, not intractable, without status migrainosus; Z79.890 Hormone replacement therapy; Z79.1 Long term (current) use of non-steroidal anti-inflammatories (NSAID); Z79.899 Other long term (current) drug therapy; Z79.3 Long term (current) use of hormonal contraceptives; Z88.5 Allergy status to narcotic agent; Z99.89 Dependence on other enabling machines and devices; Z88.8 Allergy status to other drugs, medicaments and biological substances; W26.8XXA Contact with other sharp object(s), not elsewhere classified, initial encounter
CPT/HCPCS: 99283; 12001; J2001

== ENCOUNTER 2019-11-27 | Emergency (ER) | payer OTHER ==
--- NOTE | 2019-11-27 18:51 | ED ---
Recheck HPI - General Chief Complaint: Recheck/Abnormal Lab/Rx Stated Complaint: hand lac-revisit Time Seen by Provider: 11/27/19 18:35 Source: patient Mode of arrival: ambulatory Limitations: no limitations - History of Present Illness Initial Comments: Patient is a 34-year-old female presenting to the emergency department with a chief complaint of a suture that came out. Patient reports sutures were placed 2 days ago on her left hand. Patient reports one of the sutures came out today. Patient states she is concerned because she is not able to work. Denies any erythema reports some bleeding from the site. Denies any night sweats or chills. - Related Data Home Medications Medication Instructions Recorded Confirmed Levothyroxine Sodium [Synthroid] 50 mcg PO DAILY 05/05/14 08/30/19 traZODone HCL [Desyrel] 100 mg PO HS 04/04/15 08/30/19 Albuterol Inhaler (Mhu) [Ventolin 2 puff INHALATION RT-Q6H PRN 05/23/16 08/30/19 Hfa Inhaler (Mhu)] Meloxicam [Mobic] 15 mg PO DAILY 12/31/16 08/30/19 Topiramate [Trokendi Xr] 200 mg PO DAILY 07/19/17 08/30/19 Venlafaxine HCl [Effexor XR] 225 mg PO HS 07/19/17 08/30/19 Butalb/Acetaminophen/Caffeine 1 cap PO Q4HR PRN 08/28/17 08/30/19 [Fioricet 50-300-40 mg Capsule] HYDROcodone/APAP 7.5-325MG [[place] 1 tab PO TID PRN 03/01/18 08/30/19 7.5-325] Lisdexamfetamine Dimesylate 70 mg PO QAM 11/16/18 08/30/19 [Vyvanse] rOPINIRole HCL [Requip] 0.5 mg PO HS 01/23/19 08/30/19 Famotidine [Pepcid] 40 mg PO DAILY 07/28/19 08/30/19 [place] Fe 1.5-30(21) 1 tab PO HS 08/30/19 08/30/19 Cetirizine HCl [Zyrtec] 10 mg PO DAILY 08/30/19 08/30/19 Erenumab-Aooe [Aimovig 140 mg SQ Q28D 08/30/19 08/30/19 Autoinjector] Pregabalin [Lyrica] 150 mg PO BID 08/30/19 08/30/19 ARIPiprazole [Abilify] 2 mg PO DAILY 08/31/19 08/31/19 Previous Rx's Medication Instructions Recorded HYDROcodone/APAP 7.5-325MG [[place] 1 tab PO Q6HR PRN 3 Days #10 tab 10/27/19 7.5-325] predniSONE 50 mg PO DAILY #5 tab 11/11/19 Cephalexin [Keflex] 500 mg PO Q6HR 2 Days #8 cap 11/25/19 Allergies Allergy/AdvReac Type Severity Reaction Status Date / Time tramadol Allergy Hallucinati Verified 11/24/19 22:46 ons valacyclovir HCl AdvReac BLURRED Verified 11/24/19 22:46 [From Valtrex] VISION Review of Systems ROS Statement: Those systems with pertinent positive or pertinent negative responses have been documented in the HPI. ROS Other: All systems not noted in ROS Statement are negative. Past Medical History Past Medical History: Asthma, Fibromyalgia, GERD/Reflux, Musculoskeletal Disorder, Sleep Apnea/CPAP/BIPAP, Thyroid Disorder Additional Past Medical History / Comment(s): Hx Migraines, DDD , IBS, NO CPAP used. HX PERFORATED DIVERTICULITIS W/ PAST Colostomy 12/2017. History of Any Multi-Drug Resistant Organisms: None Reported Past Surgical History: Bowel Resection, Breast Surgery, Cholecystectomy, Hernia Repair Additional Past Surgical History / Comment(s): Dental, Rt Breast biopsy. Colostomy 12/2017, THEN Reversal 02/2018. Cholecystectomy - -06-01 Past Anesthesia/Blood Transfusion Reactions: No Reported Reaction Past Psychological History: Anxiety, Bipolar, Depression Smoking Status: Never smoker Past Alcohol Use History: None Reported Past Drug Use History: None Reported - Past Family History Mother History Unknown: Yes Family Medical History: COPD Additional Family Medical History / Comment(s): depression, anxiety Brother(s) Family Medical History: Diabetes Mellitus General Exam Limitations: no limitations General appearance: alert, in no apparent distress, obese Head exam: Present: atraumatic, normocephalic, normal inspection Eye exam: Present: normal appearance, PERRL, EOMI Pupils: Present: normal accommodation ENT exam: Present: normal exam, normal oropharynx, mucous membranes moist, TM's normal bilaterally, normal external ear exam Neck exam: Present: normal inspection, full ROM Respiratory exam: Present: normal lung sounds bilaterally. Absent: respiratory distress, wheezes, rales Cardiovascular Exam: Present: regular rate, normal rhythm, normal heart sounds Extremities exam: Present: full ROM, normal capillary refill. Absent: normal inspection (Small laceration measuring approximately 2 cm that is very superficial on the left hand. There is one suture in place. Some residual blood where the original suture came all), tenderness (.), pedal edema, joint swelling Back exam: Present: normal inspection, full ROM. Absent: tenderness Neurological exam: Present: alert, oriented X3 Psychiatric exam: Present: normal affect, normal mood Skin exam: Present: warm, dry, intact, normal color Course Vital Signs 11/27/19 18:31 Temperature 98.4 F Pulse Rate 71 Respiratory 14 Rate Blood Pressure 111/63 O2 Sat by Pulse 99 Oximetry Medical Decision Making - Medical Decision Making Patient is a 34-year-old female presenting to emergency Department with chief complaint of a suture came out. No signs of any inflammatory processes occurring at the laceration site. There appeared to be some residual blood in the region. One Steri-Strip was applied. Patient advised to return to emergency Department in 4 days for suture removal. Return parameters thoroughly discussed with the patient who is understanding and agreeable. Case discussed with physician. Disposition Clinical Impression: Encounter for re-check of laceration wound Disposition: HOME SELF-CARE Condition: Stable Instructions (If sedation given, give patient instructions): Laceration (DC) Additional Instructions: Return to emergency department for suture removal. Is patient prescribed a controlled substance at d/c from ED?: No Referrals: Edgardo Inman MD [Primary Care Provider] - 1-2 days Time of Disposition: 18:51
== END 2019-11-27 18:58 | disposition home or self-care (01) ==
CPT/HCPCS: 99283

== ENCOUNTER 2019-12-02 19:07 | Emergency (ER) | payer OTHER ==
--- NOTE | 2019-12-02 19:33 | ED ---
General Adult HPI - General Source: patient, RN notes reviewed Mode of arrival: wheelchair Limitations: no limitations <Mic Kahn - Last Filed: 12/02/19 21:36> <Cat Flores - Last Filed: 12/06/19 20:47> - General Chief complaint: Weakness Stated complaint: tired/weak Time Seen by Provider: 12/02/19 19:24 - History of Present Illness Initial comments: 34-year-old female with a past medical history of asthma, fibromyalgia, GERD, , diverticulitis presents to the emergency room for a chief complaint of weakness. Patient states that she has just felt more tired than normal for the past 5 days. States she thinks she is coming down with something. States a couple days ago she started to have diarrhea. Denies any melena or hematochezia. Patient has had an episode of vomiting as well. She denies fevers, she denies abdominal pain. Patient does not believe she is . Patient denies cough congestion sore throat and rhinorrhea shortness of breath or chest pain. Patient has no other complaints at this time including shortness of breath, chest pain, abdominal pain, nausea or vomiting, headache, or visual changes. (Mic Kahn) - Related Data Home Medications Medication Instructions Recorded Confirmed Levothyroxine Sodium [Synthroid] 50 mcg PO DAILY 05/05/14 12/02/19 traZODone HCL [Desyrel] 100 mg PO HS 04/04/15 12/02/19 Albuterol Inhaler (Mhu) [Ventolin 2 puff INHALATION RT-Q6H PRN 05/23/16 12/02/19 Hfa Inhaler (Mhu)] Meloxicam [Mobic] 15 mg PO DAILY 12/31/16 12/02/19 Topiramate [Trokendi Xr] 200 mg PO DAILY 07/19/17 12/02/19 Venlafaxine HCl [Effexor XR] 225 mg PO HS 07/19/17 12/02/19 HYDROcodone/APAP 7.5-325MG [[place] 1 tab PO BID PRN 03/01/18 12/02/19 7.5-325] Lisdexamfetamine Dimesylate 70 mg PO QAM 11/16/18 12/02/19 [Vyvanse] rOPINIRole HCL [Requip] 0.5 mg PO HS 01/23/19 12/02/19 Famotidine [Pepcid] 40 mg PO DAILY 07/28/19 12/02/19 Cetirizine HCl [Zyrtec] 10 mg PO DAILY 08/30/19 12/02/19 Erenumab-Aooe [Aimovig 140 mg SQ Q28D 08/30/19 12/02/19 Autoinjector] Pregabalin [Lyrica] 150 mg PO BID 08/30/19 12/02/19 ARIPiprazole [Abilify] 2 mg PO DAILY 08/31/19 12/02/19 Norethindrone-E.estradiol-Iron 1 tab PO DAILY 12/02/19 12/02/19 [Loestrin Fe 1.5-30 Tablet] Previous Rx's Medication Instructions Recorded Ondansetron [Zofran ODT] 4 mg PO Q8HR PRN #15 tab 12/02/19 Allergies Allergy/AdvReac Type Severity Reaction Status Date / Time tramadol Allergy Hallucinati Verified 12/02/19 20:39 ons valacyclovir HCl AdvReac BLURRED Verified 12/02/19 20:39 [From Valtrex] VISION Review of Systems ROS Other: All systems not noted in ROS Statement are negative. <Mic Kahn P - Last Filed: 12/02/19 21:36> ROS Other: All systems not noted in ROS Statement are negative. <Cat Flores - Last Filed: 12/06/19 20:47> ROS Statement: Those systems with pertinent positive or pertinent negative responses have been documented in the HPI. Past Medical History Past Medical History: Asthma, Fibromyalgia, GERD/Reflux, Musculoskeletal Disorder, Sleep Apnea/CPAP/BIPAP, Thyroid Disorder Additional Past Medical History / Comment(s): Hx Migraines, DDD , IBS, NO CPAP used. HX PERFORATED DIVERTICULITIS W/ PAST Colostomy 12/2017. History of Any Multi-Drug Resistant Organisms: None Reported Past Surgical History: Bowel Resection, Breast Surgery, Cholecystectomy, Hernia Repair Additional Past Surgical History / Comment(s): Dental, Rt Breast biopsy. Colostomy 12/2017, THEN Reversal 02/2018. Cholecystectomy - 4-- Past Anesthesia/Blood Transfusion Reactions: No Reported Reaction Past Psychological History: Anxiety, Bipolar, Depression Smoking Status: Never smoker Past Alcohol Use History: None Reported Past Drug Use History: None Reported - Past Family History Mother History Unknown: Yes Family Medical History: COPD Additional Family Medical History / Comment(s): depression, anxiety Brother(s) Family Medical History: Diabetes Mellitus <Mic Kahn - Last Filed: 12/02/19 21:36> General Exam Limitations: no limitations General appearance: alert, in no apparent distress Head exam: Present: atraumatic, normocephalic, normal inspection Eye exam: Present: normal appearance, PERRL, EOMI. Absent: scleral icterus, conjunctival injection, periorbital swelling ENT exam: Present: normal exam, normal oropharynx, mucous membranes moist, normal external ear exam Neck exam: Present: normal inspection, full ROM. Absent: tenderness, meningismus, lymphadenopathy Respiratory exam: Present: normal lung sounds bilaterally. Absent: respiratory distress, wheezes, rales, rhonchi, stridor Cardiovascular Exam: Present: regular rate, normal rhythm, normal heart sounds. Absent: systolic murmur, diastolic murmur, rubs, gallop, clicks GI/Abdominal exam: Present: soft, normal bowel sounds. Absent: distended, tenderness, guarding, rebound, rigid Back exam: Absent: CVA tenderness (R), CVA tenderness (L) Neurological exam: Present: alert <Mic Kahn P - Last Filed: 12/02/19 21:36> Course Vital Signs 12/02/19 12/02/19 12/02/19 19:16 19:56 22:15 Temperature 98.5 F 98 F 98.0 F Pulse Rate 74 66 60 Respiratory 17 16 18 Rate Blood Pressure 119/77 124/69 111/65 O2 Sat by Pulse 98 99 100 Oximetry Medical Decision Making - Lab Data Result diagrams: 12/02/19 19:45 12/02/19 19:45 <Mic Kahn - Last Filed: 12/02/19 21:36> - Lab Data Result diagrams: 12/02/19 19:45 12/02/19 19:45 <Cat Flores - Last Filed: 12/06/19 20:47> - Medical Decision Making Vitals are stable. CBC CMP unremarkable. Patient does have turbid urine with occasional bacteria however does not have any symptoms of UTI. Chest x-ray is negative. Patient symptoms a be viral in causing nausea vomiting and diarrhea. She is a have any abdominal pain or tenderness. At this time patient will be discharged home to follow up with primary care. [place] virus pending. She will return here for any worsening symptoms which were discussed with her. (Mic Kahn) I was available for consultation in the emergency department. The history and physical exam were done by the midlevel provider. I was consulted for this patients care. I reviewed the case with the midlevel provider and based on their presentation of the patient, I agree with the assessment, medical decision making and plan of care as documented. Chart was dictated using [employer] dictation software. Attempts were made to correct any dictation errors however some typographical errors may persist. Patient was seen during a [facility] of emergency due to the Covid-19 pand emic. (Cat Flores) - Lab Data Lab Results 12/02/19 12/02/19 12/02/19 Range/Units 19:45 19:45 19:45 WBC 12.2 H (3.8-10.6) k/uL RBC 4.75 (3.80-5.40) m/uL Hgb 11.7 (11.4-16.0) gm/dL Hct 37.3 (34.0-46.0) % MCV 78.6 L (80.0-100.0) fL MCH 24.5 L (25.0-35.0) pg MCHC 31.2 (31.0-37.0) g/dL RDW 15.7 H (11.5-15.5) % Plt Count 445 (150-450) k/uL Neutrophils % 66 % Lymphocytes % 27 % Monocytes % 5 % Eosinophils % 1 % Basophils % 0 % Neutrophils # 8.0 H (1.3-7.7) k/uL Lymphocytes # 3.2 (1.0-4.8) k/uL Monocytes # 0.6 (0-1.0) k/uL Eosinophils # 0.2 (0-0.7) k/uL Basophils # 0.1 (0-0.2) k/uL Hypochromasia Moderate Microcytosis Slight Sodium 138 (137-145) mmol/L Potassium 4.4 (3.5-5.1) mmol/L Chloride 110 H (98-107) mmol/L Carbon Dioxide 21 L (22-30) mmol/L Anion Gap 7 mmol/L BUN 15 (7-17) mg/dL Creatinine 0.75 (0.52-1.04) mg/dL Est GFR (CKD-EPI)AfAm >90 (>60 ml/min/1.73 sqM) Est GFR (CKD-EPI)NonAf >90 (>60 ml/min/1.73 sqM) Glucose 100 H (74-99) mg/dL Calcium 9.1 (8.4-10.2) mg/dL Total Bilirubin 0.4 (0.2-1.3) mg/dL AST 24 (14-36) U/L ALT 18 (4-34) U/L Alkaline Phosphatase 59 (38-126) U/L Total Protein 6.8 (6.3-8.2) g/dL Albumin 3.8 (3.5-5.0) g/dL Urine Color Urine Appearance (Clear) Urine pH (5.0-8.0) Ur Specific [place] (1.001-1.035) Urine Protein (Negative) Urine Glucose (UA) (Negative) Urine Ketones (Negative) Urine Blood (Negative) Urine Nitrite (Negative) Urine Bilirubin (Negative) Urine Urobilinogen (<2.0) mg/dL Ur Leukocyte Esterase (Negative) Urine RBC (0-5) /hpf Ur Squamous Epith Cells (0-4) /hpf Amorphous Sediment (None) /hpf Urine Bacteria (None) /hpf Urine HCG, Qual Not Detected (Not Detectd) Coronavirus (PCR) 12/02/19 12/02/19 Range/Units 19:45 19:55 WBC (3.8-10.6) k/uL RBC (3.80-5.40) m/uL Hgb (11.4-16.0) gm/dL Hct (34.0-46.0) % MCV (80.0-100.0) fL MCH (25.0-35.0) pg MCHC (31.0-37.0) g/dL RDW (11.5-15.5) % Plt Count (150-450) k/uL Neutrophils % % Lymphocytes % % Monocytes % % Eosinophils % % Basophils % % Neutrophils # (1.3-7.7) k/uL Lymphocytes # (1.0-4.8) k/uL Monocytes # (0-1.0) k/uL Eosinophils # (0-0.7) k/uL Basophils # (0-0.2) k/uL Hypochromasia Microcytosis Sodium (137-145) mmol/L Potassium (3.5-5.1) mmol/L Chloride (98-107) mmol/L Carbon Dioxide (22-30) mmol/L Anion Gap mmol/L BUN (7-17) mg/dL Creatinine (0.52-1.04) mg/dL Est GFR (CKD-EPI)AfAm (>60 ml/min/1.73 sqM) Est GFR (CKD-EPI)NonAf (>60 ml/min/1.73 sqM) Glucose (74-99) mg/dL Calcium (8.4-10.2) mg/dL Total Bilirubin (0.2-1.3) mg/dL AST (14-36) U/L ALT (4-34) U/L Alkaline Phosphatase (38-126) U/L Total Protein (6.3-8.2) g/dL Albumin (3.5-5.0) g/dL Urine Color Yellow Urine Appearance Turbid H (Clear) Urine pH 8.0 (5.0-8.0) Ur Specific [place] 1.017 (1.001-1.035) Urine Protein Negative (Negative) Urine Glucose (UA) Negative (Negative) Urine Ketones Negative (Negative) Urine Blood Negative (Negative) Urine Nitrite Negative (Negative) Urine Bilirubin Negative (Negative) Urine Urobilinogen 2.0 (<2.0) mg/dL Ur Leukocyte Esterase Trace H (Negative) Urine RBC 1 (0-5) /hpf Ur Squamous Epith Cells 2 (0-4) /hpf Amorphous Sediment Rare H (None) /hpf Urine Bacteria Occasional H (None) /hpf Urine HCG, Qual (Not Detectd) Coronavirus (PCR) Not Detected Disposition Is patient prescribed a controlled substance at d/c from ED?: No Time of Disposition: 21:36 <Mic Kahn P - Last Filed: 12/02/19 21:36> <Cat Flores - Last Filed: 12/06/19 20:47> Clinical Impression: Nausea vomiting and diarrhea Disposition: HOME SELF-CARE Condition: Good Instructions (If sedation given, give patient instructions): Acute Nausea and Vomiting (ED), Acute Diarrhea (ED) Additional Instructions: Drink plenty of fluids. Take Zofran as needed for nausea. If you have any worsening symptoms return to the emergency room. Otherwise follow-up with primary care in 1-2 days. Prescriptions: Ondansetron [Zofran ODT] 4 mg PO Q8HR PRN #15 tab PRN Reason: Nausea Referrals: Edgardo Inman MD [Primary Care Provider] - 1-2 days
[2019-12-02 20:11] LABS: Basophils # (A) 0.1 k/uL (0-0.2); Basophils % (A) 0 %; Eosinophils # (A) 0.2 k/uL (0-0.7); Eosinophils % (A) 1 %; HCT 37.3 % (34.0-46.0); HGB 11.7 gm/dL (11.4-16.0); Hypochromasia Moderate; Lymphocytes # (A) 3.2 k/uL (1.0-4.8); Lymphocytes % (A) 27 %; MCH 24.5 pg (25.0-35.0); MCHC 31.2 g/dL (31.0-37.0); MCV 78.6 fL (80.0-100.0); Mean Platelet Volume 7.4; Microcytosis Slight; Monocytes # (A) 0.6 k/uL (0-1.0); Monocytes % (A) 5 %; Neutrophils % (A) 66 %; Platelet Count 445 k/uL (150-450); RBC 4.75 m/uL (3.80-5.40); RDW 15.7 % (11.5-15.5); WBC 12.2 k/uL (3.8-10.6)
[2019-12-02] MEDS ORDERED: SODIUM CHLORIDE 0.9% 1,000 ML IV STA (20:17)
[2019-12-02 20:18] LABS: Amorphous Sediment,Urine Rare /hpf; Appearance,Urine Turbid (Clear); Bacteria,Urine Occasional /hpf; Bilirubin,Urine Negative (Negative); Blood,Urine Negative (Negative); Color,Urine Yellow; Glucose,Urine (UA) Negative (Negative); Ketones,Urine Negative (Negative); Leukocyte Esterase,Urine Trace (Negative); Nitrite,Urine Negative (Negative); Protein,Urine Negative (Negative); RBC,Urine 1 /hpf (0-5); Specific Gravity,Urine 1.017 (1.001-1.035); Squamous Epithelial Cell,Urine 2 /hpf (0-4)
[2019-12-02 20:32] LABS: ALT 18 U/L (4-34); AST 24 U/L (14-36); African American GFR (CKD) >90 (>60 ml/min/1.73 sqM); Albumin 3.8 g/dL (3.5-5.0); Alkaline Phosphatase 59 U/L (38-126); Anion Gap 7 mmol/L; Blood Urea Nitrogen 15 mg/dL (7-17); Calcium 9.1 mg/dL (8.4-10.2); Carbon Dioxide 21 mmol/L (22-30); Chloride 110 mmol/L (98-107); Glucose 100 mg/dL (74-99); Non-African American GFR(CKD) >90 (>60 ml/min/1.73 sqM); Potassium 4.4 mmol/L (3.5-5.1); Sodium 138 mmol/L (137-145); Total Bilirubin 0.4 mg/dL (0.2-1.3); Total Protein 6.8 g/dL (6.3-8.2)
--- NOTE | 2019-12-02 21:05 | XR ---
EXAMINATION TYPE: XR chest 2V DATE OF EXAM: 12/02/2019 COMPARISON: 11/11/2019 HISTORY: Weakness. Chest pain TECHNIQUE: FINDINGS: Heart and mediastinum are normal. Lungs are clear. Diaphragm is normal. Bony thorax appears normal. IMPRESSION: Normal chest. No change.
[2019-12-02 22:28] VITALS: BP 111/65; PULSE 60; RESP 18; TEMP 98
== END 2019-12-02 22:15 | disposition home or self-care (01) ==
LOC: EC 19:07
DX: R11.2 Nausea with vomiting, unspecified (principal); R19.7 Diarrhea, unspecified; R53.1 Weakness; R53.83 Other fatigue; J45.909 Unspecified asthma, uncomplicated; M79.7 Fibromyalgia; K21.9 Gastro-esophageal reflux disease without esophagitis; G43.909 Migraine, unspecified, not intractable, without status migrainosus; E07.9 Disorder of thyroid, unspecified; F41.9 Anxiety disorder, unspecified; F32.9 Major depressive disorder, single episode, unspecified; G47.30 Sleep apnea, unspecified; Z99.89 Dependence on other enabling machines and devices; Z20.828 Contact with and (suspected) exposure to other viral communicable diseases; Z79.890 Hormone replacement therapy; Z79.1 Long term (current) use of non-steroidal anti-inflammatories (NSAID); Z79.3 Long term (current) use of hormonal contraceptives; Z79.899 Other long term (current) drug therapy; Z88.5 Allergy status to narcotic agent; Z88.8 Allergy status to other drugs, medicaments and biological substances
CPT/HCPCS: 99285; 96360; 96361; 36415; 80053; 85025; 81001; 81025; 71046; U0003

== ENCOUNTER → 2020-02-27 | Outpatient (CLI) | payer OTHER | END | disposition home or self-care (01) | LOC: LABWHC1 08:58 | PROVIDERS: ATTEND Physician Assistant | DX: I49.9 Cardiac arrhythmia, unspecified (principal) | CPT/HCPCS: 36415; 93005 ==

== ENCOUNTER 2020-04-21 14:06 | Observation (INO) | payer OTHER ==
[2020-04-21] MEDS ORDERED: MORPHINE SULFATE 4 MG/ML SYRINGE IM STA (15:33)
[2020-04-21] MEDS ORDERED: METOCLOPRAMIDE 5 MG/ML 2 ML VIAL IVP STA (15:33)
[2020-04-21 15:49] LABS: Basophils # (A) 0.1 k/uL (0-0.2); Basophils % (A) 1 %; Eosinophils # (A) 0.2 k/uL (0-0.7); Eosinophils % (A) 2 %; HCT 38.1 % (34.0-46.0); HGB 12.1 gm/dL (11.4-16.0); Hypochromasia Slight; Lymphocytes # (A) 2.6 k/uL (1.0-4.8); Lymphocytes % (A) 21 %; MCH 25.5 pg (25.0-35.0); MCHC 31.9 g/dL (31.0-37.0); Mean Platelet Volume 7.2; Monocytes # (A) 0.4 k/uL (0-1.0); Monocytes % (A) 3 %; Neutrophils # (A) 8.8 k/uL (1.3-7.7); Neutrophils % (A) 72 %; Platelet Count 387 k/uL (150-450); RBC 4.76 m/uL (3.80-5.40); RDW 14.8 % (11.5-15.5); WBC 12.3 k/uL (3.8-10.6)
[2020-04-21 16:17] LABS: ALT 25 U/L (4-34); AST 30 U/L (14-36); African American GFR (CKD) >90 (>60 ml/min/1.73 sqM); Alkaline Phosphatase 74 U/L (38-126); Anion Gap 5 mmol/L; Blood Urea Nitrogen 21 mg/dL (7-17); Calcium 9.1 mg/dL (8.4-10.2); Carbon Dioxide 24 mmol/L (22-30); Chloride 109 mmol/L (98-107); Glucose 88 mg/dL (74-99); Lipase 269 U/L (23-300); Non-African American GFR(CKD) 84 (>60 ml/min/1.73 sqM); Potassium 4.1 mmol/L (3.5-5.1); Sodium 138 mmol/L (137-145); Total Bilirubin 0.3 mg/dL (0.2-1.3); Total Protein 7.4 g/dL (6.3-8.2)
[2020-04-21 16:31] LABS: Appearance,Urine Cloudy (Clear); Bacteria,Urine Many /hpf; Bilirubin,Urine Negative (Negative); Blood,Urine Negative (Negative); Color,Urine Yellow; Glucose,Urine (UA) Negative (Negative); Ketones,Urine Negative (Negative); Leukocyte Esterase,Urine Large (Negative); Mucus,Urine Moderate /hpf; Nitrite,Urine Negative (Negative); PH, Urine 6.5 (5.0-8.0); Protein,Urine Trace (Negative); RBC,Urine 1 /hpf (0-5); Specific Gravity,Urine 1.024 (1.001-1.035); Squamous Epithelial Cell,Urine 14 /hpf (0-4); Urobilinogen,Urine <2.0 mg/dL (<2.0); WBC,Urine 6 /hpf (0-5)
--- NOTE | 2020-04-21 17:00 | CT ---
EXAMINATION TYPE: CT abdomen pelvis w con DATE OF EXAM: 04/21/2020 COMPARISON: 08/30/2019 HISTORY: Right sided abdominal pain CT DLP: 2284.1 mGycm Automated exposure control for dose reduction was used. CONTRAST: Performed with IV Contrast, patient injected with 100 mL of Isovue 300. The lung bases are clear of consolidation. There is no pleural effusion. Heart size is normal. There is no pericardial effusion. The liver spleen pancreas appear normal. There are clips from cholecystectomy. The bile ducts are not dilated. There is no adrenal mass. Kidneys show satisfactory contrast opacification. There is no hydronephrosi s. Delayed images show normal renal excretion. There is no retroperitoneal adenopathy. Appendix is posterior and appears normal. Bladder distends smoothly. There is no inguinal hernia. There is no free fluid in the pelvis. There i s no sign of a pelvic mass. Uterus is anteverted. There is subcutaneous fluid over the anterior mid abdomen that measures 11 x 3 cm. There is no mesenteric edema. There is no ascites or free air. There is no sign of a bowel obstructio n. IMPRESSION: Subcutaneous fluid over the anterior abdomen consistent with hematoma this appears increased compared to old CT scan. No acute abnormality within the abdomen and pelvis. Normal appendix.
[2020-04-21] MEDS ORDERED: PIPERACILLIN-TAZOBACTAM 3.375 GM in SODIUM CHLORIDE 0.9% 100 ML IVPB STA (17:22)
[2020-04-21] MEDS ORDERED: NALOXONE 0.4 MG/ML 1 ML VIAL IV PRN (17:33)
--- NOTE | 2020-04-21 17:36 | ED ---
General Adult HPI - General Source: patient, RN notes reviewed, old records reviewed Mode of arrival: wheelchair Limitations: no limitations <Landon Elias - Last Filed: 04/21/20 17:35> <Cat Flores - Last Filed: 04/25/20 00:56> - General Chief complaint: Abdominal Pain Stated complaint: Abd Pain Time Seen by Provider: 04/21/20 15:04 - History of Present Illness Initial comments: 34 old female patient to ED for right lower quadrant abdominal pain. Patient had numerous abdominal surgeries including after colitis with perforation, partial colectomy, colostomy with reversal. Patient had a mesh revision done about 4 months ago. Abdominal pain began approximately 30 minutes prior to arrival to Hospital. Primarily right lower quadrant. Sharp and stabbing. Nausea without emesis. Systemic: Pt denies fatigue, fever/chills, rash. Pt denies weakness, night sweats, weight loss. Neuro: Pt denies headache, visual disturbances, syncope or pre-syncope. HEENT: Pt denies ocular discharge or irritation, otalgia, rhinorrhea, pharyngitis or notable lymphadenopathy. Cardiopulmonary: Pt denies chest pain, SOB, heart palpitations, dyspnea on exertion. Abdominal/GI: Pt denies v/d. : Pt denies dysuria, burning w/ urination, frequency/urgency. Denies new onset urinary or bowel incontinence. MSK: Pt denies myalgia, loss of strength or function in extremities. Neuro: Pt denies new onset weakness, paresthesias. (Landon Elias) - Related Data Home Medications Medication Instructions Recorded Confirmed Levothyroxine Sodium [Synthroid] 50 mcg PO DAILY 05/05/14 04/21/20 traZODone HCL [Desyrel] 100 mg PO HS 04/04/15 04/21/20 Topiramate [Trokendi Xr] 200 mg PO DAILY 07/19/17 04/21/20 Venlafaxine HCl [Effexor XR] 225 mg PO HS 07/19/17 04/21/20 HYDROcodone/APAP 7.5-325MG [[place] 1 tab PO BID PRN 03/01/18 04/21/20 7.5-325] rOPINIRole HCL [Requip] 0.5 mg PO HS 01/23/19 04/21/20 Famotidine [Pepcid] 40 mg PO DAILY 07/28/19 04/21/20 Cetirizine HCl [Zyrtec] 10 mg PO DAILY 08/30/19 04/21/20 Erenumab-Aooe [Aimovig 140 mg SQ Q28D 08/30/19 04/21/20 Autoinjector] Pregabalin [Lyrica] 150 mg PO BID 08/30/19 04/21/20 ARIPiprazole [Abilify] 2 mg PO HS 08/31/19 04/21/20 Albuterol Sulfate [Proventil Hfa] 1 puff INHALATION RT-Q4H PRN 04/21/20 04/21/20 Blisovi Fe 1.5-30 1 tab PO HS 04/21/20 04/21/20 Previous Rx's Medication Instructions Recorded Amoxicillin/Potassium Clav 1 tab PO Q12HR 5 Days #10 tab 04/23/20 [Augmentin 875-125 Tablet] Allergies Allergy/AdvReac Type Severity Reaction Status Date / Time tramadol Allergy Hallucinati Verified 04/21/20 18:14 ons valacyclovir HCl AdvReac BLURRED Verified 04/21/20 18:14 [From Valtrex] VISION Review of Systems ROS Other: All systems not noted in ROS Statement are negative. <Landon Elias - Last Filed: 04/21/20 17:35> ROS Other: All systems not noted in ROS Statement are negative. <Cat Flores - Last Filed: 04/25/20 00:56> ROS Statement: Those systems with pertinent positive or pertinent negative responses have been documented in the HPI. Past Medical History Past Medical History: Asthma, Fibromyalgia, GERD/Reflux, Musculoskeletal Disorder, Sleep Apnea/CPAP/BIPAP, Thyroid Disorder Additional Past Medical History / Comment(s): Hx Migraines, DDD , IBS, NO CPAP used. HX PERFORATED DIVERTICULITIS W/ PAST Colostomy 12/2017. History of Any Multi-Drug Resistant Organisms: None Reported Past Surgical History: Bowel Resection, Breast Surgery, Cholecystectomy, Hernia Repair Additional Past Surgical History / Comment(s): Dental, Rt Breast biopsy. Colostomy 12/2017, THEN Reversal 02/2018. Cholecystectomy - 4-06-01 Past Anesthesia/Blood Transfusion Reactions: No Reported Reaction Past Psychological History: Anxiety, Bipolar, Depression Smoking Status: Never smoker Past Alcohol Use History: Occasional Past Drug Use History: None Reported - Past Family History Mother History Unknown: Yes Family Medical History: COPD Additional Family Medical History / Comment(s): depression, anxiety Brother(s) Family Medical History: Diabetes Mellitus <Landon Elias - Last Filed: 04/21/20 17:35> General Exam Limitations: no limitations <Landon Elias - Last Filed: 04/21/20 17:35> - General Exam Comments Initial Comments: Constitutional: NAD, AOX3, Pt has pleasant affect. HEENT: NC/AT, trachea midline, neck supple, no lymphadenopathy. Posterior pharynx non erythematous, without exudates. External ears appear normal, without discharge. Mucous membranes moist. Eyes PERRLA, EOM intact. There is no scleral icterus. No pallor noted. Cardiopulmonary: RRR, no murmurs, rubs or gallops, no JVD noted. Lungs CTAB in anterior and posterior murrell. No peripheral edema. Abdominal exam: Abdomen soft and non-distended. Abdomen mildly tender to palpation in RLQ region. Bowel sounds active in LLQ. No hepatosplenomegaly. No ecchymosis Neuro: CN II-XII grossly intact. No nuchal rigidity. No raccon eyes, no shaw sign, no hemotympanum. No cervical spinal tenderness. MSK: Full active ROM in upper and lower extremities, 5/5 stregnth. (Landon Elias) Course Vital Signs 04/21/20 04/21/20 04/21/20 14:16 17:52 18:16 Temperature 98.2 F 98.0 F 98.1 F Pulse Rate 105 H 99 Pulse Rate [ 79 Pulse Oximetery ] Respiratory 18 18 16 Rate Blood Pressure 126/86 122/78 Blood Pressure 143/93 [Left Arm] O2 Sat by Pulse 99 99 100 Oximetry 04/21/20 20:06 Temperature 98.3 F Pulse Rate 82 Pulse Rate [ Pulse Oximetery ] Respiratory 18 Rate Blood Pressure 122/68 Blood Pressure [Left Arm] O2 Sat by Pulse 99 Oximetry Medical Decision Making - Lab Data Result diagrams: 04/21/20 15:27 04/21/20 15:27 <Landon Elias - Last Filed: 04/21/20 17:35> - Lab Data Result diagrams: 04/23/20 07:50 04/23/20 07:50 <Cat Flores - Last Filed: 04/25/20 00:56> - Medical Decision Making 34 old female patient to ED for right lower quadrant abdominal pain. Patient had numerous abdominal surgeries including after colitis with perforation, partial colectomy, colostomy with reversal. Patient had a mesh revision done about 4 months ago. Abdominal pain began approximately 30 minutes prior to arrival to Hospital. Primarily right lower quadrant. Sharp and stabbing. Nausea without emesis. Patient vital signs are stable, afebrile. Physical exam is a mild tenderness to right lower quadrant region. Laboratory investigations revealed mild leukocytosis of 12, mild urinary tract infection. CT abdomen and pelvis does display a likely hematoma increased from prior. A months ago. I discussed case with Dr. Son who will admit patient. Case dicussed with Dr. Flores. (Landon Elias) I was available for consultation in the emergency department. The history and physical exam were done by the midlevel provider. I was consulted for this patients care. I reviewed the case with the midlevel provider and based on their presentation of the patient, I agree with the assessment, medical decision making and plan of care as documented. Chart was dictated using [employer] dictation software. Attempts were made to correct any dictation errors however some typographical errors may persist. Patient was seen during a national state of emergency due to the Covid-19 pandemic. (Cat Flores) - Lab Data Lab Results 04/21/20 04/21/20 04/21/20 Range/Units 15:27 15:27 15:27 WBC 12.3 H (3.8-10.6) k/uL RBC 4.76 (3.80-5.40) m/uL Hgb 12.1 (11.4-16.0) gm/dL Hct 38.1 (34.0-46.0) % MCV 80.0 (80.0-100.0) fL MCH 25.5 (25.0-35.0) pg MCHC 31.9 (31.0-37.0) g/dL RDW 14.8 (11.5-15.5) % Plt Count 387 (150-450) k/uL MPV 7.2 Neutrophils % 72 % Lymphocytes % 21 % Monocytes % 3 % Eosinophils % 2 % Basophils % 1 % Neutrophils # 8.8 H (1.3-7.7) k/uL Lymphocytes # 2.6 (1.0-4.8) k/uL Monocytes # 0.4 (0-1.0) k/uL Eosinophils # 0.2 (0-0.7) k/uL Basophils # 0.1 (0-0.2) k/uL Hypochromasia Slight Sodium (137-145) mmol/L Potassium (3.5-5.1) mmol/L Chloride (98-107) mmol/L Carbon Dioxide (22-30) mmol/L Anion Gap mmol/L BUN (7-17) mg/dL Creatinine (0.52-1.04) mg/dL Est GFR (CKD-EPI)AfAm (>60 ml/min/1.73 sqM) Est GFR (CKD-EPI)NonAf (>60 ml/min/1.73 sqM) Glucose (74-99) mg/dL Plasma Lactic Acid Yobani (0.7-2.0) mmol/L Calcium (8.4-10.2) mg/dL Total Bilirubin (0.2-1.3) mg/dL AST (14-36) U/L ALT (4-34) U/L Alkaline Phosphatase (38-126) U/L Total Protein (6.3-8.2) g/dL Albumin (3.5-5.0) g/dL Lipase (23-300) U/L Urine Color Yellow Urine Appearance Cloudy H (Clear) Urine pH 6.5 (5.0-8.0) Ur Specific [place] 1.024 (1.001-1.035) Urine Protein Trace H (Negative) Urine Glucose (UA) Negative (Negative) Urine Ketones Negative (Negative) Urine Blood Negative (Negative) Urine Nitrite Negative (Negative) Urine Bilirubin Negative (Negative) Urine Urobilinogen <2.0 (<2.0) mg/dL Ur Leukocyte Esterase Large H (Negative) Urine RBC 1 (0-5) /hpf Urine WBC 6 H (0-5) /hpf Ur Squamous Epith Cells 14 H (0-4) /hpf Urine Bacteria Many H (None) /hpf Urine Mucus Moderate H (None) /hpf Urine HCG, Qual Not Detected (Not Detectd) 04/21/20 04/21/20 Range/Units 15:27 15:27 WBC (3.8-10.6) k/uL RBC (3.80-5.40) m/uL Hgb (11.4-16.0) gm/dL Hct (34.0-46.0) % MCV (80.0-100.0) fL MCH (25.0-35.0) pg MCHC (31.0-37.0) g/dL RDW (11.5-15.5) % Plt Count (150-450) k/uL MPV Neutrophils % % Lymphocytes % % Monocytes % % Eosinophils % % Basophils % % Neutrophils # (1.3-7.7) k/uL Lymphocytes # (1.0-4.8) k/uL Monocytes # (0-1.0) k/uL Eosinophils # (0-0.7) k/uL Basophils # (0-0.2) k/uL Hypochromasia Sodium 138 (137-145) mmol/L Potassium 4.1 (3.5-5.1) mmol/L Chloride 109 H (98-107) mmol/L Carbon Dioxide 24 (22-30) mmol/L Anion Gap 5 mmol/L BUN 21 H (7-17) mg/dL Creatinine 0.89 (0.52-1.04) mg/dL Est GFR (CKD-EPI)AfAm >90 (>60 ml/min/1.73 sqM) Est GFR (CKD-EPI)NonAf 84 (>60 ml/min/1.73 sqM) Glucose 88 (74-99) mg/dL Plasma Lactic Acid Yobani 1.1 (0.7-2.0) mmol/L Calcium 9.1 (8.4-10.2) mg/dL Total Bilirubin 0.3 (0.2-1.3) mg/dL AST 30 (14-36) U/L ALT 25 (4-34) U/L Alkaline Phosphatase 74 (38-126) U/L Total Protein 7.4 (6.3-8.2) g/dL Albumin 4.0 (3.5-5.0) g/dL Lipase 269 (23-300) U/L Urine Color Urine Appearance (Clear) Urine pH (5.0-8.0) Ur Specific [place] (1.001-1.035) Urine Protein (Negative) Urine Glucose (UA) (Negative) Urine Ketones (Negative) Urine Blood (Negative) Urine Nitrite (Negative) Urine Bilirubin (Negative) Urine Urobilinogen (<2.0) mg/dL Ur Leukocyte Esterase (Negative) Urine RBC (0-5) /hpf Urine WBC (0-5) /hpf Ur Squamous Epith Cells (0-4) /hpf Urine Bacteria (None) /hpf Urine Mucus (None) /hpf Urine HCG, Qual (Not Detectd) Disposition Is patient prescribed a controlled substance at d/c from ED?: No <Landon Elias - Last Filed: 04/21/20 17:35> <Cat Flores - Last Filed: 04/25/20 00:56> Clinical Impression: Abdominal pain, Hematoma Disposition: ADMITTED IP TO THIS HOSP Condition: Stable
[2020-04-21] MEDS: MORPHINE SULFATE 4 MG/ML SYRINGE IV PRN (19:50)
[2020-04-21 19:53] LABS: Partial Thromboplastin Time 25.2 sec (22.0-30.0); Prothrombin Time 10.2 sec (9.0-12.0)
[2020-04-22] MEDS: SODIUM CHLORIDE 0.9% 1,000 ML IV SCH ×2 (00:03→21:23)
[2020-04-22] MEDS: PIPERACILLIN-TAZOBACTAM 3.375 GM in SODIUM CHLORIDE 0.9% 100 ML IVPB SCH ×4 (00:03→23:31)
[2020-04-22] MEDS: MORPHINE SULFATE 4 MG/ML SYRINGE IV PRN ×4 (01:38→23:27)
[2020-04-22 07:39] LABS: Basophils # (A) 0.1 k/uL (0-0.2); Basophils % (A) 1 %; Eosinophils # (A) 0.5 k/uL (0-0.7); Eosinophils % (A) 5 %; HCT 36.5 % (34.0-46.0); HGB 11.3 gm/dL (11.4-16.0); Hypochromasia Moderate; Lymphocytes # (A) 2.8 k/uL (1.0-4.8); Lymphocytes % (A) 31 %; MCH 25.2 pg (25.0-35.0); MCHC 30.9 g/dL (31.0-37.0); MCV 81.4 fL (80.0-100.0); Mean Platelet Volume 7.7; Monocytes # (A) 0.4 k/uL (0-1.0); Monocytes % (A) 5 %; Neutrophils # (A) 5.1 k/uL (1.3-7.7); Neutrophils % (A) 57 %; Platelet Count 345 k/uL (150-450); RBC 4.48 m/uL (3.80-5.40); RDW 15.1 % (11.5-15.5)
[2020-04-22 07:40] LABS: African American GFR (CKD) >90 (>60 ml/min/1.73 sqM); Anion Gap 4 mmol/L; Blood Urea Nitrogen 22 mg/dL (7-17); Calcium 8.3 mg/dL (8.4-10.2); Carbon Dioxide 22 mmol/L (22-30); Chloride 113 mmol/L (98-107); Glucose 106 mg/dL (74-99); Non-African American GFR(CKD) 88 (>60 ml/min/1.73 sqM); Sodium 139 mmol/L (137-145)
[2020-04-22 07:42] LABS: Potassium 4.4 mmol/L (3.5-5.1)
[2020-04-22] MEDS ORDERED: ONDANSETRON 4 MG/2 ML VIAL IVP PRN (11:07)
--- NOTE | 2020-04-22 11:18 | P.GSHP ---
History of Present Illness H&P Date: 04/22/20 CHIEF COMPLAINT: Right lower quadrant abdominal pain HISTORY OF PRESENT ILLNESS: This is a 34-year-old female with a known past medical history of multiple abdominal surgeries including bowel resection with colostomy and reversal for a perforated right diverticulitis, cholecystectomy and incisional hernia repair. In August 2019 patient underwent incision and drainage of infected seroma with removal of mesh from her hernia. She did have to have wound VAC placed at that time. Patient had been in good health and then yesterday had sharp right lower quadrant abdominal pain. Pain continued to i ncrease. Therefore she came into the ER for further evaluation. She admits to having nausea no vomiting. No change in bowel habits. Computed tomography scan of the abdomen and pelvis with contrast shows subcutaneous fluid over the anterior abdomen consistent with hematoma this appears increased compared to old CT scan. No acute abnormality within the abdomen and pelvis. Normal appendix. Patient denies any fever chills or sweats. Pain is controlled with pain medication. PAST MEDICAL HISTORY: See list. PAST SURGICAL HISTORY: See list. MEDICATIONS: See list. ALLERGIES: See list. SOCIAL HISTORY: No illicit drug use. REVIEW OF SYSTEMS: CONSTITUTIONAL: Denies fever or chills. HEENT: Denies blurred vision, vision changes, or eye pain. Denies hemoptysis CARDIOVASCULAR: Denies chest pain or pressure. RESPIRATORY: No shortness of breath. GASTROINTESTINAL: See HPI for pertinent findings HEMATOLOGIC: Denies bleeding disorders. GENITOURINARY: Denies any blood in urine or increased urinary frequency. SKIN: Denies pruitis. Denies rash. PHYSICAL EXAM: VITAL SIGNS: Reviewed GENERAL: Well-developed in no acute distress. HEENT: No sclera icterus. Extraocular movements grossly intact. Moist buccal mucosa. Head is atraumatic, normocephalic. No nasal drainage. ABDOMEN: Soft. Obese. Nondistended. Tenderness with palpation in the right lower quadrant. No ecchymosis NEUROLOGIC: Alert and oriented. Cranial nerves II through XII grossly intact. LABORATORY DATA: WBC 12.3 down to 9.0 hemoglobin 12.1 down to 11.3 Lactic 1.1 LFTs normal Lipase 269 UA showing contamination IMAGING: Computed tomography scan of the abdomen and pelvis with contrast shows subcutaneous fluid over the anterior abdomen consistent with hematoma this appears increased compared to old CT scan. No acute abnormality within the abdomen and pelvis. Normal appendix. ASSESSMENT: 1. Right lower quadrant Abdominal pain 2. Subcutaneous fluid over the anterior abdomen consistent with hematoma noted on CAT scan to have increased in size 3. History of multiple abdominal surgeries as stated above PLAN: -We'll continue conservative management. No surgical intervention planned. -Continue IV antibiotics -Continue IV fluids -Keep patient nothing by mouth for now -Consult medicine for medical management -Add IV Protonix for GI prophylaxis -DVT prophylaxis SCDs Physician Education Professor note has been reviewed by physician. Signing provider agrees with the documented findings, assessment, and plan of care. Past Medical History Past Medical History: Asthma, Fibromyalgia, GERD/Reflux, Musculoskeletal Disorder, Sleep Apnea/CPAP/BIPAP, Thyroid Disorder Additional Past Medical History / Comment(s): Hx Migraines, DDD , IBS, NO CPAP used. HX PERFORATED DIVERTICULITIS W/ PAST Colostomy 12/2017. History of Any Multi-Drug Resistant Organisms: None Reported Past Surgical History: Bowel Resection, Breast Surgery, Cholecystectomy, Hernia Repair Additional Past Surgical History / Comment(s): Dental, Rt Breast biopsy. Colostomy 12/2017, THEN Reversal 02/2018. Cholecystectomy - 08-12-18 Past Anesthesia/Blood Transfusion Reactions: No Reported Reaction Past Psychological History: Anxiety, Bipolar, Depression Additional Psychological History / Comment(s): eating disorder-binge eater Smoking Status: Never smoker Past Alcohol Use History: Occasional Past Drug Use History: None Reported - Past Family History Mother History Unknown: Yes Family Medical History: COPD Additional Family Medical History / Comment(s): depression, anxiety Brother(s) Family Medical History: Diabetes Mellitus Medications and Allergies Home Medications Medication Instructions Recorded Confirmed Type Levothyroxine Sodium [Synthroid] 50 mcg PO DAILY 05/05/14 04/21/20 History traZODone HCL [Desyrel] 100 mg PO HS 04/04/15 04/21/20 History Meloxicam [Mobic] 15 mg PO DAILY 12/31/16 04/21/20 History Topiramate [Trokendi Xr] 200 mg PO DAILY 07/19/17 04/21/20 History Venlafaxine HCl [Effexor XR] 225 mg PO HS 07/19/17 04/21/20 History HYDROcodone/APAP 7.5-325MG [[place] 1 tab PO BID PRN 03/01/18 04/21/20 History 7.5-325] rOPINIRole HCL [Requip] 0.5 mg PO HS 01/23/19 04/21/20 History Famotidine [Pepcid] 40 mg PO DAILY 07/28/19 04/21/20 History Cetirizine HCl [Zyrtec] 10 mg PO DAILY 08/30/19 04/21/20 History Erenumab-Aooe [Aimovig 140 mg SQ Q28D 08/30/19 04/21/20 History Autoinjector] Pregabalin [Lyrica] 150 mg PO BID 08/30/19 04/21/20 History ARIPiprazole [Abilify] 2 mg PO HS 08/31/19 04/21/20 History Albuterol Sulfate [Proventil Hfa] 1 puff INHALATION RT-Q4H PRN 04/21/20 04/21/20 History [place] Fe 1.5-30 1 tab PO HS 04/21/20 04/21/20 History Allergies Allergy/AdvReac Type Severity Reaction Status Date / Time tramadol Allergy Hallucinati Verified 04/21/20 18:14 ons valacyclovir HCl AdvReac BLURRED Verified 04/21/20 18:14 [From Valtrex] VISION Surgical - Exam Vital Signs Temp Pulse Resp BP Pulse Ox 98.2 F 105 H 18 126/86 99 04/21/20 14:16 04/21/20 14:16 04/21/20 14:16 04/21/20 14:16 04/21/20 14:16 Results - Labs 04/22/20 07:02 04/22/20 07:02 Abnormal Lab Results - Last 24 Hours (Table) 04/21/20 04/21/20 04/21/20 Range/Units 15:27 15:27 15:27 WBC 12.3 H (3.8-10.6) k/uL Hgb (11.4-16.0) gm/dL MCHC (31.0-37.0) g/dL Neutrophils # 8.8 H (1.3-7.7) k/uL Chloride 109 H (98-107) mmol/L BUN 21 H (7-17) mg/dL Glucose (74-99) mg/dL Calcium (8.4-10.2) mg/dL Urine Appearance Cloudy H (Clear) Urine Protein Trace H (Negative) Ur Leukocyte Esterase Large H (Negative) Urine WBC 6 H (0-5) /hpf Ur Squamous Epith Cells 14 H (0-4) /hpf Urine Bacteria Many H (None) /hpf Urine Mucus Moderate H (None) /hpf 04/22/20 04/22/20 Range/Units 07:02 07:02 WBC (3.8-10.6) k/uL Hgb 11.3 L (11.4-16.0) gm/dL MCHC 30.9 L (31.0-37.0) g/dL Neutrophils # (1.3-7.7) k/uL Chloride 113 H (98-107) mmol/L BUN 22 H (7-17) mg/dL Glucose 106 H (74-99) mg/dL Calcium 8.3 L (8.4-10.2) mg/dL Urine Appearance (Clear) Urine Protein (Negative) Ur Leukocyte Esterase (Negative) Urine WBC (0-5) /hpf Ur Squamous Epith Cells (0-4) /hpf Urine Bacteria (None) /hpf Urine Mucus (None) /hpf Diabetes panel 04/21/20 04/22/20 Range/Units 15:27 07:02 Sodium 138 139 (137-145) mmol/L Potassium 4.1 4.4 (3.5-5.1) mmol/L Chloride 109 H 113 H (98-107) mmol/L Carbon Dioxide 24 22 (22-30) mmol/L BUN 21 H 22 H (7-17) mg/dL Creatinine 0.89 0.86 (0.52-1.04) mg/dL Glucose 88 106 H (74-99) mg/dL Calcium 9.1 8.3 L (8.4-10.2) mg/dL AST 30 (14-36) U/L ALT 25 (4-34) U/L Alkaline Phosphatase 74 (38-126) U/L Total Protein 7.4 (6.3-8.2) g/dL Albumin 4.0 (3.5-5.0) g/dL Calcium panel 04/21/20 04/22/20 Range/Units 15:27 07:02 Calcium 9.1 8.3 L (8.4-10.2) mg/dL Albumin 4.0 (3.5-5.0) g/dL Pituitary panel 04/21/20 04/22/20 Range/Units 15:27 07:02 Sodium 138 139 (137-145) mmol/L Potassium 4.1 4.4 (3.5-5.1) mmol/L Chloride 109 H 113 H (98-107) mmol/L Carbon Dioxide 24 22 (22-30) mmol/L BUN 21 H 22 H (7-17) mg/dL Creatinine 0.89 0.86 (0.52-1.04) mg/dL Glucose 88 106 H (74-99) mg/dL Calcium 9.1 8.3 L (8.4-10.2) mg/dL Adrenal panel 04/21/20 04/22/20 Range/Units 15:27 07:02 Sodium 138 139 (137-145) mmol/L Potassium 4.1 4.4 (3.5-5.1) mmol/L Chloride 109 H 113 H (98-107) mmol/L Carbon Dioxide 24 22 (22-30) mmol/L BUN 21 H 22 H (7-17) mg/dL Creatinine 0.89 0.86 (0.52-1.04) mg/dL Glucose 88 106 H (74-99) mg/dL Calcium 9.1 8.3 L (8.4-10.2) mg/dL Total Bilirubin 0.3 (0.2-1.3) mg/dL AST 30 (14-36) U/L ALT 25 (4-34) U/L Alkaline Phosphatase 74 (38-126) U/L Total Protein 7.4 (6.3-8.2) g/dL Albumin 4.0 (3.5-5.0) g/dL
[2020-04-22] MEDS ORDERED: HYDROcodone/APAP 7.5-325MG 1 EACH TAB PO PRN (12:33)
[2020-04-22] MEDS: PREGABALIN 75 MG CAP PO SCH ×2 (13:41→21:20)
[2020-04-22] MEDS: FAMOTIDINE 20 MG TAB PO SCH (13:41)
[2020-04-22] MEDS: LEVOTHYROXINE 50 MCG TAB PO SCH (13:41)
[2020-04-22] MEDS: LORATADINE 10 MG TAB PO SCH (13:42)
[2020-04-22] MEDS: MELOXICAM 7.5 MG TAB PO SCH (13:43)
[2020-04-22] MEDS: TOPIRAMATE 100 MG TAB PO SCH ×2 (13:44→21:20)
[2020-04-22] MEDS: PANTOPRAZOLE 40 MG/10 ML VIAL IVP SCH (13:49)
[2020-04-22] MEDS ORDERED: traZODone HCL 100 MG TAB PO SCH (21:00)
[2020-04-22] MEDS ORDERED: ARIPiprazole 2 MG TAB PO SCH (21:00)
[2020-04-22] MEDS ORDERED: VENLAFAXINE HCL ER 75 MG CAP PO SCH (21:00)
--- NOTE | 2020-04-22 23:05 | P.CONS ---
History of Present Illness - Reason for Consult Consult date: 04/22/20 Medical management Requesting physician: Brayan Meadows - Chief Complaint Abdominal pain - History of Present Illness Consultation: This is a very pleasant 34-year-old patient of Dr. Edgardo Inman. Chronic stable medical conditions include asthma, fibromyalgia, GERD, obstructive sleep apnea does not use a CPAP, hypothyroid. Patient has rather extensive medical history. Patient had a perforated diverticulitis with a colostomy in December 2017. Then a reversal February 2018. Had a cholecystectomy in August 2018. Also had incisional hernia repair earlier this year. Yesterday when she was putting up a [place] tree when she suddenly noticed sharp right lower quadrant pain. Associated nausea. No fever no chills. There is no change in bowel movement. Pain has been present since then. Denies any obvious urinary symptoms. No change in her bowel habit. Computed tomography scan is showing some hematoma. Review of systems: GEN.: None EYES: None HEENT: None NECK: None RESPIRATORY: None CARDIOVASCULAR: None GASTROINTESTINAL: As above GENITOURINARY: None MUSCULOSKELETAL: Joint or muscle pains LYMPHATICS: None HEMATOLOGICAL: None PSYCHIATRY: None NEUROLOGICAL: None Past medical history to include: Asthma, fibromyalgia, GERD, SLEEP apnea does not use CPAP, irritable bowel syndrome, hypothyroid migraines perforated diverticulum with colostomy that was reversed, bipolar disorder Social history: Does not smoke or drink alcohol. Lives with her boyfriend. Works at the [employer] at [employer] Physical examination: VITAL SIGNS: 98, 62, 16, 103/68, 98% on room air GENERAL: BMI 46, laying in bed, not in distress. EYES: Pupils equal. Conjunctiva normal. HEENT: External appearance of nose and ears normal, oral cavity grossly normal. NECK: JVD not raised; masses not palpable. HEART: First and second heart sounds are normal; no edema. LUNGS: Respiratory rate normal; clear to auscultation. ABDOMEN: Soft, right lower quadrant tenderness, no guarding rigidity, liver spleen not palpable, no masses palpable. PSYCH: Alert and oriented x3; mood and affect slightly anxiousl. NEUROLOGICAL: Cranial nerves grossly intact; no facial asymmetry, power and sensation grossly intact. LYMPHATICS: No lymph nodes palpable in the axilla and neck INVESTIGATIONS, reviewed in the clinical context: White count 12.3 hemoglobin 12.1 platelets 387 potassium 4.1 creatinine 0.89 UA positive for leukoesterase, WBC, squamous epithelial cells Computed tomography scan of the abdomen-soft. His fluid over the anterior abdominal wall consistent with hematoma. Assessment: -Patient presents with sudden onset of right lower quadrant pain with no fever or chills. Computed tomography scan showing some abdominal wall hematoma, patient had a small vessel bleed. No change in bowel habit. Or could be muscular skeletal. -Acute UTI with cystitis -Intermittent asthma -Chronic fibromyalgia -GERD -Obstructive sleep apnea does not use a CPAP machine -Irritable bowel syndrome -Hypothyroid -Morbid obesity BMI 46 Plan: Patient's home medications resumed. Patient diet has been advanced by surgery. Use local heating pad. Activity as tolerated. Empirically has been put on IV Zosyn. That also cover for UTI. Repeat CBC in the morning. Thank you Dr. Meadows Past Medical History Past Medical History: Asthma, Fibromyalgia, GERD/Reflux, Musculoskeletal Disorder, Sleep Apnea/CPAP/BIPAP, Thyroid Disorder Additional Past Medical History / Comment(s): Hx Migraines, DDD , IBS, NO CPAP u sed. HX PERFORATED DIVERTICULITIS W/ PAST Colostomy 12/2017. History of Any Multi-Drug Resistant Organisms: None Reported Past Surgical History: Bowel Resection, Breast Surgery, Cholecystectomy, Hernia Repair Additional Past Surgical History / Comment(s): Dental, Rt Breast biopsy. Colostomy 12/2017, THEN Reversal 02/2018. Cholecystectomy - 08-12-18 Past Anesthesia/Blood Transfusion Reactions: No Reported Reaction Past Psychological History: Anxiety, Bipolar, Depression Additional Psychological History / Comment(s): eating disorder-binge eater Smoking Status: Never smoker Past Alcohol Use History: Occasional Past Drug Use History: None Reported - Past Family History Mother History Unknown: Yes Family Medical History: COPD Additional Family Medical History / Comment(s): depression, anxiety Brother(s) Family Medical History: Diabetes Mellitus Medications and Allergies Home Medications Medication Instructions Recorded Confirmed Type Levothyroxine Sodium [Synthroid] 50 mcg PO DAILY 05/05/14 04/21/20 History traZODone HCL [Desyrel] 100 mg PO HS 04/04/15 04/21/20 History Meloxicam [Mobic] 15 mg PO DAILY 12/31/16 04/21/20 History Topiramate [Trokendi Xr] 200 mg PO DAILY 07/19/17 04/21/20 History Venlafaxine HCl [Effexor XR] 225 mg PO HS 07/19/17 04/21/20 History HYDROcodone/APAP 7.5-325MG [[place] 1 tab PO BID PRN 03/01/18 04/21/20 History 7.5-325] rOPINIRole HCL [Requip] 0.5 mg PO HS 01/23/19 04/21/20 History Famotidine [Pepcid] 40 mg PO DAILY 07/28/19 04/21/20 History Cetirizine HCl [Zyrtec] 10 mg PO DAILY 08/30/19 04/21/20 History Erenumab-Aooe [Aimovig 140 mg SQ Q28D 08/30/19 04/21/20 History Autoinjector] Pregabalin [Lyrica] 150 mg PO BID 08/30/19 04/21/20 History ARIPiprazole [Abilify] 2 mg PO HS 08/31/19 04/21/20 History Albuterol Sulfate [Proventil Hfa] 1 puff INHALATION RT-Q4H PRN 04/21/20 04/21/20 History [place] Fe 1.5-30 1 tab PO HS 04/21/20 04/21/20 History Allergies Allergy/AdvReac Type Severity Reaction Status Date / Time tramadol Allergy Hallucinati Verified 04/21/20 18:14 ons valacyclovir HCl AdvReac BLURRED Verified 04/21/20 18:14 [From Valtrex] VISION Physical Exam Vitals: Vital Signs Temp Pulse Pulse Resp BP BP Pulse Ox 04/22/20 08:40 98.0 F 62 16 103/68 98 04/22/20 01:42 98 F 75 18 110/69 96 04/21/20 20:06 98.3 F 82 18 122/68 99 04/21/20 18:16 98.1 F 79 16 143/93 100 04/21/20 17:52 98.0 F 99 18 122/78 99 04/21/20 14:16 98.2 F 105 H 18 126/86 99 Intake and Output 04/21/20 04/22/20 04/22/20 22:59 06:59 14:59 Other: # Voids 2 Weight 133.2 kg Results CBC & Chem 7: 04/22/20 07:02 04/22/20 07:02 Labs: Abnormal Lab Results - Last 24 Hours (Table) 04/21/20 04/21/20 04/21/20 Range/Units 15:27 15:27 15:27 WBC 12.3 H (3.8-10.6) k/uL Hgb (11.4-16.0) gm/dL MCHC (31.0-37.0) g/dL Neutrophils # 8.8 H (1.3-7.7) k/uL Chloride 109 H (98-107) mmol/L BUN 21 H (7-17) mg/dL Glucose (74-99) mg/dL Calcium (8.4-10.2) mg/dL Urine Appearance Cloudy H (Clear) Urine Protein Trace H (Negative) Ur Leukocyte Esterase Large H (Negative) Urine WBC 6 H (0-5) /hpf Ur Squamous Epith Cells 14 H (0-4) /hpf Urine Bacteria Many H (None) /hpf Urine Mucus Moderate H (None) /hpf 04/22/20 04/22/20 Range/Units 07:02 07:02 WBC (3.8-10.6) k/uL Hgb 11.3 L (11.4-16.0) gm/dL MCHC 30.9 L (31.0-37.0) g/dL Neutrophils # (1.3-7.7) k/uL Chloride 113 H (98-107) mmol/L BUN 22 H (7-17) mg/dL Glucose 106 H (74-99) mg/dL Calcium 8.3 L (8.4-10.2) mg/dL Urine Appearance (Clear) Urine Protein (Negative) Ur Leukocyte Esterase (Negative) Urine WBC (0-5) /hpf Ur Squamous Epith Cells (0-4) /hpf Urine Bacteria (None) /hpf Urine Mucus (None) /hpf
[2020-04-23] MEDS: SODIUM CHLORIDE 0.9% 1,000 ML IV SCH ×2 (00:10→03:21)
[2020-04-23] MEDS: LEVOTHYROXINE 50 MCG TAB PO SCH (06:18)
[2020-04-23 08:11] LABS: Basophils # (A) 0.1 k/uL (0-0.2); Basophils % (A) 1 %; Eosinophils # (A) 0.3 k/uL (0-0.7); Eosinophils % (A) 4 %; HCT 36.8 % (34.0-46.0); HGB 11.3 gm/dL (11.4-16.0); Hypochromasia Moderate; Lymphocytes # (A) 2.3 k/uL (1.0-4.8); Lymphocytes % (A) 33 %; MCH 25.3 pg (25.0-35.0); MCHC 30.7 g/dL (31.0-37.0); MCV 82.4 fL (80.0-100.0); Mean Platelet Volume 7.3; Monocytes # (A) 0.3 k/uL (0-1.0); Monocytes % (A) 4 %; Neutrophils % (A) 56 %; Platelet Count 349 k/uL (150-450); RBC 4.46 m/uL (3.80-5.40); RDW 15.2 % (11.5-15.5); WBC 7.1 k/uL (3.8-10.6)
[2020-04-23] MEDS: PIPERACILLIN-TAZOBACTAM 3.375 GM in SODIUM CHLORIDE 0.9% 100 ML IVPB SCH (08:34)
[2020-04-23 09:09] LABS: African American GFR (CKD) >90 (>60 ml/min/1.73 sqM); Anion Gap 5 mmol/L; Blood Urea Nitrogen 20 mg/dL (7-17); Calcium 8.4 mg/dL (8.4-10.2); Carbon Dioxide 21 mmol/L (22-30); Chloride 115 mmol/L (98-107); Glucose 112 mg/dL (74-99); Non-African American GFR(CKD) 80 (>60 ml/min/1.73 sqM); Potassium 4.1 mmol/L (3.5-5.1); Sodium 141 mmol/L (137-145)
[2020-04-23] MEDS: FAMOTIDINE 20 MG TAB PO SCH (09:38)
[2020-04-23] MEDS: TOPIRAMATE 100 MG TAB PO SCH (09:41)
[2020-04-23] MEDS: MELOXICAM 7.5 MG TAB PO SCH (09:41)
[2020-04-23] MEDS: PANTOPRAZOLE 40 MG/10 ML VIAL IVP SCH (09:41)
[2020-04-23] MEDS: LORATADINE 10 MG TAB PO SCH (09:41)
[2020-04-23] MEDS: PREGABALIN 75 MG CAP PO SCH (09:41)
--- NOTE | 2020-04-23 12:59 | P.DS ---
Providers Date of admission: 04/21/20 18:16 Expected date of discharge: 04/23/20 Attending physician: Brayan Meadows Consults: 04/22/20 08:27 Consult Physician Routine Consulting Provider: Malick Fontenot Consult Reason/Comments: medical management Do you want consulting provider notified?: Yes Primary care physician: Edgardo Orozco [facility] Course: Discharge diagnosis 1. Right lower quadrant Abdominal pain secondary to abdominal hematoma 2. Possible cystitis Hospital course This is a 34-year-old female with a known past medical history of multiple abdominal surgeries including bowel resection with colostomy and reversal for a perforated right diverticulitis, cholecystectomy and incisional hernia repair. In August 2019 patient underwent incision and drainage of infected seroma with removal of mesh from her hernia. She did have to have wound VAC placed at that time. Patient had been in good health and then yesterday had sharp right lower quadrant abdominal pain. Pain continued to increase. Therefore she came into the ER for further evaluation. She admits to having nausea no vomiting. No change in bowel habits. Computed tomography scan of the abdomen and pelvis with contrast shows subcutaneous fluid over the anterior abdomen consistent with hematoma this appears increased compared to old CT scan. No acute abnormality within the abdomen and pelvis. Normal appendix. She was treated conservatively. Hemoglobin remained stable. She tolerated regular diet. She has been up and ambulating. Her pain is controlled. Patient is stable for discharge. Please refer to chart for any further details. Physician Paster [place] note has been reviewed by physician. Signing provider agrees with the documented findings, assessment, and plan of care. Patient Condition at Discharge: Stable Plan - Discharge Summary New Discharge Prescriptions: New Amoxicillin/Potassium Clav [Augmentin 875-125 Tablet] 1 tab PO Q12HR 5 Days #10 tab Continue Levothyroxine Sodium [Synthroid] 50 mcg PO DAILY traZODone HCL [Desyrel] 100 mg PO HS Venlafaxine HCl [Effexor XR] 225 mg PO HS Topiramate [Trokendi Xr] 200 mg PO DAILY HYDROcodone/APAP 7.5-325MG [[place] 7.5-325] 1 tab PO BID PRN PRN Reason: Pain rOPINIRole HCL [Requip] 0.5 mg PO HS Famotidine [Pepcid] 40 mg PO DAILY Erenumab-Aooe [Aimovig Autoinjector] 140 mg SQ Q28D Cetirizine HCl [Zyrtec] 10 mg PO DAILY Pregabalin [Lyrica] 150 mg PO BID ARIPiprazole [Abilify] 2 mg PO HS [place] 1.5-30 1 tab PO HS Albuterol Sulfate [Proventil Hfa] 1 puff INHALATION RT-Q4H PRN PRN Reason: Shortness Of Breath Discontinued Meloxicam [Mobic] 15 mg PO DAILY Discharge Medication List Levothyroxine Sodium [Synthroid] 50 mcg PO DAILY 05/05/14 [History] traZODone HCL [Desyrel] 100 mg PO HS 04/04/15 [History] Topiramate [Trokendi Xr] 200 mg PO DAILY 07/19/17 [History] Venlafaxine HCl [Effexor XR] 225 mg PO HS 07/19/17 [History] HYDROcodone/APAP 7.5-325MG [[place] 7.5-325] 1 tab PO BID PRN 03/01/18 [History] rOPINIRole HCL [Requip] 0.5 mg PO HS 01/23/19 [History] Famotidine [Pepcid] 40 mg PO DAILY 07/28/19 [History] Cetirizine HCl [Zyrtec] 10 mg PO DAILY 08/30/19 [History] Erenumab-Aooe [Aimovig Autoinjector] 140 mg SQ Q28D 08/30/19 [History] Pregabalin [Lyrica] 150 mg PO BID 08/30/19 [History] ARIPiprazole [Abilify] 2 mg PO HS 08/31/19 [History] Albuterol Sulfate [Proventil Hfa] 1 puff INHALATION RT-Q4H PRN 04/21/20 [H istory] [place] 1.5-30 1 tab PO HS 04/21/20 [History] Amoxicillin/Potassium Clav [Augmentin 875-125 Tablet] 1 tab PO Q12HR 5 Days #10 tab 04/23/20 [Rx] Follow up Appointment(s)/Referral(s): Edgardo Inman MD [Primary Care Provider] - 1-2 days Brayan Meadows MD [STAFF PHYSICIAN] - 1 Week Activity/Diet/Wound Care/Special Instructions: Diet Regular Activity as tolerated Discharge Disposition: HOME SELF-CARE
[2020-04-23 13:55] VITALS: BP 102/69; PULSE 78; RESP 20; TEMP 98.1
--- NOTE | 2020-04-24 16:58 | P.PN ---
Progress Note - Text Progress Note Date: 04/23/20 - Chief Complaint Abdominal pain - History of Present Illness Consultation: This is a very pleasant 34-year-old patient of Dr. Edgardo Inman. Chronic stable medical conditions include asthma, fibromyalgia, GERD, obstructive sleep apnea does not use a CPAP, hypothyroid. Patient has rather extensive medical history. Patient had a perforated diverticulitis with a colostomy in December 2017. Then a reversal February 2018. Had a cholecystectomy in August 2018. Also had incisional hernia repair earlier this year. Yesterday when she was putting up a [place] tree when she suddenly noticed sharp right lower quadrant pain. Associated nausea. No fever no chills. There is no change in bowel movement. Pain has been present since then. Denies any obvious urinary symptoms. No change in her bowel habit. Computed tomography scan is showing some hematoma. Today-patient doing much better. Feeling well. He received antibiotics for the UTI and cystitis. Right lower quadrant pain could be muscular skeletal. Improved. Oral intake is good. Discussed with patient. Ambulating. Review of systems: Was done for constitutional, cardiovascular, GI, pulmonary. relevant finding as above Current medications reviewed in today's electronic records Physical examination: VITAL SIGNS: 98.1, 78, 20, 102/69, 96% room air GENERAL: Propped up in bed, comfortable. EYES: Pupils equal. Conjunctiva normal. NECK: JVD not raised; masses not palpable. HEART: First and second heart sounds are normal; no edema. LUNGS: Respiratory rate normal; clear to auscultation. ABDOMEN: Soft, minimal right lower quadrant tenderness, no guarding rigidity, liver spleen not palpable, no masses palpable. PSYCH: Alert and oriented x3; mood and affect normal. INVESTIGATIONS, reviewed in the clinical context: April 23: White count 7.1 hemoglobin 11.3 potassium 4.1 creatinine 0.93 White count 12.3 hemoglobin 12.1 platelets 387 potassium 4.1 creatinine 0.89 UA positive for leukoesterase, WBC, squamous epithelial cells Computed tomography scan of the abdomen-soft. His fluid over the anterior abdominal wall consistent with hematoma. Assessment: -Right lower quadrant pain, likely muscular -Acute UTI with cystitis -Intermittent asthma -Chronic fibromyalgia -GERD -Obstructive sleep apnea does not use a CPAP machine -Irritable bowel syndrome -Hypothyroid -Morbid obesity BMI 46 Plan: Patient to get Augmentin for another 5 days. Care was discussed in detail with the patient. Questions answered. Follow-up with PCP. Thank you Dr. Meadows
== END 2020-04-23 14:10 | disposition home or self-care (01) ==
LOC: EC 14:06 → 6PED 18:16
PROVIDERS: ADMIT Surgery; ATTEND Surgery
DX: S30.1XXA Contusion of abdominal wall, initial encounter (principal); M79.7 Fibromyalgia; K21.9 Gastro-esophageal reflux disease without esophagitis; G47.33 Obstructive sleep apnea (adult) (pediatric); E03.9 Hypothyroidism, unspecified; Z93.3 Colostomy status; J45.20 Mild intermittent asthma, uncomplicated; K58.9 Irritable bowel syndrome, unspecified; E66.01 Morbid (severe) obesity due to excess calories; Z68.42 Body mass index [BMI] 45.0-49.9, adult; N39.0 Urinary tract infection, site not specified; G43.909 Migraine, unspecified, not intractable, without status migrainosus; F31.9 Bipolar disorder, unspecified; F41.9 Anxiety disorder, unspecified; Z90.49 Acquired absence of other specified parts of digestive tract; Z87.19 Personal history of other diseases of the digestive system; Z86.59 Personal history of other mental and behavioral disorders; Z79.890 Hormone replacement therapy; Z79.1 Long term (current) use of non-steroidal anti-inflammatories (NSAID); Z79.891 Long term (current) use of opiate analgesic; Z79.899 Other long term (current) drug therapy; Z88.8 Allergy status to other drugs, medicaments and biological substances; Z88.5 Allergy status to narcotic agent; Z81.8 Family history of other mental and behavioral disorders; Z82.5 Family history of asthma and other chronic lower respiratory diseases; Z83.3 Family history of diabetes mellitus
CPT/HCPCS: 96361; 96365; 96366 ×2; 96375 ×2; 96376 ×3; 99285; 36415; 80053; 80048 ×2; 83605; 83690; 85025 ×3; 85610; 85730; 81001; 81025; 74177; G0378 ×3; J2543 ×3; J2270 ×2; J2765; J0696; C9113 ×2; Q9967

== ENCOUNTER 2020-04-26 17:05 | Inpatient (IN) | payer OTHER ==
[2020-04-26] MEDS ORDERED: SODIUM CHLORIDE 0.9% 1,000 ML IV STA (17:40)
[2020-04-26] MEDS ORDERED: HYDROmorphone 0.5 MG/0.5 ML SYRINGE IVP STA ×2 (17:40→18:53)
--- NOTE | 2020-04-26 17:44 | ED ---
General Adult HPI - General Chief complaint: Abdominal Pain Stated complaint: Abd pain Time Seen by Provider: 04/26/20 17:12 Source: family, RN notes reviewed Mode of arrival: wheelchair Limitations: physical limitation - History of Present Illness Initial comments: 34-year-old female with a past medical history of asthma, perforated diverticulitis, fibromyalgia, GERD presents to the emergency room for abdominal pain. Patient reports that she was recently released from the hospital about a week ago. At that time she was found to have a hematoma of the abdomen. Patient reports that she was treated with pain medication and this did improve. However pain has worsened the past few days. She reports that she called her surgeon's office who sent her to the emergency room. States the pain is on the right lower side extending into the upper abdomen. She denies fevers or chills.Patient has no other complaints at this time including shortness of breath, chest pain, nausea or vomiting, headache, or visual changes. - Related Data Home Medications Medication Instructions Recorded Confirmed Levothyroxine Sodium [Synthroid] 50 mcg PO DAILY 05/05/14 04/21/20 traZODone HCL [Desyrel] 100 mg PO HS 04/04/15 04/21/20 Topiramate [Trokendi Xr] 200 mg PO DAILY 07/19/17 04/21/20 Venlafaxine HCl [Effexor XR] 225 mg PO HS 07/19/17 04/21/20 HYDROcodone/APAP 7.5-325MG [[place] 1 tab PO BID PRN 03/01/18 04/21/20 7.5-325] rOPINIRole HCL [Requip] 0.5 mg PO HS 01/23/19 04/21/20 Famotidine [Pepcid] 40 mg PO DAILY 07/28/19 04/21/20 Cetirizine HCl [Zyrtec] 10 mg PO DAILY 08/30/19 04/21/20 Erenumab-Aooe [Aimovig 140 mg SQ Q28D 08/30/19 04/21/20 Autoinjector] Pregabalin [Lyrica] 150 mg PO BID 08/30/19 04/21/20 ARIPiprazole [Abilify] 2 mg PO HS 08/31/19 04/21/20 Albuterol Sulfate [Proventil Hfa] 1 puff INHALATION RT-Q4H PRN 04/21/20 04/21/20 [place] 1.5-30 1 tab PO HS 04/21/20 04/21/20 Magnesium Gummies (165mg) 2 tab PO DAILY 04/26/20 04/26/20 Meloxicam [Mobic] 15 mg PO DAILY 04/26/20 04/26/20 Previous Rx's Medication Instructions Recorded Amoxicillin/Potassium Clav 1 tab PO Q12HR 5 Days #10 tab 04/23/20 [Augmentin 875-125 Tablet] Allergies Allergy/AdvReac Type Severity Reaction Status Date / Time tramadol Allergy Hallucinati Verified 04/26/20 20:01 ons valacyclovir HCl AdvReac BLURRED Verified 04/26/20 20:01 [From Valtrex] VISION Review of Systems ROS Statement: Those systems with pertinent positive or pertinent negative responses have been documented in the HPI. ROS Other: All systems not noted in ROS Statement are negative. Past Medical History Past Medical History: Asthma, Fibromyalgia, GERD/Reflux, Musculoskeletal Disorder, Sleep Apnea/CPAP/BIPAP, Thyroid Disorder Additional Past Medical History / Comment(s): Hx Migraines, DDD , IBS, NO CPAP used. HX PERFORATED DIVERTICULITIS W/ PAST Colostomy 12/2017. internal abd hematoma History of Any Multi-Drug Resistant Organisms: None Reported Past Surgical History: Bowel Resection, Breast Surgery, Cholecystectomy, Hernia Repair Additional Past Surgical History / Comment(s): Dental, Rt Breast biopsy. Colostomy 12/2017, THEN Reversal 02/2018. Cholecystectomy - 4--19 Past Anesthesia/Blood Transfusion Reactions: No Reported Reaction Past Psychological History: Anxiety, Bipolar, Depression Smoking Status: Never smoker Past Alcohol Use History: Occasional Past Drug Use History: None Reported - Past Family History Mother History Unknown: Yes Family Medical History: COPD Additional Family Medical History / Comment(s): depression, anxiety Brother(s) Family Medical History: Diabetes Mellitus General Exam Limitations: physical limitation General appearance: alert, in no apparent distress Head exam: Present: atraumatic, normocephalic, normal inspection Eye exam: Present: normal appearance, PERRL, EOMI. Absent: scleral icterus, conjunctival injection, periorbital swelling ENT exam: Present: normal exam, mucous membranes moist Neck exam: Present: normal inspection, full ROM. Absent: tenderness, meningismus, lymphadenopathy Respiratory exam: Present: normal lung sounds bilaterally. Absent: respiratory distress, wheezes, rales, rhonchi, stridor Cardiovascular Exam: Present: regular rate, normal rhythm, normal heart sounds. Absent: bradycardia, tachycardia, irregular rhythm GI/Abdominal exam: Present: soft, tenderness (Right-sided abdominal tenderness worse in the lower abdomen. No left abdominal tenderness.), normal bowel sounds. Absent: distended, guarding, rebound, rigid Course Vital Signs 04/26/20 17:06 Temperature 98.6 F Pulse Rate 79 Respiratory 18 Rate Blood Pressure 144/89 O2 Sat by Pulse 100 Oximetry Medical Decision Making - Medical Decision Making In August patient did have an incision and drainage of infected seroma and removal of mesh from her hernia where wound VAC was placed at that time. CT abdomen and pelvis was reviewed from January 20 which shows subcutaneous fluid over the anterior abdomen consistent with hematoma that appears increased compared to old computed tomography scan from August. Patient did have a wound VAC placed. Vitals are stable. Abdomen does have some tenderness noted especially right lower quadrant. CBC shows leukocytosis of 13.1. CMP generally unremarkable, there is some evidence of dehydration and patient was given fluids. At this point Dr. Meadows was consulted who recommends repeat computed tomography scan and admission with IV antibiotics and pain medication. CT abdomen and pelvis with contrast shows stable appearance of suspected subcutaneous hematoma along the anterior and left anterior abdominal wall. Patient's pain did improve with anti-analgesics. She is agreeable to admission. - Lab Data Result diagrams: 04/26/20 17:46 04/26/20 17:46 Lab Results 04/26/20 04/26/20 04/26/20 Range/Units 17:46 17:46 17:46 WBC 13.1 H (3.8-10.6) k/uL RBC 4.73 (3.80-5.40) m/uL Hgb 12.1 (11.4-16.0) gm/dL Hct 38.3 (34.0-46.0) % MCV 81.0 (80.0-100.0) fL MCH 25.7 (25.0-35.0) pg MCHC 31.7 (31.0-37.0) g/dL RDW 15.0 (11.5-15.5) % Plt Count 358 (150-450) k/uL MPV 7.2 Neutrophils % 72 % Lymphocytes % 19 % Monocytes % 4 % Eosinophils % 2 % Basophils % 1 % Neutrophils # 9.5 H (1.3-7.7) k/uL Lymphocytes # 2.5 (1.0-4.8) k/uL Monocytes # 0.5 (0-1.0) k/uL Eosinophils # 0.3 (0-0.7) k/uL Basophils # 0.1 (0-0.2) k/uL Hypochromasia Slight Sodium 139 (137-145) mmol/L Potassium 4.2 (3.5-5.1) mmol/L Chloride 112 H (98-107) mmol/L Carbon Dioxide 21 L (22-30) mmol/L Anion Gap 6 mmol/L BUN 22 H (7-17) mg/dL Creatinine 0.96 (0.52-1.04) mg/dL Est GFR (CKD-EPI)AfAm 88 (>60 ml/min/1.73 sqM) Est GFR (CKD-EPI)NonAf 76 (>60 ml/min/1.73 sqM) Glucose 107 H (74-99) mg/dL Calcium 9.2 (8.4-10.2) mg/dL Total Bilirubin 0.4 (0.2-1.3) mg/dL AST 33 (14-36) U/L ALT 27 (4-34) U/L Alkaline Phosphatase 74 (38-126) U/L Total Protein 7.4 (6.3-8.2) g/dL Albumin 4.0 (3.5-5.0) g/dL Amylase 93 (30-110) U/L Lipase 326 H (23-300) U/L Urine Color Yellow Urine Appearance Cloudy H (Clear) Urine pH 6.5 (5.0-8.0) Ur Specific [place] 1.026 (1.001-1.035) Urine Protein Trace H (Negative) Urine Glucose (UA) Negative (Negative) Urine Ketones Negative (Negative) Urine Blood Trace H (Negative) Urine Nitrite Negative (Negative) Urine Bilirubin Negative (Negative) Urine Urobilinogen <2.0 (<2.0) mg/dL Ur Leukocyte Esterase Moderate H (Negative) Urine RBC 6 H (0-5) /hpf Urine WBC 4 (0-5) /hpf Ur Squamous Epith Cells 15 H (0-4) /hpf Urine Bacteria Rare H (None) /hpf Hyaline Casts 1 (0-2) /lpf Urine Mucus Moderate H (None) /hpf Urine HCG, Qual (Not Detectd) 04/26/20 Range/Units 17:46 WBC (3.8-10.6) k/uL RBC (3.80-5.40) m/uL Hgb (11.4-16.0) gm/dL Hct (34.0-46.0) % MCV (80.0-100.0) fL MCH (25.0-35.0) pg MCHC (31.0-37.0) g/dL RDW (11.5-15.5) % Plt Count (150-450) k/uL MPV Neutrophils % % Lymphocytes % % Monocytes % % Eosinophils % % Basophils % % Neutrophils # (1.3-7.7) k/uL Lymphocytes # (1.0-4.8) k/uL Monocytes # (0-1.0) k/uL Eosinophils # (0-0.7) k/uL Basophils # (0-0.2) k/uL Hypochromasia Sodium (137-145) mmol/L Potassium (3.5-5.1) mmol/L Chloride (98-107) mmol/L Carbon Dioxide (22-30) mmol/L Anion Gap mmol/L BUN (7-17) mg/dL Creatinine (0.52-1.04) mg/dL Est GFR (CKD-EPI)AfAm (>60 ml/min/1.73 sqM) Est GFR (CKD-EPI)NonAf (>60 ml/min/1.73 sqM) Glucose (74-99) mg/dL Calcium (8.4-10.2) mg/dL Total Bilirubin (0.2-1.3) mg/dL AST (14-36) U/L ALT (4-34) U/L Alkaline Phosphatase (38-126) U/L Total Protein (6.3-8.2) g/dL Albumin (3.5-5.0) g/dL Amylase (30-110) U/L Lipase (23-300) U/L Urine Color Urine Appearance (Clear) Urine pH (5.0-8.0) Ur Specific [place] (1.001-1.035) Urine Protein (Negative) Urine Glucose (UA) (Negative) Urine Ketones (Negative) Urine Blood (Negative) Urine Nitrite (Negative) Urine Bilirubin (Negative) Urine Urobilinogen (<2.0) mg/dL Ur Leukocyte Esterase (Negative) Urine RBC (0-5) /hpf Urine WBC (0-5) /hpf Ur Squamous Epith Cells (0-4) /hpf Urine Bacteria (None) /hpf Hyaline Casts (0-2) /lpf Urine Mucus (None) /hpf Urine HCG, Qual Not Detected (Not Detectd) Disposition Clinical Impression: Abdominal pain, Hematoma Disposition: ADMITTED IP TO THIS HOSP Is patient prescribed a controlled substance at d/c from ED?: No Referrals: Edgardo Inman MD [Primary Care Provider] - 1-2 days Time of Disposition: 20:06
[2020-04-26 17:54] LABS: Basophils # (A) 0.1 k/uL (0-0.2); Basophils % (A) 1 %; Eosinophils # (A) 0.3 k/uL (0-0.7); Eosinophils % (A) 2 %; HCT 38.3 % (34.0-46.0); HGB 12.1 gm/dL (11.4-16.0); Hypochromasia Slight; Lymphocytes # (A) 2.5 k/uL (1.0-4.8); Lymphocytes % (A) 19 %; MCH 25.7 pg (25.0-35.0); MCHC 31.7 g/dL (31.0-37.0); Mean Platelet Volume 7.2; Monocytes # (A) 0.5 k/uL (0-1.0); Monocytes % (A) 4 %; Neutrophils # (A) 9.5 k/uL (1.3-7.7); Neutrophils % (A) 72 %; Platelet Count 358 k/uL (150-450); RBC 4.73 m/uL (3.80-5.40); WBC 13.1 k/uL (3.8-10.6)
[2020-04-26 17:56] LABS: Appearance,Urine Cloudy (Clear); Bacteria,Urine Rare /hpf; Bilirubin,Urine Negative (Negative); Blood,Urine Trace (Negative); Color,Urine Yellow; Glucose,Urine (UA) Negative (Negative); Hyaline Casts,Urine 1 /lpf (0-2); Ketones,Urine Negative (Negative); Leukocyte Esterase,Urine Moderate (Negative); Mucus,Urine Moderate /hpf; Nitrite,Urine Negative (Negative); PH, Urine 6.5 (5.0-8.0); Protein,Urine Trace (Negative); RBC,Urine 6 /hpf (0-5); Specific Gravity,Urine 1.026 (1.001-1.035); Squamous Epithelial Cell,Urine 15 /hpf (0-4); Urobilinogen,Urine <2.0 mg/dL (<2.0); WBC,Urine 4 /hpf (0-5)
[2020-04-26 18:08] LABS: Calcium 9.2 mg/dL (8.4-10.2); Potassium 4.2 mmol/L (3.5-5.1); Total Bilirubin 0.4 mg/dL (0.2-1.3); Total Protein 7.4 g/dL (6.3-8.2)
--- NOTE | 2020-04-26 19:53 | CT ---
EXAMINATION TYPE: CT abdomen pelvis w con DATE OF EXAM: 04/26/2020 COMPARISON: 04/21/2020 INDICATION: abdominal pain, hx of diverticulitis DLP: 2339.3 mGycm, Automated exposure control for dose reduction was used. CONTRAST: 100 mL of Isovue 300. Study performed without Oral Contrast TECHNIQUE: Axial images were obtained from above the diaphragm to the pubic rami in the axial plane a t 5 mm thick sections. Reconstructed images are reviewed on the computer in the coronal plane. FINDINGS: Limited CT sections are obtained the lung bases. The lung bases are clear. CT ABDOMEN: The subcutaneous collection along the anterior and left frontal abdomen, likely related t o hemorrhage appears stable from comparison. Liver: Normal Spleen: Normal Pancreas: Normal Adrenal glands: The adrenal glands are normal. Gallbladder: Not identified Kidneys: No masses are evident. No hydronephrosis is present. No cysts are present. Delayed images were obtained through the kidneys, which remain unremarkable. Aorta: Normal Inferior vena cava: Normal. CT PELVIS: Loops of bowel within the abdomen and pelvis are normal. Study is without oral contrast limiting bowel evaluation Appendix: Normal as visualized. Urinary bladder: Normal. Genitourinary structures: Uterus appears normal. Adnexal regions are clear Osseous structures: No suspicious lytic or sclerotic lesions. IMPRESSIONS: 1. Stable appearance of suspected subcutaneous hematoma along the anterior and left anterior abdomin al wall
[2020-04-26] MEDS ORDERED: PIPERACILLIN-TAZOBACTAM 3.375 GM in SODIUM CHLORIDE 0.9% 100 ML IVPB STA (19:56)
[2020-04-26] MEDS ORDERED: NALOXONE 0.4 MG/ML 1 ML VIAL IV PRN (20:02)
[2020-04-26] MEDS ORDERED: ONDANSETRON 4 MG/2 ML VIAL IVP PRN (20:02)
[2020-04-26] MEDS: SODIUM CHLORIDE 0.9% 1,000 ML IV SCH (20:38)
[2020-04-26] MEDS: VENLAFAXINE HCL ER 75 MG CAP PO SCH (23:54)
[2020-04-26] MEDS: traZODone HCL 50 MG TAB PO SCH (23:54)
[2020-04-26] MEDS: PREGABALIN 75 MG CAP PO SCH (23:54)
[2020-04-26] MEDS: HYDROmorphone 0.5 MG/0.5 ML SYRINGE IVP PRN (23:54)
[2020-04-27] MEDS: BLISOVI FE PO SCH ×2 (00:01→21:28)
[2020-04-27] MEDS: PIPERACILLIN-TAZOBACTAM 3.375 GM in SODIUM CHLORIDE 0.9% 100 ML IVPB SCH ×3 (04:50→20:32)
[2020-04-27] MEDS: HYDROmorphone 0.5 MG/0.5 ML SYRINGE IVP PRN ×4 (05:07→20:33)
[2020-04-27] MEDS: SODIUM CHLORIDE 0.9% 1,000 ML IV SCH ×2 (06:28→20:03)
[2020-04-27] MEDS: LEVOTHYROXINE 50 MCG TAB PO SCH (06:28)
[2020-04-27 08:45] LABS: Basophils # (A) 0.1 k/uL (0-0.2); Basophils % (A) 1 %; Eosinophils # (A) 0.4 k/uL (0-0.7); Eosinophils % (A) 5 %; HCT 36.1 % (34.0-46.0); HGB 11.6 gm/dL (11.4-16.0); Hypochromasia Slight; Lymphocytes # (A) 2.3 k/uL (1.0-4.8); Lymphocytes % (A) 25 %; MCH 26.4 pg (25.0-35.0); MCV 82.3 fL (80.0-100.0); Mean Platelet Volume 7.1; Monocytes # (A) 0.4 k/uL (0-1.0); Monocytes % (A) 5 %; Neutrophils # (A) 5.8 k/uL (1.3-7.7); Neutrophils % (A) 64 %; Platelet Count 338 k/uL (150-450); RBC 4.39 m/uL (3.80-5.40); RDW 15.2 % (11.5-15.5); WBC 9.1 k/uL (3.8-10.6)
[2020-04-27 08:55] LABS: ALT 23 U/L (4-34); AST 24 U/L (14-36); African American GFR (CKD) >90 (>60 ml/min/1.73 sqM); Albumin 3.4 g/dL (3.5-5.0); Alkaline Phosphatase 55 U/L (38-126); Anion Gap 3 mmol/L; Blood Urea Nitrogen 22 mg/dL (7-17); Calcium 8.5 mg/dL (8.4-10.2); Carbon Dioxide 25 mmol/L (22-30); Chloride 113 mmol/L (98-107); Glucose 107 mg/dL (74-99); Non-African American GFR(CKD) 85 (>60 ml/min/1.73 sqM); Potassium 4.3 mmol/L (3.5-5.1); Sodium 141 mmol/L (137-145); Total Bilirubin 0.3 mg/dL (0.2-1.3); Total Protein 6.4 g/dL (6.3-8.2)
[2020-04-27] MEDS: FAMOTIDINE 20 MG TAB PO SCH (09:40)
[2020-04-27] MEDS: MAGNESIUM PO SCH (09:42)
[2020-04-27] MEDS: MELOXICAM 7.5 MG TAB PO SCH (09:42)
[2020-04-27] MEDS: LORATADINE 10 MG TAB PO SCH (09:42)
[2020-04-27] MEDS: PREGABALIN 75 MG CAP PO SCH ×2 (09:43→21:26)
[2020-04-27] MEDS: TOPIRAMATE 100 MG TAB PO SCH (09:43)
--- NOTE | 2020-04-27 13:00 | P.GSHP ---
History of Present Illness H&P Date: 04/27/20 CHIEF COMPLAINT: Abdominal pain HISTORY OF PRESENT ILLNESS: This is a 34-year-old female with a known history of multiple abdominal surgeries. She has had bowel resection with colostomy and reversal for perforated right diverticulitis, cholecystectomy and incisional hernia repair. In August 2019 patient underwent incision and drainage of infected seroma with removal of mesh from her hernia. She did have a wound VAC placed at that time. Patient was just recently hospitalized on 04/21/2024 a a bdominal hematoma that was treated conservatively. Patient reports her pain had been controlled at the time of discharge. However over the last couple a days she's had increased on abdominal pain on the right side of her abdomen. She reports that she had no improvement in the pain after taking to [place]. She therefore came into the emergency room for further evaluation and treatment. Computed tomography scan of the abdomen shows stable appearance of suspected subcutaneous hematoma along the anterior and left anterior abdominal wall. Patient denies any fever, chills or sweats. Denies any nausea or vomiting. Denies any urinary symptoms PAST MEDICAL HISTORY: See list. PAST SURGICAL HISTORY: See list. MEDICATIONS: See list. ALLERGIES: See list. SOCIAL HISTORY: No illicit drug use. REVIEW OF SYSTEMS: CONSTITUTIONAL: Denies fever or chills. HEENT: Denies blurred vision, vision changes, or eye pain. Denies hemoptysis CARDIOVASCULAR: Denies chest pain or pressure. RESPIRATORY: No shortness of breath. GASTROINTESTINAL: See HPI for pertinent findings HEMATOLOGIC: Denies bleeding disorders. GENITOURINARY: Denies any blood in urine or increased urinary frequency. SKIN: Denies pruitis. Denies rash. PHYSICAL EXAM: VITAL SIGNS: Reviewed GENERAL: Well-developed in no acute distress. HEENT: No sclera icterus. Extraocular movements grossly intact. Moist buccal mucosa. Head is atraumatic, normocephalic. No nasal drainage. ABDOMEN: Soft. Obese. Nondistended. Tenderness with palpation to right side of abdomen NEUROLOGIC: Alert and oriented. Cranial nerves II through XII grossly intact. LABORATORY DATA: WBC 13.1 Hgb 12.1 LFTs normal Lipase 326 IMAGING: Computed tomography scan of the abdomen shows stable appearance of suspected subcutaneous hematoma along the anterior and left anterior abdominal wall. ASSESSMENT: 1. Abdominal pain likely secondary to abdominal hematoma 2. History of multiple abdominal surgeries PLAN: -We will continue to observe -Treat conservatively -No plan for surgical intervention -Check abdominal ultrasound -Continue monitor hemoglobin -Advance diet to regular -Continue Dilaudid as needed -Consult medicine for medical management -GI prophylaxis Pepcid and DVT prophylaxis SCDs Physician Practice Management Consultant note has been reviewed by physician. Signing provider agrees with the documented findings, assessment, and plan of care. Past Medical History Past Medical History: Asthma, Fibromyalgia, GERD/Reflux, Musculoskeletal Disorder, Sleep Apnea/CPAP/BIPAP, Thyroid Disorder Additional Past Medical History / Comment(s): Hx Migraines, DDD , IBS, NO CPAP used. HX PERFORATED DIVERTICULITIS W/ PAST Colostomy 12/2017. internal abd hematoma History of Any Multi-Drug Resistant Organisms: None Reported Past Surgical History: Bowel Resection, Breast Surgery, Cholecystectomy, Hernia Repair Additional Past Surgical History / Comment(s): Dental, Rt Breast biopsy. Colostomy 12/2017, THEN Reversal 02/2018. Cholecystectomy - 08-12-18 Past Anesthesia/Blood Transfusion Reactions: No Reported Reaction Past Psychological History: Anxiety, Bipolar, Depression Smoking Status: Never smoker Past Alcohol Use History: Occasional Past Drug Use History: None Reported - Past Family History Mother History Unknown: Yes Family Medical History: COPD Additional Family Medical History / Comment(s): depression, anxiety Brother(s) Family Medical History: Diabetes Mellitus Medications and Allergies Home Medications Medication Instructions Recorded Confirmed Type Levothyroxine Sodium [Synthroid] 50 mcg PO DAILY 05/05/14 04/26/20 History traZODone HCL [Desyrel] 100 mg PO HS 04/04/15 04/26/20 History Topiramate [Trokendi Xr] 200 mg PO DAILY 07/19/17 04/26/20 History Venlafaxine HCl [Effexor XR] 225 mg PO HS 07/19/17 04/26/20 History HYDROcodone/APAP 7.5-325MG [[place] 1 tab PO BID PRN 03/01/18 04/26/20 History 7.5-325] rOPINIRole HCL [Requip] 0.5 mg PO HS 01/23/19 04/26/20 History Famotidine [Pepcid] 40 mg PO DAILY 07/28/19 04/26/20 History Cetirizine HCl [Zyrtec] 10 mg PO DAILY 08/30/19 04/26/20 History Erenumab-Aooe [Aimovig 140 mg SQ Q28D 08/30/19 04/26/20 History Autoinjector] Pregabalin [Lyrica] 150 mg PO BID 08/30/19 04/26/20 History ARIPiprazole [Abilify] 2 mg PO HS 08/31/19 04/26/20 History Albuterol Sulfate [Proventil Hfa] 1 puff INHALATION RT-Q4H PRN 04/21/20 04/26/20 History Blisovi Fe 1.5-30 1 tab PO HS 04/21/20 04/26/20 History Amoxicillin/Potassium Clav 1 tab PO Q12HR 5 Days #10 tab 04/23/20 04/26/20 Rx [Augmentin 875-125 Tablet] Magnesium Gummies (165mg) 2 tab PO DAILY 04/26/20 04/26/20 History Meloxicam [Mobic] 15 mg PO DAILY 04/26/20 04/26/20 History Allergies Allergy/AdvReac Type Severity Reaction Status Date / Time tramadol Allergy Hallucinati Verified 04/26/20 20:01 ons valacyclovir HCl AdvReac BLURRED Verified 04/26/20 20:01 [From Valtrex] VISION Surgical - Exam Vital Signs Temp Pulse Resp BP Pulse Ox 98.6 F 79 18 144/89 100 04/26/20 17:06 04/26/20 17:06 04/26/20 17:06 04/26/20 17:06 04/26/20 17:06 Results - Labs 04/27/20 08:29 04/27/20 08:29 Abnormal Lab Results - Last 24 Hours (Table) 04/26/20 04/26/20 04/26/20 Range/Units 17:46 17:46 17:46 WBC 13.1 H (3.8-10.6) k/uL Neutrophils # 9.5 H (1.3-7.7) k/uL Chloride 112 H (98-107) mmol/L Carbon Dioxide 21 L (22-30) mmol/L BUN 22 H (7-17) mg/dL Glucose 107 H (74-99) mg/dL Albumin (3.5-5.0) g/dL Lipase 326 H (23-300) U/L Urine Appearance Cloudy H (Clear) Urine Protein Trace H (Negative) Urine Blood Trace H (Negative) Ur Leukocyte Esterase Moderate H (Negative) Urine RBC 6 H (0-5) /hpf Ur Squamous Epith Cells 15 H (0-4) /hpf Urine Bacteria Rare H (None) /hpf Urine Mucus Moderate H (None) /hpf 04/27/20 Range/Units 08:29 WBC (3.8-10.6) k/uL Neutrophils # (1.3-7.7) k/uL Chloride 113 H (98-107) mmol/L Carbon Dioxide (22-30) mmol/L BUN 22 H (7-17) mg/dL Glucose 107 H (74-99) mg/dL Albumin 3.4 L (3.5-5.0) g/dL Lipase (23-300) U/L Urine Appearance (Clear) Urine Protein (Negative) Urine Blood (Negative) Ur Leukocyte Esterase (Negative) Urine RBC (0-5) /hpf Ur Squamous Epith Cells (0-4) /hpf Urine Bacteria (None) /hpf Urine Mucus (None) /hpf Diabetes panel 04/26/20 04/27/20 Range/Units 17:46 08:29 Sodium 139 141 (137-145) mmol/L Potassium 4.2 4.3 (3.5-5.1) mmol/L Chloride 112 H 113 H (98-107) mmol/L Carbon Dioxide 21 L 25 (22-30) mmol/L BUN 22 H 22 H (7-17) mg/dL Creatinine 0.96 0.88 (0.52-1.04) mg/dL Glucose 107 H 107 H (74-99) mg/dL Calcium 9.2 8.5 (8.4-10.2) mg/dL AST 33 24 (14-36) U/L ALT 27 23 (4-34) U/L Alkaline Phosphatase 74 55 (38-126) U/L Total Protein 7.4 6.4 (6.3-8.2) g/dL Albumin 4.0 3.4 L (3.5-5.0) g/dL Calcium panel 04/26/20 04/27/20 Range/Units 17:46 08:29 Calcium 9.2 8.5 (8.4-10.2) mg/dL Albumin 4.0 3.4 L (3.5-5.0) g/dL Pituitary panel 04/26/20 04/27/20 Range/Units 17:46 08:29 Sodium 139 141 (137-145) mmol/L Potassium 4.2 4.3 (3.5-5.1) mmol/L Chloride 112 H 113 H (98-107) mmol/L Carbon Dioxide 21 L 25 (22-30) mmol/L BUN 22 H 22 H (7-17) mg/dL Creatinine 0.96 0.88 (0.52-1.04) mg/dL Glucose 107 H 107 H (74-99) mg/dL Calcium 9.2 8.5 (8.4-10.2) mg/dL Adrenal panel 04/26/20 04/27/20 Range/Units 17:46 08:29 Sodium 139 141 (137-145) mmol/L Potassium 4.2 4.3 (3.5-5.1) mmol/L Chloride 112 H 113 H (98-107) mmol/L Carbon Dioxide 21 L 25 (22-30) mmol/L BUN 22 H 22 H (7-17) mg/dL Creatinine 0.96 0.88 (0.52-1.04) mg/dL Glucose 107 H 107 H (74-99) mg/dL Calcium 9.2 8.5 (8.4-10.2) mg/dL Total Bilirubin 0.4 0.3 (0.2-1.3) mg/dL AST 33 24 (14-36) U/L ALT 27 23 (4-34) U/L Alkaline Phosphatase 74 55 (38-126) U/L Total Protein 7.4 6.4 (6.3-8.2) g/dL Albumin 4.0 3.4 L (3.5-5.0) g/dL
--- NOTE | 2020-04-27 14:01 | US ---
EXAMINATION TYPE: US abdomen complete DATE OF EXAM: 04/27/2020 COMPARISON: CT CLINICAL HISTORY: abdominal pain, hematoma. Patient has had multiple abdominal surgeries: cholecystec nancie, colon resection with ostomy reversal, hernia repair with mesh; patient stated has RLQ pain with hematoma in this region; see CT EXAM MEASUREMENTS: Liver Length: 17.5 cm CBD: 0.7 cm Spleen: 11.0 cm Right Kidney: 10.0 x 5.5 x 4.7 cm Left Kidney: 10.8 x 5.1 x 6.1 cm Pancreas: hyperechoic Liver: left lobe is mildly heterogeneous Gallbladder: surgically removed Evidence for sonographic Aden's sign: no CBD: wnl post laparoscopy cholecystectomy Spleen: wnl Right Kidney: No hydronephrosis or masses seen Left Kidney: No hydronephrosis or masses seen Upper IVC: wnl Abd Aorta: Size is wnl, distal aorta not seen due to posterior shadowing from anterior bowel/hernia surgery and mesh. At patient's left abdominal scar: posterior shadowing from anterior bowel/hernia surgery and mesh is noted. IMPRESSION: 1. No suspicious acute changes. 2. Postsurgical change including abdominal wall mesh. Evaluate this level is somewhat limited with sh adowing present. Smaller collections, such as hematoma, may not be visualized. If additional evaluati on is required, CT would be recommended.
[2020-04-27] MEDS: ARIPiprazole 2 MG TAB PO SCH (21:25)
[2020-04-27] MEDS: traZODone HCL 50 MG TAB PO SCH (21:26)
[2020-04-27] MEDS: VENLAFAXINE HCL ER 75 MG CAP PO SCH (21:26)
--- NOTE | 2020-04-27 22:22 | P.CONS ---
History of Present Illness - Reason for Consult Consult date: 04/27/20 Medical management Requesting physician: Brayan Meadows - Chief Complaint Right lower quadrant pain - History of Present Illness Consultation: This is a very pleasant 34-year-old patient of Dr. Edgardo Inman. Chronic stable medical conditions include asthma, fibromyalgia, GERD, obstructive sleep apnea does not use a CPAP, hypothyroid. Patient has rather extensive medical history. Patient had a perforated diverticulitis with a colostomy in December 2017. Then a reversal February 2018. Had a cholecystectomy in August 2018. Also had incisional hernia repair earlier this year. Just admitted to the hospital from April 22 to April 24. Computed tomography scan of the abdomen showed a possible hematoma. Treated for UTI. Also fibromuscular skeletal pain. Was discharged. Getting better. Now presents with the ER again with increasing right lower quadrant pain. No nausea vomiting. No fever no chills. No change in bowel habits. Patient's menstrual cycle has been irregular for quite some time. Review of systems: GEN.: None EYES: None HEENT: None NECK: None RESPIRATORY: None CARDIOVASCULAR: None GASTROINTESTINAL: As above GENITOURINARY: A regular menstrual cycle MUSCULOSKELETAL: Joint or muscle pains LYMPHATICS: None HEMATOLOGICAL: None PSYCHIATRY: None NEUROLOGICAL: None Past medical history to include: Asthma, fibromyalgia, GERD, SLEEP apnea does not use CPAP, irritable bowel syndrome, hypothyroid migraines perforated diverticulum with colostomy that was reversed, bipolar disorder Social history: Does not smoke or drink alcohol. Lives with her boyfriend. Works at the [employer] center at [place] Physical examination: VITAL SIGNS: 98, 71, 16, 117/78, 96% room air GENERAL: BMI 44.6, laying in bed, not in distress. EYES: Pupils equal. Conjunctiva normal. HEENT: External appearance of nose and ears normal, oral cavity grossly normal. NECK: JVD not raised; masses not palpable. HEART: First and second heart sounds are normal; no edema. LUNGS: Respiratory rate normal; clear to auscultation. ABDOMEN: Soft, some right lower quadrant tenderness, no guarding rigidity, liver spleen not palpable, no masses palpable. PSYCH: Alert and oriented x3; mood and affect slightly anxious. NEUROLOGICAL: Cranial nerves grossly intact; no facial asymmetry, power and sensation grossly intact. LYMPHATICS: No lymph nodes palpable in the axilla and neck INVESTIGATIONS, reviewed in the clinical context: White count 13.1 hemoglobin 12.1 platelets 358 potassium 4.2 creatinine 0.96 UA positive for leukoesterase, squamous epithelial cells 15 Computed tomography scan of the abdomen was-suspected subcutaneous hematoma Assessment: -Patient readmitted with right lower quadrant pain and no nausea vomiting. No fever no chills. No change in bowel pattern. Patient has a regular menstrual cycle. Need to rule out ovarian cause. Patient will benefit from a CIVIL LABORATORY TECHNICIAN consultation with a possible pelvic ultrasound -UA sample contaminated -Intermittent asthma -Chronic fibromyalgia -GERD -Obstructive sleep apnea does not use a CPAP machine -Irritable bowel syndrome -Hypothyroid -Morbid obesity BMI 44.6 Plan: Continue current medication treatment plan. Discussed with Keely WINK CUTTER OPERATOR to get a CIVIL LABORATORY TECHNICIAN consultation with a possible pelvic ultrasound. Discussed with the patient. Thank you Dr. Meadows Past Medical History Past Medical History: Asthma, Fibromyalgia, GERD/Reflux, Musculoskeletal Disorder, Sleep Apnea/CPAP/BIPAP, Thyroid Disorder Additional Past Medical History / Comment(s): Hx Migraines, DDD , IBS, NO CPAP used. HX PERFORATED DIVERTICULITIS W/ PAST Colostomy 12/2017. internal abd hematoma History of Any Multi-Drug Resistant Organisms: None Reported Past Surgical History: Bowel Resection, Breast Surgery, Cholecystectomy, Hernia Repair Additional Past Surgical History / Comment(s): Dental, Rt Breast biopsy. Colostomy 12/2017, THEN Reversal 02/2018. Cholecystectomy - 08-12-18 Past Anesthesia/Blood Transfusion Reactions: No Reported Reaction Past Psychological History: Anxiety, Bipolar, Depression Smoking Status: Never smoker Past Alcohol Use History: Occasional Past Drug Use History: None Reported - Past Family History Mother History Unknown: Yes Family Medical History: COPD Additional Family Medical History / Comment(s): depression, anxiety Brother(s) Family Medical History: Diabetes Mellitus Medications and Allergies Home Medications Medication Instructions Recorded Confirmed Type Levothyroxine Sodium [Synthroid] 50 mcg PO DAILY 05/05/14 04/26/20 History traZODone HCL [Desyrel] 100 mg PO HS 04/04/15 04/26/20 History Topiramate [Trokendi Xr] 200 mg PO DAILY 07/19/17 04/26/20 History Venlafaxine HCl [Effexor XR] 225 mg PO HS 07/19/17 04/26/20 History HYDROcodone/APAP 7.5-325MG [[place] 1 tab PO BID PRN 03/01/18 04/26/20 History 7.5-325] rOPINIRole HCL [Requip] 0.5 mg PO HS 01/23/19 04/26/20 History Famotidine [Pepcid] 40 mg PO DAILY 07/28/19 04/26/20 History Cetirizine HCl [Zyrtec] 10 mg PO DAILY 08/30/19 04/26/20 History Erenumab-Aooe [Aimovig 140 mg SQ Q28D 08/30/19 04/26/20 History Autoinjector] Pregabalin [Lyrica] 150 mg PO BID 08/30/19 04/26/20 History ARIPiprazole [Abilify] 2 mg PO HS 08/31/19 04/26/20 History Albuterol Sulfate [Proventil Hfa] 1 puff INHALATION RT-Q4H PRN 04/21/20 04/26/20 History [place] Fe 1.5-30 1 tab PO HS 04/21/20 04/26/20 History Amoxicillin/Potassium Clav 1 tab PO Q12HR 5 Days #10 tab 04/23/20 04/26/20 Rx [Augmentin 875-125 Tablet] Magnesium Gummies (165mg) 2 tab PO DAILY 04/26/20 04/26/20 History Meloxicam [Mobic] 15 mg PO DAILY 04/26/20 04/26/20 History Allergies Allergy/AdvReac Type Severity Reaction Status Date / Time tramadol Allergy Hallucinati Verified 04/26/20 20:01 ons valacyclovir HCl AdvReac BLURRED Verified 04/26/20 20:01 [From Valtrex] VISION Physical Exam Vitals: Vital Signs Temp Pulse Pulse Resp BP BP Pulse Ox 04/27/20 08:00 98.5 F 68 16 98/66 98 04/27/20 04:00 98.3 F 78 14 117/80 99 04/27/20 00:08 98.1 F 72 12 115/79 99 04/26/20 22:53 98.8 F 77 16 128/84 97 04/26/20 20:40 78 18 136/79 98 04/26/20 19:36 70 12 120/83 99 04/26/20 17:06 98.6 F 79 18 144/89 100 Intake and Output 04/26/20 04/27/20 04/27/20 22:59 06:59 14:59 Intake Total 360 Output Total 350 Balance 10 Intake: Oral 360 Output: Urine 350 Other: Voiding Method Toilet # Voids 1 1 Weight 129.274 kg Results CBC & Chem 7: 04/27/20 08:29 04/27/20 08:29 Labs: Abnormal Lab Results - Last 24 Hours (Table) 04/26/20 04/26/20 04/26/20 Range/Units 17:46 17:46 17:46 WBC 13.1 H (3.8-10.6) k/uL Neutrophils # 9.5 H (1.3-7.7) k/uL Chloride 112 H (98-107) mmol/L Carbon Dioxide 21 L (22-30) mmol/L BUN 22 H (7-17) mg/dL Glucose 107 H (74-99) mg/dL Albumin (3.5-5.0) g/dL Lipase 326 H (23-300) U/L Urine Appearance Cloudy H (Clear) Urine Protein Trace H (Negative) Urine Blood Trace H (Negative) Ur Leukocyte Esterase Moderate H (Negative) Urine RBC 6 H (0-5) /hpf Ur Squamous Epith Cells 15 H (0-4) /hpf Urine Bacteria Rare H (None) /hpf Urine Mucus Moderate H (None) /hpf 04/27/20 Range/Units 08:29 WBC (3.8-10.6) k/uL Neutrophils # (1.3-7.7) k/uL Chloride 113 H (98-107) mmol/L Carbon Dioxide (22-30) mmol/L BUN 22 H (7-17) mg/dL Glucose 107 H (74-99) mg/dL Albumin 3.4 L (3.5-5.0) g/dL Lipase (23-300) U/L Urine Appearance (Clear) Urine Protein (Negative) Urine Blood (Negative) Ur Leukocyte Esterase (Negative) Urine RBC (0-5) /hpf Ur Squamous Epith Cells (0-4) /hpf Urine Bacteria (None) /hpf Urine Mucus (None) /hpf
[2020-04-28] MEDS: SODIUM CHLORIDE 0.9% 1,000 ML IV SCH ×3 (03:05→20:22)
[2020-04-28] MEDS: PIPERACILLIN-TAZOBACTAM 3.375 GM in SODIUM CHLORIDE 0.9% 100 ML IVPB SCH ×3 (03:20→20:18)
[2020-04-28] MEDS: HYDROmorphone 0.5 MG/0.5 ML SYRINGE IVP PRN (03:20)
[2020-04-28] MEDS: LEVOTHYROXINE 50 MCG TAB PO SCH (06:43)
[2020-04-28] MEDS: MAGNESIUM PO SCH (08:00)
[2020-04-28] MEDS: LORATADINE 10 MG TAB PO SCH (08:27)
[2020-04-28] MEDS: PREGABALIN 75 MG CAP PO SCH ×2 (08:27→20:19)
[2020-04-28] MEDS: ARIPiprazole 2 MG TAB PO SCH (08:27)
[2020-04-28] MEDS: FAMOTIDINE 20 MG TAB PO SCH (08:27)
[2020-04-28] MEDS: TOPIRAMATE 100 MG TAB PO SCH (08:28)
[2020-04-28] MEDS: MELOXICAM 7.5 MG TAB PO SCH (08:31)
[2020-04-28 10:40] LABS: Basophils # (A) 0.1 k/uL (0-0.2); Basophils % (A) 1 %; Eosinophils # (A) 0.3 k/uL (0-0.7); Eosinophils % (A) 4 %; HCT 35.7 % (34.0-46.0); HGB 11.2 gm/dL (11.4-16.0); Hypochromasia Slight; Lymphocytes # (A) 2.1 k/uL (1.0-4.8); Lymphocytes % (A) 22 %; MCHC 31.5 g/dL (31.0-37.0); MCV 82.7 fL (80.0-100.0); Mean Platelet Volume 7.5; Monocytes # (A) 0.4 k/uL (0-1.0); Monocytes % (A) 4 %; Neutrophils # (A) 6.6 k/uL (1.3-7.7); Neutrophils % (A) 69 %; Platelet Count 336 k/uL (150-450); RBC 4.32 m/uL (3.80-5.40); RDW 15.1 % (11.5-15.5); WBC 9.6 k/uL (3.8-10.6)
[2020-04-28] MEDS: HYDROcodone/APAP 7.5-325MG 1 EACH TAB PO PRN (13:58)
--- NOTE | 2020-04-28 14:18 | P.PN ---
Subjective Progress Note Date: 04/28/20 CHIEF COMPLAINT: Abdominal pain HISTORY OF PRESENT ILLNESS: Patient is being followed for an abdominal hematoma. She is still reporting pain in that right lower quadrant. She had some upper abdominal pain after the abdominal ultrasound was completed. She is currently tolerating a regular diet. She is having bowel movements. She reports that her pain is about the same. She has any nausea or vomiting. Afebrile. WBC 9.6 hemoglobin 11.2 Abdominal ultrasound no suspicious acute changes. Postsurgical change including abdominal wall mesh. Evaluate this level is somewhat limited with shadowing p resent. Smaller collection such as hematoma may not be visualized. PHYSICAL EXAM: VITAL SIGNS: Reviewed. GENERAL: Well-developed in no acute distress. HEENT: No sclera icterus. Extraocular movements grossly intact. Moist buccal mucosa. Head is atraumatic, normocephalic. ABDOMEN: Soft. Obese. Nondistended. Tenderness with palpation of the right side of the abdomen NEUROLOGIC: Alert and oriented. Cranial nerves II through XII grossly intact. ASSESSMENT: 1. Abdominal pain likely secondary to abdominal hematoma 2. History of multiple abdominal surgeries PLAN: -Continue conservative management -Continue pain control -Resume patient's home [place] -Continue regular diet -Continue to monitor hemoglobin -GI prophylaxis Pepcid and DVT prophylaxis SCDs Physician Ecotherapist note has been reviewed by physician. Signing provider agrees with the documented findings, assessment, and plan of care. Objective - Vital Signs Vital signs: Vital Signs Temp 97.9 F 04/28/20 13:50 Pulse 85 04/28/20 13:50 Resp 16 04/28/20 13:50 BP 117/74 04/28/20 13:50 Pulse Ox 99 04/28/20 13:50 Intake & Output 04/27/20 04/28/20 04/28/20 18:59 06:59 18:59 Intake Total 500 500 Output Total 550 Balance -50 500 Intake: Oral 500 500 Output: Urine 550 Other: Voiding Method Toilet Toilet # Voids 2 - Labs CBC & Chem 7: 04/28/20 09:36 04/27/20 08:29 Labs: Abnormal Lab Results - Last 24 Hours (Table) 04/28/20 Range/Units 09:36 Hgb 11.2 L (11.4-16.0) gm/dL Microbiology - Last 24 Hours (Table) 04/27/20 01:05 Blood Culture - Preliminary Blood No Growth after 24 hours
[2020-04-28] MEDS: BLISOVI FE PO SCH (19:20)
[2020-04-28] MEDS: VENLAFAXINE HCL ER 75 MG CAP PO SCH (20:19)
[2020-04-28] MEDS: traZODone HCL 50 MG TAB PO SCH (20:20)
--- NOTE | 2020-04-28 22:47 | P.PN ---
Progress Note - Text Progress Note Date: 04/28/20 - Chief Complaint Right lower quadrant pain Consultation: This is a very pleasant 34-year-old patient of Dr. Edgardo Inman. Chronic stable medical conditions include asthma, fibromyalgia, GERD, obstructive sleep apnea does not use a CPAP, hypothyroid. Patient has rather extensive medical history. Patient had a perforated diverticulitis with a colostomy in December 2017. Then a reversal February 2018. Had a cholecystectomy in August 2018. Also had incisional hernia repair earlier this year. Just admitted to the hospital from April 22 to April 24. Computed tomography scan of the abdomen showed a possible hematoma. Treated for UTI. Also fibromuscular skeletal pain. Was discharged. Getting better. Now presents with the ER again with increasing right lower quadrant pain. No nausea vomiting. No fever no chills. No change in bowel habits. Patient's menstrual cycle has been irregular for quite some time. Today-tolerating diet. No nausea vomiting. No fever no chills. Still having some right lower quadrant pain. No urinary symptoms. Review of systems: Was done for constitutional, cardiovascular, GI, pulmonary. relevant finding as above Active Medications Hydrocodone Bitart/Acetaminophen (Hydrocodone/Apap 7.5-325mg 1 Each Tab) 1 each PO Q8H PRN PRN Reason: Pain Last Admin: 04/28/20 13:58 Dose: 1 each Documented by: Aripiprazole (Aripiprazole 2 Mg Tab) 2 mg PO DAILY [facility] Last Admin: 04/28/20 08:27 Dose: 2 mg Documented by: Famotidine (Famotidine 20 Mg Tab) 40 mg PO DAILY [facility] Last Admin: 04/28/20 08:27 Dose: 40 mg Documented by: Hydromorphone HCl (Hydromorphone 0.5 Mg/0.5 Ml Syringe) 0.5 mg IVP Q3HR PRN PRN Reason: Moderate Pain Last Admin: 04/28/20 03:20 Dose: 0.5 mg Documented by: Piperacillin Sod/Tazobactam (Sod 3.375 gm/ Sodium Chloride) 100 mls @ 25 mls/hr IVPB Q8H [facility] Last Admin: 04/28/20 20:18 Dose: 25 mls/hr Documented by: Sodium Chloride (Saline 0.9%) 1,000 mls @ 100 mls/hr IV .Q10H [facility] Last Admin: 04/28/20 20:22 Dose: 100 mls/hr Documented by: Levothyroxine Sodium (Levothyroxine 50 Mcg Tab) 50 mcg PO DAILY@0630 [facility] Last Admin: 04/28/20 06:43 Dose: 50 mcg Documented by: Loratadine (Loratadine 10 Mg Tab) 10 mg PO DAILY [facility] Last Admin: 04/28/20 08:27 Dose: 10 mg Documented by: Meloxicam (Meloxicam 7.5 Mg Tab) 15 mg PO DAILY [facility] Last Admin: 04/28/20 08:31 Dose: 15 mg Documented by: Naloxone HCl (Naloxone 0.4 Mg/Ml 1 Ml Vial) 0.2 mg IV Q2M PRN PRN Reason: Opioid Reversal Magnesium Gummies ( (165mg) 2 Tab) 2 tab PO DAILY [facility] Last Admin: 04/28/20 08:00 Dose: Not Given Documented by: Erenumab-Aooe [ Aimovig Autoinjector ] 140 Mg/Ml Auto. Injct 140 mg SQ Q28D [facility] [place] Fe 1.5-30 1 (Tab) 1 tab PO [facility] Last Admin: 04/28/20 19:20 Dose: Not Given Documented by: Ondansetron HCl (Ondansetron 4 Mg/2 Ml Vial) 4 mg IVP Q8HR PRN PRN Reason: Nausea And Vomiting Pregabalin (Pregabalin 75 Mg Cap) 150 mg PO BID [facility] Last Admin: 04/28/20 20:19 Dose: 150 mg Documented by: Ropinirole HCl (Ropinirole Hcl 0.25 Mg Tab) 0.5 mg PO [facility] Last Admin: 04/28/20 20:19 Dose: 0.5 mg Documented by: Topiramate (Topiramate 100 Mg Tab) 200 mg PO QAM [facility] Last Admin: 04/28/20 08:28 Dose: 200 mg Documented by: Trazodone HCl (Trazodone Hcl 50 Mg Tab) 100 mg PO [facility] Last Admin: 04/28/20 20:20 Dose: 100 mg Documented by: Venlafaxine HCl (Venlafaxine Hcl Er 75 Mg Cap) 225 mg PO [facility] Last Admin: 04/28/20 20:19 Dose: 225 mg Documented by: Physical examination: VITAL SIGNS: 97.9, sitting 85, 16, 117/74 99% room air GENERAL: BMI 44.6, laying in bed, not in distress. EYES: Pupils equal. Conjunctiva normal. NECK: JVD not raised; masses not palpable. HEART: First and second heart sounds are normal; no edema. LUNGS: Respiratory rate normal; clear to auscultation. ABDOMEN: Soft, some right lower quadrant tenderness, no guarding rigidity, liver spleen not palpable, no masses palpable. PSYCH: Alert and oriented x3; mood and affect slightly anxious. INVESTIGATIONS, reviewed in the clinical context: April 28: White count 9.6 hemoglobin 11.2 White count 13.1 hemoglobin 12.1 platelets 358 potassium 4.2 creatinine 0.96 UA positive for leukoesterase, squamous epithelial cells 15 Computed tomography scan of the abdomen was-suspected subcutaneous hematoma Abdominal ultrasound-unremarkable Assessment: -Patient readmitted with right lower quadrant pain and no nausea vomiting. No fever no chills. No change in bowel pattern. Patient has a regular menstrual cycle. Need to rule out ovarian cause. Patient will benefit from a [employer]ET[employer] consultation with a possible pelvic ultrasound -UA sample contaminated -Intermittent asthma -Chronic fibromyalgia -GERD -Obstructive sleep apnea does not use a CPAP machine -Irritable bowel syndrome -Hypothyroid -Morbid obesity BMI 44.6 Plan: Will do a transvaginal ultrasound and get a [employer] consultation. Other medications to continue. Thank you Dr. Meadows
[2020-04-29] MEDS: PIPERACILLIN-TAZOBACTAM 3.375 GM in SODIUM CHLORIDE 0.9% 100 ML IVPB SCH ×2 (04:25→12:06)
[2020-04-29] MEDS: LEVOTHYROXINE 50 MCG TAB PO SCH (06:32)
[2020-04-29 07:11] LABS: HCT 37.2 % (34.0-46.0); HGB 11.3 gm/dL (11.4-16.0); Hypochromasia Marked; MCHC 30.3 g/dL (31.0-37.0); MCV 82.6 fL (80.0-100.0); Mean Platelet Volume 7.5; Platelet Count 336 k/uL (150-450); RBC 4.51 m/uL (3.80-5.40); WBC 7.3 k/uL (3.8-10.6)
[2020-04-29] MEDS: MAGNESIUM PO SCH (08:08)
[2020-04-29] MEDS: PREGABALIN 75 MG CAP PO SCH ×2 (08:09→20:43)
[2020-04-29] MEDS: SODIUM CHLORIDE 0.9% 1,000 ML IV SCH ×2 (08:09→18:50)
[2020-04-29] MEDS: MELOXICAM 7.5 MG TAB PO SCH (08:09)
[2020-04-29] MEDS: LORATADINE 10 MG TAB PO SCH (08:10)
[2020-04-29] MEDS: FAMOTIDINE 20 MG TAB PO SCH (08:10)
[2020-04-29] MEDS: ARIPiprazole 2 MG TAB PO SCH (08:10)
[2020-04-29] MEDS: TOPIRAMATE 100 MG TAB PO SCH (08:10)
--- NOTE | 2020-04-29 08:50 | US ---
EXAMINATION TYPE: US transvaginal DATE OF EXAM: 04/29/2020 COMPARISON: CT 04/26/2020 CLINICAL HISTORY: Right lower quadrant pain, deep. Right pelvic pain. TECHNIQUE: . Transvaginal sonographic images of the pelvis were acquired. Date of LMP: A few months ago. patient taking control EXAM MEASUREMENTS: Uterus: 5.3 x 2.25 x 3.1 cm Endometrial Stripe: 0.3 cm Right Ovary: 3.5 x 1.8 x 1.8 cm Left Ovary: 3.5 x 1.3 x 1.7 cm 1. Uterus: Anteverted wnl 2. Endometrium: wnl 3. Right Ovary: Follicles visualized, wnl 4. Left Ovary: Follicles visualized, wnl 5. Bilateral Adnexa: wnl 6. Posterior cul-de-sac: wnl IMPRESSION: No suspicious finding to account for patient's symptoms.
[2020-04-29] MEDS: HYDROcodone/APAP 7.5-325MG 1 EACH TAB PO PRN ×2 (08:52→18:50)
--- NOTE | 2020-04-29 12:51 | P.OBCN ---
History of Present Illness Consult date: 04/29/20 Requesting physician: Malick Fontenot Reason for consult: other Chief complaint: Abdominal pain History of present illness: This patient is a pleasant 35-year-old 0 para 0 female who is admitted approximately 3 days ago with complaints of persistent lower abdominal pain. Patient apparently was diagnosed with a subcutaneous hematoma and has been followed by Gen. surgery. Patient states that she was admitted about a week ago with this pain and then sent home, unfortunately the pain has recurred and she was readmitted for evaluation. Evaluation has included a CAT scan and a transvaginal ultrasound. CAT scan and ultrasound show no evidence of uterine or ovarian pathology. Patient is on the control pill and has normal regular menstrual cycles on this. Past Medical History Past Medical History: Asthma, Fibromyalgia, GERD/Reflux, Musculoskeletal Disorder, Sleep Apnea/CPAP/BIPAP, Thyroid Disorder Additional Past Medical History / Comment(s): Hx Migraines, DDD , IBS, NO CPAP used. HX PERFORATED DIVERTICULITIS W/ PAST Colostomy 12/2017. internal abd hematoma History of Any Multi-Drug Resistant Organisms: None Reported Past Surgical History: Bowel Resection, Breast Surgery, Cholecystectomy, Hernia Repair Additional Past Surgical History / Comment(s): Dental, Rt Breast biopsy. Colostomy 12/2017, THEN Reversal 02/2018. Cholecystectomy - 08-12-18 Past Anesthesia/Blood Transfusion Reactions: No Reported Reaction Past Psychological History: Anxiety, Bipolar, Depression Smoking Status: Never smoker Past Alcohol Use History: Occasional Past Drug Use History: None Reported - Past Family History Mother History Unknown: Yes Family Medical History: COPD Additional Family Medical History / Comment(s): depression, anxiety Brother(s) Family Medical History: Diabetes Mellitus Medications and Allergies Home Medications Medication Instructions Recorded Confirmed Type Levothyroxine Sodium [Synthroid] 50 mcg PO DAILY 05/05/14 04/26/20 History traZODone HCL [Desyrel] 100 mg PO HS 04/04/15 04/26/20 History Topiramate [Trokendi Xr] 200 mg PO DAILY 07/19/17 04/26/20 History Venlafaxine HCl [Effexor XR] 225 mg PO HS 07/19/17 04/26/20 History HYDROcodone/APAP 7.5-325MG [[place]ana 1 tab PO BID PRN 03/01/18 04/26/20 History 7.5-325] rOPINIRole HCL [Requip] 0.5 mg PO HS 01/23/19 04/26/20 History Famotidine [Pepcid] 40 mg PO DAILY 07/28/19 04/26/20 History Cetirizine HCl [Zyrtec] 10 mg PO DAILY 08/30/19 04/26/20 History Erenumab-Aooe [Aimovig 140 mg SQ Q28D 08/30/19 04/26/20 History Autoinjector] Pregabalin [Lyrica] 150 mg PO BID 08/30/19 04/26/20 History ARIPiprazole [Abilify] 2 mg PO HS 08/31/19 04/26/20 History Albuterol Sulfate [Proventil Hfa] 1 puff INHALATION RT-Q4H PRN 04/21/20 04/26/20 History [place] Fe 1.5-30 1 tab PO HS 04/21/20 04/26/20 History Amoxicillin/Potassium Clav 1 tab PO Q12HR 5 Days #10 tab 04/23/20 04/26/20 Rx [Augmentin 875-125 Tablet] Magnesium Gummies (165mg) 2 tab PO DAILY 04/26/20 04/26/20 History Meloxicam [Mobic] 15 mg PO DAILY 04/26/20 04/26/20 History Allergies Allergy/AdvReac Type Severity Reaction Status Date / Time tramadol Allergy Hallucinati Verified 04/26/20 20:01 ons valacyclovir HCl AdvReac BLURRED Verified 04/26/20 20:01 [From Valtrex] VISION Exam Vital Signs Temp Pulse Resp BP Pulse Ox 04/29/20 07:56 97.9 F 61 18 117/75 99 04/29/20 04:26 97.7 F 64 98 H 97/63 04/28/20 20:00 98.3 F 65 18 103/69 98 04/28/20 13:50 97.9 F 85 16 117/74 99 Intake and Output 04/28/20 04/29/20 04/29/20 22:59 06:59 14:59 Intake Total 600 1450 400 Balance 600 1450 400 Intake: Intake, IV Titration 1200 100 Amount Piperacillin-Tazobactam 3 200 100 .375 gm In Sodium Chloride 0.9% 100 ml @ 25 mls/hr IVPB Q8H [facility] Rx#: [id number] Sodium Chloride 0.9% 1, 1000 000 ml @ 100 mls/hr IV . Q10H [facility] Rx#:[id number] Oral 600 250 300 Other: Voiding Method Toilet # Voids 2 3 1 Results Result Diagrams: 04/29/20 06:30 04/27/20 08:29 Abnormal Lab Results - Last 24 Hours (Table) 04/29/20 Range/Units 06:30 Hgb 11.3 L (11.4-16.0) gm/dL MCHC 30.3 L (31.0-37.0) g/dL Microbiology - Last 24 Hours (Table) 04/27/20 01:05 Blood Culture - Preliminary Blood No Growth after 48 hours Assessment and Plan Assessment: This is a pleasant 35-year-old 0 para 0 female with lower abdominal pain which appears to be related to her subcutaneous hematoma and/or previous bowel surgeries. Imaging of the pelvis is completely normal. 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 I recommend the patient stay on the co ntrol pill and see me at the time of her regularly yearly exam. Thank you very much for this consultation. (1) Abdominal pain Current Visit: Yes Status: Chronic Code(s): R10.9 - UNSPECIFIED ABDOMINAL PAIN SNOMED Code(s): 65525963
--- NOTE | 2020-04-29 15:17 | P.DS ---
Providers Date of admission: 04/28/20 11:46 Expected date of discharge: 04/29/20 Attending physician: Brayan Meadows Consults: 04/27/20 08:15 Consult Physician Routine Consulting Provider: Malick Fontenot Consult Reason/Comments: Medical management Do you want consulting provider notified?: Yes 04/28/20 22:45 Consult Physician Routine Consulting Provider: Chucky Slaughter Consult Reason/Comments: Irregular menstrual cycle, lower abdominal pain Do you want consulting provider notified?: Yes, Notify in am 04/29/20 13:56 Consult Physician Urgent Consulting Provider: Sade Maloney Consult Reason/Comments: Assess need for outpatient antibiotics. Do you want consulting provider notified?: Yes Primary care physician: Edgardo Inman Hospital Course: Discharge diagnosis 1. Abdominal pain likely secondary to abdominal wall hematoma 2. History of multiple abdominal surgeries Hospital course This is a 34-year-old female with a known history of multiple abdominal surg eries. Patient was just recently hospitalized on 04/21/2024 a abdominal hematoma that was treated conservatively. Patient reports her pain had been controlled at the time of discharge. However over the last couple a days she's had increased on abdominal pain on the right side of her abdomen. She therefore came into the emergency room for further evaluation and treatment. Computed tomography scan of the abdomen shows stable appearance of suspected subcutaneous hematoma along the anterior and left anterior abdominal wall. It is felt that her abdominal pain was secondary to the abdominal wall hematoma. Patient was treated conservatively. Her pain is controlled. She is tolerating diet. 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 A transvaginal ultrasound was negative. Patient is afebrile. She is ambulating without difficulty. Patient will be seen by infectious disease prior to discharge to see if there are any antibiotic recommendations for discharge. Patient is stable for discharge. Physician Hepatologist note has been reviewed by physician. Signing provider agrees with the documented findings, assessment, and plan of care. Patient Condition at Discharge: Stable Plan - Discharge Summary Discharge Rx Participant: Yes New Discharge Prescriptions: Continue Levothyroxine Sodium [Synthroid] 50 mcg PO DAILY traZODone HCL [Desyrel] 100 mg PO HS Venlafaxine HCl [Effexor XR] 225 mg PO HS Topiramate [Trokendi Xr] 200 mg PO DAILY HYDROcodone/APAP 7.5-325MG [[place] 7.5-325] 1 tab PO BID PRN PRN Reason: Pain rOPINIRole HCL [Requip] 0.5 mg PO HS Famotidine [Pepcid] 40 mg PO DAILY Erenumab-Aooe [Aimovig Autoinjector] 140 mg SQ Q28D Cetirizine HCl [Zyrtec] 10 mg PO DAILY Pregabalin [Lyrica] 150 mg PO BID ARIPiprazole [Abilify] 2 mg PO HS [place]ovi Fe 1.5-30 1 tab PO HS Albuterol Sulfate [Proventil Hfa] 1 puff INHALATION RT-Q4H PRN PRN Reason: Shortness Of Breath Magnesium Gummies (165mg) 2 tab PO DAILY Discontinued Amoxicillin/Potassium Clav [Augmentin 875-125 Tablet] 1 tab PO Q12HR 5 Days #10 tab Meloxicam [Mobic] 15 mg PO DAILY Discharge Medication List Levothyroxine Sodium [Synthroid] 50 mcg PO DAILY 05/05/14 [History] traZODone HCL [Desyrel] 100 mg PO HS 04/04/15 [History] Topiramate [Trokendi Xr] 200 mg PO DAILY 07/19/17 [History] Venlafaxine HCl [Effexor XR] 225 mg PO HS 07/19/17 [History] HYDROcodone/APAP 7.5-325MG [[place] 7.5-325] 1 tab PO BID PRN 03/01/18 [History] rOPINIRole HCL [Requip] 0.5 mg PO HS 01/23/19 [History] Famotidine [Pepcid] 40 mg PO DAILY 07/28/19 [History] Cetirizine HCl [Zyrtec] 10 mg PO DAILY 08/30/19 [History] Erenumab-Aooe [Aimovig Autoinjector] 140 mg SQ Q28D 08/30/19 [History] Pregabalin [Lyrica] 150 mg PO BID 08/30/19 [History] ARIPiprazole [Abilify] 2 mg PO HS 08/31/19 [History] Albuterol Sulfate [Proventil Hfa] 1 puff INHALATION RT-Q4H PRN 04/21/20 [History] Blisovi Fe 1.5-30 1 tab PO HS 12/09/20 [History] Magnesium Gummies (165mg) 2 tab PO DAILY 04/26/20 [History] Follow up Appointment(s)/Referral(s): Edgardo Inman MD [Primary Care Provider] - 1-2 days Brayan Meadows MD [STAFF PHYSICIAN] - 05/04/20 4:10 pm Activity/Diet/Wound Care/Special Instructions: Okay to discharge home if cleared by infectious disease Diet regular Activity as tolerated Discharge Disposition: HOME SELF-CARE
[2020-04-29] MEDS: VENLAFAXINE HCL ER 75 MG CAP PO SCH (20:44)
[2020-04-29] MEDS: traZODone HCL 50 MG TAB PO SCH (20:44)
[2020-04-29] MEDS: BLISOVI FE PO SCH (20:45)
--- NOTE | 2020-04-30 01:00 | CONS ---
CONSULTATION DATE OF SERVICE: 04/29/2020. REASON FOR CONSULTATION: Abdominal hematoma and antibiotic therapy. HISTORY OF PRESENT ILLNESS: The patient is a 35-year-old female who initially presented to [facility] ER last week on April 21, 2020, in this patient who started having acute right lower quadrant abdominal pain. Apparently the patient was working on [employer] in this patient who did have history of multiple abdominal surgeries including diverticulitis perforation, partial colectomy, colostomy subsequently reversal and did have mesh revision about 4 months ago. The patient's symptoms started about 30 minutes prior to presentation to hospital on 04/21/2020 and was mostly right lower quadrant area, sharp and rates is almost 10 out of 10 and no radiation. The patient did not have any fever. The patient did have a CT of abdomen and pelvis done on April 21, 2020, with the concern for subcutaneous fluid over the anterior abdominal considered hematoma that appears to have increased compared to old CT scan. No other acute abnormality was noted. The patient was subsequently stabilized. She was treated with antibiotic and pain medication and was discharged home. On 04/23/2020, the patient mentioned she did okay for a day or two; however, subsequently, the patient's pain continued to get worse and presented back to [facility] ER on April 26, 2020, with concern for worsening pain to the right lower quadrant area. The patient described the pain to be sharp, almost 10 out of 10 in severity, no radiation. Some nausea, but no vomiting. No diarrhea or constipation and no fever. With these symptoms, the patient was re-evaluated by the ER physician. On presentation to the hospital, the patient was afebrile and no fever has been recorded since then. The patient did have mild elevated white count 13.1 that subsequently normalized. Kidney function has been normal. Urine was moderate leukocyte esterase, but 4 WBCs. The patient did have a repeat CT of abdomen and pelvis completed April 26 which did show stable appearance of the suspected subcutaneous hematoma along the anterior and left anterior abdominal wall. The patient also had an abdominal ultrasound, no suspicious acute changes, postsurgical changes including abdominal wall mesh, possible hematoma. The patient has been treated with Zosyn and Dilaudid. The patient subsequently did have improvement in her abdominal pain and is currently on [place]. Infectious Disease was consulted this afternoon for recommendation regarding possibly discharge antibiotic therapy. REVIEW OF SYSTEMS: Positive points have been mentioned in HPI. Rest of the systems are negative. PAST MEDICAL HISTORY: Asthma, fibromyalgia, gastroesophageal reflux disease, sleep apnea, hypothyroidism, degenerative disease, diverticulitis perforated. PAST SURGICAL HISTORY: Bowel resection, breast surgery, cholecystectomy, hernia repair, colostomy and subsequent reversal and cholecystectomy. SOCIAL HISTORY: No history of smoking. Occasionally drinks. No drug use. FAMILY HISTORY: Mother history of COPD. ALLERGIES: Allergies to TRAMADOL and VALACYCLOVIR. MEDICATIONS: Medications include the patient is currently on [place], Abilify, Pepcid, Dilaudid, Synthroid, Claritin, Narcan, Zofran, Lyrica, Requip, Topamax, Desyrel, Effexor and Zosyn. PHYSICAL EXAMINATION: Blood pressure 147/84 with a pulse of 78, temperature 98.4. She is 100% on room air. General description is a middle-aged female lying in bed in no distress. No tachypnea or accessory muscle of respiration use. HEENT: Examination shows slight pallor. No scleral icterus. Oral mucous membrane is dry. No pharyngeal erythema or thrush. NECK: Trachea central, no thyromegaly. LUNGS: Unlabored breathing, clear to auscultation anteriorly. No wheeze or crackle. HEART: S1, S2. Regular rate and rhythm. ABDOMEN: Soft, minimal tenderness right lower quadrant with no swelling, no redness. Minimal induration. EXTREMITIES: No edema of feet. SKIN EXAMINATION: No rash or mass palpable. NEUROLOGICAL: The patient is awake, alert, oriented x3. Mood and affect normal. LABS: Hemoglobin 11.3, white count 7.3, admission white count was 13.1. BUN of 21, creatinine 0.88. Blood culture has been negative. DIAGNOSTIC IMPRESSION AND PLAN: Patient admitted to the hospital with abdominal pain in this patient who did have an abnormal CT with evidence of abdominal wall fluid collection, concern for possible hematoma in this patient who does not have any fever, no redness on the abdominal wall. Mildly elevated white count on admission that has resolved. PLAN: 1. We will discontinue her antibiotic therapy. Recommend to monitor the patient closely off antibiotic overnight. 2. We will recheck her CBC and a CRP in the a.m. and if those remain to be normal, more likely pointing towards hematoma; hence, recommend no antibiotic on discharge. However, if those numbers remain to be elevated tomorrow, we will review CT with radiologist to see if the fluid can be aspirated CT-guided and sent for any cultures. Thank you for this consultation. Will follow this patient along with you. MMODL / IJN: [id number] /
[2020-04-30] MEDS: SODIUM CHLORIDE 0.9% 1,000 ML IV SCH (04:27)
[2020-04-30 06:05] LABS: Basophils # (A) 0.1 k/uL (0-0.2); Basophils % (A) 1 %; Eosinophils # (A) 0.4 k/uL (0-0.7); Eosinophils % (A) 5 %; HCT 36.9 % (34.0-46.0); HGB 11.6 gm/dL (11.4-16.0); Hypochromasia Slight; Lymphocytes # (A) 2.3 k/uL (1.0-4.8); Lymphocytes % (A) 29 %; MCH 25.8 pg (25.0-35.0); MCHC 31.5 g/dL (31.0-37.0); Mean Platelet Volume 7.3; Monocytes # (A) 0.4 k/uL (0-1.0); Monocytes % (A) 5 %; Neutrophils # (A) 4.7 k/uL (1.3-7.7); Neutrophils % (A) 59 %; Platelet Count 341 k/uL (150-450); RDW 15.2 % (11.5-15.5)
[2020-04-30] MEDS: HYDROcodone/APAP 7.5-325MG 1 EACH TAB PO PRN (06:09)
[2020-04-30] MEDS: LEVOTHYROXINE 50 MCG TAB PO SCH (06:10)
[2020-04-30 06:16] LABS: Potassium 4.2 mmol/L (3.5-5.1); Sodium 139 mmol/L (137-145)
[2020-04-30 06:21] LABS: African American GFR (CKD) >90 (>60 ml/min/1.73 sqM); Anion Gap 5 mmol/L; Blood Urea Nitrogen 19 mg/dL (7-17); C Reactive Protein 32.3 mg/L (<10.0); Calcium 8.9 mg/dL (8.4-10.2); Carbon Dioxide 21 mmol/L (22-30); Chloride 113 mmol/L (98-107); Glucose 117 mg/dL (74-99); Non-African American GFR(CKD) 86 (>60 ml/min/1.73 sqM)
[2020-04-30 09:05] VITALS: BP 128/70; PULSE 69; RESP 14; TEMP 98.1
[2020-04-30] MEDS: LORATADINE 10 MG TAB PO SCH (09:13)
[2020-04-30] MEDS: ARIPiprazole 2 MG TAB PO SCH (09:13)
[2020-04-30] MEDS: PREGABALIN 75 MG CAP PO SCH (09:14)
[2020-04-30] MEDS: TOPIRAMATE 100 MG TAB PO SCH (09:14)
[2020-04-30] MEDS: FAMOTIDINE 20 MG TAB PO SCH (09:14)
[2020-04-30] MEDS: MAGNESIUM PO SCH (09:15)
--- NOTE | 2020-04-30 15:23 | PN ---
PROGRESS NOTE DATE OF SERVICE: 04/30/2020 REASON FOR FOLLOWUP: Abdominal hematoma and need for antibiotic on discharge. INTERVAL HISTORY: The patient is currently afebrile. She was seen on rounds this afternoon. The patient is feeling better, breathing comfortably. Overall, right lower quadrant abdominal pain has improved compared to yesterday. No chest pain, shortness of breath or cough, no diarrhea. PHYSICAL EXAMINATION: Blood pressure 128/70 with a pulse of 69, temperature 98.1, she is 95% on room air. General description is a middle-aged female, lying in bed in no distress. RESPIRATORY SYSTEM: Unlabored breathing, clear to auscultation anteriorly. HEART: S1, S2. Regular rate and rhythm. ABDOMEN: Soft, no tenderness. LABS: Hemoglobin is 11.2, white count 8.0, hematocrit 32. IMPRESSION/PLAN: Patient abdominal wall hematoma. Clinically not behaving as an abscess. Antibiotic was discontinued yesterday. Patient overall improved compared to yesterday. White count normal. No fever, has no need for specific antibiotic on discharge. If she has any recurrence of fever, return to ER right away. MMODL / IJN: [id number] /
--- NOTE | 2020-04-30 21:20 | P.PN ---
Progress Note - Text Progress Note Date: 04/29/20 - Chief Complaint Right lower quadrant pain Consultation: This is a very pleasant 34-year-old patient of Dr. Edgardo Inman. Chronic stable medical conditions include asthma, fibromyalgia, GERD, obstructive sleep apnea does not use a CPAP, hypothyroid. Patient has rather extensive medical history. Patient had a perforated diverticulitis with a colostomy in December 2017. Then a reversal February 2018. Had a cholecystectomy in August 2018. Also had incisional hernia repair earlier this year. Just admitted to the hospital from April 22 to April 24. Computed tomography scan of the abdomen showed a possible hematoma. Treated for UTI. Also fibromuscular skeletal pain. Was discharged. Getting better. Now presents with the ER again with increasing right lower quadrant pain. No nausea vomiting. No fever no chills. No change in bowel habits. Patient's menstrual cycle has been irregular for quite some time. Today-tolerating diet. Slight right lower quadrant pain. No nausea vomiting. No fever. Review of systems: Was done for constitutional, cardiovascular, GI, pulmonary. relevant finding as above Active Medications Hydrocodone Bitart/Acetaminophen (Hydrocodone/Apap 7.5-325mg 1 Each Tab) 1 each PO Q8H PRN PRN Reason: Pain Last Admin: 04/29/20 18:50 Dose: 1 each Documented by: Aripiprazole (Aripiprazole 2 Mg Tab) 2 mg PO DAILY [facility] Last Admin: 04/29/20 08:10 Dose: 2 mg Documented by: Famotidine (Famotidine 20 Mg Tab) 40 mg PO DAILY [facility] Last Admin: 04/29/20 08:10 Dose: 40 mg Documented by: Hydromorphone HCl (Hydromorphone 0.5 Mg/0.5 Ml Syringe) 0.5 mg IVP Q3HR PRN PRN Reason: Moderate Pain Last Admin: 04/28/20 03:20 Dose: 0.5 mg Documented by: Sodium Chloride (Saline 0.9%) 1,000 mls @ 100 mls/hr IV .Q10H [facility] Last Admin: 04/29/20 18:50 Dose: 100 mls/hr Documented by: Levothyroxine Sodium (Levothyroxine 50 Mcg Tab) 50 mcg PO DAILY@0630 [facility] Last Admin: 04/29/20 06:32 Dose: 50 mcg Documented by: Loratadine (Loratadine 10 Mg Tab) 10 mg PO DAILY [facility] Last Admin: 04/29/20 08:10 Dose: 10 mg Documented by: Naloxone HCl (Naloxone 0.4 Mg/Ml 1 Ml Vial) 0.2 mg IV Q2M PRN PRN Reason: Opioid Reversal Magnesium Gummies ( (165mg) 2 Tab) 2 tab PO DAILY [facility] Last Admin: 04/29/20 08:08 Dose: Not Given Documented by: Erenumab-Aooe [ Aimovig Autoinjector ] 140 Mg/Ml Auto. Injct 140 mg SQ Q28D [facility] [place] 1.5-30 1 (Tab) [address] [facility] Last Admin: 04/29/20 20:45 Dose: Not Given Documented by: Ondansetron HCl (Ondansetron 4 Mg/2 Ml Vial) 4 mg IVP Q8HR PRN PRN Reason: Nausea And Vomiting Pregabalin (Pregabalin 75 Mg Cap) 150 mg PO BID [facility] Last Admin: 04/29/20 20:43 Dose: 150 mg Documented by: Ropinirole HCl (Ropinirole Hcl 0.25 Mg Tab) 0.[address] [facility] Last Admin: 04/29/20 20:44 Dose: 0.5 mg Documented by: Topiramate (Topiramate 100 Mg Tab) 200 mg PO QAM [facility] Last Admin: 04/29/20 08:10 Dose: 200 mg Documented by: Trazodone HCl (Trazodone Hcl 50 Mg Tab) [address] [facility] Last Admin: 04/29/20 20:44 Dose: 100 mg Documented by: Venlafaxine HCl (Venlafaxine Hcl Er 75 Mg Cap) [address] [facility] Last Admin: 04/29/20 20:44 Dose: 225 mg Documented by: Physical examination: VITAL SIGNS: 97.8, 69, 16, 121/77, 95% room air GENERAL:, laying in bed, not in distress. EYES: Pupils equal. Conjunctiva normal. NECK: JVD not raised; masses not palpable. HEART: First and second heart sounds are normal; no edema. LUNGS: Respiratory rate normal; clear to auscultation. ABDOMEN: Soft, minimal right lower quadrant tenderness, no guarding rigidity, liver spleen not palpable, no masses palpable. PSYCH: Alert and oriented x3; mood and affect slightly anxious. INVESTIGATIONS, reviewed in the clinical context: April 29: White count 7.3 hemoglobin 11.3 April 28: White count 9.6 hemoglobin 11.2 White count 13.1 hemoglobin 12.1 platelets 358 potassium 4.2 creatinine 0.96 UA positive for leukoesterase, squamous epithelial cells 15 Computed tomography scan of the abdomen was-suspected subcutaneous hematoma Abdominal ultrasound-unremarkable Transvaginal ultrasound-unremarkable Assessment: -Patient readmitted with right lower quadrant pain and no nausea vomiting. No fever no chills. No change in bowel pattern. Patient has irregular menstrual cycle. 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 Transvaginal ultrasound unremarkable -UA sample contaminated -Intermittent asthma -Chronic fibromyalgia -GERD -Obstructive sleep apnea does not use a CPAP machine -Irritable bowel syndrome -Hypothyroid -Morbid obesity BMI 44.6 Plan: Continue current medication treatment plan. ID was consulted by Dr. Meadows. Await his input. Patient feels better. Probably doesn't need antibiotics. Thank you Dr. Meadows
--- NOTE | 2020-04-30 21:24 | P.PN ---
Progress Note - Text Progress Note Date: 04/30/20 - Chief Complaint Right lower quadrant pain Consultation: This is a very pleasant 34-year-old patient of Dr. Edgardo Inman. Chronic stable medical conditions include asthma, fibromyalgia, GERD, obstructive sleep apnea does not use a CPAP, hypothyroid. Patient has rather extensive medical history. Patient had a perforated diverticulitis with a colostomy in December 2017. Then a reversal February 2018. Had a cholecystectomy in August 2018. Also had incisional hernia repair earlier this year. Just admitted to the hospital from April 22 to April 24. Computed tomography scan of the abdomen showed a possible hematoma. Treated for UTI. Also fibromuscular skeletal pain. Was discharged. Getting better. Now presents with the ER again with increasing right lower quadrant pain. No nausea vomiting. No fever no chills. No change in bowel habits. Patient's menstrual cycle has been irregular for quite some time. Today-tolerating diet. Feeling better. No new issues. Seen by ID earlier today. No need for antibiotics. Review of systems: Was done for constitutional, cardiovascular, GI, pulmonary. relevant finding as above Current antibiotics reviewed in today's electronic records Physical examination: VITAL SIGNS: 98.1, 69, 14, 120/70, 96% room air GENERAL:, laying in bed, not in distress. EYES: Pupils equal. Conjunctiva normal. NECK: JVD not raised; masses not palpable. HEART: First and second heart sounds are normal; no edema. LUNGS: Respiratory rate normal; clear to auscultation. ABDOMEN: Soft, minimal right lower quadrant tenderness, no guarding rigidity, liver spleen not palpable, no masses palpable. PSYCH: Alert and oriented x3; mood and affect slightly anxious. INVESTIGATIONS, reviewed in the clinical context: April 29: White count 7.3 hemoglobin 11.3 April 28: White count 9.6 hemoglobin 11.2 White count 13.1 hemoglobin 12.1 platelets 358 potassium 4.2 creatinine 0.96 UA positive for leukoesterase, squamous epithelial cells 15 Computed tomography scan of the abdomen was-suspected subcutaneous hematoma Abdominal ultrasound-unremarkable Transvaginal ultrasound-unremarkable Assessment: -Patient readmitted with right lower quadrant pain and no nausea vomiting. No fever no chills. No change in bowel pattern. Patient has irregular menstrual cycle. TOY ASSEMBLER WOOD consulted.-Not felt to be any TOY ASSEMBLER WOOD issue. Transvaginal ultrasound unremarkable. Pain could be from the abdominal wall hematoma. -UA sample contaminated -Intermittent asthma -Chronic fibromyalgia -GERD -Obstructive sleep apnea does not use a CPAP machine -Irritable bowel syndrome -Hypothyroid -Morbid obesity BMI 44.6 Plan: Continue current medication treatment plan. No indication of antibiotic. Discussed with patient. Thank you Dr. Meadows
[2020-05-23] MEDS ORDERED: AUTO INJCT SQ SCH (09:00)
[2020-05-23] MEDS ORDERED: ERENUMAB AOOE 140 MG/ML SQ SCH (09:00)
== END 2020-04-30 15:09 | disposition home or self-care (01) | DRG 605 ==
LOC: EC 17:05 → 6PED 19:36 → OBSVTOIN 04-28 11:46
PROVIDERS: ADMIT Surgery; ATTEND Surgery
DX: S30.1XXA Contusion of abdominal wall, initial encounter (principal); Z68.41 Body mass index [BMI] 40.0-44.9, adult; N39.0 Urinary tract infection, site not specified; E03.9 Hypothyroidism, unspecified; F31.9 Bipolar disorder, unspecified; E66.01 Morbid (severe) obesity due to excess calories; E86.0 Dehydration; N92.6 Irregular menstruation, unspecified; G47.33 Obstructive sleep apnea (adult) (pediatric); K58.9 Irritable bowel syndrome, unspecified; J45.20 Mild intermittent asthma, uncomplicated; M79.7 Fibromyalgia; K21.9 Gastro-esophageal reflux disease without esophagitis; F41.9 Anxiety disorder, unspecified; Z79.890 Hormone replacement therapy; Z79.1 Long term (current) use of non-steroidal anti-inflammatories (NSAID); Z79.899 Other long term (current) drug therapy; Z90.49 Acquired absence of other specified parts of digestive tract; Z87.19 Personal history of other diseases of the digestive system; Z87.2 Personal history of diseases of the skin and subcutaneous tissue; Z86.69 Personal history of other diseases of the nervous system and sense organs; Z98.890 Other specified postprocedural states; Z88.8 Allergy status to other drugs, medicaments and biological substances; Z88.5 Allergy status to narcotic agent; Z81.8 Family history of other mental and behavioral disorders; Z82.5 Family history of asthma and other chronic lower respiratory diseases; Z83.3 Family history of diabetes mellitus
CPT/HCPCS: 36415; 74177; 76700; 76830; 80048; 80053; 81001; 81025; 82150; 83690; 85025; 85027; 86140; 87040; 96361; 96374; 96376; 99285

== ENCOUNTER 2020-06-28 16:08 | Emergency (ER) | payer OTHER ==
[2020-06-28 16:12] VITALS: TEMP 98.3
[2020-06-28] MEDS ORDERED: diphenhydrAMINE 50 MG/ML 1 ML VIAL IVP STA (16:21)
[2020-06-28] MEDS ORDERED: KETOROLAC 15 MG/ML 1 ML VIAL IVP STA (16:21)
[2020-06-28] MEDS ORDERED: MORPHINE SULFATE 4 MG/ML SYRINGE IV STA (16:21)
[2020-06-28] MEDS ORDERED: METOCLOPRAMIDE 5 MG/ML 2 ML VIAL IVP STA (16:21)
[2020-06-28] MEDS ORDERED: SODIUM CHLORIDE 0.9% 1,000 ML IV STA (16:21)
--- NOTE | 2020-06-28 16:29 | ED ---
General Adult HPI - General Chief complaint: Headache Stated complaint: Migrane Time Seen by Provider: 06/28/20 16:14 Source: patient, RN notes reviewed, old records reviewed Mode of arrival: ambulatory Limitations: no limitations - History of Present Illness Initial comments: 35-year-old female history of chronic migraine, greater than 10 migraines mon ly presenting for evaluation of headache. Patient states her symptoms are similar to previous migraines however this is lasted 3 days. Should 2 episodes of vomiting which is typical. She has some photophobia. Headache is predominantly right frontal which is typical in location to her normal he adaches. She denies fever. She denies focal numbness or weakness. She denies chest pain or abdominal pain. - Related Data Home Medications Medication Instructions Recorded Confirmed Levothyroxine Sodium [Synthroid] 50 mcg PO DAILY 05/05/14 06/28/20 traZODone HCL [Desyrel] 100 mg PO HS 04/04/15 06/28/20 Topiramate [Trokendi Xr] 200 mg PO DAILY 07/19/17 06/28/20 Venlafaxine HCl [Effexor XR] 225 mg PO HS 07/19/17 06/28/20 HYDROcodone/APAP 7.5-325MG [[place] 1 tab PO BID PRN 03/01/18 06/28/20 7.5-325] rOPINIRole HCL [Requip] 0.5 mg PO HS 01/23/19 06/28/20 Famotidine [Pepcid] 40 mg PO DAILY 07/28/19 06/28/20 Cetirizine HCl [Zyrtec] 10 mg PO DAILY 08/30/19 06/28/20 Erenumab-Aooe [Aimovig 140 mg SQ Q28D 08/30/19 06/28/20 Autoinjector] Pregabalin [Lyrica] 150 mg PO BID 08/30/19 06/28/20 ARIPiprazole [Abilify] 2 mg PO HS 08/31/19 06/28/20 Albuterol Sulfate [Proventil Hfa] 1 puff INHALATION RT-Q4H PRN 04/21/20 06/28/20 [place] Fe 1.5-30 1 tab PO HS 04/21/20 06/28/20 Magnesium Gummies (165mg) 2 tab PO DAILY 04/26/20 06/28/20 Meloxicam 15 mg PO DAILY 06/28/20 06/28/20 Allergies Allergy/AdvReac Type Severity Reaction Status Date / Time tramadol Allergy Hallucinati Verified 06/28/20 17:36 ons valacyclovir HCl AdvReac BLURRED Verified 06/28/20 17:36 [From Valtrex] VISION Review of Systems ROS Statement: Those systems with pertinent positive or pertinent negative responses have been documented in the HPI. ROS Other: All systems not noted in ROS Statement are negative. Past Medical History Past Medical History: Asthma, Fibromyalgia, GERD/Reflux, Musculoskeletal Disorder, Sleep Apnea/CPAP/BIPAP, Thyroid Disorder Additional Past Medical History / Comment(s): Hx Migraines, DDD , IBS, NO CPAP used. HX PERFORATED DIVERTICULITIS W/ PAST Colostomy 12/2017. internal abd hematoma History of Any Multi-Drug Resistant Organisms: None Reported Past Surgical History: Bowel Resection, Breast Surgery, Cholecystectomy, Hernia Repair Additional Past Surgical History / Comment(s): Dental, Rt Breast biopsy. Colostomy 12/2017, THEN Reversal 02/2018. Cholecystectomy - 4-06-01 Past Anesthesia/Blood Transfusion Reactions: No Reported Reaction Past Psychological History: Anxiety, Bipolar, Depression Smoking Status: Never smoker Past Alcohol Use History: Occasional Past Drug Use History: None Reported - Past Family History Mother History Unknown: Yes Family Medical History: COPD Additional Family Medical History / Comment(s): depression, anxiety Brother(s) Family Medical History: Diabetes Mellitus General Exam Limitations: no limitations General appearance: alert, in no apparent distress Head exam: Present: atraumatic, normocephalic Eye exam: Present: normal appearance, PERRL, EOMI ENT exam: Present: mucous membranes dry Neck exam: Present: normal inspection, full ROM. Absent: tenderness, meningismus Respiratory exam: Present: normal lung sounds bilaterally. Absent: respiratory distress, wheezes Cardiovascular Exam: Present: regular rate, normal rhythm GI/Abdominal exam: Present: soft. Absent: distended, tenderness, guarding Neurological exam: Present: alert, oriented X3, CN II-XII intact. Absent: motor sensory deficit Psychiatric exam: Present: normal affect, normal mood Skin exam: Present: warm, dry, intact. Absent: cyanosis, diaphoretic Course Vital Signs 06/28/20 06/28/20 16:10 17:45 Temperature 98.3 F Pulse Rate 82 84 Respiratory 20 18 Rate Blood Pressure 181/89 104/61 O2 Sat by Pulse 99 100 Oximetry - Reevaluation(s) Reevaluation #1: 06/28/20 18:33 Patient reevaluated, resting comfortable, headache nearly completely resolved, vital signs normal. Medical Decision Making - Medical Decision Making 35-year-old female presenting with migraine headache. Headaches similar to typical migraine. Given a cocktail in the emergency department with near complete relief of symptoms. Vital signs stable, nonfocal exam. Did perform a head CT because this patient's headache was significantly worse and after initial round medication did not improve. Head CT was negative for intracranial hemorrhage or mass effect. She does have good outpatient follow-up. She is not driving she's being picked up by her boyfriend. - Lab Data Result diagrams: 06/28/20 16:43 06/28/20 16:43 Lab Results 06/28/20 06/28/20 06/28/20 Range/Units 16:43 16:43 16:43 WBC 13.3 H (3.8-10.6) k/uL RBC 5.13 (3.80-5.40) m/uL Hgb 13.1 (11.4-16.0) gm/dL Hct 41.7 (34.0-46.0) % MCV 81.3 (80.0-100.0) fL MCH 25.5 (25.0-35.0) pg MCHC 31.4 (31.0-37.0) g/dL RDW 15.0 (11.5-15.5) % Plt Count 432 (150-450) k/uL MPV 7.3 Neutrophils % 60 % Lymphocytes % 29 % Monocytes % 5 % Eosinophils % 4 % Basophils % 1 % Neutrophils # 8.0 H (1.3-7.7) k/uL Lymphocytes # 3.8 (1.0-4.8) k/uL Monocytes # 0.6 (0-1.0) k/uL Eosinophils # 0.6 (0-0.7) k/uL Basophils # 0.1 (0-0.2) k/uL Hypochromasia Slight Sodium 139 (137-145) mmol/L Potassium 4.4 (3.5-5.1) mmol/L Chloride 107 (98-107) mmol/L Carbon Dioxide 21 L (22-30) mmol/L Anion Gap 11 mmol/L BUN 19 H (7-17) mg/dL Creatinine 0.80 (0.52-1.04) mg/dL Est GFR (CKD-EPI)AfAm >90 (>60 ml/min/1.73 sqM) Est GFR (CKD-EPI)NonAf >90 (>60 ml/min/1.73 sqM) Glucose 110 H (74-99) mg/dL Calcium 9.7 (8.4-10.2) mg/dL Total Bilirubin 0.3 (0.2-1.3) mg/dL AST 31 (14-36) U/L ALT 36 H (4-34) U/L Alkaline Phosphatase 86 (38-126) U/L Total Protein 7.7 (6.3-8.2) g/dL Albumin 4.2 (3.5-5.0) g/dL Urine Color Light Yellow Urine Appearance Clear (Clear) Urine pH 7.0 (5.0-8.0) Ur Specific [place] 1.021 (1.001-1.035) Urine Protein Negative (Negative) Urine Glucose (UA) Negative (Negative) Urine Ketones Negative (Negative) Urine Blood Negative (Negative) Urine Nitrite Negative (Negative) Urine Bilirubin Negative (Negative) Urine Urobilinogen <2.0 (<2.0) mg/dL Ur Leukocyte Esterase Negative (Negative) Urine HCG, Qual (Not Detectd) 06/28/20 Range/Units 16:43 WBC (3.8-10.6) k/uL RBC (3.80-5.40) m/uL Hgb (11.4-16.0) gm/dL Hct (34.0-46.0) % MCV (80.0-100.0) fL MCH (25.0-35.0) pg MCHC (31.0-37.0) g/dL RDW (11.5-15.5) % Plt Count (150-450) k/uL MPV Neutrophils % % Lymphocytes % % Monocytes % % Eosinophils % % Basophils % % Neutrophils # (1.3-7.7) k/uL Lymphocytes # (1.0-4.8) k/uL Monocytes # (0-1.0) k/uL Eosinophils # (0-0.7) k/uL Basophils # (0-0.2) k/uL Hypochromasia Sodium (137-145) mmol/L Potassium (3.5-5.1) mmol/L Chloride (98-107) mmol/L Carbon Dioxide (22-30) mmol/L Anion Gap mmol/L BUN (7-17) mg/dL Creatinine (0.52-1.04) mg/dL Est GFR (CKD-EPI)AfAm (>60 ml/min/1.73 sqM) Est GFR (CKD-EPI)NonAf (>60 ml/min/1.73 sqM) Glucose (74-99) mg/dL Calcium (8.4-10.2) mg/dL Total Bilirubin (0.2-1.3) mg/dL AST (14-36) U/L ALT (4-34) U/L Alkaline Phosphatase (38-126) U/L Total Protein (6.3-8.2) g/dL Albumin (3.5-5.0) g/dL Urine Color Urine Appearance (Clear) Urine pH (5.0-8.0) Ur Specific [place] (1.001-1.035) Urine Protein (Negative) Urine Glucose (UA) (Negative) Urine Ketones (Negative) Urine Blood (Negative) Urine Nitrite (Negative) Urine Bilirubin (Negative) Urine Urobilinogen (<2.0) mg/dL Ur Leukocyte Esterase (Negative) Urine HCG, Qual Not Detected (Not Detectd) Disposition Clinical Impression: Migraine headache Disposition: HOME SELF-CARE Condition: Good Instructions (If sedation given, give patient instructions): Acute Headache (ED) Is patient prescribed a controlled substance at d/c from ED?: No Referrals: Edgardo Inman MD [Primary Care Provider] - 1-2 days Time of Disposition: 18:47
[2020-06-28 16:56] LABS: Appearance,Urine Clear (Clear); Bilirubin,Urine Negative (Negative); Blood,Urine Negative (Negative); Color,Urine Light Yellow; Glucose,Urine (UA) Negative (Negative); Ketones,Urine Negative (Negative); Leukocyte Esterase,Urine Negative (Negative); Nitrite,Urine Negative (Negative); Protein,Urine Negative (Negative); Specific Gravity,Urine 1.021 (1.001-1.035); Urobilinogen,Urine <2.0 mg/dL (<2.0)
[2020-06-28 16:58] LABS: Basophils # (A) 0.1 k/uL (0-0.2); Basophils % (A) 1 %; Eosinophils # (A) 0.6 k/uL (0-0.7); Eosinophils % (A) 4 %; HCT 41.7 % (34.0-46.0); HGB 13.1 gm/dL (11.4-16.0); Hypochromasia Slight; Lymphocytes # (A) 3.8 k/uL (1.0-4.8); Lymphocytes % (A) 29 %; MCH 25.5 pg (25.0-35.0); MCHC 31.4 g/dL (31.0-37.0); MCV 81.3 fL (80.0-100.0); Mean Platelet Volume 7.3; Monocytes # (A) 0.6 k/uL (0-1.0); Monocytes % (A) 5 %; Neutrophils % (A) 60 %; Platelet Count 432 k/uL (150-450); RBC 5.13 m/uL (3.80-5.40); WBC 13.3 k/uL (3.8-10.6)
[2020-06-28 17:07] LABS: ALT 36 U/L (4-34); AST 31 U/L (14-36); African American GFR (CKD) >90 (>60 ml/min/1.73 sqM); Albumin 4.2 g/dL (3.5-5.0); Alkaline Phosphatase 86 U/L (38-126); Anion Gap 11 mmol/L; Blood Urea Nitrogen 19 mg/dL (7-17); Calcium 9.7 mg/dL (8.4-10.2); Carbon Dioxide 21 mmol/L (22-30); Chloride 107 mmol/L (98-107); Glucose 110 mg/dL (74-99); Non-African American GFR(CKD) >90 (>60 ml/min/1.73 sqM); Potassium 4.4 mmol/L (3.5-5.1); Sodium 139 mmol/L (137-145); Total Bilirubin 0.3 mg/dL (0.2-1.3); Total Protein 7.7 g/dL (6.3-8.2)
[2020-06-28] MEDS ORDERED: SODIUM CHLORIDE 0.9% 500 ML 500 ML IV ONE (17:38)
[2020-06-28] MEDS ORDERED: DEXAMETHASONE SOD PHOSPHATE 10 MG/ML 1 ML VIAL IV STA (17:38)
[2020-06-28 17:46] VITALS: BP 104/61; PULSE 84; RESP 18
--- NOTE | 2020-06-28 18:46 | CT ---
EXAMINATION TYPE: CT brain wo con DATE OF EXAM: 06/28/2020 COMPARISON: 07/20/2017 HISTORY: Headache and weakness. History of migraine. CT DLP: 1119.4 mGycm Automated exposure control for dose reduction was used. Ventricles have normal size. There is no mass effect nor midline shift. There is no sign of intracran ial hemorrhage. Calvarium is intact. Skull base is intact. IMPRESSION: Normal unenhanced head CT scan. No change.
== END 2020-06-28 20:06 | disposition home or self-care (01) ==
LOC: EC 16:08
DX: G43.909 Migraine, unspecified, not intractable, without status migrainosus (principal); F41.9 Anxiety disorder, unspecified; F31.9 Bipolar disorder, unspecified; J45.909 Unspecified asthma, uncomplicated; K21.9 Gastro-esophageal reflux disease without esophagitis; E07.9 Disorder of thyroid, unspecified; G47.33 Obstructive sleep apnea (adult) (pediatric); Z99.89 Dependence on other enabling machines and devices; Z79.890 Hormone replacement therapy; Z79.899 Other long term (current) drug therapy; Z88.6 Allergy status to analgesic agent; Z88.8 Allergy status to other drugs, medicaments and biological substances; Z90.49 Acquired absence of other specified parts of digestive tract
CPT/HCPCS: 36415; 80053; 85025; 81003; 81025; 70450; 99284; 96374; 96375 ×4; 96361 ×2; J2270; J1200; J1100; J2765; J1885

== ENCOUNTER 2020-07-03 13:26 | Inpatient (IN) | payer OTHER ==
[2020-07-03] MEDS ORDERED: MORPHINE SULFATE 4 MG/ML SYRINGE IV STA (13:51)
--- NOTE | 2020-07-03 13:53 | ED ---
General Adult HPI - General Chief complaint: Abdominal Pain Stated complaint: Abd Pain Time Seen by Provider: 07/03/20 13:36 Source: patient Mode of arrival: ambulatory Limitations: no limitations - History of Present Illness Initial comments: Dictation was produced using [employer] dictation software. please excuse any grammatical, word or spelling errors. This patient was cared for during a federal and state declared state of emergency secondary to Covid 19 Chief Complaint: 35-year-old female past medical history of fibromyalgia complex abdominal history presents to the emergency department with severe bilateral lower quadrant abdominal pain. History of Present Illness: She is 35-year-old female she has extensive abdominal history. Patient's history of perforated bowel requiring colostomy placement. She is completely colostomy reversal and has had hernia surgery. She presents with 1 day of severe suprapubic abdominal pain. Patient has a fever constitutional symptoms. Denies any nausea. No diarrhea. Patient called her surgeon today and was instructed to come to the emergency department. Patient takes [place] on a regular basis. She took one of her pain medicines without any significant improvement. The ROS documented in this emergency department record has been reviewed and confirmed by me. Those systems with pertinent positive or negative responses have been documented in the HPI. All other systems are other negative and/or noncontributory. PHYSICAL EXAM: General Impression: Alert and oriented x3, tearful, acute distress secondary to pain HEENT: Normocephalic atraumatic, extra-ocular movements intact, pupils equal and reactive to light bilaterally, mucous membranes moist. Cardiovascular: Heart regular rate and rhythm Chest: Able to complete full sentences, no retractions, no tachypnea Abdomen: abdomen soft, diffuse abdominal tenderness with palpation, non- distended, no organomegaly Musculoskeletal: Pulses present and equal in all extremities, no peripheral edema Motor: no focal deficits noted Neurological: CN II-XII grossly intact, no focal motor or sensory deficits noted Skin: Intact with no visualized rashes Psych: Normal affect and mood ED course: 35-year-old female presents today with acute abdominal pain. Patient has significant intra-abdominal surgical history. Vital signs upon arrival are within acceptable limits. Laboratory evaluation is obtained. There is mild leukocytosis 13.6 likely secondary to stress. Metabolic panel shows mild acidosis. Urinalysis is negative. Rest of labs are unremarkable. Computed tomography scan of the abdomen and pelvis with contrast was obtained showing no change when compared to CT from 2 months ago. Patient still in a lot of pain and requiring IV analgesia. Case is discussed with Dr. Brown who is agreeable for patient being admitted to observation. Patient is agreeable plan. She is still crying at bedside saying that she is having a lot of pain. Patient ordered for more IV analgesia. Patient be admitted for medical monitoring and repeat labs in the morning. - Related Data Home Medications Medication Instructions Recorded Confirmed Levothyroxine Sodium [Synthroid] 50 mcg PO DAILY 05/05/14 07/03/20 traZODone HCL [Desyrel] 100 mg PO HS 04/04/15 07/03/20 Topiramate [Trokendi Xr] 200 mg PO DAILY 07/19/17 07/03/20 Venlafaxine HCl [Effexor XR] 225 mg PO HS 07/19/17 07/03/20 HYDROcodone/APAP 7.5-325MG [[place] 1 tab PO BID PRN 03/01/18 07/03/20 7.5-325] rOPINIRole HCL [Requip] 0.5 mg PO HS 01/23/19 07/03/20 Famotidine [Pepcid] 40 mg PO DAILY 07/28/19 07/03/20 Cetirizine HCl [Zyrtec] 10 mg PO DAILY 08/30/19 07/03/20 Erenumab-Aooe [Aimovig 140 mg SQ Q28D 08/30/19 07/03/20 Autoinjector] Pregabalin [Lyrica] 150 mg PO BID 08/30/19 07/03/20 ARIPiprazole [Abilify] 2 mg PO HS 08/31/19 07/03/20 Albuterol Sulfate [Proventil Hfa] 1 puff INHALATION RT-Q4H PRN 04/21/20 07/03/20 [place] Fe 1.5-30 1 tab PO HS 04/21/20 07/03/20 Magnesium Gummies (165mg) 2 tab PO DAILY 04/26/20 07/03/20 Meloxicam 15 mg PO DAILY 06/28/20 07/03/20 Allergies Allergy/AdvReac Type Severity Reaction Status Date / Time tramadol Allergy Hallucinati Verified 07/03/20 15:08 ons valacyclovir HCl AdvReac BLURRED Verified 07/03/20 15:08 [From Valtrex] VISION Review of Systems ROS Statement: Those systems with pertinent positive or pertinent negative responses have been documented in the HPI. ROS Other: All systems not noted in ROS Statement are negative. Past Medical History Past Medical History: Asthma, Fibromyalgia, GERD/Reflux, Musculoskeletal Disorder, Sleep Apnea/CPAP/BIPAP, Thyroid Disorder Additional Past Medical History / Comment(s): Hx Migraines, DDD , IBS, NO CPAP used. HX PERFORATED DIVERTICULITIS W/ PAST Colostomy 12/2017. internal abd hematoma History of Any Multi-Drug Resistant Organisms: None Reported Past Surgical History: Bowel Resection, Breast Surgery, Cholecystectomy, Hernia Repair Additional Past Surgical History / Comment(s): Dental, Rt Breast biopsy. Colostomy 12/2017, THEN Reversal 02/2018. Cholecystectomy - 08-12-18 Past Anesthesia/Blood Transfusion Reactions: No Reported Reaction Past Psychological History: Anxiety, Bipolar, Depression Smoking Status: Never smoker Past Alcohol Use History: Occasional Past Drug Use History: None Reported - Past Family History Mother History Unknown: Yes Family Medical History: COPD Additional Family Medical History / Comment(s): depression, anxiety Brother(s) Family Medical History: Diabetes Mellitus General Exam Limitations: no limitations Course Vital Signs 07/03/20 13:27 Temperature 97.8 F Pulse Rate 99 Respiratory 22 Rate Blood Pressure 142/94 O2 Sat by Pulse 99 Oximetry Medical Decision Making - Lab Data Result diagrams: 07/03/20 13:47 07/03/20 13:47 Lab Results 07/03/20 07/03/20 07/03/20 Range/Units 13:47 13:47 13:49 WBC 13.6 H (3.8-10.6) k/uL RBC 5.09 (3.80-5.40) m/uL Hgb 13.0 (11.4-16.0) gm/dL Hct 41.4 (34.0-46.0) % MCV 81.4 (80.0-100.0) fL MCH 25.7 (25.0-35.0) pg MCHC 31.5 (31.0-37.0) g/dL RDW 15.1 (11.5-15.5) % Plt Count 422 (150-450) k/uL MPV 7.2 Neutrophils % 65 % Lymphocytes % 26 % Monocytes % 4 % Eosinophils % 3 % Basophils % 1 % Neutrophils # 8.9 H (1.3-7.7) k/uL Lymphocytes # 3.6 (1.0-4.8) k/uL Monocytes # 0.6 (0-1.0) k/uL Eosinophils # 0.4 (0-0.7) k/uL Basophils # 0.1 (0-0.2) k/uL Hypochromasia Slight Sodium 139 (137-145) mmol/L Potassium 4.5 (3.5-5.1) mmol/L Chloride 109 H (98-107) mmol/L Carbon Dioxide 18 L (22-30) mmol/L Anion Gap 12 mmol/L BUN 12 (7-17) mg/dL Creatinine 0.97 (0.52-1.04) mg/dL Est GFR (CKD-EPI)AfAm 87 (>60 ml/min/1.73 sqM) Est GFR (CKD-EPI)NonAf 75 (>60 ml/min/1.73 sqM) Glucose 125 H (74-99) mg/dL Calcium 9.6 (8.4-10.2) mg/dL Total Bilirubin 0.3 (0.2-1.3) mg/dL AST 27 (14-36) U/L ALT 36 H (4-34) U/L Alkaline Phosphatase 91 (38-126) U/L Total Protein 7.4 (6.3-8.2) g/dL Albumin 4.1 (3.5-5.0) g/dL Lipase 292 (23-300) U/L Urine Color Yellow Urine Appearance Cloudy H (Clear) Urine pH 7.0 (5.0-8.0) Ur Specific [place] 1.017 (1.001-1.035) Urine Protein Negative (Negative) Urine Glucose (UA) Negative (Negative) Urine Ketones Negative (Negative) Urine Blood Negative (Negative) Urine Nitrite Negative (Negative) Urine Bilirubin Negative (Negative) Urine Urobilinogen <2.0 (<2.0) mg/dL Ur Leukocyte Esterase Small H (Negative) Urine RBC 1 (0-5) /hpf Urine WBC 4 (0-5) /hpf Ur Squamous Epith Cells 1 (0-4) /hpf Amorphous Sediment Rare H (None) /hpf Urine Bacteria Moderate H (None) /hpf Urine Mucus Rare H (None) /hpf Urine HCG, Qual (Not Detectd) 07/03/20 Range/Units 13:49 WBC (3.8-10.6) k/uL RBC (3.80-5.40) m/uL Hgb (11.4-16.0) gm/dL Hct (34.0-46.0) % MCV (80.0-100.0) fL MCH (25.0-35.0) pg MCHC (31.0-37.0) g/dL RDW (11.5-15.5) % Plt Count (150-450) k/uL MPV Neutrophils % % Lymphocytes % % Monocytes % % Eosinophils % % Basophils % % Neutrophils # (1.3-7.7) k/uL Lymphocytes # (1.0-4.8) k/uL Monocytes # (0-1.0) k/uL Eosinophils # (0-0.7) k/uL Basophils # (0-0.2) k/uL Hypochromasia Sodium (137-145) mmol/L Potassium (3.5-5.1) mmol/L Chloride (98-107) mmol/L Carbon Dioxide (22-30) mmol/L Anion Gap mmol/L BUN (7-17) mg/dL Creatinine (0.52-1.04) mg/dL Est GFR (CKD-EPI)AfAm (>60 ml/min/1.73 sqM) Est GFR (CKD-EPI)NonAf (>60 ml/min/1.73 sqM) Glucose (74-99) mg/dL Calcium (8.4-10.2) mg/dL Total Bilirubin (0.2-1.3) mg/dL AST (14-36) U/L ALT (4-34) U/L Alkaline Phosphatase (38-126) U/L Total Protein (6.3-8.2) g/dL Albumin (3.5-5.0) g/dL Lipase (23-300) U/L Urine Color Urine Appearance (Clear) Urine pH (5.0-8.0) Ur Specific [place] (1.001-1.035) Urine Protein (Negative) Urine Glucose (UA) (Negative) Urine Ketones (Negative) Urine Blood (Negative) Urine Nitrite (Negative) Urine Bilirubin (Negative) Urine Urobilinogen (<2.0) mg/dL Ur Leukocyte Esterase (Negative) Urine RBC (0-5) /hpf Urine WBC (0-5) /hpf Ur Squamous Epith Cells (0-4) /hpf Amorphous Sediment (None) /hpf Urine Bacteria (None) /hpf Urine Mucus (None) /hpf Urine HCG, Qual Not Detected (Not Detectd) Disposition Clinical Impression: Abdominal pain Disposition: ADMITTED IP TO THIS HOSP Condition: Fair Referrals: Edgardo Inman MD [Primary Care Provider] - 1-2 days Decision Time: 15:18
[2020-07-03 13:58] LABS: Basophils # (A) 0.1 k/uL (0-0.2); Basophils % (A) 1 %; Eosinophils # (A) 0.4 k/uL (0-0.7); Eosinophils % (A) 3 %; HCT 41.4 % (34.0-46.0); Hypochromasia Slight; Lymphocytes # (A) 3.6 k/uL (1.0-4.8); Lymphocytes % (A) 26 %; MCH 25.7 pg (25.0-35.0); MCHC 31.5 g/dL (31.0-37.0); MCV 81.4 fL (80.0-100.0); Mean Platelet Volume 7.2; Monocytes # (A) 0.6 k/uL (0-1.0); Monocytes % (A) 4 %; Neutrophils # (A) 8.9 k/uL (1.3-7.7); Neutrophils % (A) 65 %; Platelet Count 422 k/uL (150-450); RBC 5.09 m/uL (3.80-5.40); RDW 15.1 % (11.5-15.5); WBC 13.6 k/uL (3.8-10.6)
[2020-07-03 14:03] LABS: Albumin 4.1 g/dL (3.5-5.0); Calcium 9.6 mg/dL (8.4-10.2); Potassium 4.5 mmol/L (3.5-5.1); Total Bilirubin 0.3 mg/dL (0.2-1.3); Total Protein 7.4 g/dL (6.3-8.2)
[2020-07-03 14:06] LABS: Amorphous Sediment,Urine Rare /hpf; Appearance,Urine Cloudy (Clear); Bacteria,Urine Moderate /hpf; Bilirubin,Urine Negative (Negative); Blood,Urine Negative (Negative); Color,Urine Yellow; Glucose,Urine (UA) Negative (Negative); Ketones,Urine Negative (Negative); Leukocyte Esterase,Urine Small (Negative); Mucus,Urine Rare /hpf; Nitrite,Urine Negative (Negative); Protein,Urine Negative (Negative); RBC,Urine 1 /hpf (0-5); Specific Gravity,Urine 1.017 (1.001-1.035); Squamous Epithelial Cell,Urine 1 /hpf (0-4); Urobilinogen,Urine <2.0 mg/dL (<2.0); WBC,Urine 4 /hpf (0-5)
--- NOTE | 2020-07-03 15:09 | CT ---
EXAMINATION TYPE: CT abdomen pelvis w con DATE OF EXAM: 07/03/2020 COMPARISON: 04/26/2020 HISTORY: Generalized abdominal pain starting today. CT DLP: 2850 mGycm Automated exposure control for dose reduction was used. CONTRAST: Performed with IV Contrast, patient injected with 100ml mL of Isovue 300. Lung bases are clear. There is no pleural effusion. Heart size is normal. There is no pericardial eff usion. There are clips from cholecystectomy. Liver spleen stomach pancreas appear intact. Bile ducts are not dilated. There is no adrenal mass. Kidneys show satisfactory contrast opacification. There is no hydronephrosi s. Ureters are not dilated. Delayed images show normal renal excretion. There is no retroperitoneal a denopathy. Bladder distends smoothly. There is no inguinal hernia. There is no evidence of a pelvic mass. There is no free fluid in the pelvis. Appendix is posterior an d appears normal. There is increased density in the subcutaneous fat over the anterior lower abdomen unchanged and cons istent with scar tissue at the umbilicus that measures 9 x 3.5 cm. Lumbar vertebra have normal alignment. There is mild anterior spurring at L2-3. The posterior element s are intact. There is no compression fracture. Bony pelvis is intact. There is no mesenteric edema. There is no ascites or free air. There is no bowel obstruction. IMPRESSION: No acute abnormality within the abdomen pelvis. Postsurgical changes apparently from umbilical hernia surgery on the anterior lower abdominal wall with scar tissue not changed compared to old exam. I do not think this is chronic hematoma and view of the lack of change of the appearance
[2020-07-03] MEDS ORDERED: HYDROmorphone 0.5 MG/0.5 ML SYRINGE IVP STA (15:11)
[2020-07-03] MEDS ORDERED: ACETAMINOPHEN TAB 325 MG TAB PO PRN (15:18)
[2020-07-03] MEDS ORDERED: NALOXONE 0.4 MG/ML 1 ML VIAL IV PRN (15:18)
[2020-07-03] MEDS: SODIUM CHLORIDE 0.9% 1,000 ML IV SCH ×2 (15:31→21:11)
[2020-07-03] MEDS ORDERED: SODIUM CHLORIDE 0.9% 1,000 ML IV ONE (17:53)
[2020-07-03] MEDS ORDERED: ALBUTEROL NEBULIZED 2.5 MG/3 ML INHALATION PRN (18:16)
[2020-07-03] MEDS: HYDROmorphone 0.5 MG/0.5 ML SYRINGE IVP PRN ×2 (18:50→22:12)
[2020-07-03] MEDS: PREGABALIN 75 MG CAP PO SCH (21:08)
[2020-07-03] MEDS: ARIPiprazole 2 MG TAB PO SCH (21:08)
[2020-07-03] MEDS: traZODone HCL 100 MG TAB PO SCH (21:09)
[2020-07-03] MEDS: VENLAFAXINE HCL ER 75 MG CAP PO SCH (21:09)
[2020-07-03] MEDS: ONDANSETRON 4 MG/2 ML VIAL IVP PRN (22:17)
[2020-07-04 06:22] LABS: Basophils % (A) 0 %; Eosinophils # (A) 0.4 k/uL (0-0.7); Eosinophils % (A) 3 %; HGB 12.1 gm/dL (11.4-16.0); Hypochromasia Moderate; Lymphocytes # (A) 2.9 k/uL (1.0-4.8); Lymphocytes % (A) 26 %; MCV 83.8 fL (80.0-100.0); Mean Platelet Volume 7.2; Monocytes # (A) 0.4 k/uL (0-1.0); Monocytes % (A) 4 %; Neutrophils # (A) 7.4 k/uL (1.3-7.7); Neutrophils % (A) 66 %; Platelet Count 316 k/uL (150-450); RBC 4.65 m/uL (3.80-5.40); RDW 15.3 % (11.5-15.5); WBC 11.2 k/uL (3.8-10.6)
[2020-07-04 06:28] LABS: ALT 28 U/L (4-34); AST 28 U/L (14-36); African American GFR (CKD) >90 (>60 ml/min/1.73 sqM); Albumin 3.3 g/dL (3.5-5.0); Alkaline Phosphatase 79 U/L (38-126); Anion Gap 8 mmol/L; Blood Urea Nitrogen 15 mg/dL (7-17); Carbon Dioxide 22 mmol/L (22-30); Chloride 108 mmol/L (98-107); Glucose 112 mg/dL (74-99); Non-African American GFR(CKD) >90 (>60 ml/min/1.73 sqM); Potassium 4.7 mmol/L (3.5-5.1); Sodium 138 mmol/L (137-145); Total Bilirubin 0.4 mg/dL (0.2-1.3); Total Protein 6.3 g/dL (6.3-8.2)
[2020-07-04] MEDS: HYDROmorphone 0.5 MG/0.5 ML SYRINGE IVP PRN ×5 (06:31→21:59)
[2020-07-04] MEDS: LEVOTHYROXINE 50 MCG TAB PO SCH (06:31)
[2020-07-04] MEDS: ONDANSETRON 4 MG/2 ML VIAL IVP PRN ×2 (06:31→18:47)
[2020-07-04] MEDS: SODIUM CHLORIDE 0.9% 1,000 ML IV SCH ×3 (06:31→21:23)
[2020-07-04] MEDS: TOPIRAMATE 100 MG TAB PO SCH ×2 (07:43→21:24)
[2020-07-04] MEDS: MELOXICAM 7.5 MG TAB PO SCH (07:43)
[2020-07-04] MEDS: FAMOTIDINE 20 MG TAB PO SCH (07:43)
[2020-07-04] MEDS: LORATADINE 10 MG TAB PO SCH (07:43)
[2020-07-04] MEDS: PREGABALIN 75 MG CAP PO SCH ×2 (08:45→21:24)
--- NOTE | 2020-07-04 09:37 | P.GSHP ---
History of Present Illness H&P Date: 07/04/20 Chief Complaint: Abdominal pain 35-year-old female presented yesterday to the ER with complaints of acute onset mid abdominal discomfort. Says it reminds her of when she had an infected hematoma previously. White blood cell count slightly elevated in the ER at 13.6 it is now down to 11.2. Lactic acid was initially 2.5 it is now 2.2 last night. CAT scan shows scarring at the site of previous hematoma without acute changes noted. Patient is hungry. She is afebrile. Patient says the pain was like a stabbing sensation. It is somewhat improved. - Review of Systems Comment: The patient denies any acute changes in vision or hearing, no dysphagia or odynophagia, no chest pain or shortness of breath, no dysuria or hematuria, no headache, no runny nose, no rectal bleeding or melena, no unexplained weight loss Past Medical History Past Medical History: Asthma, Fibromyalgia, GERD/Reflux, Musculoskeletal Disorder, Sleep Apnea/CPAP/BIPAP, Thyroid Disorder Additional Past Medical History / Comment(s): Hx Migraines, DDD , IBS, NO CPAP used. HX PERFORATED DIVERTICULITIS W/ PAST Colostomy 12/2017. internal abd hematoma History of Any Multi-Drug Resistant Organisms: None Reported Past Surgical History: Bowel Resection, Breast Surgery, Cholecystectomy, Hernia Repair Additional Past Surgical History / Comment(s): Dental, Rt Breast biopsy. Colostomy 12/2017, THEN Reversal 02/2018. Cholecystectomy - 08-12-18 Past Anesthesia/Blood Transfusion Reactions: No Reported Reaction Past Psychological History: Anxiety, Bipolar, Depression Additional Psychological History / Comment(s): eating disorder-binge eater Smoking Status: Never smoker Past Alcohol Use History: Occasional Past Drug Use History: None Reported - Past Family History Mother History Unknown: Yes Family Medical History: COPD Additional Family Medical History / Comment(s): depression, anxiety Brother(s) Family Medical History: Diabetes Mellitus Father Family Medical History: Unable to Obtain Medications and Allergies Home Medications Medication Instructions Recorded Confirmed Type Levothyroxine Sodium [Synthroid] 50 mcg PO DAILY 05/05/14 07/03/20 History traZODone HCL [Desyrel] 100 mg PO HS 04/04/15 07/03/20 History Topiramate [Trokendi Xr] 200 mg PO DAILY 07/19/17 07/03/20 History Venlafaxine HCl [Effexor XR] 225 mg PO HS 07/19/17 07/03/20 History HYDROcodone/APAP 7.5-325MG [[place] 1 tab PO BID PRN 03/01/18 07/03/20 History 7.5-325] rOPINIRole HCL [Requip] 0.5 mg PO HS 01/23/19 07/03/20 History Famotidine [Pepcid] 40 mg PO DAILY 07/28/19 07/03/20 History Cetirizine HCl [Zyrtec] 10 mg PO DAILY 08/30/19 07/03/20 History Erenumab-Aooe [Aimovig 140 mg SQ Q28D 08/30/19 07/03/20 History Autoinjector] Pregabalin [Lyrica] 150 mg PO BID 08/30/19 07/03/20 History ARIPiprazole [Abilify] 2 mg PO HS 08/31/19 07/03/20 History Albuterol Sulfate [Proventil Hfa] 1 puff INHALATION RT-Q4H PRN 04/21/20 07/03/20 History [place] Fe 1.5-30 1 tab PO HS 04/21/20 07/03/20 History Magnesium Gummies (165mg) 2 tab PO DAILY 04/26/20 07/03/20 History Meloxicam 15 mg PO DAILY 06/28/20 07/03/20 History Allergies Allergy/AdvReac Type Severity Reaction Status Date / Time tramadol Allergy Hallucinati Verified 07/03/20 15:08 ons valacyclovir HCl AdvReac BLURRED Verified 07/03/20 15:08 [From Valtrex] VISION Surgical - Exam Vital Signs Temp Pulse Resp BP Pulse Ox 97.8 F 99 22 142/94 99 07/03/20 13:27 07/03/20 13:27 07/03/20 13:27 07/03/20 13:27 07/03/20 13:27 Physical exam: General: Well-developed, well-nourished HEENT: Normocephalic, sclerae nonicteric Abdomen: Multiple scars noted, no fascial defect palpable, mid abdominal tenderness, nondistended Extremities: No edema Neuro: Alert and oriented Results - Labs 07/04/20 05:29 07/04/20 05:29 Abnormal Lab Results - Last 24 Hours (Table) 07/03/20 07/03/20 07/03/20 Range/Units 13:47 13:47 13:49 WBC 13.6 H (3.8-10.6) k/uL Neutrophils # 8.9 H (1.3-7.7) k/uL Chloride 109 H (98-107) mmol/L Carbon Dioxide 18 L (22-30) mmol/L Glucose 125 H (74-99) mg/dL Plasma Lactic Acid [place] (0.7-2.0) mmol/L ALT 36 H (4-34) U/L Albumin (3.5-5.0) g/dL Urine Appearance Cloudy H (Clear) Ur Leukocyte Esterase Small H (Negative) Amorphous Sediment Rare H (None) /hpf Urine Bacteria Moderate H (None) /hpf Urine Mucus Rare H (None) /hpf 07/03/20 07/03/20 07/04/20 Range/Units 15:37 18:49 05:29 WBC 11.2 H (3.8-10.6) k/uL Neutrophils # (1.3-7.7) k/uL Chloride (98-107) mmol/L Carbon Dioxide (22-30) mmol/L Glucose (74-99) mg/dL Plasma Lactic Acid [place] 2.5 H* 2.2 H* (0.7-2.0) mmol/L ALT (4-34) U/L Albumin (3.5-5.0) g/dL Urine Appearance (Clear) Ur Leukocyte Esterase (Negative) Amorphous Sediment (None) /hpf Urine Bacteria (None) /hpf Urine Mucus (None) /hpf 07/04/20 Range/Units 05:29 WBC (3.8-10.6) k/uL Neutrophils # (1.3-7.7) k/uL Chloride 108 H (98-107) mmol/L Carbon Dioxide (22-30) mmol/L Glucose 112 H (74-99) mg/dL Plasma Lactic Acid [place] (0.7-2.0) mmol/L ALT (4-34) U/L Albumin 3.3 L (3.5-5.0) g/dL Urine Appearance (Clear) Ur Leukocyte Esterase (Negative) Amorphous Sediment (None) /hpf Urine Bacteria (None) /hpf Urine Mucus (None) /hpf Diabetes panel 07/03/20 07/04/20 Range/Units 13:47 05:29 Sodium 139 138 (137-145) mmol/L Potassium 4.5 4.7 (3.5-5.1) mmol/L Chloride 109 H 108 H (98-107) mmol/L Carbon Dioxide 18 L 22 (22-30) mmol/L BUN 12 15 (7-17) mg/dL Creatinine 0.97 0.74 (0.52-1.04) mg/dL Glucose 125 H 112 H (74-99) mg/dL Calcium 9.6 9.0 (8.4-10.2) mg/dL AST 27 28 (14-36) U/L ALT 36 H 28 (4-34) U/L Alkaline Phosphatase 91 79 (38-126) U/L Total Protein 7.4 6.3 (6.3-8.2) g/dL Albumin 4.1 3.3 L (3.5-5.0) g/dL Calcium panel 07/03/20 07/04/20 Range/Units 13:47 05:29 Calcium 9.6 9.0 (8.4-10.2) mg/dL Albumin 4.1 3.3 L (3.5-5.0) g/dL Pituitary panel 07/03/20 07/04/20 Range/Units 13:47 05:29 Sodium 139 138 (137-145) mmol/L Potassium 4.5 4.7 (3.5-5.1) mmol/L Chloride 109 H 108 H (98-107) mmol/L Carbon Dioxide 18 L 22 (22-30) mmol/L BUN 12 15 (7-17) mg/dL Creatinine 0.97 0.74 (0.52-1.04) mg/dL Glucose 125 H 112 H (74-99) mg/dL Calcium 9.6 9.0 (8.4-10.2) mg/dL Adrenal panel 07/03/20 07/04/20 Range/Units 13:47 05:29 Sodium 139 138 (137-145) mmol/L Potassium 4.5 4.7 (3.5-5.1) mmol/L Chloride 109 H 108 H (98-107) mmol/L Carbon Dioxide 18 L 22 (22-30) mmol/L BUN 12 15 (7-17) mg/dL Creatinine 0.97 0.74 (0.52-1.04) mg/dL Glucose 125 H 112 H (74-99) mg/dL Calcium 9.6 9.0 (8.4-10.2) mg/dL Total Bilirubin 0.3 0.4 (0.2-1.3) mg/dL AST 27 28 (14-36) U/L ALT 36 H 28 (4-34) U/L Alkaline Phosphatase 91 79 (38-126) U/L Total Protein 7.4 6.3 (6.3-8.2) g/dL Albumin 4.1 3.3 L (3.5-5.0) g/dL Assessment and Plan (1) Abdominal pain Narrative/Plan: 35-year-old female with acute onset mid abdominal pain associated with leukocytosis and acidosis. Patient seems to be improving. Continue IV analgesics. Begin clear liquid diet. Recheck labs tomorrow. Current Visit: Yes Status: Chronic Code(s): R10.9 - UNSPECIFIED ABDOMINAL PAIN SNOMED Code(s): 86266089
[2020-07-04] MEDS: HEPARIN SODIUM,PORCINE 5,000 UNIT/ML 1 ML VIAL SQ SCH ×2 (16:15→23:15)
--- NOTE | 2020-07-04 19:04 | P.CONS ---
History of Present Illness - Reason for Consult Consult date: 07/04/20 Medical management Requesting physician: Brayan Meadows - Chief Complaint Abdominal pain - History of Present Illness - Chief Complaint Lower abdominal pain pain Consultation: This is a very pleasant 35-year-old patient of Dr. Edgardo Inman. Chronic stable medical conditions include asthma, fibromyalgia, GERD, obstructive sleep apnea does not use a CPAP, hypothyroid. Patient has rather extensive medical history. Patient had a perforated diverticulitis with a colostomy in December 2017. Then a reversal February 2018. Had a cholecystectomy in August 2018. Also had incisional hernia repair 2019. admitted from April 22 to April 24. Computed tomography scan of the abdomen showed a possible hematoma. Treated for UTI. Also fibromuscular skeletal pain. Was discharged. Getting better. Readmitted on April 28. Pain felt to be nonspecific. Workup was negative. Yesterday patient was sitting on a wheelchair when she developed severe pain in the lower abdomen going across. No fever no chills. No urinary or bowel symptoms. Minimal nausea. No fever no chills. Not related to position. It appears to be more superficial. No skin changes noted. Review of systems: GEN.: None EYES: None HEENT: None NECK: None RESPIRATORY: None CARDIOVASCULAR: None GASTROINTESTINAL: As above GENITOURINARY: A regular menstrual cycle MUSCULOSKELETAL: Joint or muscle pains LYMPHATICS: None HEMATOLOGICAL: None PSYCHIATRY: None NEUROLOGICAL: None Past medical history to include: Asthma, fibromyalgia, GERD, SLEEP apnea does not use CPAP, irritable bowel syndrome, hypothyroid migraines perforated diverticulum with colostomy that was reversed, bipolar disorder Social history: Does not smoke or drink alcohol. Lives with her boyfriend. Works at the [employer] center at [employer] Physical examination: VITAL SIGNS: 98.1, 89, 18, 128/66, 97% room air GENERAL: BMI 48.3, laying in bed, appears a bit uncomfortable EYES: Pupils equal. Conjunctiva normal. HEENT: External appearance of nose and ears normal, oral cavity grossly normal. NECK: JVD not raised; masses not palpable. HEART: First and second heart sounds are normal; no edema. LUNGS: Respiratory rate normal; clear to auscultation. ABDOMEN: Soft, there is some superficial tenderness across the midline in the lower half of the abdomen no guarding rigidity, liver spleen not palpable, no masses palpable. PSYCH: Alert and oriented x3; mood and affect uncomfortable. NEUROLOGICAL: Cranial nerves grossly intact; no facial asymmetry, power and sensation grossly intact. LYMPHATICS: No lymph nodes palpable in the axilla and neck INVESTIGATIONS, reviewed in the clinical context: White count 13.6 hemoglobin 13 platelets 422 potassium 4.5 creatinine 0.97 Urine hCG not detected Computed tomography scan of the abdomen and pelvis-unremarkable except for scar tissue Assessment and plan: -This is a patient who presented with lower abdominal pain. Patient had 2 prior admissions in April although workup was unremarkable. Patient's pain is rather superficial in the muscle and the skin likely that may qualify as a hypersensitivity skin. No data multiple skin scars from abdominal surgery. Patient is already on Lyrica that'll help with any neurological pain. We will try the patient on a heating pad an abdominal binder. Otherwise has no fever no chills no GI or urinary symptoms. -Intermittent asthma, uses albuterol when necessary -Chronic fibromyalgia, continue with meloxicam, [place] when necessary -GERD, use Pepcid -Obstructive sleep apnea does not use a CPAP machine -Irritable bowel syndrome, may use Metamucil as needed -Hypothyroid, continue Synthroid -Morbid obesity BMI 48.3, see dietitian and outpatient follow-up with PCP for weight loss measures Care was discussed with the patient and we will see how patient does with a heating pad an abdominal binder. I do not see any indication for antibiotics at the present time. Thank you Dr. Meadows Past Medical History Past Medical History: Asthma, Fibromyalgia, GERD/Reflux, Musculoskeletal Disorder, Sleep Apnea/CPAP/BIPAP, Thyroid Disorder Additional Past Medical History / Comment(s): Hx Migraines, DDD , IBS, NO CPAP used. HX PERFORATED DIVERTICULITIS W/ PAST Colostomy 12/2017. internal abd hem atoma History of Any Multi-Drug Resistant Organisms: None Reported Past Surgical History: Bowel Resection, Breast Surgery, Cholecystectomy, Hernia Repair Additional Past Surgical History / Comment(s): Dental, Rt Breast biopsy. Colostomy 12/2017, THEN Reversal 02/2018. Cholecystectomy - 08-12-18 Past Anesthesia/Blood Transfusion Reactions: No Reported Reaction Past Psychological History: Anxiety, Bipolar, Depression Additional Psychological History / Comment(s): eating disorder-binge eater Smoking Status: Never smoker Past Alcohol Use History: Occasional Past Drug Use History: None Reported - Past Family History Mother History Unknown: Yes Family Medical History: COPD Additional Family Medical History / Comment(s): depression, anxiety Brother(s) Family Medical History: Diabetes Mellitus Father Family Medical History: Unable to Obtain Medications and Allergies Home Medications Medication Instructions Recorded Confirmed Type Levothyroxine Sodium [Synthroid] 50 mcg PO DAILY 05/05/14 07/03/20 History traZODone HCL [Desyrel] 100 mg PO HS 04/04/15 07/03/20 History Topiramate [Trokendi Xr] 200 mg PO DAILY 07/19/17 07/03/20 History Venlafaxine HCl [Effexor XR] 225 mg PO HS 07/19/17 07/03/20 History HYDROcodone/APAP 7.5-325MG [[place] 1 tab PO BID PRN 03/01/18 07/03/20 History 7.5-325] rOPINIRole HCL [Requip] 0.5 mg PO HS 01/23/19 07/03/20 History Famotidine [Pepcid] 40 mg PO DAILY 07/28/19 07/03/20 History Cetirizine HCl [Zyrtec] 10 mg PO DAILY 08/30/19 07/03/20 History Erenumab-Aooe [Aimovig 140 mg SQ Q28D 08/30/19 07/03/20 History Autoinjector] Pregabalin [Lyrica] 150 mg PO BID 08/30/19 07/03/20 History ARIPiprazole [Abilify] 2 mg PO HS 08/31/19 07/03/20 History Albuterol Sulfate [Proventil Hfa] 1 puff INHALATION RT-Q4H PRN 04/21/20 07/03/20 History [place] Fe 1.5-30 1 tab PO HS 04/21/20 07/03/20 History Magnesium Gummies (165mg) 2 tab PO DAILY 04/26/20 07/03/20 History Meloxicam 15 mg PO DAILY 06/28/20 07/03/20 History Allergies Allergy/AdvReac Type Severity Reaction Status Date / Time tramadol Allergy Hallucinati Verified 07/03/20 15:08 ons valacyclovir HCl AdvReac BLURRED Verified 07/03/20 15:08 [From Valtrex] VISION Physical Exam Vitals: Vital Signs Temp Pulse Pulse Resp BP BP Pulse Ox 07/04/20 07:43 98.1 F 89 18 128/66 97 07/04/20 02:29 97.4 F L 60 16 95/58 95 07/03/20 20:00 97.8 F 60 18 108/72 96 07/03/20 17:09 98.2 F 78 18 124/82 95 07/03/20 16:49 67 18 102/73 98 07/03/20 15:36 81 18 120/82 98 07/03/20 13:27 97.8 F 99 22 142/94 99 Intake and Output 07/03/20 07/04/20 07/04/20 22:59 06:59 14:59 Intake Total 140 2000 Balance 140 2000 Intake: Intake, IV Titration 140 2000 Amount Sodium Chloride 0.9% 1, 140 1000 000 ml @ 140 mls/hr IV . Q7H9M [facility] Rx#:[id number] Sodium Chloride 0.9% 1, 1000 000 ml @ 999 mls/hr IV . Q1H1M [facility] Rx#:[id number] Oral 0 Other: # Voids 1 3 Weight 139.9 kg Results CBC & Chem 7: 07/04/20 05:29 07/04/20 05:29 Labs: Abnormal Lab Results - Last 24 Hours (Table) 07/03/20 07/03/20 07/03/20 Range/Units 13:47 13:47 13:49 WBC 13.6 H (3.8-10.6) k/uL Neutrophils # 8.9 H (1.3-7.7) k/uL Chloride 109 H (98-107) mmol/L Carbon Dioxide 18 L (22-30) mmol/L Glucose 125 H (74-99) mg/dL Plasma Lactic Acid [place]obani (0.7-2.0) mmol/L ALT 36 H (4-34) U/L Albumin (3.5-5.0) g/dL Urine Appearance Cloudy H (Clear) Ur Leukocyte Esterase Small H (Negative) Amorphous Sediment Rare H (None) /hpf Urine Bacteria Moderate H (None) /hpf Urine Mucus Rare H (None) /hpf 07/03/20 07/03/20 07/04/20 Range/Units 15:37 18:49 05:29 WBC 11.2 H (3.8-10.6) k/uL Neutrophils # (1.3-7.7) k/uL Chloride (98-107) mmol/L Carbon Dioxide (22-30) mmol/L Glucose (74-99) mg/dL Plasma Lactic Acid [place]obani 2.5 H* 2.2 H* (0.7-2.0) mmol/L ALT (4-34) U/L Albumin (3.5-5.0) g/dL Urine Appearance (Clear) Ur Leukocyte Esterase (Negative) Amorphous Sediment (None) /hpf Urine Bacteria (None) /hpf Urine Mucus (None) /hpf 07/04/20 Range/Units 05:29 WBC (3.8-10.6) k/uL Neutrophils # (1.3-7.7) k/uL Chloride 108 H (98-107) mmol/L Carbon Dioxide (22-30) mmol/L Glucose 112 H (74-99) mg/dL Plasma Lactic Acid [place]obani (0.7-2.0) mmol/L ALT (4-34) U/L Albumin 3.3 L (3.5-5.0) g/dL Urine Appearance (Clear) Ur Leukocyte Esterase (Negative) Amorphous Sediment (None) /hpf Urine Bacteria (None) /hpf Urine Mucus (None) /hpf
[2020-07-04] MEDS: traZODone HCL 100 MG TAB PO SCH (21:24)
[2020-07-04] MEDS: VENLAFAXINE HCL ER 75 MG CAP PO SCH (21:24)
[2020-07-04] MEDS: ARIPiprazole 2 MG TAB PO SCH (21:24)
[2020-07-05] MEDS: SODIUM CHLORIDE 0.9% 1,000 ML IV SCH ×3 (03:01→15:58)
[2020-07-05 06:18] LABS: Basophils % (A) 1 %; Eosinophils # (A) 0.3 k/uL (0-0.7); Eosinophils % (A) 3 %; HCT 35.6 % (34.0-46.0); HGB 11.1 gm/dL (11.4-16.0); Hypochromasia Marked; Lymphocytes # (A) 2.6 k/uL (1.0-4.8); Lymphocytes % (A) 30 %; MCH 25.9 pg (25.0-35.0); MCHC 31.3 g/dL (31.0-37.0); MCV 82.8 fL (80.0-100.0); Mean Platelet Volume 7.2; Monocytes # (A) 0.4 k/uL (0-1.0); Monocytes % (A) 4 %; Neutrophils # (A) 5.4 k/uL (1.3-7.7); Neutrophils % (A) 62 %; Platelet Count 283 k/uL (150-450); RDW 15.2 % (11.5-15.5); WBC 8.7 k/uL (3.8-10.6)
[2020-07-05 06:29] LABS: African American GFR (CKD) >90 (>60 ml/min/1.73 sqM); Anion Gap 4 mmol/L; Blood Urea Nitrogen 10 mg/dL (7-17); Calcium 8.6 mg/dL (8.4-10.2); Carbon Dioxide 23 mmol/L (22-30); Chloride 109 mmol/L (98-107); Glucose 83 mg/dL (74-99); Non-African American GFR(CKD) >90 (>60 ml/min/1.73 sqM); Potassium 4.4 mmol/L (3.5-5.1); Sodium 136 mmol/L (137-145)
[2020-07-05] MEDS: LEVOTHYROXINE 50 MCG TAB PO SCH (06:44)
[2020-07-05] MEDS: HYDROmorphone 0.5 MG/0.5 ML SYRINGE IVP PRN ×4 (07:56→20:32)
[2020-07-05] MEDS: ONDANSETRON 4 MG/2 ML VIAL IVP PRN (07:56)
[2020-07-05] MEDS: FAMOTIDINE 20 MG TAB PO SCH (07:57)
[2020-07-05] MEDS: PREGABALIN 75 MG CAP PO SCH ×2 (07:57→20:31)
[2020-07-05] MEDS: MELOXICAM 7.5 MG TAB PO SCH (07:58)
[2020-07-05] MEDS: TOPIRAMATE 100 MG TAB PO SCH ×2 (07:58→21:33)
[2020-07-05] MEDS: LORATADINE 10 MG TAB PO SCH (07:58)
[2020-07-05] MEDS: HEPARIN SODIUM,PORCINE 5,000 UNIT/ML 1 ML VIAL SQ SCH ×3 (07:58→23:48)
--- NOTE | 2020-07-05 11:40 | P.PN ---
Subjective Progress Note Date: 07/05/20 CHIEF COMPLAINT: Abdominal pain HISTORY OF PRESENT ILLNESS: Patient complaining of left lower abdominal pain. Initially when she presented the pain was across the lower abdomen. That right- sided pain has shown improvement. She describes the pain is sharp. Prior to that it had been a charley horse type of pain. She has been having some nausea. She is passing gas. Denies any bowel movement. Afebrile. WBC has normalized at 8.7 Hgb 11.1 PHYSICAL EXAM: VITAL SIGNS: Reviewed. GENERAL: Well-developed in no acute distress. HEENT: No sclera icterus. Extraocular movements grossly intact. Moist buccal mucosa. Head is atraumatic, normocephalic. ABDOMEN: Soft. Nondistended. Tenderness in the left lower abdomen. Multiple scars healed. No erythema NEUROLOGIC: Alert and oriented. Cranial nerves II through XII grossly intact. ASSESSMENT: 1. Abdominal pain with leukocytosis and acidosis. PLAN: -Continue clear liquid diet -Continue pain medication -Continue antiemetics -Continue IV fluids -Encourage patient to ambulate and increase activity -GI prophylaxis Pepcid and DVT prophylaxis subcu heparin Physician Blind Slat Stapling Machine Operator note has been reviewed by physician. Signing provider agrees with the documented findings, assessment, and plan of care. Objective - Vital Signs Vital signs: Vital Signs Temp 98.0 F 07/05/20 08:16 Pulse 87 07/05/20 08:16 Resp 16 07/05/20 08:16 BP 138/83 07/05/20 08:16 Pulse Ox 97 07/05/20 08:16 Intake & Output 07/04/20 07/05/20 07/05/20 18:59 06:59 18:59 Intake Total 2400 2500 Balance 2400 2500 Intake: Intake, IV Titration 1400 2000 Amount Sodium Chloride 0.9% 1, 1400 2000 000 ml @ 140 mls/hr IV . Q7H9M [facility] Rx#:[id number] Oral 1000 500 Other: # Voids 3 4 1 - Labs CBC & Chem 7: 07/05/20 05:29 07/05/20 05:29 Labs: Abnormal Lab Results - Last 24 Hours (Table) 07/05/20 07/05/20 Range/Units 05:29 05:29 Hgb 11.1 L (11.4-16.0) gm/dL Sodium 136 L (137-145) mmol/L Chloride 109 H (98-107) mmol/L
[2020-07-05] MEDS: VENLAFAXINE HCL ER 75 MG CAP PO SCH (20:31)
[2020-07-05] MEDS: ARIPiprazole 2 MG TAB PO SCH (20:31)
[2020-07-05] MEDS: traZODone HCL 100 MG TAB PO SCH (20:32)
--- NOTE | 2020-07-05 23:10 | P.PN ---
Progress Note - Text Progress Note Date: 07/05/20 - Chief Complaint Lower abdominal pain pain Consultation: This is a very pleasant 35-year-old patient of Dr. Edgardo Inman. Chronic stable medical conditions include asthma, fibromyalgia, GERD, obstructive sleep apnea does not use a CPAP, hypothyroid. Patient has rather extensive medical history. Patient had a perforated diverticulitis with a colostomy in December 2017. Then a reversal February 2018. Had a cholecystectomy in August 2018. Also had incisional hernia repair 2019. admitted from April 22 to April 24. Computed tomography scan of the abdomen showed a possible hematoma. Treated for UTI. Also fibromuscular skeletal pain. Was discharged. Getting better. Readmitted on April 28. Pain felt to be nonspecific. Workup was negative. Yesterday patient was sitting on a wheelchair when she developed severe pain in the lower abdomen going across. No fever no chills. No urinary or bowel symptoms. Minimal nausea. No fever no chills. Not related to position. It appears to be more superficial. No skin changes noted. Patient pain felt to be either neurogenic or muscular. Given his presentation. Today-sitting up in bed. Pain is slightly better but present on the left side. No nausea vomiting. Able to tolerate some diet. No fever no chills. Had a lengthy talk with the patient. Review of systems: Was done for constitutional, cardiovascular, GI, pulmonary. relevant finding as above Active Medications Acetaminophen (Acetaminophen Tab 325 Mg Tab) 650 mg PO Q6HR PRN PRN Reason: Mild Pain or Fever > 100.5 Albuterol Sulfate (Albuterol Nebulized 2.5 Mg/3 Ml) 2.5 mg INHALATION RT-Q4H PRN PRN Reason: Shortness Of Breath Aripiprazole (Aripiprazole 2 Mg Tab) 2 mg PO HS [facility] Last Admin: 07/05/20 20:31 Dose: 2 mg Documented by: Famotidine (Famotidine 20 Mg Tab) 40 mg PO DAILY [facility] Last Admin: 07/05/20 07:57 Dose: 40 mg Documented by: Heparin Sodium (Porcine) (Heparin Sodium,Porcine 5,000 Unit/Ml 1 Ml Vial) 5,000 unit SQ Q8HR [facility] Last Admin: 07/05/20 15:34 Dose: 5,000 unit Documented by: Hydromorphone HCl (Hydromorphone 0.5 Mg/0.5 Ml Syringe) 0.5 mg IVP Q3HR PRN PRN Reason: Moderate Pain Last Admin: 07/05/20 20:32 Dose: 0.5 mg Documented by: Sodium Chloride (Saline 0.9%) 1,000 mls @ 140 mls/hr IV .Q7H9M [facility] Last Admin: 07/05/20 15:58 Dose: 140 mls/hr Documented by: Levothyroxine Sodium (Levothyroxine 50 Mcg Tab) 50 mcg PO DAILY@0630 [facility] Last Admin: 07/05/20 06:44 Dose: 50 mcg Documented by: Loratadine (Loratadine 10 Mg Tab) 10 mg PO DAILY [facility] Last Admin: 07/05/20 07:58 Dose: 10 mg Documented by: Meloxicam (Meloxicam 7.5 Mg Tab) 15 mg PO DAILY [facility] Last Admin: 07/05/20 07:58 Dose: 15 mg Documented by: Naloxone HCl (Naloxone 0.4 Mg/Ml 1 Ml Vial) 0.2 mg IV Q2M PRN PRN Reason: Opioid Reversal Ondansetron HCl (Ondansetron 4 Mg/2 Ml Vial) 4 mg IVP Q8HR PRN PRN Reason: Nausea And Vomiting Last Admin: 07/05/20 07:56 Dose: 4 mg Documented by: Pregabalin (Pregabalin 75 Mg Cap) 150 mg PO BID [facility] Last Admin: 07/05/20 20:31 Dose: 150 mg Documented by: Ropinirole HCl (Ropinirole Hcl 0.25 Mg Tab) 0.5 mg PO [facility] Last Admin: 07/05/20 20:31 Dose: 0.5 mg Documented by: Topiramate (Topiramate 100 Mg Tab) 100 mg PO BID [facility] Last Admin: 07/05/20 21:33 Dose: 100 mg Documented by: Trazodone HCl (Trazodone Hcl 100 Mg Tab) 100 mg PO [facility] Last Admin: 07/05/20 20:32 Dose: 100 mg Documented by: Venlafaxine HCl (Venlafaxine Hcl Er 75 Mg Cap) 225 mg PO [facility] Last Admin: 07/05/20 20:31 Dose: 225 mg Documented by: Past medical history to include: Asthma, fibromyalgia, GERD, SLEEP apnea does not use CPAP, irritable bowel syndrome, hypothyroid migraines perforated diverticulum with colostomy that was reversed, bipolar disorder Social history: Does not smoke or drink alcohol. Lives with her boyfriend. 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 Conjunctiva normal. HEENT: External appearance of nose and ears normal, oral cavity grossly normal. NECK: JVD not raised; masses not palpable. HEART: First and second heart sounds are normal; no edema. LUNGS: Respiratory rate normal; clear to auscultation. ABDOMEN: Soft, some left-sided lower abdominal tenderness-appears to be bit superficial, no guarding rigidity, liver spleen not palpable, no masses palpable. PSYCH: Alert and oriented x3; mood and affect uncomfortable. INVESTIGATIONS, reviewed in the clinical context: White count 13.6 hemoglobin 13 platelets 422 potassium 4.5 creatinine 0.97 Urine hCG not detected Computed tomography scan of the abdomen and pelvis-unremarkable except for scar tissue Assessment and plan: -Left lower abdominal pain. Appears to be muscular, could be from scar tissue with abnormal healing/contracture. Did discussed with the patient to use pants. Also to use a heating pad. -Intermittent asthma, uses albuterol when necessary -Chronic fibromyalgia, continue with meloxicam, [place] when necessary -GERD, use Pepcid -Obstructive sleep apnea does not use a CPAP machine -Irritable bowel syndrome, may use Metamucil as needed -Hypothyroid, continue Synthroid -Morbid obesity BMI 48.3, see dietitian and outpatient follow-up with PCP for weight loss measures From my standpoint patient is medically stable for discharge. We will sign off. Please call with any questions Thank you Dr. Meadows
[2020-07-06] MEDS: SODIUM CHLORIDE 0.9% 1,000 ML IV SCH ×3 (05:00→23:18)
[2020-07-06] MEDS: LEVOTHYROXINE 50 MCG TAB PO SCH (06:23)
[2020-07-06] MEDS: HYDROmorphone 0.5 MG/0.5 ML SYRINGE IVP PRN ×4 (06:25→20:42)
[2020-07-06 08:38] LABS: Basophils # (A) 0.1 k/uL (0-0.2); Basophils % (A) 1 %; Eosinophils # (A) 0.3 k/uL (0-0.7); Eosinophils % (A) 3 %; HCT 37.3 % (34.0-46.0); Hypochromasia Slight; Lymphocytes # (A) 2.2 k/uL (1.0-4.8); Lymphocytes % (A) 30 %; MCH 26.7 pg (25.0-35.0); MCHC 32.1 g/dL (31.0-37.0); MCV 82.9 fL (80.0-100.0); Mean Platelet Volume 6.9; Monocytes # (A) 0.4 k/uL (0-1.0); Monocytes % (A) 5 %; Neutrophils # (A) 4.5 k/uL (1.3-7.7); Neutrophils % (A) 60 %; Platelet Count 298 k/uL (150-450); RBC 4.49 m/uL (3.80-5.40); RDW 15.5 % (11.5-15.5); WBC 7.4 k/uL (3.8-10.6)
[2020-07-06] MEDS: HEPARIN SODIUM,PORCINE 5,000 UNIT/ML 1 ML VIAL SQ SCH ×3 (08:38→23:35)
[2020-07-06] MEDS: LORATADINE 10 MG TAB PO SCH (08:39)
[2020-07-06] MEDS: TOPIRAMATE 100 MG TAB PO SCH ×2 (08:39→20:06)
[2020-07-06] MEDS: FAMOTIDINE 20 MG TAB PO SCH (08:39)
[2020-07-06] MEDS: PREGABALIN 75 MG CAP PO SCH ×2 (08:39→20:07)
[2020-07-06] MEDS: MELOXICAM 7.5 MG TAB PO SCH (08:39)
[2020-07-06 08:48] LABS: African American GFR (CKD) >90 (>60 ml/min/1.73 sqM); Anion Gap 6 mmol/L; Blood Urea Nitrogen 7 mg/dL (7-17); Carbon Dioxide 24 mmol/L (22-30); Chloride 108 mmol/L (98-107); Glucose 89 mg/dL (74-99); Non-African American GFR(CKD) >90 (>60 ml/min/1.73 sqM); Potassium 4.1 mmol/L (3.5-5.1); Sodium 138 mmol/L (137-145)
--- NOTE | 2020-07-06 15:36 | P.PN ---
Subjective Progress Note Date: 07/06/20 CHIEF COMPLAINT: Abdominal pain HISTORY OF PRESENT ILLNESS: Patient seen and examined with Dr. Meadows. Patient is being followed for left lower abdominal pain. She is passing gas. Denies any bowel movement. She did have a regular diet this afternoon. However, she is still complaining of the abdominal pain and did require dose of IV Dilaudid. Afebrile. WBC 7.4 Hgb 12 PHYSICAL EXAM: VITAL SIGNS: Reviewed. GENERAL: Well-developed in no acute distress. HEENT: No sclera icterus. Extraocular movements grossly intact. Moist buccal mucosa. Head is atraumatic, normocephalic. ABDOMEN: Soft. Nondistended. Tenderness in the left lower abdomen. Multiple scars healed. No erythema NEUROLOGIC: Alert and oriented. Cranial nerves II through XII grossly intact. ASSESSMENT: 1. Abdominal pain possibly due to scar tissue. 2. Leukocytosis and acidosis improved PLAN: -Advanced to regular diet -Continue pain medication as needed -Continue antiemetics -Hep-Lock IV fluids -Encourage patient to ambulate and increase activity -GI prophylaxis Pepcid and DVT prophylaxis subcu heparin Physician Contract Administration Specialist note has been reviewed by physician. Signing provider agrees with the documented findings, assessment, and plan of care. Objective - Vital Signs Vital signs: Vital Signs Temp 98.2 F 07/06/20 08:50 Pulse 81 07/06/20 13:59 Resp 18 07/06/20 13:59 BP 116/78 07/06/20 13:59 Pulse Ox 99 07/06/20 13:59 Intake & Output 07/05/20 07/06/20 07/06/20 18:59 06:59 18:59 Other: Voiding Method Toilet # Voids 4 2 - Labs CBC & Chem 7: 07/06/20 08:05 07/06/20 08:05 Labs: Abnormal Lab Results - Last 24 Hours (Table) 07/06/20 Range/Units 08:05 Chloride 108 H (98-107) mmol/L
[2020-07-06] MEDS: VENLAFAXINE HCL ER 75 MG CAP PO SCH (20:07)
[2020-07-06] MEDS: ARIPiprazole 2 MG TAB PO SCH (20:07)
[2020-07-06] MEDS: traZODone HCL 100 MG TAB PO SCH (20:07)
[2020-07-07] MEDS: LEVOTHYROXINE 50 MCG TAB PO SCH (06:17)
[2020-07-07] MEDS: HEPARIN SODIUM,PORCINE 5,000 UNIT/ML 1 ML VIAL SQ SCH (07:55)
[2020-07-07] MEDS: TOPIRAMATE 100 MG TAB PO SCH (07:55)
[2020-07-07] MEDS: LORATADINE 10 MG TAB PO SCH (07:55)
[2020-07-07] MEDS: FAMOTIDINE 20 MG TAB PO SCH (07:55)
[2020-07-07] MEDS: MELOXICAM 7.5 MG TAB PO SCH (07:55)
[2020-07-07] MEDS: PREGABALIN 75 MG CAP PO SCH (07:55)
[2020-07-07 08:56] VITALS: BP 134/85; PULSE 74; RESP 18; TEMP 98.4
--- NOTE | 2020-07-07 10:25 | P.DS ---
Providers Date of admission: 07/06/20 11:49 Expected date of discharge: 07/07/20 Attending physician: Brayan Meadows Consults: 07/03/20 17:53 Consult Physician Routine Consulting Provider: Malick Fontenot Consult Reason/Comments: Medical management Do you want consulting provider notified?: Yes Primary care physician: Edgardo Orozco [place] [facility] Course: Discharge diagnosis 1. Abdominal pain possibly due to scar tissue. 2. Leukocytosis and acidosis improved Hospital course This is a 35-year-old female presented to the ER with complaints of acute onset mid abdominal discomfort. Says it reminds her of when she had an infected hematoma previously. White blood cell count slightly elevated in the ER at 13.6 CAT scan shows scarring at the site of previous hematoma without acute changes noted. Patient's abdominal pain and showing improvement. She's tolerating regular diet. She's afebrile. Her white count and lactic acid level have normalized. Patient's abdominal pain is possibly due to scar tissue. Dr. Meadows did recommend Benefiber twice a day for patient. He will also follow up with her in the office to discuss further weight loss options such as sleep g astrectomy. Patient is stable for discharge. Please refer to chart for any further details. Physician Representative Government Relations note has been reviewed by physician. Signing provider agrees with the documented findings, assessment, and plan of care. Patient Condition at Discharge: Stable Plan - Discharge Summary Discharge Rx Participant: Yes New Discharge Prescriptions: New HYDROcodone/APAP 5-325MG [[place] 5] 1 each PO Q6HR PRN #10 tab PRN Reason: Pain Continue Levothyroxine Sodium [Synthroid] 50 mcg PO DAILY traZODone HCL [Desyrel] 100 mg PO HS Venlafaxine HCl [Effexor XR] 225 mg PO HS Topiramate [Trokendi Xr] 200 mg PO DAILY rOPINIRole HCL [Requip] 0.5 mg PO HS Famotidine [Pepcid] 40 mg PO DAILY Erenumab-Aooe [Aimovig Autoinjector] 140 mg SQ Q28D Cetirizine HCl [Zyrtec] 10 mg PO DAILY Pregabalin [Lyrica] 150 mg PO BID ARIPiprazole [Abilify] 2 mg PO HS [place] Fe 1.5-30 1 tab PO HS Albuterol Sulfate [Proventil Hfa] 1 puff INHALATION RT-Q4H PRN PRN Reason: Shortness Of Breath Magnesium Gummies (165mg) 2 tab PO DAILY Meloxicam 15 mg PO DAILY Discontinued HYDROcodone/APAP 7.5-325MG [[place] 7.5-325] 1 tab PO BID PRN PRN Reason: Pain Discharge Medication List Levothyroxine Sodium [Synthroid] 50 mcg PO DAILY 05/05/14 [History] traZODone HCL [Desyrel] 100 mg PO HS 04/04/15 [History] Topiramate [Trokendi Xr] 200 mg PO DAILY 07/19/17 [History] Venlafaxine HCl [Effexor XR] 225 mg PO HS 07/19/17 [History] rOPINIRole HCL [Requip] 0.5 mg PO HS 01/23/19 [History] Famotidine [Pepcid] 40 mg PO DAILY 07/28/19 [History] Cetirizine HCl [Zyrtec] 10 mg PO DAILY 08/30/19 [History] Erenumab-Aooe [Aimovig Autoinjector] 140 mg SQ Q28D 08/30/19 [History] Pregabalin [Lyrica] 150 mg PO BID 08/30/19 [History] ARIPiprazole [Abilify] 2 mg PO HS 08/31/19 [History] Albuterol Sulfate [Proventil Hfa] 1 puff INHALATION RT-Q4H PRN 04/21/20 [History] [place] Fe 1.5-30 1 tab PO HS 04/21/20 [History] Magnesium Gummies (165mg) 2 tab PO DAILY 04/26/20 [History] Meloxicam 15 mg PO DAILY 06/28/20 [History] HYDROcodone/APAP 5-325MG [[place] 5] 1 each PO Q6HR PRN #10 tab 07/07/20 [Rx] Follow up Appointment(s)/Referral(s): Edgardo Inman MD [Primary Care Provider] - 1-2 days Brayan Meadows MD [STAFF PHYSICIAN] - 1 Week Activity/Diet/Wound Care/Special Instructions: Recommend Benefiber twice a day Diet Regular Discharge Disposition: HOME SELF-CARE
== END 2020-07-07 10:51 | disposition home or self-care (01) | DRG 607 ==
LOC: EC 13:26 → 6PED 15:18 → OBSVTOIN 07-06 11:49
PROVIDERS: ADMIT Surgery; ATTEND Surgery
DX: L90.5 Scar conditions and fibrosis of skin (principal); Z68.42 Body mass index [BMI] 45.0-49.9, adult; N39.0 Urinary tract infection, site not specified; E87.2 Acidosis; M79.7 Fibromyalgia; K58.9 Irritable bowel syndrome, unspecified; K43.2 Incisional hernia without obstruction or gangrene; K21.9 Gastro-esophageal reflux disease without esophagitis; Z20.822 Contact with and (suspected) exposure to COVID-19; J45.20 Mild intermittent asthma, uncomplicated; G47.33 Obstructive sleep apnea (adult) (pediatric); F31.9 Bipolar disorder, unspecified; E03.9 Hypothyroidism, unspecified; E66.01 Morbid (severe) obesity due to excess calories; F41.9 Anxiety disorder, unspecified; Z93.3 Colostomy status; Z86.59 Personal history of other mental and behavioral disorders; Z82.5 Family history of asthma and other chronic lower respiratory diseases; Z81.8 Family history of other mental and behavioral disorders; Z79.899 Other long term (current) drug therapy; Z79.890 Hormone replacement therapy; Z79.1 Long term (current) use of non-steroidal anti-inflammatories (NSAID); Z83.3 Family history of diabetes mellitus; Z88.8 Allergy status to other drugs, medicaments and biological substances
CPT/HCPCS: 36415; 74177; 80048; 80053; 81001; 81025; 83605; 83690; 85025; 87635; 96374; 96375; 99285

== ENCOUNTER 2020-07-09 13:35 | Emergency (ER) | payer OTHER ==
[2020-07-09] MEDS ORDERED: SODIUM CHLORIDE 0.9% 1,000 ML IV STA ×2 (14:27→16:48)
--- NOTE | 2020-07-09 15:04 | ED ---
Fever HPI - General Chief Complaint: Fever Stated Complaint: dizziness/nausea Time Seen by Provider: 07/09/20 14:22 Source: patient, RN notes reviewed Mode of arrival: ambulatory Limitations: no limitations - History of Present Illness Initial Comments: 75-year-old female presents to emergency department complaining of fever, general muscle aches, dizziness. She did note that she got her second dose of the code vaccine yesterday when she went to her follow-up appointment with her doctor today for an ultrasound due to some surgical incision issues and hematoma. She became lightheaded and felt like she was going to faint. She denied any syncopal episode but decided come to the ER to get evaluated anyways. She was in mild distress while lying in bed during the exam interview. She denied some muscle aches and pains throughout her whole body. She also noted that her head felt full which she treats to either the crying or her head dozing off back and forth. She denied any chest pain shortness of breath syncopal episodes palpitations nausea vomiting diarrhea constipation headache change in vision change in diet appetite. - Related Data Home Medications Medication Instructions Recorded Confirmed Levothyroxine Sodium [Synthroid] 50 mcg PO DAILY 05/05/14 07/09/20 traZODone HCL [Desyrel] 100 mg PO HS 04/04/15 07/09/20 Topiramate [Trokendi Xr] 200 mg PO DAILY 07/19/17 07/09/20 Venlafaxine HCl [Effexor XR] 225 mg PO HS 07/19/17 07/09/20 rOPINIRole HCL [Requip] 0.5 mg PO HS 01/23/19 07/09/20 Famotidine [Pepcid] 40 mg PO DAILY 07/28/19 07/09/20 Cetirizine HCl [Zyrtec] 10 mg PO DAILY 08/30/19 07/09/20 Erenumab-Aooe [Aimovig 140 mg SQ Q28D 08/30/19 07/09/20 Autoinjector] Pregabalin [Lyrica] 150 mg PO BID 08/30/19 07/09/20 ARIPiprazole [Abilify] 2 mg PO HS 08/31/19 07/09/20 Albuterol Sulfate [Proventil Hfa] 1 puff INHALATION RT-Q4H PRN 04/21/20 07/09/20 [place]is[place] Fe 1.5-30 1 tab PO HS 04/21/20 07/09/20 Magnesium Gummies (165mg) 2 tab PO DAILY 04/26/20 07/09/20 Meloxicam 15 mg PO DAILY 06/28/20 07/09/20 Allergies Allergy/AdvReac Type Severity Reaction Status Date / Time tramadol Allergy Hallucinati Verified 07/09/20 14:13 ons valacyclovir HCl AdvReac BLURRED Verified 07/09/20 14:13 [From Valtrex] VISION Review of Systems ROS Statement: Those systems with pertinent positive or pertinent negative responses have been documented in the HPI. ROS Other: All systems not noted in ROS Statement are negative. Past Medical History Past Medical History: Asthma, Fibromyalgia, GERD/Reflux, Musculoskeletal Disorder, Sleep Apnea/CPAP/BIPAP, Thyroid Disorder Additional Past Medical History / Comment(s): Hx Migraines, DDD , IBS, NO CPAP used. HX PERFORATED DIVERTICULITIS W/ PAST Colostomy 12/2017. internal abd hematoma History of Any Multi-Drug Resistant Organisms: None Reported Past Surgical History: Bowel Resection, Breast Surgery, Cholecystectomy, Hernia Repair Additional Past Surgical History / Comment(s): Dental, Rt Breast biopsy. Colostomy 12/2017, THEN Reversal 02/2018. Cholecystectomy - 4-06-01 Past Anesthesia/Blood Transfusion Reactions: No Reported Reaction Past Psychological History: Anxiety, Bipolar, Depression Smoking Status: Never smoker Past Alcohol Use History: Occasional Past Drug Use History: None Reported - Past Family History Mother History Unknown: Yes Family Medical History: COPD Additional Family Medical History / Comment(s): depression, anxiety Brother(s) Family Medical History: Diabetes Mellitus Father Family Medical History: Unable to Obtain General Exam Limitations: no limitations General appearance: alert, in distress, obese Head exam: Present: atraumatic, normocephalic, normal inspection Eye exam: Present: normal appearance, PERRL, EOMI. Absent: scleral icterus, conjunctival injection, periorbital swelling ENT exam: Present: normal exam, mucous membranes moist Neck exam: Present: normal inspection. Absent: tenderness, meningismus, lymphadenopathy Respiratory exam: Present: normal lung sounds bilaterally. Absent: respiratory distress, wheezes, rales, rhonchi, stridor Cardiovascular Exam: Present: regular rate, normal rhythm, normal heart sounds. Absent: systolic murmur, diastolic murmur, rubs, gallop, clicks GI/Abdominal exam: Present: soft, normal bowel sounds. Absent: distended, tenderness, guarding, rebound, rigid Extremities exam: Present: normal inspection, full ROM, normal capillary refill. Absent: tenderness, pedal edema, joint swelling, calf tenderness Neurological exam: Present: alert, oriented X3, CN II-XII intact Psychiatric exam: Present: normal affect, normal mood Skin exam: Present: warm, dry, intact, normal color. Absent: rash Course Vital Signs 07/09/20 07/09/20 07/09/20 14:11 15:20 17:00 Temperature 103.1 F H 104.2 F H 102.8 F H Pulse Rate 134 H 130 H 127 H Respiratory 20 18 16 Rate Blood Pressure 135/85 123/62 117/77 O2 Sat by Pulse 100 98 99 Oximetry 07/09/20 18:45 Temperature 100.3 F H Pulse Rate 102 H Respiratory 16 Rate Blood Pressure 104/57 O2 Sat by Pulse 99 Oximetry Medical Decision Making - Medical Decision Making 35-year-old female presents to emergency department complaining of dizziness, lightheadedness and muscle aches. She did note that she had her second dose of covert vaccine yesterday. EKG, cardiac nurse, 1 L normal saline, labs ordered 1 g of Tylenol ordered to help reduce fever, encourage oral fluid intake. 800 mg of Motrin ordered, 1 more liter of normal saline bolus ordered. Case discussed with Dr. Cross, decided the patient to discharge home with conservative measures. - Lab Data Lab Results 07/09/20 Range/Units 15:54 Urine Color Light Yellow Urine Appearance Cloudy H (Clear) Urine pH 7.5 (5.0-8.0) Ur Specific [place] 1.016 (1.001-1.035) Urine Protein Negative (Negative) Urine Glucose (UA) Negative (Negative) Urine Ketones Negative (Negative) Urine Blood Negative (Negative) Urine Nitrite Negative (Negative) Urine Bilirubin Negative (Negative) Urine Urobilinogen <2.0 (<2.0) mg/dL Ur Leukocyte Esterase Negative (Negative) Urine RBC 2 (0-5) /hpf Urine WBC 1 (0-5) /hpf Ur Squamous Epith Cells 1 (0-4) /hpf Urine Bacteria Rare H (None) /hpf Urine Mucus Rare H (None) /hpf - EKG Data -: EKG Interpreted by Me EKG shows normal: sinus rhythm Rate: tachycardia EKG Comments: Ventricular rate 129 bpm, WA interval 140 ms, QRS duration 86 ms, QT/QTC 290/424 ms, PareT axes 45/-54/51 sinus tachycardia, pulmonary disease pattern, left anterior fascicular block, abnormal ECG. - Radiology Data Radiology results: report reviewed, image reviewed Chest x-ray: No acute pulmonary process Disposition Clinical Impression: Viral infection Disposition: HOME SELF-CARE Condition: Stable Instructions (If sedation given, give patient instructions): Fever in Adults (ED) Additional Instructions: Please return to the Emergency Department if symptoms worsen or any other concerns. Alternate Tylenol Motrin every 3-4 hours to control fever and pain. Increase oral fluid intake. Avoid any strenuous activity for the next 2-3 days. Is patient prescribed a controlled substance at d/c from ED?: No Referrals: Edgardo Inman MD [Primary Care Provider] - 1-2 days Time of Disposition: 19:53
--- NOTE | 2020-07-09 15:21 | XR ---
EXAMINATION TYPE: XR chest 2V DATE OF EXAM: 07/09/2020 COMPARISON: 12/02/2019 INDICATION: Dizziness lightheaded fever TECHNIQUE: Frontal and lateral views of the chest are obtained. FINDINGS: The heart size is normal. The pulmonary vasculature is normal. The lungs are clear. There is some hazy appearance over the right mid and lower lung field which sara ears to be related to patient body habitus. Focal consolidation or air bronchograms are not evident. Follow-up chest studies can be performed as clinically indicated. IMPRESSION: 1. No acute pulmonary process.
[2020-07-09] MEDS ORDERED: ACETAMINOPHEN TAB 500 MG TAB PO STA (15:44)
[2020-07-09 16:22] LABS: Appearance,Urine Cloudy (Clear); Bacteria,Urine Rare /hpf; Bilirubin,Urine Negative (Negative); Blood,Urine Negative (Negative); Color,Urine Light Yellow; Glucose,Urine (UA) Negative (Negative); Ketones,Urine Negative (Negative); Leukocyte Esterase,Urine Negative (Negative); Mucus,Urine Rare /hpf; Nitrite,Urine Negative (Negative); PH, Urine 7.5 (5.0-8.0); Protein,Urine Negative (Negative); RBC,Urine 2 /hpf (0-5); Specific Gravity,Urine 1.016 (1.001-1.035); Squamous Epithelial Cell,Urine 1 /hpf (0-4); Urobilinogen,Urine <2.0 mg/dL (<2.0); WBC,Urine 1 /hpf (0-5)
[2020-07-09] MEDS ORDERED: IBUPROFEN 800 MG TAB PO STA (16:48)
[2020-07-09 17:01] VITALS: RESP 16
[2020-07-09 18:46] VITALS: BP 104/57; PULSE 102; TEMP 100.3
[2020-07-09] MEDS ORDERED: ONDANSETRON ODT 4 MG TAB PO STA (19:37)
[2020-07-09] MEDS ORDERED: HYDROmorphone 0.5 MG/0.5 ML SYRINGE IM STA (19:38)
== END 2020-07-09 20:27 | disposition home or self-care (01) ==
LOC: EC 13:35
DX: B34.9 Viral infection, unspecified (principal); E07.9 Disorder of thyroid, unspecified; K21.9 Gastro-esophageal reflux disease without esophagitis; M79.7 Fibromyalgia; J45.909 Unspecified asthma, uncomplicated; G47.30 Sleep apnea, unspecified; G43.909 Migraine, unspecified, not intractable, without status migrainosus; F41.9 Anxiety disorder, unspecified; F32.9 Major depressive disorder, single episode, unspecified; Z79.890 Hormone replacement therapy; Z79.3 Long term (current) use of hormonal contraceptives; Z79.899 Other long term (current) drug therapy; Z79.1 Long term (current) use of non-steroidal anti-inflammatories (NSAID); Z88.5 Allergy status to narcotic agent; Z88.3 Allergy status to other anti-infective agents; Z90.49 Acquired absence of other specified parts of digestive tract; Z99.89 Dependence on other enabling machines and devices
CPT/HCPCS: 93005; 81001; 71046; 99283; 96372; J1170

== ENCOUNTER → 2020-07-09 | Outpatient (CLI) | payer OTHER ==
--- NOTE | 2020-07-09 13:28 | US ---
EXAMINATION TYPE: US abdomen limited DATE OF EXAM: 07/09/2020 COMPARISON: Ultrasound 04/27/2020, CT abdomen pelvis 07/03/2020 and 04/26/2020 CLINICAL HISTORY: S30.1XXA Hematoma of Abdominal Wall. Patient states having a hematoma in RLQ. Claudia ent states having Colostomy bag in left side which turned into a hernia with repair. Pain. Area of RLQ scanned. No masses or lesions seen. Area of LLQ scar scanned. Scar tissue visualized. Medial to scar, hypoechoic area seen with tract vi sualized to scar. IMPRESSION: 1. Vague ill-defined density in the region of the prior surgery medial to the left upper quadrant sca r is compatible with the findings on the CT examination. Findings are likely related to postsurgical change. Discrete hematoma is not identified.
== END | disposition home or self-care (01) ==
LOC: RADUSWWP 12:51
PROVIDERS: ATTEND Family Medicine
DX: S30.1XXA Contusion of abdominal wall, initial encounter (principal)
CPT/HCPCS: 76705

== ENCOUNTER → 2020-07-15 | Outpatient (CLI) | payer OTHER ==
[2020-07-15 23:39] LABS: Basophils # (A) 0.04 X 10*3/uL (0.00-0.10); Basophils % (A) 0.2 %; Eosinophils # (A) 0.01 X 10*3/uL (0.04-0.35); Eosinophils % (A) 0.1 %; HCT 36.3 % (37.2-46.3); HGB 10.9 g/dL (12.0-15.0); Lymphocytes # (A) 3.01 X 10*3/uL (0.90-5.00); Lymphocytes % (A) 15.6 %; MCH 25.3 pg (27.0-32.0); MCV 84.2 fL (80.0-97.0); Mean Platelet Volume 10.9 fL (9.5-12.2); Monocytes # (A) 1.23 X 10*3/uL (0.20-1.00); Monocytes % (A) 6.4 %; Neutrophils # (A) 14.83 X 10*3/uL (1.80-7.70); Platelet Count 400 X 10*3/uL (140-440); RBC 4.31 X 10*6/uL (4.10-5.20); RDW 16.6 % (11.5-14.5); WBC 19.26 X 10*3/uL (4.50-10.00)
[2020-07-16 00:29] LABS: Erythrocyte Sedimentation Rate 16 mm/Hr (0-20)
[2020-07-16 09:58] LABS: African American GFR (CKD) 94.7 (60.0-200.0); Albumin 4.4 g/dL (3.80-4.90); Albumin/Globulin Ratio 1.76 (1.60-3.17); Anion Gap 11.8 mmol/L (4.00-12.00); BUN/Creat Ratio 27.78 Ratio (12.00-20.00); Calcium 9.2 mg/dL (8.7-10.3); Carbon Dioxide 19.2 mmol/L (21.6-31.8); Globulin 2.5 g/dL (1.6-3.3); Non-African American GFR(CKD) 81.7 (60.0-200.0); Potassium 4.3 mmol/L (3.5-5.5); Total Bilirubin 0.3 mg/dL (0.2-1.2); Total Protein 6.9 g/dL (6.2-8.2)
== END | disposition home or self-care (01) ==
LOC: LABWHC1 15:24
PROVIDERS: ATTEND Family Medicine
DX: R10.9 Unspecified abdominal pain (principal)
CPT/HCPCS: 36415; 80053; 82150; 83690; 85025; 85652

== ENCOUNTER 2020-08-10 19:07 | Emergency (ER) | payer OTHER ==
[2020-08-10] MEDS ORDERED: ONDANSETRON 4 MG/2 ML VIAL IVP STA (21:53)
[2020-08-10] MEDS ORDERED: PANTOPRAZOLE 40 MG/10 ML VIAL IVP STA (21:53)
[2020-08-10] MEDS ORDERED: MORPHINE SULFATE 4 MG/ML SYRINGE IV STA (21:53)
[2020-08-10] MEDS ORDERED: SODIUM CHLORIDE 0.9% 1,000 ML IV STA (21:53)
--- NOTE | 2020-08-10 21:53 | ED ---
Abdominal Pain HPI - General Chief Complaint: Abdominal Pain Stated Complaint: Abd pain Time Seen by Provider: 08/10/20 21:21 Source: patient, RN notes reviewed, old records reviewed Mode of arrival: ambulatory Limitations: no limitations - History of Present Illness Initial Comments: This is a 35-year-old female to the ER for evaluation patient presents to the ER for evaluation regards to severe abdominal pain with history of abdominal pain related to adhesions from prior surgeries. Patient scheduled for outpatient CAT scan on Sunday, states the pain is just been severe persistent today. Mild nausea no vomiting no diarrhea no fevers. Pain is similar to her prior abdominal pain MD Complaint: abdominal pain -: days(s), week(s), month(s) Location: periumbilical, epigastric Radiation: epigastric Migration to: periumbilical Severity: moderate Severity scale (1-10): 6 Quality: cramping, aching Consistency: constant Improves With: nothing Worsens With: nothing Context: recent surgery/procedure Associated Symptoms: nausea Treatments Prior to Arrival: prescription analgesics - Related Data Home Medications Medication Instructions Recorded Confirmed Levothyroxine Sodium [Synthroid] 50 mcg PO DAILY 05/05/14 08/10/20 traZODone HCL [Desyrel] 100 mg PO HS 04/04/15 08/10/20 Topiramate [Trokendi Xr] 200 mg PO DAILY 07/19/17 08/10/20 rOPINIRole HCL [Requip] 0.5 mg PO HS 01/23/19 08/10/20 Famotidine [Pepcid] 40 mg PO DAILY 07/28/19 08/10/20 Cetirizine HCl [Zyrtec] 10 mg PO DAILY 08/30/19 08/10/20 Pregabalin [Lyrica] 150 mg PO BID 08/30/19 08/10/20 Blisovi Fe 1.5-30 1 tab PO HS 04/21/20 08/10/20 Meloxicam 15 mg PO DAILY 06/28/20 08/10/20 ARIPiprazole [Abilify] 5 mg PO HS 08/10/20 08/10/20 Empagliflozin/Metformin HCl 1 tab PO DAILY 08/10/20 08/10/20 [Synjardy 12.5-1,000 mg Tablet] HYDROcodone/APAP 7.5-325MG [[place] 1 tab PO BID 08/10/20 08/10/20 7.5-325] Allergies Allergy/AdvReac Type Severity Reaction Status Date / Time tramadol Allergy Hallucinati Verified 08/10/20 22:16 ons valacyclovir HCl AdvReac BLURRED Verified 08/10/20 22:16 [From Valtrex] VISION Review of Systems ROS Statement: Those systems with pertinent positive or pertinent negative responses have been documented in the HPI. ROS Other: All systems not noted in ROS Statement are negative. Past Medical History Past Medical History: Asthma, Diabetes Mellitus, Fibromyalgia, GERD/Reflux, Musculoskeletal Disorder, Sleep Apnea/CPAP/BIPAP, Thyroid Disorder Additional Past Medical History / Comment(s): Hx Migraines, DDD , IBS, NO CPAP used. HX PERFORATED DIVERTICULITIS W/ PAST Colostomy 12/2017. internal abd hematoma History of Any Multi-Drug Resistant Organisms: None Reported Past Surgical History: Bowel Resection, Breast Surgery, Cholecystectomy, Hernia Repair Additional Past Surgical History / Comment(s): Dental, Rt Breast biopsy. Colostomy 12/2017, THEN Reversal 02/2018. Cholecystectomy - 08-12-18 Past Anesthesia/Blood Transfusion Reactions: No Reported Reaction Past Psychological History: Anxiety, Bipolar, Depression Smoking Status: Never smoker Past Alcohol Use History: Occasional Past Drug Use History: None Reported - Past Family History Mother History Unknown: Yes Family Medical History: COPD Additional Family Medical History / Comment(s): depression, anxiety Brother(s) Family Medical History: Diabetes Mellitus Father Family Medical History: Unable to Obtain General Exam Limitations: no limitations General appearance: alert, in no apparent distress, obese Head exam: Present: atraumatic, normocephalic, normal inspection Eye exam: Present: normal appearance, PERRL, EOMI. Absent: scleral icterus, conjunctival injection, periorbital swelling ENT exam: Present: normal exam, mucous membranes moist Neck exam: Present: normal inspection. Absent: tenderness, meningismus, lymphadenopathy Respiratory exam: Present: normal lung sounds bilaterally. Absent: respiratory distress, wheezes, rales, rhonchi, stridor Cardiovascular Exam: Present: regular rate, normal rhythm, normal heart sounds. Absent: systolic murmur, diastolic murmur, rubs, gallop, clicks GI/Abdominal exam: Present: soft, normal bowel sounds. Absent: distended, tenderness, guarding, rebound, rigid Extremities exam: Present: normal inspection, full ROM, normal capillary refill. Absent: tenderness, pedal edema, joint swelling, calf tenderness Back exam: Present: normal inspection Neurological exam: Present: alert, oriented X3, CN II-XII intact Psychiatric exam: Present: normal affect, normal mood Skin exam: Present: warm, dry, intact, normal color. Absent: rash Course Vital Signs 08/10/20 20:55 Temperature 98.1 F Pulse Rate 90 Respiratory 20 Rate Blood Pressure 126/84 O2 Sat by Pulse 100 Oximetry - Reevaluation(s) Reevaluation #1: 08/10/20 22:19 Medical record is reviewed Reevaluation #2: 08/11/20 00:27 Patient feeling better currently with pain control Reevaluation #3: 08/11/20 00:27 Spoke patient regarding findings and results, questions are answered - Consultations Consultation #1: Spoke with Dr. Meadows, will see patient in the office Medical Decision Making - Medical Decision Making 35 female to the ER for evaluation presented today for evaluation of abdominal pain. Patient does have abdominal pain, patient presents with worsening pain in the ER, patient will be discharged home - Lab Data Result diagrams: 08/10/20 22:11 08/10/20 22:11 Lab Results 08/10/20 08/10/20 08/10/20 Range/Units 22:11 22:11 22:11 WBC 10.9 H (3.8-10.6) k/uL RBC 4.84 (3.80-5.40) m/uL Hgb 12.9 (11.4-16.0) gm/dL Hct 39.5 (34.0-46.0) % MCV 81.6 (80.0-100.0) fL MCH 26.6 (25.0-35.0) pg MCHC 32.6 (31.0-37.0) g/dL RDW 15.4 (11.5-15.5) % Plt Count 359 (150-450) k/uL MPV 7.3 Neutrophils % 51 % Lymphocytes % 36 % Monocytes % 5 % Eosinophils % 5 % Basophils % 1 % Neutrophils # 5.6 (1.3-7.7) k/uL Lymphocytes # 3.9 (1.0-4.8) k/uL Monocytes # 0.6 (0-1.0) k/uL Eosinophils # 0.5 (0-0.7) k/uL Basophils # 0.1 (0-0.2) k/uL Hypochromasia Slight Sodium 139 (137-145) mmol/L Potassium 4.1 (3.5-5.1) mmol/L Chloride 108 H (98-107) mmol/L Carbon Dioxide 23 (22-30) mmol/L Anion Gap 8 mmol/L BUN 21 H (7-17) mg/dL Creatinine 0.91 (0.52-1.04) mg/dL Est GFR (CKD-EPI)AfAm >90 (>60 ml/min/1.73 sqM) Est GFR (CKD-EPI)NonAf 81 (>60 ml/min/1.73 sqM) Glucose 117 H (74-99) mg/dL Plasma Lactic Acid Yobani (0.7-2.0) mmol/L Calcium 9.3 (8.4-10.2) mg/dL Total Bilirubin 0.3 (0.2-1.3) mg/dL AST 33 (14-36) U/L ALT 45 H (4-34) U/L Alkaline Phosphatase 80 (38-126) U/L Creatine Kinase 137 H (30-135) U/L Troponin I (0.000-0.034) ng/mL Total Protein 7.4 (6.3-8.2) g/dL Albumin 4.2 (3.5-5.0) g/dL Amylase 87 (30-110) U/L Lipase 191 (23-300) U/L Urine Color Yellow Urine Appearance Clear (Clear) Urine pH 6.5 (5.0-8.0) Ur Specific [place] 1.038 H (1.001-1.035) Urine Protein Trace H (Negative) Urine Glucose (UA) 4+ H (Negative) Urine Ketones Negative (Negative) Urine Blood Negative (Negative) Urine Nitrite Negative (Negative) Urine Bilirubin Negative (Negative) Urine Urobilinogen <2.0 (<2.0) mg/dL Ur Leukocyte Esterase Negative (Negative) 08/10/20 08/10/20 Range/Units 22:11 22:11 WBC (3.8-10.6) k/uL RBC (3.80-5.40) m/uL Hgb (11.4-16.0) gm/dL Hct (34.0-46.0) % MCV (80.0-100.0) fL MCH (25.0-35.0) pg MCHC (31.0-37.0) g/dL RDW (11.5-15.5) % Plt Count (150-450) k/uL MPV Neutrophils % % Lymphocytes % % Monocytes % % Eosinophils % % Basophils % % Neutrophils # (1.3-7.7) k/uL Lymphocytes # (1.0-4.8) k/uL Monocytes # (0-1.0) k/uL Eosinophils # (0-0.7) k/uL Basophils # (0-0.2) k/uL Hypochromasia Sodium (137-145) mmol/L Potassium (3.5-5.1) mmol/L Chloride (98-107) mmol/L Carbon Dioxide (22-30) mmol/L Anion Gap mmol/L BUN (7-17) mg/dL Creatinine (0.52-1.04) mg/dL Est GFR (CKD-EPI)AfAm (>60 ml/min/1.73 sqM) Est GFR (CKD-EPI)NonAf (>60 ml/min/1.73 sqM) Glucose (74-99) mg/dL Plasma Lactic Acid [place]ob[place] 1.4 (0.7-2.0) mmol/L Calcium (8.4-10.2) mg/dL Total Bilirubin (0.2-1.3) mg/dL AST (14-36) U/L ALT (4-34) U/L Alkaline Phosphatase (38-126) U/L Creatine Kinase (30-135) U/L Troponin I <0.012 (0.000-0.034) ng/mL Total Protein (6.3-8.2) g/dL Albumin (3.5-5.0) g/dL Amylase (30-110) U/L Lipase (23-300) U/L Urine Color Urine Appearance (Clear) Urine pH (5.0-8.0) Ur Specific [place] (1.001-1.035) Urine Protein (Negative) Urine Glucose (UA) (Negative) Urine Ketones (Negative) Urine Blood (Negative) Urine Nitrite (Negative) Urine Bilirubin (Negative) Urine Urobilinogen (<2.0) mg/dL Ur Leukocyte Esterase (Negative) - Radiology Data Radiology results: report reviewed (CT abdomen and pelvis is unchanged from prior), image reviewed Disposition Clinical Impression: Abdominal pain Disposition: HOME SELF-CARE Condition: Good Is patient prescribed a controlled substance at d/c from ED?: No
[2020-08-10 22:24] LABS: Basophils # (A) 0.1 k/uL (0-0.2); Basophils % (A) 1 %; Eosinophils # (A) 0.5 k/uL (0-0.7); Eosinophils % (A) 5 %; HCT 39.5 % (34.0-46.0); HGB 12.9 gm/dL (11.4-16.0); Hypochromasia Slight; Lymphocytes # (A) 3.9 k/uL (1.0-4.8); Lymphocytes % (A) 36 %; MCH 26.6 pg (25.0-35.0); MCHC 32.6 g/dL (31.0-37.0); MCV 81.6 fL (80.0-100.0); Mean Platelet Volume 7.3; Monocytes # (A) 0.6 k/uL (0-1.0); Monocytes % (A) 5 %; Neutrophils # (A) 5.6 k/uL (1.3-7.7); Neutrophils % (A) 51 %; Platelet Count 359 k/uL (150-450); RBC 4.84 m/uL (3.80-5.40); RDW 15.4 % (11.5-15.5); WBC 10.9 k/uL (3.8-10.6)
[2020-08-10 22:27] LABS: Appearance,Urine Clear (Clear); Bilirubin,Urine Negative (Negative); Blood,Urine Negative (Negative); Color,Urine Yellow; Glucose,Urine (UA) 4+ (Negative); Ketones,Urine Negative (Negative); Leukocyte Esterase,Urine Negative (Negative); Nitrite,Urine Negative (Negative); PH, Urine 6.5 (5.0-8.0); Protein,Urine Trace (Negative); Specific Gravity,Urine 1.038 (1.001-1.035); Urobilinogen,Urine <2.0 mg/dL (<2.0)
[2020-08-10 22:36] LABS: ALT 45 U/L (4-34); AST 33 U/L (14-36); African American GFR (CKD) >90 (>60 ml/min/1.73 sqM); Albumin 4.2 g/dL (3.5-5.0); Alkaline Phosphatase 80 U/L (38-126); Amylase 87 U/L (30-110); Anion Gap 8 mmol/L; Blood Urea Nitrogen 21 mg/dL (7-17); Calcium 9.3 mg/dL (8.4-10.2); Carbon Dioxide 23 mmol/L (22-30); Chloride 108 mmol/L (98-107); Creatine Kinase 137 U/L (30-135); Glucose 117 mg/dL (74-99); Lipase 191 U/L (23-300); Non-African American GFR(CKD) 81 (>60 ml/min/1.73 sqM); Potassium 4.1 mmol/L (3.5-5.1); Sodium 139 mmol/L (137-145); Total Bilirubin 0.3 mg/dL (0.2-1.3); Total Protein 7.4 g/dL (6.3-8.2)
--- NOTE | 2020-08-10 23:08 | CT ---
EXAMINATION TYPE: CT abdomen pelvis w con DATE OF EXAM: 08/10/2020 COMPARISON: 07/03/2020 HISTORY: pain after hernia repair sx [id number] CT DLP: 2456.3 mGycm Automated exposure control for dose reduction was used. CONTRAST: Performed with IV Contrast, patient injected with 100 mL of Isovue 300. Images obtained from the diaphragm to the floor the pelvis with IV contrast. The lung bases are clear. There is no pleural effusion. Heart size is normal. There is no pericardial effusion. There are clips from cholecystectomy. Liver spleen pancreas stomach appear intact. Bile du cts are not dilated. There is no adrenal mass. Kidneys show satisfactory contrast opacification. There is no hydronephrosi s. Delayed images show normal renal excretion. Ureters are not dilated. There is increased subcutaneo us density along the anterior abdominal wall that measures up to 3 cm in thickness. The with is 14 cm . There is some deformity of the omental fat in the anterior abdomen at the hernia repair site. There is small defect in the anterior abdominal wall on the right side of midline. Appendix appears normal . There is no mesenteric edema. There is no ascites or free air. There is no bowel obstruction. Fecal p attern is fairly normal. Lumbar vertebra have normal alignment. There is no compression fracture. Bony pelvis is intact. Hip j oints are intact. IMPRESSION: Subcutaneous density consistent with chronic hematoma and scarring over the anterior abdominal wall i s not significantly different than old CT scan. The density is 43 consistent with hematoma. No acute abnormality within the abdomen pelvis.
[2020-08-11] MEDS ORDERED: HYDROmorphone 1 MG/ML 1 ML SYRINGE IVP STA (00:22)
[2020-08-11 00:33] VITALS: BP 116/65; PULSE 74; RESP 18; TEMP 98
== END 2020-08-11 01:14 | disposition home or self-care (01) ==
LOC: EC 19:07 → UNDOADMIN 08-11 → 4SSUR 08-11 → EC 08-11 01:14
DX: R10.9 Unspecified abdominal pain (principal); R11.0 Nausea; F41.9 Anxiety disorder, unspecified; F31.9 Bipolar disorder, unspecified; E11.9 Type 2 diabetes mellitus without complications; M79.7 Fibromyalgia; K21.9 Gastro-esophageal reflux disease without esophagitis; K58.9 Irritable bowel syndrome, unspecified; Z79.890 Hormone replacement therapy; Z79.1 Long term (current) use of non-steroidal anti-inflammatories (NSAID); Z79.899 Other long term (current) drug therapy; Z79.84 Long term (current) use of oral hypoglycemic drugs; Z98.890 Other specified postprocedural states; Z88.1 Allergy status to other antibiotic agents; Z88.5 Allergy status to narcotic agent; Z90.49 Acquired absence of other specified parts of digestive tract; Z87.19 Personal history of other diseases of the digestive system
CPT/HCPCS: 36415; 80053; 82150; 82550; 83605; 83690; 84484; 85025; 81003; 74177; 96374; 96375 ×3; 96361 ×2; 99284; J2270; J2405; C9113; Q9967

== ENCOUNTER → 2020-08-20 | Outpatient (CLI) | payer OTHER ==
--- NOTE | 2020-08-20 16:33 | CT ---
EXAMINATION TYPE: CT abdomen pelvis w con DATE OF EXAM: 08/20/2020 COMPARISON: 08/10/2020 HISTORY: 35-year-old female R10.32, Left lower quadrant abdominal pain. TECHNIQUE: Contiguous axial scanning of the abdomen and pelvis following administration of 100 ml Iso jose gu[place] 300 IV contrast. Delayed images through the kidneys and coronal/sagittal reconstructions perform ed. CT DLP: 2241.6 mGycm Automated exposure control for dose reduction was used. FINDINGS: Heart normal size without pericardial effusion. Lung bases clear without pleural effusion. No focal liver lesion or biliary ductal dilatation. Portal venous system is patent. Cholecystectomy clips. Adrenal glands, kidneys, spleen, and pancreas within normal limits. No dilated small bowel, free fluid, or free air. No mesenteric or retroperitoneal lymphadenopathy. Normal appendix. Oral contrast progressed into the ascending colon. There is mild stool burden in the right side of the abdomen. No pericolonic inflammatory change. The collection on the anterior subcutaneous adipose layer overlying the superficial fascia currently has attenuation of 30 Hounsfield units and measures 15.3 cm wide by 8.4 cm craniocaudal by 4.0 cm AP (refer to coronal image 25 and sagittal image 85). This is in comparison to 17.2 x 9.1 x 5.1 cm, prev iously. Post surgical change along the anterior abdominal wall may relate to ventral abdominal wall h ernia repair. Underlying 6.7 cm wide lobule of fat just deep to the abdominal wall musculature is unc hanged. Bladder is nondistended. Uterus is visualized. Both ovaries are visualized. No abnormal fluid collect ion in the pelvis or pelvic lymphadenopathy. Bones: Mild disc bulge L5-S1. No osseous destructive process. IMPRESSION: COLLECTION (QUERY HEMATOMA) ALONG THE ANTERIOR ABDOMINAL WALL OVERLYING THE SUPERFICIAL MUSCULAR FASC IA SHOWS SLIGHT DECREASE IN SIZE CURRENTLY MEASURING 15.3 X 8.4 X 4.0 CM (VERSUS 17.2 X 9.1 X 5.1 CM, PREVIOUSLY).
== END | disposition home or self-care (01) ==
LOC: RADCTMAIN 14:15
PROVIDERS: ATTEND Surgery
DX: R10.32 Left lower quadrant pain (principal)
CPT/HCPCS: 74177; Q9967

== ENCOUNTER → 2020-08-23 | Outpatient (CLI) | payer OTHER ==
[2020-08-23 14:50] VITALS: BP 126/88; PULSE 74; RESP 18; TEMP 98.4; BMI 48.9
[2020-08-23 16:36] LABS: HGB 12.1 gm/dL (11.4-16.0); Hypochromasia Slight; MCH 26.1 pg (25.0-35.0); MCHC 32.6 g/dL (31.0-37.0); MCV 80.2 fL (80.0-100.0); Mean Platelet Volume 7.3; Platelet Count 410 k/uL (150-450); RBC 4.62 m/uL (3.80-5.40); RDW 15.2 % (11.5-15.5); WBC 10.7 k/uL (3.8-10.6)
[2020-08-24 03:21] LABS: African American GFR (CKD) 94.7 (60.0-200.0); Albumin 4.4 g/dL (3.80-4.90); Albumin/Globulin Ratio 1.91 (1.60-3.17); Anion Gap 8.5 mmol/L (4.00-12.00); BUN/Creat Ratio 16.67 Ratio (12.00-20.00); Calcium 9.6 mg/dL (8.7-10.3); Carbon Dioxide 22.5 mmol/L (21.6-31.8); Globulin 2.3 g/dL (1.6-3.3); Non-African American GFR(CKD) 81.7 (60.0-200.0); Potassium 4.5 mmol/L (3.5-5.5); Total Bilirubin 0.3 mg/dL (0.2-1.2); Total Protein 6.7 g/dL (6.2-8.2)
[2020-08-24 03:30] LABS: Folate, Serum 5.8 ng/mL
--- NOTE | 2020-09-21 12:55 | P.HPBAR ---
Bariatric H&P - History & Physicial H&P Date: 08/23/20 History & Physicial: Visit/CC: initial visit Patient initial contact: Initial weight: Initial weight in pounds: Height: 5 ft 7 in Initial BMI: Last weight: Current weight: 141.521 kg Current weight in pounds: 312.00 Current BMI: 48.9 [place] body weight (based on NIH guidelines): 61.235 kg Excess body weight loss: The patient is a 35 year-old F who presents for Bariatric Assessment. Patient presents today for bariatric consultation. She's had lifetime process previously. We 9. She is interested in sleeve gastrectomy. Past Medical History Past Medical History: Asthma, Diabetes Mellitus, Fibromyalgia, GERD/Reflux, Musculoskeletal Disorder, Sleep Apnea/CPAP/BIPAP, Thyroid Disorder Additional Past Medical History / Comment(s): Hx Migraines, DDD , IBS, NO CPAP used. HX PERFORATED DIVERTICULITIS W/ PAST Colostomy 12/2017. internal abd hematoma History of Any Multi-Drug Resistant Organisms: None Reported Past Surgical History: Bowel Resection, Breast Surgery, Cholecystectomy, Hernia Repair Additional Past Surgical History / Comment(s): Dental, Rt Breast biopsy. Colostomy 12/2017, THEN Reversal 02/2018. Cholecystectomy - 08-12-18. Hernia 08/2019 Past Anesthesia/Blood Transfusion Reactions: No Reported Reaction Past Psychological History: Anxiety, Bipolar, Depression Additional Psychological History / Comment(s): eating disorder-binge eater Smoking Status: Never smoker Past Alcohol Use History: Rare Past Drug Use History: None Reported - Past Family History Mother History Unknown: Yes Family Medical History: COPD Additional Family Medical History / Comment(s): depression, anxiety Brother(s) Family Medical History: Diabetes Mellitus Father Family Medical History: Unable to Obtain Surgical - Exam Vital Signs Temp Pulse Resp BP 98.4 F 74 18 126/88 08/23/20 14:45 08/23/20 14:45 08/23/20 14:45 08/23/20 14:45 - General no distress - Eyes PERRL - ENT normal pinna - Neck no masses - Respiratory normal expansion - Cardiovascular Rhythm: regular - Abdomen Abdomen: soft, non tender Results - Labs 08/23/20 15:31 08/23/20 15:31 Bariatric Assessment & Plan Plan: Morbid obesity. Patient is an excellent understanding sleep yesterday. She'll be scheduled for EGD. Bariatric Checklist Checklist: Plan: Checklist: EGD: 1. Hiatal hernia: 2. H. Pylori: HgbA1c: Vitamin D: Smoking: Never smoker Primary care physician referral: Dr. Alaniz Psychiatry clearance: Cardiology clearance: Sleep study: Diet journal: VTE risk score: VTE risk level: Rehab needs at discharge:
== END ==
LOC: BARWHC3 13:44
PROVIDERS: ATTEND Surgery
DX: E66.01 Morbid (severe) obesity due to excess calories (principal); Z68.42 Body mass index [BMI] 45.0-49.9, adult; E88.81 Metabolic syndrome and other insulin resistance; E55.9 Vitamin D deficiency, unspecified; J45.909 Unspecified asthma, uncomplicated; E11.9 Type 2 diabetes mellitus without complications; K21.9 Gastro-esophageal reflux disease without esophagitis; E07.9 Disorder of thyroid, unspecified; F32.9 Major depressive disorder, single episode, unspecified
CPT/HCPCS: 84425; 80053; 82607; 82746; 85027; 82306; 83036; 36415; G0463; 99211

== ENCOUNTER 2020-09-04 14:26 | Emergency (ER) | payer OTHER ==
[2020-09-04 14:39] VITALS: TEMP 98.2
[2020-09-04 15:10] VITALS: RESP 18
--- NOTE | 2020-09-04 15:26 | ED ---
Abdominal Pain HPI - General Chief Complaint: Abdominal Pain Stated Complaint: abd pain Time Seen by Provider: 09/04/20 14:42 Source: patient Mode of arrival: ambulatory Limitations: no limitations - History of Present Illness Initial Comments: Adriana is a 35-year-old woman who presents to have evaluation for chronic abdominal pain. The patient states she has been having years of sharp left- sided abdominal pain that she states is related to previous abdominal surgeries. She is following with her surgeon Dr. Meadows, who she states told her that so me adhesions may be involved and she probably will need a follow-up surgery. The patient takes [place] at home and states that she reached her daily dose limit today and was still having pains so she presented to have evaluation. The patient denies nausea or vomiting. No change in stools, including no blood, tarry stools, or pencil stools. No change in urination. No fever or chills MD Complaint: abdominal pain Onset/Timin -: days(s) Location: periumbilical, LUQ Radiation: none Severity: severe Quality: sharp Consistency: intermittent Improves With: nothing Worsens With: nothing Associated Symptoms: denies other symptoms - Related Data Home Medications Medication Instructions Recorded Confirmed Levothyroxine Sodium [Synthroid] 50 mcg PO DAILY 05/05/14 08/23/20 traZODone HCL [Desyrel] 100 mg PO HS 04/04/15 08/23/20 Topiramate [Trokendi Xr] 200 mg PO DAILY 07/19/17 08/23/20 rOPINIRole HCL [Requip] 0.5 mg PO HS 01/23/19 08/23/20 Famotidine [Pepcid] 40 mg PO DAILY 07/28/19 08/23/20 Cetirizine HCl [Zyrtec] 10 mg PO DAILY 08/30/19 08/23/20 Pregabalin [Lyrica] 150 mg PO BID 08/30/19 08/23/20 Blis[place] Fe 1.5-30 1 tab PO HS 04/21/20 08/23/20 Meloxicam 15 mg PO DAILY 06/28/20 08/23/20 ARIPiprazole [Abilify] 5 mg PO HS 08/10/20 08/23/20 Empagliflozin/Metformin HCl 1 tab PO DAILY 08/10/20 08/23/20 [Synjardy 12.5-1,000 mg Tablet] HYDROcodone/APAP 7.5-325MG [[place] 1 tab PO BID 08/10/20 08/23/20 7.5-325] HYDROcodone/APAP 7.5-325MG [[place] 1 tab PO BID PRN 08/23/20 08/23/20 7.5-325] metFORMIN HCL [metFORMIN HCL ER 1,000 mg PO DAILY 08/23/20 08/23/20 Gastric] Ergocalciferol [Vitamin D2 (1250 50,000 unit PO WEEKLY 08/30/20 08/30/20 Mcg = 57247 Iu)] Allergies Allergy/AdvReac Type Severity Reaction Status Date / Time tramadol Allergy Hallucinati Verified 09/04/20 14:39 ons valacyclovir HCl AdvReac BLURRED Verified 09/04/20 14:39 [From Valtrex] VISION Review of Systems ROS Statement: Those systems with pertinent positive or pertinent negative responses have been documented in the HPI. ROS Other: All systems not noted in ROS Statement are negative. Constitutional: Denies: fever, chills Respiratory: Denies: cough, dyspnea Cardiovascular: Denies: chest pain, palpitations, edema, syncope Gastrointestinal: Reports: abdominal pain. Denies: nausea, vomiting, diarrhea, constipation, melena, hematochezia Genitourinary: Denies: dysuria, frequency, hematuria Musculoskeletal: Denies: back pain Skin: Denies: rash Neurological: Denies: headache, weakness, numbness Past Medical History Past Medical History: Asthma, Diabetes Mellitus, Fibromyalgia, GERD/Reflux, Musculoskeletal Disorder, Sleep Apnea/CPAP/BIPAP, Thyroid Disorder Additional Past Medical History / Comment(s): Hx Migraines, DDD , IBS, NO CPAP used. HX PERFORATED DIVERTICULITIS W/ PAST Colostomy 12/2017. internal abd hematoma History of Any Multi-Drug Resistant Organisms: None Reported Past Surgical History: Bowel Resection, Breast Surgery, Cholecystectomy, Hernia Repair Additional Past Surgical History / Comment(s): Dental, Rt Breast biopsy. Colostomy 12/2017, THEN Reversal 02/2018. Cholecystectomy - 08-12-18. Hernia 08/2019 Past Anesthesia/Blood Transfusion Reactions: No Reported Reaction Past Psychological History: Anxiety, Bipolar, Depression Smoking Status: Never smoker Past Alcohol Use History: Rare Past Drug Use History: None Reported - Past Family History Mother History Unknown: Yes Family Medical History: COPD Additional Family Medical History / Comment(s): depression, anxiety Brother(s) Family Medical History: Diabetes Mellitus Father Family Medical History: Unable to Obtain General Exam Limitations: no limitations General appearance: alert, in no apparent distress Head exam: Present: atraumatic, normocephalic Eye exam: Present: normal appearance. Absent: scleral icterus, conjunctival injection Neck exam: Present: normal inspection Respiratory exam: Present: normal lung sounds bilaterally. Absent: respiratory distress, wheezes, rales, rhonchi, stridor Cardiovascular Exam: Present: regular rate, normal rhythm, normal heart sounds. Absent: systolic murmur, diastolic murmur, rubs, gallop GI/Abdominal exam: Present: soft, normal bowel sounds. Absent: distended, tenderness, guarding, rebound, rigid, mass, pulsatile mass Extremities exam: Present: normal inspection, normal capillary refill. Absent: pedal edema, calf tenderness Back exam: Present: normal inspection. Absent: CVA tenderness (R), CVA tenderne ss (L), vertebral tenderness Neurological exam: Present: alert Skin exam: Present: warm, dry, intact, normal color. Absent: rash Course Vital Signs 09/04/20 09/04/20 09/04/20 14:37 15:08 15:51 Temperature 98.2 F Pulse Rate 89 95 100 Respiratory 20 18 18 Rate Blood Pressure 124/59 130/67 111/67 O2 Sat by Pulse 97 95 95 Oximetry 09/04/20 09/04/20 19:22 20:22 Temperature Pulse Rate 83 76 Respiratory 18 18 Rate Blood Pressure 105/79 104/57 O2 Sat by Pulse 95 93 L Oximetry Medical Decision Making - Lab Data Result diagrams: 09/04/20 14:58 09/04/20 14:58 Lab Results 09/04/20 09/04/20 09/04/20 Range/Units 14:58 14:58 14:58 WBC 9.7 (3.8-10.6) k/uL RBC 4.87 (3.80-5.40) m/uL Hgb 12.8 (11.4-16.0) gm/dL Hct 39.0 (34.0-46.0) % MCV 80.2 (80.0-100.0) fL MCH 26.3 (25.0-35.0) pg MCHC 32.8 (31.0-37.0) g/dL RDW 14.9 (11.5-15.5) % Plt Count 386 (150-450) k/uL MPV 7.6 Neutrophils % 56 % Lymphocytes % 31 % Monocytes % 6 % Eosinophils % 4 % Basophils % 1 % Neutrophils # 5.4 (1.3-7.7) k/uL Lymphocytes # 3.0 (1.0-4.8) k/uL Monocytes # 0.6 (0-1.0) k/uL Eosinophils # 0.4 (0-0.7) k/uL Basophils # 0.1 (0-0.2) k/uL Hypochromasia Slight Sodium (137-145) mmol/L Potassium (3.5-5.1) mmol/L Chloride (98-107) mmol/L Carbon Dioxide (22-30) mmol/L Anion Gap mmol/L BUN (7-17) mg/dL Creatinine (0.52-1.04) mg/dL Est GFR (CKD-EPI)AfAm (>60 ml/min/1.73 sqM) Est GFR (CKD-EPI)NonAf (>60 ml/min/1.73 sqM) Glucose (74-99) mg/dL Calcium (8.4-10.2) mg/dL Total Bilirubin (0.2-1.3) mg/dL AST (14-36) U/L ALT (4-34) U/L Alkaline Phosphatase (38-126) U/L C-Reactive Protein (<1.0) mg/dL Total Protein (6.3-8.2) g/dL Albumin (3.5-5.0) g/dL Amylase (30-110) U/L Lipase (23-300) U/L Urine Color Yellow Urine Appearance Cloudy H (Clear) Urine pH 7.0 (5.0-8.0) Ur Specific [place] 1.022 (1.001-1.035) Urine Protein Negative (Negative) Urine Glucose (UA) Negative (Negative) Urine Ketones Negative (Negative) Urine Blood Negative (Negative) Urine Nitrite Negative (Negative) Urine Bilirubin Negative (Negative) Urine Urobilinogen <2.0 (<2.0) mg/dL Ur Leukocyte Esterase Moderate H (Negative) Urine WBC 1 (0-5) /hpf Ur Squamous Epith Cells 2 (0-4) /hpf Amorphous Sediment Moderate H (None) /hpf Urine Bacteria Many H (None) /hpf Urine Mucus Rare H (None) /hpf Urine HCG, Qual Not Detected (Not Detectd) 09/04/20 Range/Units 14:58 WBC (3.8-10.6) k/uL RBC (3.80-5.40) m/uL Hgb (11.4-16.0) gm/dL Hct (34.0-46.0) % MCV (80.0-100.0) fL MCH (25.0-35.0) pg MCHC (31.0-37.0) g/dL RDW (11.5-15.5) % Plt Count (150-450) k/uL MPV Neutrophils % % Lymphocytes % % Monocytes % % Eosinophils % % Basophils % % Neutrophils # (1.3-7.7) k/uL Lymphocytes # (1.0-4.8) k/uL Monocytes # (0-1.0) k/uL Eosinophils # (0-0.7) k/uL Basophils # (0-0.2) k/uL Hypochromasia Sodium 138 (137-145) mmol/L Potassium 4.3 (3.5-5.1) mmol/L Chloride 108 H (98-107) mmol/L Carbon Dioxide 20 L (22-30) mmol/L Anion Gap 10 mmol/L BUN 17 (7-17) mg/dL Creatinine 0.92 (0.52-1.04) mg/dL Est GFR (CKD-EPI)AfAm >90 (>60 ml/min/1.73 sqM) Est GFR (CKD-EPI)NonAf 80 (>60 ml/min/1.73 sqM) Glucose 120 H (74-99) mg/dL Calcium 9.7 (8.4-10.2) mg/dL Total Bilirubin 0.3 (0.2-1.3) mg/dL AST 38 H (14-36) U/L ALT 35 H (4-34) U/L Alkaline Phosphatase 86 (38-126) U/L C-Reactive Protein 2.1 H (<1.0) mg/dL Total Protein 7.3 (6.3-8.2) g/dL Albumin 4.2 (3.5-5.0) g/dL Amylase 91 (30-110) U/L Lipase 280 (23-300) U/L Urine Color Urine Appearance (Clear) Urine pH (5.0-8.0) Ur Specific [place] (1.001-1.035) Urine Protein (Negative) Urine Glucose (UA) (Negative) Urine Ketones (Negative) Urine Blood (Negative) Urine Nitrite (Negative) Urine Bilirubin (Negative) Urine Urobilinogen (<2.0) mg/dL Ur Leukocyte Esterase (Negative) Urine WBC (0-5) /hpf Ur Squamous Epith Cells (0-4) /hpf Amorphous Sediment (None) /hpf Urine Bacteria (None) /hpf Urine Mucus (None) /hpf Urine HCG, Qual (Not Detectd) Disposition Clinical Impression: Abdominal pain Disposition: HOME SELF-CARE Condition: Good Instructions (If sedation given, give patient instructions): Abdominal Pain (ED) Is patient prescribed a controlled substance at d/c from ED?: No Referrals: Edgardo Inman MD [Primary Care Provider] - 1-2 days
[2020-09-04] MEDS ORDERED: MORPHINE SULFATE 4 MG/ML SYRINGE IV STA (15:27)
[2020-09-04 15:30] LABS: Basophils # (A) 0.1 k/uL (0-0.2); Basophils % (A) 1 %; Eosinophils # (A) 0.4 k/uL (0-0.7); Eosinophils % (A) 4 %; HGB 12.8 gm/dL (11.4-16.0); Hypochromasia Slight; Lymphocytes % (A) 31 %; MCH 26.3 pg (25.0-35.0); MCHC 32.8 g/dL (31.0-37.0); MCV 80.2 fL (80.0-100.0); Mean Platelet Volume 7.6; Monocytes # (A) 0.6 k/uL (0-1.0); Monocytes % (A) 6 %; Neutrophils # (A) 5.4 k/uL (1.3-7.7); Neutrophils % (A) 56 %; Platelet Count 386 k/uL (150-450); RBC 4.87 m/uL (3.80-5.40); RDW 14.9 % (11.5-15.5); WBC 9.7 k/uL (3.8-10.6)
[2020-09-04 15:38] LABS: Amorphous Sediment,Urine Moderate /hpf; Appearance,Urine Cloudy (Clear); Bacteria,Urine Many /hpf; Bilirubin,Urine Negative (Negative); Blood,Urine Negative (Negative); Color,Urine Yellow; Glucose,Urine (UA) Negative (Negative); Ketones,Urine Negative (Negative); Leukocyte Esterase,Urine Moderate (Negative); Mucus,Urine Rare /hpf; Nitrite,Urine Negative (Negative); Protein,Urine Negative (Negative); Specific Gravity,Urine 1.022 (1.001-1.035); Squamous Epithelial Cell,Urine 2 /hpf (0-4); Urobilinogen,Urine <2.0 mg/dL (<2.0); WBC,Urine 1 /hpf (0-5)
--- NOTE | 2020-09-04 15:39 | XR ---
EXAMINATION TYPE: XR KUB DATE OF EXAM: 09/04/2020 COMPARISON: 10/25/2019 HISTORY: Abdominal pain TECHNIQUE: 2 views upright FINDINGS: There is no sign of intestinal obstruction or pneumoperitoneum. Fecal pattern is normal. Th ere are no pathologic calcifications. Lung bases are clear. IMPRESSION: Nonacute abdomen. No change.
[2020-09-04 15:51] LABS: ALT 35 U/L (4-34); AST 38 U/L (14-36); African American GFR (CKD) >90 (>60 ml/min/1.73 sqM); Albumin 4.2 g/dL (3.5-5.0); Alkaline Phosphatase 86 U/L (38-126); Amylase 91 U/L (30-110); Anion Gap 10 mmol/L; Blood Urea Nitrogen 17 mg/dL (7-17); C Reactive Protein 2.1 mg/dL (<1.0); Calcium 9.7 mg/dL (8.4-10.2); Carbon Dioxide 20 mmol/L (22-30); Chloride 108 mmol/L (98-107); Glucose 120 mg/dL (74-99); Lipase 280 U/L (23-300); Non-African American GFR(CKD) 80 (>60 ml/min/1.73 sqM); Potassium 4.3 mmol/L (3.5-5.1); Sodium 138 mmol/L (137-145); Total Bilirubin 0.3 mg/dL (0.2-1.3); Total Protein 7.3 g/dL (6.3-8.2)
[2020-09-04] MEDS ORDERED: SODIUM CHLORIDE 0.9% 1,000 ML IV ONE (17:00)
[2020-09-04] MEDS ORDERED: HYDROmorphone 0.5 MG/0.5 ML SYRINGE IVP STA (18:54)
[2020-09-04 20:23] VITALS: BP 104/57; PULSE 76
== END 2020-09-04 20:58 | disposition home or self-care (01) ==
LOC: EC 14:26
DX: R10.32 Left lower quadrant pain (principal); J45.909 Unspecified asthma, uncomplicated; E11.9 Type 2 diabetes mellitus without complications; K21.9 Gastro-esophageal reflux disease without esophagitis; G47.33 Obstructive sleep apnea (adult) (pediatric); F41.9 Anxiety disorder, unspecified; F32.9 Major depressive disorder, single episode, unspecified
CPT/HCPCS: 36415; 80053; 82150; 83690; 85025; 86140; 81001; 81025; 74018; 99284; 96374; 96375; 96361; J2270; J1170

== ENCOUNTER 2020-09-14 16:49 | Emergency (ER) | payer OTHER ==
[2020-09-14 16:53] VITALS: TEMP 98.3
[2020-09-14] MEDS ORDERED: SODIUM CHLORIDE 0.9% 1,000 ML IV STA (17:06)
[2020-09-14] MEDS ORDERED: ONDANSETRON 4 MG/2 ML VIAL IVP STA (17:06)
[2020-09-14] MEDS ORDERED: HYDROmorphone 0.5 MG/0.5 ML SYRINGE IVP STA ×2 (17:06→18:00)
[2020-09-14 17:21] LABS: Basophils # (A) 0.1 k/uL (0-0.2); Basophils % (A) 1 %; Eosinophils # (A) 0.4 k/uL (0-0.7); Eosinophils % (A) 3 %; HCT 38.4 % (34.0-46.0); HGB 12.5 gm/dL (11.4-16.0); Hypochromasia Slight; Lymphocytes # (A) 3.3 k/uL (1.0-4.8); Lymphocytes % (A) 27 %; MCH 25.8 pg (25.0-35.0); MCHC 32.6 g/dL (31.0-37.0); MCV 79.1 fL (80.0-100.0); Mean Platelet Volume 7.3; Monocytes # (A) 0.6 k/uL (0-1.0); Monocytes % (A) 5 %; Neutrophils # (A) 7.8 k/uL (1.3-7.7); Neutrophils % (A) 63 %; Platelet Count 399 k/uL (150-450); RBC 4.85 m/uL (3.80-5.40); RDW 15.2 % (11.5-15.5); WBC 12.3 k/uL (3.8-10.6)
--- NOTE | 2020-09-14 17:28 | ED ---
General Adult HPI - General Chief complaint: Abdominal Pain Stated complaint: abd pain Time Seen by Provider: 09/14/20 16:54 Source: family Mode of arrival: ambulatory Limitations: no limitations - History of Present Illness Initial comments: 35-year-old female with a past medical history of asthma, diabetes mellitus, fibromyalgia, GERD, perforated diverticulitis presents to the emergency room for a chief complaint of abdominal pain. Patient reports it has been ongoing on and off for a year after her hernia repair with Dr Meadows. States that today the pain worsened when she went to stand up at work. Patient states she is supposed to get weight loss surgery later this year but is not sure what to do until then. She denies fevers. Denies diarrhea, does admit to nausea. Patient has no other complaints at this time including shortness of breath, chest pain , nausea or vomiting, headache, or visual changes. - Related Data Home Medications Medication Instructions Recorded Confirmed Levothyroxine Sodium [Synthroid] 50 mcg PO DAILY 05/05/14 09/14/20 traZODone HCL [Desyrel] 100 mg PO HS 04/04/15 09/14/20 Topiramate [Trokendi Xr] 200 mg PO DAILY 07/19/17 09/14/20 rOPINIRole HCL [Requip] 0.5 mg PO HS 01/23/19 09/14/20 Famotidine [Pepcid] 40 mg PO DAILY 07/28/19 09/14/20 Cetirizine HCl [Zyrtec] 10 mg PO DAILY 08/30/19 09/14/20 Pregabalin [Lyrica] 150 mg PO BID 08/30/19 09/14/20 [place] Fe 1.5-30 1 tab PO HS 04/21/20 09/14/20 Meloxicam 15 mg PO DAILY 06/28/20 09/14/20 Empagliflozin/Metformin HCl 1 tab PO DAILY 08/10/20 09/14/20 [Synjardy 12.5-1,000 mg Tablet] HYDROcodone/APAP 7.5-325MG [[place] 1 tab PO BID 08/10/20 09/14/20 7.5-325] Ergocalciferol [Vitamin D2 (1250 50,000 unit PO GARCIA 08/30/20 09/14/20 Mcg = 80089 Iu)] ARIPiprazole [Abilify] 2 mg PO DAILY 09/14/20 09/14/20 Empagliflozin [Jardiance] 25 mg PO DIRECTED 09/14/20 09/14/20 Erenumab-Aooe [A[place]ov[place] 140 mg SQ Q30D 09/14/20 09/14/20 Autoinjector (2 Pack)] Ondansetron Odt [Zofran Odt] 8 mg PO Q8HR PRN 09/14/20 09/14/20 Venlafaxine HCl [Effexor XR] 225 mg PO DAILY 09/14/20 09/14/20 metFORMIN HCL 1,000 mg PO DIRECTED 09/14/20 09/14/20 Previous Rx's Medication Instructions Recorded Dicyclomine [Bentyl] 20 mg PO TID PRN #20 tablet 09/14/20 Allergies Allergy/AdvReac Type Severity Reaction Status Date / Time tramadol Allergy Hallucinati Verified 09/14/20 17:39 ons valacyclovir HCl AdvReac BLURRED Verified 09/14/20 17:39 [From Valtrex] VISION Review of Systems ROS Statement: Those systems with pertinent positive or pertinent negative responses have been documented in the HPI. ROS Other: All systems not noted in ROS Statement are negative. Past Medical History Past Medical History: Asthma, Diabetes Mellitus, Fibromyalgia, GERD/Reflux, Musculoskeletal Disorder, Sleep Apnea/CPAP/BIPAP, Thyroid Disorder Additional Past Medical History / Comment(s): Hx Migraines, DDD , IBS, NO CPAP used. HX PERFORATED DIVERTICULITIS W/ PAST Colostomy 12/2017. internal abd he matoma History of Any Multi-Drug Resistant Organisms: None Reported Past Surgical History: Bowel Resection, Breast Surgery, Cholecystectomy, Hernia Repair Additional Past Surgical History / Comment(s): Dental, Rt Breast biopsy. Colostomy 12/2017, THEN Reversal 02/2018. Cholecystectomy - -06-01. Hernia 08/2019 Past Anesthesia/Blood Transfusion Reactions: No Reported Reaction Past Psychological History: Anxiety, Bipolar, Depression Smoking Status: Never smoker Past Alcohol Use History: Rare Past Drug Use History: None Reported - Past Family History Mother History Unknown: Yes Family Medical History: COPD Additional Family Medical History / Comment(s): depression, anxiety Brother(s) Family Medical History: Diabetes Mellitus Father Family Medical History: Unable to Obtain General Exam Limitations: no limitations General appearance: alert, in no apparent distress Head exam: Present: atraumatic, normocephalic, normal inspection Eye exam: Present: normal appearance, PERRL, EOMI. Absent: scleral icterus, conjunctival injection, periorbital swelling ENT exam: Present: normal exam, mucous membranes moist Neck exam: Present: normal inspection. Absent: tenderness, meningismus, lymphadenopathy Respiratory exam: Present: normal lung sounds bilaterally. Absent: respiratory distress, wheezes, rales, rhonchi, stridor Cardiovascular Exam: Present: regular rate, normal rhythm, normal heart sounds. Absent: systolic murmur, diastolic murmur, rubs, gallop, clicks GI/Abdominal exam: Present: soft, tenderness (Mild generalized lower abdominal tenderness), normal bowel sounds. Absent: distended, guarding, rebound, rigid Course Vital Signs 09/14/20 16:50 Temperature 98.3 F Pulse Rate 82 Respiratory 20 Rate Blood Pressure 136/90 O2 Sat by Pulse 98 Oximetry Medical Decision Making - Medical Decision Making Vitals are stable. Patient well-appearing. Patient does have minimal generalized abdominal tenderness. CBC does show mild psychosis. CMP unremarkable. Urinalysis does show 4+ glucose, Patient does have a history of diabetes. I did review several previous CAT scans in the past 6 months on patient. She did have an improving collection along the anterior abdominal wall overlying the superficial muscular fascia from about 1 month ago. It appears from the chart that Dr. Meadows was contacted at that time and patient was to follow-up with him outpatient. Patient reports she does not have anything scheduled with him at this time that has been managing her chronic abdominal pain through him. I did reevaluate patient and she continued to have abdominal pain. CT abdomen and pelvis shows a redemonstrated moderate to large ventral abdominal wall skin thickening which with fluid which may represent seroma. No gas or progression of inflammatory changes. No new abnormality. At this time patient be discharged home to follow up with primary care. She is resting comfortably, sleeping. She'll return for any worsening symptoms. - Lab Data Result diagrams: 09/14/20 17:08 09/14/20 17:08 Lab Results 09/14/20 09/14/20 09/14/20 Range/Units 17:08 17:08 17:08 WBC 12.3 H (3.8-10.6) k/uL RBC 4.85 (3.80-5.40) m/uL Hgb 12.5 (11.4-16.0) gm/dL Hct 38.4 (34.0-46.0) % MCV 79.1 L (80.0-100.0) fL MCH 25.8 (25.0-35.0) pg MCHC 32.6 (31.0-37.0) g/dL RDW 15.2 (11.5-15.5) % Plt Count 399 (150-450) k/uL MPV 7.3 Neutrophils % 63 % Lymphocytes % 27 % Monocytes % 5 % Eosinophils % 3 % Basophils % 1 % Neutrophils # 7.8 H (1.3-7.7) k/uL Lymphocytes # 3.3 (1.0-4.8) k/uL Monocytes # 0.6 (0-1.0) k/uL Eosinophils # 0.4 (0-0.7) k/uL Basophils # 0.1 (0-0.2) k/uL Hypochromasia Slight Sodium (137-145) mmol/L Potassium (3.5-5.1) mmol/L Chloride (98-107) mmol/L Carbon Dioxide (22-30) mmol/L Anion Gap mmol/L BUN (7-17) mg/dL Creatinine (0.52-1.04) mg/dL Est GFR (CKD-EPI)AfAm (>60 ml/min/1.73 sqM) Est GFR (CKD-EPI)NonAf (>60 ml/min/1.73 sqM) Glucose (74-99) mg/dL Calcium (8.4-10.2) mg/dL Total Bilirubin (0.2-1.3) mg/dL AST (14-36) U/L ALT (4-34) U/L Alkaline Phosphatase (38-126) U/L Total Protein (6.3-8.2) g/dL Albumin (3.5-5.0) g/dL Amylase (30-110) U/L Lipase (23-300) U/L Urine Color Light Yellow Urine Appearance Cloudy H (Clear) Urine pH 7.5 (5.0-8.0) Ur Specific [place] 1.029 (1.001-1.035) Urine Protein Trace H (Negative) Urine Glucose (UA) 4+ H (Negative) Urine Ketones Negative (Negative) Urine Blood Negative (Negative) Urine Nitrite Negative (Negative) Urine Bilirubin Negative (Negative) Urine Urobilinogen <2.0 (<2.0) mg/dL Ur Leukocyte Esterase Moderate H (Negative) Urine RBC 2 (0-5) /hpf Urine WBC 2 (0-5) /hpf Ur Squamous Epith Cells 4 (0-4) /hpf Amorphous Sediment Rare H (None) /hpf Urine Bacteria Occasional H (None) /hpf Urine Mucus Rare H (None) /hpf Urine HCG, Qual Not Detected (Not Detectd) 09/14/20 Range/Units 17:08 WBC (3.8-10.6) k/uL RBC (3.80-5.40) m/uL Hgb (11.4-16.0) gm/dL Hct (34.0-46.0) % MCV (80.0-100.0) fL MCH (25.0-35.0) pg MCHC (31.0-37.0) g/dL RDW (11.5-15.5) % Plt Count (150-450) k/uL MPV Neutrophils % % Lymphocytes % % Monocytes % % Eosinophils % % Basophils % % Neutrophils # (1.3-7.7) k/uL Lymphocytes # (1.0-4.8) k/uL Monocytes # (0-1.0) k/uL Eosinophils # (0-0.7) k/uL Basophils # (0-0.2) k/uL Hypochromasia Sodium 140 (137-145) mmol/L Potassium 4.3 (3.5-5.1) mmol/L Chloride 111 H (98-107) mmol/L Carbon Dioxide 18 L (22-30) mmol/L Anion Gap 11 mmol/L BUN 21 H (7-17) mg/dL Creatinine 0.98 (0.52-1.04) mg/dL Est GFR (CKD-EPI)AfAm 85 (>60 ml/min/1.73 sqM) Est GFR (CKD-EPI)NonAf 74 (>60 ml/min/1.73 sqM) Glucose 98 (74-99) mg/dL Calcium 9.4 (8.4-10.2) mg/dL Total Bilirubin 0.3 (0.2-1.3) mg/dL AST 30 (14-36) U/L ALT 29 (4-34) U/L Alkaline Phosphatase 88 (38-126) U/L Total Protein 7.3 (6.3-8.2) g/dL Albumin 4.2 (3.5-5.0) g/dL Amylase 103 (30-110) U/L Lipase 290 (23-300) U/L Urine Color Urine Appearance (Clear) Urine pH (5.0-8.0) Ur Specific [place] (1.001-1.035) Urine Protein (Negative) Urine Glucose (UA) (Negative) Urine Ketones (Negative) Urine Blood (Negative) Urine Nitrite (Negative) Urine Bilirubin (Negative) Urine Urobilinogen (<2.0) mg/dL Ur Leukocyte Esterase (Negative) Urine RBC (0-5) /hpf Urine WBC (0-5) /hpf Ur Squamous Epith Cells (0-4) /hpf Amorphous Sediment (None) /hpf Urine Bacteria (None) /hpf Urine Mucus (None) /hpf Urine HCG, Qual (Not Detectd) Disposition Clinical Impression: Abdominal pain Disposition: HOME SELF-CARE Condition: Fair Instructions (If sedation given, give patient instructions): Abdominal Pain (ED) Additional Instructions: Please follow-up with your doctor in one to 2 days. Follow up with your surgeon as well. Return to the emergency room for any worsening symptoms. Prescriptions: Dicyclomine [Bentyl] 20 mg PO TID PRN #20 tablet PRN Reason: abdominal pain Is patient prescribed a controlled substance at d/c from ED?: No Referrals: Edgardo Inman MD [Primary Care Provider] - 1-2 days Brayan Meadows MD [Family Provider] - 1-2 days Time of Disposition: 19:01
[2020-09-14 17:29] LABS: Amorphous Sediment,Urine Rare /hpf; Appearance,Urine Cloudy (Clear); Bacteria,Urine Occasional /hpf; Bilirubin,Urine Negative (Negative); Blood,Urine Negative (Negative); Color,Urine Light Yellow; Glucose,Urine (UA) 4+ (Negative); Ketones,Urine Negative (Negative); Leukocyte Esterase,Urine Moderate (Negative); Mucus,Urine Rare /hpf; Nitrite,Urine Negative (Negative); PH, Urine 7.5 (5.0-8.0); Protein,Urine Trace (Negative); RBC,Urine 2 /hpf (0-5); Specific Gravity,Urine 1.029 (1.001-1.035); Squamous Epithelial Cell,Urine 4 /hpf (0-4); Urobilinogen,Urine <2.0 mg/dL (<2.0); WBC,Urine 2 /hpf (0-5)
[2020-09-14 17:46] LABS: Albumin 4.2 g/dL (3.5-5.0); Calcium 9.4 mg/dL (8.4-10.2); Potassium 4.3 mmol/L (3.5-5.1); Total Bilirubin 0.3 mg/dL (0.2-1.3); Total Protein 7.3 g/dL (6.3-8.2)
[2020-09-14] MEDS ORDERED: KETOROLAC 15 MG/ML 1 ML VIAL IVP STA (18:00)
--- NOTE | 2020-09-14 19:15 | CT ---
EXAMINATION TYPE: CT abdomen pelvis w con DATE OF EXAM: 09/14/2020 COMPARISON: 08/20/2020. HISTORY: abdominal pain, nausea, vomiting CT DLP: 3146.4 mGycm Automated exposure control for dose reduction was used. TECHNIQUE: Helical acquisition of images was performed from the lung bases through the pelvis. CONTRAST: Performed without Oral Contrast and with IV Contrast, patient injected with 100 mL of Isovue 300. FINDINGS: LUNG BASES: No significant abnormality is appreciated. LIVER/GB: No significant abnormality is appreciated. Cholecystectomy seen. PANCREAS: No significant abnormality is seen. SPLEEN: No significant abnormality is seen. ADRENALS: No significant abnormality is seen. KIDNEYS: No significant abnormality is seen. FREE AIR: No free air is visualized. RETROPERITONEAL ADENOPATHY: None visualized REPRODUCTIVE ORGANS: No significant abnormality is seen URINARY BLADDER: No significant abnormality is seen. PELVIC ADENOPATHY: None visualized. OSSEOUS STRUCTURES: No significant abnormality is seen. BOWEL: No bowel obstruction or free air. Redemonstrated is confluent soft tissue thickening with flu id within the anterior abdominal wall subcutaneous soft tissues measuring approximately 10.8 x 3 cm. There is mild surrounding fat stranding. Ventral wall defect with small fat containing hernia is seen . Normal appendix. OTHER: None. IMPRESSION: REDEMONSTRATED MODERATE TO LARGE VENTRAL ABDOMINAL WALL SKIN THICKENING WITH FLUID WHICH MAY REPRESEN T SEROMA. NO SOFT TISSUE GAS OR PROGRESSION OF INFLAMMATORY CHANGES. Associated hernia. No new abnormality.
[2020-09-14] MEDS ORDERED: ACET/COD 300 MG/30 MG STARTER PACK 6 TAB BTL PO STA (19:26)
[2020-09-14 19:42] VITALS: BP 131/82; PULSE 71; RESP 17
== END 2020-09-14 19:41 | disposition home or self-care (01) ==
LOC: EC 16:49
DX: R10.84 Generalized abdominal pain (principal); E11.9 Type 2 diabetes mellitus without complications; J45.909 Unspecified asthma, uncomplicated; K21.9 Gastro-esophageal reflux disease without esophagitis; M79.7 Fibromyalgia; E07.9 Disorder of thyroid, unspecified; G47.33 Obstructive sleep apnea (adult) (pediatric); Z79.84 Long term (current) use of oral hypoglycemic drugs; Z99.81 Dependence on supplemental oxygen; Z93.3 Colostomy status
CPT/HCPCS: 36415; 80053; 82150; 83690; 85025; 81001; 81025; 74177; 99284; 96374; 96375; 96376 ×2; J2405; J1885; J1170; Q9967

== ENCOUNTER 2020-09-24 06:57 | Observation (INO) | payer OTHER ==
[2020-09-22 10:28] VITALS: BMI 48.5
[~2020-09-24 06:57] MED LIST changes: +ACETAMINOPHEN TAB 500 MG TAB PO PRN; -DEXAMETHASONE SOD PHOSPHATE 10 MG/ML 1 ML VIAL IV ONE; +DEXAMETHASONE SOD PHOSPHATE 4 MG/ML 1 ML VIAL IV ONE; -HEPARIN SODIUM,PORCINE 5,000 UNIT/ML 1 ML VIAL SQ ONE; +HEPARIN SODIUM,PORCINE/PF 5,000 UNIT/0.5 ML SYRINGE SQ PRN; +LIDOCAINE 1% (10MG/ML) FOR IV START INTRADERMA PRN; +Pre Op ABX Message 1 EACH MISC MISCELLANE ONE; -SCOPOLAMINE 1.5MG/72HR PATCH TRANSDERM ONE; -fentaNYL (PF) 50 MCG/ML 2 ML AMP IV PRN
[2020-09-24] MEDS: LACTATED RINGERS 1,000 ML IV SCH ×5 (07:50→14:21)
[2020-09-24 07:58] LABS: Glucose,Whole Blood 123 mg/dL (75-99)
--- NOTE | 2020-09-24 09:14 | P.GSHP ---
History of Present Illness H&P Date: 09/24/20 Chief Complaint: abdominal pain, adhesions this is a 35-year-old female with a cocomplexh. Surgical history. Patient resents today for lysis of adhesions. She's had chronic complaints of abdominal pain Past Medical History Past Medical History: Asthma, Diabetes Mellitus, Fibromyalgia, GERD/Reflux, Sleep Apnea/CPAP/BIPAP, Thyroid Disorder Additional Past Medical History / Comment(s): Migraines, DDD , IBS, NO CPAP used. HX PERFORATED DIVERTICULITIS, internal abd hematoma, seasonal allergies, History of Any Multi-Drug Resistant Organisms: None Reported Past Surgical History: Bowel Resection, Breast Surgery, Cholecystectomy, Hernia Repair Additional Past Surgical History / Comment(s): Rt Breast biopsy. bowel resection with Colostomy/ later colostomy Reversal Past Anesthesia/Blood Transfusion Reactions: No Reported Reaction Smoking Status: Never smoker - Past Family History Mother History Unknown: Yes Family Medical History: No Reported History Additional Family Medical History / Comment(s): . Brother(s) Family Medical History: Diabetes Mellitus Father Family Medical History: Unable to Obtain Medications and Allergies Home Medications Medication Instructions Recorded Confirmed Type Levothyroxine Sodium [Synthroid] 50 mcg PO DAILY 05/05/14 09/24/20 History traZODone HCL [Desyrel] 100 mg PO HS 04/04/15 09/22/20 History Topiramate [Trokendi Xr] 200 mg PO DAILY 07/19/17 09/24/20 History rOPINIRole HCL [Requip] 0.5 mg PO HS 01/23/19 09/22/20 History Famotidine [Pepcid] 40 mg PO DAILY 07/28/19 09/24/20 History Cetirizine HCl [Zyrtec] 10 mg PO DAILY 08/30/19 09/24/20 History Pregabalin [Lyrica] 150 mg PO BID 08/30/19 09/22/20 History Blisovi Fe 1.5-30 1 tab PO HS 04/21/20 09/22/20 History Meloxicam 15 mg PO DAILY 06/28/20 09/22/20 History HYDROcodone/APAP 7.5-325MG [[place] 1 tab PO BID PRN 08/10/20 09/24/20 History 7.5-325] ARIPiprazole [Abilify] 2 mg PO HS 09/14/20 09/22/20 History Ondansetron Odt [Zofran Odt] 8 mg PO Q8HR PRN 09/14/20 09/24/20 History Venlafaxine HCl [Effexor XR] 225 mg PO HS 09/14/20 09/22/20 History Albuterol Inhaler [Ventolin Hfa 1 puff INHALATION Q4-6H PRN 09/22/20 09/24/20 History Inhaler] Empagliflozin/Metformin HCl 1 each PO QAM 09/22/20 09/24/20 History [Synjardy 12.5-1,000 mg Tablet] Erenumab-Aooe [Aimovig 140 mg SQ QMONTHLY 09/22/20 09/24/20 History Autoinjector] Ergocalciferol [Vitamin D2 (1250 50,000 unit PO GARCIA 09/22/20 09/24/20 History Mcg = 10554 Iu)] Allergies Allergy/AdvReac Type Severity Reaction Status Date / Time codeine Allergy Hallucinati Verified 09/22/20 10:12 ons tramadol Allergy Hallucinati Verified 09/22/20 10:12 ons valacyclovir HCl AdvReac BLURRED Verified 09/22/20 10:12 [From Valtrex] VISION Surgical - Exam Vital Signs Temp Pulse Resp BP Pulse Ox 97.9 F 82 16 119/58 96 09/24/20 07:38 09/24/20 07:38 09/24/20 07:38 09/24/20 07:38 09/24/20 07:38 - General well developed, well nourished, no distress - Eyes PERRL - ENT normal pinna - Neck no masses - Respiratory normal expansion Results - Labs Abnormal Lab Results - Last 24 Hours (Table) 09/24/20 Range/Units 07:47 POC Glucose (mg/dL) 123 H (75-99) mg/dL Assessment and Plan Assessment: adhesions. We'll perform endoscopic lysis of adhesions.
[2020-09-24] MEDS ORDERED: PROPOFOL 10 MG/ML 20 ML VIAL IV ONE (09:19)
[2020-09-24] MEDS ORDERED: SUCCINYLCHOLINE CHLORIDE 100 MG/5 ML SYR IV ONE (09:19)
[2020-09-24] MEDS ORDERED: MIDAZOLAM 2 MG/2 ML VIAL ONE (09:19)
[2020-09-24] MEDS ORDERED: ROCURONIUM 10 MG/ML (5 ML VIAL) IV ONE (09:19)
[2020-09-24] MEDS ORDERED: GLYCOPYRROLATE 0.2 MG/ML 2 ML VIAL ONE (09:19)
[2020-09-24] MEDS ORDERED: fentaNYL (PF) 50 MCG/ML 2 ML AMP ONE (09:19)
[2020-09-24] MEDS ORDERED: NEOSTIGMINE 1 MG/ML 10 ML VIAL ONE (09:19)
[2020-09-24] MEDS ORDERED: LIDOCAINE 1% INJ 10MG/ML (20 ML MDV) ONE (09:19)
[2020-09-24] MEDS ORDERED: BUPIVACAIN-EPI 0.5%-1:200,000 30 ML VIAL SQ ONE (09:26)
[2020-09-24] MEDS ORDERED: SODIUM CHLORIDE 0.9% 100 ML with ceFAZolin 3,000 MG IV ONE ×2 (09:32)
[2020-09-24] MEDS ORDERED: ONDANSETRON 4 MG/2 ML VIAL IVP PRN (10:44)
[2020-09-24] MEDS ORDERED: NALOXONE 0.4 MG/ML 1 ML VIAL IV PRN (10:44)
[2020-09-24] MEDS ORDERED: LACTATED RINGERS 1,000 ML IV ONE (10:44)
--- NOTE | 2020-09-24 10:44 | P.OP ---
Date of Procedure: 09/24/20 Preoperative Diagnosis: adhesions Postoperative Diagnosis: adhesions Procedure(s) Performed: laparoscopic lysis of adhesions Anesthesia: GILL Surgeon: Brayan Meadows Estimated Blood Loss (ml): 10 Pathology: none sent Condition: stable Disposition: PACU Description of Procedure: the patient's placed on the operative table in the supine position. She received general anesthesia. Her abdomen was prepped and draped usual sterile fashion. The skin incision sites were anesthetized 1% local Xylocaine. Using a 15 blade the skin was incised the right lower quadrant and then using a 5 ohmmeter optical trocar under direct visualization the pleural cavity was entered. The abdomen was insufflated with air. After adequate insufflation another fibrillar trocar is placed in the right epigastric position. The adhesions and midline were then lysed using the Harmonic scissors. Next a another 5 mm trochars placed in the left upper quadrant and the left lower quadrant. The camera was brought over to the left side and adhesions were lysed on the left side the abdomen. The entire abdominal wall was freed of adhesions.the trochars were withdrawn. Skin was closed interrupted 3-0 Monocryl suture. Dermabond dressings was applied.
[2020-09-24] MEDS: HYDROmorphone 0.5 MG/0.5 ML SYRINGE IVP ONE ×5 (10:45→14:08)
[2020-09-24] MEDS ORDERED: KETOROLAC 15 MG/ML 1 ML VIAL IVP ONE (14:12)
--- NOTE | 2020-09-24 17:29 | P.CONS ---
History of Present Illness - Reason for Consult Consult date: 09/24/20 - Chief Complaint abdominal pain - History of Present Illness 35-year-old patient of Dr. Edgardo Inman. Chronic stable medical conditions include asthma, fibromyalgia, GERD, obstructive sleep apnea does not use a CPAP, hypothyroidism, obesity, depression. Patient had a perforated diverticulitis with a colostomy in December 2017, then a reversal in February 2018, had a cholecystectomy in August 2018, incisional hernia repair 2019. She is admitted for refractory abdominal pain and lysis of adhesions by general surgery. She was seen in the postoperative period, she is still lethargic, has no complaints currently. Patient states that she was recently diagnosed with diabetes and was started on oral hypoglycemics agents. Review of Systems complete review of system performed, pertinent positives per HPI, otherwise negative. Past Medical History Past Medical History: Asthma, Diabetes Mellitus, Fibromyalgia, GERD/Reflux, Sleep Apnea/CPAP/BIPAP, Thyroid Disorder Additional Past Medical History / Comment(s): Migraines, DDD , IBS, NO CPAP used. HX PERFORATED DIVERTICULITIS, internal abd hematoma, seasonal allergies, History of Any Multi-Drug Resistant Organisms: None Reported Past Surgical History: Bowel Resection, Breast Surgery, Cholecystectomy, Hernia Repair Additional Past Surgical History / Comment(s): Rt Breast biopsy. bowel resection with Colostomy/ later colostomy Reversal Past Anesthesia/Blood Transfusion Reactions: No Reported Reaction Smoking Status: Never smoker - Past Family History Mother History Unknown: Yes Family Medical History: No Reported History Additional Family Medical History / Comment(s): . Brother(s) Family Medical History: Diabetes Mellitus Father Family Medical History: Unable to Obtain Medications and Allergies Home Medications Medication Instructions Recorded Confirmed Type Levothyroxine Sodium [Synthroid] 50 mcg PO DAILY 05/05/14 09/24/20 History traZODone HCL [Desyrel] 100 mg PO HS 04/04/15 09/22/20 History Topiramate [Trokendi Xr] 200 mg PO DAILY 07/19/17 09/24/20 History rOPINIRole HCL [Requip] 0.5 mg PO HS 01/23/19 09/22/20 History Famotidine [Pepcid] 40 mg PO DAILY 07/28/19 09/24/20 History Cetirizine HCl [Zyrtec] 10 mg PO DAILY 08/30/19 09/24/20 History Pregabalin [Lyrica] 150 mg PO BID 08/30/19 09/22/20 History Blisovi Fe 1.5-30 1 tab PO HS 04/21/20 09/22/20 History Meloxicam 15 mg PO DAILY 06/28/20 09/22/20 History HYDROcodone/APAP 7.5-325MG [[place] 1 tab PO BID PRN 08/10/20 09/24/20 History 7.5-325] ARIPiprazole [Abilify] 2 mg PO HS 09/14/20 09/22/20 History Ondansetron Odt [Zofran Odt] 8 mg PO Q8HR PRN 09/14/20 09/24/20 History Venlafaxine HCl [Effexor XR] 225 mg PO HS 09/14/20 09/22/20 History Albuterol Inhaler [Ventolin Hfa 1 puff INHALATION Q4-6H PRN 09/22/20 09/24/20 History Inhaler] Empagliflozin/Metformin HCl 1 each PO QAM 09/22/20 09/24/20 History [Synjardy 12.5-1,000 mg Tablet] Erenumab-Aooe [Aimovig 140 mg SQ QMONTHLY 09/22/20 09/24/20 History Autoinjector] Ergocalciferol [Vitamin D2 (1250 50,000 unit PO GARCIA 09/22/20 09/24/20 History Mcg = 26648 Iu)] Allergies Allergy/AdvReac Type Severity Reaction Status Date / Time codeine Allergy Hallucinati Verified 09/22/20 10:12 ons tramadol Allergy Hallucinati Verified 09/22/20 10:12 ons valacyclovir HCl AdvReac BLURRED Verified 09/22/20 10:12 [From Valtrex] VISION Physical Exam Vitals: Vital Signs Temp Pulse Pulse Resp BP BP BP 09/24/20 16:45 87 16 100/63 09/24/20 16:15 64 16 116/69 09/24/20 15:45 85 16 109/68 09/24/20 15:30 98 16 100/50 09/24/20 15:15 81 16 108/53 09/24/20 15:00 98.1 F 97 16 132/82 09/24/20 14:20 89 16 117/59 09/24/20 14:00 88 16 114/58 09/24/20 13:30 18 100/56 09/24/20 13:00 89 16 117/60 09/24/20 12:30 92 16 114/58 09/24/20 12:00 94 16 113/56 09/24/20 11:30 98.0 F 89 16 112/53 09/24/20 11:15 86 16 118/54 09/24/20 11:00 89 16 121/60 09/24/20 10:45 95 16 125/63 09/24/20 10:30 98.0 F 104 H 16 127/67 09/24/20 07:38 97.9 F 82 16 119/58 Pulse Ox 09/24/20 16:45 94 L 09/24/20 16:15 91 L 09/24/20 15:45 94 L 09/24/20 15:30 92 L 09/24/20 15:15 92 L 09/24/20 15:00 95 09/24/20 14:20 99 09/24/20 14:00 99 09/24/20 13:30 100 09/24/20 13:00 98 09/24/20 12:30 98 09/24/20 12:00 95 09/24/20 11:30 92 L 09/24/20 11:15 93 L 09/24/20 11:00 94 L 09/24/20 10:45 97 09/24/20 10:30 94 L 09/24/20 07:38 96 Intake and Output 09/24/20 09/24/20 09/24/20 06:59 14:59 22:59 Intake Total 1899 Output Total 10 Balance 1889 Intake: IV 1899 Output: Estimated Blood Loss 10 Other: Weight 139.2 kg 139.2 kg Constitutional: No acute distress, conversant, pleasant Eyes:Anicteric sclerae, moist conjunctiva, no lid-lag, PERRLA, ENMT: Oropharynx clear, no erythema, exudates Neck: Supple, FROM, no masses, or JVD, No carotid bruits, No thyromegaly Lungs: Clear to auscultation, Clear to percussion, Normal respiratory effort, no accessory muscle use Cardiovascular: Heart regular in rate and rhythm, No murmurs, gallops, or rubs, No peripheral edema Abdominal: surgical scar present, Soft, Nontender, no guarding, rebound or rigidity, Normoactive bowel sounds, No hepatomegaly, No splenomegaly, No palpable mass Skin: Normal temperature, tone, texture, turgor, no induration, No subcutaneous nodules, No rash, lesions, No ulcers Extremities: No digital cyanosis, No clubbing, Pedal pulses intact and symmetrical, Radial pulses intact and symmetrical, No calf tenderness Psychiatric: Alert and oriented to person, place and time, appropriate affect, intact judgement Neuro: Muscles Strength 5/5 in all 4 extremities, Sensation to light touch grossly present throughout, Cranial nerves II-XII grossly intact, no focal sensory deficits Results Labs: Abnormal Lab Results - Last 24 Hours (Table) 09/24/20 Range/Units 07:47 POC Glucose (mg/dL) 123 H (75-99) mg/dL Assessment and Plan Plan: Postoperative day #0 status post lysis of adhesions for refractory abdominal pain Management per general surgery including pain control and DVT prophylaxis. Diabetes type 2 Hold oral hypoglycemics SSI Chronic conditions Fibromyalgia Depression Asthma GERD/Reflux, Sleep Apnea Hypothyroidism All stable Resume meds Morbid obesity Structured outpatient weight loss
[2020-09-24] MEDS ORDERED: HYDROcodone/APAP 7.5-325MG 1 EACH TAB PO PRN (17:32)
[2020-09-24] MEDS ORDERED: ONDANSETRON ODT 8 MG TAB.RAPDIS PO PRN (17:32)
[2020-09-24] MEDS ORDERED: ALBUTEROL NEBULIZED 2.5 MG/3 ML INHALATION PRN (17:32)
[2020-09-24] MEDS: HYDROmorphone 0.5 MG/0.5 ML SYRINGE IVP PRN (20:05)
[2020-09-24 20:15] LABS: Glucose,Whole Blood 140 mg/dL (75-99)
[2020-09-24] MEDS: INSULIN ASPART (NovoLOG) 100 UNIT/ML VIAL SQ SCH (20:29)
[2020-09-24] MEDS: ARIPiprazole 2 MG TAB PO SCH (20:30)
[2020-09-24] MEDS: PREGABALIN 75 MG CAP PO SCH (20:31)
[2020-09-24] MEDS: VENLAFAXINE HCL ER 75 MG CAP PO SCH (20:31)
[2020-09-24] MEDS: traZODone HCL 100 MG TAB PO SCH (20:31)
[2020-09-24] MEDS: TOPIRAMATE 100 MG TAB PO SCH (20:31)
[2020-09-24] MEDS: HYDROcodone/APAP 5-325MG 1 EACH TAB PO PRN (21:46)
[2020-09-25] MEDS: HYDROmorphone 0.5 MG/0.5 ML SYRINGE IVP PRN ×4 (01:42→19:19)
[2020-09-25 01:52] LABS: Glucose,Whole Blood 104 mg/dL (75-99)
[2020-09-25] MEDS: LEVOTHYROXINE 50 MCG TAB PO SCH (06:20)
[2020-09-25 06:34] LABS: Glucose,Whole Blood 93 mg/dL (75-99)
[2020-09-25] MEDS: INSULIN ASPART (NovoLOG) 100 UNIT/ML VIAL SQ SCH ×4 (06:35→20:01)
[2020-09-25] MEDS: ENOXAPARIN 40 MG/0.4 ML SYRINGE SQ SCH (08:15)
[2020-09-25] MEDS: PREGABALIN 75 MG CAP PO SCH ×2 (08:16→20:26)
[2020-09-25] MEDS: FAMOTIDINE 20 MG TAB PO SCH (08:16)
[2020-09-25] MEDS: HYDROcodone/APAP 5-325MG 1 EACH TAB PO PRN ×3 (08:16→20:31)
[2020-09-25] MEDS: TOPIRAMATE 100 MG TAB PO SCH ×2 (08:17→20:26)
--- NOTE | 2020-09-25 09:06 | P.PN ---
Subjective Progress Note Date: 09/25/20 Principal diagnosis: Lysis of adhesions Patient doing fairly well today. Still having some pain after the laparoscopic lysis of adhesions yesterday. Tolerating liquids. Objective - Vital Signs Vital signs: Vital Signs Temp 97.7 F 09/25/20 08:00 Pulse 71 09/25/20 08:00 Resp 18 09/25/20 08:00 BP 94/61 09/25/20 08:00 Pulse Ox 97 09/25/20 08:00 Intake & Output 09/24/20 09/25/20 09/25/20 18:59 06:59 18:59 Intake Total 1900 300 Output Total 360 500 Balance 1540 -200 Weight 139.2 kg Intake: IV 1900 Oral 300 Output: Urine 350 500 Estimated Blood Loss 10 Other: Voiding Method Toilet # Voids 1 - Exam Abdomen: Soft, nondistended, incisions clean and dry, mild tenderness - Labs Labs: Abnormal Lab Results - Last 24 Hours (Table) 09/24/20 09/25/20 Range/Units 20:13 01:48 POC Glucose (mg/dL) 140 H 104 H (75-99) mg/dL Assessment and Plan (1) Abdominal pain Narrative/Plan: Increase diet. Ambulate. Possible discharge today. Current Visit: No Status: Chronic Code(s): R10.9 - UNSPECIFIED ABDOMINAL PAIN SNOMED Code(s): 56333452
[2020-09-25 12:18] LABS: Glucose,Whole Blood 123 mg/dL (75-99)
--- NOTE | 2020-09-25 13:41 | P.PN ---
Subjective Progress Note Date: 09/25/20 Principal diagnosis: Abdominal pain Doing well, abdominal pain is better. Eating, tolerating diet and having BMs. Ambulating without difficulties. No fevers. Objective - Vital Signs Vital signs: Vital Signs Temp 97.8 F 09/25/20 13:37 Pulse 72 09/25/20 13:37 Resp 18 09/25/20 13:37 BP 107/63 09/25/20 13:37 Pulse Ox 97 09/25/20 13:37 Intake & Output 09/24/20 09/25/20 09/25/20 18:59 06:59 18:59 Intake Total 1900 300 Output Total 360 500 Balance 1540 -200 Weight 139.2 kg Intake: IV 1900 Oral 300 Output: Urine 350 500 Estimated Blood Loss 10 Other: Voiding Method Toilet # Voids 1 - Exam Constitutional: No acute distress, conversant, pleasant Eyes:Anicteric sclerae, moist conjunctiva, no lid-lag, PERRLA, ENMT: Oropharynx clear, no erythema, exudates Neck: Supple, FROM, no masses, or JVD, No carotid bruits, No thyromegaly Lungs: Clear to auscultation, Clear to percussion, Normal respiratory effort, no accessory muscle use Cardiovascular: Heart regular in rate and rhythm, No murmurs, gallops, or rubs, No peripheral edema Abdominal: surgical scar present, Soft, Nontender, no guarding, rebound or rigidity, Normoactive bowel sounds, No hepatomegaly, No splenomegaly, No palpable mass Skin: Normal temperature, tone, texture, turgor, no induration, No subcutaneous nodules, No rash, lesions, No ulcers Extremities: No digital cyanosis, No clubbing, Pedal pulses intact and symmetrical, Radial pulses intact and symmetrical, No calf tenderness Psychiatric: Alert and oriented to person, place and time, appropriate affect, intact judgement Neuro: Muscles Strength 5/5 in all 4 extremities, Sensation to light touch grossly present throughout, Cranial nerves II-XII grossly intact, no focal sensory deficits - Labs Labs: Abnormal Lab Results - Last 24 Hours (Table) 09/24/20 09/25/20 09/25/20 Range/Units 20:13 01:48 12:17 POC Glucose (mg/dL) 140 H 104 H 123 H (75-99) mg/dL Assessment and Plan Plan: Postoperative day #0 status post lysis of adhesions for refractory abdominal pain Management per general surgery including pain control and DVT prophylaxis. Diabetes type 2 Hold oral hypoglycemics SSI Chronic conditions Fibromyalgia Depression Asthma GERD/Reflux, Sleep Apnea Hypothyroidism All stable Resume meds Morbid obesity Structured outpatient weight loss
[2020-09-25 17:18] LABS: Glucose,Whole Blood 100 mg/dL (75-99)
[2020-09-25 19:33] LABS: Glucose,Whole Blood 120 mg/dL (75-99)
[2020-09-25] MEDS: ARIPiprazole 2 MG TAB PO SCH (20:26)
[2020-09-25] MEDS: traZODone HCL 100 MG TAB PO SCH (20:26)
[2020-09-25] MEDS: VENLAFAXINE HCL ER 75 MG CAP PO SCH (20:26)
[2020-09-25 22:17] LABS: Basophils % (A) 1 %; Eosinophils # (A) 0.2 k/uL (0-0.7); Eosinophils % (A) 3 %; HCT 34.8 % (34.0-46.0); HGB 11.2 gm/dL (11.4-16.0); Hypochromasia Moderate; Lymphocytes # (A) 2.8 k/uL (1.0-4.8); Lymphocytes % (A) 36 %; MCH 26.2 pg (25.0-35.0); MCHC 32.2 g/dL (31.0-37.0); MCV 81.5 fL (80.0-100.0); Mean Platelet Volume 6.6; Monocytes # (A) 0.5 k/uL (0-1.0); Monocytes % (A) 6 %; Neutrophils # (A) 4.1 k/uL (1.3-7.7); Neutrophils % (A) 53 %; Platelet Count 317 k/uL (150-450); RBC 4.26 m/uL (3.80-5.40); RDW 15.1 % (11.5-15.5); WBC 7.6 k/uL (3.8-10.6)
[2020-09-26] MEDS: HYDROcodone/APAP 5-325MG 1 EACH TAB PO PRN (03:36)
[2020-09-26] MEDS: LEVOTHYROXINE 50 MCG TAB PO SCH (06:13)
[2020-09-26 06:25] LABS: Glucose,Whole Blood 130 mg/dL (75-99)
[2020-09-26] MEDS: INSULIN ASPART (NovoLOG) 100 UNIT/ML VIAL SQ SCH (07:01)
[2020-09-26] MEDS: LACTATED RINGERS 1,000 ML IV SCH (07:01)
[2020-09-26] MEDS: TOPIRAMATE 100 MG TAB PO SCH (08:06)
[2020-09-26] MEDS: ENOXAPARIN 40 MG/0.4 ML SYRINGE SQ SCH (08:06)
[2020-09-26] MEDS: FAMOTIDINE 20 MG TAB PO SCH (08:07)
[2020-09-26] MEDS: PREGABALIN 75 MG CAP PO SCH (08:07)
[2020-09-26 08:44] VITALS: BP 131/83; PULSE 79; RESP 16; TEMP 98.2
--- NOTE | 2020-09-26 11:41 | P.DS ---
Providers Date of admission: 09/25/20 07:19 Expected date of discharge: 09/26/20 Attending physician: Brayan Meadows Consults: 09/24/20 10:44 Consult Physician Routine Consulting Provider: Padmini Cruz Consult Reason/Comments: med manage Do you want consulting provider notified?: Yes Primary care physician: Edgardo Inman - Discharge Diagnosis(es) (1) Abdominal pain Patient minute for laparoscopic lysis of adhesions. Postoperative the patient was kept for abdominal pain control. Doing better today. Tolerating diet. Abdominal examination reveals mild tenderness and incisions clean and dry. Patient would like to go home. We'll discharge. Follow-up with Dr. Meadows 1 week. Current Visit: No Status: Chronic Plan - Discharge Summary Discharge Rx Participant: No New Discharge Prescriptions: No Action Levothyroxine Sodium [Synthroid] 50 mcg PO DAILY traZODone HCL [Desyrel] 100 mg PO HS Topiramate [Trokendi Xr] 200 mg PO DAILY rOPINIRole HCL [Requip] 0.5 mg PO HS Famotidine [Pepcid] 40 mg PO DAILY Cetirizine HCl [Zyrtec] 10 mg PO DAILY Pregabalin [Lyrica] 150 mg PO BID [place] Fe 1.5-30 1 tab PO HS Meloxicam 15 mg PO DAILY HYDROcodone/APAP 7.5-325MG [[place] 7.5-325] 1 tab PO BID PRN PRN Reason: Pain ARIPiprazole [Abilify] 2 mg PO HS Venlafaxine HCl [Effexor XR] 225 mg PO HS Erenumab-Aooe [Aimovig Autoinjector] 140 mg SQ QMONTHLY Ergocalciferol [Vitamin D2 (1250 Mcg = 64219 Iu)] 50,000 unit PO GARCIA Albuterol Inhaler [Ventolin Hfa Inhaler] 1 puff INHALATION Q4-6H PRN PRN Reason: sob Ondansetron Odt [Zofran Odt] 8 mg PO Q8HR PRN PRN Reason: Nausea Empagliflozin/Metformin HCl [Synjardy 12.5-1,000 mg Tablet] 1 each PO QAM Discharge Medication List Levothyroxine Sodium [Synthroid] 50 mcg PO DAILY 05/05/14 [History] traZODone HCL [Desyrel] 100 mg PO HS 04/04/15 [History] Topiramate [Trokendi Xr] 200 mg PO DAILY 07/19/17 [History] rOPINIRole HCL [Requip] 0.5 mg PO HS 01/23/19 [History] Famotidine [Pepcid] 40 mg PO DAILY 07/28/19 [History] Cetirizine HCl [Zyrtec] 10 mg PO DAILY 08/30/19 [History] Pregabalin [Lyrica] 150 mg PO BID 08/30/19 [History] [place] Fe 1.5-30 1 tab PO HS 04/21/20 [History] Meloxicam 15 mg PO DAILY 06/28/20 [History] HYDROcodone/APAP 7.5-325MG [[place] 7.5-325] 1 tab PO BID PRN 08/10/20 [History] ARIPiprazole [Abilify] 2 mg PO HS 09/14/20 [History] Ondansetron Odt [Zofran Odt] 8 mg PO Q8HR PRN 09/14/20 [History] Venlafaxine HCl [Effexor XR] 225 mg PO HS 09/14/20 [History] Albuterol Inhaler [Ventolin Hfa Inhaler] 1 puff INHALATION Q4-6H PRN 09/22/20 [History] Empagliflozin/Metformin HCl [Synjardy 12.5-1,000 mg Tablet] 1 each PO QAM 09/22/20 [History] Erenumab-Aooe [Aimovig Autoinjector] 140 mg SQ QMONTHLY 09/22/20 [History] Ergocalciferol [Vitamin D2 (1250 Mcg = 75657 Iu)] 50,000 unit PO GARCIA 09/22/20 [History] Follow up Appointment(s)/Referral(s): Brayan Meadows MD [STAFF PHYSICIAN] - 10/07/20 2:10 pm
[2020-09-26 12:40] LABS: Glucose,Whole Blood 91 mg/dL (75-99)
== END 2020-09-26 14:00 | disposition home or self-care (01) ==
LOC: OR 06:57 → 6PED 14:18 → OR 09-25 07:19 → 6PED 09-25 07:19
PROVIDERS: ADMIT Surgery; ATTEND Surgery
DX: K66.0 Peritoneal adhesions (postprocedural) (postinfection) (principal); E11.9 Type 2 diabetes mellitus without complications; J45.909 Unspecified asthma, uncomplicated; G47.33 Obstructive sleep apnea (adult) (pediatric); K21.9 Gastro-esophageal reflux disease without esophagitis; M79.7 Fibromyalgia; E03.9 Hypothyroidism, unspecified; G43.909 Migraine, unspecified, not intractable, without status migrainosus; K58.9 Irritable bowel syndrome, unspecified; F32.9 Major depressive disorder, single episode, unspecified; Z99.89 Dependence on other enabling machines and devices; E66.01 Morbid (severe) obesity due to excess calories; Z68.42 Body mass index [BMI] 45.0-49.9, adult; Z79.890 Hormone replacement therapy; Z79.1 Long term (current) use of non-steroidal anti-inflammatories (NSAID); Z79.84 Long term (current) use of oral hypoglycemic drugs; Z79.899 Other long term (current) drug therapy; Z88.3 Allergy status to other anti-infective agents; Z88.5 Allergy status to narcotic agent; Z90.49 Acquired absence of other specified parts of digestive tract; Z98.890 Other specified postprocedural states; Z83.3 Family history of diabetes mellitus
CPT/HCPCS: 44180; 81025; 85025; G0378 ×2; J2250; J1100; J2710; J2405; J0690; J2001; J1650 ×2; J3010; J1885; J0330; J2704; J1170 ×2; J1644

== ENCOUNTER 2020-10-07 06:49 | Day surgery (SDC) | payer OTHER ==
[2020-10-05 10:35] VITALS: BMI 48.2
[~2020-10-07 06:49] MED LIST changes: -ACETAMINOPHEN TAB 500 MG TAB PO PRN; -DEXAMETHASONE SOD PHOSPHATE 4 MG/ML 1 ML VIAL IV ONE; -HEPARIN SODIUM,PORCINE/PF 5,000 UNIT/0.5 ML SYRINGE SQ PRN; +LACTATED RINGERS 1,000 ML IV SCH; -LIDOCAINE 1% (10MG/ML) FOR IV START INTRADERMA PRN; -MIDAZOLAM 2 MG/2 ML VIAL IV PRN; -ONDANSETRON 4 MG/2 ML VIAL IVP ONE; -Pre Op ABX Message 1 EACH MISC MISCELLANE ONE
[2020-10-07 07:17] VITALS: TEMP 97.4
[2020-10-07] MEDS ORDERED: LACTATED RINGERS 1,000 ML IV ONE (07:17)
[2020-10-07 07:25] LABS: Glucose,Whole Blood 121 mg/dL (75-99)
[2020-10-07] MEDS ORDERED: LIDOCAINE 1% INJ 10MG/ML (20 ML MDV) ONE (07:58)
[2020-10-07] MEDS ORDERED: PROPOFOL 10 MG/ML 20 ML VIAL IV ONE (07:58)
--- NOTE | 2020-10-07 08:15 | P.GSHP ---
History of Present Illness H&P Date: 10/07/20 Chief Complaint: GERD, morbid obesity This a 35-year-old female who is undergoing workup for sleeve gastrectomy. Patient has completed GERD. She presents today for EGD. Her BMI is 48. Past Medical History Past Medical History: Asthma, Diabetes Mellitus, Fibromyalgia, GERD/Reflux, Sleep Apnea/CPAP/BIPAP, Thyroid Disorder Additional Past Medical History / Comment(s): Migraines, DDD , IBS, NO CPAP used. HX PERFORATED DIVERTICULITIS, internal abd hematoma, seasonal allergies, History of Any Multi-Drug Resistant Organisms: None Reported Past Surgical History: Bowel Resection, Breast Surgery, Cholecystectomy, Hernia Repair Additional Past Surgical History / Comment(s): Rt Breast biopsy. bowel resection with Colostomy/ later colostomy Reversal, abdominal surgery to remove scar tissue Past Anesthesia/Blood Transfusion Reactions: No Reported Reaction Smoking Status: Never smoker - Past Family History Mother History Unknown: Yes Family Medical History: No Reported History Additional Family Medical History / Comment(s): . Brother(s) Family Medical History: Diabetes Mellitus Father Family Medical History: Unable to Obtain Medications and Allergies Home Medications Medication Instructions Recorded Confirmed Type Levothyroxine Sodium [Synthroid] 50 mcg PO DAILY 05/05/14 10/05/20 History traZODone HCL [Desyrel] 100 mg PO HS 04/04/15 10/05/20 History Topiramate [Trokendi Xr] 200 mg PO DAILY 07/19/17 10/05/20 History rOPINIRole HCL [Requip] 0.5 mg PO HS 01/23/19 10/05/20 History Famotidine [Pepcid] 40 mg PO DAILY 07/28/19 10/05/20 History Cetirizine HCl [Zyrtec] 10 mg PO DAILY 08/30/19 10/05/20 History Pregabalin [Lyrica] 150 mg PO BID 08/30/19 10/05/20 History [place] Fe 1.5-30 1 tab PO HS 04/21/20 10/05/20 History Meloxicam 15 mg PO DAILY 06/28/20 10/05/20 History HYDROcodone/APAP 7.5-325MG [[place] 1 tab PO BID PRN 08/10/20 10/05/20 History 7.5-325] ARIPiprazole [Abilify] 2 mg PO HS 09/14/20 10/05/20 History Ondansetron Odt [Zofran Odt] 8 mg PO Q8HR PRN 09/14/20 10/05/20 History Venlafaxine HCl [Effexor XR] 225 mg PO HS 09/14/20 10/05/20 History Albuterol Inhaler [Ventolin Hfa 1 puff INHALATION Q4-6H PRN 09/22/20 10/05/20 History Inhaler] Empagliflozin/Metformin HCl 1 each PO QAM 09/22/20 10/05/20 History [Synjardy 12.5-1,000 mg Tablet] Erenumab-Aooe [Aimovig 140 mg SQ QMONTHLY 09/22/20 10/05/20 History Autoinjector] Ergocalciferol [Vitamin D2 (1250 50,000 unit PO GARCIA 09/22/20 10/05/20 History Mcg = 93013 Iu)] Allergies Allergy/AdvReac Type Severity Reaction Status Date / Time codeine Allergy Hallucinati Verified 10/05/20 10:26 ons tramadol Allergy Hallucinati Verified 10/05/20 10:26 ons valacyclovir HCl AdvReac BLURRED Verified 10/05/20 10:26 [From Valtrex] VISION Surgical - Exam Vital Signs Temp Pulse Resp BP Pulse Ox 97.4 F L 87 18 142/91 98 10/07/20 07:15 10/07/20 07:15 10/07/20 07:15 10/07/20 07:15 10/07/20 07:15 - General well developed, well nourished, no distress - Eyes PERRL - ENT normal pinna - Neck no masses - Respiratory normal expansion - Cardiovascular Rhythm: regular - Abdomen Abdomen: soft, non tender Results - Labs Abnormal Lab Results - Last 24 Hours (Table) 10/07/20 Range/Units 07:24 POC Glucose (mg/dL) 121 H (75-99) mg/dL Assessment and Plan Assessment: Morbid obesity GERD BMI 48. We'll perform EGD.
--- NOTE | 2020-10-07 08:16 | P.OP ---
Date of Procedure: 10/07/20 Preoperative Diagnosis: GERD Morbid obesity Postoperative Diagnosis: Morbid obesity Antral gastritis Procedure(s) Performed: EGD Anesthesia: MAC Surgeon: Brayan Meadows Pathology: none sent Condition: stable Disposition: PACU Description of Procedure: The patient's placed on the endoscopy table lateral position. She received IV sedation. The gastroscope placed oropharynx past esophagus and stomach. Scope was then placed through the pylorus. The first and second portion of duodenum appeared normal. The scope was then brought back the antrum and this was mildly inflamed. A biopsies performed. Scope was unretroflexed and remainder of the stomach appeared normal. There was no significant hiatal hernia. The distal esophagus spell. The proximal esophagus appeared normal. Scope was withdrawn for patient.
[2020-10-07 08:18] VITALS: RESP 16
[2020-10-07 08:31] VITALS: PULSE 86
[2020-10-07 08:42] VITALS: BP 106/74
== END 2020-10-07 08:56 | disposition home or self-care (01) ==
LOC: ORWHC2ENDO 06:49
PROVIDERS: ATTEND Surgery
DX: K21.9 Gastro-esophageal reflux disease without esophagitis (principal); K29.50 Unspecified chronic gastritis without bleeding; E66.01 Morbid (severe) obesity due to excess calories; J44.9 Chronic obstructive pulmonary disease, unspecified; E11.9 Type 2 diabetes mellitus without complications; M79.7 Fibromyalgia; G47.33 Obstructive sleep apnea (adult) (pediatric); K58.9 Irritable bowel syndrome, unspecified; G43.909 Migraine, unspecified, not intractable, without status migrainosus; Z98.890 Other specified postprocedural states; E07.9 Disorder of thyroid, unspecified; Z79.84 Long term (current) use of oral hypoglycemic drugs; Z79.899 Other long term (current) drug therapy; Z88.5 Allergy status to narcotic agent; Z88.8 Allergy status to other drugs, medicaments and biological substances
CPT/HCPCS: 88305; 43239; J2001; J2704

== ENCOUNTER 2020-10-27 20:14 | Emergency (ER) | payer OTHER ==
[2020-10-27 20:21] VITALS: BP 145/92; PULSE 91; RESP 20; TEMP 98.4
[2020-10-27] MEDS ORDERED: KETOROLAC 15 MG/ML 1 ML VIAL IM STA (20:41)
--- NOTE | 2020-10-27 20:46 | ED ---
Lower Extremity Injury HPI - General Chief Complaint: Extremity Injury, Lower Stated Complaint: L Knee Pain Time Seen by Provider: 10/27/20 20:22 Source: patient Mode of arrival: wheelchair Limitations: no limitations - History of Present Illness Initial Comments: 35-year-old female presents to the emergency department with a chief complaint of left knee pain. Patient reports about one hour ago she was bowling when she had a pivoting injury of the left knee. States she felt a pop and it went down to the ground. Now she reports limited range of motion with flexion but has full extension. She reports a tingling sensation distal to injury but denies any numbness. She denies taking medication to alleviate the symptoms. Reports pain is exacerbated with weightbearing and flexion. - Related Data Home Medications Medication Instructions Recorded Confirmed Levothyroxine Sodium [Synthroid] 50 mcg PO DAILY 05/05/14 10/05/20 traZODone HCL [Desyrel] 100 mg PO HS 04/04/15 10/05/20 Topiramate [Trokendi Xr] 200 mg PO DAILY 07/19/17 10/05/20 rOPINIRole HCL [Requip] 0.5 mg PO HS 01/23/19 10/05/20 Famotidine [Pepcid] 40 mg PO DAILY 07/28/19 10/05/20 Cetirizine HCl [Zyrtec] 10 mg PO DAILY 08/30/19 10/05/20 Pregabalin [Lyrica] 150 mg PO BID 08/30/19 10/05/20 Blisovi Fe 1.5-30 1 tab PO HS 04/21/20 10/05/20 Meloxicam 15 mg PO DAILY 06/28/20 10/05/20 HYDROcodone/APAP 7.5-325MG [[place] 1 tab PO BID PRN 08/10/20 10/05/20 7.5-325] ARIPiprazole [Abilify] 2 mg PO HS 09/14/20 10/05/20 Ondansetron Odt [Zofran Odt] 8 mg PO Q8HR PRN 09/14/20 10/05/20 Venlafaxine HCl [Effexor XR] 225 mg PO HS 09/14/20 10/05/20 Albuterol Inhaler [Ventolin Hfa 1 puff INHALATION Q4-6H PRN 09/22/20 10/05/20 Inhaler] Empagliflozin/Metformin HCl 1 each PO QAM 09/22/20 10/05/20 [Synjardy 12.5-1,000 mg Tablet] Erenumab-Aooe [Aimovig 140 mg SQ QMONTHLY 09/22/20 10/05/20 Autoinjector] Ergocalciferol [Vitamin D2 (1250 50,000 unit PO GARCIA 09/22/20 10/05/20 Mcg = 21578 Iu)] Allergies Allergy/AdvReac Type Severity Reaction Status Date / Time codeine Allergy Hallucinati Verified 10/27/20 20:21 ons tramadol Allergy Hallucinati Verified 10/27/20 20:21 ons valacyclovir HCl AdvReac BLURRED Verified 10/27/20 20:21 [From Valtrex] VISION Review of Systems ROS Statement: Those systems with pertinent positive or pertinent negative responses have been documented in the HPI. ROS Other: All systems not noted in ROS Statement are negative. Past Medical History Past Medical History: Asthma, Diabetes Mellitus, Fibromyalgia, GERD/Reflux, Sleep Apnea/CPAP/BIPAP, Thyroid Disorder Additional Past Medical History / Comment(s): Migraines, DDD , IBS, NO CPAP used. HX PERFORATED DIVERTICULITIS, internal abd hematoma, seasonal allergies, History of Any Multi-Drug Resistant Organisms: None Reported Past Surgical History: Bowel Resection, Breast Surgery, Cholecystectomy, Hernia Repair Additional Past Surgical History / Comment(s): Rt Breast biopsy. bowel resection with Colostomy/ later colostomy Reversal, abdominal surgery to remove scar tissue Past Anesthesia/Blood Transfusion Reactions: No Reported Reaction Past Psychological History: Anxiety, Bipolar, Depression Smoking Status: Never smoker Past Alcohol Use History: None Reported Past Drug Use History: None Reported - Past Family History Mother History Unknown: Yes Family Medical History: No Reported History Additional Family Medical History / Comment(s): . Brother(s) Family Medical History: Diabetes Mellitus Father Family Medical History: Unable to Obtain General Exam Limitations: no limitations General appearance: alert, in no apparent distress, obese Head exam: Present: atraumatic, normocephalic, normal inspection Eye exam: Present: normal appearance, PERRL, EOMI Pupils: Present: normal accommodation ENT exam: Present: normal exam, normal oropharynx, mucous membranes moist Neck exam: Present: normal inspection, full ROM. Absent: tenderness Respiratory exam: Present: normal lung sounds bilaterally. Absent: respiratory distress, wheezes, rales, rhonchi, stridor Cardiovascular Exam: Present: regular rate, normal rhythm, normal heart sounds. Absent: systolic murmur Extremities exam: Present: normal inspection, tenderness (Infrapatellar medial tenderness), normal capillary refill, other (Sensation intact in the left lower stomach. Palpable DP and PT bilaterally.). Absent: full ROM (Limited range of motion with flexion), pedal edema, joint swelling, calf tenderness Back exam: Present: normal inspection, full ROM. Absent: tenderness, CVA tenderness (R), CVA tenderness (L) Neurological exam: Present: alert, oriented X3 Psychiatric exam: Present: normal affect, normal mood Skin exam: Present: warm, dry, intact, normal color Course Vital Signs 10/27/20 20:17 Temperature 98.4 F Pulse Rate 91 Respiratory 20 Rate Blood Pressure 145/92 O2 Sat by Pulse 99 Oximetry Medical Decision Making - Medical Decision Making 35-year-old male presents to the emergency department with a chief complaint of left knee pain. X-rays unremarkable. Physical examination reveals no acute findings. Patient is otherwise neurovascularly intact. I suspect patient's of her ligamentous injury. Advised to follow with an customer retention specialist. Knee mobilizer applied. Advised to return to emergency department system worsen. Case discussed with physician. Disposition Clinical Impression: Left knee pain, Left knee injury, Left knee sprain Disposition: HOME SELF-CARE Condition: Stable Instructions (If sedation given, give patient instructions): Knee Sprain (DC) Additional Instructions: Follow-up with customer retention specialist. Alternate between Tylenol and Motrin. Return to emergency department if symptoms worsen. Is patient prescribed a controlled substance at d/c from ED?: No Referrals: Edgardo Inman MD [Primary Care Provider] - 1-2 days Angeles Mccarthy DO [Doctor of Osteopathic Medicine] - 1-2 days Time of Disposition: 21:24
--- NOTE | 2020-10-27 21:12 | XR ---
Left knee HISTORY: Trauma and pain 3 views of the left knee correlated prior exam 04/02/2015 Bone mineralization, joint spaces and alignment are stable. No fracture or dislocation. There may be minimal suprapatellar joint effusion. IMPRESSION: No acute bone abnormality.
[2020-10-27] MEDS ORDERED: MORPHINE SULFATE 4 MG/ML SYRINGE IM STA (22:05)
== END 2020-10-27 22:27 | disposition home or self-care (01) ==
LOC: EC 20:14
DX: S83.92XA Sprain of unspecified site of left knee, initial encounter (principal); E11.9 Type 2 diabetes mellitus without complications; J45.909 Unspecified asthma, uncomplicated; K21.9 Gastro-esophageal reflux disease without esophagitis; E07.9 Disorder of thyroid, unspecified; M79.7 Fibromyalgia; Z79.84 Long term (current) use of oral hypoglycemic drugs; Z88.5 Allergy status to narcotic agent; Z79.890 Hormone replacement therapy; Z88.8 Allergy status to other drugs, medicaments and biological substances; Z79.899 Other long term (current) drug therapy; X50.9XXA Other and unspecified overexertion or strenuous movements or postures, initial encounter; Y93.54 Activity, bowling
CPT/HCPCS: 99283; 96372; 73562; J2270; J1885

== ENCOUNTER 2020-11-02 03:18 | Emergency (ER) | payer OTHER ==
[2020-11-02 03:23] VITALS: RESP 20; TEMP 97.6
[2020-11-02] MEDS ORDERED: SODIUM CHLORIDE 0.9% 500 ML 500 ML IV STA (04:01)
[2020-11-02] MEDS ORDERED: ONDANSETRON 4 MG/2 ML VIAL IVP STA (04:01)
[2020-11-02] MEDS ORDERED: MORPHINE SULFATE 4 MG/ML SYRINGE IV STA (04:01)
[2020-11-02 04:13] LABS: Albumin 4.2 g/dL (3.5-5.0); C Reactive Protein 2.2 mg/dL (<1.0); Calcium 9.3 mg/dL (8.4-10.2); Potassium 4.2 mmol/L (3.5-5.1); Total Bilirubin 0.3 mg/dL (0.2-1.3); Total Protein 7.2 g/dL (6.3-8.2)
[2020-11-02 04:37] LABS: Basophils # (A) 0.1 k/uL (0-0.2); Basophils % (A) 1 %; Eosinophils # (A) 0.3 k/uL (0-0.7); Eosinophils % (A) 2 %; HCT 39.4 % (34.0-46.0); HGB 12.3 gm/dL (11.4-16.0); Hypochromasia Moderate; Lymphocytes # (A) 3.4 k/uL (1.0-4.8); Lymphocytes % (A) 27 %; MCH 24.8 pg (25.0-35.0); MCHC 31.2 g/dL (31.0-37.0); MCV 79.6 fL (80.0-100.0); Mean Platelet Volume 7.4; Monocytes # (A) 0.6 k/uL (0-1.0); Monocytes % (A) 5 %; Neutrophils # (A) 8.1 k/uL (1.3-7.7); Neutrophils % (A) 64 %; Platelet Count 422 k/uL (150-450); RBC 4.95 m/uL (3.80-5.40); RDW 15.2 % (11.5-15.5); WBC 12.7 k/uL (3.8-10.6)
[2020-11-02 05:03] LABS: Appearance,Urine Cloudy (Clear); Bacteria,Urine Moderate /hpf; Bilirubin,Urine Negative (Negative); Blood,Urine Negative (Negative); Color,Urine Yellow; Glucose,Urine (UA) 4+ (Negative); Hyaline Casts,Urine 1 /lpf (0-2); Ketones,Urine Negative (Negative); Leukocyte Esterase,Urine Small (Negative); Mucus,Urine Occasional /hpf; Nitrite,Urine Negative (Negative); Protein,Urine Trace (Negative); RBC,Urine 2 /hpf (0-5); Specific Gravity,Urine 1.033 (1.001-1.035); Squamous Epithelial Cell,Urine 2 /hpf (0-4); Urobilinogen,Urine <2.0 mg/dL (<2.0); WBC,Urine 22 /hpf (0-5)
[2020-11-02 05:41] VITALS: BP 102/79; PULSE 81
--- NOTE | 2020-11-02 06:18 | CT ---
EXAMINATION TYPE: CT abdomen pelvis w con DATE OF EXAM: 11/02/2020 COMPARISON: 09/14/2020 HISTORY: RLQ abdominal pain. prior on PACS CT DLP: 2532.7 mGycm Automated exposure control for dose reduction was used. CONTRAST: Performed with IV Contrast, patient injected with 100ml mL of Isovue 300. Images obtained from the diaphragm to the floor the pelvis with IV contrast. Lung bases are clear. There is no pleural effusion. Heart size is normal. There is no pericardial eff usion. Liver spleen stomach pancreas appear intact. The bile ducts are not dilated. There are clips from cho lecystectomy. There is no adrenal mass. Kidneys show satisfactory contrast opacification. There is no hydronephrosis. There is some fat stranding and increased density over the anterior abdominal wall t hat measures up to 3 cm in thickness. Unchanged. The ureters are not dilated. There is no retroperitoneal adenopathy. Appendix is posterior and appear s normal. The bladder distends smoothly. There is no inguinal hernia. There is no free fluid in the p guillermo. The lumbar vertebra have normal alignment. There is no compression fracture. The bony pelvis i s intact. There is no evidence of hip dysplasia. Uterus is anteverted. I see no pelvic mass. Delayed images show normal renal excretion. IMPRESSION: Thickening over the anterior abdominal wall consistent with previous surgery that is not significantl y different than old exam. This probably mostly scar tissue. The density is soft tissue and this is n ot a seroma or an abscess. This could be partly chronic hematoma. No acute abnormality within the abdomen pelvis. Normal appendix..
--- NOTE | 2020-11-02 06:37 | ED ---
Abdominal Pain HPI - General Chief Complaint: Abdominal Pain Stated Complaint: Lower Abd Pain Time Seen by Provider: 11/02/20 03:27 Source: patient, family Mode of arrival: ambulatory Limitations: no limitations - Related Data Home Medications Medication Instructions Recorded Confirmed Levothyroxine Sodium [Synthroid] 50 mcg PO DAILY 05/05/14 10/05/20 traZODone HCL [Desyrel] 100 mg PO HS 04/04/15 10/05/20 Topiramate [Trokendi Xr] 200 mg PO DAILY 07/19/17 10/05/20 rOPINIRole HCL [Requip] 0.5 mg PO HS 01/23/19 10/05/20 Famotidine [Pepcid] 40 mg PO DAILY 07/28/19 10/05/20 Cetirizine HCl [Zyrtec] 10 mg PO DAILY 08/30/19 10/05/20 Pregabalin [Lyrica] 150 mg PO BID 08/30/19 10/05/20 [place] Fe 1.5-30 1 tab PO HS 04/21/20 10/05/20 Meloxicam 15 mg PO DAILY 06/28/20 10/05/20 HYDROcodone/APAP 7.5-325MG [[place] 1 tab PO BID PRN 08/10/20 10/05/20 7.5-325] ARIPiprazole [Abilify] 2 mg PO HS 09/14/20 10/05/20 Ondansetron Odt [Zofran Odt] 8 mg PO Q8HR PRN 09/14/20 10/05/20 Venlafaxine HCl [Effexor XR] 225 mg PO HS 09/14/20 10/05/20 Albuterol Inhaler [Ventolin Hfa 1 puff INHALATION Q4-6H PRN 09/22/20 10/05/20 Inhaler] Empagliflozin/Metformin HCl 1 each PO QAM 09/22/20 10/05/20 [Synjardy 12.5-1,000 mg Tablet] Erenumab-Aooe [Aimovig 140 mg SQ QMONTHLY 09/22/20 10/05/20 Autoinjector] Ergocalciferol [Vitamin D2 (1250 50,000 unit PO GARCIA 09/22/20 10/05/20 Mcg = 96626 Iu)] Previous Rx's Medication Instructions Recorded Dicyclomine [Bentyl] 20 mg PO QID #15 tablet 11/02/20 Allergies Allergy/AdvReac Type Severity Reaction Status Date / Time codeine Allergy Hallucinati Verified 11/02/20 03:23 ons tramadol Allergy Hallucinati Verified 11/02/20 03:23 ons valacyclovir HCl AdvReac BLURRED Verified 11/02/20 03:23 [From Valtrex] VISION Review of Systems ROS Statement: Those systems with pertinent positive or pertinent negative responses have been documented in the HPI. ROS Other: All systems not noted in ROS Statement are negative. Past Medical History Past Medical History: Asthma, Diabetes Mellitus, Fibromyalgia, GERD/Reflux, Sleep Apnea/CPAP/BIPAP, Thyroid Disorder Additional Past Medical History / Comment(s): Migraines, DDD , IBS, NO CPAP used. HX PERFORATED DIVERTICULITIS, internal abd hematoma, seasonal allergies, History of Any Multi-Drug Resistant Organisms: None Reported Past Surgical History: Bowel Resection, Breast Surgery, Cholecystectomy, Hernia Repair Additional Past Surgical History / Comment(s): Rt Breast biopsy. bowel resection with Colostomy/ later colostomy Reversal, abdominal surgery to remove scar tissue Past Anesthesia/Blood Transfusion Reactions: No Reported Reaction Past Psychological History: Anxiety, Bipolar, Depression Smoking Status: Never smoker Past Alcohol Use History: None Reported Past Drug Use History: None Reported - Past Family History Mother History Unknown: Yes Family Medical History: No Reported History Additional Family Medical History / Comment(s): . Brother(s) Family Medical History: Diabetes Mellitus Father Family Medical History: Unable to Obtain General Exam Limitations: no limitations Course Vital Signs 11/02/20 11/02/20 11/02/20 03:19 04:29 05:40 Temperature 97.6 F Pulse Rate 102 H 94 81 Respiratory 20 20 20 Rate Blood Pressure 136/91 115/70 102/79 O2 Sat by Pulse 99 96 95 Oximetry Medical Decision Making - Lab Data Result diagrams: 11/02/20 03:37 11/02/20 03:37 Lab Results 11/02/20 11/02/20 11/02/20 Range/Units 03:37 03:37 03:37 WBC 12.7 H (3.8-10.6) k/uL RBC 4.95 (3.80-5.40) m/uL Hgb 12.3 (11.4-16.0) gm/dL Hct 39.4 (34.0-46.0) % MCV 79.6 L (80.0-100.0) fL MCH 24.8 L (25.0-35.0) pg MCHC 31.2 (31.0-37.0) g/dL RDW 15.2 (11.5-15.5) % Plt Count 422 (150-450) k/uL MPV 7.4 Neutrophils % 64 % Lymphocytes % 27 % Monocytes % 5 % Eosinophils % 2 % Basophils % 1 % Neutrophils # 8.1 H (1.3-7.7) k/uL Lymphocytes # 3.4 (1.0-4.8) k/uL Monocytes # 0.6 (0-1.0) k/uL Eosinophils # 0.3 (0-0.7) k/uL Basophils # 0.1 (0-0.2) k/uL Hypochromasia Moderate Sodium (137-145) mmol/L Potassium (3.5-5.1) mmol/L Chloride (98-107) mmol/L Carbon Dioxide (22-30) mmol/L Anion Gap mmol/L BUN (7-17) mg/dL Creatinine (0.52-1.04) mg/dL Est GFR (CKD-EPI)AfAm (>60 ml/min/1.73 sqM) Est GFR (CKD-EPI)NonAf (>60 ml/min/1.73 sqM) Glucose (74-99) mg/dL Calcium (8.4-10.2) mg/dL Total Bilirubin (0.2-1.3) mg/dL AST (14-36) U/L ALT (4-34) U/L Alkaline Phosphatase (38-126) U/L C-Reactive Protein (<1.0) mg/dL Total Protein (6.3-8.2) g/dL Albumin (3.5-5.0) g/dL Amylase (30-110) U/L Lipase (23-300) U/L Urine Color Yellow Urine Appearance Cloudy H (Clear) Urine pH 6.0 (5.0-8.0) Ur Specific [place] 1.033 (1.001-1.035) Urine Protein Trace H (Negative) Urine Glucose (UA) 4+ H (Negative) Urine Ketones Negative (Negative) Urine Blood Negative (Negative) Urine Nitrite Negative (Negative) Urine Bilirubin Negative (Negative) Urine Urobilinogen <2.0 (<2.0) mg/dL Ur Leukocyte Esterase Small H (Negative) Urine RBC 2 (0-5) /hpf Urine WBC 22 H (0-5) /hpf Ur Squamous Epith Cells 2 (0-4) /hpf Urine Bacteria Moderate H (None) /hpf Hyaline Casts 1 (0-2) /lpf Urine Mucus Occasional H (None) /hpf Urine HCG, Qual Not Detected (Not Detectd) 11/02/20 Range/Units 03:37 WBC (3.8-10.6) k/uL RBC (3.80-5.40) m/uL Hgb (11.4-16.0) gm/dL Hct (34.0-46.0) % MCV (80.0-100.0) fL MCH (25.0-35.0) pg MCHC (31.0-37.0) g/dL RDW (11.5-15.5) % Plt Count (150-450) k/uL MPV Neutrophils % % Lymphocytes % % Monocytes % % Eosinophils % % Basophils % % Neutrophils # (1.3-7.7) k/uL Lymphocytes # (1.0-4.8) k/uL Monocytes # (0-1.0) k/uL Eosinophils # (0-0.7) k/uL Basophils # (0-0.2) k/uL Hypochromasia Sodium 140 (137-145) mmol/L Potassium 4.2 (3.5-5.1) mmol/L Chloride 112 H (98-107) mmol/L Carbon Dioxide 19 L (22-30) mmol/L Anion Gap 9 mmol/L BUN 18 H (7-17) mg/dL Creatinine 1.04 (0.52-1.04) mg/dL Est GFR (CKD-EPI)AfAm 80 (>60 ml/min/1.73 sqM) Est GFR (CKD-EPI)NonAf 69 (>60 ml/min/1.73 sqM) Glucose 111 H (74-99) mg/dL Calcium 9.3 (8.4-10.2) mg/dL Total Bilirubin 0.3 (0.2-1.3) mg/dL AST 29 (14-36) U/L ALT 25 (4-34) U/L Alkaline Phosphatase 83 (38-126) U/L C-Reactive Protein 2.2 H (<1.0) mg/dL Total Protein 7.2 (6.3-8.2) g/dL Albumin 4.2 (3.5-5.0) g/dL Amylase 93 (30-110) U/L Lipase 230 (23-300) U/L Urine Color Urine Appearance (Clear) Urine pH (5.0-8.0) Ur Specific [place] (1.001-1.035) Urine Protein (Negative) Urine Glucose (UA) (Negative) Urine Ketones (Negative) Urine Blood (Negative) Urine Nitrite (Negative) Urine Bilirubin (Negative) Urine Urobilinogen (<2.0) mg/dL Ur Leukocyte Esterase (Negative) Urine RBC (0-5) /hpf Urine WBC (0-5) /hpf Ur Squamous Epith Cells (0-4) /hpf Urine Bacteria (None) /hpf Hyaline Casts (0-2) /lpf Urine Mucus (None) /hpf Urine HCG, Qual (Not Detectd) Disposition Clinical Impression: Abdominal pain Disposition: HOME SELF-CARE Condition: Good Instructions (If sedation given, give patient instructions): Abdominal Pain (ED) Prescriptions: Dicyclomine [Bentyl] 20 mg PO QID #15 tablet Is patient prescribed a controlled substance at d/c from ED?: No Referrals: Edgardo Inman MD [Primary Care Provider] - 1-2 days
== END 2020-11-02 06:46 | disposition home or self-care (01) ==
LOC: EC 03:18
DX: R10.31 Right lower quadrant pain (principal); J44.9 Chronic obstructive pulmonary disease, unspecified; E11.9 Type 2 diabetes mellitus without complications; G47.30 Sleep apnea, unspecified; K21.9 Gastro-esophageal reflux disease without esophagitis; G43.909 Migraine, unspecified, not intractable, without status migrainosus; M79.7 Fibromyalgia; F31.9 Bipolar disorder, unspecified; F41.9 Anxiety disorder, unspecified; Z79.51 Long term (current) use of inhaled steroids
CPT/HCPCS: 36415; 74177; 80053; 81001; 81025; 82150; 83690; 85025; 86140; 87086; 96374; 96375; 99284

== ENCOUNTER 2020-11-12 | Observation (INO) | payer OTHER | END 2020-11-14 13:28 | disposition home or self-care (01) | PROVIDERS: ADMIT Surgery | CPT/HCPCS: 96376 ×4; 96361 ×3; 96365; 96375; 99285; 36415; 80053; 82150; 83605; 83690; 85025; 81003; 81025; 74177; G0378 ×3; J2543; J2405; J1170 ×4; Q9967 ==

== ENCOUNTER 2020-11-21 | Emergency (ER) | payer OTHER | END 2020-11-21 23:52 | disposition home or self-care (01) ==

== ENCOUNTER 2020-11-22 18:10 | Emergency (ER) | payer OTHER ==
[2020-11-22 18:21] VITALS: RESP 18
[2020-11-22] MEDS ORDERED: KETOROLAC 15 MG/ML 1 ML VIAL IM STA (18:35)
[2020-11-22] MEDS ORDERED: ONDANSETRON 4 MG/2 ML VIAL IM STA (18:35)
--- NOTE | 2020-11-22 20:08 | ED ---
Lower Extremity Injury HPI - General Chief Complaint: Extremity Injury, Lower Stated Complaint: Back pain Time Seen by Provider: 11/22/20 18:23 Source: patient Mode of arrival: ambulatory Limitations: no limitations - History of Present Illness Initial Comments: 35-year-old female presents to emergency department with a chief complaint of left hip pain. Patient reports she was recently seen here for the same thing and the x-ray showed no acute findings. Patient reports she was discharged but she continues to have the pain. This symptom has been ongoing for the past week with gradual increase in severity. Reports it is located mostly on the lateral anterior aspect of the left hip with occasional radiation along the lateral left thigh. She denies any weakness or paresthesias. He states the pain is sharp 9/10. Exacerbated with ambulation and alleviated at rest. - Related Data Home Medications Medication Instructions Recorded Confirmed Levothyroxine Sodium [Synthroid] 50 mcg PO DAILY 05/05/14 11/21/20 traZODone HCL [Desyrel] 100 mg PO HS 04/04/15 11/21/20 Topiramate [Trokendi Xr] 200 mg PO DAILY 07/19/17 11/21/20 rOPINIRole HCL [Requip] 0.5 mg PO HS 01/23/19 11/21/20 Famotidine [Pepcid] 40 mg PO DAILY 07/28/19 11/21/20 Cetirizine HCl [Zyrtec] 10 mg PO DAILY 08/30/19 11/21/20 Pregabalin [Lyrica] 150 mg PO BID 08/30/19 11/21/20 [place] Fe 1.5-30 1 tab PO DAILY 04/21/20 11/21/20 Meloxicam 15 mg PO DAILY 06/28/20 11/21/20 HYDROcodone/APAP 7.5-325MG [[place] 1 tab PO TID PRN 08/10/20 11/21/20 7.5-325] ARIPiprazole [Abilify] 2 mg PO HS 09/14/20 11/21/20 Ondansetron Odt [Zofran Odt] 8 mg PO Q8HR PRN 09/14/20 11/21/20 Venlafaxine HCl [Effexor XR] 225 mg PO HS 09/14/20 11/21/20 Albuterol Inhaler [Ventolin Hfa 1 - 2 puff INHALATION RT-Q6H PRN 09/22/20 11/21/20 Inhaler] Erenumab-Aooe [Aimovig 140 mg SQ Q30D 09/22/20 11/21/20 Autoinjector] Ergocalciferol [Vitamin D2 (1250 1,250 mcg PO GARCIA 09/22/20 11/21/20 Mcg = 01548 Iu)] Empagliflozin [Jardiance] 25 mg PO DAILY 11/12/20 11/21/20 Rizatriptan Odt [[employer] Faculty Member] 10 mg PO DAILY PRN 11/12/20 11/21/20 metFORMIN HCL [Glucophage] 1,000 mg PO BID 11/12/20 11/21/20 Previous Rx's Medication Instructions Recorded Dicyclomine [Bentyl] 20 mg PO QID #15 tablet 11/02/20 Ibuprofen [Motrin] 800 mg PO Q6HR #30 tab 11/21/20 Allergies Allergy/AdvReac Type Severity Reaction Status Date / Time codeine Allergy Hallucinati Verified 11/22/20 18:20 ons tramadol Allergy Hallucinati Verified 11/22/20 18:20 ons valacyclovir HCl AdvReac BLURRED Verified 11/22/20 18:20 [From Valtrex] VISION Review of Systems ROS Statement: Those systems with pertinent positive or pertinent negative responses have been documented in the HPI. ROS Other: All systems not noted in ROS Statement are negative. Past Medical History Past Medical History: Asthma, Diabetes Mellitus, Fibromyalgia, GERD/Reflux, Sleep Apnea/CPAP/BIPAP, Thyroid Disorder Additional Past Medical History / Comment(s): Migraines, DDD , IBS, NO CPAP used. HX PERFORATED DIVERTICULITIS, internal abd hematoma, seasonal allergies, History of Any Multi-Drug Resistant Organisms: None Reported Past Surgical History: Bowel Resection, Breast Surgery, Cholecystectomy, Hernia Repair Additional Past Surgical History / Comment(s): Rt Breast biopsy. bowel resection with Colostomy/ later colostomy Reversal, abdominal surgery to remove scar tissue. Past Anesthesia/Blood Transfusion Reactions: No Reported Reaction Past Psychological History: Anxiety, Bipolar, Depression Smoking Status: Never smoker Past Alcohol Use History: None Reported Past Drug Use History: None Reported - Past Family History Mother History Unknown: Yes Family Medical History: No Reported History Additional Family Medical History / Comment(s): . Brother(s) Family Medical History: Diabetes Mellitus Father Family Medical History: Unable to Obtain General Exam Limitations: no limitations General appearance: alert, in no apparent distress, obese Head exam: Present: atraumatic, normocephalic, normal inspection Eye exam: Present: normal appearance, PERRL, EOMI Pupils: Present: normal accommodation ENT exam: Present: normal exam, normal oropharynx, mucous membranes moist Neck exam: Present: normal inspection, full ROM. Absent: tenderness, meningismus, lymphadenopathy Respiratory exam: Present: normal lung sounds bilaterally. Absent: respiratory distress, wheezes, rales, rhonchi, stridor Cardiovascular Exam: Present: regular rate, normal rhythm, normal heart sounds. Absent: systolic murmur Extremities exam: Present: normal inspection, tenderness (Anterior lateral left hip tenderness), normal capillary refill, other (Sensation intact in the left leg. Palpable DP and PT bilaterally). Absent: full ROM (Limited range of motion due to pain in the left hip), pedal edema, joint swelling, calf tenderness Back exam: Present: normal inspection, full ROM. Absent: tenderness, CVA tenderness (R), CVA tenderness (L) Neurological exam: Present: alert, oriented X3 Psychiatric exam: Present: normal affect, normal mood Skin exam: Present: warm, dry, intact, normal color Course Vital Signs 11/22/20 18:19 Temperature 97.8 F Pulse Rate 96 Respiratory 18 Rate Blood Pressure 169/99 O2 Sat by Pulse 98 Oximetry Medical Decision Making - Medical Decision Making 35-year-old male presents to emergency department with a chief complaint of left hip pain. On physical examination, she is neurovascularly intact. Limit her range of motion due to pain. X-ray was obtained yesterday showed no acute findings. I did obtain a CT which was unremarkable. I gave her Toradol for pain. I do suspect hip bursitis. I advised the patient to follow-up with origination specialist. We'll start her on prednisone for the next few days. Strict return parameters were thoroughly discussed with patient is an attending and agreeable. Case discussed with physician. Disposition Clinical Impression: Left hip pain Disposition: HOME SELF-CARE Condition: Stable Instructions (If sedation given, give patient instructions): Hip Bursitis (ED) Additional Instructions: Follow-up with origination specialist. Return to emergency department if symptoms worsen. Is patient prescribed a controlled substance at d/c from ED?: No Referrals: Edgardo Inman MD [Primary Care Provider] - 1-2 days Jostin Cox DO [Doctor of Osteopathic Medicine] - 1-2 days Time of Disposition: 20:57
--- NOTE | 2020-11-22 20:26 | CT ---
EXAMINATION TYPE: CT hip LT wo con DATE OF EXAM: 11/22/2020 COMPARISON: CT scan 11/12/2020 HISTORY: left hip pain, no injury CT DLP: 2152.6 mGycm Automated exposure control for dose reduction was used. Images were obtained from the top of the iliac crest to the subtrochanteric femur without contrast. The acetabulum is intact. Sacroiliac joint appears intact. There is no evidence of hip fracture. The proximal femur is intact. There is no hip dysplasia. Hip joint space is fairly normal. There is no si gn of avascular necrosis. I see no bony destructive process. There is no sign of a soft tissue mass. IMPRESSION: Negative CT scan of the left hip.
[2020-11-22 21:15] VITALS: BP 99/57; PULSE 77; TEMP 98.3
[2020-11-22] MEDS ORDERED: predniSONE 20 MG TAB PO STA (21:27)
== END 2020-11-22 21:56 | disposition home or self-care (01) ==
LOC: EC 18:10
DX: M25.552 Pain in left hip (principal); E11.9 Type 2 diabetes mellitus without complications; J45.909 Unspecified asthma, uncomplicated; M79.7 Fibromyalgia; K21.9 Gastro-esophageal reflux disease without esophagitis; E07.9 Disorder of thyroid, unspecified; F32.9 Major depressive disorder, single episode, unspecified; G47.33 Obstructive sleep apnea (adult) (pediatric); Z79.84 Long term (current) use of oral hypoglycemic drugs; Z99.81 Dependence on supplemental oxygen
CPT/HCPCS: 73700; 99284; 96372 ×2; J2405; J1885; J7512

== ENCOUNTER 2020-11-27 16:22 | Emergency (ER) | payer OTHER ==
[2020-11-27 16:26] VITALS: BP 141/89; PULSE 104; RESP 20; TEMP 98.7
[2020-11-27] MEDS ORDERED: KETOROLAC 15 MG/ML 1 ML VIAL IM STA (16:51)
[2020-11-27] MEDS ORDERED: ORPHENADRINE 30 MG/ML 2 ML VIAL IM STA (16:51)
--- NOTE | 2020-11-27 16:58 | ED ---
Extremity Problem HPI - General Chief complaint: Extremity Problem,Nontraumatic Stated complaint: hip pain-revisit Source: patient, RN notes reviewed, old records reviewed Mode of arrival: ambulatory Limitations: no limitations - History of Present Illness Initial comments: 35-year-old obese white female, presents to the emergency room alert and oriented 4, with complaints of left hip pain for the past 2 weeks. Patient states that she was seen here a couple times and had an x-ray and a CAT scan of her left hip with no source of pain. She states that she was prescribed pr ednisone for 5 days and had no relief. She states that her primary care doctor will not give her an appointment. She tried to get an orthopedic associates and states that she needs a referral from her primary care doctor. Patient has seen [facility] one year ago and was told she has a bone spur in her left hip which is causing her pain. Patient states she does have an appoin tment with them in the next 2 weeks but cannot get comfortable and doesn't know what to do. Patient is taking Mobic, Lyrica, topiramate, Abilify and Requip and states no relief with these medications. She denies any fevers, nausea vomiting or diarrhea. She states there is no abdominal pain. She has no loss of bowel or bladder or saddle anesthesia. She has no focal neurological deficits. MD Complaint: joint pain (Left hip pain) -: week(s) (2) Location: left, lower extremity History of Same: Yes (Was told she has a bone spur in her left hip) Radiation: none Severity scale (1-10): 8 Quality: sharp Consistency: constant Improves with: other (Laying on her right side) Worsens with: walking, other (Sitting ) Associated Symptoms: denies other symptoms - Related Data Home Medications Medication Instructions Recorded Confirmed Levothyroxine Sodium [Synthroid] 50 mcg PO DAILY 05/05/14 11/21/20 traZODone HCL [Desyrel] 100 mg PO HS 04/04/15 11/21/20 Topiramate [Trokendi Xr] 200 mg PO DAILY 07/19/17 11/21/20 rOPINIRole HCL [Requip] 0.5 mg PO HS 01/23/19 11/21/20 Famotidine [Pepcid] 40 mg PO DAILY 07/28/19 11/21/20 Cetirizine HCl [Zyrtec] 10 mg PO DAILY 08/30/19 11/21/20 Pregabalin [Lyrica] 150 mg PO BID 08/30/19 11/21/20 Blisovi Fe 1.5-30 1 tab PO DAILY 04/21/20 11/21/20 Meloxicam 15 mg PO DAILY 06/28/20 11/21/20 HYDROcodone/APAP 7.5-325MG [[place] 1 tab PO TID PRN 08/10/20 11/21/20 7.5-325] ARIPiprazole [Abilify] 2 mg PO HS 09/14/20 11/21/20 Ondansetron Odt [Zofran Odt] 8 mg PO Q8HR PRN 09/14/20 11/21/20 Venlafaxine HCl [Effexor XR] 225 mg PO HS 09/14/20 11/21/20 Albuterol Inhaler [Ventolin Hfa 1 - 2 puff INHALATION RT-Q6H PRN 09/22/2011/21 Inhaler] Erenumab-Aooe [Aimovig 140 mg SQ Q30D 09/22/20 11/21/20 Autoinjector] Ergocalciferol [Vitamin D2 (1250 1,250 mcg PO GARCIA 09/22/20 11/21/20 Mcg = 41577 Iu)] Empagliflozin [Jardiance] 25 mg PO DAILY 11/12/20 11/21/20 Rizatriptan Odt [Maxalt Hat [employer]ist] 10 mg PO DAILY PRN 11/12/20 11/21/20 metFORMIN HCL [Glucophage] 1,000 mg PO BID 11/12/20 11/21/20 Previous Rx's Medication Instructions Recorded Dicyclomine [Bentyl] 20 mg PO QID #15 tablet 11/02/20 Ibuprofen [Motrin] 800 mg PO Q6HR #30 tab 11/21/20 predniSONE 50 mg PO DAILY #5 tab 11/22/20 Lidocaine [Lidoderm 5% Patch] 1 patch TRANSDERM DAILY 7 Days #7 11/27/20 patch Naproxen 500 mg PO BID 10 Days #20 tablet 11/27/20 Allergies Allergy/AdvReac Type Severity Reaction Status Date / Time codeine Allergy Hallucinati Verified 11/27/20 16:26 ons tramadol Allergy Hallucinati Verified 11/27/20 16:26 ons valacyclovir HCl AdvReac BLURRED Verified 11/27/20 16:26 [From Valtrex] VISION Review of Systems ROS Statement: Those systems with pertinent positive or pertinent negative responses have been documented in the HPI. ROS Other: All systems not noted in ROS Statement are negative. Past Medical History Past Medical History: Asthma, Diabetes Mellitus, Fibromyalgia, GERD/Reflux, Sleep Apnea/CPAP/BIPAP, Thyroid Disorder Additional Past Medical History / Comment(s): Migraines, DDD , IBS, NO CPAP used. HX PERFORATED DIVERTICULITIS, internal abd hematoma, seasonal allergies, History of Any Multi-Drug Resistant Organisms: None Reported Past Surgical History: Bowel Resection, Breast Surgery, Cholecystectomy, Hernia Repair Additional Past Surgical History / Comment(s): Rt Breast biopsy. bowel resection with Colostomy/ later colostomy Reversal, abdominal surgery to remove scar tissue. Past Anesthesia/Blood Transfusion Reactions: No Reported Reaction Past Psychological History: Anxiety, Bipolar, Depression Smoking Status: Never smoker Past Alcohol Use History: None Reported Past Drug Use History: None Reported - Past Family History Mother History Unknown: Yes Family Medical History: No Reported History Additional Family Medical History / Comment(s): . Brother(s) Family Medical History: Diabetes Mellitus Father Family Medical History: Unable to Obtain General Exam Limitations: no limitations General appearance: alert, in no apparent distress Head exam: Present: atraumatic, normocephalic, normal inspection Eye exam: Present: normal appearance, PERRL, EOMI. Absent: scleral icterus, conjunctival injection, periorbital swelling ENT exam: Present: normal exam, normal oropharynx, mucous membranes moist Neck exam: Present: normal inspection, full ROM. Absent: tenderness, meningismus, lymphadenopathy Respiratory exam: Present: normal lung sounds bilaterally. Absent: respiratory distress, wheezes, rales, rhonchi, stridor, chest wall tenderness, accessory muscle use Cardiovascular Exam: Present: tachycardia GI/Abdominal exam: Present: soft, normal bowel sounds. Absent: distended, tenderness, guarding, rebound, rigid Extremities exam: Present: normal inspection, full ROM, normal capillary refill. Absent: tenderness, pedal edema, joint swelling, calf tenderness Back exam: Absent: tenderness, CVA tenderness (R), CVA tenderness (L), muscle spasm, paraspinal tenderness, vertebral tenderness Neurological exam: Present: alert, oriented X3, CN II-XII intact Psychiatric exam: Present: normal affect, normal mood Skin exam: Present: warm, dry, intact, normal color. Absent: rash, cyanosis, diaphoretic, erythema, petechiae, pallor, mottled Course Vital Signs 11/27/20 16:24 Temperature 98.7 F Pulse Rate 104 H Respiratory 20 Rate Blood Pressure 141/89 O2 Sat by Pulse 99 Oximetry Medical Decision Making - Medical Decision Making Patient has had this chronic left hip pain for over a year and has been seen [facility]. She states that she has an appointment in 2 weeks with them. She had an x-ray and CAT scan done on 11/21 and 11/22, which was negative for arthritis or fracture. She is already taking Mobic, Abilify, Requip Topamax and [place] for pain. She just finished a five-day course of steroids and her last visit on 11/21. Case discussed with Dr. Gordillo, will prescribe patient Naprosyn to take instead of low back in addition to Lidoderm patches. Patient will be given a referral to another primary care physician since she was unable to get into Dr. Inman's office. Disposition Clinical Impression: Chronic back pain Disposition: HOME SELF-CARE Condition: Fair Instructions (If sedation given, give patient instructions): Chronic Back Pain (DC) Additional Instructions: Use Lidoderm patches and your previously prescribed medications. Also use Naprosyn as prescribed instead of your Me[place] back. Follow-up with the primary care doctor or another primary care referral. Keep your appointment with [facility] in 2 weeks. Prescriptions: Lidocaine [Lidoderm 5% Patch] 1 patch TRANSDERM DAILY 7 Days #7 patch Naproxen 500 mg PO BID 10 Days #20 tablet Is patient prescribed a controlled substance at d/c from ED?: No Referrals: Edgardo Inman MD [Primary Care Provider] - 1-2 days Xi Herrera MD [STAFF PHYSICIAN] - 1-2 days Jostin Cox DO [Doctor of Osteopathic Medicine] - 1-2 days Time of Disposition: 17:46
[2020-11-27] MEDS ORDERED: LIDOCAINE 5% PATCH TOPICAL STA (17:49)
== END 2020-11-27 18:10 | disposition home or self-care (01) ==
LOC: EC 16:22
DX: G89.29 Other chronic pain (principal); M54.9 Dorsalgia, unspecified; M25.552 Pain in left hip; E11.9 Type 2 diabetes mellitus without complications; E66.9 Obesity, unspecified; J45.909 Unspecified asthma, uncomplicated; K21.9 Gastro-esophageal reflux disease without esophagitis; K58.9 Irritable bowel syndrome, unspecified; M79.7 Fibromyalgia; G43.909 Migraine, unspecified, not intractable, without status migrainosus; F31.9 Bipolar disorder, unspecified; F41.9 Anxiety disorder, unspecified; Z79.1 Long term (current) use of non-steroidal anti-inflammatories (NSAID); Z79.52 Long term (current) use of systemic steroids; Z79.51 Long term (current) use of inhaled steroids; Z79.84 Long term (current) use of oral hypoglycemic drugs; Z88.5 Allergy status to narcotic agent; Z88.8 Allergy status to other drugs, medicaments and biological substances; Z68.42 Body mass index [BMI] 45.0-49.9, adult
CPT/HCPCS: 99283; 96372 ×2; J2360; J1885

== ENCOUNTER 2020-12-08 12:07 | Emergency (ER) | payer OTHER ==
[2020-12-08 12:41] VITALS: TEMP 98.2
[2020-12-08] MEDS ORDERED: LORazepam 1 MG TAB PO STA (13:00)
--- NOTE | 2020-12-08 13:03 | ED ---
General Adult HPI - General Chief complaint: Anxiety Stated complaint: panic attack Time Seen by Provider: 12/08/20 12:35 Source: patient, RN notes reviewed, old records reviewed Mode of arrival: ambulatory Limitations: no limitations - History of Present Illness Initial comments: This is a 35-year-old female presents emergency Department complaining that she is having a panic attack. Patient states she has a long-standing history of panic attacks and this feels exactly like her previous attacks. Patient states she was awaiting to get a EKG shows she can get lidocaine infusions for fibromyalgia from her neurologist. Patient states sitting in the lobby she became much more anxious and stressed and then she started having a panic attack. Patient states she believes a lot of this stems from the fact that her and her boyfriend had a huge flight a couple of days ago. Patient denies any physical complaints she states her chest is tight but this is typical of her anxiety. Patient denies any difficulty breathing shortest breath per patient denies any headache patient denies numbness weakness. Patient denies any abdominal pain patient denies nausea vomiting diarrhea. Patient denies any recent fever chills or cough. - Related Data Home Medications Medication Instructions Recorded Confirmed Levothyroxine Sodium [Synthroid] 50 mcg PO DAILY 05/05/14 12/08/20 traZODone HCL [Desyrel] 100 mg PO HS 04/04/15 12/08/20 Topiramate [Trokendi Xr] 200 mg PO DAILY 07/19/17 12/08/20 rOPINIRole HCL [Requip] 0.5 mg PO HS 01/23/19 12/08/20 Famotidine [Pepcid] 40 mg PO DAILY 07/28/19 12/08/20 Cetirizine HCl [Zyrtec] 10 mg PO DAILY 08/30/19 12/08/20 Pregabalin [Lyrica] 150 mg PO BID 08/30/19 12/08/20 Blisovi Fe 1.5-30 1 tab PO DAILY 04/21/20 12/08/20 Meloxicam 15 mg PO DAILY 06/28/20 12/08/20 HYDROcodone/APAP 7.5-325MG [[place] 1 tab PO TID PRN 08/10/20 12/08/20 7.5-325] ARIPiprazole [Abilify] 2 mg PO HS 09/14/20 12/08/20 Ondansetron Odt [Zofran Odt] 8 mg PO Q8HR PRN 09/14/20 12/08/20 Venlafaxine HCl [Effexor XR] 225 mg PO DAILY 09/14/20 12/08/20 Erenumab-Aooe [Aimovig 140 mg SQ Q30D 09/22/20 12/08/20 Autoinjector] Ergocalciferol [Vitamin D2 (1250 1,250 mcg PO GARCIA 09/22/20 12/08/20 Mcg = 18183 Iu)] Empagliflozin [Jardiance] 25 mg PO DAILY 11/12/20 12/08/20 Rizatriptan Odt [Maxalt [employer]] 10 mg PO DAILY PRN 11/12/20 12/08/20 metFORMIN HCL [Glucophage] 1,000 mg PO BID 11/12/20 12/08/20 Allergies Allergy/AdvReac Type Severity Reaction Status Date / Time codeine Allergy Hallucinati Verified 12/08/20 13:43 ons tramadol Allergy Hallucinati Verified 12/08/20 13:43 ons valacyclovir HCl AdvReac BLURRED Verified 12/08/20 13:43 [From Valtrex] VISION Review of Systems ROS Statement: Those systems with pertinent positive or pertinent negative responses have been documented in the HPI. ROS Other: All systems not noted in ROS Statement are negative. Past Medical History Past Medical History: Asthma, Diabetes Mellitus, Fibromyalgia, GERD/Reflux, Sleep Apnea/CPAP/BIPAP, Thyroid Disorder Additional Past Medical History / Comment(s): Migraines, DDD , IBS, NO CPAP used. HX PERFORATED DIVERTICULITIS, internal abd hematoma, seasonal allergies, History of Any Multi-Drug Resistant Organisms: None Reported Past Surgical History: Bowel Resection, Breast Surgery, Cholecystectomy, Hernia Repair Additional Past Surgical History / Comment(s): Rt Breast biopsy. bowel resection with Colostomy/ later colostomy Reversal, abdominal surgery to remove scar tissue. Past Anesthesia/Blood Transfusion Reactions: No Reported Reaction Past Psychological History: Anxiety, Bipolar, Depression Smoking Status: Never smoker Past Alcohol Use History: None Reported Past Drug Use History: None Reported - Past Family History Mother History Unknown: Yes Family Medical History: No Reported History Additional Family Medical History / Comment(s): . Brother(s) Family Medical History: Diabetes Mellitus Father Family Medical History: Unable to Obtain General Exam - General Exam Comments Initial Comments: GENERAL: Patient is well-developed and well-nourished. Patient is nontoxic and well- hydrated and is in mild distress. ENT: Neck is soft and supple. No significant lymphadenopathy is noted. Oropharynx is clear. Moist mucous membranes. Neck has full range of motion without eliciting any pain. EYES: The sclera were anicteric and conjunctiva were pink and moist. Extraocular movements were intact and pupils were equal round and reactive to light. Eyelids were unremarkable. PULMONARY: Unlabored respirations. Good breath sounds bilaterally. No audible rales rhonchi or wheezing was noted. CARDIOVASCULAR: There is a regular rate and rhythm without any murmurs gallops or rubs. ABDOMEN: Soft and nontender with normal bowel sounds. SKIN: Skin is clear with no lesions or rashes and otherwise unremarkable. NEUROLOGIC: Patient is alert and oriented x3. Cranial nerves II through XII are grossly intact. Motor and sensory are also intact. Normal speech, volume and content. Symmetrical smile. MUSCULOSKELETAL: Normal extremities with adequate strength and full range of motion. LYMPHATICS: No significant lymphadenopathy is noted PSYCHIATRIC: Patient is very anxious Limitations: no limitations Course Vital Signs 12/08/20 12:36 Temperature 98.2 F Pulse Rate 88 Respiratory 26 H Rate Blood Pressure 92/63 O2 Sat by Pulse 100 Oximetry Medical Decision Making - Medical Decision Making Patient's EKG shows normal sinus rhythm at 80 bpm PA interval 158 QRS is 92 QT interval 392 QTC is 452. Patient's EKG shows no ST segment elevation or depression. I went back and reevaluate the patient after she received Ativan she was feeling considerably better and no longer had any chest tightness. Disposition Clinical Impression: Acute anxiety Disposition: HOME SELF-CARE Instructions (If sedation given, give patient instructions): Generalized Anxiety Disorder (ED) Is patient prescribed a controlled substance at d/c from ED?: No Referrals: Edgardo Inman MD [Primary Care Provider] - 1-2 days Time of Disposition: 13:51
[2020-12-08 14:06] VITALS: BP 100/64; PULSE 78; RESP 18
== END 2020-12-08 14:06 | disposition home or self-care (01) ==
LOC: EC 12:07
DX: F41.9 Anxiety disorder, unspecified (principal); J45.909 Unspecified asthma, uncomplicated; E11.9 Type 2 diabetes mellitus without complications; M79.7 Fibromyalgia; K21.9 Gastro-esophageal reflux disease without esophagitis; G47.30 Sleep apnea, unspecified; G43.909 Migraine, unspecified, not intractable, without status migrainosus; Z79.84 Long term (current) use of oral hypoglycemic drugs
CPT/HCPCS: 93005; 99283

== ENCOUNTER → 2020-12-08 | Outpatient (CLI) | payer OTHER | END | disposition home or self-care (01) | LOC: LABWHC1 11:17 | PROVIDERS: ATTEND Physician Assistant | DX: I49.9 Cardiac arrhythmia, unspecified (principal) | CPT/HCPCS: 36415; 93005 ==

== ENCOUNTER 2020-12-17 22:17 | Emergency (ER) | payer OTHER ==
[2020-12-17 22:27] VITALS: RESP 18; TEMP 98.2
[2020-12-17] MEDS ORDERED: SODIUM CHLORIDE 0.9% 1,000 ML IV STA (22:50)
[2020-12-17] MEDS ORDERED: HYDROmorphone 1 MG/ML 1 ML SYRINGE IVP STA (22:50)
[2020-12-17] MEDS ORDERED: ONDANSETRON 4 MG/2 ML VIAL IVP STA (22:50)
[2020-12-17 23:25] LABS: Anisocytosis Slight; Basophils # (A) 0.1 k/uL (0-0.2); Basophils % (A) 1 %; Eosinophils # (A) 0.1 k/uL (0-0.7); Eosinophils % (A) 1 %; HCT 38.6 % (34.0-46.0); HGB 12.2 gm/dL (11.4-16.0); Hypochromasia Moderate; Lymphocytes % (A) 37 %; MCH 25.4 pg (25.0-35.0); MCHC 31.6 g/dL (31.0-37.0); MCV 80.2 fL (80.0-100.0); Mean Platelet Volume 7.3; Monocytes # (A) 0.6 k/uL (0-1.0); Monocytes % (A) 6 %; Neutrophils # (A) 5.5 k/uL (1.3-7.7); Neutrophils % (A) 52 %; Platelet Count 430 k/uL (150-450); RBC 4.81 m/uL (3.80-5.40); RDW 16.7 % (11.5-15.5); WBC 10.6 k/uL (3.8-10.6)
[2020-12-17 23:29] LABS: Appearance,Urine Clear (Clear); Bilirubin,Urine Negative (Negative); Blood,Urine Negative (Negative); Color,Urine Yellow; Glucose,Urine (UA) 4+ (Negative); Ketones,Urine Negative (Negative); Leukocyte Esterase,Urine Negative (Negative); Nitrite,Urine Negative (Negative); Protein,Urine Negative (Negative); Specific Gravity,Urine 1.028 (1.001-1.035)
[2020-12-17 23:35] LABS: ALT 34 U/L (4-34); AST 45 U/L (14-36); African American GFR (CKD) >90 (>60 ml/min/1.73 sqM); Albumin 4.1 g/dL (3.5-5.0); Alkaline Phosphatase 60 U/L (38-126); Anion Gap 12 mmol/L; Blood Urea Nitrogen 16 mg/dL (7-17); Carbon Dioxide 16 mmol/L (22-30); Chloride 108 mmol/L (98-107); Glucose 201 mg/dL (74-99); Lipase 206 U/L (23-300); Non-African American GFR(CKD) 88 (>60 ml/min/1.73 sqM); Sodium 136 mmol/L (137-145); Total Bilirubin 0.5 mg/dL (0.2-1.3); Total Protein 7.1 g/dL (6.3-8.2)
--- NOTE | 2020-12-17 23:35 | ED ---
Abdominal Pain HPI - General Chief Complaint: Abdominal Pain Stated Complaint: Abd pain Time Seen by Provider: 12/17/20 22:37 Source: patient Mode of arrival: ambulatory - History of Present Illness Initial Comments: 35-year-old female patient presents to the emergency department today for evaluation of left upper quadrant abdominal tenderness. Patient states that she's had pain starting early this morning and persisted throughout the day. States it is sharp stabbing pain. States she has had an episode of vomiting earlier in consistent nausea throughout the day. Denies any fever or chills. Denies any constipation or diarrhea. Denies any difficulty with urination. Terrence kovacs does have history of multiple abdominal surgeries including hernia repair, bowel perforation with resection and colostomy with subsequent reversal, and lysis of adhesions. Her surgeon is Dr. Meadows. Patient denies any recent rash, cough, shortness of breath, chest pain, back pain, numbness, tingling, dizziness, weakness, hematuria, dysuria, urinary urgency, urinary frequency, headache, visual changes, or any other complaints. She has been taking [place] throughout the day without relief. - Related Data Home Medications Medication Instructions Recorded Confirmed Levothyroxine Sodium [Synthroid] 50 mcg PO DAILY 05/05/14 12/08/20 traZODone HCL [Desyrel] 100 mg PO HS 04/04/15 12/08/20 Topiramate [Trokendi Xr] 200 mg PO DAILY 07/19/17 12/08/20 rOPINIRole HCL [Requip] 0.5 mg PO HS 01/23/19 12/08/20 Famotidine [Pepcid] 40 mg PO DAILY 07/28/19 12/08/20 Cetirizine HCl [Zyrtec] 10 mg PO DAILY 08/30/19 12/08/20 Pregabalin [Lyrica] 150 mg PO BID 08/30/19 12/08/20 Blisovi Fe 1.5-30 1 tab PO DAILY 04/21/20 12/08/20 Meloxicam 15 mg PO DAILY 06/28/20 12/08/20 HYDROcodone/APAP 7.5-325MG [[place] 1 tab PO TID PRN 08/10/20 12/08/20 7.5-325] ARIPiprazole [Abilify] 2 mg PO HS 09/14/20 12/08/20 Ondansetron Odt [Zofran Odt] 8 mg PO Q8HR PRN 09/14/20 12/08/20 Venlafaxine HCl [Effexor XR] 225 mg PO DAILY 09/14/20 12/08/20 Erenumab-Aooe [Aimovig 140 mg SQ Q30D 09/22/20 12/08/20 Autoinjector] Ergocalciferol [Vitamin D2 (1250 1,250 mcg PO GARCIA 09/22/20 12/08/20 Mcg = 60416 Iu)] Empagliflozin [Jardiance] 25 mg PO DAILY 11/12/20 12/08/20 Rizatriptan Odt [Maxalt [place]] 10 mg PO DAILY PRN 11/12/20 12/08/20 metFORMIN HCL [Glucophage] 1,000 mg PO BID 11/12/20 12/08/20 Allergies Allergy/AdvReac Type Severity Reaction Status Date / Time codeine Allergy Hallucinati Verified 12/17/20 22:27 ons tramadol Allergy Hallucinati Verified 12/17/20 22:27 ons valacyclovir HCl AdvReac BLURRED Verified 12/17/20 22:27 [From Valtrex] VISION Review of Systems ROS Statement: Those systems with pertinent positive or pertinent negative responses have been documented in the HPI. ROS Other: All systems not noted in ROS Statement are negative. Past Medical History Past Medical History: Asthma, Diabetes Mellitus, Fibromyalgia, GERD/Reflux, Sleep Apnea/CPAP/BIPAP, Thyroid Disorder Additional Past Medical History / Comment(s): Migraines, DDD , IBS, NO CPAP used. HX PERFORATED DIVERTICULITIS, internal abd hematoma, seasonal allergies, History of Any Multi-Drug Resistant Organisms: None Reported Past Surgical History: Bowel Resection, Breast Surgery, Cholecystectomy, Hernia Repair Additional Past Surgical History / Comment(s): Rt Breast biopsy. bowel resection with Colostomy/ later colostomy Reversal, abdominal surgery to remove scar tissue. Past Anesthesia/Blood Transfusion Reactions: No Reported Reaction Past Psychological History: Anxiety, Bipolar, Depression Smoking Status: Never smoker Past Alcohol Use History: None Reported Past Drug Use History: None Reported - Past Family History Mother History Unknown: Yes Family Medical History: No Reported History Additional Family Medical History / Comment(s): . Brother(s) Family Medical History: Diabetes Mellitus Father Family Medical History: Unable to Obtain General Exam General appearance: alert, in no apparent distress, other (Physical well- developed, well-nourished adult female patient in no acute distress. Vital signs upon presentation are temperature 98.2F, pulse 78, respirations 18, blood pressure 144/88, pulse ox 98% on room air.) Eye exam: Present: normal appearance, PERRL, EOMI. Absent: scleral icterus, conjunctival injection, periorbital swelling ENT exam: Present: normal exam, normal oropharynx, mucous membranes moist Respiratory exam: Present: normal lung sounds bilaterally. Absent: respiratory distress, wheezes, rales, rhonchi, stridor Cardiovascular Exam: Present: regular rate, normal rhythm, normal heart sounds. Absent: systolic murmur, diastolic murmur, rubs, gallop, clicks GI/Abdominal exam: Present: soft, tenderness (Left upper quadrant), normal bowel sounds. Absent: distended, guarding, rebound, rigid Neurological exam: Present: alert, oriented X3, CN II-XII intact Psychiatric exam: Present: normal affect, normal mood Skin exam: Present: warm, dry, intact, normal color. Absent: rash Course Vital Signs 12/17/20 12/18/20 22:24 02:02 Temperature 98.2 F Pulse Rate 78 70 Respiratory 18 18 Rate Blood Pressure 144/88 144/81 O2 Sat by Pulse 98 100 Oximetry Medical Decision Making - Medical Decision Making 35-year-old female patient presents to the emergency department today for evaluation of left upper quadrant abdominal pain. Physical examination did reveal tenderness and left upper quadrant. Patient has had multiple abdominal surgeries in the past with Dr. Meadows. labs reviewed and did reveal mildly elevated lactic acid 2.4. White blood cell count is normal. She is afebrile, vital signs satisfactory. CT abdomen and pelvis was obtained and redemonstrated a fluid collection in the anterior abdominal wall which is not increased or changed to any extent compared to last CT in August. I did discuss findings and results with her. Should be discharged up with Dr. Villanueva on Sunday. Return parameters were discussed in detail. She verbalizes understanding and agrees this plan. Case discussed with my attending Dr. Anderson. - Lab Data Result diagrams: 12/17/20 23:02 12/17/20 23:02 Lab Results 12/17/20 12/17/20 12/17/20 Range/Units 23:02 23:02 23:02 WBC 10.6 (3.8-10.6) k/uL RBC 4.81 (3.80-5.40) m/uL Hgb 12.2 (11.4-16.0) gm/dL Hct 38.6 (34.0-46.0) % MCV 80.2 (80.0-100.0) fL MCH 25.4 (25.0-35.0) pg MCHC 31.6 (31.0-37.0) g/dL RDW 16.7 H (11.5-15.5) % Plt Count 430 (150-450) k/uL MPV 7.3 Neutrophils % 52 % Lymphocytes % 37 % Monocytes % 6 % Eosinophils % 1 % Basophils % 1 % Neutrophils # 5.5 (1.3-7.7) k/uL Lymphocytes # 4.0 (1.0-4.8) k/uL Monocytes # 0.6 (0-1.0) k/uL Eosinophils # 0.1 (0-0.7) k/uL Basophils # 0.1 (0-0.2) k/uL Hypochromasia Moderate Anisocytosis Slight Sodium 136 L (137-145) mmol/L Potassium 4.6 (3.5-5.1) mmol/L Chloride 108 H (98-107) mmol/L Carbon Dioxide 16 L (22-30) mmol/L Anion Gap 12 mmol/L BUN 16 (7-17) mg/dL Creatinine 0.85 (0.52-1.04) mg/dL Est GFR (CKD-EPI)AfAm >90 (>60 ml/min/1.73 sqM) Est GFR (CKD-EPI)NonAf 88 (>60 ml/min/1.73 sqM) Glucose 201 H (74-99) mg/dL Lactic Ac Sepsis Rflx Plasma Lactic Acid Yobani (0.7-2.0) mmol/L Calcium 9.0 (8.4-10.2) mg/dL Total Bilirubin 0.5 (0.2-1.3) mg/dL AST 45 H (14-36) U/L ALT 34 (4-34) U/L Alkaline Phosphatase 60 (38-126) U/L Total Protein 7.1 (6.3-8.2) g/dL Albumin 4.1 (3.5-5.0) g/dL Lipase 206 (23-300) U/L Urine Color Yellow Urine Appearance Clear (Clear) Urine pH 6.0 (5.0-8.0) Ur Specific [place] 1.028 (1.001-1.035) Urine Protein Negative (Negative) Urine Glucose (UA) 4+ H (Negative) Urine Ketones Negative (Negative) Urine Blood Negative (Negative) Urine Nitrite Negative (Negative) Urine Bilirubin Negative (Negative) Urine Urobilinogen 2.0 (<2.0) mg/dL Ur Leukocyte Esterase Negative (Negative) 12/17/20 12/17/20 Range/Units 23:02 23:52 WBC (3.8-10.6) k/uL RBC (3.80-5.40) m/uL Hgb (11.4-16.0) gm/dL Hct (34.0-46.0) % MCV (80.0-100.0) fL MCH (25.0-35.0) pg MCHC (31.0-37.0) g/dL RDW (11.5-15.5) % Plt Count (150-450) k/uL MPV Neutrophils % % Lymphocytes % % Monocytes % % Eosinophils % % Basophils % % Neutrophils # (1.3-7.7) k/uL Lymphocytes # (1.0-4.8) k/uL Monocytes # (0-1.0) k/uL Eosinophils # (0-0.7) k/uL Basophils # (0-0.2) k/uL Hypochromasia Anisocytosis Sodium (137-145) mmol/L Potassium (3.5-5.1) mmol/L Chloride (98-107) mmol/L Carbon Dioxide (22-30) mmol/L Anion Gap mmol/L BUN (7-17) mg/dL Creatinine (0.52-1.04) mg/dL Est GFR (CKD-EPI)AfAm (>60 ml/min/1.73 sqM) Est GFR (CKD-EPI)NonAf (>60 ml/min/1.73 sqM) Glucose (74-99) mg/dL Lactic Ac Sepsis Rflx Y Plasma Lactic Acid Yobani 2.4 H* (0.7-2.0) mmol/L Calcium (8.4-10.2) mg/dL Total Bilirubin (0.2-1.3) mg/dL AST (14-36) U/L ALT (4-34) U/L Alkaline Phosphatase (38-126) U/L Total Protein (6.3-8.2) g/dL Albumin (3.5-5.0) g/dL Lipase (23-300) U/L Urine Color Urine Appearance (Clear) Urine pH (5.0-8.0) Ur Specific [place] (1.001-1.035) Urine Protein (Negative) Urine Glucose (UA) (Negative) Urine Ketones (Negative) Urine Blood (Negative) Urine Nitrite (Negative) Urine Bilirubin (Negative) Urine Urobilinogen (<2.0) mg/dL Ur Leukocyte Esterase (Negative) - Radiology Data Radiology results: report reviewed, image reviewed CT abdomen and pelvis with contrast was obtained. Report reviewed in its entirety. Impression by Dr. Baig shows large subcutaneous mass with increased density consistent with hematoma on the anterior abdominal wall that is not changed in size to any extent compared to last exam. Some of this could be scar tissue. Normal appendix per no bowel instruction. No acute abnormality within the abdomen and pelvis. Disposition Clinical Impression: Abdominal pain Disposition: HOME SELF-CARE Condition: Good Instructions (If sedation given, give patient instructions): Abdominal Pain (ED) Additional Instructions: Follow up with Dr. Meadows on Sunday. Return to the emergency department for any new, worsening, or concerning symptoms. Is patient prescribed a controlled substance at d/c from ED?: No Referrals: Edgardo Inman MD [Primary Care Provider] - 1-2 days Time of Disposition: 01:27
[2020-12-17 23:51] LABS: Potassium 4.6 mmol/L (3.5-5.1)
--- NOTE | 2020-12-18 00:55 | CT ---
EXAMINATION TYPE: CT abdomen pelvis w con DATE OF EXAM: 12/18/2020 COMPARISON: 11/12/2020 HISTORY: left side Abdominal pain with N&V Hx of cholescystecomy, hernia repair, colon resection CT DLP: 2886.4 mGycm Automated exposure control for dose reduction was used. CONTRAST: Performed with IV Contrast, patient injected with 100 mL of Isovue 300. The lung bases are clear. There is no pleural effusion. Heart size is normal. There is no pericardial effusion. The liver spleen stomach pancreas appear intact. Bile ducts are nondilated. There are clips from chol ecystectomy. There is no adrenal mass. Kidneys show satisfactory contrast opacification. There is no hydronephrosi s. There is subcutaneous increased density over the anterior mid abdomen consistent with subcutaneous hematoma. This measures 3.5 cm in thickness and the width is 13 cm. There is no retroperitoneal marvin opathy. Delayed images show normal renal opacification and excretion. The appendix is normal. The hugo dder distends smoothly. There is no inguinal hernia. There is no free fluid in the pelvis. Uterus is anteverted. I see no pelvic mass. There are surgical clips at the sigmoid colon. There is no mesenteric edema. There is no ascites or free air. There is no evidence of a bowel obstru ction. The lumbar vertebra have fairly normal alignment. There is no compression fracture. The bony p guillermo appears intact. The hip joints are intact. There is no hip dysplasia. I see no bony destructive process. IMPRESSION: Large subcutaneous mass with increased density consistent with hematoma on the anterior abdominal wal l that is not changed in size to any extent compared to last exam. Some of this could be scar tissue. Normal appendix. No bowel obstruction. No acute abnormality within the abdomen and pelvis.
[2020-12-18] MEDS ORDERED: HYDROmorphone 1 MG/ML 1 ML SYRINGE IVP STA (01:26)
[2020-12-18 02:03] VITALS: BP 144/81; PULSE 70
== END 2020-12-18 02:52 | disposition home or self-care (01) ==
LOC: EC 22:17
DX: R10.12 Left upper quadrant pain (principal); R11.2 Nausea with vomiting, unspecified; J45.909 Unspecified asthma, uncomplicated; E11.9 Type 2 diabetes mellitus without complications; M79.7 Fibromyalgia; K21.9 Gastro-esophageal reflux disease without esophagitis; G47.30 Sleep apnea, unspecified; G43.909 Migraine, unspecified, not intractable, without status migrainosus; F41.9 Anxiety disorder, unspecified; F31.9 Bipolar disorder, unspecified; Z79.84 Long term (current) use of oral hypoglycemic drugs
CPT/HCPCS: 36415; 80053; 83605; 83690; 85025; 81003; 74177; 99284; 96374; 96375; 96376; 96361; J2405; J1170 ×2; Q9967

== ENCOUNTER 2020-12-19 17:51 | Emergency (ER) | payer OTHER ==
[2020-12-19 17:57] VITALS: TEMP 98.2
[2020-12-19] MEDS ORDERED: diphenhydrAMINE 50 MG/ML 1 ML VIAL IVP STA (18:32)
[2020-12-19] MEDS ORDERED: KETOROLAC 15 MG/ML 1 ML VIAL IVP STA (18:32)
[2020-12-19] MEDS ORDERED: SODIUM CHLORIDE 0.9% 1,000 ML IV STA (18:32)
[2020-12-19] MEDS ORDERED: METOCLOPRAMIDE 5 MG/ML 2 ML VIAL IVP STA (18:35)
--- NOTE | 2020-12-19 18:54 | ED ---
Headache HPI - General Chief Complaint: Headache Stated Complaint: migraine Time Seen by Provider: 12/19/20 18:00 Mode of arrival: EMS Limitations: no limitations - History of Present Illness Initial Comments: 35-year-old female with history of migraines presents emergency Department with a chief complaint of a migraine. Patient reports this one started about 3 days ago with gradual onset and not the worst headache of her life. States initially became one-sided but now she feels the headache throughout her whole head. States she attempted her home medications with no significant pruritus symptoms. Reports photosensitivity nausea and 1 episode of vomiting. Denies any one- sided weakness or paresthesias. States she has been in the emergency department multiple times for Similar headache. - Related Data Home Medications Medication Instructions Recorded Confirmed Levothyroxine Sodium [Synthroid] 50 mcg PO DAILY 05/05/14 12/08/20 traZODone HCL [Desyrel] 100 mg PO HS 04/04/15 12/08/20 Topiramate [Trokendi Xr] 200 mg PO DAILY 07/19/17 12/08/20 rOPINIRole HCL [Requip] 0.5 mg PO HS 01/23/19 12/08/20 Famotidine [Pepcid] 40 mg PO DAILY 07/28/19 12/08/20 Cetirizine HCl [Zyrtec] 10 mg PO DAILY 08/30/19 12/08/20 Pregabalin [Lyrica] 150 mg PO BID 08/30/19 12/08/20 Blisovi Fe 1.5-30 1 tab PO DAILY 04/21/20 12/08/20 Meloxicam 15 mg PO DAILY 06/28/20 12/08/20 HYDROcodone/APAP 7.5-325MG [[place] 1 tab PO TID PRN 08/10/20 12/08/20 7.5-325] ARIPiprazole [Abilify] 2 mg PO HS 09/14/20 12/08/20 Ondansetron Odt [Zofran Odt] 8 mg PO Q8HR PRN 09/14/20 12/08/20 Venlafaxine HCl [Effexor XR] 225 mg PO DAILY 09/14/20 12/08/20 Erenumab-Aooe [Aimovig 140 mg SQ Q30D 09/22/20 12/08/20 Autoinjector] Ergocalciferol [Vitamin D2 (1250 1,250 mcg PO GARCIA 09/22/20 12/08/20 Mcg = 80076 Iu)] Empagliflozin [Jardiance] 25 mg PO DAILY 11/12/20 12/08/20 Rizatriptan Odt [Maxalt Image Scientist] 10 mg PO DAILY PRN 11/12/20 12/08/20 metFORMIN HCL [Glucophage] 1,000 mg PO BID 11/12/20 12/08/20 Allergies Allergy/AdvReac Type Severity Reaction Status Date / Time codeine Allergy Hallucinati Verified 12/17/20 22:27 ons tramadol Allergy Hallucinati Verified 12/17/20 22:27 ons valacyclovir HCl AdvReac BLURRED Verified 12/17/20 22:27 [From Valtrex] VISION Review of Systems ROS Statement: Those systems with pertinent positive or pertinent negative responses have been documented in the HPI. ROS Other: All systems not noted in ROS Statement are negative. Past Medical History Past Medical History: Asthma, Diabetes Mellitus, Fibromyalgia, GERD/Reflux, Sleep Apnea/CPAP/BIPAP, Thyroid Disorder Additional Past Medical History / Comment(s): Migraines, DDD , IBS, NO CPAP used. HX PERFORATED DIVERTICULITIS, internal abd hematoma, seasonal allergies, History of Any Multi-Drug Resistant Organisms: None Reported Past Surgical History: Bowel Resection, Breast Surgery, Cholecystectomy, Hernia Repair Additional Past Surgical History / Comment(s): Rt Breast biopsy. bowel resection with Colostomy/ later colostomy Reversal, abdominal surgery to remove scar tissue. Past Anesthesia/Blood Transfusion Reactions: No Reported Reaction Past Psychological History: Anxiety, Bipolar, Depression Smoking Status: Never smoker Past Alcohol Use History: None Reported Past Drug Use History: None Reported - Past Family History Mother History Unknown: Yes Family Medical History: No Reported History Additional Family Medical History / Comment(s): . Brother(s) Family Medical History: Diabetes Mellitus Father Family Medical History: Unable to Obtain General Exam Limitations: no limitations General appearance: alert, in no apparent distress, obese Head exam: Present: atraumatic, normocephalic, normal inspection Eye exam: Present: normal appearance, PERRL, EOMI Pupils: Present: normal accommodation ENT exam: Present: normal exam, normal oropharynx, mucous membranes moist Neck exam: Present: normal inspection, full ROM. Absent: tenderness, lymphadenopathy, thyromegaly Respiratory exam: Present: normal lung sounds bilaterally. Absent: respiratory distress, wheezes Cardiovascular Exam: Present: regular rate, normal rhythm, normal heart sounds. Absent: systolic murmur, diastolic murmur Extremities exam: Present: normal inspection, full ROM, normal capillary refill. Absent: tenderness Back exam: Present: normal inspection, full ROM. Absent: tenderness, CVA tenderness (R), CVA tenderness (L) Neurological exam: Present: alert, oriented X3, CN II-XII intact, normal gait Psychiatric exam: Present: normal affect, normal mood Skin exam: Present: warm, dry, intact, normal color Course Vital Signs 12/19/20 12/19/20 17:53 20:55 Temperature 98.2 F 98.2 F Pulse Rate 82 79 Respiratory 20 16 Rate Blood Pressure 148/86 112/88 O2 Sat by Pulse 100 99 Oximetry Medical Decision Making - Medical Decision Making 35-year-old female with history of migraines presents emergency Department with chief complaint of migraine. No focal deficits. This feels that her typical migraine. Patient was given a migraine cocktail. On reevaluation, she reports a progressive symptoms. States she is comfortable to go home and will follow up with a neurologist. Case discussed with physician. Disposition Clinical Impression: Headache Disposition: ADMITTED IP TO THIS [facility] Condition: Stable Instructions (If sedation given, give patient instructions): Acute Headache (ED) Additional Instructions: Please return to the Emergency Department if symptoms worsen or any other concerns. Is patient prescribed a controlled substance at d/c from ED?: No Referrals: Edgardo Inman MD [Primary Care Provider] - 1-2 days Time of Disposition: 20:01
[2020-12-19 20:59] VITALS: BP 112/88; PULSE 79; RESP 16
== END 2020-12-19 20:55 | disposition other institution (70) ==
LOC: EC 17:51
DX: R51.9 Headache, unspecified (principal); J45.909 Unspecified asthma, uncomplicated; E11.9 Type 2 diabetes mellitus without complications; K21.9 Gastro-esophageal reflux disease without esophagitis; F32.9 Major depressive disorder, single episode, unspecified; F41.9 Anxiety disorder, unspecified; E07.9 Disorder of thyroid, unspecified; Z88.6 Allergy status to analgesic agent; Z90.49 Acquired absence of other specified parts of digestive tract; Z79.84 Long term (current) use of oral hypoglycemic drugs
CPT/HCPCS: 99284; 96374; 96375 ×2; 96361; J1200; J2765; J1885

== ENCOUNTER 2020-12-31 17:14 | Emergency (ER) | payer OTHER ==
[2020-12-31] MEDS ORDERED: ONDANSETRON 4 MG/2 ML VIAL IVP STA (20:02)
[2020-12-31] MEDS ORDERED: HYDROmorphone 1 MG/ML 1 ML SYRINGE IVP STA ×2 (20:02→22:32)
[2020-12-31] MEDS ORDERED: SODIUM CHLORIDE 0.9% 1,000 ML IV STA (20:02)
--- NOTE | 2020-12-31 20:03 | ED ---
Abdominal Pain HPI - General Chief Complaint: Abdominal Pain Stated Complaint: Abdominal Pain Time Seen by Provider: 12/31/20 19:38 Source: patient, RN notes reviewed Mode of arrival: ambulatory Limitations: no limitations - History of Present Illness Initial Comments: Patient is a 35-year-old female that presents to the emergency department complaining of lower abdominal pain. She notes that she recently had abdominal surgery to remove adhesions. She notes that she did promise a fluid-filled sac that did cause some discomfort. She reported that her surgeon is told her to come emergency room if she cannot get in the office to get repeat scans. She did appear to be in moderate pain and distress she said was constant if she moved repressed on it he came sharp. She denied any other issues or complaints. She noted that she was mildly nauseous. She denied any chest pain short of breath headache vomiting diarrhea constipation fever fatigue chills. - Related Data Home Medications Medication Instructions Recorded Confirmed Levothyroxine Sodium [Synthroid] 50 mcg PO DAILY 05/05/14 12/08/20 traZODone HCL [Desyrel] 100 mg PO HS 04/04/15 12/08/20 Topiramate [Trokendi Xr] 200 mg PO DAILY 07/19/17 12/08/20 rOPINIRole HCL [Requip] 0.5 mg PO HS 01/23/19 12/08/20 Famotidine [Pepcid] 40 mg PO DAILY 07/28/19 12/08/20 Cetirizine HCl [Zyrtec] 10 mg PO DAILY 08/30/19 12/08/20 Pregabalin [Lyrica] 150 mg PO BID 08/30/19 12/08/20 Blisovi Fe 1.5-30 1 tab PO DAILY 04/21/20 12/08/20 Meloxicam 15 mg PO DAILY 06/28/20 12/08/20 HYDROcodone/APAP 7.5-325MG [[place] 1 tab PO TID PRN 08/10/20 12/08/20 7.5-325] ARIPiprazole [Abilify] 2 mg PO HS 09/14/20 12/08/20 Ondansetron Odt [Zofran Odt] 8 mg PO Q8HR PRN 09/14/20 12/08/20 Venlafaxine HCl [Effexor XR] 225 mg PO DAILY 09/14/20 12/08/20 Erenumab-Aooe [Aimovig 140 mg SQ Q30D 09/22/20 12/08/20 Autoinjector] Ergocalciferol [Vitamin D2 (1250 1,250 mcg PO GARCIA 09/22/20 12/08/20 Mcg = 78155 Iu)] Empagliflozin [Jardiance] 25 mg PO DAILY 11/12/20 12/08/20 Rizatriptan Odt [Maxalt Pneumatic Hoist Operator] 10 mg PO DAILY PRN 11/12/20 12/08/20 metFORMIN HCL [Glucophage] 1,000 mg PO BID 11/12/20 12/08/20 Allergies Allergy/AdvReac Type Severity Reaction Status Date / Time codeine Allergy Hallucinati Verified 12/31/20 17:59 ons tramadol Allergy Hallucinati Verified 12/31/20 17:59 ons valacyclovir HCl AdvReac BLURRED Verified 12/31/20 17:59 [From Valtrex] VISION Review of Systems ROS Statement: Those systems with pertinent positive or pertinent negative responses have been documented in the HPI. ROS Other: All systems not noted in ROS Statement are negative. Past Medical History Past Medical History: Asthma, Diabetes Mellitus, Fibromyalgia, GERD/Reflux, Sleep Apnea/CPAP/BIPAP, Thyroid Disorder Additional Past Medical History / Comment(s): Migraines, DDD , IBS, NO CPAP used. HX PERFORATED DIVERTICULITIS, internal abd hematoma, seasonal allergies, History of Any Multi-Drug Resistant Organisms: None Reported Past Surgical History: Bowel Resection, Breast Surgery, Cholecystectomy, Hernia Repair Additional Past Surgical History / Comment(s): Rt Breast biopsy. bowel resection with Colostomy/ later colostomy Reversal, abdominal surgery to remove scar tissue. Past Anesthesia/Blood Transfusion Reactions: No Reported Reaction Past Psychological History: Anxiety, Bipolar, Depression Smoking Status: Never smoker Past Alcohol Use History: None Reported Past Drug Use History: None Reported - Past Family History Mother History Unknown: Yes Family Medical History: No Reported History Additional Family Medical History / Comment(s): . Brother(s) Family Medical History: Diabetes Mellitus Father Family Medical History: Unable to Obtain General Exam Limitations: no limitations General appearance: alert, in no apparent distress, obese (Morbidly) Head exam: Present: atraumatic, normocephalic, normal inspection Eye exam: Present: normal appearance, PERRL, EOMI. Absent: scleral icterus, conjunctival injection, periorbital swelling Neck exam: Present: normal inspection Respiratory exam: Present: normal lung sounds bilaterally. Absent: respiratory distress, wheezes, rales, rhonchi, stridor Cardiovascular Exam: Present: regular rate, normal rhythm, normal heart sounds. Absent: systolic murmur, diastolic murmur, rubs, gallop, clicks GI/Abdominal exam: Present: soft, tenderness (Lower abdomen to minimal palpation), normal bowel sounds. Absent: distended, guarding, rebound, rigid Extremities exam: Present: normal inspection, full ROM, normal capillary refill. Absent: tenderness, pedal edema, joint swelling, calf tenderness Neurological exam: Present: alert, oriented X3 Psychiatric exam: Present: normal affect, normal mood Skin exam: Present: warm, dry, intact, normal color. Absent: rash Course Vital Signs 12/31/20 17:57 Temperature 98.7 F Pulse Rate 77 Respiratory 20 Rate Blood Pressure 118/71 O2 Sat by Pulse 100 Oximetry Medical Decision Making - Medical Decision Making 35-year-old female complaining of lower abdominal pain that she says is most likely postsurgical. Labs, computed tomography scan of the abdomen pelvis, 1 L normal saline, 1 mg of Dilaudid, 4 mg Zofran ordered. Labs:White blood cells 10.9, rest labs unremarkable. Computed tomography scan negative for any acute process. Ultrasound shows a simple right ovarian cyst. Case discussed with Dr. Gordillo, patient discharge home with follow-up to specialist. - Lab Data Result diagrams: 12/31/20 20:41 12/31/20 20:41 Lab Results 12/31/20 12/31/20 12/31/20 Range/Units 20:41 20:41 20:41 WBC 10.9 H (3.8-10.6) k/uL RBC 4.84 (3.80-5.40) m/uL Hgb 12.0 (11.4-16.0) gm/dL Hct 38.9 (34.0-46.0) % MCV 80.4 (80.0-100.0) fL MCH 24.9 L (25.0-35.0) pg MCHC 31.0 (31.0-37.0) g/dL RDW 16.3 H (11.5-15.5) % Plt Count 362 (150-450) k/uL MPV 7.2 Neutrophils % 65 % Lymphocytes % 26 % Monocytes % 5 % Eosinophils % 2 % Basophils % 1 % Neutrophils # 7.1 (1.3-7.7) k/uL Lymphocytes # 2.8 (1.0-4.8) k/uL Monocytes # 0.6 (0-1.0) k/uL Eosinophils # 0.2 (0-0.7) k/uL Basophils # 0.1 (0-0.2) k/uL Hypochromasia Moderate Anisocytosis Slight Sodium 138 (137-145) mmol/L Potassium 4.4 (3.5-5.1) mmol/L Chloride 106 (98-107) mmol/L Carbon Dioxide 23 (22-30) mmol/L Anion Gap 9 mmol/L BUN 19 H (7-17) mg/dL Creatinine 0.84 (0.52-1.04) mg/dL Est GFR (CKD-EPI)AfAm >90 (>60 ml/min/1.73 sqM) Est GFR (CKD-EPI)NonAf 89 (>60 ml/min/1.73 sqM) Glucose 121 H (74-99) mg/dL Calcium 9.3 (8.4-10.2) mg/dL Total Bilirubin 0.1 L (0.2-1.3) mg/dL AST 28 (14-36) U/L ALT 37 H (4-34) U/L Alkaline Phosphatase 85 (38-126) U/L Total Protein 6.7 (6.3-8.2) g/dL Albumin 3.9 (3.5-5.0) g/dL Amylase 78 (30-110) U/L Lipase 229 (23-300) U/L Urine Color Yellow Urine Appearance Clear (Clear) Urine pH 6.5 (5.0-8.0) Ur Specific [place] 1.025 (1.001-1.035) Urine Protein Trace H (Negative) Urine Glucose (UA) 4+ H (Negative) Urine Ketones Negative (Negative) Urine Blood Negative (Negative) Urine Nitrite Negative (Negative) Urine Bilirubin Negative (Negative) Urine Urobilinogen <2.0 (<2.0) mg/dL Ur Leukocyte Esterase Negative (Negative) - Radiology Data Radiology results: report reviewed, image reviewed CT of the abdomen and pelvis: Normal appendix. Subcutaneous density over the anterior abdominal wall consistent with scar tissue and not changed compared to recent exam. No acute abnormality within the abdomen and pelvis. Transvaginal ultrasound: There is simple right ovarian cyst. No solid adnexal mass. No evidence of ovarian torsion. Normal uterus. Disposition Clinical Impression: Abdominal pain, Right ovarian cyst Disposition: HOME SELF-CARE Condition: Stable Instructions (If sedation given, give patient instructions): Abdominal Pain (ED) Additional Instructions: Please return to the Emergency Department if symptoms worsen or any other concerns. Follow-up with primary care in 1-2 days. Take, Motrin as needed for pain. Is patient prescribed a controlled substance at d/c from ED?: No Referrals: Edgardo Inman MD [Primary Care Provider] - 1-2 days Time of Disposition: 23:25
[2020-12-31 20:50] LABS: Appearance,Urine Clear (Clear); Bilirubin,Urine Negative (Negative); Blood,Urine Negative (Negative); Color,Urine Yellow; Glucose,Urine (UA) 4+ (Negative); Ketones,Urine Negative (Negative); Leukocyte Esterase,Urine Negative (Negative); Nitrite,Urine Negative (Negative); PH, Urine 6.5 (5.0-8.0); Protein,Urine Trace (Negative); Specific Gravity,Urine 1.025 (1.001-1.035); Urobilinogen,Urine <2.0 mg/dL (<2.0)
[2020-12-31 20:51] LABS: Anisocytosis Slight; Basophils # (A) 0.1 k/uL (0-0.2); Basophils % (A) 1 %; Eosinophils # (A) 0.2 k/uL (0-0.7); Eosinophils % (A) 2 %; HCT 38.9 % (34.0-46.0); Hypochromasia Moderate; Lymphocytes # (A) 2.8 k/uL (1.0-4.8); Lymphocytes % (A) 26 %; MCH 24.9 pg (25.0-35.0); MCV 80.4 fL (80.0-100.0); Mean Platelet Volume 7.2; Monocytes # (A) 0.6 k/uL (0-1.0); Monocytes % (A) 5 %; Neutrophils # (A) 7.1 k/uL (1.3-7.7); Neutrophils % (A) 65 %; Platelet Count 362 k/uL (150-450); RBC 4.84 m/uL (3.80-5.40); RDW 16.3 % (11.5-15.5); WBC 10.9 k/uL (3.8-10.6)
[2020-12-31 21:05] LABS: ALT 37 U/L (4-34); AST 28 U/L (14-36); African American GFR (CKD) >90 (>60 ml/min/1.73 sqM); Albumin 3.9 g/dL (3.5-5.0); Alkaline Phosphatase 85 U/L (38-126); Amylase 78 U/L (30-110); Anion Gap 9 mmol/L; Blood Urea Nitrogen 19 mg/dL (7-17); Calcium 9.3 mg/dL (8.4-10.2); Carbon Dioxide 23 mmol/L (22-30); Chloride 106 mmol/L (98-107); Glucose 121 mg/dL (74-99); Lipase 229 U/L (23-300); Non-African American GFR(CKD) 89 (>60 ml/min/1.73 sqM); Potassium 4.4 mmol/L (3.5-5.1); Sodium 138 mmol/L (137-145); Total Bilirubin 0.1 mg/dL (0.2-1.3); Total Protein 6.7 g/dL (6.3-8.2)
--- NOTE | 2020-12-31 21:53 | CT ---
EXAMINATION TYPE: CT abdomen pelvis w con DATE OF EXAM: 12/31/2020 COMPARISON: 12/18/2020 HISTORY: Abdominal pain CT DLP: 2760.2 mGycm Automated exposure control for dose reduction was used. CONTRAST: Performed with IV Contrast, patient injected with 100 mL of Isovue 300. Exam from the diaphragm to the floor the pelvis with IV contrast. Lung bases are clear. There is no pleural effusion. Heart size is normal. There is no pericardial eff usion. Liver spleen stomach pancreas appear intact. The bile ducts are not dilated. There are clips f rom cholecystectomy. There is no adrenal mass. Kidneys show satisfactory contrast opacification. There is no hydronephrosi s. Ureters are not dilated. There is no retroperitoneal adenopathy. Appendix is posterior and appears normal. There is soft tissue density in the subcutaneous tissues over the anterior abdominal wall. T his measures up to 3 cm in thickness. Bladder distends smoothly. There is no inguinal hernia. There is no free fluid in the pelvis. There i s no evidence of a pelvic mass. There is no mesenteric edema. There is no ascites or free air. There is no bowel obstruction. The lumbar vertebra have normal alignment. Posterior elements are intact. There is no compression fra cture. Bony pelvis is intact. Hip joints are intact. IMPRESSION: Normal appendix. Subcutaneous density over the anterior abdominal wall consistent with scar tissue an d not changed compared to recent exam. No acute abnormality within the abdomen pelvis.
--- NOTE | 2020-12-31 23:20 | US ---
EXAMINATION TYPE: US transvaginal DATE OF EXAM: 12/31/2020 COMPARISON: CLINICAL HISTORY: rule out torsion. LLQ pain. TECHNIQUE: Transvaginal (TV) Date of LMP: 12/25/2020, G0 EXAM MEASUREMENTS: Uterus: 5.6 x 3.4 x 2.4 cm Endometrial Stripe: 0.5 cm Right Ovary: 3.7 x 2.6 x 2.3 cm Left Ovary: 2.8 x 1.6 x 1.9 cm 1. Uterus: Anteverted Appears small in size, slightly heterogenous 2. Endometrium: wnl 3. Right Ovary: simple cyst vs dominant follicle = 2.4 x 1.9 x 1.8 cm 4. Left Ovary: follicles seen Spectral, color and waveform doppler imaging shows good arterial and venous flow within the ovaries ; there is no evidence for ovarian torsion. 5. Bilateral Adnexa: wnl 6. Posterior cul-de-sac: no free fluid IMPRESSION: There is simple right ovarian cyst. No solid adnexal mass. No evidence of ovarian torsion. Normal jose arnold.
[2021-01-01 00:03] VITALS: BP 126/78; PULSE 76; RESP 18; TEMP 98.2
== END 2021-01-01 00:02 | disposition home or self-care (01) ==
LOC: EC 17:14
DX: N83.201 Unspecified ovarian cyst, right side (principal); E11.9 Type 2 diabetes mellitus without complications; K21.9 Gastro-esophageal reflux disease without esophagitis; J45.909 Unspecified asthma, uncomplicated; E07.9 Disorder of thyroid, unspecified; F41.9 Anxiety disorder, unspecified; F31.9 Bipolar disorder, unspecified; Z88.5 Allergy status to narcotic agent; Z88.1 Allergy status to other antibiotic agents; Z79.84 Long term (current) use of oral hypoglycemic drugs; Z90.49 Acquired absence of other specified parts of digestive tract
CPT/HCPCS: 99284; 96374; 96375; 96376; 96361; 36415; 80053; 82150; 83690; 85025; 81003; 93975; 76830; 74177; J2405; J1170; Q9967

== ENCOUNTER 2021-01-10 20:46 | Emergency (ER) | payer OTHER ==
[2021-01-10 21:12] VITALS: TEMP 98.3
[2021-01-10] MEDS ORDERED: MORPHINE SULFATE 4 MG/ML SYRINGE IV STA (22:36)
--- NOTE | 2021-01-10 22:50 | ED ---
Abdominal Pain HPI - General Chief Complaint: Abdominal Pain Stated Complaint: stomach pain Time Seen by Provider: 01/10/21 22:24 Source: patient Mode of arrival: ambulatory Limitations: no limitations - History of Present Illness Initial Comments: This patient is a 35-year-old woman who presents for evaluation of left upper quadrant pain that started around 8 PM tonight. Patient denies any injury. States she was at rest at the time. She has had this previously and states she was told by her physician to come to the emergency department immediately if it recurs. Patient denies fever or chills. No vomiting. No change in urination or bowel movements. Last menstrual period 2 weeks ago and somewhat lightheaded but states that it has been since she has been on control. MD Complaint: abdominal pain Onset/Timin -: hour(s) Location: LUQ Radiation: none Severity: severe Quality: sharp Consistency: intermittent Improves With: nothing Worsens With: nothing Associated Symptoms: denies other symptoms - Related Data LMP (females 10-50): last week Home Medications Medication Instructions Recorded Confirmed Levothyroxine Sodium [Synthroid] 50 mcg PO DAILY 05/05/14 12/08/20 traZODone HCL [Desyrel] 100 mg PO HS 04/04/15 12/08/20 Topiramate [Trokendi Xr] 200 mg PO DAILY 07/19/17 12/08/20 rOPINIRole HCL [Requip] 0.5 mg PO HS 01/23/19 12/08/20 Famotidine [Pepcid] 40 mg PO DAILY 07/28/19 12/08/20 Cetirizine HCl [Zyrtec] 10 mg PO DAILY 08/30/19 12/08/20 Pregabalin [Lyrica] 150 mg PO BID 08/30/19 12/08/20 Blisovi Fe 1.5-30 1 tab PO DAILY 04/21/20 12/08/20 Meloxicam 15 mg PO DAILY 06/28/20 12/08/20 HYDROcodone/APAP 7.5-325MG [[place] 1 tab PO TID PRN 08/10/20 12/08/20 7.5-325] ARIPiprazole [Abilify] 2 mg PO HS 09/14/20 12/08/20 Ondansetron Odt [Zofran Odt] 8 mg PO Q8HR PRN 09/14/20 12/08/20 Venlafaxine HCl [Effexor XR] 225 mg PO DAILY 09/14/20 12/08/20 Erenumab-Aooe [Aimovig 140 mg SQ Q30D 09/22/20 12/08/20 Autoinjector] Ergocalciferol [Vitamin D2 (1250 1,250 mcg PO GARCIA 09/22/20 12/08/20 Mcg = 81676 Iu)] Empagliflozin [Jardiance] 25 mg PO DAILY 11/12/20 12/08/20 Rizatriptan Odt [Maxalt [employer]] 10 mg PO DAILY PRN 11/12/20 12/08/20 metFORMIN HCL [Glucophage] 1,000 mg PO BID 11/12/20 12/08/20 Allergies Allergy/AdvReac Type Severity Reaction Status Date / Time codeine Allergy Hallucinati Verified 01/10/21 21:10 ons tramadol Allergy Hallucinati Verified 01/10/21 21:10 ons valacyclovir HCl AdvReac BLURRED Verified 01/10/21 21:10 [From Valtrex] VISION Review of Systems ROS Statement: Those systems with pertinent positive or pertinent negative responses have been documented in the HPI. ROS Other: All systems not noted in ROS Statement are negative. Constitutional: Denies: fever, chills Respiratory: Denies: cough, dyspnea Cardiovascular: Denies: chest pain, palpitations, edema, syncope Gastrointestinal: Reports: abdominal pain, nausea. Denies: vomiting, diarrhea, constipation, melena, hematochezia Genitourinary: Denies: dysuria, frequency, hematuria, discharge, abnormal menses Musculoskeletal: Denies: back pain Skin: Denies: rash Neurological: Denies: headache Past Medical History Past Medical History: Asthma, Diabetes Mellitus, Fibromyalgia, GERD/Reflux, Sleep Apnea/CPAP/BIPAP, Thyroid Disorder Additional Past Medical History / Comment(s): Migraines, DDD , IBS, NO CPAP used. HX PERFORATED DIVERTICULITIS, internal abd hematoma, seasonal allergies, History of Any Multi-Drug Resistant Organisms: None Reported Past Surgical History: Bowel Resection, Breast Surgery, Cholecystectomy, Hernia Repair Additional Past Surgical History / Comment(s): Rt Breast biopsy. bowel resection with Colostomy/ later colostomy Reversal, abdominal surgery to remove scar tissue. Past Anesthesia/Blood Transfusion Reactions: No Reported Reaction Past Psychological History: Anxiety, Bipolar, Depression Smoking Status: Never smoker Past Alcohol Use History: None Reported Past Drug Use History: None Reported - Past Family History Mother History Unknown: Yes Family Medical History: No Reported History Additional Family Medical History / Comment(s): . Brother(s) Family Medical History: Diabetes Mellitus Father Family Medical History: Unable to Obtain General Exam Limitations: no limitations General appearance: alert, in no apparent distress Head exam: Present: atraumatic, normocephalic Eye exam: Present: normal appearance. Absent: scleral icterus, conjunctival injection ENT exam: Present: normal oropharynx Neck exam: Present: normal inspection Respiratory exam: Present: normal lung sounds bilaterally. Absent: respiratory distress, wheezes, rales, rhonchi, stridor Cardiovascular Exam: Present: regular rate, normal rhythm, normal heart sounds. Absent: systolic murmur, diastolic murmur, rubs, gallop GI/Abdominal exam: Present: soft, tenderness, normal bowel sounds. Absent: distended, guarding, rebound, rigid, mass, pulsatile mass, hernia Extremities exam: Present: normal inspection, normal capillary refill. Absent: pedal edema, calf tenderness Back exam: Present: normal inspection. Absent: CVA tenderness (R), CVA tenderness (L) Neurological exam: Present: alert Skin exam: Present: warm, dry, intact, normal color. Absent: rash Course Vital Signs 01/10/21 21:10 Temperature 98.3 F Pulse Rate 76 Respiratory 18 Rate Blood Pressure 136/78 O2 Sat by Pulse 100 Oximetry Medical Decision Making - Lab Data Result diagrams: 01/10/21 23:05 01/10/21 23:05 Lab Results 01/10/21 01/10/21 01/10/21 Range/Units 22:39 22:39 23:05 WBC 10.1 (3.8-10.6) k/uL RBC 4.63 (3.80-5.40) m/uL Hgb 11.6 (11.4-16.0) gm/dL Hct 37.7 (34.0-46.0) % MCV 81.5 (80.0-100.0) fL MCH 25.0 (25.0-35.0) pg MCHC 30.7 L (31.0-37.0) g/dL RDW 16.6 H (11.5-15.5) % Plt Count 318 (150-450) k/uL MPV 7.7 Neutrophils % 67 % Lymphocytes % 24 % Monocytes % 4 % Eosinophils % 2 % Basophils % 1 % Neutrophils # 6.7 (1.3-7.7) k/uL Lymphocytes # 2.5 (1.0-4.8) k/uL Monocytes # 0.5 (0-1.0) k/uL Eosinophils # 0.2 (0-0.7) k/uL Basophils # 0.1 (0-0.2) k/uL Hypochromasia Moderate Anisocytosis Slight Sodium (137-145) mmol/L Potassium (3.5-5.1) mmol/L Chloride (98-107) mmol/L Carbon Dioxide (22-30) mmol/L Anion Gap mmol/L BUN (7-17) mg/dL Creatinine (0.52-1.04) mg/dL Est GFR (CKD-EPI)AfAm (>60 ml/min/1.73 sqM) Est GFR (CKD-EPI)NonAf (>60 ml/min/1.73 sqM) Glucose (74-99) mg/dL Calcium (8.4-10.2) mg/dL Total Bilirubin (0.2-1.3) mg/dL AST (14-36) U/L ALT (4-34) U/L Alkaline Phosphatase (38-126) U/L Total Protein (6.3-8.2) g/dL Albumin (3.5-5.0) g/dL Amylase (30-110) U/L Lipase (23-300) U/L Urine Color Yellow Urine Appearance Turbid H (Clear) Urine pH 7.0 (5.0-8.0) Ur Specific [place] 1.023 (1.001-1.035) Urine Protein Negative (Negative) Urine Glucose (UA) Negative (Negative) Urine Ketones Negative (Negative) Urine Blood Negative (Negative) Urine Nitrite Negative (Negative) Urine Bilirubin Negative (Negative) Urine Urobilinogen 2.0 (<2.0) mg/dL Ur Leukocyte Esterase Trace H (Negative) Urine WBC 4 (0-5) /hpf Ur Squamous Epith Cells 1 (0-4) /hpf Amorphous Sediment Moderate H (None) /hpf Urine Bacteria Occasional H (None) /hpf Urine Mucus Rare H (None) /hpf Urine HCG, Qual Not Detected (Not Detectd) 01/10/21 Range/Units 23:05 WBC (3.8-10.6) k/uL RBC (3.80-5.40) m/uL Hgb (11.4-16.0) gm/dL Hct (34.0-46.0) % MCV (80.0-100.0) fL MCH (25.0-35.0) pg MCHC (31.0-37.0) g/dL RDW (11.5-15.5) % Plt Count (150-450) k/uL MPV Neutrophils % % Lymphocytes % % Monocytes % % Eosinophils % % Basophils % % Neutrophils # (1.3-7.7) k/uL Lymphocytes # (1.0-4.8) k/uL Monocytes # (0-1.0) k/uL Eosinophils # (0-0.7) k/uL Basophils # (0-0.2) k/uL Hypochromasia Anisocytosis Sodium 139 (137-145) mmol/L Potassium 4.3 (3.5-5.1) mmol/L Chloride 111 H (98-107) mmol/L Carbon Dioxide 22 (22-30) mmol/L Anion Gap 6 mmol/L BUN 18 H (7-17) mg/dL Creatinine 0.85 (0.52-1.04) mg/dL Est GFR (CKD-EPI)AfAm >90 (>60 ml/min/1.73 sqM) Est GFR (CKD-EPI)NonAf 88 (>60 ml/min/1.73 sqM) Glucose 109 H (74-99) mg/dL Calcium 9.4 (8.4-10.2) mg/dL Total Bilirubin 0.2 (0.2-1.3) mg/dL AST 31 (14-36) U/L ALT 26 (4-34) U/L Alkaline Phosphatase 79 (38-126) U/L Total Protein 6.7 (6.3-8.2) g/dL Albumin 3.8 (3.5-5.0) g/dL Amylase 80 (30-110) U/L Lipase 247 (23-300) U/L Urine Color Urine Appearance (Clear) Urine pH (5.0-8.0) Ur Specific [place] (1.001-1.035) Urine Protein (Negative) Urine Glucose (UA) (Negative) Urine Ketones (Negative) Urine Blood (Negative) Urine Nitrite (Negative) Urine Bilirubin (Negative) Urine Urobilinogen (<2.0) mg/dL Ur Leukocyte Esterase (Negative) Urine WBC (0-5) /hpf Ur Squamous Epith Cells (0-4) /hpf Amorphous Sediment (None) /hpf Urine Bacteria (None) /hpf Urine Mucus (None) /hpf Urine HCG, Qual (Not Detectd) Disposition Clinical Impression: Abdominal pain Disposition: HOME SELF-CARE Condition: Good Instructions (If sedation given, give patient instructions): Abdominal Pain (ED) Is patient prescribed a controlled substance at d/c from ED?: No Referrals: Edgardo Inman MD [Primary Care Provider] - 1-2 days
[2021-01-10 23:10] LABS: Anisocytosis Slight; Basophils # (A) 0.1 k/uL (0-0.2); Basophils % (A) 1 %; Eosinophils # (A) 0.2 k/uL (0-0.7); Eosinophils % (A) 2 %; HCT 37.7 % (34.0-46.0); HGB 11.6 gm/dL (11.4-16.0); Hypochromasia Moderate; Lymphocytes # (A) 2.5 k/uL (1.0-4.8); Lymphocytes % (A) 24 %; MCHC 30.7 g/dL (31.0-37.0); MCV 81.5 fL (80.0-100.0); Mean Platelet Volume 7.7; Monocytes # (A) 0.5 k/uL (0-1.0); Monocytes % (A) 4 %; Neutrophils # (A) 6.7 k/uL (1.3-7.7); Neutrophils % (A) 67 %; Platelet Count 318 k/uL (150-450); RBC 4.63 m/uL (3.80-5.40); RDW 16.6 % (11.5-15.5); WBC 10.1 k/uL (3.8-10.6)
[2021-01-10 23:24] LABS: Amorphous Sediment,Urine Moderate /hpf; Appearance,Urine Turbid (Clear); Bacteria,Urine Occasional /hpf; Bilirubin,Urine Negative (Negative); Blood,Urine Negative (Negative); Color,Urine Yellow; Glucose,Urine (UA) Negative (Negative); Ketones,Urine Negative (Negative); Leukocyte Esterase,Urine Trace (Negative); Mucus,Urine Rare /hpf; Nitrite,Urine Negative (Negative); Protein,Urine Negative (Negative); Specific Gravity,Urine 1.023 (1.001-1.035); Squamous Epithelial Cell,Urine 1 /hpf (0-4); WBC,Urine 4 /hpf (0-5)
[2021-01-10 23:27] LABS: ALT 26 U/L (4-34); AST 31 U/L (14-36); African American GFR (CKD) >90 (>60 ml/min/1.73 sqM); Albumin 3.8 g/dL (3.5-5.0); Alkaline Phosphatase 79 U/L (38-126); Amylase 80 U/L (30-110); Anion Gap 6 mmol/L; Blood Urea Nitrogen 18 mg/dL (7-17); Calcium 9.4 mg/dL (8.4-10.2); Carbon Dioxide 22 mmol/L (22-30); Chloride 111 mmol/L (98-107); Glucose 109 mg/dL (74-99); Lipase 247 U/L (23-300); Non-African American GFR(CKD) 88 (>60 ml/min/1.73 sqM); Potassium 4.3 mmol/L (3.5-5.1); Sodium 139 mmol/L (137-145); Total Bilirubin 0.2 mg/dL (0.2-1.3); Total Protein 6.7 g/dL (6.3-8.2)
[2021-01-11] MEDS ORDERED: IOPAMIDOL CONTRAST (ORAL USE) VIAL PO PRN (00:41)
--- NOTE | 2021-01-11 01:18 | CT ---
EXAMINATION TYPE: CT abdomen pelvis wo con DATE OF EXAM: 01/11/2021 COMPARISON: 12/31/2020 HISTORY: LUQ PAIN CT DLP: 2115 mGycm Automated exposure control for dose reduction was used. Exam without contrast. Lung bases are clear of infiltrate. There is no pleural effusion. Heart size is normal. There is no p ericardial effusion. Liver spleen stomach pancreas appear intact. The bile ducts are not dilated. There are clips from cho lecystectomy. There is no adrenal mass. Kidneys have normal size and contour. There is no hydronephrosis. Ureters a re not dilated. There is no retroperitoneal adenopathy. Appendix appears normal and is posterior. The re is fat stranding and thickening at the anterior abdominal wall that measures 14 x 4 cm. This has r elatively high attenuation and also present on previous exam. This could be a combination of hematoma and scar tissue. There is no mesenteric edema. There is no ascites or free air. There is no bowel obstruction. Bladder distends smoothly. There is no evidence of pelvic mass. There is no inguinal hernia. Uterus appears normal. Lumbar vertebra have normal alignment. Posterior elements are intact. There is no compression fractur e. The bony pelvis is intact. The hip joints are intact. IMPRESSION: There is chronic thickening of the anterior abdominal wall not changed compared to recent exam. No ac jose abnormality within the abdomen pelvis. Normal appendix.
[2021-01-11 02:28] VITALS: BP 122/77; PULSE 77; RESP 16
== END 2021-01-11 02:28 | disposition home or self-care (01) ==
LOC: EC 20:46
DX: R10.12 Left upper quadrant pain (principal); J45.909 Unspecified asthma, uncomplicated; E11.9 Type 2 diabetes mellitus without complications; K21.9 Gastro-esophageal reflux disease without esophagitis; E07.9 Disorder of thyroid, unspecified; Z90.49 Acquired absence of other specified parts of digestive tract; F41.9 Anxiety disorder, unspecified; F31.9 Bipolar disorder, unspecified; Z79.84 Long term (current) use of oral hypoglycemic drugs; Z88.5 Allergy status to narcotic agent; Z88.1 Allergy status to other antibiotic agents
CPT/HCPCS: 99284; 96374; 36415; 80053; 82150; 83690; 85025; 81001; 81025; J2270; 74176

== ENCOUNTER 2021-01-17 06:47 | Emergency (ER) | payer OTHER ==
[2021-01-17 06:54] VITALS: TEMP 98.4
[2021-01-17] MEDS ORDERED: KETOROLAC 15 MG/ML 1 ML VIAL IVP STA (07:23)
[2021-01-17] MEDS ORDERED: SODIUM CHLORIDE 0.9% 1,000 ML IV STA (07:23)
--- NOTE | 2021-01-17 07:26 | ED ---
General Adult HPI - General Chief complaint: Abdominal Pain Stated complaint: abd pain Time Seen by Provider: 01/17/21 06:58 Source: patient Mode of arrival: ambulatory Limitations: no limitations - History of Present Illness Initial comments: 35-year-old female relatively well known to this emergency room presents for left upper abdominal pain. Patient has had this pain several times in the past. Patient states that this time she woke up from sleep with the pain which made her nervous so she presented to the emergency room. Pain is located in the LUQ. Denies radiating pain. Denies nausea vomiting. Denies diarrhea. Denies fevers. Patient states it hurts worse with movement. Patient has no other complaints at this time including shortness of breath, chest pain, nausea or vomiting, headache, or visual changes. - Related Data Home Medications Medication Instructions Recorded Confirmed Levothyroxine Sodium [Synthroid] 50 mcg PO DAILY 05/05/14 12/08/20 traZODone HCL [Desyrel] 100 mg PO HS 04/04/15 12/08/20 Topiramate [Trokendi Xr] 200 mg PO DAILY 07/19/17 12/08/20 rOPINIRole HCL [Requip] 0.5 mg PO HS 01/23/19 12/08/20 Famotidine [Pepcid] 40 mg PO DAILY 07/28/19 12/08/20 Cetirizine HCl [Zyrtec] 10 mg PO DAILY 08/30/19 12/08/20 Pregabalin [Lyrica] 150 mg PO BID 08/30/19 12/08/20 [place] Fe 1.5-30 1 tab PO DAILY 04/21/20 12/08/20 Meloxicam 15 mg PO DAILY 06/28/20 12/08/20 HYDROcodone/APAP 7.5-325MG [[place] 1 tab PO TID PRN 08/10/20 12/08/20 7.5-325] ARIPiprazole [Abilify] 2 mg PO HS 09/14/20 12/08/20 Ondansetron Odt [Zofran Odt] 8 mg PO Q8HR PRN 09/14/20 12/08/20 Venlafaxine HCl [Effexor XR] 225 mg PO DAILY 09/14/20 12/08/20 Erenumab-Aooe [Aimovig 140 mg SQ Q30D 09/22/20 12/08/20 Autoinjector] Ergocalciferol [Vitamin D2 (1250 1,250 mcg PO GARCIA 09/22/20 12/08/20 Mcg = 43380 Iu)] Empagliflozin [Jardiance] 25 mg PO DAILY 11/12/20 12/08/20 Rizatriptan Odt [Maxalt [employer]] 10 mg PO DAILY PRN 11/12/20 12/08/20 metFORMIN HCL [Glucophage] 1,000 mg PO BID 11/12/20 12/08/20 Previous Rx's Medication Instructions Recorded Dicyclomine [Bentyl] 20 mg PO TID PRN #14 tablet 01/17/21 Ondansetron [Zofran ODT] 4 mg PO Q8HR PRN #15 tab 01/17/21 Allergies Allergy/AdvReac Type Severity Reaction Status Date / Time codeine Allergy Hallucinati Verified 01/17/21 06:51 ons tramadol Allergy Hallucinati Verified 01/17/21 06:51 ons valacyclovir HCl AdvReac BLURRED Verified 01/17/21 06:51 [From Valtrex] VISION Review of Systems ROS Statement: Those systems with pertinent positive or pertinent negative responses have been documented in the HPI. ROS Other: All systems not noted in ROS Statement are negative. Past Medical History Past Medical History: Asthma, Diabetes Mellitus, Fibromyalgia, GERD/Reflux, Sleep Apnea/CPAP/BIPAP, Thyroid Disorder Additional Past Medical History / Comment(s): Migraines, DDD , IBS, NO CPAP used. HX PERFORATED DIVERTICULITIS, internal abd hematoma, seasonal allergies, History of Any Multi-Drug Resistant Organisms: None Reported Past Surgical History: Bowel Resection, Breast Surgery, Cholecystectomy, Hernia Repair Additional Past Surgical History / Comment(s): Rt Breast biopsy. bowel resection with Colostomy/ later colostomy Reversal, abdominal surgery to remove scar tissue. Past Anesthesia/Blood Transfusion Reactions: No Reported Reaction Past Psychological History: Anxiety, Bipolar, Depression Smoking Status: Never smoker Past Alcohol Use History: None Reported Past Drug Use History: None Reported - Past Family History Mother History Unknown: Yes Family Medical History: No Reported History Additional Family Medical History / Comment(s): . Brother(s) Family Medical History: Diabetes Mellitus Father Family Medical History: Unable to Obtain General Exam Limitations: no limitations General appearance: alert, in no apparent distress Head exam: Present: atraumatic Eye exam: Present: normal appearance, PERRL, EOMI. Absent: scleral icterus, conjunctival injection ENT exam: Present: normal exam, mucous membranes moist Neck exam: Present: normal inspection, full ROM. Absent: tenderness Respiratory exam: Present: normal lung sounds bilaterally. Absent: respiratory distress, wheezes Cardiovascular Exam: Present: regular rate, normal rhythm, normal heart sounds GI/Abdominal exam: Present: soft, tenderness (mild luq tenderness. no guarding. no lower abdominal tenderness.), normal bowel sounds. Absent: distended Neurological exam: Present: alert Course Vital Signs 01/17/21 06:51 Temperature 98.4 F Pulse Rate 73 Respiratory 16 Rate Blood Pressure 145/90 O2 Sat by Pulse 96 Oximetry Medical Decision Making - Medical Decision Making Vitals are stable. Patient does have some mild left upper quadrant pain however no guarding or rebound. No lower abdominal pain. Laboratory evaluation was initiated which was unremarkable. CBC CMP unremarkable. Urinalysis negative. HCG was negative on recent visit 6 days ago. I did review previous visits. Patient has had 3 CAT scans in the past month for similar pain. At this time suspect pain is more chronic in nature. She has not had any nausea or vomiting. She is passing gas. Patient was given pain medication, states she is feeling better. Patient can follow up with her surgeon and primary care. She will return here for any worsening symptoms. - Lab Data Result diagrams: 01/17/21 07:47 01/17/21 07:47 Lab Results 01/17/21 01/17/21 01/17/21 Range/Units 07:47 07:47 07:47 WBC 8.3 (3.8-10.6) k/uL RBC 4.82 (3.80-5.40) m/uL Hgb 12.1 (11.4-16.0) gm/dL Hct 38.8 (34.0-46.0) % MCV 80.5 (80.0-100.0) fL MCH 25.1 (25.0-35.0) pg MCHC 31.2 (31.0-37.0) g/dL RDW 17.2 H (11.5-15.5) % Plt Count 385 (150-450) k/uL MPV 7.3 Neutrophils % 67 % Lymphocytes % 23 % Monocytes % 5 % Eosinophils % 3 % Basophils % 1 % Neutrophils # 5.5 (1.3-7.7) k/uL Lymphocytes # 1.9 (1.0-4.8) k/uL Monocytes # 0.4 (0-1.0) k/uL Eosinophils # 0.2 (0-0.7) k/uL Basophils # 0.1 (0-0.2) k/uL Hypochromasia Slight Anisocytosis Slight Microcytosis Slight Sodium 138 (137-145) mmol/L Potassium 4.4 (3.5-5.1) mmol/L Chloride 115 H (98-107) mmol/L Carbon Dioxide 16 L (22-30) mmol/L Anion Gap 7 mmol/L BUN 16 (7-17) mg/dL Creatinine 0.75 (0.52-1.04) mg/dL Est GFR (CKD-EPI)AfAm >90 (>60 ml/min/1.73 sqM) Est GFR (CKD-EPI)NonAf >90 (>60 ml/min/1.73 sqM) Glucose 106 H (74-99) mg/dL Calcium 9.1 (8.4-10.2) mg/dL Total Bilirubin 0.5 (0.2-1.3) mg/dL AST 39 H (14-36) U/L ALT 25 (4-34) U/L Alkaline Phosphatase 68 (38-126) U/L Total Protein 6.8 (6.3-8.2) g/dL Albumin 3.7 (3.5-5.0) g/dL Amylase 68 (30-110) U/L Lipase 133 (23-300) U/L Urine Color Yellow Urine Appearance Clear (Clear) Urine pH 6.5 (5.0-8.0) Ur Specific [place] 1.020 (1.001-1.035) Urine Protein Negative (Negative) Urine Glucose (UA) Negative (Negative) Urine Ketones Negative (Negative) Urine Blood Negative (Negative) Urine Nitrite Negative (Negative) Urine Bilirubin Negative (Negative) Urine Urobilinogen <2.0 (<2.0) mg/dL Ur Leukocyte Esterase Negative (Negative) Disposition Clinical Impression: Abdominal pain Disposition: HOME SELF-CARE Condition: Good Instructions (If sedation given, give patient instructions): Abdominal Pain (ED) Additional Instructions: Take Motrin and Tylenol for pain. Take prescription medication as directed. Return to the emergency room for any worsening symptoms. Otherwise follow-up with primary care or your surgeon. Prescriptions: Dicyclomine [Bentyl] 20 mg PO TID PRN #14 tablet PRN Reason: abdominal pain Ondansetron [Zofran ODT] 4 mg PO Q8HR PRN #15 tab PRN Reason: Nausea Is patient prescribed a controlled substance at d/c from ED?: No Referrals: Edgardo Inman MD [Primary Care Provider] - 1-2 days Time of Disposition: 08:40
[2021-01-17 08:13] LABS: Appearance,Urine Clear (Clear); Bilirubin,Urine Negative (Negative); Blood,Urine Negative (Negative); Color,Urine Yellow; Glucose,Urine (UA) Negative (Negative); Ketones,Urine Negative (Negative); Leukocyte Esterase,Urine Negative (Negative); Nitrite,Urine Negative (Negative); PH, Urine 6.5 (5.0-8.0); Protein,Urine Negative (Negative); Urobilinogen,Urine <2.0 mg/dL (<2.0)
[2021-01-17 08:24] LABS: ALT 25 U/L (4-34); AST 39 U/L (14-36); African American GFR (CKD) >90 (>60 ml/min/1.73 sqM); Albumin 3.7 g/dL (3.5-5.0); Alkaline Phosphatase 68 U/L (38-126); Amylase 68 U/L (30-110); Anion Gap 7 mmol/L; Blood Urea Nitrogen 16 mg/dL (7-17); Calcium 9.1 mg/dL (8.4-10.2); Carbon Dioxide 16 mmol/L (22-30); Chloride 115 mmol/L (98-107); Glucose 106 mg/dL (74-99); Lipase 133 U/L (23-300); Non-African American GFR(CKD) >90 (>60 ml/min/1.73 sqM); Potassium 4.4 mmol/L (3.5-5.1); Sodium 138 mmol/L (137-145); Total Bilirubin 0.5 mg/dL (0.2-1.3); Total Protein 6.8 g/dL (6.3-8.2)
[2021-01-17 08:25] LABS: Anisocytosis Slight; Basophils # (A) 0.1 k/uL (0-0.2); Basophils % (A) 1 %; Eosinophils # (A) 0.2 k/uL (0-0.7); Eosinophils % (A) 3 %; HCT 38.8 % (34.0-46.0); HGB 12.1 gm/dL (11.4-16.0); Hypochromasia Slight; Lymphocytes # (A) 1.9 k/uL (1.0-4.8); Lymphocytes % (A) 23 %; MCH 25.1 pg (25.0-35.0); MCHC 31.2 g/dL (31.0-37.0); MCV 80.5 fL (80.0-100.0); Mean Platelet Volume 7.3; Microcytosis Slight; Monocytes # (A) 0.4 k/uL (0-1.0); Monocytes % (A) 5 %; Neutrophils # (A) 5.5 k/uL (1.3-7.7); Neutrophils % (A) 67 %; Platelet Count 385 k/uL (150-450); RBC 4.82 m/uL (3.80-5.40); RDW 17.2 % (11.5-15.5); WBC 8.3 k/uL (3.8-10.6)
[2021-01-17 08:50] VITALS: BP 138/85; PULSE 82; RESP 18
== END 2021-01-17 08:50 | disposition home or self-care (01) ==
LOC: EC 06:47
DX: R10.12 Left upper quadrant pain (principal); E11.9 Type 2 diabetes mellitus without complications; J45.909 Unspecified asthma, uncomplicated; K21.9 Gastro-esophageal reflux disease without esophagitis; M79.7 Fibromyalgia; Z79.1 Long term (current) use of non-steroidal anti-inflammatories (NSAID); Z79.84 Long term (current) use of oral hypoglycemic drugs; Z79.899 Other long term (current) drug therapy; Z90.49 Acquired absence of other specified parts of digestive tract; Z88.8 Allergy status to other drugs, medicaments and biological substances; Z88.5 Allergy status to narcotic agent
CPT/HCPCS: 36415; 80053; 82150; 83690; 85025; 81003; 99284; 96374; 96361; J1885

== ENCOUNTER 2021-02-09 11:05 | Emergency (ER) | payer OTHER ==
[2021-02-09 11:14] VITALS: RESP 18
--- NOTE | 2021-02-09 11:46 | XR ---
EXAMINATION TYPE: XR chest 2V DATE OF EXAM: 02/09/2021 COMPARISON: NONE HISTORY: Chest pain TECHNIQUE: Frontal and lateral views of the chest are obtained. FINDINGS: There is no focal air space opacity. No evidence for pneumothorax. No pleural effusion. The cardiac silhouette size is within normal limits. The osseous structures are grossly intact. IMPRESSION: 1. No acute cardiopulmonary process.
[2021-02-09] MEDS ORDERED: ONDANSETRON ODT 4 MG TAB PO STA (13:06)
[2021-02-09] MEDS ORDERED: LORazepam 1 MG TAB PO STA (13:11)
--- NOTE | 2021-02-09 13:14 | ED ---
URI HPI - General Chief Complaint: Upper Respiratory Infection Stated Complaint: covid+, SOB Time Seen by Provider: 02/09/21 12:49 Source: patient, RN notes reviewed Mode of arrival: ambulatory Limitations: no limitations - History of Present Illness Initial Comments: patient is a 35-year-old female presents to the ER today for chief complaint of shortness of breath. Patient reports symptoms started Sunday, has positive COVID-19 test results for which she has received monoclonal antibody for. Patient reports decrease in appetite with nausea and genrealized weekness patient denies vomiting, headache, fever. Patient denies any chest pain. She states her shortness breath is very mild. No recent fever at home. - Related Data Home Medications Medication Instructions Recorded Confirmed Levothyroxine Sodium [Synthroid] 50 mcg PO DAILY 05/05/14 12/08/20 traZODone HCL [Desyrel] 100 mg PO HS 04/04/15 12/08/20 Topiramate [Trokendi Xr] 200 mg PO DAILY 07/19/17 12/08/20 rOPINIRole HCL [Requip] 0.5 mg PO HS 01/23/19 12/08/20 Famotidine [Pepcid] 40 mg PO DAILY 07/28/19 12/08/20 Cetirizine HCl [Zyrtec] 10 mg PO DAILY 08/30/19 12/08/20 Pregabalin [Lyrica] 150 mg PO BID 08/30/19 12/08/20 [place] Fe 1.5-30 1 tab PO DAILY 04/21/20 12/08/20 Meloxicam 15 mg PO DAILY 06/28/20 12/08/20 HYDROcodone/APAP 7.5-325MG [[place] 1 tab PO TID PRN 08/10/20 12/08/20 7.5-325] ARIPiprazole [Abilify] 2 mg PO HS 09/14/20 12/08/20 Ondansetron Odt [Zofran Odt] 8 mg PO Q8HR PRN 09/14/20 12/08/20 Venlafaxine HCl [Effexor XR] 225 mg PO DAILY 09/14/20 12/08/20 Erenumab-Aooe [Aimovig 140 mg SQ Q30D 09/22/20 12/08/20 Autoinjector] Ergocalciferol [Vitamin D2 (1250 1,250 mcg PO GARCIA 09/22/20 12/08/20 Mcg = 20730 Iu)] Empagliflozin [Jardiance] 25 mg PO DAILY 11/12/20 12/08/20 Rizatriptan Odt [Maxalt Water/Wastewater Project Manager] 10 mg PO DAILY PRN 11/12/20 12/08/20 metFORMIN HCL [Glucophage] 1,000 mg PO BID 11/12/20 12/08/20 Previous Rx's Medication Instructions Recorded Dicyclomine [Bentyl] 20 mg PO TID PRN #14 tablet 01/17/21 Ondansetron [Zofran ODT] 4 mg PO Q8HR PRN #15 tab 01/17/21 Dexamethasone 6 mg PO DAILY #5 tablet 02/09/21 Ondansetron Odt [Zofran Odt] 4 mg PO Q8HR PRN #10 tab 02/09/21 Allergies Allergy/AdvReac Type Severity Reaction Status Date / Time codeine Allergy Hallucinati Verified 02/09/21 11:09 ons tramadol Allergy Hallucinati Verified 02/09/21 11:09 ons valacyclovir HCl AdvReac BLURRED Verified 02/09/21 11:09 [From Valtrex] VISION Review of Systems ROS Statement: Those systems with pertinent positive or pertinent negative responses have been documented in the HPI. ROS Other: All systems not noted in ROS Statement are negative. Past Medical History Past Medical History: Asthma, Diabetes Mellitus, Fibromyalgia, GERD/Reflux, Sleep Apnea/CPAP/BIPAP, Thyroid Disorder Additional Past Medical History / Comment(s): Migraines, DDD , IBS, NO CPAP used. HX PERFORATED DIVERTICULITIS, internal abd hematoma, seasonal allergies, History of Any Multi-Drug Resistant Organisms: None Reported Past Surgical History: Bowel Resection, Breast Surgery, Cholecystectomy, Hernia Repair Additional Past Surgical History / Comment(s): Rt Breast biopsy. bowel resection with Colostomy/ later colostomy Reversal, abdominal surgery to remove scar tissue. Past Anesthesia/Blood Transfusion Reactions: No Reported Reaction Past Psychological History: Anxiety, Bipolar, Depression Smoking Status: Never smoker Past Alcohol Use History: None Reported Past Drug Use History: None Reported - Past Family History Mother History Unknown: Yes Family Medical History: No Reported History Additional Family Medical History / Comment(s): . Brother(s) Family Medical History: Diabetes Mellitus Father Family Medical History: Unable to Obtain General Exam Limitations: no limitations General appearance: alert, anxious Head exam: Present: atraumatic, normocephalic, normal inspection Eye exam: Present: normal appearance, PERRL, EOMI. Absent: scleral icterus, conjunctival injection, periorbital swelling ENT exam: Present: normal exam, mucous membranes moist Neck exam: Present: normal inspection. Absent: tenderness, meningismus, lymphadenopathy Respiratory exam: Present: normal lung sounds bilaterally. Absent: respiratory distress, wheezes, rales, rhonchi, stridor Cardiovascular Exam: Present: regular rate, normal rhythm, normal heart sounds. Absent: systolic murmur, diastolic murmur, rubs, gallop, clicks GI/Abdominal exam: Present: soft, normal bowel sounds. Absent: distended, tenderness, guarding, rebound, rigid Rectal exam: Present: deferred Extremities exam: Present: normal inspection, full ROM, normal capillary refill. Absent: tenderness, pedal edema, joint swelling, calf tenderness Neurological exam: Present: alert, oriented X3, CN II-XII intact Psychiatric exam: Present: normal affect, normal mood Skin exam: Present: warm, dry, intact, normal color. Absent: rash Course Vital Signs 02/09/21 11:10 Temperature 98.4 F Pulse Rate 109 H Respiratory 18 Rate Blood Pressure 126/79 O2 Sat by Pulse 97 Oximetry Medical Decision Making - Medical Decision Making 35-year-old female presented from for cough and positive. Patient was given monoclonal antibodies on Sunday. Patient states that she's been increasing satiety which has chronic anxiety issues been at home by herself. Patient denies any significant vomiting states that she's had nausea. Denies any chest pain or pleuritic pain. Patient states she has mild shortness of breath mild nasal congestion and body aches. Patient provided continue the emergency department. Patient will be discharged on dexamethasone return parameters were discussed. Disposition Clinical Impression: COVID-19 Disposition: HOME SELF-CARE Condition: Stable Instructions (If sedation given, give patient instructions): Coronavirus Disease 2019 (COVID-19) Additional Instructions: Please return to the Emergency Department if symptoms worsen or any other concerns. Prescriptions: Dexamethasone 6 mg PO DAILY #5 tablet Ondansetron Odt [Zofran Odt] 4 mg PO Q8HR PRN #10 tab PRN Reason: Nausea Is patient prescribed a controlled substance at d/c from ED?: No Referrals: Edgardo Inman MD [Primary Care Provider] - 1-2 days Time of Disposition: 13:17
[2021-02-09 13:21] VITALS: BP 125/78; PULSE 77; TEMP 97.6
== END 2021-02-09 13:52 | disposition home or self-care (01) ==
LOC: EC 11:05
DX: U07.1 COVID-19 (principal); E11.9 Type 2 diabetes mellitus without complications; G47.30 Sleep apnea, unspecified; J45.909 Unspecified asthma, uncomplicated; K21.9 Gastro-esophageal reflux disease without esophagitis; K58.9 Irritable bowel syndrome, unspecified; F31.9 Bipolar disorder, unspecified; F41.9 Anxiety disorder, unspecified; M79.7 Fibromyalgia; Z79.1 Long term (current) use of non-steroidal anti-inflammatories (NSAID); Z79.52 Long term (current) use of systemic steroids; Z79.84 Long term (current) use of oral hypoglycemic drugs; Z79.899 Other long term (current) drug therapy; Z88.5 Allergy status to narcotic agent; Z88.8 Allergy status to other drugs, medicaments and biological substances; Z90.49 Acquired absence of other specified parts of digestive tract
CPT/HCPCS: 71046; 99285

== ENCOUNTER 2021-02-20 18:24 | Emergency (ER) | payer OTHER ==
[2021-02-20 19:40] VITALS: RESP 19; TEMP 98.5
[2021-02-20] MEDS ORDERED: SODIUM CHLORIDE 0.9% 1,000 ML IV STA (19:55)
[2021-02-20 21:13] LABS: ALT 32 U/L (4-34); AST 36 U/L (14-36); African American GFR (CKD) >90 (>60 ml/min/1.73 sqM); Albumin 3.9 g/dL (3.5-5.0); Alkaline Phosphatase 54 U/L (38-126); Anion Gap 8 mmol/L; Blood Urea Nitrogen 14 mg/dL (7-17); Calcium 9.4 mg/dL (8.4-10.2); Carbon Dioxide 19 mmol/L (22-30); Chloride 109 mmol/L (98-107); Glucose 175 mg/dL (74-99); Non-African American GFR(CKD) >90 (>60 ml/min/1.73 sqM); Sodium 136 mmol/L (137-145); Total Bilirubin 0.4 mg/dL (0.2-1.3)
--- NOTE | 2021-02-20 21:13 | ED ---
Dizziness HPI - General Chief Complaint: Dizziness Stated Complaint: not feeling well Time Seen by Provider: 02/20/21 19:50 Source: patient, RN notes reviewed Mode of arrival: ambulatory - History of Present Illness Initial Comments: Patient is a 35-year-old female that presents to emergency department complaining of not feeling well and some dizziness. She notes that she woke up this morning not feeling well. She notes that she checks her sugar was in the high 200s. Notes that she took all of her at home diabetic medications today. She notes she tried taking a nap makes him feel better but she opened her eyes she became dizzy again. Patient was emotional distress with sitting in bed during the exam interview. She denied any other issues or complaints. She denied any pain. She denied chest pain shortness breath headache nausea vomiting diarrhea constipation fever fatigue chills. - Related Data Home Medications Medication Instructions Recorded Confirmed Levothyroxine Sodium [Synthroid] 50 mcg PO DAILY 05/05/14 12/08/20 traZODone HCL [Desyrel] 100 mg PO HS 04/04/15 12/08/20 Topiramate [Trokendi Xr] 200 mg PO DAILY 07/19/17 12/08/20 rOPINIRole HCL [Requip] 0.5 mg PO HS 01/23/19 12/08/20 Famotidine [Pepcid] 40 mg PO DAILY 07/28/19 12/08/20 Cetirizine HCl [Zyrtec] 10 mg PO DAILY 08/30/19 12/08/20 Pregabalin [Lyrica] 150 mg PO BID 08/30/19 12/08/20 [place] Fe 1.5-30 1 tab PO DAILY 04/21/20 12/08/20 Meloxicam 15 mg PO DAILY 06/28/20 12/08/20 HYDROcodone/APAP 7.5-325MG [[place] 1 tab PO TID PRN 08/10/20 12/08/20 7.5-325] ARIPiprazole [Abilify] 2 mg PO HS 09/14/20 12/08/20 Ondansetron Odt [Zofran Odt] 8 mg PO Q8HR PRN 09/14/20 12/08/20 Venlafaxine HCl [Effexor XR] 225 mg PO DAILY 09/14/20 12/08/20 Erenumab-Aooe [Aimovig 140 mg SQ Q30D 09/22/20 12/08/20 Autoinjector] Ergocalciferol [Vitamin D2 (1250 1,250 mcg PO GARCIA 09/22/20 12/08/20 Mcg = 69975 Iu)] Empagliflozin [Jardiance] 25 mg PO DAILY 11/12/20 12/08/20 Rizatriptan Odt [Maxalt Director Of Graduate Medical Education] 10 mg PO DAILY PRN 11/12/20 12/08/20 metFORMIN HCL [Glucophage] 1,000 mg PO BID 11/12/20 12/08/20 Previous Rx's Medication Instructions Recorded Dicyclomine [Bentyl] 20 mg PO TID PRN #14 tablet 01/17/21 Ondansetron [Zofran ODT] 4 mg PO Q8HR PRN #15 tab 01/17/21 Dexamethasone 6 mg PO DAILY #5 tablet 02/09/21 Ondansetron Odt [Zofran Odt] 4 mg PO Q8HR PRN #10 tab 02/09/21 Allergies Allergy/AdvReac Type Severity Reaction Status Date / Time codeine Allergy Hallucinati Verified 02/20/21 19:40 ons tramadol Allergy Hallucinati Verified 02/20/21 19:40 ons valacyclovir HCl AdvReac BLURRED Verified 02/20/21 19:40 [From Valtrex] VISION Review of Systems ROS Statement: Those systems with pertinent positive or pertinent negative responses have been documented in the HPI. ROS Other: All systems not noted in ROS Statement are negative. Past Medical History Past Medical History: Asthma, Diabetes Mellitus, Fibromyalgia, GERD/Reflux, Sleep Apnea/CPAP/BIPAP, Thyroid Disorder Additional Past Medical History / Comment(s): Migraines, DDD , IBS, NO CPAP used. HX PERFORATED DIVERTICULITIS, internal abd hematoma, seasonal allergies, History of Any Multi-Drug Resistant Organisms: None Reported Past Surgical History: Bowel Resection, Breast Surgery, Cholecystectomy, Hernia Repair Additional Past Surgical History / Comment(s): Rt Breast biopsy. bowel resection with Colostomy/ later colostomy Reversal, abdominal surgery to remove scar tissue. Past Anesthesia/Blood Transfusion Reactions: No Reported Reaction Past Psychological History: Anxiety, Bipolar, Depression Smoking Status: Never smoker Past Alcohol Use History: None Reported Past Drug Use History: None Reported - Past Family History Mother History Unknown: Yes Family Medical History: No Reported History Additional Family Medical History / Comment(s): . Brother(s) Family Medical History: Diabetes Mellitus Father Family Medical History: Unable to Obtain General Exam General appearance: alert, in no apparent distress, obese (Morbidly) Head exam: Present: atraumatic, normocephalic, normal inspection Eye exam: Present: normal appearance, PERRL, EOMI. Absent: scleral icterus, con junctival injection, periorbital swelling ENT exam: Present: normal exam, mucous membranes moist Neck exam: Present: normal inspection Respiratory exam: Present: normal lung sounds bilaterally. Absent: respiratory distress, wheezes, rales, rhonchi, stridor Cardiovascular Exam: Present: regular rate, normal rhythm, normal heart sounds. Absent: systolic murmur, diastolic murmur, rubs, gallop, clicks GI/Abdominal exam: Present: soft, normal bowel sounds. Absent: distended, tenderness, guarding, rebound, rigid Extremities exam: Present: normal inspection, full ROM, normal capillary refill. Absent: tenderness, pedal edema, joint swelling, calf tenderness Neurological exam: Present: alert, oriented X3 Expanded Patient oriented to: Present: person, place, time Cranial nerves: EOM's Intact: Normal Cerebellar function: Finger to Nose: Normal, Heel to Jeff[place]: Normal Motor strength exam: RUE: 5, LUE: 5, RLE: 5, LLE: 5 Psychiatric exam: Present: normal affect, normal mood Skin exam: Present: warm, dry, intact, normal color. Absent: rash Course Vital Signs 02/20/21 19:35 Temperature 98.5 F Pulse Rate 85 Respiratory 19 Rate Blood Pressure 145/77 O2 Sat by Pulse 98 Oximetry EKG Findings - EKG Comments: EKG Findings:: Ventricular rate 79 bpm, ND interval 148 ms, QRS duration 94 ms, QTC 431 ms, PRT axes 66/-29/44. Normal sinus rhythm, low voltage QRS, cannot rule out anterior infarct age undetermined, abnormal ECG. Medical Decision Making - Medical Decision Making 35-year-old female complaining of dizziness times one. 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 Labs unremarkable. EKG similar to previous. Patient said the symptoms consistent with early migraine. Case discussed with Dr. Wren, patient can discharge home with follow-up primary care. - Lab Data Result diagrams: 02/20/21 20:21 02/20/21 20:21 Lab Results 02/20/21 02/20/21 02/20/21 Range/Units 20:21 20:21 20:21 WBC 6.7 (3.8-10.6) k/uL RBC 4.86 (3.80-5.40) m/uL Hgb 12.5 (11.4-16.0) gm/dL Hct 39.8 (34.0-46.0) % MCV 81.9 (80.0-100.0) fL MCH 25.6 (25.0-35.0) pg MCHC 31.3 (31.0-37.0) g/dL RDW 17.0 H (11.5-15.5) % Plt Count 235 (150-450) k/uL MPV 10.5 Neutrophils % 53 % Lymphocytes % 35 % Monocytes % 7 % Eosinophils % 3 % Basophils % 1 % Neutrophils # 3.6 (1.3-7.7) k/uL Lymphocytes # 2.4 (1.0-4.8) k/uL Monocytes # 0.4 (0-1.0) k/uL Eosinophils # 0.2 (0-0.7) k/uL Basophils # 0.0 (0-0.2) k/uL Hypochromasia Slight Anisocytosis Slight Sodium 136 L (137-145) mmol/L Potassium 4.5 (3.5-5.1) mmol/L Chloride 109 H (98-107) mmol/L Carbon Dioxide 19 L (22-30) mmol/L Anion Gap 8 mmol/L BUN 14 (7-17) mg/dL Creatinine 0.64 (0.52-1.04) mg/dL Est GFR (CKD-EPI)AfAm >90 (>60 ml/min/1.73 sqM) Est GFR (CKD-EPI)NonAf >90 (>60 ml/min/1.73 sqM) Glucose 175 H (74-99) mg/dL Calcium 9.4 (8.4-10.2) mg/dL Total Bilirubin 0.4 (0.2-1.3) mg/dL AST 36 (14-36) U/L ALT 32 (4-34) U/L Alkaline Phosphatase 54 (38-126) U/L Total Protein 7.0 (6.3-8.2) g/dL Albumin 3.9 (3.5-5.0) g/dL Urine Color Yellow Urine Appearance Cloudy H (Clear) Urine pH 7.0 (5.0-8.0) Ur Specific Mcdaniel 1.022 (1.001-1.035) Urine Protein Negative (Negative) Urine Glucose (UA) 4+ H (Negative) Urine Ketones Negative (Negative) Urine Blood Negative (Negative) Urine Nitrite Negative (Negative) Urine Bilirubin Negative (Negative) Urine Urobilinogen <2.0 (<2.0) mg/dL Ur Leukocyte Esterase Negative (Negative) Urine RBC 1 (0-5) /hpf Urine WBC 5 (0-5) /hpf Ur Squamous Epith Cells 5 H (0-4) /hpf Amorphous Sediment Few H (None) /hpf Urine Bacteria Occasional H (None) /hpf Urine Mucus Rare H (None) /hpf - EKG Data -: EKG Interpreted by [place] EKG shows normal: sinus rhythm Rate: normal EKG Comments: Ventricular rate 79 bpm, ND interval 148 ms, QRS duration 94 ms, QTC 431 ms, PRT axes 66/-29/44. Normal sinus rhythm, low voltage QRS, cannot rule out anterior infarct age undetermined, abnormal ECG. Disposition Clinical Impression: Dehydration, Dizziness Disposition: HOME SELF-CARE Condition: Stable Instructions (If sedation given, give patient instructions): Dizziness (ED) Additional Instructions: Please return to the Emergency Department if symptoms worsen or any other concerns. Increase oral fluid intake. Follow-up with primary care 1-2 days. Is patient prescribed a controlled substance at d/c from ED?: No Referrals: Edgardo Inman MD [Primary Care Provider] - 1-2 days Time of Disposition: 21:49
[2021-02-20 21:19] LABS: Potassium 4.5 mmol/L (3.5-5.1)
[2021-02-20 21:21] LABS: Amorphous Sediment,Urine Few /hpf; Appearance,Urine Cloudy (Clear); Bacteria,Urine Occasional /hpf; Bilirubin,Urine Negative (Negative); Blood,Urine Negative (Negative); Color,Urine Yellow; Glucose,Urine (UA) 4+ (Negative); Ketones,Urine Negative (Negative); Leukocyte Esterase,Urine Negative (Negative); Mucus,Urine Rare /hpf; Nitrite,Urine Negative (Negative); Protein,Urine Negative (Negative); RBC,Urine 1 /hpf (0-5); Specific Gravity,Urine 1.022 (1.001-1.035); Squamous Epithelial Cell,Urine 5 /hpf (0-4); Urobilinogen,Urine <2.0 mg/dL (<2.0); WBC,Urine 5 /hpf (0-5)
[2021-02-20 21:32] LABS: Anisocytosis Slight; Basophils % (A) 1 %; Eosinophils # (A) 0.2 k/uL (0-0.7); Eosinophils % (A) 3 %; HCT 39.8 % (34.0-46.0); HGB 12.5 gm/dL (11.4-16.0); Hypochromasia Slight; Lymphocytes # (A) 2.4 k/uL (1.0-4.8); Lymphocytes % (A) 35 %; MCH 25.6 pg (25.0-35.0); MCHC 31.3 g/dL (31.0-37.0); MCV 81.9 fL (80.0-100.0); Mean Platelet Volume 10.5; Monocytes # (A) 0.4 k/uL (0-1.0); Monocytes % (A) 7 %; Neutrophils # (A) 3.6 k/uL (1.3-7.7); Neutrophils % (A) 53 %; Platelet Count 235 k/uL (150-450); RBC 4.86 m/uL (3.80-5.40); WBC 6.7 k/uL (3.8-10.6)
[2021-02-20 22:14] VITALS: BP 113/72; PULSE 91
== END 2021-02-20 22:29 | disposition home or self-care (01) ==
LOC: EC 18:24
DX: E86.0 Dehydration (principal); J45.909 Unspecified asthma, uncomplicated; E11.9 Type 2 diabetes mellitus without complications; G47.30 Sleep apnea, unspecified; K21.9 Gastro-esophageal reflux disease without esophagitis; K58.9 Irritable bowel syndrome, unspecified; M79.7 Fibromyalgia; F31.9 Bipolar disorder, unspecified; F41.9 Anxiety disorder, unspecified; Z79.1 Long term (current) use of non-steroidal anti-inflammatories (NSAID); Z79.52 Long term (current) use of systemic steroids; Z79.84 Long term (current) use of oral hypoglycemic drugs; Z90.49 Acquired absence of other specified parts of digestive tract; Z88.5 Allergy status to narcotic agent; Z88.8 Allergy status to other drugs, medicaments and biological substances
CPT/HCPCS: 36415; 80053; 81001; 85025; 93005; 96360; 96361; 99284

== ENCOUNTER → 2021-03-07 | Outpatient (CLI) | payer OTHER ==
[2021-03-07 12:48] VITALS: BMI 47.0
== END ==
LOC: BARWHC3 08:40
PROVIDERS: ATTEND Surgery
DX: E66.01 Morbid (severe) obesity due to excess calories (principal); Z71.3 Dietary counseling and surveillance; Z68.42 Body mass index [BMI] 45.0-49.9, adult; Z88.5 Allergy status to narcotic agent; Z88.1 Allergy status to other antibiotic agents
CPT/HCPCS: 97804

== ENCOUNTER 2021-03-09 17:36 | Emergency (ER) | payer OTHER ==
[2021-03-09 18:43] VITALS: BP 120/80; PULSE 96; RESP 20; TEMP 97.9
[2021-03-09] MEDS ORDERED: MORPHINE SULFATE 4 MG/ML SYRINGE IV STA (20:50)
--- NOTE | 2021-03-09 20:54 | ED ---
General Adult HPI - General Chief complaint: Abdominal Pain Stated complaint: RUQ Pain Time Seen by Provider: 03/09/21 20:17 Source: patient Mode of arrival: ambulatory Limitations: no limitations - History of Present Illness Initial comments: Dictation was produced using [employer] dictation software. please excuse any grammatical, word or spelling errors. Chief Complaint: 35-year-old female presents with right lower chest pain and rig ht upper quadrant abdominal pain History of Present Illness: Patient's 35-year-old female who last several hours she is had right upper quadrant and right lower chest pain. Patient has history of cholecystectomy. States that her symptoms started acutely. She states that sharp and constant. It's worse with deep inspiration. Denies any shortness of breath. Denies any fever. No diarrhea. No nausea or vomiting. Patient states that her symptoms started before she was eating. The ROS documented in this emergency department record has been reviewed and confirmed by me. Those systems with pertinent positive or negative responses have been documented in the HPI. All other systems are other negative and/or noncontributory. PHYSICAL EXAM: General Impression: Alert and oriented x3, not in acute distress HEENT: Normocephalic atraumatic, extra-ocular movements intact, pupils equal and reactive to light bilaterally, mucous membranes moist. Cardiovascular: Heart regular rate and rhythm Chest: Able to complete full sentences, no retractions, no tachypnea Abdomen: abdomen soft, non-tender, negative Aden sign, non-distended, no organomegaly Musculoskeletal: Pulses present and equal in all extremities, no peripheral edema Motor: no focal deficits noted Neurological: CN II-XII grossly intact, no focal motor or sensory deficits noted Skin: Intact with no visualized rashes Psych: Normal affect and mood ED course: 35-year-old female presents emergency department for right upper q uadrant and right lower chest pain. vital signs upon arrival are within acceptable limits. Metabolic panel unremarkable. CBC Unremarkable. Patient is stable appearing. reevaluated at bedside and resting comfortably. patient agreeable with discharge. EKG interpretation: Ventricular rate 86, normal sinus rhythm, WV interval 154, QRS 90, QTc 449. No WV prolongation, no QTC prolongation, no ST or T-wave changes noted. Overall, this EKG is unremarkable - Related Data Home Medications Medication Instructions Recorded Confirmed Levothyroxine Sodium [Synthroid] 50 mcg PO DAILY 05/05/14 03/07/21 Topiramate [Trokendi Xr] 200 mg PO DAILY 07/19/17 03/07/21 rOPINIRole HCL [Requip] 1 mg PO TID 01/23/19 03/07/21 Famotidine [Pepcid] 40 mg PO DAILY 07/28/19 03/07/21 Cetirizine HCl [Zyrtec] 10 mg PO DAILY 08/30/19 03/07/21 Pregabalin [Lyrica] 150 mg PO BID 08/30/19 03/07/21 [place] Fe 1.5-30 1 tab PO DAILY 04/21/20 03/07/21 Meloxicam 15 mg PO DAILY 06/28/20 03/07/21 HYDROcodone/APAP 7.5-325MG [[place] 1 tab PO TID PRN 08/10/20 03/07/21 7.5-325] ARIPiprazole [Abilify] 2 mg PO HS 09/14/20 03/07/21 Ondansetron Odt [Zofran Odt] 8 mg PO Q8HR PRN 09/14/20 03/07/21 Venlafaxine HCl [Effexor XR] 225 mg PO DAILY 09/14/20 03/07/21 Erenumab-Aooe [Aimovig 140 mg SQ Q30D 09/22/20 03/07/21 Autoinjector] Ergocalciferol [Vitamin D2 (1250 1,250 mcg PO GARCIA 09/22/20 03/07/21 Mcg = 13868 Iu)] Empagliflozin [Jardiance] 25 mg PO DAILY 11/12/20 03/07/21 Rizatriptan Odt [Maxalt Psychotherapist] 10 mg PO DAILY PRN 11/12/20 03/07/21 metFORMIN HCL [Glucophage] 1,000 mg PO BID 11/12/20 03/07/21 Amitriptyline HCl [Elavil] 10 mg PO HS 03/07/21 03/07/21 Allergies Allergy/AdvReac Type Severity Reaction Status Date / Time codeine Allergy Hallucinati Verified 03/09/21 18:43 ons tramadol Allergy Hallucinati Verified 03/09/21 18:43 ons valacyclovir HCl AdvReac BLURRED Verified 03/09/21 18:43 [From Valtrex] VISION Review of Systems ROS Statement: Those systems with pertinent positive or pertinent negative responses have been documented in the HPI. ROS Other: All systems not noted in ROS Statement are negative. Past Medical History Past Medical History: Asthma, Diabetes Mellitus, Fibromyalgia, GERD/Reflux, Sleep Apnea/CPAP/BIPAP, Thyroid Disorder Additional Past Medical History / Comment(s): Migraines, DDD , IBS, NO CPAP used. HX PERFORATED DIVERTICULITIS, internal abd hematoma, seasonal allergies, History of Any Multi-Drug Resistant Organisms: None Reported Past Surgical History: Bowel Resection, Breast Surgery, Cholecystectomy, Hernia Repair Additional Past Surgical History / Comment(s): Rt Breast biopsy. bowel resection with Colostomy/ later colostomy Reversal, abdominal surgery to remove scar tissue. Past Anesthesia/Blood Transfusion Reactions: No Reported Reaction Past Psychological History: Anxiety, Bipolar, Depression Smoking Status: Never smoker Past Alcohol Use History: None Reported Past Drug Use History: None Reported - Past Family History Mother History Unknown: Yes Family Medical History: No Reported History Additional Family Medical History / Comment(s): . Brother(s) Family Medical History: Diabetes Mellitus Father Family Medical History: Unable to Obtain General Exam Limitations: no limitations Course Vital Signs 03/09/21 18:41 Temperature 97.9 F Pulse Rate 96 Respiratory 20 Rate Blood Pressure 120/80 O2 Sat by Pulse 99 Oximetry Medical Decision Making - Lab Data Result diagrams: 03/09/21 22:10 03/09/21 22:39 Lab Results 03/09/21 03/09/21 03/09/21 Range/Units 21:10 22:10 22:39 WBC 10.7 H (3.8-10.6) k/uL RBC 4.74 (3.80-5.40) m/uL Hgb 12.0 (11.4-16.0) gm/dL Hct 39.9 (34.0-46.0) % MCV 84.1 (80.0-100.0) fL MCH 25.4 (25.0-35.0) pg MCHC 30.2 L (31.0-37.0) g/dL RDW 16.0 H (11.5-15.5) % Plt Count 334 (150-450) k/uL MPV 7.6 Neutrophils % 62 % Lymphocytes % 26 % Monocytes % 6 % Eosinophils % 4 % Basophils % 1 % Neutrophils # 6.6 (1.3-7.7) k/uL Lymphocytes # 2.8 (1.0-4.8) k/uL Monocytes # 0.6 (0-1.0) k/uL Eosinophils # 0.4 (0-0.7) k/uL Basophils # 0.1 (0-0.2) k/uL Hypochromasia Moderate Sodium 137 (137-145) mmol/L Potassium 3.9 (3.5-5.1) mmol/L Chloride 111 H (98-107) mmol/L Carbon Dioxide 19 L (22-30) mmol/L Anion Gap 7 mmol/L BUN 14 (7-17) mg/dL Creatinine 0.65 (0.52-1.04) mg/dL Est GFR (CKD-EPI)AfAm >90 (>60 ml/min/1.73 sqM) Est GFR (CKD-EPI)NonAf >90 (>60 ml/min/1.73 sqM) Glucose 138 H (74-99) mg/dL Calcium 8.6 (8.4-10.2) mg/dL Total Bilirubin 0.2 (0.2-1.3) mg/dL AST 33 (14-36) U/L ALT 34 (4-34) U/L Alkaline Phosphatase 73 (38-126) U/L Total Protein 6.2 L (6.3-8.2) g/dL Albumin 3.4 L (3.5-5.0) g/dL Lipase 122 (23-300) U/L Urine HCG, Qual Not Detected (Not Detectd) Disposition Clinical Impression: Abdominal pain Disposition: HOME SELF-CARE Condition: Fair Instructions (If sedation given, give patient instructions): Abdominal Pain (ED) Is patient prescribed a controlled substance at d/c from ED?: No Referrals: Edgardo Inman MD [Primary Care Provider] - 1-2 days
--- NOTE | 2021-03-09 22:22 | XR ---
EXAMINATION TYPE: XR abdomen acute w cxr DATE OF EXAM: 03/09/2021 COMPARISON: NONE HISTORY: Abdominal pain TECHNIQUE: 4 views FINDINGS: Heart and mediastinum are normal. Lungs are clear. Diaphragm is normal. Bony thorax appears normal. Bowel gas pattern is normal. There is no sign of intestinal obstruction or pneumoperitoneum. Fecal pattern is normal. There are no pathologic calcifications over the kidneys. IMPRESSION: Nonacute abdomen. No cardiopulmonary disease.
[2021-03-09 22:32] LABS: Basophils # (A) 0.1 k/uL (0-0.2); Basophils % (A) 1 %; Eosinophils # (A) 0.4 k/uL (0-0.7); Eosinophils % (A) 4 %; HCT 39.9 % (34.0-46.0); Hypochromasia Moderate; Lymphocytes # (A) 2.8 k/uL (1.0-4.8); Lymphocytes % (A) 26 %; MCH 25.4 pg (25.0-35.0); MCHC 30.2 g/dL (31.0-37.0); MCV 84.1 fL (80.0-100.0); Mean Platelet Volume 7.6; Monocytes # (A) 0.6 k/uL (0-1.0); Monocytes % (A) 6 %; Neutrophils # (A) 6.6 k/uL (1.3-7.7); Neutrophils % (A) 62 %; Platelet Count 334 k/uL (150-450); RBC 4.74 m/uL (3.80-5.40); WBC 10.7 k/uL (3.8-10.6)
[2021-03-09] MEDS ORDERED: ONDANSETRON 4 MG/2 ML VIAL IVP STA (22:43)
[2021-03-09 22:57] LABS: ALT 34 U/L (4-34); AST 33 U/L (14-36); African American GFR (CKD) >90 (>60 ml/min/1.73 sqM); Albumin 3.4 g/dL (3.5-5.0); Alkaline Phosphatase 73 U/L (38-126); Anion Gap 7 mmol/L; Blood Urea Nitrogen 14 mg/dL (7-17); Calcium 8.6 mg/dL (8.4-10.2); Carbon Dioxide 19 mmol/L (22-30); Chloride 111 mmol/L (98-107); Glucose 138 mg/dL (74-99); Lipase 122 U/L (23-300); Non-African American GFR(CKD) >90 (>60 ml/min/1.73 sqM); Potassium 3.9 mmol/L (3.5-5.1); Sodium 137 mmol/L (137-145); Total Bilirubin 0.2 mg/dL (0.2-1.3); Total Protein 6.2 g/dL (6.3-8.2)
== END 2021-03-10 01:50 | disposition home or self-care (01) ==
LOC: EC 17:36
DX: R10.11 Right upper quadrant pain (principal); J45.909 Unspecified asthma, uncomplicated; E11.9 Type 2 diabetes mellitus without complications; K21.9 Gastro-esophageal reflux disease without esophagitis; E07.9 Disorder of thyroid, unspecified; F41.9 Anxiety disorder, unspecified; F31.9 Bipolar disorder, unspecified; Z90.49 Acquired absence of other specified parts of digestive tract; Z79.84 Long term (current) use of oral hypoglycemic drugs; Z88.1 Allergy status to other antibiotic agents; Z88.5 Allergy status to narcotic agent
CPT/HCPCS: 99285; 96374; 96375; 36415; 93005; 80053; 83690; 85025; 81025; 74022; J2270; J2405

== ENCOUNTER → 2021-04-06 | Outpatient (CLI) | payer OTHER ==
[2021-04-07 01:29] LABS: LDL Cholesterol,Calculated 132.3 mg/dL (0.0-131.0)
== END | disposition home or self-care (01) ==
LOC: LABWHC1 14:17
PROVIDERS: ATTEND Surgery
DX: E66.01 Morbid (severe) obesity due to excess calories (principal); E55.9 Vitamin D deficiency, unspecified
CPT/HCPCS: 36415; 80061

== ENCOUNTER 2021-04-09 09:50 | Emergency (ER) | payer OTHER ==
[2021-04-09 10:03] VITALS: RESP 18; TEMP 98.1
[2021-04-09] MEDS ORDERED: SODIUM CHLORIDE 0.9% 1,000 ML IV STA (10:27)
[2021-04-09] MEDS ORDERED: MORPHINE SULFATE 4 MG/ML SYRINGE IV STA (10:27)
[2021-04-09] MEDS ORDERED: ONDANSETRON 4 MG/2 ML VIAL IVP STA (10:27)
--- NOTE | 2021-04-09 10:31 | ED ---
General Adult HPI - General Chief complaint: Abdominal Pain Stated complaint: abd pain Time Seen by Provider: 04/09/21 10:11 Source: patient Mode of arrival: ambulatory Limitations: no limitations - History of Present Illness Initial comments: 35-year-old female with a past medical history of asthma, diabetes mellitus, fibromyalgia, perforated diverticulum with reversed colostomy, cholecystectomy presents to the emergency room for a chief complaint of abdominal pain. States yesterday she started to develop left mid abdominal pain. States it is sharp in nature. Patient denies nausea vomiting diarrhea. Admits to chills but denies fevers.Patient has no other complaints at this time including shortness of breath, chest pain, nausea or vomiting, headache, or visual changes. - Related Data Home Medications Medication Instructions Recorded Confirmed Levothyroxine Sodium [Synthroid] 50 mcg PO DAILY 05/05/14 03/07/21 Topiramate [Trokendi Xr] 200 mg PO DAILY 07/19/17 03/07/21 rOPINIRole HCL [Requip] 1 mg PO TID 01/23/19 03/07/21 Famotidine [Pepcid] 40 mg PO DAILY 07/28/19 03/07/21 Cetirizine HCl [Zyrtec] 10 mg PO DAILY 08/30/19 03/07/21 Pregabalin [Lyrica] 150 mg PO BID 08/30/19 03/07/21 Blisovi Fe 1.5-30 1 tab PO DAILY 04/21/20 03/07/21 Meloxicam 15 mg PO DAILY 06/28/20 03/07/21 HYDROcodone/APAP 7.5-325MG [[place] 1 tab PO TID PRN 08/10/20 03/07/21 7.5-325] ARIPiprazole [Abilify] 2 mg PO HS 09/14/20 03/07/21 Ondansetron Odt [Zofran Odt] 8 mg PO Q8HR PRN 09/14/20 03/07/21 Venlafaxine HCl [Effexor XR] 225 mg PO DAILY 09/14/20 03/07/21 Erenumab-Aooe [Aimovig 140 mg SQ Q30D 09/22/20 03/07/21 Autoinjector] Ergocalciferol [Vitamin D2 (1250 1,250 mcg PO GARCIA 09/22/20 03/07/21 Mcg = 02682 Iu)] Empagliflozin [Jardiance] 25 mg PO DAILY 11/12/20 03/07/21 Rizatriptan Odt [Maxalt [employer] Operator] 10 mg PO DAILY PRN 11/12/20 03/07/21 metFORMIN HCL [Glucophage] 1,000 mg PO BID 11/12/20 03/07/21 Amitriptyline HCl [Elavil] 10 mg PO HS 03/07/21 03/07/21 Allergies Allergy/AdvReac Type Severity Reaction Status Date / Time codeine Allergy Hallucinati Verified 04/09/21 10:03 ons tramadol Allergy Hallucinati Verified 04/09/21 10:03 ons valacyclovir HCl AdvReac BLURRED Verified 04/09/21 10:03 [From Valtrex] VISION Review of Systems ROS Statement: Those systems with pertinent positive or pertinent negative responses have been documented in the HPI. ROS Other: All systems not noted in ROS Statement are negative. Past Medical History Past Medical History: Asthma, Diabetes Mellitus, Fibromyalgia, GERD/Reflux, Sleep Apnea/CPAP/BIPAP, Thyroid Disorder Additional Past Medical History / Comment(s): Migraines, DDD , IBS, NO CPAP used. HX PERFORATED DIVERTICULITIS, internal abd hematoma, seasonal allergies, History of Any Multi-Drug Resistant Organisms: None Reported Past Surgical History: Bowel Resection, Breast Surgery, Cholecystectomy, Hernia Repair Additional Past Surgical History / Comment(s): Rt Breast biopsy. bowel resection with Colostomy/ later colostomy Reversal, abdominal surgery to remove scar tissue. Past Anesthesia/Blood Transfusion Reactions: No Reported Reaction Past Psychological History: Anxiety, Bipolar, Depression Smoking Status: Never smoker Past Alcohol Use History: None Reported Past Drug Use History: None Reported - Past Family History Mother History Unknown: Yes Family Medical History: No Reported History Additional Family Medical History / Comment(s): . Brother(s) Family Medical History: Diabetes Mellitus Father Family Medical History: Unable to Obtain General Exam Limitations: no limitations General appearance: alert, in no apparent distress Head exam: Present: atraumatic Eye exam: Present: normal appearance, PERRL, EOMI. Absent: scleral icterus, conjunctival injection ENT exam: Present: normal exam, mucous membranes moist Neck exam: Present: normal inspection, full ROM. Absent: tenderness Respiratory exam: Present: normal lung sounds bilaterally. Absent: respiratory distress, wheezes Cardiovascular Exam: Present: regular rate, normal rhythm, normal heart sounds GI/Abdominal exam: Present: soft, tenderness (L sided mid abdominal tenderness, no lower abdominal tenderness.), normal bowel sounds. Absent: distended Course Vital Signs 04/09/21 10:00 Temperature 98.1 F Pulse Rate 83 Respiratory 18 Rate Blood Pressure 167/83 O2 Sat by Pulse 96 Oximetry Medical Decision Making - Medical Decision Making Vitals are stable. Patient is well-appearing. However she does have left mid abdominal pain. CBC unremarkable. CMP does show evidence of dehydration which is likely the cause of a slightly elevated lactic acid of 2.5. Given her history of perforated diverticulum with multiple surgeries CT was again obtained. No significant new or acute findings were seen. At this time patient can be discharged home. Will follow up with her surgeon Dr. Meadows. Will return here for any worsening symptoms. - Lab Data Result diagrams: 04/09/21 10:31 04/09/21 10:31 Lab Results 04/09/21 04/09/21 04/09/21 Range/Units 10:31 10:31 10:31 WBC 7.2 (3.8-10.6) k/uL RBC 5.17 (3.80-5.40) m/uL Hgb 12.9 (11.4-16.0) gm/dL Hct 41.6 (34.0-46.0) % MCV 80.5 (80.0-100.0) fL MCH 24.9 L (25.0-35.0) pg MCHC 30.9 L (31.0-37.0) g/dL RDW 15.5 (11.5-15.5) % Plt Count 383 (150-450) k/uL MPV 7.3 Neutrophils % 63 % Lymphocytes % 25 % Monocytes % 5 % Eosinophils % 5 % Basophils % 1 % Neutrophils # 4.5 (1.3-7.7) k/uL Lymphocytes # 1.8 (1.0-4.8) k/uL Monocytes # 0.3 (0-1.0) k/uL Eosinophils # 0.3 (0-0.7) k/uL Basophils # 0.0 (0-0.2) k/uL Hypochromasia Slight Sodium (137-145) mmol/L Potassium (3.5-5.1) mmol/L Chloride (98-107) mmol/L Carbon Dioxide (22-30) mmol/L Anion Gap mmol/L BUN (7-17) mg/dL Creatinine (0.52-1.04) mg/dL Est GFR (CKD-EPI)AfAm (>60 ml/min/1.73 sqM) Est GFR (CKD-EPI)NonAf (>60 ml/min/1.73 sqM) Glucose (74-99) mg/dL Plasma Lactic Acid Yobani (0.7-2.0) mmol/L Calcium (8.4-10.2) mg/dL Total Bilirubin (0.2-1.3) mg/dL AST (14-36) U/L ALT (4-34) U/L Alkaline Phosphatase (38-126) U/L Total Protein (6.3-8.2) g/dL Albumin (3.5-5.0) g/dL Amylase (30-110) U/L Lipase (23-300) U/L Urine Color Yellow Urine Appearance Clear (Clear) Urine pH 5.5 (5.0-8.0) Ur Specific Robbins 1.026 (1.001-1.035) Urine Protein Trace H (Negative) Urine Glucose (UA) 3+ H (Negative) Urine Ketones Negative (Negative) Urine Blood Negative (Negative) Urine Nitrite Negative (Negative) Urine Bilirubin Negative (Negative) Urine Urobilinogen <2.0 (<2.0) mg/dL Ur Leukocyte Esterase Small H (Negative) Urine RBC 1 (0-5) /hpf Urine WBC 5 (0-5) /hpf Ur Squamous Epith Cells 4 (0-4) /hpf Urine Bacteria Occasional H (None) /hpf Urine Mucus Moderate H (None) /hpf Urine HCG, Qual Not Detected (Not Detectd) 04/09/21 04/09/21 Range/Units 10:31 10:31 WBC (3.8-10.6) k/uL RBC (3.80-5.40) m/uL Hgb (11.4-16.0) gm/dL Hct (34.0-46.0) % MCV (80.0-100.0) fL MCH (25.0-35.0) pg MCHC (31.0-37.0) g/dL RDW (11.5-15.5) % Plt Count (150-450) k/uL MPV Neutrophils % % Lymphocytes % % Monocytes % % Eosinophils % % Basophils % % Neutrophils # (1.3-7.7) k/uL Lymphocytes # (1.0-4.8) k/uL Monocytes # (0-1.0) k/uL Eosinophils # (0-0.7) k/uL Basophils # (0-0.2) k/uL Hypochromasia Sodium 138 (137-145) mmol/L Potassium 4.3 (3.5-5.1) mmol/L Chloride 110 H (98-107) mmol/L Carbon Dioxide 19 L (22-30) mmol/L Anion Gap 9 mmol/L BUN 19 H (7-17) mg/dL Creatinine 0.73 (0.52-1.04) mg/dL Est GFR (CKD-EPI)AfAm >90 (>60 ml/min/1.73 sqM) Est GFR (CKD-EPI)NonAf >90 (>60 ml/min/1.73 sqM) Glucose 141 H (74-99) mg/dL Plasma Lactic Acid Yobani 2.5 H* (0.7-2.0) mmol/L Calcium 9.3 (8.4-10.2) mg/dL Total Bilirubin 0.4 (0.2-1.3) mg/dL AST 55 H (14-36) U/L ALT 51 H (4-34) U/L Alkaline Phosphatase 79 (38-126) U/L Total Protein 7.2 (6.3-8.2) g/dL Albumin 4.1 (3.5-5.0) g/dL Amylase 77 (30-110) U/L Lipase 174 (23-300) U/L Urine Color Urine Appearance (Clear) Urine pH (5.0-8.0) Ur Specific Robbins (1.001-1.035) Urine Protein (Negative) Urine Glucose (UA) (Negative) Urine Ketones (Negative) Urine Blood (Negative) Urine Nitrite (Negative) Urine Bilirubin (Negative) Urine Urobilinogen (<2.0) mg/dL Ur Leukocyte Esterase (Negative) Urine RBC (0-5) /hpf Urine WBC (0-5) /hpf Ur Squamous Epith Cells (0-4) /hpf Urine Bacteria (None) /hpf Urine Mucus (None) /hpf Urine HCG, Qual (Not Detectd) Disposition Clinical Impression: Abdominal pain Disposition: HOME SELF-CARE Condition: Good Instructions (If sedation given, give patient instructions): Abdominal Pain (ED) Additional Instructions: Please follow up with your doctor in 1-2 days. Return to the ER for any worsening symptoms. Is patient prescribed a controlled substance at d/c from ED?: No Referrals: Edgardo Inman MD [Primary Care Provider] - 1-2 days Time of Disposition: 11:52
[2021-04-09 10:50] LABS: ALT 51 U/L (4-34); AST 55 U/L (14-36); African American GFR (CKD) >90 (>60 ml/min/1.73 sqM); Albumin 4.1 g/dL (3.5-5.0); Alkaline Phosphatase 79 U/L (38-126); Amylase 77 U/L (30-110); Anion Gap 9 mmol/L; Blood Urea Nitrogen 19 mg/dL (7-17); Calcium 9.3 mg/dL (8.4-10.2); Carbon Dioxide 19 mmol/L (22-30); Chloride 110 mmol/L (98-107); Glucose 141 mg/dL (74-99); Lipase 174 U/L (23-300); Non-African American GFR(CKD) >90 (>60 ml/min/1.73 sqM); Potassium 4.3 mmol/L (3.5-5.1); Sodium 138 mmol/L (137-145); Total Bilirubin 0.4 mg/dL (0.2-1.3); Total Protein 7.2 g/dL (6.3-8.2)
[2021-04-09 10:54] LABS: Appearance,Urine Clear (Clear); Bacteria,Urine Occasional /hpf; Bilirubin,Urine Negative (Negative); Blood,Urine Negative (Negative); Color,Urine Yellow; Glucose,Urine (UA) 3+ (Negative); Ketones,Urine Negative (Negative); Leukocyte Esterase,Urine Small (Negative); Mucus,Urine Moderate /hpf; Nitrite,Urine Negative (Negative); PH, Urine 5.5 (5.0-8.0); Protein,Urine Trace (Negative); RBC,Urine 1 /hpf (0-5); Specific Gravity,Urine 1.026 (1.001-1.035); Squamous Epithelial Cell,Urine 4 /hpf (0-4); Urobilinogen,Urine <2.0 mg/dL (<2.0); WBC,Urine 5 /hpf (0-5)
[2021-04-09 11:00] LABS: Basophils % (A) 1 %; Eosinophils # (A) 0.3 k/uL (0-0.7); Eosinophils % (A) 5 %; HCT 41.6 % (34.0-46.0); HGB 12.9 gm/dL (11.4-16.0); Hypochromasia Slight; Lymphocytes # (A) 1.8 k/uL (1.0-4.8); Lymphocytes % (A) 25 %; MCH 24.9 pg (25.0-35.0); MCHC 30.9 g/dL (31.0-37.0); MCV 80.5 fL (80.0-100.0); Mean Platelet Volume 7.3; Monocytes # (A) 0.3 k/uL (0-1.0); Monocytes % (A) 5 %; Neutrophils # (A) 4.5 k/uL (1.3-7.7); Neutrophils % (A) 63 %; Platelet Count 383 k/uL (150-450); RBC 5.17 m/uL (3.80-5.40); RDW 15.5 % (11.5-15.5); WBC 7.2 k/uL (3.8-10.6)
--- NOTE | 2021-04-09 11:43 | CT ---
EXAMINATION TYPE: CT abdomen pelvis w con DATE OF EXAM: 04/09/2021 HISTORY: Abdominal pain CT DLP: 2668mGycm Automated Exposure Control for Dose Reduction was Utilized. CONTRAST: CT scan of the abdomen and pelvis is performed without oral but with IV Contrast, patient injected wi th 100 ml mL of Isovue 300. COMPARISON: CT abdomen pelvis January 11, 2021 and older CTs FINDINGS: LUNG BASES: No significant abnormality is appreciated. LIVER/GB: Liver remains heterogeneously hypodense consistent with diffuse fatty infiltration. Cholecy stectomy clips redemonstrated. PANCREAS: No significant abnormality is seen. SPLEEN: No significant abnormality is seen. ADRENALS: No significant abnormality is seen. KIDNEYS: No significant abnormality is seen. Bowel: Sutures junction of left and sigmoid colon. No suspicious bowel dilatation. UTERUS/ADNEXA: Anteverted uterus. Normal-sized ovaries. LYMPH NODES: No greater than 1cm abdominal or pelvic lymph nodes are appreciated. OSSEOUS STRUCTURES: No significant abnormality is seen. OTHER: Persistent ill-defined low dense tissue in the anterior abdominal wall deep subcutaneous tissu e could reflect thin-walled fluid collection or seroma surrounded by horizontal and vertical scarring axial image 55 and coronal image 28 not significantly changed in appearance from recent prior studie s. Size approximately 12 x 3 x 8 cm craniocaudal dimension. IMPRESSION: No significant new or acute finding is seen to account for patient's clinical symptoms.
[2021-04-09] MEDS ORDERED: DICYCLOMINE 10 MG/ML 2 ML AMP IM STA (12:03)
[2021-04-09 12:40] VITALS: BP 108/74; PULSE 63
== END 2021-04-09 12:40 | disposition home or self-care (01) ==
LOC: EC 09:50
DX: R10.9 Unspecified abdominal pain (principal); J45.909 Unspecified asthma, uncomplicated; E11.9 Type 2 diabetes mellitus without complications; K21.9 Gastro-esophageal reflux disease without esophagitis; G43.909 Migraine, unspecified, not intractable, without status migrainosus; F41.9 Anxiety disorder, unspecified; F31.9 Bipolar disorder, unspecified; Z79.84 Long term (current) use of oral hypoglycemic drugs; Z79.899 Other long term (current) drug therapy
CPT/HCPCS: 36415; 80053; 82150; 83605; 83690; 85025; 81001; 81025; 74177; 99284; 96374; 96375; 96361 ×2; 96372; J2270; J0500; J2405; Q9967

== ENCOUNTER 2021-04-29 13:37 | Emergency (ER) | payer OTHER ==
[2021-04-29 15:29] VITALS: TEMP 98.1
[2021-04-29] MEDS ORDERED: SODIUM CHLORIDE 0.9% 1,000 ML IV STA (18:43)
[2021-04-29] MEDS ORDERED: diphenhydrAMINE 50 MG/ML 1 ML VIAL IVP STA (18:43)
[2021-04-29] MEDS ORDERED: METOCLOPRAMIDE 5 MG/ML 2 ML VIAL IVP STA (18:43)
[2021-04-29] MEDS ORDERED: KETOROLAC 15 MG/ML 1 ML VIAL IVP STA (18:43)
--- NOTE | 2021-04-29 18:50 | ED ---
General Adult HPI - General Source: patient, RN notes reviewed Mode of arrival: ambulatory Limitations: no limitations <Casie Inman - Last Filed: 04/29/21 23:46> <Cat Flores - Last Filed: 05/04/21 00:24> - General Chief complaint: Headache Stated complaint: Headache x4 days Time Seen by Provider: 04/29/21 18:26 - History of Present Illness Initial comments: 36-year-old female presents to the emergency department with complaints of 4 day history of migraine headache. States pain is localized on the left side of the head. Patient states she has used all of her home medication resources unsuccessfully. States her headache is accompanied by persistent nausea, but no vomiting. Sensitivity to light, sound, and smells. Patient reports generalized fatigue. Has been able to work despite the headache. Denies fever, chills, and dizziness, chest pain, shortness of breath, difficulty breathing, abdominal pain, vomiting, diarrhea, dysuria, or hematuria. (Casie Inman) - Related Data Home Medications Medication Instructions Recorded Confirmed Levothyroxine Sodium [Synthroid] 50 mcg PO DAILY 05/05/14 03/07/21 Topiramate [Trokendi Xr] 200 mg PO DAILY 07/19/17 03/07/21 rOPINIRole HCL [Requip] 1 mg PO TID 01/23/19 03/07/21 Famotidine [Pepcid] 40 mg PO DAILY 07/28/19 03/07/21 Cetirizine HCl [Zyrtec] 10 mg PO DAILY 08/30/19 03/07/21 Pregabalin [Lyrica] 150 mg PO BID 08/30/19 03/07/21 Blisovi Fe 1.5-30 1 tab PO DAILY 04/21/20 03/07/21 Meloxicam 15 mg PO DAILY 06/28/20 03/07/21 HYDROcodone/APAP 7.5-325MG [[place] 1 tab PO TID PRN 08/10/20 03/07/21 7.5-325] ARIPiprazole [Abilify] 2 mg PO HS 09/14/20 03/07/21 Ondansetron Odt [Zofran Odt] 8 mg PO Q8HR PRN 09/14/20 03/07/21 Venlafaxine HCl [Effexor XR] 225 mg PO DAILY 09/14/20 03/07/21 Erenumab-Aooe [Aimovig 140 mg SQ Q30D 09/22/20 03/07/21 Autoinjector] Ergocalciferol [Vitamin D2 (1250 1,250 mcg PO GARCIA 09/22/20 03/07/21 Mcg = 88270 Iu)] Empagliflozin [Jardiance] 25 mg PO DAILY 11/12/20 03/07/21 Rizatriptan Odt [Maxalt Sample Wrapper] 10 mg PO DAILY PRN 11/12/20 03/07/21 metFORMIN HCL [Glucophage] 1,000 mg PO BID 11/12/20 03/07/21 Amitriptyline HCl [Elavil] 10 mg PO HS 03/07/21 03/07/21 Allergies Allergy/AdvReac Type Severity Reaction Status Date / Time codeine Allergy Hallucinati Verified 04/29/21 15:29 ons tramadol Allergy Hallucinati Verified 04/29/21 15:29 ons valacyclovir HCl AdvReac BLURRED Verified 04/29/21 15:29 [From Valtrex] VISION Review of Systems ROS Other: All systems not noted in ROS Statement are negative. <Casie Inman - Last Filed: 04/29/21 23:46> ROS Other: All systems not noted in ROS Statement are negative. <Cat Flores - Last Filed: 05/04/21 00:24> ROS Statement: Those systems with pertinent positive or pertinent negative responses have been documented in the HPI. Past Medical History Past Medical History: Asthma, Diabetes Mellitus, Fibromyalgia, GERD/Reflux, Sleep Apnea/CPAP/BIPAP, Thyroid Disorder Additional Past Medical History / Comment(s): Migraines, DDD , IBS, NO CPAP used. HX PERFORATED DIVERTICULITIS, internal abd hematoma, seasonal allergies, History of Any Multi-Drug Resistant Organisms: None Reported Past Surgical History: Bowel Resection, Breast Surgery, Cholecystectomy, Hernia Repair Additional Past Surgical History / Comment(s): Rt Breast biopsy. bowel resection with Colostomy/ later colostomy Reversal, abdominal surgery to remove scar tissue. Past Anesthesia/Blood Transfusion Reactions: No Reported Reaction Past Psychological History: Anxiety, Bipolar, Depression Smoking Status: Never smoker Past Alcohol Use History: None Reported Past Drug Use History: None Reported - Past Family History Mother History Unknown: Yes Family Medical History: No Reported History Additional Family Medical History / Comment(s): . Brother(s) Family Medical History: Diabetes Mellitus Father Family Medical History: Unable to Obtain <Casie Inman - Last Filed: 04/29/21 23:46> General Exam Limitations: no limitations (Well-developed, well-nourished female. Appears uncomfortable but is in no acute distress. Initial temperature 98.1, pulse 79, respirations 18, blood pressure 139/86, pulse ox 97% on room air.) General appearance: alert, in no apparent distress Head exam: Present: atraumatic, normocephalic, normal inspection Eye exam: Present: normal appearance, PERRL, EOMI. Absent: scleral icterus, conjunctival injection, periorbital swelling Neck exam: Present: normal inspection. Absent: tenderness, meningismus, lymphadenopathy Respiratory exam: Present: normal lung sounds bilaterally. Absent: respiratory distress, wheezes, rales, rhonchi, stridor Cardiovascular Exam: Present: regular rate, normal rhythm, normal heart sounds. Absent: systolic murmur, diastolic murmur, rubs, gallop, clicks GI/Abdominal exam: Present: soft, normal bowel sounds. Absent: distended, tenderness, guarding, rebound, rigid Neurological exam: Present: alert, oriented X3, CN II-XII intact Expanded Patient oriented to: Present: person, place, time Speech: Present: fluid speech Cranial nerves: EOM's Intact: Normal Motor strength exam: RUE: 5, LUE: 5, RLE: 5, LLE: 5 Eye Response: (4) open spontaneously Motor Response: (6) obeys commands Verbal Response: (5) oriented Psychiatric exam: Present: normal affect, normal mood Skin exam: Present: warm, dry, intact, normal color. Absent: rash <Casie Inman - Last Filed: 04/29/21 23:46> Course Vital Signs 04/29/21 04/29/21 15:27 22:32 Temperature 98.1 F Pulse Rate 79 85 Respiratory 16 17 Rate Blood Pressure 139/86 131/80 O2 Sat by Pulse 97 97 Oximetry Medical Decision Making <Casie Inman - Last Filed: 04/29/21 23:46> <Cat Flores - Last Filed: 05/04/21 00:24> - Medical Decision Making 36-year-old female with a history of chronic migraine headaches presents to the emergency department with complaints of 4 day history of migraine headache. Upon exam, patient does appear uncomfortable and is sensitive to light and sound. Vital signs are stable. Patient afebrile. Denies any injury or trauma. No focal neurological deficits appreciated. Current headache is consistent with pattern of previous headaches. Patient was given headache cocktail, IV fluids, and a dose of Dilaudid with significant improvement. Patient verbalizes readiness for discharge. States she will follow up with her neurologist and her PCP for recheck. Return parameters were discussed in detail. Patient verbalizes understanding and agrees with this plan. This patient's care was discussed with my attending Dr. Flores. (Casie Inman) I was available for consultation in the emergency department. The history and physical exam were done by the midlevel provider. I was consulted for this patients care. I reviewed the case with the midlevel provider and based on their presentation of the patient, I agree with the assessment, medical decision making and plan of care as documented. Chart was dictated using MOV[employer] dictation software. Attempts were made to correct any dictation errors however some typographical errors may persist. (Cat Flores) Disposition Is patient prescribed a controlled substance at d/c from ED?: No <Casie Inman - Last Filed: 04/29/21 23:46> <Cat Flores - Last Filed: 05/04/21 00:24> Clinical Impression: Migraine headache without aura Disposition: HOME SELF-CARE Condition: Stable Instructions (If sedation given, give patient instructions): Migraine Headache (ED) Additional Instructions: Continue your regular home medication regimen. Follow-up with your neurologist for further evaluation and treatment. See your PCP for recheck as needed. Return to the emergency department for any new, worsening, or concerning symptoms. Referrals: Edgardo Inman MD [Primary Care Provider] - 1-2 days
[2021-04-29] MEDS ORDERED: HYDROmorphone 1 MG/ML 1 ML SYRINGE IVP STA (21:18)
[2021-04-29 22:34] VITALS: BP 131/80; PULSE 85; RESP 17
== END 2021-04-29 22:32 | disposition home or self-care (01) ==
LOC: EC 13:37
DX: G43.909 Migraine, unspecified, not intractable, without status migrainosus (principal); J45.909 Unspecified asthma, uncomplicated; E11.9 Type 2 diabetes mellitus without complications; M79.7 Fibromyalgia; K21.9 Gastro-esophageal reflux disease without esophagitis; E07.9 Disorder of thyroid, unspecified; F41.9 Anxiety disorder, unspecified; F31.9 Bipolar disorder, unspecified; Z79.84 Long term (current) use of oral hypoglycemic drugs; Z88.1 Allergy status to other antibiotic agents; Z88.5 Allergy status to narcotic agent; Z90.49 Acquired absence of other specified parts of digestive tract
CPT/HCPCS: 99283; 96374; 96375 ×3; 96361; J1200; J2765; J1170; J1885

== ENCOUNTER → 2021-06-10 | Outpatient (CLI) | payer OTHER ==
[2021-06-10 10:38] VITALS: BP 110/77; PULSE 79; TEMP 98.5; BMI 43.9
== END ==
LOC: BARWHC3 09:52
PROVIDERS: ATTEND Surgery
DX: E66.01 Morbid (severe) obesity due to excess calories (principal); Z71.3 Dietary counseling and surveillance; Z68.41 Body mass index [BMI] 40.0-44.9, adult; Z88.5 Allergy status to narcotic agent; Z88.6 Allergy status to analgesic agent; Z88.8 Allergy status to other drugs, medicaments and biological substances
CPT/HCPCS: 99211

== ENCOUNTER → 2021-06-13 | Outpatient (CLI) | payer OTHER ==
[2021-06-13 13:32] VITALS: BP 119/75; PULSE 69; RESP 18; TEMP 98.3; BMI 43.9
--- NOTE | 2021-06-13 13:48 | P.HPBAR ---
Bariatric H&P - History & Physicial H&P Date: 06/13/21 History & Physicial: Visit/CC: follow up Patient initial contact: Initial weight: Initial weight in pounds: Height: 5 ft 7 in Initial BMI: Last weight: Current weight: 127.459 kg Current weight in pounds: 281.00 Current BMI: 43.9 [place] body weight (based on NIH guidelines): 61.235 kg Excess body weight loss: The patient is a 36 year-old F who presents for Bariatric Assessment. Patient presents today for [facility] follow-up. She is one-week status post sleeve gastrectomy. She is doing quite well. She has minimal complaints. Past Medical History Past Medical History: Asthma, Diabetes Mellitus, Fibromyalgia, GERD/Reflux, Sleep Apnea/CPAP/BIPAP, Thyroid Disorder Additional Past Medical History / Comment(s): Migraines, DDD , IBS, NO CPAP used. HX PERFORATED DIVERTICULITIS, internal abd hematoma, seasonal allergies History of Any Multi-Drug Resistant Organisms: None Reported Past Surgical History: Bariatric Surgery, Bowel Resection, Breast Surgery, Cholecystectomy, Hernia Repair Additional Past Surgical History / Comment(s): Rt Breast biopsy. bowel resection with Colostomy/ later colostomy Reversal, abdominal surgery to remove scar tissue. sleeve gastrectomy 06-06-21 Past Anesthesia/Blood Transfusion Reactions: No Reported Reaction Additional Past Anesthesia/Blood Transfusion Reaction / Comm: no hx blood transfusion, received monoclonal antibodies in Feb 2021 Smoking Status: Never smoker - Past Family History Mother History Unknown: Yes Family Medical History: No Reported History Additional Family Medical History / Comment(s): unk CA hx, unknown all medical dx, at age 55. Brother(s) Family Medical History: Diabetes Mellitus Father Family Medical History: Unable to Obtain Surgical - Exam Vital Signs Temp Pulse Resp BP 98.3 F 69 18 119/75 06/13/21 13:23 06/13/21 13:23 06/13/21 13:23 06/13/21 13:23 - General well developed, well nourished, no distress - Eyes PERRL - ENT normal pinna - Neck no masses - Respiratory normal expansion - Cardiovascular Rhythm: regular - Abdomen Abdomen: soft, non tender Bariatric Assessment & Plan Plan: Resolving morbid obesity. Patient will follow-up in 2 weeks. Bariatric Checklist Checklist: Plan: Checklist: EGD: 1. Hiatal hernia: 2. H. Pylori: HgbA1c: Vitamin D: Smoking: Never smoker Primary care physician referral: Dr. Alaniz Psychiatry clearance: Cardiology clearance: Sleep study: Diet journal: VTE risk score: VTE risk level: Rehab needs at discharge:
== END ==
LOC: BARWHC3 12:54
PROVIDERS: ATTEND Surgery
DX: E66.01 Morbid (severe) obesity due to excess calories (principal); J45.909 Unspecified asthma, uncomplicated; E11.9 Type 2 diabetes mellitus without complications; K21.9 Gastro-esophageal reflux disease without esophagitis; G43.909 Migraine, unspecified, not intractable, without status migrainosus; Z68.41 Body mass index [BMI] 40.0-44.9, adult; Z79.899 Other long term (current) drug therapy; Z98.84 Bariatric surgery status; Z88.5 Allergy status to narcotic agent; Z88.6 Allergy status to analgesic agent; Z88.8 Allergy status to other drugs, medicaments and biological substances
CPT/HCPCS: 97803; G0463; 99211

== ENCOUNTER → 2021-06-21 | Outpatient (CLI) | payer OTHER ==
[2021-06-21 14:44] LABS: HCT 43.3 % (37.2-46.3); HGB 12.8 g/dL (12.0-15.0); MCH 24.1 pg (27.0-32.0); MCHC 29.6 g/dL (32.0-37.0); MCV 81.5 fL (80.0-97.0); Mean Platelet Volume 11.7 fL (9.5-12.2); NRBC Per 100 WBC 0 /100 WBCS (0.0-0.0); Platelet Count 403 X 10*3/uL (140-440); RBC 5.31 X 10*6/uL (4.10-5.20); RDW 17.5 % (11.5-14.5); WBC 7.66 X 10*3/uL (4.50-10.00)
[2021-06-21 15:26] LABS: Folate, Serum 11.7 ng/mL (4.40-31.00)
[2021-06-21 15:41] LABS: % Iron Saturation 13.56 (12.00-45.00); BUN/Creat Ratio 13.15 Ratio (12.00-20.00); Globulin 3.2 g/dL (1.6-3.3)
[2021-06-21 15:42] LABS: African American GFR (CKD) 99.5 (60.0-200.0); Albumin 4.5 g/dL (3.8-4.9); Albumin/Globulin Ratio 1.39 (1.60-3.17); Anion Gap 16.5 mmol/L (10.00-18.00); Blood Urea Nitrogen 11.3 mg/dL (9.0-27.0); Calcium 9.9 mg/dL (8.7-10.3); Ferritin 21.8 ng/mL (10.0-291.0); Magnesium 1.8 mg/dL (1.5-2.4); Non-African American GFR(CKD) 85.8 (60.0-200.0); Potassium 4.1 mmol/L (3.5-5.5); Total Bilirubin 0.3 mg/dL (0.30-1.20); Total Protein 7.7 g/dL (6.2-8.2)
[2021-06-22 13:03] LABS: Zinc, Serum 84 ug/dL (60-130)
[2021-06-23 08:18] LABS: Vit B1(Thiamine) 62 ug/L (38-122)
[2021-06-23 10:44] LABS: Vitamin A 52 ug/dL (38-106)
== END | disposition home or self-care (01) ==
LOC: LABWHC1 10:39
PROVIDERS: ATTEND Surgery
DX: E66.01 Morbid (severe) obesity due to excess calories (principal); D50.8 Other iron deficiency anemias; E55.9 Vitamin D deficiency, unspecified; T56.894A Toxic effect of other metals, undetermined, initial encounter; K90.9 Intestinal malabsorption, unspecified
CPT/HCPCS: 36415; 80053; 82306; 82607; 82728; 82746; 83540; 83550; 83735; 84255; 84425; 84443; 84590; 84630; 85027

== ENCOUNTER → 2021-06-27 | Outpatient (CLI) | payer OTHER ==
[2021-06-27 13:46] VITALS: BP 118/76; PULSE 68; RESP 18; TEMP 98.4; BMI 42.5
--- NOTE | 2021-06-27 16:09 | P.HPBAR ---
Bariatric H&P - History & Physicial H&P Date: 06/27/21 History & Physicial: Visit/CC: follow up Patient initial contact: Initial weight: 312 kg Initial weight in pounds: 687.84 Height: 5 ft 7 in Initial BMI: 107.7 Last weight: Current weight: 123.377 kg Current weight in pounds: 272.00 Current BMI: 42.5 [place] body weight (based on NIH guidelines): 61.235 kg Excess body weight loss: 75.2% The patient is a 36 year-old F who presents for Bariatric Assessment. Patient presents today for bariatric follow up. She's had some minimal GERD. She denies any dysphagia. Past Medical History Past Medical History: Asthma, Diabetes Mellitus, Fibromyalgia, GERD/Reflux, Sleep Apnea/CPAP/BIPAP, Thyroid Disorder Additional Past Medical History / Comment(s): Migraines, DDD , IBS, NO CPAP used. HX PERFORATED DIVERTICULITIS, internal abd hematoma, seasonal allergies History of Any Multi-Drug Resistant Organisms: None Reported Past Surgical History: Bariatric Surgery, Bowel Resection, Breast Surgery, Cholecystectomy, Hernia Repair Additional Past Surgical History / Comment(s): Rt Breast biopsy. bowel resection with Colostomy/ later colostomy Reversal, abdominal surgery to remove scar tissue. sleeve gastrectomy 06-06-21 Past Anesthesia/Blood Transfusion Reactions: No Reported Reaction Additional Past Anesthesia/Blood Transfusion Reaction / Comm: no hx blood transfusion, received monoclonal antibodies in Feb 2021 Past Psychological History: Anxiety, Bipolar, Depression Additional Psychological History / Comment(s): eating disorder-binge eater, borderline personality disorder Smoking Status: Never smoker Past Alcohol Use History: None Reported Past Drug Use History: None Reported - Past Family History Mother History Unknown: Yes Family Medical History: No Reported History Additional Family Medical History / Comment(s): unk CA hx, unknown all medical dx, at age 55. Brother(s) Family Medical History: Diabetes Mellitus Father Family Medical History: Unable to Obtain Surgical - Exam Vital Signs Temp Pulse Resp BP 98.4 F 68 18 118/76 06/27/21 13:41 06/27/21 13:41 06/27/21 13:41 06/27/21 13:41 - General well developed, well nourished, no distress - Eyes PERRL - ENT normal pinna - Neck no masses - Respiratory normal expansion - Cardiovascular Rhythm: regular - Abdomen Abdomen: soft, non tender Bariatric Assessment & Plan Plan: Status post sleeve gastric. Patient is doing quite well. Her GERD is minimal will be observed. She'll follow-up in 4 weeks. Bariatric Checklist Checklist: Plan: Checklist: EGD: 1. Hiatal hernia: 2. H. Pylori: HgbA1c: Vitamin D: Smoking: Never smoker Primary care physician referral: Dr. Alaniz Psychiatry clearance: Cardiology clearance: Sleep study: Diet journal: VTE risk score: VTE risk level: Rehab needs at discharge:
== END ==
LOC: BARWHC3 12:46
PROVIDERS: ATTEND Surgery
DX: Z09 Encounter for follow-up examination after completed treatment for conditions other than malignant neoplasm (principal); K21.9 Gastro-esophageal reflux disease without esophagitis; Z98.84 Bariatric surgery status; J45.909 Unspecified asthma, uncomplicated; E11.9 Type 2 diabetes mellitus without complications; G43.909 Migraine, unspecified, not intractable, without status migrainosus; F41.9 Anxiety disorder, unspecified; F31.9 Bipolar disorder, unspecified; Z88.5 Allergy status to narcotic agent; Z88.6 Allergy status to analgesic agent; Z88.1 Allergy status to other antibiotic agents
CPT/HCPCS: 99211

== ENCOUNTER 2021-07-09 15:45 | Emergency (ER) | payer OTHER ==
[2021-07-09 15:48] VITALS: TEMP 98.5
--- NOTE | 2021-07-09 16:38 | ED ---
Headache HPI - General Chief Complaint: Headache Stated Complaint: headache Time Seen by Provider: 07/09/21 16:07 Source: patient, RN notes reviewed, old records reviewed Mode of arrival: ambulatory Limitations: no limitations - History of Present Illness Initial Comments: 28-year-old female history of migraine headaches who states she's had a headache for the past for 5 days right-sided typical of her migraines 10 out of 10 pain. Pain is typical of her migraine headache. She does have photophobia She states she tried her usual pain medication at home without relief she is nauseated but no vomiting no focal weakness no other complains modifying factors MD Complaint: headache - Related Data Home Medications Medication Instructions Recorded Confirmed Levothyroxine Sodium [Synthroid] 50 mcg PO DAILY 05/05/14 07/09/21 Topiramate [Trokendi Xr] 200 mg PO DAILY 07/19/17 07/09/21 Cetirizine HCl [Zyrtec] 10 mg PO DAILY 08/30/19 07/09/21 Pregabalin [Lyrica] 150 mg PO BID 08/30/19 07/09/21 HYDROcodone/APAP 7.5-325MG [[place] 1 tab PO BID PRN 08/10/20 07/09/21 7.5-325] ARIPiprazole [Abilify] 2 mg PO HS 09/14/20 07/09/21 Ondansetron Odt [Zofran ODT] 8 mg PO Q8HR PRN 09/14/20 07/09/21 Venlafaxine HCl [Effexor XR] 225 mg PO HS 09/14/20 07/09/21 Erenumab-Aooe [Aimovig 140 mg SQ Q30D 09/22/20 07/09/21 Autoinjector] Ergocalciferol [Vitamin D2 (1250 1,250 mcg PO GARCIA 09/22/20 07/09/21 Mcg = 25700 Iu)] Rizatriptan Odt [Maxalt TURBINE ATTENDANT] 10 mg PO DAILY PRN 11/12/20 07/09/21 Amitriptyline HCl [Elavil] 10 mg PO HS 03/07/21 07/09/21 rOPINIRole HCL [Requip] 1 mg PO HS 05/31/21 07/09/21 Albuterol Sulfate [Ventolin HFA] 2 puff INHALATION RT-Q6H PRN 07/09/21 07/09/21 Famotidine 40 mg PO DAILY 07/09/21 07/09/21 Norethindrone-E.estradiol-Iron 1 tab PO HS 07/09/21 07/09/21 [Junel Fe 1.5 mg-30 Mcg Tablet] Nystatin/Triamcin 1 applicate TOPICAL DAILY PRN 07/09/21 07/09/21 [Nystatin-Triamcinolone] rOPINIRole HCL [Requip] 2 mg PO DAILY 07/09/21 07/09/21 Previous Rx's Medication Instructions Recorded Simethicone 40 mg/0.6 ml Drops 40 mg PO PCHS PRN #30 ml 06/07/21 [Mylicon Drops] bisacodyL [Dulcolax] 5 mg PO DAILY PRN #10 tab 06/07/21 Allergies Allergy/AdvReac Type Severity Reaction Status Date / Time codeine Allergy Hallucinati Verified 07/09/21 17:23 ons tramadol Allergy Hallucinati Verified 07/09/21 17:23 ons valacyclovir HCl AdvReac BLURRED Verified 07/09/21 17:23 [From Valtrex] VISION Review of Systems ROS Statement: Those systems with pertinent positive or pertinent negative responses have been documented in the HPI. ROS Other: All systems not noted in ROS Statement are negative. Past Medical History Past Medical History: Asthma, Diabetes Mellitus, Fibromyalgia, GERD/Reflux, Sleep Apnea/CPAP/BIPAP, Thyroid Disorder Additional Past Medical History / Comment(s): Migraines, DDD , IBS, NO CPAP used . HX PERFORATED DIVERTICULITIS, internal abd hematoma, seasonal allergies History of Any Multi-Drug Resistant Organisms: None Reported Past Surgical History: Bariatric Surgery, Bowel Resection, Breast Surgery, Cholecystectomy, Hernia Repair Additional Past Surgical History / Comment(s): Rt Breast biopsy. bowel resection with Colostomy/ later colostomy Reversal, abdominal surgery to remove scar tissue. sleeve gastrectomy 06-06-21 Past Anesthesia/Blood Transfusion Reactions: No Reported Reaction Additional Past Anesthesia/Blood Transfusion Reaction / Comment(s): no hx blood transfusion, received monoclonal antibodies in Feb 2021 Past Psychological History: Anxiety, Bipolar, Depression Smoking Status: Never smoker Past Alcohol Use History: None Reported Past Drug Use History: None Reported - Past Family History Mother History Unknown: Yes Family Medical History: No Reported History Additional Family Medical History / Comment(s): unk CA hx, unknown all medical dx, at age 55. Brother(s) Family Medical History: Diabetes Mellitus Father Family Medical History: Unable to Obtain General Exam - General Exam Comments Initial Comments: This is a well-developed well-nourished awake alert oriented 3 female Limitations: no limitations General appearance: alert, anxious Head exam: Present: atraumatic, normocephalic, normal inspection Eye exam: Present: normal appearance, PERRL, EOMI. Absent: scleral icterus, conjunctival injection, periorbital swelling ENT exam: Present: normal exam, mucous membranes moist Neck exam: Present: normal inspection. Absent: tenderness, meningismus, lymphadenopathy Respiratory exam: Present: normal lung sounds bilaterally. Absent: respiratory distress, wheezes, rales, rhonchi, stridor Cardiovascular Exam: Present: regular rate, normal rhythm, normal heart sounds. Absent: systolic murmur, diastolic murmur, rubs, gallop, clicks GI/Abdominal exam: Present: soft, normal bowel sounds. Absent: distended, tenderness, guarding, rebound, rigid Extremities exam: Present: normal inspection, full ROM, normal capillary refill. Absent: tenderness, pedal edema, joint swelling, calf tenderness Back exam: Present: normal inspection Neurological exam: Present: alert, oriented X3, CN II-XII intact Psychiatric exam: Present: normal affect, normal mood Skin exam: Present: warm, dry, intact, normal color. Absent: rash Course Vital Signs 07/09/21 15:46 Temperature 98.5 F Pulse Rate 65 Respiratory 20 Rate Blood Pressure 132/82 O2 Sat by Pulse 98 Oximetry Medical Decision Making - Medical Decision Making The patient finally get much relief Disposition Clinical Impression: Migraine headache Disposition: HOME SELF-CARE Condition: Good Instructions (If sedation given, give patient instructions): Acute Headache (ED) Is patient prescribed a controlled substance at d/c from ED?: No Referrals: Edgardo Inman MD [Primary Care Provider] - 1-2 days
[2021-07-09] MEDS: KETOROLAC 15 MG/ML 1 ML VIAL IVP STA (16:41)
[2021-07-09] MEDS: METOCLOPRAMIDE 5 MG/ML 2 ML VIAL IVP STA (16:41)
[2021-07-09] MEDS: diphenhydrAMINE 50 MG/ML 1 ML VIAL IVP STA (16:41)
[2021-07-09] MEDS: HYDROmorphone 1 MG/ML 1 ML SYRINGE IVP STA (19:33)
[2021-07-09 20:03] VITALS: RESP 18
[2021-07-09 21:17] VITALS: BP 141/78; PULSE 88
[2021-07-10] MEDS ORDERED: DEXAMETHASONE SOD PHOSPHATE 10 MG/ML 1 ML VIAL IVP SCH (09:00)
== END 2021-07-09 21:17 | disposition home or self-care (01) ==
LOC: EC 15:45
DX: G43.909 Migraine, unspecified, not intractable, without status migrainosus (principal); J45.909 Unspecified asthma, uncomplicated; E11.9 Type 2 diabetes mellitus without complications; K21.9 Gastro-esophageal reflux disease without esophagitis; Z79.51 Long term (current) use of inhaled steroids; F41.9 Anxiety disorder, unspecified; F31.9 Bipolar disorder, unspecified
CPT/HCPCS: 99283; 96374; 96375 ×3; J1200; J2765; J1170; J1885

== ENCOUNTER → 2021-07-11 | Outpatient (CLI) | payer OTHER ==
[2021-07-11 14:03] VITALS: BP 133/77; PULSE 56; TEMP 98; BMI 42.0
--- NOTE | 2021-07-18 15:30 | P.HPBAR ---
Bariatric H&P - History & Physicial H&P Date: 07/11/21 History & Physicial: Visit/CC: one month follow up Patient initial contact: Initial weight: 312 kg Initial weight in pounds: 687.84 Height: 5 ft 7 in Initial BMI: 107.7 Last weight: Current weight: 121.563 kg Current weight in pounds: 268.00 Current BMI: 42.0 [place] body weight (based on NIH guidelines): 61.235 kg Excess body weight loss: 75.9% The patient is a 36 year-old F who presents for Bariatric Assessment. Patient presents today for bariatric follow-up. She is been successfully losing weight. She said some minimal GERD. Past Medical History Past Medical History: Asthma, Diabetes Mellitus, Fibromyalgia, GERD/Reflux, Sleep Apnea/CPAP/BIPAP, Thyroid Disorder Additional Past Medical History / Comment(s): Migraines, DDD , IBS, NO CPAP used. HX PERFORATED DIVERTICULITIS, internal abd hematoma, seasonal allergies History of Any Multi-Drug Resistant Organisms: None Reported Past Surgical History: Bariatric Surgery, Bowel Resection, Breast Surgery, Cholecystectomy, Hernia Repair Additional Past Surgical History / Comment(s): Rt Breast biopsy. bowel resection with Colostomy/ later colostomy Reversal, abdominal surgery to remove scar tissue. sleeve gastrectomy 06-06-21 Past Anesthesia/Blood Transfusion Reactions: No Reported Reaction Additional Past Anesthesia/Blood Transfusion Reaction / Comm: no hx blood transfusion, received monoclonal antibodies in Feb 2021 Past Psychological History: Anxiety, Bipolar, Depression Additional Psychological History / Comment(s): eating disorder-binge eater, borderline personality disorder Smoking Status: Never smoker Past Alcohol Use History: None Reported Past Drug Use History: None Reported - Past Family History Mother History Unknown: Yes Family Medical History: No Reported History Additional Family Medical History / Comment(s): unk CA hx, unknown all medical dx, at age 55. Brother(s) Family Medical History: Diabetes Mellitus Father Family Medical History: Unable to Obtain Surgical - Exam Vital Signs Temp Pulse BP 98 F 56 L 133/77 07/11/21 14:01 07/11/21 14:01 07/11/21 14:01 - General well developed, well nourished, no distress - Eyes PERRL - ENT normal pinna - Neck no masses, no bruits - Respiratory normal expansion - Cardiovascular Rhythm: regular - Abdomen Abdomen: soft, non tender Bariatric Assessment & Plan Plan: Status post sleeve gastric. Patient is doing quite well. His GERD is minimal and will be observed. She'll follow-up in 4 weeks. Bariatric Checklist Checklist: Plan: Checklist: EGD: 1. Hiatal hernia: 2. H. Pylori: HgbA1c: Vitamin D: Smoking: Never smoker Primary care physician referral: Dr. Alaniz Psychiatry clearance: Cardiology clearance: Sleep study: Diet journal: VTE risk score: VTE risk level: Rehab needs at discharge:
== END ==
LOC: BARWHC3 12:22
PROVIDERS: ATTEND Surgery
DX: Z09 Encounter for follow-up examination after completed treatment for conditions other than malignant neoplasm (principal); J45.909 Unspecified asthma, uncomplicated; E11.9 Type 2 diabetes mellitus without complications; G43.909 Migraine, unspecified, not intractable, without status migrainosus; Z98.84 Bariatric surgery status; F41.9 Anxiety disorder, unspecified; F31.9 Bipolar disorder, unspecified; Z88.5 Allergy status to narcotic agent; Z88.1 Allergy status to other antibiotic agents
CPT/HCPCS: 97803; G0463; 99211

== ENCOUNTER 2021-07-29 19:43 | Emergency (ER) | payer OTHER ==
[2021-07-29 20:53] VITALS: TEMP 97.8
[2021-07-30] MEDS ORDERED: diphenhydrAMINE 50 MG CAP PO STA (00:42)
[2021-07-30] MEDS ORDERED: IBUPROFEN 800 MG TAB PO STA (00:42)
[2021-07-30] MEDS ORDERED: PROCHLORPERAZINE 10 MG TAB PO STA (00:42)
[2021-07-30] MEDS ORDERED: HYDROmorphone 1 MG/ML 1 ML SYRINGE IM STA (00:42)
[2021-07-30 00:43] VITALS: BP 151/89; PULSE 61; RESP 18
--- NOTE | 2021-07-30 00:43 | ED ---
Headache HPI - General Chief Complaint: Headache Stated Complaint: Headache Mode of arrival: ambulatory - Related Data Home Medications Medication Instructions Recorded Confirmed Levothyroxine Sodium [Synthroid] 50 mcg PO DAILY 05/05/14 07/12/21 Topiramate [Trokendi Xr] 200 mg PO DAILY 07/19/17 07/12/21 Cetirizine HCl [Zyrtec] 10 mg PO DAILY 08/30/19 07/12/21 Pregabalin [Lyrica] 150 mg PO BID 08/30/19 07/12/21 ARIPiprazole [Abilify] 2 mg PO HS 09/14/20 07/12/21 Ondansetron Odt [Zofran ODT] 8 mg PO Q8HR PRN 09/14/20 07/12/21 Venlafaxine HCl [Effexor XR] 225 mg PO HS 09/14/20 07/12/21 Erenumab-Aooe [Aimovig 140 mg SQ Q30D 09/22/20 07/12/21 Autoinjector] Ergocalciferol [Vitamin D2 (1250 1,250 mcg PO GARCIA 09/22/20 07/12/21 Mcg = 46436 Iu)] Rizatriptan Odt [Maxalt BUSINESS CENTER REPRESENTATIVE] 10 mg PO DAILY PRN 11/12/20 07/12/21 Amitriptyline HCl [Elavil] 10 mg PO HS 03/07/21 07/12/21 rOPINIRole HCL [Requip] 1 mg PO HS 05/31/21 07/12/21 Albuterol Sulfate [Ventolin HFA] 2 puff INHALATION RT-Q6H PRN 07/09/21 07/12/21 Famotidine 40 mg PO DAILY 07/09/21 07/12/21 Norethindrone-E.estradiol-Iron 1 tab PO HS 07/09/21 07/12/21 [Junel Fe 1.5 mg-30 Mcg Tablet] Nystatin/Triamcin 1 applicate TOPICAL DAILY PRN 07/09/21 07/12/21 [Nystatin-Triamcinolone] rOPINIRole HCL [Requip] 2 mg PO DAILY 07/09/21 07/12/21 Allergies Allergy/AdvReac Type Severity Reaction Status Date / Time codeine Allergy Hallucinati Verified 07/09/21 17:23 ons tramadol Allergy Hallucinati Verified 07/09/21 17:23 ons valacyclovir HCl AdvReac BLURRED Verified 07/09/21 17:23 [From Valtrex] VISION Review of Systems ROS Statement: Those systems with pertinent positive or pertinent negative responses have been documented in the HPI. ROS Other: All systems not noted in ROS Statement are negative. Past Medical History Past Medical History: Asthma, Diabetes Mellitus, Fibromyalgia, GERD/Reflux, Sleep Apnea/CPAP/BIPAP, Thyroid Disorder Additional Past Medical History / Comment(s): Migraines, DDD , IBS, NO CPAP used. HX PERFORATED DIVERTICULITIS, internal abd hematoma, seasonal allergies History of Any Multi-Drug Resistant Organisms: None Reported Past Surgical History: Bariatric Surgery, Bowel Resection, Breast Surgery, Cholecystectomy, Hernia Repair Additional Past Surgical History / Comment(s): Rt Breast biopsy. bowel resection with Colostomy/ later colostomy Reversal, abdominal surgery to remove scar tissue. sleeve gastrectomy 06-06-21 Past Anesthesia/Blood Transfusion Reactions: No Reported Reaction Additional Past Anesthesia/Blood Transfusion Reaction / Comment(s): no hx blood transfusion, received monoclonal antibodies in Feb 2021 Past Psychological History: Anxiety, Bipolar, Depression Smoking Status: Never smoker Past Alcohol Use History: None Reported Past Drug Use History: None Reported - Past Family History Mother History Unknown: Yes Family Medical History: No Reported History Additional Family Medical History / Comment(s): unk CA hx, unknown all medical dx, at age 55. Brother(s) Family Medical History: Diabetes Mellitus Father Family Medical History: Unable to Obtain Course Vital Signs 07/29/21 07/30/21 20:48 00:42 Temperature 97.8 F Pulse Rate 52 L 61 Respiratory 19 18 Rate Blood Pressure 158/97 151/89 O2 Sat by Pulse 100 99 Oximetry Disposition Clinical Impression: Migraine headache Disposition: HOME SELF-CARE Condition: Good Instructions (If sedation given, give patient instructions): Acute Headache (ED) Is patient prescribed a controlled substance at d/c from ED?: No Referrals: Edgardo Inman MD [Primary Care Provider] - 1-2 days
== END 2021-07-30 03:00 | disposition home or self-care (01) ==
LOC: EC 19:43
DX: G43.909 Migraine, unspecified, not intractable, without status migrainosus (principal); J45.909 Unspecified asthma, uncomplicated; E11.9 Type 2 diabetes mellitus without complications; M79.7 Fibromyalgia; K21.9 Gastro-esophageal reflux disease without esophagitis; E07.9 Disorder of thyroid, unspecified; F41.9 Anxiety disorder, unspecified; F31.9 Bipolar disorder, unspecified; Z88.1 Allergy status to other antibiotic agents; Z88.5 Allergy status to narcotic agent; Z79.899 Other long term (current) drug therapy; Z98.84 Bariatric surgery status; Z90.49 Acquired absence of other specified parts of digestive tract
CPT/HCPCS: 99283; 96372; S0183; J1170

== ENCOUNTER → 2021-08-22 | Outpatient (CLI) | payer OTHER ==
[2021-08-22 13:53] VITALS: BP 130/85; PULSE 71; RESP 16; TEMP 98.2; BMI 39.7
--- NOTE | 2021-11-18 10:50 | P.HPBAR ---
Bariatric H&P - History & Physicial H&P Date: 08/22/21 History & Physicial: Visit/CC: 3 month sleeve f/u Patient initial contact: Initial weight: 312 kg Initial weight in pounds: 687.84 Height: 5 ft 7 in Initial BMI: 107.7 Last weight: Current weight: 115.212 kg Current weight in pounds: 254.00 Current BMI: 39.7 [place] body weight (based on NIH guidelines): 61.235 kg Excess body weight loss: 78.4% Patient is doing well. She is mildly The patient is a 36 year-old F who presents for Bariatric Assessment. Patient presents today for bariatric follow-up. Patient has mild complaints of GERD. She's had good weight loss. Past Medical History Past Medical History: Asthma, Diabetes Mellitus, Fibromyalgia, GERD/Reflux, Sleep Apnea/CPAP/BIPAP, Thyroid Disorder Additional Past Medical History / Comment(s): Migraines, DDD , IBS, NO CPAP used. HX PERFORATED DIVERTICULITIS, internal abd hematoma, seasonal allergies History of Any Multi-Drug Resistant Organisms: None Reported Past Surgical History: Bariatric Surgery, Bowel Resection, Breast Surgery, Cholecystectomy, Hernia Repair Additional Past Surgical History / Comment(s): Rt Breast biopsy. bowel resection with Colostomy/ later colostomy Reversal, abdominal surgery to remove scar tissue. sleeve gastrectomy 06-06-21 Past Anesthesia/Blood Transfusion Reactions: No Reported Reaction Additional Past Anesthesia/Blood Transfusion Reaction / Comm: no hx blood transfusion, received monoclonal antibodies in Feb 2021 Past Psychological History: Anxiety, Bipolar, Depression Additional Psychological History / Comment(s): eating disorder-binge eater, borderline personality disorder Smoking Status: Never smoker Past Alcohol Use History: None Reported Past Drug Use History: None Reported - Past Family History Mother History Unknown: Yes Family Medical History: No Reported History Additional Family Medical History / Comment(s): unk CA hx, unknown all medical dx, at age 55. Brother(s) Family Medical History: Diabetes Mellitus Father Family Medical History: Unable to Obtain Surgical - Exam Vital Signs Temp Pulse Resp BP 98.2 F 71 16 130/85 08/22/21 13:52 08/22/21 13:52 08/22/21 13:52 08/22/21 13:52 - General well developed, well nourished, no distress - Eyes PERRL - ENT normal pinna - Neck no masses - Respiratory normal expansion Bariatric Assessment & Plan Plan: Status post sleeve gastrectomy. Patient's GERD is minimal and will be observed. She'll follow-up in 4 weeks. Bariatric Checklist Checklist: Plan: Checklist: EGD: 1. Hiatal hernia: 2. H. Pylori: HgbA1c: Vitamin D: Smoking: Never smoker Primary care physician referral: Dr. Alaniz Psychiatry clearance: Cardiology clearance: Sleep study: Diet journal: VTE risk score: VTE risk level: Rehab needs at discharge:
== END ==
LOC: BARWHC3 13:36
PROVIDERS: ATTEND Surgery
DX: Z09 Encounter for follow-up examination after completed treatment for conditions other than malignant neoplasm (principal); J45.909 Unspecified asthma, uncomplicated; E11.9 Type 2 diabetes mellitus without complications; G43.909 Migraine, unspecified, not intractable, without status migrainosus; Z98.84 Bariatric surgery status; F41.9 Anxiety disorder, unspecified; F31.9 Bipolar disorder, unspecified; K21.9 Gastro-esophageal reflux disease without esophagitis; Z88.5 Allergy status to narcotic agent; Z88.1 Allergy status to other antibiotic agents
CPT/HCPCS: 99211

== ENCOUNTER 2021-08-23 16:18 | Observation (INO) | payer OTHER ==
[2021-08-23] MEDS ORDERED: SODIUM CHLORIDE 0.9% 1,000 ML IV STA (18:56)
[2021-08-23] MEDS ORDERED: diphenhydrAMINE 50 MG/ML 1 ML VIAL IVP STA (18:57)
[2021-08-23] MEDS ORDERED: METOCLOPRAMIDE 5 MG/ML 2 ML VIAL IVP STA (18:57)
--- NOTE | 2021-08-23 18:59 | ED ---
General Adult HPI - General Chief complaint: Neuro Symptoms/Deficit Stated complaint: Slurred speech Time Seen by Provider: 08/23/21 18:38 Source: patient, RN notes reviewed Mode of arrival: ambulatory Limitations: no limitations - History of Present Illness Initial comments: Patient is a pleasant 36-year-old female presenting to the emergency department with concerns with headache and slurred speech. Patient does have chronic headaches similar to this. Onset of headache was 3 days ago. Gradual onset and persistently worsening since that time. Discomfort is now 9/10. Patient has no some slurred speech over the past 48 hours. Originally this is intermittent however has started to progress today. No history of previous slurred speech. No photophobia. He should did have some nausea earlier. No fever. No weakness. - Related Data Home Medications Medication Instructions Recorded Confirmed Levothyroxine Sodium [Synthroid] 50 mcg PO DAILY 05/05/14 08/22/21 Topiramate [Trokendi Xr] 200 mg PO DAILY 07/19/17 08/22/21 Cetirizine HCl [Zyrtec] 10 mg PO DAILY 08/30/19 08/22/21 Pregabalin [Lyrica] 150 mg PO BID 08/30/19 08/22/21 ARIPiprazole [Abilify] 2 mg PO HS 09/14/20 08/22/21 Ondansetron Odt [Zofran ODT] 8 mg PO Q8HR PRN 09/14/20 08/22/21 Venlafaxine HCl [Effexor XR] 225 mg PO HS 09/14/20 08/22/21 Erenumab-Aooe [Aimovig 140 mg SQ Q30D 09/22/20 08/22/21 Autoinjector] Ergocalciferol [Vitamin D2 (1250 1,250 mcg PO GARCIA 09/22/20 08/22/21 Mcg = 23773 Iu)] Rizatriptan Odt [Maxalt CHARTER PILOT] 10 mg PO DAILY PRN 11/12/20 08/22/21 Amitriptyline HCl [Elavil] 10 mg PO HS 03/07/21 08/22/21 rOPINIRole HCL [Requip] 1 mg PO HS 05/31/21 08/22/21 Albuterol Sulfate [Ventolin HFA] 2 puff INHALATION RT-Q6H PRN 07/09/21 08/22/21 Famotidine 40 mg PO DAILY 07/09/21 08/22/21 Norethindrone-E.estradiol-Iron 1 tab PO HS 07/09/21 08/22/21 [Junel Fe 1.5 mg-30 Mcg Tablet] Nystatin/Triamcin 1 applicate TOPICAL DAILY PRN 07/09/21 08/22/21 [Nystatin-Triamcinolone] rOPINIRole HCL [Requip] 2 mg PO DAILY 07/09/21 08/22/21 Previous Rx's Medication Instructions Recorded Acetaminophen [Tylenol] 500 mg PO Q4-6H PRN #24 tab 08/16/21 Naproxen [Naprosyn] 375 mg PO Q12HR PRN #20 tablet 08/16/21 Allergies Allergy/AdvReac Type Severity Reaction Status Date / Time codeine Allergy Hallucinati Verified 08/23/21 16:23 ons tramadol Allergy Hallucinati Verified 08/23/21 16:23 ons valacyclovir HCl AdvReac BLURRED Verified 08/23/21 16:23 [From Valtrex] VISION Review of Systems ROS Statement: Those systems with pertinent positive or pertinent negative responses have been documented in the HPI. ROS Other: All systems not noted in ROS Statement are negative. Constitutional: Denies: fever Eyes: Denies: eye pain ENT: Denies: ear pain Respiratory: Denies: cough Cardiovascular: Denies: chest pain Endocrine: Denies: fatigue Gastrointestinal: Denies: abdominal pain Genitourinary: Denies: dysuria Musculoskeletal: Denies: back pain Skin: Denies: lesions Neurological: Reports: headache (Posterior, similar to previous chronic headaches) Past Medical History Past Medical History: Asthma, Diabetes Mellitus, Fibromyalgia, GERD/Reflux, Sleep Apnea/CPAP/BIPAP, Thyroid Disorder Additional Past Medical History / Comment(s): Migraines, DDD , IBS, NO CPAP used. HX PERFORATED DIVERTICULITIS, internal abd hematoma, seasonal allergies History of Any Multi-Drug Resistant Organisms: None Reported Past Surgical History: Bariatric Surgery, Bowel Resection, Breast Surgery, Cholecystectomy, Hernia Repair Additional Past Surgical History / Comment(s): Rt Breast biopsy. bowel resection with Colostomy/ later colostomy Reversal, abdominal surgery to remove scar tissue. sleeve gastrectomy 06-06-21 Past Anesthesia/Blood Transfusion Reactions: No Reported Reaction Additional Past Anesthesia/Blood Transfusion Reaction / Comment(s): no hx blood transfusion, received monoclonal antibodies in Feb 2021 Past Psychological History: Anxiety, Bipolar, Depression Smoking Status: Never smoker Past Alcohol Use History: None Reported Past Drug Use History: None Reported - Past Family History Mother History Unknown: Yes Family Medical History: No Reported History Additional Family Medical History / Comment(s): unk CA hx, unknown all medical dx, at age 55. Brother(s) Family Medical History: Diabetes Mellitus Father Family Medical History: Unable to Obtain General Exam Limitations: no limitations General appearance: alert, in no apparent distress Head exam: Present: normocephalic Eye exam: Present: normal appearance, PERRL, EOMI. Absent: nystagmus ENT exam: Present: normal oropharynx Neck exam: Present: normal inspection. Absent: tenderness Respiratory exam: Present: normal lung sounds bilaterally Cardiovascular Exam: Present: regular rate, normal rhythm GI/Abdominal exam: Present: soft. Absent: tenderness Extremities exam: Present: normal inspection Neurological exam: Present: alert, oriented X3, CN II-XII intact. Absent: motor sensory deficit Expanded Neurological exam: Present: protecting the airway, other (Patient does have occasional slurred words, approximately 3-4 times throughout evaluation) Cranial nerves: EOM's Intact: Normal, Facial Sensation: Normal Sensory exam: Upper Extremity Light Touch: Normal, Lower Extremity Light Touch: Normal Motor strength exam: RUE: 5, LUE: 5, RLE: 5, LLE: 5 Eye Response: (4) open spontaneously Motor Response: (6) obeys commands Verbal Response: (5) oriented Psychiatric exam: Present: normal affect, normal mood Skin exam: Present: normal color Course Vital Signs 08/23/21 08/23/21 16:21 19:41 Temperature 98.5 F Pulse Rate 68 60 Respiratory 20 18 Rate Blood Pressure 130/83 117/79 O2 Sat by Pulse 100 97 Oximetry EKG Findings - EKG Comments: EKG Findings:: Sinus rhythm with a rate of 62. 168. QRS 11. QT 408. QTC 414. Left axis. Low QRS voltage. No acute ST change. Medical Decision Making - Medical Decision Making Patient reevaluated without much change in her reported symptoms. Patient updated on results and plan. Case was discussed with Dr. Clinton, who will admit covering Dr. Inman - Lab Data Result diagrams: 08/23/21 19:16 08/23/21 19:16 Lab Results 08/23/21 08/23/21 08/23/21 Range/Units 19:16 19:16 19:16 WBC 6.7 (3.8-10.6) k/uL RBC 4.94 (3.80-5.40) m/uL Hgb 13.1 (11.4-16.0) gm/dL Hct 41.8 (34.0-46.0) % MCV 84.7 (80.0-100.0) fL MCH 26.5 (25.0-35.0) pg MCHC 31.3 (31.0-37.0) g/dL RDW 16.5 H (11.5-15.5) % Plt Count 354 (150-450) k/uL MPV 7.8 Neutrophils % 55 % Lymphocytes % 37 % Monocytes % 4 % Eosinophils % 2 % Basophils % 1 % Neutrophils # 3.7 (1.3-7.7) k/uL Lymphocytes # 2.4 (1.0-4.8) k/uL Monocytes # 0.3 (0-1.0) k/uL Eosinophils # 0.1 (0-0.7) k/uL Basophils # 0.0 (0-0.2) k/uL Hypochromasia Slight Anisocytosis Slight PT 10.6 (9.0-12.0) sec INR 1.0 (<1.2) APTT 25.4 (22.0-30.0) sec Sodium 138 (137-145) mmol/L Potassium 4.0 (3.5-5.1) mmol/L Chloride 108 H (98-107) mmol/L Carbon Dioxide 24 (22-30) mmol/L Anion Gap 6 mmol/L BUN 13 (7-17) mg/dL Creatinine 0.69 (0.52-1.04) mg/dL Est GFR (CKD-EPI)AfAm >90 (>60 ml/min/1.73 sqM) Est GFR (CKD-EPI)NonAf >90 (>60 ml/min/1.73 sqM) Glucose 97 (74-99) mg/dL Calcium 9.0 (8.4-10.2) mg/dL Total Bilirubin 0.4 (0.2-1.3) mg/dL AST 30 (14-36) U/L ALT 36 H (4-34) U/L Alkaline Phosphatase 84 (38-126) U/L Troponin I (0.000-0.034) ng/mL Total Protein 7.3 (6.3-8.2) g/dL Albumin 4.0 (3.5-5.0) g/dL 08/23/21 Range/Units 19:16 WBC (3.8-10.6) k/uL RBC (3.80-5.40) m/uL Hgb (11.4-16.0) gm/dL Hct (34.0-46.0) % MCV (80.0-100.0) fL MCH (25.0-35.0) pg MCHC (31.0-37.0) g/dL RDW (11.5-15.5) % Plt Count (150-450) k/uL MPV Neutrophils % % Lymphocytes % % Monocytes % % Eosinophils % % Basophils % % Neutrophils # (1.3-7.7) k/uL Lymphocytes # (1.0-4.8) k/uL Monocytes # (0-1.0) k/uL Eosinophils # (0-0.7) k/uL Basophils # (0-0.2) k/uL Hypochromasia Anisocytosis PT (9.0-12.0) sec INR (<1.2) APTT (22.0-30.0) sec Sodium (137-145) mmol/L Potassium (3.5-5.1) mmol/L Chloride (98-107) mmol/L Carbon Dioxide (22-30) mmol/L Anion Gap mmol/L BUN (7-17) mg/dL Creatinine (0.52-1.04) mg/dL Est GFR (CKD-EPI)AfAm (>60 ml/min/1.73 sqM) Est GFR (CKD-EPI)NonAf (>60 ml/min/1.73 sqM) Glucose (74-99) mg/dL Calcium (8.4-10.2) mg/dL Total Bilirubin (0.2-1.3) mg/dL AST (14-36) U/L ALT (4-34) U/L Alkaline Phosphatase (38-126) U/L Troponin I <0.012 (0.000-0.034) ng/mL Total Protein (6.3-8.2) g/dL Albumin (3.5-5.0) g/dL - Radiology Data Radiology results: report reviewed (CT brain shows no acute process. CTA), image reviewed (Chest x-ray shows no acute process) Disposition Clinical Impression: Cephalgia, Slurred speech Disposition: ADMITTED IP TO THIS HOSP Is patient prescribed a controlled substance at d/c from ED?: No Referrals: Edgardo Inman MD [Primary Care Provider] - 1-2 days Decision Time: 20:44
[2021-08-23 19:26] LABS: Anisocytosis Slight; Basophils % (A) 1 %; Eosinophils # (A) 0.1 k/uL (0-0.7); Eosinophils % (A) 2 %; HCT 41.8 % (34.0-46.0); HGB 13.1 gm/dL (11.4-16.0); Hypochromasia Slight; Lymphocytes # (A) 2.4 k/uL (1.0-4.8); Lymphocytes % (A) 37 %; MCH 26.5 pg (25.0-35.0); MCHC 31.3 g/dL (31.0-37.0); MCV 84.7 fL (80.0-100.0); Mean Platelet Volume 7.8; Monocytes # (A) 0.3 k/uL (0-1.0); Monocytes % (A) 4 %; Neutrophils # (A) 3.7 k/uL (1.3-7.7); Neutrophils % (A) 55 %; Platelet Count 354 k/uL (150-450); RBC 4.94 m/uL (3.80-5.40); RDW 16.5 % (11.5-15.5); WBC 6.7 k/uL (3.8-10.6)
[2021-08-23 19:35] LABS: ALT 36 U/L (4-34); AST 30 U/L (14-36); African American GFR (CKD) >90 (>60 ml/min/1.73 sqM); Alkaline Phosphatase 84 U/L (38-126); Anion Gap 6 mmol/L; Blood Urea Nitrogen 13 mg/dL (7-17); Carbon Dioxide 24 mmol/L (22-30); Chloride 108 mmol/L (98-107); Glucose 97 mg/dL (74-99); Non-African American GFR(CKD) >90 (>60 ml/min/1.73 sqM); Sodium 138 mmol/L (137-145); Total Bilirubin 0.4 mg/dL (0.2-1.3); Total Protein 7.3 g/dL (6.3-8.2)
[2021-08-23 19:38] LABS: Partial Thromboplastin Time 25.4 sec (22.0-30.0); Prothrombin Time 10.6 sec (9.0-12.0)
--- NOTE | 2021-08-23 20:21 | CT ---
EXAMINATION TYPE: CT brain wo con DATE OF EXAM: 08/23/2021 COMPARISON: 06/28/2020 HISTORY: Slurred speech. CT DLP: 1083.8 mGycm Automated exposure control for dose reduction was used. Ventricles have normal size. There is no mass effect nor midline shift. There is no sign of intracran ial hemorrhage. Calvarium is intact. There is normal aeration of the mastoid sinuses. IMPRESSION: Negative unenhanced head CT scan. No adverse change.
--- NOTE | 2021-08-23 20:23 | XR ---
EXAMINATION TYPE: XR chest 2V DATE OF EXAM: 08/23/2021 COMPARISON: 522 HISTORY: Altered mental status TECHNIQUE: 2 views FINDINGS: Heart is normal. Lungs are clear of infiltrate. There is no heart failure. There are no hil ar masses. Bony thorax is intact. IMPRESSION: No active cardiopulmonary disease. No change.
--- NOTE | 2021-08-23 20:27 | CT ---
EXAMINATION TYPE: CT angio head neck DATE OF EXAM: 08/23/2021 COMPARISON: None HISTORY: Slurred speech. CT DLP: 818.1 mGycm Automated exposure control for dose reduction was used. CONTRAST: Performed with IV Contrast, patient injected with 65ml mL of Isovue 370. There are 3-D post processed images. Images obtained from the aortic arch to the vertex of the brain with IV contrast. There is arterial flow in the great vessels at the aortic arch with normal branching pattern. There i s arterial flow in both subclavian arteries. There is arterial flow in the common internal and radiological technologist al carotid arteries bilaterally. There is wide patency of the carotid artery bifurcations. There is a rterial flow in both vertebral arteries. There is no evidence of carotid or vertebral artery aneurysm or dissection. There is arterial flow in the vertebral basilar artery system. There is arterial flow in the anterior middle and posterior cerebral arteries. No mass effect. No selene dence of intracranial aneurysm or neovascularity. There is normal enhancement of the venous sinuses. No evidence of hemodynamic stenosis. IMPRESSION: Normal CT angiogram of the neck. Normal CT angiogram of the brain.
[2021-08-23] MEDS ORDERED: HYDROmorphone 1 MG/ML 1 ML SYRINGE IVP STA (20:44)
[2021-08-23] MEDS ORDERED: ASPIRIN 325 MG TAB PO STA (20:44)
[2021-08-23] MEDS ORDERED: traMADol 50 MG TAB PO PRN (20:45)
[2021-08-23] MEDS ORDERED: NALOXONE 0.4 MG/ML 1 ML VIAL IV PRN (20:45)
[2021-08-23] MEDS ORDERED: ACETAMINOPHEN TAB 325 MG TAB PO PRN (20:45)
[2021-08-23] MEDS ORDERED: ONDANSETRON 4 MG/2 ML VIAL IVP PRN (20:45)
[2021-08-23] MEDS: SODIUM CHLORIDE 0.9% 1,000 ML IV SCH (22:00)
[2021-08-23] MEDS ORDERED: ATORVASTATIN 80 MG TAB PO STA (23:52)
--- NOTE | 2021-08-23 23:53 | P.HPIM ---
History of Present Illness H&P Date: 08/23/21 The patient is a 36-year-old female with a PMH of chronic migraines with aura, morbid obesity status post gastric bypass 05/2021, and asthma who presents to the emergency room with complaints of slurred speech, stuttering, and a headache. Patient reports that her symptoms started roughly 4 days ago with a mild diffuse headache, typical for her usual migraine episodes. The patient reports however that the headache gradually worsened and she developed stuttering and slurring of her speech 48 hours ago which also gradually worsened. She denied any prior history of speech impairment but states that she has chronic migraines which have been very difficult to control despite multiple medications. At time of interview, reported that her headache had improved, was 3 out of 10, involving the bilateral temporal as well as occipital region, achy in nature, worsened with sound and bright lights, with no alleviating features. She denied experiencing weakness, numbness, or tingling. Also denied chest discomfort, shortness of breath, fever, chills, cough, nausea, vomiting, abdominal pain, diarrhea. CT angiogram ofthe head and neck in the emergency room was unremarkable. CT brain was also unremarkable. EKG reveals sinus rhythm at 62 bpm with left axis deviation. Laboratory evaluation was unremarkable. Review of systems: Pertinent positives and negatives as discussed in HPI, a complete review of systems was performed and all other systems are negative. Physical examination: General: non toxic, no distress, appears at stated age, obese Derm: no unusual rashes/lesions no unusual ecchymoses, warm, dry Head: atraumatic, normocephalic, symmetric Eyes: EOMI, no lid lag, anicteric sclera, pupils equal round reactive to light ENT: Nose and ears atraumatic, no thrush, no pharyngeal erythema Neck: No thyromegaly, no cervical lymphadenopathy, trachea midline, supple Mouth: no lip lesion, mucus membranes moist Cardiovascular: S1S2 reg, no murmur, positive posterior tibial pulse bilateral, no edema, capillary refill less than 2 seconds Lungs: CTA bilateral, no rhonchi, no rales , no accessory muscle use Abdominal: soft, nontender to palpation, no guarding, no appreciable organo megaly, normal bowel sounds Ext: no gross muscle atrophy, muscle strength 5 out of 5 in all 4 extremities grossly, no contractures, Neuro: Stuttering speech, CN II-XI grossly intact, light touch intact all 4 extremities, finger to nose within normal limits, no pronator drift Psych: Alert, oriented, appropriate affect Assessment/plan TIA versus complex migraine -Neurology consulted -Cardiac monitoring -Echocardiogram -Continue with aspirin, statin DVT prophylaxis -Heparin subq The patient is admitted with an anticipated less than 2 midnight stay for evaluation of migraine CODE STATUS: Full Code Discussed with: Patient Anticipated discharge date: in am Anticipated discharge place: Home Past Medical History Past Medical History: Asthma, Diabetes Mellitus, Fibromyalgia, GERD/Reflux, Sleep Apnea/CPAP/BIPAP, Thyroid Disorder Additional Past Medical History / Comment(s): Migraines, DDD , IBS, NO CPAP used. HX PERFORATED DIVERTICULITIS, internal abd hematoma, seasonal allergies History of Any Multi-Drug Resistant Organisms: None Reported Past Surgical History: Bariatric Surgery, Bowel Resection, Breast Surgery, Cholecystectomy, Hernia Repair Additional Past Surgical History / Comment(s): Rt Breast biopsy. bowel resection with Colostomy/ later colostomy Reversal, abdominal surgery to remove scar tissue. sleeve gastrectomy 06-06-21 Past Anesthesia/Blood Transfusion Reactions: No Reported Reaction Additional Past Anesthesia/Blood Transfusion Reaction / Comment(s): no hx blood transfusion, received monoclonal antibodies in Feb 2021 Past Psychological History: Anxiety, Bipolar, Depression Smoking Status: Never smoker Past Alcohol Use History: None Reported Past Drug Use History: None Reported - Past Family History Mother History Unknown: Yes Family Medical History: No Reported History Additional Family Medical History / Comment(s): unk CA hx, unknown all medical dx, at age 55. Brother(s) Family Medical History: Diabetes Mellitus Father Family Medical History: Unable to Obtain Medications and Allergies Home Medications Medication Instructions Recorded Confirmed Type Levothyroxine Sodium [Synthroid] 50 mcg PO DAILY 05/05/14 08/23/21 History Topiramate [Trokendi Xr] 100 mg PO DAILY 07/19/17 08/23/21 History Cetirizine HCl [Zyrtec] 10 mg PO DAILY 08/30/19 08/23/21 History Pregabalin [Lyrica] 150 mg PO BID 08/30/19 08/23/21 History ARIPiprazole [Abilify] 2 mg PO HS 09/14/20 08/23/21 History Ondansetron Odt [Zofran ODT] 8 mg PO Q8HR PRN 09/14/20 08/23/21 History Venlafaxine HCl [Effexor XR] 225 mg PO HS 09/14/20 08/23/21 History Erenumab-Aooe [Aimovig 140 mg SQ Q30D 09/22/20 08/23/21 History Autoinjector] Rizatriptan Odt [Maxalt HEAD OF ENGLISH] 10 mg PO DAILY PRN 11/12/20 08/23/21 History Albuterol Sulfate [Ventolin HFA] 2 puff INHALATION RT-Q6H PRN 07/09/21 08/23/21 History Norethindrone-E.estradiol-Iron 1 tab PO HS 07/09/21 08/23/21 History [Junel Fe 1.5 mg-30 Mcg Tablet] HYDROcodone/APAP 7.5-325MG [[place] 1 tab PO BID PRN 08/23/21 08/23/21 History 7.5-325] Mupirocin 2% Oint [Bactroban 2% 1 applic TOPICAL BID PRN 08/23/21 08/23/21 History Oint] Allergies Allergy/AdvReac Type Severity Reaction Status Date / Time codeine Allergy Hallucinati Verified 08/23/21 21:16 ons tramadol Allergy Hallucinati Verified 08/23/21 21:16 ons valacyclovir HCl AdvReac BLURRED Verified 08/23/21 21:16 [From Valtrex] VISION Physical Exam Vitals: Vital Signs Temp Pulse Resp BP Pulse Ox 08/23/21 19:41 60 18 117/79 97 08/23/21 16:21 98.5 F 68 20 130/83 100 Intake and Output 08/23/21 08/23/21 08/23/21 06:59 14:59 22:59 Other: Weight 115.666 kg Results CBC & Chem 7: 08/23/21 19:16 08/23/21 19:16 Labs: Abnormal Lab Results - Last 24 Hours (Table) 08/23/21 08/23/21 Range/Units 19:16 19:16 RDW 16.5 H (11.5-15.5) % Chloride 108 H (98-107) mmol/L ALT 36 H (4-34) U/L
[2021-08-24] MEDS: HEPARIN SODIUM,PORCINE/PF 5,000 UNIT/0.5 ML SYRINGE SQ SCH ×2 (04:44→09:58)
[2021-08-24] MEDS ORDERED: ASPIRIN 81 MG PO SCH (09:00)
--- NOTE | 2021-08-24 10:00 | ECHOF ---
Referral Reason:tia MEASUREMENTS -------- HEIGHT: 170.2 cm WEIGHT: 115.7 kg BP: 114/67 RVIDd: 2.7 cm (< 3.3) IVSd: 1.4 cm (0.6 - 1.1) LVIDd: 4.4 cm (3.9 - 5.3) LVPWd: 1.3 cm (0.6 - 1.1) IVSs: 1.6 cm LVIDs: 2.6 cm LVPWs: 2.0 cm LA Diam: 2.8 cm (2.7 - 3.8) Ao Diam: 3.4 cm (2.0 - 3.7) AV Cusp: 2.1 cm (1.5 - 2.6) MV EXCURSION: 22.126 mm (> 18.000) MV EF SLOPE: 167 mm/s (70 - 150) EPSS: 0.6 cm MV E Dale: 0.92 m/s MV DecT: 259 ms MV A [place]: 0.50 m/s MV E/A Ratio: 1.84 RAP: 5.00 mmHg RVSP: 20.05 mmHg FINDINGS -------- Resting bradycardia (HR<60bpm). This was a technically good study. The left ventricular size is normal. There is moderate concentric left ventricular hypertrophy. O verall left ventricular systolic function is normal with, an EF between 60 - 65 %. The right ventricle is normal in size. The left atrium is normal in size. The right atrium is normal in size. Interatrial and interventricular septum intact. The aortic valve is trileaflet, and appears structurally normal. No aortic stenosis or regurgitation. There is trace mitral regurgitation. Mild tricuspid regurgitation present. Right ventricular systolic pressure is normal at < 35 mmHg. The pulmonic valve is normal. The aortic root size is normal. Normal inferior vena cava with normal inspiratory collapse consistent with estimated right atrial pre ssure of 5 mmHg. There is no pericardial effusion. CONCLUSIONS -------- 1. The left ventricular size is normal. 2. There is moderate concentric left ventricular hypertrophy. 3. Overall left ventricular systolic function is normal with, an EF between 60 - 65 %. 4. There is trace mitral regurgitation. 5. Mild tricuspid regurgitation present. 6. There is no pericardial effusion. DIRECTOR DIGITAL ADVERTISING: Chana Cantu RDCS
[2021-08-24] MEDS: SODIUM CHLORIDE 0.9% 1,000 ML IV SCH (10:39)
--- NOTE | 2021-08-24 11:22 | P.CNNES ---
History of Present Illness Consult date: 08/24/21 Requesting physician: Virgilio Bryan Reason for Consult: cephalgia with slurred speech History of Present Illness: This is a 36-year-old woman with medical history of chronic migraine with aura, asthma, morbid obesity status post gastric bypass 05/2020 who presented to emergency department on 08/23/2021 for complaint of headache associated with stuttering. Patient stated that the she's been having a headache that started about 4 days ago typical for her usual migraine then it gradually worsened then developed stuttering speech of 48 hours prior to presenting to the hospital. She denies any speech difficulty associate with her migraines. The headache started in the occipital region mid region and denies any radiation. The pain is pressure, 10/10, has photophobia and minimal phonophobia. Denies nausea or vomiting. She denies of any focal weakness or numbness. She denies of any stressors recently. She has has migraine for >20 years and prior to headache she getting vision change then gets migraines and can last couple days. Her migraine has becoming frequent since 05/2020. She follow-up with Dr. Azar's team (his PA) and had multiple medication tried. She stated she was on Topamax 200mg in past then recently decreased to 100mg and unsure reason. She was on Imitrex and has not helped. She was recently started on Nurtec and Ubrevly and has noticed some help. She has not tried Botox injection. For her migraine she is on Patient is on Aimovig 150 mg every 30 days injection, Topamax 100 mg daily, Rozatriptan 10 mg daily as needed, Zofran 8 mg every 8 hours as needed, [place] 7.5325 one tablet twice a day as needed, Some of other patient's home medication consist of Lyrica 150 mg 1 tablet twice a day, Synthroid, Zyrtec 10 mg daily, Abilify 2 mg daily at bedtime, Effexor 225 mg daily at bedtime. Some other workup in the hospital consisted of: Initial vital signs his blood pressure 130/83, heart rate is 68, respiratory of 20, temperature of 98.5 Fahrenheit oral and pulse ox 100% room air. I personally reviewed that patient CBC and CMP. CT of the head is reported as negative unenhanced head CT scan. No adverse change. I personally reviewed the CT of the head and there is no acute or subacute ischemia and there is no acute parenchymal hemorrhage. There is no mass or edema appreciable. I felt the patient has mild bilateral frontal atrophy. CT angiography of the head and neck was reported as normal Review of Systems Review of system: The 12 point system was reviewed and apparent positive and negative per HPI. Past Medical History Past Medical History: Asthma, Diabetes Mellitus, Fibromyalgia, GERD/Reflux, Sleep Apnea/CPAP/BIPAP, Thyroid Disorder Additional Past Medical History / Comment(s): Migraines with aura, DDD, NIDDM type II, diverticulitis with perforation/colostomy since reversed, IBS, chronic seroma, CARLITOS/no device, polycystic ovaries, hypothyroid, season allergies History of Any Multi-Drug Resistant Organisms: None Reported Past Surgical History: Bariatric Surgery, Bowel Resection, Breast Surgery, Cholecystectomy, Hernia Repair Additional Past Surgical History / Comment(s): 06/06/21 sleeve gastrectomy, rt Breast biopsy. bowel resection with colostomy/ later colostomy reversal, abdominal surgery to remove scar tissue, EGD, colonoscopy, back pain procedures Past Anesthesia/Blood Transfusion Reactions: No Reported Reaction Additional Past Anesthesia/Blood Transfusion Reaction / Comment(s): no hx blood transfusion, received monoclonal antibodies in Feb 2021 Smoking Status: Never smoker - Past Family History Mother History Unknown: Yes Family Medical History: No Reported History Additional Family Medical History / Comment(s): Mother from COPD at the age of 55 yrs. Brother(s) Family Medical History: Diabetes Mellitus Father Family Medical History: Unable to Obtain Medications and Allergies Home Medications Medication Instructions Recorded Confirmed Type Levothyroxine Sodium [Synthroid] 50 mcg PO DAILY 05/05/14 08/23/21 History Topiramate [Trokendi Xr] 100 mg PO DAILY 07/19/17 08/23/21 History Cetirizine HCl [Zyrtec] 10 mg PO DAILY 08/30/19 08/23/21 History Pregabalin [Lyrica] 150 mg PO BID 08/30/19 08/23/21 History ARIPiprazole [Abilify] 2 mg PO HS 09/14/20 08/23/21 History Ondansetron Odt [Zofran ODT] 8 mg PO Q8HR PRN 09/14/20 08/23/21 History Venlafaxine HCl [Effexor XR] 225 mg PO HS 09/14/20 08/23/21 History Erenumab-Aooe [Aimovig 140 mg SQ Q30D 09/22/20 08/23/21 History Autoinjector] Rizatriptan Odt [Maxalt RACKER OCTAVE BOARD] 10 mg PO DAILY PRN 11/12/20 08/23/21 History Albuterol Sulfate [Ventolin HFA] 2 puff INHALATION RT-Q6H PRN 07/09/21 08/23/21 History Norethindrone-E.estradiol-Iron 1 tab PO HS 07/09/21 08/23/21 History [Junel Fe 1.5 mg-30 Mcg Tablet] HYDROcodone/APAP 7.5-325MG [[place] 1 tab PO BID PRN 08/23/21 08/23/21 History 7.5-325] Mupirocin 2% Oint [Bactroban 2% 1 applic TOPICAL BID PRN 08/23/21 08/23/21 History Oint] Allergies Allergy/AdvReac Type Severity Reaction Status Date / Time codeine Allergy Hallucinati Verified 08/23/21 21:16 ons tramadol Allergy Hallucinati Verified 08/23/21 21:16 ons valacyclovir HCl AdvReac BLURRED Verified 08/23/21 21:16 [From Valtrex] VISION Physical Examination - Vital Signs Vital Signs: Vital Signs Temp Pulse Resp BP Pulse Ox 08/24/21 06:25 59 L 16 114/67 96 08/24/21 04:07 60 18 101/78 96 08/24/21 01:04 65 18 98/60 96 08/23/21 23:26 64 18 107/70 96 08/23/21 22:00 60 20 114/76 95 08/23/21 19:41 60 18 117/79 97 08/23/21 16:21 98.5 F 68 20 130/83 100 Intake and Output 08/23/21 08/24/21 08/24/21 22:59 06:59 14:59 Other: Weight 115.666 kg 115.666 kg GENERAL: The patient is lying in bed and appears to be in mild acute distress. HENT: Supple. No nuchal rigidity. CHEST: The heart rate is regular rate rhythm. No murmurs to auscultation. No carotid bruit bilaterally. LUNG: Clear to auscultation bilaterally no wheezing noted throughout. Not labored breathing. ABDOMEN/GI: Bowel sounds present in all 4 quadrants. No tenderness to palpation throughout. NEUROLOGICAL: Higher mental function: The patient is awake, alert, oriented to self, place and time. Patient is following commands. No aphasia and no neglect. Cranial nerves: The pupils are round, equal and reactive to light and accommodat ion. Visual murrell are full to confrontation throughout. Extraocular movement is intact no nystagmus is noted. Facial sensation is normal to touch throughout. The facial strength is normal throughout. Hearing is normal bilaterally to hand rub. Tongue is midline and moved [id number] without any difficulty. No dysarthria is noted. Patient is stuttering but is inconsistent. Shoulder shrug is normal bilaterally. Motor: Gait is deferred because of her pain. The strength is limited because of her cooperation. Patient is giving poor effort but is symetrical bilaterally about 4+. Normal tone and bulk. Cerebellum: Normal finger to nose bilaterally. Sensation: Sensation is normal to touch throughout. Reflexes (right/left): 2+ throughout. Plantars are downgoing bilaterally. Results - Laboratory Findings CBC and BMP: 08/23/21 19:16 08/23/21 19:16 Abnormal Lab Findings: Abnormal Labs 08/23/21 08/23/21 19:16 19:16 RDW 16.5 H Chloride 108 H ALT 36 H Assessment and Plan Assessment: Status Migrainosus with aura: Her stuttering appears functional. Stroke and TIA is unlikely. Chronic history of migraine with aura Morbid obesity status post gastric bypass 05/2020 Plan: In the ED the patient was given 10 mg IV dose of Reglan, Dilaudid 1 mg, Benadryl 50 mg once. Was started on IV fluids. Patient was given aspirin 325 once by the ED team and then was started on aspirin 81 mg daily and Lipitor 80 mg once was given by the primary team for concern of possible TIA. I feel stroke/TIA is unlikely. Recommend patient to follow-up with her Neurologist (Dr. Azar's team) for o utpatient MRI Brain/MRV and further management of her migraine. Recommend consideration of Botox for controlling her migraine. Patient is on Aimovig 150 mg every 30 days injection, Topamax 100 mg daily, Rozatriptan 10 mg daily as needed, Zofran 8 mg every 8 hours as needed. She was recently started on Nurtec and Ubrevly and has noticed some help. Every 4 hours neuro checks Patient was notified since to have two methods of contraceptives since she is on medication that can cause teratogenesis. We'll defer the rest of the medical management to primary team. The plan is discussed with patient and primary team. There is no further neurological work-up needed at this time. Thank you for the consultation. Chivo Vasquez M.D. Neuro-hospitalist Time with Patient: Greater than 30
[2021-08-24 11:57] VITALS: TEMP 98.1
--- NOTE | 2021-08-24 14:33 | P.DS ---
Providers Date of admission: 08/23/21 20:45 Expected date of discharge: 08/24/21 Attending physician: Maite Prajapati MD Consults: 08/23/21 20:45 Consult Physician Urgent Consulting Provider: Chivo Vasquez Consult Reason/Comments: Cephalgia with slurred speech Do you want consulting provider notified?: Yes Primary care physician: Edgardo Orozco [facility] Hospital Course: Discharge Diagnosis: Complex migraine status migrainosus with aura Morbid obesity status post gastric bypass Hospital Course: The patient is a 36-year-old female with a past medical history of chronic migraines with aura, morbid obesity status post gastric bypass 05/2021, and asthma. She presents to the emergency room with complaints of slurred speech, stuttering, and a headache in which she reports is her typical baseline migraines but lasting slightly longer. Patient reports that her symptoms started roughly 4 days ago with a mild diffuse headache, typical for her usual migraine episodes. She denied experiencing dizziness, lightheadedness, changes in vision, photosensitivity, changes in hearing, or tinnitus, weakness, numbness, or tingling. Also denied chest discomfort, shortness of breath, fever, chills, cough, nausea, vomiting, abdominal pain, diarrhea. CT angiogram ofthe head and neck in the emergency room was unremarkable. CT brain was also unremarkable. EKG reveals sinus rhythm at 62 bpm with left axis deviation. Laboratory evaluation was unremarkable. Patient was admitted under our services with consultation to neurology. Neurology evaluated recommending further neurological workup needed at this time and recommending patient follow up with her neurologist (Dr. Zhou) within 1-2 weeks for outpatient MRI Brain/MRV and further management of her migraine headaches. Neurology also recommend consideration of Botox for controlling her migraine. Patient is medically stable. No medication changes to be made at this time. Patient was informed that it is highly recommend using two methods of contraceptives/ control at all times because you are on medication that can cause teratogenesis, meaning significant defects and/or demise. Patient to follow up outpatient with PCP and neurology as directed. General: non toxic, no distress, appears at stated age Derm: warm, dry Head: atraumatic, normocephalic, symmetric Eyes: EOMI, no lid lag, anicteric sclera Mouth: no lip lesion, mucus membranes moist Cardiovascular: S1S2 reg, no murmur, positive posterior tibial pulse bilateral, Lungs: CTA bilateral, no rhonchi, no rales , no accessory muscle use Abdominal: soft, nontender to palpation, no guarding, no appreciable organomegaly Ext: no gross muscle atrophy, no edema, no contractures Neuro: CN II-XI grossly intact, no focal neuro deficits Psych: Alert, oriented, appropriate affect. Patient has inconsistent stuttering. A total of 35 minutes of time were spent preparing this complex discharge summary. [place] Still NP rendered care for this patient independently, reviewed the findings and plan as documented in the note above. I did not physically speak with or examine the patient on this date. Patient Condition at Discharge: Stable Plan - Discharge Summary Discharge Rx Participant: No New Discharge Prescriptions: Continue Levothyroxine Sodium [Synthroid] 50 mcg PO DAILY Topiramate [Trokendi Xr] 100 mg PO DAILY Cetirizine HCl [Zyrtec] 10 mg PO DAILY Pregabalin [Lyrica] 150 mg PO BID ARIPiprazole [Abilify] 2 mg PO HS Venlafaxine HCl [Effexor XR] 225 mg PO HS Erenumab-Aooe [Aimovig Autoinjector] 140 mg SQ Q30D Rizatriptan Odt [Maxalt MARKETING SUPPORT MANAGER] 10 mg PO DAILY PRN PRN Reason: Migraine Headache HYDROcodone/APAP 7.5-325MG [[place] 7.5-325] 1 tab PO BID PRN PRN Reason: Pain Ondansetron Odt [Zofran ODT] 8 mg PO Q8HR PRN PRN Reason: Nausea/migraines Albuterol Sulfate [Ventolin HFA] 2 puff INHALATION RT-Q6H PRN PRN Reason: Shortness Of Breath Norethindrone-E.estradiol-Iron [Junel Fe 1.5 mg-30 Mcg Tablet] 1 tab PO HS Mupirocin 2% Oint [Bactroban 2% Oint] 1 applic TOPICAL BID PRN PRN Reason: Wound Healing Discharge Medication List Levothyroxine Sodium [Synthroid] 50 mcg PO DAILY 05/05/14 [History] Topiramate [Trokendi Xr] 100 mg PO DAILY 07/19/17 [History] Cetirizine HCl [Zyrtec] 10 mg PO DAILY 08/30/19 [History] Pregabalin [Lyrica] 150 mg PO BID 08/30/19 [History] ARIPiprazole [Abilify] 2 mg PO HS 09/14/20 [History] Ondansetron Odt [Zofran ODT] 8 mg PO Q8HR PRN 09/14/20 [History] Venlafaxine HCl [Effexor XR] 225 mg PO HS 09/14/20 [History] Erenumab-Aooe [Aimovig Autoinjector] 140 mg SQ Q30D 09/22/20 [History] Rizatriptan Odt [Maxalt MARKETING SUPPORT MANAGER] 10 mg PO DAILY PRN 11/12/20 [History] Albuterol Sulfate [Ventolin HFA] 2 puff INHALATION RT-Q6H PRN 07/09/21 [History] Norethindrone-E.estradiol-Iron [Junel Fe 1.5 mg-30 Mcg Tablet] 1 tab PO HS 07/09/21 [History] HYDROcodone/APAP 7.5-325MG [[place] 7.5-325] 1 tab PO BID PRN 08/23/21 [History] Mupirocin 2% Oint [Bactroban 2% Oint] 1 applic TOPICAL BID PRN 08/23/21 [History] Follow up Appointment(s)/Referral(s): Edgardo Inman MD [Primary Care Provider] - 1-2 days Thomas Azar MD [Medical Doctor] - 1 Week (You will need to follow up with your neurologist for outpatient MRI as we discussed. ) Patient Instructions/Handouts: Acute Headache (DC) Activity/Diet/Wound Care/Special Instructions: Activity: As tolerated. Take breaks as needed. Diet: Heart healthy and carb consistent diet. Avoid salts, or foods with hidden salts such as canned or boxed foods and frozen dinners. Extra salt makes your heart work harder and traps the fluid in your body for longer. Special Instructions: Take all of your medications as directed and remember to keep all of your doctor's appointments and follow-up as needed. It is important to follow-up with your Neurologist (Dr. Azar's team) for outpatient MRI Brain/MRV and further management of your migraine headaches within 1-2 weeks. Recommend consideration of Botox for controlling her migraine. Highly recommend using two methods of contraceptives/ control at all times because you are on medication that can cause teratogenesis, meaning significant defects and/or demise. Thank you for allowing us to participate in your care, it was truly a pleasure having you for our patient!!! Discharge Disposition: HOME SELF-CARE
[2021-08-24 14:40] VITALS: BP 116/78; PULSE 72; RESP 18
== END 2021-08-24 17:32 | disposition home or self-care (01) ==
LOC: EC 16:18 → 6NMEDSUR 20:45
PROVIDERS: ADMIT Internal Medicine; ATTEND Internal Medicine
DX: G43.101 Migraine with aura, not intractable, with status migrainosus (principal); E66.01 Morbid (severe) obesity due to excess calories; Z68.39 Body mass index [BMI] 39.0-39.9, adult; J45.909 Unspecified asthma, uncomplicated; E11.9 Type 2 diabetes mellitus without complications; G47.33 Obstructive sleep apnea (adult) (pediatric); E03.9 Hypothyroidism, unspecified; E28.2 Polycystic ovarian syndrome; M79.7 Fibromyalgia; K21.9 Gastro-esophageal reflux disease without esophagitis; K58.9 Irritable bowel syndrome, unspecified; F41.9 Anxiety disorder, unspecified; F31.9 Bipolar disorder, unspecified; I07.1 Rheumatic tricuspid insufficiency; Z98.84 Bariatric surgery status; Z71.9 Counseling, unspecified; Z90.49 Acquired absence of other specified parts of digestive tract; Z79.890 Hormone replacement therapy; Z79.899 Other long term (current) drug therapy; Z88.5 Allergy status to narcotic agent; Z88.8 Allergy status to other drugs, medicaments and biological substances; Z82.5 Family history of asthma and other chronic lower respiratory diseases; Z83.3 Family history of diabetes mellitus; Z80.9 Family history of malignant neoplasm, unspecified
CPT/HCPCS: 96361; 96372; 96374; 96375; 99285; 36415; 93005; 93306; 80053; 84484; 85025; 85610; 85730; 71046; 70496; 70450; 70498; G0378 ×2; J1200; J2765; J1170; Q9967; J1644

== ENCOUNTER → 2021-08-26 | Outpatient (CLI) | payer OTHER ==
[2021-08-26 18:34] LABS: HCT 43.6 % (37.2-46.3); MCH 25.5 pg (27.0-32.0); MCHC 29.8 g/dL (32.0-37.0); MCV 85.5 fL (80.0-97.0); Mean Platelet Volume 11.3 fL (9.5-12.2); NRBC Per 100 WBC 0 /100 WBCS (0.0-0.0); Platelet Count 379 X 10*3/uL (140-440); RDW 17.5 % (11.5-14.5); WBC 7.59 X 10*3/uL (4.50-10.00)
[2021-08-26 20:51] LABS: % Iron Saturation 9.17 (12.00-45.00); African American GFR (CKD) 104.1 (60.0-200.0); Albumin 4.3 g/dL (3.8-4.9); Albumin/Globulin Ratio 1.36 (1.60-3.17); Anion Gap 14.1 mmol/L (10.00-18.00); BUN/Creat Ratio 10.54 Ratio (12.00-20.00); Blood Urea Nitrogen 8.7 mg/dL (9.0-27.0); Calcium 9.7 mg/dL (8.7-10.3); Carbon Dioxide 19.2 mmol/L (20.0-27.5); Ferritin 11.9 ng/mL (10.0-291.0); Globulin 3.2 g/dL (1.6-3.3); Magnesium 2.4 mg/dL (1.5-2.4); Non-African American GFR(CKD) 89.9 (60.0-200.0); Potassium 4.2 mmol/L (3.5-5.5); Total Bilirubin 0.3 mg/dL (0.30-1.20); Total Protein 7.5 g/dL (6.2-8.2)
== END | disposition home or self-care (01) ==
LOC: LABWHC1 11:15
PROVIDERS: ATTEND Surgery
DX: E66.01 Morbid (severe) obesity due to excess calories (principal); D50.8 Other iron deficiency anemias; E55.9 Vitamin D deficiency, unspecified; N19 Unspecified kidney failure; K90.9 Intestinal malabsorption, unspecified
CPT/HCPCS: 36415; 80053; 82306; 82607; 82728; 82746; 83540; 83550; 83735; 84255; 84425; 84443; 84590; 84630; 85027

== ENCOUNTER → 2021-09-12 | Outpatient (CLI) | payer OTHER ==
[2021-09-12 14:01] VITALS: BP 132/83; PULSE 74; TEMP 98.1; BMI 39.1
--- NOTE | 2021-09-12 14:03 | P.HPBAR ---
Bariatric H&P - History & Physicial H&P Date: 09/12/21 History & Physicial: Visit/CC: sleeve f/u Patient initial contact: Initial weight: 312 kg Initial weight in pounds: 687.84 Height: 5 ft 7 in Initial BMI: 107.7 Last weight: 254 Current weight: 113.398 kg Current weight in pounds: 250.00 Current BMI: 39.1 [place] body weight (based on NIH guidelines): 61.235 kg Excess body weight loss: 79.1% The patient is a 36 year-old F who presents for Bariatric Assessment.patient presents today for sleeve gastrectomy follow-up. She feels well. Patient has minimal GERD. Past Medical History Past Medical History: Asthma, Diabetes Mellitus, Fibromyalgia, GERD/Reflux, Sleep Apnea/CPAP/BIPAP, Thyroid Disorder Additional Past Medical History / Comment(s): Migraines with aura, DDD, NIDDM type II, diverticulitis with perforation/colostomy since reversed, IBS, chronic seroma, CARLITOS/no device, polycystic ovaries, hypothyroid, season allergies History of Any Multi-Drug Resistant Organisms: None Reported Past Surgical History: Bariatric Surgery, Bowel Resection, Breast Surgery, Cholecystectomy, Hernia Repair Additional Past Surgical History / Comment(s): 06/06/21 sleeve gastrectomy, rt Breast biopsy. bowel resection with colostomy/ later colostomy reversal, abdominal surgery to remove scar tissue, EGD, colonoscopy, back pain procedures Past Anesthesia/Blood Transfusion Reactions: No Reported Reaction Additional Past Anesthesia/Blood Transfusion Reaction / Comm: no hx blood transfusion, received monoclonal antibodies in Feb 2021 Past Psychological History: Anxiety, Bipolar, Depression Additional Psychological History / Comment(s): Pt has eating disorder-binge eater, borderline personality disorder. Pt resides with her boyfriend and his mother. She is independent. Smoking Status: Never smoker Past Alcohol Use History: None Reported Past Drug Use History: None Reported - Past Family History Mother History Unknown: Yes Family Medical History: No Reported History Additional Family Medical History / Comment(s): Mother from COPD at the age of 55 yrs. Brother(s) Family Medical History: Diabetes Mellitus Father Family Medical History: Unable to Obtain Surgical - Exam Vital Signs Temp Pulse BP 98.1 F 74 132/83 09/12/21 13:59 09/12/21 13:59 09/12/21 13:59 - General well developed, well nourished, no distress - Eyes PERRL - ENT normal pinna - Neck no masses - Respiratory normal expansion - Cardiovascular Rhythm: regular - Abdomen Abdomen: soft, non tender Bariatric Assessment & Plan Plan: status post sleeve gastrectomy. Patient's GERD is minimal and will be observed. She'll follow-up in 4 weeks. Bariatric Checklist Checklist: Plan: Checklist: EGD: 1. Hiatal hernia: 2. H. Pylori: HgbA1c: Vitamin D: Smoking: Never smoker Primary care physician referral: Dr. Alaniz Psychiatry clearance: Cardiology clearance: Sleep study: Diet journal: VTE risk score: VTE risk level: Rehab needs at discharge:
== END ==
LOC: BARWHC3 13:45
PROVIDERS: ATTEND Surgery
DX: Z09 Encounter for follow-up examination after completed treatment for conditions other than malignant neoplasm (principal); K21.9 Gastro-esophageal reflux disease without esophagitis; Z98.84 Bariatric surgery status; J45.909 Unspecified asthma, uncomplicated; E11.9 Type 2 diabetes mellitus without complications; G43.909 Migraine, unspecified, not intractable, without status migrainosus; E03.9 Hypothyroidism, unspecified; F41.9 Anxiety disorder, unspecified; F31.9 Bipolar disorder, unspecified; Z88.5 Allergy status to narcotic agent; Z88.1 Allergy status to other antibiotic agents
CPT/HCPCS: 99211

== ENCOUNTER → 2021-09-20 | Outpatient (CLI) | payer OTHER ==
[2021-09-21 11:25] LABS: Anti-Thrombin III Antigen 99 % (80 - 120); Protein S Antigen 92 % (50 - 140)
[2021-09-21 11:26] LABS: APTT 41 Sec(s) (<43); DRVVT 1:1 Mix 40 Sec(s) (<44); Dilute Russell Viper Venom 45 Sec(s) (<44)
[2021-09-21 11:51] LABS: Protein C (Activity) 118 % (71-138)
[2021-09-21 11:59] LABS: Anti-Thrombin III Activity 90 % (79-109)
[2021-09-21 17:39] LABS: Cardiolipin Ab IgG Interp NEGATIVE (NEGATIVE); Cardiolipin Ab IgM Interp NEGATIVE (NEGATIVE); Cardiolipin IgM Antibody <1.5 U/mL
== END | disposition home or self-care (01) ==
LOC: LABWHC1 15:43
PROVIDERS: ATTEND Physician Assistant
DX: G45.9 Transient cerebral ischemic attack, unspecified (principal)
CPT/HCPCS: 36415; 83090; 85300; 85301; 85302; 85303; 85305; 85306; 85379; 85613; 85730; 86147

== ENCOUNTER 2021-09-21 12:11 | Emergency (ER) | payer OTHER ==
[2021-09-21 12:14] VITALS: RESP 16; TEMP 97.4
[2021-09-21] MEDS ORDERED: diphenhydrAMINE 50 MG/ML 1 ML VIAL IVP STA (12:38)
[2021-09-21] MEDS ORDERED: SODIUM CHLORIDE 0.9% 1,000 ML IV STA (12:38)
[2021-09-21] MEDS ORDERED: KETOROLAC 15 MG/ML 1 ML VIAL IVP STA (12:39)
[2021-09-21] MEDS ORDERED: LORazepam 2 MG/ML INJ IV STA (12:39)
--- NOTE | 2021-09-21 13:02 | ED ---
General Adult HPI - General Chief complaint: Chest Pain Stated complaint: Chest pain Time Seen by Provider: 09/21/21 12:15 Source: patient, RN notes reviewed, old records reviewed Mode of arrival: wheelchair Limitations: no limitations - History of Present Illness Initial comments: This is a 36-year-old female presents emergency department she tells me that she came in because she has a headache which she's been getting now for over a month and has had an MRI and seen a neurologist. Patient states the headaches then progressed to some chest tightness and she felt like it was tough to get a full breath. Patient also states she has anxiety. Patient is oxygenating 99-100% on room air when I speak with her. Patient denies any abdominal pain patient denies nausea vomiting diarrhea. Patient denies any recent fever chills or cough. Patient denies any calf pain or leg swelling. Patient states this same symptom she's been having on and off for over a month. - Related Data Home Medications Medication Instructions Recorded Confirmed Levothyroxine Sodium [Synthroid] 50 mcg PO DAILY 05/05/14 09/15/21 Topiramate [Trokendi Xr] 100 mg PO DAILY 07/19/17 09/15/21 Cetirizine HCl [Zyrtec] 10 mg PO DAILY 08/30/19 09/15/21 Pregabalin [Lyrica] 150 mg PO BID 08/30/19 09/15/21 ARIPiprazole [Abilify] 2 mg PO HS 09/14/20 09/15/21 Ondansetron Odt [Zofran ODT] 8 mg PO Q8HR PRN 09/14/20 09/15/21 Venlafaxine HCl [Effexor XR] 225 mg PO HS 09/14/20 09/15/21 Erenumab-Aooe [Aimovig 140 mg SQ Q30D 09/22/20 09/15/21 Autoinjector] Rizatriptan Odt [Maxalt PROTOTYPE FABRICATOR] 10 mg PO DAILY PRN 11/12/20 09/15/21 Albuterol Sulfate [Ventolin HFA] 2 puff INHALATION RT-Q6H PRN 07/09/21 09/15/21 Norethindrone-E.estradiol-Iron 1 tab PO HS 07/09/21 09/15/21 [Junel Fe 1.5 mg-30 Mcg Tablet] HYDROcodone/APAP 7.5-325MG [[place] 1 tab PO BID PRN 08/23/21 09/15/21 7.5-325] Ergocalciferol [Vitamin D2 (1250 50,000 unit PO GARCIA 09/12/21 09/15/21 Mcg = 04873 Iu)] Previous Rx's Medication Instructions Recorded Aspirin 81 mg PO DAILY 30 Days #30 tab 09/16/21 Allergies Allergy/AdvReac Type Severity Reaction Status Date / Time codeine Allergy Hallucinati Verified 09/21/21 12:14 ons tramadol Allergy Hallucinati Verified 09/21/21 12:14 ons valacyclovir HCl AdvReac BLURRED Verified 09/21/21 12:14 [From Valtrex] VISION Review of Systems ROS Statement: Those systems with pertinent positive or pertinent negative responses have been documented in the HPI. ROS Other: All systems not noted in ROS Statement are negative. Past Medical History Past Medical History: Asthma, Diabetes Mellitus, Fibromyalgia, GERD/Reflux, Sleep Apnea/CPAP/BIPAP, Thyroid Disorder Additional Past Medical History / Comment(s): Migraines with aura, DDD, NIDDM type II, diverticulitis with perforation/colostomy since reversed, IBS, chronic seroma, CARLITOS/no device, polycystic ovaries, hypothyroid, season allergies History of Any Multi-Drug Resistant Organisms: None Reported Past Surgical History: Bariatric Surgery, Bowel Resection, Breast Surgery, Cholecystectomy, Hernia Repair Additional Past Surgical History / Comment(s): 06/06/21 sleeve gastrectomy, rt Breast biopsy. bowel resection with colostomy/ later colostomy reversal, abdo mariano surgery to remove scar tissue, EGD, colonoscopy, back pain procedures Past Anesthesia/Blood Transfusion Reactions: No Reported Reaction Additional Past Anesthesia/Blood Transfusion Reaction / Comment(s): no hx blood transfusion, received monoclonal antibodies in Feb 2021 Past Psychological History: Anxiety, Bipolar, Depression Smoking Status: Never smoker Past Alcohol Use History: None Reported Past Drug Use History: None Reported - Past Family History Mother History Unknown: Yes Family Medical History: COPD Additional Family Medical History / Comment(s): Mother from COPD at the age of 55 yrs. Brother(s) Family Medical History: Diabetes Mellitus Father Family Medical History: Unable to Obtain General Exam - General Exam Comments Initial Comments: GENERAL: Patient is well-developed and well-nourished. Patient is nontoxic and well- hydrated and is in mild distress. ENT: Neck is soft and supple. No significant lymphadenopathy is noted. Oropharynx is clear. Moist mucous membranes. Neck has full range of motion without eliciting any pain. EYES: The sclera were anicteric and conjunctiva were pink and moist. Extraocular movements were intact and pupils were equal round and reactive to light. Eyelids were unremarkable. PULMONARY: Unlabored respirations. Good breath sounds bilaterally. No audible rales rhonchi or wheezing was noted. CARDIOVASCULAR: There is a regular rate and rhythm without any murmurs gallops or rubs. ABDOMEN: Soft and nontender with normal bowel sounds. SKIN: Skin is clear with no lesions or rashes and otherwise unremarkable. NEUROLOGIC: Patient is alert and oriented x3. Cranial nerves II through XII are grossly intact. Motor and sensory are also intact. Normal speech, volume and content. Symmetrical smile. MUSCULOSKELETAL: Normal extremities with adequate strength and full range of motion. LYMPHATICS: No significant lymphadenopathy is noted PSYCHIATRIC: Patient is mildly anxious Limitations: no limitations Course Vital Signs 09/21/21 09/21/21 12:12 14:39 Temperature 97.4 F L Pulse Rate 97 84 Respiratory 16 16 Rate Blood Pressure 114/79 116/80 O2 Sat by Pulse 97 98 Oximetry Medical Decision Making - Medical Decision Making EKG shows sinus rhythm at 50 85 bpm MN interval 157 QT Interval 346 QTC Is 38. Patient's EKG Shows No ST Segment Elevation or Depression. Patient received Toradol Benadryl and Ativan and was sleeping comfortably when I awoke her she stated she still had headaches I gave her some droperidol and after that she was feeling considerably better. Patient will follow-up with her neurologist. I read the patient's previous charts in the neurologist diagnosed with complex migraines. - Lab Data Result diagrams: 09/21/21 13:15 09/21/21 13:15 Lab Results 09/21/21 09/21/21 09/21/21 Range/Units 13:15 13:15 13:15 WBC 11.1 H (3.8-10.6) k/uL RBC 4.74 (3.80-5.40) m/uL Hgb 12.7 (11.4-16.0) gm/dL Hct 41.0 (34.0-46.0) % MCV 86.6 (80.0-100.0) fL MCH 26.7 (25.0-35.0) pg MCHC 30.9 L (31.0-37.0) g/dL RDW 15.3 (11.5-15.5) % Plt Count 293 (150-450) k/uL MPV 8.1 Neutrophils % 71 % Lymphocytes % 21 % Monocytes % 5 % Eosinophils % 2 % Basophils % 1 % Neutrophils # 7.9 H (1.3-7.7) k/uL Lymphocytes # 2.3 (1.0-4.8) k/uL Monocytes # 0.5 (0-1.0) k/uL Eosinophils # 0.2 (0-0.7) k/uL Basophils # 0.1 (0-0.2) k/uL Hypochromasia Slight Sodium 139 (137-145) mmol/L Potassium 4.0 (3.5-5.1) mmol/L Chloride 110 H (98-107) mmol/L Carbon Dioxide 23 (22-30) mmol/L Anion Gap 6 mmol/L BUN 17 (7-17) mg/dL Creatinine 1.10 H (0.52-1.04) mg/dL Est GFR (CKD-EPI)AfAm 74 (>60 ml/min/1.73 sqM) Est GFR (CKD-EPI)NonAf 64 (>60 ml/min/1.73 sqM) Glucose 92 (74-99) mg/dL Calcium 9.2 (8.4-10.2) mg/dL Magnesium 2.0 (1.6-2.3) mg/dL Total Bilirubin 0.5 (0.2-1.3) mg/dL AST 26 (14-36) U/L ALT 29 (4-34) U/L Alkaline Phosphatase 87 (38-126) U/L Troponin I <0.012 (0.000-0.034) ng/mL Total Protein 6.8 (6.3-8.2) g/dL Albumin 3.9 (3.5-5.0) g/dL Disposition Clinical Impression: Chronic headaches, Anxiety Disposition: HOME SELF-CARE Condition: Good Instructions (If sedation given, give patient instructions): Migraine Headache (ED), Anxiety (ED) Is patient prescribed a controlled substance at d/c from ED?: No Referrals: Edgardo Inman MD [Primary Care Provider] - 1-2 days Time of Disposition: 15:07
[2021-09-21 13:21] LABS: Basophils # (A) 0.1 k/uL (0-0.2); Basophils % (A) 1 %; Eosinophils # (A) 0.2 k/uL (0-0.7); Eosinophils % (A) 2 %; HGB 12.7 gm/dL (11.4-16.0); Hypochromasia Slight; Lymphocytes # (A) 2.3 k/uL (1.0-4.8); Lymphocytes % (A) 21 %; MCH 26.7 pg (25.0-35.0); MCHC 30.9 g/dL (31.0-37.0); MCV 86.6 fL (80.0-100.0); Mean Platelet Volume 8.1; Monocytes # (A) 0.5 k/uL (0-1.0); Monocytes % (A) 5 %; Neutrophils # (A) 7.9 k/uL (1.3-7.7); Neutrophils % (A) 71 %; Platelet Count 293 k/uL (150-450); RBC 4.74 m/uL (3.80-5.40); RDW 15.3 % (11.5-15.5); WBC 11.1 k/uL (3.8-10.6)
[2021-09-21 13:31] LABS: Albumin 3.9 g/dL (3.5-5.0); Calcium 9.2 mg/dL (8.4-10.2); Total Bilirubin 0.5 mg/dL (0.2-1.3); Total Protein 6.8 g/dL (6.3-8.2)
[2021-09-21 14:40] VITALS: BP 116/80; PULSE 84
== END 2021-09-21 15:19 | disposition home or self-care (01) ==
LOC: EC 12:11
DX: G89.29 Other chronic pain (principal); R51.9 Headache, unspecified; R07.89 Other chest pain; F41.9 Anxiety disorder, unspecified; E11.9 Type 2 diabetes mellitus without complications; J45.909 Unspecified asthma, uncomplicated; K21.9 Gastro-esophageal reflux disease without esophagitis; M79.7 Fibromyalgia; Z88.5 Allergy status to narcotic agent; Z88.8 Allergy status to other drugs, medicaments and biological substances; E07.9 Disorder of thyroid, unspecified; Z88.6 Allergy status to analgesic agent; Z88.1 Allergy status to other antibiotic agents; Z79.899 Other long term (current) drug therapy; Z79.890 Hormone replacement therapy
CPT/HCPCS: 36415; 93005; 80053; 83735; 84484; 85025; 96374; 96375; 96361; 99285; J2060; J1200; J1885; J1790

== ENCOUNTER 2021-09-24 17:29 | Emergency (ER) | payer OTHER ==
--- NOTE | 2021-09-24 20:10 | ED ---
General Adult HPI - General Chief complaint: Headache Stated complaint: Migraine,Stuttering,sent by Neuro Time Seen by Provider: 09/24/21 20:10 Source: patient Mode of arrival: ambulatory Limitations: no limitations - History of Present Illness Initial comments: Patient presents to the ED complaining of having a right occipital "migraine headache" since this morning. He shouldn't states that she has a history of migraine headaches for which she is followed by neurology. Patient states that over the past month or so, her migraines have been eliciting worsening stuttering, and so she has been following closely with her neurologist. She states that she has had a brain CT, as well as a brain MRI, over the past month. Patient states that she has come to the ED today because her home pain medications have not been relieving her pain. Patient admits to having associated nausea. Patient denies vomiting. Patient denies trauma or injury, sudden onset of headache, LOC, neck pain or stiffness, fever or chills, focal numbness/weakness/neuro deficit, visual changes, chest pain or pressure, dyspnea, cough or cold symptoms, dizziness, abdominal pain, or any other symptoms or complaints. - Related Data Home Medications Medication Instructions Recorded Confirmed Levothyroxine Sodium [Synthroid] 50 mcg PO DAILY 05/05/14 09/24/21 Topiramate [Trokendi Xr] 100 mg PO DAILY 07/19/17 09/24/21 Cetirizine HCl [Zyrtec] 10 mg PO DAILY 08/30/19 09/24/21 Pregabalin [Lyrica] 150 mg PO BID 08/30/19 09/24/21 ARIPiprazole [Abilify] 2 mg PO HS 09/14/20 09/24/21 Ondansetron Odt [Zofran ODT] 8 mg PO Q8HR PRN 09/14/20 09/24/21 Venlafaxine HCl [Effexor XR] 225 mg PO HS 09/14/20 09/24/21 Erenumab-Aooe [Aimovig 140 mg SQ Q30D 09/22/20 09/24/21 Autoinjector] Rizatriptan Odt [Maxalt EVENTS ADMINISTRATIVE ASSISTANT] 10 mg PO DAILY PRN 11/12/20 09/24/21 Albuterol Sulfate [Ventolin HFA] 2 puff INHALATION RT-Q6H PRN 07/09/21 09/24/21 Norethindrone-E.estradiol-Iron 1 tab PO HS 07/09/21 09/24/21 [Junel Fe 1.5 mg-30 Mcg Tablet] HYDROcodone/APAP 7.5-325MG [[place] 1 tab PO BID PRN 08/23/21 09/24/21 7.5-325] Ergocalciferol [Vitamin D2 (1250 50,000 unit PO GARCIA 09/12/21 09/24/21 Mcg = 99887 Iu)] Previous Rx's Medication Instructions Recorded Aspirin 81 mg PO DAILY 30 Days #30 tab 09/16/21 Allergies Allergy/AdvReac Type Severity Reaction Status Date / Time codeine Allergy Hallucinati Verified 09/24/21 20:38 ons tramadol Allergy Hallucinati Verified 09/24/21 20:38 ons valacyclovir HCl AdvReac BLURRED Verified 09/24/21 20:38 [From Valtrex] VISION Review of Systems ROS Statement: Those systems with pertinent positive or pertinent negative responses have been documented in the HPI. ROS Other: All systems not noted in ROS Statement are negative. Past Medical History Past Medical History: Asthma, Diabetes Mellitus, Fibromyalgia, GERD/Reflux, Sleep Apnea/CPAP/BIPAP, Thyroid Disorder Additional Past Medical History / Comment(s): Migraines with aura, DDD, NIDDM type II, diverticulitis with perforation/colostomy since reversed, IBS, chronic seroma, CARLITOS/no device, polycystic ovaries, hypothyroid, season allergies History of Any Multi-Drug Resistant Organisms: None Reported Past Surgical History: Bariatric Surgery, Bowel Resection, Breast Surgery, Cholecystectomy, Hernia Repair Additional Past Surgical History / Comment(s): 06/06/21 sleeve gastrectomy, rt Breast biopsy. bowel resection with colostomy/ later colostomy reversal, abdominal surgery to remove scar tissue, EGD, colonoscopy, back pain procedures Past Anesthesia/Blood Transfusion Reactions: No Reported Reaction Additional Past Anesthesia/Blood Transfusion Reaction / Comment(s): no hx blood transfusion, received monoclonal antibodies in Feb 2021 Past Psychological History: Anxiety, Bipolar, Depression Smoking Status: Never smoker Past Alcohol Use History: None Reported Past Drug Use History: None Reported - Past Family History Mother History Unknown: Yes Family Medical History: COPD Additional Family Medical History / Comment(s): Mother from COPD at the age of 55 yrs. Brother(s) Family Medical History: Diabetes Mellitus Father Family Medical History: Unable to Obtain General Exam Limitations: no limitations General appearance: alert, in no apparent distress Head exam: Present: atraumatic, normocephalic Eye exam: Present: normal appearance, PERRL, EOMI ENT exam: Present: mucous membranes moist Neck exam: Present: other (Trachea is in midline). Absent: tenderness, meningismus Respiratory exam: Present: normal lung sounds bilaterally. Absent: respiratory distress, wheezes, rales, rhonchi, stridor Cardiovascular Exam: Present: regular rate, normal rhythm, normal heart sounds, other (Normal radial pulses bilaterally) GI/Abdominal exam: Present: soft. Absent: tenderness, guarding Extremities exam: Present: full ROM. Absent: pedal edema Neurological exam: Present: alert, oriented X3, CN II-XII intact, other (Stuttered speech). Absent: motor sensory deficit Psychiatric exam: Present: normal affect, normal mood Skin exam: Present: warm, dry, intact, normal color Course Vital Signs 09/24/21 09/24/21 18:01 19:36 Temperature 98.4 F Pulse Rate 83 68 Respiratory 18 18 Rate Blood Pressure 136/89 143/97 O2 Sat by Pulse 99 100 Oximetry - Reevaluation(s) Reevaluation #1: 09/24/21 22:50 Patient states that her headache/symptoms have improved with ED treatment. Patient continues to have a nonfocal neurological exam. Patient feels comfortable being discharged home at this time., And she states that she will call her friend for a ride home. Patient was counseled about headache/migraines, and she was clearly explained return and follow-up instr uctions. Patient was instructed to follow up closely with her primary care provider, as well as her neurologist. Patient feels comfortable with this plan. Medical Decision Making - Medical Decision Making Patient reports that she has a history of migraine headaches, and she reports having similar headaches/symptoms in the past. Patient also reports having a negative head CT scan, as well as a negative brain MRI in the past month. Patient has a nonfocal neurological exam in the ED. Patient states that she is followed by neurology. I do not suspect an emergent medical condition at this time. Will discharge patient home at this time. Patient to get a ride home from the ED tonight. Patient feels comfortable with this plan. Disposition Clinical Impression: Migraine headache Disposition: HOME SELF-CARE Condition: Stable Instructions (If sedation given, give patient instructions): Migraine Headache (ED), Acute Headache (ED) Additional Instructions: Return to the ER immediately should you develop new or worsening pain, numbness or weakness, persistent vomiting, feeling dizzy or faint, shortness of breath, or new or worsening symptoms. Follow up closely with your primary care provid er, as well as your neurologist. Is patient prescribed a controlled substance at d/c from ED?: No Referrals: Edgardo Inman MD [Primary Care Provider] - 1-2 days Time of Disposition: 22:54
[2021-09-24] MEDS ORDERED: METOCLOPRAMIDE 5 MG/ML 2 ML VIAL IVP STA (20:26)
[2021-09-24] MEDS ORDERED: KETOROLAC 15 MG/ML 1 ML VIAL IVP STA (20:26)
[2021-09-24] MEDS ORDERED: SODIUM CHLORIDE 0.9% 500 ML 500 ML IV STA (20:26)
[2021-09-24] MEDS ORDERED: diphenhydrAMINE 50 MG/ML 1 ML VIAL IVP STA (20:26)
[2021-09-24 23:12] VITALS: BP 134/79; PULSE 71; RESP 16; TEMP 97.9
== END 2021-09-24 23:12 | disposition home or self-care (01) ==
LOC: EC 17:29
DX: G43.909 Migraine, unspecified, not intractable, without status migrainosus (principal); E11.9 Type 2 diabetes mellitus without complications; J45.909 Unspecified asthma, uncomplicated; E07.9 Disorder of thyroid, unspecified; Z79.1 Long term (current) use of non-steroidal anti-inflammatories (NSAID); Z88.5 Allergy status to narcotic agent; Z88.8 Allergy status to other drugs, medicaments and biological substances
CPT/HCPCS: 99283; 96374; 96375; 96361; J1200; J2765; J1885

== ENCOUNTER 2021-09-27 15:11 | Emergency (ER) | payer OTHER ==
[2021-09-27] MEDS ORDERED: SODIUM CHLORIDE 0.9% 1,000 ML IV STA (22:32)
[2021-09-27] MEDS ORDERED: KETOROLAC 15 MG/ML 1 ML VIAL IVP STA (22:32)
[2021-09-27] MEDS ORDERED: diphenhydrAMINE 50 MG/ML 1 ML VIAL IVP STA (22:32)
--- NOTE | 2021-09-27 22:38 | ED ---
General Adult HPI - General Chief complaint: Headache Stated complaint: Migraine,Stuttering,Neuro Time Seen by Provider: 09/27/21 22:20 Source: patient, RN notes reviewed, old records reviewed Mode of arrival: ambulatory Limitations: no limitations - History of Present Illness Initial comments: This is a well-appearing 36-year-old female, alert and oriented 4, presents to the emergency room with an occipital headache and stuttering. Patient has had similar headaches in the past and is currently being treated by neurology and pain management. She states that she does have an appointment with her neurologist this , occipital nerve block scheduled for October 04 and additional MRI and MRA imaging scheduled for October. Patient states that she did take her Ubrelvy and Blue with no relief was told to come to the emergency room for additional medications as needed. She denies any focal neurological deficits. No fevers, no chest pain or difficulty breathing. Denies any trauma, no visual disturbances. -: days(s) (1) Location: head Radiation: non-radiation Severity scale (1-10): 10 Quality: aching Consistency: constant Improves with: none Associated Symptoms: nausea/vomiting, other (stuttering) Treatments Prior to Arrival: other (ubrelvy, norco) - Related Data Home Medications Medication Instructions Recorded Confirmed Levothyroxine Sodium [Synthroid] 50 mcg PO DAILY 05/05/14 09/27/21 Topiramate [Trokendi Xr] 100 mg PO DAILY 07/19/17 09/27/21 Cetirizine HCl [Zyrtec] 10 mg PO DAILY 08/30/19 09/27/21 Pregabalin [Lyrica] 150 mg PO BID 08/30/19 09/27/21 ARIPiprazole [Abilify] 2 mg PO HS 09/14/20 09/27/21 Ondansetron Odt [Zofran ODT] 8 mg PO Q8HR PRN 09/14/20 09/27/21 Venlafaxine HCl [Effexor XR] 225 mg PO HS 09/14/20 09/27/21 Erenumab-Aooe [Aimovig 140 mg SQ Q30D 09/22/20 09/27/21 Autoinjector] Rizatriptan Odt [Maxalt SPRING CR[place]] 10 mg PO DAILY PRN 11/12/20 09/27/21 Albuterol Sulfate [Ventolin HFA] 2 puff INHALATION RT-Q6H PRN 07/09/21 09/27/21 Norethindrone-E.estradiol-Iron 1 tab PO HS 07/09/21 09/27/21 [Junel Fe 1.5 mg-30 Mcg Tablet] HYDROcodone/APAP 7.5-325MG [[place] 1 tab PO BID PRN 08/23/21 09/27/21 7.5-325] Ergocalciferol [Vitamin D2 (1250 50,000 unit PO GARCIA 09/12/21 09/27/21 Mcg = 56258 Iu)] Previous Rx's Medication Instructions Recorded Aspirin 81 mg PO DAILY 30 Days #30 tab 09/16/21 Allergies Allergy/AdvReac Type Severity Reaction Status Date / Time codeine Allergy Hallucinati Verified 09/24/21 20:38 ons tramadol Allergy Hallucinati Verified 09/24/21 20:38 ons valacyclovir HCl AdvReac BLURRED Verified 09/24/21 20:38 [From Valtrex] VISION Review of Systems ROS Statement: Those systems with pertinent positive or pertinent negative responses have been documented in the HPI. ROS Other: All systems not noted in ROS Statement are negative. Past Medical History Past Medical History: Asthma, Diabetes Mellitus, Fibromyalgia, GERD/Reflux, Sleep Apnea/CPAP/BIPAP, Thyroid Disorder Additional Past Medical History / Comment(s): Migraines with aura, DDD, NIDDM type II, diverticulitis with perforation/colostomy since reversed, IBS, chronic seroma, CARLITOS/no device, polycystic ovaries, hypothyroid, season allergies History of Any Multi-Drug Resistant Organisms: None Reported Past Surgical History: Bariatric Surgery, Bowel Resection, Breast Surgery, Cholecystectomy, Hernia Repair Additional Past Surgical History / Comment(s): 06/06/21 sleeve gastrectomy, rt Breast biopsy. bowel resection with colostomy/ later colostomy reversal, abdominal surgery to remove scar tissue, EGD, colonoscopy, back pain procedures Past Anesthesia/Blood Transfusion Reactions: No Reported Reaction Additional Past Anesthesia/Blood Transfusion Reaction / Comment(s): no hx blood transfusion, received monoclonal antibodies in Feb 2021 Past Psychological History: Anxiety, Bipolar, Depression Smoking Status: Never smoker Past Alcohol Use History: None Reported Past Drug Use History: None Reported - Past Family History Mother History Unknown: Yes Family Medical History: COPD Additional Family Medical History / Comment(s): Mother from COPD at the age of 55 yrs. Brother(s) Family Medical History: Diabetes Mellitus Father Family Medical History: Unable to Obtain General Exam Limitations: no limitations General appearance: alert, in no apparent distress Head exam: Present: atraumatic, normocephalic Eye exam: Present: normal appearance, PERRL. Absent: scleral icterus, conjunctival injection, periorbital swelling Neck exam: Present: normal inspection. Absent: meningismus Respiratory exam: Present: normal lung sounds bilaterally. Absent: respiratory distress, wheezes, rales, rhonchi, stridor, chest wall tenderness, accessory muscle use Cardiovascular Exam: Present: regular rate GI/Abdominal exam: Present: soft. Absent: distended, tenderness Extremities exam: Present: normal capillary refill. Absent: tenderness, pedal edema Back exam: Present: normal inspection. Absent: tenderness, CVA tenderness (R), CVA tenderness (L), paraspinal tenderness, vertebral tenderness, rash noted Neurological exam: Present: alert, oriented X3, CN II-XII intact Psychiatric exam: Present: normal affect, normal mood Skin exam: Present: warm, dry, intact, normal color. Absent: cyanosis, diaphoretic, petechiae, pallor Course Vital Signs 09/27/21 09/27/21 09/27/21 15:23 23:21 23:57 Temperature 98.6 F 98.0 F Pulse Rate 75 57 L 72 Respiratory 18 12 18 Rate Blood Pressure 157/106 139/95 135/93 O2 Sat by Pulse 98 100 Oximetry 09/28/21 00:39 Temperature 97.7 F Pulse Rate 77 Respiratory 18 Rate Blood Pressure 127/93 O2 Sat by Pulse 98 Oximetry Medical Decision Making - Medical Decision Making This is a well-appearing 36-year-old female, alert and oriented 4 that presents to the emergency room for occipital headache and stuttering. Patient has been seen multiple times for similar headaches and stuttering in the past. She does have a neurologist and a pain management doctor that she sees regularly. She states she has an appointment this for an occipital nerve block. This is similar to her previous headaches. She has no focal neurological deficits. Denies trauma. She has no visual changes. No fevers. There are no other red flag signs. Vital signs are stable. Patient was given pain medication in the emergency room and is feeling better at discharge. She was instructed to keep her appointment as scheduled this for continuation of care. Case discussed with Dr. Florez. Disposition Clinical Impression: Headache Disposition: HOME SELF-CARE Condition: Good Instructions (If sedation given, give patient instructions): Acute Headache (ED) Additional Instructions: Keep your appointment with your neurologist this any subsequent appointments for occipital nerve block and MRI/MRA with Dr. Azar. Continue previously prescribed medications. Return to the emergency room with any new or concerning symptoms. Is patient prescribed a controlled substance at d/c from ED?: No Referrals: Edgardo Inman MD [Primary Care Provider] - 1-2 days Thomas Azar MD [Medical Doctor] - 1-2 days Time of Disposition: 00:01
[2021-09-27 23:59] VITALS: RESP 18
[2021-09-28 00:41] VITALS: BP 127/93; PULSE 77; TEMP 97.7
== END 2021-09-28 00:39 | disposition home or self-care (01) ==
LOC: EC 15:11
DX: R51.9 Headache, unspecified (principal); J45.909 Unspecified asthma, uncomplicated; E07.9 Disorder of thyroid, unspecified; Z79.1 Long term (current) use of non-steroidal anti-inflammatories (NSAID); Z88.5 Allergy status to narcotic agent; Z88.1 Allergy status to other antibiotic agents
CPT/HCPCS: 99283; 96374; 96375; 96361; J1200; J1885; J1790

== ENCOUNTER 2021-10-03 15:48 | Emergency (ER) | payer OTHER ==
[2021-10-03] MEDS ORDERED: DEXAMETHASONE SOD PHOSPHATE 10 MG/ML 1 ML VIAL IV STA (19:22)
[2021-10-03] MEDS ORDERED: KETOROLAC 15 MG/ML 1 ML VIAL IVP STA (19:22)
[2021-10-03] MEDS ORDERED: METOCLOPRAMIDE 5 MG/ML 2 ML VIAL IVP STA (19:22)
[2021-10-03] MEDS ORDERED: diphenhydrAMINE 50 MG/ML 1 ML VIAL IVP STA (19:22)
[2021-10-03] MEDS ORDERED: SODIUM CHLORIDE 0.9% 1,000 ML IV STA (19:22)
--- NOTE | 2021-10-03 20:02 | CT ---
EXAMINATION TYPE: CT brain wo con DATE OF EXAM: 10/03/2021 COMPARISON: 09/15/2021 HISTORY: neuro deficit, acute CT DLP: 1141.4 mGycm Automated exposure control for dose reduction was used. Images of the brain obtained with no contrast. Ventricles and sulci appear normal. There is no mass effect or midline shift. No sign of intracranial hemorrhage. The calvarium is intact. Skull base is intact. There is normal aeration of the mastoid s inuses. IMPRESSION: Normal unenhanced head CT scan. No change.
--- NOTE | 2021-10-03 20:16 | ED ---
Headache HPI - General Chief Complaint: Headache Stated Complaint: migraine w/ stuttering Time Seen by Provider: 10/03/21 18:58 Mode of arrival: ambulatory Limitations: no limitations - History of Present Illness Initial Comments: Patient is a 36-year-old female presenting with chief complaint of headache. This headache is accompanied by stuttering, patient states that these spells have been happening for several months. Patient follows with a neurologist and has had 2 MRIs and is scheduled for an MRA. Patient states this headache started this afternoon, the pain in stuttering are consistent with her typical headaches, however today they are also accompanied by left hand numbness and tingling. She admits to some nausea with no vomiting. Denies vision or hearing changes, photophobia, phonophobia, dizziness, loss of consciousness, recent injury, chest pain, shortness of breath, weakness, fever, chills, abdominal pain. - Related Data Home Medications Medication Instructions Recorded Confirmed Levothyroxine Sodium [Synthroid] 50 mcg PO DAILY 05/05/14 09/27/21 Topiramate [Trokendi Xr] 100 mg PO DAILY 07/19/17 09/27/21 Cetirizine HCl [Zyrtec] 10 mg PO DAILY 08/30/19 09/27/21 Pregabalin [Lyrica] 150 mg PO BID 08/30/19 09/27/21 ARIPiprazole [Abilify] 2 mg PO HS 09/14/20 09/27/21 Ondansetron Odt [Zofran ODT] 8 mg PO Q8HR PRN 09/14/20 09/27/21 Venlafaxine HCl [Effexor XR] 225 mg PO HS 09/14/20 09/27/21 Erenumab-Aooe [Aimovig 140 mg SQ Q30D 09/22/20 09/27/21 Autoinjector] Rizatriptan Odt [Maxalt DATA MANAGER] 10 mg PO DAILY PRN 11/12/20 09/27/21 Albuterol Sulfate [Ventolin HFA] 2 puff INHALATION RT-Q6H PRN 07/09/21 09/27/21 Norethindrone-E.estradiol-Iron 1 tab PO HS 07/09/21 09/27/21 [Junel Fe 1.5 mg-30 Mcg Tablet] HYDROcodone/APAP 7.5-325MG [[place] 1 tab PO BID PRN 08/23/21 09/27/21 7.5-325] Ergocalciferol [Vitamin D2 (1250 50,000 unit PO GARCIA 09/12/21 09/27/21 Mcg = 96476 Iu)] Previous Rx's Medication Instructions Recorded Aspirin 81 mg PO DAILY 30 Days #30 tab 09/16/21 Allergies Allergy/AdvReac Type Severity Reaction Status Date / Time codeine Allergy Hallucinati Verified 10/03/21 16:30 ons tramadol Allergy Hallucinati Verified 10/03/21 16:30 ons valacyclovir HCl AdvReac BLURRED Verified 10/03/21 16:30 [From Valtrex] VISION Review of Systems ROS Statement: Those systems with pertinent positive or pertinent negative responses have been documented in the HPI. ROS Other: All systems not noted in ROS Statement are negative. Past Medical History Past Medical History: Asthma, Diabetes Mellitus, Fibromyalgia, GERD/Reflux, Sleep Apnea/CPAP/BIPAP, Thyroid Disorder Additional Past Medical History / Comment(s): Migraines with aura, DDD, NIDDM type II, diverticulitis with perforation/colostomy since reversed, IBS, chronic seroma, CARLITOS/no device, polycystic ovaries, hypothyroid, season allergies History of Any Multi-Drug Resistant Organisms: None Reported Past Surgical History: Bariatric Surgery, Bowel Resection, Breast Surgery, Cholecystectomy, Hernia Repair Additional Past Surgical History / Comment(s): 06/06/21 sleeve gastrectomy, rt Breast biopsy. bowel resection with colostomy/ later colostomy reversal, abdominal surgery to remove scar tissue, EGD, colonoscopy, back pain procedures Past Anesthesia/Blood Transfusion Reactions: No Reported Reaction Additional Past Anesthesia/Blood Transfusion Reaction / Comment(s): no hx blood transfusion, received monoclonal antibodies in Feb 2021 Past Psychological History: Anxiety, Bipolar, Depression Smoking Status: Never smoker Past Alcohol Use History: None Reported Past Drug Use History: None Reported - Past Family History Mother History Unknown: Yes Family Medical History: COPD Additional Family Medical History / Comment(s): Mother from COPD at the age of 55 yrs. Brother(s) Family Medical History: Diabetes Mellitus Father Family Medical History: Unable to Obtain General Exam General appearance: alert, in no apparent distress Head exam: Present: atraumatic, normocephalic, normal inspection Eye exam: Present: normal appearance, PERRL, EOMI. Absent: scleral icterus Pupils: Present: normal accommodation Neck exam: Present: normal inspection Respiratory exam: Present: normal lung sounds bilaterally. Absent: respiratory distress, wheezes, rales, rhonchi, stridor Cardiovascular Exam: Present: regular rate, normal rhythm, normal heart sounds. Absent: systolic murmur, diastolic murmur, rubs, gallop, clicks Neurological exam: Present: alert, oriented X3, CN II-XII intact Expanded Neurological exam: Present: other (stuttering, but clearly communicating ideas) Patient oriented to: Present: person, place, time Cranial nerves: EOM's Intact: Normal, Tongue Deviation: Normal, Facial Sensation: Normal Cerebellar function: Finger to Nose: Normal, Heel to [place]: Normal Motor strength exam: RUE: 5, LUE: 5, RLE: 5, LLE: 5 Eye Response: (4) open spontaneously Motor Response: (6) obeys commands Verbal Response: (5) oriented [place] Total: 15 Psychiatric exam: Present: normal affect, normal mood Skin exam: Present: warm, dry, intact, normal color. Absent: rash Course Vital Signs 10/03/21 10/03/21 16:25 22:33 Temperature 98 F Pulse Rate 73 69 Respiratory 20 18 Rate Blood Pressure 107/73 109/61 O2 Sat by Pulse 99 95 Oximetry Medical Decision Making - Medical Decision Making Patient is a 36-year-old female presenting with chief complaint of migraine with stuttering. Patient states that this has occurred several times in the past, and this migraine feels like her typical migraine. Today the migraine is accompanied by left hand numbness which is new for her. On examination there are no focal neurological deficits, patient while stuttering is able to clearly communicate her ideas. CT of the brain without contrast shows no acute intracranial process. Patient was given migraine cocktail and [place]. On reevaluation patient states that she feels improved, stutters noticeably improved. I instructed the patient to follow-up with PCP and neurology as soon as possible. Patient states she has a nerve block scheduled for . Report back to ER if any worsening symptoms. Educated on alarm symptoms and return parameters. Answered all questions. Educated on supportive treatment for migraine. Patient conveyed verbal understanding and agreed to the plan. Disposition Clinical Impression: Migraine Disposition: HOME SELF-CARE Condition: Good Instructions (If sedation given, give patient instructions): Migraine Headache (ED) Additional Instructions: Follow-up with PCP and neurology. Report back to ER if any worsening symptoms. Is patient prescribed a controlled substance at d/c from ED?: No Referrals: Edgardo Inman MD [Primary Care Provider] - As Soon As Possible Thomas Azar MD [Medical Doctor] - As Soon As Possible Time of Disposition: 22:30
[2021-10-03] MEDS ORDERED: HYDROcodone/APAP 7.5-325MG 1 EACH TAB PO ONE (21:46)
[2021-10-03 22:41] VITALS: BP 109/61; PULSE 69; RESP 18; TEMP 98
== END 2021-10-03 22:39 | disposition home or self-care (01) ==
LOC: EC 15:48
DX: G43.909 Migraine, unspecified, not intractable, without status migrainosus (principal); E11.9 Type 2 diabetes mellitus without complications; J45.909 Unspecified asthma, uncomplicated; K21.9 Gastro-esophageal reflux disease without esophagitis; F31.9 Bipolar disorder, unspecified; F41.9 Anxiety disorder, unspecified; M79.7 Fibromyalgia; E03.9 Hypothyroidism, unspecified; Z79.82 Long term (current) use of aspirin; Z79.51 Long term (current) use of inhaled steroids; Z79.890 Hormone replacement therapy; Z79.899 Other long term (current) drug therapy; Z88.5 Allergy status to narcotic agent
CPT/HCPCS: 70450; 99283; 96374; 96375 ×3; J1200; J1100; J2765; J1885

== ENCOUNTER 2021-10-08 18:28 | Emergency (ER) | payer OTHER ==
[2021-10-08 19:07] VITALS: TEMP 98.6
[2021-10-08] MEDS ORDERED: KETOROLAC 15 MG/ML 1 ML VIAL IVP STA (19:31)
[2021-10-08] MEDS ORDERED: diphenhydrAMINE 50 MG/ML 1 ML VIAL IVP STA (19:31)
[2021-10-08] MEDS ORDERED: METOCLOPRAMIDE 5 MG/ML 2 ML VIAL IVP STA (19:31)
[2021-10-08] MEDS ORDERED: SODIUM CHLORIDE 0.9% 1,000 ML IV STA (19:31)
[2021-10-08] MEDS ORDERED: DEXAMETHASONE SOD PHOSPHATE 10 MG/ML 1 ML VIAL IV STA (19:31)
--- NOTE | 2021-10-08 19:39 | ED ---
Headache HPI - General Chief Complaint: Headache Stated Complaint: Migraine Time Seen by Provider: 10/08/21 19:23 Source: patient, RN notes reviewed Mode of arrival: ambulatory Limitations: no limitations - History of Present Illness Initial Comments: This is a 36-year-old female who presents the emergency department for a migraine. Patient has a long-standing history of chronic migraines requiring multiple emergency department visits. She was last evaluated here on 10/03. At that time she had stuttering associated with new onset numbness and tingling in the left hand. Given that the numbness and tingling in the left hand for a new symptom, she had a computed tomography scan of the brain. This revealed no acute changes. She does follow with a neurologist and has had 2 MRIs. She has an MRA pending. When she was treated here on 10/03, she had substantial improvement in symptoms with a migraine cocktail (Reglan, Toradol, Benadryl, and Decadron) and [place]. When patient was initially evaluated, she was wearing her sunglasses and her atwood was over her head due to associated photophobia with her headache. Patient stated that this felt like a typical migraine. She did have audible stuttering, which is a common symptom for her migraines. Denies having any of the numbness or tingling in the hand that she had during her prior visit. She has mild nausea but not vomiting. Denies any fevers, chills, sore throat, cough, dyspnea, chest pain, palpitations, abdominal pain, vomiting, diarrhea, or back pain. MD Complaint: "migraine" Associated Symptoms: photophobia - Related Data Home Medications Medication Instructions Recorded Confirmed Levothyroxine Sodium [Synthroid] 50 mcg PO DAILY 05/05/14 09/27/21 Topiramate [Trokendi Xr] 100 mg PO DAILY 07/19/17 09/27/21 Cetirizine HCl [Zyrtec] 10 mg PO DAILY 08/30/19 09/27/21 Pregabalin [Lyrica] 150 mg PO BID 08/30/19 09/27/21 ARIPiprazole [Abilify] 2 mg PO HS 09/14/20 09/27/21 Ondansetron Odt [Zofran ODT] 8 mg PO Q8HR PRN 09/14/20 09/27/21 Venlafaxine HCl [Effexor XR] 225 mg PO HS 09/14/20 09/27/21 Erenumab-Aooe [Aimovig 140 mg SQ Q30D 09/22/20 09/27/21 Autoinjector] Rizatriptan Odt [Maxalt DRAWER WAXER] 10 mg PO DAILY PRN 11/12/20 09/27/21 Albuterol Sulfate [Ventolin HFA] 2 puff INHALATION RT-Q6H PRN 07/09/21 09/27/21 Norethindrone-E.estradiol-Iron 1 tab PO HS 07/09/21 09/27/21 [Junel Fe 1.5 mg-30 Mcg Tablet] HYDROcodone/APAP 7.5-325MG [[place] 1 tab PO BID PRN 08/23/21 09/27/21 7.5-325] Ergocalciferol [Vitamin D2 (1250 50,000 unit PO GARCIA 09/12/21 09/27/21 Mcg = 31975 Iu)] Previous Rx's Medication Instructions Recorded Aspirin 81 mg PO DAILY 30 Days #30 tab 09/16/21 Allergies Allergy/AdvReac Type Severity Reaction Status Date / Time codeine Allergy Hallucinati Verified 10/03/21 16:30 ons tramadol Allergy Hallucinati Verified 10/03/21 16:30 ons valacyclovir HCl AdvReac BLURRED Verified 10/03/21 16:30 [From Valtrex] VISION Review of Systems ROS Statement: Those systems with pertinent positive or pertinent negative responses have been documented in the HPI. ROS Other: All systems not noted in ROS Statement are negative. Past Medical History Past Medical History: Asthma, Diabetes Mellitus, Fibromyalgia, GERD/Reflux, Sleep Apnea/CPAP/BIPAP, Thyroid Disorder Additional Past Medical History / Comment(s): Migraines with aura, DDD, NIDDM type II, diverticulitis with perforation/colostomy since reversed, IBS, chronic seroma, CARLITOS/no device, polycystic ovaries, hypothyroid, season allergies History of Any Multi-Drug Resistant Organisms: None Reported Past Surgical History: Bariatric Surgery, Bowel Resection, Breast Surgery, Cholecystectomy, Hernia Repair Additional Past Surgical History / Comment(s): 06/06/21 sleeve gastrectomy, rt Breast biopsy. bowel resection with colostomy/ later colostomy reversal, abdominal surgery to remove scar tissue, EGD, colonoscopy, back pain procedures Past Anesthesia/Blood Transfusion Reactions: No Reported Reaction Additional Past Anesthesia/Blood Transfusion Reaction / Comment(s): no hx blood transfusion, received monoclonal antibodies in Feb 2021 Past Psychological History: Anxiety, Bipolar, Depression Smoking Status: Never smoker Past Alcohol Use History: None Reported Past Drug Use History: None Reported - Past Family History Mother History Unknown: Yes Family Medical History: COPD Additional Family Medical History / Comment(s): Mother from COPD at the age of 55 yrs. Brother(s) Family Medical History: Diabetes Mellitus Father Family Medical History: Unable to Obtain General Exam Limitations: no limitations General appearance: alert, in distress Head exam: Present: atraumatic, normocephalic, normal inspection Eye exam: Present: normal appearance, PERRL, EOMI. Absent: scleral icterus, conjunctival injection, periorbital swelling Respiratory exam: Present: normal lung sounds bilaterally. Absent: respiratory distress, wheezes, rales, rhonchi, stridor Cardiovascular Exam: Present: regular rate, normal rhythm, normal heart sounds. Absent: systolic murmur, diastolic murmur, rubs, gallop, clicks Neurological exam: Present: alert, oriented X3, CN II-XII intact, normal gait Psychiatric exam: Present: normal affect, normal mood Skin exam: Present: warm, dry, intact, normal color. Absent: rash Course Vital Signs 10/08/21 10/08/21 19:05 23:07 Temperature 98.6 F Pulse Rate 73 55 L Respiratory 18 16 Rate Blood Pressure 110/81 104/59 O2 Sat by Pulse 98 96 Oximetry Medical Decision Making - Medical Decision Making This is a 36-year-old female who presents to the emergency department for a migraine. Patient has a long-standing history of migraines and presentations to the emergency department. Patient was given a migraine cocktail, composed of Toradol, Benadryl, Reglan, Decadron. She was also given IV fluids. This did not fully control her symptoms, and she was given a dose of morphine and Zofran. Patient states that her symptoms improved, and she had already called her ride at that time and requested discharge. Given that the symptoms were no different from prior and they were able to improve, neither lab work or imaging was obtained. She also had a CT scan of the brain on 10/03 that revealed no acute abnormalities. Return precautions reviewed in depth, the patient is instructed to return to the emergency department with any new, worsening, or concerning symptoms. Patient verbalized understanding. This case was discussed in detail with the attending ED physician. Presentation, findings, and treatment plan discussed in detail as well. Disposition Clinical Impression: Migraine Disposition: HOME SELF-CARE Instructions (If sedation given, give patient instructions): Migraine Headache (ED) Additional Instructions: Return to the emergency department with any new, worsening, or concerning symptoms. Follow-up with your neurologist as advised. Continue on current m igraine medication regimen. Follow up with your primary care provider in 1-2 days. Is patient prescribed a controlled substance at d/c from ED?: No Referrals: Edgardo Inman MD [Primary Care Provider] - 1-2 days
[2021-10-08] MEDS ORDERED: MORPHINE SULFATE 4 MG/ML SYRINGE IVP STA (20:40)
[2021-10-08] MEDS ORDERED: ONDANSETRON 4 MG/2 ML VIAL IVP STA (22:20)
[2021-10-08 23:09] VITALS: BP 104/59; PULSE 55; RESP 16
== END 2021-10-08 23:40 | disposition home or self-care (01) ==
LOC: EC 18:28
DX: G43.909 Migraine, unspecified, not intractable, without status migrainosus (principal); J45.909 Unspecified asthma, uncomplicated; E11.9 Type 2 diabetes mellitus without complications; K21.9 Gastro-esophageal reflux disease without esophagitis; E07.9 Disorder of thyroid, unspecified; M79.7 Fibromyalgia; Z88.6 Allergy status to analgesic agent; Z88.5 Allergy status to narcotic agent; Z88.1 Allergy status to other antibiotic agents; Z79.899 Other long term (current) drug therapy; Z79.890 Hormone replacement therapy
CPT/HCPCS: 99284; 96374; 96375; 96361; J2270; J1200; J1100; J2765; J2405; J1885

== ENCOUNTER 2021-10-11 16:11 | Emergency (ER) | payer OTHER ==
[2021-10-11] MEDS ORDERED: SODIUM CHLORIDE 0.9% 1,000 ML IV STA (20:30)
[2021-10-11] MEDS ORDERED: diphenhydrAMINE 50 MG/ML 1 ML VIAL IVP STA (20:30)
[2021-10-11] MEDS ORDERED: ONDANSETRON 4 MG/2 ML VIAL IVP STA (20:30)
[2021-10-11] MEDS ORDERED: KETOROLAC 15 MG/ML 1 ML VIAL IVP STA (20:30)
[2021-10-11] MEDS ORDERED: HYDROmorphone 0.5 MG/0.5 ML SYRINGE IVP STA (20:33)
--- NOTE | 2021-10-11 20:35 | ED ---
General Adult HPI - General Chief complaint: Headache Stated complaint: Trouble speaking Time Seen by Provider: 10/11/21 20:20 Source: patient Mode of arrival: ambulatory Limitations: no limitations - History of Present Illness Initial comments: Dictation was produced using [employer] dictation software. please excuse any grammatical, word or spelling errors. Chief Complaint: 36-year-old female past medical history of chronic headaches presents to emergency department for acute on chronic headache. History of Present Illness: 36-year-old female she is well-known to emergency department for multiple visitations for headache. Patient states that she has a headache again states that is located to the back. States that it's not the worst headache she ever had in her life. This is patient's 9th visit to emergency department for the same complaint. Patient states she doesn't know what to do she contacts her neurologist and primary care doctor and was instructed to come to the emergency department. Patient is well-known to me as I have seen her multiple occasions in the past. Earlier this month patient was evaluated by neurology where symptoms were thought to be functional stuttering in nature. She denies any focal neurologic deficits. She otherwise reports that everything else going on with her life has been going well. The ROS documented in this emergency department record has been reviewed and confirmed by me. Those systems with pertinent positive or negative responses have been documented in the HPI. All other systems are other negative and/or noncontributory. PHYSICAL EXAM: General Impression: Alert and oriented x3, not in acute distress, stuttering HEENT: Normocephalic atraumatic, extra-ocular movements intact, pupils equal and reactive to light bilaterally, mucous membranes moist. Cardiovascular: Heart regular rate and rhythm Chest: Able to complete full sentences, no retractions, no tachypnea Abdomen: abdomen soft, non-tender, non-distended, no organomegaly Musculoskeletal: Pulses present and equal in all extremities, no peripheral edema Motor: no focal deficits noted Neurological: CN II-XII grossly intact, no focal motor or sensory deficits noted Skin: Intact with no visualized rashes Psych: Normal affect and mood ED course: 36 yo presents to the emergency department for acute on chronic headache. She states that her headache is occipital. She has history of tonic headaches per she's been evaluated multiple occasions by neurologist for her headaches. Vital signs upon arrival are within acceptable limits. Physical examination is benign. She is stuttering at the bedside. The stuttering has been instructed by neurologist in the past and was felt that her stuttering is f unctional. Patient appears to be at her baseline. Patient given headache cocktail and discharge. She is told to follow-up with her neurologist. She is counseled on appropriate use of the emergency department. - Related Data Home Medications Medication Instructions Recorded Confirmed Levothyroxine Sodium [Synthroid] 50 mcg PO DAILY 05/05/14 09/27/21 Topiramate [Trokendi Xr] 100 mg PO DAILY 07/19/17 09/27/21 Cetirizine HCl [Zyrtec] 10 mg PO DAILY 08/30/19 09/27/21 Pregabalin [Lyrica] 150 mg PO BID 08/30/19 09/27/21 ARIPiprazole [Abilify] 2 mg PO HS 09/14/20 09/27/21 Ondansetron Odt [Zofran ODT] 8 mg PO Q8HR PRN 09/14/20 09/27/21 Venlafaxine HCl [Effexor XR] 225 mg PO HS 09/14/20 09/27/21 Erenumab-Aooe [Aimovig 140 mg SQ Q30D 09/22/20 09/27/21 Autoinjector] Rizatriptan Odt [Maxalt [employer] CONSULTANT] 10 mg PO DAILY PRN 11/12/20 09/27/21 Albuterol Sulfate [Ventolin HFA] 2 puff INHALATION RT-Q6H PRN 07/09/21 09/27/21 Norethindrone-E.estradiol-Iron 1 tab PO HS 07/09/21 09/27/21 [Junel Fe 1.5 mg-30 Mcg Tablet] HYDROcodone/APAP 7.5-325MG [[place] 1 tab PO BID PRN 08/23/21 09/27/21 7.5-325] Ergocalciferol [Vitamin D2 (1250 50,000 unit PO GARCIA 09/12/21 09/27/21 Mcg = 89909 Iu)] Previous Rx's Medication Instructions Recorded Aspirin 81 mg PO DAILY 30 Days #30 tab 09/16/21 Allergies Allergy/AdvReac Type Severity Reaction Status Date / Time codeine Allergy Hallucinati Verified 10/11/21 16:42 ons tramadol Allergy Hallucinati Verified 10/11/21 16:42 ons valacyclovir HCl AdvReac BLURRED Verified 10/11/21 16:42 [From Valtrex] VISION Review of Systems ROS Statement: Those systems with pertinent positive or pertinent negative responses have been documented in the HPI. ROS Other: All systems not noted in ROS Statement are negative. Past Medical History Past Medical History: Asthma, Diabetes Mellitus, Fibromyalgia, GERD/Reflux, Sleep Apnea/CPAP/BIPAP, Thyroid Disorder Additional Past Medical History / Comment(s): Migraines with aura, DDD, NIDDM type II, diverticulitis with perforation/colostomy since reversed, IBS, chronic seroma, CARLITOS/no device, polycystic ovaries, hypothyroid, season allergies History of Any Multi-Drug Resistant Organisms: None Reported Past Surgical History: Bariatric Surgery, Bowel Resection, Breast Surgery, Cholecystectomy, Hernia Repair Additional Past Surgical History / Comment(s): 06/06/21 sleeve gastrectomy, rt Breast biopsy. bowel resection with colostomy/ later colostomy reversal, abdominal surgery to remove scar tissue, EGD, colonoscopy, back pain procedures Past Anesthesia/Blood Transfusion Reactions: No Reported Reaction Additional Past Anesthesia/Blood Transfusion Reaction / Comment(s): no hx blood transfusion, received monoclonal antibodies in Feb 2021 Past Psychological History: Anxiety, Bipolar, Depression Smoking Status: Never smoker Past Alcohol Use History: None Reported Past Drug Use History: None Reported - Past Family History Mother History Unknown: Yes Family Medical History: COPD Additional Family Medical History / Comment(s): Mother from COPD at the age of 55 yrs. Brother(s) Family Medical History: Diabetes Mellitus Father Family Medical History: Unable to Obtain General Exam Limitations: no limitations Course Vital Signs 10/11/21 16:40 Temperature 98.3 F Pulse Rate 89 Respiratory 20 Rate Blood Pressure 128/84 O2 Sat by Pulse 98 Oximetry Disposition Clinical Impression: Headache Disposition: HOME SELF-CARE Condition: Good Instructions (If sedation given, give patient instructions): Acute Headache (ED) Is patient prescribed a controlled substance at d/c from ED?: No Referrals: Edgardo Inman MD [Primary Care Provider] - 1-2 days Thomas Azar MD [Medical Doctor] - 1-2 days
[2021-10-11 21:45] VITALS: BP 138/74; PULSE 78; RESP 16; TEMP 98
== END 2021-10-11 21:44 | disposition home or self-care (01) ==
LOC: EC 16:11
DX: R51.9 Headache, unspecified (principal); E11.9 Type 2 diabetes mellitus without complications; J45.909 Unspecified asthma, uncomplicated; K21.9 Gastro-esophageal reflux disease without esophagitis; F31.9 Bipolar disorder, unspecified; F41.9 Anxiety disorder, unspecified; E03.9 Hypothyroidism, unspecified; M79.7 Fibromyalgia; Z79.82 Long term (current) use of aspirin; Z79.890 Hormone replacement therapy; Z79.51 Long term (current) use of inhaled steroids; Z79.899 Other long term (current) drug therapy
CPT/HCPCS: 99283; 96374; 96375 ×3; 96361; J1200; J2405; J1885; J1170

== ENCOUNTER → 2021-10-17 | Outpatient (CLI) | payer OTHER ==
[2021-10-17 15:06] VITALS: BP 120/76; PULSE 76; TEMP 98.5; BMI 38.9
--- NOTE | 2021-10-17 15:59 | P.HPBAR ---
Bariatric H&P - History & Physicial H&P Date: 10/17/21 History & Physicial: Visit/CC: sleeve f/u Patient initial contact: Initial weight: 312 kg Initial weight in pounds: 687.84 Height: 5 ft 7 in Initial BMI: 107.7 Last weight: Current weight: 112.945 kg Current weight in pounds: 249.00 Current BMI: 38.9 [place] body weight (based on NIH guidelines): 61.235 kg Excess body weight loss: 79.3% The patient is a 36 year-old F who presents for Bariatric Assessment. Patient's complaints of migraines. She has some minimal GERD. Past Medical History Past Medical History: Asthma, Diabetes Mellitus, Fibromyalgia, GERD/Reflux, Sleep Apnea/CPAP/BIPAP, Thyroid Disorder Additional Past Medical History / Comment(s): Migraines with aura, DDD, NIDDM type II, diverticulitis with perforation/colostomy since reversed, IBS, chronic seroma, CARLITOS/no device, polycystic ovaries, hypothyroid, season allergies History of Any Multi-Drug Resistant Organisms: None Reported Past Surgical History: Bariatric Surgery, Bowel Resection, Breast Surgery, Cholecystectomy, Hernia Repair Additional Past Surgical History / Comment(s): 06/06/21 sleeve gastrectomy, rt [place] biopsy. bowel resection with colostomy/ later colostomy reversal, abdominal surgery to remove scar tissue, EGD, colonoscopy, back pain procedures Past Anesthesia/Blood Transfusion Reactions: No Reported Reaction Additional Past Anesthesia/Blood Transfusion Reaction / Comm: no hx blood transfusion, received monoclonal antibodies in Feb 2021 Past Psychological History: Anxiety, Bipolar, Depression Additional Psychological History / Comment(s): Pt has eating disorder-binge eater, borderline personality disorder. Pt resides with her boyfriend and his mother. She is independent. Smoking Status: Never smoker Past Alcohol Use History: None Reported Past Drug Use History: None Reported - Past Family History Mother History Unknown: Yes Family Medical History: COPD Additional Family Medical History / Comment(s): Mother from COPD at the age of 55 yrs. Brother(s) Family Medical History: Diabetes Mellitus Father Family Medical History: Unable to Obtain Surgical - Exam Vital Signs Temp Pulse BP 98.5 F 76 120/76 10/17/21 14:58 10/17/21 14:58 10/17/21 14:58 - General well developed, well nourished, no distress - Eyes PERRL - ENT normal pinna - Abdomen Abdomen: soft, non tender Bariatric Assessment & Plan Plan: Status post sleeve gastrectomy. Patient's GERD is minimal and will be observed. She'll follow-up in 4 weeks. Bariatric Checklist Checklist: Plan: Checklist: EGD: 1. Hiatal hernia: 2. H. Pylori: HgbA1c: Vitamin D: Smoking: Never smoker Primary care physician referral: Dr. Alaniz Psychiatry clearance: Cardiology clearance: Sleep study: Diet journal: VTE risk score: VTE risk level: Rehab needs at discharge:
== END ==
LOC: BARWHC3 13:57
PROVIDERS: ATTEND Surgery
DX: Z09 Encounter for follow-up examination after completed treatment for conditions other than malignant neoplasm (principal); K21.9 Gastro-esophageal reflux disease without esophagitis; E11.9 Type 2 diabetes mellitus without complications; E03.9 Hypothyroidism, unspecified; Z98.84 Bariatric surgery status; F41.9 Anxiety disorder, unspecified; F31.9 Bipolar disorder, unspecified; G43.109 Migraine with aura, not intractable, without status migrainosus; Z88.5 Allergy status to narcotic agent; Z88.1 Allergy status to other antibiotic agents
CPT/HCPCS: 99211

== ENCOUNTER 2021-10-20 13:52 | Emergency (ER) | payer OTHER ==
[2021-10-20 14:20] VITALS: TEMP 98.2
[2021-10-20] MEDS ORDERED: METOCLOPRAMIDE 5 MG/ML 2 ML VIAL IVP STA (15:44)
[2021-10-20] MEDS ORDERED: SODIUM CHLORIDE 0.9% 1,000 ML IV STA (15:44)
[2021-10-20] MEDS ORDERED: MAGNESIUM SULFATE-D5W PMX 1 GM in DEXTROSE/WATER 1 100ML.BAG IVPB ONE (15:44)
[2021-10-20] MEDS ORDERED: diphenhydrAMINE 50 MG/ML 1 ML VIAL IVP STA (15:44)
[2021-10-20] MEDS ORDERED: DEXAMETHASONE SOD PHOSPHATE 10 MG/ML 1 ML VIAL IV STA (15:44)
[2021-10-20] MEDS ORDERED: KETOROLAC 15 MG/ML 1 ML VIAL IVP STA (15:44)
--- NOTE | 2021-10-20 15:45 | ED ---
Headache HPI - General Chief Complaint: Headache Stated Complaint: Migraine Time Seen by Provider: 10/20/21 15:30 Mode of arrival: ambulatory Limitations: no limitations - History of Present Illness Initial Comments: 36-year-old female with past medical history of asthma, diabetes, fibromyalgia presents to the emergency department with headache. Patient has a history of chronic migraines. She has been seen 8 times in the emergency department in the past month for similar complaint. She follows with Dr. Cruz. States that she was recently placed on a new medication at the end of September and it seems like it has been helping her headache significantly. States that she was at work today when she had sudden onset of one of her migraines. He denies that it is the worse headache of her life. Denies any new or different symptoms. Located over the left side of her head and into her left neck. She denies any visual changes. Admits photophobia. No fevers. No neck stiffness. No sick contacts. Denies any recent traumatic injuries. Just recently had an MRA on Sunday. No other alleviating, precipitating or modifying factors - Related Data Home Medications Medication Instructions Recorded Confirmed Levothyroxine Sodium [Synthroid] 50 mcg PO DAILY 05/05/14 10/17/21 Topiramate [Trokendi Xr] 100 mg PO DAILY 07/19/17 10/17/21 Cetirizine HCl [Zyrtec] 10 mg PO DAILY 08/30/19 10/17/21 Pregabalin [Lyrica] 150 mg PO BID 08/30/19 10/17/21 ARIPiprazole [Abilify] 2 mg PO HS 09/14/20 10/17/21 Ondansetron Odt [Zofran ODT] 8 mg PO Q8HR PRN 09/14/20 10/17/21 Venlafaxine HCl [Effexor XR] 225 mg PO HS 09/14/20 10/17/21 Erenumab-Aooe [Aimovig 140 mg SQ Q30D 09/22/20 10/17/21 Autoinjector] Rizatriptan Odt [Maxalt [employer]PER[employer] SPECIALIST] 10 mg PO DAILY PRN 11/12/20 10/17/21 Albuterol Sulfate [Ventolin HFA] 2 puff INHALATION RT-Q6H PRN 07/09/21 10/17/21 Norethindrone-E.estradiol-Iron 1 tab PO HS 07/09/21 10/17/21 [Junel Fe 1.5 mg-30 Mcg Tablet] HYDROcodone/APAP 7.5-325MG [[place] 1 tab PO BID PRN 08/23/21 10/17/21 7.5-325] Ergocalciferol [Vitamin D2 (1250 50,000 unit PO GARCIA 09/12/21 10/17/21 Mcg = 14577 Iu)] Atogepant [Qulipta] 30 mg PO DAILY 10/17/21 10/17/21 Previous Rx's Medication Instructions Recorded Aspirin 81 mg PO DAILY 30 Days #30 tab 09/16/21 Allergies Allergy/AdvReac Type Severity Reaction Status Date / Time codeine Allergy Hallucinati Verified 10/20/21 14:20 ons tramadol Allergy Hallucinati Verified 10/20/21 14:20 ons valacyclovir HCl AdvReac BLURRED Verified 10/20/21 14:20 [From Valtrex] VISION Review of Systems ROS Statement: Those systems with pertinent positive or pertinent negative responses have been documented in the HPI. ROS Other: All systems not noted in ROS Statement are negative. Past Medical History Past Medical History: Asthma, Diabetes Mellitus, Fibromyalgia, GERD/Reflux, Sleep Apnea/CPAP/BIPAP, Thyroid Disorder Additional Past Medical History / Comment(s): Migraines with aura, DDD, NIDDM type II, diverticulitis with perforation/colostomy since reversed, IBS, chronic seroma, CARLITOS/no device, polycystic ovaries, hypothyroid, season allergies History of Any Multi-Drug Resistant Organisms: None Reported Past Surgical History: Bariatric Surgery, Bowel Resection, Breast Surgery, Cholecystectomy, Hernia Repair Additional Past Surgical History / Comment(s): 06/06/21 sleeve gastrectomy, rt Breast biopsy. bowel resection with colostomy/ later colostomy reversal, a bdominal surgery to remove scar tissue, EGD, colonoscopy, back pain procedures Past Anesthesia/Blood Transfusion Reactions: No Reported Reaction Additional Past Anesthesia/Blood Transfusion Reaction / Comment(s): no hx blood transfusion, received monoclonal antibodies in Feb 2021 Past Psychological History: Anxiety, Bipolar, Depression Smoking Status: Never smoker Past Alcohol Use History: None Reported Past Drug Use History: None Reported - Past Family History Mother History Unknown: Yes Family Medical History: COPD Additional Family Medical History / Comment(s): Mother from COPD at the age of 55 yrs. Brother(s) Family Medical History: Diabetes Mellitus Father Family Medical History: Unable to Obtain General Exam Limitations: no limitations Course Vital Signs 10/20/21 10/20/21 14:19 18:52 Temperature 98.2 F Pulse Rate 90 69 Respiratory 16 15 Rate Blood Pressure 114/79 109/62 O2 Sat by Pulse 100 98 Oximetry Medical Decision Making - Medical Decision Making Upon arrival patient was placed into 32. A thorough history and physical exam was performed. She did receive a migraine cocktail. Patient is reevaluated and reports to improvement in her headache however is requesting more pain medications. She was given oral [place]. Patient does have further improvement in her headache. She'll be discharged home and is instructed to follow-up with her neurologist. Return for any new or worsening symptoms per patient was discharged home in stable condition Disposition Clinical Impression: Slurred speech, Chronic headaches Disposition: HOME SELF-CARE Condition: Stable Instructions (If sedation given, give patient instructions): Acute Headache (ED) Additional Instructions: Please follow-up with your neurologist. Return to the emergency room for any new or worsening symptoms Is patient prescribed a controlled substance at d/c from ED?: No Referrals: Edgardo Inman MD [Primary Care Provider] - 1-2 days Time of Disposition: 17:58
[2021-10-20] MEDS ORDERED: HYDROcodone/APAP 10-325MG 1 EACH TAB PO ONE (17:54)
[2021-10-20 18:53] VITALS: BP 109/62; PULSE 69; RESP 15
== END 2021-10-20 18:53 | disposition home or self-care (01) ==
LOC: EC 13:52
DX: G89.29 Other chronic pain (principal); R51.9 Headache, unspecified; R47.81 Slurred speech; E11.9 Type 2 diabetes mellitus without complications; J45.909 Unspecified asthma, uncomplicated; K21.9 Gastro-esophageal reflux disease without esophagitis; M79.7 Fibromyalgia; E03.9 Hypothyroidism, unspecified; F31.9 Bipolar disorder, unspecified; F41.9 Anxiety disorder, unspecified; Z79.82 Long term (current) use of aspirin; Z79.51 Long term (current) use of inhaled steroids; Z79.890 Hormone replacement therapy; Z79.899 Other long term (current) drug therapy
CPT/HCPCS: 99283; 96365; 96366; 96375 ×4; J1200; J1100; J2765; J3475; J1885

== ENCOUNTER 2021-10-24 20:57 | Emergency (ER) | payer OTHER ==
[2021-10-24 21:20] VITALS: TEMP 97
[2021-10-24 21:48] LABS: Basophils # (A) 0.1 k/uL (0-0.2); Basophils % (A) 1 %; Eosinophils # (A) 0.1 k/uL (0-0.7); Eosinophils % (A) 1 %; HCT 42.9 % (34.0-46.0); HGB 12.6 gm/dL (11.4-16.0); Hypochromasia Moderate; Lymphocytes % (A) 34 %; MCH 26.1 pg (25.0-35.0); MCHC 29.4 g/dL (31.0-37.0); MCV 88.9 fL (80.0-100.0); Mean Platelet Volume 8.1; Monocytes # (A) 0.3 k/uL (0-1.0); Monocytes % (A) 3 %; Neutrophils # (A) 5.3 k/uL (1.3-7.7); Neutrophils % (A) 60 %; Platelet Count 325 k/uL (150-450); RBC 4.82 m/uL (3.80-5.40); RDW 14.5 % (11.5-15.5); WBC 8.9 k/uL (3.8-10.6)
--- NOTE | 2021-10-24 21:55 | XR ---
EXAMINATION TYPE: XR chest 2V DATE OF EXAM: 10/24/2021 9:36 PM COMPARISON: Multiple radiographs, with the most recent on 09/15/2021 TECHNIQUE: XR chest 2V Frontal and lateral views of the chest. CLINICAL INDICATION:Female, 36 years old with history of Chest Pain; FINDINGS: Lungs/Pleura: There is no evidence of pleural effusion, focal consolidation, or pneumothorax. Pulmonary vascularity: Unremarkable. Heart/mediastinum: Cardiomediastinal silhouette is unremarkable. Musculoskeletal: No acute osseous pathology. IMPRESSION: No acute cardiopulmonary disease/process.
[2021-10-24 21:58] LABS: ALT 31 U/L (4-34); AST 31 U/L (14-36); African American GFR (CKD) >90 (>60 ml/min/1.73 sqM); Albumin 4.1 g/dL (3.5-5.0); Alkaline Phosphatase 77 U/L (38-126); Anion Gap 14 mmol/L; Blood Urea Nitrogen 19 mg/dL (7-17); Calcium 9.4 mg/dL (8.4-10.2); Carbon Dioxide 16 mmol/L (22-30); Chloride 112 mmol/L (98-107); Glucose 219 mg/dL (74-99); Magnesium 2.1 mg/dL (1.6-2.3); Non-African American GFR(CKD) 80 (>60 ml/min/1.73 sqM); Potassium 4.1 mmol/L (3.5-5.1); Sodium 142 mmol/L (137-145); Total Bilirubin 0.2 mg/dL (0.2-1.3); Total Protein 6.9 g/dL (6.3-8.2)
[2021-10-24 22:29] LABS: Partial Thromboplastin Time 24.4 sec (22.0-30.0); Prothrombin Time 10.6 sec (9.0-12.0)
[2021-10-25] MEDS ORDERED: ORPHENADRINE 30 MG/ML 2 ML VIAL IVP STA (00:43)
[2021-10-25] MEDS ORDERED: MAG HYDROX/AL HYDROX/SIMETH 30 ML, HYOSCYAMINE ELIXIR 10 ML, LIDOCAINE VISCOUS 2% 10 ML PO STA ×3 (00:43)
--- NOTE | 2021-10-25 01:55 | ED ---
General Adult HPI - General Chief complaint: Chest Pain Stated complaint: Chest Pain/Numbness in L arm Time Seen by Provider: 10/25/21 00:09 Source: patient, RN notes reviewed Mode of arrival: ambulatory - History of Present Illness Initial comments: 36-year-old female presents to the emergency department for evaluation of mid sternal and epigastric pain, accompanied by right arm twitching and left arm numbness, onset 10:00 this evening. Patient states she had done landscaping and yard work earlier today and thought perhaps that attributed to her symptoms. Reports taking [place] prior to arrival as she has had episodes of chest pain in the past that have been attributed to her fibromyalgia and/or anxiety. Patient states she has a history of migraines and has a headache currently that is accompanied by a stuttering. Patient states this is not unusual for her and these symptoms have been occurring more frequently since . States she had an MRI/MRA of the brain and will receive results from these studies this week. Patient denies blurry vision, dizziness, shortness of breath, nausea, vomiting, diarrhea, and dysuria. - Related Data Home Medications Medication Instructions Recorded Confirmed Levothyroxine Sodium [Synthroid] 50 mcg PO DAILY 05/05/14 10/17/21 Topiramate [Trokendi Xr] 100 mg PO DAILY 07/19/17 10/17/21 Cetirizine HCl [Zyrtec] 10 mg PO DAILY 08/30/19 10/17/21 Pregabalin [Lyrica] 150 mg PO BID 08/30/19 10/17/21 ARIPiprazole [Abilify] 2 mg PO HS 09/14/20 10/17/21 Ondansetron Odt [Zofran ODT] 8 mg PO Q8HR PRN 09/14/20 10/17/21 Venlafaxine HCl [Effexor XR] 225 mg PO HS 09/14/20 10/17/21 Erenumab-Aooe [Aimovig 140 mg SQ Q30D 09/22/20 10/17/21 Autoinjector] Rizatriptan Odt [Maxalt ADMINISTRATIVE REPRESENTATIVE] 10 mg PO DAILY PRN 11/12/20 10/17/21 Albuterol Sulfate [Ventolin HFA] 2 puff INHALATION RT-Q6H PRN 07/09/21 10/17/21 norethindrone-e.estradioL-iron 1 tab PO HS 07/09/21 10/17/21 [Junel Fe 1.5 mg-30 Mcg Tablet] HYDROcodone/APAP 7.5-325MG [[place] 1 tab PO BID PRN 08/23/21 10/17/21 7.5-325] Ergocalciferol [Vitamin D2 (1250 50,000 unit PO GARCIA 09/12/21 10/17/21 Mcg = 35373 Iu)] Atogepant [Qulipta] 30 mg PO DAILY 10/17/21 10/17/21 Previous Rx's Medication Instructions Recorded Aspirin 81 mg PO DAILY 30 Days #30 tab 09/16/21 Famotidine [Pepcid] 20 mg PO BID 14 Days #28 tablet 10/25/21 Cyclobenzaprine [Flexeril] 10 mg PO BID 7 Days #14 tab 10/29/21 Allergies Allergy/AdvReac Type Severity Reaction Status Date / Time codeine Allergy Hallucinati Verified 11/03/21 15:10 ons tramadol Allergy Hallucinati Verified 11/03/21 15:10 ons valacyclovir HCl AdvReac BLURRED Verified 11/03/21 15:10 [From Valtrex] VISION Review of Systems ROS Statement: Those systems with pertinent positive or pertinent negative responses have been documented in the HPI. ROS Other: All systems not noted in ROS Statement are negative. Past Medical History Past Medical History: Asthma, Diabetes Mellitus, Fibromyalgia, GERD/Reflux, Sleep Apnea/CPAP/BIPAP, Thyroid Disorder Additional Past Medical History / Comment(s): Migraines with aura, DDD, NIDDM type II, diverticulitis with perforation/colostomy since reversed, IBS, chronic seroma, CARLITOS/no device, polycystic ovaries, hypothyroid, season allergies History of Any Multi-Drug Resistant Organisms: None Reported Past Surgical History: Bariatric Surgery, Bowel Resection, Breast Surgery, Cholecystectomy, Hernia Repair Additional Past Surgical History / Comment(s): 06/06/21 sleeve gastrectomy, rt Breast biopsy. bowel resection with colostomy/ later colostomy reversal, abdominal surgery to remove scar tissue, EGD, colonoscopy, back pain procedures Past Anesthesia/Blood Transfusion Reactions: No Reported Reaction Additional Past Anesthesia/Blood Transfusion Reaction / Comment(s): no hx blood transfusion, received monoclonal antibodies in Feb 2021 Past Psychological History: Anxiety, Bipolar, Depression Smoking Status: Never smoker Past Alcohol Use History: None Reported Past Drug Use History: None Reported - Past Family History Mother History Unknown: Yes Family Medical History: COPD Additional Family Medical History / Comment(s): Mother from COPD at the age of 55 yrs. Brother(s) Family Medical History: Diabetes Mellitus Father Family Medical History: Unable to Obtain General Exam Limitations: no limitations General appearance: alert, in no apparent distress, other (Well-developed, well- nourished female in no acute distress. Initial temperature 97.0, pulse 92, respirations 18, blood pressure 125/85, pulse ox 98% on room air.) Head exam: Present: atraumatic, normocephalic, normal inspection Eye exam: Present: normal appearance, PERRL, EOMI. Absent: scleral icterus, conjunctival injection, periorbital swelling, periorbital tenderness ENT exam: Present: normal exam, normal oropharynx, mucous membranes moist, TM's normal bilaterally Neck exam: Present: normal inspection, full ROM. Absent: tenderness, lymphadenopathy Respiratory exam: Present: normal lung sounds bilaterally. Absent: respiratory distress, wheezes, rales, rhonchi, stridor, chest wall tenderness Cardiovascular Exam: Present: regular rate, normal rhythm, normal heart sounds. Absent: systolic murmur, diastolic murmur, rubs, gallop, clicks GI/Abdominal exam: Present: soft, normal bowel sounds. Absent: distended, tenderness, guarding, rebound, rigid Right General: Present: other (Patient has a slight intermittent tremor of the right upper extremity. Strength is intact and equal bilaterally. ), normal inspection Vascular: Present: normal capillary refill, radial pulse, brachial pulse, ulnar pulse. Absent: vascular compromise, Pallo Left General: Present: normal inspection Vascular: Present: normal capillary refill, radial pulse, brachial pulse, ulnar pulse. Absent: vascular compromise, Pallo Neurological exam: Present: alert, oriented X3 Expanded Neurological exam: Present: other (Patient has an intermittent tremor of the right upper extremity with no weakness or focal deficit.) Patient oriented to: Present: person, place, time Speech: Present: fluid speech (Initially, patient has fluid speech with no articulation difficulty, however after approximately 10 minutes, patient develops stuttering occurs every third to fifth word.) Cranial nerves: EOM's Intact: Normal, Tongue Deviation: Normal, Nystagmus: Normal, Facial Palsy with Forehead Movement: Normal Cerebellar function: Finger to Nose: Normal Motor strength exam: RUE: 5, LUE: 5, RLE: 5, LLE: 5 Eye Response: (4) open spontaneously Motor Response: (6) obeys commands Verbal Response: (5) oriented [place] Total: 15 Psychiatric exam: Present: normal affect, normal mood, other (Patient does not appear anxious) Skin exam: Present: warm, dry, intact, normal color. Absent: rash Course Vital Signs 10/24/21 10/25/21 10/25/21 21:17 01:19 03:34 Temperature 97.0 F L Pulse Rate 92 76 70 Respiratory 18 16 16 Rate Blood Pressure 125/85 131/92 123/81 O2 Sat by Pulse 98 96 99 Oximetry - Reevaluation(s) Reevaluation #1: 10/25/21 02:03 Upon reevaluation, patient states the tremor in her right arm persists though is not as severe. Left arm numbness nearly resolved. Epigastric discomfort improved. Resting comfortably at this time. Will re-evaluate. 10/25/21 02:39 Patient's discomforts are at baseline for her therefore she will be discharged home to follow up with her PCP as needed. Return parameters discussed detail. Patient verbalizes understanding and agrees with this plan. Medical Decision Making - Medical Decision Making This is a 36-year-old female with a past medical history of asthma, anxiety, depression, fibromyalgia, GERD, and diabetes who presents to the emergency department for evaluation of multiple complaints including right arm tremor, left arm numbness, and midsternal chest/epigastric discomfort. Upon exam, patient is well-appearing and in no acute distress. She does have mild tremor to the right upper extremity after exertional activities today. Also complains of left arm numbness. Oral Pathologist strength, coordination, and range of motion intact symmetrical bilaterally. Chest/epigastric pain non-radiating. Lung sounds clear to auscultation. Laboratory studies are reviewed and are unremarkable with the exception of hyperglycemia. Patient is diabetic and states this is a normal blood sugar for her. EKG is baseline for patient. Chest x-ray is unremarkable. Patient was given a GI cocktail and muscle relaxer with improvement. She will be prescribed Pepcid and instructed to continue her home medication regimen as prescribed. She will be discharged to follow up with her PCP and neurologist as scheduled. Strict return parameters were discussed in detail. Patient ve rbalizes understanding and agrees with this plan. Attending: Rosmery. - Lab Data Result diagrams: 10/24/21 21:04 10/24/21 21:04 Lab Results 10/24/21 10/24/21 10/24/21 Range/Units 21:04 21:04 21:04 WBC 8.9 (3.8-10.6) k/uL RBC 4.82 (3.80-5.40) m/uL Hgb 12.6 (11.4-16.0) gm/dL Hct 42.9 (34.0-46.0) % MCV 88.9 (80.0-100.0) fL MCH 26.1 (25.0-35.0) pg MCHC 29.4 L (31.0-37.0) g/dL RDW 14.5 (11.5-15.5) % Plt Count 325 (150-450) k/uL MPV 8.1 Neutrophils % 60 % Lymphocytes % 34 % Monocytes % 3 % Eosinophils % 1 % Basophils % 1 % Neutrophils # 5.3 (1.3-7.7) k/uL Lymphocytes # 3.0 (1.0-4.8) k/uL Monocytes # 0.3 (0-1.0) k/uL Eosinophils # 0.1 (0-0.7) k/uL Basophils # 0.1 (0-0.2) k/uL Hypochromasia Moderate PT 10.6 (9.0-12.0) sec INR 1.0 (<1.2) APTT 24.4 (22.0-30.0) sec Sodium 142 (137-145) mmol/L Potassium 4.1 (3.5-5.1) mmol/L Chloride 112 H (98-107) mmol/L Carbon Dioxide 16 L (22-30) mmol/L Anion Gap 14 mmol/L BUN 19 H (7-17) mg/dL Creatinine 0.91 (0.52-1.04) mg/dL Est GFR (CKD-EPI)AfAm >90 (>60 ml/min/1.73 sqM) Est GFR (CKD-EPI)NonAf 80 (>60 ml/min/1.73 sqM) Glucose 219 H (74-99) mg/dL Calcium 9.4 (8.4-10.2) mg/dL Magnesium 2.1 (1.6-2.3) mg/dL Total Bilirubin 0.2 (0.2-1.3) mg/dL AST 31 (14-36) U/L ALT 31 (4-34) U/L Alkaline Phosphatase 77 (38-126) U/L Troponin I (0.000-0.034) ng/mL Total Protein 6.9 (6.3-8.2) g/dL Albumin 4.1 (3.5-5.0) g/dL 10/24/21 Range/Units 21:04 WBC (3.8-10.6) k/uL RBC (3.80-5.40) m/uL Hgb (11.4-16.0) gm/dL Hct (34.0-46.0) % MCV (80.0-100.0) fL MCH (25.0-35.0) pg MCHC (31.0-37.0) g/dL RDW (11.5-15.5) % Plt Count (150-450) k/uL MPV Neutrophils % % Lymphocytes % % Monocytes % % Eosinophils % % Basophils % % Neutrophils # (1.3-7.7) k/uL Lymphocytes # (1.0-4.8) k/uL Monocytes # (0-1.0) k/uL Eosinophils # (0-0.7) k/uL Basophils # (0-0.2) k/uL Hypochromasia PT (9.0-12.0) sec INR (<1.2) APTT (22.0-30.0) sec Sodium (137-145) mmol/L Potassium (3.5-5.1) mmol/L Chloride (98-107) mmol/L Carbon Dioxide (22-30) mmol/L Anion Gap mmol/L BUN (7-17) mg/dL Creatinine (0.52-1.04) mg/dL Est GFR (CKD-EPI)AfAm (>60 ml/min/1.73 sqM) Est GFR (CKD-EPI)NonAf (>60 ml/min/1.73 sqM) Glucose (74-99) mg/dL Calcium (8.4-10.2) mg/dL Magnesium (1.6-2.3) mg/dL Total Bilirubin (0.2-1.3) mg/dL AST (14-36) U/L ALT (4-34) U/L Alkaline Phosphatase (38-126) U/L Troponin I <0.012 (0.000-0.034) ng/mL Total Protein (6.3-8.2) g/dL Albumin (3.5-5.0) g/dL - EKG Data EKG shows normal: sinus rhythm Rate: normal EKG Comments: EKG was obtained at 02 13 showing sinus bradycardia with sinus arrhythmia and borderline left axis deviation. Ventricular rate 56, NE interval 160, QRS duration 103, QT/QTc 448/439. Interpretation abnormal ECG. EKG compared with those previously obtained with no significant changes. - Radiology Data Radiology results: report reviewed, image reviewed Two-view chest x-ray was obtained. Report was reviewed in its entirety. Impression per Dr. Delaney is no acute cardiopulmonary disease/process. Disposition Clinical Impression: Non-cardiac chest pain, Chronic migraine Disposition: HOME SELF-CARE Condition: Stable Instructions (If sedation given, give patient instructions): Migraine Headache (ED), Noncardiac Chest Pain (ED) Additional Instructions: Continue taking your home medications as prescribed. Take Famotidine (acid durability engineer) for 2 weeks. Follow-up with your PCP and neurologist as scheduled. Return to the emergency department with any new, worsening, or concerning symptoms. Prescriptions: Famotidine [Pepcid] 20 mg PO BID 14 Days #28 tablet Is patient prescribed a controlled substance at d/c from ED?: No Referrals: Edgardo Inman MD [Primary Care Provider] - 1-2 days Time of Disposition: 02:52
[2021-10-25 02:59] VITALS: RESP 16
[2021-10-25 03:37] VITALS: BP 123/81; PULSE 70
== END 2021-10-25 03:39 | disposition home or self-care (01) ==
LOC: EC 20:57
DX: R07.89 Other chest pain (principal); G43.909 Migraine, unspecified, not intractable, without status migrainosus; J44.9 Chronic obstructive pulmonary disease, unspecified; E11.9 Type 2 diabetes mellitus without complications; E07.9 Disorder of thyroid, unspecified; Z79.899 Other long term (current) drug therapy; Z88.5 Allergy status to narcotic agent; Z88.8 Allergy status to other drugs, medicaments and biological substances
CPT/HCPCS: 36415; 93005; 80053; 83735; 84484; 85025; 85610; 85730; 71046; 99285; 96374; J2360

== ENCOUNTER 2021-10-29 14:13 | Emergency (ER) | payer OTHER ==
[2021-10-29 15:20] VITALS: TEMP 98.3
[2021-10-29] MEDS ORDERED: ORPHENADRINE 30 MG/ML 2 ML VIAL IM STA (18:46)
[2021-10-29] MEDS ORDERED: KETOROLAC 15 MG/ML 1 ML VIAL IM STA (18:46)
--- NOTE | 2021-10-29 19:02 | XR ---
EXAMINATION TYPE: XR lumbar spine 2 or 3V DATE OF EXAM: 10/29/2021 COMPARISON: 06/20/2017 HISTORY: Pain TECHNIQUE: 3 views FINDINGS: Lumbar vertebra have normal alignment. No compression fracture. Posterior elements are inta ct. Sacroiliac joints are intact. There is mild anterior spurring at L2-3. IMPRESSION: Mild spurring. No fracture. No change compared to old exam.
--- NOTE | 2021-10-29 19:03 | XR ---
EXAMINATION TYPE: XR thoracic spine 2V DATE OF EXAM: 10/29/2021 COMPARISON: NONE HISTORY: Pain TECHNIQUE: 3 view FINDINGS: The thoracic vertebra have normal alignment. Posterior elements are intact. No compression fracture. There is no thoracic paraspinal mass. IMPRESSION: Negative thoracic spine exam. No fracture.
[2021-10-29 19:12] VITALS: BP 103/83; PULSE 62; RESP 18
--- NOTE | 2021-10-29 19:24 | ED ---
Back Pain [facility] - General Chief Complaint: Back Pain/Injury Stated Complaint: fall @1245/Back pain Time Seen by Provider: 10/29/21 18:35 Source: patient Limitations: no limitations - History of Present Illness Initial Comments: Patient is a 36-year-old female who presents to the emergency department with a chief complaint of back pain. Patient states she tripped over a tree branch on the ground and fell backward onto her buttocks and back. The fall was witnessed by her . Patient did not lose consciousness. Patient was able ambulate after the fall. Patient endorses middle and lower back pain. Took her previously prescribed Gibson with no relief. Patient is in a pain contract. She also reports left thigh numbness and tingling. Patient states she has a history of back pain with left lower extremity radicular symptoms but it has not occurred in a long time. Denies numbness and tingling in the groin and buttock region. Denies loss of bowel or bladder function. - Related Data Home Medications Medication Instructions Recorded Confirmed Levothyroxine Sodium [Synthroid] 50 mcg PO DAILY 05/05/14 10/17/21 Topiramate [Trokendi Xr] 100 mg PO DAILY 07/19/17 10/17/21 Cetirizine HCl [Zyrtec] 10 mg PO DAILY 08/30/19 10/17/21 Pregabalin [Lyrica] 150 mg PO BID 08/30/19 10/17/21 ARIPiprazole [Abilify] 2 mg PO HS 09/14/20 10/17/21 Ondansetron Odt [Zofran ODT] 8 mg PO Q8HR PRN 09/14/20 10/17/21 Venlafaxine HCl [Effexor XR] 225 mg PO HS 09/14/20 10/17/21 Erenumab-Aooe [Aimovig 140 mg SQ Q30D 09/22/20 10/17/21 Autoinjector] Rizatriptan Odt [Maxalt INDUSTRIAL DESIGNER] 10 mg PO DAILY PRN 11/12/20 10/17/21 Albuterol Sulfate [Ventolin HFA] 2 puff INHALATION RT-Q6H PRN 07/09/21 10/17/21 norethindrone-e.estradioL-iron 1 tab PO HS 07/09/21 10/17/21 [Junel Fe 1.5 mg-30 Mcg Tablet] HYDROcodone/APAP 7.5-325MG [[place] 1 tab PO BID PRN 08/23/21 10/17/21 7.5-325] Ergocalciferol [Vitamin D2 (1250 50,000 unit PO GARCIA 09/12/21 10/17/21 Mcg = 15113 Iu)] Atogepant [Qulipta] 30 mg PO DAILY 10/17/21 10/17/21 Previous Rx's Medication Instructions Recorded Aspirin 81 mg PO DAILY 30 Days #30 tab 09/16/21 Famotidine [Pepcid] 20 mg PO BID 14 Days #28 tablet 10/25/21 Cyclobenzaprine [Flexeril] 10 mg PO BID 7 Days #14 tab 10/29/21 Allergies Allergy/AdvReac Type Severity Reaction Status Date / Time codeine Allergy Hallucinati Verified 10/29/21 15:20 ons tramadol Allergy Hallucinati Verified 10/29/21 15:20 ons valacyclovir HCl AdvReac BLURRED Verified 10/29/21 15:20 [From Valtrex] VISION Review of Systems ROS Statement: Those systems with pertinent positive or pertinent negative responses have been documented in the HPI. ROS Other: All systems not noted in ROS Statement are negative. Past Medical History Past Medical History: Asthma, Diabetes Mellitus, Fibromyalgia, GERD/Reflux, Sleep Apnea/CPAP/BIPAP, Thyroid Disorder Additional Past Medical History / Comment(s): Migraines with aura, DDD, NIDDM type II, diverticulitis with perforation/colostomy since reversed, IBS, chronic seroma, CARLITOS/no device, polycystic ovaries, hypothyroid, season allergies History of Any Multi-Drug Resistant Organisms: None Reported Past Surgical History: Bariatric Surgery, Bowel Resection, Breast Surgery, Cholecystectomy, Hernia Repair Additional Past Surgical History / Comment(s): 06/06/21 sleeve gastrectomy, rt Breast biopsy. bowel resection with colostomy/ later colostomy reversal, abdominal surgery to remove scar tissue, EGD, colonoscopy, back pain procedures Past Anesthesia/Blood Transfusion Reactions: No Reported Reaction Additional Past Anesthesia/Blood Transfusion Reaction / Comment(s): no hx blood transfusion, received monoclonal antibodies in Feb 2021 Past Psychological History: Anxiety, Bipolar, Depression Smoking Status: Never smoker Past Alcohol Use History: None Reported Past Drug Use History: None Reported - Past Family History Mother History Unknown: Yes Family Medical History: COPD Additional Family Medical History / Comment(s): Mother from COPD at the age of 55 yrs. Brother(s) Family Medical History: Diabetes Mellitus Father Family Medical History: Unable to Obtain General Exam Limitations: no limitations General appearance: alert, in no apparent distress Head exam: Present: atraumatic, normocephalic, normal inspection Eye exam: Present: normal appearance, PERRL, EOMI. Absent: scleral icterus, conjunctival injection, periorbital swelling Respiratory exam: Present: normal lung sounds bilaterally. Absent: respiratory distress, wheezes, rales, rhonchi, stridor Cardiovascular Exam: Present: regular rate, normal rhythm, normal heart sounds. Absent: systolic murmur, diastolic murmur, rubs, gallop, clicks Back exam: Present: normal inspection, full ROM, paraspinal tenderness, vertebral tenderness (Bilateral in thoracic and lumbar region) Neurological exam: Present: alert, oriented X3, CN II-XII intact Psychiatric exam: Present: normal affect, normal mood Skin exam: Present: warm, dry, intact, normal color. Absent: rash Course Vital Signs 10/29/21 10/29/21 15:18 19:09 Temperature 98.3 F Pulse Rate 85 62 Respiratory 16 18 Rate Blood Pressure 127/86 103/83 O2 Sat by Pulse 99 100 Oximetry Medical Decision Making - Medical Decision Making This is a 36-year-old female who presents for evaluation and management of back injury. Thorough history and examination were performed. Patient does have left lower extremity radicular symptoms. No red flag symptoms. There is pain with palpation of the thoracic and lumbar paravertebral muscles/vertebral column with no erythema or swelling. Due to tenderness with palpation I will obtain x- rays. Pain controlled with Toradol and Norflex. Thoracic and lumbar x-ray are negative for fracture. Patient will be discharged with Flexeril. She is instructed to not drink alcohol or operate machinery while taking Flexeril. She is instructed to take her prescribed Gibson for pain as well as [id number] anti-inflammatories. She will follow-up with her PCP in 1-2 days and fireworks display specialist if symptoms do not improve in 1-2 weeks. Patient verbalizes understanding and is agreeable to this plan. Dr. Flores is my attending. Disposition Clinical Impression: Mechanical back pain Disposition: HOME SELF-CARE Condition: Good Instructions (If sedation given, give patient instructions): Acute Low Back Pain (ED) Additional Instructions: Please take medication as prescribed. Take your previously prescribed Gibson as directed for pain. You can also take [id number] anti-inflammatories in addition to the Gibson. Use ice for the next 1-2 days to alleviate symptoms and after if symptoms continue use warm compress. Follow-up with primary care provider in one to 2 days. Schedule an appointment with fireworks display specialist if symptoms do not improve in 1-2 weeks. Prescriptions: Cyclobenzaprine [Flexeril] 10 mg PO BID 7 Days #14 tab Is patient prescribed a controlled substance at d/c from ED?: No Referrals: Edgardo Inman MD [Primary Care Provider] - 1-2 days Ric Saenz PAC [PHYSICIAN BORING MACHINE OPERATOR] - 1-2 days Time of Disposition: 19:23
== END 2021-10-29 19:36 | disposition home or self-care (01) ==
LOC: EC 14:13
DX: M54.9 Dorsalgia, unspecified (principal); E11.9 Type 2 diabetes mellitus without complications; J45.909 Unspecified asthma, uncomplicated; M79.7 Fibromyalgia; K21.9 Gastro-esophageal reflux disease without esophagitis; E07.9 Disorder of thyroid, unspecified; Z88.5 Allergy status to narcotic agent; Z88.6 Allergy status to analgesic agent; Z88.1 Allergy status to other antibiotic agents; Z79.899 Other long term (current) drug therapy; Z79.890 Hormone replacement therapy; W18.09XA Striking against other object with subsequent fall, initial encounter
CPT/HCPCS: 72070; 72100; 99283; 96372; J2360; J1885

== ENCOUNTER 2021-11-03 14:07 | Emergency (ER) | payer OTHER ==
[2021-11-03] MEDS ORDERED: diphenhydrAMINE 50 MG/ML 1 ML VIAL IVP STA (20:56)
[2021-11-03] MEDS ORDERED: KETOROLAC 15 MG/ML 1 ML VIAL IVP STA (20:56)
[2021-11-03] MEDS ORDERED: SODIUM CHLORIDE 0.9% 1,000 ML IV ONE (20:56)
[2021-11-03] MEDS ORDERED: METOCLOPRAMIDE 5 MG/ML 2 ML VIAL IVP STA (20:56)
--- NOTE | 2021-11-03 20:57 | ED ---
Headache HPI - General Chief Complaint: Headache Stated Complaint: Headache Time Seen by Provider: 11/03/21 20:02 Mode of arrival: ambulatory Limitations: no limitations - History of Present Illness Initial Comments: This is a 36-year-old female with a history of diabetes, asthma, viral myalgia, and chronic migraine headaches. Patient has a neurologist here in town and [facility] out of town. Patient recently had an MRI showing some cervical DJD. Patient states she was diagnosed with occipital neuralgia. Patient tried her abortive medications at home today but states that her migraine persists. Migraine consistent with what she has had in the past. Some nausea without vomiting. No fever or chills. No neck stiffness. No vision or hearing disturbance. No head trauma. No numbness or tingling. No focal weakness. No gait disturbance. no fever or chills, no changes in vision or hearing, no sore throat or difficulty with speech, no neck pain, no chest pain or shortness of breath, no abdominal pain, no nausea or vomiting, no changes in urination or bowel movements, no numbness or tingling, no extremity pain, no skin rashes or lesions. MD Complaint: headache - Related Data Home Medications Medication Instructions Recorded Confirmed Levothyroxine Sodium [Synthroid] 50 mcg PO DAILY 05/05/14 10/17/21 Topiramate [Trokendi Xr] 100 mg PO DAILY 07/19/17 10/17/21 Cetirizine HCl [Zyrtec] 10 mg PO DAILY 08/30/19 10/17/21 Pregabalin [Lyrica] 150 mg PO BID 08/30/19 10/17/21 ARIPiprazole [Abilify] 2 mg PO HS 09/14/20 10/17/21 Ondansetron Odt [Zofran ODT] 8 mg PO Q8HR PRN 09/14/20 10/17/21 Venlafaxine HCl [Effexor XR] 225 mg PO HS 09/14/20 10/17/21 Erenumab-Aooe [Aimovig 140 mg SQ Q30D 09/22/20 10/17/21 Autoinjector] Rizatriptan Odt [Maxalt CLINICAL NURSE LEADER] 10 mg PO DAILY PRN 11/12/20 10/17/21 Albuterol Sulfate [Ventolin HFA] 2 puff INHALATION RT-Q6H PRN 07/09/21 10/17/21 norethindrone-e.estradioL-iron 1 tab PO HS 07/09/21 10/17/21 [Junel Fe 1.5 mg-30 Mcg Tablet] HYDROcodone/APAP 7.5-325MG [[place] 1 tab PO BID PRN 08/23/21 10/17/21 7.5-325] Ergocalciferol [Vitamin D2 (1250 50,000 unit PO GARCIA 09/12/21 10/17/21 Mcg = 23027 Iu)] Atogepant [Qulipta] 30 mg PO DAILY 10/17/21 10/17/21 Previous Rx's Medication Instructions Recorded Aspirin 81 mg PO DAILY 30 Days #30 tab 09/16/21 Famotidine [Pepcid] 20 mg PO BID 14 Days #28 tablet 10/25/21 Cyclobenzaprine [Flexeril] 10 mg PO BID 7 Days #14 tab 10/29/21 Allergies Allergy/AdvReac Type Severity Reaction Status Date / Time codeine Allergy Hallucinati Verified 11/03/21 15:10 ons tramadol Allergy Hallucinati Verified 11/03/21 15:10 ons valacyclovir HCl AdvReac BLURRED Verified 11/03/21 15:10 [From Valtrex] VISION Review of Systems ROS Statement: Those systems with pertinent positive or pertinent negative responses have been documented in the HPI. ROS Other: All systems not noted in ROS Statement are negative. Past Medical History Past Medical History: Asthma, Diabetes Mellitus, Fibromyalgia, GERD/Reflux, Sleep Apnea/CPAP/BIPAP, Thyroid Disorder Additional Past Medical History / Comment(s): Migraines with aura, DDD, NIDDM type II, diverticulitis with perforation/colostomy since reversed, IBS, chronic seroma, CARLITOS/no device, polycystic ovaries, hypothyroid, season allergies History of Any Multi-Drug Resistant Organisms: None Reported Past Surgical History: Bariatric Surgery, Bowel Resection, Breast Surgery, Cholecystectomy, Hernia Repair Additional Past Surgical History / Comment(s): 06/06/21 sleeve gastrectomy, rt Breast biopsy. bowel resection with colostomy/ later colostomy reversal, abdominal surgery to remove scar tissue, EGD, colonoscopy, back pain procedures Past Anesthesia/Blood Transfusion Reactions: No Reported Reaction Additional Past Anesthesia/Blood Transfusion Reaction / Comment(s): no hx blood transfusion, received monoclonal antibodies in Feb 2021 Past Psychological History: Anxiety, Bipolar, Depression Smoking Status: Never smoker Past Alcohol Use History: None Reported Past Drug Use History: None Reported - Past Family History Mother History Unknown: Yes Family Medical History: COPD Additional Family Medical History / Comment(s): Mother from COPD at the age of 55 yrs. Brother(s) Family Medical History: Diabetes Mellitus Father Family Medical History: Unable to Obtain General Exam Limitations: no limitations General appearance: alert, in distress (mild) Head exam: Present: atraumatic, normocephalic, normal inspection Eye exam: Present: normal appearance, PERRL, EOMI. Absent: scleral icterus, conjunctival injection, periorbital swelling ENT exam: Present: normal exam, normal oropharynx, mucous membranes moist, TM's normal bilaterally, normal external ear exam. Absent: mucous membranes dry Neck exam: Present: normal inspection, full ROM. Absent: tenderness, meningismus, lymphadenopathy, thyromegaly Respiratory exam: Present: normal lung sounds bilaterally. Absent: respiratory distress, wheezes, rales, rhonchi, stridor Cardiovascular Exam: Present: regular rate, normal rhythm, normal heart sounds. Absent: systolic murmur, diastolic murmur, rubs, gallop, clicks GI/Abdominal exam: Present: soft, normal bowel sounds. Absent: distended, tenderness, guarding, rebound, rigid Extremities exam: Present: normal inspection, full ROM, normal capillary refill. Absent: tenderness, pedal edema, joint swelling, calf tenderness Back exam: Present: normal inspection Neurological exam: Present: alert, oriented X3, CN II-XII intact Expanded Patient oriented to: Present: person, place, time Speech: Present: fluid speech Cranial nerves: EOM's Intact: Normal, Gag Reflex: Normal, Tongue Deviation: Normal, Nystagmus: Normal, Facial Sensation: Normal, Facial Palsy with Forehead Movement: Normal, Facial Palsy without Forehead Movement: Normal Cerebellar function: Finger to Nose: Normal, Heel to Jeffers: Normal, Romberg: Normal Upper motor neuron: Mike Neglect: Normal, Pronator Drift: Normal, Babinski Sign: Normal, Sensory Extinction: Normal Sensory exam: Upper Extremity Light Touch: Normal, Upper Extremity Pin Prick: Normal, Lower Extremity Light Touch: Normal, Lower Extremity Pin Prick: Normal Motor strength exam: RUE: 5, LUE: 5, RLE: 5, LLE: 5 Eye Response: (4) open spontaneously Motor Response: (6) obeys commands Verbal Response: (5) oriented Deny Total: 15 Psychiatric exam: Present: normal affect, normal mood Skin exam: Present: warm, dry, intact, normal color. Absent: rash Course Vital Signs 11/03/21 11/03/21 15:08 21:49 Temperature 98.3 F 98.6 F Pulse Rate 78 79 Respiratory 14 18 Rate Blood Pressure 120/79 118/62 O2 Sat by Pulse 100 100 Oximetry - Reevaluation(s) Reevaluation #1: 11/03/21 23:25 Medical record is reviewed Symptoms are improved here in the emergency department Patient is informed of results and questions answered Patient in no distress Patient states she feels well enough to go home. Migraine improved. We'll have patient follow-up with her neurologist. Medical Decision Making - Medical Decision Making Patient presents with her normal migraine headache, not abated by her home medications. Patient has a neurologist and actually had a recent MRI showing no brain abnormality. We'll try the headache cocktail of metoclopramide, diph enhydramine, and ketorolac. Patient was told to return to the ER for any signs or symptoms worsen. Told to return immediately if any other problems arise. All questions answered. Treat ment plan discussed. Patient in agreement Every effort has been made to ensure accuracy of this dictation. However, due to the limitations of electronic medical records and dictation devices, errors in charting still occur. [employer] Lead Worker, Dr. Anderson Disposition Clinical Impression: Migraine headache Disposition: HOME SELF-CARE Condition: Good Instructions (If sedation given, give patient instructions): Acute Headache (ED) Additional Instructions: Follow-up with your neurologist as directed. Follow-up with your regular physician as directed. Return to the ER immediately if any symptoms worsen, new symptoms arise, or any other problems develop. Is patient prescribed a controlled substance at d/c from ED?: No Referrals: Edgardo Inman MD [Primary Care Provider] - 1-2 days Thomas Azar MD [Medical Doctor] - 1-2 days Time of Disposition: 23:25
[2021-11-03 21:49] VITALS: BP 118/62; PULSE 79; RESP 18; TEMP 98.6
== END 2021-11-03 23:38 | disposition home or self-care (01) ==
LOC: EC 14:07
DX: G43.909 Migraine, unspecified, not intractable, without status migrainosus (principal); J45.909 Unspecified asthma, uncomplicated; E11.9 Type 2 diabetes mellitus without complications; M79.7 Fibromyalgia; K21.9 Gastro-esophageal reflux disease without esophagitis; E07.9 Disorder of thyroid, unspecified; Z88.5 Allergy status to narcotic agent; Z88.6 Allergy status to analgesic agent; Z88.1 Allergy status to other antibiotic agents; Z79.899 Other long term (current) drug therapy; Z79.890 Hormone replacement therapy
CPT/HCPCS: 99283; 96374; 96375; 96361; J1200; J2765; J1885

== ENCOUNTER 2021-11-11 16:30 | Emergency (ER) | payer OTHER ==
[2021-11-11] MEDS ORDERED: SODIUM CHLORIDE 0.9% 1,000 ML IV STA (20:48)
--- NOTE | 2021-11-11 21:08 | ED ---
Abdominal Pain HPI - General Chief Complaint: Abdominal Pain Stated Complaint: abd pain Time Seen by Provider: 11/11/21 20:47 Source: patient, RN notes reviewed Mode of arrival: ambulatory Limitations: no limitations - History of Present Illness Initial Comments: This is a pleasant 36-year-old female who has had right lower quadrant abdominal pain for the past few days. She is describing a stabbing type pain which is exacerbated by palpation, no alleviating factors, patient also had some nausea. No changes in balance urination. Patient previously has had a cholecystectomy as well as a bowel resection with partial colectomy, colostomy with reversal. No recent surgeries. Patient denies chance of . She denies any known fever. No urinary symptoms. Patient states she is still having bowel movements and passing gas normally. No headache, no fever or chills, no changes in vision or hearing, no sore throat or difficulty with speech, no neck pain, no chest pain or shortness of breath, no changes in urination or bowel movements, no numbness or tingling, no extremity pain, no skin rashes or lesions. MD Complaint: abdominal pain - Related Data Home Medications Medication Instructions Recorded Confirmed Levothyroxine Sodium [Synthroid] 50 mcg PO DAILY 05/05/14 10/17/21 Topiramate [Trokendi Xr] 100 mg PO DAILY 07/19/17 10/17/21 Cetirizine HCl [Zyrtec] 10 mg PO DAILY 08/30/19 10/17/21 Pregabalin [Lyrica] 150 mg PO BID 08/30/19 10/17/21 ARIPiprazole [Abilify] 2 mg PO HS 09/14/20 10/17/21 Ondansetron Odt [Zofran ODT] 8 mg PO Q8HR PRN 09/14/20 10/17/21 Venlafaxine HCl [Effexor XR] 225 mg PO HS 09/14/20 10/17/21 Erenumab-Aooe [Aimovig 140 mg SQ Q30D 09/22/20 10/17/21 Autoinjector] Rizatriptan Odt [Maxalt FIELD SALES TRAINER] 10 mg PO DAILY PRN 11/12/20 10/17/21 Albuterol Sulfate [Ventolin HFA] 2 puff INHALATION RT-Q6H PRN 07/09/21 10/17/21 norethindrone-e.estradioL-iron 1 tab PO HS 07/09/21 10/17/21 [Junel Fe 1.5 mg-30 Mcg Tablet] HYDROcodone/APAP 7.5-325MG [[place] 1 tab PO BID PRN 08/23/21 10/17/21 7.5-325] Ergocalciferol [Vitamin D2 (1250 50,000 unit PO GARCIA 09/12/21 10/17/21 Mcg = 89542 Iu)] Atogepant [Qulipta] 30 mg PO DAILY 10/17/21 10/17/21 Previous Rx's Medication Instructions Recorded Aspirin 81 mg PO DAILY 30 Days #30 tab 09/16/21 Famotidine [Pepcid] 20 mg PO BID 14 Days #28 tablet 10/25/21 Cyclobenzaprine [Flexeril] 10 mg PO BID 7 Days #14 tab 10/29/21 Cefdinir 300 mg PO Q12HR #14 cap 11/12/21 Allergies Allergy/AdvReac Type Severity Reaction Status Date / Time codeine Allergy Hallucinati Verified 11/11/21 16:44 ons tramadol Allergy Hallucinati Verified 11/11/21 16:44 ons valacyclovir HCl AdvReac BLURRED Verified 11/11/21 16:44 [From Valtrex] VISION Review of Systems ROS Statement: Those systems with pertinent positive or pertinent negative responses have been documented in the HPI. ROS Other: All systems not noted in ROS Statement are negative. Past Medical History Past Medical History: Asthma, Diabetes Mellitus, Fibromyalgia, GERD/Reflux, Sleep Apnea/CPAP/BIPAP, Thyroid Disorder Additional Past Medical History / Comment(s): Migraines with aura, DDD, NIDDM type II, diverticulitis with perforation/colostomy since reversed, IBS, chronic seroma, CARLITOS/no device, polycystic ovaries, hypothyroid, season allergies History of Any Multi-Drug Resistant Organisms: None Reported Past Surgical History: Bariatric Surgery, Bowel Resection, Breast Surgery, Cholecystectomy, Hernia Repair Additional Past Surgical History / Comment(s): 06/06/21 sleeve gastrectomy, rt Breast biopsy. bowel resection with colostomy/ later colostomy reversal, abdominal surgery to remove scar tissue, EGD, colonoscopy, back pain procedures Past Anesthesia/Blood Transfusion Reactions: No Reported Reaction Additional Past Anesthesia/Blood Transfusion Reaction / Comment(s): no hx blood transfusion, received monoclonal antibodies in Feb 2021 Past Psychological History: Anxiety, Bipolar, Depression Smoking Status: Never smoker Past Alcohol Use History: None Reported Past Drug Use History: None Reported - Past Family History Mother History Unknown: Yes Family Medical History: COPD Additional Family Medical History / Comment(s): Mother from COPD at the age of 55 yrs. Brother(s) Family Medical History: Diabetes Mellitus Father Family Medical History: Unable to Obtain General Exam Limitations: no limitations General appearance: alert, in no apparent distress Head exam: Present: atraumatic, normocephalic, normal inspection Eye exam: Present: normal appearance, PERRL, EOMI. Absent: scleral icterus, conjunctival injection, periorbital swelling ENT exam: Present: normal exam, mucous membranes moist Neck exam: Present: normal inspection. Absent: tenderness, meningismus, lymphadenopathy Respiratory exam: Present: normal lung sounds bilaterally. Absent: respiratory distress, wheezes, rales, rhonchi, stridor Cardiovascular Exam: Present: regular rate, normal rhythm, normal heart sounds. Absent: systolic murmur, diastolic murmur, rubs, gallop, clicks GI/Abdominal exam: Present: soft, tenderness (Right lower quadrant and suprapubi c area), normal bowel sounds. Absent: distended, guarding, rebound, rigid Extremities exam: Present: normal inspection, full ROM, normal capillary refill. Absent: tenderness, pedal edema, joint swelling, calf tenderness Back exam: Present: normal inspection Neurological exam: Present: alert, oriented X3, CN II-XII intact Psychiatric exam: Present: normal affect, normal mood Skin exam: Present: warm, dry, intact, normal color. Absent: rash Course Vital Signs 11/11/21 11/12/21 16:42 00:00 Temperature 98.1 F Pulse Rate 79 84 Respiratory 22 20 Rate Blood Pressure 133/84 128/80 O2 Sat by Pulse 98 98 Oximetry - Reevaluation(s) Reevaluation #1: 11/11/21 23:38 Patient does have a minimal elevation in white blood cell count. There are 12 white cells per high-powered field on urinalysis. Urine Prensky is negative. Rare bacteria, 5 squamous epithelial cells, 3 red cells, and 8 hyaline casts. This is questionable whether this is a urinary tract infection or not however, she does have a significant number of white cells. We'll consider treatment pending computed tomography scan. Reevaluation #2: 11/12/21 01:16 Medical record is reviewed Patient still complaining of some pain. Urinalysis does show some evidence of urinary tract infection. Will call for with antibiotics. Explained treatment plan to the patient. All questions answered Patient is informed of results and questions answered Patient in no distress Medical Decision Making - Medical Decision Making Patient's workup here essentially negative other than possible urinary tract infection. I did splint the patient this could be other intra-abdominal or intrapelvic etiology to include ovarian cyst, renal stone which is not radiopaque. There was no evidence of appendicitis. No evidence of diverticulitis. No evidence of bowel abnormality or bowel obstruction. Discussed the findings with the patient. We'll treat with cefdinir and have the patient follow-up with her regular physician. Patient does have [place] at home for pain. Functional abdominal pain also within the differential. Patient should also see her surgeon. The case was discussed in detail with ED attending physician. Presentation, findings, treatment plan discussed in detail. Patient was told to return to the ER for any signs or symptoms worsen. Told to return immediately if any other problems arise. All questions answered. Treatment plan discussed. Patient in agreement Every effort has been made to ensure accuracy of this dictation. However, due to the limitations of electronic medical records and dictation devices, errors in charting still occur. [place] Man Dr. Anderson - Lab Data Result diagrams: 11/11/21 21:32 11/11/21 21:32 Lab Results 11/11/21 11/11/21 11/11/21 Range/Units 21:32 21:32 21:32 WBC 10.7 H (3.8-10.6) k/uL RBC 4.85 (3.80-5.40) m/uL Hgb 13.5 (11.4-16.0) gm/dL Hct 42.4 (34.0-46.0) % MCV 87.5 (80.0-100.0) fL MCH 27.9 (25.0-35.0) pg MCHC 31.9 (31.0-37.0) g/dL RDW 14.6 (11.5-15.5) % Plt Count 418 (150-450) k/uL MPV 7.7 Neutrophils % 61 % Lymphocytes % 32 % Monocytes % 4 % Eosinophils % 1 % Basophils % 1 % Neutrophils # 6.5 (1.3-7.7) k/uL Lymphocytes # 3.5 (1.0-4.8) k/uL Monocytes # 0.4 (0-1.0) k/uL Eosinophils # 0.1 (0-0.7) k/uL Basophils # 0.1 (0-0.2) k/uL Hypochromasia Slight Sodium (137-145) mmol/L Potassium (3.5-5.1) mmol/L Chloride (98-107) mmol/L Carbon Dioxide (22-30) mmol/L Anion Gap mmol/L BUN (7-17) mg/dL Creatinine (0.52-1.04) mg/dL Est GFR (CKD-EPI)AfAm (>60 ml/min/1.73 sqM) Est GFR (CKD-EPI)NonAf (>60 ml/min/1.73 sqM) Glucose (74-99) mg/dL Plasma Lactic Acid Yobani (0.7-2.0) mmol/L Calcium (8.4-10.2) mg/dL Total Bilirubin (0.2-1.3) mg/dL AST (14-36) U/L ALT (4-34) U/L Alkaline Phosphatase (38-126) U/L Total Protein (6.3-8.2) g/dL Albumin (3.5-5.0) g/dL Lipase (23-300) U/L Urine Color Yellow Urine Appearance Cloudy H (Clear) Urine pH 6.5 (5.0-8.0) Ur Specific [place] 1.026 (1.001-1.035) Urine Protein Trace H (Negative) Urine Glucose (UA) Negative (Negative) Urine Ketones Negative (Negative) Urine Blood Negative (Negative) Urine Nitrite Negative (Negative) Urine Bilirubin Negative (Negative) Urine Urobilinogen 2.0 (<2.0) mg/dL Ur Leukocyte Esterase Small H (Negative) Urine RBC 3 (0-5) /hpf Urine WBC 12 H (0-5) /hpf Ur Squamous Epith Cells 5 H (0-4) /hpf Amorphous Sediment Rare H (None) /hpf Urine Bacteria Rare H (None) /hpf Hyaline Casts 8 H (0-2) /lpf Urine Mucus Moderate H (None) /hpf Urine HCG, Qual Not Detected (Not Detectd) 11/11/21 11/11/21 Range/Units 21:32 21:32 WBC (3.8-10.6) k/uL RBC (3.80-5.40) m/uL Hgb (11.4-16.0) gm/dL Hct (34.0-46.0) % MCV (80.0-100.0) fL MCH (25.0-35.0) pg MCHC (31.0-37.0) g/dL RDW (11.5-15.5) % Plt Count (150-450) k/uL MPV Neutrophils % % Lymphocytes % % Monocytes % % Eosinophils % % Basophils % % Neutrophils # (1.3-7.7) k/uL Lymphocytes # (1.0-4.8) k/uL Monocytes # (0-1.0) k/uL Eosinophils # (0-0.7) k/uL Basophils # (0-0.2) k/uL Hypochromasia Sodium 141 (137-145) mmol/L Potassium 3.8 (3.5-5.1) mmol/L Chloride 107 (98-107) mmol/L Carbon Dioxide 24 (22-30) mmol/L Anion Gap 10 mmol/L BUN 14 (7-17) mg/dL Creatinine 0.85 (0.52-1.04) mg/dL Est GFR (CKD-EPI)AfAm >90 (>60 ml/min/1.73 sqM) Est GFR (CKD-EPI)NonAf 88 (>60 ml/min/1.73 sqM) Glucose 93 (74-99) mg/dL Plasma Lactic Acid Yobani 1.0 (0.7-2.0) mmol/L Calcium 9.6 (8.4-10.2) mg/dL Total Bilirubin 0.3 (0.2-1.3) mg/dL AST 23 (14-36) U/L ALT 22 (4-34) U/L Alkaline Phosphatase 72 (38-126) U/L Total Protein 7.4 (6.3-8.2) g/dL Albumin 4.3 (3.5-5.0) g/dL Lipase 181 (23-300) U/L Urine Color Urine Appearance (Clear) Urine pH (5.0-8.0) Ur Specific [place] (1.001-1.035) Urine Protein (Negative) Urine Glucose (UA) (Negative) Urine Ketones (Negative) Urine Blood (Negative) Urine Nitrite (Negative) Urine Bilirubin (Negative) Urine Urobilinogen (<2.0) mg/dL Ur Leukocyte Esterase (Negative) Urine RBC (0-5) /hpf Urine WBC (0-5) /hpf Ur Squamous Epith Cells (0-4) /hpf Amorphous Sediment (None) /hpf Urine Bacteria (None) /hpf Hyaline Casts (0-2) /lpf Urine Mucus (None) /hpf Urine HCG, Qual (Not Detectd) - Radiology Data Radiology results: report reviewed (No acute changes with respect to the computed tomography scan when compared to the previous study, normal appendix per radiology), image reviewed Disposition Clinical Impression: Right sided abdominal pain, Urinary tract infection Disposition: ADMITTED IP TO THIS [facility] Instructions (If sedation given, give patient instructions): Abdominal Pain (ED), Urinary Tract Infection in Women (ED) Additional Instructions: Follow-up with your regular physician as directed. Return to the ER immediately if any symptoms worsen, new symptoms arise, or any other problems develop. Is patient prescribed a controlled substance at d/c from ED?: No Referrals: Edgardo Inman MD [Primary Care Provider] - 11/15/21 Time of Disposition: 01:19
[2021-11-11 22:12] LABS: Basophils # (A) 0.1 k/uL (0-0.2); Basophils % (A) 1 %; Eosinophils # (A) 0.1 k/uL (0-0.7); Eosinophils % (A) 1 %; HCT 42.4 % (34.0-46.0); HGB 13.5 gm/dL (11.4-16.0); Hypochromasia Slight; Lymphocytes # (A) 3.5 k/uL (1.0-4.8); Lymphocytes % (A) 32 %; MCH 27.9 pg (25.0-35.0); MCHC 31.9 g/dL (31.0-37.0); MCV 87.5 fL (80.0-100.0); Mean Platelet Volume 7.7; Monocytes # (A) 0.4 k/uL (0-1.0); Monocytes % (A) 4 %; Neutrophils # (A) 6.5 k/uL (1.3-7.7); Neutrophils % (A) 61 %; Platelet Count 418 k/uL (150-450); RBC 4.85 m/uL (3.80-5.40); RDW 14.6 % (11.5-15.5); WBC 10.7 k/uL (3.8-10.6)
[2021-11-11 22:22] LABS: Amorphous Sediment,Urine Rare /hpf; Appearance,Urine Cloudy (Clear); Bacteria,Urine Rare /hpf; Bilirubin,Urine Negative (Negative); Blood,Urine Negative (Negative); Color,Urine Yellow; Glucose,Urine (UA) Negative (Negative); Hyaline Casts,Urine 8 /lpf (0-2); Ketones,Urine Negative (Negative); Leukocyte Esterase,Urine Small (Negative); Mucus,Urine Moderate /hpf; Nitrite,Urine Negative (Negative); PH, Urine 6.5 (5.0-8.0); Protein,Urine Trace (Negative); RBC,Urine 3 /hpf (0-5); Specific Gravity,Urine 1.026 (1.001-1.035); Squamous Epithelial Cell,Urine 5 /hpf (0-4); WBC,Urine 12 /hpf (0-5)
[2021-11-11 22:27] LABS: ALT 22 U/L (4-34); AST 23 U/L (14-36); African American GFR (CKD) >90 (>60 ml/min/1.73 sqM); Albumin 4.3 g/dL (3.5-5.0); Alkaline Phosphatase 72 U/L (38-126); Anion Gap 10 mmol/L; Blood Urea Nitrogen 14 mg/dL (7-17); Calcium 9.6 mg/dL (8.4-10.2); Carbon Dioxide 24 mmol/L (22-30); Chloride 107 mmol/L (98-107); Glucose 93 mg/dL (74-99); Lipase 181 U/L (23-300); Non-African American GFR(CKD) 88 (>60 ml/min/1.73 sqM); Potassium 3.8 mmol/L (3.5-5.1); Sodium 141 mmol/L (137-145); Total Bilirubin 0.3 mg/dL (0.2-1.3); Total Protein 7.4 g/dL (6.3-8.2)
[2021-11-11] MEDS ORDERED: MORPHINE SULFATE 4 MG/ML SYRINGE IV STA (22:30)
[2021-11-11] MEDS ORDERED: ONDANSETRON 4 MG/2 ML VIAL IVP STA (22:30)
--- NOTE | 2021-11-11 22:45 | XR ---
EXAMINATION TYPE: XR abdomen acute w cxr DATE OF EXAM: 11/11/2021 COMPARISON: 03/09/2021 HISTORY: Abdominal pain TECHNIQUE: 4 views FINDINGS: Heart and mediastinum are normal. Lungs are clear. Diaphragm is normal. Bony thorax appears normal. Lung bases are clear. The bowel gas pattern is normal. No sign of intestinal obstruction or pneumoperitoneum. Fecal pattern is normal. No pathologic calcifications over the kidneys. IMPRESSION: Normal chest. Nonacute abdomen.
[2021-11-12 00:03] VITALS: RESP 20
--- NOTE | 2021-11-12 00:13 | CT ---
EXAMINATION TYPE: CT abdomen pelvis w con DATE OF EXAM: 11/12/2021 COMPARISON: 04/09/2021 HISTORY: rlq pain CT DLP: 2046.9 mGycm Automated exposure control for dose reduction was used. CONTRAST: Performed with IV Contrast, patient injected with 100 mL of Isovue 300. Images obtained from the diaphragm to the floor the pelvis with the IV contrast. Lung bases are clear of consolidation. There is no pleural effusion. Heart size is normal. No pericar dial effusion. There are clips from gastric bariatric surgery. There are clips from cholecystectomy. Spleen pancreas and liver appear intact. The bile ducts are not dilated. No focal liver defect. There is no adrenal mass. Kidneys show normal size and contour. There is satisfactory contrast opacif ication. No hydronephrosis. Delayed images show normal renal excretion. Appendix is posterior and sara ears normal. Bladder distends smoothly. No inguinal hernia. No free fluid in the pelvis. No sign of a pelvic mass. Uterus is anteverted. There is some increased subcutaneous density near the anterior abdominal wall over the anterior mid a bdomen that measures 13 cm in width. Thickness is up to 2.5 cm. The lumbar vertebra. Tach. There is mild narrowing at L2-3 disc with spurring of the endplates. No co mpression fracture. No evidence of lumbar paraspinal mass. The bony pelvis is intact. The hip joints are intact. IMPRESSION: Normal appendix. Increased density in the subcutaneous fat over the anterior abdominal wall not significantly differen t than old exam and consistent with extensive scar tissue. No acute abnormality within the abdomen pe lvis.
[2021-11-12] MEDS ORDERED: CEFDINIR 300 MG CAP PO STA (01:12)
[2021-11-12] MEDS ORDERED: HYDROmorphone 1 MG/ML 1 ML SYRINGE IVP STA (01:15)
[2021-11-12 01:36] VITALS: BP 138/89; PULSE 79; TEMP 97.8
== END 2021-11-12 01:40 | disposition other institution (70) ==
LOC: EC 16:30
DX: N39.0 Urinary tract infection, site not specified (principal); E11.9 Type 2 diabetes mellitus without complications; J45.909 Unspecified asthma, uncomplicated; K21.9 Gastro-esophageal reflux disease without esophagitis; E03.9 Hypothyroidism, unspecified; M79.7 Fibromyalgia; Z79.899 Other long term (current) drug therapy; Z88.5 Allergy status to narcotic agent; Z88.6 Allergy status to analgesic agent; Z88.1 Allergy status to other antibiotic agents; Z79.84 Long term (current) use of oral hypoglycemic drugs; Z79.51 Long term (current) use of inhaled steroids; Z79.890 Hormone replacement therapy
CPT/HCPCS: 36415; 80053; 83605; 83690; 85025; 81001; 81025; 87086; 74022; 74177; 99284; 96374; 96375 ×2; 96361; J2270; J2405; J1170; Q9967

== ENCOUNTER 2021-11-14 21:04 | Emergency (ER) | payer OTHER ==
[2021-11-14 21:30] VITALS: TEMP 98.2
[2021-11-15] MEDS ORDERED: SODIUM CHLORIDE 0.9% 1,000 ML IV STA (00:50)
[2021-11-15] MEDS ORDERED: ONDANSETRON 4 MG/2 ML VIAL IVP STA (00:50)
[2021-11-15] MEDS ORDERED: HYDROmorphone 0.5 MG/0.5 ML SYRINGE IVP STA (00:50)
--- NOTE | 2021-11-15 01:22 | ED ---
General Adult HPI - General Chief complaint: Abdominal Pain Stated complaint: Abdominal Pain Time Seen by Provider: 11/15/21 00:23 Source: patient, RN notes reviewed Mode of arrival: ambulatory Limitations: no limitations - History of Present Illness Initial comments: 36-year-old female presents to the emergency department for evaluation of right mid to lower abdominal pain that has been persistent for 1 week. Patient states she did have 2 episodes of vomiting today. Reports having taken her [place] for pain but did not have any improvement. Patient states she was seen here 2 days ago and had a full workup at which time she was diagnosed with a UTI and started on antibiotics. Patient states she has been taking the antibiotics but is no better. States she is concerned because she has a history of a previous bowel obstruction that required extensive surgery. She had a CT on the second which showed a nonacute abdomen; patient state she was reassured by this finding, however became concerned when her pain worsened today after doing housework. Denies any fever, chills, chest pain, shortness of breath, constipation, diarrhea, dysuria, or hematuria. Denies heavy lifting or exertional activity. - Related Data Home Medications Medication Instructions Recorded Confirmed Levothyroxine Sodium [Synthroid] 50 mcg PO DAILY 05/05/14 10/17/21 Topiramate [Trokendi Xr] 100 mg PO DAILY 07/19/17 10/17/21 Cetirizine HCl [Zyrtec] 10 mg PO DAILY 08/30/19 10/17/21 Pregabalin [Lyrica] 150 mg PO BID 08/30/19 10/17/21 ARIPiprazole [Abilify] 2 mg PO HS 09/14/20 10/17/21 Ondansetron Odt [Zofran ODT] 8 mg PO Q8HR PRN 09/14/20 10/17/21 Venlafaxine HCl [Effexor XR] 225 mg PO HS 09/14/20 10/17/21 Erenumab-Aooe [Aimovig 140 mg SQ Q30D 09/22/20 10/17/21 Autoinjector] Rizatriptan Odt [Maxalt BURN OUT TENDER LACE] 10 mg PO DAILY PRN 11/12/20 10/17/21 Albuterol Sulfate [Ventolin HFA] 2 puff INHALATION RT-Q6H PRN 07/09/21 10/17/21 norethindrone-e.estradioL-iron 1 tab PO HS 07/09/21 10/17/21 [Junel Fe 1.5 mg-30 Mcg Tablet] HYDROcodone/APAP 7.5-325MG [[place] 1 tab PO BID PRN 08/23/21 10/17/21 7.5-325] Ergocalciferol [Vitamin D2 (1250 50,000 unit PO GARCIA 09/12/21 10/17/21 Mcg = 95929 Iu)] Atogepant [Qulipta] 30 mg PO DAILY 10/17/21 10/17/21 Previous Rx's Medication Instructions Recorded Aspirin 81 mg PO DAILY 30 Days #30 tab 09/16/21 Famotidine [Pepcid] 20 mg PO BID 14 Days #28 tablet 10/25/21 Cyclobenzaprine [Flexeril] 10 mg PO BID 7 Days #14 tab 10/29/21 Cefdinir 300 mg PO Q12HR #14 cap 11/12/21 Ondansetron Odt [Zofran Odt] 4 mg PO Q8HR PRN #10 tab 11/15/21 Allergies Allergy/AdvReac Type Severity Reaction Status Date / Time codeine Allergy Hallucinati Verified 11/14/21 21:31 ons tramadol Allergy Hallucinati Verified 11/14/21 21:31 ons valacyclovir HCl AdvReac BLURRED Verified 11/14/21 21:31 [From Valtrex] VISION Review of Systems ROS Statement: Those systems with pertinent positive or pertinent negative responses have been documented in the HPI. ROS Other: All systems not noted in ROS Statement are negative. Past Medical History Past Medical History: Asthma, Diabetes Mellitus, Fibromyalgia, GERD/Reflux, Sleep Apnea/CPAP/BIPAP, Thyroid Disorder Additional Past Medical History / Comment(s): Migraines with aura, DDD, NIDDM type II, diverticulitis with perforation/colostomy since reversed, IBS, chronic seroma, CARLITOS/no device, polycystic ovaries, hypothyroid, season allergies History of Any Multi-Drug Resistant Organisms: None Reported Past Surgical History: Bariatric Surgery, Bowel Resection, Breast Surgery, Cholecystectomy, Hernia Repair Additional Past Surgical History / Comment(s): 06/06/21 sleeve gastrectomy, rt Breast biopsy. bowel resection with colostomy/ later colostomy reversal, abdominal surgery to remove scar tissue, EGD, colonoscopy, back pain procedures Past Anesthesia/Blood Transfusion Reactions: No Reported Reaction Additional Past Anesthesia/Blood Transfusion Reaction / Comment(s): no hx blood transfusion, received monoclonal antibodies in Feb 2021 Past Psychological History: Anxiety, Bipolar, Depression Smoking Status: Never smoker Past Alcohol Use History: None Reported Past Drug Use History: None Reported - Past Family History Mother History Unknown: Yes Family Medical History: COPD Additional Family Medical History / Comment(s): Mother from COPD at the age of 55 yrs. Brother(s) Family Medical History: Diabetes Mellitus Father Family Medical History: Unable to Obtain General Exam Limitations: no limitations (Well-developed, well-nourished female in no acute distress. Initial temperature 98.2, pulse 60, respirations 20, blood pressure 120/81, pulse ox 100% on room air.) General appearance: alert, in no apparent distress Eye exam: Present: normal appearance, PERRL, EOMI. Absent: scleral icterus, conjunctival injection, periorbital swelling ENT exam: Present: normal exam, normal oropharynx, mucous membranes moist Respiratory exam: Present: normal lung sounds bilaterally. Absent: respiratory distress, wheezes, rales, rhonchi, stridor Cardiovascular Exam: Present: regular rate, normal rhythm, normal heart sounds. Absent: systolic murmur, diastolic murmur, rubs, gallop, clicks GI/Abdominal exam: Present: soft, guarding (right mid abdomen), normal bowel sounds. Absent: distended, tenderness, rebound, rigid Back exam: Absent: CVA tenderness (R), CVA tenderness (L) Neurological exam: Present: alert, oriented X3, CN II-XII intact Psychiatric exam: Present: normal affect, normal mood Skin exam: Present: warm, dry, intact, normal color. Absent: rash Course Vital Signs 11/14/21 11/15/21 21:29 04:37 Temperature 98.2 F Pulse Rate 68 73 Respiratory 20 16 Rate Blood Pressure 120/81 143/90 O2 Sat by Pulse 100 98 Oximetry - Reevaluation(s) Reevaluation #1: 11/16/21 04:00 Upon reevaluation, patient is feeling improved. Discussed results from work up; patient is reassured by findings. She will be discharged home to follow up as scheduled. Medical Decision Making - Medical Decision Making 36-year-old female with a past medical history of asthma, diabetes, fibromyalgia, bariatric surgery, and bowel resection presents to the emergency department for evaluation of right-sided abdominal pain that has been ongoing for the past week. Upon exam, patient is well-appearing and in no acute distress. She has burning the right side of the abdomen though has no localized area tenderness. Laboratory studies were obtained and are unremarkable. KUB was negative. Patient did have a CT 2 days ago with no acute findings. She is taking [place] for pain at home. Patient is reassured by these findings and will follow up with her PCP and surgeon. Prescribed Zofran for nausea. Return parameters were discussed in detail. Patient verbalizes understanding and agrees with this plan. Attending: Rosmery. - Lab Data Result diagrams: 11/15/21 01:55 11/15/21 01:55 Lab Results 11/15/21 11/15/21 11/15/21 Range/Units 01:55 01:55 01:55 WBC 9.9 (3.8-10.6) k/uL RBC 4.65 (3.80-5.40) m/uL Hgb 12.9 (11.4-16.0) gm/dL Hct 40.5 (34.0-46.0) % MCV 87.1 (80.0-100.0) fL MCH 27.8 (25.0-35.0) pg MCHC 31.9 (31.0-37.0) g/dL RDW 14.4 (11.5-15.5) % Plt Count 368 (150-450) k/uL MPV 7.7 Neutrophils % 59 % Lymphocytes % 33 % Monocytes % 4 % Eosinophils % 2 % Basophils % 1 % Neutrophils # 5.9 (1.3-7.7) k/uL Lymphocytes # 3.2 (1.0-4.8) k/uL Monocytes # 0.4 (0-1.0) k/uL Eosinophils # 0.2 (0-0.7) k/uL Basophils # 0.1 (0-0.2) k/uL Hypochromasia Moderate Sodium 139 (137-145) mmol/L Potassium 4.2 (3.5-5.1) mmol/L Chloride 108 H (98-107) mmol/L Carbon Dioxide 23 (22-30) mmol/L Anion Gap 8 mmol/L BUN 14 (7-17) mg/dL Creatinine 0.73 (0.52-1.04) mg/dL Est GFR (CKD-EPI)AfAm >90 (>60 ml/min/1.73 sqM) Est GFR (CKD-EPI)NonAf >90 (>60 ml/min/1.73 sqM) Glucose 92 (74-99) mg/dL Plasma Lactic Acid Yobani 1.3 (0.7-2.0) mmol/L Calcium 9.4 (8.4-10.2) mg/dL Total Bilirubin 0.5 (0.2-1.3) mg/dL AST 35 (14-36) U/L ALT 23 (4-34) U/L Alkaline Phosphatase 56 (38-126) U/L Total Protein 7.5 (6.3-8.2) g/dL Albumin 4.3 (3.5-5.0) g/dL Amylase 85 (30-110) U/L Lipase 205 (23-300) U/L Urine Color Urine Appearance (Clear) Urine pH (5.0-8.0) Ur Specific [place] (1.001-1.035) Urine Protein (Negative) Urine Glucose (UA) (Negative) Urine Ketones (Negative) Urine Blood (Negative) Urine Nitrite (Negative) Urine Bilirubin (Negative) Urine Urobilinogen (<2.0) mg/dL Ur Leukocyte Esterase (Negative) Urine HCG, Qual (Not Detectd) 11/15/21 11/15/21 Range/Units 03:21 03:21 WBC (3.8-10.6) k/uL RBC (3.80-5.40) m/uL Hgb (11.4-16.0) gm/dL Hct (34.0-46.0) % MCV (80.0-100.0) fL MCH (25.0-35.0) pg MCHC (31.0-37.0) g/dL RDW (11.5-15.5) % Plt Count (150-450) k/uL MPV Neutrophils % % Lymphocytes % % Monocytes % % Eosinophils % % Basophils % % Neutrophils # (1.3-7.7) k/uL Lymphocytes # (1.0-4.8) k/uL Monocytes # (0-1.0) k/uL Eosinophils # (0-0.7) k/uL Basophils # (0-0.2) k/uL Hypochromasia Sodium (137-145) mmol/L Potassium (3.5-5.1) mmol/L Chloride (98-107) mmol/L Carbon Dioxide (22-30) mmol/L Anion Gap mmol/L BUN (7-17) mg/dL Creatinine (0.52-1.04) mg/dL Est GFR (CKD-EPI)AfAm (>60 ml/min/1.73 sqM) Est GFR (CKD-EPI)NonAf (>60 ml/min/1.73 sqM) Glucose (74-99) mg/dL Plasma Lactic Acid Yobani (0.7-2.0) mmol/L Calcium (8.4-10.2) mg/dL Total Bilirubin (0.2-1.3) mg/dL AST (14-36) U/L ALT (4-34) U/L Alkaline Phosphatase (38-126) U/L Total Protein (6.3-8.2) g/dL Albumin (3.5-5.0) g/dL Amylase (30-110) U/L Lipase (23-300) U/L Urine Color Yellow Urine Appearance Clear (Clear) Urine pH 7.0 (5.0-8.0) Ur Specific [place] 1.019 (1.001-1.035) Urine Protein Negative (Negative) Urine Glucose (UA) Negative (Negative) Urine Ketones Negative (Negative) Urine Blood Negative (Negative) Urine Nitrite Negative (Negative) Urine Bilirubin Negative (Negative) Urine Urobilinogen <2.0 (<2.0) mg/dL Ur Leukocyte Esterase Negative (Negative) Urine HCG, Qual Not Detected (Not Detectd) - Radiology Data Radiology results: report reviewed, image reviewed KUB x-ray was obtained. Report was reviewed in its entirety. Impression per Dr. Bourgeois is normal abdominal x-ray. Disposition Clinical Impression: Abdominal pain, Nausea Disposition: HOME SELF-CARE Condition: Stable Instructions (If sedation given, give patient instructions): Abdominal Pain (ED) Additional Instructions: Continue your home medication regimen as prescribed. Zofran is prescribed for nausea. Keep all follow up appointments. Return to the emergency department with any new, worsening, or concerning symptoms. Prescriptions: Ondansetron Odt [Zofran Odt] 4 mg PO Q8HR PRN #10 tab PRN Reason: Nausea Is patient prescribed a controlled substance at d/c from ED?: No Referrals: Edgardo Inman MD [Primary Care Provider] - 1-2 days Time of Disposition: 04:14
[2021-11-15 02:18] LABS: Basophils # (A) 0.1 k/uL (0-0.2); Basophils % (A) 1 %; Eosinophils # (A) 0.2 k/uL (0-0.7); Eosinophils % (A) 2 %; HCT 40.5 % (34.0-46.0); HGB 12.9 gm/dL (11.4-16.0); Hypochromasia Moderate; Lymphocytes # (A) 3.2 k/uL (1.0-4.8); Lymphocytes % (A) 33 %; MCH 27.8 pg (25.0-35.0); MCHC 31.9 g/dL (31.0-37.0); MCV 87.1 fL (80.0-100.0); Mean Platelet Volume 7.7; Monocytes # (A) 0.4 k/uL (0-1.0); Monocytes % (A) 4 %; Neutrophils # (A) 5.9 k/uL (1.3-7.7); Neutrophils % (A) 59 %; Platelet Count 368 k/uL (150-450); RBC 4.65 m/uL (3.80-5.40); RDW 14.4 % (11.5-15.5); WBC 9.9 k/uL (3.8-10.6)
[2021-11-15 02:32] LABS: ALT 23 U/L (4-34); African American GFR (CKD) >90 (>60 ml/min/1.73 sqM); Albumin 4.3 g/dL (3.5-5.0); Amylase 85 U/L (30-110); Anion Gap 8 mmol/L; Blood Urea Nitrogen 14 mg/dL (7-17); Calcium 9.4 mg/dL (8.4-10.2); Carbon Dioxide 23 mmol/L (22-30); Chloride 108 mmol/L (98-107); Glucose 92 mg/dL (74-99); Lipase 205 U/L (23-300); Non-African American GFR(CKD) >90 (>60 ml/min/1.73 sqM); Sodium 139 mmol/L (137-145); Total Bilirubin 0.5 mg/dL (0.2-1.3); Total Protein 7.5 g/dL (6.3-8.2)
[2021-11-15 02:35] LABS: Potassium 4.2 mmol/L (3.5-5.1)
[2021-11-15 02:36] LABS: AST 35 U/L (14-36); Alkaline Phosphatase 56 U/L (38-126)
[2021-11-15] MEDS ORDERED: HYDROmorphone 1 MG/ML 1 ML SYRINGE IVP STA (03:11)
--- NOTE | 2021-11-15 03:33 | XR ---
EXAM: XR Abdomen, 1 View CLINICAL HISTORY: ITS.REASON XR Reason: pain TECHNIQUE: Frontal supine view of the abdomen/pelvis. COMPARISON: No relevant prior studies available. FINDINGS: Gastrointestinal tract: Unremarkable. No dilation. Bones/joints: Unremarkable. IMPRESSION: Normal abdominal x-ray.
[2021-11-15 03:45] LABS: Appearance,Urine Clear (Clear); Bilirubin,Urine Negative (Negative); Blood,Urine Negative (Negative); Color,Urine Yellow; Glucose,Urine (UA) Negative (Negative); Ketones,Urine Negative (Negative); Leukocyte Esterase,Urine Negative (Negative); Nitrite,Urine Negative (Negative); Protein,Urine Negative (Negative); Specific Gravity,Urine 1.019 (1.001-1.035); Urobilinogen,Urine <2.0 mg/dL (<2.0)
[2021-11-15 04:38] VITALS: BP 143/90; PULSE 73; RESP 16
== END 2021-11-15 04:39 | disposition home or self-care (01) ==
LOC: EC 21:04
DX: R10.31 Right lower quadrant pain (principal); R11.2 Nausea with vomiting, unspecified; E11.9 Type 2 diabetes mellitus without complications; E03.9 Hypothyroidism, unspecified; J45.909 Unspecified asthma, uncomplicated; K21.9 Gastro-esophageal reflux disease without esophagitis; M79.7 Fibromyalgia; F31.9 Bipolar disorder, unspecified; F41.9 Anxiety disorder, unspecified; Z79.82 Long term (current) use of aspirin; Z79.51 Long term (current) use of inhaled steroids; Z79.890 Hormone replacement therapy; Z79.899 Other long term (current) drug therapy
CPT/HCPCS: 36415; 80053; 82150; 83605; 83690; 85025; 81003; 81025; 74018; 99284; 96374; 96375; 96376; 96361; J2405; J1170 ×2

== ENCOUNTER → 2021-11-28 | Outpatient (CLI) | payer OTHER | END | disposition home or self-care (01) | LOC: LAB 16:07 | PROVIDERS: ATTEND Nurse Practitioner Adult Health | DX: Z53.9 Procedure and treatment not carried out, unspecified reason (principal) ==

== ENCOUNTER → 2021-11-28 | Outpatient (CLI) | payer OTHER ==
[2021-11-28 15:18] VITALS: BP 105/74; PULSE 70; TEMP 98.4; BMI 38.7
[2021-11-28 23:02] LABS: Basophils # (A) 0.08 X 10*3/uL (0.00-0.10); Basophils % (A) 0.9 %; Eosinophils # (A) 0.12 X 10*3/uL (0.04-0.35); Eosinophils % (A) 1.3 %; HCT 40.3 % (37.2-46.3); Immature Grans, Automated 0.2 %; Lymphocytes # (A) 2.46 X 10*3/uL (0.90-5.00); Lymphocytes % (A) 27.3 %; MCH 25.7 pg (27.0-32.0); MCHC 29.8 g/dL (32.0-37.0); MCV 86.3 fL (80.0-97.0); Mean Platelet Volume 10.4 fL (9.5-12.2); Monocytes # (A) 0.64 X 10*3/uL (0.20-1.00); Monocytes % (A) 7.1 %; NRBC Per 100 WBC 0 /100 WBCS (0.0-0.0); Neutrophils # (A) 5.68 X 10*3/uL (1.80-7.70); Neutrophils % (A) 63.2 %; Platelet Count 407 X 10*3/uL (140-440); RBC 4.67 X 10*6/uL (4.10-5.20); RDW 15.1 % (11.5-14.5)
[2021-11-29 01:08] LABS: % Iron Saturation 3.78 (12.00-45.00); ALT 25 U/L (8-44); AST 19 U/L (13-35); African American GFR (CKD) 113.5 (60.0-200.0); Albumin 4.3 g/dL (3.8-4.9); Albumin/Globulin Ratio 1.63 (1.60-3.17); Alkaline Phosphatase 67 U/L (41-126); BUN/Creat Ratio 18.96 Ratio (12.00-20.00); Blood Urea Nitrogen 14.6 mg/dL (9.0-27.0); Calcium 9.8 mg/dL (8.7-10.3); Carbon Dioxide 22.5 mmol/L (20.0-27.5); Chloride 107 mmol/L (96-109); Ferritin 6.5 ng/mL (10.0-291.0); Globulin 2.7 g/dL (1.6-3.3); Glucose 100 mg/dL (70-110); Iron 21 ug/dL (50-170); Potassium 4.6 mmol/L (3.5-5.5); Sodium 143 mmol/L (135-145); Total Bilirubin <0.15 mg/dL (0.30-1.20); Total Iron Binding Capacity 563 ug/dL (228-460)
[2021-11-29 01:32] LABS: Magnesium 2.2 mg/dL (1.5-2.4)
[2021-11-29 11:50] LABS: Zinc, Serum 47 ug/dL (60-130)
[2021-11-30 10:36] LABS: Vitamin A 81 ug/dL (38-106)
[2021-11-30 13:17] LABS: Vit B1(Thiamine) 63 ug/L (38-122)
[2021-11-30 14:26] LABS: Selenium 138 mcg/L (63-160)
--- NOTE | 2021-12-06 16:34 | P.HPBAR ---
Bariatric H&P - History & Physicial H&P Date: 11/28/21 History & Physicial: Visit/CC: sleeve f/u Patient initial contact: Initial weight: 312 kg Initial weight in pounds: 687.84 Height: 5 ft 7 in Initial BMI: 107.7 Last weight: Current weight: 112.037 kg Current weight in pounds: 247.00 Current BMI: 38.7 [place] body weight (based on NIH guidelines): 61.235 kg Excess body weight loss: 79.7% The patient is a 36 year-old F who presents for Bariatric Assessment. Patient resents today for sleeve gastrectomy follow-up. She's doing quite well. She's had some minimal GERD. Past Medical History Past Medical History: Asthma, Diabetes Mellitus, Fibromyalgia, GERD/Reflux, Sleep Apnea/CPAP/BIPAP, Thyroid Disorder Additional Past Medical History / Comment(s): Migraines with aura, DDD, NIDDM type II, diverticulitis with perforation/colostomy since reversed, IBS, chronic seroma, CARLITOS/no device, polycystic ovaries, hypothyroid, season allergies History of Any Multi-Drug Resistant Organisms: None Reported Past Surgical History: Bariatric Surgery, Bowel Resection, Breast Surgery, Cholecystectomy, Hernia Repair Additional Past Surgical History / Comment(s): 06/06/21 sleeve gastrectomy, rt Breast biopsy. bowel resection with colostomy/ later colostomy reversal, abdominal surgery to remove scar tissue, EGD, colonoscopy, back pain procedures Past Anesthesia/Blood Transfusion Reactions: No Reported Reaction Additional Past Anesthesia/Blood Transfusion Reaction / Comm: no hx blood transfusion, received monoclonal antibodies in Feb 2021 Past Psychological History: Anxiety, Bipolar, Depression Additional Psychological History / Comment(s): Pt has eating disorder-binge eater, borderline personality disorder. Pt resides with her boyfriend and his mother. She is independent. Smoking Status: Never smoker Past Alcohol Use History: None Reported Past Drug Use History: None Reported - Past Family History Mother History Unknown: Yes Family Medical History: COPD Additional Family Medical History / Comment(s): Mother from COPD at the age of 55 yrs. Brother(s) Family Medical History: Diabetes Mellitus Father Family Medical History: Unable to Obtain Surgical - Exam Vital Signs Temp Pulse BP 98.4 F 70 105/74 11/28/21 15:13 11/28/21 15:13 11/28/21 15:13 - General well developed, well nourished, no distress - Eyes PERRL - ENT normal pinna - Neck no masses - Respiratory normal expansion - Cardiovascular Rhythm: regular - Abdomen Abdomen: soft, non tender Results - Labs 11/28/21 16:36 11/28/21 16:36 Bariatric Assessment & Plan Plan: Patient's GERD is minimal. She'll be observed. Her current BMI is 38. She is doing well surgically. Bariatric Checklist Checklist: Plan: Checklist: EGD: 1. Hiatal hernia: 2. H. Pylori: HgbA1c: Vitamin D: Smoking: Never smoker Primary care physician referral: Dr. Alaniz Psychiatry clearance: Cardiology clearance: Sleep study: Diet journal: VTE risk score: VTE risk level: Rehab needs at discharge:
== END ==
LOC: BARWHC3 14:22
PROVIDERS: ATTEND Surgery
DX: E66.01 Morbid (severe) obesity due to excess calories (principal); K21.9 Gastro-esophageal reflux disease without esophagitis; Z71.3 Dietary counseling and surveillance; D50.8 Other iron deficiency anemias; E55.9 Vitamin D deficiency, unspecified; T56.894A Toxic effect of other metals, undetermined, initial encounter; K90.9 Intestinal malabsorption, unspecified; Z68.38 Body mass index [BMI] 38.0-38.9, adult; Z88.5 Allergy status to narcotic agent; Z88.1 Allergy status to other antibiotic agents; J45.909 Unspecified asthma, uncomplicated; E11.9 Type 2 diabetes mellitus without complications; G43.109 Migraine with aura, not intractable, without status migrainosus; E03.9 Hypothyroidism, unspecified; Z98.84 Bariatric surgery status; F31.9 Bipolar disorder, unspecified; F41.9 Anxiety disorder, unspecified
CPT/HCPCS: 84255; 84425; 80053; 82607; 82728; 82746; 83540; 83550; 83735; 84443; 84590; 84630; 85025; 82306; 97803; G0463; 99211

== ENCOUNTER 2021-11-30 17:01 | Emergency (ER) | payer OTHER ==
[2021-11-30] MEDS ORDERED: METOCLOPRAMIDE 5 MG/ML 2 ML VIAL IVP STA (18:30)
[2021-11-30] MEDS ORDERED: KETOROLAC 15 MG/ML 1 ML VIAL IVP STA (18:30)
[2021-11-30] MEDS ORDERED: diphenhydrAMINE 50 MG/ML 1 ML VIAL IVP STA (18:30)
[2021-11-30] MEDS ORDERED: SODIUM CHLORIDE 0.9% 1,000 ML IV STA (18:30)
--- NOTE | 2021-11-30 20:06 | ED ---
Headache HPI - General Chief Complaint: Headache Stated Complaint: Migrains and speech problems Time Seen by Provider: 11/30/21 18:12 Mode of arrival: ambulatory Limitations: no limitations - History of Present Illness Initial Comments: Patient is a 36-year-old female with a past medical history of diabetes mellitus, fibromyalgia, and migraines who presents to the emergency department with a chief complaint of migraine. Patient is well-known to our emergency Department for evaluation of migraines. States this migraine started 2 days ago. States this is a similar headache to her chronic headache. States she has been taking her preventative medications at home. Has attempted her abortive medications which she states are Flexeril and [place]. Denies fever. No focal numbness or weakness. Does report speech stuttering which she states is not unusual for her migraines. States she tried to see her neurologist who she cannot get a hold of. - Related Data Home Medications Medication Instructions Recorded Confirmed Levothyroxine Sodium [Synthroid] 50 mcg PO DAILY 05/05/14 11/28/21 Topiramate [Trokendi Xr] 100 mg PO DAILY 07/19/17 11/28/21 Cetirizine HCl [Zyrtec] 10 mg PO DAILY 08/30/19 11/28/21 Pregabalin [Lyrica] 150 mg PO BID 08/30/19 11/28/21 ARIPiprazole [Abilify] 2 mg PO HS 09/14/20 11/28/21 Ondansetron Odt [Zofran ODT] 8 mg PO Q8HR PRN 09/14/20 11/28/21 Venlafaxine HCl [Effexor XR] 225 mg PO HS 09/14/20 11/28/21 Erenumab-Aooe [Aimovig 140 mg SQ Q30D 09/22/20 11/28/21 Autoinjector] Rizatriptan Odt [Maxalt CLASSIFICATION INSPECTOR] 10 mg PO DAILY PRN 11/12/20 11/28/21 Albuterol Sulfate [Ventolin HFA] 2 puff INHALATION RT-Q6H PRN 07/09/21 11/28/21 norethindrone-e.estradioL-iron 1 tab PO HS 07/09/21 11/28/21 [Junel Fe 1.5 mg-30 Mcg Tablet] HYDROcodone/APAP 7.5-325MG [[place] 1 tab PO BID PRN 08/23/21 11/28/21 7.5-325] Ergocalciferol [Vitamin D2 (1250 50,000 unit PO GARCIA 09/12/21 11/28/21 Mcg = 21277 Iu)] Atogepant [Qulipta] 60 mg PO HS 11/28/21 11/28/21 Previous Rx's Medication Instructions Recorded Aspirin 81 mg PO DAILY 30 Days #30 tab 09/16/21 Famotidine [Pepcid] 20 mg PO BID 14 Days #28 tablet 10/25/21 Cyclobenzaprine [Flexeril] 10 mg PO BID 7 Days #14 tab 10/29/21 Cefdinir 300 mg PO Q12HR #14 cap 11/12/21 Ondansetron Odt [Zofran Odt] 4 mg PO Q8HR PRN #10 tab 11/15/21 Allergies Allergy/AdvReac Type Severity Reaction Status Date / Time codeine Allergy Hallucinati Verified 11/30/21 17:32 ons tramadol Allergy Hallucinati Verified 11/30/21 17:32 ons valacyclovir HCl AdvReac BLURRED Verified 11/30/21 17:32 [From Valtrex] VISION Review of Systems ROS Statement: Those systems with pertinent positive or pertinent negative responses have been documented in the HPI. ROS Other: All systems not noted in ROS Statement are negative. Past Medical History Past Medical History: Asthma, Diabetes Mellitus, Fibromyalgia, GERD/Reflux, Sleep Apnea/CPAP/BIPAP, Thyroid Disorder Additional Past Medical History / Comment(s): Migraines with aura, DDD, NIDDM type II, diverticulitis with perforation/colostomy since reversed, IBS, chronic seroma, CARLITOS/no device, polycystic ovaries, hypothyroid, season allergies History of Any Multi-Drug Resistant Organisms: None Reported Past Surgical History: Bariatric Surgery, Bowel Resection, Breast Surgery, Cholecystectomy, Hernia Repair Additional Past Surgical History / Comment(s): 06/06/21 sleeve gastrectomy, rt Breast biopsy. bowel resection with colostomy/ later colostomy reversal, abdominal surgery to remove scar tissue, EGD, colonoscopy, back pain procedures Past Anesthesia/Blood Transfusion Reactions: No Reported Reaction Additional Past Anesthesia/Blood Transfusion Reaction / Comment(s): no hx blood transfusion, received monoclonal antibodies in Feb 2021 Past Psychological History: Anxiety, Bipolar, Depression Smoking Status: Never smoker Past Alcohol Use History: None Reported Past Drug Use History: None Reported - Past Family History Mother History Unknown: Yes Family Medical History: COPD Additional Family Medical History / Comment(s): Mother from COPD at the age of 55 yrs. Brother(s) Family Medical History: Diabetes Mellitus Father Family Medical History: Unable to Obtain General Exam Limitations: no limitations General appearance: alert, in no apparent distress Head exam: Present: atraumatic, normocephalic, normal inspection Eye exam: Present: normal appearance, PERRL, EOMI. Absent: scleral icterus, conjunctival injection, periorbital swelling Neck exam: Present: normal inspection. Absent: tenderness, meningismus, lymphadenopathy Respiratory exam: Present: normal lung sounds bilaterally. Absent: respiratory distress, wheezes, rales, rhonchi, stridor Cardiovascular Exam: Present: regular rate, normal rhythm, normal heart sounds. Absent: systolic murmur, diastolic murmur, rubs, gallop, clicks Neurological exam: Present: alert, oriented X3, CN II-XII intact Psychiatric exam: Present: normal affect, normal mood Skin exam: Present: warm, dry, intact, normal color. Absent: rash Course Vital Signs 11/30/21 11/30/21 17:31 21:11 Temperature 99 F 98.2 F Pulse Rate 82 74 Respiratory 20 18 Rate Blood Pressure 109/79 116/79 O2 Sat by Pulse 98 98 Oximetry Medical Decision Making - Medical Decision Making This is a 28-year-old female with history of migraine headache presented with a headache. Thorough history and examination were performed. Patient is well- appearing.Vitals stable. No alarming features. Patient given migraine cocktail with relief of headache. Patient and I discussed abortive therapy in detail. [place] and Flexeril does not seem to work for her. She will follow-up with her neurologist in 1-[address] Cross is my attending. Disposition Clinical Impression: Migraine with aura Disposition: HOME SELF-CARE Condition: Good Instructions (If sedation given, give patient instructions): Migraine Headache (ED) Additional Instructions: Please follow up with your neurologist who can provide you with better abortive therapy for your headaches. Follow-up with primary care provider in one to 2 days. Return to the emergency department if you experience new, concerning, or worsening symptoms. Is patient prescribed a controlled substance at d/c from ED?: No Referrals: Edgardo Inman MD [Primary Care Provider] - 1-2 days Time of Disposition: 20:06
[2021-11-30 21:13] VITALS: BP 116/79; PULSE 74; RESP 18; TEMP 98.2
== END 2021-11-30 21:11 | disposition home or self-care (01) ==
LOC: EC 17:01
DX: G43.109 Migraine with aura, not intractable, without status migrainosus (principal); J45.909 Unspecified asthma, uncomplicated; E11.9 Type 2 diabetes mellitus without complications; M79.7 Fibromyalgia; K21.9 Gastro-esophageal reflux disease without esophagitis; E03.9 Hypothyroidism, unspecified; Z79.899 Other long term (current) drug therapy; Z79.890 Hormone replacement therapy
CPT/HCPCS: 99283; 96374; 96375; 96361; J1200; J2765; J1885

== ENCOUNTER 2021-12-04 18:48 | Emergency (ER) | payer OTHER ==
[2021-12-04 18:52] VITALS: RESP 16; TEMP 97.8
[2021-12-04] MEDS ORDERED: SODIUM CHLORIDE 0.9% 2,000 ML IV STA (19:28)
[2021-12-04] MEDS ORDERED: ONDANSETRON 4 MG/2 ML VIAL IVP STA (19:28)
[2021-12-04] MEDS ORDERED: MORPHINE SULFATE 4 MG/ML SYRINGE IV STA (19:28)
[2021-12-04 20:17] LABS: Basophils % (A) 0 %; Eosinophils # (A) 0.1 k/uL (0-0.7); Eosinophils % (A) 1 %; HCT 39.1 % (34.0-46.0); HGB 11.9 gm/dL (11.4-16.0); Hypochromasia Moderate; Lymphocytes # (A) 2.3 k/uL (1.0-4.8); Lymphocytes % (A) 22 %; MCH 26.3 pg (25.0-35.0); MCHC 30.3 g/dL (31.0-37.0); MCV 86.8 fL (80.0-100.0); Mean Platelet Volume 7.6; Monocytes # (A) 0.5 k/uL (0-1.0); Monocytes % (A) 4 %; Neutrophils # (A) 7.7 k/uL (1.3-7.7); Neutrophils % (A) 71 %; Platelet Count 367 k/uL (150-450); RBC 4.51 m/uL (3.80-5.40); RDW 14.3 % (11.5-15.5); WBC 10.8 k/uL (3.8-10.6)
[2021-12-04 20:26] LABS: ALT 19 U/L (4-34); AST 21 U/L (14-36); African American GFR (CKD) >90 (>60 ml/min/1.73 sqM); Alkaline Phosphatase 56 U/L (38-126); Anion Gap 9 mmol/L; Blood Urea Nitrogen 19 mg/dL (7-17); Calcium 9.3 mg/dL (8.4-10.2); Carbon Dioxide 22 mmol/L (22-30); Chloride 108 mmol/L (98-107); Glucose 126 mg/dL (74-99); Lipase 205 U/L (23-300); Non-African American GFR(CKD) 88 (>60 ml/min/1.73 sqM); Potassium 4.1 mmol/L (3.5-5.1); Sodium 139 mmol/L (137-145); Total Bilirubin 0.2 mg/dL (0.2-1.3); Total Protein 6.9 g/dL (6.3-8.2)
--- NOTE | 2021-12-04 21:15 | CT ---
EXAMINATION TYPE: CT abdomen pelvis w con CT DLP: 2327.9 mGycm, Automated exposure control for dose reduction was used. DATE OF EXAM: 12/04/2021 8:54 PM COMPARISON: CT abdomen pelvis most recent from 11/12/2021. CLINICAL INDICATION:Female, 36 years old with history of RLQ pain; TECHNIQUE: Axial CT of the abdomen and pelvis . Sagittal and coronal reformats were created on a [employer] workstation. Contrast used:100 mL of Isovue 300 with IV Contrast, Oral contrast used: without Oral Contrast FINDINGS: LOWER CHEST: Unremarkable ABDOMEN LIVER: Unremarkable GALLBLADDER AND BILE DUCTS: The gallbladder is surgically absent. PANCREAS: Unremarkable. SPLEEN: Unremarkable. ADRENAL GLANDS: Unremarkable. KIDNEYS AND URETERS: No evidence of hydronephrosis or renal calculus. PELVIS BLADDER: Unremarkable REPRODUCTIVE: Unremarkable. ABDOMEN & PELVIS STOMACH AND BOWEL: Small hiatal hernia, duodenum is unremarkable. Postsurgical changes to the colon P ostsurgical change the stomach. No evidence of bowel obstruction. Appendix is normal PERITONEUM: No evidence of pneumoperitoneum or free fluid. VASCULATURE: No evidence of aortic aneurysm. MUSCULOSKELETAL: No acute osseous abnormalities. Straightening of the spine with disc bulging at L2-L 3. LYMPH NODES: No gross evidence for lymphadenopathy. SOFT TISSUE/ABDOMINAL WALL: Unchanged soft tissue density within the anterior abdominal fat and post surgical changes to the anterior wall dating back to at least 08/30/2019. IMPRESSION: 1. No evidence for acute intra-abdominal process. No obstructive uropathy, urothelial calculus or ev idence for appendicitis. 2. Postsurgical changes of the stomach, colon and anterior abdominal wall which are not significantly changed from prior.
[2021-12-04] MEDS ORDERED: MORPHINE SULFATE 4 MG/ML SYRINGE IVP STA (21:34)
--- NOTE | 2021-12-04 22:12 | US ---
EXAMINATION TYPE: US transvaginal DATE OF EXAM: 12/04/2021 COMPARISON: NONE CLINICAL HISTORY: RLQ pain, hx of cysts. pain TECHNIQUE: Transvaginal (TV EXAM MEASUREMENTS: Uterus: 5.4 x 2.3 x 3.9 cm Endometrial Stripe: .4 cm Right Ovary: 2.2 x 1.2 x 1.4 cm Left Ovary: 2.7 x 1.6 x 1.7 cm 1. Uterus: Anteverted heterogenous 2. Endometrium: limited visualization 3. Right Ovary: wnl 4. Left Ovary: wnl 5. Bilateral Adnexa: wnl 6. Posterior cul-de-sac: wnl The color flow Doppler images with spectral analysis show normal arterial and venous inflow and outfl ow. No evidence of ovarian torsion. IMPRESSION: Normal transvaginal pelvic sonogram. Normal uterus. No adnexal mass. No evidence of ovari an torsion.
--- NOTE | 2021-12-04 22:39 | ED ---
General Adult HPI - General Chief complaint: Abdominal Pain Stated complaint: lower abd pain Time Seen by Provider: 12/04/21 18:55 Source: patient Mode of arrival: ambulatory Limitations: no limitations - History of Present Illness Initial comments: Patient is a 36 year old female with a past medical history of asthma, diabetes mellitus, fibromyalgia, hypothyroidism, GERD, polycystic ovarian syndrome who presents to the emergency department with a chief complaint of lower right abdominal pain. Patient is evaluated in the emergency department several times this month for various concerns. States the pain started last night and is a severe constant throbbing. Denies radiation of pain. Reports nausea without vomiting. Reports normal bowel movements, last one was today. Denies fever, chills, shortness of breath, chest pain, burning with urination, and blood in the urine. Denies history of kidney stone and infection. Has history of appendectomy, cholecystectomy, bariatric surgery, bowel resection, and hernia repair. - Related Data Home Medications Medication Instructions Recorded Confirmed Levothyroxine Sodium [Synthroid] 50 mcg PO DAILY 05/05/14 11/28/21 Topiramate [Trokendi Xr] 100 mg PO DAILY 07/19/17 11/28/21 Cetirizine HCl [Zyrtec] 10 mg PO DAILY 08/30/19 11/28/21 Pregabalin [Lyrica] 150 mg PO BID 08/30/19 11/28/21 ARIPiprazole [Abilify] 2 mg PO HS 09/14/20 11/28/21 Ondansetron Odt [Zofran ODT] 8 mg PO Q8HR PRN 09/14/20 11/28/21 Venlafaxine HCl [Effexor XR] 225 mg PO HS 09/14/20 11/28/21 Erenumab-Aooe [Aimovig 140 mg SQ Q30D 09/22/20 11/28/21 Autoinjector] Rizatriptan Odt [Maxalt [employer]] 10 mg PO DAILY PRN 11/12/20 11/28/21 Albuterol Sulfate [Ventolin HFA] 2 puff INHALATION RT-Q6H PRN 07/09/21 11/28/21 norethindrone-e.estradioL-iron 1 tab PO HS 07/09/21 11/28/21 [Junel Fe 1.5 mg-30 Mcg Tablet] HYDROcodone/APAP 7.5-325MG [[place] 1 tab PO BID PRN 08/23/21 11/28/21 7.5-325] Ergocalciferol [Vitamin D2 (1250 50,000 unit PO GARCIA 09/12/21 11/28/21 Mcg = 55685 Iu)] Atogepant [Qulipta] 60 mg PO HS 11/28/21 11/28/21 Previous Rx's Medication Instructions Recorded Aspirin 81 mg PO DAILY 30 Days #30 tab 09/16/21 Famotidine [Pepcid] 20 mg PO BID 14 Days #28 tablet 10/25/21 Cyclobenzaprine [Flexeril] 10 mg PO BID 7 Days #14 tab 10/29/21 Cefdinir 300 mg PO Q12HR #14 cap 11/12/21 Ondansetron Odt [Zofran Odt] 4 mg PO Q8HR PRN #10 tab 11/15/21 Allergies Allergy/AdvReac Type Severity Reaction Status Date / Time codeine Allergy Hallucinati Verified 12/04/21 18:52 ons tramadol Allergy Hallucinati Verified 12/04/21 18:52 ons valacyclovir HCl AdvReac BLURRED Verified 12/04/21 18:52 [From Valtrex] VISION Review of Systems ROS Statement: Those systems with pertinent positive or pertinent negative responses have been documented in the HPI. ROS Other: All systems not noted in ROS Statement are negative. Past Medical History Past Medical History: Asthma, Diabetes Mellitus, Fibromyalgia, GERD/Reflux, Sleep Apnea/CPAP/BIPAP, Thyroid Disorder Additional Past Medical History / Comment(s): Migraines with aura, DDD, NIDDM type II, diverticulitis with perforation/colostomy since reversed, IBS, chronic seroma, CARLITOS/no device, polycystic ovaries, hypothyroid, season allergies History of Any Multi-Drug Resistant Organisms: None Reported Past Surgical History: Bariatric Surgery, Bowel Resection, Breast Surgery, Cholecystectomy, Hernia Repair Additional Past Surgical History / Comment(s): 06/06/21 sleeve gastrectomy, rt Breast biopsy. bowel resection with colostomy/ later colostomy reversal, abdominal surgery to remove scar tissue, EGD, colonoscopy, back pain procedures Past Anesthesia/Blood Transfusion Reactions: No Reported Reaction Additional Past Anesthesia/Blood Transfusion Reaction / Comment(s): no hx blood transfusion, received monoclonal antibodies in Feb 2021 Past Psychological History: Anxiety, Bipolar, Depression Smoking Status: Never smoker Past Alcohol Use History: None Reported Past Drug Use History: None Reported - Past Family History Mother History Unknown: Yes Family Medical History: COPD Additional Family Medical History / Comment(s): Mother from COPD at the age of 55 yrs. Brother(s) Family Medical History: Diabetes Mellitus Father Family Medical History: Unable to Obtain General Exam Limitations: no limitations Course Vital Signs 12/04/21 12/04/21 18:50 23:00 Temperature 97.8 F Pulse Rate 80 60 Respiratory 16 16 Rate Blood Pressure 132/83 106/78 O2 Sat by Pulse 99 96 Oximetry Medical Decision Making - Medical Decision Making This is a 36-year-old female who presents with right lower quadrant pain and nausea. Thorough history and examination were performed. Patient appears to be in pain. Vital stable. Laboratory studies significant for mild leukocytosis at 10.8. With concern for asthma colitis I did obtain CT of the abdomen and pelvis with contrast which was negative for acute process. I then obtained pelvic ultrasound to assess the right ovary which showed a normal ovary without cysts or other abnormalities. Pain and nausea controlled. At thiis time there are no diagnostic studies to explain patient's symptoms. Patient to follow-up with primary care provider. Dr. Wren is my attending. - Lab Data Result diagrams: 12/04/21 19:28 12/04/21 19:28 Lab Results 12/04/21 12/04/21 12/04/21 Range/Units 19:28 19:28 19:30 WBC 10.8 H (3.8-10.6) k/uL RBC 4.51 (3.80-5.40) m/uL Hgb 11.9 (11.4-16.0) gm/dL Hct 39.1 (34.0-46.0) % MCV 86.8 (80.0-100.0) fL MCH 26.3 (25.0-35.0) pg MCHC 30.3 L (31.0-37.0) g/dL RDW 14.3 (11.5-15.5) % Plt Count 367 (150-450) k/uL MPV 7.6 Neutrophils % 71 % Lymphocytes % 22 % Monocytes % 4 % Eosinophils % 1 % Basophils % 0 % Neutrophils # 7.7 (1.3-7.7) k/uL Lymphocytes # 2.3 (1.0-4.8) k/uL Monocytes # 0.5 (0-1.0) k/uL Eosinophils # 0.1 (0-0.7) k/uL Basophils # 0.0 (0-0.2) k/uL Hypochromasia Moderate Sodium 139 (137-145) mmol/L Potassium 4.1 (3.5-5.1) mmol/L Chloride 108 H (98-107) mmol/L Carbon Dioxide 22 (22-30) mmol/L Anion Gap 9 mmol/L BUN 19 H (7-17) mg/dL Creatinine 0.85 (0.52-1.04) mg/dL Est GFR (CKD-EPI)AfAm >90 (>60 ml/min/1.73 sqM) Est GFR (CKD-EPI)NonAf 88 (>60 ml/min/1.73 sqM) Glucose 126 H (74-99) mg/dL Plasma Lactic Acid Yobani (0.7-2.0) mmol/L Calcium 9.3 (8.4-10.2) mg/dL Total Bilirubin 0.2 (0.2-1.3) mg/dL AST 21 (14-36) U/L ALT 19 (4-34) U/L Alkaline Phosphatase 56 (38-126) U/L Total Protein 6.9 (6.3-8.2) g/dL Albumin 4.0 (3.5-5.0) g/dL Lipase 205 (23-300) U/L Urine HCG, Qual Not Detected (Not Detectd) 12/04/21 Range/Units 19:30 WBC (3.8-10.6) k/uL RBC (3.80-5.40) m/uL Hgb (11.4-16.0) gm/dL Hct (34.0-46.0) % MCV (80.0-100.0) fL MCH (25.0-35.0) pg MCHC (31.0-37.0) g/dL RDW (11.5-15.5) % Plt Count (150-450) k/uL MPV Neutrophils % % Lymphocytes % % Monocytes % % Eosinophils % % Basophils % % Neutrophils # (1.3-7.7) k/uL Lymphocytes # (1.0-4.8) k/uL Monocytes # (0-1.0) k/uL Eosinophils # (0-0.7) k/uL Basophils # (0-0.2) k/uL Hypochromasia Sodium (137-145) mmol/L Potassium (3.5-5.1) mmol/L Chloride (98-107) mmol/L Carbon Dioxide (22-30) mmol/L Anion Gap mmol/L BUN (7-17) mg/dL Creatinine (0.52-1.04) mg/dL Est GFR (CKD-EPI)AfAm (>60 ml/min/1.73 sqM) Est GFR (CKD-EPI)NonAf (>60 ml/min/1.73 sqM) Glucose (74-99) mg/dL Plasma Lactic Acid Yobani 0.7 (0.7-2.0) mmol/L Calcium (8.4-10.2) mg/dL Total Bilirubin (0.2-1.3) mg/dL AST (14-36) U/L ALT (4-34) U/L Alkaline Phosphatase (38-126) U/L Total Protein (6.3-8.2) g/dL Albumin (3.5-5.0) g/dL Lipase (23-300) U/L Urine HCG, Qual (Not Detectd) Disposition Clinical Impression: Abdominal pain, Nausea Disposition: HOME SELF-CARE Condition: Good Instructions (If sedation given, give patient instructions): Abdominal Pain (ED) Additional Instructions: Please follow up with your primary care provider. Return to the emergency department if you experience new, concerning, or worsening symptoms. Is patient prescribed a controlled substance at d/c from ED?: No Referrals: Edgardo Inman MD [Primary Care Provider] - 1-2 days Time of Disposition: 22:39
[2021-12-04 23:02] VITALS: BP 106/78; PULSE 60
== END 2021-12-04 23:02 | disposition home or self-care (01) ==
LOC: EC 18:48
DX: R10.31 Right lower quadrant pain (principal); R11.0 Nausea; D72.829 Elevated white blood cell count, unspecified; J45.909 Unspecified asthma, uncomplicated; E11.9 Type 2 diabetes mellitus without complications; M79.7 Fibromyalgia; K21.9 Gastro-esophageal reflux disease without esophagitis; E03.9 Hypothyroidism, unspecified; Z90.49 Acquired absence of other specified parts of digestive tract; Z88.1 Allergy status to other antibiotic agents; Z88.5 Allergy status to narcotic agent; Z79.899 Other long term (current) drug therapy; Z79.890 Hormone replacement therapy; Z79.84 Long term (current) use of oral hypoglycemic drugs
CPT/HCPCS: 36415; 80053; 83605; 83690; 85025; 81025; 76830; 74177; 99284; 96374; 96361; 96376; 96375; J2270; J2405; Q9967

== ENCOUNTER 2021-12-07 16:25 | Emergency (ER) | payer OTHER ==
[2021-12-07 17:00] VITALS: BP 107/69; PULSE 70; RESP 16; TEMP 98.2
[2021-12-07] MEDS ORDERED: ONDANSETRON ODT 4 MG TAB PO STA (18:21)
[2021-12-07] MEDS ORDERED: KETOROLAC 15 MG/ML 1 ML VIAL IM STA (18:21)
--- NOTE | 2021-12-07 18:27 | ED ---
Abdominal Pain HPI - General Chief Complaint: Abdominal Pain Stated Complaint: abdominal pain Time Seen by Provider: 12/07/21 17:47 Source: patient Mode of arrival: ambulatory Limitations: no limitations - History of Present Illness Initial Comments: This 36-year-old female presents with a complaint of some abdominal pain. She states that it is in her right lower quadrant. There appears to be a degree of chronicity in this regard. This is her fifth emergency department visit this month for similar. She was just seen 3 days ago. She had a very thorough workup at that time including a pelvic ultrasound, laboratory, and computed tomography scan of the abdomen and pelvis with IV contrast. This did not show any acute abnormalities. Specifically, did not show any evidence of appendicitis, ovarian cyst, or ovarian torsion. She states that the pain has been fairly severe despite utilizing her Lyrica and Chauncey 7.5 mg pills. She does have chronic pain syndromes and follows up with a chronic pain clinic. She has had some nausea and occasional vomiting. She denies any diarrhea, fevers, chills, or constipation. No other complaints or modifying factors. - Related Data Home Medications Medication Instructions Recorded Confirmed Levothyroxine Sodium [Synthroid] 50 mcg PO DAILY 05/05/14 11/28/21 Topiramate [Trokendi Xr] 100 mg PO DAILY 07/19/17 11/28/21 Cetirizine HCl [Zyrtec] 10 mg PO DAILY 08/30/19 11/28/21 Pregabalin [Lyrica] 150 mg PO BID 08/30/19 11/28/21 ARIPiprazole [Abilify] 2 mg PO HS 09/14/20 11/28/21 Ondansetron Odt [Zofran ODT] 8 mg PO Q8HR PRN 09/14/20 11/28/21 Venlafaxine HCl [Effexor XR] 225 mg PO HS 09/14/20 11/28/21 Erenumab-Aooe [Aimovig 140 mg SQ Q30D 09/22/20 11/28/21 Autoinjector] Rizatriptan Odt [Maxalt [employer]ER] 10 mg PO DAILY PRN 11/12/20 11/28/21 Albuterol Sulfate [Ventolin HFA] 2 puff INHALATION RT-Q6H PRN 07/09/21 11/28/21 norethindrone-e.estradioL-iron 1 tab PO HS 07/09/21 11/28/21 [Junel Fe 1.5 mg-30 Mcg Tablet] HYDROcodone/APAP 7.5-325MG [[place] 1 tab PO BID PRN 08/23/21 11/28/21 7.5-325] Ergocalciferol [Vitamin D2 (1250 50,000 unit PO GARCIA 09/12/21 11/28/21 Mcg = 55948 Iu)] Atogepant [Qulipta] 60 mg PO HS 11/28/21 11/28/21 Previous Rx's Medication Instructions Recorded Aspirin 81 mg PO DAILY 30 Days #30 tab 09/16/21 Famotidine [Pepcid] 20 mg PO BID 14 Days #28 tablet 10/25/21 Cyclobenzaprine [Flexeril] 10 mg PO BID 7 Days #14 tab 10/29/21 Cefdinir 300 mg PO Q12HR #14 cap 11/12/21 Ondansetron Odt [Zofran Odt] 4 mg PO Q8HR PRN #10 tab 11/15/21 Dicyclomine [Bentyl] 20 mg PO QID PRN #20 tablet 12/07/21 Allergies Allergy/AdvReac Type Severity Reaction Status Date / Time codeine Allergy Hallucinati Verified 12/07/21 17:00 ons tramadol Allergy Hallucinati Verified 12/07/21 17:00 ons valacyclovir HCl AdvReac BLURRED Verified 12/07/21 17:00 [From Valtrex] VISION Review of Systems ROS Statement: Those systems with pertinent positive or pertinent negative responses have been documented in the HPI. ROS Other: All systems not noted in ROS Statement are negative. Past Medical History Past Medical History: Asthma, Diabetes Mellitus, Fibromyalgia, GERD/Reflux, Sleep Apnea/CPAP/BIPAP, Thyroid Disorder Additional Past Medical History / Comment(s): Migraines with aura, DDD, NIDDM type II, diverticulitis with perforation/colostomy since reversed, IBS, chronic seroma, CARLITOS/no device, polycystic ovaries, hypothyroid, season allergies History of Any Multi-Drug Resistant Organisms: None Reported Past Surgical History: Bariatric Surgery, Bowel Resection, Breast Surgery, Cholecystectomy, Hernia Repair Additional Past Surgical History / Comment(s): 06/06/21 sleeve gastrectomy, rt Breast biopsy. bowel resection with colostomy/ later colostomy reversal, abdominal surgery to remove scar tissue, EGD, colonoscopy, back pain procedures Past Anesthesia/Blood Transfusion Reactions: No Reported Reaction Additional Past Anesthesia/Blood Transfusion Reaction / Comment(s): no hx blood transfusion, received monoclonal antibodies in Feb 2021 Past Psychological History: Anxiety, Bipolar, Depression Smoking Status: Never smoker Past Alcohol Use History: None Reported Past Drug Use History: None Reported - Past Family History Mother History Unknown: Yes Family Medical History: COPD Additional Family Medical History / Comment(s): Mother from COPD at the age of 55 yrs. Brother(s) Family Medical History: Diabetes Mellitus Father Family Medical History: Unable to Obtain General Exam - General Exam Comments Initial Comments: GENERAL: The patient is well nourished and well hydrated. VITAL SIGNS: Heart rate, blood pressure, respiratory rate reviewed as recorded in nurse's notes. EYES: Pupils are round and reactive. Extraocular movements are intact. No conjunctival / lid redness or swelling. ENT: No external evidence of injury, swelling, or ecchymosis. Airway is patent. Throat is clear. NECK: Nontender. No swelling or evidence of injury. No subcutaneous emphysema. Trachea is midline. No thyroid mass. HEART: Regular rate and rhythm. Good peripheral pulses. LUNGS/CHEST: Breath sounds clear and equal bilaterally. No rales, rhonchi, or wheezes. No ecchymosis, subcutaneous emphysema, or tenderness. ABDOMEN: Abdomen soft with mild tenderness right lower abdomen. No palpable masses or organomegaly. No peritoneal signs. No abdominal wall swelling or ecchymosis. EXTREMITIES: No extremity tenderness. Normal muscle tone and function. No thoracolumbar tenderness. NEUROLOGIC: Sensation is grossly intact. Cranial nerve exam reveals face is symmetrical, tongue is midline, speech is clear. SKIN: No abrasions or ecchymosis is noted. No induration or masses noted. PSYCHIATRIC: Alert and oriented. Appears anxious at times. Limitations: no limitations Course Vital Signs 12/07/21 16:58 Temperature 98.2 F Pulse Rate 70 Respiratory 16 Rate Blood Pressure 107/69 O2 Sat by Pulse 98 Oximetry Medical Decision Making - Medical Decision Making The patient was seen and examined. Old records were reviewed from 3 days ago. This shows a very thorough workup at that time. It is not is felt as though patient needs any additional workup or imaging. She has been here 5 times this month for chronic pain issues. She is agreeable to receiving some Toradol IM and Zofran. She has Zofran to take at home if needed as well. It is also felt as though she may benefit from following up with her [employer] doctor. She should also follow-up with her pain management doctor and discuss a pain medication holiday as it appears that her Chauncey was not working for her at well anymore. She's been on them for many years. Return parameters are discussed. Close fol low-up recommended. Disposition Clinical Impression: Chronic pain disorder, Abdominal pain Disposition: HOME SELF-CARE Condition: Good Instructions (If sedation given, give patient instructions): Abdominal Pain (ED) Prescriptions: Dicyclomine [Bentyl] 20 mg PO QID PRN #20 tablet PRN Reason: Pain Is patient prescribed a controlled substance at d/c from ED?: No Referrals: Edgardo Inman MD [Primary Care Provider] - 1-2 days Time of Disposition: 18:27
== END 2021-12-07 19:01 | disposition home or self-care (01) ==
LOC: EC 16:25
DX: G89.4 Chronic pain syndrome (principal); R10.31 Right lower quadrant pain; R11.2 Nausea with vomiting, unspecified; J45.909 Unspecified asthma, uncomplicated; E11.9 Type 2 diabetes mellitus without complications; Z79.51 Long term (current) use of inhaled steroids; Z88.5 Allergy status to narcotic agent; Z88.6 Allergy status to analgesic agent; Z88.1 Allergy status to other antibiotic agents
CPT/HCPCS: 99283; 96372; J1885

== ENCOUNTER 2021-12-18 14:40 | Emergency (ER) | payer OTHER ==
[2021-12-18 14:52] VITALS: RESP 16
[2021-12-18] MEDS ORDERED: KETOROLAC 15 MG/ML 1 ML VIAL IVP STA (15:24)
[2021-12-18] MEDS ORDERED: METOCLOPRAMIDE 5 MG/ML 2 ML VIAL IVP STA (15:25)
[2021-12-18] MEDS ORDERED: SODIUM CHLORIDE 0.9% 1,000 ML IV ONE (15:25)
--- NOTE | 2021-12-18 15:28 | ED ---
General Adult HPI - General Chief complaint: Headache Stated complaint: migraine Time Seen by Provider: 12/18/21 15:10 Source: patient, RN notes reviewed, old records reviewed Mode of arrival: ambulatory Limitations: no limitations - History of Present Illness Initial comments: 36-year-old female presents for evaluation of occipital headache. Headache has been present for the past 24 hours. She did take her medication at home as prescribed. She follows with neurology regarding chronic headaches. She has some photophobia and nausea without vomiting. Headache was gradual in onset, typical of her normal headaches. - Related Data Home Medications Medication Instructions Recorded Confirmed Levothyroxine Sodium [Synthroid] 50 mcg PO DAILY 05/05/14 12/12/21 Cetirizine HCl [Zyrtec] 10 mg PO DAILY 08/30/19 12/12/21 Pregabalin [Lyrica] 150 mg PO BID 08/30/19 12/12/21 ARIPiprazole [Abilify] 2 mg PO HS 09/14/20 12/12/21 Ondansetron Odt [Zofran ODT] 8 mg PO Q8HR PRN 09/14/20 12/12/21 Venlafaxine HCl [Effexor XR] 225 mg PO HS 09/14/20 12/12/21 Erenumab-Aooe [Aimovig 140 mg SQ QMONTHLY 09/22/20 12/12/21 Autoinjector] norethindrone-e.estradioL-iron 1 tab PO HS 07/09/21 12/12/21 [Junel Fe 1.5 mg-30 Mcg Tablet] HYDROcodone/APAP 7.5-325MG [[place] 1 tab PO BID PRN 08/23/21 12/12/21 7.5-325] Atogepant [Qulipta] 60 mg PO HS 11/28/21 12/12/21 Bzugvbwdxydyvi-HP-Uolerbcfig 1 tab PO DAILY 12/12/21 12/12/21 [Folbic] Ferrous Sulfate [Feosol] 325 mg PO DAILY 12/12/21 12/12/21 Nystatin 100,000 Unit/gm Powd 1 applic TOPICAL BID PRN 12/12/21 12/12/21 [Mycostatin Powder] Nystatin/Triamcin 1 applic TOPICAL BID PRN 12/12/21 12/12/21 [Nystatin-Triamcinolone Cream] Allergies Allergy/AdvReac Type Severity Reaction Status Date / Time codeine AdvReac Hallucinati Verified 12/18/21 14:52 ons tramadol AdvReac Hallucinati Verified 12/18/21 14:52 ons valacyclovir HCl AdvReac BLURRED Verified 12/18/21 14:52 [From Valtrex] VISION Review of Systems ROS Statement: Those systems with pertinent positive or pertinent negative responses have been documented in the HPI. ROS Other: All systems not noted in ROS Statement are negative. Past Medical History Past Medical History: Asthma, Diabetes Mellitus, Fibromyalgia, GERD/Reflux, Sleep Apnea/CPAP/BIPAP, Thyroid Disorder Additional Past Medical History / Comment(s): Migraines with aura, DDD, NIDDM type II, diverticulitis with perforation/colostomy since reversed, IBS, chronic seroma, CARLITOS/no device, polycystic ovaries, hypothyroid, season allergies History of Any Multi-Drug Resistant Organisms: None Reported Past Surgical History: Bariatric Surgery, Bowel Resection, Breast Surgery, Cholecystectomy, Hernia Repair Additional Past Surgical History / Comment(s): 06/06/21 sleeve gastrectomy, rt Breast biopsy. bowel resection with colostomy/ later colostomy reversal, abdominal surgery to remove scar tissue, EGD, colonoscopy, back pain procedures Past Anesthesia/Blood Transfusion Reactions: No Reported Reaction Additional Past Anesthesia/Blood Transfusion Reaction / Comment(s): no hx blood transfusion, received monoclonal antibodies in Feb 2021 Past Psychological History: Anxiety, Bipolar, Depression Smoking Status: Never smoker Past Alcohol Use History: None Reported Past Drug Use History: None Reported - Past Family History Mother History Unknown: Yes Family Medical History: COPD Additional Family Medical History / Comment(s): Mother from COPD at the age of 55 yrs. Brother(s) Family Medical History: Diabetes Mellitus Father Family Medical History: Unable to Obtain General Exam Limitations: no limitations General appearance: alert, in no apparent distress Head exam: Present: atraumatic, normocephalic Eye exam: Present: normal appearance, PERRL ENT exam: Present: normal exam, mucous membranes moist Neck exam: Present: normal inspection. Absent: tenderness, meningismus Respiratory exam: Present: normal lung sounds bilaterally. Absent: respiratory distress, wheezes Cardiovascular Exam: Present: regular rate, normal rhythm GI/Abdominal exam: Present: soft. Absent: distended, tenderness, guarding Extremities exam: Present: normal inspection, normal capillary refill. Absent: pedal edema, calf tenderness Neurological exam: Present: alert, oriented X3, CN II-XII intact. Absent: motor sensory deficit Psychiatric exam: Present: normal affect, normal mood Skin exam: Present: warm, dry, intact. Absent: cyanosis, diaphoretic Course Vital Signs 12/18/21 14:50 Temperature 98.5 F Pulse Rate 72 Respiratory 16 Rate Blood Pressure 111/79 O2 Sat by Pulse 99 Oximetry Medical Decision Making - Medical Decision Making 36-year-old female with chronic headache presenting with typical headache symptoms. Patient well-appearing with stable vitals. Nonfocal neurologic exam. I did give Toradol, and Reglan as well as IV fluids on reevaluation she is feeling somewhat better. She has good outpatient follow-up. Return parameters discussed. Disposition Clinical Impression: Migraine headache Disposition: HOME SELF-CARE Condition: Good Instructions (If sedation given, give patient instructions): Acute Headache (ED) Is patient prescribed a controlled substance at d/c from ED?: No Referrals: Edgardo Inman MD [Primary Care Provider] - 1-2 days Thomas Azar MD [Medical Doctor] - 1-2 days Time of Disposition: 16:43
[2021-12-18 18:05] VITALS: BP 105/63; PULSE 74; TEMP 98.3
== END 2021-12-18 18:05 | disposition home or self-care (01) ==
LOC: EC 14:40
DX: G43.909 Migraine, unspecified, not intractable, without status migrainosus (principal); J45.909 Unspecified asthma, uncomplicated; E11.9 Type 2 diabetes mellitus without complications; F41.9 Anxiety disorder, unspecified; F31.9 Bipolar disorder, unspecified; Z88.5 Allergy status to narcotic agent; Z88.1 Allergy status to other antibiotic agents
CPT/HCPCS: 99283; 96374; 96375; 96361 ×2; J2765; J1885

== ENCOUNTER 2021-12-28 16:50 | Emergency (ER) | payer OTHER ==
[2021-12-28 17:10] VITALS: TEMP 98.7
[2021-12-28] MEDS ORDERED: SODIUM CHLORIDE 0.9% 1,000 ML IV STA (17:12)
[2021-12-28] MEDS ORDERED: KETOROLAC 15 MG/ML 1 ML VIAL IVP STA (17:12)
[2021-12-28] MEDS ORDERED: diphenhydrAMINE 50 MG/ML 1 ML VIAL IVP STA (17:12)
[2021-12-28] MEDS ORDERED: DIHYDROERGOTAMINE MESYLATE 1 MG/ML 1 ML AMP IVP STA (17:12)
[2021-12-28 18:11] LABS: Basophils % (A) 0 %; Eosinophils # (A) 0.2 k/uL (0-0.7); Eosinophils % (A) 1 %; HCT 42.8 % (34.0-46.0); HGB 13.4 gm/dL (11.4-16.0); Hypochromasia Slight; Lymphocytes # (A) 2.5 k/uL (1.0-4.8); Lymphocytes % (A) 22 %; MCH 27.1 pg (25.0-35.0); MCHC 31.3 g/dL (31.0-37.0); MCV 86.4 fL (80.0-100.0); Mean Platelet Volume 7.7; Monocytes # (A) 0.4 k/uL (0-1.0); Monocytes % (A) 4 %; Neutrophils # (A) 7.9 k/uL (1.3-7.7); Neutrophils % (A) 71 %; Platelet Count 371 k/uL (150-450); RBC 4.95 m/uL (3.80-5.40); RDW 14.8 % (11.5-15.5); WBC 11.2 k/uL (3.8-10.6)
[2021-12-28 18:21] LABS: ALT 22 U/L (4-34); AST 28 U/L (14-36); African American GFR (CKD) >90 (>60 ml/min/1.73 sqM); Albumin 4.2 g/dL (3.5-5.0); Alkaline Phosphatase 67 U/L (38-126); Anion Gap 13 mmol/L; Blood Urea Nitrogen 20 mg/dL (7-17); Calcium 9.6 mg/dL (8.4-10.2); Carbon Dioxide 22 mmol/L (22-30); Chloride 105 mmol/L (98-107); Glucose 135 mg/dL (74-99); Non-African American GFR(CKD) 84 (>60 ml/min/1.73 sqM); Potassium 4.5 mmol/L (3.5-5.1); Sodium 140 mmol/L (137-145); Total Bilirubin 0.4 mg/dL (0.2-1.3); Total Protein 7.2 g/dL (6.3-8.2)
--- NOTE | 2021-12-28 19:38 | CT ---
EXAMINATION TYPE: CT brain wo con DATE OF EXAM: 12/28/2021 COMPARISON: 10/03/2021 HISTORY: headaches CT DLP: 1082.6 mGycm Automated exposure control for dose reduction was used. Ventricles have normal size. There is no mass effect or midline shift. No sign of intracranial hemorr abilio. The calvarium is intact. Skull base is intact. IMPRESSION: Negative CT scan of the brain. No change
--- NOTE | 2021-12-28 19:41 | CT ---
EXAMINATION TYPE: CT angio head DATE OF EXAM: 12/28/2021 COMPARISON: 08/23/2021 HISTORY: headaches CT DLP: 1148.8 mGycm Automated exposure control for dose reduction was used. CONTRAST: Performed with IV Contrast, patient injected with 65 mL of Isovue 370. Images obtained from the skull base to the vertex of the brain with IV contrast. There are Three-D po stprocessed images. There is arterial flow in the anterior middle and posterior cerebral arteries bilaterally. There is a rterial flow in the vertebral basilar artery system. No mass effect. No evidence of intracranial aneu rysm or neovascularity. There is normal enhancement of the venous sinuses. Calvarium is intact. No ev idence of hemodynamic arterial stenosis. IMPRESSION: Negative CT angiogram of the brain. No adverse change compared to the old exam.
[2021-12-28] MEDS ORDERED: HYDROmorphone 1 MG/ML 1 ML SYRINGE IVP STA (20:39)
--- NOTE | 2021-12-28 21:57 | ED ---
Headache HPI - General Chief Complaint: Headache Stated Complaint: headache, speech trouble Time Seen by Provider: 12/28/21 17:12 Mode of arrival: ambulatory Limitations: no limitations - History of Present Illness Initial Comments: Patient complains of a headache. She has a history of migraine headaches. This is not the worse headache of her life. The pain came on gradually. She has no weakness. She has no paresthesias. She has no trouble walking. She has no change in vision or hearing. She denies any injuries. She denies any loss of consciousness. She denies any nausea or vomiting. - Related Data Home Medications Medication Instructions Recorded Confirmed Levothyroxine Sodium [Synthroid] 50 mcg PO DAILY 05/05/14 12/12/21 Cetirizine HCl [Zyrtec] 10 mg PO DAILY 08/30/19 12/12/21 Pregabalin [Lyrica] 150 mg PO BID 08/30/19 12/12/21 ARIPiprazole [Abilify] 2 mg PO HS 09/14/20 12/12/21 Ondansetron Odt [Zofran ODT] 8 mg PO Q8HR PRN 09/14/20 12/12/21 Venlafaxine HCl [Effexor XR] 225 mg PO HS 09/14/20 12/12/21 Erenumab-Aooe [Aimovig 140 mg SQ QMONTHLY 09/22/20 12/12/21 Autoinjector] norethindrone-e.estradioL-iron 1 tab PO HS 07/09/21 12/12/21 [Junel Fe 1.5 mg-30 Mcg Tablet] HYDROcodone/APAP 7.5-325MG [Nocatee 1 tab PO BID PRN 08/23/21 12/12/21 7.5-325] Atogepant [Qulipta] 60 mg PO HS 11/28/21 12/12/21 Brxdliqcaecsuy-KU-Usaumywkjw 1 tab PO DAILY 12/12/21 12/12/21 [Folbic] Ferrous Sulfate [Feosol] 325 mg PO DAILY 12/12/21 12/12/21 Nystatin 100,000 Unit/gm Powd 1 applic TOPICAL BID PRN 12/12/21 12/12/21 [Mycostatin Powder] Nystatin/Triamcin 1 applic TOPICAL BID PRN 12/12/21 12/12/21 [Nystatin-Triamcinolone Cream] Allergies Allergy/AdvReac Type Severity Reaction Status Date / Time codeine AdvReac Hallucinati Verified 12/28/21 17:10 ons tramadol AdvReac Hallucinati Verified 12/28/21 17:10 ons valacyclovir HCl AdvReac BLURRED Verified 12/28/21 17:10 [From Valtrex] VISION Review of Systems ROS Statement: Those systems with pertinent positive or pertinent negative responses have been documented in the HPI. ROS Other: All systems not noted in ROS Statement are negative. Past Medical History Past Medical History: Asthma, Diabetes Mellitus, Fibromyalgia, GERD/Reflux, Sleep Apnea/CPAP/BIPAP, Thyroid Disorder Additional Past Medical History / Comment(s): Migraines with aura, DDD, NIDDM type II, diverticulitis with perforation/colostomy since reversed, IBS, chronic seroma, CARLITOS/no device, polycystic ovaries, hypothyroid, season allergies History of Any Multi-Drug Resistant Organisms: None Reported Past Surgical History: Bariatric Surgery, Bowel Resection, Breast Surgery, Cholecystectomy, Hernia Repair Additional Past Surgical History / Comment(s): 06/06/21 sleeve gastrectomy, rt Breast biopsy. bowel resection with colostomy/ later colostomy reversal, abdominal surgery to remove scar tissue, EGD, colonoscopy, back pain procedures Past Anesthesia/Blood Transfusion Reactions: No Reported Reaction Additional Past Anesthesia/Blood Transfusion Reaction / Comment(s): no hx blood transfusion, received monoclonal antibodies in Feb 2021 Past Psychological History: Anxiety, Bipolar, Depression Smoking Status: Never smoker Past Alcohol Use History: None Reported Past Drug Use History: None Reported - Past Family History Mother History Unknown: Yes Family Medical History: COPD Additional Family Medical History / Comment(s): Mother from COPD at the age of 55 yrs. Brother(s) Family Medical History: Diabetes Mellitus Father Family Medical History: Unable to Obtain General Exam Limitations: no limitations General appearance: alert, in no apparent distress Head exam: Present: atraumatic, normocephalic, normal inspection Eye exam: Present: normal appearance, PERRL, EOMI. Absent: scleral icterus, conjunctival injection, periorbital swelling ENT exam: Present: normal exam, mucous membranes moist Neck exam: Present: normal inspection. Absent: tenderness, meningismus, lymphadenopathy Respiratory exam: Present: normal lung sounds bilaterally. Absent: respiratory distress, wheezes, rales, rhonchi, stridor Cardiovascular Exam: Present: regular rate, normal rhythm, normal heart sounds. Absent: systolic murmur, diastolic murmur, rubs, gallop, clicks GI/Abdominal exam: Present: soft, normal bowel sounds. Absent: distended, tenderness, guarding, rebound, rigid Extremities exam: Present: normal inspection, full ROM, normal capillary refill. Absent: tenderness, pedal edema, joint swelling, calf tenderness Back exam: Present: normal inspection Neurological exam: Present: alert, oriented X3, CN II-XII intact Psychiatric exam: Present: normal affect, normal mood Skin exam: Present: warm, dry, intact, normal color. Absent: rash Course Vital Signs 12/28/21 12/28/21 17:08 18:42 Temperature 98.7 F Pulse Rate 80 72 Respiratory 16 15 Rate Blood Pressure 148/89 122/86 O2 Sat by Pulse 99 100 Oximetry Medical Decision Making - Medical Decision Making Patient complains of a headache. She has no neurological deficits. Imaging of the brain is normal. Laboratory studies are normal. She is given pain medicine. She is feeling better. She is stable for discharge. - Lab Data Result diagrams: 12/28/21 18:00 12/28/21 18:00 Lab Results 12/28/21 12/28/21 Range/Units 18:00 18:00 WBC 11.2 H (3.8-10.6) k/uL RBC 4.95 (3.80-5.40) m/uL Hgb 13.4 (11.4-16.0) gm/dL Hct 42.8 (34.0-46.0) % MCV 86.4 (80.0-100.0) fL MCH 27.1 (25.0-35.0) pg MCHC 31.3 (31.0-37.0) g/dL RDW 14.8 (11.5-15.5) % Plt Count 371 (150-450) k/uL MPV 7.7 Neutrophils % 71 % Lymphocytes % 22 % Monocytes % 4 % Eosinophils % 1 % Basophils % 0 % Neutrophils # 7.9 H (1.3-7.7) k/uL Lymphocytes # 2.5 (1.0-4.8) k/uL Monocytes # 0.4 (0-1.0) k/uL Eosinophils # 0.2 (0-0.7) k/uL Basophils # 0.0 (0-0.2) k/uL Hypochromasia Slight Sodium 140 (137-145) mmol/L Potassium 4.5 (3.5-5.1) mmol/L Chloride 105 (98-107) mmol/L Carbon Dioxide 22 (22-30) mmol/L Anion Gap 13 mmol/L BUN 20 H (7-17) mg/dL Creatinine 0.88 (0.52-1.04) mg/dL Est GFR (CKD-EPI)AfAm >90 (>60 ml/min/1.73 sqM) Est GFR (CKD-EPI)NonAf 84 (>60 ml/min/1.73 sqM) Glucose 135 H (74-99) mg/dL Calcium 9.6 (8.4-10.2) mg/dL Total Bilirubin 0.4 (0.2-1.3) mg/dL AST 28 (14-36) U/L ALT 22 (4-34) U/L Alkaline Phosphatase 67 (38-126) U/L Total Protein 7.2 (6.3-8.2) g/dL Albumin 4.2 (3.5-5.0) g/dL Disposition Clinical Impression: Migraine Disposition: HOME SELF-CARE Condition: Good Instructions (If sedation given, give patient instructions): Acute Headache (ED) Is patient prescribed a controlled substance at d/c from ED?: No Referrals: Edgardo Inman MD [Primary Care Provider] - 1-2 days
[2021-12-28 23:15] VITALS: BP 111/76; PULSE 77; RESP 16
== END 2021-12-28 23:14 | disposition home or self-care (01) ==
LOC: EC 16:50
DX: G43.909 Migraine, unspecified, not intractable, without status migrainosus (principal); J45.909 Unspecified asthma, uncomplicated; E11.9 Type 2 diabetes mellitus without complications; K21.9 Gastro-esophageal reflux disease without esophagitis; E07.9 Disorder of thyroid, unspecified; F41.9 Anxiety disorder, unspecified; F31.9 Bipolar disorder, unspecified; Z88.5 Allergy status to narcotic agent; Z88.1 Allergy status to other antibiotic agents; Z79.51 Long term (current) use of inhaled steroids; Z79.84 Long term (current) use of oral hypoglycemic drugs; Z79.899 Other long term (current) drug therapy
CPT/HCPCS: 36415; 80053; 85025; 70496; 70450; 99284; 96374; 96375 ×3; 96361; J1110; J1200; J1170; J1885; Q9967

== ENCOUNTER 2022-01-05 16:50 | Observation (INO) | payer OTHER ==
--- NOTE | 2022-01-05 18:00 | XR ---
EXAMINATION TYPE: XR KUB 2 views DATE OF EXAM: 01/05/2022 5:35 PM CLINICAL HISTORY: Left lower quadrant pain, nausea, vomiting TECHNIQUE: 2 upright views COMPARISON: 12/12/2021 FINDINGS: Scattered gas is seen in non-distended small bowel loops. Gas and fecal material is seen in non-distended colon. Colonic stool volume is unremarkable. There is no visceromegaly, pneumoperitone um, or abnormal calcification appreciated. The lung bases are clear and the osseous structures are in tact. IMPRESSION: No acute radiographic process.
[2022-01-05 18:16] LABS: Basophils # (A) 0.1 k/uL (0-0.2); Basophils % (A) 1 %; Eosinophils # (A) 0.1 k/uL (0-0.7); Eosinophils % (A) 1 %; HCT 42.8 % (34.0-46.0); HGB 13.6 gm/dL (11.4-16.0); Hypochromasia Slight; Lymphocytes # (A) 2.4 k/uL (1.0-4.8); Lymphocytes % (A) 23 %; MCH 27.5 pg (25.0-35.0); MCHC 31.6 g/dL (31.0-37.0); MCV 87.1 fL (80.0-100.0); Mean Platelet Volume 7.6; Monocytes # (A) 0.4 k/uL (0-1.0); Monocytes % (A) 4 %; Neutrophils # (A) 7.3 k/uL (1.3-7.7); Neutrophils % (A) 70 %; Platelet Count 370 k/uL (150-450); RBC 4.92 m/uL (3.80-5.40); RDW 15.3 % (11.5-15.5); WBC 10.4 k/uL (3.8-10.6)
[2022-01-05 18:29] LABS: ALT 23 U/L (4-34); AST 22 U/L (14-36); African American GFR (CKD) >90 (>60 ml/min/1.73 sqM); Albumin 4.2 g/dL (3.5-5.0); Alkaline Phosphatase 73 U/L (38-126); Amylase 83 U/L (30-110); Anion Gap 12 mmol/L; Blood Urea Nitrogen 18 mg/dL (7-17); Calcium 9.9 mg/dL (8.4-10.2); Carbon Dioxide 24 mmol/L (22-30); Chloride 104 mmol/L (98-107); Glucose 99 mg/dL (74-99); Lipase 187 U/L (23-300); Non-African American GFR(CKD) >90 (>60 ml/min/1.73 sqM); Potassium 4.3 mmol/L (3.5-5.1); Sodium 140 mmol/L (137-145); Total Bilirubin 0.2 mg/dL (0.2-1.3); Total Protein 7.2 g/dL (6.3-8.2)
[2022-01-05] MEDS ORDERED: SODIUM CHLORIDE 0.9% 1,000 ML IV STA ×2 (21:02)
[2022-01-05] MEDS ORDERED: FAMOTIDINE 20 MG/2 ML VIAL IV STA (21:03)
[2022-01-05] MEDS ORDERED: HYDROmorphone 1 MG/ML 1 ML SYRINGE IVP STA (21:03)
[2022-01-05] MEDS ORDERED: ONDANSETRON 4 MG/2 ML VIAL IVP STA (21:03)
--- NOTE | 2022-01-05 22:17 | ED ---
Abdominal Pain HPI - General Chief Complaint: Abdominal Pain Stated Complaint: Abd pain Time Seen by Provider: 01/05/22 17:28 Source: patient, RN notes reviewed Mode of arrival: ambulatory Limitations: no limitations - History of Present Illness Initial Comments: 28-year-old female with a history of multiple medical issues including a history of ruptured diverticula with colostomy and reversal of the same who states she had he has a yesterday of sharp generally left-sided pain on and off increases with deep breathing or movements. She had nausea vomiting with it also. No diarrhea. She states it feels similar to when she had a ruptured diverticula in the past. No overt fevers chills or sweats reported at this time. On further questioning she has she states the pain is been going on for 2-3 days. MD Complaint: abdominal pain - Related Data Home Medications Medication Instructions Recorded Confirmed Levothyroxine Sodium [Synthroid] 50 mcg PO DAILY 05/05/14 12/12/21 Cetirizine HCl [Zyrtec] 10 mg PO DAILY 08/30/19 12/12/21 Pregabalin [Lyrica] 150 mg PO BID 08/30/19 12/12/21 ARIPiprazole [Abilify] 2 mg PO HS 09/14/20 12/12/21 Ondansetron Odt [Zofran ODT] 8 mg PO Q8HR PRN 09/14/20 12/12/21 Venlafaxine HCl [Effexor XR] 225 mg PO HS 09/14/20 12/12/21 Erenumab-Aooe [Aimovig 140 mg SQ QMONTHLY 09/22/20 12/12/21 Autoinjector] norethindrone-e.estradioL-iron 1 tab PO HS 07/09/21 12/12/21 [Junel Fe 1.5 mg-30 Mcg Tablet] HYDROcodone/APAP 7.5-325MG [Bunch 1 tab PO BID PRN 08/23/21 12/12/21 7.5-325] Atogepant [Qulipta] 60 mg PO HS 11/28/21 12/12/21 Qnwskmmuslsrvq-VE-Flotdlghni 1 tab PO DAILY 12/12/21 12/12/21 [Folbic] Ferrous Sulfate [Feosol] 325 mg PO DAILY 12/12/21 12/12/21 Nystatin 100,000 Unit/gm Powd 1 applic TOPICAL BID PRN 12/12/21 12/12/21 [Mycostatin Powder] Nystatin/Triamcin 1 applic TOPICAL BID PRN 12/12/21 12/12/21 [Nystatin-Triamcinolone Cream] Allergies Allergy/AdvReac Type Severity Reaction Status Date / Time codeine AdvReac Hallucinati Verified 01/05/22 17:25 ons tramadol AdvReac Hallucinati Verified 01/05/22 17:25 ons valacyclovir HCl AdvReac BLURRED Verified 01/05/22 17:25 [From Valtrex] VISION Review of Systems ROS Statement: Those systems with pertinent positive or pertinent negative responses have been documented in the HPI. ROS Other: All systems not noted in ROS Statement are negative. Past Medical History Past Medical History: Asthma, Diabetes Mellitus, Fibromyalgia, GERD/Reflux, Sleep Apnea/CPAP/BIPAP, Thyroid Disorder Additional Past Medical History / Comment(s): Migraines with aura, DDD, NIDDM type II, diverticulitis with perforation/colostomy since reversed, IBS, chronic seroma, CARLITOS/no device, polycystic ovaries, hypothyroid, season allergies History of Any Multi-Drug Resistant Organisms: None Reported Past Surgical History: Bariatric Surgery, Bowel Resection, Breast Surgery, Cholecystectomy, Hernia Repair Additional Past Surgical History / Comment(s): 06/06/21 sleeve gastrectomy, rt Breast biopsy. bowel resection with colostomy/ later colostomy reversal, abdominal surgery to remove scar tissue, EGD, colonoscopy, back pain procedures Past Anesthesia/Blood Transfusion Reactions: No Reported Reaction Additional Past Anesthesia/Blood Transfusion Reaction / Comment(s): no hx blood transfusion, received monoclonal antibodies in Feb 2021 Past Psychological History: Anxiety, Bipolar, Depression Smoking Status: Never smoker Past Alcohol Use History: None Reported Past Drug Use History: None Reported - Past Family History Mother History Unknown: Yes Family Medical History: COPD Additional Family Medical History / Comment(s): Mother from COPD at the age of 55 yrs. Brother(s) Family Medical History: Diabetes Mellitus Father Family Medical History: Unable to Obtain General Exam - General Exam Comments Initial Comments: Is a well-developed well-nourished awake alert oriented 4 female she is tearful and in some distress Limitations: no limitations General appearance: alert, anxious, in distress Head exam: Present: atraumatic, normocephalic, normal inspection Eye exam: Present: normal appearance, PERRL, EOMI. Absent: scleral icterus, conjunctival injection, periorbital swelling ENT exam: Present: mucous membranes dry Neck exam: Present: normal inspection, full ROM, other (No stridor JVD or bruits). Absent: tenderness, meningismus, lymphadenopathy Respiratory exam: Present: normal lung sounds bilaterally. Absent: respiratory distress, wheezes, rales, rhonchi, stridor Cardiovascular Exam: Present: regular rate, normal rhythm, normal heart sounds. Absent: systolic murmur, diastolic murmur, rubs, gallop, clicks GI/Abdominal exam: Present: soft, tenderness (Left lower quadrant tenderness palpation with some voluntary guarding), normal bowel sounds. Absent: distended, guarding, rebound, rigid, bruit, pulsatile mass Rectal exam: Present: deferred Extremities exam: Present: normal inspection, full ROM, normal capillary refill. Absent: tenderness, pedal edema, joint swelling, calf tenderness Back exam: Present: normal inspection Neurological exam: Present: alert, oriented X3, CN II-XII intact Psychiatric exam: Present: normal affect, normal mood Skin exam: Present: warm, dry, intact, normal color. Absent: rash Course Vital Signs 01/05/22 01/05/22 17:20 21:37 Temperature 98.6 F Pulse Rate 93 86 Respiratory 20 18 Rate Blood Pressure 125/85 119/68 O2 Sat by Pulse 100 98 Oximetry - Reevaluation(s) Reevaluation #1: 01/05/22 23:20 Patient pain down from she appears to still be very uncomfortable Medical Decision Making - Medical Decision Making Patient lab work is back to be reasonably within normal limits. The patient does have intractable pain she will be admitted with surgical consultation. Case discussed with Dr. Maldonado. I did discuss the findings again with the patient she does have a history of adhesions this may represent a recurrence. - Lab Data Result diagrams: 01/05/22 18:05 01/05/22 18:05 Lab Results 01/05/22 01/05/22 01/05/22 Range/Units 18:05 18:05 18:05 WBC 10.4 (3.8-10.6) k/uL RBC 4.92 (3.80-5.40) m/uL Hgb 13.6 (11.4-16.0) gm/dL Hct 42.8 (34.0-46.0) % MCV 87.1 (80.0-100.0) fL MCH 27.5 (25.0-35.0) pg MCHC 31.6 (31.0-37.0) g/dL RDW 15.3 (11.5-15.5) % Plt Count 370 (150-450) k/uL MPV 7.6 Neutrophils % 70 % Lymphocytes % 23 % Monocytes % 4 % Eosinophils % 1 % Basophils % 1 % Neutrophils # 7.3 (1.3-7.7) k/uL Lymphocytes # 2.4 (1.0-4.8) k/uL Monocytes # 0.4 (0-1.0) k/uL Eosinophils # 0.1 (0-0.7) k/uL Basophils # 0.1 (0-0.2) k/uL Hypochromasia Slight Sodium 140 (137-145) mmol/L Potassium 4.3 (3.5-5.1) mmol/L Chloride 104 (98-107) mmol/L Carbon Dioxide 24 (22-30) mmol/L Anion Gap 12 mmol/L BUN 18 H (7-17) mg/dL Creatinine 0.80 (0.52-1.04) mg/dL Est GFR (CKD-EPI)AfAm >90 (>60 ml/min/1.73 sqM) Est GFR (CKD-EPI)NonAf >90 (>60 ml/min/1.73 sqM) Glucose 99 (74-99) mg/dL Plasma Lactic Acid Yobani 0.8 (0.7-2.0) mmol/L Calcium 9.9 (8.4-10.2) mg/dL Total Bilirubin 0.2 (0.2-1.3) mg/dL AST 22 (14-36) U/L ALT 23 (4-34) U/L Alkaline Phosphatase 73 (38-126) U/L Total Protein 7.2 (6.3-8.2) g/dL Albumin 4.2 (3.5-5.0) g/dL Amylase 83 (30-110) U/L Lipase 187 (23-300) U/L Urine Color Urine Appearance (Clear) Urine pH (5.0-8.0) Ur Specific [place] (1.001-1.035) Urine Protein (Negative) Urine Glucose (UA) (Negative) Urine Ketones (Negative) Urine Blood (Negative) Urine Nitrite (Negative) Urine Bilirubin (Negative) Urine Urobilinogen (<2.0) mg/dL Ur Leukocyte Esterase (Negative) Urine RBC (0-5) /hpf Urine WBC (0-5) /hpf Ur Squamous Epith Cells (0-4) /hpf Urine Bacteria (None) /hpf Hyaline Casts (0-2) /lpf Urine Mucus (None) /hpf Urine HCG, Qual (Not Detectd) 01/05/22 01/05/22 Range/Units 21:11 21:11 WBC (3.8-10.6) k/uL RBC (3.80-5.40) m/uL Hgb (11.4-16.0) gm/dL Hct (34.0-46.0) % MCV (80.0-100.0) fL MCH (25.0-35.0) pg MCHC (31.0-37.0) g/dL RDW (11.5-15.5) % Plt Count (150-450) k/uL MPV Neutrophils % % Lymphocytes % % Monocytes % % Eosinophils % % Basophils % % Neutrophils # (1.3-7.7) k/uL Lymphocytes # (1.0-4.8) k/uL Monocytes # (0-1.0) k/uL Eosinophils # (0-0.7) k/uL Basophils # (0-0.2) k/uL Hypochromasia Sodium (137-145) mmol/L Potassium (3.5-5.1) mmol/L Chloride (98-107) mmol/L Carbon Dioxide (22-30) mmol/L Anion Gap mmol/L BUN (7-17) mg/dL Creatinine (0.52-1.04) mg/dL Est GFR (CKD-EPI)AfAm (>60 ml/min/1.73 sqM) Est GFR (CKD-EPI)NonAf (>60 ml/min/1.73 sqM) Glucose (74-99) mg/dL Plasma Lactic Acid Yobani (0.7-2.0) mmol/L Calcium (8.4-10.2) mg/dL Total Bilirubin (0.2-1.3) mg/dL AST (14-36) U/L ALT (4-34) U/L Alkaline Phosphatase (38-126) U/L Total Protein (6.3-8.2) g/dL Albumin (3.5-5.0) g/dL Amylase (30-110) U/L Lipase (23-300) U/L Urine Color Yellow Urine Appearance Cloudy H (Clear) Urine pH 6.0 (5.0-8.0) Ur Specific [place] 1.030 (1.001-1.035) Urine Protein Trace H (Negative) Urine Glucose (UA) Negative (Negative) Urine Ketones Negative (Negative) Urine Blood Negative (Negative) Urine Nitrite Negative (Negative) Urine Bilirubin Negative (Negative) Urine Urobilinogen <2.0 (<2.0) mg/dL Ur Leukocyte Esterase Moderate H (Negative) Urine RBC 1 (0-5) /hpf Urine WBC 12 H (0-5) /hpf Ur Squamous Epith Cells 7 H (0-4) /hpf Urine Bacteria Rare H (None) /hpf Hyaline Casts 1 (0-2) /lpf Urine Mucus Moderate H (None) /hpf Urine HCG, Qual Not Detected (Not Detectd) - Radiology Data Radiology results: report reviewed (Imaging reviewed as well as reports no definitive acute processes seen. Current CT similar to previous.), image reviewed Disposition Clinical Impression: Intractable abdominal pain Disposition: ADMITTED IP TO THIS [facility] Condition: Fair Referrals: Edgardo Inman MD [Primary Care Provider] - 1-2 days Decision Date: 01/05/22 Decision Time: 23:00
[2022-01-05 22:22] LABS: Appearance,Urine Cloudy (Clear); Bacteria,Urine Rare /hpf; Bilirubin,Urine Negative (Negative); Blood,Urine Negative (Negative); Color,Urine Yellow; Glucose,Urine (UA) Negative (Negative); Hyaline Casts,Urine 1 /lpf (0-2); Ketones,Urine Negative (Negative); Leukocyte Esterase,Urine Moderate (Negative); Mucus,Urine Moderate /hpf; Nitrite,Urine Negative (Negative); Protein,Urine Trace (Negative); RBC,Urine 1 /hpf (0-5); Squamous Epithelial Cell,Urine 7 /hpf (0-4); Urobilinogen,Urine <2.0 mg/dL (<2.0); WBC,Urine 12 /hpf (0-5)
--- NOTE | 2022-01-05 23:02 | CT ---
EXAMINATION TYPE: CT abdomen pelvis w con DATE OF EXAM: 01/05/2022 COMPARISON: 12/04/2021 HISTORY: LLQ pain, nasuea and vomiting CT DLP: 1953.2 mGycm Automated exposure control for dose reduction was used. CONTRAST: Performed with IV Contrast, patient injected with 100 mL of Isovue 300. The lung bases are clear. No pleural effusion. Heart size is normal. No pericardial effusion. Liver s pleen stomach pancreas appear intact. There are clips from cholecystectomy. There is previous gastric bariatric surgery. There is no adrenal mass. Kidneys show satisfactory contrast opacification. There is no hydronephrosi s. Delayed images show normal renal excretion. No retroperitoneal adenopathy. Appendix is posterior a nd appears normal. There is subcutaneous density across the anterior abdominal wall measuring up to 3 cm in thickness and could be some scarring and chronic hematoma. This appears unchanged compared to old exam. There is no mesenteric edema. No ascites or free air. No bowel obstruction. Bladder distends smoothly . No inguinal hernia. No free fluid in the pelvis. There is mild retained fecal material in the large bowel. I do not see evidence for bowel obstruction. The lumbar spine is intact. No compression fracture. The bony pelvis is intact. The hip joints are in tact. IMPRESSION: Normal appendix. Postsurgical changes on the anterior abdominal wall and likely related to scarring w ithout change compared to old exam. Gastric bariatric surgery. Mild constipation. No bowel obstructio n. There is overall not a significant change compared to old exam.
[2022-01-05] MEDS ORDERED: NALOXONE 0.4 MG/ML 1 ML VIAL IV PRN (23:31)
[2022-01-05] MEDS: HYDROmorphone 1 MG/ML 1 ML SYRINGE IVP PRN (23:43)
[2022-01-06] MEDS: ONDANSETRON 4 MG/2 ML VIAL IVP PRN ×3 (00:23→15:53)
[2022-01-06] MEDS: HYDROmorphone 1 MG/ML 1 ML SYRINGE IVP PRN ×6 (05:17→23:07)
[2022-01-06 06:04] LABS: Basophils % (A) 1 %; Eosinophils # (A) 0.1 k/uL (0-0.7); Eosinophils % (A) 1 %; HCT 41.3 % (34.0-46.0); HGB 12.7 gm/dL (11.4-16.0); Hypochromasia Slight; Lymphocytes # (A) 2.3 k/uL (1.0-4.8); Lymphocytes % (A) 28 %; MCH 26.7 pg (25.0-35.0); MCHC 30.7 g/dL (31.0-37.0); MCV 86.9 fL (80.0-100.0); Mean Platelet Volume 7.6; Monocytes # (A) 0.3 k/uL (0-1.0); Monocytes % (A) 4 %; Neutrophils # (A) 5.5 k/uL (1.3-7.7); Neutrophils % (A) 66 %; Platelet Count 319 k/uL (150-450); RBC 4.75 m/uL (3.80-5.40); RDW 15.1 % (11.5-15.5); WBC 8.4 k/uL (3.8-10.6)
--- NOTE | 2022-01-06 06:33 | P.HPIM ---
History of Present Illness H&P Date: 01/05/22 Chief Complaint: Abdominal pain 36-year-old female with hypothyroid, fibromyalgia, history of ruptured diverticuli Patient comes in with left lower quadrant abdominal pain of 2 days has been increasing in severity today associated with nausea and vomiting denies any diarrhea or GI bleeding. Pain is sharp colicky in the left lower quadrant waxes and wanes not related to food worse with activity and deep breath. Patient denies any fevers or chills. She felt scared because the pain was similar to an episode of ruptured diverticulitis where she required lost any at that time. Patient denies any vaginal discharge denies any urinary or bowel habit changes denies any chest pain or trouble breathing. Patient is in day 14 of her cycle In the ED CT scan of the abdomen showed no acute pathology showed chronic changes related to prior surgeries cholecystectomy and bariatric surgery. Blood work overall was unremarkable Case discussed with surgery recommended admission for evaluation in the morning Review of Systems Pertinent positives as noted in HPI. All other systems were reviewed and are negative Past Medical History Past Medical History: Asthma, Diabetes Mellitus, Fibromyalgia, GERD/Reflux, Sleep Apnea/CPAP/BIPAP, Thyroid Disorder Additional Past Medical History / Comment(s): Migraines with aura, DDD, NIDDM type II, diverticulitis with perforation/colostomy since reversed, IBS, chronic seroma, CARLITOS/no device, polycystic ovaries, hypothyroid, season allergies History of Any Multi-Drug Resistant Organisms: None Reported Past Surgical History: Bariatric Surgery, Bowel Resection, Breast Surgery, Cholecystectomy, Hernia Repair Additional Past Surgical History / Comment(s): 06/06/21 sleeve gastrectomy, rt Breast biopsy. bowel resection with colostomy/ later colostomy reversal, a bdominal surgery to remove scar tissue, EGD, colonoscopy, back pain procedures Past Anesthesia/Blood Transfusion Reactions: No Reported Reaction Additional Past Anesthesia/Blood Transfusion Reaction / Comment(s): no hx blood transfusion, received monoclonal antibodies in Feb 2021 Past Psychological History: Anxiety, Bipolar, Depression Smoking Status: Never smoker Past Alcohol Use History: None Reported Past Drug Use History: None Reported - Past Family History Mother History Unknown: Yes Family Medical History: COPD Additional Family Medical History / Comment(s): Mother from COPD at the age of 55 yrs. Brother(s) Family Medical History: Diabetes Mellitus Father Family Medical History: Unable to Obtain Medications and Allergies Home Medications Medication Instructions Recorded Confirmed Type Levothyroxine Sodium [Synthroid] 50 mcg PO DAILY 05/05/14 12/12/21 History Cetirizine HCl [Zyrtec] 10 mg PO DAILY 08/30/19 12/12/21 History Pregabalin [Lyrica] 150 mg PO BID 08/30/19 12/12/21 History ARIPiprazole [Abilify] 2 mg PO HS 09/14/20 12/12/21 History Ondansetron Odt [Zofran ODT] 8 mg PO Q8HR PRN 09/14/20 12/12/21 History Venlafaxine HCl [Effexor XR] 225 mg PO HS 09/14/20 12/12/21 History Erenumab-Aooe [Aimovig 140 mg SQ QMONTHLY 09/22/20 12/12/21 History Autoinjector] norethindrone-e.estradioL-iron 1 tab PO HS 07/09/21 12/12/21 History [Junel Fe 1.5 mg-30 Mcg Tablet] HYDROcodone/APAP 7.5-325MG [[place] 1 tab PO BID PRN 08/23/21 12/12/21 History 7.5-325] Atogepant [Qulipta] 60 mg PO HS 11/28/21 12/12/21 History Fbmtexsoazmxzt-PN-Wvmpqmdrtd 1 tab PO DAILY 12/12/21 12/12/21 History [Folbic] Ferrous Sulfate [Feosol] 325 mg PO DAILY 12/12/21 12/12/21 History Nystatin 100,000 Unit/gm Powd 1 applic TOPICAL BID PRN 12/12/21 12/12/21 History [Mycostatin Powder] Nystatin/Triamcin 1 applic TOPICAL BID PRN 12/12/21 12/12/21 History [Nystatin-Triamcinolone Cream] Allergies Allergy/AdvReac Type Severity Reaction Status Date / Time codeine AdvReac Hallucinati Verified 01/05/22 17:25 ons tramadol AdvReac Hallucinati Verified 01/05/22 17:25 ons valacyclovir HCl AdvReac BLURRED Verified 01/05/22 17:25 [From Valtrex] VISION Physical Exam Vitals: Vital Signs Temp Pulse Resp BP Pulse Ox 01/06/22 05:38 60 16 106/68 100 01/06/22 00:50 69 16 114/69 96 01/05/22 21:37 86 18 119/68 98 01/05/22 17:20 98.6 F 93 20 125/85 100 Intake and Output 01/05/22 01/05/22 01/06/22 14:59 22:59 06:59 Other: Weight 111.13 kg Constitutional: No acute distress, conversant, pleasant Eyes: Anicteric sclerae, moist conjunctiva, Pupils equal round reactive to light ENMT: NC/AT Oropharynx clear, no erythema, or exudates Neck: Supple, FROM, no masses, or JVD No carotid bruits No thyromegaly Lungs: Clear to auscultation Clear to percussion Normal respiratory effort, no accessory muscle use Cardiovascular: Heart regular in rate and rhythm, No murmurs, gallops, or rubs No peripheral edema Abdominal: Soft tender to deep plapation of the LLQ, no guarding, rebound or rigidity Abdomen moving with respiration Normoactive bowel sounds No hepatomegaly, No splenomegaly No palpable mass No abdominal wall hernia noted Skin: Normal temperature, tone, texture, turgor No induration No subcutaneous nodules No rash, lesions No ulcers Extremities: No digital cyanosis No clubbing Pedal pulses intact and symmetrical Radial pulses intact and symmetrical No calf tenderness Psychiatric: Alert and oriented to person, place and time Appropriate affect fair judgement Neuro Muscles Strength 5/5 in all 4 extremities Sensation to light touch grossly present throughout Cranial nerves II-XII grossly intact No focal sensory deficits Lymphatics: no palpable cervical or supraclavicular , or inguinal lymph nodes Results CBC & Chem 7: 01/06/22 05:34 01/05/22 18:05 Labs: Abnormal Lab Results - Last 24 Hours (Table) 01/05/22 01/05/22 01/06/22 Range/Units 18:05 21:11 05:34 MCHC 30.7 L (31.0-37.0) g/dL BUN 18 H (7-17) mg/dL Urine Appearance Cloudy H (Clear) Urine Protein Trace H (Negative) Ur Leukocyte Esterase Moderate H (Negative) Urine WBC 12 H (0-5) /hpf Ur Squamous Epith Cells 7 H (0-4) /hpf Urine Bacteria Rare H (None) /hpf Urine Mucus Moderate H (None) /hpf Microbiology - Last 24 Hours (Table) 01/05/22 21:11 Urine Culture - Preliminary Urine,Clean Catch Assessment and Plan Assessment: Nausea vomiting with left lower cardiac abdominal pain CT of the abdomen no acute pathology Suspected due to possibly ruptured ovarian cyst Pain control Nothing by mouth Await surgery evaluation IV fluid hydration with saline Patient control with opiates Chronic conditions Anxiety and depression Hypothyroid resume levothyroxine Verify home medications DVT prophylaxis mechanical Full code
[2022-01-06] MEDS: LEVOTHYROXINE 50 MCG TAB PO SCH (08:43)
[2022-01-06] MEDS: SODIUM CHLORIDE 0.9% 1,000 ML IV SCH ×4 (08:47→23:07)
--- NOTE | 2022-01-06 10:03 | P.GSCN ---
History of Present Illness Consult date: 01/06/22 History of present illness: CHIEF COMPLAINT: Abdominal HISTORY OF PRESENT ILLNESS: This is a 36-year-old female who presented to the hospital with complaints of left lower abdominal pain. She reports over the last 3 days that the pain had become very sharp and severe. The pain was so severe that it caused her to have sweats and vomiting. She reports feeling nauseous. She reports having regular bowel movements. She also describes the pain as a pulling and ripping sensation. She feels that this is similar to previous episode 2 years ago where she had adhesions causing her pain. Patient does have multiple abdominal surgeries including sleeve gastrectomy, ch olecystectomy, ruptured diverticula with bowel resection, colostomy and colostomy reversal and repair of incisional hernia with mesh. Patient denies any fevers. She had a computed tomography scan abdomen and pelvis with IV contrast showing no significant abdominal changes. Did reveal mild constip ation. Patient does have a history of ruptured ovarian cyst. She reports that the pain does not feel the same as her previous ruptured ovarian cyst. Surgical service consulted in regards to patient's abdominal pain. PAST MEDICAL HISTORY: Asthma, Diabetes Mellitus, Fibromyalgia, GERD/Reflux, Sleep Apnea/CPAP/BIPAP, Thyroid Disorder, anxiety, bipolar, depression, ovarian cyst PAST SURGICAL HISTORY: See list. MEDICATIONS: See list. ALLERGIES: See list. SOCIAL HISTORY: No illicit drug use. REVIEW OF SYSTEMS: CONSTITUTIONAL: Denies fever or chills. HEENT: Denies blurred vision, vision changes, or eye pain. Denies hemoptysis CARDIOVASCULAR: Denies chest pain or pressure. RESPIRATORY: No shortness of breath. GASTROINTESTINAL: See HPI for pertinent findings HEMATOLOGIC: Denies bleeding disorders. GENITOURINARY: Denies any blood in urine or increased urinary frequency. SKIN: Denies pruitis. Denies rash. PHYSICAL EXAM: VITAL SIGNS: Reviewed GENERAL: Well-developed in no acute distress. HEENT: No sclera icterus. Extraocular movements grossly intact. Moist buccal mucosa. Head is atraumatic, normocephalic. No nasal drainage. ABDOMEN: Soft. Nondistended. Tenderness to palpation of the left lower abdomen. Bandage mid abdomen where patient burned abdomen with heating pack. NEUROLOGIC: Alert and oriented. Cranial nerves II through XII grossly intact. LABORATORY DATA: WBC 8.4 Hgb 12.7 platelets 319 Sodium 140 potassium 4.3 creatinine 0.80 Lactic acid 0.8 LFTs normal Lipase 17 IMAGING: Computed tomography scan abdomen and pelvis normal appendix. Postsurgical changes on the anterior abdominal wall and likely related to scarring without change compared to old exam. Gastric bariatric surgery. Mild constipation. No bowel obstruction. There is overall not a significant change compared to old exam. ASSESSMENT: 1. Intractable abdominal pain possibly secondary to adhesions 2. Prior history of adhesions requiring lysis of adhesions 3. History of multiple abdominal surgeries PLAN: -Start clear liquid diet -Continue supportive care -Continue pain medications as needed -Continue antiemetics as needed -Further recommendations forthcoming per surgeon Physician Employment Supervisor note has been reviewed by physician. Signing provider agrees with the documented findings, assessment, and plan of care. I have personally seen and examined the patient, reviewed the ELECTROCARDIOGRAM TECHNICIAN /PAs history, exam and MDM and agree with the assessment and plan as written. Based on total visit time, I have performed more than 50% of the visit. As above: Patient with history of intermittent abdominal pains. Says her pain currently is sharp knifelike in the left midabdomen. She believes is related to adhesions like she is past. He has had some vomiting and nausea but says is related to the degree of abdominal discomfort. Patient with history of previous sleeve gastrectomy. CAT scan was reviewed. No definite abnormalities noted at this time. Continue liquid diet for now. Will follow. Past Medical History Past Medical History: Asthma, Diabetes Mellitus, Fibromyalgia, GERD/Reflux, Sleep Apnea/CPAP/BIPAP, Thyroid Disorder Additional Past Medical History / Comment(s): Migraines with aura, DDD, NIDDM t ype II, diverticulitis with perforation/colostomy since reversed, IBS, chronic seroma, CARLITOS/no device, polycystic ovaries, hypothyroid, season allergies History of Any Multi-Drug Resistant Organisms: None Reported Past Surgical History: Bariatric Surgery, Bowel Resection, Breast Surgery, Cholecystectomy, Hernia Repair Additional Past Surgical History / Comment(s): 06/06/21 sleeve gastrectomy, rt Breast biopsy. bowel resection with colostomy/ later colostomy reversal, abdominal surgery to remove scar tissue, EGD, colonoscopy, back pain procedures Past Anesthesia/Blood Transfusion Reactions: No Reported Reaction Additional Past Anesthesia/Blood Transfusion Reaction / Comm: no hx blood transfusion, received monoclonal antibodies in Feb 2021 Past Psychological History: Anxiety, Bipolar, Depression Smoking Status: Never smoker Past Alcohol Use History: None Reported Past Drug Use History: None Reported - Past Family History Mother History Unknown: Yes Family Medical History: COPD Additional Family Medical History / Comment(s): Mother from COPD at the age of 55 yrs. Brother(s) Family Medical History: Diabetes Mellitus Father Family Medical History: Unable to Obtain Medications and Allergies Home Medications Medication Instructions Recorded Confirmed Type Levothyroxine Sodium [Synthroid] 50 mcg PO DAILY 05/05/14 01/06/22 History Cetirizine HCl [Zyrtec] 10 mg PO DAILY 08/30/19 01/06/22 History Pregabalin [Lyrica] 150 mg PO BID 08/30/19 01/06/22 History ARIPiprazole [Abilify] 2 mg PO HS 09/14/20 01/06/22 History Ondansetron Odt [Zofran ODT] 8 mg PO Q8HR PRN 09/14/20 01/06/22 History Venlafaxine HCl [Effexor XR] 225 mg PO HS 09/14/20 01/06/22 History Erenumab-Aooe [Aimovig 140 mg SQ QMONTHLY 09/22/20 01/06/22 History Autoinjector] norethindrone-e.estradioL-iron 1 tab PO HS 07/09/21 01/06/22 History [Junel Fe 1.5 mg-30 Mcg Tablet] HYDROcodone/APAP 7.5-325MG [[place] 1 tab PO BID PRN 08/23/21 01/06/22 History 7.5-325] Atogepant [Qulipta] 60 mg PO HS 11/28/21 01/06/22 History Kkbuposuxpvjan-NN-Lrzkqdefzf 1 tab PO DAILY 12/12/21 01/06/22 History [Folbic] Ferrous Sulfate [Feosol] 325 mg PO DAILY 12/12/21 01/06/22 History Nystatin 100,000 Unit/gm Powd 1 applic TOPICAL BID PRN 12/12/21 01/06/22 History [Mycostatin Powder] Nystatin/Triamcin 1 applic TOPICAL BID PRN 12/12/21 01/06/22 History [Nystatin-Triamcinolone Cream] Bacitracin Zinc Oint 1 applic TOPICAL BID 01/06/22 01/06/22 History Cyclobenzaprine [Flexeril] 10 mg PO DAILY PRN 01/06/22 01/06/22 History Allergies Allergy/AdvReac Type Severity Reaction Status Date / Time codeine AdvReac Hallucinati Verified 01/06/22 07:50 ons tramadol AdvReac Hallucinati Verified 01/06/22 07:50 ons valacyclovir HCl AdvReac BLURRED Verified 01/06/22 07:50 [From Valtrex] VISION Surgical - Exam Vital Signs Temp Pulse Resp BP Pulse Ox 98.6 F 93 20 125/85 100 01/05/22 17:20 01/05/22 17:20 01/05/22 17:20 01/05/22 17:20 01/05/22 17:20 Results - Labs 01/06/22 05:34 01/05/22 18:05 Abnormal Lab Results - Last 24 Hours (Table) 01/05/22 01/05/22 01/06/22 Range/Units 18:05 21:11 05:34 MCHC 30.7 L (31.0-37.0) g/dL BUN 18 H (7-17) mg/dL Urine Appearance Cloudy H (Clear) Urine Protein Trace H (Negative) Ur Leukocyte Esterase Moderate H (Negative) Urine WBC 12 H (0-5) /hpf Ur Squamous Epith Cells 7 H (0-4) /hpf Urine Bacteria Rare H (None) /hpf Urine Mucus Moderate H (None) /hpf Microbiology - Last 24 Hours (Table) 01/05/22 21:11 Urine Culture - Preliminary Urine,Clean Catch Diabetes panel 01/05/22 Range/Units 18:05 Sodium 140 (137-145) mmol/L Potassium 4.3 (3.5-5.1) mmol/L Chloride 104 (98-107) mmol/L Carbon Dioxide 24 (22-30) mmol/L BUN 18 H (7-17) mg/dL Creatinine 0.80 (0.52-1.04) mg/dL Glucose 99 (74-99) mg/dL Calcium 9.9 (8.4-10.2) mg/dL AST 22 (14-36) U/L ALT 23 (4-34) U/L Alkaline Phosphatase 73 (38-126) U/L Total Protein 7.2 (6.3-8.2) g/dL Albumin 4.2 (3.5-5.0) g/dL Calcium panel 01/05/22 Range/Units 18:05 Calcium 9.9 (8.4-10.2) mg/dL Albumin 4.2 (3.5-5.0) g/dL Pituitary panel 01/05/22 Range/Units 18:05 Sodium 140 (137-145) mmol/L Potassium 4.3 (3.5-5.1) mmol/L Chloride 104 (98-107) mmol/L Carbon Dioxide 24 (22-30) mmol/L BUN 18 H (7-17) mg/dL Creatinine 0.80 (0.52-1.04) mg/dL Glucose 99 (74-99) mg/dL Calcium 9.9 (8.4-10.2) mg/dL Adrenal panel 01/05/22 Range/Units 18:05 Sodium 140 (137-145) mmol/L Potassium 4.3 (3.5-5.1) mmol/L Chloride 104 (98-107) mmol/L Carbon Dioxide 24 (22-30) mmol/L BUN 18 H (7-17) mg/dL Creatinine 0.80 (0.52-1.04) mg/dL Glucose 99 (74-99) mg/dL Calcium 9.9 (8.4-10.2) mg/dL Total Bilirubin 0.2 (0.2-1.3) mg/dL AST 22 (14-36) U/L ALT 23 (4-34) U/L Alkaline Phosphatase 73 (38-126) U/L Total Protein 7.2 (6.3-8.2) g/dL Albumin 4.2 (3.5-5.0) g/dL
[2022-01-06] MEDS ORDERED: HYDROcodone/APAP 7.5-325MG 1 EACH TAB PO PRN (16:37)
--- NOTE | 2022-01-06 16:39 | P.PN ---
Subjective Progress Note Date: 01/06/22 Principal diagnosis: abdominal pain Patient was seen and examined. No acute events overnight. Patient reports left lower quadrant abdominal pain. Pain is 7/10 in severity. Pain is associated with nausea but no vomiting. Slightly improved from admission. Objective - Vital Signs Vital signs: Vital Signs Temp 97.4 F L 01/06/22 11:46 Pulse 62 01/06/22 11:46 Resp 16 01/06/22 11:46 BP 104/65 01/06/22 11:46 Pulse Ox 96 01/06/22 11:46 FiO2 Intake & Output 01/05/22 01/06/22 01/06/22 18:59 06:59 18:59 Weight 111.13 kg 111.13 kg - Exam General: [non toxic], [no distress], [appears at stated age] Derm: [warm], [dry] Head: [atraumatic], [normocephalic], [symmetric] Eyes: [EOMI], [no lid lag], [anicteric sclera] Mouth: [no lip lesion], [mucus membranes moist] Cardiovascular: [S1S2 reg], [no murmur] Lungs: [CTA bilateral], [no rhonchi, no rales] , [no accessory muscle use] Abdominal: [soft], [tenderness to palpation in the left lower quadrant without rebound], [no guarding], [no appreciable organomegaly] Ext: [no gross muscle atrophy], [no edema], [no contractures] Neuro: [no focal neuro deficits] Psych: [Alert], [oriented], [appropriate affect] - Labs CBC & Chem 7: 01/06/22 05:34 01/05/22 18:05 Labs: Abnormal Lab Results - Last 24 Hours (Table) 01/05/22 01/05/22 01/06/22 Range/Units 18:05 21:11 05:34 MCHC 30.7 L (31.0-37.0) g/dL BUN 18 H (7-17) mg/dL Urine Appearance Cloudy H (Clear) Urine Protein Trace H (Negative) Ur Leukocyte Esterase Moderate H (Negative) Urine WBC 12 H (0-5) /hpf Ur Squamous Epith Cells 7 H (0-4) /hpf Urine Bacteria Rare H (None) /hpf Urine Mucus Moderate H (None) /hpf Microbiology - Last 24 Hours (Table) 01/05/22 21:11 Urine Culture - Preliminary Urine,Clean Catch Assessment and Plan Assessment: Intractable abdominal pain likely related to adhesions Nausea and vomiting Elevated BUN Anxiety and depression Hypothyroidism Pain management with [place] and Dilaudid PRN. Zofran as needed for nausea and vomiting. Surgery consulted, appreciate recommendations. Continue IV hydration. Advance diet as tolerated. Restart Abilify and Effexor. Restart Synthroid. Patient is pending clinical improvement. Anticipate DC in 1-2 days depending on clinical course.
[2022-01-06] MEDS: PREGABALIN 75 MG CAP PO SCH (20:53)
[2022-01-06] MEDS: VENLAFAXINE HCL ER 75 MG CAP PO SCH (20:53)
[2022-01-06] MEDS: ARIPiprazole 2 MG TAB PO SCH (20:53)
[2022-01-07] MEDS: HYDROmorphone 1 MG/ML 1 ML SYRINGE IVP PRN ×4 (04:27→20:42)
[2022-01-07] MEDS: ONDANSETRON 4 MG/2 ML VIAL IVP PRN ×3 (04:28→21:04)
[2022-01-07] MEDS: LEVOTHYROXINE 50 MCG TAB PO SCH (04:28)
[2022-01-07] MEDS: SODIUM CHLORIDE 0.9% 1,000 ML IV SCH ×2 (04:28→16:30)
[2022-01-07] MEDS: PREGABALIN 75 MG CAP PO SCH ×2 (09:19→20:41)
--- NOTE | 2022-01-07 11:25 | P.PN ---
Subjective Progress Note Date: 01/07/22 Principal diagnosis: Abdominal pain Patient sitting upright in bed eating regular food. She says her pain is improved although was bad when she was walking to the bathroom last night. No vomiting small morning. Only mild nausea. No fevers. Objective - Vital Signs Vital signs: Vital Signs Temp 97.8 F 01/07/22 04:30 Pulse 70 01/07/22 04:30 Resp 18 01/07/22 04:30 BP 100/65 01/07/22 04:30 Pulse Ox 100 01/07/22 04:30 FiO2 Intake & Output 01/06/22 01/07/22 01/07/22 18:59 06:59 18:59 Intake Total 1360 Balance 1360 Weight 111.13 kg Intake: Intake, IV Titration 1000 Amount Sodium Chloride 0.9% 1, 1000 000 ml @ 130 mls/hr IV . Q7H42M [facility] Rx#:[id number] Oral 360 Other: Voiding Method Toilet # Voids 2 3 - Exam Abdomen: Soft, nondistended, mild left-sided tenderness - Labs CBC & Chem 7: 01/06/22 05:34 01/05/22 18:05 Labs: Microbiology - Last 24 Hours (Table) 01/05/22 18:05 Blood Culture - Preliminary Blood No Growth after 24 hours Assessment and Plan (1) Intractable abdominal pain Narrative/Plan: Patient says her pain is somewhat improved. She is tolerating regular food. Stable for discharge from my point of view if she tolerates her diet. Follow-up with Dr. Meadows as outpatient. Current Visit: Yes Status: Acute Code(s): R10.9 - UNSPECIFIED ABDOMINAL PAIN SNOMED Code(s): 07802492
--- NOTE | 2022-01-07 14:06 | P.PN ---
Subjective Progress Note Date: 01/07/22 Principal diagnosis: abdominal pain Patient was seen and examined. No acute events overnight. Patient reports left lower quadrant abdominal pain, 7/10 in severity. States that Dilaudid works for a brief period of time. Patient reported vomiting overnight. She was downgraded to full liquid diet this afternoon and states that she vomited her entire meal in the toilet. Nursing have not witnessed any vomitus. Objective - Vital Signs Vital signs: Vital Signs Temp 98.0 F 01/07/22 13:05 Pulse 68 01/07/22 13:05 Resp 16 01/07/22 13:05 BP 120/84 01/07/22 13:05 Pulse Ox 97 01/07/22 13:05 FiO2 Intake & Output 01/06/22 01/07/22 01/07/22 18:59 06:59 18:59 Intake Total 1360 Balance 1360 Weight 111.13 kg Intake: Intake, IV Titration 1000 Amount Sodium Chloride 0.9% 1, 1000 000 ml @ 130 mls/hr IV . Q7H42M [facility] Rx#:[id number] Oral 360 Other: Voiding Method Toilet Toilet # Voids 2 3 - Exam General: [non toxic], [no distress], [appears at stated age] Derm: [warm], [dry] Head: [atraumatic], [normocephalic], [symmetric] Eyes: [EOMI], [no lid lag], [anicteric sclera] Mouth: [no lip lesion], [mucus membranes moist] Cardiovascular: [S1S2 reg], [no murmur] Lungs: [CTA bilateral], [no rhonchi, no rales] , [no accessory muscle use] Abdominal: [soft], [tenderness to palpation in the left lower quadrant without rebound], [no guarding], [no appreciable organomegaly] Ext: [no gross muscle atrophy], [no edema], [no contractures] Neuro: [no focal neuro deficits] Psych: [Alert], [oriented], [appropriate affect] - Labs CBC & Chem 7: 01/06/22 05:34 01/05/22 18:05 Labs: Microbiology - Last 24 Hours (Table) 01/05/22 18:05 Blood Culture - Preliminary Blood No Growth after 24 hours Assessment and Plan Assessment: Intractable abdominal pain likely related to adhesions Nausea and vomiting Elevated BUN Anxiety and depression Hypothyroidism Pain management with [place] and Dilaudid PRN. Zofran as needed for nausea and vomiting. Surgery consulted, appreciate recommendations. Continue IV hydration. We will place the patient NPO. Restart Abilify and Effexor. Restart Synthroid. Patient is pending clinical improvement. Anticipate DC in 1-2 days depending on clinical course.
[2022-01-07] MEDS: ARIPiprazole 2 MG TAB PO SCH (20:41)
[2022-01-07] MEDS: VENLAFAXINE HCL ER 75 MG CAP PO SCH (20:41)
[2022-01-08] MEDS: SODIUM CHLORIDE 0.9% 1,000 ML IV SCH (03:01)
[2022-01-08] MEDS: ONDANSETRON 4 MG/2 ML VIAL IVP PRN ×2 (04:57→13:16)
[2022-01-08] MEDS: HYDROmorphone 1 MG/ML 1 ML SYRINGE IVP PRN (04:58)
[2022-01-08] MEDS: LEVOTHYROXINE 50 MCG TAB PO SCH (04:58)
[2022-01-08] MEDS: PREGABALIN 75 MG CAP PO SCH (09:34)
--- NOTE | 2022-01-08 11:45 | P.PN ---
Subjective Progress Note Date: 01/08/22 Principal diagnosis: Abdominal pain Patient apparently states she had a reaction to the high sugar foods that she was provided yesterday. She said she developed some discomfort and nausea as a result of that. She feels well today. Tolerating diet currently. Objective - Vital Signs Vital signs: Vital Signs Temp 98.2 F 01/08/22 05:00 Pulse 67 01/08/22 08:40 Resp 18 01/08/22 08:40 BP 110/71 01/08/22 05:00 Pulse Ox 96 01/08/22 05:00 FiO2 Intake & Output 01/07/22 01/08/22 01/08/22 18:59 06:59 18:59 Intake Total 840 Balance 840 Intake: Intake, IV Titration 600 Amount Sodium Chloride 0.9% 1, 600 000 ml @ 50 mls/hr IV . Q20H [facility] Rx#:[id number] Oral 240 Other: Voiding Method Toilet Toilet Toilet # Voids 4 3 2 - Exam Abdomen: Soft, nondistended, mild left-sided tenderness - Labs CBC & Chem 7: 01/06/22 05:34 01/05/22 18:05 Labs: Microbiology - Last 24 Hours (Table) 01/05/22 18:05 Blood Culture - Preliminary Blood No Growth after 48 hours 01/05/22 21:11 Urine Culture - Final Urine,Clean Catch Assessment and Plan (1) Intractable abdominal pain Narrative/Plan: Patient doing better today. Continue diet as tolerated. Plan discharge with follow-up with Dr. Meadows in the office tomorrow. Current Visit: Yes Status: Acute Code(s): R10.9 - UNSPECIFIED ABDOMINAL PAIN SNOMED Code(s): 44049608
--- NOTE | 2022-01-08 12:05 | P.DS ---
Providers Date of admission: 01/05/22 23:31 01/08/22 Attending physician: Shauna Park MD Consults: 01/05/22 23:31 Consult Physician Routine Consulting Provider: Brayan Meadows Consult Reason/Comments: Intractable abdominal pain Do you want consulting provider notified?: Yes, Notify in am Primary care physician: Edgardo Inman - Discharge Diagnosis(es) (1) Intractable abdominal pain Current Visit: Yes Status: Acute Hospital Course: This is a 36-year-old female who presented to the hospital with complaints of left lower abdominal pain. She reports over the last 3 days that the pain had become very sharp and severe. The pain was so severe that it caused her to have sweats and vomiting. She reports feeling nauseous. She reports having regular bowel movements. She also describes the pain as a pulling and ripping sensation. She feels that this is similar to previous episode 2 years ago where she had adhesions causing her pain. Patient does have multiple abdominal surgeries including sleeve gastrectomy, cholecystectomy, ruptured diverticula with bowel resection, colostomy and colostomy reversal and repair of incisional hernia with mesh. computed tomography scan abdomen and pelvis with IV contrast showing no significant abdominal changes. Did reveal mild constipation. Surgical team was consulted during this hospital stay and recommendation was conservative care no surgical intervention was recommended. She was cleared for discharge home and to follow up outpatient with her PCP as well as general surgeon On day of discharge patient was advanced on her oral diet she was not having any issues tolerating oral diet. She was clear for discharge home Plan - Discharge Summary Discharge Rx Participant: No New Discharge Prescriptions: Continue Levothyroxine Sodium [Synthroid] 50 mcg PO DAILY Cetirizine HCl [Zyrtec] 10 mg PO DAILY Pregabalin [Lyrica] 150 mg PO BID ARIPiprazole [Abilify] 2 mg PO HS Venlafaxine HCl [Effexor XR] 225 mg PO HS Erenumab-Aooe [Aimovig Autoinjector] 140 mg SQ QMONTHLY HYDROcodone/APAP 7.5-325MG [[place] 7.5-325] 1 tab PO BID PRN PRN Reason: Pain Nystatin/Triamcin [Nystatin-Triamcinolone Cream] 1 applic TOPICAL BID PRN PRN Reason: Rash Ferrous Sulfate [Iron (65 MG Elemental)] 325 mg PO DAILY Cyclobenzaprine [Flexeril] 10 mg PO DAILY PRN PRN Reason: Migraine Headache Bacitracin Zinc Oint 1 applic TOPICAL BID Ondansetron Odt [Zofran ODT] 8 mg PO Q8HR PRN PRN Reason: Nausea/migraines norethindrone-e.estradioL-iron [October[place] Fe 1.5 mg-30 Mcg Tablet] 1 tab PO HS Atogepant [Qulipta] 60 mg PO HS Nystatin 100,000 Unit/gm Powd [Mycostatin Powder] 1 applic TOPICAL BID PRN PRN Reason: Rash Uhuamvwawcibwu-WI-Hvughwtnkx [Folbic] 1 tab PO DAILY Discharge Medication List Levothyroxine Sodium [Synthroid] 50 mcg PO DAILY 05/05/14 [History] Cetirizine HCl [Zyrtec] 10 mg PO DAILY 08/30/19 [History] Pregabalin [Lyrica] 150 mg PO BID 08/30/19 [History] ARIPiprazole [Abilify] 2 mg PO HS 09/14/20 [History] Ondansetron Odt [Zofran ODT] 8 mg PO Q8HR PRN 09/14/20 [History] Venlafaxine HCl [Effexor XR] 225 mg PO HS 09/14/20 [History] Erenumab-Aooe [Aimovig Autoinjector] 140 mg SQ QMONTHLY 09/22/20 [History] norethindrone-e.estradioL-iron [October[place] Fe 1.5 mg-30 Mcg Tablet] 1 tab PO HS 07/09/21 [History] HYDROcodone/APAP 7.5-325MG [[place] 7.5-325] 1 tab PO BID PRN 08/23/21 [History] Atogepant [Qulipta] 60 mg PO HS 11/28/21 [History] Whjpjaqinzeyxx-CN-Iihqtyxean [Folbic] 1 tab PO DAILY 12/12/21 [History] Ferrous Sulfate [Iron (65 MG Elemental)] 325 mg PO DAILY 12/12/21 [History] Nystatin 100,000 Unit/gm Powd [Mycostatin Powder] 1 applic TOPICAL BID PRN 12/12/21 [History] Nystatin/Triamcin [Nystatin-Triamcinolone Cream] 1 applic TOPICAL BID PRN 12/12/21 [History] Bacitracin Zinc Oint 1 applic TOPICAL BID 01/06/22 [History] Cyclobenzaprine [Flexeril] 10 mg PO DAILY PRN 01/06/22 [History] Follow up Appointment(s)/Referral(s): Edgardo Inman MD [Primary Care Provider] - 1-2 days Discharge Disposition: HOME SELF-CARE
[2022-01-08 13:05] VITALS: BP 110/72; PULSE 78; RESP 16; TEMP 98
[2022-01-08] MEDS ORDERED: SUMAtriptan succinate 50 MG TAB PO STA (13:23)
== END 2022-01-08 18:55 | disposition home or self-care (01) ==
LOC: EC 16:50 → 6NMEDSUR 23:31 → 5NMEDONC 01-06 09:28
PROVIDERS: ADMIT Internal Medicine; ATTEND Internal Medicine
DX: R10.32 Left lower quadrant pain (principal); R11.2 Nausea with vomiting, unspecified; R94.4 Abnormal results of kidney function studies; K59.09 Other constipation; J45.909 Unspecified asthma, uncomplicated; K21.9 Gastro-esophageal reflux disease without esophagitis; E11.9 Type 2 diabetes mellitus without complications; M79.7 Fibromyalgia; G47.33 Obstructive sleep apnea (adult) (pediatric); E03.9 Hypothyroidism, unspecified; K58.9 Irritable bowel syndrome, unspecified; F41.9 Anxiety disorder, unspecified; F31.9 Bipolar disorder, unspecified; F32.A Depression, unspecified; Z98.84 Bariatric surgery status; Z79.890 Hormone replacement therapy; Z79.899 Other long term (current) drug therapy; Z82.5 Family history of asthma and other chronic lower respiratory diseases; Z83.3 Family history of diabetes mellitus; Z32.02 Encounter for pregnancy test, result negative; Z90.49 Acquired absence of other specified parts of digestive tract; Z88.6 Allergy status to analgesic agent
CPT/HCPCS: 96376 ×5; 96361 ×3; 96360; 96374; 96375; 99285; 36415; 80053; 82150; 83605; 83690; 85025 ×2; 81001; 81025; 87040; 87086; 74018; 74177; G0378 ×3; J2405 ×4; J1170 ×4; Q9967

== ENCOUNTER → 2022-01-09 | Outpatient (CLI) | payer OTHER ==
[2022-01-09 13:37] VITALS: BP 124/82; PULSE 81; TEMP 98.2; BMI 38.8
--- NOTE | 2022-01-23 15:20 | P.HPBAR ---
Bariatric H&P - History & Physicial H&P Date: 01/09/22 History & Physicial: Visit/CC: six month follow up Patient initial contact: Initial weight: 312 kg Initial weight in pounds: 687.84 Height: 5 ft 7 in Initial BMI: 107.7 Last weight: Current weight: 112.491 kg Current weight in pounds: 248.00 Current BMI: 38.8 [place] body weight (based on NIH guidelines): 61.235 kg Excess body weight loss: 79.5% The patient is a 36 year-old F who presents for Bariatric Assessment. Patient presents today for [place] fall. She's had she had some weight gain. Her weight is 248 pounds. She's had some mild GERD. Past Medical History Past Medical History: Asthma, Diabetes Mellitus, Fibromyalgia, GERD/Reflux, Sleep Apnea/CPAP/BIPAP, Thyroid Disorder Additional Past Medical History / Comment(s): Migraines with aura, DDD, NIDDM type II, diverticulitis with perforation/colostomy since reversed, IBS, chronic seroma, CARLITOS/no device, polycystic ovaries, hypothyroid, season allergies History of Any Multi-Drug Resistant Organisms: None Reported Past Surgical History: Bariatric Surgery, Bowel Resection, Breast Surgery, Cholecystectomy, Hernia Repair Additional Past Surgical History / Comment(s): 06/06/21 sleeve gastrectomy, rt Breast biopsy. bowel resection with colostomy/ later colostomy reversal, abdominal surgery to remove scar tissue, EGD, colonoscopy, back pain procedures Past Anesthesia/Blood Transfusion Reactions: No Reported Reaction Additional Past Anesthesia/Blood Transfusion Reaction / Comm: no hx blood transfusion, received monoclonal antibodies in Feb 2021 Past Psychological History: Anxiety, Bipolar, Depression Additional Psychological History / Comment(s): Pt has eating disorder-binge eater, borderline personality disorder. Pt resides with her boyfriend and his mother. She is independent. Smoking Status: Never smoker Past Alcohol Use History: None Reported Past Drug Use History: None Reported - Past Family History Mother History Unknown: Yes Family Medical History: COPD Additional Family Medical History / Comment(s): Mother from COPD at the age of 55 yrs. Brother(s) Family Medical History: Diabetes Mellitus Father Family Medical History: Unable to Obtain Surgical - Exam Vital Signs Temp Pulse BP 98.2 F 81 124/82 01/09/22 13:33 01/09/22 13:33 01/09/22 13:33 - General well developed, well nourished, no distress - Eyes PERRL - ENT normal pinna - Neck no masses - Respiratory normal expansion - Cardiovascular Rhythm: regular - Abdomen Abdomen: soft, non tender Bariatric Assessment & Plan Plan: Patient's GERD is minimal and will be observed. She'll follow-up in 4 weeks. Bariatric Checklist Checklist: Plan: Checklist: EGD: 1. Hiatal hernia: 2. H. Pylori: HgbA1c: Vitamin D: Smoking: Never smoker Primary care physician referral: Dr. Alaniz Psychiatry clearance: Cardiology clearance: Sleep study: Diet journal: VTE risk score: VTE risk level: Rehab needs at discharge:
== END ==
LOC: BARWHC3 12:39
PROVIDERS: ATTEND Surgery
DX: Z09 Encounter for follow-up examination after completed treatment for conditions other than malignant neoplasm (principal); J45.909 Unspecified asthma, uncomplicated; E11.9 Type 2 diabetes mellitus without complications; G43.909 Migraine, unspecified, not intractable, without status migrainosus; E03.9 Hypothyroidism, unspecified; Z98.84 Bariatric surgery status; F41.9 Anxiety disorder, unspecified; F31.9 Bipolar disorder, unspecified; K21.9 Gastro-esophageal reflux disease without esophagitis; Z88.5 Allergy status to narcotic agent; Z88.1 Allergy status to other antibiotic agents
CPT/HCPCS: 99211

== ENCOUNTER → 2022-01-23 | Outpatient (CLI) | payer OTHER ==
[2022-01-23 13:50] VITALS: BP 118/81; PULSE 65; TEMP 97.6; BMI 37.9
--- NOTE | 2022-01-23 14:49 | P.HPBAR ---
Bariatric H&P - History & Physicial H&P Date: 01/23/22 History & Physicial: Visit/CC: 8 months sleeve f/u Patient initial contact: Initial weight: 312 kg Initial weight in pounds: 687.84 Height: 5 ft 7 in Initial BMI: 107.7 Last weight: Current weight: 109.769 kg Current weight in pounds: 242.00 Current BMI: 37.9 [place] body weight (based on NIH guidelines): 61.235 kg Excess body weight loss: 80.6% The patient is a 36 year-old F who presents for Bariatric Assessment. Past Medical History Past Medical History: Asthma, Diabetes Mellitus, Fibromyalgia, GERD/Reflux, Sleep Apnea/CPAP/BIPAP, Thyroid Disorder Additional Past Medical History / Comment(s): Migraines with aura, DDD, NIDDM type II, diverticulitis with perforation/colostomy since reversed, IBS, chronic seroma, CARLITOS/no device, polycystic ovaries, hypothyroid, season allergies History of Any Multi-Drug Resistant Organisms: None Reported Past Surgical History: Bariatric Surgery, Bowel Resection, Breast Surgery, Cholecystectomy, Hernia Repair Additional Past Surgical History / Comment(s): 06/06/21 sleeve gastrectomy, rt Breast biopsy. bowel resection with colostomy/ later colostomy reversal, abdominal surgery to remove scar tissue, EGD, colonoscopy, back pain procedures Past Anesthesia/Blood Transfusion Reactions: No Reported Reaction Additional Past Anesthesia/Blood Transfusion Reaction / Comm: no hx blood transfusion, received monoclonal antibodies in Feb 2021 Past Psychological History: Anxiety, Bipolar, Depression Additional Psychological History / Comment(s): Pt has eating disorder-binge eater, borderline personality disorder. Pt resides with her boyfriend and his mother. She is independent. Smoking Status: Never smoker Past Alcohol Use History: None Reported Past Drug Use History: None Reported - Past Family History Mother History Unknown: Yes Family Medical History: COPD Additional Family Medical History / Comment(s): Mother from COPD at the age of 55 yrs. Brother(s) Family Medical History: Diabetes Mellitus Father Family Medical History: Unable to Obtain Surgical - Exam Vital Signs Temp Pulse BP 97.6 F 65 118/81 01/23/22 13:46 01/23/22 13:46 01/23/22 13:46 - General well developed, well nourished, no distress - Eyes PERRL - ENT normal pinna - Neck no masses - Respiratory normal expansion - Cardiovascular Rhythm: regular - Abdomen Abdomen: soft, non tender Bariatric Assessment & Plan Plan: Resolving morbid obesity. Patient's GERD is minimal and will be observed. She'll follow-up in 4 weeks. Bariatric Checklist Checklist: Plan: Checklist: EGD: 1. Hiatal hernia: 2. H. Pylori: HgbA1c: Vitamin D: Smoking: Never smoker Primary care physician referral: Dr. Alaniz Psychiatry clearance: Cardiology clearance: Sleep study: Diet journal: VTE risk score: VTE risk level: Rehab needs at discharge:
== END ==
LOC: BARWHC3 12:58
PROVIDERS: ATTEND Surgery
DX: E66.01 Morbid (severe) obesity due to excess calories (principal); K21.9 Gastro-esophageal reflux disease without esophagitis; J45.909 Unspecified asthma, uncomplicated; E11.9 Type 2 diabetes mellitus without complications; G43.909 Migraine, unspecified, not intractable, without status migrainosus; E03.9 Hypothyroidism, unspecified; Z98.84 Bariatric surgery status; F41.9 Anxiety disorder, unspecified; F31.9 Bipolar disorder, unspecified; Z68.37 Body mass index [BMI] 37.0-37.9, adult
CPT/HCPCS: 99211

== ENCOUNTER 2022-02-11 15:59 | Emergency (ER) | payer OTHER ==
[2022-02-11 16:22] VITALS: TEMP 98.1
[2022-02-11] MEDS ORDERED: SODIUM CHLORIDE 0.9% 1,000 ML IV STA (22:12)
[2022-02-11] MEDS ORDERED: ONDANSETRON 4 MG/2 ML VIAL IVP STA (22:12)
[2022-02-11] MEDS ORDERED: KETOROLAC 15 MG/ML 1 ML VIAL IVP STA (22:26)
[2022-02-11 22:37] LABS: Basophils % (A) 1 %; Eosinophils # (A) 0.1 k/uL (0-0.7); Eosinophils % (A) 1 %; HCT 40.7 % (34.0-46.0); Lymphocytes # (A) 2.4 k/uL (1.0-4.8); Lymphocytes % (A) 29 %; MCH 27.9 pg (25.0-35.0); MCV 87.1 fL (80.0-100.0); Monocytes # (A) 0.5 k/uL (0-1.0); Monocytes % (A) 6 %; Neutrophils # (A) 5.2 k/uL (1.3-7.7); Neutrophils % (A) 62 %; Platelet Count 322 k/uL (150-450); RBC 4.67 m/uL (3.80-5.40); RDW 15.5 % (11.5-15.5); WBC 8.3 k/uL (3.8-10.6)
[2022-02-11 22:48] LABS: ALT 26 U/L (4-34); AST 26 U/L (14-36); African American GFR (CKD) >90 (>60 ml/min/1.73 sqM); Alkaline Phosphatase 62 U/L (38-126); Anion Gap 11 mmol/L; Blood Urea Nitrogen 13 mg/dL (7-17); Calcium 9.1 mg/dL (8.4-10.2); Carbon Dioxide 21 mmol/L (22-30); Chloride 106 mmol/L (98-107); Glucose 118 mg/dL (74-99); Lipase 303 U/L (23-300); Non-African American GFR(CKD) >90 (>60 ml/min/1.73 sqM); Potassium 4.3 mmol/L (3.5-5.1); Sodium 138 mmol/L (137-145); Total Bilirubin 0.3 mg/dL (0.2-1.3); Total Protein 6.7 g/dL (6.3-8.2)
[2022-02-11] MEDS ORDERED: HYDROmorphone 0.5 MG/0.5 ML SYRINGE IVP STA (23:10)
--- NOTE | 2022-02-11 23:20 | ED ---
Abdominal Pain HPI - General Chief Complaint: Abdominal Pain Stated Complaint: ABD Pain Time Seen by Provider: 02/11/22 21:40 Source: patient Mode of arrival: ambulatory Limitations: no limitations - History of Present Illness Initial Comments: Patient is a 36-year-old female who presents to the emergency department with chief complaint of pain. Patient is well-known emergency department and evaluated often for abdominal pain. Patient states symptoms started this morning in the right upper abdomen with nausea and vomiting. Reports she took her home prescription of Rogers with no relief. Denies fever, chills, chest pain, shortness of breath, and other concerns. Last bowel movement was yesterday which patient states was normal, nonbloody - Related Data Home Medications Medication Instructions Recorded Confirmed Levothyroxine Sodium [Synthroid] 50 mcg PO DAILY 05/05/14 01/23/22 Cetirizine HCl [Zyrtec] 10 mg PO DAILY 08/30/19 01/23/22 Pregabalin [Lyrica] 150 mg PO BID 08/30/19 01/23/22 ARIPiprazole [Abilify] 2 mg PO HS 09/14/20 01/23/22 Ondansetron Odt [Zofran ODT] 8 mg PO Q8HR PRN 09/14/20 01/23/22 Venlafaxine HCl [Effexor XR] 225 mg PO HS 09/14/20 01/23/22 Erenumab-Aooe [Aimovig 140 mg SQ QMONTHLY 09/22/20 01/23/22 Autoinjector] norethindrone-e.estradioL-iron 1 tab PO HS 07/09/21 01/23/22 [[place] Fe 1.5 mg-30 Mcg Tablet] HYDROcodone/APAP 7.5-325MG [[place] 1 tab PO BID PRN 08/23/21 01/23/22 7.5-325] Atogepant [Qulipta] 60 mg PO HS 11/28/21 01/23/22 Omgonzfjqgvzde-AD-Tjcopsnjds 1 tab PO DAILY 12/12/21 01/23/22 [Folbic] Ferrous Sulfate [Iron (65 MG 325 mg PO DAILY 12/12/21 01/23/22 Elemental)] Nystatin 100,000 Unit/gm Powd 1 applic TOPICAL BID PRN 12/12/21 01/23/22 [Mycostatin Powder] Nystatin/Triamcin 1 applic TOPICAL BID PRN 12/12/21 01/23/22 [Nystatin-Triamcinolone Cream] Bacitracin Zinc Oint 1 applic TOPICAL BID 01/06/22 01/23/22 Cyclobenzaprine [Flexeril] 10 mg PO DAILY PRN 01/06/22 01/23/22 Allergies Allergy/AdvReac Type Severity Reaction Status Date / Time codeine AdvReac Hallucinati Verified 02/11/22 16:21 ons tramadol AdvReac Hallucinati Verified 02/11/22 16:21 ons valacyclovir HCl AdvReac BLURRED Verified 02/11/22 16:21 [From Valtrex] VISION Review of Systems ROS Statement: Those systems with pertinent positive or pertinent negative responses have been documented in the HPI. ROS Other: All systems not noted in ROS Statement are negative. Past Medical History Past Medical History: Asthma, Diabetes Mellitus, Fibromyalgia, GERD/Reflux, Sleep Apnea/CPAP/BIPAP, Thyroid Disorder Additional Past Medical History / Comment(s): Migraines with aura, DDD, NIDDM type II, diverticulitis with perforation/colostomy since reversed, IBS, chronic seroma, CARLITOS/no device, polycystic ovaries, hypothyroid, season allergies History of Any Multi-Drug Resistant Organisms: None Reported Past Surgical History: Bariatric Surgery, Bowel Resection, Breast Surgery, Cholecystectomy, Hernia Repair Additional Past Surgical History / Comment(s): 06/06/21 sleeve gastrectomy, rt Breast biopsy. bowel resection with colostomy/ later colostomy reversal, abdominal surgery to remove scar tissue, EGD, colonoscopy, back pain procedures Past Anesthesia/Blood Transfusion Reactions: No Reported Reaction Additional Past Anesthesia/Blood Transfusion Reaction / Comment(s): no hx blood transfusion, received monoclonal antibodies in Feb 2021 Past Psychological History: Anxiety, Bipolar, Depression Smoking Status: Never smoker Past Alcohol Use History: None Reported Past Drug Use History: None Reported - Past Family History Mother History Unknown: Yes Family Medical History: COPD Additional Family Medical History / Comment(s): Mother from COPD at the age of 55 yrs. Brother(s) Family Medical History: Diabetes Mellitus Father Family Medical History: Unable to Obtain General Exam Limitations: no limitations General appearance: alert, in no apparent distress Respiratory exam: Present: normal lung sounds bilaterally. Absent: respiratory distress, wheezes, rales, rhonchi, stridor Cardiovascular Exam: Present: regular rate, normal rhythm, normal heart sounds. Absent: systolic murmur, diastolic murmur, rubs, gallop, clicks GI/Abdominal exam: Present: soft, normal bowel sounds. Absent: distended, tenderness, guarding, rebound, rigid Neurological exam: Present: alert, oriented X3, CN II-XII intact Psychiatric exam: Present: normal affect, normal mood Skin exam: Present: warm, dry, intact, normal color. Absent: rash Course Vital Signs 02/11/22 02/11/22 02/11/22 16:19 21:45 23:45 Temperature 98.1 F 98.1 F Pulse Rate 86 85 68 Respiratory 20 16 15 Rate Blood Pressure 115/80 127/84 121/77 O2 Sat by Pulse 99 100 100 Oximetry Medical Decision Making - Medical Decision Making This is a 36-year-old female presenting with recurrent abdominal pain. Laboratory studies were relatively unremarkable. KUB xray is negative for acute process. Patient given Toradol with little relief. We discussed frequent narcotic use in the emergency department. Discussed with patient that we need to come up with a better plan instead of giving her narcotics consistently. Patient states Dr. Meadows will be performing an abdominoplasty when she reaches her goal weight. She states at this time he will be explore her abdomen for adhesions which could be causing her pain. Patient was given 1 dose of Dilaudid which improved her pain. Dr. Botello is my attending. - Lab Data Result diagrams: 02/11/22 22:12 02/11/22 22:12 Lab Results 02/11/22 02/11/22 02/11/22 Range/Units 22:12 22:12 23:00 WBC 8.3 (3.8-10.6) k/uL RBC 4.67 (3.80-5.40) m/uL Hgb 13.0 (11.4-16.0) gm/dL Hct 40.7 (34.0-46.0) % MCV 87.1 (80.0-100.0) fL MCH 27.9 (25.0-35.0) pg MCHC 32.0 (31.0-37.0) g/dL RDW 15.5 (11.5-15.5) % Plt Count 322 (150-450) k/uL MPV 8.0 Neutrophils % 62 % Lymphocytes % 29 % Monocytes % 6 % Eosinophils % 1 % Basophils % 1 % Neutrophils # 5.2 (1.3-7.7) k/uL Lymphocytes # 2.4 (1.0-4.8) k/uL Monocytes # 0.5 (0-1.0) k/uL Eosinophils # 0.1 (0-0.7) k/uL Basophils # 0.0 (0-0.2) k/uL Sodium 138 (137-145) mmol/L Potassium 4.3 (3.5-5.1) mmol/L Chloride 106 (98-107) mmol/L Carbon Dioxide 21 L (22-30) mmol/L Anion Gap 11 mmol/L BUN 13 (7-17) mg/dL Creatinine 0.61 (0.52-1.04) mg/dL Est GFR (CKD-EPI)AfAm >90 (>60 ml/min/1.73 sqM) Est GFR (CKD-EPI)NonAf >90 (>60 ml/min/1.73 sqM) Glucose 118 H (74-99) mg/dL Calcium 9.1 (8.4-10.2) mg/dL Total Bilirubin 0.3 (0.2-1.3) mg/dL AST 26 (14-36) U/L ALT 26 (4-34) U/L Alkaline Phosphatase 62 (38-126) U/L Total Protein 6.7 (6.3-8.2) g/dL Albumin 4.0 (3.5-5.0) g/dL Lipase 303 H (23-300) U/L Urine Color Yellow Urine Appearance Cloudy H (Clear) Urine pH 7.0 (5.0-8.0) Ur Specific [place] 1.031 (1.001-1.035) Urine Protein 1+ H (Negative) Urine Glucose (UA) 3+ H (Negative) Urine Ketones Negative (Negative) Urine Blood Negative (Negative) Urine Nitrite Negative (Negative) Urine Bilirubin Negative (Negative) Urine Urobilinogen 4.0 (<2.0) mg/dL Ur Leukocyte Esterase Large H (Negative) Urine RBC <1 (0-5) /hpf Urine WBC 29 H (0-5) /hpf Ur Squamous Epith Cells 14 H (0-4) /hpf Urine Bacteria Rare H (None) /hpf Urine Mucus Many H (None) /hpf Disposition Clinical Impression: Chronic abdominal pain, Nausea and vomiting Disposition: HOME SELF-CARE Condition: Good Instructions (If sedation given, give patient instructions): Abdominal Pain (ED) Additional Instructions: Please take home prescription of Rogers for pain and zofran for nausea. Follow up with GI specialist in 1-2 days. Return to emergency department if you experience new, concerning, or worsening symptoms. Is patient prescribed a controlled substance at d/c from ED?: No Referrals: Edgardo Inman MD [Primary Care Provider] - 1-2 days
[2022-02-11 23:25] LABS: Appearance,Urine Cloudy (Clear); Bacteria,Urine Rare /hpf; Bilirubin,Urine Negative (Negative); Blood,Urine Negative (Negative); Color,Urine Yellow; Glucose,Urine (UA) 3+ (Negative); Ketones,Urine Negative (Negative); Leukocyte Esterase,Urine Large (Negative); Mucus,Urine Many /hpf; Nitrite,Urine Negative (Negative); Protein,Urine 1+ (Negative); RBC,Urine <1 /hpf (0-5); Specific Gravity,Urine 1.031 (1.001-1.035); Squamous Epithelial Cell,Urine 14 /hpf (0-4); WBC,Urine 29 /hpf (0-5)
--- NOTE | 2022-02-11 23:39 | XR ---
EXAMINATION TYPE: XR KUB DATE OF EXAM: 02/11/2022 COMPARISON: 01/05/2022 HISTORY: Abdominal pain TECHNIQUE: 2 views FINDINGS: 2 views upright were obtained. No sign of intestinal obstruction or pneumoperitoneum. Fecal pattern is normal. No evidence of a mass. Lung bases are clear. No pathologic calcification seen ove r the kidneys. There is previous gastric bariatric surgery. IMPRESSION: Nonacute abdomen. No adverse change.
[2022-02-11 23:46] VITALS: BP 121/77; PULSE 68; RESP 15
== END 2022-02-11 23:49 | disposition home or self-care (01) ==
LOC: EC 15:59
DX: G89.29 Other chronic pain (principal); R10.11 Right upper quadrant pain; R11.2 Nausea with vomiting, unspecified; J45.909 Unspecified asthma, uncomplicated; E11.9 Type 2 diabetes mellitus without complications; E03.9 Hypothyroidism, unspecified; Z79.890 Hormone replacement therapy; Z88.5 Allergy status to narcotic agent; Z88.1 Allergy status to other antibiotic agents
CPT/HCPCS: 36415; 80053; 83690; 85025; 81001; 87086; 74018; 99284; 96374; 96375; 96361; J2405; J1885; J1170

== ENCOUNTER 2022-02-26 16:05 | Emergency (ER) | payer OTHER ==
[2022-02-26 16:44] VITALS: BP 125/86; PULSE 70; RESP 16; TEMP 98
[2022-02-26] MEDS ORDERED: ACYCLOVIR 800 MG TAB PO STA (16:48)
--- NOTE | 2022-02-26 16:53 | ED ---
Skin/Abscess/FB HPI - General Chief complaint: Skin/Abscess/Foreign Body Stated complaint: Staph infection Source: patient, RN notes reviewed Mode of arrival: ambulatory Limitations: no limitations - History of Present Illness Initial comments: This is a pleasant 36-year-old female who noticed a erythematous, vesicular, itchy and slightly painful rash on the left side of her mid back 2 days ago. Recently had tubal ligation. Patient denying any abdominal pain or pelvic pain. She denies any fever or chills. Patient stating she feels well otherwise. No headache, no fever or chills, no changes in vision or hearing, no sore throat or difficulty with speech, no neck pain, no chest pain or shortness of breath, no abdominal pain, no nausea or vomiting, no changes in urination or bowel movements, no numbness or tingling, no extremity pain Past medical, surgical, social, and family history reviewed. MD complaint: rash - Related Data Home Medications Medication Instructions Recorded Confirmed Levothyroxine Sodium [Synthroid] 50 mcg PO DAILY 05/05/14 01/23/22 Cetirizine HCl [Zyrtec] 10 mg PO DAILY 08/30/19 01/23/22 Pregabalin [Lyrica] 150 mg PO BID 08/30/19 01/23/22 ARIPiprazole [Abilify] 2 mg PO HS 09/14/20 01/23/22 Ondansetron Odt [Zofran ODT] 8 mg PO Q8HR PRN 09/14/20 01/23/22 Venlafaxine HCl [Effexor XR] 225 mg PO HS 09/14/20 01/23/22 Erenumab-Aooe [Aimovig 140 mg SQ QMONTHLY 09/22/20 01/23/22 Autoinjector] norethindrone-e.estradioL-iron 1 tab PO HS 07/09/21 01/23/22 [Junel Fe 1.5 mg-30 Mcg Tablet] HYDROcodone/APAP 7.5-325MG [[place] 1 tab PO BID PRN 08/23/21 01/23/22 7.5-325] Atogepant [Qulipta] 60 mg PO HS 11/28/21 01/23/22 Hhdtlxxhsipdck-ZS-Sxahhjfgwv 1 tab PO DAILY 12/12/21 01/23/22 [Folbic] Ferrous Sulfate [Iron (65 MG 325 mg PO DAILY 12/12/21 01/23/22 Elemental)] Nystatin 100,000 Unit/gm Powd 1 applic TOPICAL BID PRN 12/12/21 01/23/22 [Mycostatin Powder] Nystatin/Triamcin 1 applic TOPICAL BID PRN 12/12/21 01/23/22 [Nystatin-Triamcinolone Cream] Bacitracin Zinc Oint 1 applic TOPICAL BID 01/06/22 01/23/22 Cyclobenzaprine [Flexeril] 10 mg PO DAILY PRN 01/06/22 01/23/22 Previous Rx's Medication Instructions Recorded Acyclovir 800 mg PO 5XD 7 Days tab 02/26/22 Allergies Allergy/AdvReac Type Severity Reaction Status Date / Time codeine AdvReac Hallucinati Verified 02/26/22 16:44 ons tramadol AdvReac Hallucinati Verified 02/26/22 16:44 ons valacyclovir HCl AdvReac BLURRED Verified 02/26/22 16:44 [From Valtrex] VISION Review of Systems ROS Statement: Those systems with pertinent positive or pertinent negative responses have been documented in the HPI. ROS Other: All systems not noted in ROS Statement are negative. Past Medical History Past Medical History: Asthma, Diabetes Mellitus, Fibromyalgia, GERD/Reflux, Sleep Apnea/CPAP/BIPAP, Thyroid Disorder Additional Past Medical History / Comment(s): Migraines with aura, DDD, NIDDM type II, diverticulitis with perforation/colostomy since reversed, IBS, chronic seroma, CARLITOS/no device, polycystic ovaries, hypothyroid, season allergies History of Any Multi-Drug Resistant Organisms: None Reported Past Surgical History: Bariatric Surgery, Bowel Resection, Breast Surgery, Cholecystectomy, Hernia Repair Additional Past Surgical History / Comment(s): 06/06/21 sleeve gastrectomy, rt Breast biopsy. bowel resection with colostomy/ later colostomy reversal, abdominal surgery to remove scar tissue, EGD, colonoscopy, back pain procedures Past Anesthesia/Blood Transfusion Reactions: No Reported Reaction Additional Past Anesthesia/Blood Transfusion Reaction / Comment(s): no hx blood transfusion, received monoclonal antibodies in Feb 2021 Past Psychological History: Anxiety, Bipolar, Depression Smoking Status: Never smoker Past Alcohol Use History: None Reported Past Drug Use History: None Reported - Past Family History Mother History Unknown: Yes Family Medical History: COPD Additional Family Medical History / Comment(s): Mother from COPD at the age of 55 yrs. Brother(s) Family Medical History: Diabetes Mellitus Father Family Medical History: Unable to Obtain General Exam Limitations: no limitations General appearance: alert, in no apparent distress Head exam: Present: atraumatic, normocephalic, normal inspection Eye exam: Present: EOMI Neck exam: Present: normal inspection Respiratory exam: Present: normal lung sounds bilaterally. Absent: respiratory distress, wheezes, rales, rhonchi, stridor Cardiovascular Exam: Present: regular rate, normal rhythm, normal heart sounds. Absent: systolic murmur, diastolic murmur, rubs, gallop, clicks GI/Abdominal exam: Present: soft. Absent: tenderness Extremities exam: Present: normal inspection, full ROM Back exam: Present: full ROM. Absent: normal inspection (Vesicular rash noted, left T10 dermatome area.) Neurological exam: Present: alert, oriented X3, CN II-XII intact Skin exam: Present: rash, erythema, vesicles (Erythematous vesicular rash noted to the left T10 dermatome area, consistent with herpes zoster) Course Vital Signs 02/26/22 16:43 Temperature 98 F Pulse Rate 70 Respiratory 16 Rate Blood Pressure 125/86 O2 Sat by Pulse 98 Oximetry Medical Decision Making - Medical Decision Making Patient started on acyclovir 800 mg 5 times daily for 7 days. First dose given here. Patient educated on treatment measures. Educated on avoidance of immunocompromised or women. Patient was told to return to the ER for any signs or symptoms worsen. Told to return immediately if any other problems arise. All questions answered. Treatment plan discussed. Patient in agreement Every effort has been made to ensure accuracy of this dictation. However, due to the limitations of electronic medical records and dictation devices, errors in charting still occur. Associate Manager [employer] Dr. Stearns Disposition Clinical Impression: Herpes zoster Disposition: HOME SELF-CARE Condition: Good Instructions (If sedation given, give patient instructions): Shingles (ED) Additional Instructions: Finish the antiviral medication. Use acetaminophen and/or ibuprofen for pain control. Follow-up with your regular physician as directed. Return to the ER immediately if any symptoms worsen, new symptoms arise, or any other problems develop. Stay away from women until the lesions crust over fully Prescriptions: Acyclovir 800 mg PO 5XD 7 Days tab Is patient prescribed a controlled substance at d/c from ED?: No Referrals: Edgardo Inman MD [Primary Care Provider] - 1-2 days Time of Disposition: 16:53
== END 2022-02-26 17:17 | disposition home or self-care (01) ==
LOC: EC 16:05
DX: B02.9 Zoster without complications (principal); J45.909 Unspecified asthma, uncomplicated; K21.9 Gastro-esophageal reflux disease without esophagitis; E03.9 Hypothyroidism, unspecified; E11.9 Type 2 diabetes mellitus without complications; Z88.5 Allergy status to narcotic agent; Z88.3 Allergy status to other anti-infective agents; Z79.890 Hormone replacement therapy; Z79.899 Other long term (current) drug therapy
CPT/HCPCS: 99282

== ENCOUNTER → 2022-03-06 | Outpatient (CLI) | payer OTHER ==
[2022-03-06 20:22] LABS: Ferritin 17.1 ng/mL (10.0-291.0); Magnesium 2.1 mg/dL (1.5-2.4)
[2022-03-06 20:26] LABS: % Iron Saturation 23.49 (12.00-45.00)
== END | disposition home or self-care (01) ==
LOC: LABWHC1 13:20
PROVIDERS: ATTEND Family Medicine
DX: B35.4 Tinea corporis (principal); D64.9 Anemia, unspecified; R73.9 Hyperglycemia, unspecified
CPT/HCPCS: 36415; 82607; 82728; 82746; 83540; 83550; 83735

== ENCOUNTER 2022-03-09 18:10 | Emergency (ER) | payer OTHER ==
[2022-03-09 18:19] VITALS: RESP 16
[2022-03-09 19:54] VITALS: TEMP 98.7
[2022-03-09] MEDS ORDERED: METOCLOPRAMIDE 5 MG/ML 2 ML VIAL IVP STA (20:00)
[2022-03-09] MEDS ORDERED: SODIUM CHLORIDE 0.9% 1,000 ML IV STA (20:00)
[2022-03-09] MEDS ORDERED: DEXAMETHASONE SOD PHOSPHATE 10 MG/ML 1 ML VIAL IV STA (20:00)
[2022-03-09] MEDS ORDERED: diphenhydrAMINE 50 MG/ML 1 ML VIAL IVP STA (20:00)
[2022-03-09] MEDS ORDERED: KETOROLAC 15 MG/ML 1 ML VIAL IVP STA (20:00)
--- NOTE | 2022-03-09 20:33 | ED ---
Headache HPI - General Chief Complaint: Headache Stated Complaint: Speech issues Time Seen by Provider: 03/09/22 19:47 Mode of arrival: ambulatory Limitations: no limitations - History of Present Illness Initial Comments: Patient is a 36-year-old female presenting with chief complaint of migraine. Patient has history of migraine, states that this episode feels consistent with her regular migraines. Patient is known to have increased stuttering when experiencing a migraine. Patient has been evaluated in our ER previously for similar episodes. She states that this episode started yesterday. Pain is located primarily at the back of the head, as well as on the right side near the restorationism. She has been taking [place] and Flexeril at home which have not alleviated her symptoms. This is not the worst headache of her life, she is having no weakness, fever, chills, vomiting, chest pain, difficulty breathing, abdominal pain, neck pain or stiffness, vision or hearing changes, dizziness. - Related Data Home Medications Medication Instructions Recorded Confirmed Levothyroxine Sodium [Synthroid] 50 mcg PO DAILY 05/05/14 01/23/22 Cetirizine HCl [Zyrtec] 10 mg PO DAILY 08/30/19 01/23/22 Pregabalin [Lyrica] 150 mg PO BID 08/30/19 01/23/22 ARIPiprazole [Abilify] 2 mg PO HS 09/14/20 01/23/22 Ondansetron Odt [Zofran ODT] 8 mg PO Q8HR PRN 09/14/20 01/23/22 Venlafaxine HCl [Effexor XR] 225 mg PO HS 09/14/20 01/23/22 Erenumab-Aooe [Aimovig 140 mg SQ QMONTHLY 09/22/20 01/23/22 Autoinjector] norethindrone-e.estradioL-iron 1 tab PO HS 07/09/21 01/23/22 [Junel Fe 1.5 mg-30 Mcg Tablet] HYDROcodone/APAP 7.5-325MG [[place] 1 tab PO BID PRN 08/23/21 01/23/22 7.5-325] Atogepant [Qulipta] 60 mg PO HS 11/28/21 01/23/22 Svhhziifghekyq-YA-Vggjyqrgul 1 tab PO DAILY 12/12/21 01/23/22 [Folbic] Ferrous Sulfate [Iron (65 MG 325 mg PO DAILY 12/12/21 01/23/22 Elemental)] Nystatin 100,000 Unit/gm Powd 1 applic TOPICAL BID PRN 12/12/21 01/23/22 [Mycostatin Powder] Nystatin/Triamcin 1 applic TOPICAL BID PRN 12/12/21 01/23/22 [Nystatin-Triamcinolone Cream] Bacitracin Zinc Oint 1 applic TOPICAL BID 01/06/22 01/23/22 Cyclobenzaprine [Flexeril] 10 mg PO DAILY PRN 01/06/22 01/23/22 Previous Rx's Medication Instructions Recorded Acyclovir 800 mg PO 5XD 7 Days tab 02/26/22 Allergies Allergy/AdvReac Type Severity Reaction Status Date / Time codeine AdvReac Hallucinati Verified 02/26/22 16:44 ons tramadol AdvReac Hallucinati Verified 02/26/22 16:44 ons valacyclovir HCl AdvReac BLURRED Verified 02/26/22 16:44 [From Valtrex] VISION Review of Systems ROS Statement: Those systems with pertinent positive or pertinent negative responses have been documented in the HPI. ROS Other: All systems not noted in ROS Statement are negative. Past Medical History Past Medical History: Asthma, Diabetes Mellitus, Fibromyalgia, GERD/Reflux, Sleep Apnea/CPAP/BIPAP, Thyroid Disorder Additional Past Medical History / Comment(s): Migraines with aura, DDD, NIDDM type II, diverticulitis with perforation/colostomy since reversed, IBS, chronic seroma, CARLITOS/no device, polycystic ovaries, hypothyroid, season allergies History of Any Multi-Drug Resistant Organisms: None Reported Past Surgical History: Bariatric Surgery, Bowel Resection, Breast Surgery, Cholecystectomy, Hernia Repair Additional Past Surgical History / Comment(s): 06/06/21 sleeve gastrectomy, rt Breast biopsy. bowel resection with colostomy/ later colostomy reversal, abdominal surgery to remove scar tissue, EGD, colonoscopy, back pain procedures Past Anesthesia/Blood Transfusion Reactions: No Reported Reaction Additional Past Anesthesia/Blood Transfusion Reaction / Comment(s): no hx blood transfusion, received monoclonal antibodies in Feb 2021 Past Psychological History: Anxiety, Bipolar, Depression Smoking Status: Never smoker Past Alcohol Use History: None Reported Past Drug Use History: None Reported - Past Family History Mother History Unknown: Yes Family Medical History: COPD Additional Family Medical History / Comment(s): Mother from COPD at the age of 55 yrs. Brother(s) Family Medical History: Diabetes Mellitus Father Family Medical History: Unable to Obtain General Exam General appearance: alert, in no apparent distress Head exam: Present: atraumatic, normocephalic, normal inspection Eye exam: Present: normal appearance, PERRL, EOMI. Absent: scleral icterus, conjunctival injection, periorbital swelling Pupils: Present: normal accommodation Neck exam: Present: normal inspection, full ROM Respiratory exam: Present: normal lung sounds bilaterally. Absent: respiratory distress, wheezes, rales, rhonchi, stridor Cardiovascular Exam: Present: regular rate, normal rhythm, normal heart sounds. Absent: systolic murmur, diastolic murmur, rubs, gallop, clicks Extremities exam: Present: normal inspection, full ROM Neurological exam: Present: alert, oriented X3, CN II-XII intact Expanded Patient oriented to: Present: person, place, time Motor strength exam: RUE: 5, LUE: 5, RLE: 5, LLE: 5 Eye Response: (4) open spontaneously Motor Response: (6) obeys commands Verbal Response: (5) oriented Deny Total: 15 Psychiatric exam: Present: normal affect, normal mood Skin exam: Present: warm, dry, intact, normal color. Absent: rash Course Vital Signs 03/09/22 03/09/22 03/09/22 18:16 19:51 20:53 Temperature 98.5 F 98.7 F Pulse Rate 90 73 83 Respiratory 16 16 Rate Blood Pressure 146/94 141/89 125/70 O2 Sat by Pulse 100 99 98 Oximetry 03/09/22 22:00 Temperature Pulse Rate 76 Respiratory 16 Rate Blood Pressure 128/84 O2 Sat by Pulse 98 Oximetry Medical Decision Making - Medical Decision Making Patient is a 36-year-old female presenting with chief complaint of migraine. Patient's typical migraines are associated with stuttering. No focal neurological deficits. She is well-known to our ER, this episode appears consistent with her regular episodes. Patient is given pain medication, on re assessment she reports improvement. She appears stable for discharge with outpatient follow-up at this time. Patient will follow up with her neurologist. Follow-up with PCP. Report back to ER with any new or worsening symptoms. Discussed return parameters and answered all questions. Patient conveyed verbal understanding and agreed to the plan. I discussed this case in detail with my attending Dr. Lopez Disposition Clinical Impression: Migraine headache Disposition: HOME SELF-CARE Condition: Good Instructions (If sedation given, give patient instructions): Migraine Headache (ED) Additional Instructions: Follow-up with PCP and neurologist. Report back to ER with any new or worsening symptoms. Is patient prescribed a controlled substance at d/c from ED?: No Referrals: Edgardo Inman MD [Primary Care Provider] - 1-2 days Thomas Azar MD [Medical Doctor] - 1-2 days Time of Disposition: 21:54
[2022-03-09] MEDS ORDERED: HYDROmorphone 1 MG/ML 1 ML SYRINGE IVP STA (21:15)
[2022-03-09 22:06] VITALS: BP 128/84; PULSE 76
== END 2022-03-09 22:06 | disposition home or self-care (01) ==
LOC: EC 18:10
DX: R47.9 Unspecified speech disturbances (principal); G43.809 Other migraine, not intractable, without status migrainosus; J45.909 Unspecified asthma, uncomplicated; K21.9 Gastro-esophageal reflux disease without esophagitis; G47.30 Sleep apnea, unspecified; E07.9 Disorder of thyroid, unspecified; F41.9 Anxiety disorder, unspecified; F31.9 Bipolar disorder, unspecified; Z79.810 Long term (current) use of selective estrogen receptor modulators (SERMs); Z79.899 Other long term (current) drug therapy; Z79.84 Long term (current) use of oral hypoglycemic drugs; Z88.5 Allergy status to narcotic agent; Z88.8 Allergy status to other drugs, medicaments and biological substances
CPT/HCPCS: 99283; 96374; 96375 ×4; 96361; J1200; J1100; J2765; J1170; J1885

== ENCOUNTER 2022-03-24 23:04 | Emergency (ER) | payer OTHER ==
[2022-03-25 00:13] VITALS: RESP 16; TEMP 98
[2022-03-25] MEDS ORDERED: LIDOCAINE 1% INJ 10MG/ML (30 ML VIAL-PF) SQ ONE (01:32)
[2022-03-25] MEDS ORDERED: DIPH,PERTUS(ACELL)TETVAC-LF 0.5 ML VIAL IM ONE (01:32)
[2022-03-25] MEDS ORDERED: BACITRACIN OINT 1 EACH PACKET TOPICAL ONE (01:32)
--- NOTE | 2022-03-25 02:51 | ED ---
General Adult HPI - General Chief complaint: Wound/Laceration Stated complaint: [facility] LT hand lac Time Seen by Provider: 03/25/22 01:32 Source: patient, RN notes reviewed Mode of arrival: ambulatory Limitations: no limitations - History of Present Illness Initial comments: 36-year-old female presents to the emergency department for evaluation of laceration to the dorsal surface of the left hand. 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 Bleeding controlled prior to arrival. Denies any loss of sensation or decrease in range of motion. States pain is minimal. Uncertain of last tetanus shot. No other complaints or concerns at this time. - Related Data Home Medications Medication Instructions Recorded Confirmed Levothyroxine Sodium [Synthroid] 50 mcg PO DAILY 05/05/14 01/23/22 Cetirizine HCl [Zyrtec] 10 mg PO DAILY 08/30/19 01/23/22 Pregabalin [Lyrica] 150 mg PO BID 08/30/19 01/23/22 ARIPiprazole [Abilify] 2 mg PO HS 09/14/20 01/23/22 Ondansetron Odt [Zofran ODT] 8 mg PO Q8HR PRN 09/14/20 01/23/22 Venlafaxine HCl [Effexor XR] 225 mg PO HS 09/14/20 01/23/22 Erenumab-Aooe [Aimovig 140 mg SQ QMONTHLY 09/22/20 01/23/22 Autoinjector] norethindrone-e.estradioL-iron 1 tab PO HS 07/09/21 01/23/22 [Junel Fe 1.5 mg-30 Mcg Tablet] HYDROcodone/APAP 7.5-325MG [[place] 1 tab PO BID PRN 08/23/21 01/23/22 7.5-325] Atogepant [Qulipta] 60 mg PO HS 11/28/21 01/23/22 Jvxwdieppvveft-ZM-Clbjnyflvi 1 tab PO DAILY 12/12/21 01/23/22 [Folbic] Ferrous Sulfate [Iron (65 MG 325 mg PO DAILY 12/12/21 01/23/22 Elemental)] Nystatin 100,000 Unit/gm Powd 1 applic TOPICAL BID PRN 12/12/21 01/23/22 [Mycostatin Powder] Nystatin/Triamcin 1 applic TOPICAL BID PRN 12/12/21 01/23/22 [Nystatin-Triamcinolone Cream] Bacitracin Zinc Oint 1 applic TOPICAL BID 01/06/22 01/23/22 Cyclobenzaprine [Flexeril] 10 mg PO DAILY PRN 01/06/22 01/23/22 Previous Rx's Medication Instructions Recorded Acyclovir 800 mg PO 5XD 7 Days tab 02/26/22 Allergies Allergy/AdvReac Type Severity Reaction Status Date / Time codeine AdvReac Hallucinati Verified 02/26/22 16:44 ons tramadol AdvReac Hallucinati Verified 02/26/22 16:44 ons valacyclovir HCl AdvReac BLURRED Verified 02/26/22 16:44 [From Valtrex] VISION Review of Systems ROS Statement: Those systems with pertinent positive or pertinent negative responses have been documented in the HPI. ROS Other: All systems not noted in ROS Statement are negative. Past Medical History Past Medical History: Asthma, Diabetes Mellitus, Fibromyalgia, GERD/Reflux, Sleep Apnea/CPAP/BIPAP, Thyroid Disorder Additional Past Medical History / Comment(s): Migraines with aura, DDD, NIDDM type II, diverticulitis with perforation/colostomy since reversed, IBS, chronic seroma, CARLITOS/no device, polycystic ovaries, hypothyroid, season allergies History of Any Multi-Drug Resistant Organisms: None Reported Past Surgical History: Bariatric Surgery, Bowel Resection, Breast Surgery, Cholecystectomy, Hernia Repair Additional Past Surgical History / Comment(s): 06/06/21 sleeve gastrectomy, rt Breast biopsy. bowel resection with colostomy/ later colostomy reversal, abdominal surgery to remove scar tissue, EGD, colonoscopy, back pain procedures Past Anesthesia/Blood Transfusion Reactions: No Reported Reaction Additional Past Anesthesia/Blood Transfusion Reaction / Comment(s): no hx blood transfusion, received monoclonal antibodies in Feb 2021 Past Psychological History: Anxiety, Bipolar, Depression Smoking Status: Never smoker Past Alcohol Use History: None Reported Past Drug Use History: None Reported - Past Family History Mother History Unknown: Yes Family Medical History: COPD Additional Family Medical History / Comment(s): Mother from COPD at the age of 55 yrs. Brother(s) Family Medical History: Diabetes Mellitus Father Family Medical History: Unable to Obtain General Exam Limitations: no limitations General appearance: alert, in no apparent distress Respiratory exam: Present: normal lung sounds bilaterally. Absent: respiratory distress, wheezes, rales, rhonchi, stridor Cardiovascular Exam: Present: regular rate, normal rhythm, normal heart sounds. Absent: systolic murmur, diastolic murmur, rubs, gallop, clicks Left Forearm Wrist exam: Present: normal inspection, full ROM. Absent: tenderness, swelling Hand Wrist exam: Present: full ROM, laceration. Absent: tenderness, swelling Neuro motor exam: Present: fingers 2-5 abduction intact Neurosensory exam: Present: other (Sensation intact) Vascular: Present: normal capillary refill, radial pulse. Absent: vascular compromise, [place] Neurological exam: Present: alert, oriented X3, CN II-XII intact Psychiatric exam: Present: normal affect, normal mood Skin exam: Present: warm, dry, normal color Expanded Type of lesion: Present: laceration (Superficial 2 cm linear laceration to the dorsal surface of left hand.) Course Vital Signs 03/25/22 03/25/22 00:11 03:14 Temperature 98 F Pulse Rate 80 78 Respiratory 16 16 Rate Blood Pressure 140/93 122/78 O2 Sat by Pulse 98 98 Oximetry Procedures - Laceration Laceration #1 Consent Obtained: verbal consent Indication: laceration Site: hand (Left) Size (cm): 2 Description: linear Depth: simple, single layer Anesthetic Used: lidocaine 1% Anesthesia Technique: local infiltration Amount (mls): 1 Pre-repair: wound explored, irrigated extensively Type of Sutures: nylon Size of Sutures: 5-0 Number of Sutures: 2 Technique: simple, interrupted Patient Tolerated Procedure: well, no complications Additional Comments: Patient tolerated procedure well. She was instructed on appropriate wound care and follow-up plan. Bacitracin dressing applied. 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 Upon exam, there is a superficial 2 cm laceration the dorsal surface of the left hand. Wound is linear. It is cleansed and irrigated. Properly anesthetized. Wound was closed with 2 simple interrupted sutures with good approximation. Bacitracin dressing applied. Tetanus shot was updated. Wound care was discussed in detail. Instructed on appropriate follow-up care and return parameters. Patient verbalizes understanding and agrees with this plan. Attending:Monica Burgess Clinical Impression: Laceration of left hand Disposition: HOME SELF-CARE Condition: Stable Instructions (If sedation given, give patient instructions): Care For Your Stitches (ED), Laceration (ED) Additional Instructions: Gently cleanse wound once daily with mild soap and water. Apply antibiotic ointment and keep hand covered if you will be out of the house. Have sutures removed in 7 days. Monitor carefully for any signs of infection including increased redness, pain, swelling, or foul-smelling drainage. Return to the emergency department with any new, worsening, or concerning symptoms. Is patient prescribed a controlled substance at d/c from ED?: No Referrals: Edgardo Inman MD [Primary Care Provider] - 1-2 days Time of Disposition: 02:51
[2022-03-25 03:14] VITALS: BP 122/78; PULSE 78
== END 2022-03-25 03:14 | disposition home or self-care (01) ==
LOC: EC 23:04
DX: Z23 Encounter for immunization (principal); S61.412A Laceration without foreign body of left hand, initial encounter; J45.909 Unspecified asthma, uncomplicated; E11.9 Type 2 diabetes mellitus without complications; K21.9 Gastro-esophageal reflux disease without esophagitis; G47.30 Sleep apnea, unspecified; E07.9 Disorder of thyroid, unspecified; F41.9 Anxiety disorder, unspecified; F31.9 Bipolar disorder, unspecified; Z79.890 Hormone replacement therapy; Z79.84 Long term (current) use of oral hypoglycemic drugs; Z88.5 Allergy status to narcotic agent; Z88.1 Allergy status to other antibiotic agents; W27.5XXA Contact with paper-cutter, initial encounter
CPT/HCPCS: 99282; 90471; 90715; 12001; J2001

== ENCOUNTER 2022-04-18 22:17 | Emergency (ER) | payer OTHER ==
[2022-04-18] MEDS ORDERED: ONDANSETRON ODT 4 MG TAB PO STA (22:35)
[2022-04-18] MEDS ORDERED: methylPREDNISolone SOD SUCCI 125 MG/2 ML VIAL IV STA (23:14)
[2022-04-18] MEDS ORDERED: SODIUM CHLORIDE 0.9% 1,000 ML IV STA (23:14)
--- NOTE | 2022-04-18 23:16 | CT ---
EXAMINATION TYPE: CT brain nilam wo con DATE OF EXAM: 04/18/2022 COMPARISON: 12/28/2021 CT brain HISTORY: fall x6days ago has had intermitten YOUNG and Vomiting CT DLP: 1553.3 mGycm Automated exposure control for dose reduction was used. Images obtained of the brain and cervical spine with no contrast. Ventricles have normal size. There is no mass effect or midline shift. No sign of intracranial hemorr abilio. Calvarium is intact. No evidence of cerebral edema. There is normal aeration of the mastoid sin uses. These cervical vertebra have mild straightening. This spaces are fairly normal. No compression fractu re. Facet joints are intact. The skull base is intact. IMPRESSION: Negative CT scan of the brain. No change. Mild straightening of the cervical spine could relate to positioning or spasm. No fracture seen.
[2022-04-19] MEDS ORDERED: HYDROmorphone 0.5 MG/0.5 ML SYRINGE IVP STA (00:25)
--- NOTE | 2022-04-19 00:28 | ED ---
Head Injury HPI - General Chief complaint: Head Injury Stated complaint: Fall-head injury,speech issue Time Seen by Provider: 04/18/22 22:35 Source: patient Mode of arrival: ambulatory Limitations: no limitations - History of Present Illness Initial comments: Patient is a 36-year-old female who presents for evaluation of head injury. Patient states her legs gave out a couple days ago which caused her to fall and hit her head on a cabinet. Patient did not lose consciousness. She does take blood thinners. Patient reports migraine and intermittent nausea and vomiting since the fall. States migraine is more severe than normal and her abortive therapy has not worked. She also reports stuttering in her speech. This is a chronic issue for patient along with migraine which she is evaluated in the emergency department for often. She denies lightheadedness, dizziness, double vision, blurry vision, chest pain, shortness of breath, fever. No neck pain or other injury. - Related Data Home Medications Medication Instructions Recorded Confirmed Levothyroxine Sodium [Synthroid] 50 mcg PO DAILY 05/05/14 01/23/22 Cetirizine HCl [Zyrtec] 10 mg PO DAILY 08/30/19 01/23/22 Pregabalin [Lyrica] 150 mg PO BID 08/30/19 01/23/22 ARIPiprazole [Abilify] 2 mg PO HS 09/14/20 01/23/22 Ondansetron Odt [Zofran ODT] 8 mg PO Q8HR PRN 09/14/20 01/23/22 Venlafaxine HCl [Effexor XR] 225 mg PO HS 09/14/20 01/23/22 Erenumab-Aooe [Aimovig 140 mg SQ QMONTHLY 09/22/20 01/23/22 Autoinjector] norethindrone-e.estradioL-iron 1 tab PO HS 07/09/21 01/23/22 [Junel Fe 1.5 mg-30 Mcg Tablet] HYDROcodone/APAP 7.5-325MG [[place] 1 tab PO BID PRN 08/23/21 01/23/22 7.5-325] Atogepant [Qulipta] 60 mg PO HS 11/28/21 01/23/22 Ogihejeppqkiol-TJ-Wencqiwlqy 1 tab PO DAILY 12/12/21 01/23/22 [Folbic] Ferrous Sulfate [Iron (65 MG 325 mg PO DAILY 12/12/21 01/23/22 Elemental)] Nystatin 100,000 Unit/gm Powd 1 applic TOPICAL BID PRN 12/12/21 01/23/22 [Mycostatin Powder] Nystatin/Triamcin 1 applic TOPICAL BID PRN 12/12/21 01/23/22 [Nystatin-Triamcinolone Cream] Bacitracin Zinc Oint 1 applic TOPICAL BID 01/06/22 01/23/22 Cyclobenzaprine [Flexeril] 10 mg PO DAILY PRN 01/06/22 01/23/22 Previous Rx's Medication Instructions Recorded Acyclovir 800 mg PO 5XD 7 Days tab 02/26/22 Metoclopramide [Reglan] 10 mg PO TID PRN #15 tab 04/19/22 Allergies/Adverse reactions: Allergies Allergy/AdvReac Type Severity Reaction Status Date / Time codeine AdvReac Hallucinati Verified 04/18/22 22:32 ons tramadol AdvReac Hallucinati Verified 04/18/22 22:32 ons valacyclovir HCl AdvReac BLURRED Verified 04/18/22 22:32 [From Valtrex] VISION Review of Systems ROS Statement: Those systems with pertinent positive or pertinent negative responses have been documented in the HPI. ROS Other: All systems not noted in ROS Statement are negative. Past Medical History Past Medical History: Asthma, Diabetes Mellitus, Fibromyalgia, GERD/Reflux, Sleep Apnea/CPAP/BIPAP, Thyroid Disorder Additional Past Medical History / Comment(s): Migraines with aura, DDD, NIDDM type II, diverticulitis with perforation/colostomy since reversed, IBS, chronic seroma, CARLITOS/no device, polycystic ovaries, hypothyroid, season allergies History of Any Multi-Drug Resistant Organisms: None Reported Past Surgical History: Bariatric Surgery, Bowel Resection, Breast Surgery, Cholecystectomy, Hernia Repair Additional Past Surgical History / Comment(s): 06/06/21 sleeve gastrectomy, rt Breast biopsy. bowel resection with colostomy/ later colostomy reversal, abdominal surgery to remove scar tissue, EGD, colonoscopy, back pain procedures Past Anesthesia/Blood Transfusion Reactions: No Reported Reaction Additional Past Anesthesia/Blood Transfusion Reaction / Comment(s): no hx blood transfusion, received monoclonal antibodies in Feb 2021 Past Psychological History: Anxiety, Bipolar, Depression Smoking Status: Never smoker Past Alcohol Use History: None Reported Past Drug Use History: None Reported - Past Family History Mother History Unknown: Yes Family Medical History: COPD Additional Family Medical History / Comment(s): Mother from COPD at the age of 55 yrs. Brother(s) Family Medical History: Diabetes Mellitus Father Family Medical History: Unable to Obtain General Exam Limitations: no limitations General appearance: alert, in no apparent distress Head exam: Present: atraumatic, normocephalic, normal inspection Eye exam: Present: normal appearance, PERRL, EOMI. Absent: scleral icterus, conjunctival injection, periorbital swelling Neck exam: Present: normal inspection, full ROM. Absent: tenderness, meningismus, lymphadenopathy Respiratory exam: Present: normal lung sounds bilaterally. Absent: respiratory distress, wheezes, rales, rhonchi, stridor Cardiovascular Exam: Present: regular rate, normal rhythm, normal heart sounds. Absent: systolic murmur, diastolic murmur, rubs, gallop, clicks Extremities exam: Present: normal inspection Neurological exam: Present: alert, oriented X3, CN II-XII intact, other (Stuttering) Psychiatric exam: Present: normal affect, normal mood Skin exam: Present: warm, dry, intact, normal color. Absent: rash Course Vital Signs 04/18/22 04/18/22 04/19/22 22:29 23:37 00:11 Temperature 97.8 F 98.8 F Pulse Rate 76 68 90 Respiratory 20 16 16 Rate Blood Pressure 162/90 118/83 111/74 O2 Sat by Pulse 99 96 95 Oximetry 04/19/22 04/19/22 04/19/22 00:15 00:28 00:34 Temperature 98.6 F Pulse Rate 92 86 83 Respiratory 17 16 16 Rate Blood Pressure 108/70 101/67 107/70 O2 Sat by Pulse 96 94 L 95 Oximetry Medical Decision Making - Medical Decision Making This is a 36-year-old female presenting with head injury.Based on patient's symptoms I did obtain CT of the brain and C-spine without contrast which was interpreted by me. This showed no change from previous in December, negative CT. Patient given migraine cocktail with some relief. We discussed concussion in detail. Patient to be discharged with instruction to follow up with her neurologist and primary care provider Dr. Botello is my attending. Disposition Clinical Impression: Concussion, Migraine, Fall, Nausea and vomiting Disposition: HOME SELF-CARE Condition: Good Instructions (If sedation given, give patient instructions): Concussion (ED) Additional Instructions: Take medication as directed. Do not take this medication while taking Zofran. Follow-up with primary care provider in one to 2 days. Return to the emergency department if you experience new, concerning, or worsening symptoms. Prescriptions: Metoclopramide [Reglan] 10 mg PO TID PRN #15 tab PRN Reason: Nausea Is patient prescribed a controlled substance at d/c from ED?: No Referrals: Edgardo Inman MD [Primary Care Provider] - 1-2 days
[2022-04-19 00:29] VITALS: RESP 16
[2022-04-19] MEDS ORDERED: HYDROcodone/APAP 10-325MG 1 EACH TAB PO ONE (00:30)
[2022-04-19 00:34] VITALS: BP 107/70; PULSE 83; TEMP 98.6
== END 2022-04-19 00:45 | disposition home or self-care (01) ==
LOC: EC 22:17
DX: S06.0X0A Concussion without loss of consciousness, initial encounter (principal); R11.2 Nausea with vomiting, unspecified; G43.909 Migraine, unspecified, not intractable, without status migrainosus; J45.909 Unspecified asthma, uncomplicated; E11.9 Type 2 diabetes mellitus without complications; E03.9 Hypothyroidism, unspecified; K21.9 Gastro-esophageal reflux disease without esophagitis; F41.9 Anxiety disorder, unspecified; F31.9 Bipolar disorder, unspecified; Z88.5 Allergy status to narcotic agent; Z88.6 Allergy status to analgesic agent; Z79.890 Hormone replacement therapy; Z79.899 Other long term (current) drug therapy; W01.198A Fall on same level from slipping, tripping and stumbling with subsequent striking against other object, initial encounter
CPT/HCPCS: 72125; 70450; 99284; 96374; 96361; J2930

== ENCOUNTER 2022-04-20 18:14 | Emergency (ER) | payer OTHER ==
[2022-04-20 18:31] VITALS: BP 148/104; PULSE 69; RESP 16
--- NOTE | 2022-04-20 18:37 | ED ---
General Adult HPI - General Chief complaint: Head Injury Stated complaint: fall - bruising on facial area Time Seen by Provider: 04/20/22 18:30 Source: patient, RN notes reviewed, old records reviewed Mode of arrival: ambulatory Limitations: no limitations - History of Present Illness Initial comments: This a 36-year-old female who presents emergency department stating that last week she fell and hit her head on a cabinet. Patient states she a large hematoma the right side of her forehead and then over the last couple of days there has been bruising under her right eye and bruising to the right side for forehead. Patient states the area where she has a cabinet on her forehead is sleeve machine tender. Patient denies any visual complaints per patient she states her some mild neck pain more the right than the left. Patient denies any numbness weakness. Patient denies any visual disturbance. Patient denies any other injury to her body. Patient states since that time she has not been lightheaded or fallen and she's not sure why she fell last week. - Related Data Home Medications Medication Instructions Recorded Confirmed Levothyroxine Sodium [Synthroid] 50 mcg PO DAILY 05/05/14 01/23/22 Cetirizine HCl [Zyrtec] 10 mg PO DAILY 08/30/19 01/23/22 Pregabalin [Lyrica] 150 mg PO BID 08/30/19 01/23/22 ARIPiprazole [Abilify] 2 mg PO HS 09/14/20 01/23/22 Ondansetron Odt [Zofran ODT] 8 mg PO Q8HR PRN 09/14/20 01/23/22 Venlafaxine HCl [Effexor XR] 225 mg PO HS 09/14/20 01/23/22 Erenumab-Aooe [Aimovig 140 mg SQ QMONTHLY 09/22/20 01/23/22 Autoinjector] norethindrone-e.estradioL-iron 1 tab PO HS 07/09/21 01/23/22 [Junel Fe 1.5 mg-30 Mcg Tablet] HYDROcodone/APAP 7.5-325MG [[place] 1 tab PO BID PRN 08/23/21 01/23/22 7.5-325] Atogepant [Qulipta] 60 mg PO HS 11/28/21 01/23/22 Ifajjhdlvjmckb-WT-Hydaplntbj 1 tab PO DAILY 12/12/21 01/23/22 [Folbic] Ferrous Sulfate [Iron (65 MG 325 mg PO DAILY 12/12/21 01/23/22 Elemental)] Nystatin 100,000 Unit/gm Powd 1 applic TOPICAL BID PRN 12/12/21 01/23/22 [Mycostatin Powder] Nystatin/Triamcin 1 applic TOPICAL BID PRN 12/12/21 01/23/22 [Nystatin-Triamcinolone Cream] Bacitracin Zinc Oint 1 applic TOPICAL BID 01/06/22 01/23/22 Cyclobenzaprine [Flexeril] 10 mg PO DAILY PRN 01/06/22 01/23/22 Previous Rx's Medication Instructions Recorded Acyclovir 800 mg PO 5XD 7 Days tab 02/26/22 Metoclopramide [Reglan] 10 mg PO TID PRN #15 tab 04/19/22 Allergies Allergy/AdvReac Type Severity Reaction Status Date / Time codeine AdvReac Hallucinati Verified 04/18/22 22:32 ons tramadol AdvReac Hallucinati Verified 04/18/22 22:32 ons valacyclovir HCl AdvReac BLURRED Verified 04/18/22 22:32 [From Valtrex] VISION Review of Systems ROS Statement: Those systems with pertinent positive or pertinent negative responses have been documented in the HPI. ROS Other: All systems not noted in ROS Statement are negative. Past Medical History Past Medical History: Asthma, Diabetes Mellitus, Fibromyalgia, GERD/Reflux, Sleep Apnea/CPAP/BIPAP, Thyroid Disorder Additional Past Medical History / Comment(s): Migraines with aura, DDD, NIDDM type II, diverticulitis with perforation/colostomy since reversed, IBS, chronic seroma, CARLITOS/no device, polycystic ovaries, hypothyroid, season allergies History of Any Multi-Drug Resistant Organisms: None Reported Past Surgical History: Bariatric Surgery, Bowel Resection, Breast Surgery, Cholecystectomy, Hernia Repair, Tubal Ligation Additional Past Surgical History / Comment(s): 06/06/21 sleeve gastrectomy, rt Breast biopsy. bowel resection with colostomy/ later colostomy reversal, abdomin al surgery to remove scar tissue, EGD, colonoscopy, back pain procedures Past Anesthesia/Blood Transfusion Reactions: No Reported Reaction Additional Past Anesthesia/Blood Transfusion Reaction / Comment(s): no hx blood transfusion, received monoclonal antibodies in Feb 2021 Past Psychological History: Anxiety, Bipolar, Depression Smoking Status: Never smoker Past Alcohol Use History: None Reported Past Drug Use History: None Reported - Past Family History Mother History Unknown: Yes Family Medical History: COPD Additional Family Medical History / Comment(s): Mother from COPD at the age of 55 yrs. Brother(s) Family Medical History: Diabetes Mellitus Father Family Medical History: Unable to Obtain General Exam - General Exam Comments Initial Comments: GENERAL: Patient is well-developed and well-nourished. Patient is nontoxic and well- hydrated and is in mild distress. There is a hematoma on the right side of the forehead that almost completely resolved there is bruising over the area. ENT: Neck is soft and supple. No significant lymphadenopathy is noted. Oropharynx is clear. Moist mucous membranes. Neck has full range of motion without eliciting any pain. Patient has mild tenderness on the right trapezius muscle EYES: The sclera were anicteric and conjunctiva were pink and moist. Extraocular movements were intact and pupils were equal round and reactive to light. Eyelids were unremarkable. Patient has infraorbital ecchymosis under the right orbit PULMONARY: Unlabored respirations. Good breath sounds bilaterally. No audible rales rhonchi or wheezing was noted. CARDIOVASCULAR: There is a regular rate and rhythm without any murmurs gallops or rubs. ABDOMEN: Soft and nontender with normal bowel sounds. SKIN: Skin is clear with no lesions or rashes and otherwise unremarkable. NEUROLOGIC: Patient is alert and oriented x3. Cranial nerves II through XII are grossly intact. Motor and sensory are also intact. Normal speech, volume and content. Symmetrical smile. MUSCULOSKELETAL: Normal extremities with adequate strength and full range of motion. LYMPHATICS: No significant lymphadenopathy is noted PSYCHIATRIC: Normal psychiatric evaluation. Limitations: no limitations Course Vital Signs 04/20/22 18:27 Temperature 97.8 F Pulse Rate 69 Respiratory 16 Rate Blood Pressure 148/104 O2 Sat by Pulse 98 Oximetry Medical Decision Making - Medical Decision Making CT of the brain was interpreted by me. CT of the brain shows no acute bleed or skull fracture CT of the C-spine was interpreted by me. CT of the C-spine shows no acute fracture Disposition Clinical Impression: Closed head injury Disposition: HOME SELF-CARE Instructions (If sedation given, give patient instructions): Head Injury (ED) Is patient prescribed a controlled substance at d/c from ED?: No Referrals: Edgardo Inman MD [Primary Care Provider] - 1-2 days Time of Disposition: 20:47
[2022-04-20 18:39] VITALS: TEMP 97.8
--- NOTE | 2022-04-20 20:31 | CT ---
EXAMINATION TYPE: CT brain cspine wo con DATE OF EXAM: 04/20/2022 COMPARISON: 04/18/2022 HISTORY: Fall, hit head bruising to both orbits and forehead CT DLP: 1845.7 mGycm. Automated Exposure Control for Dose Reduction was Utilized. Left forearm 122 2545.26 at 8:25 PM. TECHNIQUE: CT scan of the head and cervical spine are performed without contrast. FINDINGS: There is no acute intracranial hemorrhage, mass effect, or midline shift identified. The v entricles and sulci are within normal limits in size. The globes are intact and the visualized sinuse s are clear. Cervical spine is visualized in its entirety from C1 through upper thoracic levels and demonstrates s atisfactory alignment without evidence of acute fracture or dislocation. Prevertebral soft tissue ap pears within normal limits. The C1-C2 articulation is unremarkable. IMPRESSION: 1. There is no acute fracture or dislocation evident in the cervical spine. 2. No acute intracranial hemorrhage, mass effect, or midline shift is seen.
[2022-04-20] MEDS ORDERED: HYDROmorphone 0.5 MG/0.5 ML SYRINGE IM STA (21:06)
== END 2022-04-20 21:15 | disposition home or self-care (01) ==
LOC: EC 18:14
DX: S09.90XA Unspecified injury of head, initial encounter (principal); F41.9 Anxiety disorder, unspecified; F31.9 Bipolar disorder, unspecified; J45.909 Unspecified asthma, uncomplicated; E11.9 Type 2 diabetes mellitus without complications; G47.30 Sleep apnea, unspecified; E03.9 Hypothyroidism, unspecified; Z88.5 Allergy status to narcotic agent; Z88.8 Allergy status to other drugs, medicaments and biological substances; Z79.890 Hormone replacement therapy; Z79.899 Other long term (current) drug therapy; W18.09XA Striking against other object with subsequent fall, initial encounter
CPT/HCPCS: 72125; 70450; 99284; 96372; J1170

== ENCOUNTER 2022-05-11 22:07 | Emergency (ER) | payer OTHER ==
[2022-05-11 22:14] VITALS: BP 158/74; PULSE 97; RESP 16; TEMP 98.5
[2022-05-11] MEDS ORDERED: ORPHENADRINE 30 MG/ML 2 ML VIAL IM STA (23:34)
[2022-05-11] MEDS ORDERED: KETOROLAC 15 MG/ML 1 ML VIAL IM STA (23:34)
--- NOTE | 2022-05-11 23:44 | ED ---
Back Pain HPI - General Chief Complaint: Back Pain/Injury Stated Complaint: L leg numbness Time Seen by Provider: 05/11/22 22:51 Source: patient, RN notes reviewed Limitations: no limitations - History of Present Illness Initial Comments: This is a pleasant 37-year-old female who presents to the emergency department for low back pain with radiation in the left leg. Patient has had this previously and in fact has chronic pain. Patient has muscle relaxers, [place] at home. Patient states this injury occurred yesterday when she bent over to pick up man a dog dish. Patient states her back is been aflame since then. No problems with bowel movements or urination. No fever. Patient is able to ambulate. No headache, no fever or chills, no changes in vision or hearing, no sore throat or difficulty with speech, no neck pain, no chest pain or shortness of breath, no abdominal pain, no nausea or vomiting, no changes in urination or bowel movements, no numbness or tingling, no extremity pain, no skin rashes or lesions. Past medical, surgical, social, and family history reviewed. MD Complaint: back pain Onset/Timin -: days(s) - Related Data Home Medications Medication Instructions Recorded Confirmed Levothyroxine Sodium [Synthroid] 50 mcg PO DAILY 05/05/14 01/23/22 Cetirizine HCl [Zyrtec] 10 mg PO DAILY 08/30/19 01/23/22 Pregabalin [Lyrica] 150 mg PO BID 08/30/19 01/23/22 ARIPiprazole [Abilify] 2 mg PO HS 09/14/20 01/23/22 Ondansetron Odt [Zofran ODT] 8 mg PO Q8HR PRN 09/14/20 01/23/22 Venlafaxine HCl [Effexor XR] 225 mg PO HS 09/14/20 01/23/22 Erenumab-Aooe [Aimovig 140 mg SQ QMONTHLY 09/22/20 01/23/22 Autoinjector] norethindrone-e.estradioL-iron 1 tab PO HS 07/09/21 01/23/22 [Junel Fe 1.5 mg-30 Mcg Tablet] HYDROcodone/APAP 7.5-325MG [[place] 1 tab PO BID PRN 08/23/21 01/23/22 7.5-325] Atogepant [Qulipta] 60 mg PO HS 11/28/21 01/23/22 Lrtwjsokqyezhy-DL-Drxnzbvwxr 1 tab PO DAILY 12/12/21 01/23/22 [Folbic] Ferrous Sulfate [Iron (65 MG 325 mg PO DAILY 12/12/21 01/23/22 Elemental)] Nystatin 100,000 Unit/gm Powd 1 applic TOPICAL BID PRN 12/12/21 01/23/22 [Mycostatin Powder] Nystatin/Triamcin 1 applic TOPICAL BID PRN 12/12/21 01/23/22 [Nystatin-Triamcinolone Cream] Bacitracin Zinc Oint 1 applic TOPICAL BID 01/06/22 01/23/22 Cyclobenzaprine [Flexeril] 10 mg PO DAILY PRN 01/06/22 01/23/22 Previous Rx's Medication Instructions Recorded Acyclovir 800 mg PO 5XD 7 Days tab 02/26/22 Metoclopramide [Reglan] 10 mg PO TID PRN #15 tab 04/19/22 Allergies Allergy/AdvReac Type Severity Reaction Status Date / Time codeine AdvReac Hallucinati Verified 04/18/22 22:32 ons tramadol AdvReac Hallucinati Verified 04/18/22 22:32 ons valacyclovir HCl AdvReac BLURRED Verified 04/18/22 22:32 [From Valtrex] VISION Review of Systems ROS Statement: Those systems with pertinent positive or pertinent negative responses have been documented in the HPI. ROS Other: All systems not noted in ROS Statement are negative. Past Medical History Past Medical History: Asthma, Diabetes Mellitus, Fibromyalgia, GERD/Reflux, Sleep Apnea/CPAP/BIPAP, Thyroid Disorder Additional Past Medical History / Comment(s): Migraines with aura, DDD, NIDDM type II, diverticulitis with perforation/colostomy since reversed, IBS, chronic seroma, CARLITOS/no device, polycystic ovaries, hypothyroid, season allergies History of Any Multi-Drug Resistant Organisms: None Reported Past Surgical History: Bariatric Surgery, Bowel Resection, Breast Surgery, Cholecystectomy, Hernia Repair, Tubal Ligation Additional Past Surgical History / Comment(s): 06/06/21 sleeve gastrectomy, rt Breast biopsy. bowel resection with colostomy/ later colostomy reversal, abdominal surgery to remove scar tissue, EGD, colonoscopy, back pain procedures Past Anesthesia/Blood Transfusion Reactions: No Reported Reaction Additional Past Anesthesia/Blood Transfusion Reaction / Comment(s): no hx blood transfusion, received monoclonal antibodies in Feb 2021 Past Psychological History: Anxiety, Bipolar, Depression Smoking Status: Never smoker Past Alcohol Use History: None Reported Past Drug Use History: None Reported - Past Family History Mother History Unknown: Yes Family Medical History: COPD Additional Family Medical History / Comment(s): Mother from COPD at the age of 55 yrs. Brother(s) Family Medical History: Diabetes Mellitus Father Family Medical History: Unable to Obtain General Exam Limitations: no limitations General appearance: alert, in no apparent distress Head exam: Present: atraumatic, normocephalic, normal inspection Eye exam: Present: normal appearance, PERRL, EOMI. Absent: scleral icterus, conjunctival injection, periorbital swelling ENT exam: Present: normal exam, mucous membranes moist Neck exam: Present: normal inspection, full ROM. Absent: tenderness, meningismus, lymphadenopathy Respiratory exam: Present: normal lung sounds bilaterally. Absent: respiratory distress, wheezes, rales, rhonchi, stridor Cardiovascular Exam: Present: regular rate, normal rhythm, normal heart sounds. Absent: systolic murmur, diastolic murmur, rubs, gallop, clicks GI/Abdominal exam: Present: soft, normal bowel sounds. Absent: distended, tenderness, guarding, rebound, rigid Extremities exam: Present: normal inspection, full ROM, normal capillary refill. Absent: tenderness, pedal edema, joint swelling, calf tenderness Back exam: Present: normal inspection, tenderness (Lumbar paraspinal), paraspinal tenderness. Absent: full ROM, muscle spasm, vertebral tenderness, rash noted Neurological exam: Present: alert, oriented X3, CN II-XII intact, other (Straight leg raise is negative bilaterally). Absent: motor sensory deficit Psychiatric exam: Present: normal affect, normal mood Skin exam: Present: warm, dry, intact, normal color. Absent: rash Course Vital Signs 05/11/22 22:11 Temperature 98.5 F Pulse Rate 97 Respiratory 16 Rate Blood Pressure 158/74 O2 Sat by Pulse 100 Oximetry Medical Decision Making - Medical Decision Making -There are no red flags for concerning back pathology. Specifically: -No history of cancer, this is not a mass effect, MRI not indicated. -No anticoagulation, this is not a bleed. -No fevers, no IVDU, this is not an infectious process. -No trauma, no bony pain, x-rays are not indicated. -With a normal neuro exam, and no urinary or bowel retention or incontinence, there is no clinical sign of motor defect or cauda equina - MRI is not indicated at this point. -No pulsating abdominal mass or risk factors for AAA. -Pain is relieved with rest, which is also less concerning. -I do not believe that x-rays or emergent MRI is indicated at this time. -We will treat symptomatically and discharge home with follow up instructions. -Stretching/strengthening exercise given to patient and they will be referred to physical therapy -Patient instructed to use her own pain medication at home. Was pt. sent in by a medical professional or institution? @ -no Did you speak to anyone other than the patient for history? @ -no Did you review nursing and triage notes? @ -agree Were old charts reviewed? @ -old Differential Diagnosis? @ -Differential Back Pain: Strain, zoster, cauda equina syndrome, epidural abscess, , fracture, subluxation, disc herniation, DJD, spinal stenosis, dissection, AAA, pancreatitis, peptic ulcer disease, pyelonephritis, kidney stone, this is not meant to be an all-inclusive list. EKG interpreted by me (3pts min.)? @ -none X-rays interpreted by me (1pt min.)? @ -[none] CT interpreted by me (1pt min.)? @ -[none] U/S interpreted by me (1pt. min.)? @ -[none] What testing was considered but not performed? (CT, X-rays, U/S, labs)? Why? @ [id number] What meds were considered but not given? Why? @ -We discussed treating pain. Patient has chronic pain related agree to give her 1 dose of narcotic here. Norflex given, ketorolac given. Did you discuss the management of the patient with other professionals? @ -ED attending physician Did you reconcile home meds? @ -[none] Was smoking cessation discussed for >3mins.? @ -I discussed smoking cessation for greater than 3 minutes. The risk of smoking were discussed with the patient including but not limited to risks of cancer, stroke, coronary artery disease and COPD. Also discussed with patient were multiple methods of quitting smoking. Lastly we discussed the financial cost of smoking. Was critical care preformed (if so, how long)? @ -[none] Were there social determinants of health that impacted care today? How? (Homelessness, low income, unemployed, alcoholism, drug addiction, transportati on, low edu. Level, literacy, decrease access to med. care, fci, rehab)? @ -Like pain Was there de-escalation of care discussed even if they declined? (Discuss DNR or withdrawal of care, Hospice)? @ -no What co-morbidities impacted this encounter? (DM, HTN, Smoking, COPD, CAD, Cancer, CVA, Hep., AIDS, mental health diagnosis, sleep apnea, morbid obesity)? @ -Chronic pain Was patient admitted / discharged? @ -Patient was given pain control with Norflex, ketorolac, and one dose of oxycodone. Patient will need to receive any further pain control through her pain management physician. Patient showed no evidence of cauda equina syndrome. Undiagnosed new problem with uncertain prognosis? @ -[none] Drug Therapy requiring intensive monitoring for toxicity (Heparin, Nitro, Insulin, Cardizem)? @ -no Were any procedures done? @ -[none] Diagnosis/symptom? @ -Acute exacerbation of chronic back pain Acute, or Chronic, or Acute on Chronic? @ -Chronic, acute Uncomplicated (without systemic symptoms) or Complicated (systemic symptoms)? @ -Uncomplicated Side effects of treatment? @ -[none] Exacerbation, Progression, or Severe Exacerbation] @ -yes Poses a threat to life or bodily function? @ -Unlikely Patient was told to return to the ER for any signs or symptoms worsen. Told to return immediately if any other problems arise. All questions answered. Treatment plan discussed. Patient in agreement Every effort has been made to ensure accuracy of this dictation. However, due to the limitations of electronic medical records and dictation devices, errors in charting still occur. The case was discussed in detail with ED attending physician. Presentation, findings, treatment plan discussed in detail. Supervising physician Dr. Florez Disposition Clinical Impression: Acute exacerbation of chronic low back pain, Acute left lumbar radiculopathy Disposition: HOME SELF-CARE Condition: Good Instructions (If sedation given, give patient instructions): Chronic Back Pain (DC), Lumbar Radiculopathy (ED) Additional Instructions: Follow-up with your regular physician as directed. Return to the ER immediately if any symptoms worsen, new symptoms arise, or any other problems develop. Is patient prescribed a controlled substance at d/c from ED?: No Referrals: Edgardo Inman MD [Primary Care Provider] - 1-2 days Time of Disposition: 23:48
== END 2022-05-11 23:57 | disposition home or self-care (01) ==
LOC: EC 22:07
DX: M54.16 Radiculopathy, lumbar region (principal); J45.909 Unspecified asthma, uncomplicated; E11.9 Type 2 diabetes mellitus without complications; K21.9 Gastro-esophageal reflux disease without esophagitis; G47.30 Sleep apnea, unspecified; F31.9 Bipolar disorder, unspecified; E07.9 Disorder of thyroid, unspecified; Z79.899 Other long term (current) drug therapy; Z79.890 Hormone replacement therapy; Z88.5 Allergy status to narcotic agent; Z88.6 Allergy status to analgesic agent
CPT/HCPCS: 99283; 96372 ×2; J2360; J1885

== ENCOUNTER 2022-05-19 14:09 | Emergency (ER) | payer OTHER ==
[2022-05-19 14:26] VITALS: RESP 16
--- NOTE | 2022-05-19 14:27 | ED ---
General Adult HPI - General Source: patient, RN notes reviewed Mode of arrival: ambulatory Limitations: no limitations <Jostin Hernandez - Last Filed: 05/19/22 14:26> - History of Present Illness Onset/Timin -: days(s) <Dinorah Jesus - Last Filed: 05/20/22 03:41> - General Stated complaint: abd pain Time Seen by Provider: 05/19/22 14:26 - History of Present Illness Initial comments: 37-year-old female presents emergency Department chief complaint of abdominal pain. Patient's been having some vomiting since yesterday. States she was more central has been on the right side. Patient does have known abdominal surgical history including diverticulitis with perforation, colostomy and reversal. Patient states her surgeon was Dr. Meadows. She states she feels very gassy increasing nausea no dysuria denies any chance (Jostin Hernandez) Upon my evaluation, symptoms are consistent with complaints listed above. However, patient states she has not had any episodes of vomiting. Also notes that the symptoms feel similar to the time when she had a bowel perforation. (Dinorah Jesus) - Related Data Home Medications Medication Instructions Recorded Confirmed Levothyroxine Sodium [Synthroid] 50 mcg PO DAILY 05/05/14 05/19/22 Cetirizine HCl [Zyrtec] 10 mg PO DAILY 08/30/19 05/19/22 Pregabalin [Lyrica] 150 mg PO BID 08/30/19 05/19/22 ARIPiprazole [Abilify] 2 mg PO HS 09/14/20 05/19/22 Venlafaxine HCl [Effexor XR] 225 mg PO HS 09/14/20 05/19/22 Erenumab-Aooe [Aimovig 140 mg SQ Q30D 09/22/20 05/19/22 Autoinjector] norethindrone-e.estradioL-iron 1 tab PO HS 07/09/21 05/19/22 [Junel Fe 1.5 mg-30 Mcg Tablet] HYDROcodone/APAP 7.5-325MG [Coello 1 tab PO BID PRN 08/23/21 05/19/22 7.5-325] Atogepant [Qulipta] 60 mg PO HS 11/28/21 05/19/22 Mtamkbrgjugqzr-RO-Ncwzxlskoo 1 tab PO DAILY 12/12/21 05/19/22 [Folbic] Ferrous Sulfate [Iron (65 MG 325 mg PO DAILY 12/12/21 05/19/22 Elemental)] Nystatin 100,000 Unit/gm Powd 1 applic TOPICAL BID PRN 12/12/21 05/19/22 [Mycostatin Powder] Nystatin/Triamcin 1 applic TOPICAL BID PRN 12/12/21 05/19/22 [Nystatin-Triamcinolone Cream] Cyclobenzaprine [Flexeril] 10 mg PO DAILY PRN 01/06/22 05/19/22 Butalb/Acetaminophen/Caffeine 1 tab PO Q6H PRN 05/19/22 05/19/22 [Fioricet 50-325-40] Ergocalciferol (Vitamin D2) 1,250 mcg PO Q7D 05/19/22 05/19/22 [Drisdol (50,000 Iu)] Fluconazole 200 mg PO GARCIA 05/19/22 05/19/22 Liraglutide [Saxenda] 0.6 mg SQ DAILY 05/19/22 05/19/22 rOPINIRole HCL [Requip] 3 mg PO HS 05/19/22 05/19/22 Previous Rx's Medication Instructions Recorded Metoclopramide [Reglan] 10 mg PO TID PRN #15 tab 04/19/22 Metoclopramide [Reglan] 10 mg PO Q6H PRN #20 tab 05/20/22 Allergies Allergy/AdvReac Type Severity Reaction Status Date / Time codeine AdvReac Hallucinati Verified 04/18/22 22:32 ons tramadol AdvReac Hallucinati Verified 04/18/22 22:32 ons valacyclovir HCl AdvReac BLURRED Verified 04/18/22 22:32 [From Valtrex] VISION Review of Systems ROS Other: All systems not noted in ROS Statement are negative. <Jostin Hernandez - Last Filed: 05/19/22 14:26> ROS Other: All systems not noted in ROS Statement are negative. <Dinorah Jesus - Last Filed: 05/20/22 03:41> ROS Statement: Those systems with pertinent positive or pertinent negative responses have been documented in the HPI. Past Medical History Past Medical History: Asthma, Diabetes Mellitus, Fibromyalgia, GERD/Reflux, Sleep Apnea/CPAP/BIPAP, Thyroid Disorder Additional Past Medical History / Comment(s): Migraines with aura, DDD, NIDDM type II, diverticulitis with perforation/colostomy since reversed, IBS, chronic seroma, CARLITOS/no device, polycystic ovaries, hypothyroid, season allergies History of Any Multi-Drug Resistant Organisms: None Reported Past Surgical History: Bariatric Surgery, Bowel Resection, Breast Surgery, Rachel cystectomy, Hernia Repair, Tubal Ligation Additional Past Surgical History / Comment(s): 06/06/21 sleeve gastrectomy, rt Breast biopsy. bowel resection with colostomy/ later colostomy reversal, abdominal surgery to remove scar tissue, EGD, colonoscopy, back pain procedures uterine ablation Past Anesthesia/Blood Transfusion Reactions: No Reported Reaction Additional Past Anesthesia/Blood Transfusion Reaction / Comment(s): no hx blood transfusion, received monoclonal antibodies in Feb 2021 Past Psychological History: Anxiety, Bipolar, Depression Smoking Status: Never smoker Past Alcohol Use History: None Reported Past Drug Use History: None Reported - Past Family History Mother History Unknown: Yes Family Medical History: COPD Additional Family Medical History / Comment(s): Mother from COPD at the age of 55 yrs. Brother(s) Family Medical History: Diabetes Mellitus Father Family Medical History: Unable to Obtain <Jostin Hernandez - Last Filed: 05/19/22 14:26> General Exam Limitations: no limitations <Jostin Hernandez - Last Filed: 05/19/22 14:26> General appearance: alert, in distress Head exam: Present: atraumatic, normocephalic, normal inspection Respiratory exam: Present: normal lung sounds bilaterally. Absent: respiratory distress, wheezes, rales, rhonchi, stridor Cardiovascular Exam: Present: regular rate, normal rhythm, normal heart sounds. Absent: systolic murmur, diastolic murmur, rubs, gallop, clicks GI/Abdominal exam: Present: soft, tenderness (RLQ), normal bowel sounds. Absent: distended Neurological exam: Present: alert, oriented X3, CN II-XII intact Psychiatric exam: Present: normal affect, normal mood Skin exam: Present: warm, dry, intact, normal color. Absent: rash <Dinorah Jesus - Last Filed: 05/20/22 03:41> Course Vital Signs 05/19/22 05/19/22 05/19/22 14:23 20:48 21:00 Temperature 98.0 F Pulse Rate 95 98 Respiratory 16 16 Rate Blood Pressure 150/85 133/88 O2 Sat by Pulse 99 97 96 Oximetry 05/19/22 05/19/22 05/20/22 22:04 23:00 00:00 Temperature Pulse Rate 97 Respiratory 16 16 16 Rate Blood Pressure 119/71 131/89 127/80 O2 Sat by Pulse 97 94 L 93 L Oximetry 05/20/22 05/20/22 05/20/22 01:00 02:00 02:46 Temperature 98.4 F Pulse Rate 92 Respiratory 16 16 16 Rate Blood Pressure 126/86 117/76 116/82 O2 Sat by Pulse 94 L 95 97 Oximetry Medical Decision Making - Lab Data Result diagrams: 05/19/22 14:24 05/19/22 14:24 - Radiology Data Radiology results: report reviewed, image reviewed <Dinorah Jesus - Last Filed: 05/20/22 03:41> - Medical Decision Making This is a 37-year-old female who presents to the emergency department for abdominal pain. Was pt. sent in by a medical professional or institution? @ -No Did you speak to anyone other than the patient for history? @ -No Did you review nursing and triage notes? @ -Agree, accurate with regards to the patient's symptoms. Were old charts reviewed? @ -No Differential Diagnosis? @ -Differential Abdominal Pain Women: Appendicitis, Cholecystitis, diverticulosis, ischemic bowel, pancreatitis, hepatitis, UTI, gastroenteritis, AAA, incarcerated hernia, bowel obstruction, constipation, inflammatory bowel, hepatitis, peptic ulcer disease, splenic infa rction, perforated viscus, vulvitis, ovarian torsion, PID, kidney stone, placenta abruption, this is not meant to be an all-inclusive list CT interpreted by me (1pt min.)? @ -My interpretation of the computed tomography scan of the abdomen and pelvis identifies no dilation of the appendix or bowel wall thickening. What testing was considered but not performed? (CT, X-rays, U/S, labs)? Why? @ -I suggested a pelvic ultrasound due to her history of PCOS, however she declined. What meds were considered but not given? Why? @ -None Did you discuss the management of the patient with other professionals? @ -No Did you reconcile home meds? @ -No Was smoking cessation discussed for >3mins.? @ -No Was critical care preformed (if so, how long)? @ -No Were there social determinants of health that impacted care today? How? (Homelessness, low income, unemployed, alcoholism, drug addiction, transportation, low edu. Level, literacy, decrease access to med. care, half-way, rehab)? @ -No Was there de-escalation of care discussed even if they declined? (Discuss DNR or withdrawal of care, Hospice)? @ -No What co-morbidities impacted this encounter? (DM, HTN, Smoking, COPD, CAD, Cancer, CVA, Hep., AIDS, mental health diagnosis, sleep apnea, morbid obesity)? @ -Morbid obesity, PCOS, hx of diverticulitis, DM Was patient admitted / discharged? @ -Discharged. Lab work obtained revealing minor leukocytosis and a mildly elevated lactic acid, findings are likely reactive and secondary to dehydration. Computed tomography scan of the abdomen and pelvis obtained and no acute findings were identified to account for her symptoms. I recommended a pelvic ultrasound to the PCOS history, however she declined, stating that they make her uncomfortable. She also states that this does not feel like a typical ovarian cyst for her. Her symptoms were managed with IV fluids, Zofran, Toradol, and Dilaudid. She was given a starter pack for Zofran and a refill on her Reglan. She will follow up with Dr. Meadows on 05/22 as scheduled. Drug Therapy requiring intensive monitoring for toxicity (Heparin, Nitro, Insulin, Cardizem)? @ -None Were any procedures done? @ -None Diagnosis/symptom? @ -RLQ abdominal pain Acute, or Chronic, or Acute on Chronic? @ -Acute Uncomplicated (without systemic symptoms) or Complicated (systemic symptoms)? @ -Uncomplicated Side effects of treatment? @ -None Exacerbation, Progression, or Severe Exacerbation] @ -Not applicable Poses a threat to life or bodily function? @ -May impact bodily function depending on the severity of the symptoms. Return precautions reviewed in depth, the patient is instructed to return to the emergency department with any new, worsening, or concerning symptoms. Patient verbalized understanding. This case was discussed in detail with the attending ED physician. Presentation, findings, and treatment plan discussed in detail as well. (Dinorah Jesus) - Lab Data Lab Results 05/19/22 05/19/22 05/19/22 Range/Units 14:24 14:24 14:24 WBC 12.4 H (3.8-10.6) k/uL RBC 5.20 (3.80-5.40) m/uL Hgb 15.3 (11.4-16.0) gm/dL Hct 46.8 H (34.0-46.0) % MCV 90.1 (80.0-100.0) fL MCH 29.5 (25.0-35.0) pg MCHC 32.7 (31.0-37.0) g/dL RDW 12.6 (11.5-15.5) % Plt Count 356 (150-450) k/uL MPV 7.4 Neutrophils % 73 % Lymphocytes % 21 % Monocytes % 4 % Eosinophils % 1 % Basophils % 1 % Neutrophils # 9.0 H (1.3-7.7) k/uL Lymphocytes # 2.6 (1.0-4.8) k/uL Monocytes # 0.4 (0-1.0) k/uL Eosinophils # 0.1 (0-0.7) k/uL Basophils # 0.1 (0-0.2) k/uL Hypochromasia Slight Sodium 141 (137-145) mmol/L Potassium 4.5 (3.5-5.1) mmol/L Chloride 100 (98-107) mmol/L Carbon Dioxide 30 (22-30) mmol/L Anion Gap 11 mmol/L BUN 15 (7-17) mg/dL Creatinine 0.68 (0.52-1.04) mg/dL Est GFR (CKD-EPI)AfAm >90 (>60 ml/min/1.73 sqM) Est GFR (CKD-EPI)NonAf >90 (>60 ml/min/1.73 sqM) Glucose 117 H (74-99) mg/dL Lactic Ac Sepsis Rflx Plasma Lactic Acid Yobani (0.7-2.0) mmol/L Calcium 9.7 (8.4-10.2) mg/dL Total Bilirubin 0.4 (0.2-1.3) mg/dL AST 32 (14-36) U/L ALT 37 H (4-34) U/L Alkaline Phosphatase 108 (38-126) U/L Total Protein 7.8 (6.3-8.2) g/dL Albumin 4.5 (3.5-5.0) g/dL Lipase 365 H (23-300) U/L Urine Color Yellow Urine Appearance Clear (Clear) Urine pH 6.5 (5.0-8.0) Ur Specific [place] 1.028 (1.001-1.035) Urine Protein Trace H (Negative) Urine Glucose (UA) Negative (Negative) Urine Ketones Negative (Negative) Urine Blood Negative (Negative) Urine Nitrite Negative (Negative) Urine Bilirubin Negative (Negative) Urine Urobilinogen 3.0 (<2.0) mg/dL Ur Leukocyte Esterase Negative (Negative) 05/19/22 05/19/22 Range/Units 14:24 15:44 WBC (3.8-10.6) k/uL RBC (3.80-5.40) m/uL Hgb (11.4-16.0) gm/dL Hct (34.0-46.0) % MCV (80.0-100.0) fL MCH (25.0-35.0) pg MCHC (31.0-37.0) g/dL RDW (11.5-15.5) % Plt Count (150-450) k/uL MPV Neutrophils % % Lymphocytes % % Monocytes % % Eosinophils % % Basophils % % Neutrophils # (1.3-7.7) k/uL Lymphocytes # (1.0-4.8) k/uL Monocytes # (0-1.0) k/uL Eosinophils # (0-0.7) k/uL Basophils # (0-0.2) k/uL Hypochromasia Sodium (137-145) mmol/L Potassium (3.5-5.1) mmol/L Chloride (98-107) mmol/L Carbon Dioxide (22-30) mmol/L Anion Gap mmol/L BUN (7-17) mg/dL Creatinine (0.52-1.04) mg/dL Est GFR (CKD-EPI)AfAm (>60 ml/min/1.73 sqM) Est GFR (CKD-EPI)NonAf (>60 ml/min/1.73 sqM) Glucose (74-99) mg/dL Lactic Ac Sepsis Rflx Y Plasma Lactic Acid Yobani 2.3 H* (0.7-2.0) mmol/L Calcium (8.4-10.2) mg/dL Total Bilirubin (0.2-1.3) mg/dL AST (14-36) U/L ALT (4-34) U/L Alkaline Phosphatase (38-126) U/L Total Protein (6.3-8.2) g/dL Albumin (3.5-5.0) g/dL Lipase (23-300) U/L Urine Color Urine Appearance (Clear) Urine pH (5.0-8.0) Ur Specific [place] (1.001-1.035) Urine Protein (Negative) Urine Glucose (UA) (Negative) Urine Ketones (Negative) Urine Blood (Negative) Urine Nitrite (Negative) Urine Bilirubin (Negative) Urine Urobilinogen (<2.0) mg/dL Ur Leukocyte Esterase (Negative) Disposition <Jostin Hernandez - Last Filed: 05/19/22 14:26> Is patient prescribed a controlled substance at d/c from ED?: No <Dinorah Jesus - Last Filed: 05/20/22 03:41> Clinical Impression: RLQ abdominal pain Disposition: HOME SELF-CARE Instructions (If sedation given, give patient instructions): Abdominal Pain (ED) Additional Instructions: Return to the emergency department with any new, worsening, or concerning symptoms. You can take the Zofran up to every 8 hours and the Reglan up to every 6 hours as needed for nausea and vomiting. Make sure that you remain well-hydrated and slowly advance your diet as tolerated. Follow-up with Dr. Meadows as scheduled on 05/22. Prescriptions: Metoclopramide [Reglan] 10 mg PO Q6H PRN #20 tab PRN Reason: Nausea And Vomiting Referrals: Edgardo Inman MD [Primary Care Provider] - 1-2 days
[2022-05-19 14:54] LABS: Basophils # (A) 0.1 k/uL (0-0.2); Basophils % (A) 1 %; Eosinophils # (A) 0.1 k/uL (0-0.7); Eosinophils % (A) 1 %; HCT 46.8 % (34.0-46.0); HGB 15.3 gm/dL (11.4-16.0); Hypochromasia Slight; Lymphocytes # (A) 2.6 k/uL (1.0-4.8); Lymphocytes % (A) 21 %; MCH 29.5 pg (25.0-35.0); MCHC 32.7 g/dL (31.0-37.0); MCV 90.1 fL (80.0-100.0); Mean Platelet Volume 7.4; Monocytes # (A) 0.4 k/uL (0-1.0); Monocytes % (A) 4 %; Neutrophils % (A) 73 %; Platelet Count 356 k/uL (150-450); RDW 12.6 % (11.5-15.5); WBC 12.4 k/uL (3.8-10.6)
[2022-05-19 15:19] LABS: ALT 37 U/L (4-34); AST 32 U/L (14-36); African American GFR (CKD) >90 (>60 ml/min/1.73 sqM); Albumin 4.5 g/dL (3.5-5.0); Alkaline Phosphatase 108 U/L (38-126); Anion Gap 11 mmol/L; Blood Urea Nitrogen 15 mg/dL (7-17); Calcium 9.7 mg/dL (8.4-10.2); Carbon Dioxide 30 mmol/L (22-30); Chloride 100 mmol/L (98-107); Glucose 117 mg/dL (74-99); Lipase 365 U/L (23-300); Non-African American GFR(CKD) >90 (>60 ml/min/1.73 sqM); Potassium 4.5 mmol/L (3.5-5.1); Sodium 141 mmol/L (137-145); Total Bilirubin 0.4 mg/dL (0.2-1.3); Total Protein 7.8 g/dL (6.3-8.2)
[2022-05-19 15:47] LABS: Appearance,Urine Clear (Clear); Bilirubin,Urine Negative (Negative); Blood,Urine Negative (Negative); Color,Urine Yellow; Glucose,Urine (UA) Negative (Negative); Ketones,Urine Negative (Negative); Leukocyte Esterase,Urine Negative (Negative); Nitrite,Urine Negative (Negative); PH, Urine 6.5 (5.0-8.0); Protein,Urine Trace (Negative); Specific Gravity,Urine 1.028 (1.001-1.035)
[2022-05-19] MEDS ORDERED: SODIUM CHLORIDE 0.9% 1,000 ML IV STA (20:33)
[2022-05-19] MEDS ORDERED: ONDANSETRON 4 MG/2 ML VIAL IVP STA (20:33)
[2022-05-19] MEDS ORDERED: HYDROmorphone 1 MG/ML 1 ML SYRINGE IVP STA ×2 (20:35→23:26)
--- NOTE | 2022-05-19 22:26 | CT ---
EXAMINATION TYPE: CT abdomen pelvis w con DATE OF EXAM: 05/19/2022 COMPARISON: 01/05/2022 HISTORY: Abdominal pain CT DLP: mGycm Automated exposure control for dose reduction was used. Images obtained from the diaphragm to the floor the pelvis with IV contrast. Lung bases show minimal subsegmental atelectasis. There is apparent gastric bariatric surgery. The li odalys spleen pancreas appear intact. The bile ducts are not dilated. Gallbladder appears absent. There is no adrenal mass. Kidneys show satisfactory contrast opacification. No hydronephrosis. The ur eters are not dilated. Delayed images show normal renal excretion. There is no retroperitoneal adenop athy. Appendix is posterior and appears normal. There is subcutaneous density over the lower anterior abdomen that is similar to old exam and consistent with scarring that measures up to 2.5 cm in thick ness. The bladder distends smoothly. No inguinal hernia. No free fluid in the pelvis. Uterus is antev erted and there is IUD in the uterine fundus. There is no mesenteric edema. No ascites or free air. No sign of a bowel obstruction. The lumbar vert ebra appear intact.. No compression fracture. Bony pelvis is intact. The hip joints are intact. IMPRESSION: Previous surgery. Subcutaneous scarring over the lower anterior abdomen. No acute abnormality within the abdomen pelvis. Normal appendix.
[2022-05-19] MEDS ORDERED: KETOROLAC 15 MG/ML 1 ML VIAL IVP STA (23:26)
[2022-05-20] MEDS ORDERED: ONDANSETRON 4 MG ODT STARTER PACK 2 TAB BTL PO STA (02:29)
[2022-05-20 02:48] VITALS: BP 116/82; PULSE 92; TEMP 98.4
== END 2022-05-20 02:48 | disposition home or self-care (01) ==
LOC: EC 14:09
DX: R10.11 Right upper quadrant pain (principal); L90.5 Scar conditions and fibrosis of skin; J45.909 Unspecified asthma, uncomplicated; E11.9 Type 2 diabetes mellitus without complications; K21.9 Gastro-esophageal reflux disease without esophagitis; G47.30 Sleep apnea, unspecified; E07.9 Disorder of thyroid, unspecified; F41.9 Anxiety disorder, unspecified; F31.9 Bipolar disorder, unspecified; Z79.890 Hormone replacement therapy; Z79.899 Other long term (current) drug therapy; Z79.84 Long term (current) use of oral hypoglycemic drugs; Z88.5 Allergy status to narcotic agent; Z88.1 Allergy status to other antibiotic agents
CPT/HCPCS: 36415; 80053; 83605; 83690; 85025; 81003; 74177; 99284; 96374; 96375 ×2; 96376; 96361 ×6; J2405; J1170 ×2; J1885; S0119; Q9967

== ENCOUNTER → 2022-05-22 | Outpatient (CLI) | payer OTHER ==
[2022-05-22 14:01] VITALS: BP 132/86; PULSE 96; TEMP 98.2; BMI 39.0
--- NOTE | 2022-06-12 15:30 | P.HPBAR ---
Bariatric H&P - History & Physicial H&P Date: 05/22/22 History & Physicial: Visit/CC: abd pain, sleeve F/U Patient initial contact: Initial weight: 312 kg Initial weight in pounds: 687.84 Height: 5 ft 7 in Initial BMI: 107.7 Last weight: Current weight: 113.081 kg Current weight in pounds: 249.30 Current BMI: 39.0 [place] body weight (based on NIH guidelines): 61.235 kg Excess body weight loss: 79.3% The patient is a 37 year-old F who presents for Bariatric Assessment. Patient presents today for sleeve gastrectomy follow-up. She's had some complaints of some mild epigastric pain. She's also had some minimal GERD. Past Medical History Past Medical History: Asthma, Diabetes Mellitus, Fibromyalgia, GERD/Reflux, Sleep Apnea/CPAP/BIPAP, Thyroid Disorder Additional Past Medical History / Comment(s): Migraines with aura, DDD, NIDDM type II, diverticulitis with perforation/colostomy since reversed, IBS, chronic seroma, CARLITOS/no device, polycystic ovaries, hypothyroid, season allergies History of Any Multi-Drug Resistant Organisms: None Reported Past Surgical History: Bariatric Surgery, Bowel Resection, Breast Surgery, Cholecystectomy, Hernia Repair, Tubal Ligation, Uterine Ablation Additional Past Surgical History / Comment(s): 06/06/21 sleeve gastrectomy, rt Breast biopsy. bowel resection with colostomy/ later colostomy reversal, abdominal surgery to remove scar tissue, EGD, colonoscopy, back pain procedures uterine ablation Past Anesthesia/Blood Transfusion Reactions: No Reported Reaction Additional Past Anesthesia/Blood Transfusion Reaction / Comm: no hx blood transfusion, received monoclonal antibodies in Feb 2021 Past Psychological History: Anxiety, Bipolar, Depression Additional Psychological History / Comment(s): Pt has eating disorder-binge eater, borderline personality disorder. Pt resides with her boyfriend and his mother. She is independent. Smoking Status: Never smoker Past Alcohol Use History: None Reported Past Drug Use History: None Reported - Past Family History Mother History Unknown: Yes Family Medical History: COPD Additional Family Medical History / Comment(s): Mother from COPD at the age of 55 yrs. Brother(s) Family Medical History: Diabetes Mellitus Father Family Medical History: Unable to Obtain Surgical - Exam Vital Signs Temp Pulse BP 98.2 F 96 132/86 05/22/22 13:53 05/22/22 13:53 05/22/22 13:53 - General well developed, well nourished, no distress - Eyes PERRL - ENT normal pinna, normal nares - Neck no masses - Respiratory normal expansion - Cardiovascular Rhythm: regular - Abdomen Abdomen: soft, non tender Bariatric Assessment & Plan Plan: Patient's GERD is minimal and will be observed. She'll follow-up in 4 weeks. Her abdominal pain will be observed. Bariatric Checklist Checklist: Plan: Checklist: EGD: 1. Hiatal hernia: 2. H. Pylori: HgbA1c: Vitamin D: Smoking: Never smoker Primary care physician referral: Dr. Alaniz Psychiatry clearance: Cardiology clearance: Sleep study: Diet journal: VTE risk score: VTE risk level: Rehab needs at discharge:
== END | disposition home or self-care (01) ==
LOC: BARWHC3 13:14
PROVIDERS: ATTEND Surgery
DX: E66.01 Morbid (severe) obesity due to excess calories (principal); K21.9 Gastro-esophageal reflux disease without esophagitis; Z68.39 Body mass index [BMI] 39.0-39.9, adult; J45.909 Unspecified asthma, uncomplicated; E11.9 Type 2 diabetes mellitus without complications; G47.30 Sleep apnea, unspecified; Z99.89 Dependence on other enabling machines and devices; Z88.5 Allergy status to narcotic agent
CPT/HCPCS: 97803; G0463; 99211

== ENCOUNTER 2022-05-24 12:52 | Emergency (ER) | payer OTHER ==
[2022-05-24 13:41] VITALS: RESP 18
[2022-05-24 15:58] VITALS: TEMP 97.7
[2022-05-24] MEDS ORDERED: SODIUM CHLORIDE 0.9% 1,000 ML IV STA (16:03)
[2022-05-24 16:10] LABS: Basophils # (A) 0.1 k/uL (0-0.2); Basophils % (A) 1 %; Eosinophils # (A) 0.1 k/uL (0-0.7); Eosinophils % (A) 1 %; HGB 14.5 gm/dL (11.4-16.0); Lymphocytes % (A) 16 %; MCH 28.1 pg (25.0-35.0); MCHC 32.2 g/dL (31.0-37.0); MCV 87.4 fL (80.0-100.0); Mean Platelet Volume 7.4; Monocytes # (A) 0.4 k/uL (0-1.0); Monocytes % (A) 4 %; Neutrophils # (A) 9.4 k/uL (1.3-7.7); Neutrophils % (A) 77 %; Platelet Count 321 k/uL (150-450); RBC 5.15 m/uL (3.80-5.40); RDW 13.1 % (11.5-15.5); WBC 12.1 k/uL (3.8-10.6)
[2022-05-24 16:22] LABS: ALT 42 U/L (4-34); AST 33 U/L (14-36); African American GFR (CKD) >90 (>60 ml/min/1.73 sqM); Albumin 4.1 g/dL (3.5-5.0); Alkaline Phosphatase 114 U/L (38-126); Anion Gap 7 mmol/L; Blood Urea Nitrogen 12 mg/dL (7-17); Calcium 9.6 mg/dL (8.4-10.2); Carbon Dioxide 26 mmol/L (22-30); Chloride 109 mmol/L (98-107); Glucose 104 mg/dL (74-99); Non-African American GFR(CKD) >90 (>60 ml/min/1.73 sqM); Potassium 4.1 mmol/L (3.5-5.1); Sodium 142 mmol/L (137-145); Total Bilirubin 0.4 mg/dL (0.2-1.3); Total Protein 7.2 g/dL (6.3-8.2)
[2022-05-24] MEDS ORDERED: ACETAMINOPHEN TAB 500 MG TAB PO STA (16:24)
--- NOTE | 2022-05-24 16:49 | XR ---
EXAMINATION TYPE: XR chest 2V DATE OF EXAM: 05/24/2022 4:33 PM COMPARISON: Chest radiographs from 10/24/2021 TECHNIQUE: XR chest 2V Frontal and lateral views of the chest. CLINICAL INDICATION:Female, 37 years old with history of SOB; FINDINGS: Lungs/Pleura: There is no evidence of pleural effusion, focal consolidation, or pneumothorax. Pulmonary vascularity: Unremarkable. Heart/mediastinum: Cardiomediastinal silhouette is unremarkable. Musculoskeletal: No acute osseous pathology. IMPRESSION: No acute cardiopulmonary disease/process.
--- NOTE | 2022-05-24 16:56 | ED ---
Weakness HPI - General Chief complaint: Weakness Stated complaint: not feeling right Time Seen by Provider: 05/24/22 16:01 Source: patient Mode of arrival: ambulatory - History of Present Illness Initial comments: Patient 37-year-old female who presents to the emergency department with a chief complaint of weakness. She states she woke up this morning feeling weak and shaky with shortness of breath at rest. Patient reports headache. No fever, chills, other upper respiratory symptoms, cough, chest pain, palpitations, dizziness, lightheadedness. No history of DVT or PE . No recent sick contacts. Denies alcohol and drug use - Related Data Home Medications Medication Instructions Recorded Confirmed Levothyroxine Sodium [Synthroid] 50 mcg PO DAILY 05/05/14 05/22/22 Cetirizine HCl [Zyrtec] 10 mg PO DAILY 08/30/19 05/22/22 Pregabalin [Lyrica] 150 mg PO BID 08/30/19 05/22/22 ARIPiprazole [Abilify] 2 mg PO HS 09/14/20 05/22/22 Venlafaxine HCl [Effexor XR] 225 mg PO HS 09/14/20 05/22/22 Erenumab-Aooe [Aimovig 140 mg SQ Q30D 09/22/20 05/22/22 Autoinjector] norethindrone-e.estradioL-iron 1 tab PO HS 07/09/21 05/22/22 [Junel Fe 1.5 mg-30 Mcg Tablet] HYDROcodone/APAP 7.5-325MG [[place] 1 tab PO BID PRN 08/23/21 05/22/22 7.5-325] Atogepant [Qulipta] 60 mg PO HS 11/28/21 05/22/22 Mzfmwarppcxqcj-QY-Zixeuprdyg 1 tab PO DAILY 12/12/21 05/22/22 [Folbic] Ferrous Sulfate [Iron (65 MG 325 mg PO DAILY 12/12/21 05/22/22 Elemental)] Nystatin 100,000 Unit/gm Powd 1 applic TOPICAL BID PRN 12/12/21 05/22/22 [Mycostatin Powder] Nystatin/Triamcin 1 applic TOPICAL BID PRN 12/12/21 05/22/22 [Nystatin-Triamcinolone Cream] Cyclobenzaprine [Flexeril] 10 mg PO DAILY PRN 01/06/22 05/22/22 Butalb/Acetaminophen/Caffeine 1 tab PO Q6H PRN 05/19/22 05/22/22 [Fioricet 50-325-40] Ergocalciferol (Vitamin D2) 1,250 mcg PO Q7D 05/19/22 05/22/22 [Drisdol (50,000 Iu)] Fluconazole 200 mg PO GARCIA 05/19/22 05/22/22 Liraglutide [Saxenda] 0.6 mg SQ DAILY 05/19/22 05/22/22 rOPINIRole HCL [Requip] 3 mg PO HS 05/19/22 05/22/22 Previous Rx's Medication Instructions Recorded Metoclopramide [Reglan] 10 mg PO TID PRN #15 tab 04/19/22 Metoclopramide [Reglan] 10 mg PO Q6H PRN #20 tab 05/20/22 Allergies Allergy/AdvReac Type Severity Reaction Status Date / Time codeine AdvReac Hallucinati Verified 05/24/22 13:41 ons tramadol AdvReac Hallucinati Verified 05/24/22 13:41 ons valacyclovir HCl AdvReac BLURRED Verified 05/24/22 13:41 [From Valtrex] VISION Review of Systems ROS Statement: Those systems with pertinent positive or pertinent negative responses have been documented in the HPI. ROS Other: All systems not noted in ROS Statement are negative. Past Medical History Past Medical History: Asthma, Diabetes Mellitus, Fibromyalgia, GERD/Reflux, Sleep Apnea/CPAP/BIPAP, Thyroid Disorder Additional Past Medical History / Comment(s): Migraines with aura, DDD, NIDDM type II, diverticulitis with perforation/colostomy since reversed, IBS, chronic seroma, CARLITOS/no device, polycystic ovaries, hypothyroid, season allergies History of Any Multi-Drug Resistant Organisms: None Reported Past Surgical History: Bariatric Surgery, Bowel Resection, Breast Surgery, Cholecystectomy, Hernia Repair, Tubal Ligation, Uterine Ablation Additional Past Surgical History / Comment(s): 06/06/21 sleeve gastrectomy, rt Breast biopsy. bowel resection with colostomy/ later colostomy reversal, abdominal surgery to remove scar tissue, EGD, colonoscopy, back pain procedures uterine ablation Past Anesthesia/Blood Transfusion Reactions: No Reported Reaction Additional Past Anesthesia/Blood Transfusion Reaction / Comment(s): no hx blood transfusion, received monoclonal antibodies in Feb 2021 Past Psychological History: Anxiety, Bipolar, Depression Smoking Status: Never smoker Past Alcohol Use History: None Reported Past Drug Use History: None Reported - Past Family History Mother History Unknown: Yes Family Medical History: COPD Additional Family Medical History / Comment(s): Mother from COPD at the age of 55 yrs. Brother(s) Family Medical History: Diabetes Mellitus Father Family Medical History: Unable to Obtain General Exam General appearance: alert, in no apparent distress Head exam: Present: atraumatic, normocephalic, normal inspection Eye exam: Present: normal appearance, PERRL, EOMI. Absent: scleral icterus, conjunctival injection, periorbital swelling ENT exam: Present: normal oropharynx Respiratory exam: Present: normal lung sounds bilaterally. Absent: respiratory distress, wheezes, rales, rhonchi, stridor Cardiovascular Exam: Present: regular rate, normal rhythm, normal heart sounds. Absent: systolic murmur, diastolic murmur, rubs, gallop, clicks Neurological exam: Present: alert, oriented X3, CN II-XII intact Psychiatric exam: Present: normal affect, normal mood Skin exam: Present: warm, dry, intact, normal color. Absent: rash Course Vital Signs 05/24/22 05/24/22 05/24/22 13:38 15:57 16:00 Temperature 97.9 F 97.7 F Pulse Rate 94 78 60 Respiratory 18 18 Rate Blood Pressure 146/84 129/93 129/93 O2 Sat by Pulse 97 100 96 Oximetry 05/24/22 05/24/22 16:30 17:00 Temperature Pulse Rate 73 Respiratory Rate Blood Pressure 117/82 121/80 O2 Sat by Pulse 100 Oximetry Medical Decision Making - Medical Decision Making Was pt. sent in by a medical professional or institution (, PA, SMELTER CHARGER, urgent care, hospital, or [facility]...) When possible be specific @ -[No] Did you speak to anyone other than the patient for history (EMS, parent, family, police, friend...)? What history was obtained from this source @ -[No] Did you review nursing and triage notes (agree or disagree)? Why? @ -[I reviewed and agree with nursing and triage notes] Were old charts reviewed (outside hosp., previous admission, EMS record, old EKG, old radiological studies, urgent care reports/EKG's, [facility] records)? Report findings @ -Yes, patient presents in our ED often for various complaints. Differential Diagnosis (chest pain, altered mental status, abdominal pain women, abdominal pain men, vaginal bleeding, weakness, fever, dyspnea, syncope, headache, dizziness, GI bleed, back pain, seizure, CVA, palpatations, mental health)? @ -Differential Weakness: Hypoglycemia, shock, sepsis, hyponatremia, anemia, infection, MA, ETOH, adverse medicine reaction, overdose, stroke, this is not meant to be an all-inclusive list. EKG interpreted by me (3pts min.). @ -[As above] X-rays interpreted by me (1pt min.). @ -Yes, chest x-ray shows no acute process. CT interpreted by me (1pt min.). @ -[None done] U/S interpreted by me (1pt. min.). @ -[None done] What testing was considered but not performed or refused? (CT, X-rays, U/S, labs)? Why? @ -[None] What meds were considered but not given or refused? Why? @ -[None] Did you discuss the management of the patient with other professionals (professionals i.e. , PA, SMELTER CHARGER, lab, RT, psych nurse, social media strategist, r d internship, teacher, border patrol officer, gearcase assembler)? Give summary @ -[No] Was smoking cessation discussed for >3mins.? @ -[No] Was critical care preformed (if so, how long)? @ -[No] Were there social determinants of health that impacted care today? How? (Homelessness, low income, unemployed, alcoholism, drug addiction, transportation, low edu. Level, literacy, decrease access to med. care, [facility], rehab)? @ -[No] Was there de-escalation of care discussed even if they declined (Discuss DNR or withdrawal of care, Hospice)? DNR status @ -[No] What co-morbidities impacted this encounter? (DM, HTN, Smoking, COPD, CAD, Cancer, CVA, ARF, Chemo, Hep., AIDS, mental health diagnosis, sleep apnea, morbid obesity)? @ -DM, asthma Was patient admitted / discharged? Hospital course, mention meds given and route, prescriptions, significant lab abnormalities, going to OR and other pertinent info. @ -This is a 37 year old female presenting with weakness and SOB. Patient well-appearing, resting comfortably, no evidence of respiratory distress. No hypoxia, no tachycardia. afebrile. Lab studies significant for elevated d-dimer at 0.96, which is not unusual for patient however with complaint of SOB CT chest with angio obtained which is negative for PE. Chest xray negative for acute process. Patient to follow up with PCP. Undiagnosed new problem with uncertain prognosis? @ -[No] Drug Therapy requiring intensive monitoring for toxicity (Heparin, Nitro, Insulin, Cardizem)? @ -[No] Were any procedures done? @ -[No] Diagnosis/symptom? @ -weakness Acute, or Chronic, or Acute on Chronic? @ -acute Uncomplicated (without systemic symptoms) or Complicated (systemic symptoms)? @ -uncomplicated Side effects of treatment? @ -[No] Exacerbation, Progression, or Severe Exacerbation? @ -[No] Poses a threat to life or bodily function? How? (Chest pain, USA, MA, pneumonia, PE, COPD, DKA, ARF, appy, cholecystitis, CVA, Diverticulitis, Homicidal, Suicidal, threat to staff... and all critical care pts) @ -[No] Diagnosis/symptom? @ -SOB Acute, or Chronic, or Acute on Chronic? @ -acute Uncomplicated (without systemic symptoms) or Complicated (systemic symptoms)? @ -uncomplicated Side effects of treatment? @ -[No] Exacerbation, Progression, or Severe Exacerbation? @ -[No] Poses a threat to life or bodily function? How? (Chest pain, USA, MA, pneumonia, PE, COPD, DKA, ARF, appy, cholecystitis, CVA, Diverticulitis, Homicidal, Suicidal, threat to staff... and all critical care pts) @ -[No] Dr. Anderson is my attending. - Lab Data Result diagrams: 05/24/22 15:56 05/24/22 15:56 Lab Results 05/24/22 05/24/22 05/24/22 Range/Units 15:56 15:56 16:05 WBC 12.1 H (3.8-10.6) k/uL RBC 5.15 (3.80-5.40) m/uL Hgb 14.5 (11.4-16.0) gm/dL Hct 45.0 (34.0-46.0) % MCV 87.4 (80.0-100.0) fL MCH 28.1 (25.0-35.0) pg MCHC 32.2 (31.0-37.0) g/dL RDW 13.1 (11.5-15.5) % Plt Count 321 (150-450) k/uL MPV 7.4 Neutrophils % 77 % Lymphocytes % 16 % Monocytes % 4 % Eosinophils % 1 % Basophils % 1 % Neutrophils # 9.4 H (1.3-7.7) k/uL Lymphocytes # 2.0 (1.0-4.8) k/uL Monocytes # 0.4 (0-1.0) k/uL Eosinophils # 0.1 (0-0.7) k/uL Basophils # 0.1 (0-0.2) k/uL D-Dimer 0.96 H (<0.60) mg/L FEU Sodium 142 (137-145) mmol/L Potassium 4.1 (3.5-5.1) mmol/L Chloride 109 H (98-107) mmol/L Carbon Dioxide 26 (22-30) mmol/L Anion Gap 7 mmol/L BUN 12 (7-17) mg/dL Creatinine 0.65 (0.52-1.04) mg/dL Est GFR (CKD-EPI)AfAm >90 (>60 ml/min/1.73 sqM) Est GFR (CKD-EPI)NonAf >90 (>60 ml/min/1.73 sqM) Glucose 104 H (74-99) mg/dL Calcium 9.6 (8.4-10.2) mg/dL Total Bilirubin 0.4 (0.2-1.3) mg/dL AST 33 (14-36) U/L ALT 42 H (4-34) U/L Alkaline Phosphatase 114 (38-126) U/L Total Protein 7.2 (6.3-8.2) g/dL Albumin 4.1 (3.5-5.0) g/dL Urine Color Urine Appearance (Clear) Urine pH (5.0-8.0) Ur Specific [place] (1.001-1.035) Urine Protein (Negative) Urine Glucose (UA) (Negative) Urine Ketones (Negative) Urine Blood (Negative) Urine Nitrite (Negative) Urine Bilirubin (Negative) Urine Urobilinogen (<2.0) mg/dL Ur Leukocyte Esterase (Negative) Urine WBC (0-5) /hpf Ur Squamous Epith Cells (0-4) /hpf Amorphous Sediment (None) /hpf Urine Bacteria (None) /hpf Urine Mucus (None) /hpf Influenza Type A (PCR) (Not Detectd) Influenza Type B (PCR) (Not Detectd) RSV (PCR) (Not Detectd) SARS-CoV-2 (PCR) (Not Detectd) 05/24/22 05/24/22 Range/Units 16:05 17:31 WBC (3.8-10.6) k/uL RBC (3.80-5.40) m/uL Hgb (11.4-16.0) gm/dL Hct (34.0-46.0) % MCV (80.0-100.0) fL MCH (25.0-35.0) pg MCHC (31.0-37.0) g/dL RDW (11.5-15.5) % Plt Count (150-450) k/uL MPV Neutrophils % % Lymphocytes % % Monocytes % % Eosinophils % % Basophils % % Neutrophils # (1.3-7.7) k/uL Lymphocytes # (1.0-4.8) k/uL Monocytes # (0-1.0) k/uL Eosinophils # (0-0.7) k/uL Basophils # (0-0.2) k/uL D-Dimer (<0.60) mg/L FEU Sodium (137-145) mmol/L Potassium (3.5-5.1) mmol/L Chloride (98-107) mmol/L Carbon Dioxide (22-30) mmol/L Anion Gap mmol/L BUN (7-17) mg/dL Creatinine (0.52-1.04) mg/dL Est GFR (CKD-EPI)AfAm (>60 ml/min/1.73 sqM) Est GFR (CKD-EPI)NonAf (>60 ml/min/1.73 sqM) Glucose (74-99) mg/dL Calcium (8.4-10.2) mg/dL Total Bilirubin (0.2-1.3) mg/dL AST (14-36) U/L ALT (4-34) U/L Alkaline Phosphatase (38-126) U/L Total Protein (6.3-8.2) g/dL Albumin (3.5-5.0) g/dL Urine Color Yellow Urine Appearance Clear (Clear) Urine pH 7.0 (5.0-8.0) Ur Specific [place] 1.050 H (1.001-1.035) Urine Protein Trace H (Negative) Urine Glucose (UA) Negative (Negative) Urine Ketones Negative (Negative) Urine Blood Negative (Negative) Urine Nitrite Negative (Negative) Urine Bilirubin Negative (Negative) Urine Urobilinogen 3.0 (<2.0) mg/dL Ur Leukocyte Esterase Small H (Negative) Urine WBC 2 (0-5) /hpf Ur Squamous Epith Cells 6 H (0-4) /hpf Amorphous Sediment Rare H (None) /hpf Urine Bacteria Rare H (None) /hpf Urine Mucus Few H (None) /hpf Influenza Type A (PCR) Not Detected (Not Detectd) Influenza Type B (PCR) Not Detected (Not Detectd) RSV (PCR) Not Detected (Not Detectd) SARS-CoV-2 (PCR) Not Detected (Not Detectd) - EKG Data EKG shows normal: sinus rhythm Disposition Clinical Impression: Weakness, Shortness of breath Disposition: HOME SELF-CARE Condition: Good Instructions (If sedation given, give patient instructions): Weakness (ED) Additional Instructions: Follow-up with primary care provider in one to 2 days. Return to the emergency department if you experience new, concerning, or worsening symptoms. Is patient prescribed a controlled substance at d/c from ED?: No Referrals: Edgardo Inman MD [Primary Care Provider] - 1-2 days Time of Disposition: 17:40
[2022-05-24 17:30] VITALS: BP 121/80; PULSE 73
--- NOTE | 2022-05-24 17:33 | CT ---
EXAMINATION TYPE: CT chest angio for PE CT DLP: 592.3 mGycm, Automated exposure control for dose reduction was used. DATE OF EXAM: 05/24/2022 5:12 PM COMPARISON: None CLINICAL INDICATION:Female, 37 years old with history of SOB , elevated dimer; elevated d-dimer TECHNIQUE/CONTRAST: CTA scan of the thorax is performed with IV Contrast, patient injected with 100 mL of Isovue 370, pul monary embolism protocol. MIP images are created and reviewed [facility] FINDINGS: Pulmonary Artery: There is no evidence for a filling defect within the pulmonary vasculature to sugge st acute pulmonary embolism. The pulmonary artery is of normal size. Lungs/Pleura: No evidence of focal consolidation, pleural effusion or pneumothorax. Airway: Large airways are patent. Heart: Heart is within normal limits for size. Vasculature: No evidence of aortic aneurysm. Mediastinum: No gross evidence of adenopathy. Small hiatal hernia is present. Musculoskeletal: No acute osseous abnormalities Soft Tissues: Unremarkable. Lower neck: No significant findings. Upper Abdomen: Diffuse low-attenuation to the liver parenchyma.. Gastric sleeve changes. IMPRESSION: 1. No evidence of pulmonary embolism. 2. Hepatic steatosis. 3. Gastric sleeve changes with small hiatal hernia.
[2022-05-24 17:43] LABS: Amorphous Sediment,Urine Rare /hpf; Appearance,Urine Clear (Clear); Bacteria,Urine Rare /hpf; Bilirubin,Urine Negative (Negative); Blood,Urine Negative (Negative); Color,Urine Yellow; Glucose,Urine (UA) Negative (Negative); Ketones,Urine Negative (Negative); Leukocyte Esterase,Urine Small (Negative); Mucus,Urine Few /hpf; Nitrite,Urine Negative (Negative); Protein,Urine Trace (Negative); Squamous Epithelial Cell,Urine 6 /hpf (0-4); WBC,Urine 2 /hpf (0-5)
== END 2022-05-24 18:09 | disposition home or self-care (01) ==
LOC: EC 12:52
DX: R53.1 Weakness (principal); R06.02 Shortness of breath; J45.909 Unspecified asthma, uncomplicated; E11.9 Type 2 diabetes mellitus without complications; K21.9 Gastro-esophageal reflux disease without esophagitis; E03.9 Hypothyroidism, unspecified; F41.9 Anxiety disorder, unspecified; F31.9 Bipolar disorder, unspecified; Z88.5 Allergy status to narcotic agent; Z88.1 Allergy status to other antibiotic agents; Z79.890 Hormone replacement therapy; Z79.899 Other long term (current) drug therapy; Z20.822 Contact with and (suspected) exposure to COVID-19
CPT/HCPCS: 36415; 85379; 80053; 85025; 81001; 87636; 71046; 71275; 99285; 96360; Q9967

== ENCOUNTER 2022-06-13 22:22 | Emergency (ER) | payer OTHER ==
[2022-06-13 22:27] VITALS: RESP 16; TEMP 96.9
[2022-06-13] MEDS ORDERED: SODIUM CHLORIDE 0.9% 1,000 ML IV STA (22:48)
[2022-06-13] MEDS ORDERED: KETOROLAC 15 MG/ML 1 ML VIAL IVP STA (22:48)
[2022-06-13] MEDS ORDERED: ONDANSETRON 4 MG/2 ML VIAL IVP STA (22:48)
[2022-06-13] MEDS ORDERED: DEXAMETHASONE SOD PHOSPHATE 10 MG/ML 1 ML VIAL IVP STA (22:48)
[2022-06-13] MEDS ORDERED: diphenhydrAMINE 50 MG/ML 1 ML VIAL IVP STA (22:48)
--- NOTE | 2022-06-13 22:49 | ED ---
Chest Pain HPI - General Chief Complaint: Chest Pain Stated Complaint: Chest Pain, migraine, Weakness in left arm Time Seen by Provider: 06/13/22 22:36 Source: patient, RN notes reviewed Mode of arrival: ambulatory Limitations: no limitations - History of Present Illness Initial Comments: This is a 37-year-old female who presents to the emergency department for a migraine and weakness. States that yesterday she started to develop a migraine. She used her rescue medication which was not effective. She has since started to develop stuttering, which she states happens when her rescue medication does not work. 5-6 hours ago, she started to develop left-sided chest pain and feels like she has weakness or heaviness in the left arm. States that she has never experienced anything like this in the past. Denies any shortness of breath. Denies any fevers, chills, sore throat, cough, dyspnea, palpitations, abdominal pain, nausea, vomiting, diarrhea, or back pain. MD Complaint: chest pain, other (migraine) - Related Data Home Medications Medication Instructions Recorded Confirmed Levothyroxine Sodium [Synthroid] 50 mcg PO DAILY 05/05/14 05/22/22 Cetirizine HCl [Zyrtec] 10 mg PO DAILY 08/30/19 05/22/22 Pregabalin [Lyrica] 150 mg PO BID 08/30/19 05/22/22 ARIPiprazole [Abilify] 2 mg PO HS 09/14/20 05/22/22 Venlafaxine HCl [Effexor XR] 225 mg PO HS 09/14/20 05/22/22 Erenumab-Aooe [Aimovig 140 mg SQ Q30D 09/22/20 05/22/22 Autoinjector] norethindrone-e.estradioL-iron 1 tab PO HS 07/09/21 05/22/22 [Junel Fe 1.5 mg-30 Mcg Tablet] HYDROcodone/APAP 7.5-325MG [Clayhole 1 tab PO BID PRN 08/23/21 05/22/22 7.5-325] Atogepant [Qulipta] 60 mg PO HS 11/28/21 05/22/22 Tyieenmcoebnqu-TH-Kwjnpnvfxz 1 tab PO DAILY 12/12/21 05/22/22 [Folbic] Ferrous Sulfate [Iron (65 MG 325 mg PO DAILY 12/12/21 05/22/22 Elemental)] Nystatin 100,000 Unit/gm Powd 1 applic TOPICAL BID PRN 12/12/21 05/22/22 [Mycostatin Powder] Nystatin/Triamcin 1 applic TOPICAL BID PRN 12/12/21 05/22/22 [Nystatin-Triamcinolone Cream] Cyclobenzaprine [Flexeril] 10 mg PO DAILY PRN 01/06/22 05/22/22 Butalb/Acetaminophen/Caffeine 1 tab PO Q6H PRN 05/19/22 05/22/22 [Fioricet 50-325-40] Ergocalciferol (Vitamin D2) 1,250 mcg PO Q7D 05/19/22 05/22/22 [Drisdol (50,000 Iu)] Fluconazole 200 mg PO GARCIA 05/19/22 05/22/22 Liraglutide [Saxenda] 0.6 mg SQ DAILY 05/19/22 05/22/22 rOPINIRole HCL [Requip] 3 mg PO HS 05/19/22 05/22/22 Previous Rx's Medication Instructions Recorded Metoclopramide [Reglan] 10 mg PO TID PRN #15 tab 04/19/22 Metoclopramide [Reglan] 10 mg PO Q6H PRN #20 tab 05/20/22 Allergies Allergy/AdvReac Type Severity Reaction Status Date / Time codeine AdvReac Hallucinati Verified 06/13/22 22:27 ons tramadol AdvReac Hallucinati Verified 06/13/22 22:27 ons valacyclovir HCl AdvReac BLURRED Verified 06/13/22 22:27 [From Valtrex] VISION Review of Systems ROS Statement: Those systems with pertinent positive or pertinent negative responses have been documented in the HPI. ROS Other: All systems not noted in ROS Statement are negative. Past Medical History Past Medical History: Asthma, Diabetes Mellitus, Fibromyalgia, GERD/Reflux, Sleep Apnea/CPAP/BIPAP, Thyroid Disorder Additional Past Medical History / Comment(s): Migraines with aura, DDD, NIDDM type II, diverticulitis with perforation/colostomy since reversed, IBS, chronic seroma, CARLITOS/no device, polycystic ovaries, hypothyroid, season allergies History of Any Multi-Drug Resistant Organisms: None Reported Past Surgical History: Bariatric Surgery, Bowel Resection, Breast Surgery, Cho lecystectomy, Hernia Repair, Tubal Ligation, Uterine Ablation Additional Past Surgical History / Comment(s): 06/06/21 sleeve gastrectomy, rt Breast biopsy. bowel resection with colostomy/ later colostomy reversal, abdominal surgery to remove scar tissue, EGD, colonoscopy, back pain procedures uterine ablation Past Anesthesia/Blood Transfusion Reactions: No Reported Reaction Additional Past Anesthesia/Blood Transfusion Reaction / Comment(s): no hx blood transfusion, received monoclonal antibodies in Feb 2021 Past Psychological History: Anxiety, Bipolar, Depression Smoking Status: Never smoker Past Alcohol Use History: None Reported Past Drug Use History: None Reported - Past Family History Mother History Unknown: Yes Family Medical History: COPD Additional Family Medical History / Comment(s): Mother from COPD at the age of 55 yrs. Brother(s) Family Medical History: Diabetes Mellitus Father Family Medical History: Unable to Obtain General Exam Limitations: no limitations General appearance: alert, anxious Head exam: Present: atraumatic, normocephalic, normal inspection Eye exam: Present: normal appearance, PERRL, EOMI. Absent: scleral icterus, conjunctival injection, periorbital swelling Respiratory exam: Present: normal lung sounds bilaterally, chest wall tenderness. Absent: respiratory distress, wheezes, rales, rhonchi, stridor Cardiovascular Exam: Present: regular rate, normal rhythm, normal heart sounds. Absent: systolic murmur, diastolic murmur, rubs, gallop, clicks Neurological exam: Present: alert, oriented X3, other (Patient is stuttering.) Expanded Motor strength exam: RUE: 5, LUE: 5, RLE: 5, LLE: 5 Psychiatric exam: Present: normal affect, normal mood Skin exam: Present: warm, dry, intact, normal color. Absent: rash Course Vital Signs 06/13/22 06/13/22 06/14/22 22:24 23:05 00:30 Temperature 96.9 F L Pulse Rate 82 81 Pulse Rate [ 80 [employer]] Respiratory 16 16 Rate Blood Pressure 161/95 136/73 O2 Sat by Pulse 98 98 Oximetry 06/14/22 06/14/22 01:00 03:20 Temperature Pulse Rate 89 84 Pulse Rate [ [employer]] Respiratory 16 16 Rate Blood Pressure 122/68 132/85 O2 Sat by Pulse 94 L 94 L Oximetry Chest Pain MDM - MDM This is a 37-year-old female who presents to the emergency department for a migraine and chest pain. Was pt. sent in by a medical professional or institution? @ -No Did you speak to anyone other than the patient for history? @ -No Did you review nursing and triage notes? @ -Yes, and I agree, it is accurate with regards to the patient's symptoms. Were old charts reviewed? @ -No Differential Diagnosis? @ -Differential Headache: Migraine, tension, cluster, carbon monoxide, central venous thrombosis, pension karma temporal arteritis, acute closure glaucoma, intercranial hemorrhage, mastoiditis, sinusitis, head injury, this is not meant to be an all-inclusive list. -Differential Chest Pain: Stable Angina, Unstable Angina, STEMI, NSTEMI Aortic Dissection, Pneumothorax, Musculoskeletal, Esophageal Spasm GERD, Cholecystitis, Pancreatitis, Zoster, this is not meant to be an all-inclusive list. EKG interpreted by me (3pts min.)? @ -Sinus rhythm. Ventricular rate 76 bpm, SC interval 160 ms, QRS duration 96 ms, QTC 391 ms. X-rays interpreted by me (1pt min.)? @ --Chest x-ray obtained, my interpretation identifies no localized consolidations or infiltrates. CT interpreted by me (1pt min.)? @ -Computed tomography scan of the brain obtained. My interpretation identifies no evidence of an acute intracranial hemorrhage or acute ischemic changes. What testing was considered but not performed? (CT, X-rays, U/S, labs)? Why? @ -None What meds were considered but not given? Why? @ -None Did you discuss the management of the patient with other professionals? @ -No Did you reconcile home meds? @ -No Was smoking cessation discussed for >3mins.? @ -No Was critical care preformed (if so, how long)? @ -No Were there social determinants of health that impacted care today? How? (Homelessness, low income, unemployed, alcoholism, drug addiction, transportation, low edu. Level, literacy, decrease access to med. care, snf, rehab)? @ -No Was there de-escalation of care discussed even if they declined? (Discuss DNR or withdrawal of care, Hospice)? @ -No What co-morbidities impacted this encounter? (DM, HTN, Smoking, COPD, CAD, Cancer, CVA, Hep., AIDS, mental health diagnosis, sleep apnea, morbid obesity)? @ -Asthma, DM, fibromyalgia, GERD, migraines. Was patient admitted / discharged? @ -Discharged. Lab work reveals a mildly elevated d-dimer. Findings discussed with the patient, in that she has a chronically elevated d-dimer when compared with prior values. She's had multiple CTAs of the chest without evidence of a pulmonary embolism. Given that she has no shortness of breath at this time and because this is not higher than it has been in the past, during shared decision- making with the patient, we opted to avoid a CTA of the chest at this time. Lab work was otherwise nonactionable. Chest x-ray reveals no evidence of a pneumonia or other acute process. Computed tomography scan of the brain obtained due to the unilateral weakness, this also revealed no acute changes. Symptoms were managed in the emergency department with a migraine cocktail. Patient felt improved overall and stable for discharge home. Undiagnosed new problem with uncertain prognosis? @ -None Drug Therapy requiring intensive monitoring for toxicity (Heparin, Nitro, Insulin, Cardizem)? @ -None Were any procedures done? @ -None Diagnosis/symptom? @ -Migraine Acute, or Chronic, or Acute on Chronic? @ -Acute Uncomplicated (without systemic symptoms) or Complicated (systemic symptoms)? @ -Uncomplicated Side effects of treatment? @ -None Exacerbation, Progression, or Severe Exacerbation] @ -Not applicable Poses a threat to life or bodily function? @ -No Diagnosis/symptom? @ -Chest pain Acute, or Chronic, or Acute on Chronic? @ -Acute Uncomplicated (without systemic symptoms) or Complicated (systemic symptoms)? @ -Uncomplicated Side effects of treatment? @ -None Exacerbation, Progression, or Severe Exacerbation] @ -Not applicable Poses a threat to life or bodily function? @ -No Return precautions reviewed in depth, the patient is instructed to return to the emergency department with any new, worsening, or concerning symptoms. Patient verbalized understanding. This case was discussed in detail with the attending ED physician, Dr. Botello. Presentation, findings, and treatment plan discussed in detail as well. Disposition Clinical Impression: Migraine, Chest pain Disposition: HOME SELF-CARE Instructions (If sedation given, give patient instructions): Chest Pain (ED), Migraine Headache (ED) Additional Instructions: Return to the emergency department with any new, worsening, or concerning symptoms. Follow up with your primary care provider in 1-2 days. Is patient prescribed a controlled substance at d/c from ED?: No Referrals: Edgardo Inman MD [Primary Care Provider] - 1-2 days
[2022-06-13 23:30] LABS: Basophils # (A) 0.1 k/uL (0-0.2); Basophils % (A) 1 %; Eosinophils # (A) 0.1 k/uL (0-0.7); Eosinophils % (A) 1 %; HCT 42.7 % (34.0-46.0); Lymphocytes # (A) 2.5 k/uL (1.0-4.8); Lymphocytes % (A) 24 %; MCH 28.3 pg (25.0-35.0); MCHC 32.7 g/dL (31.0-37.0); MCV 86.7 fL (80.0-100.0); Mean Platelet Volume 7.4; Monocytes # (A) 0.5 k/uL (0-1.0); Monocytes % (A) 5 %; Neutrophils # (A) 7.2 k/uL (1.3-7.7); Neutrophils % (A) 69 %; Platelet Count 317 k/uL (150-450); RBC 4.93 m/uL (3.80-5.40); RDW 13.2 % (11.5-15.5); WBC 10.5 k/uL (3.8-10.6)
[2022-06-13 23:43] LABS: ALT 44 U/L (4-34); AST 36 U/L (14-36); African American GFR (CKD) >90 (>60 ml/min/1.73 sqM); Albumin 4.2 g/dL (3.5-5.0); Alkaline Phosphatase 124 U/L (38-126); Anion Gap 6 mmol/L; Blood Urea Nitrogen 14 mg/dL (7-17); Calcium 9.4 mg/dL (8.4-10.2); Carbon Dioxide 26 mmol/L (22-30); Chloride 106 mmol/L (98-107); Glucose 141 mg/dL (74-99); Magnesium 2.1 mg/dL (1.6-2.3); Non-African American GFR(CKD) >90 (>60 ml/min/1.73 sqM); Potassium 3.9 mmol/L (3.5-5.1); Sodium 138 mmol/L (137-145); Total Bilirubin 0.4 mg/dL (0.2-1.3)
[2022-06-13 23:46] LABS: INR 0.9 (<1.2); Partial Thromboplastin Time 23.9 sec (22.0-30.0); Prothrombin Time 9.8 sec (9.0-12.0)
--- NOTE | 2022-06-14 00:36 | XR ---
EXAMINATION TYPE: XR chest 2V DATE OF EXAM: 06/13/2022 COMPARISON: 1123 HISTORY: Chest pain TECHNIQUE: 2 views FINDINGS: Heart is normal. Lungs are clear. Diaphragm is normal. Bony thorax appears normal. IMPRESSION: Normal chest. No change.
--- NOTE | 2022-06-14 00:42 | CT ---
EXAMINATION TYPE: CT brain wo con DATE OF EXAM: 06/13/2022 COMPARISON: 04/20/2022 HISTORY: Headache. Left arm weakness. CT DLP: mGycm Automated exposure control for dose reduction was used. Ventricles have normal size. There is no mass effect or midline shift. No sign of intracranial hemorr abilio. The calvarium is intact. No evidence of cerebral edema. IMPRESSION: Negative unenhanced head CT scan. No change.
[2022-06-14 01:08] LABS: Appearance,Urine Clear (Clear); Bilirubin,Urine Negative (Negative); Blood,Urine Negative (Negative); Color,Urine Yellow; Glucose,Urine (UA) Negative (Negative); Ketones,Urine Negative (Negative); Leukocyte Esterase,Urine Negative (Negative); Nitrite,Urine Negative (Negative); PH, Urine 6.5 (5.0-8.0); Protein,Urine Trace (Negative); Specific Gravity,Urine 1.026 (1.001-1.035)
[2022-06-14] MEDS ORDERED: HYDROmorphone 0.5 MG/0.5 ML SYRINGE IVP STA (01:40)
[2022-06-14] MEDS ORDERED: KETOROLAC 15 MG/ML 1 ML VIAL IVP STA (01:40)
[2022-06-14 03:28] VITALS: BP 132/85; PULSE 84
== END 2022-06-14 03:20 | disposition home or self-care (01) ==
LOC: EC 22:22
DX: G43.909 Migraine, unspecified, not intractable, without status migrainosus (principal); R07.89 Other chest pain; J45.909 Unspecified asthma, uncomplicated; E11.9 Type 2 diabetes mellitus without complications; K21.9 Gastro-esophageal reflux disease without esophagitis; E03.9 Hypothyroidism, unspecified; F41.9 Anxiety disorder, unspecified; F31.9 Bipolar disorder, unspecified; Z88.5 Allergy status to narcotic agent; Z88.6 Allergy status to analgesic agent; Z88.8 Allergy status to other drugs, medicaments and biological substances; Z79.890 Hormone replacement therapy; Z79.899 Other long term (current) drug therapy
CPT/HCPCS: 99285; 96374; 96375 ×4; 96361; 96376; 85379; 80053; 83735; 84484; 85025; 85610; 85730; 71046; 70450; J1200; J1100; J2405; J1885; 36415; 81003

== ENCOUNTER → 2022-07-03 | Outpatient (CLI) | payer OTHER ==
[2022-07-03 14:55] VITALS: BP 123/85; PULSE 85; RESP 16; TEMP 98.1; BMI 40.1
--- NOTE | 2022-08-01 12:22 | P.HPBAR ---
Bariatric H&P - History & Physicial H&P Date: 07/03/22 History & Physicial: Visit/CC: ER F/U Patient initial contact: Initial weight: 312 kg Initial weight in pounds: 687.84 Height: 5 ft 7 in Initial BMI: 107.7 Last weight: Current weight: 116.12 kg Current weight in pounds: 256.00 Current BMI: 40.1 [place] body weight (based on NIH guidelines): 61.235 kg Excess body weight loss: 78.1% The patient is a 37 year-old F who presents for Bariatric Assessment. Patient presents today for bariatric follow-up. Patient was recently emergency room due to abdominal pain. Patient has some minimal GERD. Patient has a large pannus. She has a known history of adhesions. Past Medical History Past Medical History: Asthma, Diabetes Mellitus, Fibromyalgia, GERD/Reflux, Sleep Apnea/CPAP/BIPAP, Thyroid Disorder Additional Past Medical History / Comment(s): Migraines with aura, DDD, NIDDM type II, diverticulitis with perforation/colostomy since reversed, IBS, chronic seroma, CARLITOS/no device, polycystic ovaries, hypothyroid, season allergies History of Any Multi-Drug Resistant Organisms: None Reported Past Surgical History: Bariatric Surgery, Bowel Resection, Breast Surgery, Cholecystectomy, Hernia Repair, Tubal Ligation, Uterine Ablation Additional Past Surgical History / Comment(s): 06/06/21 sleeve gastrectomy, rt Breast biopsy. bowel resection with colostomy/ later colostomy reversal, abdominal surgery to remove scar tissue, EGD, colonoscopy, back pain procedures uterine ablation Past Anesthesia/Blood Transfusion Reactions: No Reported Reaction Additional Past Anesthesia/Blood Transfusion Reaction / Comm: no hx blood transfusion, received monoclonal antibodies in Feb 2021 Past Psychological History: Anxiety, Bipolar, Depression Additional Psychological History / Comment(s): Pt has eating disorder-binge eater, borderline personality disorder. Pt resides with her boyfriend and his mother. She is independent. Smoking Status: Never smoker Past Alcohol Use History: None Reported Past Drug Use History: None Reported - Past Family History Mother History Unknown: Yes Family Medical History: COPD Additional Family Medical History / Comment(s): Mother from COPD at the age of 55 yrs. Brother(s) Family Medical History: Diabetes Mellitus Father Family Medical History: Unable to Obtain Surgical - Exam Vital Signs Temp Pulse Resp BP 98.1 F 85 16 123/85 07/03/22 14:52 07/03/22 14:52 07/03/22 14:52 07/03/22 14:52 - General well developed, well nourished, no distress - Eyes PERRL - ENT normal pinna - Neck no masses - Respiratory normal expansion - Cardiovascular Rhythm: regular - Abdomen mild tenderness throughout lower mid abdomen Abdomen: soft Bariatric Assessment & Plan Plan: Morbid obesity. Patient's BMI is 40. Her GERD is minimal will be observed. Her abdominal pain is most likely due to adhesions. Patient will be observed. If she has significant pain she may undergo laparoscopic lysis of adhesions. Bariatric Checklist Checklist: Plan: Checklist: EGD: 1. Hiatal hernia: 2. H. Pylori: HgbA1c: Vitamin D: Smoking: Never smoker Primary care physician referral: Dr. Alaniz Psychiatry clearance: Cardiology clearance: Sleep study: Diet journal: VTE risk score: VTE risk level: Rehab needs at discharge:
== END ==
LOC: BARWHC3 14:21
PROVIDERS: ATTEND Surgery
DX: E66.01 Morbid (severe) obesity due to excess calories (principal); J45.909 Unspecified asthma, uncomplicated; E11.9 Type 2 diabetes mellitus without complications; K21.9 Gastro-esophageal reflux disease without esophagitis; G47.33 Obstructive sleep apnea (adult) (pediatric); E07.9 Disorder of thyroid, unspecified; M79.7 Fibromyalgia; Z68.41 Body mass index [BMI] 40.0-44.9, adult; Z99.89 Dependence on other enabling machines and devices; Z88.5 Allergy status to narcotic agent; Z88.8 Allergy status to other drugs, medicaments and biological substances
CPT/HCPCS: 99211

== ENCOUNTER 2022-07-17 22:21 | Emergency (ER) | payer OTHER ==
[2022-07-17 22:32] VITALS: TEMP 98.4
[2022-07-18] MEDS ORDERED: SODIUM CHLORIDE 0.9% 1,000 ML IV ONE (00:16)
[2022-07-18] MEDS ORDERED: HYDROmorphone 1 MG/ML 1 ML SYRINGE IVP STA (00:16)
[2022-07-18 01:04] LABS: Basophils # (A) 0.1 k/uL (0-0.2); Basophils % (A) 1 %; Eosinophils # (A) 0.3 k/uL (0-0.7); Eosinophils % (A) 3 %; HCT 42.3 % (34.0-46.0); HGB 13.3 gm/dL (11.4-16.0); Lymphocytes # (A) 2.2 k/uL (1.0-4.8); Lymphocytes % (A) 20 %; MCH 28.7 pg (25.0-35.0); MCHC 31.5 g/dL (31.0-37.0); MCV 91.1 fL (80.0-100.0); Mean Platelet Volume 6.9; Monocytes # (A) 0.4 k/uL (0-1.0); Monocytes % (A) 4 %; Neutrophils # (A) 7.9 k/uL (1.3-7.7); Neutrophils % (A) 72 %; Platelet Count 320 k/uL (150-450); RBC 4.64 m/uL (3.80-5.40); RDW 14.2 % (11.5-15.5); WBC 11.1 k/uL (3.8-10.6)
[2022-07-18 01:13] LABS: ALT 48 U/L (4-34); AST 32 U/L (14-36); African American GFR (CKD) >90 (>60 ml/min/1.73 sqM); Albumin 3.9 g/dL (3.5-5.0); Alkaline Phosphatase 105 U/L (38-126); Anion Gap 5 mmol/L; Blood Urea Nitrogen 12 mg/dL (7-17); Calcium 8.9 mg/dL (8.4-10.2); Carbon Dioxide 28 mmol/L (22-30); Chloride 107 mmol/L (98-107); Glucose 121 mg/dL (74-99); Non-African American GFR(CKD) >90 (>60 ml/min/1.73 sqM); Potassium 3.7 mmol/L (3.5-5.1); Sodium 140 mmol/L (137-145); Total Bilirubin 0.3 mg/dL (0.2-1.3); Total Protein 6.6 g/dL (6.3-8.2)
[2022-07-18 01:14] LABS: Lipase 191 U/L (23-300)
--- NOTE | 2022-07-18 01:43 | CT ---
EXAMINATION TYPE: CT abdomen pelvis w con DATE OF EXAM: 07/18/2022 COMPARISON: 06/30/2022 HISTORY: Abd pain post op CT DLP: 1984.9 mGycm Automated exposure control for dose reduction was used. CONTRAST: Performed with IV Contrast, patient injected with 100 mL of Isovue 300. Images obtained from the diaphragm to the floor the pelvis with the IV contrast. There is some mild atelectasis at the posterior lung bases. There are clips from gastric bariatric cuevas rgery. Heart size is normal. No pericardial effusion. No pleural effusion. Liver spleen pancreas appe ar intact. The bile ducts are not dilated. There are clips from cholecystectomy. There is no adrenal mass. Kidneys show satisfactory contrast opacification. No hydronephrosis. Delaye d images show normal renal excretion. No retroperitoneal adenopathy. Bladder distends smoothly. There is IUD in the uterine fundus. Uterus is anteverted. No pelvic mass. No inguinal hernia. No free flui d in the pelvis. There is subcutaneous density at the anterior lower abdominal wall measuring up to 2 cm in thickness and consistent with hematoma. The width is 14 cm. Appendix is posterior and appears normal. There is no mesenteric edema. No ascites or free air. No si gn of a bowel obstruction. The lumbar spine is intact. No compression fracture. The bony pelvis is in tact. Hip joints are intact. IMPRESSION: Subcutaneous increased density in the anterior abdomen consistent with chronic hematoma or scarring a nd not significantly changed in size compared to last exam. Normal appendix. There is some atelectasis at the posterior lung bases which is mostly new compared to old exam.
[2022-07-18] MEDS ORDERED: ONDANSETRON 4 MG/2 ML VIAL IVP STA (02:05)
--- NOTE | 2022-07-18 02:39 | ED ---
General Adult HPI - General Chief complaint: Recheck/Abnormal Lab/Rx Stated complaint: Post Op Abd Pain Time Seen by Provider: 07/17/22 22:30 Source: patient Mode of arrival: ambulatory - History of Present Illness Initial comments: 37-year old female with past history of chronic abdominal pain presents to the emergency department reporting abdominal pain. She recently had ices of adhesions by Dr. Meadows. She had a follow-up appointment today in office. He gave her the clearance that she did go bowling. Reports that she must have overdone it because afterwards she developed significant abdominal pain. She has [place] at home to take for the pain states that it is not touching it. She admits to nausea without vomiting. No diarrhea, constipation, black or bloody stools. No changes in her urination to include dysuria, hematuria or difficulty voiding. No vaginal bleeding or discharge. No other alleviating, precipitating or modifying factors - Related Data Home Medications Medication Instructions Recorded Confirmed Levothyroxine Sodium [Synthroid] 50 mcg PO DAILY 05/05/14 07/17/22 Cetirizine HCl [Zyrtec] 10 mg PO DAILY 08/30/19 07/17/22 Pregabalin [Lyrica] 150 mg PO BID 08/30/19 07/17/22 ARIPiprazole [Abilify] 2 mg PO HS 09/14/20 07/17/22 Venlafaxine HCl [Effexor XR] 225 mg PO HS 09/14/20 07/17/22 Erenumab-Aooe [Aimovig 140 mg SQ Q30D 09/22/20 07/17/22 Autoinjector] HYDROcodone/APAP 7.5-325MG [[place] 1 tab PO BID PRN 08/23/21 07/17/22 7.5-325] Atogepant [Qulipta] 60 mg PO HS 11/28/21 07/17/22 Plsthepguustde-LV-Ylhnyjjhgi 1 tab PO DAILY 12/12/21 07/17/22 [Folbic] Ferrous Sulfate [Iron (65 MG 325 mg PO DAILY 12/12/21 07/17/22 Elemental)] Nystatin 100,000 Unit/gm Powd 1 applic TOPICAL BID PRN 12/12/21 07/17/22 [Mycostatin Powder] Nystatin/Triamcin 1 applic TOPICAL BID PRN 12/12/21 07/17/22 [Nystatin-Triamcinolone Cream] Cyclobenzaprine [Flexeril] 10 mg PO DAILY PRN 01/06/22 07/17/22 Butalb/Acetaminophen/Caffeine 1 tab PO Q6H PRN 05/19/22 07/17/22 [Fioricet 50-325-40] Ergocalciferol (Vitamin D2) 1,250 mcg PO Q7D 05/19/22 07/17/22 [Drisdol (50,000 Iu)] Fluconazole 200 mg PO GARCIA 05/19/22 07/17/22 rOPINIRole HCL [Requip] 3 mg PO HS 05/19/22 07/17/22 Semaglutide [Wegovy] 0.25 mg SQ Q7D 07/05/22 07/17/22 Previous Rx's Medication Instructions Recorded Metoclopramide [Reglan] 10 mg PO TID PRN #15 tab 04/19/22 Acetaminophen Tab [Tylenol] 650 mg PO Q6H #30 tab 07/11/22 Docusate [Colace] 100 mg PO BID #20 capsule 07/11/22 Ibuprofen [Motrin] 600 mg PO Q6HR PRN #40 tab 07/11/22 oxyCODONE HCL [OxyIR] 5 mg PO Q6H PRN 3 Days #10 tab 07/11/22 Allergies Allergy/AdvReac Type Severity Reaction Status Date / Time codeine AdvReac Hallucinati Verified 07/17/22 22:32 ons tramadol AdvReac Hallucinati Verified 07/17/22 22:32 ons valacyclovir HCl AdvReac BLURRED Verified 07/17/22 22:32 [From Valtrex] VISION Review of Systems ROS Statement: Those systems with pertinent positive or pertinent negative responses have been documented in the HPI. ROS Other: All systems not noted in ROS Statement are negative. Past Medical History Past Medical History: Asthma, Diabetes Mellitus, Fibromyalgia, GERD/Reflux, Sleep Apnea/CPAP/BIPAP, Thyroid Disorder Additional Past Medical History / Comment(s): Migraines with aura, DDD, NIDDM type II, diverticulitis with perforation/colostomy since reversed, IBS, chronic seroma, CARLITOS/no device, polycystic ovaries, hypothyroid, season allergies History of Any Multi-Drug Resistant Organisms: None Reported Past Surgical History: Bariatric Surgery, Bowel Resection, Breast Surgery, Cholecystectomy, Hernia Repair, Tubal Ligation, Uterine Ablation Additional Past Surgical History / Comment(s): 06/06/21 sleeve gastrectomy, rt Breast biopsy. bowel resection with colostomy/ later colostomy reversal, abdominal surgery to remove scar tissue, EGD, colonoscopy, back pain procedures uterine ablation, lysis of adhesions 07/11/22 Past Anesthesia/Blood Transfusion Reactions: No Reported Reaction Additional Past Anesthesia/Blood Transfusion Reaction / Comment(s): no hx blood transfusion, received monoclonal antibodies in Feb 2021 Past Psychological History: Anxiety, Bipolar, Depression Smoking Status: Never smoker Past Alcohol Use History: None Reported Past Drug Use History: None Reported - Past Family History Mother History Unknown: Yes Family Medical History: COPD Additional Family Medical History / Comment(s): Mother from COPD at the age of 55 yrs. Brother(s) Family Medical History: Diabetes Mellitus Father Family Medical History: Unable to Obtain General Exam General appearance: alert, in no apparent distress Head exam: Present: atraumatic, normocephalic, normal inspection Eye exam: Present: normal appearance, PERRL, EOMI. Absent: scleral icterus, conjunctival injection, periorbital swelling ENT exam: Present: normal exam, mucous membranes moist Neck exam: Present: normal inspection. Absent: tenderness, meningismus, lymphadenopathy Respiratory exam: Present: normal lung sounds bilaterally. Absent: respiratory distress, wheezes, rales, rhonchi, stridor Cardiovascular Exam: Present: regular rate, normal rhythm, normal heart sounds. Absent: systolic murmur, diastolic murmur, rubs, gallop, clicks GI/Abdominal exam: Present: soft, tenderness (midline. superior to umbilicus. over an area off focal induration. no overlying skin changes), normal bowel s ounds. Absent: distended, guarding, rebound, rigid Extremities exam: Present: normal inspection, full ROM, normal capillary refill. Absent: tenderness, pedal edema, joint swelling, calf tenderness Back exam: Present: normal inspection Neurological exam: Present: alert, oriented X3, CN II-XII intact Psychiatric exam: Present: normal affect, normal mood Skin exam: Present: warm, dry, intact, normal color. Absent: rash Course Vital Signs 07/17/22 07/18/22 22:29 03:40 Temperature 98.4 F Pulse Rate 92 78 Respiratory 18 16 Rate Blood Pressure 121/85 118/78 O2 Sat by Pulse 100 98 Oximetry Medical Decision Making - Medical Decision Making Was pt. sent in by a medical professional or institution (SOILA Carrera, SECTION[employer]T MOLD ASSEMBLER, urgent care, hospital, or correction...) When possible be specific @ -No Did you speak to anyone other than the patient for history (EMS, parent, family, police, friend...)? What history was obtained from this source @ -No Did you review nursing and triage notes (agree or disagree)? Why? @ -I reviewed and agree with nursing and triage notes Were old charts reviewed (outside hosp., previous admission, EMS record, old EKG, old radiological studies, urgent care reports/EKG's, correction records)? Report findings @ -I reviewed patients surgical report as she is reporting to post op pain Differential Diagnosis (chest pain, altered mental status, abdominal pain women, abdominal pain men, vaginal bleeding, weakness, fever, dyspnea, syncope, headache, dizziness, GI bleed, back pain, seizure, CVA, palpatations, mental health, musculoskeletal)? @ -SBO, incarcerated hernia, strangulated hernia EKG interpreted by me (3pts min.). @ -Not done X-rays interpreted by me (1pt min.). @ -None done CT interpreted by me (1pt min.). @ -Yes U/S interpreted by me (1pt. min.). @ -None done What testing was considered but not performed or refused? (CT, X-rays, U/S, labs)? Why? @ -None What meds were considered but not given or refused? Why? @ -None Did you discuss the management of the patient with other professionals (professionals i.e. SOILA Carrera, SECTION[employer]T MOLD ASSEMBLER, lab, RT, psych nurse, web content & social media manager, acds block 1 operator, teacher, traffic maintenance officer, case technician)? Give summary @ -No Was smoking cessation discussed for >3mins.? @ -No Was critical care preformed (if so, how long)? @ -No Were there social determinants of health that impacted care today? How? (Homelessness, low income, unemployed, alcoholism, drug addiction, transportation, low edu. Level, literacy, decrease access to med. care, assisted, rehab)? @ -No Was there de-escalation of care discussed even if they declined (Discuss DNR or withdrawal of care, Hospice)? DNR status @ -No What co-morbidities impacted this encounter? (DM, HTN, Smoking, COPD, CAD, Cancer, CVA, ARF, Chemo, Hep., AIDS, mental health diagnosis, sleep apnea, morbid obesity)? @ -Chronic abd pain Was patient admitted / discharged? Hospital course, mention meds given and route, prescriptions, significant lab abnormalities, going to OR and other pertinent info. @ -Upon arrival patient is placed into room 15. A thorough history and physical exam was performed. Laboratory studies are conducted. Did discuss CT imaging with the patient for which she was agreeable and is aware of the risks of radiation exposure. Laboratory studies are reviewed and are within normal limits. CT performed which demonstrates no acute process. Results are discussed the patient. She does have alleviation in her pain and nausea with pain and nausea medications. She'll be discharged home at this time. She is in a pain contract and therefore medications will not be prescribed at this time. Instructed to follow-up with her surgeon and return for any new or worsening symptoms. Patient agreeable and she was discharged in stable condition Undiagnosed new problem with uncertain prognosis? @ -Yes Drug Therapy requiring intensive monitoring for toxicity (Heparin, Nitro, Insulin, Cardizem)? @ -No Were any procedures done? @ -No Diagnosis/symptom? @ -acute on chronic abd pain Acute, or Chronic, or Acute on Chronic? @ -acute on chronic Uncomplicated (without systemic symptoms) or Complicated (systemic symptoms)? @ -complicated Side effects of treatment? @ -No Exacerbation, Progression, or Severe Exacerbation? @ -yes Poses a threat to life or bodily function? How? (Chest pain, [place], [place], pneumonia, PE, COPD, DKA, ARF, appy, cholecystitis, CVA, Diverticulitis, Homicidal, Suicidal, threat to staff... and all critical care pts) @ -Yes - Lab Data Result diagrams: 07/18/22 00:40 07/18/22 00:40 Lab Results 07/18/22 07/18/22 07/18/22 Range/Units 00:40 00:40 00:40 WBC 11.1 H (3.8-10.6) k/uL RBC 4.64 (3.80-5.40) m/uL Hgb 13.3 (11.4-16.0) gm/dL Hct 42.3 (34.0-46.0) % MCV 91.1 (80.0-100.0) fL MCH 28.7 (25.0-35.0) pg MCHC 31.5 (31.0-37.0) g/dL RDW 14.2 (11.5-15.5) % Plt Count 320 (150-450) k/uL MPV 6.9 Neutrophils % 72 % Lymphocytes % 20 % Monocytes % 4 % Eosinophils % 3 % Basophils % 1 % Neutrophils # 7.9 H (1.3-7.7) k/uL Lymphocytes # 2.2 (1.0-4.8) k/uL Monocytes # 0.4 (0-1.0) k/uL Eosinophils # 0.3 (0-0.7) k/uL Basophils # 0.1 (0-0.2) k/uL Sodium 140 (137-145) mmol/L Potassium 3.7 (3.5-5.1) mmol/L Chloride 107 (98-107) mmol/L Carbon Dioxide 28 (22-30) mmol/L Anion Gap 5 mmol/L BUN 12 (7-17) mg/dL Creatinine 0.61 (0.52-1.04) mg/dL Est GFR (CKD-EPI)AfAm >90 (>60 ml/min/1.73 sqM) Est GFR (CKD-EPI)NonAf >90 (>60 ml/min/1.73 sqM) Glucose 121 H (74-99) mg/dL Plasma Lactic Acid Yobani 1.9 (0.7-2.0) mmol/L Calcium 8.9 (8.4-10.2) mg/dL Total Bilirubin 0.3 (0.2-1.3) mg/dL AST 32 (14-36) U/L ALT 48 H (4-34) U/L Alkaline Phosphatase 105 (38-126) U/L Total Protein 6.6 (6.3-8.2) g/dL Albumin 3.9 (3.5-5.0) g/dL Lipase 191 (23-300) U/L Disposition Clinical Impression: Postoperative pain, Postoperative seroma Disposition: HOME SELF-CARE Condition: Stable Instructions (If sedation given, give patient instructions): Acute Abdominal Pain (ED) Additional Instructions: Please follow-up with your surgeon and return for any new or worsening symptoms Is patient prescribed a controlled substance at d/c from ED?: No Referrals: Edgardo Inman MD [Primary Care Provider] - 1-2 days Time of Disposition: 02:39
[2022-07-18 03:41] VITALS: BP 118/78; PULSE 78; RESP 16
== END 2022-07-18 03:57 | disposition home or self-care (01) ==
LOC: EC 22:21
DX: G89.18 Other acute postprocedural pain (principal); L76.34 Postprocedural seroma of skin and subcutaneous tissue following other procedure; J45.909 Unspecified asthma, uncomplicated; E11.9 Type 2 diabetes mellitus without complications; K21.9 Gastro-esophageal reflux disease without esophagitis; E07.9 Disorder of thyroid, unspecified; F41.9 Anxiety disorder, unspecified; F31.9 Bipolar disorder, unspecified; Z88.5 Allergy status to narcotic agent; Z88.8 Allergy status to other drugs, medicaments and biological substances; Z90.49 Acquired absence of other specified parts of digestive tract; Z79.890 Hormone replacement therapy; Z79.899 Other long term (current) drug therapy
CPT/HCPCS: 36415; 80053; 83605; 83690; 85025; 74177; 99284; 96374; 96375; 96361; J2405; J1170; Q9967

== ENCOUNTER → 2022-07-17 | Outpatient (CLI) | payer OTHER ==
[2022-07-17 13:53] VITALS: BP 137/85; PULSE 93; TEMP 98.1; BMI 39.6
--- NOTE | 2022-08-01 10:55 | P.HPBAR ---
Bariatric H&P - History & Physicial H&P Date: 07/24/22 History & Physicial: Visit/CC: lysis of adhesions F/U Patient initial contact: Initial weight: 312 kg Initial weight in pounds: 687.84 Height: 5 ft 7 in Initial BMI: 107.7 Last weight: Current weight: 114.759 kg Current weight in pounds: 253.00 Current BMI: 39.6 [place] body weight (based on NIH guidelines): 61.235 kg Excess body weight loss: 78.6% The patient is a 37 year-old F who presents for Bariatric Assessment. Patient resents today for bariatric follow-up. Patient underwent recent laparoscopic lysis of adhesions. She is minimal issues with GERD and dysphagia. Patient is still morbidly obese. Her BMI is 40. Past Medical History Past Medical History: Asthma, Diabetes Mellitus, Fibromyalgia, GERD/Reflux, Sleep Apnea/CPAP/BIPAP, Thyroid Disorder Additional Past Medical History / Comment(s): Migraines with aura, DDD, NIDDM type II, diverticulitis with perforation/colostomy since reversed, IBS, chronic seroma, CARLITOS/no device, polycystic ovaries, hypothyroid, season allergies History of Any Multi-Drug Resistant Organisms: None Reported Past Surgical History: Bariatric Surgery, Bowel Resection, Breast Surgery, Cholecystectomy, Hernia Repair, Tubal Ligation, Uterine Ablation Additional Past Surgical History / Comment(s): 06/06/21 sleeve gastrectomy, rt Breast biopsy. bowel resection with colostomy/ later colostomy reversal, abdominal surgery to remove scar tissue, EGD, colonoscopy, back pain procedures uterine ablation, lysis of adhesions 07/11/22 Past Anesthesia/Blood Transfusion Reactions: No Reported Reaction Additional Past Anesthesia/Blood Transfusion Reaction / Comm: no hx blood transfusion, received monoclonal antibodies in Feb 2021 Past Psychological History: Anxiety, Bipolar, Depression Additional Psychological History / Comment(s): Pt has eating disorder-binge eater, borderline personality disorder. Pt resides with her boyfriend and his mother. She is independent. Smoking Status: Never smoker Past Alcohol Use History: None Reported Past Drug Use History: None Reported - Past Family History Mother History Unknown: Yes Family Medical History: COPD Additional Family Medical History / Comment(s): Mother from COPD at the age of 55 yrs. Brother(s) Family Medical History: Diabetes Mellitus Father Family Medical History: Unable to Obtain Surgical - Exam Vital Signs Temp Pulse BP 98.1 F 93 137/85 07/17/22 13:48 07/17/22 13:48 07/17/22 13:48 - General well developed, well nourished, no distress - Eyes PERRL - ENT normal pinna - Neck no masses - Respiratory normal expansion - Cardiovascular Rhythm: regular - Abdomen Abdomen: soft Bariatric Assessment & Plan Plan: Morbid obesity. Patient will follow-up in 4 weeks. Bariatric Checklist Checklist: Plan: Checklist: EGD: 1. Hiatal hernia: 2. H. Pylori: HgbA1c: Vitamin D: Smoking: Never smoker Primary care physician referral: Dr. Alaniz Psychiatry clearance: Cardiology clearance: Sleep study: Diet journal: VTE risk score: VTE risk level: Rehab needs at discharge:
== END ==
LOC: BARWHC3 13:23
PROVIDERS: ATTEND Surgery
DX: E66.01 Morbid (severe) obesity due to excess calories (principal); J45.909 Unspecified asthma, uncomplicated; E11.9 Type 2 diabetes mellitus without complications; M79.7 Fibromyalgia; K21.9 Gastro-esophageal reflux disease without esophagitis; Z68.41 Body mass index [BMI] 40.0-44.9, adult; G47.33 Obstructive sleep apnea (adult) (pediatric); E03.9 Hypothyroidism, unspecified; Z88.5 Allergy status to narcotic agent; Z79.899 Other long term (current) drug therapy
CPT/HCPCS: 99211

== ENCOUNTER 2022-07-25 22:19 | Emergency (ER) | payer OTHER ==
[2022-07-25 23:06] VITALS: RESP 18; TEMP 98.1
[2022-07-26] MEDS ORDERED: SODIUM CHLORIDE 0.9% 1,000 ML IV STA (01:36)
[2022-07-26] MEDS ORDERED: METOCLOPRAMIDE 5 MG/ML 2 ML VIAL IVP STA (01:36)
[2022-07-26] MEDS ORDERED: KETOROLAC 15 MG/ML 1 ML VIAL IVP STA (01:36)
[2022-07-26] MEDS ORDERED: DEXAMETHASONE SOD PHOSPHATE 10 MG/ML 1 ML VIAL IVP STA (01:36)
[2022-07-26] MEDS ORDERED: diphenhydrAMINE 50 MG/ML 1 ML VIAL IVP STA (01:36)
--- NOTE | 2022-07-26 02:02 | ED ---
Headache HPI - General Chief Complaint: Headache Stated Complaint: Headache,Pressure right sided Time Seen by Provider: 07/26/22 01:29 Mode of arrival: ambulatory Limitations: no limitations - History of Present Illness Initial Comments: This is a 37-year-old female who presents to the emergency department for a migraine. Patient is very well known to this emergency department for migraines. States that this started around 5 PM last evening and around 9 PM she started to develop the stuttering. She took Excedrin Migraine with no relief. States that she and her doctors are trying to come up with a new abortive medication that will work better for her. She has associated photophobia. Denies any nausea or vomiting. Denies any fevers, chills, sore throat, cough, dyspnea, chest pain, palpitations, abdominal pain, nausea, vomiting, diarrhea, or back pain. MD Complaint: headache, "migraine" - Related Data Home Medications Medication Instructions Recorded Confirmed Levothyroxine Sodium [Synthroid] 50 mcg PO DAILY 05/05/14 07/17/22 Cetirizine HCl [Zyrtec] 10 mg PO DAILY 08/30/19 07/17/22 Pregabalin [Lyrica] 150 mg PO BID 08/30/19 07/17/22 ARIPiprazole [Abilify] 2 mg PO HS 09/14/20 07/17/22 Venlafaxine HCl [Effexor XR] 225 mg PO HS 09/14/20 07/17/22 Erenumab-Aooe [Aimovig 140 mg SQ Q30D 09/22/20 07/17/22 Autoinjector] HYDROcodone/APAP 7.5-325MG [[place] 1 tab PO BID PRN 08/23/21 07/17/22 7.5-325] Atogepant [Qulipta] 60 mg PO HS 11/28/21 07/17/22 Lzfxpivvpwlxih-DE-Mspeyrrtcs 1 tab PO DAILY 12/12/21 07/17/22 [Folbic] Ferrous Sulfate [Iron (65 MG 325 mg PO DAILY 12/12/21 07/17/22 Elemental)] Nystatin 100,000 Unit/gm Powd 1 applic TOPICAL BID PRN 12/12/21 07/17/22 [Mycostatin Powder] Nystatin/Triamcin 1 applic TOPICAL BID PRN 12/12/21 07/17/22 [Nystatin-Triamcinolone Cream] Cyclobenzaprine [Flexeril] 10 mg PO DAILY PRN 01/06/22 07/17/22 Butalb/Acetaminophen/Caffeine 1 tab PO Q6H PRN 05/19/22 07/17/22 [Fioricet 50-325-40] Ergocalciferol (Vitamin D2) 1,250 mcg PO Q7D 05/19/22 07/17/22 [Drisdol (50,000 Iu)] Fluconazole 200 mg PO GARCIA 05/19/22 07/17/22 rOPINIRole HCL [Requip] 3 mg PO HS 05/19/22 07/17/22 Semaglutide [Wegovy] 0.25 mg SQ Q7D 07/05/22 07/17/22 Previous Rx's Medication Instructions Recorded Metoclopramide [Reglan] 10 mg PO TID PRN #15 tab 04/19/22 Acetaminophen Tab [Tylenol] 650 mg PO Q6H #30 tab 07/11/22 Docusate [Colace] 100 mg PO BID #20 capsule 07/11/22 Ibuprofen [Motrin] 600 mg PO Q6HR PRN #40 tab 07/11/22 oxyCODONE HCL [OxyIR] 5 mg PO Q6H PRN 3 Days #10 tab 07/11/22 Allergies Allergy/AdvReac Type Severity Reaction Status Date / Time codeine AdvReac Hallucinati Verified 07/17/22 22:32 ons tramadol AdvReac Hallucinati Verified 07/17/22 22:32 ons valacyclovir HCl AdvReac BLURRED Verified 07/17/22 22:32 [From Valtrex] VISION Review of Systems ROS Statement: Those systems with pertinent positive or pertinent negative responses have been documented in the HPI. ROS Other: All systems not noted in ROS Statement are negative. Past Medical History Past Medical History: Asthma, Diabetes Mellitus, Fibromyalgia, GERD/Reflux, Sleep Apnea/CPAP/BIPAP, Thyroid Disorder Additional Past Medical History / Comment(s): Migraines with aura, DDD, NIDDM type II, diverticulitis with perforation/colostomy since reversed, IBS, chronic seroma, CARLITOS/no device, polycystic ovaries, hypothyroid, season allergies History of Any Multi-Drug Resistant Organisms: None Reported Past Surgical History: Bariatric Surgery, Bowel Resection, Breast Surgery, Cholecystectomy, Hernia Repair, Tubal Ligation, Uterine Ablation Additional Past Surgical History / Comment(s): 06/06/21 sleeve gastrectomy, rt Breast biopsy. bowel resection with colostomy/ later colostomy reversal, abdominal surgery to remove scar tissue, EGD, colonoscopy, back pain procedures uterine ablation, lysis of adhesions 07/11/22 Past Anesthesia/Blood Transfusion Reactions: No Reported Reaction Additional Past Anesthesia/Blood Transfusion Reaction / Comment(s): no hx blood transfusion, received monoclonal antibodies in Feb 2021 Past Psychological History: Anxiety, Bipolar, Depression Smoking Status: Never smoker Past Alcohol Use History: None Reported Past Drug Use History: None Reported - Past Family History Mother History Unknown: Yes Family Medical History: COPD Additional Family Medical History / Comment(s): Mother from COPD at the age of 55 yrs. Brother(s) Family Medical History: Diabetes Mellitus Father Family Medical History: Unable to Obtain General Exam Limitations: no limitations General appearance: alert, in no apparent distress Head exam: Present: atraumatic, normocephalic, normal inspection Eye exam: Present: normal appearance, PERRL, EOMI. Absent: scleral icterus, conjunctival injection, periorbital swelling Respiratory exam: Present: normal lung sounds bilaterally. Absent: respiratory distress, wheezes, rales, rhonchi, stridor Cardiovascular Exam: Present: regular rate, normal rhythm, normal heart sounds. Absent: systolic murmur, diastolic murmur, rubs, gallop, clicks Neurological exam: Present: alert, oriented X3, CN II-XII intact Psychiatric exam: Present: normal affect, normal mood Skin exam: Present: warm, dry, intact, normal color. Absent: rash Course Vital Signs 07/25/22 07/26/22 07/26/22 23:01 02:20 02:30 Temperature 98.1 F Pulse Rate 77 Respiratory 18 Rate Blood Pressure 134/89 117/74 117/74 O2 Sat by Pulse 98 100 100 Oximetry 07/26/22 07/26/22 07/26/22 02:40 02:50 03:00 Temperature Pulse Rate Respiratory Rate Blood Pressure 117/74 117/74 117/74 O2 Sat by Pulse 99 100 98 Oximetry 07/26/22 07/26/22 07/26/22 03:10 03:20 03:30 Temperature Pulse Rate 79 Respiratory 18 Rate Blood Pressure 113/72 113/72 113/80 O2 Sat by Pulse 96 97 95 Oximetry 07/26/22 07/26/22 03:40 04:08 Temperature Pulse Rate 78 Respiratory 18 Rate Blood Pressure 113/80 113/63 O2 Sat by Pulse 90 L 94 L Oximetry Medical Decision Making - Medical Decision Making This is a 37-year-old female who presents to the emergency department for a migraine. Was pt. sent in by a medical professional or institution? @ -No Did you speak to anyone other than the patient for history? @ -No Did you review nursing and triage notes? @ -Yes, and I agree, it is accurate with regards to the patient's symptoms. Were old charts reviewed? @ -No Differential Diagnosis? @ -Differential Headache: Migraine, tension, cluster, carbon monoxide, central venous thrombosis, pension karma temporal arteritis, acute closure glaucoma, intercranial hemorrhage, mastoiditis, sinusitis, head injury, this is not meant to be an all-inclusive l ist. What testing was considered but not performed? (CT, X-rays, U/S, labs)? Why? @ -None What meds were considered but not given? Why? @ -None Did you discuss the management of the patient with other professionals? @ -No Did you reconcile home meds? @ -No Was smoking cessation discussed for >3mins.? @ -No Was critical care preformed (if so, how long)? @ -No Were there social determinants of health that impacted care today? How? (Homelessness, low income, unemployed, alcoholism, drug addiction, transportation, low edu. Level, literacy, decrease access to med. care, usp, rehab)? @ -No Was there de-escalation of care discussed even if they declined? (Discuss DNR or withdrawal of care, Hospice)? @ -No What co-morbidities impacted this encounter? (DM, HTN, Smoking, COPD, CAD, Cancer, CVA, Hep., AIDS, mental health diagnosis, sleep apnea, morbid obesity)? @ -Migraines Was patient admitted / discharged? @ -Discharged. Lab work obtained and found to be nonactionable. Patient given a migraine cocktail consisting of Decadron, Toradol, Benadryl, and Reglan. Fluid bolus of normal saline administered as well. Symptoms well controlled in the emergency department and the patient was discharged home in stable c ondition. Advised ibuprofen and Tylenol as needed for pain relief and following up with her primary care provider for reevaluation of symptoms. Undiagnosed new problem with uncertain prognosis? @ -None Drug Therapy requiring intensive monitoring for toxicity (Heparin, Nitro, Insulin, Cardizem)? @ -None Were any procedures done? @ -None Diagnosis/symptom? @ -Migraine Acute, or Chronic, or Acute on Chronic? @ -Acute on chronic Uncomplicated (without systemic symptoms) or Complicated (systemic symptoms)? @ -Uncomplicated Side effects of treatment? @ -None Exacerbation, Progression, or Severe Exacerbation] @ -Exacerbation Poses a threat to life or bodily function? @ -No Return precautions reviewed in depth, the patient is instructed to return to the emergency department with any new, worsening, or concerning symptoms. Patient verbalized understanding. This case was discussed in detail with the attending ED physician, Dr. Putnam. Presentation, findings, and treatment plan discussed in detail as well. - Lab Data Result diagrams: 07/26/22 02:07 07/26/22 02:07 Lab Results 07/26/22 07/26/22 Range/Units 02:07 02:07 WBC 8.8 (3.8-10.6) k/uL RBC 4.67 (3.80-5.40) m/uL Hgb 13.4 (11.4-16.0) gm/dL Hct 42.3 (34.0-46.0) % MCV 90.5 (80.0-100.0) fL MCH 28.7 (25.0-35.0) pg MCHC 31.7 (31.0-37.0) g/dL RDW 14.1 (11.5-15.5) % Plt Count 288 (150-450) k/uL MPV 7.5 Neutrophils % 64 % Lymphocytes % 27 % Monocytes % 5 % Eosinophils % 2 % Basophils % 1 % Neutrophils # 5.7 (1.3-7.7) k/uL Lymphocytes # 2.4 (1.0-4.8) k/uL Monocytes # 0.4 (0-1.0) k/uL Eosinophils # 0.1 (0-0.7) k/uL Basophils # 0.1 (0-0.2) k/uL Sodium 140 (137-145) mmol/L Potassium 4.4 (3.5-5.1) mmol/L Chloride 105 (98-107) mmol/L Carbon Dioxide 29 (22-30) mmol/L Anion Gap 6 mmol/L BUN 15 (7-17) mg/dL Creatinine 0.69 (0.52-1.04) mg/dL Est GFR (CKD-EPI)AfAm >90 (>60 ml/min/1.73 sqM) Est GFR (CKD-EPI)NonAf >90 (>60 ml/min/1.73 sqM) Glucose 92 (74-99) mg/dL Calcium 9.3 (8.4-10.2) mg/dL Total Bilirubin 0.5 (0.2-1.3) mg/dL AST 29 (14-36) U/L ALT 35 H (4-34) U/L Alkaline Phosphatase 92 (38-126) U/L Total Protein 7.0 (6.3-8.2) g/dL Albumin 4.1 (3.5-5.0) g/dL Disposition Clinical Impression: Migraine Disposition: HOME SELF-CARE Instructions (If sedation given, give patient instructions): Migraine Headache (ED) Additional Instructions: Return to the emergency department with any new, worsening, or concerning symptoms. Alternate with ibuprofen and Tylenol as needed for pain relief. Follow up with your primary care provider in 1-2 days. Is patient prescribed a controlled substance at d/c from ED?: No Referrals: Edgardo Inman MD [Primary Care Provider] - 1-2 days
[2022-07-26 02:58] LABS: Basophils # (A) 0.1 k/uL (0-0.2); Basophils % (A) 1 %; Eosinophils # (A) 0.1 k/uL (0-0.7); Eosinophils % (A) 2 %; HCT 42.3 % (34.0-46.0); HGB 13.4 gm/dL (11.4-16.0); Lymphocytes # (A) 2.4 k/uL (1.0-4.8); Lymphocytes % (A) 27 %; MCH 28.7 pg (25.0-35.0); MCHC 31.7 g/dL (31.0-37.0); MCV 90.5 fL (80.0-100.0); Mean Platelet Volume 7.5; Monocytes # (A) 0.4 k/uL (0-1.0); Monocytes % (A) 5 %; Neutrophils # (A) 5.7 k/uL (1.3-7.7); Neutrophils % (A) 64 %; Platelet Count 288 k/uL (150-450); RBC 4.67 m/uL (3.80-5.40); RDW 14.1 % (11.5-15.5); WBC 8.8 k/uL (3.8-10.6)
[2022-07-26 03:00] LABS: ALT 35 U/L (4-34); AST 29 U/L (14-36); African American GFR (CKD) >90 (>60 ml/min/1.73 sqM); Albumin 4.1 g/dL (3.5-5.0); Alkaline Phosphatase 92 U/L (38-126); Anion Gap 6 mmol/L; Blood Urea Nitrogen 15 mg/dL (7-17); Calcium 9.3 mg/dL (8.4-10.2); Carbon Dioxide 29 mmol/L (22-30); Chloride 105 mmol/L (98-107); Glucose 92 mg/dL (74-99); Non-African American GFR(CKD) >90 (>60 ml/min/1.73 sqM); Potassium 4.4 mmol/L (3.5-5.1); Sodium 140 mmol/L (137-145); Total Bilirubin 0.5 mg/dL (0.2-1.3)
[2022-07-26] MEDS ORDERED: HYDROmorphone 1 MG/ML 1 ML SYRINGE IVP STA (03:19)
[2022-07-26] MEDS ORDERED: HALOPERIDOL LACTATE 5 MG/ML 1 ML VIAL IVP ONE (03:19)
[2022-07-26 04:08] VITALS: BP 113/63; PULSE 78
== END 2022-07-26 04:15 | disposition home or self-care (01) ==
LOC: EC 22:19
DX: G43.909 Migraine, unspecified, not intractable, without status migrainosus (principal); J45.909 Unspecified asthma, uncomplicated; E11.9 Type 2 diabetes mellitus without complications; E07.9 Disorder of thyroid, unspecified; F41.9 Anxiety disorder, unspecified; F31.9 Bipolar disorder, unspecified; Z88.5 Allergy status to narcotic agent; Z88.6 Allergy status to analgesic agent; Z88.8 Allergy status to other drugs, medicaments and biological substances; Z79.890 Hormone replacement therapy; Z79.899 Other long term (current) drug therapy
CPT/HCPCS: 36415; 80053; 85025; 99283; 96374; 96375 ×4; 96361; J1200; J1630; J1100; J2765; J1170; J1885

== ENCOUNTER 2022-08-03 17:31 | Emergency (ER) | payer OTHER ==
[2022-08-03 17:37] VITALS: RESP 16; TEMP 98.7
[2022-08-03] MEDS ORDERED: ONDANSETRON 4 MG/2 ML VIAL IVP STA (17:48)
[2022-08-03] MEDS ORDERED: SODIUM CHLORIDE 0.9% 1,000 ML IV STA (17:48)
[2022-08-03] MEDS ORDERED: HYDROmorphone 1 MG/ML 1 ML SYRINGE IVP STA (17:49)
[2022-08-03] MEDS ORDERED: FAMOTIDINE 20 MG/2 ML VIAL IV STA (17:49)
--- NOTE | 2022-08-03 17:51 | ED ---
General Adult HPI - General Chief complaint: Abdominal Pain Stated complaint: Abdominal pain Time Seen by Provider: 08/03/22 17:40 Source: patient, RN notes reviewed Mode of arrival: ambulatory Limitations: no limitations - History of Present Illness Initial comments: Patient is a pleasant 37-year-old female presents emergency department with concerns for abdominal pain. Onset of symptoms was yesterday after dinner. Patient has discomfort in her abdomen and mildly in her back. Patient has been having nausea with some vomiting. Patient has mild headache. Patient also states her blood sugar has been running between 150-250. Patient still has n ausea. No diarrhea. - Related Data Home Medications Medication Instructions Recorded Confirmed Levothyroxine Sodium [Synthroid] 50 mcg PO DAILY 05/05/14 07/17/22 Cetirizine HCl [Zyrtec] 10 mg PO DAILY 08/30/19 07/17/22 Pregabalin [Lyrica] 150 mg PO BID 08/30/19 07/17/22 ARIPiprazole [Abilify] 2 mg PO HS 09/14/20 07/17/22 Venlafaxine HCl [Effexor XR] 225 mg PO HS 09/14/20 07/17/22 Erenumab-Aooe [Aimovig 140 mg SQ Q30D 09/22/20 07/17/22 Autoinjector] HYDROcodone/APAP 7.5-325MG [[place] 1 tab PO BID PRN 08/23/21 07/17/22 7.5-325] Atogepant [Qulipta] 60 mg PO HS 11/28/21 07/17/22 Wovetjcsfuzgyo-TJ-Cqbugvdkiu 1 tab PO DAILY 12/12/21 07/17/22 [Folbic] Ferrous Sulfate [Iron (65 MG 325 mg PO DAILY 12/12/21 07/17/22 Elemental)] Nystatin 100,000 Unit/gm Powd 1 applic TOPICAL BID PRN 12/12/21 07/17/22 [Mycostatin Powder] Nystatin/Triamcin 1 applic TOPICAL BID PRN 12/12/21 07/17/22 [Nystatin-Triamcinolone Cream] Cyclobenzaprine [Flexeril] 10 mg PO DAILY PRN 01/06/22 07/17/22 Butalb/Acetaminophen/Caffeine 1 tab PO Q6H PRN 05/19/22 07/17/22 [Fioricet 50-325-40] Ergocalciferol (Vitamin D2) 1,250 mcg PO Q7D 05/19/22 07/17/22 [Drisdol (50,000 Iu)] Fluconazole 200 mg PO GARCIA 05/19/22 07/17/22 rOPINIRole HCL [Requip] 3 mg PO HS 05/19/22 07/17/22 Semaglutide [Wegovy] 0.25 mg SQ Q7D 07/05/22 07/17/22 Previous Rx's Medication Instructions Recorded Metoclopramide [Reglan] 10 mg PO TID PRN #15 tab 04/19/22 Acetaminophen Tab [Tylenol] 650 mg PO Q6H #30 tab 07/11/22 Docusate [Colace] 100 mg PO BID #20 capsule 07/11/22 Ibuprofen [Motrin] 600 mg PO Q6HR PRN #40 tab 07/11/22 oxyCODONE HCL [OxyIR] 5 mg PO Q6H PRN 3 Days #10 tab 07/11/22 Allergies Allergy/AdvReac Type Severity Reaction Status Date / Time codeine AdvReac Hallucinati Verified 07/17/22 22:32 ons tramadol AdvReac Hallucinati Verified 07/17/22 22:32 ons valacyclovir HCl AdvReac BLURRED Verified 07/17/22 22:32 [From Valtrex] VISION Review of Systems ROS Statement: Those systems with pertinent positive or pertinent negative responses have been documented in the HPI. ROS Other: All systems not noted in ROS Statement are negative. Constitutional: Denies: fever Eyes: Denies: eye pain ENT: Denies: ear pain Respiratory: Denies: cough Cardiovascular: Denies: chest pain Endocrine: Denies: fatigue Gastrointestinal: Reports: as per HPI, abdominal pain, nausea, vomiting Genitourinary: Denies: dysuria Skin: Denies: rash Past Medical History Past Medical History: Asthma, Diabetes Mellitus, Fibromyalgia, GERD/Reflux, Sleep Apnea/CPAP/BIPAP, Thyroid Disorder Additional Past Medical History / Comment(s): Migraines with aura, DDD, NIDDM type II, diverticulitis with perforation/colostomy since reversed, IBS, chronic seroma, CARLITOS/no device, polycystic ovaries, hypothyroid, season allergies History of Any Multi-Drug Resistant Organisms: None Reported Past Surgical History: Cholecystectomy Additional Past Surgical History / Comment(s): 06/06/21 sleeve gastrectomy, rt Breast biopsy. bowel resection with colostomy/ later colostomy reversal, abdominal surgery to remove scar tissue, EGD, colonoscopy, back pain procedures uterine ablation, lysis of adhesions 07/11/22 Past Anesthesia/Blood Transfusion Reactions: No Reported Reaction Additional Past Anesthesia/Blood Transfusion Reaction / Comment(s): no hx blood transfusion, received monoclonal antibodies in Feb 2021 Past Psychological History: Anxiety, Bipolar, Depression Smoking Status: Never smoker Past Alcohol Use History: None Reported Past Drug Use History: None Reported - Past Family History Mother History Unknown: Yes Family Medical History: COPD Additional Family Medical History / Comment(s): Mother from COPD at the age of 55 yrs. Brother(s) Family Medical History: Diabetes Mellitus Father Family Medical History: Unable to Obtain General Exam Limitations: no limitations General appearance: alert, in no apparent distress Head exam: Present: normocephalic Eye exam: Present: normal appearance, PERRL, EOMI ENT exam: Present: normal oropharynx Neck exam: Present: normal inspection. Absent: tenderness, meningismus Respiratory exam: Present: normal lung sounds bilaterally Cardiovascular Exam: Present: regular rate, normal rhythm Expanded Peripheral pulses: 2+: Dorsalis Pedis (R), Dorsalis Pedis (L) GI/Abdominal exam: Present: soft, tenderness (Mild diffuse tenderness to palpation), normal bowel sounds. Absent: distended, guarding, rebound, rigid, pulsatile mass Extremities exam: Present: normal inspection Back exam: Present: normal inspection. Absent: tenderness Neurological exam: Present: alert Psychiatric exam: Present: normal affect, normal mood Skin exam: Present: normal color Course Vital Signs 08/03/22 17:32 Temperature 98.7 F Pulse Rate 93 Respiratory 16 Rate Blood Pressure 149/93 O2 Sat by Pulse 99 Oximetry Medical Decision Making - Medical Decision Making Was pt. sent in by a medical professional or institution (, PA, LUDLOW MACHINE OPERATOR, urgent care, hospital, or [facility]...) When possible be specific @ -No Did you speak to anyone other than the patient for history (EMS, parent, family, police, friend...)? What history was obtained from this source @ -No Did you review nursing and triage notes (agree or disagree)? Why? @ -I reviewed and agree with nursing and triage notes Were old charts reviewed (outside hosp., previous admission, EMS record, old EKG, old radiological studies, urgent care reports/EKG's, [facility] records)? Report findings @ -Multiple previous visits reviewed Differential Diagnosis (chest pain, altered mental status, abdominal pain women, abdominal pain men, vaginal bleeding, weakness, fever, dyspnea, syncope, headache, dizziness, GI bleed, back pain, seizure, CVA, palpatations, mental health)? @ -not applicable EKG interpreted by me (3pts min.). @ -As above X-rays interpreted by me (1pt min.). @ -None done CT interpreted by me (1pt min.). @ -None done U/S interpreted by me (1pt. min.). @ -None done What testing was considered but not performed or refused? (CT, X-rays, U/S, labs)? Why? @ -None What meds were considered but not given or refused? Why? @ -None Did you discuss the management of the patient with other professionals (professionals i.e. , PA, LUDLOW MACHINE OPERATOR, lab, RT, psych nurse, clinical social worker, livestock farm workers, teacher, public safety officer, family independence case manager)? Give summary @ -Case was discussed with Dr. Meadows who is familiar with this patient and feel she can be discharged Was smoking cessation discussed for >3mins.? @ -No Was critical care preformed (if so, how long)? @ -No Were there social determinants of health that impacted care today? How? (Homelessness, low income, unemployed, alcoholism, drug addiction, transportation, low edu. Level, literacy, decrease access to med. care, [facility], rehab)? @ -No Was there de-escalation of care discussed even if they declined (Discuss DNR or withdrawal of care, Hospice)? DNR status @ -No What co-morbidities impacted this encounter? (DM, HTN, Smoking, COPD, CAD, Cance r, CVA, ARF, Chemo, Hep., AIDS, mental health diagnosis, sleep apnea, morbid obesity)? @ -None Was patient admitted / discharged? Hospital course, mention meds given and route, prescriptions, significant lab abnormalities, going to OR and other pertinent info. @ -Patient reevaluated and still having some symptoms although she has improved. Patient has multiple previous visits including at least 9 this year. Patient updated on results and discussed with Dr. Meadows as well as need for follow-up. Undiagnosed new problem with uncertain prognosis? @ -No Drug Therapy requiring intensive monitoring for toxicity (Heparin, Nitro, Insulin, Cardizem)? @ -No Were any procedures done? @ -No Diagnosis/symptom? @ -Abdominal pain Acute, or Chronic, or Acute on Chronic? @ -Acute on chronic Uncomplicated (without systemic symptoms) or Complicated (systemic symptoms)? @ -default Side effects of treatment? @ -No Exacerbation, Progression, or Severe Exacerbation? @ -No Poses a threat to life or bodily function? How? (Chest pain, [place], [place], pneumonia, PE, COPD, DKA, ARF, appy, cholecystitis, CVA, Diverticulitis, Homicidal, Suicidal, threat to staff... and all critical care pts) @ -No - Lab Data Result diagrams: 08/03/22 18:04 08/03/22 18:04 Lab Results 08/03/22 08/03/22 08/03/22 Range/Units 18:04 18:04 18:04 WBC 9.4 (3.8-10.6) k/uL RBC 4.74 (3.80-5.40) m/uL Hgb 13.6 (11.4-16.0) gm/dL Hct 42.3 (34.0-46.0) % MCV 89.2 (80.0-100.0) fL MCH 28.7 (25.0-35.0) pg MCHC 32.2 (31.0-37.0) g/dL RDW 13.9 (11.5-15.5) % Plt Count 324 (150-450) k/uL MPV 7.3 Neutrophils % 71 % Lymphocytes % 22 % Monocytes % 5 % Eosinophils % 2 % Basophils % 0 % Neutrophils # 6.7 (1.3-7.7) k/uL Lymphocytes # 2.1 (1.0-4.8) k/uL Monocytes # 0.4 (0-1.0) k/uL Eosinophils # 0.2 (0-0.7) k/uL Basophils # 0.0 (0-0.2) k/uL PT 10.2 (9.0-12.0) sec INR 1.0 (<1.2) APTT 25.4 (22.0-30.0) sec Sodium 137 (137-145) mmol/L Potassium 4.0 (3.5-5.1) mmol/L Chloride 103 (98-107) mmol/L Carbon Dioxide 26 (22-30) mmol/L Anion Gap 8 mmol/L BUN 17 (7-17) mg/dL Creatinine 0.63 (0.52-1.04) mg/dL Est GFR (CKD-EPI)AfAm >90 (>60 ml/min/1.73 sqM) Est GFR (CKD-EPI)NonAf >90 (>60 ml/min/1.73 sqM) Glucose 171 H (74-99) mg/dL Calcium 8.8 (8.4-10.2) mg/dL Total Bilirubin 0.3 (0.2-1.3) mg/dL AST 27 (14-36) U/L ALT 32 (4-34) U/L Alkaline Phosphatase 117 (38-126) U/L Total Protein 6.8 (6.3-8.2) g/dL Albumin 4.0 (3.5-5.0) g/dL Amylase 82 (30-110) U/L Lipase 263 (23-300) U/L Disposition Clinical Impression: Abdominal pain Disposition: HOME SELF-CARE Condition: Stable Instructions (If sedation given, give patient instructions): Abdominal Pain (ED) Additional Instructions: please follow-up with your primary care physician and surgeon in the next couple days for recheck. Return for not tolerating fluids, fever, increased pain, worsening symptoms or other concerns. Is patient prescribed a controlled substance at d/c from ED?: No Referrals: Edgardo Inman MD [Primary Care Provider] - 1-2 days Brayan Meadows MD [STAFF PHYSICIAN] - 1-2 days Time of Disposition: 20:03
[2022-08-03 18:25] LABS: Basophils % (A) 0 %; Eosinophils # (A) 0.2 k/uL (0-0.7); Eosinophils % (A) 2 %; HCT 42.3 % (34.0-46.0); HGB 13.6 gm/dL (11.4-16.0); Lymphocytes # (A) 2.1 k/uL (1.0-4.8); Lymphocytes % (A) 22 %; MCH 28.7 pg (25.0-35.0); MCHC 32.2 g/dL (31.0-37.0); MCV 89.2 fL (80.0-100.0); Mean Platelet Volume 7.3; Monocytes # (A) 0.4 k/uL (0-1.0); Monocytes % (A) 5 %; Neutrophils # (A) 6.7 k/uL (1.3-7.7); Neutrophils % (A) 71 %; Platelet Count 324 k/uL (150-450); RBC 4.74 m/uL (3.80-5.40); RDW 13.9 % (11.5-15.5); WBC 9.4 k/uL (3.8-10.6)
[2022-08-03 18:35] LABS: Partial Thromboplastin Time 25.4 sec (22.0-30.0); Prothrombin Time 10.2 sec (9.0-12.0)
[2022-08-03 18:36] LABS: ALT 32 U/L (4-34); AST 27 U/L (14-36); African American GFR (CKD) >90 (>60 ml/min/1.73 sqM); Alkaline Phosphatase 117 U/L (38-126); Amylase 82 U/L (30-110); Anion Gap 8 mmol/L; Blood Urea Nitrogen 17 mg/dL (7-17); Calcium 8.8 mg/dL (8.4-10.2); Carbon Dioxide 26 mmol/L (22-30); Chloride 103 mmol/L (98-107); Glucose 171 mg/dL (74-99); Lipase 263 U/L (23-300); Non-African American GFR(CKD) >90 (>60 ml/min/1.73 sqM); Sodium 137 mmol/L (137-145); Total Bilirubin 0.3 mg/dL (0.2-1.3); Total Protein 6.8 g/dL (6.3-8.2)
--- NOTE | 2022-08-03 19:24 | CT ---
EXAMINATION TYPE: CT abdomen pelvis w con DATE OF EXAM: 08/03/2022 COMPARISON: 07/18/2022 HISTORY: abd pain, nausea, vomiting CT DLP: 2164.8 mGycm Automated exposure control for dose reduction was used. CONTRAST: Performed with IV Contrast, patient injected with 100 mL of Isovue 370. Images obtained from the diaphragm to the floor the pelvis with IV contrast. There is no evidence of infiltrate at the lung bases. Costophrenic angles are clear. No pleural effus ion. Heart size is normal. No pericardial effusion. There is clips from gastric bariatric surgery. Li odalys spleen pancreas appear intact. The bile ducts are not dilated. Gallbladder appears absent. There is no adrenal mass. Kidneys show satisfactory contrast opacification. No hydronephrosis. Delaye d images show normal renal excretion. No retroperitoneal adenopathy. The bladder distends smoothly. N o inguinal hernia. No free fluid in the pelvis. There is IUD in the uterine fundus. Uterus is antever devon. No pelvic mass. There is 2 cm cyst on the left ovary. Appendix is inferior and appears normal. There is some increased density in the subcutaneous fat over the lower anterior abdominal wall consis tent with scarring that measures up to 2.4 cm in thickness. Unchanged. No discrete fluid collection. No mesenteric edema. No ascites or free air. No sign of a bowel obstruction. The lumbar spine is inta ct. No compression fracture. Bony pelvis is intact. The hip joints are intact. IMPRESSION: Subcutaneous scarring adjacent to the anterior abdominal wall without change. No acute abnormality in the abdomen and pelvis. Normal appendix. Bariatric surgery. There is left ovarian cyst which appears new compared to old exam.
[2022-08-03] MEDS ORDERED: METOCLOPRAMIDE 5 MG/ML 2 ML VIAL IVP STA (20:03)
[2022-08-03 20:14] VITALS: BP 115/64; PULSE 85
[2022-08-03 20:22] LABS: Appearance,Urine Clear (Clear); Bacteria,Urine Moderate /hpf; Bilirubin,Urine Negative (Negative); Blood,Urine Moderate (Negative); Color,Urine Light Yellow; Glucose,Urine (UA) Negative (Negative); Ketones,Urine Negative (Negative); Leukocyte Esterase,Urine Negative (Negative); Mucus,Urine Rare /hpf; Nitrite,Urine Negative (Negative); Protein,Urine Negative (Negative); RBC,Urine 5 /hpf (0-5); Squamous Epithelial Cell,Urine 2 /hpf (0-4); Urobilinogen,Urine <2.0 mg/dL (<2.0); WBC,Urine 1 /hpf (0-5)
[2022-08-03 20:32] LABS: Specific Gravity,Urine >1.050 (1.001-1.035)
== END 2022-08-03 20:14 | disposition home or self-care (01) ==
LOC: EC 17:31
DX: R10.9 Unspecified abdominal pain (principal); J45.909 Unspecified asthma, uncomplicated; K21.9 Gastro-esophageal reflux disease without esophagitis; F41.9 Anxiety disorder, unspecified; F32.A Depression, unspecified; E11.9 Type 2 diabetes mellitus without complications; E07.9 Disorder of thyroid, unspecified; Z90.49 Acquired absence of other specified parts of digestive tract; Z79.899 Other long term (current) drug therapy; Z79.890 Hormone replacement therapy; Z98.84 Bariatric surgery status; Z88.6 Allergy status to analgesic agent; Z88.8 Allergy status to other drugs, medicaments and biological substances; Z79.85 Long-term (current) use of injectable non-insulin antidiabetic drugs
CPT/HCPCS: 99285 ×2; 96374 ×2; 96375 ×2; 96361 ×2; 36415; 80053; 82150; 83690; 85025; 85610; 85730; 81001; 74177; J2765; J2405; J1170; Q9967

== ENCOUNTER 2022-08-09 14:40 | Emergency (ER) | payer OTHER ==
[2022-08-09] MEDS ORDERED: KETOROLAC 15 MG/ML 1 ML VIAL IVP STA (16:31)
[2022-08-09] MEDS ORDERED: SODIUM CHLORIDE 0.9% 1,000 ML IV STA (16:31)
[2022-08-09 17:18] LABS: Basophils % (A) 0 %; Eosinophils # (A) 0.2 k/uL (0-0.7); Eosinophils % (A) 2 %; HCT 42.9 % (34.0-46.0); HGB 13.7 gm/dL (11.4-16.0); Lymphocytes # (A) 1.8 k/uL (1.0-4.8); Lymphocytes % (A) 23 %; MCH 28.9 pg (25.0-35.0); MCV 90.4 fL (80.0-100.0); Mean Platelet Volume 7.3; Monocytes # (A) 0.3 k/uL (0-1.0); Monocytes % (A) 4 %; Neutrophils # (A) 5.6 k/uL (1.3-7.7); Neutrophils % (A) 69 %; Platelet Count 329 k/uL (150-450); RBC 4.74 m/uL (3.80-5.40); RDW 13.9 % (11.5-15.5); WBC 8.1 k/uL (3.8-10.6)
[2022-08-09 17:46] LABS: ALT 36 U/L (4-34); AST 33 U/L (14-36); African American GFR (CKD) >90 (>60 ml/min/1.73 sqM); Albumin 3.9 g/dL (3.5-5.0); Alkaline Phosphatase 108 U/L (38-126); Amylase 78 U/L (30-110); Anion Gap 6 mmol/L; Blood Urea Nitrogen 14 mg/dL (7-17); Carbon Dioxide 29 mmol/L (22-30); Chloride 103 mmol/L (98-107); Glucose 134 mg/dL (74-99); Lipase 249 U/L (23-300); Non-African American GFR(CKD) >90 (>60 ml/min/1.73 sqM); Potassium 4.1 mmol/L (3.5-5.1); Sodium 138 mmol/L (137-145); Total Bilirubin 0.2 mg/dL (0.2-1.3); Total Protein 6.7 g/dL (6.3-8.2)
[2022-08-09 17:51] LABS: Appearance,Urine Clear (Clear); Bacteria,Urine Occasional /hpf; Bilirubin,Urine Negative (Negative); Blood,Urine Negative (Negative); Color,Urine Yellow; Glucose,Urine (UA) Negative (Negative); Ketones,Urine Negative (Negative); Leukocyte Esterase,Urine Small (Negative); Mucus,Urine Few /hpf; Nitrite,Urine Negative (Negative); PH, Urine 5.5 (5.0-8.0); Protein,Urine Negative (Negative); RBC,Urine 1 /hpf (0-5); Specific Gravity,Urine 1.023 (1.001-1.035); Squamous Epithelial Cell,Urine <1 /hpf (0-4); Urobilinogen,Urine <2.0 mg/dL (<2.0); WBC,Urine <1 /hpf (0-5)
[2022-08-09 18:40] LABS: INR 0.9 (<1.2); Partial Thromboplastin Time 25.4 sec (22.0-30.0); Prothrombin Time 9.8 sec (9.0-12.0)
--- NOTE | 2022-08-09 20:04 | ED ---
Abdominal Pain HPI - General Chief Complaint: Abdominal Pain Stated Complaint: Abd pain Time Seen by Provider: 08/09/22 16:21 Source: patient Mode of arrival: ambulatory Limitations: no limitations - History of Present Illness Initial Comments: Patient is a 37-year-old female presenting with chief complaint of right-sided abdominal pain. Patient states the pain started last night. Accompanied by nausea. Feels like a sharp stabbing pain. Patient has history of cholecystectomy and bariatric sleeve surgery. No fevers or chills. No flank pain. No dysuria or hematuria. No vomiting. No chest pain or difficulty breathing. Patient has been seen here for the same complaint previously. - Related Data Home Medications Medication Instructions Recorded Confirmed Levothyroxine Sodium [Synthroid] 50 mcg PO DAILY 05/05/14 07/17/22 Cetirizine HCl [Zyrtec] 10 mg PO DAILY 08/30/19 07/17/22 Pregabalin [Lyrica] 150 mg PO BID 08/30/19 07/17/22 ARIPiprazole [Abilify] 2 mg PO HS 09/14/20 07/17/22 Venlafaxine HCl [Effexor XR] 225 mg PO HS 09/14/20 07/17/22 Erenumab-Aooe [Aimovig 140 mg SQ Q30D 09/22/20 07/17/22 Autoinjector] HYDROcodone/APAP 7.5-325MG [[place] 1 tab PO BID PRN 08/23/21 07/17/22 7.5-325] Atogepant [Qulipta] 60 mg PO HS 11/28/21 07/17/22 Wfcfgjzsbywcaz-VI-Slnlzvcpud 1 tab PO DAILY 12/12/21 07/17/22 [Folbic] Ferrous Sulfate [Iron (65 MG 325 mg PO DAILY 12/12/21 07/17/22 Elemental)] Nystatin 100,000 Unit/gm Powd 1 applic TOPICAL BID PRN 12/12/21 07/17/22 [Mycostatin Powder] Nystatin/Triamcin 1 applic TOPICAL BID PRN 12/12/21 07/17/22 [Nystatin-Triamcinolone Cream] Cyclobenzaprine [Flexeril] 10 mg PO DAILY PRN 01/06/22 07/17/22 Butalb/Acetaminophen/Caffeine 1 tab PO Q6H PRN 05/19/22 07/17/22 [Fioricet 50-325-40] Ergocalciferol (Vitamin D2) 1,250 mcg PO Q7D 05/19/22 07/17/22 [Drisdol (50,000 Iu)] Fluconazole 200 mg PO GARCIA 05/19/22 07/17/22 rOPINIRole HCL [Requip] 3 mg PO HS 05/19/22 07/17/22 Semaglutide [Wegovy] 0.25 mg SQ Q7D 07/05/22 07/17/22 Previous Rx's Medication Instructions Recorded Metoclopramide [Reglan] 10 mg PO TID PRN #15 tab 04/19/22 Acetaminophen Tab [Tylenol] 650 mg PO Q6H #30 tab 07/11/22 Docusate [Colace] 100 mg PO BID #20 capsule 07/11/22 Ibuprofen [Motrin] 600 mg PO Q6HR PRN #40 tab 07/11/22 oxyCODONE HCL [OxyIR] 5 mg PO Q6H PRN 3 Days #10 tab 07/11/22 Allergies Allergy/AdvReac Type Severity Reaction Status Date / Time codeine AdvReac Hallucinati Verified 08/09/22 14:45 ons tramadol AdvReac Hallucinati Verified 08/09/22 14:45 ons valacyclovir HCl AdvReac BLURRED Verified 08/09/22 14:45 [From Valtrex] VISION Review of Systems ROS Statement: Those systems with pertinent positive or pertinent negative responses have been documented in the HPI. ROS Other: All systems not noted in ROS Statement are negative. Past Medical History Past Medical History: Asthma, Diabetes Mellitus, Fibromyalgia, GERD/Reflux, Sleep Apnea/CPAP/BIPAP, Thyroid Disorder Additional Past Medical History / Comment(s): Migraines with aura, DDD, NIDDM type II, diverticulitis with perforation/colostomy since reversed, IBS, chronic seroma, CARLITOS/no device, polycystic ovaries, hypothyroid, season allergies History of Any Multi-Drug Resistant Organisms: None Reported Past Surgical History: Bariatric Surgery, Cholecystectomy, Uterine Ablation Additional Past Surgical History / Comment(s): 06/06/21 sleeve gastrectomy, rt Breast biopsy. bowel resection with colostomy/ later colostomy reversal, abdominal surgery to remove scar tissue, EGD, colonoscopy, back pain procedures uterine ablation, lysis of adhesions 07/11/22 Past Anesthesia/Blood Transfusion Reactions: No Reported Reaction Additional Past Anesthesia/Blood Transfusion Reaction / Comment(s): no hx blood transfusion, received monoclonal antibodies in Feb 2021 Past Psychological History: Anxiety, Bipolar, Depression Smoking Status: Never smoker Past Alcohol Use History: None Reported Past Drug Use History: None Reported - Past Family History Mother History Unknown: Yes Family Medical History: COPD Additional Family Medical History / Comment(s): Mother from COPD at the age of 55 yrs. Brother(s) Family Medical History: Diabetes Mellitus Father Family Medical History: Unable to Obtain General Exam Limitations: no limitations General appearance: alert, in no apparent distress Head exam: Present: atraumatic, normocephalic, normal inspection Eye exam: Present: normal appearance Neck exam: Present: normal inspection, full ROM Respiratory exam: Present: normal lung sounds bilaterally. Absent: respiratory distress, wheezes, rales, rhonchi, stridor Cardiovascular Exam: Present: regular rate, normal rhythm, normal heart sounds. Absent: systolic murmur, diastolic murmur, rubs, gallop, clicks GI/Abdominal exam: Present: soft, tenderness. Absent: distended, guarding, rebound, rigid Neurological exam: Present: alert, oriented X3, CN II-XII intact Psychiatric exam: Present: normal affect, normal mood Skin exam: Present: warm, dry, intact, normal color. Absent: rash Course Vital Signs 08/09/22 08/09/22 08/09/22 14:41 16:52 17:00 Temperature 98.0 F Pulse Rate 94 90 78 Respiratory 20 18 18 Rate Blood Pressure 122/87 129/77 O2 Sat by Pulse 100 98 Oximetry 08/09/22 08/09/22 08/09/22 17:30 18:00 18:30 Temperature Pulse Rate 77 80 71 Respiratory 16 16 16 Rate Blood Pressure 121/68 124/82 114/76 O2 Sat by Pulse 96 95 100 Oximetry 08/09/22 08/09/22 08/09/22 19:00 19:30 20:00 Temperature Pulse Rate 73 85 68 Respiratory 16 16 16 Rate Blood Pressure 120/80 116/81 119/86 O2 Sat by Pulse 98 97 98 Oximetry 08/09/22 20:30 Temperature 98.7 F Pulse Rate 66 Respiratory 14 Rate Blood Pressure 110/78 O2 Sat by Pulse 97 Oximetry Medical Decision Making - Medical Decision Making Was pt. sent in by a medical professional or institution (, SOILA, MIXING TANK OPERATOR, urgent care, hospital, or correction...) When possible be specific @ -No Did you speak to anyone other than the patient for history (EMS, parent, family, police, friend...)? What history was obtained from this source @ -No Did you review nursing and triage notes (agree or disagree)? Why? @ -I reviewed and agree with nursing and triage notes Were old charts reviewed (outside hosp., previous admission, EMS record, old EKG, old radiological studies, urgent care reports/EKG's, correction records)? Report findings @ -No old charts were reviewed Differential Diagnosis (chest pain, altered mental status, abdominal pain women, abdominal pain men, vaginal bleeding, weakness, fever, dyspnea, syncope, headache, dizziness, GI bleed, back pain, seizure, CVA, palpatations, mental health, musculoskeletal)? @ -MDM Differential Abdominal Pain Women: Appendicitis, Cholecystitis, diverticulosis, ischemic bowel, pancreatitis, hepatitis, UTI, gastroenteritis, AAA, incarcerated hernia, bowel obstruction, constipation, inflammatory bowel, hepatitis, peptic ulcer disease, splenic infarction, perforated viscus, vulvitis, ovarian torsion, PID, kidney stone, placenta abruption... This is not meant to be an all-inclusive list EKG interpreted by me (3pts min.). @ -As above X-rays interpreted by me (1pt min.). @ -None done CT interpreted by me (1pt min.). @ -None done U/S interpreted by me (1pt. min.). @ -None done What testing was considered but not performed or refused? (CT, X-rays, U/S, labs)? Why? @ -None What meds were considered but not given or refused? Why? @ -None Did you discuss the management of the patient with other professionals (professionals i.e. SOILA Carrera, MIXING TANK OPERATOR, lab, RT, psych nurse, social sciences lecturer, lawyer criminal, teacher, low altitude air defense officer, case liner)? Give summary @ -No Was smoking cessation discussed for >3mins.? @ -No Was critical care preformed (if so, how long)? @ -No Were there social determinants of health that impacted care today? How? (Homelessness, low income, unemployed, alcoholism, drug addiction, transportation, low edu. Level, literacy, decrease access to med. care, [place] [facility], rehab)? @ -No Was there de-escalation of care discussed even if they declined (Discuss DNR or withdrawal of care, Hospice)? DNR status @ -No What co-morbidities impacted this encounter? (DM, HTN, Smoking, COPD, CAD, Cancer, CVA, ARF, Chemo, Hep., AIDS, mental health diagnosis, sleep apnea, morbid obesity)? @ -Obesity, diabetes Was patient admitted / discharged? Hospital course, mention meds given and route, prescriptions, significant lab abnormalities, going to OR and other pertinent info. @ -Patient is a 37-year-old female presenting with chief complaint of abdominal pain. Pain is located in the right upper quadrant, history of cholecystectomy. Physical examination is unimpressive, no guarding or rebound tenderness. Lab work shows no leukocytosis or anemia. ALT 36. Glucose 134. Remainder CMP as well as amylase and lipase are unremarkable. Urine shows signs of contamination and hCG is negative. Patient appears stable for discharge and instructed to follow-up with her surgeon. Follow-up with PCP. Report back to ER with any new or worsening symptoms. Discussed return parameters and answered all questions. Patient conveyed verbal understanding and agreed to the plan. I discussed this case in detail with my attending Dr. Anderson Undiagnosed new problem with uncertain prognosis? @ -No Drug Therapy requiring intensive monitoring for toxicity (Heparin, Nitro, Insulin, Cardizem)? @ -No Were any procedures done? @ -No Diagnosis/symptom? @ -Abdominal pain Acute, or Chronic, or Acute on Chronic? @ -Acute Uncomplicated (without systemic symptoms) or Complicated (systemic symptoms)? @ -Uncomplicated Side effects of treatment? @ -No Exacerbation, Progression, or Severe Exacerbation? @ -No Poses a threat to life or bodily function? How? (Chest pain, [place], [place], pneumonia, PE, COPD, DKA, ARF, appy, cholecystitis, CVA, Diverticulitis, Homicidal, Suicidal, threat to staff... and all critical care pts) @ -No - Lab Data Result diagrams: 08/09/22 16:29 08/09/22 16:29 Lab Results 08/09/22 08/09/22 08/09/22 Range/Units 16:29 16:29 16:29 WBC 8.1 (3.8-10.6) k/uL RBC 4.74 (3.80-5.40) m/uL Hgb 13.7 (11.4-16.0) gm/dL Hct 42.9 (34.0-46.0) % MCV 90.4 (80.0-100.0) fL MCH 28.9 (25.0-35.0) pg MCHC 32.0 (31.0-37.0) g/dL RDW 13.9 (11.5-15.5) % Plt Count 329 (150-450) k/uL MPV 7.3 Neutrophils % 69 % Lymphocytes % 23 % Monocytes % 4 % Eosinophils % 2 % Basophils % 0 % Neutrophils # 5.6 (1.3-7.7) k/uL Lymphocytes # 1.8 (1.0-4.8) k/uL Monocytes # 0.3 (0-1.0) k/uL Eosinophils # 0.2 (0-0.7) k/uL Basophils # 0.0 (0-0.2) k/uL PT 9.8 (9.0-12.0) sec INR 0.9 (<1.2) APTT 25.4 (22.0-30.0) sec Sodium (137-145) mmol/L Potassium (3.5-5.1) mmol/L Chloride (98-107) mmol/L Carbon Dioxide (22-30) mmol/L Anion Gap mmol/L BUN (7-17) mg/dL Creatinine (0.52-1.04) mg/dL Est GFR (CKD-EPI)AfAm (>60 ml/min/1.73 sqM) Est GFR (CKD-EPI)NonAf (>60 ml/min/1.73 sqM) Glucose (74-99) mg/dL Plasma Lactic Acid Yobani (0.7-2.0) mmol/L Calcium (8.4-10.2) mg/dL Total Bilirubin (0.2-1.3) mg/dL AST (14-36) U/L ALT (4-34) U/L Alkaline Phosphatase (38-126) U/L Total Protein (6.3-8.2) g/dL Albumin (3.5-5.0) g/dL Amylase (30-110) U/L Lipase (23-300) U/L Urine Color Yellow Urine Appearance Clear (Clear) Urine pH 5.5 (5.0-8.0) Ur Specific [place] 1.023 (1.001-1.035) Urine Protein Negative (Negative) Urine Glucose (UA) Negative (Negative) Urine Ketones Negative (Negative) Urine Blood Negative (Negative) Urine Nitrite Negative (Negative) Urine Bilirubin Negative (Negative) Urine Urobilinogen <2.0 (<2.0) mg/dL Ur Leukocyte Esterase Small H (Negative) Urine RBC 1 (0-5) /hpf Urine WBC <1 (0-5) /hpf Ur Squamous Epith Cells <1 (0-4) /hpf Urine Bacteria Occasional H (None) /hpf Urine Mucus Few H (None) /hpf Urine HCG, Qual (Not Detectd) 08/09/22 08/09/22 08/09/22 Range/Units 16:29 16:29 16:29 WBC (3.8-10.6) k/uL RBC (3.80-5.40) m/uL Hgb (11.4-16.0) gm/dL Hct (34.0-46.0) % MCV (80.0-100.0) fL MCH (25.0-35.0) pg MCHC (31.0-37.0) g/dL RDW (11.5-15.5) % Plt Count (150-450) k/uL MPV Neutrophils % % Lymphocytes % % Monocytes % % Eosinophils % % Basophils % % Neutrophils # (1.3-7.7) k/uL Lymphocytes # (1.0-4.8) k/uL Monocytes # (0-1.0) k/uL Eosinophils # (0-0.7) k/uL Basophils # (0-0.2) k/uL PT (9.0-12.0) sec INR (<1.2) APTT (22.0-30.0) sec Sodium 138 (137-145) mmol/L Potassium 4.1 (3.5-5.1) mmol/L Chloride 103 (98-107) mmol/L Carbon Dioxide 29 (22-30) mmol/L Anion Gap 6 mmol/L BUN 14 (7-17) mg/dL Creatinine 0.67 (0.52-1.04) mg/dL Est GFR (CKD-EPI)AfAm >90 (>60 ml/min/1.73 sqM) Est GFR (CKD-EPI)NonAf >90 (>60 ml/min/1.73 sqM) Glucose 134 H (74-99) mg/dL Plasma Lactic Acid Yobani 2.0 (0.7-2.0) mmol/L Calcium 9.0 (8.4-10.2) mg/dL Total Bilirubin 0.2 (0.2-1.3) mg/dL AST 33 (14-36) U/L ALT 36 H (4-34) U/L Alkaline Phosphatase 108 (38-126) U/L Total Protein 6.7 (6.3-8.2) g/dL Albumin 3.9 (3.5-5.0) g/dL Amylase 78 (30-110) U/L Lipase 249 (23-300) U/L Urine Color Urine Appearance (Clear) Urine pH (5.0-8.0) Ur Specific [place] (1.001-1.035) Urine Protein (Negative) Urine Glucose (UA) (Negative) Urine Ketones (Negative) Urine Blood (Negative) Urine Nitrite (Negative) Urine Bilirubin (Negative) Urine Urobilinogen (<2.0) mg/dL Ur Leukocyte Esterase (Negative) Urine RBC (0-5) /hpf Urine WBC (0-5) /hpf Ur Squamous Epith Cells (0-4) /hpf Urine Bacteria (None) /hpf Urine Mucus (None) /hpf Urine HCG, Qual Not Detected (Not Detectd) Disposition Clinical Impression: Abdominal pain Disposition: HOME SELF-CARE Condition: Good Instructions (If sedation given, give patient instructions): Abdominal Pain (ED) Additional Instructions: Follow-up with PCP and your surgeon. Report back to ER with any new or worseni ng symptoms. Is patient prescribed a controlled substance at d/c from ED?: No Referrals: Edgardo Inman MD [Primary Care Provider] - 1-2 days Time of Disposition: 20:04
[2022-08-09 20:56] VITALS: BP 110/78; PULSE 66; RESP 14; TEMP 98.7
== END 2022-08-09 23:53 | disposition home or self-care (01) ==
LOC: EC 14:40
DX: R10.9 Unspecified abdominal pain (principal); J45.909 Unspecified asthma, uncomplicated; E11.9 Type 2 diabetes mellitus without complications; E03.9 Hypothyroidism, unspecified; F41.9 Anxiety disorder, unspecified; F31.9 Bipolar disorder, unspecified; Z88.5 Allergy status to narcotic agent; Z88.8 Allergy status to other drugs, medicaments and biological substances; Z90.49 Acquired absence of other specified parts of digestive tract; Z79.890 Hormone replacement therapy; Z79.899 Other long term (current) drug therapy
CPT/HCPCS: 36415; 80053; 82150; 83605; 83690; 85025; 85610; 85730; 81001; 81025; 99284; 96374; 96361; J1885

== ENCOUNTER → 2022-08-21 | Outpatient (CLI) | payer OTHER ==
[2022-08-21 13:37] VITALS: BP 130/86; PULSE 116; TEMP 98.7; BMI 39.6
--- NOTE | 2022-08-21 13:38 | P.HPBAR ---
Bariatric H&P - History & Physicial H&P Date: 08/21/22 History & Physicial: Visit/CC: Patient initial contact: Initial weight: 312 kg Initial weight in pounds: Height: 5 ft 7 in Initial BMI: Last weight: Current weight: 114.759 kg Current weight in pounds: Current BMI: [place] body weight (based on NIH guidelines): Excess body weight loss: The patient is a 37 year-old F who presents for Bariatric Assessment.she's had minimal abdominal pain since her recent laparoscopic lysis of adhesions. She has some myoclonus of GERD. She complains of skin rashes that are panniculus. Her Current BMI is 40. GENERAL: [] LUNGS: [] HEART: [] ABDOMEN: [] NEUROLOGICAL: [] PSYCH: []she's had minimal abdominal pain since her recent laparoscopic lysis of adhesions. She has some myoclonus of GERD. She complains of skin rashes that are panniculus. Her Current BMI is 40. Past Medical History Past Medical History: Asthma, Diabetes Mellitus, Fibromyalgia, GERD/Reflux, Sleep Apnea/CPAP/BIPAP, Thyroid Disorder Additional Past Medical History / Comment(s): Migraines with aura, DDD, NIDDM type II, diverticulitis with perforation/colostomy since reversed, IBS, chronic seroma, CARLITOS/no device, polycystic ovaries, hypothyroid, season allergies History of Any Multi-Drug Resistant Organisms: None Reported Past Surgical History: Bariatric Surgery, Cholecystectomy, Uterine Ablation Additional Past Surgical History / Comment(s): 06/06/21 sleeve gastrectomy, rt Breast biopsy. bowel resection with colostomy/ later colostomy reversal, abdominal surgery to remove scar tissue, EGD, colonoscopy, back pain procedures uterine ablation, lysis of adhesions 07/11/22 Past Anesthesia/Blood Transfusion Reactions: No Reported Reaction Additional Past Anesthesia/Blood Transfusion Reaction / Comm: no hx blood transfusion, received monoclonal antibodies in Feb 2021 Past Psychological History: Anxiety, Bipolar, Depression Smoking Status: Never smoker Past Alcohol Use History: None Reported Past Drug Use History: None Reported - Past Family History Mother History Unknown: Yes Family Medical History: COPD Additional Family Medical History / Comment(s): Mother from COPD at the age of 55 yrs. Brother(s) Family Medical History: Diabetes Mellitus Father Family Medical History: Unable to Obtain Surgical - Exam - General well developed, well nourished, no distress - Eyes PERRL - ENT normal pinna - Neck no masses - Respiratory normal expansion - Cardiovascular Rhythm: regular - Abdomen Abdomen: soft, non tender Bariatric Assessment & Plan Plan: resolving morbid obesity. Patient's GERD is minimal will be observed. Patient will follow-up with her PCP to get documentation of her panniculitis. Bariatric Checklist Checklist: Plan: Checklist: EGD: 1. Hiatal hernia: 2. H. Pylori: HgbA1c: Vitamin D: Smoking: Never smoker Primary care physician referral: Dr. Alaniz Psychiatry clearance: Cardiology clearance: Sleep study: Diet journal: VTE risk score: VTE risk level: Rehab needs at discharge:
== END ==
LOC: BARWHC3 13:08
PROVIDERS: ATTEND Surgery
DX: E66.01 Morbid (severe) obesity due to excess calories (principal); K21.9 Gastro-esophageal reflux disease without esophagitis; M79.3 Panniculitis, unspecified; J45.909 Unspecified asthma, uncomplicated; E11.9 Type 2 diabetes mellitus without complications; M79.7 Fibromyalgia; Z88.5 Allergy status to narcotic agent; Z88.8 Allergy status to other drugs, medicaments and biological substances; Z98.84 Bariatric surgery status; Z86.39 Personal history of other endocrine, nutritional and metabolic disease; Z79.84 Long term (current) use of oral hypoglycemic drugs; F41.9 Anxiety disorder, unspecified; F31.9 Bipolar disorder, unspecified
CPT/HCPCS: 99211

== ENCOUNTER 2022-09-05 22:18 | Emergency (ER) | payer OTHER ==
[2022-09-05 22:31] LABS: Glucose,Whole Blood 114 mg/dL (70-110)
[2022-09-05] MEDS ORDERED: METOCLOPRAMIDE 5 MG/ML 2 ML VIAL IVP STA (22:39)
[2022-09-05] MEDS ORDERED: SODIUM CHLORIDE 0.9% 1,000 ML IV STA (22:39)
[2022-09-05] MEDS ORDERED: DEXAMETHASONE SOD PHOSPHATE 10 MG/ML 1 ML VIAL IVP STA (22:39)
--- NOTE | 2022-09-05 22:48 | ED ---
Headache HPI - General Chief Complaint: Headache Stated Complaint: Headache, left side heaviness Time Seen by Provider: 09/05/22 22:24 Source: patient, RN notes reviewed, old records reviewed Mode of arrival: ambulatory Limitations: no limitations - History of Present Illness Initial Comments: This is a nontoxic-appearing a 37-year-old female, alert and oriented 4, presents to the emergency room with a headache that started at around 4:00pm today. Patient states that she started to have left-sided weakness and heaviness around 5 PM. She has had similar episodes like this with her migraine headaches in the past. States that the pain is occipital. She does see [facility], Dr. Azar, who started her on Reyvow an abortive med ication 2 weeks ago however she did not take that today because she was at work and was directed not to take it unless she was at home. She did take a fiorcet around 1600 today with no relief. She is currently on Qulipta daily which has cut her monthly headaches in half. No fevers, nausea vomiting or diarrhea. MD Complaint: headache -: hour(s) (6) Onset Description: gradual Location: occipital Severity scale (1-10): 8 Quality: constant Consistency: constant Improves With: nothing Associated Symptoms: photophobia Treatments Prior to Arrival: other (fiorcet 1600) - Related Data Home Medications Medication Instructions Recorded Confirmed Levothyroxine Sodium [Synthroid] 50 mcg PO DAILY 05/05/14 08/22/22 Cetirizine HCl [Zyrtec] 10 mg PO DAILY 08/30/19 08/22/22 Pregabalin [Lyrica] 150 mg PO BID 08/30/19 08/22/22 ARIPiprazole [Abilify] 2 mg PO HS 09/14/20 08/22/22 Venlafaxine HCl [Effexor XR] 225 mg PO HS 09/14/20 08/22/22 Erenumab-Aooe [Aimovig 140 mg SQ Q30D 09/22/20 08/22/22 Autoinjector] HYDROcodone/APAP 7.5-325MG [[place] 1 tab PO BID PRN 08/23/21 08/22/22 7.5-325] Atogepant [Qulipta] 60 mg PO HS 11/28/21 08/22/22 Aaanwhnbfkpooc-QL-Komewzedtz 1 tab PO DAILY 12/12/21 08/22/22 [Folbic] Ferrous Sulfate [Iron (65 MG 325 mg PO DAILY 12/12/21 08/22/22 Elemental)] Nystatin 100,000 Unit/gm Powd 1 applic TOPICAL BID PRN 12/12/21 08/22/22 [Mycostatin Powder] Nystatin/Triamcin 1 applic TOPICAL BID PRN 12/12/21 08/22/22 [Nystatin-Triamcinolone Cream] Cyclobenzaprine [Flexeril] 10 mg PO DAILY PRN 01/06/22 08/22/22 Butalb/Acetaminophen/Caffeine 1 tab PO Q6H PRN 05/19/22 08/22/22 [Fioricet 50-325-40] Ergocalciferol (Vitamin D2) 1,250 mcg PO Q7D 05/19/22 08/22/22 [Drisdol (50,000 Iu)] Fluconazole 200 mg PO GARCIA 05/19/22 08/22/22 rOPINIRole HCL [Requip] 3 mg PO HS 05/19/22 08/22/22 Semaglutide [Wegovy] 0.25 mg SQ Q7D 07/05/22 08/22/22 Previous Rx's Medication Instructions Recorded Metoclopramide [Reglan] 10 mg PO TID PRN #15 tab 04/19/22 Acetaminophen Tab [Tylenol] 650 mg PO Q6H #30 tab 07/11/22 Docusate [Colace] 100 mg PO BID #20 capsule 07/11/22 Ibuprofen [Motrin] 600 mg PO Q6HR PRN #40 tab 07/11/22 oxyCODONE HCL [OxyIR] 5 mg PO Q6H PRN 3 Days #10 tab 07/11/22 Allergies Allergy/AdvReac Type Severity Reaction Status Date / Time codeine AdvReac Hallucinati Verified 09/05/22 22:23 ons tramadol AdvReac Hallucinati Verified 09/05/22 22:23 ons valacyclovir HCl AdvReac BLURRED Verified 09/05/22 22:23 [From Valtrex] VISION Review of Systems ROS Statement: Those systems with pertinent positive or pertinent negative responses have been documented in the HPI. ROS Other: All systems not noted in ROS Statement are negative. Past Medical History Past Medical History: Asthma, Diabetes Mellitus, Fibromyalgia, GERD/Reflux, Sleep Apnea/CPAP/BIPAP, Thyroid Disorder Additional Past Medical History / Comment(s): Migraines with aura, DDD, NIDDM type II, diverticulitis with perforation/colostomy since reversed, IBS, chronic seroma, CARLITOS/no device, polycystic ovaries, hypothyroid, season allergies History of Any Multi-Drug Resistant Organisms: None Reported Past Surgical History: Bariatric Surgery, Cholecystectomy, Uterine Ablation Additional Past Surgical History / Comment(s): 06/06/21 sleeve gastrectomy, rt Breast biopsy. bowel resection with colostomy/ later colostomy reversal, abdominal surgery to remove scar tissue, EGD, colonoscopy, back pain procedures uterine ablation, lysis of adhesions 07/11/22 Past Anesthesia/Blood Transfusion Reactions: No Reported Reaction Additional Past Anesthesia/Blood Transfusion Reaction / Comment(s): no hx blood transfusion, received monoclonal antibodies in Feb 2021 Past Psychological History: Anxiety, Bipolar, Depression Smoking Status: Never smoker Past Alcohol Use History: None Reported Past Drug Use History: None Reported - Past Family History Mother History Unknown: Yes Family Medical History: COPD Additional Family Medical History / Comment(s): Mother from COPD at the age of 55 yrs. Brother(s) Family Medical History: Diabetes Mellitus Father Family Medical History: Unable to Obtain General Exam Limitations: no limitations General appearance: alert, in no apparent distress Head exam: Present: atraumatic, normocephalic, normal inspection Eye exam: Present: normal appearance, EOMI. Absent: scleral icterus, conjunctival injection, nystagmus, periorbital swelling, periorbital tenderness ENT exam: Present: normal oropharynx, mucous membranes moist Expanded Mouth exam: Present: tongue normal, tongue elevation. Absent: drooling, trismus, muffled voice Throat exam: negative: normal inspection, tonsillar erythema, tonsillomegaly, tonsillar exudate, R peritonsillar mass, L peritonsillar mass Neck exam: Present: full ROM. Absent: tenderness, meningismus Respiratory exam: Absent: respiratory distress, accessory muscle use Cardiovascular Exam: Present: regular rate GI/Abdominal exam: Present: soft. Absent: rigid Extremities exam: Present: normal capillary refill. Absent: tenderness, pedal edema, calf tenderness Back exam: Present: full ROM. Absent: tenderness, CVA tenderness (R), CVA tenderness (L), paraspinal tenderness, vertebral tenderness, rash noted Neurological exam: Present: alert, oriented X3, CN II-XII intact, normal gait Expanded Patient oriented to: Present: person, place, time Speech: Present: fluid speech Cranial nerves: EOM's Intact: Normal, Gag Reflex: Normal, Tongue Deviation: Normal, Nystagmus: Normal Motor strength exam: RUE: 5, LUE: 4, RLE: 5, LLE: 4 Eye Response: (4) open spontaneously Motor Response: (6) obeys commands Verbal Response: (5) oriented [place]inn Total: 15 Psychiatric exam: Present: normal affect, normal mood Skin exam: Present: warm, dry, normal color. Absent: cyanosis, diaphoretic, petechiae, pallor Course Vital Signs 09/05/22 22:20 Temperature 98.4 F Pulse Rate 75 Respiratory 20 Rate Blood Pressure 132/92 O2 Sat by Pulse 100 Oximetry - Reevaluation(s) Reevaluation #1: 09/05/22 23:21 Reassessment for patient states that she did not receive any relief with the Reglan IV fluids and Decadron. States in the past does get relief with morphine or Dilaudid. Patient will be given Dilaudid and reassessed. Time: 23:21 Medical Decision Making - Medical Decision Making Patient alert and oriented 4. Speech is clear. No focal neurological deficits. No vision changes. This headache is similar to her previous migraine headaches. Patient did have a CT of the brain without contrast 06/13/2022 when she presented with headache and left arm weakness. CT was negative. She is currently seeing Dr. Azar at [facility]. He prescribed her Reyvow, an abortive medication which she did not use today. Patient feeling better after Dilaudid states will call her uncle to pick her up to take her home. She was directed to take her Reyvow as needed and follow-up with her neurologist. She is agreeable to this plan of care. Case discussed with Dr. Anderson Was pt. sent in by a medical professional or institution (, PA, CERTIFIED DENTAL ASSISTANT, urgent care, hospital, or jail...) When possible be specific @ -No Did you speak to anyone other than the patient for history (EMS, parent, family, police, friend...)? What history was obtained from this source @ -No Did you review nursing and triage notes (agree or disagree)? Why? @ -I reviewed and agree with nursing and triage notes Were old charts reviewed (outside hosp., previous admission, EMS record, old EKG, old radiological studies, urgent care reports/EKG's, jail records)? Report findings @ -Yes CT report as above Differential Diagnosis (chest pain, altered mental status, abdominal pain women, abdominal pain men, vaginal bleeding, weakness, fever, dyspnea, syncope, headache, dizziness, GI bleed, back pain, seizure, CVA, palpatations, mental health, musculoskeletal)? @ -Differential Headache: Migraine, tension, cluster, carbon monoxide, central venous thrombosis, pension karma temporal arteritis, acute closure glaucoma, intercranial hemorrhage, mastoiditis, sinusitis, head injury, this is not meant to be an all-inclusive list. EKG interpreted by me (3pts min.). @ -n/a X-rays interpreted by me (1pt min.). @ -None done CT interpreted by me (1pt min.). @ -None done U/S interpreted by me (1pt. min.). @ -None done What testing was considered but not performed or refused? (CT, X-rays, U/S, labs)? Why? @ -CT was considered however she recently had CT in May of this year with similar presenting symptoms which was negative. After medication patient has no focal neurological deficits. What meds were considered but not given or refused? Why? @ -None Did you discuss the management of the patient with other professionals (professionals i.e. , PA, CERTIFIED DENTAL ASSISTANT, lab, RT, psych nurse, social welfare clerk, boiler operators supervisor, teacher, parking officer, director of casework services)? Give summary @ -No Was smoking cessation discussed for >3mins.? @ -No Was critical care preformed (if so, how long)? @ -No Were there social determinants of health that impacted care today? How? (Homelessness, low income, unemployed, alcoholism, drug addiction, transportation, low edu. Level, literacy, decrease access to med. care, longterm, rehab)? @ -No Was there de-escalation of care discussed even if they declined (Discuss DNR or withdrawal of care, Hospice)? DNR status @ -No What co-morbidities impacted this encounter? (DM, HTN, Smoking, COPD, CAD, Cancer, CVA, ARF, Chemo, Hep., AIDS, mental health diagnosis, sleep apnea, morbid obesity)? @ -Asthma, diabetes, obesity, fibromyalgia, GERD, migraines, IBS, anxiety, bipolar, depression Was patient admitted / discharged? Hospital course, mention meds given and route, prescriptions, significant lab abnormalities, going to OR and other pertinent info. @ -Discharged Undiagnosed new problem with uncertain prognosis? @ -No Drug Therapy requiring intensive monitoring for toxicity (Heparin, Nitro, Insulin, Cardizem)? @ -No Were any procedures done? @ -No Diagnosis/symptom? @ -Headache Acute, or Chronic, or Acute on Chronic? @ -Acute on chronic Uncomplicated (without systemic symptoms) or Complicated (systemic symptoms)? @ -Uncomplicated Side effects of treatment? @ -No Exacerbation, Progression, or Severe Exacerbation? @ -No Poses a threat to life or bodily function? How? (Chest pain, [place], [place], pneumonia, PE, COPD, DKA, ARF, appy, cholecystitis, CVA, Diverticulitis, Homicidal, Suicidal, threat to staff... and all critical care pts) @ -No - Lab Data Lab Results 09/05/22 Range/Units 22:28 POC Glucose (mg/dL) 114 H (70-110) mg/dL POC Glu Electric Frying Pan Repairer DANITZA CraneLina Disposition Clinical Impression: Headache Disposition: HOME SELF-CARE Condition: Good Instructions (If sedation given, give patient instructions): Acute Headache (ED) Additional Instructions: Continue taking your previously prescribed medications. Follow up with your ne urologist. Return to the emergency room with any new or concerning symptoms. Is patient prescribed a controlled substance at d/c from ED?: No Referrals: Arely Ramirez [Primary Care Provider] - 1-2 days Thomas Azar MD [Medical Doctor] - 1-2 days Time of Disposition: 00:29
[2022-09-05] MEDS ORDERED: HYDROmorphone 0.5 MG/0.5 ML SYRINGE IVP STA (23:22)
[2022-09-06 00:36] VITALS: BP 115/76; PULSE 79; RESP 18; TEMP 98.2
== END 2022-09-06 00:36 | disposition home or self-care (01) ==
LOC: EC 22:18
DX: R51.9 Headache, unspecified (principal); J45.909 Unspecified asthma, uncomplicated; E11.9 Type 2 diabetes mellitus without complications; K21.9 Gastro-esophageal reflux disease without esophagitis; E07.9 Disorder of thyroid, unspecified; G47.30 Sleep apnea, unspecified; F41.9 Anxiety disorder, unspecified; F31.9 Bipolar disorder, unspecified; Z79.890 Hormone replacement therapy; Z79.899 Other long term (current) drug therapy; Z88.8 Allergy status to other drugs, medicaments and biological substances
CPT/HCPCS: 36415; 99284; 96374; 96375 ×2; 96361 ×2; J1100; J2765; J1170

== ENCOUNTER 2022-09-10 19:23 | Emergency (ER) | payer OTHER ==
[2022-09-10 20:03] VITALS: TEMP 98.5
--- NOTE | 2022-09-10 20:40 | ED ---
General Adult HPI - General Chief complaint: Neuro Symptoms/Deficit Stated complaint: severe migraines Time Seen by Provider: 09/10/22 20:40 Source: patient Mode of arrival: ambulatory Limitations: no limitations - History of Present Illness Initial comments: Patient presents to the ED complaining of having a "migraine headache" since about noon today. Patient states that her headache began in the back of her head, and it is now predominantly in the right side of her head. Patient states that she has had associated photophobia, dizziness, nausea and vomiting, which are all typical of her migraine headaches. Patient also states that she has developed stuttered speech, which she has had in the past with her migraine headaches. Patient denies sudden onset of severe headache, head trauma or injury, LOC, neck pain or stiffness, fever or chills, focal numbness/weakness/neuro deficit, visual changes, chest pain or pressure, dyspnea, dizziness, abdominal pain, vomiting, or any other symptoms or complaints. Patient states that she took a dose of Motrin, as well as hydrocodone, when her headache began about 9 hours ago. - Related Data Home Medications Medication Instructions Recorded Confirmed Levothyroxine Sodium [Synthroid] 50 mcg PO DAILY 05/05/14 08/22/22 Cetirizine HCl [Zyrtec] 10 mg PO DAILY 08/30/19 08/22/22 Pregabalin [Lyrica] 150 mg PO BID 08/30/19 08/22/22 ARIPiprazole [Abilify] 2 mg PO HS 09/14/20 08/22/22 Venlafaxine HCl [Effexor XR] 225 mg PO HS 09/14/20 08/22/22 Erenumab-Aooe [Aimovig 140 mg SQ Q30D 09/22/20 08/22/22 Autoinjector] HYDROcodone/APAP 7.5-325MG [[place] 1 tab PO BID PRN 08/23/21 08/22/22 7.5-325] Atogepant [Qulipta] 60 mg PO HS 11/28/21 08/22/22 Nqhkqsguxclmox-HX-Nbqvxncfdp 1 tab PO DAILY 12/12/21 08/22/22 [Folbic] Ferrous Sulfate [Iron (65 MG 325 mg PO DAILY 12/12/21 08/22/22 Elemental)] Nystatin 100,000 Unit/gm Powd 1 applic TOPICAL BID PRN 12/12/21 08/22/22 [Mycostatin Powder] Nystatin/Triamcin 1 applic TOPICAL BID PRN 12/12/21 08/22/22 [Nystatin-Triamcinolone Cream] Cyclobenzaprine [Flexeril] 10 mg PO DAILY PRN 01/06/22 08/22/22 Butalb/Acetaminophen/Caffeine 1 tab PO Q6H PRN 05/19/22 08/22/22 [Fioricet 50-325-40] Ergocalciferol (Vitamin D2) 1,250 mcg PO Q7D 05/19/22 08/22/22 [Drisdol (50,000 Iu)] Fluconazole 200 mg PO GARCIA 05/19/22 08/22/22 rOPINIRole HCL [Requip] 3 mg PO HS 05/19/22 08/22/22 Semaglutide [Wegovy] 0.25 mg SQ Q7D 07/05/22 08/22/22 Previous Rx's Medication Instructions Recorded Metoclopramide [Reglan] 10 mg PO TID PRN #15 tab 04/19/22 Acetaminophen Tab [Tylenol] 650 mg PO Q6H #30 tab 07/11/22 Docusate [Colace] 100 mg PO BID #20 capsule 07/11/22 Ibuprofen [Motrin] 600 mg PO Q6HR PRN #40 tab 07/11/22 oxyCODONE HCL [OxyIR] 5 mg PO Q6H PRN 3 Days #10 tab 07/11/22 Allergies Allergy/AdvReac Type Severity Reaction Status Date / Time codeine AdvReac Hallucinati Verified 09/10/22 20:00 ons tramadol AdvReac Hallucinati Verified 09/10/22 20:00 ons valacyclovir HCl AdvReac BLURRED Verified 09/10/22 20:00 [From Valtrex] VISION Review of Systems ROS Statement: Those systems with pertinent positive or pertinent negative responses have been documented in the HPI. ROS Other: All systems not noted in ROS Statement are negative. Past Medical History Past Medical History: Asthma, Diabetes Mellitus, Fibromyalgia, GERD/Reflux, Sleep Apnea/CPAP/BIPAP, Thyroid Disorder Additional Past Medical History / Comment(s): Migraines with aura, DDD, NIDDM type II, diverticulitis with perforation/colostomy since reversed, IBS, chronic seroma, CARLITOS/no device, polycystic ovaries, hypothyroid, season allergies History of Any Multi-Drug Resistant Organisms: None Reported Past Surgical History: Bariatric Surgery, Cholecystectomy, Uterine Ablation Additional Past Surgical History / Comment(s): 06/06/21 sleeve gastrectomy, rt Breast biopsy. bowel resection with colostomy/ later colostomy reversal, abdominal surgery to remove scar tissue, EGD, colonoscopy, back pain procedures uterine ablation, lysis of adhesions 07/11/22 Past Anesthesia/Blood Transfusion Reactions: No Reported Reaction Additional Past Anesthesia/Blood Transfusion Reaction / Comment(s): no hx blood transfusion, received monoclonal antibodies in Feb 2021 Past Psychological History: Anxiety, Bipolar, Depression Smoking Status: Never smoker Past Alcohol Use History: None Reported Past Drug Use History: None Reported - Past Family History Mother History Unknown: Yes Family Medical History: COPD Additional Family Medical History / Comment(s): Mother from COPD at the age of 55 yrs. Brother(s) Family Medical History: Diabetes Mellitus Father Family Medical History: Unable to Obtain General Exam Limitations: no limitations General appearance: alert Head exam: Present: atraumatic, normocephalic Eye exam: Present: normal appearance, PERRL, EOMI ENT exam: Present: mucous membranes moist Neck exam: Present: other (No nuchal rigidity or meningeal signs are present on exam). Absent: tenderness, meningismus Respiratory exam: Present: normal lung sounds bilaterally. Absent: respiratory distress, wheezes, rales, rhonchi, stridor Cardiovascular Exam: Present: regular rate, normal rhythm, normal heart sounds, other (Normal radial pulses bilaterally) GI/Abdominal exam: Present: soft. Absent: distended, tenderness, guarding Extremities exam: Absent: pedal edema Neurological exam: Present: alert, oriented X3, CN II-XII intact, other (Stuttered speech). Absent: motor sensory deficit Psychiatric exam: Present: normal affect, normal mood Skin exam: Present: warm, dry, intact, normal color Course Vital Signs 09/10/22 20:01 Temperature 98.5 F Pulse Rate 88 Respiratory 18 Rate Blood Pressure 130/87 O2 Sat by Pulse 99 Oximetry - Reevaluation(s) Reevaluation #1: 09/11/22 00:45 patient states that her headache/symptoms have improved significantly with ED treatment. Patient denies development of any new symptoms while in the ED. Patient's stuttered speech is now completely resolved. Patient continues to have a nonfocal neurological exam. I suspect that the patient's symptoms are likely due to migraine headache, and I do not suspect an emergent medical condition at this time. Patient was counseled about migraine headaches, and she was clearly explained return and follow-up instructions. Patient feels comfortable being discharged home at this time. Patient to get a ride home from the ED tonight. Medical Decision Making - Medical Decision Making Was pt. sent in by a medical professional or institution (, PA, INTERNAL MEDICINE PHYSICIAN, urgent care, hospital, or fci...) When possible be specific @ -No Did you speak to anyone other than the patient for history (EMS, parent, family, police, friend...)? What history was obtained from this source @ -No Did you review nursing and triage notes (agree or disagree)? Why? @ -I reviewed and agree with nursing and triage notes Were old charts reviewed (outside hosp., previous admission, EMS record, old EKG, old radiological studies, urgent care reports/EKG's, fci records)? Report findings @ -No old charts were reviewed Differential Diagnosis (chest pain, altered mental status, abdominal pain women, abdominal pain men, vaginal bleeding, weakness, fever, dyspnea, syncope, headache, dizziness, GI bleed, back pain, seizure, CVA, palpatations, mental health, musculoskeletal)? @ -Differential Headache: Migraine, tension, cluster, carbon monoxide, intracranial mass, intercranial hemorrhage, NPH, pseudotumor cerebri, CVA, this is not meant to be an all- inclusive list. EKG interpreted by me (3pts min.). @ -None done X-rays interpreted by me (1pt min.). @ -None done CT interpreted by me (1pt min.). @ -Patient's noncontrast head CT was reviewed myself, and I agree with the radiologist's interpretation as above. U/S interpreted by me (1pt. min.). @ -None done What testing was considered but not performed or refused? (CT, X-rays, U/S, labs)? Why? @ -None What meds were considered but not given or refused? Why? @ -None Did you discuss the management of the patient with other professionals (professionals i.e. , PA, INTERNAL MEDICINE PHYSICIAN, lab, RT, psych nurse, social professionals, eligibility examiner, te acher, control officer manager, bilingual patient support caseworker)? Give summary @ -No Was smoking cessation discussed for >3mins.? @ -No Was critical care preformed (if so, how long)? @ -No Were there social determinants of health that impacted care today? How? (Homelessness, low income, unemployed, alcoholism, drug addiction, transportation, low edu. Level, literacy, decrease access to med. care, fci, rehab)? @ -No Was there de-escalation of care discussed even if they declined (Discuss DNR or withdrawal of care, Hospice)? DNR status @ -No What co-morbidities impacted this encounter? (DM, HTN, Smoking, COPD, CAD, Cancer, CVA, ARF, Chemo, Hep., AIDS, mental health diagnosis, sleep apnea, morbid obesity)? @ -None Was patient admitted / discharged? Hospital course, mention meds given and rou te, prescriptions, significant lab abnormalities, going to OR and other pertinent info. @ -Patient's head CT is negative. Patient has a nonfocal neurological exam. Patient has been treated with IV medications for her migraine headache, and she states that her headache has now improved. Patient's stuttered speech has currently resolved. Patient states that she feels comfortable being discharged home at this time. Patient states that she will get a ride home from the ED tonight. Patient was counseled about migraine headaches, and she was clearly explained return and follow-up instructions. Patient feels comfortable with this plan. Undiagnosed new problem with uncertain prognosis? @ -No Drug Therapy requiring intensive monitoring for toxicity (Heparin, Nitro, Insulin, Cardizem)? @ -No Were any procedures done? @ -No Diagnosis/symptom? @ -Migraine headache Acute, or Chronic, or Acute on Chronic? @ -Acute Uncomplicated (without systemic symptoms) or Complicated (systemic symptoms)? @ -default Side effects of treatment? @ -No Exacerbation, Progression, or Severe Exacerbation? @ -No Poses a threat to life or bodily function? How? (Chest pain, [place], [place], pneumonia, PE, COPD, DKA, ARF, appy, cholecystitis, CVA, Diverticulitis, Homicidal, Michaela cidal, threat to staff... and all critical care pts) @ -No - Radiology Data Noncontrast head CT: No acute intracranial process, examination is not significantly changed from prior. Disposition Clinical Impression: Migraine headache Disposition: HOME SELF-CARE Condition: Stable Instructions (If sedation given, give patient instructions): Migraine Headache (ED) Additional Instructions: Return to the ER immediately should you develop new or worsening pain, numbness or weakness, neck pain or stiffness, a fever, persistent vomiting, feeling dizzy or faint, or new or worsening symptoms. Follow up closely with your primary care provider. Is patient prescribed a controlled substance at d/c from ED?: No Referrals: Arely Ramirez [Primary Care Provider] - 1-2 days Time of Disposition: 00:52
[2022-09-10] MEDS ORDERED: METOCLOPRAMIDE 5 MG/ML 2 ML VIAL IVP STA (20:50)
[2022-09-10] MEDS ORDERED: SODIUM CHLORIDE 0.9% 1,000 ML IV ONE (20:50)
[2022-09-10] MEDS ORDERED: diphenhydrAMINE 50 MG/ML 1 ML VIAL IVP STA (20:50)
--- NOTE | 2022-09-10 21:52 | CT ---
EXAMINATION TYPE: CT brain wo con CT DLP: 1129.4 mGycm, Automated exposure control for dose reduction was used. DATE OF EXAM: 09/10/2022 9:30 PM COMPARISON: CT brain 06/13/2022, CT brain 04/20/2022. CLINICAL INDICATION:Female, 37 years old with history of Headache, Complains of headache- onset today . TECHNIQUE: Brain: Axial CT images of the brain were obtained with coronal and sagittal reformats created and rev iewed. Contrast used: None. Oral contrast used: None. FINDINGS: Brain: Extra-axial spaces: No abnormal extra-axial fluid collections. Ventricular system: Within normal limits Cerebral parenchyma: No acute intraparenchymal hemorrhage or mass effect. The hicks-white junction is well differentiated. Cerebellum: Unremarkable. Mass effect: No evidence of midline shift. Intracranial vasculature: unremarkable Soft tissues: Normal. Calvarium/osseous structures: No depressed skull fracture. Paranasal sinuses and mastoid air cells: Mild scattered paranasal sinus disease.. Mastoid air cells a re Clear Visualized orbits: Orbital contents are intact. IMPRESSION: No acute intracranial process, examination is not significantly changed from prior.
[2022-09-10] MEDS ORDERED: KETOROLAC 15 MG/ML 1 ML VIAL IVP STA (23:01)
[2022-09-10] MEDS ORDERED: LORazepam 2 MG/ML INJ IV STA (23:02)
[2022-09-11 01:03] VITALS: BP 122/78; PULSE 72; RESP 16
== END 2022-09-11 01:10 | disposition home or self-care (01) ==
LOC: EC 19:23
DX: G43.909 Migraine, unspecified, not intractable, without status migrainosus (principal); E11.9 Type 2 diabetes mellitus without complications; F31.9 Bipolar disorder, unspecified; F41.9 Anxiety disorder, unspecified; G47.33 Obstructive sleep apnea (adult) (pediatric); J45.909 Unspecified asthma, uncomplicated; K21.9 Gastro-esophageal reflux disease without esophagitis; Z79.899 Other long term (current) drug therapy; Z79.890 Hormone replacement therapy; Z88.8 Allergy status to other drugs, medicaments and biological substances; Z90.49 Acquired absence of other specified parts of digestive tract
CPT/HCPCS: 70450; 99284; 96374; 96375 ×3; 96361; J2060; J1200; J2765; J1885

== ENCOUNTER 2022-09-23 13:43 | Emergency (ER) | payer OTHER ==
[2022-09-23] MEDS ORDERED: diphenhydrAMINE 50 MG/ML 1 ML VIAL IVP STA (15:08)
[2022-09-23] MEDS ORDERED: SODIUM CHLORIDE 0.9% 1,000 ML IV STA (15:08)
[2022-09-23] MEDS ORDERED: KETOROLAC 15 MG/ML 1 ML VIAL IVP STA (15:08)
[2022-09-23] MEDS ORDERED: DEXAMETHASONE SOD PHOSPHATE 10 MG/ML 1 ML VIAL IVP STA (15:08)
[2022-09-23] MEDS ORDERED: METOCLOPRAMIDE 5 MG/ML 2 ML VIAL IVP STA (15:08)
--- NOTE | 2022-09-23 16:07 | ED ---
Headache HPI - General Chief Complaint: Headache Stated Complaint: headache Time Seen by Provider: 09/23/22 15:01 Mode of arrival: ambulatory - History of Present Illness Initial Comments: Patient is a 37-year-old female presenting with chief complaint of headache. Patient is well-known to our ER and has history of migraines. States that this migraine started around 4:30 this morning. She admits to light sensitivity, pain behind the eye. No numbness or tingling. Patient feels fatigued. No cough, congestion, sore throat, fever, chills, vomiting, chest pain, difficulty breathing, abdominal pain, numbness, tingling. Patient has history of speech impairment with her migraines, no speech impairment at this time. She did try taking a Tasley at home for her pain. - Related Data Home Medications Medication Instructions Recorded Confirmed Levothyroxine Sodium [Synthroid] 50 mcg PO DAILY 05/05/14 08/22/22 Cetirizine HCl [Zyrtec] 10 mg PO DAILY 08/30/19 08/22/22 Pregabalin [Lyrica] 150 mg PO BID 08/30/19 08/22/22 ARIPiprazole [Abilify] 2 mg PO HS 09/14/20 08/22/22 Venlafaxine HCl [Effexor XR] 225 mg PO HS 09/14/20 08/22/22 Erenumab-Aooe [Aimovig 140 mg SQ Q30D 09/22/20 08/22/22 Autoinjector] HYDROcodone/APAP 7.5-325MG [[place] 1 tab PO BID PRN 08/23/21 08/22/22 7.5-325] Atogepant [Qulipta] 60 mg PO HS 11/28/21 08/22/22 Lxikerfrpvnnhw-XI-Gpfgnwdomu 1 tab PO DAILY 12/12/21 08/22/22 [Folbic] Ferrous Sulfate [Iron (65 MG 325 mg PO DAILY 12/12/21 08/22/22 Elemental)] Nystatin 100,000 Unit/gm Powd 1 applic TOPICAL BID PRN 12/12/21 08/22/22 [Mycostatin Powder] Nystatin/Triamcin 1 applic TOPICAL BID PRN 12/12/21 08/22/22 [Nystatin-Triamcinolone Cream] Cyclobenzaprine [Flexeril] 10 mg PO DAILY PRN 01/06/22 08/22/22 Butalb/Acetaminophen/Caffeine 1 tab PO Q6H PRN 05/19/22 08/22/22 [Fioricet 50-325-40] Ergocalciferol (Vitamin D2) 1,250 mcg PO Q7D 05/19/22 08/22/22 [Drisdol (50,000 Iu)] Fluconazole 200 mg PO GARCIA 05/19/22 08/22/22 rOPINIRole HCL [Requip] 3 mg PO HS 05/19/22 08/22/22 Semaglutide [Wegovy] 0.25 mg SQ Q7D 07/05/22 08/22/22 Previous Rx's Medication Instructions Recorded Metoclopramide [Reglan] 10 mg PO TID PRN #15 tab 04/19/22 Acetaminophen Tab [Tylenol] 650 mg PO Q6H #30 tab 07/11/22 Docusate [Colace] 100 mg PO BID #20 capsule 07/11/22 Ibuprofen [Motrin] 600 mg PO Q6HR PRN #40 tab 07/11/22 oxyCODONE HCL [OxyIR] 5 mg PO Q6H PRN 3 Days #10 tab 07/11/22 Allergies Allergy/AdvReac Type Severity Reaction Status Date / Time codeine AdvReac Hallucinati Verified 09/10/22 20:00 ons tramadol AdvReac Hallucinati Verified 09/10/22 20:00 ons valacyclovir HCl AdvReac BLURRED Verified 09/10/22 20:00 [From Valtrex] VISION Review of Systems ROS Statement: Those systems with pertinent positive or pertinent negative responses have been documented in the HPI. ROS Other: All systems not noted in ROS Statement are negative. Past Medical History Past Medical History: Asthma, Diabetes Mellitus, Fibromyalgia, GERD/Reflux, Sleep Apnea/CPAP/BIPAP, Thyroid Disorder Additional Past Medical History / Comment(s): Migraines with aura, DDD, NIDDM type II, diverticulitis with perforation/colostomy since reversed, IBS, chronic seroma, CARLITOS/no device, polycystic ovaries, hypothyroid, season allergies History of Any Multi-Drug Resistant Organisms: None Reported Past Surgical History: Bariatric Surgery, Cholecystectomy, Uterine Ablation Additional Past Surgical History / Comment(s): 06/06/21 sleeve gastrectomy, rt Breast biopsy. bowel resection with colostomy/ later colostomy reversal, abdominal surgery to remove scar tissue, EGD, colonoscopy, back pain procedures uterine ablation, lysis of adhesions 07/11/22 Past Anesthesia/Blood Transfusion Reactions: No Reported Reaction Additional Past Anesthesia/Blood Transfusion Reaction / Comment(s): no hx blood transfusion, received monoclonal antibodies in Feb 2021 Past Psychological History: Anxiety, Bipolar, Depression Smoking Status: Never smoker Past Alcohol Use History: None Reported Past Drug Use History: None Reported - Past Family History Mother History Unknown: Yes Family Medical History: COPD Additional Family Medical History / Comment(s): Mother from COPD at the age of 55 yrs. Brother(s) Family Medical History: Diabetes Mellitus Father Family Medical History: Unable to Obtain General Exam Limitations: no limitations General appearance: alert, in no apparent distress Head exam: Present: atraumatic, normocephalic, normal inspection Eye exam: Present: normal appearance, PERRL, EOMI. Absent: scleral icterus, periorbital swelling Neck exam: Present: normal inspection, full ROM Respiratory exam: Present: normal lung sounds bilaterally. Absent: respiratory distress, wheezes, rales, rhonchi, stridor Cardiovascular Exam: Present: regular rate, normal rhythm, normal heart sounds. Absent: systolic murmur, diastolic murmur, rubs, gallop, clicks Neurological exam: Present: alert, oriented X3, CN II-XII intact Expanded Patient oriented to: Present: person, place, time Speech: Present: fluid speech Cranial nerves: EOM's Intact: Normal Eye Response: (4) open spontaneously Motor Response: (6) obeys commands Verbal Response: (5) oriented [place] Total: 15 Psychiatric exam: Present: normal affect, normal mood Skin exam: Present: warm, dry, intact, normal color. Absent: rash Course Vital Signs 09/23/22 09/23/22 09/23/22 13:44 17:00 17:31 Temperature 98.2 F Pulse Rate 67 70 67 Respiratory 18 Rate Blood Pressure 123/82 109/64 115/62 O2 Sat by Pulse 100 99 Oximetry 09/23/22 09/23/22 18:07 19:02 Temperature 97.9 F Pulse Rate 68 68 Respiratory 16 Rate Blood Pressure 97/52 123/79 O2 Sat by Pulse 98 Oximetry Medical Decision Making - Medical Decision Making Patient is a 37-year-old female presenting with chief complaint of migraine. Patient has history of migraines, well-known to our ER. Physical examination is unremarkable, GCS 15. No focal neurological deficits. Patient is given migraine cocktail. On reassessment she reports improvement in her symptoms. She will be discharged home. Follow-up with PCP. Report back to ER with any new or worsening symptoms. Discussed return parameters and answered all questions. Patient conveyed verbal understanding and agreed to the plan. I discussed this case in detail with my attending Dr. Botello Was pt. sent in by a medical professional or institution (, PA, METAL STORAGE WORKER, urgent care, hospital, or intermediate...) When possible be specific @ -No Did you speak to anyone other than the patient for history (EMS, parent, family, police, friend...)? What history was obtained from this source @ -No Did you review nursing and triage notes (agree or disagree)? Why? @ -I reviewed and agree with nursing and triage notes Were old charts reviewed (outside hosp., previous admission, EMS record, old EKG, old radiological studies, urgent care reports/EKG's, intermediate records)? Report findings @ -No old charts were reviewed Differential Diagnosis (chest pain, altered mental status, abdominal pain women, abdominal pain men, vaginal bleeding, weakness, fever, dyspnea, syncope, headache, dizziness, GI bleed, back pain, seizure, CVA, palpatations, mental health, musculoskeletal)? @ -MDM Differential Headache: Migraine, tension, cluster, carbon monoxide, central venous thrombosis, pension karma temporal arteritis, acute closure glaucoma, intercranial hemorrhage, mastoiditis, sinusitis, head injury this is not meant to be an all-inclusive list. EKG interpreted by me (3pts min.). @ -As above X-rays interpreted by me (1pt min.). @ -None done CT interpreted by me (1pt min.). @ -None done U/S interpreted by me (1pt. min.). @ -None done What testing was considered but not performed or refused? (CT, X-rays, U/S, labs)? Why? @ -None What meds were considered but not given or refused? Why? @ -None Did you discuss the management of the patient with other professionals (professionals i.e. , PA, METAL STORAGE WORKER, lab, RT, psych nurse, web content & social media manager, applied psychology chair, teacher, ground intelligence officer, pillowcase cutter)? Give summary @ -No Was smoking cessation discussed for >3mins.? @ -No Was critical care preformed (if so, how long)? @ -No Were there social determinants of health that impacted care today? How? (Homelessness, low income, unemployed, alcoholism, drug addiction, transportation, low edu. Level, literacy, decrease access to med. care, skilled nursing, rehab)? @ -No Was there de-escalation of care discussed even if they declined (Discuss DNR or withdrawal of care, Hospice)? DNR status @ -No What co-morbidities impacted this encounter? (DM, HTN, Smoking, COPD, CAD, Cancer, CVA, ARF, Chemo, Hep., AIDS, mental health diagnosis, sleep apnea, morbid obesity)? @ -None Was patient admitted / discharged? Hospital course, mention meds given and route, prescriptions, significant lab abnormalities, going to OR and other pertinent info. @ -See above Undiagnosed new problem with uncertain prognosis? @ -No Drug Therapy requiring intensive monitoring for toxicity (Heparin, Nitro, Insul in, Cardizem)? @ -No Were any procedures done? @ -No Diagnosis/symptom? @ -Migraine Acute, or Chronic, or Acute on Chronic? @ -Acute Uncomplicated (without systemic symptoms) or Complicated (systemic symptoms)? @ -Uncomplicated Side effects of treatment? @ -No Exacerbation, Progression, or Severe Exacerbation? @ -No Poses a threat to life or bodily function? How? (Chest pain, [place], [place], pneumonia, PE, COPD, DKA, ARF, appy, cholecystitis, CVA, Diverticulitis, Homicidal, Suicidal, threat to staff... and all critical care pts) @ -No Disposition Clinical Impression: Migraine headache Disposition: HOME SELF-CARE Condition: Good Instructions (If sedation given, give patient instructions): Migraine Headache (ED) Additional Instructions: Follow-up with PCP and neurologist. Report back to ER with any new or worsening symptoms. Take Motrin Tylenol today for pain control. Is patient prescribed a controlled substance at d/c from ED?: No Referrals: None,Stated [Primary Care Provider] - 1-2 days Time of Disposition: 17:44
[2022-09-23] MEDS ORDERED: HYDROmorphone 0.5 MG/0.5 ML SYRINGE IVP STA (16:28)
[2022-09-23] MEDS ORDERED: SODIUM CHLORIDE 0.9% 1,000 ML IV ONE (18:02)
[2022-09-23 18:09] VITALS: PULSE 68
[2022-09-23 19:05] VITALS: BP 123/79; RESP 16; TEMP 97.9
== END 2022-09-23 19:05 | disposition home or self-care (01) ==
LOC: EC 13:43
DX: G43.909 Migraine, unspecified, not intractable, without status migrainosus (principal); J45.909 Unspecified asthma, uncomplicated; E11.9 Type 2 diabetes mellitus without complications; G47.30 Sleep apnea, unspecified; K21.9 Gastro-esophageal reflux disease without esophagitis; E07.9 Disorder of thyroid, unspecified; F41.9 Anxiety disorder, unspecified; F31.9 Bipolar disorder, unspecified; Z79.890 Hormone replacement therapy; Z79.84 Long term (current) use of oral hypoglycemic drugs; Z79.899 Other long term (current) drug therapy; Z88.5 Allergy status to narcotic agent; Z88.8 Allergy status to other drugs, medicaments and biological substances; Z88.6 Allergy status to analgesic agent
CPT/HCPCS: 99284; 96374; 96375 ×4; 96361 ×2; J1200; J1100; J2765; J1885; J1170

== ENCOUNTER 2022-09-27 09:54 | Emergency (ER) | payer OTHER ==
[2022-09-27] MEDS ORDERED: diphenhydrAMINE 50 MG/ML 1 ML VIAL IVP STA (11:29)
[2022-09-27] MEDS ORDERED: KETOROLAC 15 MG/ML 1 ML VIAL IVP STA (11:29)
[2022-09-27] MEDS ORDERED: METOCLOPRAMIDE 5 MG/ML 2 ML VIAL IVP STA (11:29)
[2022-09-27] MEDS ORDERED: SODIUM CHLORIDE 0.9% 1,000 ML IV STA (11:29)
[2022-09-27] MEDS ORDERED: HYDROmorphone 0.5 MG/0.5 ML SYRINGE IVP STA (12:57)
[2022-09-27] MEDS ORDERED: SODIUM CHLORIDE 0.9% 1,000 ML IV ONE (12:57)
[2022-09-27 13:04] VITALS: RESP 16
--- NOTE | 2022-09-27 13:59 | ED ---
General Adult HPI - General Chief complaint: Headache Stated complaint: Recheck/headache Time Seen by Provider: 09/27/22 11:09 Source: patient, RN notes reviewed, old records reviewed Mode of arrival: ambulatory Limitations: no limitations - History of Present Illness Initial comments: 37-year-old female presents to the emergency department with chief complaint of migraine headache. Patient states that she has a long-standing history of migraines and this is similar to all of her previous migraines. Patient states that it is on the right side of her head which is typical for her. She states that she gets stuttering with her headaches which she is having today. She states that she is having nausea and vomiting which is typical of her migraines. Patient reports mild photosensitivity. Patient denies fever, vision changes, facial droop, weakness. She follows with Dr. Azar's office. She states that she tried to get in this morning but was unable to as they were booked out. She takes daily preventative medication for her migraines. - Related Data Home Medications Medication Instructions Recorded Confirmed Levothyroxine Sodium [Synthroid] 50 mcg PO DAILY 05/05/14 08/22/22 Cetirizine HCl [Zyrtec] 10 mg PO DAILY 08/30/19 08/22/22 Pregabalin [Lyrica] 150 mg PO BID 08/30/19 08/22/22 ARIPiprazole [Abilify] 2 mg PO HS 09/14/20 08/22/22 Venlafaxine HCl [Effexor XR] 225 mg PO HS 09/14/20 08/22/22 Erenumab-Aooe [Aimovig 140 mg SQ Q30D 09/22/20 08/22/22 Autoinjector] HYDROcodone/APAP 7.5-325MG [[place] 1 tab PO BID PRN 08/23/21 08/22/22 7.5-325] Atogepant [Qulipta] 60 mg PO HS 11/28/21 08/22/22 Gudtcffdurfhux-WB-Qgtrhkrzri 1 tab PO DAILY 12/12/21 08/22/22 [Folbic] Ferrous Sulfate [Iron (65 MG 325 mg PO DAILY 12/12/21 08/22/22 Elemental)] Nystatin 100,000 Unit/gm Powd 1 applic TOPICAL BID PRN 12/12/21 08/22/22 [Mycostatin Powder] Nystatin/Triamcin 1 applic TOPICAL BID PRN 12/12/21 08/22/22 [Nystatin-Triamcinolone Cream] Cyclobenzaprine [Flexeril] 10 mg PO DAILY PRN 01/06/22 08/22/22 Butalb/Acetaminophen/Caffeine 1 tab PO Q6H PRN 05/19/22 08/22/22 [Fioricet 50-325-40] Ergocalciferol (Vitamin D2) 1,250 mcg PO Q7D 05/19/22 08/22/22 [Drisdol (50,000 Iu)] Fluconazole 200 mg PO GARCIA 05/19/22 08/22/22 rOPINIRole HCL [Requip] 3 mg PO HS 05/19/22 08/22/22 Semaglutide [Wegovy] 0.25 mg SQ Q7D 07/05/22 08/22/22 Previous Rx's Medication Instructions Recorded Metoclopramide [Reglan] 10 mg PO TID PRN #15 tab 04/19/22 Acetaminophen Tab [Tylenol] 650 mg PO Q6H #30 tab 07/11/22 Docusate [Colace] 100 mg PO BID #20 capsule 07/11/22 Ibuprofen [Motrin] 600 mg PO Q6HR PRN #40 tab 07/11/22 oxyCODONE HCL [OxyIR] 5 mg PO Q6H PRN 3 Days #10 tab 07/11/22 Allergies Allergy/AdvReac Type Severity Reaction Status Date / Time codeine AdvReac Hallucinati Verified 09/27/22 10:05 ons tramadol AdvReac Hallucinati Verified 09/27/22 10:05 ons valacyclovir HCl AdvReac BLURRED Verified 09/27/22 10:05 [From Valtrex] VISION Review of Systems ROS Statement: Those systems with pertinent positive or pertinent negative responses have been documented in the HPI. ROS Other: All systems not noted in ROS Statement are negative. Past Medical History Past Medical History: Asthma, Diabetes Mellitus, Fibromyalgia, GERD/Reflux, Sleep Apnea/CPAP/BIPAP, Thyroid Disorder Additional Past Medical History / Comment(s): Migraines with aura, DDD, NIDDM type II, diverticulitis with perforation/colostomy since reversed, IBS, chronic seroma, CARLITOS/no device, polycystic ovaries, hypothyroid, season allergies History of Any Multi-Drug Resistant Organisms: None Reported Past Surgical History: Bariatric Surgery, Cholecystectomy, Uterine Ablation Additional Past Surgical History / Comment(s): 06/06/21 sleeve gastrectomy, rt Breast biopsy. bowel resection with colostomy/ later colostomy reversal, abdominal surgery to remove scar tissue, EGD, colonoscopy, back pain procedures uterine ablation, lysis of adhesions 07/11/22 Past Anesthesia/Blood Transfusion Reactions: No Reported Reaction Additional Past Anesthesia/Blood Transfusion Reaction / Comment(s): no hx blood transfusion, received monoclonal antibodies in Feb 2021 Past Psychological History: Anxiety, Bipolar, Depression Smoking Status: Never smoker Past Alcohol Use History: None Reported Past Drug Use History: None Reported - Past Family History Mother History Unknown: Yes Family Medical History: COPD Additional Family Medical History / Comment(s): Mother from COPD at the age of 55 yrs. Brother(s) Family Medical History: Diabetes Mellitus Father Family Medical History: Unable to Obtain General Exam Limitations: no limitations General appearance: alert, in no apparent distress Head exam: Present: atraumatic, normocephalic, normal inspection Eye exam: Present: normal appearance, PERRL, EOMI. Absent: scleral icterus, conjunctival injection, periorbital swelling ENT exam: Present: normal exam, mucous membranes moist Neck exam: Present: normal inspection. Absent: tenderness, meningismus, lymphadenopathy Respiratory exam: Present: normal lung sounds bilaterally. Absent: respiratory distress, wheezes, rales, rhonchi, stridor Cardiovascular Exam: Present: regular rate, normal rhythm, normal heart sounds. Absent: systolic murmur, diastolic murmur, rubs, gallop, clicks Extremities exam: Present: normal inspection, full ROM, normal capillary refill. Absent: tenderness, pedal edema, joint swelling, calf tenderness Back exam: Present: normal inspection Neurological exam: Present: alert, oriented X3, CN II-XII intact, other (Upon initial evaluation, patient had a mild stutter. After administration of medication and improvement of symptoms, the stutter had completely resolved) Psychiatric exam: Present: normal affect, normal mood Skin exam: Present: warm, dry, intact, normal color. Absent: rash Course Vital Signs 09/27/22 09/27/22 09/27/22 10:02 11:05 12:05 Temperature 98.1 F 98 F 98 F Pulse Rate 69 69 67 Respiratory 18 16 16 Rate Blood Pressure 105/70 105/69 107/89 O2 Sat by Pulse 96 97 98 Oximetry 09/27/22 14:40 Temperature 97.9 F Pulse Rate 65 Respiratory 16 Rate Blood Pressure 109/74 O2 Sat by Pulse 97 Oximetry Medical Decision Making - Medical Decision Making Was pt. sent in by a medical professional or institution (, SOILA, VALVE INSERTER, urgent care, hospital, or usp...) When possible be specific @ -No Did you speak to anyone other than the patient for history (EMS, parent, family, police, friend...)? What history was obtained from this source @ -No Did you review nursing and triage notes (agree or disagree)? Why? @ -I reviewed and agree with nursing and triage notes Were old charts reviewed (outside hosp., previous admission, EMS record, old EKG, old radiological studies, urgent care reports/EKG's, usp records)? Report findings @ -No old charts were reviewed Differential Diagnosis (chest pain, altered mental status, abdominal pain women, abdominal pain men, vaginal bleeding, weakness, fever, dyspnea, syncope, headache, dizziness, GI bleed, back pain, seizure, CVA, palpatations, mental health, musculoskeletal)? @ -Differential Headache: Migraine, tension, cluster, carbon monoxide, central venous thrombosis, pension karma temporal arteritis, acute closure glaucoma, intercranial hemorrhage, mastoiditis, sinusitis, head injury, this is not meant to be an all-inclusive list. EKG interpreted by me (3pts min.). @ -None X-rays interpreted by me (1pt min.). @ -None done CT interpreted by me (1pt min.). @ -None done U/S interpreted by me (1pt. min.). @ -None done What testing was considered but not performed or refused? (CT, X-rays, U/S, labs)? Why? @ -Ct of brain was considered, patient recently had a ct and has no red flag symptoms or symptoms that are new to the patient What meds were considered but not given or refused? Why? @ -None Did you discuss the management of the patient with other professionals (professionals i.e. , SOILA, VALVE INSERTER, lab, RT, psych nurse, social sciences professor, step down nurse, teacher, loan workout officer, protective services case worker)? Give summary @ -No Was smoking cessation discussed for >3mins.? @ -No Was critical care preformed (if so, how long)? @ -No Were there social determinants of health that impacted care today? How? (Homelessness, low income, unemployed, alcoholism, drug addiction, transportation, low edu. Level, literacy, decrease access to med. care, alf, rehab)? @ -No Was there de-escalation of care discussed even if they declined (Discuss DNR or withdrawal of care, Hospice)? DNR status @ -No What co-morbidities impacted this encounter? (DM, HTN, Smoking, COPD, CAD, Canc [place], CVA, ARF, Chemo, Hep., AIDS, mental health diagnosis, sleep apnea, morbid obesity)? @ -None Was patient admitted / discharged? Hospital course, mention meds given and route, prescriptions, significant lab abnormalities, going to OR and other pertinent info. @ -Discharge. Patient presented to the emergency department with chief complaint of migraine. Patient states that she has a long-standing history of migraines and often has a stutter, nausea, vomiting, photosensitivity with her headaches which she presented with today. Patient follows with Dr. Azar's office. She was administered a migraine cocktail and 2 L of fluid in the emergency department which had given her some relief. Patient was administered 0.5 mg of Dilaudid and had complete resolution of her symptoms including the stutter that was initially present. Patient advised to follow-up with her neurologist and primary care physician for further management. Case discussed with my attending, Dr. Flores Undiagnosed new problem with uncertain prognosis? @ -No Drug Therapy requiring intensive monitoring for toxicity (Heparin, Nitro, Insulin, Cardizem)? @ -No Were any procedures done? @ -No Diagnosis/symptom? @ -Migraine Acute, or Chronic, or Acute on Chronic? @ -Acute Uncomplicated (without systemic symptoms) or Complicated (systemic symptoms)? @ -Uncomplicated Side effects of treatment? @ -No Exacerbation, Progression, or Severe Exacerbation? @ -No Poses a threat to life or bodily function? How? (Chest pain, [place], [place], pneumonia, PE, COPD, DKA, ARF, appy, cholecystitis, CVA, Diverticulitis, Homicidal, Suicidal, threat to staff... and all critical care pts) @ -No Disposition Clinical Impression: Migraine Disposition: HOME SELF-CARE Condition: Stable Instructions (If sedation given, give patient instructions): Acute Headache (ED) Additional Instructions: Please return to the Emergency Department if symptoms worsen or any other concerns. Is patient prescribed a controlled substance at d/c from ED?: No Referrals: Qing Machado NPC [Primary Care Provider] - 1-2 days Time of Disposition: 14:01
[2022-09-27 14:41] VITALS: BP 109/74; PULSE 65; TEMP 97.9
== END 2022-09-27 14:42 | disposition home or self-care (01) ==
LOC: EC 09:54
DX: G43.909 Migraine, unspecified, not intractable, without status migrainosus (principal); J45.909 Unspecified asthma, uncomplicated; E11.9 Type 2 diabetes mellitus without complications; K21.9 Gastro-esophageal reflux disease without esophagitis; E07.9 Disorder of thyroid, unspecified; F41.9 Anxiety disorder, unspecified; F31.9 Bipolar disorder, unspecified; Z88.5 Allergy status to narcotic agent; Z88.8 Allergy status to other drugs, medicaments and biological substances; Z79.890 Hormone replacement therapy; Z79.899 Other long term (current) drug therapy
CPT/HCPCS: 99283; 96374; 96375 ×3; 96361 ×2; J1200; J2765; J1885; J1170

== ENCOUNTER 2022-09-29 14:02 | Emergency (ER) | payer OTHER ==
[2022-09-29] MEDS ORDERED: KETOROLAC 15 MG/ML 1 ML VIAL IVP STA (16:40)
[2022-09-29] MEDS ORDERED: methylPREDNISolone SOD SUCCIN 250 MG in SODIUM CHLORIDE 0.9% 100 ML IVPB STA (16:40)
[2022-09-29] MEDS ORDERED: SODIUM CHLORIDE 0.9% 500 ML 500 ML IV STA (16:40)
[2022-09-29] MEDS ORDERED: PROCHLORPERAZINE INJ 10 MG/2 ML VIAL IVP STA (16:40)
[2022-09-29] MEDS ORDERED: diphenhydrAMINE 50 MG/ML 1 ML VIAL IVP STA (16:40)
--- NOTE | 2022-09-29 16:41 | ED ---
Headache HPI - General Chief Complaint: Headache Stated Complaint: Migraine Time Seen by Provider: 09/29/22 15:38 Source: RN notes reviewed, old records reviewed Mode of arrival: ambulatory Limitations: no limitations - History of Present Illness Initial Comments: This is a 37-year-old female the emergency department for evaluation. Patient has history of headache migraine headaches. This is her third visit from earlier this week which she states to me during history of present illness. Patient is concerned that her headache is getting worse and she has had an imaging and well. Patient's headache is normal migraine headache but is just been more consistent this week. No travel history no sick contacts no fevers no neurological complaints no current nausea and vomiting. No chance of . No trauma MD Complaint: headache, "migraine" -: days(s) Onset Description: gradual Location: right, left, frontal, temporal Severity: severe Severity scale (1-10): 9 Quality: aching, throbbing Consistency: constant, intermittent Improves With: nothing Worsens With: none Associated Symptoms: nausea Other Symptoms: other (0) Treatments Prior to Arrival: none - Related Data Home Medications Medication Instructions Recorded Confirmed Levothyroxine Sodium [Synthroid] 50 mcg PO DAILY 05/05/14 10/02/22 Cetirizine HCl [Zyrtec] 10 mg PO DAILY 08/30/19 10/02/22 Pregabalin [Lyrica] 150 mg PO BID 08/30/19 10/02/22 ARIPiprazole [Abilify] 2 mg PO HS 09/14/20 10/02/22 Venlafaxine HCl [Effexor XR] 225 mg PO HS 09/14/20 10/02/22 Erenumab-Aooe [Aimovig 140 mg SQ Q30D 09/22/20 10/02/22 Autoinjector] HYDROcodone/APAP 7.5-325MG [[place] 1 tab PO BID PRN 08/23/21 10/02/22 7.5-325] Atogepant [Qulipta] 60 mg PO HS 11/28/21 10/02/22 Bzrtemrtpabapq-PL-Insgewhdqn 1 tab PO DAILY 12/12/21 10/02/22 [Folbic] Ferrous Sulfate [Iron (65 MG 325 mg PO DAILY 12/12/21 10/02/22 Elemental)] Nystatin 100,000 Unit/gm Powd 1 applic TOPICAL BID PRN 12/12/21 10/02/22 [Mycostatin Powder] Nystatin/Triamcin 1 applic TOPICAL BID PRN 12/12/21 10/02/22 [Nystatin-Triamcinolone Cream] Cyclobenzaprine [Flexeril] 10 mg PO DAILY PRN 01/06/22 10/02/22 Butalb/Acetaminophen/Caffeine 1 tab PO Q6H PRN 05/19/22 10/02/22 [Fioricet 50-325-40] Ergocalciferol (Vitamin D2) 1,250 mcg PO GARCIA 05/19/22 10/02/22 [Drisdol (50,000 Iu)] Fluconazole 200 mg PO GARCIA 05/19/22 10/02/22 rOPINIRole HCL [Requip] 3 mg PO HS 05/19/22 10/02/22 Acetaminophen Tab [Tylenol] 650 mg PO Q6H PRN 10/02/22 10/02/22 Lasmiditan Succinate [Reyvow] 50 mg PO DAILY PRN 10/02/22 10/02/22 Metoclopramide [Reglan] 10 mg PO DAILY PRN 10/02/22 10/02/22 Semaglutide [Wegovy] 1 mg SQ GARCIA 10/02/22 10/02/22 Previous Rx's Medication Instructions Recorded Ibuprofen [Motrin] 600 mg PO Q6HR PRN #40 tab 07/11/22 Allergies Allergy/AdvReac Type Severity Reaction Status Date / Time codeine AdvReac Hallucinati Verified 10/05/22 18:39 ons tramadol AdvReac Hallucinati Verified 10/05/22 18:39 ons valacyclovir HCl AdvReac BLURRED Verified 10/05/22 18:39 [From Valtrex] VISION Review of Systems ROS Statement: Those systems with pertinent positive or pertinent negative responses have been documented in the HPI. ROS Other: All systems not noted in ROS Statement are negative. Past Medical History Past Medical History: Asthma, Diabetes Mellitus, Fibromyalgia, GERD/Reflux, Sleep Apnea/CPAP/BIPAP, Thyroid Disorder Additional Past Medical History / Comment(s): Migraines with aura, DDD, NIDDM type II, diverticulitis with perforation/colostomy since reversed, IBS, chronic seroma, CARLITOS/no device, polycystic ovaries, hypothyroid, season allergies History of Any Multi-Drug Resistant Organisms: None Reported Past Surgical History: Bariatric Surgery, Cholecystectomy, Uterine Ablation Additional Past Surgical History / Comment(s): 06/06/21 sleeve gastrectomy, rt Breast biopsy. bowel resection with colostomy/ later colostomy reversal, abdominal surgery to remove scar tissue, EGD, colonoscopy, back pain procedures uterine ablation, lysis of adhesions 07/11/22 Past Anesthesia/Blood Transfusion Reactions: No Reported Reaction Additional Past Anesthesia/Blood Transfusion Reaction / Comment(s): no hx blood transfusion, received monoclonal antibodies in Feb 2021 Past Psychological History: Anxiety, Bipolar, Depression Smoking Status: Never smoker Past Alcohol Use History: None Reported Past Drug Use History: None Reported - Past Family History Mother History Unknown: Yes Family Medical History: COPD Additional Family Medical History / Comment(s): Mother from COPD at the age of 55 yrs. Brother(s) Family Medical History: Diabetes Mellitus Father Family Medical History: Unable to Obtain General Exam Limitations: no limitations General appearance: alert, in no apparent distress Head exam: Present: atraumatic, normocephalic, normal inspection Eye exam: Present: normal appearance, PERRL, EOMI. Absent: scleral icterus, conjunctival injection, periorbital swelling ENT exam: Present: normal exam, mucous membranes moist Neck exam: Present: normal inspection. Absent: tenderness, meningismus, lymphadenopathy Respiratory exam: Present: normal lung sounds bilaterally. Absent: respiratory distress, wheezes, rales, rhonchi, stridor Cardiovascular Exam: Present: regular rate, normal rhythm, normal heart sounds. Absent: systolic murmur, diastolic murmur, rubs, gallop, clicks GI/Abdominal exam: Present: soft, normal bowel sounds. Absent: distended, tenderness, guarding, rebound, rigid Extremities exam: Present: normal inspection, full ROM, normal capillary refill. Absent: tenderness, pedal edema, joint swelling, calf tenderness Back exam: Present: normal inspection Neurological exam: Present: alert, oriented X3, CN II-XII intact Psychiatric exam: Present: normal affect, normal mood Skin exam: Present: warm, dry, intact, normal color. Absent: rash Course Vital Signs 09/29/22 09/29/22 09/29/22 14:10 18:24 18:25 Temperature 98.0 F 98.2 F 98.2 F Pulse Rate 88 83 71 Respiratory 20 14 14 Rate Blood Pressure 124/84 102/56 102/56 O2 Sat by Pulse 98 96 95 Oximetry - Reevaluation(s) Reevaluation #1: 09/29/22 20:34 Medical records reviewed Reevaluation #2: 09/29/22 20:34 Patient headache is improved here in the ER after second dosing of medication Reevaluation #3: 09/29/22 20:34 Patient informed of results questions answered Reevaluation #4: 09/29/22 20:34 Was pt. sent in by a medical professional or institution? @ -no Did you speak to anyone other than the patient for history? @ -no Did you review nursing and triage notes? @ -agree Were old charts reviewed? @ -no Differential Diagnosis? @ -prior EKG interpreted by me (3pts min.)? @ -no X-rays interpreted by me (1pt min.)? @ -no CT interpreted by me (1pt min.)? @ -no U/S interpreted by me (1pt. min.)? @ -no What testing was considered but not performed? (CT, X-rays, U/S, labs)? Why? @ -no What meds were considered but not given? Why? @ -no Did you discuss the management of the patient with other professionals? @ -no Did you reconcile home meds? @ -no Was smoking cessation discussed for >3mins.? @ -no Was critical care preformed (if so, how long)? @ -no Were there social determinants of health that impacted care today? How? (Homelessness, low income, unemployed, alcoholism, drug addiction, transportation, low edu. Level, literacy, decrease access to med. care, [place] [facility], rehab)? @ -no Was there de-escalation of care discussed even if they declined? (Discuss DNR or withdrawal of care, Hospice)? @ -no What co-morbidities impacted this encounter? (DM, HTN, Smoking, COPD, CAD, Cancer, CVA, Hep., AIDS, mental health diagnosis, sleep apnea, morbid obesity)? @ -none Was patient admitted / discharged? @ -37 female to the emergency department for evaluation of headache migraine headache which is normal for this patient. Headache is resolved and patient can be discharged home Discharge Undiagnosed new problem with uncertain prognosis? @ -no Drug Therapy requiring intensive monitoring for toxicity (Heparin, Nitro, Insulin, Cardizem)? @ -no Were any procedures done? @ -no Diagnosis/symptom? @ -Migraine headache Acute, or Chronic, or Acute on Chronic? @ -no Uncomplicated (without systemic symptoms) or Complicated (systemic symptoms)? @ -uncomplicated Side effects of treatment? @ -no Exacerbation, Progression, or Severe Exacerbation] @ -no Poses a threat to life or bodily function? @ -no Reevaluation #5: 09/29/22 20:34 Differential Headache: Migraine, tension, cluster, carbon monoxide, central venous thrombosis, pension karma temporal arteritis, acute closure glaucoma, intercranial hemorrhage, mastoiditis, sinusitis, head injury, this is not meant to be an all-inclusive list. Medical Decision Making - Medical Decision Making 37 female with a typical migraine headache we did do imaging and she states this headache is more persistent lately. No findings. Patient can be discharged home - Radiology Data Radiology results: report reviewed (CT brain is negative for acute disease), image reviewed Disposition Clinical Impression: Migraine headache Disposition: HOME SELF-CARE Condition: Good Instructions (If sedation given, give patient instructions): Acute Headache (ED) Is patient prescribed a controlled substance at d/c from ED?: No Referrals: Alfred Varela MD [Primary Care Provider] - 1-2 days Time of Disposition: 17:30
[2022-09-29] MEDS ORDERED: HYDROmorphone 1 MG/ML 1 ML SYRINGE IVP STA (17:42)
--- NOTE | 2022-09-29 17:43 | CT ---
EXAMINATION TYPE: CT brain wo con CT DLP: 1054.20 mGycm, Automated exposure control for dose reduction was used. DATE OF EXAM: 09/29/2022 5:11 PM COMPARISON: 09/10/2022. CLINICAL INDICATION:Female, 37 years old with history of oliva, headache TECHNIQUE: Brain: Axial CT images of the brain were obtained with coronal and sagittal reformats created and rev iewed. Contrast used: None. Oral contrast used: None. FINDINGS: Brain: Extra-axial spaces: No abnormal extra-axial fluid collections. Ventricular system: Within normal limits Cerebral parenchyma: No acute intraparenchymal hemorrhage or mass effect. The hicks-white junction is well differentiated. Cerebellum: Unremarkable. Mass effect: No evidence of midline shift. Intracranial vasculature: unremarkable Soft tissues: Normal. Calvarium/osseous structures: No depressed skull fracture. Paranasal sinuses and mastoid air cells: Mild scattered paranasal sinus disease. Visualized orbits: Orbital contents are intact. IMPRESSION: No acute intracranial process.
[2022-09-29 18:25] VITALS: BP 102/56; RESP 14; TEMP 98.2
[2022-09-29 18:27] VITALS: PULSE 71
== END 2022-09-29 18:33 | disposition home or self-care (01) ==
LOC: EC 14:02
DX: G43.909 Migraine, unspecified, not intractable, without status migrainosus (principal); E11.9 Type 2 diabetes mellitus without complications; F31.9 Bipolar disorder, unspecified; F41.9 Anxiety disorder, unspecified; G47.33 Obstructive sleep apnea (adult) (pediatric); J45.909 Unspecified asthma, uncomplicated; K21.9 Gastro-esophageal reflux disease without esophagitis; Z79.899 Other long term (current) drug therapy; Z79.890 Hormone replacement therapy; Z88.5 Allergy status to narcotic agent; Z88.8 Allergy status to other drugs, medicaments and biological substances; Z90.49 Acquired absence of other specified parts of digestive tract
CPT/HCPCS: 70450; 99284; 96365; 96375 ×4; 96361; J1200; J0780; J2930; J1170; J1885

== ENCOUNTER 2022-10-02 15:54 | Emergency (ER) | payer OTHER ==
[2022-10-02 16:09] VITALS: TEMP 98.8
[2022-10-02 19:52] LABS: Basophils # (A) 0.1 k/uL (0-0.2); Basophils % (A) 1 %; Eosinophils # (A) 0.1 k/uL (0-0.7); Eosinophils % (A) 1 %; HCT 46.5 % (34.0-46.0); Lymphocytes # (A) 3.1 k/uL (1.0-4.8); Lymphocytes % (A) 25 %; MCH 28.8 pg (25.0-35.0); MCHC 32.3 g/dL (31.0-37.0); MCV 89.3 fL (80.0-100.0); Mean Platelet Volume 7.1; Monocytes # (A) 0.6 k/uL (0-1.0); Monocytes % (A) 5 %; Neutrophils # (A) 8.3 k/uL (1.3-7.7); Neutrophils % (A) 67 %; Platelet Count 395 k/uL (150-450); RBC 5.21 m/uL (3.80-5.40); RDW 13.2 % (11.5-15.5); WBC 12.4 k/uL (3.8-10.6)
[2022-10-02 19:57] LABS: Partial Thromboplastin Time 24.7 sec (22.0-30.0); Prothrombin Time 10.5 sec (9.0-12.0)
[2022-10-02 19:58] LABS: ALT 30 U/L (4-34); AST 26 U/L (14-36); African American GFR (CKD) >90 (>60 ml/min/1.73 sqM); Albumin 4.3 g/dL (3.5-5.0); Alkaline Phosphatase 114 U/L (38-126); Anion Gap 9 mmol/L; Blood Urea Nitrogen 14 mg/dL (7-17); Carbon Dioxide 32 mmol/L (22-30); Chloride 100 mmol/L (98-107); Creatine Kinase 30 U/L (30-135); Glucose 89 mg/dL (74-99); Non-African American GFR(CKD) >90 (>60 ml/min/1.73 sqM); Potassium 4.5 mmol/L (3.5-5.1); Sodium 141 mmol/L (137-145); Total Bilirubin 0.3 mg/dL (0.2-1.3); Total Protein 7.3 g/dL (6.3-8.2)
[2022-10-02 20:01] LABS: Appearance,Urine Clear (Clear); Bacteria,Urine Few /hpf; Bilirubin,Urine Negative (Negative); Blood,Urine Negative (Negative); Color,Urine Yellow; Glucose,Urine (UA) Negative (Negative); Ketones,Urine Negative (Negative); Leukocyte Esterase,Urine Trace (Negative); Mucus,Urine Many /hpf; Nitrite,Urine Negative (Negative); PH, Urine 6.5 (5.0-8.0); Protein,Urine Trace (Negative); RBC,Urine 3 /hpf (0-5); Specific Gravity,Urine 1.026 (1.001-1.035); Squamous Epithelial Cell,Urine 1 /hpf (0-4); WBC,Urine 2 /hpf (0-5)
--- NOTE | 2022-10-02 20:02 | ED ---
General Adult HPI - General Source: patient, RN notes reviewed Mode of arrival: EMS Limitations: no limitations <Mirta Nava - Last Filed: 10/02/22 19:58> <Jordy Lopez - Last Filed: 10/02/22 21:41> - General Chief complaint: Neuro Symptoms/Deficit Stated complaint: SEV LT SIDE WEAKNESS Time Seen by Provider: 10/02/22 19:58 - History of Present Illness Initial comments: -year-old female presents the emergency department with a chief complaint of left arm numbness that started at approximately 2 PM. Denies any recent trauma or injury (Mirta Nava) 37-year-old female presenting with left arm numbness which she states began at 1 PM. Patient was in the waiting room for a prolonged period. She also complains of right numbness to the third and fourth digits on the right hand. She states she has had intermittent issues like this for many years and does follow closely with neurology. She states her left arm feels heavy but she is able to lift it. She does not have a significant headache but states that she had a headache 3 days ago when she was seen in the ER. She denies fever. Denies chest pain or abdominal pain. She states she has had workup in the past for MS and other neurological conditions and does follow closely with a neurologist as an outpatient regarding her symptoms. (Jordy Lopez) - Related Data Home Medications Medication Instructions Recorded Confirmed Levothyroxine Sodium [Synthroid] 50 mcg PO DAILY 05/05/14 08/22/22 Cetirizine HCl [Zyrtec] 10 mg PO DAILY 08/30/19 08/22/22 Pregabalin [Lyrica] 150 mg PO BID 08/30/19 08/22/22 ARIPiprazole [Abilify] 2 mg PO HS 09/14/20 08/22/22 Venlafaxine HCl [Effexor XR] 225 mg PO HS 09/14/20 08/22/22 Erenumab-Aooe [Aimovig 140 mg SQ Q30D 09/22/20 08/22/22 Autoinjector] HYDROcodone/APAP 7.5-325MG [[place] 1 tab PO BID PRN 08/23/21 08/22/22 7.5-325] Atogepant [Qulipta] 60 mg PO HS 11/28/21 08/22/22 Nuummfllqfjfnc-DB-Qthaqwoghq 1 tab PO DAILY 12/12/21 08/22/22 [Folbic] Ferrous Sulfate [Iron (65 MG 325 mg PO DAILY 12/12/21 08/22/22 Elemental)] Nystatin 100,000 Unit/gm Powd 1 applic TOPICAL BID PRN 12/12/21 08/22/22 [Mycostatin Powder] Nystatin/Triamcin 1 applic TOPICAL BID PRN 12/12/21 08/22/22 [Nystatin-Triamcinolone Cream] Cyclobenzaprine [Flexeril] 10 mg PO DAILY PRN 01/06/22 08/22/22 Butalb/Acetaminophen/Caffeine 1 tab PO Q6H PRN 05/19/22 08/22/22 [Fioricet 50-325-40] Ergocalciferol (Vitamin D2) 1,250 mcg PO Q7D 05/19/22 08/22/22 [Drisdol (50,000 Iu)] Fluconazole 200 mg PO GARCIA 05/19/22 08/22/22 rOPINIRole HCL [Requip] 3 mg PO HS 05/19/22 08/22/22 Semaglutide [Wegovy] 0.25 mg SQ Q7D 07/05/22 08/22/22 Previous Rx's Medication Instructions Recorded Metoclopramide [Reglan] 10 mg PO TID PRN #15 tab 04/19/22 Acetaminophen Tab [Tylenol] 650 mg PO Q6H #30 tab 07/11/22 Docusate [Colace] 100 mg PO BID #20 capsule 07/11/22 Ibuprofen [Motrin] 600 mg PO Q6HR PRN #40 tab 07/11/22 oxyCODONE HCL [OxyIR] 5 mg PO Q6H PRN 3 Days #10 tab 07/11/22 Allergies Allergy/AdvReac Type Severity Reaction Status Date / Time codeine AdvReac Hallucinati Verified 09/29/22 14:13 ons tramadol AdvReac Hallucinati Verified 09/29/22 14:13 ons valacyclovir HCl AdvReac BLURRED Verified 09/29/22 14:13 [From Valtrex] VISION Review of Systems ROS Other: All systems not noted in ROS Statement are negative. <Mirta Nava - Last Filed: 10/02/22 19:58> ROS Other: All systems not noted in ROS Statement are negative. <Jordy Lopez Tracey - Last Filed: 10/02/22 21:41> ROS Statement: Those systems with pertinent positive or pertinent negative responses have been documented in the HPI. Past Medical History Past Medical History: Asthma, Diabetes Mellitus, Fibromyalgia, GERD/Reflux, Sleep Apnea/CPAP/BIPAP, Thyroid Disorder Additional Past Medical History / Comment(s): Migraines with aura, DDD, NIDDM type II, diverticulitis with perforation/colostomy since reversed, IBS, chronic seroma, CARLITOS/no device, polycystic ovaries, hypothyroid, season allergies History of Any Multi-Drug Resistant Organisms: None Reported Past Surgical History: Bariatric Surgery, Cholecystectomy, Uterine Ablation Additional Past Surgical History / Comment(s): 06/06/21 sleeve gastrectomy, rt Breast biopsy. bowel resection with colostomy/ later colostomy reversal, abdominal surgery to remove scar tissue, EGD, colonoscopy, back pain procedures uterine ablation, lysis of adhesions 07/11/22 Past Anesthesia/Blood Transfusion Reactions: No Reported Reaction Additional Past Anesthesia/Blood Transfusion Reaction / Comment(s): no hx blood transfusion, received monoclonal antibodies in Feb 2021 Past Psychological History: Anxiety, Bipolar, Depression Smoking Status: Never smoker Past Alcohol Use History: None Reported Past Drug Use History: None Reported - Past Family History Mother History Unknown: Yes Family Medical History: COPD Additional Family Medical History / Comment(s): Mother from COPD at the age of 55 yrs. Brother(s) Family Medical History: Diabetes Mellitus Father Family Medical History: Unable to Obtain <Mirta Nava - Last Filed: 10/02/22 19:58> General Exam Limitations: no limitations <Mirta Nava - Last Filed: 10/02/22 19:58> General appearance: alert, in no apparent distress Head exam: Present: atraumatic, normocephalic Eye exam: Present: normal appearance, PERRL ENT exam: Present: normal exam Neck exam: Present: normal inspection. Absent: tenderness, meningismus Respiratory exam: Present: normal lung sounds bilaterally. Absent: respiratory distress, wheezes Cardiovascular Exam: Present: regular rate, normal rhythm GI/Abdominal exam: Present: soft. Absent: distended, tenderness, guarding Extremities exam: Present: normal inspection, normal capillary refill. Absent: pedal edema Neurological exam: Present: alert, oriented X3, CN II-XII intact, reflexes normal, other (5 out of 5 strength in all extremities. Normal speech) Psychiatric exam: Present: normal affect, normal mood Skin exam: Present: warm, dry, intact <Jordy Lopez - Last Filed: 10/02/22 21:41> - General Exam Comments Initial Comments: Visual Physical Exam Vital signs reviewed General: Well-appearing, nontoxic, no acute distress. Head: Normocephalic, atraumatic Eyes: PERRLA, EOMI ENT: Airway patent Chest: Nonlabored breathing Skin: No visual rash, normal skin tone Neuro: Alert and oriented 3 Musculoskeletal: No gross abnormalities (Mirta Nava) Course Vital Signs 10/02/22 16:05 Temperature 98.8 F Pulse Rate 102 H Respiratory 20 Rate Blood Pressure 156/97 O2 Sat by Pulse 96 Oximetry Medical Decision Making - Lab Data Result diagrams: 10/02/22 16:35 10/02/22 16:35 <Mirta Nava - Last Filed: 10/02/22 19:58> - Lab Data Result diagrams: 10/02/22 16:35 10/02/22 16:35 <Jordy Lopez - Last Filed: 10/02/22 21:41> - Medical Decision Making Was pt. sent in by a medical professional or institution (SOILA Carrera, PULP GRINDER, urgent care, hospital, or half-way...) When possible be specific @ -[No] Did you speak to anyone other than the patient for history (EMS, parent, family, police, friend...)? What history was obtained from this source @ -[No] Did you review nursing and triage notes (agree or disagree)? Why? @ -[I reviewed and agree with nursing and triage notes] Were old charts reviewed (outside hosp., previous admission, EMS record, old EKG, old radiological studies, urgent care reports/EKG's, half-way records)? Report findings @ Reviewed recent CT imaging of the brain Differential Diagnosis (chest pain, altered mental status, abdominal pain women, abdominal pain men, vaginal bleeding, weakness, fever, dyspnea, syncope, headache, dizziness, GI bleed, back pain, seizure, CVA, palpatations, mental health, musculoskeletal)? @ -[not applicable] EKG interpreted by me (3pts min.). @ -Interpreted by me, sinus rhythm, left axis, rate of 93, IA interval 158, QRS duration 92, QTC 367, no ST segment changes. X-rays interpreted by me (1pt min.). @ -[None done] CT interpreted by me (1pt min.). @ -[None done] U/S interpreted by me (1pt. min.). @ -[None done] What testing was considered but not performed or refused? (CT, X-rays, U/S, labs)? Why? @ -[None] What meds were considered but not given or refused? Why? @ -[None] Did you discuss the management of the patient with other professionals (professionals i.e. , PA, PULP GRINDER, lab, RT, psych nurse, community mental health social worker, guitar instructor, teacher, legal officer, rifle case repairer)? Give summary @ -[No] Was smoking cessation discussed for >3mins.? @ -[No] Was critical care preformed (if so, how long)? @ -[No] Were there social determinants of health that impacted care today? How? (Homele ssness, low income, unemployed, alcoholism, drug addiction, transportation, low edu. Level, literacy, decrease access to med. care, fdc, rehab)? @ -[No] Was there de-escalation of care discussed even if they declined (Discuss DNR or withdrawal of care, Hospice)? DNR status @ -[No] What co-morbidities impacted this encounter? (DM, HTN, Smoking, COPD, CAD, Cancer, CVA, ARF, Chemo, Hep., AIDS, mental health diagnosis, sleep apnea, morbid obesity)? @ -[None] Was patient admitted / discharged? Hospital course, mention meds given and route, prescriptions, significant lab abnormalities, going to OR and other pertinent info. @ -[hospital course] Undiagnosed new problem with uncertain prognosis? @ -[No] Drug Therapy requiring intensive monitoring for toxicity (Heparin, Nitro, Insulin, Cardizem)? @ -[No] Were any procedures done? @ -[No] Diagnosis/symptom? @ -[default] Acute, or Chronic, or Acute on Chronic? @ -[default] Uncomplicated (without systemic symptoms) or Complicated (systemic symptoms)? @ -[default] Side effects of treatment? @ -[No] Exacerbation, Progression, or Severe Exacerbation? @ -[No] Poses a threat to life or bodily function? How? (Chest pain, [place], [place], pneumonia, PE, COPD, DKA, ARF, appy, cholecystitis, CVA, Diverticulitis, Homicidal, Suicidal, threat to staff... and all critical care pts) @ -[No] (Jordy Lopez) - Lab Data Lab Results 10/02/22 10/02/22 10/02/22 Range/Units 16:35 16:35 16:35 WBC 12.4 H (3.8-10.6) k/uL RBC 5.21 (3.80-5.40) m/uL Hgb 15.0 (11.4-16.0) gm/dL Hct 46.5 H (34.0-46.0) % MCV 89.3 (80.0-100.0) fL MCH 28.8 (25.0-35.0) pg MCHC 32.3 (31.0-37.0) g/dL RDW 13.2 (11.5-15.5) % Plt Count 395 (150-450) k/uL MPV 7.1 Neutrophils % 67 % Lymphocytes % 25 % Monocytes % 5 % Eosinophils % 1 % Basophils % 1 % Neutrophils # 8.3 H (1.3-7.7) k/uL Lymphocytes # 3.1 (1.0-4.8) k/uL Monocytes # 0.6 (0-1.0) k/uL Eosinophils # 0.1 (0-0.7) k/uL Basophils # 0.1 (0-0.2) k/uL PT 10.5 (9.0-12.0) sec INR 1.0 (<1.2) APTT 24.7 (22.0-30.0) sec Sodium (137-145) mmol/L Potassium (3.5-5.1) mmol/L Chloride (98-107) mmol/L Carbon Dioxide (22-30) mmol/L Anion Gap mmol/L BUN (7-17) mg/dL Creatinine (0.52-1.04) mg/dL Est GFR (CKD-EPI)AfAm (>60 ml/min/1.73 sqM) Est GFR (CKD-EPI)NonAf (>60 ml/min/1.73 sqM) Glucose (74-99) mg/dL Calcium (8.4-10.2) mg/dL Total Bilirubin (0.2-1.3) mg/dL AST (14-36) U/L ALT (4-34) U/L Alkaline Phosphatase (38-126) U/L Creatine Kinase (30-135) U/L Troponin I (0.000-0.034) ng/mL Total Protein (6.3-8.2) g/dL Albumin (3.5-5.0) g/dL Urine Color Yellow Urine Appearance Clear (Clear) Urine pH 6.5 (5.0-8.0) Ur Specific [place] 1.026 (1.001-1.035) Urine Protein Trace H (Negative) Urine Glucose (UA) Negative (Negative) Urine Ketones Negative (Negative) Urine Blood Negative (Negative) Urine Nitrite Negative (Negative) Urine Bilirubin Negative (Negative) Urine Urobilinogen 3.0 (<2.0) mg/dL Ur Leukocyte Esterase Trace H (Negative) Urine RBC 3 (0-5) /hpf Urine WBC 2 (0-5) /hpf Ur Squamous Epith Cells 1 (0-4) /hpf Urine Bacteria Few H (None) /hpf Urine Mucus Many H (None) /hpf Urine HCG, Qual (Not Detectd) 10/02/22 10/02/22 10/02/22 Range/Units 16:35 16:35 16:35 WBC (3.8-10.6) k/uL RBC (3.80-5.40) m/uL Hgb (11.4-16.0) gm/dL Hct (34.0-46.0) % MCV (80.0-100.0) fL MCH (25.0-35.0) pg MCHC (31.0-37.0) g/dL RDW (11.5-15.5) % Plt Count (150-450) k/uL MPV Neutrophils % % Lymphocytes % % Monocytes % % Eosinophils % % Basophils % % Neutrophils # (1.3-7.7) k/uL Lymphocytes # (1.0-4.8) k/uL Monocytes # (0-1.0) k/uL Eosinophils # (0-0.7) k/uL Basophils # (0-0.2) k/uL PT (9.0-12.0) sec INR (<1.2) APTT (22.0-30.0) sec Sodium 141 (137-145) mmol/L Potassium 4.5 (3.5-5.1) mmol/L Chloride 100 (98-107) mmol/L Carbon Dioxide 32 H (22-30) mmol/L Anion Gap 9 mmol/L BUN 14 (7-17) mg/dL Creatinine 0.68 (0.52-1.04) mg/dL Est GFR (CKD-EPI)AfAm >90 (>60 ml/min/1.73 sqM) Est GFR (CKD-EPI)NonAf >90 (>60 ml/min/1.73 sqM) Glucose 89 (74-99) mg/dL Calcium 10.0 (8.4-10.2) mg/dL Total Bilirubin 0.3 (0.2-1.3) mg/dL AST 26 (14-36) U/L ALT 30 (4-34) U/L Alkaline Phosphatase 114 (38-126) U/L Creatine Kinase 30 (30-135) U/L Troponin I <0.012 (0.000-0.034) ng/mL Total Protein 7.3 (6.3-8.2) g/dL Albumin 4.3 (3.5-5.0) g/dL Urine Color Urine Appearance (Clear) Urine pH (5.0-8.0) Ur Specific [place] (1.001-1.035) Urine Protein (Negative) Urine Glucose (UA) (Negative) Urine Ketones (Negative) Urine Blood (Negative) Urine Nitrite (Negative) Urine Bilirubin (Negative) Urine Urobilinogen (<2.0) mg/dL Ur Leukocyte Esterase (Negative) Urine RBC (0-5) /hpf Urine WBC (0-5) /hpf Ur Squamous Epith Cells (0-4) /hpf Urine Bacteria (None) /hpf Urine Mucus (None) /hpf Urine HCG, Qual Not Detected (Not Detectd) Disposition <Mirta Nava - Last Filed: 10/02/22 19:58> Is patient prescribed a controlled substance at d/c from ED?: No <Jordy Lopez Tracey - Last Filed: 10/02/22 21:41> Clinical Impression: Left arm numbness Disposition: HOME SELF-CARE Condition: Fair Instructions (If sedation given, give patient instructions): Paresthesia (ED) Referrals: Alfred Varela MD [Primary Care Provider] - 1-2 days Thomas Azar MD [Medical Doctor] - 1-2 days
[2022-10-02 22:14] VITALS: BP 119/95; PULSE 72; RESP 18
== END 2022-10-02 22:17 | disposition home or self-care (01) ==
LOC: EC 15:54
DX: R20.0 Anesthesia of skin (principal); E11.9 Type 2 diabetes mellitus without complications; F31.9 Bipolar disorder, unspecified; F41.9 Anxiety disorder, unspecified; G47.33 Obstructive sleep apnea (adult) (pediatric); J45.909 Unspecified asthma, uncomplicated; K21.9 Gastro-esophageal reflux disease without esophagitis; E07.9 Disorder of thyroid, unspecified; Z79.890 Hormone replacement therapy; Z79.899 Other long term (current) drug therapy; Z88.5 Allergy status to narcotic agent; Z88.8 Allergy status to other drugs, medicaments and biological substances; Z90.49 Acquired absence of other specified parts of digestive tract
CPT/HCPCS: 36415; 80053; 81001; 81025; 82550; 84484; 85025; 85610; 85730; 93005; 99283

== ENCOUNTER 2022-10-05 18:21 | Emergency (ER) | payer OTHER ==
[2022-10-05] MEDS ORDERED: diphenhydrAMINE 50 MG/ML 1 ML VIAL IVP STA (18:54)
[2022-10-05] MEDS ORDERED: METOCLOPRAMIDE 5 MG/ML 2 ML VIAL IVP STA (18:54)
[2022-10-05] MEDS ORDERED: SODIUM CHLORIDE 0.9% 1,000 ML IV STA (18:54)
[2022-10-05] MEDS ORDERED: DEXAMETHASONE SOD PHOSPHATE 10 MG/ML 1 ML VIAL IVP STA (18:54)
[2022-10-05] MEDS ORDERED: KETOROLAC 15 MG/ML 1 ML VIAL IVP STA (18:54)
--- NOTE | 2022-10-05 20:22 | ED ---
Headache HPI - General Chief Complaint: Headache Stated Complaint: migraine,Stutter Time Seen by Provider: 10/05/22 18:54 Mode of arrival: ambulatory Limitations: no limitations - History of Present Illness Initial Comments: Patient is a 37-year-old female who presents to the emergency department for migraine. Patient has history of migraine states this feels similar. She is w ell known in our emergency department presents often for migraine. Patient does have a stutter which is typical of her migraines. She denies weakness, fever, chills, upper respiratory symptoms, chest pain, shortness of breath. - Related Data Home Medications Medication Instructions Recorded Confirmed Levothyroxine Sodium [Synthroid] 50 mcg PO DAILY 05/05/14 10/02/22 Cetirizine HCl [Zyrtec] 10 mg PO DAILY 08/30/19 10/02/22 Pregabalin [Lyrica] 150 mg PO BID 08/30/19 10/02/22 ARIPiprazole [Abilify] 2 mg PO HS 09/14/20 10/02/22 Venlafaxine HCl [Effexor XR] 225 mg PO HS 09/14/20 10/02/22 Erenumab-Aooe [Aimovig 140 mg SQ Q30D 09/22/20 10/02/22 Autoinjector] HYDROcodone/APAP 7.5-325MG [[place] 1 tab PO BID PRN 08/23/21 10/02/22 7.5-325] Atogepant [Qulipta] 60 mg PO HS 11/28/21 10/02/22 Mfntoktcxeqdyo-FB-Efsqywjdsy 1 tab PO DAILY 12/12/21 10/02/22 [Folbic] Ferrous Sulfate [Iron (65 MG 325 mg PO DAILY 12/12/21 10/02/22 Elemental)] Nystatin 100,000 Unit/gm Powd 1 applic TOPICAL BID PRN 12/12/21 10/02/22 [Mycostatin Powder] Nystatin/Triamcin 1 applic TOPICAL BID PRN 12/12/21 10/02/22 [Nystatin-Triamcinolone Cream] Cyclobenzaprine [Flexeril] 10 mg PO DAILY PRN 01/06/22 10/02/22 Butalb/Acetaminophen/Caffeine 1 tab PO Q6H PRN 05/19/22 10/02/22 [Fioricet 50-325-40] Ergocalciferol (Vitamin D2) 1,250 mcg PO GARCIA 05/19/22 10/02/22 [Drisdol (50,000 Iu)] Fluconazole 200 mg PO GARCIA 05/19/22 10/02/22 rOPINIRole HCL [Requip] 3 mg PO HS 05/19/22 10/02/22 Acetaminophen Tab [Tylenol] 650 mg PO Q6H PRN 10/02/22 10/02/22 Lasmiditan Succinate [Reyvow] 50 mg PO DAILY PRN 10/02/22 10/02/22 Metoclopramide [Reglan] 10 mg PO DAILY PRN 10/02/22 10/02/22 Semaglutide [Wegovy] 1 mg SQ GARCIA 10/02/22 10/02/22 Previous Rx's Medication Instructions Recorded Ibuprofen [Motrin] 600 mg PO Q6HR PRN #40 tab 07/11/22 Allergies Allergy/AdvReac Type Severity Reaction Status Date / Time codeine AdvReac Hallucinati Verified 10/05/22 18:39 ons tramadol AdvReac Hallucinati Verified 10/05/22 18:39 ons valacyclovir HCl AdvReac BLURRED Verified 10/05/22 18:39 [From Valtrex] VISION Review of Systems ROS Statement: Those systems with pertinent positive or pertinent negative responses have been documented in the HPI. ROS Other: All systems not noted in ROS Statement are negative. Past Medical History Past Medical History: Asthma, Diabetes Mellitus, Fibromyalgia, GERD/Reflux, Sleep Apnea/CPAP/BIPAP, Thyroid Disorder Additional Past Medical History / Comment(s): Migraines with aura, DDD, NIDDM type II, diverticulitis with perforation/colostomy since reversed, IBS, chronic seroma, CARLITOS/no device, polycystic ovaries, hypothyroid, season allergies History of Any Multi-Drug Resistant Organisms: None Reported Past Surgical History: Bariatric Surgery, Cholecystectomy, Uterine Ablation Additional Past Surgical History / Comment(s): 06/06/21 sleeve gastrectomy, rt Breast biopsy. bowel resection with colostomy/ later colostomy reversal, abdominal surgery to remove scar tissue, EGD, colonoscopy, back pain procedures uterine ablation, lysis of adhesions 07/11/22 Past Anesthesia/Blood Transfusion Reactions: No Reported Reaction Additional Past Anesthesia/Blood Transfusion Reaction / Comment(s): no hx blood transfusion, received monoclonal antibodies in Feb 2021 Past Psychological History: Anxiety, Bipolar, Depression Smoking Status: Never smoker Past Alcohol Use History: None Reported Past Drug Use History: None Reported - Past Family History Mother History Unknown: Yes Family Medical History: COPD Additional Family Medical History / Comment(s): Mother from COPD at the age of 55 yrs. Brother(s) Family Medical History: Diabetes Mellitus Father Family Medical History: Unable to Obtain General Exam Limitations: no limitations General appearance: alert, in no apparent distress, other (stutter no slurring ) Head exam: Present: atraumatic, normocephalic, normal inspection Eye exam: Present: normal appearance, PERRL, EOMI. Absent: scleral icterus, conjunctival injection, periorbital swelling Respiratory exam: Present: normal lung sounds bilaterally. Absent: respiratory distress, wheezes, rales, rhonchi, stridor Cardiovascular Exam: Present: regular rate, normal rhythm, normal heart sounds. Absent: systolic murmur, diastolic murmur, rubs, gallop, clicks Neurological exam: Present: alert, oriented X3, CN II-XII intact Expanded Speech: Present: fluid speech Cranial nerves: EOM's Intact: Normal, Facial Sensation: Normal, Facial Palsy with Forehead Movement: Normal, Facial Palsy without Forehead Movement: Normal Cerebellar function: Finger to Nose: Normal, Heel to [place]: Normal Sensory exam: Upper Extremity Light Touch: Normal, Lower Extremity Light Touch: Normal Motor strength exam: RUE: 5, LUE: 5, RLE: 5, LLE: 5 Psychiatric exam: Present: normal affect, normal mood Skin exam: Present: warm, dry, intact, normal color. Absent: rash Course Vital Signs 10/05/22 10/05/22 18:34 21:40 Temperature 98.3 F 97.8 F Pulse Rate 80 71 Respiratory 18 14 Rate Blood Pressure 160/96 127/79 O2 Sat by Pulse 99 100 Oximetry Medical Decision Making - Medical Decision Making Was pt. sent in by a medical professional or institution (, PA, BB SHOT PACKER, urgent care, hospital, or fci...) When possible be specific @ -No Did you speak to anyone other than the patient for history (EMS, parent, family, police, friend...)? What history was obtained from this source @ -No Did you review nursing and triage notes (agree or disagree)? Why? @ -I reviewed and agree with nursing and triage notes Were old charts reviewed (outside hosp., previous admission, EMS record, old EKG, old radiological studies, urgent care reports/EKG's, fci records)? Report findings @ -No old charts were reviewed Differential Diagnosis (chest pain, altered mental status, abdominal pain women, abdominal pain men, vaginal bleeding, weakness, fever, dyspnea, syncope, headache, dizziness, GI bleed, back pain, seizure, CVA, palpatations, mental health)? @ -Differential Headache: Migraine, tension, cluster, carbon monoxide, central venous thrombosis, pension karma temporal arteritis, acute closure glaucoma, intercranial hemorrhage, mastoiditis, sinusitis, head injury, this is not meant to be an all-inclusive list. EKG interpreted by me (3pts min.). @ -As above X-rays interpreted by me (1pt min.). @ -None done CT interpreted by me (1pt min.). @ -None done U/S interpreted by me (1pt. min.). @ -None done What testing was considered but not performed or refused? (CT, X-rays, U/S, labs)? Why? @ -None What meds were considered but not given or refused? Why? @ -None Did you discuss the management of the patient with other professionals (professionals i.e. , PA, BB SHOT PACKER, lab, RT, psych nurse, high school social studies tutor, rn emergency room, teacher, air antisubmarine officer, rn case manager hospice)? Give summary @ -No Was smoking cessation discussed for >3mins.? @ -No Was critical care preformed (if so, how long)? @ -No Were there social determinants of health that impacted care today? How? (Homelessness, low income, unemployed, alcoholism, drug addiction, transportation, low edu. Level, literacy, decrease access to med. care, skilled nursing, rehab)? @ -No Was there de-escalation of care discussed even if they declined (Discuss DNR or withdrawal of care, Hospice)? DNR status @ -No What co-morbidities impacted this encounter? (DM, HTN, Smoking, COPD, CAD, Cancer, CVA, ARF, Chemo, Hep., AIDS, mental health diagnosis, sleep apnea, morbid obesity)? @ -Migraine Was patient admitted / discharged? Hospital course, mention meds given and route, prescriptions, significant lab abnormalities, going to OR and other pertinent info. @ -Discharged. Patient has migraine without neurological deficit on exam. She was given migraine cocktail with some relief however asking for stronger pain medication. I declined as narcotics have addictive properties and patient needs to follow-up with her neurologist for management of her migraines Undiagnosed new problem with uncertain prognosis? @ -No Drug Therapy requiring intensive monitoring for toxicity (Heparin, Nitro, Insulin, Cardizem)? @ -No Were any procedures done? @ -No Diagnosis/symptom? @ -Migraine Acute, or Chronic, or Acute on Chronic? @ -acute on chronic Uncomplicated (without systemic symptoms) or Complicated (systemic symptoms)? @ -uncomplicated Side effects of treatment? @ -No Exacerbation, Progression, or Severe Exacerbation? @ -No Poses a threat to life or bodily function? How? (Chest pain, [place], [place], pneumonia, PE, COPD, DKA, ARF, appy, cholecystitis, CVA, Diverticulitis, Homicidal, Suicidal, threat to staff... and all critical care pts) @ -No Dr. Botello is my attending Disposition Clinical Impression: Migraine Disposition: HOME SELF-CARE Condition: Good Instructions (If sedation given, give patient instructions): Acute Headache (ED) Additional Instructions: Take medication as directed. Please follow-up with her neurologist in 1-2 days. Return to the emergency department if you experience new, concerning, or worsening symptoms. Is patient prescribed a controlled substance at d/c from ED?: No Referrals: Alfred Varlea MD [Primary Care Provider] - 1-2 days
[2022-10-05 21:41] VITALS: BP 127/79; PULSE 71; RESP 14; TEMP 97.8
== END 2022-10-05 21:41 | disposition home or self-care (01) ==
LOC: EC 18:21
DX: G43.909 Migraine, unspecified, not intractable, without status migrainosus (principal); E11.9 Type 2 diabetes mellitus without complications; F31.9 Bipolar disorder, unspecified; F41.9 Anxiety disorder, unspecified; G47.33 Obstructive sleep apnea (adult) (pediatric); J45.909 Unspecified asthma, uncomplicated; K21.9 Gastro-esophageal reflux disease without esophagitis; E07.9 Disorder of thyroid, unspecified; Z79.890 Hormone replacement therapy; Z79.899 Other long term (current) drug therapy; Z88.5 Allergy status to narcotic agent; Z88.8 Allergy status to other drugs, medicaments and biological substances; Z90.49 Acquired absence of other specified parts of digestive tract
CPT/HCPCS: 99283; 96374; 96375 ×3; 96361; J1200; J1100; J2765; J1885

== ENCOUNTER 2022-10-14 19:51 | Emergency (ER) | payer OTHER ==
[2022-10-14 19:57] VITALS: TEMP 98.1
[2022-10-14] MEDS ORDERED: SODIUM CHLORIDE 0.9% 1,000 ML IV STA (20:42)
[2022-10-14] MEDS ORDERED: KETOROLAC 15 MG/ML 1 ML VIAL IVP STA (20:42)
[2022-10-14] MEDS ORDERED: ONDANSETRON 4 MG/2 ML VIAL IVP STA (20:42)
[2022-10-14] MEDS ORDERED: ONDANSETRON ODT 4 MG TAB PO STA (21:21)
[2022-10-14] MEDS ORDERED: KETOROLAC 15 MG/ML 1 ML VIAL IM STA (21:21)
[2022-10-14] MEDS ORDERED: LIDOCAINE 5% PATCH TOPICAL STA (21:23)
[2022-10-14 21:43] LABS: Basophils # (A) 0.1 k/uL (0-0.2); Basophils % (A) 1 %; Eosinophils # (A) 0.1 k/uL (0-0.7); Eosinophils % (A) 1 %; HCT 42.2 % (34.0-46.0); HGB 13.9 gm/dL (11.4-16.0); Lymphocytes # (A) 2.7 k/uL (1.0-4.8); Lymphocytes % (A) 23 %; MCH 29.1 pg (25.0-35.0); MCHC 32.8 g/dL (31.0-37.0); MCV 88.7 fL (80.0-100.0); Mean Platelet Volume 7.5; Monocytes # (A) 0.7 k/uL (0-1.0); Monocytes % (A) 6 %; Neutrophils # (A) 8.3 k/uL (1.3-7.7); Neutrophils % (A) 70 %; Platelet Count 303 k/uL (150-450); RBC 4.76 m/uL (3.80-5.40); RDW 13.1 % (11.5-15.5); WBC 11.9 k/uL (3.8-10.6)
[2022-10-14 21:53] LABS: ALT 38 U/L (4-34); AST 34 U/L (14-36); African American GFR (CKD) >90 (>60 ml/min/1.73 sqM); Albumin 3.7 g/dL (3.5-5.0); Alkaline Phosphatase 108 U/L (38-126); Anion Gap 7 mmol/L; Blood Urea Nitrogen 17 mg/dL (7-17); Carbon Dioxide 28 mmol/L (22-30); Chloride 103 mmol/L (98-107); Glucose 103 mg/dL (74-99); Lipase 267 U/L (23-300); Non-African American GFR(CKD) >90 (>60 ml/min/1.73 sqM); Potassium 4.3 mmol/L (3.5-5.1); Sodium 138 mmol/L (137-145); Total Bilirubin 0.4 mg/dL (0.2-1.3); Total Protein 6.6 g/dL (6.3-8.2)
[2022-10-14 22:04] LABS: Appearance,Urine Cloudy (Clear); Bilirubin,Urine Negative (Negative); Blood,Urine Negative (Negative); Color,Urine Yellow; Glucose,Urine (UA) Negative (Negative); Ketones,Urine Negative (Negative); Leukocyte Esterase,Urine Trace (Negative); Mucus,Urine Many /hpf; Nitrite,Urine Negative (Negative); PH, Urine 6.5 (5.0-8.0); Protein,Urine 1+ (Negative); RBC,Urine 3 /hpf (0-5); Specific Gravity,Urine 1.033 (1.001-1.035); Squamous Epithelial Cell,Urine 2 /hpf (0-4); WBC,Urine 3 /hpf (0-5)
[2022-10-14 22:16] VITALS: BP 118/82; PULSE 78; RESP 18
--- NOTE | 2022-10-14 22:17 | ED ---
Abdominal Pain HPI - General Chief Complaint: Abdominal Pain Stated Complaint: Abd pain, vomiting Time Seen by Provider: 10/14/22 20:41 Source: patient Mode of arrival: ambulatory Limitations: no limitations - History of Present Illness Initial Comments: Patient is a 37-year-old female presents to the emergency department for abdominal pain. Patient has history of chronic abdominal pain she presents to the emergency department often for this complaint. States this morning she was turning her torso when she stretched her left side of her abdomen causing pain. Patient has mild pain in the left abdomen which is worse with movement. She reports nausea with one episode of vomiting. She denies fever, chills, diarrhea, constipation, blood in stool, burning with urination, blood in urine, vaginal discharge. She has history of bariatric surgery, cholecystectomy, lysis of adhesions, - Related Data Home Medications Medication Instructions Recorded Confirmed Levothyroxine Sodium [Synthroid] 50 mcg PO DAILY 05/05/14 10/02/22 Cetirizine HCl [Zyrtec] 10 mg PO DAILY 08/30/19 10/02/22 Pregabalin [Lyrica] 150 mg PO BID 08/30/19 10/02/22 ARIPiprazole [Abilify] 2 mg PO HS 09/14/20 10/02/22 Venlafaxine HCl [Effexor XR] 225 mg PO HS 09/14/20 10/02/22 Erenumab-Aooe [Aimovig 140 mg SQ Q30D 09/22/20 10/02/22 Autoinjector] HYDROcodone/APAP 7.5-325MG [[place] 1 tab PO BID PRN 08/23/21 10/02/22 7.5-325] Atogepant [Qulipta] 60 mg PO HS 11/28/21 10/02/22 Pofjlebnqyvzek-AX-Lnlanimrml 1 tab PO DAILY 12/12/21 10/02/22 [Folbic] Ferrous Sulfate [Iron (65 MG 325 mg PO DAILY 12/12/21 10/02/22 Elemental)] Nystatin 100,000 Unit/gm Powd 1 applic TOPICAL BID PRN 12/12/21 10/02/22 [Mycostatin Powder] Nystatin/Triamcin 1 applic TOPICAL BID PRN 12/12/21 10/02/22 [Nystatin-Triamcinolone Cream] Cyclobenzaprine [Flexeril] 10 mg PO DAILY PRN 01/06/22 10/02/22 Butalb/Acetaminophen/Caffeine 1 tab PO Q6H PRN 05/19/22 10/02/22 [Fioricet 50-325-40] Ergocalciferol (Vitamin D2) 1,250 mcg PO GARCIA 05/19/22 10/02/22 [Drisdol (50,000 Iu)] Fluconazole 200 mg PO GARCIA 05/19/22 10/02/22 rOPINIRole HCL [Requip] 3 mg PO HS 05/19/22 10/02/22 Acetaminophen Tab [Tylenol] 650 mg PO Q6H PRN 10/02/22 10/02/22 Lasmiditan Succinate [Reyvow] 50 mg PO DAILY PRN 10/02/22 10/02/22 Metoclopramide [Reglan] 10 mg PO DAILY PRN 10/02/22 10/02/22 Semaglutide [Wegovy] 1 mg SQ GARCIA 10/02/22 10/02/22 Previous Rx's Medication Instructions Recorded Ibuprofen [Motrin] 600 mg PO Q6HR PRN #40 tab 07/11/22 Ibuprofen [Motrin] 800 mg PO Q8HR PRN #30 tab 10/14/22 Lidocaine 5% Patch [Lidoderm 5% 1 patch TOPICAL DAILY PRN #7 patch 10/14/22 Patch] Ondansetron Odt [Zofran Odt] 4 mg PO Q8HR PRN #10 tab 10/14/22 Allergies Allergy/AdvReac Type Severity Reaction Status Date / Time codeine AdvReac Hallucinati Verified 10/14/22 19:55 ons tramadol AdvReac Hallucinati Verified 10/14/22 19:55 ons valacyclovir HCl AdvReac BLURRED Verified 10/14/22 19:55 [From Valtrex] VISION Review of Systems ROS Statement: Those systems with pertinent positive or pertinent negative responses have been documented in the HPI. ROS Other: All systems not noted in ROS Statement are negative. Past Medical History Past Medical History: Asthma, Diabetes Mellitus, Fibromyalgia, GERD/Reflux, Sleep Apnea/CPAP/BIPAP, Thyroid Disorder Additional Past Medical History / Comment(s): Migraines with aura, DDD, NIDDM type II, diverticulitis with perforation/colostomy since reversed, IBS, chronic seroma, CARLITOS/no device, polycystic ovaries, hypothyroid, season allergies History of Any Multi-Drug Resistant Organisms: None Reported Past Surgical History: Bariatric Surgery, Cholecystectomy, Uterine Ablation Additional Past Surgical History / Comment(s): 06/06/21 sleeve gastrectomy, rt Breast biopsy. bowel resection with colostomy/ later colostomy reversal, abdominal surgery to remove scar tissue, EGD, colonoscopy, back pain procedures uterine ablation, lysis of adhesions 07/11/22 Past Anesthesia/Blood Transfusion Reactions: No Reported Reaction Additional Past Anesthesia/Blood Transfusion Reaction / Comment(s): no hx blood transfusion, received monoclonal antibodies in Feb 2021 Past Psychological History: Anxiety, Bipolar, Depression Smoking Status: Never smoker Past Alcohol Use History: None Reported Past Drug Use History: None Reported - Past Family History Mother History Unknown: Yes Family Medical History: COPD Additional Family Medical History / Comment(s): Mother from COPD at the age of 55 yrs. Brother(s) Family Medical History: Diabetes Mellitus Father Family Medical History: Unable to Obtain General Exam Limitations: no limitations General appearance: alert, in no apparent distress Eye exam: Present: normal appearance, PERRL, EOMI. Absent: scleral icterus, conjunctival injection, periorbital swelling Respiratory exam: Present: normal lung sounds bilaterally. Absent: respiratory distress, wheezes, rales, rhonchi, stridor Cardiovascular Exam: Present: regular rate, normal rhythm, normal heart sounds. Absent: systolic murmur, diastolic murmur, rubs, gallop, clicks GI/Abdominal exam: Present: soft, normal bowel sounds. Absent: distended, tenderness, guarding, rebound, rigid Neurological exam: Present: alert, oriented X3, CN II-XII intact Psychiatric exam: Present: normal affect, normal mood Skin exam: Present: warm, dry, intact, normal color. Absent: rash Course Vital Signs 10/14/22 10/14/22 19:55 22:15 Temperature 98.1 F Pulse Rate 74 78 Respiratory 16 18 Rate Blood Pressure 121/81 118/82 O2 Sat by Pulse 100 96 Oximetry Medical Decision Making - Medical Decision Making Was pt. sent in by a medical professional or institution (, PA, RN [employer], urgent care, hospital, or long-term...) When possible be specific @ -No Did you speak to anyone other than the patient for history (EMS, parent, family, police, friend...)? What history was obtained from this source @ -No Did you review nursing and triage notes (agree or disagree)? Why? @ -I reviewed and agree with nursing and triage notes Were old charts reviewed (outside hosp., previous admission, EMS record, old EKG, old radiological studies, urgent care reports/EKG's, long-term records)? Report findings @ -No old charts were reviewed Differential Diagnosis (chest pain, altered mental status, abdominal pain women, abdominal pain men, vaginal bleeding, weakness, fever, dyspnea, syncope, headache, dizziness, GI bleed, back pain, seizure, CVA, palpatations, mental he alth)? @ -Differential Abdominal Pain Women: Appendicitis, Cholecystitis, diverticulosis, ischemic bowel, pancreatitis, hepatitis, UTI, gastroenteritis, AAA, incarcerated hernia, bowel obstruction, constipation, inflammatory bowel, hepatitis, peptic ulcer disease, splenic infarction, perforated viscus, vulvitis, ovarian torsion, PID, kidney stone, placenta abruption, muscle strain this is not meant to be an all-inclusive list EKG interpreted by me (3pts min.). @ -As above X-rays interpreted by me (1pt min.). @ -None done CT interpreted by me (1pt min.). @ -None done U/S interpreted by me (1pt. min.). @ -None done What testing was considered but not performed or refused? (CT, X-rays, U/S, labs)? Why? @ -Considered imaging however clinical presentation more consistent with muscle strain What meds were considered but not given or refused? Why? @ -None Did you discuss the management of the patient with other professionals ( professionals i.e. , PA, RN [employer], lab, RT, psych nurse, clinical social work aide, spring machine operator, teacher, air crew officer, director of casework department)? Give summary @ -No Was smoking cessation discussed for >3mins.? @ -No] Was critical care preformed (if so, how long)? @ -[No] Were there social determinants of health that impacted care today? How? (Homelessness, low income, unemployed, alcoholism, drug addiction, [place] sportation, low edu. Level, literacy, decrease access to med. care, fdc, rehab)? @ -[No] Was there de-escalation of care discussed even if they declined (Discuss DNR or withdrawal of care, Hospice)? DNR status @ -[No] What co-morbidities impacted this encounter? (DM, HTN, Smoking, COPD, CAD, Cancer, CVA, ARF, Chemo, Hep., AIDS, mental health diagnosis, sleep apnea, morbid obesity)? @ -[None] Was patient admitted / discharged? Hospital course, mention meds given and route, prescriptions, significant lab abnormalities, going to OR and other pertinent info. @ -Discharged. Clinical presentation most consistent with muscle strain. Symptoms treated in the emergency Department patient is stable mental condition for discharge Undiagnosed new problem with uncertain prognosis? @ -[No] Drug Therapy requiring intensive monitoring for toxicity (Heparin, Nitro, Insulin, Cardizem)? @ -[No] Were any procedures done? @ -[No] Diagnosis/symptom? @ -muscle strain Acute, or Chronic, or Acute on Chronic? @ -acute Uncomplicated (without systemic symptoms) or Complicated (systemic symptoms)? @ -uncomplicated Side effects of treatment? @ -[No] Exacerbation, Progression, or Severe Exacerbation? @ -[No] Poses a threat to life or bodily function? How? (Chest pain, USA, SC, pneumonia, PE, COPD, DKA, ARF, appy, cholecystitis, CVA, Diverticulitis, Homicidal, Suicidal, threat to staff... and all critical care pts) @ -No Dr. Flores is my attending - Lab Data Result diagrams: 10/14/22 20:57 10/14/22 20:57 Lab Results 10/14/22 10/14/22 10/14/22 Range/Units 20:57 20:57 20:57 WBC 11.9 H (3.8-10.6) k/uL RBC 4.76 (3.80-5.40) m/uL Hgb 13.9 (11.4-16.0) gm/dL Hct 42.2 (34.0-46.0) % MCV 88.7 (80.0-100.0) fL MCH 29.1 (25.0-35.0) pg MCHC 32.8 (31.0-37.0) g/dL RDW 13.1 (11.5-15.5) % Plt Count 303 (150-450) k/uL MPV 7.5 Neutrophils % 70 % Lymphocytes % 23 % Monocytes % 6 % Eosinophils % 1 % Basophils % 1 % Neutrophils # 8.3 H (1.3-7.7) k/uL Lymphocytes # 2.7 (1.0-4.8) k/uL Monocytes # 0.7 (0-1.0) k/uL Eosinophils # 0.1 (0-0.7) k/uL Basophils # 0.1 (0-0.2) k/uL Sodium 138 (137-145) mmol/L Potassium 4.3 (3.5-5.1) mmol/L Chloride 103 (98-107) mmol/L Carbon Dioxide 28 (22-30) mmol/L Anion Gap 7 mmol/L BUN 17 (7-17) mg/dL Creatinine 0.66 (0.52-1.04) mg/dL Est GFR (CKD-EPI)AfAm >90 (>60 ml/min/1.73 sqM) Est GFR (CKD-EPI)NonAf >90 (>60 ml/min/1.73 sqM) Glucose 103 H (74-99) mg/dL Plasma Lactic Acid [place]ani (0.7-2.0) mmol/L Calcium 9.0 (8.4-10.2) mg/dL Total Bilirubin 0.4 (0.2-1.3) mg/dL AST 34 (14-36) U/L ALT 38 H (4-34) U/L Alkaline Phosphatase 108 (38-126) U/L Total Protein 6.6 (6.3-8.2) g/dL Albumin 3.7 (3.5-5.0) g/dL Lipase 267 (23-300) U/L Urine Color Yellow Urine Appearance Cloudy H (Clear) Urine pH 6.5 (5.0-8.0) Ur Specific [place] 1.033 (1.001-1.035) Urine Protein 1+ H (Negative) Urine Glucose (UA) Negative (Negative) Urine Ketones Negative (Negative) Urine Blood Negative (Negative) Urine Nitrite Negative (Negative) Urine Bilirubin Negative (Negative) Urine Urobilinogen 6.0 (<2.0) mg/dL Ur Leukocyte Esterase Trace H (Negative) Urine RBC 3 (0-5) /hpf Urine WBC 3 (0-5) /hpf Ur Squamous Epith Cells 2 (0-4) /hpf Urine Mucus Many H (None) /hpf 10/14/22 Range/Units 20:57 WBC (3.8-10.6) k/uL RBC (3.80-5.40) m/uL Hgb (11.4-16.0) gm/dL Hct (34.0-46.0) % MCV (80.0-100.0) fL MCH (25.0-35.0) pg MCHC (31.0-37.0) g/dL RDW (11.5-15.5) % Plt Count (150-450) k/uL MPV Neutrophils % % Lymphocytes % % Monocytes % % Eosinophils % % Basophils % % Neutrophils # (1.3-7.7) k/uL Lymphocytes # (1.0-4.8) k/uL Monocytes # (0-1.0) k/uL Eosinophils # (0-0.7) k/uL Basophils # (0-0.2) k/uL Sodium (137-145) mmol/L Potassium (3.5-5.1) mmol/L Chloride (98-107) mmol/L Carbon Dioxide (22-30) mmol/L Anion Gap mmol/L BUN (7-17) mg/dL Creatinine (0.52-1.04) mg/dL Est GFR (CKD-EPI)AfAm (>60 ml/min/1.73 sqM) Est GFR (CKD-EPI)NonAf (>60 ml/min/1.73 sqM) Glucose (74-99) mg/dL Plasma Lactic Acid Yobani 1.6 (0.7-2.0) mmol/L Calcium (8.4-10.2) mg/dL Total Bilirubin (0.2-1.3) mg/dL AST (14-36) U/L ALT (4-34) U/L Alkaline Phosphatase (38-126) U/L Total Protein (6.3-8.2) g/dL Albumin (3.5-5.0) g/dL Lipase (23-300) U/L Urine Color Urine Appearance (Clear) Urine pH (5.0-8.0) Ur Specific [place] (1.001-1.035) Urine Protein (Negative) Urine Glucose (UA) (Negative) Urine Ketones (Negative) Urine Blood (Negative) Urine Nitrite (Negative) Urine Bilirubin (Negative) Urine Urobilinogen (<2.0) mg/dL Ur Leukocyte Esterase (Negative) Urine RBC (0-5) /hpf Urine WBC (0-5) /hpf Ur Squamous Epith Cells (0-4) /hpf Urine Mucus (None) /hpf Disposition Clinical Impression: Muscle strain Disposition: HOME SELF-CARE Condition: Good Instructions (If sedation given, give patient instructions): Muscle Strain (ED) Additional Instructions: Take medication as directed. Apply warm compress. Follow-up with primary care provider in one to 2 days. Return to the emergency department if you experience new, concerning, or worsening symptoms. Prescriptions: Lidocaine 5% Patch [Lidoderm 5% Patch] 1 patch TOPICAL DAILY PRN #7 patch PRN Reason: Pain Ibuprofen [Motrin] 800 mg PO Q8HR PRN #30 tab PRN Reason: Pain Ondansetron Odt [Zofran Odt] 4 mg PO Q8HR PRN #10 tab PRN Reason: Nausea Is patient prescribed a controlled substance at d/c from ED?: No Referrals: Alfred Varela MD [Primary Care Provider] - 1-2 days
== END 2022-10-14 22:27 | disposition home or self-care (01) ==
LOC: EC 19:51
DX: S39.011A Strain of muscle, fascia and tendon of abdomen, initial encounter (principal); J45.909 Unspecified asthma, uncomplicated; E11.9 Type 2 diabetes mellitus without complications; K21.9 Gastro-esophageal reflux disease without esophagitis; E07.9 Disorder of thyroid, unspecified; F41.9 Anxiety disorder, unspecified; F31.9 Bipolar disorder, unspecified; Z88.5 Allergy status to narcotic agent; Z88.8 Allergy status to other drugs, medicaments and biological substances; Z79.899 Other long term (current) drug therapy; Z79.890 Hormone replacement therapy; X58.XXXA Exposure to other specified factors, initial encounter
CPT/HCPCS: 36415; 80053; 83605; 83690; 85025; 81001; 99284; 96372; J1885

== ENCOUNTER 2022-10-16 18:16 | Emergency (ER) | payer OTHER ==
[2022-10-16] MEDS ORDERED: MECLIZINE 12.5 MG TAB PO STA (18:44)
[2022-10-16] MEDS ORDERED: SODIUM CHLORIDE 0.9% 1,000 ML IV STA (18:44)
[2022-10-16] MEDS ORDERED: METOCLOPRAMIDE 5 MG/ML 2 ML VIAL IVP STA (18:44)
--- NOTE | 2022-10-16 18:47 | ED ---
General Adult HPI - General Chief complaint: Dizziness Stated complaint: passed out head injury Time Seen by Provider: 10/16/22 18:40 Source: patient, family, RN notes reviewed Mode of arrival: wheelchair Limitations: no limitations - History of Present Illness Initial comments: Patient is a pleasant 37-year-old female presenting to the emergency department with concern for syncopal episode. Patient was resting on a couch. Patient got up and felt significant dizziness. Patient then passed out. Patient did bump the right forehead. Patient does have chronic headaches. Patient does have chronic dizziness which she attributes to the headaches. Patient states she has passed out a few times in the past secondary to headaches and dizziness. No neck or back pain. No weakness or confusion. - Related Data Home Medications Medication Instructions Recorded Confirmed Levothyroxine Sodium [Synthroid] 50 mcg PO DAILY 05/05/14 10/02/22 Cetirizine HCl [Zyrtec] 10 mg PO DAILY 08/30/19 10/02/22 Pregabalin [Lyrica] 150 mg PO BID 08/30/19 10/02/22 ARIPiprazole [Abilify] 2 mg PO HS 09/14/20 10/02/22 Venlafaxine HCl [Effexor XR] 225 mg PO HS 09/14/20 10/02/22 Erenumab-Aooe [Aimovig 140 mg SQ Q30D 09/22/20 10/02/22 Autoinjector] HYDROcodone/APAP 7.5-325MG [[place] 1 tab PO BID PRN 08/23/21 10/02/22 7.5-325] Atogepant [Qulipta] 60 mg PO HS 11/28/21 10/02/22 Cvcpypcswtomdo-SU-Opicntcppk 1 tab PO DAILY 12/12/21 10/02/22 [Folbic] Ferrous Sulfate [Iron (65 MG 325 mg PO DAILY 12/12/21 10/02/22 Elemental)] Nystatin 100,000 Unit/gm Powd 1 applic TOPICAL BID PRN 12/12/21 10/02/22 [Mycostatin Powder] Nystatin/Triamcin 1 applic TOPICAL BID PRN 12/12/21 10/02/22 [Nystatin-Triamcinolone Cream] Cyclobenzaprine [Flexeril] 10 mg PO DAILY PRN 01/06/22 10/02/22 Butalb/Acetaminophen/Caffeine 1 tab PO Q6H PRN 05/19/22 10/02/22 [Fioricet 50-325-40] Ergocalciferol (Vitamin D2) 1,250 mcg PO GARCIA 05/19/22 10/02/22 [Drisdol (50,000 Iu)] Fluconazole 200 mg PO GARCIA 05/19/22 10/02/22 rOPINIRole HCL [Requip] 3 mg PO HS 05/19/22 10/02/22 Acetaminophen Tab [Tylenol] 650 mg PO Q6H PRN 10/02/22 10/02/22 Lasmiditan Succinate [Reyvow] 50 mg PO DAILY PRN 10/02/22 10/02/22 Metoclopramide [Reglan] 10 mg PO DAILY PRN 10/02/22 10/02/22 Semaglutide [Wegovy] 1 mg SQ GARCIA 10/02/22 10/02/22 Previous Rx's Medication Instructions Recorded Ibuprofen [Motrin] 600 mg PO Q6HR PRN #40 tab 07/11/22 Ibuprofen [Motrin] 800 mg PO Q8HR PRN #30 tab 10/14/22 Lidocaine 5% Patch [Lidoderm 5% 1 patch TOPICAL DAILY PRN #7 patch 10/14/22 Patch] Ondansetron Odt [Zofran Odt] 4 mg PO Q8HR PRN #10 tab 10/14/22 Allergies Allergy/AdvReac Type Severity Reaction Status Date / Time codeine AdvReac Hallucinati Verified 10/16/22 18:37 ons tramadol AdvReac Hallucinati Verified 10/16/22 18:37 ons valacyclovir HCl AdvReac BLURRED Verified 10/16/22 18:37 [From Valtrex] VISION Review of Systems ROS Statement: Those systems with pertinent positive or pertinent negative responses have been documented in the HPI. ROS Other: All systems not noted in ROS Statement are negative. Constitutional: Denies: fever Eyes: Denies: eye pain ENT: Denies: ear pain Respiratory: Denies: cough Cardiovascular: Denies: chest pain Endocrine: Denies: fatigue Gastrointestinal: Denies: abdominal pain Genitourinary: Denies: dysuria Musculoskeletal: Denies: back pain Neurological: Reports: as per HPI Past Medical History Past Medical History: Asthma, Diabetes Mellitus, Fibromyalgia, GERD/Reflux, Sleep Apnea/CPAP/BIPAP, Thyroid Disorder Additional Past Medical History / Comment(s): Migraines with aura, DDD, NIDDM type II, diverticulitis with perforation/colostomy since reversed, IBS, chronic seroma, CARLITOS/no device, polycystic ovaries, hypothyroid, season allergies History of Any Multi-Drug Resistant Organisms: None Reported Past Surgical History: Bariatric Surgery, Cholecystectomy, Uterine Ablation Additional Past Surgical History / Comment(s): 06/06/21 sleeve gastrectomy, rt Breast biopsy. bowel resection with colostomy/ later colostomy reversal, abdominal surgery to remove scar tissue, EGD, colonoscopy, back pain procedures uterine ablation, lysis of adhesions 07/11/22 Past Anesthesia/Blood Transfusion Reactions: No Reported Reaction Additional Past Anesthesia/Blood Transfusion Reaction / Comment(s): no hx blood transfusion, received monoclonal antibodies in Feb 2021 Past Psychological History: Anxiety, Bipolar, Depression Smoking Status: Never smoker Past Alcohol Use History: None Reported Past Drug Use History: None Reported - Past Family History Mother History Unknown: Yes Family Medical History: COPD Additional Family Medical History / Comment(s): Mother from COPD at the age of 55 yrs. Brother(s) Family Medical History: Diabetes Mellitus Father Family Medical History: Unable to Obtain General Exam Limitations: no limitations General appearance: alert, in no apparent distress Head exam: Present: other (Soft tissue swelling and abrasion right forehead) Eye exam: Present: normal appearance, PERRL, EOMI Neck exam: Present: normal inspection. Absent: tenderness Respiratory exam: Present: normal lung sounds bilaterally Cardiovascular Exam: Present: regular rate, normal rhythm GI/Abdominal exam: Present: soft. Absent: tenderness Extremities exam: Present: normal inspection, full ROM Neurological exam: Present: alert, oriented X3, CN II-XII intact. Absent: motor sensory deficit Expanded Neurological exam: Present: protecting the airway Speech: Present: fluid speech Motor strength exam: RUE: 5, LUE: 5, RLE: 5, LLE: 5 Eye Response: (4) open spontaneously Motor Response: (6) obeys commands Verbal Response: (5) oriented Psychiatric exam: Present: normal affect, normal mood Skin exam: Present: normal color Course Vital Signs 10/16/22 10/16/22 18:32 19:29 Temperature 97.9 F Pulse Rate 85 85 Respiratory 18 18 Rate Blood Pressure 123/84 118/73 O2 Sat by Pulse 99 99 Oximetry EKG Findings - EKG Results: EKG: interpreted by ERMD (L axis. Poor R-wave progression.), sinus rhythm, normal ST/T Medical Decision Making - Medical Decision Making Was pt. sent in by a medical professional or institution (, PA, TALKING BOOKS LIBRARY CLERK, urgent care, hospital, or [facility]...) When possible be specific @ -No Did you speak to anyone other than the patient for history (EMS, parent, family, police, friend...)? What history was obtained from this source @ -No Did you review nursing and triage notes (agree or disagree)? Why? @ -I reviewed and agree with nursing and triage notes Were old charts reviewed (outside hosp., previous admission, EMS record, old EKG, old radiological studies, urgent care reports/EKG's, [facility] records)? Report findings @ -Reviewed previous visits including 19 hospital visits this year. Differential Diagnosis (chest pain, altered mental status, abdominal pain women, abdominal pain men, vaginal bleeding, weakness, fever, dyspnea, syncope, heada denise, dizziness, GI bleed, back pain, seizure, CVA, palpatations, mental health)? @ -Differential Dizziness: Benign paroxysmal positional Vertigo, Menieres disease, otitis media, acoustic neuroma, vertebrobasilar insufficiency, cerebellar stroke, encephalitis, hypovolemic, arrhythmia, coronary artery syndrome, anemia, this is not meant to be an all-inclusive list EKG interpreted by me (3pts min.). @ -As above X-rays interpreted by me (1pt min.). @ -None done CT interpreted by me (1pt min.). @ -Report reviewed U/S interpreted by me (1pt. min.). @ -None done What testing was considered but not performed or refused? (CT, X-rays, U/S, labs)? Why? @ -None What meds were considered but not given or refused? Why? @ -None Did you discuss the management of the patient with other professionals (professionals i.e. , PA, TALKING [employer]OOKS LIBRARY CLERK, lab, RT, psych nurse, social service agency director, canopy stringer, teacher, special assets officer, rn case management)? Give summary @ -No Was smoking cessation discussed for >3mins.? @ -No Was critical care preformed (if so, how long)? @ -No Were there social determinants of health that impacted care today? How? (Homelessness, low income, unemployed, alcoholism, drug addiction, transportation, low edu. Level, literacy, decrease access to med. care, penitentiary, rehab)? @ -No Was there de-escalation of care discussed even if they declined (Discuss DNR or withdrawal of care, Hospice)? DNR status @ -No What co-morbidities impacted this encounter? (DM, HTN, Smoking, COPD, CAD, Cancer, CVA, ARF, Chemo, Hep., AIDS, mental health diagnosis, sleep apnea, morbid obesity)? @ -None Was patient admitted / discharged? Hospital course, mention meds given and route, prescriptions, significant lab abnormalities, going to OR and other pertinent info. @ -Patient reevaluated and states she is feeling somewhat better. States nausea and dizziness have improved. Undiagnosed new problem with uncertain prognosis? @ -No Drug Therapy requiring intensive monitoring for toxicity (Heparin, Nitro, Insulin, Cardizem)? @ -No Were any procedures done? @ -No Diagnosis/symptom? @ -Headache, dizziness, syncope Acute, or Chronic, or Acute on Chronic? @ -Acute on chronic, acute on chronic, acute on chronic Uncomplicated (without systemic symptoms) or Complicated (systemic symptoms)? @ -default Side effects of treatment? @ -No Exacerbation, Progression, or Severe Exacerbation? @ -No Poses a threat to life or bodily function? How? (Chest pain, [place], [place], pneumonia, PE, COPD, DKA, ARF, appy, cholecystitis, CVA, Diverticulitis, Homicidal, Suicidal, threat to staff... and all critical care pts) @ -No - Lab Data Result diagrams: 10/16/22 18:52 10/16/22 18:52 Lab Results 10/16/22 10/16/22 10/16/22 Range/Units 18:52 18:52 18:52 WBC 8.2 (3.8-10.6) k/uL RBC 4.56 (3.80-5.40) m/uL Hgb 13.1 (11.4-16.0) gm/dL Hct 40.5 (34.0-46.0) % MCV 88.8 (80.0-100.0) fL MCH 28.6 (25.0-35.0) pg MCHC 32.2 (31.0-37.0) g/dL RDW 13.7 (11.5-15.5) % Plt Count 253 (150-450) k/uL MPV 7.6 Neutrophils % 63 % Lymphocytes % 29 % Monocytes % 4 % Eosinophils % 2 % Basophils % 0 % Neutrophils # 5.2 (1.3-7.7) k/uL Lymphocytes # 2.4 (1.0-4.8) k/uL Monocytes # 0.3 (0-1.0) k/uL Eosinophils # 0.2 (0-0.7) k/uL Basophils # 0.0 (0-0.2) k/uL PT 9.8 (9.0-12.0) sec INR 0.9 (<1.2) APTT 24.8 (22.0-30.0) sec Sodium 139 (137-145) mmol/L Potassium 3.6 (3.5-5.1) mmol/L Chloride 103 (98-107) mmol/L Carbon Dioxide 27 (22-30) mmol/L Anion Gap 9 mmol/L BUN 15 (7-17) mg/dL Creatinine 0.74 (0.52-1.04) mg/dL Est GFR (CKD-EPI)AfAm >90 (>60 ml/min/1.73 sqM) Est GFR (CKD-EPI)NonAf >90 (>60 ml/min/1.73 sqM) Glucose 114 H (74-99) mg/dL Calcium 8.9 (8.4-10.2) mg/dL Total Bilirubin 0.3 (0.2-1.3) mg/dL AST 41 H (14-36) U/L ALT 48 H (4-34) U/L Alkaline Phosphatase 105 (38-126) U/L Total Protein 6.5 (6.3-8.2) g/dL Albumin 3.7 (3.5-5.0) g/dL Disposition Clinical Impression: Cephalgia, Syncope, Dizziness Disposition: HOME SELF-CARE Condition: Stable Instructions (If sedation given, give patient instructions): Dizziness (ED) Additional Instructions: Please do follow-up with your primary care physician in the next day or 2 for recheck. Return for increased dizziness, passing out, worsening or changing symptoms or other concerns. Is patient prescribed a controlled substance at d/c from ED?: No Referrals: Alfred Varela MD [Primary Care Provider] - 1-2 days Time of Disposition: 20:28
[2022-10-16 19:09] LABS: Basophils % (A) 0 %; Eosinophils # (A) 0.2 k/uL (0-0.7); Eosinophils % (A) 2 %; HCT 40.5 % (34.0-46.0); HGB 13.1 gm/dL (11.4-16.0); Lymphocytes # (A) 2.4 k/uL (1.0-4.8); Lymphocytes % (A) 29 %; MCH 28.6 pg (25.0-35.0); MCHC 32.2 g/dL (31.0-37.0); MCV 88.8 fL (80.0-100.0); Mean Platelet Volume 7.6; Monocytes # (A) 0.3 k/uL (0-1.0); Monocytes % (A) 4 %; Neutrophils # (A) 5.2 k/uL (1.3-7.7); Neutrophils % (A) 63 %; Platelet Count 253 k/uL (150-450); RBC 4.56 m/uL (3.80-5.40); RDW 13.7 % (11.5-15.5); WBC 8.2 k/uL (3.8-10.6)
[2022-10-16 19:18] LABS: ALT 48 U/L (4-34); AST 41 U/L (14-36); African American GFR (CKD) >90 (>60 ml/min/1.73 sqM); Albumin 3.7 g/dL (3.5-5.0); Alkaline Phosphatase 105 U/L (38-126); Anion Gap 9 mmol/L; Blood Urea Nitrogen 15 mg/dL (7-17); Calcium 8.9 mg/dL (8.4-10.2); Carbon Dioxide 27 mmol/L (22-30); Chloride 103 mmol/L (98-107); Glucose 114 mg/dL (74-99); Non-African American GFR(CKD) >90 (>60 ml/min/1.73 sqM); Potassium 3.6 mmol/L (3.5-5.1); Sodium 139 mmol/L (137-145); Total Bilirubin 0.3 mg/dL (0.2-1.3); Total Protein 6.5 g/dL (6.3-8.2)
[2022-10-16 19:36] LABS: INR 0.9 (<1.2); Partial Thromboplastin Time 24.8 sec (22.0-30.0); Prothrombin Time 9.8 sec (9.0-12.0)
--- NOTE | 2022-10-16 19:39 | CT ---
EXAMINATION TYPE: CT brain wo con CT DLP: 1099.4 mGycm, Automated exposure control for dose reduction was used. DATE OF EXAM: 10/16/2022 7:26 PM COMPARISON: 09/29/2022. CLINICAL INDICATION:Female, 37 years old with history of fall, syncope, syncope TECHNIQUE: Brain: Axial CT images of the brain were obtained with coronal and sagittal reformats created and rev iewed. Contrast used: None. Oral contrast used: None. FINDINGS: Brain: Extra-axial spaces: No abnormal extra-axial fluid collections. Ventricular system: Within normal limits Cerebral parenchyma: No acute intraparenchymal hemorrhage or mass effect. The hicks-white junction is well differentiated. Cerebellum: Unremarkable. Mass effect: No evidence of midline shift. Intracranial vasculature: unremarkable Soft tissues: Minimal right scalp edema. Calvarium/osseous structures: No depressed skull fracture. Paranasal sinuses and mastoid air cells: Mild scattered paranasal sinus disease. Visualized orbits: Orbital contents are intact. IMPRESSION: 1. No acute intracranial process. 2. Right frontal scalp edema
[2022-10-16] MEDS ORDERED: ACETAMINOPHEN TAB 500 MG TAB PO STA (20:25)
[2022-10-16 20:57] VITALS: BP 103/54; PULSE 83; RESP 16; TEMP 98.8
== END 2022-10-16 20:56 | disposition home or self-care (01) ==
LOC: EC 18:16
DX: R55 Syncope and collapse (principal); R51.9 Headache, unspecified; R42 Dizziness and giddiness; E11.9 Type 2 diabetes mellitus without complications; F31.9 Bipolar disorder, unspecified; F41.9 Anxiety disorder, unspecified; G47.33 Obstructive sleep apnea (adult) (pediatric); J45.909 Unspecified asthma, uncomplicated; K21.9 Gastro-esophageal reflux disease without esophagitis; E07.9 Disorder of thyroid, unspecified; Z79.899 Other long term (current) drug therapy; Z79.890 Hormone replacement therapy; Z88.5 Allergy status to narcotic agent
CPT/HCPCS: 36415; 93005; 80053; 85025; 85610; 85730; 70450; 99284; 96374; 96361; J2765

== ENCOUNTER 2022-10-20 15:09 | Emergency (ER) | payer OTHER ==
[2022-10-20 15:22] VITALS: RESP 18; TEMP 98.2
[2022-10-20] MEDS ORDERED: ORPHENADRINE 30 MG/ML 2 ML VIAL IVP STA (15:59)
[2022-10-20] MEDS ORDERED: SODIUM CHLORIDE 0.9% 1,000 ML IV STA (15:59)
[2022-10-20] MEDS ORDERED: PROCHLORPERAZINE INJ 10 MG/2 ML VIAL IVP STA (15:59)
[2022-10-20] MEDS ORDERED: HYDROmorphone 1 MG/ML 1 ML SYRINGE IVP STA ×2 (15:59→17:28)
[2022-10-20] MEDS ORDERED: diphenhydrAMINE 50 MG/ML 1 ML VIAL IVP STA (15:59)
[2022-10-20] MEDS ORDERED: methylPREDNISolone SOD SUCCIN 250 MG in SODIUM CHLORIDE 0.9% 100 ML IVPB STA (16:09)
--- NOTE | 2022-10-20 16:09 | ED ---
Recheck HPI - General Chief Complaint: Head Injury Stated Complaint: head injury Time Seen by Provider: 10/20/22 15:23 Source: patient, RN notes reviewed, old records reviewed Mode of arrival: ambulatory Limitations: no limitations - History of Present Illness Initial Comments: This is a 37-year-old female to the emergency department for evaluation patient presents today for evaluation in regards to headache, patient presents today for evaluation regards to headache with history of chronic headaches worse headache ALLERGIES dealing with recent concussion. Patient's headache neck pain back pain shoulder pain muscular pain. Persistent nausea and vomiting. Intractable headache with minor medications at home Complaint: medication refill request, other (Worsening headache with post concussive symptoms) -: days(s) Returns Today for: persistent/worsening pain related to initial visit Symptoms Since Prior Visit: worsening pain Associated Symptoms: none Treatments Prior to Arrival: Given Pain Meds on - Related Data Home Medications Medication Instructions Recorded Confirmed Levothyroxine Sodium [Synthroid] 50 mcg PO DAILY 05/05/14 10/02/22 Cetirizine HCl [Zyrtec] 10 mg PO DAILY 08/30/19 10/02/22 Pregabalin [Lyrica] 150 mg PO BID 08/30/19 10/02/22 ARIPiprazole [Abilify] 2 mg PO HS 09/14/20 10/02/22 Venlafaxine HCl [Effexor XR] 225 mg PO HS 09/14/20 10/02/22 Erenumab-Aooe [Aimovig 140 mg SQ Q30D 09/22/20 10/02/22 Autoinjector] HYDROcodone/APAP 7.5-325MG [[place] 1 tab PO BID PRN 08/23/21 10/02/22 7.5-325] Atogepant [Qulipta] 60 mg PO HS 11/28/21 10/02/22 Srnvlejmymuqez-NH-Numyktcmhh 1 tab PO DAILY 12/12/21 10/02/22 [Folbic] Ferrous Sulfate [Iron (65 MG 325 mg PO DAILY 12/12/21 10/02/22 Elemental)] Nystatin 100,000 Unit/gm Powd 1 applic TOPICAL BID PRN 12/12/21 10/02/22 [Mycostatin Powder] Nystatin/Triamcin 1 applic TOPICAL BID PRN 12/12/21 10/02/22 [Nystatin-Triamcinolone Cream] Cyclobenzaprine [Flexeril] 10 mg PO DAILY PRN 01/06/22 10/02/22 Butalb/Acetaminophen/Caffeine 1 tab PO Q6H PRN 05/19/22 10/02/22 [Fioricet 50-325-40] Ergocalciferol (Vitamin D2) 1,250 mcg PO GARCIA 05/19/22 10/02/22 [Drisdol (50,000 Iu)] Fluconazole 200 mg PO GARCIA 05/19/22 10/02/22 rOPINIRole HCL [Requip] 3 mg PO HS 05/19/22 10/02/22 Acetaminophen Tab [Tylenol] 650 mg PO Q6H PRN 10/02/22 10/02/22 Lasmiditan Succinate [Reyvow] 50 mg PO DAILY PRN 10/02/22 10/02/22 Metoclopramide [Reglan] 10 mg PO DAILY PRN 10/02/22 10/02/22 Semaglutide [Wegovy] 1 mg SQ GARCIA 10/02/22 10/02/22 Previous Rx's Medication Instructions Recorded Ibuprofen [Motrin] 600 mg PO Q6HR PRN #40 tab 07/11/22 Ibuprofen [Motrin] 800 mg PO Q8HR PRN #30 tab 10/14/22 Lidocaine 5% Patch [Lidoderm 5% 1 patch TOPICAL DAILY PRN #7 patch 10/14/22 Patch] Ondansetron Odt [Zofran Odt] 4 mg PO Q8HR PRN #10 tab 10/14/22 Allergies Allergy/AdvReac Type Severity Reaction Status Date / Time codeine AdvReac Hallucinati Verified 10/20/22 15:22 ons tramadol AdvReac Hallucinati Verified 10/20/22 15:22 ons valacyclovir HCl AdvReac BLURRED Verified 10/20/22 15:22 [From Valtrex] VISION Review of Systems ROS Statement: Those systems with pertinent positive or pertinent negative responses have been documented in the HPI. ROS Other: All systems not noted in ROS Statement are negative. Past Medical History Past Medical History: Asthma, Diabetes Mellitus, Fibromyalgia, GERD/Reflux, Sleep Apnea/CPAP/BIPAP, Thyroid Disorder Additional Past Medical History / Comment(s): Migraines with aura, DDD, NIDDM type II, diverticulitis with perforation/colostomy since reversed, IBS, chronic seroma, CARLITOS/no device, polycystic ovaries, hypothyroid, season allergies History of Any Multi-Drug Resistant Organisms: None Reported Past Surgical History: Bariatric Surgery, Cholecystectomy, Uterine Ablation Additional Past Surgical History / Comment(s): 06/06/21 sleeve gastrectomy, rt Breast biopsy. bowel resection with colostomy/ later colostomy reversal, abdominal surgery to remove scar tissue, EGD, colonoscopy, back pain procedures uterine ablation, lysis of adhesions 07/11/22 Past Anesthesia/Blood Transfusion Reactions: No Reported Reaction Additional Past Anesthesia/Blood Transfusion Reaction / Comment(s): no hx blood transfusion, received monoclonal antibodies in Feb 2021 Past Psychological History: Anxiety, Bipolar, Depression Smoking Status: Never smoker Past Alcohol Use History: Occasional Past Drug Use History: None Reported - Past Family History Mother History Unknown: Yes Family Medical History: COPD Additional Family Medical History / Comment(s): Mother from COPD at the age of 55 yrs. Brother(s) Family Medical History: Diabetes Mellitus Father Family Medical History: Unable to Obtain General Exam Limitations: no limitations General appearance: alert, in no apparent distress Head exam: Present: atraumatic, normocephalic, normal inspection Eye exam: Present: normal appearance, PERRL, EOMI. Absent: scleral icterus, conjunctival injection, periorbital swelling ENT exam: Present: normal exam, mucous membranes moist Neck exam: Present: normal inspection. Absent: tenderness, meningismus, lymphadenopathy Respiratory exam: Present: normal lung sounds bilaterally. Absent: respiratory distress, wheezes, rales, rhonchi, stridor Cardiovascular Exam: Present: regular rate, normal rhythm, normal heart sounds. Absent: systolic murmur, diastolic murmur, rubs, gallop, clicks GI/Abdominal exam: Present: soft, normal bowel sounds. Absent: distended, tend erness, guarding, rebound, rigid Extremities exam: Present: normal inspection, full ROM, normal capillary refill. Absent: tenderness, pedal edema, joint swelling, calf tenderness Back exam: Present: normal inspection Neurological exam: Present: alert, oriented X3, CN II-XII intact Psychiatric exam: Present: normal affect, normal mood Skin exam: Present: warm, dry, intact, normal color. Absent: rash Course Vital Signs 10/20/22 15:19 Temperature 98.2 F Pulse Rate 100 Respiratory 18 Rate Blood Pressure 133/77 O2 Sat by Pulse 99 Oximetry - Reevaluation(s) Reevaluation #1: 10/20/22 16:23 Medical records reviewed Reevaluation #2: 10/20/22 16:23 Headache is improved Reevaluation #3: 10/20/22 16:23 Patient informed of results questions answered Reevaluation #4: 10/20/22 16:23 Was pt. sent in by a medical professional or institution? @ -no Did you speak to anyone other than the patient for history? @ -no Did you review nursing and triage notes? @ -agree Were old charts reviewed? @ -no Differential Diagnosis? @ -prior EKG interpreted by me (3pts min.)? @ -no X-rays interpreted by me (1pt min.)? @ -no CT interpreted by me (1pt min.)? @ -no U/S interpreted by me (1pt. min.)? @ -no What testing was considered but not performed? (CT, X-rays, U/S, labs)? Why? @ -no What meds were considered but not given? Why? @ -no Did you discuss the management of the patient with other professionals? @ -no Did you reconcile home meds? @ -no Was smoking cessation discussed for >3mins.? @ -no Was critical care preformed (if so, how long)? @ -no Were there social determinants of health that impacted care today? How? (Homelessness, low income, unemployed, alcoholism, drug addiction, transportation, low edu. Level, literacy, decrease access to med. care, longterm, rehab)? @ -no Was there de-escalation of care discussed even if they declined? (Discuss DNR or withdrawal of care, Hospice)? @ -no What co-morbidities impacted this encounter? (DM, HTN, Smoking, COPD, CAD, Cancer, CVA, Hep., AIDS, mental health diagnosis, sleep apnea, morbid obesity)? @ -none Was patient admitted / discharged? @ -37 female to the emergency department with psychiatric chronic headache migraine postconcussive symptoms. Symptoms resolved here in the ER she can be discharged home Discharged Undiagnosed new problem with uncertain prognosis? @ -no Drug Therapy requiring intensive monitoring for toxicity (Heparin, Nitro, Insulin, Cardizem)? @ -no Were any procedures done? @ -no Diagnosis/symptom? @ -Postconcussive symptoms Acute, or Chronic, or Acute on Chronic? @ -Acute postconcussive symptoms migraine headache chronic Uncomplicated (without systemic symptoms) or Complicated (systemic symptoms)? @ -uncomplicated Side effects of treatment? @ -no Exacerbation, Progression, or Severe Exacerbation] @ -no Poses a threat to life or bodily function? @ -no Reevaluation #5: 10/20/22 16:23 Differential Headache: Migraine, tension, cluster, carbon monoxide, central venous thrombosis, pension karma temporal arteritis, acute closure glaucoma, intercranial hemorrhage, mastoiditis, sinusitis, head injury, this is not meant to be an all-inclusive list. Medical Decision Making - Medical Decision Making 37 female to the emergency department with migraine headache chronic postconcussive symptoms currently. Patient symptoms are improved and resolved patient feels good and can be discharged home - Lab Data Result diagrams: 10/20/22 16:14 10/20/22 16:14 Lab Results 10/20/22 10/20/22 Range/Units 16:14 16:14 WBC 8.4 (3.8-10.6) k/uL RBC 4.77 (3.80-5.40) m/uL Hgb 14.0 (11.4-16.0) gm/dL Hct 42.1 (34.0-46.0) % MCV 88.4 (80.0-100.0) fL MCH 29.3 (25.0-35.0) pg MCHC 33.1 (31.0-37.0) g/dL RDW 13.8 (11.5-15.5) % Plt Count 329 (150-450) k/uL MPV 7.6 Neutrophils % 64 % Lymphocytes % 26 % Monocytes % 6 % Eosinophils % 3 % Basophils % 0 % Neutrophils # 5.4 (1.3-7.7) k/uL Lymphocytes # 2.2 (1.0-4.8) k/uL Monocytes # 0.5 (0-1.0) k/uL Eosinophils # 0.2 (0-0.7) k/uL Basophils # 0.0 (0-0.2) k/uL Sodium 140 (137-145) mmol/L Potassium 4.1 (3.5-5.1) mmol/L Chloride 104 (98-107) mmol/L Carbon Dioxide 26 (22-30) mmol/L Anion Gap 10 mmol/L BUN 15 (7-17) mg/dL Creatinine 0.73 (0.52-1.04) mg/dL Est GFR (CKD-EPI)AfAm >90 (>60 ml/min/1.73 sqM) Est GFR (CKD-EPI)NonAf >90 (>60 ml/min/1.73 sqM) Glucose 147 H (74-99) mg/dL Calcium 9.4 (8.4-10.2) mg/dL Phosphorus 3.4 (2.5-4.5) mg/dL Magnesium 2.1 (1.6-2.3) mg/dL Total Bilirubin 0.5 (0.2-1.3) mg/dL AST 50 H (14-36) U/L ALT 73 H (4-34) U/L Alkaline Phosphatase 129 H (38-126) U/L Total Protein 6.9 (6.3-8.2) g/dL Albumin 3.9 (3.5-5.0) g/dL Disposition Clinical Impression: Concussion without loss of consciousness, Concussion with loss of consciousness, Closed head injury, Postconcussion syndrome Disposition: HOME SELF-CARE Condition: Good Instructions (If sedation given, give patient instructions): Post Concussion Syndrome (ED) Is patient prescribed a controlled substance at d/c from ED?: No Referrals: Alfred Varela MD [Primary Care Provider] - 1-2 days Time of Disposition: 17:30
[2022-10-20 16:35] LABS: Basophils % (A) 0 %; Eosinophils # (A) 0.2 k/uL (0-0.7); Eosinophils % (A) 3 %; HCT 42.1 % (34.0-46.0); Lymphocytes # (A) 2.2 k/uL (1.0-4.8); Lymphocytes % (A) 26 %; MCH 29.3 pg (25.0-35.0); MCHC 33.1 g/dL (31.0-37.0); MCV 88.4 fL (80.0-100.0); Mean Platelet Volume 7.6; Monocytes # (A) 0.5 k/uL (0-1.0); Monocytes % (A) 6 %; Neutrophils # (A) 5.4 k/uL (1.3-7.7); Neutrophils % (A) 64 %; Platelet Count 329 k/uL (150-450); RBC 4.77 m/uL (3.80-5.40); RDW 13.8 % (11.5-15.5); WBC 8.4 k/uL (3.8-10.6)
[2022-10-20 16:42] LABS: ALT 73 U/L (4-34); AST 50 U/L (14-36); African American GFR (CKD) >90 (>60 ml/min/1.73 sqM); Albumin 3.9 g/dL (3.5-5.0); Alkaline Phosphatase 129 U/L (38-126); Anion Gap 10 mmol/L; Blood Urea Nitrogen 15 mg/dL (7-17); Calcium 9.4 mg/dL (8.4-10.2); Carbon Dioxide 26 mmol/L (22-30); Chloride 104 mmol/L (98-107); Glucose 147 mg/dL (74-99); Magnesium 2.1 mg/dL (1.6-2.3); Non-African American GFR(CKD) >90 (>60 ml/min/1.73 sqM); Phosphorus 3.4 mg/dL (2.5-4.5); Potassium 4.1 mmol/L (3.5-5.1); Sodium 140 mmol/L (137-145); Total Bilirubin 0.5 mg/dL (0.2-1.3); Total Protein 6.9 g/dL (6.3-8.2)
[2022-10-20 17:47] VITALS: BP 134/78; PULSE 78
== END 2022-10-20 18:26 | disposition home or self-care (01) ==
LOC: EC 15:09
DX: S06.0XAA Concussion with loss of consciousness status unknown, initial encounter (principal); J45.909 Unspecified asthma, uncomplicated; E11.9 Type 2 diabetes mellitus without complications; G47.30 Sleep apnea, unspecified; E07.9 Disorder of thyroid, unspecified; F41.9 Anxiety disorder, unspecified; F31.9 Bipolar disorder, unspecified; Z79.890 Hormone replacement therapy; Z79.899 Other long term (current) drug therapy; Z79.84 Long term (current) use of oral hypoglycemic drugs; Z88.5 Allergy status to narcotic agent; Z88.6 Allergy status to analgesic agent; Z88.8 Allergy status to other drugs, medicaments and biological substances; X58.XXXA Exposure to other specified factors, initial encounter
CPT/HCPCS: 36415; 80053; 83735; 84100; 85025; 99283; 96365; 96375 ×5; 96376; J1200; J0780; J2360; J3360; J2930; J1170

== ENCOUNTER 2022-10-28 15:15 | Emergency (ER) | payer OTHER ==
[2022-10-28 15:33] VITALS: PULSE 88; RESP 16
--- NOTE | 2022-10-28 17:12 | ED ---
General Adult HPI - General Chief complaint: Headache Stated complaint: Migraine Time Seen by Provider: 10/28/22 17:07 Source: patient, RN notes reviewed Mode of arrival: ambulatory Limitations: no limitations - History of Present Illness Initial comments: 37-year-old female with past medical history significant for migraines presents the emergency department with a chief complaint of headache. Patient reports worsening headache in the back of her head was slurred speech that started yesterday. She reports that this is typical symptoms of her headaches. She has taken Tylenol Motrin for mild symptomatic relief. Denies injury or trauma. She denies any dizziness, lightheadedness, vision changes, vision loss, nausea, vomiting. She describes her headache as coming in nature and she has been unable to manage her symptoms at home. - Related Data Home Medications Medication Instructions Recorded Confirmed Levothyroxine Sodium [Synthroid] 50 mcg PO DAILY 05/05/14 10/02/22 Cetirizine HCl [Zyrtec] 10 mg PO DAILY 08/30/19 10/02/22 Pregabalin [Lyrica] 150 mg PO BID 08/30/19 10/02/22 ARIPiprazole [Abilify] 2 mg PO HS 09/14/20 10/02/22 Venlafaxine HCl [Effexor XR] 225 mg PO HS 09/14/20 10/02/22 Erenumab-Aooe [Aimovig 140 mg SQ Q30D 09/22/20 10/02/22 Autoinjector] HYDROcodone/APAP 7.5-325MG [[place] 1 tab PO BID PRN 08/23/21 10/02/22 7.5-325] Atogepant [Qulipta] 60 mg PO HS 11/28/21 10/02/22 Zimosgthagmrej-MM-Ttoxddhsla 1 tab PO DAILY 12/12/21 10/02/22 [Folbic] Ferrous Sulfate [Iron (65 MG 325 mg PO DAILY 12/12/21 10/02/22 Elemental)] Nystatin 100,000 Unit/gm Powd 1 applic TOPICAL BID PRN 12/12/21 10/02/22 [Mycostatin Powder] Nystatin/Triamcin 1 applic TOPICAL BID PRN 12/12/21 10/02/22 [Nystatin-Triamcinolone Cream] Cyclobenzaprine [Flexeril] 10 mg PO DAILY PRN 01/06/22 10/02/22 Butalb/Acetaminophen/Caffeine 1 tab PO Q6H PRN 05/19/22 10/02/22 [Fioricet 50-325-40] Ergocalciferol (Vitamin D2) 1,250 mcg PO GARCIA 05/19/22 10/02/22 [Drisdol (50,000 Iu)] Fluconazole 200 mg PO GARCIA 05/19/22 10/02/22 rOPINIRole HCL [Requip] 3 mg PO HS 05/19/22 10/02/22 Acetaminophen Tab [Tylenol] 650 mg PO Q6H PRN 10/02/22 10/02/22 Lasmiditan Succinate [Reyvow] 50 mg PO DAILY PRN 10/02/22 10/02/22 Metoclopramide [Reglan] 10 mg PO DAILY PRN 10/02/22 10/02/22 Semaglutide [Wegovy] 1 mg SQ GARCIA 10/02/22 10/02/22 Previous Rx's Medication Instructions Recorded Ibuprofen [Motrin] 600 mg PO Q6HR PRN #40 tab 07/11/22 Ibuprofen [Motrin] 800 mg PO Q8HR PRN #30 tab 10/14/22 Lidocaine 5% Patch [Lidoderm 5% 1 patch TOPICAL DAILY PRN #7 patch 10/14/22 Patch] Ondansetron Odt [Zofran Odt] 4 mg PO Q8HR PRN #10 tab 10/14/22 Allergies Allergy/AdvReac Type Severity Reaction Status Date / Time codeine AdvReac Hallucinati Verified 10/20/22 15:22 ons tramadol AdvReac Hallucinati Verified 10/20/22 15:22 ons valacyclovir HCl AdvReac BLURRED Verified 10/20/22 15:22 [From Valtrex] VISION Review of Systems ROS Statement: Those systems with pertinent positive or pertinent negative responses have been documented in the HPI. ROS Other: All systems not noted in ROS Statement are negative. Past Medical History Past Medical History: Asthma, Diabetes Mellitus, Fibromyalgia, GERD/Reflux, Sleep Apnea/CPAP/BIPAP, Thyroid Disorder Additional Past Medical History / Comment(s): Migraines with aura, DDD, NIDDM type II, diverticulitis with perforation/colostomy since reversed, IBS, chronic seroma, CARLITOS/no device, polycystic ovaries, hypothyroid, season allergies History of Any Multi-Drug Resistant Organisms: None Reported Past Surgical History: Bariatric Surgery, Cholecystectomy, Uterine Ablation Additional Past Surgical History / Comment(s): 06/06/21 sleeve gastrectomy, rt Breast biopsy. bowel resection with colostomy/ later colostomy reversal, abdominal surgery to remove scar tissue, EGD, colonoscopy, back pain procedures uterine ablation, lysis of adhesions 07/11/22 Past Anesthesia/Blood Transfusion Reactions: No Reported Reaction Additional Past Anesthesia/Blood Transfusion Reaction / Comment(s): no hx blood transfusion, received monoclonal antibodies in Feb 2021 Past Psychological History: Anxiety, Bipolar, Depression Smoking Status: Never smoker Past Alcohol Use History: Occasional Past Drug Use History: None Reported - Past Family History Mother History Unknown: Yes Family Medical History: COPD Additional Family Medical History / Comment(s): Mother from COPD at the age of 55 yrs. Brother(s) Family Medical History: Diabetes Mellitus Father Family Medical History: Unable to Obtain General Exam - General Exam Comments Initial Comments: Visual Physical Exam Vital signs reviewed General: Well-appearing, nontoxic, no acute distress. Head: Normocephalic, atraumatic Eyes: PERRLA, EOMI ENT: Airway patent Chest: Nonlabored breathing Skin: No visual rash, normal skin tone Neuro: Alert and oriented 3 Musculoskeletal: No gross abnormalities General: Alert, in no acute distress Head: atraumatic normocephalic. Eyes PERRL, EOMI intact, mucous membranes moist Respiratory: Lungs clear to auscultation bilaterally Cardiovascular: Heart rate regular rate and rhythm Abdominal: Soft without guarding or rebound Extremities: Normal inspection with full range of motion and normal capillary r efill Neuroogic: alert and oriented 3, CN II-XII intact, able to ambulate with steady gait Skin: warm dry and intact with normal color Limitations: no limitations General appearance: alert, in no apparent distress Head exam: Present: atraumatic, normocephalic, normal inspection Eye exam: Present: normal appearance, PERRL, EOMI. Absent: scleral icterus, conjunctival injection, periorbital swelling ENT exam: Present: normal exam, mucous membranes moist Neck exam: Present: normal inspection. Absent: tenderness, meningismus, lymphadenopathy Respiratory exam: Present: normal lung sounds bilaterally. Absent: respiratory distress, wheezes, rales, rhonchi, stridor Cardiovascular Exam: Present: regular rate, normal rhythm, normal heart sounds. Absent: systolic murmur, diastolic murmur, rubs, gallop, clicks GI/Abdominal exam: Present: soft, normal bowel sounds. Absent: distended, tenderness, guarding, rebound, rigid Extremities exam: Present: normal inspection, full ROM, normal capillary refill. Absent: tenderness, pedal edema, joint swelling, calf tenderness Back exam: Present: normal inspection Neurological exam: Present: alert, oriented X3, CN II-XII intact Psychiatric exam: Present: normal affect, normal mood Skin exam: Present: warm, dry, intact, normal color. Absent: rash Course Vital Signs 10/28/22 10/28/22 15:30 21:41 Temperature 98.5 F 98.7 F Pulse Rate 88 88 Respiratory 16 16 Rate Blood Pressure 128/82 111/78 O2 Sat by Pulse 98 96 Oximetry - Reevaluation(s) Reevaluation #1: 10/28/22 22:22 Patient reevaluated. Patient reports symptomatically relief of headache. Medical Decision Making - Medical Decision Making Was pt. sent in by a medical professional or institution (, PA, PRIVATE WATCHMAN, urgent care, hospital, or detention...) When possible be specific @ -[No] Did you speak to anyone other than the patient for history (EMS, parent, family, police, friend...)? What history was obtained from this source @ -[No] Did you review nursing and triage notes (agree or disagree)? Why? @ -[I reviewed and agree with nursing and triage notes] Were old charts reviewed (outside hosp., previous admission, EMS record, old EKG, old radiological studies, urgent care reports/EKG's, detention records)? Report findings @ -[No old charts were reviewed] Differential Diagnosis (chest pain, altered mental status, abdominal pain women, abdominal pain men, vaginal bleeding, weakness, fever, dyspnea, syncope, headache, dizziness, GI bleed, back pain, seizure, CVA, palpatations, mental health, musculoskeletal)? @ -[not applicable] EKG interpreted by me (3pts min.). @ -[As above] X-rays interpreted by me (1pt min.). @ -[None done] CT interpreted by me (1pt min.). @ -CT brain negative for any evidence of acute intracranial process U/S interpreted by me (1pt. min.). @ -[None done] What testing was considered but not performed or refused? (CT, X-rays, U/S, labs)? Why? @ -[None] What meds were considered but not given or refused? Why? @ -[None] Did you discuss the management of the patient with other professionals (pro fessionals i.e. , PA, PRIVATE WATCHMAN, lab, RT, psych nurse, forensic social worker, stock sheets cleaner inspector, teacher, disbursing officer, case filler)? Give summary @ -[No] Was smoking cessation discussed for >3mins.? @ -[No] Was critical care preformed (if so, how long)? @ -[No] Were there social determinants of health that impacted care today? How? (Homelessness, low income, unemployed, alcoholism, drug addiction, [place] sportation, low edu. Level, literacy, decrease access to med. care, residential, rehab)? @ -[No] Was there de-escalation of care discussed even if they declined (Discuss DNR or withdrawal of care, Hospice)? DNR status @ -[No] What co-morbidities impacted this encounter? (DM, HTN, Smoking, COPD, CAD, Cancer, CVA, ARF, Chemo, Hep., AIDS, mental health diagnosis, sleep apnea, morbid obesity)? @ -[None] Was patient admitted / discharged? Hospital course, mention meds given and route, prescriptions, significant lab abnormalities, going to OR and other pertinent info. @ Discharge. This is a pleasant 37-year-old female who presents the emergency department with headache Patient had a thorough history and physical exam performed on the ED. Heart rate regular rate and rhythm, lungs clear to auscultation bilaterally, abdomen soft and nontender. Patient has a slight tremor. Patient able to ambulate with a steady gait and no focal neuro deficits noted. He should had lab work and imaging performed which was essentially unremarkable. I discussed the results in detail with the patient and the patient's son who verbalized understanding and all questions were addressed. Patient was given 1 L of IV fluids, Toradol, Compazine, Benadryl, Dilaudid with symptomatic relief while in the emergency department.. Return precautions were discussed at length. He should discharged in stable condition. [place] [facility] who agrees with Plan of care,. Undiagnosed new problem with uncertain prognosis? @ -[No] Drug Therapy requiring intensive monitoring for toxicity (Heparin, Nitro, In sulin, Cardizem)? @ -[No] Were any procedures done? @ -[No] Diagnosis/symptom? @ -headache Acute, or Chronic, or Acute on Chronic? @ -Acute Uncomplicated (without systemic symptoms) or Complicated (systemic symptoms)? @ -Uncomplicated Side effects of treatment? @ -[No] Exacerbation, Progression, or Severe Exacerbation? @ -[No] Poses a threat to life or bodily function? How? (Chest pain, [place], [place], pneumonia, PE, COPD, DKA, ARF, appy, cholecystitis, CVA, Diverticulitis, Homicidal, Suicidal, threat to staff... and all critical care pts) @ -Low likelihood - Lab Data Result diagrams: 10/28/22 18:11 10/28/22 18:11 Lab Results 10/28/22 10/28/22 Range/Units 18:11 18:11 WBC 9.2 (3.8-10.6) k/uL RBC 4.63 (3.80-5.40) m/uL Hgb 13.5 (11.4-16.0) gm/dL Hct 41.8 (34.0-46.0) % MCV 90.3 (80.0-100.0) fL MCH 29.1 (25.0-35.0) pg MCHC 32.2 (31.0-37.0) g/dL RDW 13.5 (11.5-15.5) % Plt Count 330 (150-450) k/uL MPV 7.4 Neutrophils % 64 % Lymphocytes % 27 % Monocytes % 5 % Eosinophils % 3 % Basophils % 0 % Neutrophils # 5.8 (1.3-7.7) k/uL Lymphocytes # 2.5 (1.0-4.8) k/uL Monocytes # 0.5 (0-1.0) k/uL Eosinophils # 0.3 (0-0.7) k/uL Basophils # 0.0 (0-0.2) k/uL Sodium 138 (137-145) mmol/L Potassium 4.2 (3.5-5.1) mmol/L Chloride 104 (98-107) mmol/L Carbon Dioxide 27 (22-30) mmol/L Anion Gap 7 mmol/L BUN 17 (7-17) mg/dL Creatinine 0.75 (0.52-1.04) mg/dL Est GFR (CKD-EPI)AfAm >90 (>60 ml/min/1.73 sqM) Est GFR (CKD-EPI)NonAf >90 (>60 ml/min/1.73 sqM) Glucose 108 H (74-99) mg/dL Calcium 8.8 (8.4-10.2) mg/dL Total Bilirubin 0.3 (0.2-1.3) mg/dL AST 41 H (14-36) U/L ALT 48 H (4-34) U/L Alkaline Phosphatase 105 (38-126) U/L Total Protein 6.6 (6.3-8.2) g/dL Albumin 3.8 (3.5-5.0) g/dL Disposition Clinical Impression: Headache Disposition: HOME SELF-CARE Condition: Stable Instructions (If sedation given, give patient instructions): Acute Headache (ED) Additional Instructions: Please return to the nearest emergency department if symptoms worsen or persist Is patient prescribed a controlled substance at d/c from ED?: No Referrals: Alfred Varela MD [REFERRING] - 1-2 days Time of Disposition: 21:05
[2022-10-28] MEDS ORDERED: SODIUM CHLORIDE 0.9% 1,000 ML IV ONE (17:42)
[2022-10-28] MEDS ORDERED: PROCHLORPERAZINE INJ 10 MG/2 ML VIAL IVP STA (17:42)
[2022-10-28] MEDS ORDERED: diphenhydrAMINE 50 MG/ML 1 ML VIAL IVP STA (17:42)
[2022-10-28 18:19] LABS: Basophils % (A) 0 %; Eosinophils # (A) 0.3 k/uL (0-0.7); Eosinophils % (A) 3 %; HCT 41.8 % (34.0-46.0); HGB 13.5 gm/dL (11.4-16.0); Lymphocytes # (A) 2.5 k/uL (1.0-4.8); Lymphocytes % (A) 27 %; MCH 29.1 pg (25.0-35.0); MCHC 32.2 g/dL (31.0-37.0); MCV 90.3 fL (80.0-100.0); Mean Platelet Volume 7.4; Monocytes # (A) 0.5 k/uL (0-1.0); Monocytes % (A) 5 %; Neutrophils # (A) 5.8 k/uL (1.3-7.7); Neutrophils % (A) 64 %; Platelet Count 330 k/uL (150-450); RBC 4.63 m/uL (3.80-5.40); RDW 13.5 % (11.5-15.5); WBC 9.2 k/uL (3.8-10.6)
--- NOTE | 2022-10-28 18:22 | CT ---
EXAMINATION TYPE: CT brain cspine wo con CT DLP: 1460.2 mGycm, Automated exposure control for dose reduction was used. DATE OF EXAM: 10/28/2022 5:40 PM COMPARISON: 10/16/2022 CLINICAL INDICATION:Female, 37 years old with history of pain; headache TECHNIQUE: Brain: Multiple axial CT images of the brain were obtained without IV contrast. Cspine: Axial CT images from the skull base to the inferior aspect of T2 we obtained without intraven ous contrast. Coronal and sagittal reformatted images were also reviewed. FINDINGS: Brain: Extra-axial spaces: No abnormal extra-axial fluid collections. Ventricular system: Within normal limits Cerebral parenchyma: No acute intraparenchymal hemorrhage or mass effect. The hicks-white junction is well differentiated. Cerebellum: Unremarkable. Mass effect: No evidence of midline shift. Intracranial vasculature: unremarkable Soft tissues: Normal. Calvarium/osseous structures: No depressed skull fracture. Paranasal sinuses and mastoid air cells: Clear. Visualized orbits: Orbital contents are intact. Cervical spine: Fracture: None. Osseous structures: Unremarkable Vertebral alignment: Within normal limits. Spinal canal/Neural Foramina: No evidence of significant spinal canal narrowing. No evidence for sign ificant neural foraminal stenosis. Neck soft tissues: Prevertebral soft tissues are within normal limits. Other: The airway is patent. The lung apices are clear. IMPRESSION: 1. No acute intracranial process. 2. No evidence of cervical spine fracture.
[2022-10-28 18:35] LABS: ALT 48 U/L (4-34); AST 41 U/L (14-36); African American GFR (CKD) >90 (>60 ml/min/1.73 sqM); Albumin 3.8 g/dL (3.5-5.0); Alkaline Phosphatase 105 U/L (38-126); Anion Gap 7 mmol/L; Blood Urea Nitrogen 17 mg/dL (7-17); Calcium 8.8 mg/dL (8.4-10.2); Carbon Dioxide 27 mmol/L (22-30); Chloride 104 mmol/L (98-107); Glucose 108 mg/dL (74-99); Non-African American GFR(CKD) >90 (>60 ml/min/1.73 sqM); Potassium 4.2 mmol/L (3.5-5.1); Sodium 138 mmol/L (137-145); Total Bilirubin 0.3 mg/dL (0.2-1.3); Total Protein 6.6 g/dL (6.3-8.2)
[2022-10-28] MEDS ORDERED: HYDROmorphone 0.5 MG/0.5 ML SYRINGE IVP STA (20:19)
[2022-10-28 21:42] VITALS: BP 111/78; TEMP 98.7
== END 2022-10-28 22:26 | disposition home or self-care (01) ==
LOC: EC 15:15
DX: G43.909 Migraine, unspecified, not intractable, without status migrainosus (principal); J45.909 Unspecified asthma, uncomplicated; E11.9 Type 2 diabetes mellitus without complications; K21.9 Gastro-esophageal reflux disease without esophagitis; G47.30 Sleep apnea, unspecified; E07.9 Disorder of thyroid, unspecified; F41.9 Anxiety disorder, unspecified; F31.9 Bipolar disorder, unspecified; Z79.890 Hormone replacement therapy; Z79.899 Other long term (current) drug therapy; Z79.84 Long term (current) use of oral hypoglycemic drugs; Z88.5 Allergy status to narcotic agent; Z88.6 Allergy status to analgesic agent; Z88.8 Allergy status to other drugs, medicaments and biological substances
CPT/HCPCS: 36415; 80053; 85025; 72125; 70450; 99284; 96374; 96375 ×2; 96361; J1200; J0780; J1170

== ENCOUNTER → 2022-10-30 | Outpatient (CLI) | payer OTHER ==
[2022-10-30 14:09] VITALS: BP 118/82; PULSE 52; TEMP 98.5; BMI 40.5
--- NOTE | 2022-11-21 08:33 | P.HPBAR ---
Bariatric H&P - History & Physicial H&P Date: 10/30/22 History & Physicial: Visit/CC: sleeve F/U Patient initial contact: Initial weight: 312 kg Initial weight in pounds: 687.84 Height: 5 ft 7 in Initial BMI: 107.7 Last weight: Current weight: 117.48 kg Current weight in pounds: 259.00 Current BMI: 40.5 [place] body weight (based on NIH guidelines): 61.235 kg Excess body weight loss: 77.5% The patient is a 37 year-old F who presents for Bariatric Assessment. Patient rents today for bariatric follow-up. Patient is doing fairly well for sleeve gastrectomy. She has had minimal GERD. She states her diabetes is under better control. Her last hemoglobin A1c was 6.0 Past Medical History Past Medical History: Asthma, Diabetes Mellitus, Fibromyalgia, GERD/Reflux, Sleep Apnea/CPAP/BIPAP, Thyroid Disorder Additional Past Medical History / Comment(s): Migraines with aura, DDD, NIDDM type II, diverticulitis with perforation/colostomy since reversed, IBS, chronic seroma, CARLITOS/no device, polycystic ovaries, hypothyroid, season allergies History of Any Multi-Drug Resistant Organisms: None Reported Past Surgical History: Bariatric Surgery, Cholecystectomy, Uterine Ablation Additional Past Surgical History / Comment(s): 06/06/21 sleeve gastrectomy, rt Breast biopsy. bowel resection with colostomy/ later colostomy reversal, abdominal surgery to remove scar tissue, EGD, colonoscopy, back pain procedures uterine ablation, lysis of adhesions 07/11/22 Past Anesthesia/Blood Transfusion Reactions: No Reported Reaction Additional Past Anesthesia/Blood Transfusion Reaction / Comm: no hx blood transfusion, received monoclonal antibodies in Feb 2021 Past Psychological History: Anxiety, Bipolar, Depression Additional Psychological History / Comment(s): Pt has eating disorder-binge eater, borderline personality disorder. Pt resides with her boyfriend and his mother. She is independent. Smoking Status: Never smoker Past Alcohol Use History: Occasional Past Drug Use History: None Reported - Past Family History Mother History Unknown: Yes Family Medical History: COPD Additional Family Medical History / Comment(s): Mother from COPD at the age of 55 yrs. Brother(s) Family Medical History: Diabetes Mellitus Father Family Medical History: Unable to Obtain Surgical - Exam Vital Signs Temp Pulse BP 98.5 F 52 L 118/82 10/30/22 14:07 10/30/22 14:07 10/30/22 14:07 - General well developed, well nourished, no distress - Abdomen Abdomen: soft, non tender Bariatric Assessment & Plan Plan: Resolving morbid piece. Patient's GERD is minimal and will be observed. She will follow-up in 8-12 weeks. Bariatric Checklist Checklist: Plan: Checklist: EGD: 1. Hiatal hernia: 2. H. Pylori: HgbA1c: Vitamin D: Smoking: Never smoker Primary care physician referral: Dr. Alaniz Psychiatry clearance: Cardiology clearance: Sleep study: Diet journal: VTE risk score: VTE risk level: Rehab needs at discharge:
== END ==
LOC: BARWHC3 12:47
PROVIDERS: ATTEND Surgery
DX: E66.01 Morbid (severe) obesity due to excess calories (principal); J45.909 Unspecified asthma, uncomplicated; K21.9 Gastro-esophageal reflux disease without esophagitis; G47.33 Obstructive sleep apnea (adult) (pediatric); M79.7 Fibromyalgia; E11.9 Type 2 diabetes mellitus without complications; G43.909 Migraine, unspecified, not intractable, without status migrainosus; E03.9 Hypothyroidism, unspecified; M51.36 Other intervertebral disc degeneration, lumbar region; L76.34 Postprocedural seroma of skin and subcutaneous tissue following other procedure; K57.92 Diverticulitis of intestine, part unspecified, without perforation or abscess without bleeding; K58.9 Irritable bowel syndrome, unspecified; Z68.41 Body mass index [BMI] 40.0-44.9, adult; Z99.89 Dependence on other enabling machines and devices; Z98.84 Bariatric surgery status; Z88.5 Allergy status to narcotic agent; Z88.1 Allergy status to other antibiotic agents; Z79.890 Hormone replacement therapy
CPT/HCPCS: 99211

== ENCOUNTER → 2022-11-08 | Outpatient (CLI) | payer OTHER | END | disposition home or self-care (01) | LOC: LABWHC1 10:17 | PROVIDERS: ATTEND Psychiatry & Neurology Neurology | DX: I49.9 Cardiac arrhythmia, unspecified (principal); R94.31 Abnormal electrocardiogram [ECG] [EKG] | CPT/HCPCS: 36415; 93005 ==

== ENCOUNTER 2022-11-13 18:58 | Emergency (ER) | payer OTHER ==
[2022-11-13 19:06] VITALS: RESP 18; TEMP 98.5
[2022-11-13] MEDS ORDERED: KETOROLAC 15 MG/ML 1 ML VIAL IVP STA (23:03)
[2022-11-13] MEDS ORDERED: diphenhydrAMINE 50 MG/ML 1 ML VIAL IVP STA (23:03)
[2022-11-13] MEDS ORDERED: METOCLOPRAMIDE 5 MG/ML 2 ML VIAL IVP STA (23:03)
[2022-11-13] MEDS ORDERED: SODIUM CHLORIDE 0.9% 1,000 ML IV STA (23:03)
[2022-11-13] MEDS ORDERED: DEXAMETHASONE SOD PHOSPHATE 10 MG/ML 1 ML VIAL IVP STA (23:03)
--- NOTE | 2022-11-14 02:02 | ED ---
Headache HPI - General Chief Complaint: Headache Stated Complaint: Migraine Time Seen by Provider: 11/13/22 23:03 Mode of arrival: ambulatory Limitations: no limitations - History of Present Illness Initial Comments: Patient is a 37-year-old female presenting emergency Department chief complaint migraine. Patient has history of migraine states this feels similar. No recent head trauma or fall. She feels nauseous no vomiting. No numbness and tingling. No weakness. Patient states she is due to get her migraine injection in a few days at her neurology office. - Related Data Home Medications Medication Instructions Recorded Confirmed Levothyroxine Sodium [Synthroid] 50 mcg PO DAILY 05/05/14 10/30/22 Cetirizine HCl [Zyrtec] 10 mg PO DAILY 08/30/19 10/30/22 Pregabalin [Lyrica] 150 mg PO BID 08/30/19 10/30/22 ARIPiprazole [Abilify] 2 mg PO HS 09/14/20 10/30/22 Venlafaxine HCl [Effexor XR] 225 mg PO HS 09/14/20 10/30/22 Erenumab-Aooe [Aimovig 140 mg SQ Q30D 09/22/20 10/30/22 Autoinjector] HYDROcodone/APAP 7.5-325MG [[place] 1 tab PO BID PRN 08/23/21 10/30/22 7.5-325] Atogepant [Qulipta] 60 mg PO HS 11/28/21 10/30/22 Fgxwpxojmxeyew-VW-Uwvubwhobp 1 tab PO DAILY 12/12/21 10/30/22 [Folbic] Ferrous Sulfate [Iron (65 MG 325 mg PO DAILY 12/12/21 10/30/22 Elemental)] Nystatin 100,000 Unit/gm Powd 1 applic TOPICAL BID PRN 12/12/21 10/30/22 [Mycostatin Powder] Nystatin/Triamcin 1 applic TOPICAL BID PRN 12/12/21 10/30/22 [Nystatin-Triamcinolone Cream] Cyclobenzaprine [Flexeril] 10 mg PO DAILY PRN 01/06/22 10/30/22 Butalb/Acetaminophen/Caffeine 1 tab PO Q6H PRN 05/19/22 10/30/22 [Fioricet 50-325-40] Ergocalciferol (Vitamin D2) 1,250 mcg PO GARCIA 05/19/22 10/30/22 [Drisdol (50,000 Iu)] Fluconazole 200 mg PO GARCIA 05/19/22 10/30/22 rOPINIRole HCL [Requip] 3 mg PO HS 05/19/22 10/30/22 Acetaminophen Tab [Tylenol] 650 mg PO Q6H PRN 10/02/22 10/30/22 Lasmiditan Succinate [Reyvow] 50 mg PO DAILY PRN 10/02/22 10/30/22 Metoclopramide [Reglan] 10 mg PO DAILY PRN 10/02/22 10/30/22 Semaglutide [Wegovy] 1.7 mg SQ GARCIA 10/02/22 10/30/22 Ketorolac [Toradol] 10 mg PO Q6HR PRN 10/30/22 10/30/22 Previous Rx's Medication Instructions Recorded Ibuprofen [Motrin] 600 mg PO Q6HR PRN #40 tab 07/11/22 Ibuprofen [Motrin] 800 mg PO Q8HR PRN #30 tab 10/14/22 Lidocaine 5% Patch [Lidoderm 5% 1 patch TOPICAL DAILY PRN #7 patch 10/14/22 Patch] Ondansetron Odt [Zofran Odt] 4 mg PO Q8HR PRN #10 tab 10/14/22 Allergies Allergy/AdvReac Type Severity Reaction Status Date / Time codeine AdvReac Hallucinati Verified 10/20/22 15:22 ons tramadol AdvReac Hallucinati Verified 10/20/22 15:22 ons valacyclovir HCl AdvReac BLURRED Verified 10/20/22 15:22 [From Valtrex] VISION Review of Systems ROS Statement: Those systems with pertinent positive or pertinent negative responses have been documented in the HPI. ROS Other: All systems not noted in ROS Statement are negative. Past Medical History Past Medical History: Asthma, Diabetes Mellitus, Fibromyalgia, GERD/Reflux, Sleep Apnea/CPAP/BIPAP, Thyroid Disorder Additional Past Medical History / Comment(s): Migraines with aura, DDD, NIDDM type II, diverticulitis with perforation/colostomy since reversed, IBS, chronic seroma, CARLITOS/no device, polycystic ovaries, hypothyroid, season allergies History of Any Multi-Drug Resistant Organisms: None Reported Past Surgical History: Bariatric Surgery, Cholecystectomy, Uterine Ablation Additional Past Surgical History / Comment(s): 06/06/21 sleeve gastrectomy, rt Breast biopsy. bowel resection with colostomy/ later colostomy reversal, abdominal surgery to remove scar tissue, EGD, colonoscopy, back pain procedures uterine ablation, lysis of adhesions 07/11/22 Past Anesthesia/Blood Transfusion Reactions: No Reported Reaction Additional Past Anesthesia/Blood Transfusion Reaction / Comment(s): no hx blood transfusion, received monoclonal antibodies in Feb 2021 Past Psychological History: Anxiety, Bipolar, Depression Smoking Status: Never smoker Past Alcohol Use History: Occasional Past Drug Use History: None Reported - Past Family History Mother History Unknown: Yes Family Medical History: COPD Additional Family Medical History / Comment(s): Mother from COPD at the age of 55 yrs. Brother(s) Family Medical History: Diabetes Mellitus Father Family Medical History: Unable to Obtain General Exam Limitations: no limitations General appearance: alert Head exam: Present: atraumatic, normocephalic, normal inspection Eye exam: Present: normal appearance, PERRL, EOMI. Absent: scleral icterus, conjunctival injection, periorbital swelling Respiratory exam: Present: normal lung sounds bilaterally. Absent: respiratory distress, wheezes, rales, rhonchi, stridor Cardiovascular Exam: Present: regular rate, normal rhythm, normal heart sounds. Absent: systolic murmur, diastolic murmur, rubs, gallop, clicks Neurological exam: Present: alert, oriented X3, CN II-XII intact Expanded Sensory exam: Upper Extremity Light Touch: Normal, Lower Extremity Light Touch: Normal Motor strength exam: RUE: 5, LUE: 5, RLE: 5, LLE: 5 Psychiatric exam: Present: normal affect, normal mood Skin exam: Present: warm, dry, intact, normal color. Absent: rash Course Vital Signs 11/13/22 11/14/22 19:05 02:21 Temperature 98.5 F Pulse Rate 77 72 Respiratory 18 18 Rate Blood Pressure 106/72 123/77 O2 Sat by Pulse 100 95 Oximetry Medical Decision Making - Medical Decision Making Was pt. sent in by a medical professional or institution (, PA, WINE MASTER, urgent care, hospital, or detention...) When possible be specific @ -No Did you speak to anyone other than the patient for history (EMS, parent, family, police, friend...)? What history was obtained from this source @ -No Did you review nursing and triage notes (agree or disagree)? Why? @ -I reviewed and agree with nursing and triage notes Were old charts reviewed (outside hosp., previous admission, EMS record, old EKG, old radiological studies, urgent care reports/EKG's, detention records)? Report findings @ -No old charts were reviewed Differential Diagnosis (chest pain, altered mental status, abdominal pain women, abdominal pain men, vaginal bleeding, weakness, fever, dyspnea, syncope, headache, dizziness, GI bleed, back pain, seizure, CVA, palpatations, mental health)? @ Differential Headache: Migraine, tension, cluster, carbon monoxide, central venous thrombosis, pension karma temporal arteritis, acute closure glaucoma, intercranial hemorrhage, mastoiditis, sinusitis, head injury, this is not meant to be an all-inclusive list. EKG interpreted by me (3pts min.). @ none X-rays interpreted by me (1pt min.). @ -None done CT interpreted by me (1pt min.). @ -None done U/S interpreted by me (1pt. min.). @ -None done What testing was considered but not performed or refused? (CT, X-rays, U/S, labs)? Why? @ -None What meds were considered but not given or refused? Why? @ -None Did you discuss the management of the patient with other professionals (professionals i.e. , PA, WINE MASTER, lab, RT, psych nurse, public health social worker, manager enterprise, teacher, search and rescue officer, corrections caseworker)? Give summary @ -No Was smoking cessation discussed for >3mins.? @ -No Was critical care preformed (if so, how long)? @ -No Were there social determinants of health that impacted care today? How? (Homelessness, low income, unemployed, alcoholism, drug addiction, transportat ion, low edu. Level, literacy, decrease access to med. care, senior care, rehab)? @ -No Was there de-escalation of care discussed even if they declined (Discuss DNR or withdrawal of care, Hospice)? DNR status @ -No What co-morbidities impacted this encounter? (DM, HTN, Smoking, COPD, CAD, Cancer, CVA, ARF, Chemo, Hep., AIDS, mental health diagnosis, sleep apnea, morbid obesity)? @ -None Was patient admitted / discharged? Hospital course, mention meds given and route, prescriptions, significant lab abnormalities, going to OR and other pertinent info. @ -Discharged Undiagnosed new problem with uncertain prognosis? @ -No Drug Therapy requiring intensive monitoring for toxicity (Heparin, Nitro, Insulin, Cardizem)? @ -No Were any procedures done? @ -No Diagnosis/symptom? @ Migraine Acute, or Chronic, or Acute on Chronic? @ Acute on chronic Uncomplicated (without systemic symptoms) or Complicated (systemic symptoms)? @ Uncomplicated Side effects of treatment? @ -No Exacerbation, Progression, or Severe Exacerbation? @ -No Poses a threat to life or bodily function? How? (Chest pain, [place], [place], pneumonia, PE, COPD, DKA, ARF, appy, cholecystitis, CVA, Diverticulitis, Homicidal, Suicidal, threat to staff... and all critical care pts) @ -No Dr. Anderson is my attending Disposition Clinical Impression: Migraine Disposition: HOME SELF-CARE Condition: Good Instructions (If sedation given, give patient instructions): Acute Headache (ED) Additional Instructions: Take medication as directed. Please follow-up with neurology in 1-2 days. Return to the emergency department if you experience new, concerning, or worsening symptoms. Is patient prescribed a controlled substance at d/c from ED?: No Referrals: Alfred Varela MD [Primary Care Provider] - 1-2 days
[2022-11-14 02:23] VITALS: BP 123/77; PULSE 72
== END 2022-11-14 02:31 | disposition home or self-care (01) ==
LOC: EC 18:58
DX: G43.909 Migraine, unspecified, not intractable, without status migrainosus (principal); E11.9 Type 2 diabetes mellitus without complications; F31.9 Bipolar disorder, unspecified; F41.9 Anxiety disorder, unspecified; G47.33 Obstructive sleep apnea (adult) (pediatric); J45.909 Unspecified asthma, uncomplicated; K21.9 Gastro-esophageal reflux disease without esophagitis; E07.9 Disorder of thyroid, unspecified; Z79.890 Hormone replacement therapy; Z79.899 Other long term (current) drug therapy; Z88.5 Allergy status to narcotic agent; Z88.8 Allergy status to other drugs, medicaments and biological substances; Z90.49 Acquired absence of other specified parts of digestive tract
CPT/HCPCS: 96374; 96375 ×3; 96361 ×3; 99283; J1200; J1100; J2765; J1885

== ENCOUNTER 2022-11-19 12:02 | Observation (INO) | payer OTHER ==
[2022-11-19] MEDS ORDERED: SODIUM CHLORIDE 0.9% 1,000 ML IV STA (12:47)
[2022-11-19 13:04] LABS: Basophils % (A) 0 %; Eosinophils # (A) 0.1 k/uL (0-0.7); Eosinophils % (A) 2 %; Lymphocytes # (A) 1.6 k/uL (1.0-4.8); Lymphocytes % (A) 21 %; MCH 29.3 pg (25.0-35.0); MCHC 32.5 g/dL (31.0-37.0); MCV 90.2 fL (80.0-100.0); Mean Platelet Volume 7.6; Monocytes # (A) 0.3 k/uL (0-1.0); Monocytes % (A) 4 %; Neutrophils # (A) 5.4 k/uL (1.3-7.7); Neutrophils % (A) 72 %; Platelet Count 313 k/uL (150-450); RBC 4.77 m/uL (3.80-5.40); RDW 13.2 % (11.5-15.5); WBC 7.5 k/uL (3.8-10.6)
[2022-11-19 13:22] LABS: ALT 27 U/L (4-34); AST 27 U/L (14-36); African American GFR (CKD) >90 (>60 ml/min/1.73 sqM); Albumin 3.8 g/dL (3.5-5.0); Alkaline Phosphatase 93 U/L (38-126); Anion Gap 6 mmol/L; Blood Urea Nitrogen 13 mg/dL (7-17); Calcium 9.2 mg/dL (8.4-10.2); Carbon Dioxide 30 mmol/L (22-30); Chloride 103 mmol/L (98-107); Creatine Kinase 26 U/L (30-135); Glucose 145 mg/dL (74-99); Non-African American GFR(CKD) >90 (>60 ml/min/1.73 sqM); Potassium 4.1 mmol/L (3.5-5.1); Sodium 139 mmol/L (137-145); Total Bilirubin 0.5 mg/dL (0.2-1.3); Total Protein 6.6 g/dL (6.3-8.2)
--- NOTE | 2022-11-19 13:31 | ED ---
General Adult HPI - General Chief complaint: Headache Stated complaint: Left sided weakness, neck pain Time Seen by Provider: 11/19/22 12:35 Source: patient, RN notes reviewed Mode of arrival: ambulatory Limitations: no limitations - History of Present Illness Initial comments: Patient is a 37-year-old female presenting to the emergency room with a headaches which is generalized in nature radiating into her head with complaints of left-sided weakness. She reports that this pain began and left- sided weakness began yesterday afternoon approximately 36 hours ago. She has a history of chronic headaches; she reports that the headache is similar to her chronic headaches however she is concerned regarding her weakness. She denies any other focal neurological deficits she does report associated nausea vomiting without any recent vomiting. She denies any chest pain, shortness of breath, abdominal pain not related to her nausea and vomiting, dizziness, blurred or double vision, difficulty in speaking, difficulty in swallowing, fevers or chills. In addition to her migraine history she has a past medical history significant for diabetes, sleep apnea, hypothyroidism, GERD and fibromyalgia. - Related Data Home Medications Medication Instructions Recorded Confirmed Levothyroxine Sodium [Synthroid] 50 mcg PO DAILY 05/05/14 11/19/22 Cetirizine HCl [Zyrtec] 10 mg PO DAILY 08/30/19 11/19/22 Pregabalin [Lyrica] 150 mg PO BID 08/30/19 11/19/22 ARIPiprazole [Abilify] 2 mg PO HS 09/14/20 11/19/22 Venlafaxine HCl [Effexor XR] 225 mg PO HS 09/14/20 11/19/22 Erenumab-Aooe [Aimovig 140 mg SQ Q30D 09/22/20 11/19/22 Autoinjector] HYDROcodone/APAP 7.5-325MG [[place] 1 tab PO BID PRN 08/23/21 11/19/22 7.5-325] Atogepant [Qulipta] 60 mg PO HS 11/28/21 11/19/22 Nehpoqwerbxpuc-OI-Illoyiqvzm 1 tab PO DAILY 12/12/21 11/19/22 [Folbic] Ferrous Sulfate [Iron (65 MG 325 mg PO DAILY 12/12/21 11/19/22 Elemental)] Nystatin 100,000 Unit/gm Powd 1 applic TOPICAL BID PRN 12/12/21 11/19/22 [Mycostatin Powder] Cyclobenzaprine [Flexeril] 10 mg PO DAILY PRN 01/06/22 11/19/22 Ergocalciferol (Vitamin D2) 1,250 mcg PO GARCIA 05/19/22 11/19/22 [Drisdol (50,000 Iu)] Fluconazole 200 mg PO GARCIA 05/19/22 11/19/22 Acetaminophen Tab [Tylenol] 650 mg PO Q6H PRN 10/02/22 11/19/22 Lasmiditan Succinate [Reyvow] 50 mg PO DAILY PRN 10/02/22 11/19/22 Metoclopramide [Reglan] 10 mg PO DAILY PRN 10/02/22 11/19/22 Semaglutide [Wegovy] 1.7 mg SQ GARCIA 10/02/22 11/19/22 Ketorolac [Toradol] 10 mg PO Q6HR PRN 10/30/22 11/19/22 Nystatin 1 applic TOPICAL BID PRN 11/19/22 11/19/22 Previous Rx's Medication Instructions Recorded Ibuprofen [Motrin] 800 mg PO Q8HR PRN #30 tab 10/14/22 Allergies Allergy/AdvReac Type Severity Reaction Status Date / Time codeine AdvReac Hallucinati Verified 11/19/22 12:14 ons tramadol AdvReac Hallucinati Verified 11/19/22 12:14 ons valacyclovir HCl AdvReac BLURRED Verified 11/19/22 12:14 [From Valtrex] VISION Review of Systems ROS Statement: Those systems with pertinent positive or pertinent negative responses have been documented in the HPI. ROS Other: All systems not noted in ROS Statement are negative. Past Medical History Past Medical History: Asthma, Diabetes Mellitus, Fibromyalgia, GERD/Reflux, Sleep Apnea/CPAP/BIPAP, Thyroid Disorder Additional Past Medical History / Comment(s): Migraines with aura, DDD, NIDDM type II, diverticulitis with perforation/colostomy since reversed, IBS, chronic seroma, CARLITOS/no device, polycystic ovaries, hypothyroid, season allergies History of Any Multi-Drug Resistant Organisms: None Reported Past Surgical History: Bariatric Surgery, Cholecystectomy, Uterine Ablation Additional Past Surgical History / Comment(s): 06/06/21 sleeve gastrectomy, rt Breast biopsy. bowel resection with colostomy/ later colostomy reversal, abdominal surgery to remove scar tissue, EGD, colonoscopy, back pain procedures uterine ablation, lysis of adhesions 07/11/22 Past Anesthesia/Blood Transfusion Reactions: No Reported Reaction Additional Past Anesthesia/Blood Transfusion Reaction / Comment(s): no hx blood transfusion, received monoclonal antibodies in Feb 2021 Past Psychological History: Anxiety, Bipolar, Depression Smoking Status: Never smoker Past Alcohol Use History: Occasional Past Drug Use History: None Reported - Past Family History Mother History Unknown: Yes Family Medical History: COPD Additional Family Medical History / Comment(s): Mother from COPD at the age of 55 yrs. Brother(s) Family Medical History: Diabetes Mellitus Father Family Medical History: Unable to Obtain General Exam Limitations: no limitations General appearance: alert, in no apparent distress Head exam: Present: atraumatic, normocephalic, normal inspection Eye exam: Present: normal appearance, PERRL, EOMI. Absent: scleral icterus, conjunctival injection, periorbital swelling ENT exam: Present: normal exam, mucous membranes moist Neck exam: Present: normal inspection, tenderness, full ROM Respiratory exam: Present: normal lung sounds bilaterally. Absent: respiratory distress, wheezes, rales, rhonchi, stridor Cardiovascular Exam: Present: regular rate, normal rhythm, normal heart sounds. Absent: systolic murmur, diastolic murmur, rubs, gallop, clicks GI/Abdominal exam: Present: soft, normal bowel sounds. Absent: distended, tenderness, guarding, rebound, rigid Extremities exam: Present: normal inspection. Absent: pedal edema, joint swelling Back exam: Present: normal inspection, full ROM Neurological exam: Present: alert, oriented X3, CN II-XII intact Expanded Speech: Present: fluid speech Cranial nerves: EOM's Intact: Normal, Tongue Deviation: Normal, Nystagmus: Normal, Facial Sensation: Normal Cerebellar function: Finger to Nose: Normal, Heel to [place]: Normal Sensory exam: Upper Extremity Light Touch: Normal, Lower Extremity Light Touch: Normal Motor strength exam: RUE: 5, LUE: 4, RLE: 5, LLE: 4 [place] Total: 15 Psychiatric exam: Present: normal affect, normal mood Skin exam: Present: warm, dry, intact, normal color. Absent: rash Course Vital Signs 11/19/22 12:11 Temperature 98.1 F Pulse Rate 82 Respiratory 18 Rate Blood Pressure 115/80 O2 Sat by Pulse 95 Oximetry Medical Decision Making - Medical Decision Making Medical I'm noWas pt. sent in by a medical professional or institution (, SOILA, MATHEMATICAL ENGINEERING TECHNICIAN, urgent care, hospital, or alf...) When possible be specific @ -No Did you speak to anyone other than the patient for history (EMS, parent, family, police, friend...)? What history was obtained from this source @ -No Did you review nursing and triage notes (agree or disagree)? Why? @ -I reviewed and agree with nursing and triage notes Were old charts reviewed (outside hosp., previous admission, EMS record, old EKG, old radiological studies, urgent care reports/EKG's, alf records)? Report findings @ -No old charts were reviewed Differential Diagnosis (chest pain, altered mental status, abdominal pain women, abdominal pain men, vaginal bleeding, weakness, fever, dyspnea, syncope, headache, dizziness, GI bleed, back pain, seizure, CVA, palpatations, mental health, musculoskeletal)? @ -Differential Headache: Migraine, tension, cluster, carbon monoxide, central venous thrombosis, pension karma temporal arteritis, acute closure glaucoma, intercranial hemorrhage, mastoiditis, sinusitis, head injury, this is not meant to be an all-inclusive list. EKG interpreted by me (3pts min.). @ -None done X-rays interpreted by me (1pt min.). @ -None done CT interpreted by me (1pt min.). @ -CT a of the brain and neck without any acute process, evidence and intercranial bleed, mass or shift. No aneurysms or carotid stenosis noted. U/S interpreted by me (1pt. min.). @ -None done What testing was considered but not performed or refused? (CT, X-rays, U/S, labs)? Why? @ -None What meds were considered but not given or refused? Why? @ -None Did you discuss the management of the patient with other professionals (professionals i.e. SOILA Carrera, MATHEMATICAL ENGINEERING TECHNICIAN, lab, RT, psych nurse, social professionals, retail sales professional, teacher, air control/anti air warfare officer, insurance case manager)? Give summary @ -No Was smoking cessation discussed for >3mins.? @ -No Was critical care preformed (if so, how long)? @ -No Were there social determinants of health that impacted care today? How? (Homelessness, low income, unemployed, alcoholism, drug addiction, transportation, low edu. Level, literacy, decrease access to med. care, usp, rehab)? @ -No Was there de-escalation of care discussed even if they declined (Discuss DNR or withdrawal of care, Hospice)? DNR status @ -No What co-morbidities impacted this encounter? (DM, HTN, Smoking, COPD, CAD, Cancer, CVA, ARF, Chemo, Hep., AIDS, mental health diagnosis, sleep apnea, morbid obesity)? @ -Migraine history Was patient admitted / discharged? Hospital course, mention meds given and route, prescriptions, significant lab abnormalities, going to OR and other pertinent info. @ -37-year-old female presenting to the emergency room with complaints of severe headache ongoing for approximately 36 hours with associated left-sided weakness without any other focal neurological deficits including any paresthesia, visual deficits, ataxia, altered mental status difficulty swallowing or seeing. Symptoms have been ongoing for greater than 36 hours consequently she is not a candidate for TPA and no code stroke is indicated. Will obtain CT of the brain and CTA head and neck, EKG along with laboratory studies along with laboratory studies of CBC, coags, CMP, CK troponin. Will await migraine cocktail until after CT results and good IV fluid bolus. CTA completed of head and neck but CT brain cancelled due to CTA already being completed. CTA brain and neck without acute abnormalitities will proceed to give migraine cocktail of benadryl, toradol, and zofran. Pain persists will give morphine; laboratory results included a normal CBC, normal coag, CMP is normal with the exception of glucose of 145, CK low at 26, troponin negative. Normal renal function and liver enzymes. No indication for further workup at this time however given neurological deficits with headache recommended admission for observation and neurology consult. Patient is agreeable to this plan. Will continue pain management. Spoke with Dr. Maxwell regarding patient's workup and recommendation for admission; she is excepting admission and denies any further orders at this time. Will admit patient in stable condition to observation unit under E services further evaluation and treatment of headache and left-sided weakness. Undiagnosed new problem with uncertain prognosis? @ -No Drug Therapy requiring intensive monitoring for toxicity (Heparin, Nitro, Insulin, Cardizem)? @ -No Were any procedures done? @ -No Diagnosis/symptom? @ -Headache Acute, or Chronic, or Acute on Chronic? @ -Acute on chronic Uncomplicated (without systemic symptoms) or Complicated (systemic symptoms)? @ -Complicated Side effects of treatment? @ -No Exacerbation, Progression, or Severe Exacerbation? @ -No Poses a threat to life or bodily function? How? (Chest pain, [place], OR, pneumonia, PE, COPD, DKA, ARF, appy, cholecystitis, CVA, Diverticulitis, Homicidal, Suicidal, threat to staff... and all critical care pts) @ -No Diagnosis/symptom? @ -Left-sided weakness Acute, or Chronic, or Acute on Chronic? @ -Acute Uncomplicated (without systemic symptoms) or Complicated (systemic symptoms)? @ -Complicated Side effects of treatment? @ -none Exacerbation, Progression, or Severe Exacerbation] @ -no Poses a threat to life or bodily function? @ -Yes, at risk for progressing neurological symptoms. Case discussed with Dr. Bryan. - Lab Data Result diagrams: 11/19/22 12:49 11/19/22 12:49 Lab Results 11/19/22 11/19/22 11/19/22 Range/Units 12:49 12:49 12:49 WBC 7.5 (3.8-10.6) k/uL RBC 4.77 (3.80-5.40) m/uL Hgb 14.0 (11.4-16.0) gm/dL Hct 43.0 (34.0-46.0) % MCV 90.2 (80.0-100.0) fL MCH 29.3 (25.0-35.0) pg MCHC 32.5 (31.0-37.0) g/dL RDW 13.2 (11.5-15.5) % Plt Count 313 (150-450) k/uL MPV 7.6 Neutrophils % 72 % Lymphocytes % 21 % Monocytes % 4 % Eosinophils % 2 % Basophils % 0 % Neutrophils # 5.4 (1.3-7.7) k/uL Lymphocytes # 1.6 (1.0-4.8) k/uL Monocytes # 0.3 (0-1.0) k/uL Eosinophils # 0.1 (0-0.7) k/uL Basophils # 0.0 (0-0.2) k/uL PT 10.4 (9.0-12.0) sec INR 1.0 (<1.2) APTT 25.2 (22.0-30.0) sec Sodium 139 (137-145) mmol/L Potassium 4.1 (3.5-5.1) mmol/L Chloride 103 (98-107) mmol/L Carbon Dioxide 30 (22-30) mmol/L Anion Gap 6 mmol/L BUN 13 (7-17) mg/dL Creatinine 0.71 (0.52-1.04) mg/dL Est GFR (CKD-EPI)AfAm >90 (>60 ml/min/1.73 sqM) Est GFR (CKD-EPI)NonAf >90 (>60 ml/min/1.73 sqM) Glucose 145 H (74-99) mg/dL Calcium 9.2 (8.4-10.2) mg/dL Total Bilirubin 0.5 (0.2-1.3) mg/dL AST 27 (14-36) U/L ALT 27 (4-34) U/L Alkaline Phosphatase 93 (38-126) U/L Creatine Kinase 26 L (30-135) U/L Troponin I (0.000-0.034) ng/mL Total Protein 6.6 (6.3-8.2) g/dL Albumin 3.8 (3.5-5.0) g/dL 11/19/22 Range/Units 12:49 WBC (3.8-10.6) k/uL RBC (3.80-5.40) m/uL Hgb (11.4-16.0) gm/dL Hct (34.0-46.0) % MCV (80.0-100.0) fL MCH (25.0-35.0) pg MCHC (31.0-37.0) g/dL RDW (11.5-15.5) % Plt Count (150-450) k/uL MPV Neutrophils % % Lymphocytes % % Monocytes % % Eosinophils % % Basophils % % Neutrophils # (1.3-7.7) k/uL Lymphocytes # (1.0-4.8) k/uL Monocytes # (0-1.0) k/uL Eosinophils # (0-0.7) k/uL Basophils # (0-0.2) k/uL PT (9.0-12.0) sec INR (<1.2) APTT (22.0-30.0) sec Sodium (137-145) mmol/L Potassium (3.5-5.1) mmol/L Chloride (98-107) mmol/L Carbon Dioxide (22-30) mmol/L Anion Gap mmol/L BUN (7-17) mg/dL Creatinine (0.52-1.04) mg/dL Est GFR (CKD-EPI)AfAm (>60 ml/min/1.73 sqM) Est GFR (CKD-EPI)NonAf (>60 ml/min/1.73 sqM) Glucose (74-99) mg/dL Calcium (8.4-10.2) mg/dL Total Bilirubin (0.2-1.3) mg/dL AST (14-36) U/L ALT (4-34) U/L Alkaline Phosphatase (38-126) U/L Creatine Kinase (30-135) U/L Troponin I <0.012 (0.000-0.034) ng/mL Total Protein (6.3-8.2) g/dL Albumin (3.5-5.0) g/dL Disposition Clinical Impression: Headache, Left-sided weakness Disposition: ADMITTED IP TO THIS HOSP Condition: Stable Is patient prescribed a controlled substance at d/c from ED?: No Time of Disposition: 16:02
[2022-11-19 13:33] LABS: Partial Thromboplastin Time 25.2 sec (22.0-30.0); Prothrombin Time 10.4 sec (9.0-12.0)
--- NOTE | 2022-11-19 13:53 | CT ---
EXAMINATION TYPE: CT angio head neck CT DLP: 1883.7 mGycm, Automated exposure control for dose reduction was used. DATE OF EXAM: 11/19/2022 1:46 PM COMPARISON: CTA head neck 08/23/2021. CLINICAL INDICATION:Female, 37 years old with history of Neuro deficit, acute, stroke suspected; PHH, Chronic headache TECHNIQUE: Axially acquired helical CT angiogram of the head and neck was obtained before and after c ontrast utilizing 65 cc of Isovue-370 administered intravenously. Axial images are supplemented with 3D reconstructions which were post-processed at an independent workstation. NASCET criteria used. FINDINGS: CTA HEAD: No evidence of acute intracranial hemorrhage, mass effect, or midline shift. The ventricles, sulci, a nd cisterns are unremarkable. The visualized portions of the internal carotid arteries, middle cerebral arteries, anterior cerebral arteries, and posterior cerebral arteries are patent. The basilar and vertebral arteries are patent. Left vertebral is dominant. CTA NECK: Right Carotid System: The common carotid artery and external carotid artery are patent. The carotid bifurcation demonstrate s no evidence of hemodynamically significant stenosis. The remaining portions of the internal carotid artery demonstrate normal size without significant narrowing. Left Carotid System: The common carotid artery and external carotid artery are patent. The carotid bifurcation demonstrate s no evidence of hemodynamically significant stenosis. The remaining portions of the internal carotid artery demonstrate normal size without significant narrowing. Vertebral arteries are patent without evidence hemodynamically significant stenosis. There is a three-vessel aortic arch. The origins of the great vessels are patent. No evidence of hemo dynamically significant stenosis. IMPRESSION: 1. No evidence of dissection of the cervical internal carotid arteries or vertebral arteries or any e vidence of significant stenosis at the carotid bifurcations. 2. No evidence of high-grade stenosis or intracranial aneurysm.
--- NOTE | 2022-11-19 14:22 | XR ---
EXAMINATION TYPE: XR chest 2V DATE OF EXAM: 11/19/2022 2:15 PM COMPARISON: Chest radiographs from 06/13/2022 TECHNIQUE: XR chest 2V Frontal and lateral views of the chest. CLINICAL INDICATION:Female, 37 years old with history of altered mental status; FINDINGS: Lungs/Pleura: Low lung volumes are present. There is no evidence of pleural effusion, focal consolida tion, or pneumothorax. Pulmonary vascularity: Unremarkable. Heart/mediastinum: Cardiomediastinal silhouette is unremarkable. Musculoskeletal: No acute osseous pathology. IMPRESSION: Low lung volumes. Not significantly changed from prior.
[2022-11-19] MEDS ORDERED: KETOROLAC 15 MG/ML 1 ML VIAL IVP STA (14:32)
[2022-11-19] MEDS ORDERED: ONDANSETRON 4 MG/2 ML VIAL IVP STA (14:32)
[2022-11-19] MEDS ORDERED: diphenhydrAMINE 50 MG/ML 1 ML VIAL IVP STA (14:32)
[2022-11-19] MEDS ORDERED: MORPHINE SULFATE 4 MG/ML SYRINGE IVP STA (15:23)
[2022-11-19] MEDS ORDERED: NALOXONE 0.4 MG/ML 1 ML VIAL IV PRN (16:24)
[2022-11-19] MEDS: HYDROcodone/APAP 5-325MG 1 EACH TAB PO PRN (17:48)
[2022-11-19] MEDS: SODIUM CHLORIDE 0.9% 1,000 ML IV SCH (17:48)
[2022-11-19] MEDS ORDERED: METOCLOPRAMIDE 10 MG TAB PO PRN (19:12)
[2022-11-19] MEDS ORDERED: [UNRECOGNIZED DRUG - OTHER] PO PRN (19:12)
--- NOTE | 2022-11-19 19:17 | P.HPIM ---
History of Present Illness H&P Date: 11/19/22 Chief Complaint: Intractable headache 57-year-old female patient with history of hypothyroidism, asthma, diabetes mellitus, migraines, presented to ED with intractable headache that has been going on for past 2-3 days; patient reports headaches are associated with neck pain and left-sided weakness; reports nausea; patient received Benadryl, Toradol, morphine in ED without much relief - Patient is being admitted for further intractable migraine Review of Systems REVIEW OF SYSTEMS: CONSTITUTIONAL: No fever, no malaise, no fatigue. HEENT: No recent visual problems or hearing problems. Denied any sore throat. CARDIOVASCULAR: No chest pain, orthopnea, PND, no palpitations, no syncope. PULMONARY: No shortness of breath, no cough, no hemoptysis. GASTROINTESTINAL: No diarrhea, no nausea, no vomiting, no abdominal pain. NEUROLOGICAL: No headaches, no weakness, no numbness. HEMATOLOGICAL: Denies any bleeding or petechiae. GENITOURINARY: Denies any burning micturition, frequency, or urgency. MUSCULOSKELETAL/RHEUMATOLOGICAL: Denies any joint pain, swelling, or any muscle pain. ENDOCRINE: Denies any polyuria or polydipsia. The rest of the 14-point review of systems is negative. Past Medical History Past Medical History: Asthma, Diabetes Mellitus, Fibromyalgia, GERD/Reflux, Sleep Apnea/CPAP/BIPAP, Thyroid Disorder Additional Past Medical History / Comment(s): Migraines with aura, DDD, NIDDM type II, diverticulitis with perforation/colostomy since reversed, IBS, chronic seroma, CARLITOS/no device, polycystic ovaries, hypothyroid, season allergies History of Any Multi-Drug Resistant Organisms: None Reported Past Surgical History: Bariatric Surgery, Cholecystectomy, Uterine Ablation Additional Past Surgical History / Comment(s): 06/06/21 sleeve gastrectomy, rt Breast biopsy. bowel resection with colostomy/ later colostomy reversal, abdominal surgery to remove scar tissue, EGD, colonoscopy, back pain procedures uterine ablation, lysis of adhesions 07/11/22 Past Anesthesia/Blood Transfusion Reactions: No Reported Reaction Additional Past Anesthesia/Blood Transfusion Reaction / Comment(s): no hx blood transfusion, received monoclonal antibodies in Feb 2021 Past Psychological History: Anxiety, Bipolar, Depression Smoking Status: Never smoker Past Alcohol Use History: Occasional Past Drug Use History: None Reported - Past Family History Mother History Unknown: Yes Family Medical History: COPD Additional Family Medical History / Comment(s): Mother from COPD at the age of 55 yrs. Brother(s) Family Medical History: Diabetes Mellitus Father Family Medical History: Unable to Obtain Medications and Allergies Home Medications Medication Instructions Recorded Confirmed Type Levothyroxine Sodium [Synthroid] 50 mcg PO DAILY 05/05/14 11/19/22 History Cetirizine HCl [Zyrtec] 10 mg PO DAILY 08/30/19 11/19/22 History Pregabalin [Lyrica] 150 mg PO BID 08/30/19 11/19/22 History ARIPiprazole [Abilify] 2 mg PO HS 09/14/20 11/19/22 History Venlafaxine HCl [Effexor XR] 225 mg PO HS 09/14/20 11/19/22 History Erenumab-Aooe [Aimovig 140 mg SQ Q30D 09/22/20 11/19/22 History Autoinjector] HYDROcodone/APAP 7.5-325MG [[place] 1 tab PO BID PRN 08/23/21 11/19/22 History 7.5-325] Atogepant [Qulipta] 60 mg PO HS 11/28/21 11/19/22 History Yvrdrytsoeywmt-AA-Hrxnxgmsgv 1 tab PO DAILY 12/12/21 11/19/22 History [Folbic] Ferrous Sulfate [Iron (65 MG 325 mg PO DAILY 12/12/21 11/19/22 History Elemental)] Nystatin 100,000 Unit/gm Powd 1 applic TOPICAL BID PRN 12/12/21 11/19/22 History [Mycostatin Powder] Cyclobenzaprine [Flexeril] 10 mg PO DAILY PRN 01/06/22 11/19/22 History Ergocalciferol (Vitamin D2) 1,250 mcg PO GARCIA 05/19/22 11/19/22 History [Drisdol (50,000 Iu)] Fluconazole 200 mg PO GARCIA 05/19/22 11/19/22 History Acetaminophen Tab [Tylenol] 650 mg PO Q6H PRN 10/02/22 11/19/22 History Lasmiditan Succinate [Reyvow] 50 mg PO DAILY PRN 10/02/22 11/19/22 History Metoclopramide [Reglan] 10 mg PO DAILY PRN 10/02/22 11/19/22 History Semaglutide [Wegovy] 1.7 mg SQ GARCIA 10/02/22 11/19/22 History Ibuprofen [Motrin] 800 mg PO Q8HR PRN #30 tab 10/14/22 11/19/22 Rx Ketorolac [Toradol] 10 mg PO Q6HR PRN 10/30/22 11/19/22 History Nystatin 1 applic TOPICAL BID PRN 11/19/22 11/19/22 History Allergies Allergy/AdvReac Type Severity Reaction Status Date / Time codeine AdvReac Hallucinati Verified 11/19/22 12:14 ons tramadol AdvReac Hallucinati Verified 11/19/22 12:14 ons valacyclovir HCl AdvReac BLURRED Verified 11/19/22 12:14 [From Valtrex] VISION Physical Exam Vitals: Vital Signs Temp Pulse Resp BP Pulse Ox 11/19/22 12:11 98.1 F 82 18 115/80 95 Intake and Output 11/19/22 11/19/22 11/19/22 06:59 14:59 22:59 Other: Weight 113.398 kg PHYSICAL EXAMINATION: GENERAL: The patient is alert and oriented x3, not in any acute distress. Well developed, well nourished. HEENT: Pupils are round and equally reacting to light. EOMI. No scleral icterus. No conjunctival pallor. Normocephalic, atraumatic. No pharyngeal erythema. No thyromegaly. CARDIOVASCULAR: S1 and S2 present. No murmurs, rubs, or gallops. PULMONARY: Chest is clear to auscultation, no wheezing or crackles. ABDOMEN: Soft, nontender, nondistended, normoactive bowel sounds. No palpable organomegaly. MUSCULOSKELETAL: No joint swelling or deformity. EXTREMITIES: No cyanosis, clubbing, or pedal edema. NEUROLOGICAL: Gross neurological examination did not reveal any focal deficits. SKIN: No rashes. Results CBC & Chem 7: 11/19/22 12:49 11/19/22 12:49 Labs: Abnormal Lab Results - Last 24 Hours (Table) 11/19/22 Range/Units 12:49 Glucose 145 H (74-99) mg/dL Creatine Kinase 26 L (30-135) U/L Assessment and Plan Assessment: 1. Intractable headache - Patient takes Reyvow 50 mg daily along with Reglan 10 mg daily and [place] 7.5 mg twice a day - Patient also gives is prolonged 10 mg every 6 hours as needed - We will start patient on IV Toradol, Reglan and Benadryl; recommend consulting neurology 2. Hypothyroidism; levothyroxine 50 MCG daily 3. Asthma; not in exacerbation; continue with home therapy 4. Diabetes mellitus 2; patient takes semaglutide 1 mg subcu every Sunday 5. Neuropathy; patient takes Lyrica 150 mg twice a day DVT prophylaxis; SCDs CODE STATUS; full code
[2022-11-19] MEDS ORDERED: diphenhydrAMINE 50 MG/ML 1 ML VIAL IVP PRN (19:18)
[2022-11-19] MEDS: MORPHINE SULFATE 4 MG/ML SYRINGE IV PRN (20:11)
[2022-11-19] MEDS: VENLAFAXINE HCL ER 75 MG CAP PO SCH (20:11)
[2022-11-19] MEDS: PREGABALIN 75 MG CAP PO SCH (20:12)
[2022-11-19] MEDS: KETOROLAC 15 MG/ML 1 ML VIAL IM SCH (20:50)
[2022-11-20] MEDS: MORPHINE SULFATE 4 MG/ML SYRINGE IV PRN ×4 (02:03→17:01)
[2022-11-20] MEDS: KETOROLAC 15 MG/ML 1 ML VIAL IM SCH ×2 (02:04→09:40)
[2022-11-20] MEDS: LEVOTHYROXINE 50 MCG TAB PO SCH (06:11)
[2022-11-20] MEDS: SODIUM CHLORIDE 0.9% 1,000 ML IV SCH ×2 (06:12→20:00)
[2022-11-20] MEDS: HYDROcodone/APAP 5-325MG 1 EACH TAB PO PRN (09:52)
[2022-11-20] MEDS: PREGABALIN 75 MG CAP PO SCH ×2 (09:53→19:59)
[2022-11-20] MEDS: KETOROLAC 15 MG/ML 1 ML VIAL IVP SCH ×3 (09:53→23:08)
[2022-11-20] MEDS ORDERED: KETOROLAC 15 MG/ML 1 ML VIAL IVP SCH (12:00)
[2022-11-20] MEDS: HYDROcodone/APAP 7.5-325MG 1 EACH TAB PO PRN (15:28)
--- NOTE | 2022-11-20 16:02 | P.PN ---
Subjective Progress Note Date: 11/20/22 57-year-old female patient with history of hypothyroidism, asthma, diabetes mellitus, migraines, presented to ED with intractable headache that has been going on for past 2-3 days; patient reports headaches are associated with neck pain and left-sided weakness; reports nausea; patient received Benadryl, Toradol, morphine in ED without much relief - Patient is being admitted for further intractable migraine 11/20/2022 Patient is seen and evaluated in follow-up today continuing to report headache and pressure on her right side that radiates around the back of her head. Patient reports she has history of migraine headaches and follows with Dr. Azar in the outpatient setting. Given patient's significant symptoms and continued pain with no relief will consult and appreciate input recommendations from neurology. On exam patient is not photosensitive although does have difficulty with moving her neck and continues to report pain. Patient is afebrile with no reports of chest pain or shortness of breath noted. Encouraged to increase activity as tolerated and encouraged oral intake. Will await neurology evaluation. Review of systems: Constitutional: No reports of fatigue, fever, or chills Cardiovascular: No reports of chest pain or palpitations Respiratory: No reports of shortness of breath or cough GI: No reports of nausea, vomiting, or diarrhea : No reports of dysuria or retention Neurovascular: reports of continued head pressure and headache that radiates from the right side around the back All medications have been reviewed Physical exam: GENERAL: The patient is alert and oriented x3, obese. Well developed, well nourished. HEENT: Pupils are round and equally reacting to light. EOMI. No scleral icterus. No conjunctival pallor. Normocephalic, atraumatic. No pharyngeal erythema. No thyromegaly. CARDIOVASCULAR: S1 and S2 present. No murmurs, rubs, or gallops. PULMONARY: Chest is clear to auscultation, no wheezing or crackles. ABDOMEN: Soft, nontender, nondistended, normoactive bowel sounds. No palpable organomegaly. MUSCULOSKELETAL: No joint swelling or deformity. EXTREMITIES: No cyanosis, clubbing, or pedal edema. NEUROLOGICAL: Gross neurological examination did not reveal any focal deficits. SKIN: No rashes. Assessment: -Intractable headache -Hypothyroidism -Asthma; not in exacerbation -Diabetes mellitus 2 -Neuropathy -Obesity with a BMI of 39.2 -DVT prophylaxis; SCDs -GI prophylaxis -full code Plan: Recommend continue current medications and management and will have neurology evaluate the patient. Patient continues with headache and pain on the right side of her head that radiates to the back of her head. Patient reports she fo llows with Dr. Azar outpatient neurology Home medications reviewed and resumed as appropriate Will await neurology evaluation Encouraged increased activity as tolerated Encouraged oral intake possible discharge in the next 24-48 hours The impression and plan of care has been dictated by Rachel Peñaloza, Nurse Practitioner as directed. Dr. Mello MD I have performed a history and examination and MDM of this patient, discussed the same with the dictator, and agree with the dictator's assessment and plan as written ,documented as a scribe. Based on total visit time, I have performed more than 50% of the visit. Objective - Vital Signs Vital signs: Vital Signs Temp 98.1 F 11/20/22 07:00 Pulse 70 11/20/22 07:00 Resp 14 11/20/22 07:00 BP 115/75 11/20/22 07:00 Pulse Ox 95 11/20/22 08:54 FiO2 21 11/20/22 08:54 Intake & Output 11/19/22 11/20/22 11/20/22 18:59 06:59 18:59 Weight 113.398 kg Other: Voiding Method Toilet # Voids 3 - Labs CBC & Chem 7: 11/19/22 12:49 11/19/22 12:49 Labs: Abnormal Lab Results - Last 24 Hours (Table) 11/19/22 Range/Units 12:49 Glucose 145 H (74-99) mg/dL Creatine Kinase 26 L (30-135) U/L
--- NOTE | 2022-11-20 17:39 | P.CNNES ---
History of Present Illness Consult date: 11/20/22 Requesting physician: Rachel Peñaloza Reason for Consult: Headache, history of migraines History of Present Illness: Patient is a 37-year-old female well known to the neurology service from previous history of migraines, came to the hospital yesterday at 12:02 PM for breakthrough migraine. Patient states that headache started on last 11/18/2022. She has received her Aimovig 140 mg injection on 11/12/2022. She is noticing some weakness of the left side of the body including face arm and leg. Patient currently takes Quilipta 60 mg at bedtime for prophylaxis, and also takes Reyvow as needed for migraine treatment. Patient is also noticing pain and weakness of left arm. Back of her neck was on fire. She has pressure involving right side of the head. Her face feels funny. She feels as if she is sucking on her lips although she is not. She came to the hospital because of migraines and these symptoms. Vital signs on arrival blood pressure 115/80, pulse 82, temperature 98.1. Blood test shows normal CBC, PT/PTT, normal CMP. CRP is mildly elevated 1.4. Troponin negative. Patient had a previous MRI of the brain with and without contrast on 07/21/2017, which revealed no evidence of a recent infarct. Uxts-ia-dojjwjmi nonspecific white matter changes somewhat prolonged for patient's age, in patient of this age demyelinating disease distally excluded among the possible broad differential. EKG shows sinus rhythm. Chest x-ray showed low lung volumes. Not significant change from prior. Patient apparently was seen by Dr. Chivo Vasquez in consultation recently on 08/24/2021 for cephalgia with slurred speech. Patient was diagnosed with status migrainosus with aura. Her stuttering was felt functional. Stroke TIA was less likely. Patient does have chronic history of migraine with aura. Patient has morbid obesity status post gastric bypass in May 2020. Patient at that time was on Aimovig, Topamax 100 mg daily, rizatriptan 10 mg daily as needed, Zofran. Dr. Vasquez has recommended MRI with MRV as an outpatient. Botox was recommended. Patient was also taking but control pill 1.5 mg30 g tablet at bedtime. Patient has history of migraines for over 20 years. Prior to getting headache, she gets visual change then gets a migraine that can last couple days. Patient follows up with Dr. Matias team. It was mentioned that patient previously was on Topamax 200 mg but now cutback to 100 mg daily. She has previously tried Imitrex, tried Ubrelvy and Nurtec with some benefit. He never tried Botox injection. Patient also taking Lyrica. Patient states her normal headaches are throbbing and sharp. This headache feels like she needs to crack her knuckles. It is pressure headache, is 10 times worse. Patient had an MRI of the brain and [facility]ology on 09/14/2021, which revealed leftward nasal septal bowing, otherwise unremarkable unenhanced MRI of the brain. Specifically no evidence of acute ischemic process to suggest CVA. Patient tells me that she is getting migraines about 2 times a week. If she catches it on time, it lasts for a day otherwise it may last for 2 or 3 days. She has tried Fioricet which did not help. She received her last dose of Aimovig on 09/08/2021. Patient does have some samples of Ubrelvy which helps a little. Nurtec ODT stopped working. She was on Trokendi XR 200 mg a day, but was decreased to 100 mg daily after her last admission, just a couple weeks ago. Patient was also tried on gabapentin 2400 mg a day for fibromyalgia. She was recently switched from gabapentin to Lyrica. She had present lives with her boyfriend and his mother. She has no children, and has undergone tubes tied in February 2022. She does have hormonal IUD since February 2022 to regulate her hormones. She has been on control pills since age 12-13. Patient does not smoke or does not drink. Review of Systems Constitutional: Denies chills, Denies fever Eyes: bilateral blurred vision (Blurred vision since yesterday), denies diplopia, denies pain Ears: deny: decreased hearing, ear discharge Ears, nose, mouth and throat: Denies headache, Denies sore throat Cardiovascular: Denies chest pain, Denies shortness of breath Respiratory: Denies cough, Denies excessive sputum Gastrointestinal: Reports nausea, Denies abdominal pain, Denies diarrhea, Denies vomiting Genitourinary: Denies dysuria, Denies hematuria Musculoskeletal: Reports morning stiffness, Reports neck pain, Denies myalgias Integumentary: Denies pruritus, Denies rash Neurological: Reports as per HPI Psychiatric: Reports anxiety, Reports depression, Denies confusion Endocrine: Denies fatigue, Denies weight change Past Medical History Past Medical History: Asthma, Diabetes Mellitus, Fibromyalgia, GERD/Reflux, Sleep Apnea/CPAP/BIPAP, Thyroid Disorder Additional Past Medical History / Comment(s): Migraines with aura, DDD, NIDDM type II, diverticulitis with perforation/colostomy since reversed, IBS, chronic seroma, CARLITOS/no device, polycystic ovaries, hypothyroid, season allergies History of Any Multi-Drug Resistant Organisms: None Reported Past Surgical History: Bariatric Surgery, Cholecystectomy, Uterine Ablation Additional Past Surgical History / Comment(s): 06/06/21 sleeve gastrectomy, rt Breast biopsy. bowel resection with colostomy/ later colostomy reversal, abd ominal surgery to remove scar tissue, EGD, colonoscopy, back pain procedures uterine ablation, lysis of adhesions 07/11/22 Past Anesthesia/Blood Transfusion Reactions: No Reported Reaction Additional Past Anesthesia/Blood Transfusion Reaction / Comment(s): no hx blood transfusion, received monoclonal antibodies in Feb 2021 Past Psychological History: Anxiety, Bipolar, Depression Smoking Status: Never smoker Past Alcohol Use History: Occasional Past Drug Use History: None Reported - Past Family History Mother History Unknown: Yes Family Medical History: COPD Additional Family Medical History / Comment(s): Mother from COPD at the age of 55 yrs. Brother(s) Family Medical History: Diabetes Mellitus Father Family Medical History: Unable to Obtain Medications and Allergies Home Medications Medication Instructions Recorded Confirmed Type Levothyroxine Sodium [Synthroid] 50 mcg PO DAILY 05/05/14 11/19/22 History Cetirizine HCl [Zyrtec] 10 mg PO DAILY 08/30/19 11/19/22 History Pregabalin [Lyrica] 150 mg PO BID 08/30/19 11/19/22 History ARIPiprazole [Abilify] 2 mg PO HS 09/14/20 11/19/22 History Venlafaxine HCl [Effexor XR] 225 mg PO HS 09/14/20 11/19/22 History Erenumab-Aooe [Aimovig 140 mg SQ Q30D 09/22/20 11/19/22 History Autoinjector] HYDROcodone/APAP 7.5-325MG [[place] 1 tab PO BID PRN 08/23/21 11/19/22 History 7.5-325] Atogepant [Qulipta] 60 mg PO HS 11/28/21 11/19/22 History Dorghsimsavxjr-SP-Lbtspsvlng 1 tab PO DAILY 12/12/21 11/19/22 History [Folbic] Ferrous Sulfate [Iron (65 MG 325 mg PO DAILY 12/12/21 11/19/22 History Elemental)] Nystatin 100,000 Unit/gm Powd 1 applic TOPICAL BID PRN 12/12/21 11/19/22 History [Mycostatin Powder] Cyclobenzaprine [Flexeril] 10 mg PO DAILY PRN 01/06/22 11/19/22 History Ergocalciferol (Vitamin D2) 1,250 mcg PO GARCIA 05/19/22 11/19/22 History [Drisdol (50,000 Iu)] Fluconazole 200 mg PO GARCIA 05/19/22 11/19/22 History Acetaminophen Tab [Tylenol] 650 mg PO Q6H PRN 10/02/22 11/19/22 History Lasmiditan Succinate [Reyvow] 50 mg PO DAILY PRN 10/02/22 11/19/22 History Metoclopramide [Reglan] 10 mg PO DAILY PRN 10/02/22 11/19/22 History Semaglutide [Wegovy] 1.7 mg SQ GARCIA 10/02/22 11/19/22 History Ibuprofen [Motrin] 800 mg PO Q8HR PRN #30 tab 10/14/22 11/19/22 Rx Ketorolac [Toradol] 10 mg PO Q6HR PRN 10/30/22 11/19/22 History Nystatin 1 applic TOPICAL BID PRN 11/19/22 11/19/22 History Allergies Allergy/AdvReac Type Severity Reaction Status Date / Time codeine AdvReac Hallucinati Verified 11/19/22 12:14 ons tramadol AdvReac Hallucinati Verified 11/19/22 12:14 ons valacyclovir HCl AdvReac BLURRED Verified 11/19/22 12:14 [From Valtrex] VISION Physical Examination - Vital Signs Vital Signs: Vital Signs Temp Pulse Resp BP Pulse Ox FiO2 07/10/23 13:56 98 F 83 16 132/78 94 L 11/20/22 08:54 95 21 11/20/22 07:00 98.1 F 70 14 115/75 95 11/20/22 02:00 97.3 F L 63 14 103/64 92 L 11/19/22 19:25 97.7 F 94 17 118/71 90 L 11/19/22 17:27 97.8 F 75 15 121/83 98 Intake and Output 11/20/22 11/20/22 11/20/22 06:59 14:59 22:59 Intake Total 118 Balance 118 Intake: Oral 118 Other: # Voids 3 Patient is a young female, in no acute distress. Patient has flat affect. Patient is alert awake oriented to time place and person. Speech and language functions are normal. Patient can name and repeat very well. No aphasia or dysarthria. Attention, concentration and fund of knowledge is adequate. On cranial nerve examination, pupils are equal, round and reacting to light, visual murrell are full on confrontation, with no neglect on double simultaneous stimulation. Extraocular muscles are intact with no nystagmus. Face is symmetric, tongue protrudes to the midline. Palatal elevation and sensation normal, hearing and shoulder shrug normal, facial sensation decreased on the left. On muscle strength testing, there is no pronator drift and the strength is (right/left) deltoid 5/5-, biceps 5/4+, triceps 5/4+, roll over loader 5-/4. In the lower limbs hip flexion 5/5-with giveaway, and ankle dorsiflexion 5/5-with giveaway type of weakness.. Deep tendon reflexes are symmetric 2 all over and plantars downgoing. Sensory to touch is decreased in the entire left side of the body including face arm and leg. Cerebellar function showed no ataxia for jluugz-ul-lvdc testing. No dysdiadochokinesia. No ataxia for kakx-bc-polh testing on either side. Tone and bulk of muscles normal. Gait deferred.. On general examination, there is no carotid bruit or murmur, S1-S2 audible. Chest is clear on consultation. Abdomen is soft nontender. No organomegaly, bowel sounds present. Peripheral pulses are present. No edema. Results - Laboratory Findings CBC and BMP: 11/19/22 12:49 11/19/22 12:49 Abnormal Lab Findings: Abnormal Labs 11/19/22 11/20/22 12:49 15:12 Glucose 145 H Creatine Kinase 26 L C-Reactive Protein 1.4 H Assessment and Plan Assessment: * Migraine with aura. Patient came with breakthrough migraine with persistent numbness of left side of the body. * Obesity * Depression Plan: * Continue Quilipta 60 mg daily at bedtime for migraine prophylaxis. * Patient to receive Reyvow (home medication, which is not formulary in the hospital) * CTA of head and neck revealed no evidence of dissection of the cervical internal carotid arteries or vertebral arteries or any evidence of significant stenosis at the carotid bifurcation. No evidence of high-grade stenosis or intracranial aneurysm. * Patient cannot take aspirin because of her history of gastric sleeve surgery. * Patient currently on morphine and [place] * Recommend patient follow up with her neurologist as an outpatient. * Neurologically clear, if headache resolves.
[2022-11-20] MEDS: VENLAFAXINE HCL ER 75 MG CAP PO SCH (19:59)
[2022-11-21] MEDS: KETOROLAC 15 MG/ML 1 ML VIAL IVP SCH (05:58)
[2022-11-21] MEDS: LEVOTHYROXINE 50 MCG TAB PO SCH (05:59)
[2022-11-21] MEDS: SODIUM CHLORIDE 0.9% 1,000 ML IV SCH (05:59)
[2022-11-21] MEDS: MORPHINE SULFATE 4 MG/ML SYRINGE IV PRN ×2 (06:17→10:45)
[2022-11-21 08:03] VITALS: BP 107/73; PULSE 76; RESP 16; TEMP 98
[2022-11-21] MEDS: PREGABALIN 75 MG CAP PO SCH (09:55)
[2022-11-21] MEDS: HYDROcodone/APAP 7.5-325MG 1 EACH TAB PO PRN (09:59)
--- NOTE | 2022-11-22 12:56 | P.DS ---
Providers Date of admission: 11/19/22 16:39 Expected date of discharge: 11/21/22 Attending physician: Jacob Maxwell MD Consults: 11/20/22 11:32 Consult Physician Urgent Consulting Provider: Ken Avendaño Consult Reason/Comments: headaches, hx of migraines Do you want consulting provider notified?: Yes Primary care physician: Alfred Varela Hospital Course: Final diagnosis -Intractable headache history of migraines -history of migraines -Hypothyroidism -Asthma; not in exacerbation -Diabetes mellitus 2 -Neuropathy -Obesity with a BMI of 39.2 -DVT prophylaxis; SCDs -GI prophylaxis -full code Discharge disposition Patient is being discharged in a stable condition with guarded prognosis to home. Patient will follow-up with Dr. Varela in the outpatient setting upon disch arge. Patient is to follow-up with her neurologist Dr. Azar in the outpatient setting as scheduled. Total time taken is greater than 35 minutes. Hospital course This is a 37-year-old female who was recently admitted With intractable headache and uncontrolled pain being closely monitored. Patient was seen and evaluated by neurology recommending to keep follow-up appointment and continue with medication regimen as prescribed. Patient is having some improvements and headache and does have a follow-up appointment with her neurologist Dr. Azar. Patient has been cleared by neurology. Please refer to neurology no for further HPI. Currently no reports of chest pain, shortness of breath, or palpitations. Patient is afebrile. No reports of nausea or vomiting and patient is tolerating diet. Patient will be discharged home today. Physical exam: Gen: This is [id number] female who is awake, alert and oriented 3, well- developed, well-nourished, obese HEENT: Head is atraumatic, normocephalic. Pupils equal, round. Sclerae is anicteric. NECK: Supple. No JVD. No lymphadenopathy. No thyromegaly. LUNGS: Clear to auscultation. No wheezes or rhonchi. No intercostal retractions . HEART: Regular rate and rhythm. No murmur. ABDOMEN: Soft. obese. Bowel sounds are present. No masses. No tenderness. EXTREMITIES: No pedal edema. No calf tenderness. NEUROLOGICAL: Patient is awake, alert and oriented x3. Cranial nerves 2 through 12 are grossly intact. Please refer to medication reconciliation sheet for a list of medications. The impression and plan of care has been dictated by Rachel Peñaloza, Nurse Practitioner as directed. Dr. Mello MD I have performed a history and examination and MDM of this patient, discussed the same with the dictator, and agree with the dictator's assessment and plan as written ,documented as a scribe. Based on total visit time, I have performed more than 50% of the visit. Patient Condition at Discharge: Stable Plan - Discharge Summary Discharge Rx Participant: Yes New Discharge Prescriptions: Continue Levothyroxine Sodium [Synthroid] 50 mcg PO DAILY Cetirizine HCl [Zyrtec] 10 mg PO DAILY Pregabalin [Lyrica] 150 mg PO BID ARIPiprazole [Abilify] 2 mg PO HS Venlafaxine HCl [Effexor XR] 225 mg PO HS Erenumab-Aooe [Aimovig Autoinjector] 140 mg SQ Q30D HYDROcodone/APAP 7.5-325MG [[place] 7.5-325] 1 tab PO BID PRN PRN Reason: Pain Ferrous Sulfate [Iron (65 MG Elemental)] 325 mg PO DAILY Cyclobenzaprine [Flexeril] 10 mg PO DAILY PRN PRN Reason: Migraine Headache Ergocalciferol (Vitamin D2) [Drisdol (50,000 Iu)] 1,250 mcg PO GARCIA Lasmiditan Succinate [Reyvow] 50 mg PO DAILY PRN PRN Reason: Migraine Headache Semaglutide [Wegovy] 1.7 mg SQ GARCIA Ketorolac [Toradol] 10 mg PO Q6HR PRN PRN Reason: migraines Atogepant [Qulipta] 60 mg PO HS Nystatin 100,000 Unit/gm Powd [Mycostatin Powder] 1 applic TOPICAL BID PRN PRN Reason: Rash Hrhvpzsnrmclkc-SJ-Cizwnrhjrx [Folbic] 1 tab PO DAILY Fluconazole 200 mg PO GARCIA Metoclopramide [Reglan] 10 mg PO DAILY PRN PRN Reason: Nausea Acetaminophen Tab [Tylenol] 650 mg PO Q6H PRN PRN Reason: Pain Or Fever > 100.5 Ibuprofen [Motrin] 800 mg PO Q8HR PRN #30 tab PRN Reason: Pain Nystatin 1 applic TOPICAL BID PRN PRN Reason: Rash Discharge Medication List Levothyroxine Sodium [Synthroid] 50 mcg PO DAILY 05/05/14 [History] Cetirizine HCl [Zyrtec] 10 mg PO DAILY 08/30/19 [History] Pregabalin [Lyrica] 150 mg PO BID 08/30/19 [History] ARIPiprazole [Abilify] 2 mg PO HS 09/14/20 [History] Venlafaxine HCl [Effexor XR] 225 mg PO HS 09/14/20 [History] Erenumab-Aooe [Aimovig Autoinjector] 140 mg SQ Q30D 09/22/20 [History] HYDROcodone/APAP 7.5-325MG [[place] 7.5-325] 1 tab PO BID PRN 08/23/21 [History] Atogepant [Qulipta] 60 mg PO HS 11/28/21 [History] Ueteemaxkcmatd-OX-Xvbjznobbc [Folbic] 1 tab PO DAILY 12/12/21 [History] Ferrous Sulfate [Iron (65 MG Elemental)] 325 mg PO DAILY 12/12/21 [History] Nystatin 100,000 Unit/gm Powd [Mycostatin Powder] 1 applic TOPICAL BID PRN 12/12/21 [History] Cyclobenzaprine [Flexeril] 10 mg PO DAILY PRN 01/06/22 [History] Ergocalciferol (Vitamin D2) [Drisdol (50,000 Iu)] 1,250 mcg PO GARCIA 05/19/22 [History] Fluconazole 200 mg PO GARCIA 05/19/22 [History] Acetaminophen Tab [Tylenol] 650 mg PO Q6H PRN 10/02/22 [History] Lasmiditan Succinate [Reyvow] 50 mg PO DAILY PRN 10/02/22 [History] Metoclopramide [Reglan] 10 mg PO DAILY PRN 10/02/22 [History] Semaglutide [Wegovy] 1.7 mg SQ GARCIA 10/02/22 [History] Ibuprofen [Motrin] 800 mg PO Q8HR PRN #30 tab 10/14/22 [Rx] Ketorolac [Toradol] 10 mg PO Q6HR PRN 10/30/22 [History] Nystatin 1 applic TOPICAL BID PRN 11/19/22 [History] Follow up Appointment(s)/Referral(s): Thomas Azar MD [Medical Doctor] - 1 Week Alfred Varela MD [Primary Care Provider] - 1-2 days Patient Instructions/Handouts: Acute Headache (DC) Activity/Diet/Wound Care/Special Instructions: Activity Limited until follow-up Follow-up with primary care provider on discharge Follow-up with neurology outpatient as scheduled Continue taking medications as prescribed Discharge Disposition: HOME SELF-CARE
== END 2022-11-21 12:13 | disposition home or self-care (01) ==
LOC: EC 12:02 → 6NMEDSUR 16:39
PROVIDERS: ADMIT Internal Medicine; ATTEND Internal Medicine
DX: G43.111 Migraine with aura, intractable, with status migrainosus (principal); E03.9 Hypothyroidism, unspecified; M79.7 Fibromyalgia; F31.9 Bipolar disorder, unspecified; F41.9 Anxiety disorder, unspecified; G47.33 Obstructive sleep apnea (adult) (pediatric); K58.9 Irritable bowel syndrome, unspecified; K21.9 Gastro-esophageal reflux disease without esophagitis; J30.2 Other seasonal allergic rhinitis; E66.9 Obesity, unspecified; E11.40 Type 2 diabetes mellitus with diabetic neuropathy, unspecified; E28.2 Polycystic ovarian syndrome; F32.A Depression, unspecified; Z79.890 Hormone replacement therapy; Z79.899 Other long term (current) drug therapy; Z88.8 Allergy status to other drugs, medicaments and biological substances; Z88.5 Allergy status to narcotic agent; Z79.84 Long term (current) use of oral hypoglycemic drugs; Z98.84 Bariatric surgery status; Z90.49 Acquired absence of other specified parts of digestive tract; Z82.5 Family history of asthma and other chronic lower respiratory diseases; Z83.3 Family history of diabetes mellitus; Z68.39 Body mass index [BMI] 39.0-39.9, adult; Z79.3 Long term (current) use of hormonal contraceptives
CPT/HCPCS: 96376 ×3; 96361 ×4; 96372 ×2; 96374; 96375; 99285; 36415; 94760 ×2; 93005; 80053; 85652; 82550; 84484; 85025; 85610; 85730; 86140; 71046; 70496; 70498; G0378 ×3; J2270 ×3; J1200; J2405; J1885 ×3; Q9967

== ENCOUNTER 2022-11-30 17:58 | Emergency (ER) | payer OTHER ==
[2022-11-30 18:17] VITALS: TEMP 97.7
[2022-11-30] MEDS ORDERED: HYDROcodone/APAP 10-325MG 1 EACH TAB PO ONE (19:04)
[2022-11-30] MEDS ORDERED: SODIUM CHLORIDE 0.9% 1,000 ML IV ONE (19:04)
--- NOTE | 2022-11-30 19:34 | ED ---
Headache HPI - General Chief Complaint: Headache Stated Complaint: migraine Time Seen by Provider: 11/30/22 18:46 Mode of arrival: ambulatory Limitations: no limitations - History of Present Illness Initial Comments: 37-year-old female well known to our ER with history of migraines presenting with chief complaint of migraine. Migraine is accompanied by stutter which is typical for this patient. She was recently admitted and evaluated by neurology, she was deemed safe for outpatient follow-up. She states that the pain started at 4:30 this morning. She admits to pain at the back of the head in light sensitivity which is typical with her regular migraines. No numbness, tingling, weakness, vision or hearing changes. - Related Data Home Medications Medication Instructions Recorded Confirmed Levothyroxine Sodium [Synthroid] 50 mcg PO DAILY 05/05/14 11/19/22 Cetirizine HCl [Zyrtec] 10 mg PO DAILY 08/30/19 11/19/22 Pregabalin [Lyrica] 150 mg PO BID 08/30/19 11/19/22 ARIPiprazole [Abilify] 2 mg PO HS 09/14/20 11/19/22 Venlafaxine HCl [Effexor XR] 225 mg PO HS 09/14/20 11/19/22 Erenumab-Aooe [Aimovig 140 mg SQ Q30D 09/22/20 11/19/22 Autoinjector] HYDROcodone/APAP 7.5-325MG [[place] 1 tab PO BID PRN 08/23/21 11/19/22 7.5-325] Atogepant [Qulipta] 60 mg PO HS 11/28/21 11/19/22 Gpwnkvijviujrq-ZX-Iwrddnkvow 1 tab PO DAILY 12/12/21 11/19/22 [Folbic] Ferrous Sulfate [Iron (65 MG 325 mg PO DAILY 12/12/21 11/19/22 Elemental)] Nystatin 100,000 Unit/gm Powd 1 applic TOPICAL BID PRN 12/12/21 11/19/22 [Mycostatin Powder] Cyclobenzaprine [Flexeril] 10 mg PO DAILY PRN 01/06/22 11/19/22 Ergocalciferol (Vitamin D2) 1,250 mcg PO GARCIA 05/19/22 11/19/22 [Drisdol (50,000 Iu)] Fluconazole 200 mg PO GARCIA 05/19/22 11/19/22 Acetaminophen Tab [Tylenol] 650 mg PO Q6H PRN 10/02/22 11/19/22 Lasmiditan Succinate [Reyvow] 50 mg PO DAILY PRN 10/02/22 11/19/22 Metoclopramide [Reglan] 10 mg PO DAILY PRN 10/02/22 11/19/22 Semaglutide [Wegovy] 1.7 mg SQ GARCIA 10/02/22 11/19/22 Ketorolac [Toradol] 10 mg PO Q6HR PRN 10/30/22 11/19/22 Nystatin 1 applic TOPICAL BID PRN 11/19/22 11/19/22 Previous Rx's Medication Instructions Recorded Ibuprofen [Motrin] 800 mg PO Q8HR PRN #30 tab 10/14/22 Allergies Allergy/AdvReac Type Severity Reaction Status Date / Time codeine AdvReac Hallucinati Verified 11/30/22 18:17 ons tramadol AdvReac Hallucinati Verified 11/30/22 18:17 ons valacyclovir HCl AdvReac BLURRED Verified 11/30/22 18:17 [From Valtrex] VISION Review of Systems ROS Statement: Those systems with pertinent positive or pertinent negative responses have been documented in the HPI. ROS Other: All systems not noted in ROS Statement are negative. Past Medical History Past Medical History: Asthma, Diabetes Mellitus, Fibromyalgia, GERD/Reflux, Sleep Apnea/CPAP/BIPAP, Thyroid Disorder Additional Past Medical History / Comment(s): Migraines with aura, DDD, NIDDM type II, diverticulitis with perforation/colostomy since reversed, IBS, chronic seroma, CARLITOS/no device, polycystic ovaries, hypothyroid, season allergies History of Any Multi-Drug Resistant Organisms: None Reported Past Surgical History: Bariatric Surgery, Cholecystectomy, Uterine Ablation Additional Past Surgical History / Comment(s): 06/06/21 sleeve gastrectomy, rt Breast biopsy. bowel resection with colostomy/ later colostomy reversal, abdominal surgery to remove scar tissue, EGD, colonoscopy, back pain procedures uterine ablation, lysis of adhesions 07/11/22 Past Anesthesia/Blood Transfusion Reactions: No Reported Reaction Additional Past Anesthesia/Blood Transfusion Reaction / Comment(s): no hx blood transfusion, received monoclonal antibodies in Feb 2021 Past Psychological History: Anxiety, Bipolar, Depression Smoking Status: Never smoker Past Alcohol Use History: Occasional Past Drug Use History: None Reported - Past Family History Mother History Unknown: Yes Family Medical History: COPD Additional Family Medical History / Comment(s): Mother from COPD at the age of 55 yrs. Brother(s) Family Medical History: Diabetes Mellitus Father Family Medical History: Unable to Obtain General Exam Limitations: no limitations General appearance: alert, in no apparent distress Head exam: Present: atraumatic, normocephalic, normal inspection Eye exam: Present: normal appearance, PERRL, EOMI. Absent: scleral icterus, conjunctival injection, periorbital swelling Neck exam: Present: normal inspection, full ROM Respiratory exam: Present: normal lung sounds bilaterally. Absent: respiratory distress, wheezes, rales, rhonchi, stridor Cardiovascular Exam: Present: regular rate, normal rhythm, normal heart sounds. Absent: systolic murmur, diastolic murmur, rubs, gallop, clicks Neurological exam: Present: alert, oriented X3, CN II-XII intact Expanded Patient oriented to: Present: person, place, time Speech: Present: fluid speech Cranial nerves: EOM's Intact: Normal Motor strength exam: RUE: 5, LUE: 5, RLE: 5, LLE: 5 Eye Response: (4) open spontaneously Motor Response: (6) obeys commands Verbal Response: (5) oriented [place] Total: 15 Psychiatric exam: Present: normal affect, normal mood Skin exam: Present: warm Course Vital Signs 11/30/22 11/30/22 18:13 21:14 Temperature 97.7 F Pulse Rate 85 80 Respiratory 16 20 Rate Blood Pressure 123/89 130/84 O2 Sat by Pulse 99 98 Oximetry Medical Decision Making - Medical Decision Making Was pt. sent in by a medical professional or institution (, [place], [facility], urgent care, hospital, or intermediate...) When possible be specific @ -No Did you speak to anyone other than the patient for history (EMS, parent, family, police, friend...)? What history was obtained from this source @ -No Did you review nursing and triage notes (agree or disagree)? Why? @ -I reviewed and agree with nursing and triage notes Were old charts reviewed (outside hosp., previous admission, EMS record, old EKG, old radiological studies, urgent care reports/EKG's, intermediate records)? Report findings @ -No old charts were reviewed Differential Diagnosis (chest pain, altered mental status, abdominal pain women, abdominal pain men, vaginal bleeding, weakness, fever, dyspnea, syncope, headache, dizziness, GI bleed, back pain, seizure, CVA, palpatations, mental health, musculoskeletal)? @ -MDM Differential Headache: Migraine, tension, cluster, carbon monoxide, central venous thrombosis, pension karma temporal arteritis, acute closure glaucoma, intercranial hemorrhage, mastoiditis, sinusitis, head injury this is not meant to be an all-inclusive list. EKG interpreted by me (3pts min.). @ -As above X-rays interpreted by me (1pt min.). @ -None done CT interpreted by me (1pt min.). @ -None done U/S interpreted by me (1pt. min.). @ -None done What testing was considered but not performed or refused? (CT, X-rays, U/S, labs)? Why? @ -None What meds were considered but not given or refused? Why? @ -None Did you discuss the management of the patient with other professionals (professionals i.e. , PA, [facility], lab, RT, psych nurse, healthcare social worker, unemployment insurance director, teacher, credit risk officer, clinical case manager)? Give summary @ -No Was smoking cessation discussed for >3mins.? @ -No Was critical care preformed (if so, how long)? @ -No Were there social determinants of health that impacted care today? How? (Homelessness, low income, unemployed, alcoholism, drug addiction, transportation, low edu. Level, literacy, decrease access to med. care, halfway, rehab)? @ -No Was there de-escalation of care discussed even if they declined (Discuss DNR or withdrawal of care, Hospice)? DNR status @ -No What co-morbidities impacted this encounter? (DM, HTN, Smoking, COPD, CAD, Cancer, CVA, ARF, Chemo, Hep., AIDS, mental health diagnosis, sleep apnea, morbid obesity)? @ -None Was patient admitted / discharged? Hospital course, mention meds given and route, prescriptions, significant lab abnormalities, going to OR and other pertinent info. @ -37-year-old female well known to our ER with history of migraines presenting with chief complaint of migraine. Migraine is accompanied by stuttering in light sensitivity. She was recently admitted for similar symptoms and was cleared by neurology for outpatient follow-up. This migraine is consistent with her regular flareups, no new features. Patient is given migraine cocktail been instructed to follow-up with her PCP and neurologist. Follow-up with PCP. Report back to ER with any new or worsening symptoms. Discussed return parameters and answered all questions. Patient conveyed verbal understanding and agreed to the plan. I discussed this case in detail with my attending Dr. Anderson Undiagnosed new problem with uncertain prognosis? @ -No Drug Therapy requiring intensive monitoring for toxicity (Heparin, Nitro, Insulin, Cardizem)? @ -No Were any procedures done? @ -No Diagnosis/symptom? @ -Migraine Acute, or Chronic, or Acute on Chronic? @ -Acute Uncomplicated (without systemic symptoms) or Complicated (systemic symptoms)? @ -Uncomplicated Side effects of treatment? @ -No Exacerbation, Progression, or Severe Exacerbation? @ -No Poses a threat to life or bodily function? How? (Chest pain, [place], AR, pneumonia, PE, COPD, DKA, ARF, appy, cholecystitis, CVA, Diverticulitis, Homicidal, Suicidal, threat to staff... and all critical care pts) @ -No Disposition Clinical Impression: Migraine Disposition: HOME SELF-CARE Condition: Fair Instructions (If sedation given, give patient instructions): Migraine Headache (ED) Is patient prescribed a controlled substance at d/c from ED?: No Referrals: Alfred Varela MD [Primary Care Provider] - 1-2 days
[2022-11-30] MEDS ORDERED: KETOROLAC 15 MG/ML 1 ML VIAL IM STA (20:22)
[2022-11-30] MEDS ORDERED: DEXAMETHASONE SOD PHOSPHATE 10 MG/ML 1 ML VIAL IM STA (20:22)
[2022-11-30] MEDS ORDERED: diphenhydrAMINE 50 MG/ML 1 ML VIAL IM STA (20:22)
[2022-11-30] MEDS ORDERED: METOCLOPRAMIDE 5 MG/ML 2 ML VIAL IM STA (20:22)
[2022-11-30 21:15] VITALS: BP 130/84; PULSE 80; RESP 20
== END 2022-11-30 21:15 | disposition home or self-care (01) ==
LOC: EC 17:58
DX: G43.909 Migraine, unspecified, not intractable, without status migrainosus (principal); E11.9 Type 2 diabetes mellitus without complications; J45.909 Unspecified asthma, uncomplicated; E03.9 Hypothyroidism, unspecified; K21.9 Gastro-esophageal reflux disease without esophagitis; F31.9 Bipolar disorder, unspecified; F41.9 Anxiety disorder, unspecified; Z79.84 Long term (current) use of oral hypoglycemic drugs; Z79.890 Hormone replacement therapy; Z79.899 Other long term (current) drug therapy; Z88.5 Allergy status to narcotic agent; Z88.8 Allergy status to other drugs, medicaments and biological substances
CPT/HCPCS: 99283; 96372 ×4; J1200; J1100; J2765; J1885

== ENCOUNTER → 2022-12-04 | Outpatient (CLI) | payer OTHER ==
[2022-12-04 14:19] VITALS: BP 104/73; PULSE 65; TEMP 98.3; BMI 40.3
--- NOTE | 2022-12-08 10:10 | P.HPBAR ---
Bariatric H&P - History & Physicial H&P Date: 12/04/22 History & Physicial: Visit/CC: bariatric F/U Patient initial contact: Initial weight: 312 kg Initial weight in pounds: 687.84 Height: 5 ft 7 in Initial BMI: 107.7 Last weight: Current weight: 116.755 kg Current weight in pounds: 257.40 Current BMI: 40.3 [place] body weight (based on NIH guidelines): 61.235 kg Excess body weight loss: 77.8% The patient is a 37 year-old F who presents for Bariatric Assessment. Patient resents today for bariatric follow-up. She states that her abdominal pain has improved since her previous lysis of adhesions. She still has some minimal GERD symptoms. She feels she is stuck at her current weight. Past Medical History Past Medical History: Asthma, Diabetes Mellitus, Fibromyalgia, GERD/Reflux, Sleep Apnea/CPAP/BIPAP, Thyroid Disorder Additional Past Medical History / Comment(s): Migraines with aura, DDD, NIDDM type II, diverticulitis with perforation/colostomy since reversed, IBS, chronic seroma, CARLITOS/no device, polycystic ovaries, hypothyroid, season allergies History of Any Multi-Drug Resistant Organisms: None Reported Past Surgical History: Bariatric Surgery, Cholecystectomy, Uterine Ablation Additional Past Surgical History / Comment(s): 06/06/21 sleeve gastrectomy, rt Breast biopsy. bowel resection with colostomy/ later colostomy reversal, abdominal surgery to remove scar tissue, EGD, colonoscopy, back pain procedures uterine ablation, lysis of adhesions 07/11/22 Past Anesthesia/Blood Transfusion Reactions: No Reported Reaction Additional Past Anesthesia/Blood Transfusion Reaction / Comm: no hx blood transfusion, received monoclonal antibodies in Feb 2021 Past Psychological History: Anxiety, Bipolar, Depression Additional Psychological History / Comment(s): Pt has eating disorder-binge eater, borderline personality disorder. Pt resides with her boyfriend and his mother. She is independent. Smoking Status: Never smoker Past Alcohol Use History: Occasional Past Drug Use History: None Reported - Past Family History Mother History Unknown: Yes Family Medical History: COPD Additional Family Medical History / Comment(s): Mother from COPD at the age of 55 yrs. Brother(s) Family Medical History: Diabetes Mellitus Father Family Medical History: Unable to Obtain Surgical - Exam Vital Signs Temp Pulse BP 98.3 F 65 104/73 12/04/22 14:12 12/04/22 14:12 12/04/22 14:12 - General well developed, well nourished - Eyes PERRL - Abdomen Abdomen: soft, non tender Bariatric Assessment & Plan Plan: Patient has had a slow weight loss. She'll improve her dietary habits. Her GERD is minimal will be observed. She'll follow-up in 4 weeks. Bariatric Checklist Checklist: Plan: Checklist: EGD: 1. Hiatal hernia: 2. H. Pylori: HgbA1c: Vitamin D: Smoking: Never smoker Primary care physician referral: Dr. Alaniz Psychiatry clearance: Cardiology clearance: Sleep study: Diet journal: VTE risk score: VTE risk level: Rehab needs at discharge:
== END ==
LOC: BARWHC3 13:35
PROVIDERS: ATTEND Surgery
DX: E66.01 Morbid (severe) obesity due to excess calories (principal); Z68.41 Body mass index [BMI] 40.0-44.9, adult; J45.909 Unspecified asthma, uncomplicated; E11.9 Type 2 diabetes mellitus without complications; M79.7 Fibromyalgia; K21.9 Gastro-esophageal reflux disease without esophagitis; G43.909 Migraine, unspecified, not intractable, without status migrainosus; G47.33 Obstructive sleep apnea (adult) (pediatric); Z88.5 Allergy status to narcotic agent; Z88.8 Allergy status to other drugs, medicaments and biological substances
CPT/HCPCS: 99211

== ENCOUNTER 2022-12-07 18:10 | Emergency (ER) | payer OTHER ==
[2022-12-07] MEDS ORDERED: DEXAMETHASONE SOD PHOSPHATE 10 MG/ML 1 ML VIAL IVP STA (19:18)
[2022-12-07] MEDS ORDERED: KETOROLAC 15 MG/ML 1 ML VIAL IVP STA ×2 (19:18→22:15)
[2022-12-07] MEDS ORDERED: SODIUM CHLORIDE 0.9% 2,000 ML IV STA (19:18)
[2022-12-07] MEDS ORDERED: METOCLOPRAMIDE 5 MG/ML 2 ML VIAL IVP STA (19:18)
--- NOTE | 2022-12-07 19:23 | ED ---
Nausea/Vomiting/Diarrhea HPI - General Chief complaint: Nausea/Vomiting/Diarrhea Stated complaint: pain all over Time Seen by Provider: 12/07/22 19:13 Source: patient, RN notes reviewed Mode of arrival: ambulatory Limitations: no limitations - History of Present Illness Initial comments: This is a 37-year-old female who presents to the emergency department for multiple complaints. Patient is very well-known to this emergency department for migraines and other chronic pain problems. States that 4 days ago, she started to develop pain occurring all over her body, which she states feels like an extremely severe fibromyalgia flareup. However, she has also had ongoing nausea, vomiting, and diarrhea and has only been able to keep down popsicles. Additionally, she has been very fatigued and is not able to stay awake for longer than 4 hours a day. She is also experiencing itching to her hands, arms, and all over her body. Denies any fevers, chills, sore throat, cough, dyspnea, chest pain, palpitations, or diarrhea. MD complaint: nausea, vomiting, diarrhea Onset/Timin -: days(s) - Related Data Home Medications Medication Instructions Recorded Confirmed Levothyroxine Sodium [Synthroid] 50 mcg PO DAILY 05/05/14 12/04/22 Cetirizine HCl [Zyrtec] 10 mg PO DAILY 08/30/19 12/04/22 Pregabalin [Lyrica] 150 mg PO BID 08/30/19 12/04/22 Venlafaxine HCl [Effexor XR] 225 mg PO HS 09/14/20 12/04/22 Erenumab-Aooe [Aimovig 140 mg SQ Q30D 09/22/20 12/04/22 Autoinjector] HYDROcodone/APAP 7.5-325MG [[place] 1 tab PO BID PRN 08/23/21 12/04/22 7.5-325] Atogepant [Qulipta] 60 mg PO HS 11/28/21 12/04/22 Qkutlasmdsztaz-SB-Tzcsoixkhx 1 tab PO DAILY 12/12/21 12/04/22 [Folbic] Ferrous Sulfate [Iron (65 MG 325 mg PO DAILY 12/12/21 12/04/22 Elemental)] Nystatin 100,000 Unit/gm Powd 1 applic TOPICAL BID PRN 12/12/21 12/04/22 [Mycostatin Powder] Cyclobenzaprine [Flexeril] 10 mg PO DAILY PRN 01/06/22 12/04/22 Ergocalciferol (Vitamin D2) 1,250 mcg PO GARCIA 05/19/22 12/04/22 [Drisdol (50,000 Iu)] Fluconazole 200 mg PO GARCIA 05/19/22 12/04/22 Acetaminophen Tab [Tylenol] 650 mg PO Q6H PRN 10/02/22 12/04/22 Lasmiditan Succinate [Reyvow] 50 mg PO DAILY PRN 10/02/22 12/04/22 Metoclopramide [Reglan] 10 mg PO DAILY PRN 10/02/22 12/04/22 Semaglutide [Wegovy] 2.4 mg SQ GARCIA 10/02/22 12/04/22 Ketorolac [Toradol] 10 mg PO Q6HR PRN 10/30/22 12/04/22 Nystatin 1 applic TOPICAL BID PRN 11/19/22 12/04/22 Previous Rx's Medication Instructions Recorded Ibuprofen [Motrin] 800 mg PO Q8HR PRN #30 tab 10/14/22 Metoclopramide [Reglan] 10 mg PO Q6H PRN #20 tab 12/07/22 Ondansetron Odt [Zofran Odt] 4 mg PO Q8HR PRN #20 tab 12/07/22 Allergies Allergy/AdvReac Type Severity Reaction Status Date / Time codeine AdvReac Hallucinati Verified 12/07/22 18:33 ons tramadol AdvReac Hallucinati Verified 12/07/22 18:33 ons valacyclovir HCl AdvReac BLURRED Verified 12/07/22 18:33 [From Valtrex] VISION Review of Systems ROS Statement: Those systems with pertinent positive or pertinent negative responses have been documented in the HPI. ROS Other: All systems not noted in ROS Statement are negative. Past Medical History Past Medical History: Asthma, Diabetes Mellitus, Fibromyalgia, GERD/Reflux, Sleep Apnea/CPAP/BIPAP, Thyroid Disorder Additional Past Medical History / Comment(s): Migraines with aura, DDD, NIDDM type II, diverticulitis with perforation/colostomy since reversed, IBS, chronic seroma, CARLITOS/no device, polycystic ovaries, hypothyroid, season allergies History of Any Multi-Drug Resistant Organisms: None Reported Past Surgical History: Bariatric Surgery, Cholecystectomy, Uterine Ablation Additional Past Surgical History / Comment(s): 06/06/21 sleeve gastrectomy, rt Breast biopsy. bowel resection with colostomy/ later colostomy reversal, abdominal surgery to remove scar tissue, EGD, colonoscopy, back pain procedures uterine ablation, lysis of adhesions 07/11/22 Past Anesthesia/Blood Transfusion Reactions: No Reported Reaction Additional Past Anesthesia/Blood Transfusion Reaction / Comment(s): no hx blood transfusion, received monoclonal antibodies in Feb 2021 Past Psychological History: Anxiety, Bipolar, Depression Smoking Status: Never smoker Past Alcohol Use History: Occasional Past Drug Use History: None Reported - Past Family History Mother History Unknown: Yes Family Medical History: COPD Additional Family Medical History / Comment(s): Mother from COPD at the age of 55 yrs. Brother(s) Family Medical History: Diabetes Mellitus Father Family Medical History: Unable to Obtain General Exam Limitations: no limitations General appearance: alert, in no apparent distress Head exam: Present: atraumatic, normocephalic, normal inspection Respiratory exam: Present: normal lung sounds bilaterally. Absent: respiratory distress, wheezes, rales, rhonchi, stridor Cardiovascular Exam: Present: regular rate, normal rhythm, normal heart sounds. Absent: systolic murmur, diastolic murmur, rubs, gallop, clicks GI/Abdominal exam: Present: soft, normal bowel sounds. Absent: distended, tenderness, guarding, rebound, rigid Neurological exam: Present: alert, oriented X3, CN II-XII intact Psychiatric exam: Present: normal affect, normal mood Skin exam: Present: warm, dry, intact, normal color. Absent: rash Course Vital Signs 12/07/22 12/07/22 12/07/22 18:29 19:22 19:57 Temperature 98 F 97.9 F Pulse Rate 74 69 68 Respiratory 18 20 17 Rate Blood Pressure 125/92 104/59 135/83 O2 Sat by Pulse 97 96 98 Oximetry 12/07/22 12/07/22 12/07/22 21:22 21:54 22:33 Temperature 97.8 F 98.0 F Pulse Rate 77 70 Respiratory 18 Rate Blood Pressure 94/62 115/76 O2 Sat by Pulse 96 95 Oximetry 12/07/22 22:53 Temperature Pulse Rate 77 Respiratory 18 Rate Blood Pressure 114/76 O2 Sat by Pulse 95 Oximetry Medical Decision Making - Medical Decision Making This is a 37-year-old female who presents to the emergency department for nausea, vomiting, diarrhea, and itching. Was pt. sent in by a medical professional or institution? @ -No Did you speak to anyone other than the patient for history? @ -No Did you review nursing and triage notes? @ -Yes, and I agree, it is accurate with regards to the patient's symptoms. Were old charts reviewed? @ -No Differential Diagnosis? @ -Differential Nausea and Vomiting: Gastroenteritis, cholecystitis, appendicitis, pancreatitis, migraine, benign positional vertigo, food borne illness, pyelonephritis, irritable bowel syndrome, influenza, Covid, GERD, incarcerated hernia, intestinal obstruction, this is not meant to be an all-inclusive list. EKG interpreted by me (3pts min.)? @ -Not obtained X-rays interpreted by me (1pt min.)? @ -Not obtained CT interpreted by me (1pt min.)? @ -Not obtained U/S interpreted by me (1pt. min.)? @ -Not obtained What testing was considered but not performed? (CT, X-rays, U/S, labs)? Why? @ -None What meds were considered but not given? Why? @ -None Did you discuss the management of the patient with other professionals? @ -No Did you reconcile home meds? @ -No Was smoking cessation discussed for >3mins.? @ -No Was critical care preformed (if so, how long)? @ -No Were there social determinants of health that impacted care today? How? (Homelessness, low income, unemployed, alcoholism, drug addiction, transportation, low edu. Level, literacy, decrease access to med. care, care home, rehab)? @ -No Was there de-escalation of care discussed even if they declined? (Discuss DNR or withdrawal of care, Hospice)? @ -No What co-morbidities impacted this encounter? (DM, HTN, Smoking, COPD, CAD, Cancer, CVA, Hep., AIDS, mental health diagnosis, sleep apnea, morbid obesity)? @ -Fibromyalgia, morbid obesity, DM Was patient admitted / discharged? @ -Discharged. Lab work obtained and found to be nonactionable. The mild elevation in liver enzymes is consistent with prior values. Patient was given IV fluids, Decadron, Reglan, and Toradol. She did start to feel much better and was able to tolerate water without getting sick. Advised that her symptoms may be related to a viral gastroenteritis in terms of the GI symptoms. She was given prescriptions for Zofran and Reglan, in the event one of the medications does not effectively control her nausea. Dosing instructions reviewed. Otherwise advised she slowly advance her diet as tolerated and remain well- hydrated. We did discuss an [id number] antihistamine for the itching, however I advised that it may make her drowsy, which could be a problem if she is already feeling fatigued. Instructed her to have close follow up with her PCP as well. Undiagnosed new problem with uncertain prognosis? @ -None Drug Therapy requiring intensive monitoring for toxicity (Heparin, Nitro, Insulin, Cardizem)? @ -None Were any procedures done? @ -None Diagnosis/symptom? @ -Gastroenteritis, itching, fatigue Acute, or Chronic, or Acute on Chronic? @ -Acute Uncomplicated (without systemic symptoms) or Complicated (systemic symptoms)? @ -Uncomplicated Side effects of treatment? @ -None Exacerbation, Progression, or Severe Exacerbation] @ -Not applicable Poses a threat to life or bodily function? @ -No Return precautions reviewed in depth, the patient is instructed to return to the emergency department with any new, worsening, or concerning symptoms. Patient verbalized understanding. This case was discussed in detail with the attending ED physician, Dr. Bruno. Presentation, findings, and treatment plan discussed in detail as well. - Lab Data Result diagrams: 12/07/22 19:38 12/07/22 19:38 Lab Results 12/07/22 12/07/22 12/07/22 Range/Units 19:38 19:38 19:38 WBC 9.2 (3.8-10.6) k/uL RBC 4.59 (3.80-5.40) m/uL Hgb 13.9 (11.4-16.0) gm/dL Hct 41.3 (34.0-46.0) % MCV 90.0 (80.0-100.0) fL MCH 30.2 (25.0-35.0) pg MCHC 33.6 (31.0-37.0) g/dL RDW 13.6 (11.5-15.5) % Plt Count 286 (150-450) k/uL MPV 7.5 Neutrophils % 59 % Lymphocytes % 30 % Monocytes % 5 % Eosinophils % 4 % Basophils % 1 % Neutrophils # 5.4 (1.3-7.7) k/uL Lymphocytes # 2.8 (1.0-4.8) k/uL Monocytes # 0.5 (0-1.0) k/uL Eosinophils # 0.4 (0-0.7) k/uL Basophils # 0.1 (0-0.2) k/uL Sodium 138 (137-145) mmol/L Potassium 4.1 (3.5-5.1) mmol/L Chloride 105 (98-107) mmol/L Carbon Dioxide 25 (22-30) mmol/L Anion Gap 8 mmol/L BUN 14 (7-17) mg/dL Creatinine 0.57 (0.52-1.04) mg/dL Est GFR (CKD-EPI)AfAm >90 (>60 ml/min/1.73 sqM) Est GFR (CKD-EPI)NonAf >90 (>60 ml/min/1.73 sqM) Glucose 105 H (74-99) mg/dL Plasma Lactic Acid [place] (0.7-2.0) mmol/L Calcium 9.1 (8.4-10.2) mg/dL Total Bilirubin 0.5 (0.2-1.3) mg/dL AST 38 H (14-36) U/L ALT 39 H (4-34) U/L Alkaline Phosphatase 104 (38-126) U/L Total Protein 7.0 (6.3-8.2) g/dL Albumin 4.0 (3.5-5.0) g/dL TSH 2.090 (0.465-4.680) mIU/L HCG, Qual Not Detected Urine Color Urine Appearance (Clear) Urine pH (5.0-8.0) Ur Specific [place] (1.001-1.035) Urine Protein (Negative) Urine Glucose (UA) (Negative) Urine Ketones (Negative) Urine Blood (Negative) Urine Nitrite (Negative) Urine Bilirubin (Negative) Urine Urobilinogen (<2.0) mg/dL Ur Leukocyte Esterase (Negative) Heterophile Antibody Negative (Negative) 12/07/22 12/07/22 Range/Units 19:38 19:38 WBC (3.8-10.6) k/uL RBC (3.80-5.40) m/uL Hgb (11.4-16.0) gm/dL Hct (34.0-46.0) % MCV (80.0-100.0) fL MCH (25.0-35.0) pg MCHC (31.0-37.0) g/dL RDW (11.5-15.5) % Plt Count (150-450) k/uL MPV Neutrophils % % Lymphocytes % % Monocytes % % Eosinophils % % Basophils % % Neutrophils # (1.3-7.7) k/uL Lymphocytes # (1.0-4.8) k/uL Monocytes # (0-1.0) k/uL Eosinophils # (0-0.7) k/uL Basophils # (0-0.2) k/uL Sodium (137-145) mmol/L Potassium (3.5-5.1) mmol/L Chloride (98-107) mmol/L Carbon Dioxide (22-30) mmol/L Anion Gap mmol/L BUN (7-17) mg/dL Creatinine (0.52-1.04) mg/dL Est GFR (CKD-EPI)AfAm (>60 ml/min/1.73 sqM) Est GFR (CKD-EPI)NonAf (>60 ml/min/1.73 sqM) Glucose (74-99) mg/dL Plasma Lactic Acid [place] 1.4 (0.7-2.0) mmol/L Calcium (8.4-10.2) mg/dL Total Bilirubin (0.2-1.3) mg/dL AST (14-36) U/L ALT (4-34) U/L Alkaline Phosphatase (38-126) U/L Total Protein (6.3-8.2) g/dL Albumin (3.5-5.0) g/dL TSH (0.465-4.680) mIU/L HCG, Qual Urine Color Yellow Urine Appearance Clear (Clear) Urine pH 5.5 (5.0-8.0) Ur Specific [place] 1.036 H (1.001-1.035) Urine Protein Trace H (Negative) Urine Glucose (UA) Negative (Negative) Urine Ketones Negative (Negative) Urine Blood Negative (Negative) Urine Nitrite Negative (Negative) Urine Bilirubin Negative (Negative) Urine Urobilinogen 2.0 (<2.0) mg/dL Ur Leukocyte Esterase Negative (Negative) Heterophile Antibody (Negative) Disposition Clinical Impression: Gastroenteritis, Fibromyalgia, Fatigue, Itching Disposition: HOME SELF-CARE Instructions (If sedation given, give patient instructions): Acute Nausea and Vomiting (ED), Acute Diarrhea (ED), Fatigue (ED) Additional Instructions: Return to the emergency department with any new, worsening, or concerning s ymptoms. You can alternate with the Reglan and Zofran for the nausea and vomiting if one of them is not effective on its own. Slowly advance your diet as tolerated and remain well-hydrated. Follow up with your primary care provider in 1-2 days. Prescriptions: Metoclopramide [Reglan] 10 mg PO Q6H PRN #20 tab PRN Reason: Nausea And Vomiting Ondansetron Odt [Zofran Odt] 4 mg PO Q8HR PRN #20 tab PRN Reason: Nausea And Vomiting Is patient prescribed a controlled substance at d/c from ED?: No Referrals: Alfred Varela [Primary Care Provider] - 1-2 days
[2022-12-07 19:50] LABS: Basophils # (A) 0.1 k/uL (0-0.2); Basophils % (A) 1 %; Eosinophils # (A) 0.4 k/uL (0-0.7); Eosinophils % (A) 4 %; HCT 41.3 % (34.0-46.0); HGB 13.9 gm/dL (11.4-16.0); Lymphocytes # (A) 2.8 k/uL (1.0-4.8); Lymphocytes % (A) 30 %; MCH 30.2 pg (25.0-35.0); MCHC 33.6 g/dL (31.0-37.0); Mean Platelet Volume 7.5; Monocytes # (A) 0.5 k/uL (0-1.0); Monocytes % (A) 5 %; Neutrophils # (A) 5.4 k/uL (1.3-7.7); Neutrophils % (A) 59 %; Platelet Count 286 k/uL (150-450); RBC 4.59 m/uL (3.80-5.40); RDW 13.6 % (11.5-15.5); WBC 9.2 k/uL (3.8-10.6)
[2022-12-07 20:05] LABS: ALT 39 U/L (4-34); AST 38 U/L (14-36); African American GFR (CKD) >90 (>60 ml/min/1.73 sqM); Alkaline Phosphatase 104 U/L (38-126); Anion Gap 8 mmol/L; Blood Urea Nitrogen 14 mg/dL (7-17); Calcium 9.1 mg/dL (8.4-10.2); Carbon Dioxide 25 mmol/L (22-30); Chloride 105 mmol/L (98-107); Glucose 105 mg/dL (74-99); Non-African American GFR(CKD) >90 (>60 ml/min/1.73 sqM); Potassium 4.1 mmol/L (3.5-5.1); Sodium 138 mmol/L (137-145); Total Bilirubin 0.5 mg/dL (0.2-1.3)
[2022-12-07 20:13] LABS: Appearance,Urine Clear (Clear); Color,Urine Yellow
[2022-12-07 20:14] LABS: PH, Urine 5.5 (5.0-8.0); Protein,Urine Trace (Negative); Specific Gravity,Urine 1.036 (1.001-1.035)
[2022-12-07 20:15] LABS: Bilirubin,Urine Negative (Negative); Blood,Urine Negative (Negative); Glucose,Urine (UA) Negative (Negative); Ketones,Urine Negative (Negative); Leukocyte Esterase,Urine Negative (Negative); Nitrite,Urine Negative (Negative)
[2022-12-07 20:54] LABS: HCG,Qualitative Serum Not Detected
[2022-12-07 21:24] VITALS: RESP 18
[2022-12-07] MEDS ORDERED: ONDANSETRON 4 MG ODT STARTER PACK 2 TAB BTL PO STA (22:13)
[2022-12-07 22:34] VITALS: TEMP 98
[2022-12-07 22:57] VITALS: BP 114/76; PULSE 77
== END 2022-12-07 23:05 | disposition home or self-care (01) ==
LOC: EC 18:10
DX: K52.9 Noninfective gastroenteritis and colitis, unspecified (principal); M79.7 Fibromyalgia; L29.9 Pruritus, unspecified; R53.83 Other fatigue; R74.01 Elevation of levels of liver transaminase levels; E66.01 Morbid (severe) obesity due to excess calories; E11.9 Type 2 diabetes mellitus without complications; K21.9 Gastro-esophageal reflux disease without esophagitis; E03.9 Hypothyroidism, unspecified; F41.9 Anxiety disorder, unspecified; F31.9 Bipolar disorder, unspecified; J45.909 Unspecified asthma, uncomplicated; Z79.890 Hormone replacement therapy; Z79.899 Other long term (current) drug therapy; Z88.5 Allergy status to narcotic agent; Z88.1 Allergy status to other antibiotic agents; Z90.49 Acquired absence of other specified parts of digestive tract; Z68.39 Body mass index [BMI] 39.0-39.9, adult
CPT/HCPCS: 36415; 80053; 84443; 83605; 85025; 86308; 81003; 84703; 99284; 96374; 96375 ×2; 96376; 96361; J1100; J2765; J1885; S0119

== ENCOUNTER 2022-12-18 10:40 | Emergency (ER) | payer OTHER ==
[2022-12-18 10:47] VITALS: TEMP 98.5
[2022-12-18] MEDS ORDERED: PROCHLORPERAZINE INJ 10 MG/2 ML VIAL IVP STA (12:17)
[2022-12-18] MEDS ORDERED: diphenhydrAMINE 50 MG/ML 1 ML VIAL IVP STA (12:18)
[2022-12-18] MEDS ORDERED: KETOROLAC 15 MG/ML 1 ML VIAL IVP STA (12:18)
[2022-12-18] MEDS ORDERED: ACETAMINOPHEN TAB 500 MG TAB PO STA (13:30)
[2022-12-18] MEDS ORDERED: MORPHINE SULFATE 4 MG/ML SYRINGE IVP STA (13:35)
[2022-12-18 13:41] VITALS: RESP 18
--- NOTE | 2022-12-18 13:42 | ED ---
General Adult HPI - General Chief complaint: Headache Stated complaint: headache Time Seen by Provider: 12/18/22 11:59 Source: patient Mode of arrival: ambulatory Limitations: no limitations - History of Present Illness Initial comments: 37-year-old female with past medical history significant for migraines presents to the ED with chief complaint of migraine. Patient states that she has had a migraine typical of her history of migraines with intermittent blurred vision, photophobia, phonophobia, and nausea. The past 4 days. Patient states that she took her ablative medication, Lasmiditan, yesterday with no relief therefore presenting to the ED for further evaluation. At this time has no other complaints. - Related Data Home Medications Medication Instructions Recorded Confirmed Levothyroxine Sodium [Synthroid] 50 mcg PO DAILY 05/05/14 12/04/22 Cetirizine HCl [Zyrtec] 10 mg PO DAILY 08/30/19 12/04/22 Pregabalin [Lyrica] 150 mg PO BID 08/30/19 12/04/22 Venlafaxine HCl [Effexor XR] 225 mg PO HS 09/14/20 12/04/22 Erenumab-Aooe [Aimovig 140 mg SQ Q30D 09/22/20 12/04/22 Autoinjector] HYDROcodone/APAP 7.5-325MG [[place] 1 tab PO BID PRN 08/23/21 12/04/22 7.5-325] Atogepant [Qulipta] 60 mg PO HS 11/28/21 12/04/22 Asyfirjynomssr-WM-Ryqhazwxkk 1 tab PO DAILY 12/12/21 12/04/22 [Folbic] Ferrous Sulfate [Iron (65 MG 325 mg PO DAILY 12/12/21 12/04/22 Elemental)] Nystatin 100,000 Unit/gm Powd 1 applic TOPICAL BID PRN 12/12/21 12/04/22 [Mycostatin Powder] Cyclobenzaprine [Flexeril] 10 mg PO DAILY PRN 01/06/22 12/04/22 Ergocalciferol (Vitamin D2) 1,250 mcg PO GARCIA 05/19/22 12/04/22 [Drisdol (50,000 Iu)] Fluconazole 200 mg PO GARICA 05/19/22 12/04/22 Acetaminophen Tab [Tylenol] 650 mg PO Q6H PRN 10/02/22 12/04/22 Lasmiditan Succinate [Reyvow] 50 mg PO DAILY PRN 10/02/22 12/04/22 Metoclopramide [Reglan] 10 mg PO DAILY PRN 10/02/22 12/04/22 Semaglutide [Wegovy] 2.4 mg SQ GARCIA 10/02/22 12/04/22 Ketorolac [Toradol] 10 mg PO Q6HR PRN 10/30/22 12/04/22 Nystatin 1 applic TOPICAL BID PRN 11/19/22 12/04/22 Previous Rx's Medication Instructions Recorded Ibuprofen [Motrin] 800 mg PO Q8HR PRN #30 tab 10/14/22 Metoclopramide [Reglan] 10 mg PO Q6H PRN #20 tab 12/07/22 Ondansetron Odt [Zofran Odt] 4 mg PO Q8HR PRN #20 tab 12/07/22 Allergies Allergy/AdvReac Type Severity Reaction Status Date / Time codeine AdvReac Hallucinati Verified 12/18/22 10:46 ons tramadol AdvReac Hallucinati Verified 12/18/22 10:46 ons valacyclovir HCl AdvReac BLURRED Verified 12/18/22 10:46 [From Valtrex] VISION Review of Systems ROS Statement: Those systems with pertinent positive or pertinent negative responses have been documented in the HPI. ROS Other: All systems not noted in ROS Statement are negative. Past Medical History Past Medical History: Asthma, Diabetes Mellitus, Fibromyalgia, GERD/Reflux, Sleep Apnea/CPAP/BIPAP, Thyroid Disorder Additional Past Medical History / Comment(s): Migraines with aura, DDD, NIDDM type II, diverticulitis with perforation/colostomy since reversed, IBS, chronic seroma, CARLITOS/no device, polycystic ovaries, hypothyroid, season allergies History of Any Multi-Drug Resistant Organisms: None Reported Past Surgical History: Bariatric Surgery, Cholecystectomy, Uterine Ablation Additional Past Surgical History / Comment(s): 06/06/21 sleeve gastrectomy, rt Breast biopsy. bowel resection with colostomy/ later colostomy reversal, ab dominal surgery to remove scar tissue, EGD, colonoscopy, back pain procedures uterine ablation, lysis of adhesions 07/11/22 Past Anesthesia/Blood Transfusion Reactions: No Reported Reaction Additional Past Anesthesia/Blood Transfusion Reaction / Comment(s): no hx blood transfusion, received monoclonal antibodies in Feb 2021 Past Psychological History: Anxiety, Bipolar, Depression Smoking Status: Never smoker Past Alcohol Use History: Occasional Past Drug Use History: None Reported - Past Family History Mother History Unknown: Yes Family Medical History: COPD Additional Family Medical History / Comment(s): Mother from COPD at the age of 55 yrs. Brother(s) Family Medical History: Diabetes Mellitus Father Family Medical History: Unable to Obtain General Exam Limitations: no limitations General appearance: alert, in no apparent distress Head exam: Present: atraumatic Eye exam: Present: normal appearance, PERRL, EOMI ENT exam: Present: mucous membranes moist Respiratory exam: Present: normal lung sounds bilaterally Cardiovascular Exam: Present: regular rate, normal rhythm GI/Abdominal exam: Present: soft Neurological exam: Present: alert, oriented X3, CN II-XII intact Skin exam: Present: warm, dry Course Vital Signs 12/18/22 12/18/22 10:44 13:40 Temperature 98.5 F Pulse Rate 85 73 Respiratory 20 18 Rate Blood Pressure 122/85 119/71 O2 Sat by Pulse 99 97 Oximetry Medical Decision Making - Medical Decision Making Was pt. sent in by a medical professional or institution (, PA, LOCKSTITCH LINING SETTER, urgent care, hospital, or long-term...) When possible be specific @ -No Did you speak to anyone other than the patient for history (EMS, parent, family, police, friend...)? What history was obtained from this source @ -No Did you review nursing and triage notes (agree or disagree)? Why? @ -I reviewed and agree with nursing and triage notes Were old charts reviewed (outside hosp., previous admission, EMS record, old EKG, old radiological studies, urgent care reports/EKG's, long-term records)? Report findings @ -Old visits reviewed showing multiple visits to the ED with the same chief complaint of migraine. Differential Diagnosis (chest pain, altered mental status, abdominal pain women, abdominal pain men, vaginal bleeding, weakness, fever, dyspnea, syncope, headache, dizziness, GI bleed, back pain, seizure, CVA, palpatations, mental health, musculoskeletal)? @ -Differential Headache: Migraine, tension, cluster, carbon monoxide, central venous thrombosis, pension karma temporal arteritis, acute closure glaucoma, intercranial hemorrhage, mastoiditis, sinusitis, head injury, this is not meant to be an all-inclusive list. EKG interpreted by me (3pts min.). @ -As above X-rays interpreted by me (1pt min.). @ -None done CT interpreted by me (1pt min.). @ -None done U/S interpreted by me (1pt. min.). @ -None done What testing was considered but not performed or refused? (CT, X-rays, U/S, labs)? Why? @ -None What meds were considered but not given or refused? Why? @ -None Did you discuss the management of the patient with other professionals (professionals i.e. , PA, LOCKSTITCH LINING SETTER, lab, RT, psych nurse, forensic social worker, drop machine operator, teacher, food safety officer, case loader operator)? Give summary @ -No Was smoking cessation discussed for >3mins.? @ -No Was critical care preformed (if so, how long)? @ -No Were there social determinants of health that impacted care today? How? (Homelessness, low income, unemployed, alcoholism, drug addiction, transportation, low edu. Level, literacy, decrease access to med. care, detention, rehab)? @ -No Was there de-escalation of care discussed even if they declined (Discuss DNR or withdrawal of care, Hospice)? DNR status @ -No What co-morbidities impacted this encounter? (DM, HTN, Smoking, COPD, CAD, Cancer, CVA, ARF, Chemo, Hep., AIDS, mental health diagnosis, sleep apnea, morbid obesity)? @ -None Was patient admitted / discharged? Hospital course, mention meds given and route, prescriptions, significant lab abnormalities, going to OR and other pertinent info. @ -Discharge. Patient had good pain control here with Compazine, Benadryl, Toradol, Tylenol, and morphine. At this time symptoms of migraine are consistent with history of migraines and now worse than usual and therefore computed tomography scan at this time deferred. GCS 15. Unremarkable neuro exam. Discharged home in stable condition. Discussed return precautions with patient who verbalizes agreement. Undiagnosed new problem with uncertain prognosis? @ -No Drug Therapy requiring intensive monitoring for toxicity (Heparin, Nitro, Insulin, Cardizem)? @ -No Were any procedures done? @ -No Diagnosis/symptom? @ - Migraine Acute, or Chronic, or Acute on Chronic? @ -Acute on chronic Uncomplicated (without systemic symptoms) or Complicated (systemic symptoms)? @ -default Side effects of treatment? @ -No Exacerbation, Progression, or Severe Exacerbation? @ -No Poses a threat to life or bodily function? How? (Chest pain, [place], [place], pneumonia, PE, COPD, DKA, ARF, appy, cholecystitis, CVA, Diverticulitis, Homicidal, Suicidal, threat to staff... and all critical care pts) @ -No Disposition Clinical Impression: Migraine Disposition: HOME SELF-CARE Condition: Good Instructions (If sedation given, give patient instructions): Acute Headache (ED) Additional Instructions: Please return to the Emergency Department if symptoms worsen or any other concerns. Is patient prescribed a controlled substance at d/c from ED?: No Referrals: Alfred Varela [Primary Care Provider] - 1-2 days Time of Disposition: 14:43
[2022-12-18 15:04] VITALS: BP 117/72; PULSE 72
== END 2022-12-18 15:04 | disposition home or self-care (01) ==
LOC: EC 10:40
DX: G43.909 Migraine, unspecified, not intractable, without status migrainosus (principal); J45.909 Unspecified asthma, uncomplicated; E11.9 Type 2 diabetes mellitus without complications; G47.30 Sleep apnea, unspecified; E07.9 Disorder of thyroid, unspecified; Z79.890 Hormone replacement therapy; Z79.84 Long term (current) use of oral hypoglycemic drugs; Z79.899 Other long term (current) drug therapy; Z88.5 Allergy status to narcotic agent; Z88.6 Allergy status to analgesic agent; Z88.8 Allergy status to other drugs, medicaments and biological substances; Z86.59 Personal history of other mental and behavioral disorders
CPT/HCPCS: 99284; 96374; 96375 ×3; J2270; J1200; J0780; J1885

== ENCOUNTER 2022-12-25 15:42 | Emergency (ER) | payer OTHER ==
--- NOTE | 2022-12-25 17:34 | ED ---
Headache HPI - General Source: RN notes reviewed Mode of arrival: ambulatory Limitations: no limitations - History of Present Illness MD Complaint: headache, "migraine" <Regino Canas - Last Filed: 12/25/22 19:37> - History of Present Illness MD Complaint: "migraine" -: days(s) Onset Description: gradual Location: right, left, frontal, temporal Severity: severe Severity scale (1-10): 8 Quality: throbbing, pulsatile Consistency: constant Improves With: nothing Worsens With: none Associated Symptoms: nausea, vomiting, photophobia, sensitivity to sound Treatments Prior to Arrival: none <Jere Botello - Last Filed: 12/27/22 12:29> - General Chief Complaint: Headache Stated Complaint: headache Time Seen by Provider: 12/25/22 17:33 - History of Present Illness Initial Comments: Patient presents to stating that she had a migraine headache which started insidiously yesterday. Complaining of pain in the left side of her head and back of her head. This is consistent with her previous migraines. Patient also having some stuttering which started today. Patient has had this before with her migraine headaches. Patient has had multiple evaluations previously. Patient complains of nausea but no vomiting. Hearing disturbance. He does have some photosensitivity. No chest pain or shortness breath. No fever. No neck stiffness. No headache, no fever or chills, no changes in vision or hearing, no sore throat or difficulty with speech, no neck pain, no chest pain or shortness of breath, no abdominal pain, no nausea or vomiting, no changes in urination or bowel movements, no numbness or tingling, no extremity pain, no skin rashes or lesions. Past medical, surgical, social, and family history reviewed. (Regino Canas) 37 female well-known to this emergency department for acute migraines and migraine treatment. History of chronic migraines. Patient has no trauma, no fevers. Patient is occasionally does with headaches have neurological complaints in today that accompanies stuttering (Jere Botello) - Related Data Home Medications Medication Instructions Recorded Confirmed Levothyroxine Sodium [Synthroid] 50 mcg PO DAILY 05/05/14 12/04/22 Cetirizine HCl [Zyrtec] 10 mg PO DAILY 08/30/19 12/04/22 Pregabalin [Lyrica] 150 mg PO BID 08/30/19 12/04/22 Venlafaxine HCl [Effexor XR] 225 mg PO HS 09/14/20 12/04/22 Erenumab-Aooe [Aimovig 140 mg SQ Q30D 09/22/20 12/04/22 Autoinjector] HYDROcodone/APAP 7.5-325MG [[place] 1 tab PO BID PRN 08/23/21 12/04/22 7.5-325] Atogepant [Qulipta] 60 mg PO HS 11/28/21 12/04/22 Zhlufjpfnhitpg-JV-Zxnwmnfakc 1 tab PO DAILY 12/12/21 12/04/22 [Folbic] Ferrous Sulfate [Iron (65 MG 325 mg PO DAILY 12/12/21 12/04/22 Elemental)] Nystatin 100,000 Unit/gm Powd 1 applic TOPICAL BID PRN 12/12/21 12/04/22 [Mycostatin Powder] Cyclobenzaprine [Flexeril] 10 mg PO DAILY PRN 01/06/22 12/04/22 Ergocalciferol (Vitamin D2) 1,250 mcg PO GARCIA 05/19/22 12/04/22 [Drisdol (50,000 Iu)] Fluconazole 200 mg PO GARCIA 05/19/22 12/04/22 Acetaminophen Tab [Tylenol] 650 mg PO Q6H PRN 10/02/22 12/04/22 Lasmiditan Succinate [Reyvow] 50 mg PO DAILY PRN 10/02/22 12/04/22 Metoclopramide [Reglan] 10 mg PO DAILY PRN 10/02/22 12/04/22 Semaglutide [Wegovy] 2.4 mg SQ GARCIA 10/02/22 12/04/22 Ketorolac [Toradol] 10 mg PO Q6HR PRN 10/30/22 12/04/22 Nystatin 1 applic TOPICAL BID PRN 11/19/22 12/04/22 Previous Rx's Medication Instructions Recorded Ibuprofen [Motrin] 800 mg PO Q8HR PRN #30 tab 10/14/22 Metoclopramide [Reglan] 10 mg PO Q6H PRN #20 tab 12/07/22 Ondansetron Odt [Zofran Odt] 4 mg PO Q8HR PRN #20 tab 12/07/22 Allergies Allergy/AdvReac Type Severity Reaction Status Date / Time codeine AdvReac Hallucinati Verified 12/25/22 16:14 ons tramadol AdvReac Hallucinati Verified 12/25/22 16:14 ons valacyclovir HCl AdvReac BLURRED Verified 12/25/22 16:14 [From Valtrex] VISION Review of Systems ROS Other: All systems not noted in ROS Statement are negative. <Regino Canas - Last Filed: 12/25/22 19:37> ROS Other: All systems not noted in ROS Statement are negative. <Jere Botello - Last Filed: 12/27/22 12:29> ROS Statement: Those systems with pertinent positive or pertinent negative responses have been documented in the HPI. Past Medical History Past Medical History: Asthma, Diabetes Mellitus, Fibromyalgia, GERD/Reflux, Sleep Apnea/CPAP/BIPAP, Thyroid Disorder Additional Past Medical History / Comment(s): Migraines with aura, DDD, NIDDM type II, diverticulitis with perforation/colostomy since reversed, IBS, chronic seroma, CARLITOS/no device, polycystic ovaries, hypothyroid, season allergies History of Any Multi-Drug Resistant Organisms: None Reported Past Surgical History: Bariatric Surgery, Cholecystectomy, Uterine Ablation Additional Past Surgical History / Comment(s): 06/06/21 sleeve gastrectomy, rt Breast biopsy. bowel resection with colostomy/ later colostomy reversal, abdominal surgery to remove scar tissue, EGD, colonoscopy, back pain procedures uterine ablation, lysis of adhesions 07/11/22 Past Anesthesia/Blood Transfusion Reactions: No Reported Reaction Additional Past Anesthesia/Blood Transfusion Reaction / Comment(s): no hx blood transfusion, received monoclonal antibodies in Feb 2021 Past Psychological History: Anxiety, Bipolar, Depression Smoking Status: Never smoker Past Alcohol Use History: Occasional Past Drug Use History: None Reported - Past Family History Mother History Unknown: Yes Family Medical History: COPD Additional Family Medical History / Comment(s): Mother from COPD at the age of 55 yrs. Brother(s) Family Medical History: Diabetes Mellitus Father Family Medical History: Unable to Obtain <Regino Canas - Last Filed: 12/25/22 19:37> General Exam Limitations: no limitations General appearance: alert, in no apparent distress Head exam: Present: atraumatic, normocephalic, normal inspection Eye exam: Present: normal appearance, PERRL, EOMI. Absent: scleral icterus, conjunctival injection, periorbital swelling ENT exam: Present: normal exam, normal oropharynx, mucous membranes dry, mucous membranes moist, normal external ear exam Neck exam: Present: normal inspection, full ROM. Absent: tenderness, meningismus, lymphadenopathy Respiratory exam: Present: normal lung sounds bilaterally. Absent: respiratory distress, wheezes, rales, rhonchi, stridor, accessory muscle use, decreased breath sounds, prolonged expiratory Cardiovascular Exam: Present: regular rate, normal rhythm, normal heart sounds. Absent: systolic murmur, diastolic murmur, rubs, gallop, clicks GI/Abdominal exam: Present: soft, normal bowel sounds. Absent: distended, tenderness, guarding, rebound, rigid Extremities exam: Present: normal inspection, full ROM, normal capillary refill. Absent: tenderness, pedal edema, joint swelling, calf tenderness Back exam: Present: normal inspection Neurological exam: Present: alert, oriented X3, CN II-XII intact, normal gait, reflexes normal. Absent: altered, abnormal gait, motor sensory deficit Expanded Patient oriented to: Present: person, place, time Cranial nerves: EOM's Intact: Normal, Gag Reflex: Normal, Tongue Deviation: Normal, Nystagmus: Normal, Facial Sensation: Normal, Facial Palsy with Forehead Movement: Normal, Facial Palsy without Forehead Movement: Normal Cerebellar function: Finger to Nose: Normal, Heel to Jeffers: Normal, Romberg: Normal Sensory exam: Upper Extremity Light Touch: Normal, Lower Extremity Light Touch: Normal Motor strength exam: RUE: 5, LUE: 5, RLE: 5, LLE: 5 Eye Response: (4) open spontaneously Motor Response: (6) obeys commands Verbal Response: (5) oriented Psychiatric exam: Present: normal affect, normal mood Skin exam: Present: warm, dry, intact, normal color. Absent: rash <Regino Canas - Last Filed: 12/25/22 19:37> General appearance: alert, in no apparent distress Head exam: Present: atraumatic, normocephalic, normal inspection Eye exam: Present: normal appearance, PERRL, EOMI. Absent: scleral icterus, conjunctival injection, periorbital swelling ENT exam: Present: normal exam, mucous membranes moist Neck exam: Present: normal inspection. Absent: tenderness, meningismus, lymphadenopathy Respiratory exam: Present: normal lung sounds bilaterally. Absent: respiratory distress, wheezes, rales, rhonchi, stridor Cardiovascular Exam: Present: regular rate, normal rhythm, normal heart sounds. Absent: systolic murmur, diastolic murmur, rubs, gallop, clicks GI/Abdominal exam: Present: soft, normal bowel sounds. Absent: distended, tenderness, guarding, rebound, rigid Extremities exam: Present: normal inspection, full ROM, normal capillary refill. Absent: tenderness, pedal edema, joint swelling, calf tenderness Back exam: Present: normal inspection Neurological exam: Present: alert, oriented X3, CN II-XII intact Psychiatric exam: Present: normal affect, normal mood Skin exam: Present: warm, dry, intact, normal color. Absent: rash <Jere Botello - Last Filed: 12/27/22 12:29> - General Exam Comments Initial Comments: Patient does not appear to be ill or toxic. Cranial nerves II through XII are intact. Alert and oriented 4. Some Stuttering noted. No focal neurologic deficit. (Regino Canas) Course <Jere Botello - Last Filed: 12/27/22 12:29> Vital Signs 12/25/22 12/25/22 12/25/22 16:12 17:46 19:56 Temperature 98.4 F Pulse Rate 96 88 88 Respiratory 18 20 18 Rate Blood Pressure 117/87 109/73 121/79 O2 Sat by Pulse 98 99 97 Oximetry 12/25/22 12/25/22 21:10 22:31 Temperature 98.6 F 98.5 F Pulse Rate 81 80 Respiratory 18 18 Rate Blood Pressure 90/66 96/68 O2 Sat by Pulse 94 L 95 Oximetry - Reevaluation(s) Reevaluation #1: Medical records are reviewed (Jere Botello) Reevaluation #2: Patient symptoms are resolved here in the ER (Jere Botello) Reevaluation #3: Patient is informed of results and questions answered (Jere Botello) Medical Decision Making <Regino Canas - Last Filed: 12/25/22 19:37> <Jere Botello - Last Filed: 12/27/22 12:29> - Medical Decision Making Was pt. sent in by a medical professional or institution? @ -no Did you speak to anyone other than the patient for history? @ -No Did you review nursing and triage notes? @ -Agree Were old charts reviewed? @ -Old ER visits and charting was reviewed, previous imaging reviewed Differential Diagnosis? @ -Differential diagnosis includes but not limited to:Migraine headache, does not appear to be consistent with infectious process such as meningitis. This is a normal and recurrent migraine headache with additional symptomatology, stuttering, which she has had previously. Does not appear to be consistent with other acute intracranial pathology. EKG interpreted by me (3pts min.)? @ -[none] X-rays interpreted by me (1pt min.)? @ -[none] CT interpreted by me (1pt min.)? @ -Computed tomography scan was considered, however this appears to be normal migraine for the patient. This was deferred. We'll discuss with ED attending physician. U/S interpreted by me (1pt. min.)? @ -[none] What testing was considered but not performed? (CT, X-rays, U/S, labs)? Why? @ [CT, X-rays, U/S, labs? Why?] What meds were considered but not given? Why? @ -[none] Did you discuss the management of the patient with other professionals? @ -The case was discussed in detail with ED attending physician. Presentation, findings, treatment plan discussed in detail. Patient turned over to the ED attending physician at 7:35 PM, Dr. Riggins, Did you reconcile home meds? @ -[none] Was smoking cessation discussed for >3mins.? @ -[none] Was critical care preformed (if so, how long)? @ -[none] Were there social determinants of health that impacted care today? How? (Homelessness, low income, unemployed, alcoholism, drug addiction, transportation, low edu. Level, literacy, decrease access to med. care, correction, rehab)? @ -Chronic migraine Was there de-escalation of care discussed even if they declined? (Discuss DNR or withdrawal of care, Hospice)? @ -[Discuss DNR or withdrawal of care, Hospice?] What co-morbidities impacted this encounter? (DM, HTN, Smoking, COPD, CAD, Cancer, CVA, Hep., AIDS, mental health diagnosis, sleep apnea, morbid obesity)? @ -Chronic migraine headaches Was patient admitted / discharged? @ -Patient minimally improved after initial migraine cocktail. We'll order follow-up medication and have the patient assessed and disposition by the ED attending physician. Undiagnosed new problem with uncertain prognosis? @ -[none] Drug Therapy requiring intensive monitoring for toxicity (Heparin, Nitro, Insulin, Cardizem)? @ -[none] Were any procedures done? @ -[none] Diagnosis/symptom? @ -Recurrent headache, migraine Acute, or Chronic, or Acute on Chronic? @ -Acute on chronic Uncomplicated (without systemic symptoms) or Complicated (systemic symptoms)? @ -[default] Side effects of treatment? @ -[none] Exacerbation, Progression, or Severe Exacerbation] @ -Exacerbation Poses a threat to life or bodily function? @ -[no] Case discussed in detail. He attending physician. Turned over at 7:35 PM. (Regino Canas) 37 female to the emergency department for evaluation of acute on chronic migraine headache. Patient's headache is resolved here in the ER, patient feels well can be discharged home (Jere Botello) Disposition <Regino Canas - Last Filed: 12/25/22 19:37> Is patient prescribed a controlled substance at d/c from ED?: No Time of Disposition: 20:40 <Jere Botello - Last Filed: 12/27/22 12:29> Clinical Impression: Migraine headache, Depression, Fatigue Disposition: HOME SELF-CARE Condition: Fair Instructions (If sedation given, give patient instructions): Acute Headache (ED) Referrals: Alfred Varela [REFERRING] - 1-2 days
[2022-12-25] MEDS ORDERED: KETOROLAC 15 MG/ML 1 ML VIAL IVP STA (18:10)
[2022-12-25] MEDS ORDERED: diphenhydrAMINE 50 MG/ML 1 ML VIAL IVP STA (18:10)
[2022-12-25] MEDS ORDERED: METOCLOPRAMIDE 5 MG/ML 2 ML VIAL IVP STA (18:10)
[2022-12-25] MEDS ORDERED: SODIUM CHLORIDE 0.9% 1,000 ML IV STA (18:10)
[2022-12-25] MEDS ORDERED: HYDROmorphone 1 MG/ML 1 ML SYRINGE IVP STA (19:39)
[2022-12-25 20:00] VITALS: RESP 18
[2022-12-25] MEDS ORDERED: ONDANSETRON 4 MG/2 ML VIAL IVP STA (20:42)
[2022-12-25 22:33] VITALS: BP 96/68; PULSE 80; TEMP 98.5
== END 2022-12-25 22:33 | disposition home or self-care (01) ==
LOC: EC 15:42
DX: G43.909 Migraine, unspecified, not intractable, without status migrainosus (principal); F32.A Depression, unspecified; R53.83 Other fatigue; E11.9 Type 2 diabetes mellitus without complications; J45.909 Unspecified asthma, uncomplicated; K21.9 Gastro-esophageal reflux disease without esophagitis; M79.7 Fibromyalgia; E03.9 Hypothyroidism, unspecified; F41.9 Anxiety disorder, unspecified; Z79.84 Long term (current) use of oral hypoglycemic drugs; Z79.890 Hormone replacement therapy; Z79.899 Other long term (current) drug therapy; Z88.5 Allergy status to narcotic agent; Z88.8 Allergy status to other drugs, medicaments and biological substances; Z90.49 Acquired absence of other specified parts of digestive tract
CPT/HCPCS: 99284; 96374; 96375 ×4; 96361; J1200; J2765; J2405; J1170; J1885

== ENCOUNTER → 2023-01-08 | Outpatient (CLI) | payer OTHER ==
[2023-01-08 14:03] VITALS: BP 112/74; PULSE 66; TEMP 98; BMI 39.5
--- NOTE | 2023-02-14 10:53 | P.HPBAR ---
Bariatric H&P - History & Physicial H&P Date: 01/08/23 History & Physicial: Visit/CC: sleeve F/U Patient initial contact: Initial weight: 312 kg Initial weight in pounds: 687.84 Height: 5 ft 7 in Initial BMI: 107.7 Last weight: Current weight: 114.623 kg Current weight in pounds: 252.70 Current BMI: 39.5 [place] body weight (based on NIH guidelines): 61.235 kg Excess body weight loss: 78.7% The patient is a 37 year-old F who presents for Bariatric Assessment. Patient presents today for sleeve gastric fall. She's had some complaints of GERD. She's lost 5 pounds her last visit. She has complaints of her pannus. She has issues with chronic skin irritation's. Past Medical History Past Medical History: Asthma, Diabetes Mellitus, Fibromyalgia, GERD/Reflux, Sleep Apnea/CPAP/BIPAP, Thyroid Disorder Additional Past Medical History / Comment(s): Migraines with aura, DDD, NIDDM type II, diverticulitis with perforation/colostomy since reversed, IBS, chronic seroma, CARLITOS/no device, polycystic ovaries, hypothyroid, season allergies History of Any Multi-Drug Resistant Organisms: None Reported Past Surgical History: Bariatric Surgery, Cholecystectomy, Uterine Ablation Additional Past Surgical History / Comment(s): 06/06/21 sleeve gastrectomy, rt Breast biopsy. bowel resection with colostomy/ later colostomy reversal, abdominal surgery to remove scar tissue, EGD, colonoscopy, back pain procedures uterine ablation, lysis of adhesions 07/11/22 Past Anesthesia/Blood Transfusion Reactions: No Reported Reaction Additional Past Anesthesia/Blood Transfusion Reaction / Comm: no hx blood transfusion, received monoclonal antibodies in Feb 2021 Past Psychological History: Anxiety, Bipolar, Depression Additional Psychological History / Comment(s): Pt has eating disorder-binge eater, borderline personality disorder. Pt resides with her boyfriend and his mother. She is independent. Smoking Status: Never smoker Past Alcohol Use History: Occasional Past Drug Use History: None Reported - Past Family History Mother History Unknown: Yes Family Medical History: COPD Additional Family Medical History / Comment(s): Mother from COPD at the age of 55 yrs. Brother(s) Family Medical History: Diabetes Mellitus Father Family Medical History: Unable to Obtain Surgical - Exam Vital Signs Temp Pulse BP 98.0 F 66 112/74 01/08/23 13:57 01/08/23 13:57 01/08/23 13:57 - General well developed, well nourished, no distress - Eyes PERRL - ENT normal pinna - Neck no masses - Respiratory normal expansion - Cardiovascular Rhythm: regular - Abdomen Abdomen: soft, non tender Bariatric Assessment & Plan Plan: Status post sleeve gastrectomy. Patient's GERD is minimal and will be observed. She will follow-up in 4 weeks. Bariatric Checklist Checklist: Plan: Checklist: EGD: 1. Hiatal hernia: 2. H. Pylori: HgbA1c: Vitamin D: Smoking: Never smoker Primary care physician referral: Dr. Alaniz Psychiatry clearance: Cardiology clearance: Sleep study: Diet journal: VTE risk score: VTE risk level: Rehab needs at discharge:
== END ==
LOC: BARWHC3 13:38
PROVIDERS: ATTEND Surgery
DX: K21.9 Gastro-esophageal reflux disease without esophagitis (principal); J45.909 Unspecified asthma, uncomplicated; E11.9 Type 2 diabetes mellitus without complications; E03.9 Hypothyroidism, unspecified; G47.33 Obstructive sleep apnea (adult) (pediatric); K58.9 Irritable bowel syndrome, unspecified; T14.8XXA Other injury of unspecified body region, initial encounter; Z98.84 Bariatric surgery status; Z87.19 Personal history of other diseases of the digestive system; Z88.5 Allergy status to narcotic agent; Z88.8 Allergy status to other drugs, medicaments and biological substances; Z79.890 Hormone replacement therapy
CPT/HCPCS: 99211

== ENCOUNTER 2023-01-14 14:47 | Emergency (ER) | payer OTHER ==
[2023-01-14 14:52] VITALS: TEMP 98.6
[2023-01-14] MEDS ORDERED: SODIUM CHLORIDE 0.9% 1,000 ML IV STA (15:09)
[2023-01-14] MEDS ORDERED: KETOROLAC 15 MG/ML 1 ML VIAL IVP STA (15:09)
[2023-01-14] MEDS ORDERED: HYDROmorphone 0.5 MG/0.5 ML SYRINGE IVP STA (15:09)
[2023-01-14] MEDS ORDERED: diphenhydrAMINE 50 MG/ML 1 ML VIAL IVP STA (15:09)
[2023-01-14] MEDS ORDERED: ONDANSETRON 4 MG/2 ML VIAL IVP STA (15:09)
--- NOTE | 2023-01-14 15:14 | ED ---
General Adult HPI - General Chief complaint: Headache Stated complaint: Migraine affecting speech Time Seen by Provider: 01/14/23 14:56 Source: patient Mode of arrival: ambulatory Limitations: no limitations - History of Present Illness Initial comments: Dictation was produced using [employer] dictation software. please excuse any grammatical, word or spelling errors. Chief Complaint: 37-year-old female with history of chronic headaches presents with headache History of Present Illness: 37-year-old female shows well-known to emergency department for headaches. Patient comes here often states that she has a headache again. She sees a neurologist. She states that they're currently trying to improve her for nerve blocks to treat her chronic headaches. Patient states that her headaches typical of her usual headaches. The ROS documented in this emergency department record has been reviewed and confirmed by me. Those systems with pertinent positive or negative responses have been documented in the HPI. All other systems are other negative and/or noncontributory. - Related Data Home Medications Medication Instructions Recorded Confirmed Levothyroxine Sodium [Synthroid] 50 mcg PO DAILY 05/05/14 01/08/23 Cetirizine HCl [Zyrtec] 10 mg PO DAILY 08/30/19 01/08/23 Pregabalin [Lyrica] 150 mg PO BID 08/30/19 01/08/23 Erenumab-Aooe [Aimovig 140 mg SQ Q30D 09/22/20 01/08/23 Autoinjector] HYDROcodone/APAP 7.5-325MG [[place] 1 tab PO BID PRN 08/23/21 01/08/23 7.5-325] Atogepant [Qulipta] 60 mg PO HS 11/28/21 01/08/23 Fkaxqumiwarovw-PT-Vrugxdkgfb 1 tab PO DAILY 12/12/21 01/08/23 [Folbic] Ferrous Sulfate [Iron (65 MG 325 mg PO DAILY 12/12/21 01/08/23 Elemental)] Nystatin 100,000 Unit/gm Powd 1 applic TOPICAL BID PRN 12/12/21 01/08/23 [Mycostatin Powder] Cyclobenzaprine [Flexeril] 10 mg PO DAILY PRN 01/06/22 01/08/23 Ergocalciferol (Vitamin D2) 1,250 mcg PO GARCIA 05/19/22 01/08/23 [Drisdol (50,000 Iu)] Fluconazole 200 mg PO GARCIA 05/19/22 01/08/23 Acetaminophen Tab [Tylenol] 650 mg PO Q6H PRN 10/02/22 01/08/23 Lasmiditan Succinate [Reyvow] 50 mg PO DAILY PRN 10/02/22 01/08/23 Metoclopramide [Reglan] 10 mg PO DAILY PRN 10/02/22 01/08/23 Semaglutide [Wegovy] 2.4 mg SQ GARCIA 10/02/22 01/08/23 Ketorolac [Toradol] 10 mg PO Q6HR PRN 10/30/22 01/08/23 Nystatin 1 applic TOPICAL BID PRN 11/19/22 01/08/23 buPROPion XL [Wellbutrin XL] 150 mg PO DAILY 01/08/23 01/08/23 Previous Rx's Medication Instructions Recorded Ibuprofen [Motrin] 800 mg PO Q8HR PRN #30 tab 10/14/22 Metoclopramide [Reglan] 10 mg PO Q6H PRN #20 tab 12/07/22 Ondansetron Odt [Zofran Odt] 4 mg PO Q8HR PRN #20 tab 12/07/22 Allergies Allergy/AdvReac Type Severity Reaction Status Date / Time codeine AdvReac Hallucinati Verified 01/14/23 14:52 ons tramadol AdvReac Hallucinati Verified 01/14/23 14:52 ons valacyclovir HCl AdvReac BLURRED Verified 01/14/23 14:52 [From Valtrex] VISION Review of Systems ROS Statement: Those systems with pertinent positive or pertinent negative responses have been documented in the HPI. ROS Other: All systems not noted in ROS Statement are negative. Past Medical History Past Medical History: Asthma, Diabetes Mellitus, Fibromyalgia, GERD/Reflux, Sleep Apnea/CPAP/BIPAP, Thyroid Disorder Additional Past Medical History / Comment(s): Migraines with aura, DDD, NIDDM type II, diverticulitis with perforation/colostomy since reversed, IBS, chronic seroma, CARLITOS/no device, polycystic ovaries, hypothyroid, season allergies History of Any Multi-Drug Resistant Organisms: None Reported Past Surgical History: Bariatric Surgery, Cholecystectomy, Uterine Ablation Additional Past Surgical History / Comment(s): 06/06/21 sleeve gastrectomy, rt Breast biopsy. bowel resection with colostomy/ later colostomy reversal, abdo mariano surgery to remove scar tissue, EGD, colonoscopy, back pain procedures uterine ablation, lysis of adhesions 07/11/22 Past Anesthesia/Blood Transfusion Reactions: No Reported Reaction Additional Past Anesthesia/Blood Transfusion Reaction / Comment(s): no hx blood transfusion, received monoclonal antibodies in Feb 2021 Past Psychological History: Anxiety, Bipolar, Depression Smoking Status: Never smoker Past Alcohol Use History: Occasional Past Drug Use History: None Reported - Past Family History Mother History Unknown: Yes Family Medical History: COPD Additional Family Medical History / Comment(s): Mother from COPD at the age of 55 yrs. Brother(s) Family Medical History: Diabetes Mellitus Father Family Medical History: Unable to Obtain General Exam - General Exam Comments Initial Comments: PHYSICAL EXAM: General Impression: Alert and oriented x3, not in acute distress HEENT: Normocephalic atraumatic, extra-ocular movements intact, pupils equal and reactive to light bilaterally, mucous membranes moist. Cardiovascular: Heart regular rate and rhythm Chest: Able to complete full sentences, no retractions, no tachypnea Abdomen: abdomen soft, non-tender, non-distended, no organomegaly Musculoskeletal: Pulses present and equal in all extremities, no peripheral edema Motor: no focal deficits noted Neurological: CN II-XII grossly intact, no focal motor or sensory deficits noted Skin: Intact with no visualized rashes Psych: Normal affect and mood Limitations: no limitations Course Vital Signs 01/14/23 01/14/23 14:48 16:25 Temperature 98.6 F Pulse Rate 69 73 Respiratory 20 16 Rate Blood Pressure 119/80 102/69 O2 Sat by Pulse 100 96 Oximetry Medical Decision Making - Medical Decision Making Was pt. sent in by a medical professional or institution (, PA, TIRE MOUNTER, urgent care, hospital, or prison...) When possible be specific @ -No Did you speak to anyone other than the patient for history (EMS, parent, family, police, friend...)? What history was obtained from this source @ -No Did you review nursing and triage notes (agree or disagree)? Why? @ -I reviewed and agree with nursing and triage notes Were old charts reviewed (outside hosp., previous admission, EMS record, old EKG, old radiological studies, urgent care reports/EKG's, prison records)? Report findings @ -No old charts were reviewed Differential Diagnosis (chest pain, altered mental status, abdominal pain women, abdominal pain men, vaginal bleeding, musculoskeletal, weakness, fever, dyspnea, syncope, headache, dizziness, GI bleed, back pain, seizure, CVA, palpatations, mental health)? @ -Differential Headache: Migraine, tension, cluster, carbon monoxide, central venous thrombosis, pension karma temporal arteritis, acute closure glaucoma, intercranial hemorrhage, mastoiditis, sinusitis, head injury, this is not meant to be an all-inclusive list. EKG interpreted by me (3pts min.). @ -None done X-rays interpreted by me (1pt min.). @ -None done CT interpreted by me (1pt min.). @ -None done U/S interpreted by me (1pt. min.). @ -None done What testing was considered but not performed or refused? (CT, X-rays, U/S, labs)? Why? @ -None What meds were considered but not given or refused? Why? @ -None Did you discuss the management of the patient with other professionals (professionals i.e. , PA, TIRE MOUNTER, lab, RT, psych nurse, social services counselor, job printer, teacher, [employer] revenue officer, casey saw operator)? Give summary @ -No Was smoking cessation discussed for >3mins.? @ -No Was critical care preformed (if so, how long)? @ -No Were there social determinants of health that impacted care today? How? (Homelessness, low income, unemployed, alcoholism, drug addiction, transportation, low edu. Level, literacy, decrease access to med. care, custodial, rehab)? @ -No Was there de-escalation of care discussed even if they declined (Discuss DNR or withdrawal of care, Hospice)? DNR status @ -No What co-morbidities impacted this encounter? (DM, HTN, Smoking, COPD, CAD, Cancer, CVA, ARF, Chemo, Hep., AIDS, mental health diagnosis, sleep apnea, morbid obesity)? @ -None Was patient admitted / discharged? Hospital course, mention meds given and route, prescriptions, significant lab abnormalities, going to OR and other pertinent info. @ -37-year-old male presents emergency department for acute on chronic headache. Patient is well-known to emergency department for multiple visitations for same complaint. Patient states that she has a headache again. She reports that her symptoms are usual for typical headaches. Patient given headache cocktail and discharged Undiagnosed new problem with uncertain prognosis? @ -No Drug Therapy requiring intensive monitoring for toxicity (Heparin, Nitro, Insulin, Cardizem)? @ -No Were any procedures done? @ -No Diagnosis/symptom? Acute, or Chronic, or Acute on Chronic? Uncomplicated (without systemic symptoms) or Complicated (systemic symptoms)? @ -Chronic headaches Side effects of treatment? @ -No Exacerbation, Progression, or Severe Exacerbation? @ -No Poses a threat to life or bodily function? How? (Chest pain, [place], [place], pneumonia, PE, COPD, DKA, ARF, appy, cholecystitis, CVA, Diverticulitis, Homicidal, Suicidal, threat to staff... and all critical care pts) @ -No Disposition Clinical Impression: Headache Disposition: HOME SELF-CARE Condition: Good Instructions (If sedation given, give patient instructions): Acute Headache (ED) Is patient prescribed a controlled substance at d/c from ED?: No Referrals: Alfred Varela [Primary Care Provider] - 1-2 days Time of Disposition: 07:08
[2023-01-14 16:27] VITALS: BP 102/69; PULSE 73; RESP 16
== END 2023-01-14 16:27 | disposition home or self-care (01) ==
LOC: EC 14:47
DX: G89.29 Other chronic pain (principal); R51.9 Headache, unspecified; E11.9 Type 2 diabetes mellitus without complications; J45.909 Unspecified asthma, uncomplicated; E03.9 Hypothyroidism, unspecified; F31.9 Bipolar disorder, unspecified; F41.9 Anxiety disorder, unspecified; K21.9 Gastro-esophageal reflux disease without esophagitis; M79.7 Fibromyalgia; Z79.890 Hormone replacement therapy; Z79.85 Long-term (current) use of injectable non-insulin antidiabetic drugs; Z79.899 Other long term (current) drug therapy; Z88.5 Allergy status to narcotic agent; Z88.8 Allergy status to other drugs, medicaments and biological substances; Z90.49 Acquired absence of other specified parts of digestive tract
CPT/HCPCS: 99283; 96374; 96375 ×3; 96361; J1200; J2405; J1885; J1170

== ENCOUNTER 2023-02-20 18:27 | Emergency (ER) | payer OTHER ==
[2023-02-20 18:40] VITALS: RESP 18
--- NOTE | 2023-02-20 18:47 | ED ---
General Adult HPI - General Source: patient (1), RN notes reviewed Mode of arrival: wheelchair Limitations: no limitations <Celia Catherine - Last Filed: 02/20/23 18:48> - General Source: patient, RN notes reviewed Mode of arrival: ambulatory Limitations: no limitations <Jostin Hernandez - Last Filed: 02/21/23 00:06> - General Chief complaint: Back Pain/Injury Stated complaint: Hip & Back Pain Time Seen by Provider: 02/20/23 18:42 - History of Present Illness Initial comments: 37-year-old female presents emergency department chief complaint low back pain 3 days. She states that this radiates to her left hip. She does have history of chronic back pain. She states that she has tried her Moran, Flexeril without relief. Denies any new injury. Denies loss of bowel or bladder function, saddle anesthesia. (Celia Catherine) 37-year-old female presents emergency Department chief complaint low back pain, left leg pain states that radiates off for left hip. She does have a history of chronic back issues states that she try her medication with no relief. Patient states that she's has no loss of bowel or bladder control, no saddle anesthesias denies any weakness denies any difficulty and bleeding (Jostin Hernandez) - Related Data Home Medications Medication Instructions Recorded Confirmed Levothyroxine Sodium [Synthroid] 50 mcg PO DAILY 05/05/14 02/05/23 Cetirizine HCl [Zyrtec] 10 mg PO DAILY 08/30/19 02/05/23 Pregabalin [Lyrica] 150 mg PO BID 08/30/19 02/05/23 Erenumab-Aooe [Aimovig 140 mg SQ Q30D 09/22/20 02/05/23 Autoinjector] HYDROcodone/APAP 7.5-325MG [Moran 1 tab PO BID PRN 08/23/21 02/05/23 7.5-325] Atogepant [Qulipta] 60 mg PO HS 11/28/21 02/05/23 Jeihgtiavgpioo-KM-Lfspvfcoth 1 tab PO DAILY 12/12/21 02/05/23 [Folbic] Ferrous Sulfate [Iron (65 MG 325 mg PO DAILY 12/12/21 02/05/23 Elemental)] Nystatin 100,000 Unit/gm Powd 1 applic TOPICAL BID PRN 12/12/21 02/05/23 [Mycostatin Powder] Cyclobenzaprine [Flexeril] 10 mg PO DAILY PRN 01/06/22 02/05/23 Ergocalciferol (Vitamin D2) 1,250 mcg PO GARCIA 05/19/22 02/05/23 [Drisdol (50,000 Iu)] Fluconazole 200 mg PO GARCIA 05/19/22 02/05/23 Acetaminophen Tab [Tylenol] 650 mg PO Q6H PRN 10/02/22 02/05/23 Lasmiditan Succinate [Reyvow] 50 mg PO DAILY PRN 10/02/22 02/05/23 Metoclopramide [Reglan] 10 mg PO DAILY PRN 10/02/22 02/05/23 Semaglutide [Wegovy] 2.4 mg SQ GARCIA 10/02/22 02/05/23 Ketorolac [Toradol] 10 mg PO Q6HR PRN 10/30/22 02/05/23 Nystatin 1 applic TOPICAL BID PRN 11/19/22 02/05/23 buPROPion XL [Wellbutrin XL] 150 mg PO DAILY 01/08/23 02/05/23 Previous Rx's Medication Instructions Recorded Ibuprofen [Motrin] 800 mg PO Q8HR PRN #30 tab 10/14/22 Metoclopramide [Reglan] 10 mg PO Q6H PRN #20 tab 12/07/22 Ondansetron Odt [Zofran Odt] 4 mg PO Q8HR PRN #20 tab 12/07/22 Allergies Allergy/AdvReac Type Severity Reaction Status Date / Time codeine AdvReac Hallucinati Verified 02/20/23 18:39 ons tramadol AdvReac Hallucinati Verified 02/20/23 18:39 ons valacyclovir HCl AdvReac BLURRED Verified 02/20/23 18:39 [From Valtrex] VISION Review of Systems ROS Other: All systems not noted in ROS Statement are negative. <Celia Catherine - Last Filed: 02/20/23 18:48> ROS Other: All systems not noted in ROS Statement are negative. <Jostin Hernandez - Last Filed: 02/21/23 00:06> ROS Statement: Those systems with pertinent positive or pertinent negative responses have been documented in the HPI. Past Medical History Past Medical History: Asthma, Diabetes Mellitus, Fibromyalgia, GERD/Reflux, Sleep Apnea/CPAP/BIPAP, Thyroid Disorder Additional Past Medical History / Comment(s): Migraines with aura, DDD, NIDDM type II, diverticulitis with perforation/colostomy since reversed, IBS, chronic seroma, CARLITOS/no device, polycystic ovaries, hypothyroid, season allergies History of Any Multi-Drug Resistant Organisms: None Reported Past Surgical History: Bariatric Surgery, Cholecystectomy, Uterine Ablation Additional Past Surgical History / Comment(s): 06/06/21 sleeve gastrectomy, rt Breast biopsy. bowel resection with colostomy/ later colostomy reversal, abdominal surgery to remove scar tissue, EGD, colonoscopy, back pain procedures uterine ablation, lysis of adhesions 07/11/22 Past Anesthesia/Blood Transfusion Reactions: No Reported Reaction Additional Past Anesthesia/Blood Transfusion Reaction / Comment(s): no hx blood transfusion, received monoclonal antibodies in Feb 2021 Past Psychological History: Anxiety, Bipolar, Depression Smoking Status: Never smoker Past Alcohol Use History: Occasional Past Drug Use History: None Reported - Past Family History Mother History Unknown: Yes Family Medical History: COPD Additional Family Medical History / Comment(s): Mother from COPD at the age of 55 yrs. Brother(s) Family Medical History: Diabetes Mellitus Father Family Medical History: Unable to Obtain <Celia Catherine - Last Filed: 02/20/23 18:48> General Exam Limitations: no limitations <Celia Catherine - Last Filed: 02/20/23 18:48> General appearance: alert, in no apparent distress Head exam: Present: atraumatic, normocephalic, normal inspection Eye exam: Present: normal appearance, PERRL, EOMI. Absent: scleral icterus, conjunctival injection, periorbital swelling ENT exam: Present: normal exam, mucous membranes moist Neck exam: Present: normal inspection. Absent: tenderness, meningismus, lymphadenopathy Respiratory exam: Present: normal lung sounds bilaterally. Absent: respiratory distress, wheezes, rales, rhonchi, stridor Cardiovascular Exam: Present: regular rate, normal rhythm, normal heart sounds. Absent: systolic murmur, diastolic murmur, rubs, gallop, clicks GI/Abdominal exam: Present: soft, normal bowel sounds. Absent: distended, tenderness, guarding, rebound, rigid Extremities exam: Present: normal inspection, full ROM. Absent: tenderness Back exam: Present: full ROM, tenderness, paraspinal tenderness. Absent: vertebral tenderness <Jostin Hernandez - Last Filed: 02/21/23 00:06> Course Vital Signs 02/20/23 02/20/23 18:37 20:37 Temperature 97.3 F L 98.6 F Pulse Rate 73 65 Respiratory 18 18 Rate Blood Pressure 111/79 114/73 O2 Sat by Pulse 98 99 Oximetry Medical Decision Making <Jostin Hernandez - Last Filed: 02/21/23 00:06> - Medical Decision Making Was pt. sent in by a medical professional or institution (Dr. PA, BOARD OF DIRECTORS, urgent care, hospital, or residential...) When possible be specific @ -No Did you speak to anyone other than the patient for history (EMS, parent, family, police, friend...)? What history was obtained from this source @ -No Did you review nursing and triage notes (agree or disagree)? Why? @ -I reviewed and agree with nursing and triage notes Were old charts reviewed (outside hosp., previous admission, EMS record, old EKG, old radiological studies, urgent care reports/EKG's, residential records)? Report findings @ -No old charts were reviewed Differential Diagnosis (chest pain, altered mental status, abdominal pain women, abdominal pain men, vaginal bleeding, weakness, fever, dyspnea, syncope, headac he, dizziness, GI bleed, back pain, seizure, CVA, palpatations, mental health, musculoskeletal)? @ -nDifferential Back Pain: Strain, zoster, cauda equina syndrome, epidural abscess, vertebral osteomyelitis, discitis, fracture, subluxation, disc herniation, DJD, spinal stenosis, dissection, AAA, pancreatitis, peptic ulcer disease, pyelonephritis, kidney stone, this is not meant to be an all-inclusive list.cable EKG interpreted by me (3pts min.). @ -None X-rays interpreted by me (1pt min.). @ -None done CT interpreted by me (1pt min.). @ -None done U/S interpreted by me (1pt. min.). @ -None done What testing was considered but not performed or refused? (CT, X-rays, U/S, labs)? Why? @ -None What meds were considered but not given or refused? Why? @ -None Did you discuss the management of the patient with other professionals (professionals i.e. , PA, [employer]ARD OF DIRECTORS, lab, RT, psych nurse, clinical social work aide, ceramic products sales engineer, teacher, medical laboratory technical officer, case worker)? Give summary @ -No Was smoking cessation discussed for >3mins.? @ -No Was critical care preformed (if so, how long)? @ -No Were there social determinants of health that impacted care today? How? (Homelessness, low income, unemployed, alcoholism, drug addiction, transp ortation, low edu. Level, literacy, decrease access to med. care, intermediate, rehab)? @ -No Was there de-escalation of care discussed even if they declined (Discuss DNR or withdrawal of care, Hospice)? DNR status @ -No What co-morbidities impacted this encounter? (DM, HTN, Smoking, COPD, CAD, Cancer, CVA, ARF, Chemo, Hep., AIDS, mental health diagnosis, sleep apnea, morbid obesity)? @ -None Was patient admitted / discharged? Hospital course, mention meds given and route, prescriptions, significant lab abnormalities, going to OR and other pertinent info. @ -Discharge patient has chronic back pain this is acute exacerbation she has no red flag symptoms patient discharge after analgesics. Undiagnosed new problem with uncertain prognosis? @ -No Drug Therapy requiring intensive monitoring for toxicity (Heparin, Nitro, Insulin, Cardizem)? @ -No Were any procedures done? @ -No Diagnosis/symptom? @ -Lumbar radiculopathy Acute, or Chronic, or Acute on Chronic? @ -Acute Uncomplicated (without systemic symptoms) or Complicated (systemic symptoms)? @ -[Uncomplicated Side effects of treatment? @ -No Exacerbation, Progression, or Severe Exacerbation? @ -No Poses a threat to life or bodily function? How? (Chest pain, [place], [place], pneumonia, PE, COPD, DKA, ARF, appy, cholecystitis, CVA, Diverticulitis, Homicidal, Suicidal, threat to staff... and all critical care pts) @ -No (Jostin Hernandez) Disposition <Celia Catherine - Last Filed: 02/20/23 18:48> Is patient prescribed a controlled substance at d/c from ED?: No Time of Disposition: 20:25 <Jostin Hernandez - Last Filed: 02/21/23 00:06> Clinical Impression: Lumbar radiculopathy Disposition: HOME SELF-CARE Condition: Stable Instructions (If sedation given, give patient instructions): Acute Low Back Pain (ED) Additional Instructions: Please return to the Emergency Department if symptoms worsen or any other concerns. Referrals: Alfred Varela [Primary Care Provider] - 1-2 days
[2023-02-20] MEDS ORDERED: HYDROmorphone 1 MG/ML 1 ML SYRINGE IM STA (20:18)
[2023-02-20 20:43] VITALS: BP 114/73; PULSE 65; TEMP 98.6
== END 2023-02-20 20:39 | disposition home or self-care (01) ==
LOC: EC 18:27
DX: M54.16 Radiculopathy, lumbar region (principal); E11.9 Type 2 diabetes mellitus without complications; J45.909 Unspecified asthma, uncomplicated; G47.30 Sleep apnea, unspecified; E07.9 Disorder of thyroid, unspecified; F41.9 Anxiety disorder, unspecified; F31.9 Bipolar disorder, unspecified; Z79.890 Hormone replacement therapy; Z79.899 Other long term (current) drug therapy; Z88.5 Allergy status to narcotic agent; Z88.6 Allergy status to analgesic agent; Z88.8 Allergy status to other drugs, medicaments and biological substances
CPT/HCPCS: 99283; 96372; J1170

== ENCOUNTER 2023-03-09 16:17 | Emergency (ER) | payer BC, OTHER ==
--- NOTE | 2023-03-09 16:39 | ED ---
General Adult HPI - General Chief complaint: Extremity Injury, Lower Stated complaint: L hip pain Source: patient, RN notes reviewed Mode of arrival: ambulatory Limitations: no limitations - History of Present Illness Initial comments: 37-year-old female presents emergency department chief complaint of left hip pain 3-4 weeks. She states that the pain is worse with standing and bending. She states that it feels that it locks up. She has a history of chronic pain and takes Flexeril, [place], Tylenol which she states she has been utilizing and this is not improving her pain. She reports that she went to urgent care today and they told her they were unable to do anything for her and she should come be evaluated in the ED. - Related Data Home Medications Medication Instructions Recorded Confirmed Levothyroxine Sodium [Synthroid] 50 mcg PO DAILY 05/05/14 02/05/23 Cetirizine HCl [Zyrtec] 10 mg PO DAILY 08/30/19 02/05/23 Pregabalin [Lyrica] 150 mg PO BID 08/30/19 02/05/23 Erenumab-Aooe [Aimovig 140 mg SQ Q30D 09/22/20 02/05/23 Autoinjector] HYDROcodone/APAP 7.5-325MG [[place] 1 tab PO BID PRN 08/23/21 02/05/23 7.5-325] Atogepant [Qulipta] 60 mg PO HS 11/28/21 02/05/23 Ivssmadxgkfvej-BN-Oczjwxcasw 1 tab PO DAILY 12/12/21 02/05/23 [Folbic] Ferrous Sulfate [Iron (65 MG 325 mg PO DAILY 12/12/21 02/05/23 Elemental)] Nystatin 100,000 Unit/gm Powd 1 applic TOPICAL BID PRN 12/12/21 02/05/23 [Mycostatin Powder] Cyclobenzaprine [Flexeril] 10 mg PO DAILY PRN 01/06/22 02/05/23 Ergocalciferol (Vitamin D2) 1,250 mcg PO GARCIA 05/19/22 02/05/23 [Drisdol (50,000 Iu)] Fluconazole 200 mg PO GARCIA 05/19/22 02/05/23 Acetaminophen Tab [Tylenol] 650 mg PO Q6H PRN 10/02/22 02/05/23 Lasmiditan Succinate [Reyvow] 50 mg PO DAILY PRN 10/02/22 02/05/23 Metoclopramide [Reglan] 10 mg PO DAILY PRN 10/02/22 02/05/23 Semaglutide [Wegovy] 2.4 mg SQ GARCIA 10/02/22 02/05/23 Ketorolac [Toradol] 10 mg PO Q6HR PRN 10/30/22 02/05/23 Nystatin 1 applic TOPICAL BID PRN 11/19/22 02/05/23 buPROPion XL [Wellbutrin XL] 150 mg PO DAILY 01/08/23 02/05/23 Previous Rx's Medication Instructions Recorded Ibuprofen [Motrin] 800 mg PO Q8HR PRN #30 tab 10/14/22 Metoclopramide [Reglan] 10 mg PO Q6H PRN #20 tab 12/07/22 Ondansetron Odt [Zofran Odt] 4 mg PO Q8HR PRN #20 tab 12/07/22 Allergies Allergy/AdvReac Type Severity Reaction Status Date / Time codeine AdvReac Hallucinati Verified 02/20/23 18:39 ons tramadol AdvReac Hallucinati Verified 02/20/23 18:39 ons valacyclovir HCl AdvReac BLURRED Verified 02/20/23 18:39 [From Valtrex] VISION Review of Systems ROS Statement: Those systems with pertinent positive or pertinent negative responses have been documented in the HPI. ROS Other: All systems not noted in ROS Statement are negative. Past Medical History Past Medical History: Asthma, Diabetes Mellitus, Fibromyalgia, GERD/Reflux, Sleep Apnea/CPAP/BIPAP, Thyroid Disorder Additional Past Medical History / Comment(s): Migraines with aura, DDD, NIDDM type II, diverticulitis with perforation/colostomy since reversed, IBS, chronic seroma, CARLITOS/no device, polycystic ovaries, hypothyroid, season allergies History of Any Multi-Drug Resistant Organisms: None Reported Past Surgical History: Bariatric Surgery, Cholecystectomy, Uterine Ablation Additional Past Surgical History / Comment(s): 06/06/21 sleeve gastrectomy, rt Breast biopsy. bowel resection with colostomy/ later colostomy reversal, abdominal surgery to remove scar tissue, EGD, colonoscopy, back pain procedures uterine ablation, lysis of adhesions 07/11/22 Past Anesthesia/Blood Transfusion Reactions: No Reported Reaction Additional Past Anesthesia/Blood Transfusion Reaction / Comment(s): no hx blood transfusion, received monoclonal antibodies in Feb 2021 Past Psychological History: Anxiety, Bipolar, Depression Smoking Status: Never smoker Past Alcohol Use History: Occasional Past Drug Use History: None Reported - Past Family History Mother History Unknown: Yes Family Medical History: COPD Additional Family Medical History / Comment(s): Mother from COPD at the age of 55 yrs. Brother(s) Family Medical History: Diabetes Mellitus Father Family Medical History: Unable to Obtain General Exam - General Exam Comments Initial Comments: Physical Exam Vital signs reviewed General: Well-appearing, nontoxic, no acute distress. Head: Normocephalic, atraumatic Eyes: PERRLA, EOMI ENT: Airway patent Chest: Nonlabored breathing, lungs clear to auscultation bilaterally, cardiac regular rate and rhythm Skin: No visual rash, normal skin tone, extremities non-erythematous, no obvious edema Neuro: Alert and oriented 3 Musculoskeletal: No gross abnormalities, DP and PT pulses 2+, 5 out of 5 strength in bilateral lower extremities, no calf tenderness, negative Homans sign Limitations: no limitations General appearance: alert, in no apparent distress Course Vital Signs 03/09/23 03/09/23 16:36 20:33 Temperature 98.6 F Pulse Rate 74 61 Respiratory 18 18 Rate Blood Pressure 122/75 109/72 O2 Sat by Pulse 100 100 Oximetry Medical Decision Making - Medical Decision Making I preformed the quick note portion of this chart. Electronically signed by Celia Catherine PA-C Was pt. sent in by a medical professional or institution (SOILA Carrera, MAT PUNCHER, urgent care, hospital, or fdc...) When possible be specific @ -No Did you speak to anyone other than the patient for history (EMS, parent, family, police, friend...)? What history was obtained from this source @ -No Did you review nursing and triage notes (agree or disagree)? Why? @ -I reviewed and agree with nursing and triage notes Were old charts reviewed (outside hosp., previous admission, EMS record, old EKG, old radiological studies, urgent care reports/EKG's, fdc records)? Report findings @ -No old charts were reviewed Differential Diagnosis (chest pain, altered mental status, abdominal pain women, abdominal pain men, vaginal bleeding, weakness, fever, dyspnea, syncope, headache, dizziness, GI bleed, back pain, seizure, CVA, palpatations, mental health, musculoskeletal)? @ -Differential Musculoskeletal Muscular strain, contusion, ligament sprain, fracture, arthritis, septic arthritis, bursitis, cellulitis, muscle spasm, nerve compression, DVT, arterial occlusion, herpes zoster, electrolyte abnormality, tumor.... This is not meant to be in all inclusive list EKG interpreted by me (3pts min.). @ -None X-rays interpreted by me (1pt min.). @ -X-ray left hip shows no evidence of acute fracture or abnormality CT interpreted by me (1pt min.). @ -None done U/S interpreted by me (1pt. min.). @ -None done What testing was considered but not performed or refused? (CT, X-rays, U/S, labs)? Why? @ -None What meds were considered but not given or refused? Why? @ -None Did you discuss the management of the patient with other professionals (viet singh i.e. , PA, MAT PUNCHER, lab, RT, psych nurse, nephrology social worker, ophthalmic aide, teacher, business practices officer, employment case manager)? Give summary @ -No Was smoking cessation discussed for >3mins.? @ -No Was critical care preformed (if so, how long)? @ -No Were there social determinants of health that impacted care today? How? (Homelessness, low income, unemployed, alcoholism, drug addiction, transportation, low edu. Level, literacy, decrease access to med. care, half-way, rehab)? @ -No Was there de-escalation of care discussed even if they declined (Discuss DNR or withdrawal of care, Hospice)? DNR status @ -No What co-morbidities impacted this encounter? (DM, HTN, Smoking, COPD, CAD, Cancer, CVA, ARF, Chemo, Hep., AIDS, mental health diagnosis, sleep apnea, morbid obesity)? @ -None Was patient admitted / discharged? Hospital course, mention meds given and route, prescriptions, significant lab abnormalities, going to OR and other pertinent info. @ -Discharged. Patient presented to emergency department chief complaint of left hip pain that has been going on for 3-4 weeks. States is worse when she stands up. She has been taking Flexeril, [place], Toradol at home. She states the last dose of Flexeril and Toradol was last night. X-rays were obtained of the left hip which shows no evidence of acute fracture. IM Norflex, Toradol, Tylenol, lidocaine patch given. Patient states improvement in her symptoms. Patient will be discharged home with follow-up to her PCP and neurologist. She is stable at time of discharge. Case discussed with Dr. Botello. Undiagnosed new problem with uncertain prognosis? @ -No Drug Therapy requiring intensive monitoring for toxicity (Heparin, Nitro, Insulin, Cardizem)? @ -No Were any procedures done? @ -No Diagnosis/symptom? @ -leg hip pain Acute, or Chronic, or Acute on Chronic? @ -acute on chronic Uncomplicated (without systemic symptoms) or Complicated (systemic symptoms)? @ -uncomplicated Side effects of treatment? @ -No Exacerbation, Progression, or Severe Exacerbation? @ -No Poses a threat to life or bodily function? How? (Chest pain, [place], [place], pneumonia, PE, COPD, DKA, ARF, appy, cholecystitis, CVA, Diverticulitis, Homicidal, Suicidal, threat to staff... and all critical care pts) @ -No Disposition Clinical Impression: Left hip pain Disposition: HOME SELF-CARE Condition: Stable Instructions (If sedation given, give patient instructions): Hip Pain (ED) Additional Instructions: Please follow up with your primary care provider. Return to the emergency department for new or worsening symptoms. Is patient prescribed a controlled substance at d/c from ED?: No Referrals: Alfred Varela [Primary Care Provider] - 1-2 days
[2023-03-09 16:43] VITALS: RESP 18; TEMP 98.6
--- NOTE | 2023-03-09 19:43 | XR ---
EXAMINATION TYPE: XR Hip Complete LT DATE OF EXAM: 03/09/2023 CLINICAL HISTORY: Atraumatic pain. Left hip pain for 3 weeks. TECHNIQUE: AP and frogleg views of the left hip are obtained. COMPARISON: CT abdomen and pelvis February 03, 2023 FINDINGS: There is no acute fracture/dislocation evident in the left hip. Mild axial joint space los s is redemonstrated. Femoral head shape is maintained. The overlying soft tissue appears unremarkable . IMPRESSION: As above. No acute findings are evident.
[2023-03-09] MEDS ORDERED: KETOROLAC 15 MG/ML 1 ML VIAL IM STA (19:44)
[2023-03-09] MEDS ORDERED: LIDOCAINE 5% PATCH TOPICAL STA (19:45)
[2023-03-09] MEDS ORDERED: ORPHENADRINE 30 MG/ML 2 ML VIAL IM STA (19:45)
[2023-03-09] MEDS ORDERED: ACETAMINOPHEN TAB 500 MG TAB PO STA (19:45)
[2023-03-09 20:45] VITALS: BP 109/72; PULSE 61
== END 2023-03-09 20:33 | disposition home or self-care (01) ==
LOC: EC 16:17
DX: M25.552 Pain in left hip (principal); E11.9 Type 2 diabetes mellitus without complications; F31.9 Bipolar disorder, unspecified; F41.9 Anxiety disorder, unspecified; G47.33 Obstructive sleep apnea (adult) (pediatric); J45.909 Unspecified asthma, uncomplicated; E07.9 Disorder of thyroid, unspecified; Z79.890 Hormone replacement therapy; Z79.899 Other long term (current) drug therapy; Z88.5 Allergy status to narcotic agent; Z88.8 Allergy status to other drugs, medicaments and biological substances; Z90.49 Acquired absence of other specified parts of digestive tract
CPT/HCPCS: 73502; 99283; 96372 ×2; J2360; J1885

== ENCOUNTER → 2023-04-02 | Outpatient (CLI) | payer BC ==
[2023-04-02 11:07] VITALS: BP 120/84; PULSE 84; TEMP 99.1; BMI 37.4
--- NOTE | 2023-04-03 11:31 | P.HPBAR ---
Bariatric H&P - History & Physicial H&P Date: 04/02/23 History & Physicial: Visit/CC: bariatric f/u Patient initial contact: Initial weight: 312 kg Initial weight in pounds: 687.84 Height: 5 ft 7 in Initial BMI: 107.7 Last weight: Current weight: 108.409 kg Current weight in pounds: 239.00 Current BMI: 37.4 [place] body weight (based on NIH guidelines): 61.235 kg Excess body weight loss: 81.1% The patient is a 37 year-old F who presents for Bariatric Assessment. Patient safe for bariatric follow-up. She's lost 8 pounds her last visit. Patient's currently taking wegovy. She has minimal complaints of GERD. Past Medical History Past Medical History: Asthma, Diabetes Mellitus, Fibromyalgia, GERD/Reflux, Sleep Apnea/CPAP/BIPAP, Thyroid Disorder Additional Past Medical History / Comment(s): Migraines with aura, DDD, NIDDM type II, diverticulitis with perforation/colostomy since reversed, IBS, chronic seroma, CARLITOS/no device, polycystic ovaries, hypothyroid, season allergies History of Any Multi-Drug Resistant Organisms: None Reported Past Surgical History: Bariatric Surgery, Cholecystectomy, Uterine Ablation Additional Past Surgical History / Comment(s): 06/06/21 sleeve gastrectomy, rt Breast biopsy. bowel resection with colostomy/ later colostomy reversal, abdominal surgery to remove scar tissue, EGD, colonoscopy, back pain procedures uterine ablation, lysis of adhesions 07/11/22 Past Anesthesia/Blood Transfusion Reactions: No Reported Reaction Additional Past Anesthesia/Blood Transfusion Reaction / Comm: no hx blood transfusion, received monoclonal antibodies in Feb 2021 Past Psychological History: Anxiety, Bipolar, Depression Additional Psychological History / Comment(s): Pt has eating disorder-binge eater, borderline personality disorder. Pt resides with her boyfriend and his mother. She is independent. Smoking Status: Never smoker Past Alcohol Use History: Occasional Past Drug Use History: None Reported - Past Family History Mother History Unknown: Yes Family Medical History: COPD Additional Family Medical History / Comment(s): Mother from COPD at the age of 55 yrs. Brother(s) Family Medical History: Diabetes Mellitus Father Family Medical History: Unable to Obtain Surgical - Exam Vital Signs Temp Pulse BP 99.1 F 84 120/84 04/02/23 10:43 04/02/23 10:43 04/02/23 10:43 - General well developed, well nourished, no distress - Eyes PERRL - ENT normal pinna - Neck no masses - Respiratory normal expansion - Abdomen Abdomen: soft, non tender Bariatric Assessment & Plan Plan: Resolving morbid obesity. Patient's GERD is minimal. She'll follow-up in 4 weeks. Bariatric Checklist Checklist: Plan: Checklist: EGD: 1. Hiatal hernia: 2. H. Pylori: HgbA1c: Vitamin D: Smoking: Never smoker Primary care physician referral: Dr. Alaniz Psychiatry clearance: Cardiology clearance: Sleep study: Diet journal: VTE risk score: VTE risk level: Rehab needs at discharge:
== END ==
LOC: BARWHC3 10:11
PROVIDERS: ATTEND Surgery
DX: E66.01 Morbid (severe) obesity due to excess calories (principal); E11.9 Type 2 diabetes mellitus without complications; K21.9 Gastro-esophageal reflux disease without esophagitis; J45.909 Unspecified asthma, uncomplicated; Z98.84 Bariatric surgery status; E03.9 Hypothyroidism, unspecified; M79.7 Fibromyalgia; Z99.89 Dependence on other enabling machines and devices; G43.109 Migraine with aura, not intractable, without status migrainosus; Z88.5 Allergy status to narcotic agent; Z88.1 Allergy status to other antibiotic agents; Z79.890 Hormone replacement therapy; G47.33 Obstructive sleep apnea (adult) (pediatric); Z90.49 Acquired absence of other specified parts of digestive tract
CPT/HCPCS: 99211

== ENCOUNTER 2023-04-17 10:42 | Emergency (ER) | payer BC ==
[2023-04-17] MEDS ORDERED: ONDANSETRON 4 MG/2 ML VIAL IVP STA (11:20)
[2023-04-17] MEDS ORDERED: diphenhydrAMINE 50 MG/ML 1 ML VIAL IVP STA (11:20)
[2023-04-17] MEDS ORDERED: KETOROLAC 15 MG/ML 1 ML VIAL IVP STA (11:20)
--- NOTE | 2023-04-17 11:23 | ED ---
General Adult HPI - General Chief complaint: Recheck/Abnormal Lab/Rx Stated complaint: Migraine Time Seen by Provider: 04/17/23 11:11 Source: patient Mode of arrival: ambulatory - History of Present Illness Initial comments: 37 year old male presenting to the ED with a chief complaint of headache. She notes a history of migraines. States Sunday started to experience a headache which then progressed to her typical symptoms of migraine including headache, intermittent blurred vision, photophobia, nausea, vomiting. In addition patient notes history of stuttering with her migraines however states she has not had problems with stuttering lately with a history of migraines. States that she called her neurology office who advised her to present to the ED for further evaluation. No chest pain or shortness of breath. Patient reports that she has are the taken her abortive medications with no relief. No other complaints. - Related Data Home Medications Medication Instructions Recorded Confirmed Levothyroxine Sodium [Synthroid] 50 mcg PO DAILY 05/05/14 04/02/23 Cetirizine HCl [Zyrtec] 10 mg PO DAILY 08/30/19 04/02/23 Pregabalin [Lyrica] 150 mg PO BID 08/30/19 04/02/23 Erenumab-Aooe [Aimovig 140 mg SQ Q30D 09/22/20 04/02/23 Autoinjector] HYDROcodone/APAP 7.5-325MG [[place] 1 tab PO BID PRN 08/23/21 04/02/23 7.5-325] Atogepant [Qulipta] 60 mg PO HS 11/28/21 04/02/23 Gilcvksvbvjsvg-BW-Tvsbjaqwwb 1 tab PO DAILY 12/12/21 04/02/23 [Folbic] Ferrous Sulfate [Iron (65 MG 325 mg PO DAILY 12/12/21 04/02/23 Elemental)] Nystatin 100,000 Unit/gm Powd 1 applic TOPICAL BID PRN 12/12/21 04/02/23 [Mycostatin Powder] Cyclobenzaprine [Flexeril] 10 mg PO DAILY PRN 01/06/22 04/02/23 Ergocalciferol (Vitamin D2) 1,250 mcg PO GARCIA 05/19/22 04/02/23 [Drisdol (50,000 Iu)] Fluconazole 200 mg PO GARCIA 05/19/22 04/02/23 Acetaminophen Tab [Tylenol] 650 mg PO Q6H PRN 10/02/22 04/02/23 Lasmiditan Succinate [Reyvow] 50 mg PO DAILY PRN 10/02/22 04/02/23 Metoclopramide [Reglan] 10 mg PO DAILY PRN 10/02/22 04/02/23 Semaglutide [Wegovy] 2.4 mg SQ GARCIA 10/02/22 04/02/23 Ketorolac [Toradol] 10 mg PO Q6HR PRN 10/30/22 04/02/23 Nystatin 1 applic TOPICAL BID PRN 11/19/22 04/02/23 buPROPion XL [Wellbutrin XL] 150 mg PO DAILY 01/08/23 04/02/23 Previous Rx's Medication Instructions Recorded Ibuprofen [Motrin] 800 mg PO Q8HR PRN #30 tab 10/14/22 Ondansetron Odt [Zofran Odt] 4 mg PO Q8HR PRN #20 tab 12/07/22 Allergies Allergy/AdvReac Type Severity Reaction Status Date / Time codeine AdvReac Hallucinati Verified 04/17/23 10:57 ons tramadol AdvReac Hallucinati Verified 04/17/23 10:57 ons valacyclovir HCl AdvReac BLURRED Verified 04/17/23 10:57 [From Valtrex] VISION Review of Systems ROS Statement: Those systems with pertinent positive or pertinent negative responses have been documented in the HPI. ROS Other: All systems not noted in ROS Statement are negative. Past Medical History Past Medical History: Asthma, Diabetes Mellitus, Fibromyalgia, GERD/Reflux, Sleep Apnea/CPAP/BIPAP, Thyroid Disorder Additional Past Medical History / Comment(s): Migraines with aura, DDD, NIDDM type II, diverticulitis with perforation/colostomy since reversed, IBS, chronic seroma, CARLITOS/no device, polycystic ovaries, hypothyroid, season allergies History of Any Multi-Drug Resistant Organisms: None Reported Past Surgical History: Bariatric Surgery, Cholecystectomy, Uterine Ablation Additional Past Surgical History / Comment(s): 06/06/21 sleeve gastrectomy, rt Breast biopsy. bowel resection with colostomy/ later colostomy reversal, abdominal surgery to remove scar tissue, EGD, colonoscopy, back pain procedures uterine ablation, lysis of adhesions 07/11/22 Past Anesthesia/Blood Transfusion Reactions: No Reported Reaction Additional Past Anesthesia/Blood Transfusion Reaction / Comment(s): no hx blood transfusion, received monoclonal antibodies in Feb 2021 Past Psychological History: Anxiety, Bipolar, Depression Smoking Status: Never smoker Past Alcohol Use History: Occasional Past Drug Use History: None Reported - Past Family History Mother History Unknown: Yes Family Medical History: COPD Additional Family Medical History / Comment(s): Mother from COPD at the age of 55 yrs. Brother(s) Family Medical History: Diabetes Mellitus Father Family Medical History: Unable to Obtain General Exam General appearance: alert, in no apparent distress Eye exam: Present: PERRL, EOMI Respiratory exam: Present: normal lung sounds bilaterally Cardiovascular Exam: Present: regular rate, normal rhythm GI/Abdominal exam: Present: soft Neurological exam: Present: alert, oriented X3, CN II-XII intact Skin exam: Present: warm, dry Course Vital Signs 04/17/23 10:46 Temperature 98.6 F Pulse Rate 86 Respiratory 16 Rate Blood Pressure 120/84 O2 Sat by Pulse 99 Oximetry Medical Decision Making - Medical Decision Making Was pt. sent in by a medical professional or institution (, PA, HOSPITALITY RECRUITER, urgent care, hospital, or penitentiary...) When possible be specific @ -No Did you speak to anyone other than the patient for history (EMS, parent, family, police, friend...)? What history was obtained from this source @ -No Did you review nursing and triage notes (agree or disagree)? Why? @ -I reviewed and agree with nursing and triage notes Were old charts reviewed (outside hosp., previous admission, EMS record, old EKG, old radiological studies, urgent care reports/EKG's, penitentiary records)? Report findings @ -Old charts reviewed. Patient well known to our department with complaints of migraines and low back pain. Differential Diagnosis (chest pain, altered mental status, abdominal pain women, abdominal pain men, vaginal bleeding, weakness, fever, dyspnea, syncope, headache, dizziness, GI bleed, back pain, seizure, CVA, palpatations, mental health, musculoskeletal)? @ -Differential Headache: Migraine, tension, cluster, carbon monoxide, central venous thrombosis, pension karma temporal arteritis, acute closure glaucoma, intercranial hemorrhage, mastoiditis, sinusitis, head injury, this is not meant to be an all-inclusive list. EKG interpreted by me (3pts min.). @ -Discharge X-rays interpreted by me (1pt min.). @ -None done CT interpreted by me (1pt min.). @ -CT brain interpreted by me showing no evidence of bleed or other acute finding. U/S interpreted by me (1pt. min.). @ -None done What testing was considered but not performed or refused? (CT, X-rays, U/S, labs)? Why? @ -None What meds were considered but not given or refused? Why? @ -None Did you discuss the management of the patient with other professionals (professionals i.e. , PA, HOSPITALITY RECRUITER, lab, RT, psych nurse, 7th grade social studies teacher, health club manager, teacher, special officer automat, case management coordinator)? Give summary @ -No Was smoking cessation discussed for >3mins.? @ -No Was critical care preformed (if so, how long)? @ -No Were there social determinants of health that impacted care today? How? (Homelessness, low income, unemployed, alcoholism, drug addiction, transportation, low edu. Level, literacy, decrease access to med. care, fpc, rehab)? @ -No Was there de-escalation of care discussed even if they declined (Discuss DNR or withdrawal of care, Hospice)? DNR status @ -No What co-morbidities impacted this encounter? (DM, HTN, Smoking, COPD, CAD, Cancer, CVA, ARF, Chemo, Hep., AIDS, mental health diagnosis, sleep apnea, morbid obesity)? @ -None Was patient admitted / discharged? Hospital course, mention meds given and route, prescriptions, significant lab abnormalities, going to OR and other pertinent info. @ -Discharged 37-year-old female with a history of migraines presenting to the ED with a chief complaint of migraine. Patient notes her recent migraines did not have any stutters and thus was advised by her neurology office to present to the ED to rule out stroke. Laboratory studies reviewed. Labs including CBC, chemistry panel, UA unremarkable. CT of the brain revealed no acute process. Exam at this time including cranial nerve exam 2-12 unremarkable. Patient ambulates without significant difficulty. Patient had improvement of symptoms with medications here. Discharged home in stable condition. Discussed return precautions with patient who verbalizes agreement. Undiagnosed new problem with uncertain prognosis? @ -No Drug Therapy requiring intensive monitoring for toxicity (Heparin, Nitro, Insulin, Cardizem)? @ -No Were any procedures done? @ -No Diagnosis/symptom? @ -Headache Acute, or Chronic, or Acute on Chronic? @ -Acute On chronic Uncomplicated (without systemic symptoms) or Complicated (systemic symptoms)? @ -Uncomplicated Side effects of treatment? @ -No Exacerbation, Progression, or Severe Exacerbation? @ -No Poses a threat to life or bodily function? How? (Chest pain, [place], [place], pneumonia, PE, COPD, DKA, ARF, appy, cholecystitis, CVA, Diverticulitis, Homicidal, Suici ludmila, threat to staff... and all critical care pts) @ -No - Lab Data Result diagrams: 04/17/23 11:42 04/17/23 11:42 Lab Results 04/17/23 04/17/23 04/17/23 Range/Units 11:42 11:42 11:48 WBC 9.2 (3.8-10.6) k/uL RBC 4.85 (3.80-5.40) m/uL Hgb 14.5 (11.4-16.0) gm/dL Hct 43.4 (34.0-46.0) % MCV 89.4 (80.0-100.0) fL MCH 29.9 (25.0-35.0) pg MCHC 33.4 (31.0-37.0) g/dL RDW 13.3 (11.5-15.5) % Plt Count 258 (150-450) k/uL MPV 7.7 Neutrophils % 76 % Lymphocytes % 17 % Monocytes % 5 % Eosinophils % 2 % Basophils % 0 % Neutrophils # 7.0 (1.3-7.7) k/uL Lymphocytes # 1.6 (1.0-4.8) k/uL Monocytes # 0.4 (0-1.0) k/uL Eosinophils # 0.1 (0-0.7) k/uL Basophils # 0.0 (0-0.2) k/uL Sodium 140 (137-145) mmol/L Potassium 4.4 (3.5-5.1) mmol/L Chloride 106 (98-107) mmol/L Carbon Dioxide 25 (22-30) mmol/L Anion Gap 9 mmol/L BUN 13 (7-17) mg/dL Creatinine 0.67 (0.52-1.04) mg/dL Est GFR (CKD-EPI)AfAm >90 (>60 ml/min/1.73 sqM) Est GFR (CKD-EPI)NonAf >90 (>60 ml/min/1.73 sqM) Glucose 104 H (74-99) mg/dL Calcium 9.4 (8.4-10.2) mg/dL Total Bilirubin 0.9 (0.2-1.3) mg/dL AST 36 (14-36) U/L ALT 26 (4-34) U/L Alkaline Phosphatase 76 (38-126) U/L Total Protein 6.9 (6.3-8.2) g/dL Albumin 3.9 (3.5-5.0) g/dL Urine Color Light [place] Urine Appearance Clear (Clear) Urine pH 6.0 (5.0-8.0) Ur Specific [place] >1.030 (1.001-1.035) Urine Protein Trace H (Negative) Urine Glucose (UA) Negative (Negative) Urine Ketones Trace (Negative) Urine Blood Negative (Negative) Urine Nitrite Negative (Negative) Urine Bilirubin Negative (Negative) Urine Urobilinogen 2.0 (<2.0) mg/dL Ur Leukocyte Esterase Moderate (Negative) Urine RBC 3 (0-5) /hpf Urine WBC 7 H (0-5) /hpf Ur Squamous Epith Cells 5 H (0-4) /hpf Urine Bacteria Many H (None) /hpf Hyaline Casts 5 H (0-2) /lpf Urine Mucus Many H (None) /hpf Disposition Clinical Impression: Migraine Disposition: HOME SELF-CARE Condition: Good Additional Instructions: Please return to the Emergency Department if symptoms worsen or any other concerns. Please follow-up with your neurologist. Is patient prescribed a controlled substance at d/c from ED?: No Referrals: Alfred Varela [Primary Care Provider] - 1-2 days Time of Disposition: 13:02
[2023-04-17] MEDS ORDERED: ACETAMINOPHEN TAB 500 MG TAB PO STA (11:25)
[2023-04-17 11:54] LABS: Basophils % (A) 0 %; Eosinophils # (A) 0.1 k/uL (0-0.7); Eosinophils % (A) 2 %; HCT 43.4 % (34.0-46.0); HGB 14.5 gm/dL (11.4-16.0); Lymphocytes # (A) 1.6 k/uL (1.0-4.8); Lymphocytes % (A) 17 %; MCH 29.9 pg (25.0-35.0); MCHC 33.4 g/dL (31.0-37.0); MCV 89.4 fL (80.0-100.0); Mean Platelet Volume 7.7; Monocytes # (A) 0.4 k/uL (0-1.0); Monocytes % (A) 5 %; Neutrophils % (A) 76 %; Platelet Count 258 k/uL (150-450); RBC 4.85 m/uL (3.80-5.40); RDW 13.3 % (11.5-15.5); WBC 9.2 k/uL (3.8-10.6)
[2023-04-17 12:05] LABS: ALT 26 U/L (4-34); African American GFR (CKD) >90 (>60 ml/min/1.73 sqM); Albumin 3.9 g/dL (3.5-5.0); Anion Gap 9 mmol/L; Blood Urea Nitrogen 13 mg/dL (7-17); Calcium 9.4 mg/dL (8.4-10.2); Carbon Dioxide 25 mmol/L (22-30); Chloride 106 mmol/L (98-107); Glucose 104 mg/dL (74-99); Non-African American GFR(CKD) >90 (>60 ml/min/1.73 sqM); Sodium 140 mmol/L (137-145); Total Bilirubin 0.9 mg/dL (0.2-1.3); Total Protein 6.9 g/dL (6.3-8.2)
[2023-04-17 12:08] LABS: AST 36 U/L (14-36); Alkaline Phosphatase 76 U/L (38-126); Potassium 4.4 mmol/L (3.5-5.1)
[2023-04-17 12:27] LABS: Bacteria,Urine Many /hpf; Hyaline Casts,Urine 5 /lpf (0-2); Mucus,Urine Many /hpf; RBC,Urine 3 /hpf (0-5); Squamous Epithelial Cell,Urine 5 /hpf (0-4); WBC,Urine 7 /hpf (0-5)
[2023-04-17 12:28] LABS: Appearance,Urine Clear (Clear); Color,Urine Light Orange; Specific Gravity,Urine >1.030 (1.001-1.035)
[2023-04-17 12:29] LABS: Bilirubin,Urine Negative (Negative); Blood,Urine Negative (Negative); Glucose,Urine (UA) Negative (Negative); Ketones,Urine Trace (Negative); Nitrite,Urine Negative (Negative); Protein,Urine Trace (Negative)
[2023-04-17 12:30] LABS: Leukocyte Esterase,Urine Moderate (Negative)
--- NOTE | 2023-04-17 12:32 | CT ---
EXAMINATION TYPE: CT brain wo con DATE OF EXAM: 04/17/2023 COMPARISON: 10/28/2022 HISTORY: YOUNG, stutter CT DLP: 1058.[address] of the brain was performed. The ventricles, basal cisterns and sulci overlying the cerebral convexities demonstrate a normal appe arance. There is no evidence for intracranial hemorrhage or sulcal effacement. No mass effects are seen. Osseous calvarium is intact. If symptoms persist consider MRI as clinically warranted. IMPRESSION: 1. No acute intracranial process is seen at this time.
[2023-04-17] MEDS ORDERED: MORPHINE SULFATE 4 MG/ML SYRINGE IVP STA (12:57)
[2023-04-17 13:27] VITALS: BP 95/54; PULSE 67; RESP 18; TEMP 98.3
== END 2023-04-17 13:31 | disposition home or self-care (01) ==
LOC: EC 10:42
DX: G43.909 Migraine, unspecified, not intractable, without status migrainosus (principal); E11.9 Type 2 diabetes mellitus without complications; J45.909 Unspecified asthma, uncomplicated; E07.9 Disorder of thyroid, unspecified; G47.30 Sleep apnea, unspecified; F41.9 Anxiety disorder, unspecified; F31.9 Bipolar disorder, unspecified; Z79.899 Other long term (current) drug therapy; Z79.890 Hormone replacement therapy; Z88.5 Allergy status to narcotic agent; Z88.8 Allergy status to other drugs, medicaments and biological substances
CPT/HCPCS: 36415; 80053; 85025; 81001; 70450; 99284; 96374; 96375 ×3; J2270; J1200; J2405; J1885

== ENCOUNTER 2023-05-02 16:30 | Emergency (ER) | payer BC ==
[2023-05-02 16:55] VITALS: RESP 16; TEMP 97.4
[2023-05-02] MEDS ORDERED: PROCHLORPERAZINE 10 MG TAB PO STA (19:20)
[2023-05-02] MEDS ORDERED: HYDROmorphone 1 MG/ML 1 ML SYRINGE IM STA (19:20)
[2023-05-02] MEDS ORDERED: hydrOXYzine HCL 25 MG TAB PO STA (19:20)
--- NOTE | 2023-05-02 19:21 | ED ---
Headache HPI - General Chief Complaint: Headache Stated Complaint: Migraine,Slurred Speech Time Seen by Provider: 05/02/23 18:23 Source: RN notes reviewed, old records reviewed Mode of arrival: ambulatory Limitations: no limitations - History of Present Illness Initial Comments: This is a 38-year-old female to the emergency department today for the headaches today. Patient has persistent headache migraine. Patient is well-known to this emergency department and presents here in the ER. Patient's headache is persistent with some difficulty with speech. This is normal for her. Patient states she cannot keep down pain medication at home secondary to nausea vomiting is presenting for migraine in the -: days(s) Onset Description: gradual Location: right, left, frontal, temporal Severity: severe Quality: similar to previous headaches Consistency: constant, intermittent Improves With: nothing Worsens With: none Associated Symptoms: nausea, confusion Other Symptoms: other (0) Treatments Prior to Arrival: none - Related Data Home Medications Medication Instructions Recorded Confirmed Levothyroxine Sodium [Synthroid] 50 mcg PO DAILY 05/05/14 04/02/23 Cetirizine HCl [Zyrtec] 10 mg PO DAILY 08/30/19 04/02/23 Pregabalin [Lyrica] 150 mg PO BID 08/30/19 04/02/23 Erenumab-Aooe [Aimovig 140 mg SQ Q30D 09/22/20 04/02/23 Autoinjector] HYDROcodone/APAP 7.5-325MG [[place] 1 tab PO BID PRN 08/23/21 04/02/23 7.5-325] Atogepant [Qulipta] 60 mg PO HS 11/28/21 04/02/23 Flwbnauoymlyan-RQ-Njiaqgpjod 1 tab PO DAILY 12/12/21 04/02/23 [Folbic] Ferrous Sulfate [Iron (65 MG 325 mg PO DAILY 12/12/21 04/02/23 Elemental)] Nystatin 100,000 Unit/gm Powd 1 applic TOPICAL BID PRN 12/12/21 04/02/23 [Mycostatin Powder] Cyclobenzaprine [Flexeril] 10 mg PO DAILY PRN 01/06/22 04/02/23 Ergocalciferol (Vitamin D2) 1,250 mcg PO GARCIA 05/19/22 04/02/23 [Drisdol (50,000 Iu)] Fluconazole 200 mg PO GARCIA 05/19/22 04/02/23 Acetaminophen Tab [Tylenol] 650 mg PO Q6H PRN 10/02/22 04/02/23 Lasmiditan Succinate [Reyvow] 50 mg PO DAILY PRN 10/02/22 04/02/23 Metoclopramide [Reglan] 10 mg PO DAILY PRN 10/02/22 04/02/23 Semaglutide [Wegovy] 2.4 mg SQ GARCIA 10/02/22 04/02/23 Ketorolac [Toradol] 10 mg PO Q6HR PRN 10/30/22 04/02/23 Nystatin 1 applic TOPICAL BID PRN 11/19/22 04/02/23 buPROPion XL [Wellbutrin XL] 150 mg PO DAILY 01/08/23 04/02/23 Previous Rx's Medication Instructions Recorded Ibuprofen [Motrin] 800 mg PO Q8HR PRN #30 tab 10/14/22 Ondansetron Odt [Zofran Odt] 4 mg PO Q8HR PRN #20 tab 12/07/22 Allergies Allergy/AdvReac Type Severity Reaction Status Date / Time codeine AdvReac Hallucinati Verified 05/02/23 16:47 ons tramadol AdvReac Hallucinati Verified 05/02/23 16:47 ons valacyclovir HCl AdvReac BLURRED Verified 05/02/23 16:47 [From Valtrex] VISION Review of Systems ROS Statement: Those systems with pertinent positive or pertinent negative responses have been documented in the HPI. ROS Other: All systems not noted in ROS Statement are negative. Past Medical History Past Medical History: Asthma, Diabetes Mellitus, Fibromyalgia, GERD/Reflux, Sleep Apnea/CPAP/BIPAP, Thyroid Disorder Additional Past Medical History / Comment(s): Migraines with aura, DDD, NIDDM type II, diverticulitis with perforation/colostomy since reversed, IBS, chronic seroma, CARLITOS/no device, polycystic ovaries, hypothyroid, season allergies History of Any Multi-Drug Resistant Organisms: None Reported Past Surgical History: Bariatric Surgery, Cholecystectomy, Uterine Ablation Additional Past Surgical History / Comment(s): 06/06/21 sleeve gastrectomy, rt Breast biopsy. bowel resection with colostomy/ later colostomy reversal, abdominal surgery to remove scar tissue, EGD, colonoscopy, back pain procedures uterine ablation, lysis of adhesions 07/11/22 Past Anesthesia/Blood Transfusion Reactions: No Reported Reaction Additional Past Anesthesia/Blood Transfusion Reaction / Comment(s): no hx blood transfusion, received monoclonal antibodies in Feb 2021 Past Psychological History: Anxiety, Bipolar, Depression Smoking Status: Never smoker Past Alcohol Use History: Occasional Past Drug Use History: None Reported - Past Family History Mother History Unknown: Yes Family Medical History: COPD Additional Family Medical History / Comment(s): Mother from COPD at the age of 55 yrs. Brother(s) Family Medical History: Diabetes Mellitus Father Family Medical History: Unable to Obtain General Exam Limitations: no limitations General appearance: alert, in no apparent distress Head exam: Present: atraumatic, normocephalic, normal inspection Eye exam: Present: normal appearance, PERRL, EOMI. Absent: scleral icterus, conjunctival injection, periorbital swelling ENT exam: Present: normal exam, mucous membranes moist Neck exam: Present: normal inspection. Absent: tenderness, meningismus, lymphadenopathy Respiratory exam: Present: normal lung sounds bilaterally. Absent: respiratory distress, wheezes, rales, rhonchi, stridor Cardiovascular Exam: Present: regular rate, normal rhythm, normal heart sounds. Absent: systolic murmur, diastolic murmur, rubs, gallop, clicks GI/Abdominal exam: Present: soft, normal bowel sounds. Absent: distended, tenderness, guarding, rebound, rigid Extremities exam: Present: normal inspection, full ROM, normal capillary refill. Absent: tenderness, pedal edema, joint swelling, calf tenderness Back exam: Present: normal inspection Neurological exam: Present: alert, oriented X3, CN II-XII intact Psychiatric exam: Present: normal affect, normal mood Skin exam: Present: warm, dry, intact, normal color. Absent: rash Course Vital Signs 05/02/23 05/02/23 16:44 19:36 Temperature 97.4 F L Pulse Rate 68 64 Respiratory 16 16 Rate Blood Pressure 128/87 109/74 O2 Sat by Pulse 96 95 Oximetry - Reevaluation(s) Reevaluation #1: Medical records reviewed Reevaluation #2: Patient symptoms are improved Reevaluation #3: Patient informed of results questions answered Reevaluation #4: Was pt. sent in by a medical professional or institution (, PA, HEEL FINISHER, urgent care, hospital, or intermediate...) When possible be specific @ -no Did you speak to anyone other than the patient for history (EMS, parent, family, police, friend...)? What history was obtained from this source @ -no Did you review nursing and triage notes (agree or disagree)? Why? @ -agree Are old charts reviewed (outside hosp., previous admission, EMS record, old EKG, old radiological studies, urgent care reports/EKG's, intermediate records)? Report findings @ -yes Differential Diagnosis (chest pain, altered mental status, abdominal pain women, abdominal pain men, vaginal bleeding, weakness, fever, dyspnea, syncope, hea dache, dizziness, GI bleed, back pain, seizure, CVA, palpatations, mental health, musculoskeletal)? @ -prior EKG interpreted by me (3pts min.). @ -no X-rays interpreted by me (1pt min.). @ -no CT interpreted by me (1pt min.). @ -no U/S interpreted by me (1pt. min.). @ -no What testing was considered but not performed or refused? (CT, X-rays, U/S, labs)? Why? @ -none What meds were considered but not given or refused? Why? @ -none Did you discuss the management of the patient with other professionals (professionals i.e. SOILA Carrera, HEEL FINISHER, lab, RT, psych nurse, clinical social work aide, sales account executive, teacher, staff electronic warfare officer, case fitter)? Give summary @ -no Was smoking cessation discussed for >3mins.? @ -no Was critical care preformed (if so, how long)? @ -no Were there social determinants of health that impacted care today? How? (Homelessness, low income, unemployed, alcoholism, drug addiction, transportation, low edu. Level, literacy, decrease access to med. care, fdc, rehab)? @ -none Was there de-escalation of care discussed even if they declined (Discuss DNR or withdrawal of care, Hospice)? DNR status @ -no What co-morbidities impacted this encounter? (DM, HTN, Smoking, COPD, CAD, Cancer, CVA, ARF, Chemo, Hep., AIDS, mental health diagnosis, sleep apnea, morbid obesity)? @ -none Was patient admitted / discharged? Hospital course, mention meds given and route, prescriptions, significant lab abnormalities, going to OR and other pertinent info. @ - 38-year-old female well-known to this emergency room today for evaluation of migraine headaches. Patient has complex migraine which is improved here in the ER she can be discharged home Discharge Undiagnosed new problem with uncertain prognosis? @ -no Drug Therapy requiring intensive monitoring for toxicity (Heparin, Nitro, Insuli n, Cardizem)? @ -no Were any procedures done? @ -no Diagnosis/symptom? @ -Acute headache migraine headache Acute, or Chronic, or Acute on Chronic? @ -Acute Uncomplicated (without systemic symptoms) or Complicated (systemic symptoms)? @ -Complicated Side effects of treatment? @ -no Exacerbation, Progression, or Severe Exacerbation? @ -exacerbation Poses a threat to life or bodily function? How? (Chest pain, [place], [place], pneumonia, PE, COPD, DKA, ARF, appy, cholecystitis, CVA, Diverticulitis, Homicidal, Suicidal, threat to staff... and all critical care pts) @ -no Reevaluation #5: Differential Headache: Migraine, tension, cluster, carbon monoxide, central venous thrombosis, pension karma temporal arteritis, acute closure glaucoma, intercranial hemorrhage, mastoiditis, sinusitis, head injury, this is not meant to be an all-inclusive list. Medical Decision Making - Medical Decision Making 38-year-old female well-known to this emergency room today for evaluation of migraine headaches. Patient has complex migraine which is improved here in the ER she can be discharged home Disposition Clinical Impression: Migraine Disposition: HOME SELF-CARE Condition: Fair Instructions (If sedation given, give patient instructions): Acute Headache (ED) Is patient prescribed a controlled substance at d/c from ED?: No Referrals: Alfred Varela [Primary Care Provider] - 1-2 days Time of Disposition: 19:10
[2023-05-02 19:56] VITALS: BP 109/74; PULSE 64
== END 2023-05-02 20:35 | disposition home or self-care (01) ==
LOC: EC 16:30
DX: G43.E09 Chronic migraine with aura, not intractable, without status migrainosus (principal); J45.909 Unspecified asthma, uncomplicated; E11.9 Type 2 diabetes mellitus without complications; K21.9 Gastro-esophageal reflux disease without esophagitis; E07.9 Disorder of thyroid, unspecified; F41.9 Anxiety disorder, unspecified; F31.9 Bipolar disorder, unspecified; Z88.5 Allergy status to narcotic agent; Z88.8 Allergy status to other drugs, medicaments and biological substances; Z79.890 Hormone replacement therapy; Z79.899 Other long term (current) drug therapy
CPT/HCPCS: 99283; 96372; S0183; J1170

== ENCOUNTER → 2023-05-21 | Outpatient (CLI) | payer BC ==
[2023-05-21 11:08] VITALS: BP 123/79; PULSE 71; TEMP 98.1; BMI 36.5
--- NOTE | 2023-07-04 09:10 | P.HPBAR ---
Bariatric H&P - History & Physicial H&P Date: 05/21/23 History & Physicial: Visit/CC: F/U Patient initial contact: Initial weight: 312 kg Initial weight in pounds: 687.84 Height: 5 ft 7 in Initial BMI: 107.7 Last weight: Current weight: 105.687 kg Current weight in pounds: 233.00 Current BMI: 36.5 [place] body weight (based on NIH guidelines): 61.235 kg Excess body weight loss: 82.2% The patient is a 38 year-old F who presents for Bariatric Assessment. patient presents today for Follow-up. She has had some minimal GERD. She states she is doing well. She recently started Wegovy. She is lost 6 pound since her last visit. Past Medical History Past Medical History: Asthma, Diabetes Mellitus, Fibromyalgia, GERD/Reflux, Sleep Apnea/CPAP/BIPAP, Thyroid Disorder Additional Past Medical History / Comment(s): Migraines with aura, DDD, NIDDM type II, diverticulitis with perforation/colostomy since reversed, IBS, chronic seroma, CARLITOS/no device, polycystic ovaries, hypothyroid, season allergies History of Any Multi-Drug Resistant Organisms: None Reported Past Surgical History: Bariatric Surgery, Cholecystectomy, Uterine Ablation Additional Past Surgical History / Comment(s): 06/06/21 sleeve gastrectomy, rt Breast biopsy. bowel resection with colostomy/ later colostomy reversal, abdominal surgery to remove scar tissue, EGD, colonoscopy, back pain procedures uterine ablation, lysis of adhesions 07/11/22 Past Anesthesia/Blood Transfusion Reactions: No Reported Reaction Additional Past Anesthesia/Blood Transfusion Reaction / Comm: no hx blood transfusion, received monoclonal antibodies in Feb 2021 Past Psychological History: Anxiety, Bipolar, Depression Additional Psychological History / Comment(s): Pt has eating disorder-binge eater, borderline personality disorder. Pt resides with her boyfriend and his mother. She is independent. Smoking Status: Never smoker Past Alcohol Use History: Occasional Past Drug Use History: None Reported - Past Family History Mother History Unknown: Yes Family Medical History: COPD Additional Family Medical History / Comment(s): Mother from COPD at the age of 55 yrs. Brother(s) Family Medical History: Diabetes Mellitus Father Family Medical History: Unable to Obtain Surgical - Exam Vital Signs Temp Pulse BP 98.1 F 71 123/79 05/21/23 10:54 05/21/23 10:54 05/21/23 10:54 - General well developed, well nourished, no distress - Eyes PERRL - ENT normal pinna, normal nares - Abdomen Abdomen: soft, non tender Bariatric Assessment & Plan Plan: Status post sleeve gastrectomy. Patient's GERD is minimal and will be observed. She will continue medical weight loss with Wegovy Bariatric Checklist Checklist: Plan: Checklist: EGD: 1. Hiatal hernia: 2. H. Pylori: HgbA1c: Vitamin D: Smoking: Never smoker Primary care physician referral: Dr. Alaniz Psychiatry clearance: Cardiology clearance: Sleep study: Diet journal: VTE risk score: VTE risk level: Rehab needs at discharge:
== END ==
LOC: BARWHC3 10:10
PROVIDERS: ATTEND Surgery
DX: E66.01 Morbid (severe) obesity due to excess calories (principal); K21.9 Gastro-esophageal reflux disease without esophagitis; G43.109 Migraine with aura, not intractable, without status migrainosus; M51.9 Unspecified thoracic, thoracolumbar and lumbosacral intervertebral disc disorder; E11.8 Type 2 diabetes mellitus with unspecified complications; K57.30 Diverticulosis of large intestine without perforation or abscess without bleeding; G47.33 Obstructive sleep apnea (adult) (pediatric); E03.9 Hypothyroidism, unspecified; F31.9 Bipolar disorder, unspecified; Z98.84 Bariatric surgery status; Z90.49 Acquired absence of other specified parts of digestive tract; Z98.890 Other specified postprocedural states; Z68.36 Body mass index [BMI] 36.0-36.9, adult; Z88.5 Allergy status to narcotic agent; Z88.1 Allergy status to other antibiotic agents; Z88.8 Allergy status to other drugs, medicaments and biological substances; Z79.890 Hormone replacement therapy
CPT/HCPCS: 99211

== ENCOUNTER → 2023-06-04 | Outpatient (CLI) | payer BC ==
--- NOTE | 2023-06-05 09:14 | MM ---
Reason for Exam: Screening (asymptomatic). Patient History: Menarche at age 10. Patient has no children. 2010, Lumpectomy on the Right side. Risk Values: Kaitlyn 5 year model risk: 0.6%. NCI Lifetime model risk: 11.1%. Tissue Density: There are scattered fibroglandular densities. Findings: Analyzed By CAD. Focal asymmetry in the right breast posterior depth 8:00 position for which further evaluation is recommended. Typically benign intramammary lymph node left upper-outer quadrant. No suspicious microcalcification or other discrete abnormality is seen. Overall Assessment: Incomplete: need additional imaging evaluation, BI-RAD 0 Management: Special View Mammogram of the right breast. Diagnostic Breast Ultrasound of the right breast. . [facility] will attempt to contact patient to return for supplemental views and ultrasound if indicated. Electronically signed and approved by: Augusto Luna M.D. Radiologist
== END | disposition home or self-care (01) ==
LOC: RADMAMWWP 08:05
PROVIDERS: ATTEND Family Medicine
DX: Z00.00 Encounter for general adult medical examination without abnormal findings (principal); Z12.31 Encounter for screening mammogram for malignant neoplasm of breast
CPT/HCPCS: 77063; 77067

== ENCOUNTER 2023-06-08 16:14 | Emergency (ER) | payer BC ==
[2023-06-08 16:31] VITALS: RESP 18
--- NOTE | 2023-06-08 16:36 | ED ---
Back Pain HPI - General Chief Complaint: Back Pain/Injury Stated Complaint: Lower Back Pain Time Seen by Provider: 06/08/23 16:20 Source: patient, RN notes reviewed, old records reviewed Mode of arrival: ambulatory Limitations: no limitations - History of Present Illness Initial Comments: This is a 38-year-old female to the ER for evaluation today. Patient presents today for evaluation regards to pain back pain known history of chronic pain and headaches. Patient has no trauma no fevers no other complaints relating to back pain no neurological symptoms. MD Complaint: back pain, other (Chronic pain) -: days(s) Similar Symptoms Previously: Yes Place: home Radiation: none Severity: moderate Severity scale (1-10): 7 Quality: stabbing, aching Consistency: constant Improves With: none, movement Context: while lifting, turning/twisting, unknown Associated Symptoms: denies other symptoms - Related Data Home Medications Medication Instructions Recorded Confirmed Levothyroxine Sodium [Synthroid] 50 mcg PO DAILY 05/05/14 05/21/23 Cetirizine HCl [Zyrtec] 10 mg PO DAILY 08/30/19 05/21/23 Pregabalin [Lyrica] 150 mg PO BID 08/30/19 05/21/23 Erenumab-Aooe [Aimovig 140 mg SQ Q30D 09/22/20 05/21/23 Autoinjector] HYDROcodone/APAP 7.5-325MG [[place] 1 tab PO BID PRN 08/23/21 05/21/23 7.5-325] Atogepant [Qulipta] 60 mg PO HS 11/28/21 05/21/23 Vlorzcmairerdl-LM-Cnlzdgchju 1 tab PO DAILY 12/12/21 05/21/23 [Folbic] Ferrous Sulfate [Iron (65 MG 325 mg PO DAILY 12/12/21 05/21/23 Elemental)] Nystatin 100,000 Unit/gm Powd 1 applic TOPICAL BID PRN 12/12/21 05/21/23 [Mycostatin Powder] Cyclobenzaprine [Flexeril] 10 mg PO DAILY PRN 01/06/22 05/21/23 Ergocalciferol (Vitamin D2) 1,250 mcg PO GARCIA 05/19/22 05/21/23 [Drisdol (50,000 Iu)] Fluconazole 200 mg PO GARCIA 05/19/22 05/21/23 Acetaminophen Tab [Tylenol] 650 mg PO Q6H PRN 10/02/22 05/21/23 Lasmiditan Succinate [Reyvow] 50 mg PO DAILY PRN 10/02/22 05/21/23 Metoclopramide [Reglan] 10 mg PO DAILY PRN 10/02/22 05/21/23 Semaglutide [Wegovy] 2.4 mg SQ GARCIA 10/02/22 05/21/23 Ketorolac [Toradol] 10 mg PO Q6HR PRN 10/30/22 05/21/23 Nystatin 1 applic TOPICAL BID PRN 11/19/22 05/21/23 buPROPion XL [Wellbutrin XL] 150 mg PO DAILY 01/08/23 05/21/23 Previous Rx's Medication Instructions Recorded Ibuprofen [Motrin] 800 mg PO Q8HR PRN #30 tab 10/14/22 Ondansetron Odt [Zofran Odt] 4 mg PO Q8HR PRN #20 tab 12/07/22 Allergies Allergy/AdvReac Type Severity Reaction Status Date / Time codeine AdvReac Hallucinati Verified 06/08/23 16:19 ons tramadol AdvReac Hallucinati Verified 06/08/23 16:19 ons valacyclovir HCl AdvReac BLURRED Verified 06/08/23 16:19 [From Valtrex] VISION Review of Systems ROS Statement: Those systems with pertinent positive or pertinent negative responses have been documented in the HPI. ROS Other: All systems not noted in ROS Statement are negative. Past Medical History Past Medical History: Asthma, Diabetes Mellitus, Fibromyalgia, GERD/Reflux, Sleep Apnea/CPAP/BIPAP, Thyroid Disorder Additional Past Medical History / Comment(s): Migraines with aura, DDD, NIDDM type II, diverticulitis with perforation/colostomy since reversed, IBS, chronic seroma, CARLITOS/no device, polycystic ovaries, hypothyroid, season allergies History of Any Multi-Drug Resistant Organisms: None Reported Past Surgical History: Bariatric Surgery, Cholecystectomy, Uterine Ablation Additional Past Surgical History / Comment(s): 06/06/21 sleeve gastrectomy, rt Breast biopsy. bowel resection with colostomy/ later colostomy reversal, abdominal surgery to remove scar tissue, EGD, colonoscopy, back pain procedures uterine ablation, lysis of adhesions 07/11/22 Past Anesthesia/Blood Transfusion Reactions: No Reported Reaction Additional Past Anesthesia/Blood Transfusion Reaction / Comment(s): no hx blood transfusion, received monoclonal antibodies in Feb 2021 Past Psychological History: Anxiety, Bipolar, Depression Smoking Status: Never smoker Past Alcohol Use History: Occasional Past Drug Use History: None Reported - Past Family History Mother History Unknown: Yes Family Medical History: COPD Additional Family Medical History / Comment(s): Mother from COPD at the age of 55 yrs. Brother(s) Family Medical History: Diabetes Mellitus Father Family Medical History: Unable to Obtain General Exam Limitations: no limitations General appearance: alert, in no apparent distress Head exam: Present: atraumatic, normocephalic, normal inspection Eye exam: Present: normal appearance, PERRL, EOMI. Absent: scleral icterus, conjunctival injection, periorbital swelling ENT exam: Present: normal exam, mucous membranes moist Neck exam: Present: normal inspection. Absent: tenderness, meningismus, lymphadenopathy Respiratory exam: Present: normal lung sounds bilaterally. Absent: respiratory distress, wheezes, rales, rhonchi, stridor Cardiovascular Exam: Present: regular rate, normal rhythm, normal heart sounds. Absent: systolic murmur, diastolic murmur, rubs, gallop, clicks GI/Abdominal exam: Present: soft, normal bowel sounds. Absent: distended, tenderness, guarding, rebound, rigid Extremities exam: Present: normal inspection, full ROM, normal capillary refill. Absent: tenderness, pedal edema, joint swelling, calf tenderness Back exam: Present: normal inspection Neurological exam: Present: alert, oriented X3, CN II-XII intact Psychiatric exam: Present: normal affect, normal mood Skin exam: Present: warm, dry, intact, normal color. Absent: rash Course Vital Signs 06/08/23 06/08/23 16:15 18:26 Temperature 98.0 F 98.7 F Pulse Rate 82 80 Respiratory 18 18 Rate Blood Pressure 133/84 118/74 O2 Sat by Pulse 100 99 Oximetry - Reevaluation(s) Reevaluation #1: Medical records reviewed Reevaluation #2: Patient's symptoms improved Reevaluation #3: Patient informed of results and questions answered Reevaluation #4: Was pt. sent in by a medical professional or institution (, PA, DIE CAST SUPERVISOR, urgent care, hospital, or correction...) When possible be specific @ -no Did you speak to anyone other than the patient for history (EMS, parent, family, police, friend...)? What history was obtained from this source @ -no Did you review nursing and triage notes (agree or disagree)? Why? @ -agree Are old charts reviewed (outside hosp., previous admission, EMS record, old EKG, old radiological studies, urgent care reports/EKG's, correction records)? Report findings @ -yes Differential Diagnosis (chest pain, altered mental status, abdominal pain women, abdominal pain men, vaginal bleeding, weakness, fever, dyspnea, syncope, headache, dizziness, GI bleed, back pain, seizure, CVA, palpatations, mental health, musculoskeletal)? @ -prior EKG interpreted by me (3pts min.). @ -no X-rays interpreted by me (1pt min.). @ -yes negative for acute disease CT interpreted by me (1pt min.). @ -no U/S interpreted by me (1pt. min.). @ -no What testing was considered but not performed or refused? (CT, X-rays, U/S, labs)? Why? @ -none What meds were considered but not given or refused? Why? @ -none Did you discuss the management of the patient with other professionals (professionals i.e. , PA, DIE CAST SUPERVISOR, lab, RT, psych nurse, social services manager, appeals referee, teacher, information management officer, case worker)? Give summary @ -no Was smoking cessation discussed for >3mins.? @ -no Was critical care preformed (if so, how long)? @ -no Were there social determinants of health that impacted care today? How? (Homelessness, low income, unemployed, alcoholism, drug addiction, transportation, low edu. Level, literacy, decrease access to med. care, longterm, rehab)? @ -none Was there de-escalation of care discussed even if they declined (Discuss DNR or withdrawal of care, Hospice)? DNR status @ -no What co-morbidities impacted this encounter? (DM, HTN, Smoking, COPD, CAD, Cancer, CVA, ARF, Chemo, Hep., AIDS, mental health diagnosis, sleep apnea, morbid obesity)? @ -none Was patient admitted / discharged? Hospital course, mention meds given and route, prescriptions, significant lab abnormalities, going to OR and other pertinent info. @ - 38 female who presents to the emergency department today for evaluation of pain in chronic pain and back pain. Patient has adequate pain control currently and can be discharged home Discharge Undiagnosed new problem with uncertain prognosis? @ -no Drug Therapy requiring intensive monitoring for toxicity (Heparin, Nitro, Insulin, Cardizem)? @ -no Were any procedures done? @ -no Diagnosis/symptom? @ -Chronic pain Acute, or Chronic, or Acute on Chronic? @ -Acute Uncomplicated (without systemic symptoms) or Complicated (systemic symptoms)? @ -Complicated Side effects of treatment? @ -no Exacerbation, Progression, or Severe Exacerbation? @ -exacerbation Poses a threat to life or bodily function? How? (Chest pain, [place], [place], pneumonia, PE, COPD, DKA, ARF, appy, cholecystitis, CVA, Diverticulitis, Homicidal, Suicidal, threat to staff... and all critical care pts) @ -no Reevaluation #5: Differential Back Pain: Strain, zoster, cauda equina syndrome, epidural abscess, vertebral osteomyelitis, discitis, fracture, subluxation, disc herniation, DJD, spinal stenosis, dissection, AAA, pancreatitis, peptic ulcer disease, pyelonephritis, kidney stone, this is not meant to be an all-inclusive list. Medical Decision Making - Medical Decision Making 38 female who presents to the emergency department today for evaluation of pain in chronic pain and back pain. Patient has adequate pain control currently and can be discharged home - Radiology Data Radiology results: report reviewed (History LS-spine negative for acute disease), image reviewed Disposition Clinical Impression: Chronic back pain, Mechanical back pain Disposition: HOME SELF-CARE Condition: Good Instructions (If sedation given, give patient instructions): Acute Low Back Pain (ED) Is patient prescribed a controlled substance at d/c from ED?: No Referrals: Alfred Varela [Primary Care Provider] - 1-2 days Time of Disposition: 06:00
[2023-06-08] MEDS: HYDROmorphone 1 MG/ML 1 ML SYRINGE IM STA (17:26)
--- NOTE | 2023-06-08 17:36 | XR ---
EXAMINATION TYPE: XR lumbar spine 2 or 3V DATE OF EXAM: 06/08/2023 COMPARISON: 10/26/2021 HISTORY: Low back pain TECHNIQUE: 3 view lumbar spine FINDINGS: There are 5 lumbar-type vertebral bodies. Pedicles are intact. Some mild scoliosis is prese nt with the convexity to the left. Vertebral body heights are preserved. Some posterior disc space na rrowing at L5-S1 is not excluded. Some disc space narrowing is likely present L2-3. IMPRESSION: 1. Mild progressive degenerative disc changes L2-3 L5-S1. Follow-up MRI can be performed as clinical ly indicated.
[2023-06-08 18:29] VITALS: BP 118/74; PULSE 80; TEMP 98.7
== END 2023-06-08 18:33 | disposition home or self-care (01) ==
LOC: EC 16:14
DX: G89.29 Other chronic pain (principal); M54.50 Low back pain, unspecified; E11.9 Type 2 diabetes mellitus without complications; J45.909 Unspecified asthma, uncomplicated; E03.9 Hypothyroidism, unspecified; F31.9 Bipolar disorder, unspecified; F41.9 Anxiety disorder, unspecified; Z79.84 Long term (current) use of oral hypoglycemic drugs; Z79.890 Hormone replacement therapy; Z79.899 Other long term (current) drug therapy; Z88.5 Allergy status to narcotic agent; Z88.8 Allergy status to other drugs, medicaments and biological substances; Z93.3 Colostomy status; Z90.49 Acquired absence of other specified parts of digestive tract
CPT/HCPCS: 72100; 99284; 96372; J1170

== ENCOUNTER → 2023-06-12 | Outpatient (CLI) | payer BC ==
--- NOTE | 2023-06-12 10:49 | USB ---
Reason for Exam: Additional evaluation requested from abnormal screening. Patient History: Menarche at age 10. Patient has no children. 2010, Lumpectomy on the Right side. Risk Values: Kaitlyn 5 year model risk: 0.6%. NCI Lifetime model risk: 11.1%. Prior Study Comparison: 06/04/2023 Bilateral MG 3D screening mammo w/cad, [facility]. Findings: The upper outer quadrant of the right breast, the axilla of the right breast and the retroareolar of the right breast were scanned. Elongated hypoechoic structure measuring 4 x 3 mm too small to appropriately characterize may reflect a small complex cyst. Six-month follow-up ultrasound and mammography is advised.. Overall Assessment: Probably benign, BI-RAD 3 Management: Diagnostic Mammogram of the right breast in 6 months. A clinical breast exam by your physician is recommended on an annual basis and results should be correlated with mammographic findings. This exam should not preclude additional follow-up of suspicious palpable abnormalities. Results were given to the patient verbally at the time of exam. Electronically signed and approved by: Edgardo Mohan M.D. Radiologis
--- NOTE | 2023-06-12 13:43 | MM ---
Reason for Exam: Additional evaluation requested from abnormal screening. Last screening mammogram was performed less than 1 month ago. Patient History: Menarche at age 10. Patient has no children. 2009, Lumpectomy on the Right side. Last menstrual period: 03/07/2022 Risk Values: Kaitlyn 5 year model risk: 0.6%. NCI Lifetime model risk: 11.1%. Prior Study Comparison: 06/04/2023 Bilateral MG 3D screening mammo w/cad, [facility]. Tissue Density: Right: The breast tissue is heterogeneously dense. This may lower the sensitivity of mammography. Findings: Analyzed By CAD. Asymmetric density far posterior upper outer quadrant right breast. Ultrasound is recommended. Overall Assessment: Incomplete: need additional imaging evaluation, BI-RAD 0 Management: Diagnostic Breast Ultrasound of the right breast. . Results were given to the patient verbally at the time of exam. Patient should continue monthly self-breast exams. A clinical breast exam by your physician is recommended on an annual basis. This exam should not preclude additional follow-up of suspicious palpable abnormalities. Note on Kaitlyn scores and lifetime risk: 1. A Kaitlyn score greater than 3% is considered moderate risk. If this is the case, consider specialist referral to assess eligibility for a risk reducing agent. 2. If overall lifetime risk for the development of breast cancer is 20% or higher, the patient may qualify for future screening with alternating mammogram and breast MRI. Electronically signed and approved by: Shen Saleem M.D. Radiologis
== END | disposition home or self-care (01) ==
LOC: RADMAMWWP 09:56
PROVIDERS: ATTEND Family Medicine
DX: R92.331 Mammographic heterogeneous density, right breast (principal)
CPT/HCPCS: 77061; 77065

== ENCOUNTER → 2023-07-02 | Outpatient (CLI) | payer BC ==
[2023-07-02 10:45] VITALS: BP 135/82; PULSE 92; TEMP 98.3; BMI 34.6
--- NOTE | 2023-07-02 14:57 | P.HPBAR ---
Bariatric H&P - History & Physicial H&P Date: 07/02/23 History & Physicial: Visit/CC: F/U Patient initial contact: Initial weight: 312 kg Initial weight in pounds: 687.84 Height: 5 ft 7 in Initial BMI: 107.7 Last weight: Current weight: 100.244 kg Current weight in pounds: 221.00 Current BMI: 34.6 [place] body weight (based on NIH guidelines): 61.235 kg Excess body weight loss: 84.4% The patient is a 38 year-old F who presents for Bariatric Assessment. Patient presents today for bariatric follow-up. She is lost another 12 pounds her last visit. She has been doing otherwise well. She has had some minimal gerd. Past Medical History Past Medical History: Asthma, Diabetes Mellitus, Fibromyalgia, GERD/Reflux, Sleep Apnea/CPAP/BIPAP, Thyroid Disorder Additional Past Medical History / Comment(s): Migraines with aura, DDD, NIDDM type II, diverticulitis with perforation/colostomy since reversed, IBS, chronic seroma, CARLITOS/no device, polycystic ovaries, hypothyroid, season allergies History of Any Multi-Drug Resistant Organisms: None Reported Past Surgical History: Bariatric Surgery, Cholecystectomy, Uterine Ablation Additional Past Surgical History / Comment(s): 06/06/21 sleeve gastrectomy, rt Breast biopsy. bowel resection with colostomy/ later colostomy reversal, abdominal surgery to remove scar tissue, EGD, colonoscopy, back pain procedures uterine ablation, lysis of adhesions 07/11/22 Past Anesthesia/Blood Transfusion Reactions: No Reported Reaction Additional Past Anesthesia/Blood Transfusion Reaction / Comm: no hx blood transfusion, received monoclonal antibodies in Feb 2021 Past Psychological History: Anxiety, Bipolar, Depression Additional Psychological History / Comment(s): Pt has eating disorder-binge eater, borderline personality disorder. Pt resides with her boyfriend and his mother. She is independent. Smoking Status: Never smoker Past Alcohol Use History: Occasional Past Drug Use History: None Reported - Past Family History Mother History Unknown: Yes Family Medical History: COPD Additional Family Medical History / Comment(s): Mother from COPD at the age of 55 yrs. Brother(s) Family Medical History: Diabetes Mellitus Father Family Medical History: Unable to Obtain Surgical - Exam Vital Signs Temp Pulse BP 98.3 F 92 135/82 07/02/23 10:26 07/02/23 10:26 07/02/23 10:26 - General well developed, well nourished, no distress - Eyes PERRL - ENT normal pinna - Neck no masses - Respiratory normal expansion - Cardiovascular Rhythm: regular - Abdomen Abdomen: soft, non tender Bariatric Assessment & Plan Plan: Status post sleeve gastric. Patient has had excellent weight loss. Her GERD is minimal and will be observed. Bariatric Checklist Checklist: Plan: Checklist: EGD: 1. Hiatal hernia: 2. H. Pylori: HgbA1c: Vitamin D: Smoking: Never smoker Primary care physician referral: Dr. Alaniz Psychiatry clearance: Cardiology clearance: Sleep study: Diet journal: VTE risk score: VTE risk level: Rehab needs at discharge:
== END ==
LOC: BARWHC3 10:11
PROVIDERS: ATTEND Surgery
DX: K21.9 Gastro-esophageal reflux disease without esophagitis (principal); R63.4 Abnormal weight loss; J45.909 Unspecified asthma, uncomplicated; E11.9 Type 2 diabetes mellitus without complications; E03.9 Hypothyroidism, unspecified; G47.33 Obstructive sleep apnea (adult) (pediatric); F41.9 Anxiety disorder, unspecified; F31.9 Bipolar disorder, unspecified; G43.109 Migraine with aura, not intractable, without status migrainosus; K58.9 Irritable bowel syndrome, unspecified; M51.9 Unspecified thoracic, thoracolumbar and lumbosacral intervertebral disc disorder; T14.8XXA Other injury of unspecified body region, initial encounter; Z98.84 Bariatric surgery status; Z87.19 Personal history of other diseases of the digestive system; Z87.42 Personal history of other diseases of the female genital tract; Z87.09 Personal history of other diseases of the respiratory system; Z68.34 Body mass index [BMI] 34.0-34.9, adult; Z88.5 Allergy status to narcotic agent; Z88.8 Allergy status to other drugs, medicaments and biological substances; Z79.84 Long term (current) use of oral hypoglycemic drugs; Z79.890 Hormone replacement therapy; Z79.899 Other long term (current) drug therapy
CPT/HCPCS: 99211

== ENCOUNTER 2023-07-15 19:07 | Emergency (ER) | payer BC ==
--- NOTE | 2023-07-15 19:40 | ED ---
Abdominal Pain HPI - General Source: patient, RN notes reviewed Mode of arrival: ambulatory Limitations: no limitations <Francine Ray - Last Filed: 07/15/23 19:39> <Dirk Martin - Last Filed: 07/15/23 23:07> - General Stated Complaint: abd pain Time Seen by Provider: 07/15/23 19:39 - History of Present Illness Initial Comments: Patient is a 38-year-old female presented to ER with chief complaint of bilateral lower abdominal pain. She states this started earlier today and has increased in intensity. She does have a history of ovarian cysts. States last week she was passing large blood clots vaginally. Denies any fevers, dysuria. She does report that the pain does make her feel nauseous. (Francine Ray) Dictation was produced using [employer] dictation software. please excuse any grammatical, word or spelling errors. Chief Complaint: 38-year-old female well-known to our emergency department for pelvic pain presents to the ER again for pelvic pain History of Present Illness: Patient is a 38-year-old female she has history of chronic pain syndrome. Chronic pain usually affects her pelvis and abdomen. Patient also has history of fibromyalgia. States that for the last 2 to 3 days she has been having intermittent episodes of what she describes as ovarian pain. She also has been complaining of cramping vaginal bleeding. She has a history of bilateral tubal ligation. Denies any vomiting. She does report nausea. No diarrhea. The ROS documented in this emergency department record has been reviewed and confirmed by me. Those systems with pertinent positive or negative responses have been documented in the HPI. All other systems are other negative and/or noncontributory. (Dirk Martin) - Related Data Home Medications Medication Instructions Recorded Confirmed Levothyroxine Sodium [Synthroid] 50 mcg PO DAILY 05/05/14 07/02/23 Cetirizine HCl [Zyrtec] 10 mg PO DAILY 08/30/19 07/02/23 Pregabalin [Lyrica] 225 mg PO BID 08/30/19 07/02/23 Erenumab-Aooe [Aimovig 140 mg SQ Q30D 09/22/20 07/02/23 Autoinjector] HYDROcodone/APAP 7.5-325MG [[place] 1 tab PO BID PRN 08/23/21 07/02/23 7.5-325] Atogepant [Qulipta] 60 mg PO HS 11/28/21 07/02/23 Ferrous Sulfate [Iron (65 MG 325 mg PO DAILY 12/12/21 07/02/23 Elemental)] Nystatin 100,000 Unit/gm Powd 1 applic TOPICAL BID PRN 12/12/21 07/02/23 [Mycostatin Powder] Cyclobenzaprine [Flexeril] 10 mg PO DAILY PRN 01/06/22 07/02/23 Ergocalciferol (Vitamin D2) 1,250 mcg PO GARCIA 05/19/22 07/02/23 [Drisdol (50,000 Iu)] Fluconazole 200 mg PO GARCIA 05/19/22 07/02/23 Acetaminophen Tab [Tylenol] 650 mg PO Q6H PRN 10/02/22 07/02/23 Lasmiditan Succinate [Reyvow] 50 mg PO DAILY PRN 10/02/22 07/02/23 Metoclopramide [Reglan] 10 mg PO DAILY PRN 10/02/22 07/02/23 Semaglutide [Wegovy] 2.4 mg SQ GARCIA 10/02/22 07/02/23 Ketorolac [Toradol] 10 mg PO Q6HR PRN 10/30/22 07/02/23 Nystatin 1 applic TOPICAL BID PRN 11/19/22 07/02/23 buPROPion XL [Wellbutrin XL] 150 mg PO DAILY 01/08/23 07/02/23 Vit No.179/Iron/Folic 1 each PO DAILY 07/02/23 07/02/23 [ Tablet] Previous Rx's Medication Instructions Recorded Ibuprofen [Motrin] 800 mg PO Q8HR PRN #30 tab 10/14/22 Ondansetron Odt [Zofran Odt] 4 mg PO Q8HR PRN #20 tab 12/07/22 Allergies Allergy/AdvReac Type Severity Reaction Status Date / Time codeine AdvReac Hallucinati Verified 07/15/23 20:04 ons tramadol AdvReac Hallucinati Verified 07/15/23 20:04 ons valacyclovir HCl AdvReac BLURRED Verified 07/15/23 20:04 [From Valtrex] VISION Review of Systems ROS Other: All systems not noted in ROS Statement are negative. <Francine Ray - Last Filed: 07/15/23 19:39> ROS Other: All systems not noted in ROS Statement are negative. <Dirk Martin - Last Filed: 07/15/23 23:07> ROS Statement: Those systems with pertinent positive or pertinent negative responses have been documented in the HPI. Past Medical History Past Medical History: Asthma, Diabetes Mellitus, Fibromyalgia, GERD/Reflux, Sleep Apnea/CPAP/BIPAP, Thyroid Disorder Additional Past Medical History / Comment(s): Migraines with aura, DDD, NIDDM type II, diverticulitis with perforation/colostomy since reversed, IBS, chronic seroma, CARLITOS/no device, polycystic ovaries, hypothyroid, season allergies History of Any Multi-Drug Resistant Organisms: None Reported Past Surgical History: Bariatric Surgery, Cholecystectomy, Uterine Ablation Additional Past Surgical History / Comment(s): 06/06/21 sleeve gastrectomy, rt Breast biopsy. bowel resection with colostomy/ later colostomy reversal, abdominal surgery to remove scar tissue, EGD, colonoscopy, back pain procedures uterine ablation, lysis of adhesions 07/11/22 Past Anesthesia/Blood Transfusion Reactions: No Reported Reaction Additional Past Anesthesia/Blood Transfusion Reaction / Comment(s): no hx blood transfusion, received monoclonal antibodies in Feb 2021 Past Psychological History: Anxiety, Bipolar, Depression Smoking Status: Never smoker Past Alcohol Use History: Occasional Past Drug Use History: None Reported - Past Family History Mother History Unknown: Yes Family Medical History: COPD Additional Family Medical History / Comment(s): Mother from COPD at the age of 55 yrs. Brother(s) Family Medical History: Diabetes Mellitus Father Family Medical History: Unable to Obtain <Francine Ray - Last Filed: 07/15/23 19:39> General Exam <Francine Ray - Last Filed: 07/15/23 19:39> <Dirk Martin - Last Filed: 07/15/23 23:07> - General Exam Comments Initial Comments: Visual Physical Exam Vital signs reviewed General: Well-appearing, nontoxic, no acute distress. Head: Normocephalic, atraumatic Eyes: PERRLA, EOMI ENT: Airway patent Chest: Nonlabored breathing Skin: No visual rash, normal skin tone Neuro: Alert and oriented 3 Musculoskeletal: No gross abnormalities (Francine Ray) General: Well-appearing, nontoxic, no acute distress. Head: Normocephalic, atraumatic Eyes: PERRLA, EOMI ENT: Airway patent Chest: Nonlabored breathing Abdomen: Soft, minimal tenderness to the suprapubic area Skin: No visual rash, normal skin tone Neuro: Alert and oriented 3 Musculoskeletal: No gross abnormalities (Dirk Martin) Course Vital Signs 07/15/23 20:01 Temperature 98.6 F Pulse Rate 80 Respiratory 16 Rate Blood Pressure 120/80 O2 Sat by Pulse 100 Oximetry Medical Decision Making <Francine Ray - Last Filed: 07/15/23 19:39> - Lab Data Result diagrams: 07/15/23 20:10 07/15/23 20:10 <Dirk Martin - Last Filed: 07/15/23 23:07> - Medical Decision Making I performed the quick note portion of this chart. Electronically signed by Francine Ray PA-C (Francine Ray) Was pt. sent in by a medical professional or institution ([facility], [facility], urgent care, hospital, or care home...) When possible be specific @ -No Did you speak to anyone other than the patient for history (EMS, parent, family, police, friend...)? What history was obtained from this source @ -No Did you review nursing and triage notes (agree or disagree)? Why? @ -I reviewed and agree with nursing and triage notes Were old charts reviewed (outside hosp., previous admission, EMS record, old EK G, old radiological studies, urgent care reports/EKG's, care home records)? Report findings @ -No old charts were reviewed Differential Diagnosis (chest pain, altered mental status, abdominal pain women, abdominal pain men, vaginal bleeding, musculoskeletal, weakness, fever, dyspnea, syncope, headache, dizziness, GI bleed, back pain, seizure, CVA, palpatations, mental health)? @ -Differential Abdominal Pain Women: Appendicitis, Cholecystitis, diverticulosis, ischemic bowel, pancreatitis, hepatitis, UTI, gastroenteritis, AAA, incarcerated hernia, bowel obstruction, constipation, inflammatory bowel, hepatitis, peptic ulcer disease, splenic infarction, perforated viscus, vulvitis, ovarian torsion, PID, kidney stone, placenta abruption, this is not meant to be an all-inclusive list EKG interpreted by me (3pts min.). @ -None done X-rays interpreted by me (1pt min.). @ -None done CT interpreted by me (1pt min.). @ -None done U/S interpreted by me (1pt. min.). @ -Good blood flow to bilateral ovaries on pelvic ultrasound What testing was considered but not performed or refused? (CT, X-rays, U/S, labs)? Why? @ -None What meds were considered but not given or refused? Why? @ -None Did you discuss the management of the patient with other professionals (professionals i.e. , PA, COLLAR TACKER, lab, RT, psych nurse, social media community manager, manufacturing area manager, teacher, staff command and control officer, wrapper caser)? Give summary @ -No Was smoking cessation discussed for >3mins.? @ -No Was critical care preformed (if so, how long)? @ -No Were there social determinants of health that impacted care today? How? (Homelessness, low income, unemployed, alcoholism, drug addiction, transportation, low edu. Level, literacy, decrease access to med. care, halfway, rehab)? @ -No Was there de-escalation of care discussed even if they declined (Discuss DNR or withdrawal of care, Hospice)? DNR status @ -No What co-morbidities impacted this encounter? (DM, HTN, Smoking, COPD, CAD, Cancer, CVA, ARF, Chemo, Hep., AIDS, mental health diagnosis, sleep apnea, morbid obesity)? @ -Chronic pain Was patient admitted / discharged? Hospital course, mention meds given and route, prescriptions, significant lab abnormalities, going to OR and other pertinent info. @ -2-year-old female presents to the emergency department for acute on chronic pelvic pain. Vital signs stable. Patient well-appearing at the bedside. Physical examination is benign. She has a nonsurgical abdomen. Patient no acute distress. Undiagnosed new problem with uncertain prognosis? @ -No Drug Therapy requiring intensive monitoring for toxicity (Heparin, Nitro, Insulin, Cardizem)? @ -No Were any procedures done? @ -No Diagnosis/symptom? Acute, or Chronic, or Acute on Chronic? Uncomplicated (without systemic symptoms) or Complicated (systemic symptoms)? @ -Acute on chronic pelvic pain Side effects of treatment? @ -No Exacerbation, Progression, or Severe Exacerbation? @ -No Poses a threat to life or bodily function? How? (Chest pain, USA, ID, pneumonia, PE, COPD, DKA, ARF, appy, cholecystitis, CVA, Diverticulitis, Homicidal, Suicidal, threat to staff... and all critical care pts) @ -No (Dirk Martin) - Lab Data Lab Results 07/15/23 07/15/23 07/15/23 Range/Units 20:10 20:10 20:21 WBC 8.2 (3.8-10.6) k/uL RBC 4.73 (3.80-5.40) m/uL Hgb 14.2 (11.4-16.0) gm/dL Hct 43.5 (34.0-46.0) % MCV 92.0 (80.0-100.0) fL MCH 30.1 (25.0-35.0) pg MCHC 32.8 (31.0-37.0) g/dL RDW 12.7 (11.5-15.5) % Plt Count 261 (150-450) k/uL MPV 8.0 Sodium 141 (137-145) mmol/L Potassium 4.0 (3.5-5.1) mmol/L Chloride 107 (98-107) mmol/L Carbon Dioxide 31 H (22-30) mmol/L Anion Gap 3 mmol/L BUN 20 H (7-17) mg/dL Creatinine 0.73 (0.52-1.04) mg/dL Est GFR (CKD-EPI)AfAm >90 (>60 ml/min/1.73 sqM) Est GFR (CKD-EPI)NonAf >90 (>60 ml/min/1.73 sqM) Glucose 88 (74-99) mg/dL Calcium 9.7 (8.4-10.2) mg/dL Total Bilirubin 0.5 (0.2-1.3) mg/dL AST 47 H (14-36) U/L ALT 44 H (4-34) U/L Alkaline Phosphatase 106 (38-126) U/L Total Protein 7.2 (6.3-8.2) g/dL Albumin 4.4 (3.5-5.0) g/dL Urine Color Yellow Urine Appearance Cloudy H (Clear) Urine pH 5.5 (5.0-8.0) Ur Specific [place] 1.027 (1.001-1.035) Urine Protein Negative (Negative) Urine Glucose (UA) Negative (Negative) Urine Ketones Negative (Negative) Urine Blood Small H (Negative) Urine Nitrite Negative (Negative) Urine Bilirubin Negative (Negative) Urine Urobilinogen 2.0 (<2.0) mg/dL Ur Leukocyte Esterase Negative (Negative) Urine RBC 1 (0-5) /hpf Urine WBC 2 (0-5) /hpf Ur Squamous Epith Cells 2 (0-4) /hpf Urine Bacteria Rare H (None) /hpf Urine Mucus Moderate H (None) /hpf Urine HCG, Qual (Not Detectd) 07/15/23 Range/Units 20:21 WBC (3.8-10.6) k/uL RBC (3.80-5.40) m/uL Hgb (11.4-16.0) gm/dL Hct (34.0-46.0) % MCV (80.0-100.0) fL MCH (25.0-35.0) pg MCHC (31.0-37.0) g/dL RDW (11.5-15.5) % Plt Count (150-450) k/uL MPV Sodium (137-145) mmol/L Potassium (3.5-5.1) mmol/L Chloride (98-107) mmol/L Carbon Dioxide (22-30) mmol/L Anion Gap mmol/L BUN (7-17) mg/dL Creatinine (0.52-1.04) mg/dL Est GFR (CKD-EPI)AfAm (>60 ml/min/1.73 sqM) Est GFR (CKD-EPI)NonAf (>60 ml/min/1.73 sqM) Glucose (74-99) mg/dL Calcium (8.4-10.2) mg/dL Total Bilirubin (0.2-1.3) mg/dL AST (14-36) U/L ALT (4-34) U/L Alkaline Phosphatase (38-126) U/L Total Protein (6.3-8.2) g/dL Albumin (3.5-5.0) g/dL Urine Color Urine Appearance (Clear) Urine pH (5.0-8.0) Ur Specific [place] (1.001-1.035) Urine Protein (Negative) Urine Glucose (UA) (Negative) Urine Ketones (Negative) Urine Blood (Negative) Urine Nitrite (Negative) Urine Bilirubin (Negative) Urine Urobilinogen (<2.0) mg/dL Ur Leukocyte Esterase (Negative) Urine RBC (0-5) /hpf Urine WBC (0-5) /hpf Ur Squamous Epith Cells (0-4) /hpf Urine Bacteria (None) /hpf Urine Mucus (None) /hpf Urine HCG, Qual Not Detected (Not Detectd) Disposition <Francine Ray - Last Filed: 07/15/23 19:39> Is patient prescribed a controlled substance at d/c from ED?: No Time of Disposition: 23:07 <Dirk Martin - Last Filed: 07/15/23 23:07> Clinical Impression: Pelvic pain Disposition: HOME SELF-CARE Condition: Good Instructions (If sedation given, give patient instructions): Pelvic Pain in Women (ED) Additional Instructions: please follow up with your pain specialist Referrals: Alfred Varela [Primary Care Provider] - 1-2 days
[2023-07-15 20:28] VITALS: BP 120/80; PULSE 80; RESP 16; TEMP 98.6
[2023-07-15 20:53] LABS: HCT 43.5 % (34.0-46.0); HGB 14.2 gm/dL (11.4-16.0); MCH 30.1 pg (25.0-35.0); MCHC 32.8 g/dL (31.0-37.0); Platelet Count 261 k/uL (150-450); RBC 4.73 m/uL (3.80-5.40); RDW 12.7 % (11.5-15.5); WBC 8.2 k/uL (3.8-10.6)
[2023-07-15 20:55] LABS: Appearance,Urine Cloudy (Clear); Bacteria,Urine Rare /hpf; Bilirubin,Urine Negative (Negative); Blood,Urine Small (Negative); Color,Urine Yellow; Glucose,Urine (UA) Negative (Negative); Ketones,Urine Negative (Negative); Leukocyte Esterase,Urine Negative (Negative); Mucus,Urine Moderate /hpf; Nitrite,Urine Negative (Negative); PH, Urine 5.5 (5.0-8.0); Protein,Urine Negative (Negative); RBC,Urine 1 /hpf (0-5); Specific Gravity,Urine 1.027 (1.001-1.035); Squamous Epithelial Cell,Urine 2 /hpf (0-4); WBC,Urine 2 /hpf (0-5)
[2023-07-15 21:10] LABS: ALT 44 U/L (4-34); AST 47 U/L (14-36); African American GFR (CKD) >90 (>60 ml/min/1.73 sqM); Albumin 4.4 g/dL (3.5-5.0); Alkaline Phosphatase 106 U/L (38-126); Anion Gap 3 mmol/L; Blood Urea Nitrogen 20 mg/dL (7-17); Calcium 9.7 mg/dL (8.4-10.2); Carbon Dioxide 31 mmol/L (22-30); Chloride 107 mmol/L (98-107); Glucose 88 mg/dL (74-99); Non-African American GFR(CKD) >90 (>60 ml/min/1.73 sqM); Sodium 141 mmol/L (137-145); Total Bilirubin 0.5 mg/dL (0.2-1.3); Total Protein 7.2 g/dL (6.3-8.2)
[2023-07-15] MEDS: ACETAMINOPHEN TAB 500 MG TAB PO STA (22:35)
--- NOTE | 2023-07-15 22:46 | US ---
EXAM: US Pelvis Transvaginal CLINICAL HISTORY: ITS.REASON US Reason: Bilateral inguinal abdominal pain TECHNIQUE: Real-time transvaginal pelvic ultrasound with image documentation. Transvaginal imaging was used for better evaluation of the endometrium and adnexa. COMPARISON: No relevant prior studies available. FINDINGS: Uterus/cervix: Endometrial stripe measures 0.6 cm. Uterus measures 6. 0 x 2.5 x 3.0 cm. No myometrial mass. Right ovary: Right ovary measures 1.7 x 2.0 x 1.6 cm. Normal blood flow. Left ovary: Left ovary measures 1.6 x 3.0 x 1.6 cm. Normal blood flow. Free fluid: No free fluid. Bladder: Empty bladder which cannot be evaluated with this probe. Tubes, lines and devices: Intrauterine device in position. IMPRESSION: Unremarkable pelvic ultrasound with intrauterine device in position.
[2023-07-15] MEDS: HYDROmorphone 0.5 MG/0.5 ML SYRINGE IVP STA (23:21)
== END 2023-07-15 23:52 | disposition home or self-care (01) ==
LOC: EC 19:07
DX: R10.2 Pelvic and perineal pain (principal); J45.909 Unspecified asthma, uncomplicated; E11.9 Type 2 diabetes mellitus without complications; G47.30 Sleep apnea, unspecified; E07.9 Disorder of thyroid, unspecified; F41.9 Anxiety disorder, unspecified; F31.9 Bipolar disorder, unspecified; Z79.890 Hormone replacement therapy; Z79.84 Long term (current) use of oral hypoglycemic drugs; Z79.899 Other long term (current) drug therapy; Z88.5 Allergy status to narcotic agent; Z88.8 Allergy status to other drugs, medicaments and biological substances
CPT/HCPCS: 36415; 80053; 85027; 81001; 81025; 93975; 76830; 99284; 96374; J1170

== ENCOUNTER → 2023-07-25 | Outpatient (CLI) | payer BC ==
--- NOTE | 2023-07-26 08:10 | US ---
EXAMINATION TYPE: US axilla RT DATE OF EXAM: 07/25/2023 COMPARISON: No relevant prior CLINICAL INDICATION: Female, 38 years old with history of M79.89 NODULE OF SOFT TISSUE; New lump in r ight axilla x 1 month; not as prominent as original finding TECHNIQUE: Scanned lateral axilla at the patient's palpable FINDINGS: [facility] notes: No abnormalities seen at patients AOC IMPRESSION: No discrete sonographic abnormality identified at the patient's palpable site within the right axilla. Clinical follow-up recommended. If any enlarging abnormality, the patient can be rescan gerardo.
== END | disposition home or self-care (01) ==
LOC: RADUSWWP 08:39
PROVIDERS: ATTEND Family Medicine
DX: M79.89 Other specified soft tissue disorders (principal)

== ENCOUNTER → 2023-08-06 | Outpatient (CLI) | payer BC ==
--- NOTE | 2023-08-06 12:14 | P.HPBAR ---
Bariatric H&P - History & Physicial H&P Date: 08/06/23 History & Physicial: Visit/CC: Patient initial contact: Initial weight: 312 kg Initial weight in pounds: Height: 5 ft 7 in Initial BMI: Last weight: Current weight: 98.883 kg Current weight in pounds: Current BMI: [place] body weight (based on NIH guidelines): Excess body weight loss: The patient is a 38 year-old F who presents for Bariatric Assessment. Patient safe for [facility] follow-up. Patient has had minimal GERD. She is an excellent weight loss. She has complaints of skin irritation from her panniculus. Past Medical History Past Medical History: Asthma, Diabetes Mellitus, Fibromyalgia, GERD/Reflux, Sleep Apnea/CPAP/BIPAP, Thyroid Disorder Additional Past Medical History / Comment(s): Migraines with aura, DDD, NIDDM type II, diverticulitis with perforation/colostomy since reversed, IBS, chronic seroma, CARLITOS/no device, polycystic ovaries, hypothyroid, season allergies History of Any Multi-Drug Resistant Organisms: None Reported Past Surgical History: Bariatric Surgery, Cholecystectomy, Uterine Ablation Additional Past Surgical History / Comment(s): 06/06/21 sleeve gastrectomy, rt Breast biopsy. bowel resection with colostomy/ later colostomy reversal, abdominal surgery to remove scar tissue, EGD, colonoscopy, back pain procedures uterine ablation, lysis of adhesions 07/11/22 Past Anesthesia/Blood Transfusion Reactions: No Reported Reaction Additional Past Anesthesia/Blood Transfusion Reaction / Comm: no hx blood transfusion, received monoclonal antibodies in Feb 2021 Past Psychological History: Anxiety, Bipolar, Depression Smoking Status: Never smoker Past Alcohol Use History: Occasional Past Drug Use History: None Reported - Past Family History Mother History Unknown: Yes Family Medical History: COPD Additional Family Medical History / Comment(s): Mother from COPD at the age of 55 yrs. Brother(s) Family Medical History: Diabetes Mellitus Father Family Medical History: Unable to Obtain Surgical - Exam - General well developed, well nourished, no distress - Neck no masses, no bruits - Abdomen Abdomen: soft, non tender Bariatric Assessment & Plan Plan: Resolving morbid obesity. Patient has a large pedicles. We'll attempt obtain insurance authorization for panniculectomy. She's had chronic issues with skin irritation. She'll follow-up in 4 weeks. Bariatric Checklist Checklist: Plan: Checklist: EGD: 1. Hiatal hernia: 2. H. Pylori: HgbA1c: Vitamin D: Smoking: Never smoker Primary care physician referral: Dr. Alaniz Psychiatry clearance: Cardiology clearance: Sleep study: Diet journal: VTE risk score: VTE risk level: Rehab needs at discharge:
[2023-08-06 12:47] VITALS: BP 108/75; PULSE 76; RESP 13; TEMP 98; BMI 34.1
== END ==
LOC: BARWHC3 10:19
PROVIDERS: ATTEND Surgery
DX: E66.01 Morbid (severe) obesity due to excess calories (principal); B85.2 Pediculosis, unspecified; Z98.890 Other specified postprocedural states; Z88.5 Allergy status to narcotic agent; Z88.1 Allergy status to other antibiotic agents
CPT/HCPCS: 99211

== ENCOUNTER 2023-08-23 18:44 | Emergency (ER) | payer BC ==
[2023-08-23 19:25] VITALS: RESP 18
[2023-08-23] MEDS: ORPHENADRINE 30 MG/ML 2 ML VIAL IM STA (19:41)
[2023-08-23] MEDS: KETOROLAC 15 MG/ML 1 ML VIAL IM STA (19:41)
[2023-08-23] MEDS: DEXAMETHASONE SOD PHOSPHATE 10 MG/ML 1 ML VIAL IM STA (19:41)
[2023-08-23] MEDS: LIDOCAINE 4% PATCH TOPICAL ONE (19:43)
[2023-08-23] MEDS: HYDROmorphone 1 MG/ML 1 ML SYRINGE IM STA (21:06)
--- NOTE | 2023-08-23 21:13 | ED ---
Back Pain HPI - General Chief Complaint: Back Pain/Injury Stated Complaint: Back pain Time Seen by Provider: 08/23/23 19:10 Source: patient Limitations: no limitations - History of Present Illness Initial Comments: 38-year-old female presenting with chief complaint of back pain. Patient has history of chronic lower back pain. States that today at work when she was bending to sit down she felt a pop in her lower back. Pain is stronger on the left than on the right. She does have pain that radiates down both legs. No loss of bowel or bladder control or saddle paresthesia. No fever, chills, nausea, vomiting. No injury or trauma. - Related Data Home Medications Medication Instructions Recorded Confirmed Levothyroxine Sodium [Synthroid] 50 mcg PO DAILY 05/05/14 08/06/23 Cetirizine HCl [Zyrtec] 10 mg PO DAILY 08/30/19 08/06/23 Pregabalin [Lyrica] 225 mg PO BID 08/30/19 08/06/23 Erenumab-Aooe [Aimovig 140 mg SQ Q30D 09/22/20 08/06/23 Autoinjector] HYDROcodone/APAP 7.5-325MG [Colby 1 tab PO BID PRN 08/23/21 08/06/23 7.5-325] Atogepant [Qulipta] 60 mg PO HS 11/28/21 08/06/23 Ferrous Sulfate [Iron (65 MG 325 mg PO DAILY 12/12/21 08/06/23 Elemental)] Nystatin 100,000 Unit/gm Powd 1 applic TOPICAL BID PRN 12/12/21 08/06/23 [Mycostatin Powder] Cyclobenzaprine [Flexeril] 10 mg PO DAILY PRN 01/06/22 08/06/23 Ergocalciferol (Vitamin D2) 1,250 mcg PO GARCIA 05/19/22 08/06/23 [Drisdol (50,000 Iu)] Fluconazole 200 mg PO GARCIA 05/19/22 08/06/23 Acetaminophen Tab [Tylenol] 650 mg PO Q6H PRN 10/02/22 08/06/23 Lasmiditan Succinate [Reyvow] 50 mg PO DAILY PRN 10/02/22 08/06/23 Metoclopramide [Reglan] 10 mg PO DAILY PRN 10/02/22 08/06/23 Semaglutide [Wegovy] 2.4 mg SQ GARCIA 10/02/22 08/06/23 Ketorolac [Toradol] 10 mg PO Q6HR PRN 10/30/22 08/06/23 Nystatin 1 applic TOPICAL BID PRN 11/19/22 08/06/23 buPROPion XL [Wellbutrin XL] 150 mg PO DAILY 01/08/23 08/06/23 Vit No.179/Iron/Folic 1 each PO DAILY 07/02/23 08/06/23 [ Tablet] Allergies Allergy/AdvReac Type Severity Reaction Status Date / Time codeine AdvReac Hallucinati Verified 08/23/23 19:01 ons tramadol AdvReac Hallucinati Verified 08/23/23 19:01 ons valacyclovir HCl AdvReac BLURRED Verified 08/23/23 19:01 [From Valtrex] VISION Review of Systems ROS Statement: Those systems with pertinent positive or pertinent negative responses have been documented in the HPI. ROS Other: All systems not noted in ROS Statement are negative. Past Medical History Past Medical History: Asthma, Diabetes Mellitus, Fibromyalgia, GERD/Reflux, Sl eep Apnea/CPAP/BIPAP, Thyroid Disorder Additional Past Medical History / Comment(s): Migraines with aura, DDD, NIDDM type II, diverticulitis with perforation/colostomy since reversed, IBS, chronic seroma, CARLITOS/no device, polycystic ovaries, hypothyroid, season allergies History of Any Multi-Drug Resistant Organisms: None Reported Past Surgical History: Bariatric Surgery, Cholecystectomy, Uterine Ablation Additional Past Surgical History / Comment(s): 06/06/21 sleeve gastrectomy, rt Breast biopsy. bowel resection with colostomy/ later colostomy reversal, abdominal surgery to remove scar tissue, EGD, colonoscopy, back pain procedures uterine ablation, lysis of adhesions 07/11/22 Past Anesthesia/Blood Transfusion Reactions: No Reported Reaction Additional Past Anesthesia/Blood Transfusion Reaction / Comment(s): no hx blood transfusion, received monoclonal antibodies in Feb 2021 Past Psychological History: Anxiety, Bipolar, Depression Smoking Status: Never smoker Past Alcohol Use History: Occasional Past Drug Use History: None Reported - Past Family History Mother History Unknown: Yes Family Medical History: COPD Additional Family Medical History / Comment(s): Mother from COPD at the age of 55 yrs. Brother(s) Family Medical History: Diabetes Mellitus Father Family Medical History: Unable to Obtain General Exam Limitations: no limitations General appearance: alert, in no apparent distress Head exam: Present: atraumatic, normocephalic Eye exam: Present: normal appearance, EOMI Neck exam: Present: normal inspection Respiratory exam: Absent: respiratory distress Cardiovascular Exam: Present: regular rate Extremities exam: Present: normal inspection Back exam: Present: normal inspection Neurological exam: Present: alert, oriented X3 Psychiatric exam: Present: normal affect, normal mood Skin exam: Present: warm, dry Course Vital Signs 08/23/23 08/23/23 18:57 21:03 Temperature 98.1 F 98.0 F Pulse Rate 86 72 Respiratory 18 18 Rate Blood Pressure 125/88 114/80 O2 Sat by Pulse 100 99 Oximetry Medical Decision Making - Medical Decision Making Was pt. sent in by a medical professional or institution (, PA, FOOD SERVICE ATTENDANT, urgent ca re, hospital, or care home...) When possible be specific @ -No Did you speak to anyone other than the patient for history (EMS, parent, family, police, friend...)? What history was obtained from this source @ -No Did you review nursing and triage notes (agree or disagree)? Why? @ -I reviewed and agree with nursing and triage notes Were old charts reviewed (outside hosp., previous admission, EMS record, old EKG, old radiological studies, urgent care reports/EKG's, care home records)? Report findings @ -No old charts were reviewed Differential Diagnosis (chest pain, altered mental status, abdominal pain women, abdominal pain men, vaginal bleeding, weakness, fever, dyspnea, syncope, headache, dizziness, GI bleed, back pain, seizure, CVA, palpatations, mental health, musculoskeletal)? @ - [facility] Differential Back Pain: Strain, zoster, cauda equina syndrome, epidural abscess, vertebral osteomyelitis, discitis, fracture, subluxation, disc herniation, DJD, spinal stenosis, dissection, AAA, pancreatitis, peptic ulcer disease, pyelonephritis, kidney stone this is not meant to be an all-inclusive list. EKG interpreted by me (3pts min.). @ -As above X-rays interpreted by me (1pt min.). @ -None done CT interpreted by me (1pt min.). @ -None done U/S interpreted by me (1pt. min.). @ -None done What testing was considered but not performed or refused? (CT, X-rays, U/S, darren delvalle)? Why? @ -None What meds were considered but not given or refused? Why? @ -None Did you discuss the management of the patient with other professionals (professionals i.e. Dr., PA, FOOD SERVICE ATTENDANT, lab, RT, psych nurse, social science research assistant, surveillance monitor, teacher, aoc plans intelligence officer chief, child support case officer)? Give summary @ -No Was smoking cessation discussed for >3mins.? @ -No Was critical care preformed (if so, how long)? @ -No Were there social determinants of health that impacted care today? How? (Homelessness, low income, unemployed, alcoholism, drug addiction, transportation, low edu. Level, literacy, decrease access to med. care, [place] [facility], rehab)? @ -No Was there de-escalation of care discussed even if they declined (Discuss DNR or withdrawal of care, Hospice)? DNR status @ -No What co-morbidities impacted this encounter? (DM, HTN, Smoking, COPD, CAD, Cancer, CVA, ARF, Chemo, Hep., AIDS, mental health diagnosis, sleep apnea, morbid obesity)? @ -None Was patient admitted / discharged? Hospital course, mention meds given and route, prescriptions, significant lab abnormalities, going to OR and other pertinent info. @ -38-year-old female present with chief complaint of lower back pain. History of chronic lower back pain. No new injury or trauma. No red flag symptoms. Patient is given pain medication, on reassessment she reports improvement in her pain. She is discharged home. Follow-up with PCP. Report back to ER with any new or worsening symptoms. Discussed return parameters and answered all questions. Patient conveyed verbal understanding and agreed to the plan. I discussed this case in detail with my attending Dr. Gordillo Undiagnosed new problem with uncertain prognosis? @ -No Drug Therapy requiring intensive monitoring for toxicity (Heparin, Nitro, Insulin, Cardizem)? @ -No Were any procedures done? @ -No Diagnosis/symptom? @ -Lumbar strain Acute, or Chronic, or Acute on Chronic? @ -Acute Uncomplicated (without systemic symptoms) or Complicated (systemic symptoms)? @ -Uncomplicated Side effects of treatment? @ -No Exacerbation, Progression, or Severe Exacerbation? @ -No Poses a threat to life or bodily function? How? (Chest pain, [place], [place], pneumonia, PE, COPD, DKA, ARF, appy, cholecystitis, CVA, Diverticulitis, Homicidal, Suicidal, threat to staff... and all critical care pts) @ -Low likelihood Disposition Clinical Impression: Strain of lumbar region Disposition: HOME SELF-CARE Condition: Good Instructions (If sedation given, give patient instructions): Acute Low Back Pain (ED) Additional Instructions: Follow-up with PCP. Report back to ER with any new or worsening symptoms. Is patient prescribed a controlled substance at d/c from ED?: No Referrals: Alfred Varela [Primary Care Provider] - 1-2 days Time of Disposition: 21:12
[2023-08-23 21:14] VITALS: BP 114/80; PULSE 72
[2023-08-23 21:51] VITALS: TEMP 98
== END 2023-08-23 21:38 | disposition home or self-care (01) ==
LOC: EC 18:44
DX: S39.012A Strain of muscle, fascia and tendon of lower back, initial encounter (principal); Z88.5 Allergy status to narcotic agent; Z88.8 Allergy status to other drugs, medicaments and biological substances; X50.0XXA Overexertion from strenuous movement or load, initial encounter
CPT/HCPCS: 99283; 96372 ×4; J1100; J2360; J1170; J1885

== ENCOUNTER → 2023-09-10 | Outpatient (CLI) | payer BC | END | disposition home or self-care (01) | LOC: RADXRMAIN 10:37 | PROVIDERS: ATTEND Neurological Surgery | DX: Z53.9 Procedure and treatment not carried out, unspecified reason (principal) ==

== ENCOUNTER → 2023-09-10 | Outpatient (CLI) | payer BC ==
[2023-09-10 13:05] VITALS: BP 109/76; PULSE 90; RESP 14; TEMP 98; BMI 33.5
--- NOTE | 2023-11-29 12:01 | P.HPBAR ---
Bariatric H&P - History & Physicial H&P Date: 09/10/23 History & Physicial: Visit/CC: follow up with dr. dubon Patient initial contact: Initial weight: 312 kg Initial weight in pounds: 687.84 Height: 5 ft 7 in Initial BMI: 107.7 Last weight: Current weight: 97.069 kg Current weight in pounds: 214.00 Current BMI: 33.5 [place] body weight (based on NIH guidelines): 61.235 kg Excess body weight loss: 85.7% The patient is a 38 year-old F who presents for Bariatric Assessment. Patient presents today for bariatric follow-up. She is an excellent weight loss. She has minimal complaints of gerd. Past Medical History Past Medical History: Asthma, Diabetes Mellitus, Fibromyalgia, GERD/Reflux, Sleep Apnea/CPAP/BIPAP, Thyroid Disorder Additional Past Medical History / Comment(s): Migraines with aura, DDD, NIDDM type II, diverticulitis with perforation/colostomy since reversed, IBS, chronic seroma, CARLITOS/no device, polycystic ovaries, hypothyroid, season allergies History of Any Multi-Drug Resistant Organisms: None Reported Past Surgical History: Bariatric Surgery, Cholecystectomy, Uterine Ablation Additional Past Surgical History / Comment(s): 06/06/21 sleeve gastrectomy, rt Breast biopsy. bowel resection with colostomy/ later colostomy reversal, abdominal surgery to remove scar tissue, EGD, colonoscopy, back pain procedures uterine ablation, lysis of adhesions 07/11/22 Past Anesthesia/Blood Transfusion Reactions: No Reported Reaction Additional Past Anesthesia/Blood Transfusion Reaction / Comm: no hx blood transfusion, received monoclonal antibodies in Feb 2021 Past Psychological History: Anxiety, Bipolar, Depression Additional Psychological History / Comment(s): Pt has eating disorder-binge eater, borderline personality disorder. Pt resides with her boyfriend and his mother. She is independent. Smoking Status: Never smoker Past Alcohol Use History: Occasional Past Drug Use History: None Reported - Past Family History Mother History Unknown: Yes Family Medical History: COPD Additional Family Medical History / Comment(s): Mother from COPD at the age of 55 yrs. Brother(s) Family Medical History: Diabetes Mellitus Father Family Medical History: Unable to Obtain Surgical - Exam Vital Signs Temp Pulse Resp BP 98 F 90 14 109/76 09/10/23 12:12 09/10/23 12:12 09/10/23 12:12 09/10/23 12:12 Vital signs appear stable. Abdomen soft nontender. Bariatric Assessment & Plan Plan: Status post sleeve yesterday. Patient is an excellent weight loss. Her gerd is minimal will observe. She will follow-up in 4 weeks. Bariatric Checklist Checklist: Plan: Checklist: EGD: 1. Hiatal hernia: 2. H. Pylori: HgbA1c: Vitamin D: Smoking: Never smoker Primary care physician referral: Dr. Alaniz Psychiatry clearance: Cardiology clearance: Sleep study: Diet journal: VTE risk score: VTE risk level: Rehab needs at discharge:
== END ==
LOC: BARWHC3 09:17
PROVIDERS: ATTEND Surgery
DX: E66.01 Morbid (severe) obesity due to excess calories (principal); Z88.5 Allergy status to narcotic agent; Z88.8 Allergy status to other drugs, medicaments and biological substances; Z68.33 Body mass index [BMI] 33.0-33.9, adult; Z98.84 Bariatric surgery status; Z90.3 Acquired absence of stomach [part of]
CPT/HCPCS: 99211

== ENCOUNTER → 2023-09-10 | Outpatient (CLI) | payer BC ==
[2023-09-10 10:47] LABS: Partial Thromboplastin Time 26.8 sec (22.0-30.0)
--- NOTE | 2023-09-10 12:25 | XR ---
EXAMINATION TYPE: XR chest 2V DATE OF EXAM: 09/10/2023 11:59 AM CLINICAL INDICATION:Female, 38 years old with history of M461 SACROLIITIS - PRE SURG TESTING; [facility] COMPARISON: None TECHNIQUE: XR chest 2V Frontal and lateral views of the chest. FINDINGS: Lungs/Pleura: There is no evidence of pleural effusion, focal consolidation, or pneumothorax. Pulmonary vascularity: Unremarkable. Heart/mediastinum: Cardiomediastinal silhouette is unremarkable. Musculoskeletal: No acute osseous pathology. Other findings: None IMPRESSION: No acute cardiopulmonary disease/process.
[2023-09-10 14:33] LABS: Basophils # (A) 0.07 X 10*3/uL (0.00-0.10); Basophils % (A) 1.2 %; Eosinophils # (A) 0.14 X 10*3/uL (0.04-0.35); Eosinophils % (A) 2.3 %; HCT 44.7 % (37.2-46.3); HGB 14.4 g/dL (12.0-15.0); Lymphocytes # (A) 2.02 X 10*3/uL (0.90-5.00); Lymphocytes % (A) 33.6 %; MCH 29.4 pg (27.0-32.0); MCHC 32.2 g/dL (32.0-37.0); MCV 91.2 FL (80.0-97.0); Mean Platelet Volume 10.3 FL (9.5-12.2); Monocytes # (A) 0.38 X 10*3/uL (0.20-1.00); Monocytes % (A) 6.3 %; NRBC Per 100 WBC 0 X 10*3/uL (0.00-0.01); Neutrophils # (A) 3.39 X 10*3/uL (1.80-7.70); Neutrophils % (A) 56.4 %; Platelet Count 273 X 10*3/uL (140-440); RDW 13.5 % (11.5-14.5); WBC 6.01 X 10*3/uL (4.50-10.00)
[2023-09-10 15:02] LABS: BUN/Creat Ratio 14.56 Ratio (12.00-20.00); Blood Urea Nitrogen 13.1 mg/dL (9.0-27.0); Calcium 9.7 mg/dL (8.7-10.3); Chloride 106 mmol/L (96-109); Glucose 116 mg/dL (70-110); Potassium 4.3 mmol/L (3.5-5.5); Sodium 142 mmol/L (135-145)
[2023-09-10 15:56] LABS: Appearance,Urine Turbid (Clear); Bilirubin,Urine Negative (Negative); Blood,Urine Negative (Negative); Color,Urine Yellow (Yellow); Ketones,Urine Negative (Negative); Nitrite,Urine Negative (Negative); PH, Urine 8.5; Specific Gravity,Urine 1.019 (1.001-1.030)
[2023-09-10 16:49] LABS: Amorphous Sediment,Urine Present (None Seen); Bacteria,Urine 3+ (None Seen); Sperm,Urine Present
== END | disposition home or self-care (01) ==
LOC: LABWHC1 10:04
PROVIDERS: ATTEND Neurological Surgery
DX: M46.1 Sacroiliitis, not elsewhere classified (principal); R94.31 Abnormal electrocardiogram [ECG] [EKG]
CPT/HCPCS: 36415; 71046; 80048; 81001; 85025; 85610; 85730

== ENCOUNTER 2023-10-02 17:48 | Emergency (ER) | payer BC ==
--- NOTE | 2023-10-02 18:15 | ED ---
Headache HPI - General Source: patient, RN notes reviewed Mode of arrival: ambulatory Limitations: no limitations <Francine Ray - Last Filed: 10/02/23 18:14> - General Source: RN notes reviewed, old records reviewed Mode of arrival: ambulatory Limitations: no limitations - History of Present Illness MD Complaint: headache, "migraine" -: days(s) Onset Description: gradual Location: right, left, frontal, temporal Severity: severe Severity scale (1-10): 9 Quality: aching, throbbing Consistency: constant Improves With: nothing Worsens With: none Treatments Prior to Arrival: none <Jere Botello - Last Filed: 10/09/23 19:38> - General Stated Complaint: Migraine Time Seen by Provider: 10/02/23 18:15 - History of Present Illness Initial Comments: Quick note: 38-year-old female presented to ER with chief complaint of migraine. Patient has a past medical history significant of migraines. She states pain started Sunday night. She has tried her prescribed medications without relief. She describes it as a pressure in the back of her head. She does report she woke up this morning with slurred speech which is normal for her when she does have migraines. (Francine Ray) This is a 38-year-old female to the ER for evaluation of migraine headache chronic headache chronic pain. No new symptoms noted (Jere Botello) - Related Data Home Medications Medication Instructions Recorded Confirmed Levothyroxine Sodium [Synthroid] 50 mcg PO DAILY 05/05/14 09/10/23 Cetirizine HCl [Zyrtec] 10 mg PO DAILY 08/30/19 09/10/23 Pregabalin [Lyrica] 225 mg PO BID 08/30/19 09/10/23 HYDROcodone/APAP 7.5-325MG [Rebuck 1 tab PO BID PRN 08/23/21 09/10/23 7.5-325] Atogepant [Qulipta] 60 mg PO HS 11/28/21 09/10/23 Nystatin 100,000 Unit/gm Powd 1 applic TOPICAL BID PRN 12/12/21 09/10/23 [Mycostatin Powder] Cyclobenzaprine [Flexeril] 10 mg PO DAILY PRN 01/06/22 09/10/23 Ergocalciferol (Vitamin D2) 1,250 mcg PO GARCIA 05/19/22 09/10/23 [Drisdol (50,000 Iu)] Fluconazole 200 mg PO GARCIA 05/19/22 09/10/23 Acetaminophen Tab [Tylenol] 650 mg PO Q6H PRN 10/02/22 09/10/23 Lasmiditan Succinate [Reyvow] 50 mg PO DAILY PRN 10/02/22 09/10/23 Metoclopramide [Reglan] 10 mg PO DAILY PRN 10/02/22 09/10/23 Semaglutide [Wegovy] 2.4 mg SQ GARCIA 10/02/22 09/10/23 Ketorolac [Toradol] 10 mg PO Q6HR PRN 10/30/22 09/10/23 Nystatin 1 applic TOPICAL BID PRN 11/19/22 09/10/23 buPROPion XL [Wellbutrin XL] 150 mg PO DAILY 01/08/23 09/10/23 Vit No.179/Iron/Folic 1 each PO DAILY 07/02/23 09/10/23 [ Tablet] Allergies Allergy/AdvReac Type Severity Reaction Status Date / Time codeine AdvReac Hallucinati Verified 10/02/23 18:10 ons tramadol AdvReac Hallucinati Verified 10/02/23 18:10 ons valacyclovir HCl AdvReac BLURRED Verified 10/02/23 18:10 [From Valtrex] VISION Review of Systems ROS Other: All systems not noted in ROS Statement are negative. <Francine Ray - Last Filed: 10/02/23 18:14> ROS Other: All systems not noted in ROS Statement are negative. <Jere Botello - Last Filed: 10/09/23 19:38> ROS Statement: Those systems with pertinent positive or pertinent negative responses have been documented in the HPI. Past Medical History Past Medical History: Asthma, Diabetes Mellitus, Fibromyalgia, GERD/Reflux, Sleep Apnea/CPAP/BIPAP, Thyroid Disorder Additional Past Medical History / Comment(s): Migraines with aura, DDD, NIDDM type II, diverticulitis with perforation/colostomy since reversed, IBS, chronic seroma, CARLITOS/no device, polycystic ovaries, hypothyroid, season allergies History of Any Multi-Drug Resistant Organisms: None Reported Past Surgical History: Bariatric Surgery, Cholecystectomy, Uterine Ablation Additional Past Surgical History / Comment(s): 06/06/21 sleeve gastrectomy, rt Breast biopsy. bowel resection with colostomy/ later colostomy reversal, abdominal surgery to remove scar tissue, EGD, colonoscopy, back pain procedures uterine ablation, lysis of adhesions 07/11/22 Past Anesthesia/Blood Transfusion Reactions: No Reported Reaction Additional Past Anesthesia/Blood Transfusion Reaction / Comment(s): no hx blood transfusion, received monoclonal antibodies in Feb 2021 Past Psychological History: Anxiety, Bipolar, Depression Smoking Status: Never smoker Past Alcohol Use History: Occasional Past Drug Use History: None Reported - Past Family History Mother History Unknown: Yes Family Medical History: COPD Additional Family Medical History / Comment(s): Mother from COPD at the age of 55 yrs. Brother(s) Family Medical History: Diabetes Mellitus Father Family Medical History: Unable to Obtain <Francine Ray - Last Filed: 10/02/23 18:14> General Exam Limitations: no limitations <Francine Ray - Last Filed: 10/02/23 18:14> General appearance: alert, in no apparent distress Head exam: Present: atraumatic, normocephalic, normal inspection Eye exam: Present: normal appearance, PERRL, EOMI. Absent: scleral icterus, conjunctival injection, periorbital swelling ENT exam: Present: normal exam, mucous membranes moist Neck exam: Present: normal inspection. Absent: tenderness, meningismus, lymphadenopathy Respiratory exam: Present: normal lung sounds bilaterally. Absent: respiratory distress, wheezes, rales, rhonchi, stridor Cardiovascular Exam: Present: regular rate, normal rhythm, normal heart sounds. Absent: systolic murmur, diastolic murmur, rubs, gallop, clicks GI/Abdominal exam: Present: soft, normal bowel sounds. Absent: distended, tenderness, guarding, rebound, rigid Extremities exam: Present: normal inspection, full ROM, normal capillary refill. Absent: tenderness, pedal edema, joint swelling, calf tenderness Back exam: Present: normal inspection Neurological exam: Present: alert, oriented X3, CN II-XII intact Psychiatric exam: Present: normal affect, normal mood Skin exam: Present: warm, dry, intact, normal color. Absent: rash <Jere Botello - Last Filed: 10/09/23 19:38> - General Exam Comments Initial Comments: Visual Physical Exam Vital signs reviewed General: Well-appearing, nontoxic, no acute distress. Stuttering/slurring speech Head: Normocephalic, atraumatic Eyes: PERRLA, EOMI ENT: Airway patent Chest: Nonlabored breathing Skin: No visual rash, normal skin tone Neuro: Alert and oriented 3 Musculoskeletal: No gross abnormalities (Francine Ray) Course <Jere Botello - Last Filed: 10/09/23 19:38> Vital Signs 10/02/23 10/02/23 10/02/23 18:07 18:10 19:38 Temperature 98.6 F 98.7 F 97.8 F Pulse Rate 80 81 70 Respiratory 16 18 18 Rate Blood Pressure 135/86 121/87 116/78 O2 Sat by Pulse 99 100 97 Oximetry - Reevaluation(s) Reevaluation #1: Medical records are reviewed (Jere Botello) Reevaluation #2: Patient symptoms are improved (Jere Botello) Reevaluation #3: Informed of results and questions answered (Jere Botello) Reevaluation #4: Was pt. sent in by a medical professional or institution (, PA, GAME FARM HELPER, urgent care, hospital, or fdc...) When possible be specific @ -no Did you speak to anyone other than the patient for history (EMS, parent, family, police, friend...)? What history was obtained from this source @ -no Did you review nursing and triage notes (agree or disagree)? Why? @ -agree Are old charts reviewed (outside hosp., previous admission, EMS record, old EKG, old radiological studies, urgent care reports/EKG's, fdc records)? Report findings @ -yes Differential Diagnosis (chest pain, altered mental status, abdominal pain women, abdominal pain men, vaginal bleeding, weakness, fever, dyspnea, syncope, headache, dizziness, GI bleed, back pain, seizure, CVA, palpatations, mental health, musculoskeletal)? @ -prior EKG interpreted by me (3pts min.). @ -no X-rays interpreted by me (1pt min.). @ -no CT interpreted by me (1pt min.). @ -no U/S interpreted by me (1pt. min.). @ -no What testing was considered but not performed or refused? (CT, X-rays, U/S, labs)? Why? @ -none What meds were considered but not given or refused? Why? @ -none Did you discuss the management of the patient with other professionals (professionals i.e. Dr., PA, GAME FARM HELPER, lab, RT, psych nurse, social work nurse, head of marketing adometry, teacher, chief creative officer, case sealer)? Give summary @ -no Was smoking cessation discussed for >3mins.? @ -no Were there social determinants of health that impacted care today? How? (Homelessness, low income, unemployed, alcoholism, drug addiction, transportation, low edu. Level, literacy, decrease access to med. care, long term, rehab)? @ -none Was there de-escalation of care discussed even if they declined (Discuss DNR or withdrawal of care, Hospice)? DNR status @ -no What co-morbidities impacted this encounter? (DM, HTN, Smoking, COPD, CAD, Cance r, CVA, ARF, Chemo, Hep., AIDS, mental health diagnosis, sleep apnea, morbid obesity)? @ -none Was patient admitted / discharged? Hospital course, mention meds given and route, prescriptions, significant lab abnormalities, going to OR and other pertinent info. @ - 38 female reevaluation headache headache resolved here in the ER no neurological deficits noted patient's headache is improved patient feels improved can be discharged home Admitted Was critical care preformed (if so, how long)? @ -no Undiagnosed new problem with uncertain prognosis? @ -no Drug Therapy requiring intensive monitoring for toxicity (Heparin, Nitro, Insulin, Cardizem)? @ -no Were any procedures done? @ -no Diagnosis/symptom? @ -Migraine headache Acute, or Chronic, or Acute on Chronic? @ -Acute Uncomplicated (without systemic symptoms) or Complicated (systemic symptoms)? @ -Complicated Side effects of treatment? @ -no Exacerbation, Progression, or Severe Exacerbation? @ -exacerbation Poses a threat to life or bodily function? How? (Chest pain, [place], [place], pneumonia, PE, COPD, DKA, ARF, appy, cholecystitis, CVA, Diverticulitis, Homicidal, Suicidal, threat to staff... and all critical care pts) @ -no (Jere Botello) Reevaluation #5: Differential Headache: Migraine, tension, cluster, carbon monoxide, central venous thrombosis, pension karma temporal arteritis, acute closure glaucoma, intercranial hemorrhage, mastoiditis, sinusitis, head injury, this is not meant to be an all-inclusive list. (Jere Botello) Medical Decision Making <Francine Ray - Last Filed: 10/02/23 18:14> <Jere Botello - Last Filed: 10/09/23 19:38> - Medical Decision Making I performed the quick note portion of this chart. Electronically signed by Francine Ray PA-C (Francine Ray) 38 female reevaluation headache headache resolved here in the ER no neurological deficits noted patient's headache is improved patient feels improved can be discharged home (Jere Botello) Disposition <Francine Ray - Last Filed: 10/02/23 18:14> Is patient prescribed a controlled substance at d/c from ED?: No <Jere Botello - Last Filed: 10/09/23 19:38> Clinical Impression: Slurred speech, Migraine headache Disposition: HOME SELF-CARE Condition: Fair Instructions (If sedation given, give patient instructions): Acute Headache (ED) Referrals: Alfred Varela [Primary Care Provider] - 1-2 days
[2023-10-02 19:25] VITALS: RESP 18
[2023-10-02] MEDS: diphenhydrAMINE 50 MG CAP PO STA (19:32)
[2023-10-02] MEDS: PROCHLORPERAZINE 10 MG TAB PO STA (19:32)
[2023-10-02] MEDS: HYDROmorphone 1 MG/ML 1 ML SYRINGE IM STA (19:33)
[2023-10-02 20:10] VITALS: BP 116/78; PULSE 70; TEMP 97.8
== END 2023-10-02 19:40 | disposition home or self-care (01) ==
LOC: EC 17:48
DX: G43.909 Migraine, unspecified, not intractable, without status migrainosus (principal); Z88.5 Allergy status to narcotic agent; Z88.8 Allergy status to other drugs, medicaments and biological substances
CPT/HCPCS: 99283; 96372; S0183; J1170

== ENCOUNTER 2023-11-26 15:44 | Emergency (ER) | payer BC ==
[2023-11-26 16:01] VITALS: RESP 18; TEMP 98.1
--- NOTE | 2023-11-26 16:05 | ED ---
Back Pain [facility] - General Chief Complaint: Back Pain/Injury Stated Complaint: Back Pain,Leg Weakness Time Seen by Provider: 11/26/23 16:00 Source: patient, RN notes reviewed Limitations: no limitations - History of Present Illness Initial Comments: This is a 38-year-old female with a past medical history of chronic back pain who presents emergency department chief complaint of worsening lower back pain over the past few days. She endorses radiation of pain down bilateral LE and states that her legs feel 'weak' due to radiation of pain. Denies injuries, falls, loss of bladder or bowel continence or saddle anesthesias. Denies fevers, chills, dysuria, hematuria, increase in urinary frequency or urgency, history of IVDU. Follows with pain management where she is prescribed Flexeril and [place] and she states that these medications have not been helping with the pain. - Related Data Home Medications Medication Instructions Recorded Confirmed Levothyroxine Sodium [Synthroid] 50 mcg PO DAILY 05/05/14 11/19/23 Cetirizine HCl [Zyrtec] 10 mg PO DAILY 08/30/19 11/19/23 Pregabalin [Lyrica] 225 mg PO BID 08/30/19 11/19/23 Atogepant [Qulipta] 60 mg PO HS 11/28/21 11/19/23 Nystatin 100,000 Unit/gm Powd 1 applic TOPICAL BID PRN 12/12/21 11/19/23 [Mycostatin Powder] Cyclobenzaprine [Flexeril] 10 mg PO DAILY PRN 01/06/22 11/19/23 Ergocalciferol (Vitamin D2) 1,250 mcg PO GARCIA 05/19/22 11/19/23 [Drisdol (50,000 Iu)] Fluconazole 200 mg PO GARCIA 05/19/22 11/19/23 Acetaminophen Tab [Tylenol] 650 mg PO Q6H PRN 10/02/22 11/19/23 Lasmiditan Succinate [Reyvow] 50 mg PO DAILY PRN 10/02/22 11/19/23 Metoclopramide [Reglan] 10 mg PO DAILY PRN 10/02/22 11/19/23 Semaglutide [Wegovy] 2.4 mg SQ GARCIA 10/02/22 11/19/23 Ketorolac [Toradol] 10 mg PO Q6HR PRN 10/30/22 11/19/23 Nystatin 1 applic TOPICAL BID PRN 11/19/22 11/19/23 buPROPion XL [Wellbutrin XL] 300 mg PO DAILY 01/08/23 11/19/23 Vit No.179/Iron/Folic 1 each PO DAILY 07/02/23 11/19/23 [ Tablet] Biotin 5,000 mcg PO DAILY 11/19/23 11/19/23 HYDROcodone/APAP 10-325MG [[place] 1 tab PO BID PRN 11/19/23 11/19/23 10-325] Melatonin 30 mg PO HS PRN 11/19/23 11/19/23 Previous Rx's Medication Instructions Recorded methocarbamoL [Robaxin] 500 mg PO TID PRN #15 tab 11/26/23 Allergies Allergy/AdvReac Type Severity Reaction Status Date / Time codeine AdvReac Hallucinati Verified 11/19/23 09:45 ons tramadol AdvReac Hallucinati Verified 11/19/23 09:45 ons valacyclovir HCl AdvReac BLURRED Verified 11/19/23 09:45 [From Valtrex] VISION Review of Systems ROS Statement: Those systems with pertinent positive or pertinent negative responses have been documented in the HPI. ROS Other: All systems not noted in ROS Statement are negative. Past Medical History Past Medical History: Asthma, Diabetes Mellitus, Fibromyalgia, GERD/Reflux, Sleep Apnea/CPAP/BIPAP, Thyroid Disorder Additional Past Medical History / Comment(s): Migraines with aura, DDD, NIDDM type II, diverticulitis with perforation/colostomy since reversed, IBS, chronic seroma, CARLITOS/no device, polycystic ovaries, hypothyroid, season allergies History of Any Multi-Drug Resistant Organisms: None Reported Past Surgical History: Bariatric Surgery, Cholecystectomy, Uterine Ablation Additional Past Surgical History / Comment(s): 06/06/21 sleeve gastrectomy, rt Breast biopsy. bowel resection with colostomy/ later colostomy reversal, abdominal surgery to remove scar tissue, EGD, colonoscopy, back pain procedures uterine ablation, lysis of adhesions 07/11/22 Past Anesthesia/Blood Transfusion Reactions: No Reported Reaction Additional Past Anesthesia/Blood Transfusion Reaction / Comment(s): no hx blood transfusion, received monoclonal antibodies in Feb 2021 Past Psychological History: Anxiety, Bipolar, Depression Smoking Status: Never smoker Past Alcohol Use History: Occasional Past Drug Use History: None Reported - Past Family History Mother History Unknown: Yes Family Medical History: COPD Additional Family Medical History / Comment(s): Mother from COPD at the age of 55 yrs. Brother(s) Family Medical History: Diabetes Mellitus Father Family Medical History: Unable to Obtain General Exam - General Exam Comments Initial Comments: Visual Physical Exam Vital signs reviewed General: Well-appearing, nontoxic, no acute distress. Head: Normocephalic, atraumatic Eyes: PERRLA, EOMI ENT: Airway patent Chest: Nonlabored breathing Skin: No visual rash, normal skin tone Neuro: Alert and oriented 3 Musculoskeletal: No gross abnormalities Limitations: no limitations General appearance: alert, in no apparent distress Head exam: Present: atraumatic, normocephalic, normal inspection Eye exam: Present: normal appearance, PERRL, EOMI. Absent: scleral icterus, conjunctival injection, periorbital swelling ENT exam: Present: normal exam, mucous membranes moist Neck exam: Present: normal inspection. Absent: tenderness, meningismus, lymphadenopathy Respiratory exam: Present: normal lung sounds bilaterally. Absent: respiratory distress, wheezes, rales, rhonchi, stridor Cardiovascular Exam: Present: regular rate, normal rhythm, normal heart sounds. Absent: systolic murmur, diastolic murmur, rubs, gallop, clicks GI/Abdominal exam: Present: soft, normal bowel sounds. Absent: distended, tenderness, guarding, rebound, rigid Extremities exam: Present: normal inspection, full ROM, normal capillary refill. Absent: tenderness, pedal edema, joint swelling, calf tenderness Back exam: Present: normal inspection, tenderness (lumbar), paraspinal tenderness, other (positive straight leg raise, bilateral) Neurological exam: Present: alert, oriented X3, CN II-XII intact Skin exam: Present: warm, dry, intact, normal color. Absent: rash Course Vital Signs 11/26/23 11/26/23 15:58 18:23 Temperature 98.1 F 98.1 F Pulse Rate 79 76 Respiratory 18 18 Rate Blood Pressure 128/83 130/86 O2 Sat by Pulse 100 99 Oximetry Medical Decision Making - Medical Decision Making Was pt. sent in by a medical professional or institution (, PA, MOLDING PROCESS TECHNICIAN, urgent care, hospital, or fci...) When possible be specific @ -No Did you speak to anyone other than the patient for history (EMS, parent, family, police, friend...)? What history was obtained from this source @ -No Did you review nursing and triage notes (agree or disagree)? Why? @ -I reviewed and agree with nursing and triage notes Were old charts reviewed (outside hosp., previous admission, EMS record, old EKG, old radiological studies, urgent care reports/EKG's, fci records)? Report findings @ -No old charts were reviewed Differential Diagnosis (chest pain, altered mental status, abdominal pain women, abdominal pain men, vaginal bleeding, weakness, fever, dyspnea, syncope, headache, dizziness, GI bleed, back pain, seizure, CVA, palpatations, mental health, musculoskeletal)? @ -Differential Back Pain: Strain, zoster, cauda equina syndrome, epidural abscess, vertebral osteomyelitis, discitis, fracture, subluxation, disc herniation, DJD, spinal stenosis, dissection, AAA, pancreatitis, peptic ulcer disease, pyelonephritis, kidney stone, this is not meant to be an all-inclusive list. EKG interpreted by me (3pts min.). @ -none X-rays interpreted by me (1pt min.). @ -xray of the lumbar spine no acute process identified. CT interpreted by me (1pt min.). @ -None done U/S interpreted by me (1pt. min.). @ -None done What testing was considered but not performed or refused? (CT, X-rays, U/S, labs)? Why? @ -None What meds were considered but not given or refused? Why? @ -None Did you discuss the management of the patient with other professionals (vani horner i.e. , PA, MOLDING PROCESS TECHNICIAN, lab, RT, psych nurse, delinquency prevention social worker, reinforcing steel machine operator, teacher, chief accounting officer, caser up)? Give summary @ -No Was smoking cessation discussed for >3mins.? @ -No Was critical care preformed (if so, how long)? @ -No Were there social determinants of health that impacted care today? How? (Homelessness, low income, unemployed, alcoholism, drug addiction, transportation, low edu. Level, literacy, decrease access to med. care, long-term, rehab)? @ -No Was there de-escalation of care discussed even if they declined (Discuss DNR or withdrawal of care, Hospice)? DNR status @ -No What co-morbidities impacted this encounter? (DM, HTN, Smoking, COPD, CAD, Cancer, CVA, ARF, Chemo, Hep., AIDS, mental health diagnosis, sleep apnea, morbid obesity)? @ -None Was patient admitted / discharged? Hospital course, mention meds given and route, prescriptions, significant lab abnormalities, going to OR and other pertinent info. @ -Discharge. 38-year-old female, back pain. On examination patient has a positive straight leg test. Patient states that she is experiencing weakness of her bilateral lower extremities which has been ongoing and is following with specialist for this. He has no symptoms of loss of bladder or bowel, saddle anesthesias. X-ray nonconcerning for acute process. She is provided with a dose of muscle relaxers, pain medication, and steroids. She states that her sy mptoms have improved after medication ministration. Patient will be sent a prescription for meloxicam to take as needed for pain. Patient has follow-up appointment scheduled with her primary care provider and pain management next week. Recommend she keep these appointments. All questions answered at bedside and strict return parameters discussed with the patient as well as understanding. Discussed with Dr. Sullivan Undiagnosed new problem with uncertain prognosis? @ -No Drug Therapy requiring intensive monitoring for toxicity (Heparin, Nitro, Insulin, Cardizem)? @ -No Were any procedures done? @ -No Diagnosis/symptom? @ -lumbar back pain, sciatica, radiculopathy Acute, or Chronic, or Acute on Chronic? @ -acute on chronic Uncomplicated (without systemic symptoms) or Complicated (systemic symptoms)? @ -uncomplicated Side effects of treatment? @ -No Exacerbation, Progression, or Severe Exacerbation? @ -No Poses a threat to life or bodily function? How? (Chest pain, [place], [place], pneumonia, PE, COPD, DKA, ARF, appy, cholecystitis, CVA, Diverticulitis, Homicidal, Suicidal, threat to staff... and all critical care pts) @ -No Disposition Clinical Impression: Lumbar back pain with radiculopathy affecting lower extremity Disposition: HOME SELF-CARE Condition: Good Instructions (If sedation given, give patient instructions): Chronic Back Pain (DC) Additional Instructions: Return the emergency department if your symptoms worsen or do not improve. Recommend follow-up with your primary care provider and with pain management as scheduled. Take prescribed medication as needed for pain relief. Prescriptions: methocarbamoL [Robaxin] 500 mg PO TID PRN #15 tab PRN Reason: muscle spasms Is patient prescribed a controlled substance at d/c from ED?: No Referrals: Alfred Varela [Primary Care Provider] - 1-2 days Time of Disposition: 18:19
--- NOTE | 2023-11-26 16:26 | XR ---
EXAMINATION TYPE: XR lumbar spine 2 or 3V DATE OF EXAM: 11/26/2023 CLINICAL HISTORY: pain TECHNIQUE: Three views of the lumbar spine are submitted. COMPARISON: 06/08/2023 FINDINGS: There are 5 lumbar type vertebral bodies identified. The lumbar spine shows satisfactory alignment w ithout evidence of acute fracture or dislocation. Vertebral body heights are within normal limits. Mo derate to severe degenerative narrowing at L2-3 and L5-S1. Mild rotoscoliosis convex to the left. The overlying soft tissue appears unremarkable. IMPRESSION: No acute fracture or dislocation is seen in the lumbar spine. ICD 10 NO FRACTURE, INITIAL EVALUATION
[2023-11-26] MEDS: methylPREDNISolone SOD SUCCI 125 MG/2 ML VIAL IM ONE (17:54)
[2023-11-26] MEDS: ORPHENADRINE 30 MG/ML 2 ML VIAL IM STA (17:54)
[2023-11-26] MEDS: HYDROmorphone 1 MG/ML 1 ML SYRINGE IM STA (17:55)
[2023-11-26 18:26] VITALS: BP 130/86; PULSE 76
== END 2023-11-26 18:23 | disposition home or self-care (01) ==
LOC: EC 15:44
DX: M54.16 Radiculopathy, lumbar region (principal); Z88.5 Allergy status to narcotic agent; Z88.8 Allergy status to other drugs, medicaments and biological substances
CPT/HCPCS: 72100; 99283; 96372 ×3; J2360; J1170; J2919

== ENCOUNTER 2023-12-09 14:13 | Emergency (ER) | payer BC ==
[2023-12-09 14:18] VITALS: RESP 18; TEMP 97.6
--- NOTE | 2023-12-09 17:52 | ED ---
General Adult HPI - General Chief complaint: Headache Stated complaint: Speech Issues/Headache Time Seen by Provider: 12/09/23 15:48 Source: patient, RN notes reviewed Mode of arrival: ambulatory Limitations: no limitations - History of Present Illness Initial comments: 38-year-old female presents to the emergency department for evaluation of migraine headache. Patient states that she has a history of migraines. She does report taking her abortive medication for this. She states that she has not had any improvement in her symptoms over the past 2 days. She states that this is not out of the ordinary for her. The headache is typical in character. She states that when they get bad she tends to have changes in her speech. Denies "worst headache of her life", focal weakness. She does admit to nausea and photophobia which is typical of her migraines. - Related Data Home Medications Medication Instructions Recorded Confirmed Levothyroxine Sodium [Synthroid] 50 mcg PO DAILY 05/05/14 11/19/23 Cetirizine HCl [Zyrtec] 10 mg PO DAILY 08/30/19 11/19/23 Pregabalin [Lyrica] 225 mg PO BID 08/30/19 11/19/23 Atogepant [Qulipta] 60 mg PO HS 11/28/21 11/19/23 Nystatin 100,000 Unit/gm Powd 1 applic TOPICAL BID PRN 12/12/21 11/19/23 [Mycostatin Powder] Cyclobenzaprine [Flexeril] 10 mg PO DAILY PRN 01/06/22 11/19/23 Ergocalciferol (Vitamin D2) 1,250 mcg PO GARCIA 05/19/22 11/19/23 [Drisdol (50,000 Iu)] Fluconazole 200 mg PO GARCIA 05/19/22 11/19/23 Acetaminophen Tab [Tylenol] 650 mg PO Q6H PRN 10/02/22 11/19/23 Lasmiditan Succinate [Reyvow] 50 mg PO DAILY PRN 10/02/22 11/19/23 Metoclopramide [Reglan] 10 mg PO DAILY PRN 10/02/22 11/19/23 Semaglutide [Wegovy] 2.4 mg SQ GARCIA 10/02/22 11/19/23 Ketorolac [Toradol] 10 mg PO Q6HR PRN 10/30/22 11/19/23 Nystatin 1 applic TOPICAL BID PRN 11/19/22 11/19/23 buPROPion XL [Wellbutrin XL] 300 mg PO DAILY 01/08/23 11/19/23 Vit No.179/Iron/Folic 1 each PO DAILY 07/02/23 11/19/23 [ Tablet] Biotin 5,000 mcg PO DAILY 11/19/23 11/19/23 HYDROcodone/APAP 10-325MG [[place] 1 tab PO BID PRN 11/19/23 11/19/23 10-325] Melatonin 30 mg PO HS PRN 11/19/23 11/19/23 Previous Rx's Medication Instructions Recorded methocarbamoL [Robaxin] 500 mg PO TID PRN #15 tab 11/26/23 Allergies Allergy/AdvReac Type Severity Reaction Status Date / Time codeine AdvReac Hallucinati Verified 12/09/23 14:18 ons tramadol AdvReac Hallucinati Verified 12/09/23 14:18 ons valacyclovir HCl AdvReac BLURRED Verified 12/09/23 14:18 [From Valtrex] VISION Review of Systems ROS Statement: Those systems with pertinent positive or pertinent negative responses have been documented in the HPI. ROS Other: All systems not noted in ROS Statement are negative. Past Medical History Past Medical History: Asthma, Diabetes Mellitus, Fibromyalgia, GERD/Reflux, Sleep Apnea/CPAP/BIPAP, Thyroid Disorder Additional Past Medical History / Comment(s): Migraines with aura, DDD, NIDDM type II, diverticulitis with perforation/colostomy since reversed, IBS, chronic seroma, CARLITOS/no device, polycystic ovaries, hypothyroid, season allergies History of Any Multi-Drug Resistant Organisms: None Reported Past Surgical History: Bariatric Surgery, Cholecystectomy, Uterine Ablation Additional Past Surgical History / Comment(s): 06/06/21 sleeve gastrectomy, rt Breast biopsy. bowel resection with colostomy/ later colostomy reversal, abdominal surgery to remove scar tissue, EGD, colonoscopy, back pain procedures uterine ablation, lysis of adhesions 07/11/22 Past Anesthesia/Blood Transfusion Reactions: No Reported Reaction Additional Past Anesthesia/Blood Transfusion Reaction / Comment(s): no hx blood transfusion, received monoclonal antibodies in Feb 2021 Past Psychological History: Anxiety, Bipolar, Depression Smoking Status: Never smoker Past Alcohol Use History: Occasional Past Drug Use History: None Reported - Past Family History Mother History Unknown: Yes Family Medical History: COPD Additional Family Medical History / Comment(s): Mother from COPD at the age of 55 yrs. Brother(s) Family Medical History: Diabetes Mellitus Father Family Medical History: Unable to Obtain General Exam Limitations: no limitations General appearance: alert, in no apparent distress Head exam: Present: atraumatic, normocephalic, normal inspection Eye exam: Present: normal appearance, PERRL, EOMI. Absent: scleral icterus, co njunctival injection, periorbital swelling ENT exam: Present: normal exam, mucous membranes moist Neck exam: Present: normal inspection, full ROM. Absent: tenderness, meningismus, lymphadenopathy Respiratory exam: Present: normal lung sounds bilaterally. Absent: respiratory distress, wheezes, rales, rhonchi, stridor Cardiovascular Exam: Present: regular rate, normal rhythm, normal heart sounds. Absent: systolic murmur, diastolic murmur, rubs, gallop, clicks Extremities exam: Present: normal inspection, full ROM, normal capillary refill. Absent: tenderness, pedal edema, joint swelling, calf tenderness Back exam: Present: normal inspection Neurological exam: Present: alert, oriented X3, CN II-XII intact, normal gait Psychiatric exam: Present: normal affect, normal mood Skin exam: Present: warm, dry, intact, normal color. Absent: rash Course Vital Signs 12/09/23 12/09/23 12/09/23 14:14 18:01 20:02 Temperature 97.6 F 97.6 F Pulse Rate 92 70 61 Respiratory 18 18 18 Rate Blood Pressure 115/71 106/73 105/69 O2 Sat by Pulse 100 97 97 Oximetry Medical Decision Making - Medical Decision Making Was pt. sent in by a medical professional or institution (, PA, PRESIDENTIAL SUPPORT SPECIALIST, urgent care, hospital, or penitentiary...) When possible be specific @ -No Did you speak to anyone other than the patient for history (EMS, parent, family, police, friend...)? What history was obtained from this source @ -No Did you review nursing and triage notes (agree or disagree)? Why? @ -I reviewed and agree with nursing and triage notes Were old charts reviewed (outside hosp., previous admission, EMS record, old EKG, old radiological studies, urgent care reports/EKG's, penitentiary records)? Report findings @ -No old charts were reviewed Differential Diagnosis (chest pain, altered mental status, abdominal pain women, abdominal pain men, vaginal bleeding, weakness, fever, dyspnea, syncope, headache, dizziness, GI bleed, back pain, seizure, CVA, palpatations, mental health, musculoskeletal)? @ -Differential Headache: Migraine, tension, cluster, carbon monoxide, central venous thrombosis, pension karma temporal arteritis, acute closure glaucoma, intercranial hemorrhage, mastoiditis, sinusitis, head injury, this is not meant to be an all-inclusive list. EKG interpreted by me (3pts min.). @ -None X-rays interpreted by me (1pt min.). @ -None done CT interpreted by me (1pt min.). @ -None done U/S interpreted by me (1pt. min.). @ -None done What testing was considered but not performed or refused? (CT, X-rays, U/S, labs)? Why? @ -None What meds were considered but not given or refused? Why? @ -None Did you discuss the management of the patient with other professionals (professionals i.e. , PA, PRESIDENTIAL SUPPORT SPECIALIST, lab, RT, psych nurse, social media marketing manager, atlassian administrator, teacher, amphibious operations officer, lining caser)? Give summary @ -No Was smoking cessation discussed for >3mins.? @ -No Was critical care preformed (if so, how long)? @ -No Were there social determinants of health that impacted care today? How? (Homelessness, low income, unemployed, alcoholism, drug addiction, transportation, low edu. Level, literacy, decrease access to med. care, residential, rehab)? @ -No Was there de-escalation of care discussed even if they declined (Discuss DNR or withdrawal of care, Hospice)? DNR status @ -No What co-morbidities impacted this encounter? (DM, HTN, Smoking, COPD, CAD, Cancer, CVA, ARF, Chemo, Hep., AIDS, mental health diagnosis, sleep apnea, morbid obesity)? @ -None Was patient admitted / discharged? Hospital course, mention meds given and route, prescriptions, significant lab abnormalities, going to OR and other pertinent info. @ -Discharge. Patient presented to the emergency department for evaluation of migraine headache. Since this is typical of the patient's presentation of prior migraines, patient will be treated symptomatically with a migraine cocktail. Patient reports improvement in her symptoms following this including improvement in her speech, photophobia, nausea. Patient will be discharged home. Strict return precautions discussed. Patient understanding agreeable with plan. Patient stable at time of discharge. Case discussed with Dr. Flores Undiagnosed new problem with uncertain prognosis? @ -No Drug Therapy requiring intensive monitoring for toxicity (Heparin, Nitro, Insulin, Cardizem)? @ -No Were any procedures done? @ -No Diagnosis/symptom? @ -Migraine Acute, or Chronic, or Acute on Chronic? @ -Acute Uncomplicated (without systemic symptoms) or Complicated (systemic symptoms)? @ -Uncomplicated Side effects of treatment? @ -No Exacerbation, Progression, or Severe Exacerbation? @ -No Poses a threat to life or bodily function? How? (Chest pain, [place], [place], pneumonia, PE, COPD, DKA, ARF, appy, cholecystitis, CVA, Diverticulitis, Homicidal, Suicidal, threat to staff... and all critical care pts) @ -No Disposition Clinical Impression: Migraine Disposition: HOME SELF-CARE Condition: Stable Is patient prescribed a controlled substance at d/c from ED?: No Referrals: Alfred Varela [Primary Care Provider] - 1-2 days
[2023-12-09] MEDS: METOCLOPRAMIDE 5 MG/ML 2 ML VIAL IM STA (18:19)
[2023-12-09] MEDS: diphenhydrAMINE 50 MG/ML 1 ML VIAL IM STA (18:20)
[2023-12-09] MEDS: HYDROmorphone 1 MG/ML 1 ML SYRINGE IM STA (18:21)
[2023-12-09] MEDS: KETOROLAC 15 MG/ML 1 ML VIAL IM STA (18:22)
[2023-12-09 20:04] VITALS: BP 105/69; PULSE 61
[2023-12-09] MEDS: HYDROmorphone 0.5 MG/0.5 ML SYRINGE IVP STA (20:04)
== END 2023-12-09 20:15 | disposition home or self-care (01) ==
LOC: EC 14:13
DX: G43.109 Migraine with aura, not intractable, without status migrainosus (principal); Z79.899 Other long term (current) drug therapy; Z88.5 Allergy status to narcotic agent; Z88.8 Allergy status to other drugs, medicaments and biological substances; Z93.3 Colostomy status
CPT/HCPCS: 99283; 96374; 96372 ×4; J1200; J2765; J1170 ×2; J1885

== ENCOUNTER → 2023-12-10 | Outpatient (CLI) | payer BC ==
[2023-12-10 17:22] LABS: Basophils # (A) 0.07 X 10*3/uL (0.00-0.10); Basophils % (A) 0.9 %; Eosinophils % (A) 1.3 %; HCT 45.3 % (37.2-46.3); HGB 14.4 g/dL (12.0-15.0); Lymphocytes # (A) 2.14 X 10*3/uL (0.90-5.00); Lymphocytes % (A) 28.8 %; MCH 29.8 pg (27.0-32.0); MCHC 31.8 g/dL (32.0-37.0); MCV 93.8 FL (80.0-97.0); Mean Platelet Volume 10.8 FL (9.5-12.2); Monocytes # (A) 0.49 X 10*3/uL (0.20-1.00); Monocytes % (A) 6.6 %; NRBC Per 100 WBC 0 X 10*3/uL (0.00-0.01); Neutrophils # (A) 4.62 X 10*3/uL (1.80-7.70); Neutrophils % (A) 62.1 %; Platelet Count 264 X 10*3/uL (140-440); RBC 4.83 X 10*6/uL (4.10-5.20); RDW 12.8 % (11.5-14.5); WBC 7.44 X 10*3/uL (4.50-10.00)
[2023-12-10 17:28] LABS: BUN/Creat Ratio 17.62 Ratio (12.00-20.00); Blood Urea Nitrogen 14.1 mg/dL (9.0-27.0); Chloride 104 mmol/L (96-109); Chol/HDL Ratio 3.46 Ratio; Glucose 77 mg/dL (70-110); LDL Cholesterol,Calculated 135.1 mg/dL (0.0-131.0); Potassium 4.3 mmol/L (3.5-5.5); Sodium 142 mmol/L (135-145); VLDL Calculation 17.04 mg/dL (5.00-40.00)
[2023-12-10 17:29] LABS: ALT 24 U/L (8-44); AST 26 U/L (13-35); Albumin 4.1 g/dL (3.8-4.9); Albumin/Globulin Ratio 1.95 Ratio (1.60-3.17); Alkaline Phosphatase 93 U/L (41-126); Calcium 9.5 mg/dL (8.7-10.3); Carbon Dioxide 26.5 mmol/L (21.6-31.8); Globulin 2.1 g/dL (1.6-3.3); Total Bilirubin 0.7 mg/dL (0.3-1.2); Total Protein 6.2 g/dL (6.2-8.2)
== END | disposition home or self-care (01) ==
LOC: LABWHC1 10:50
PROVIDERS: ATTEND Family Medicine
DX: E66.9 Obesity, unspecified (principal); Z68.33 Body mass index [BMI] 33.0-33.9, adult
CPT/HCPCS: 36415; 80053; 80061; 83036; 85025

== ENCOUNTER → 2023-12-13 | Outpatient (CLI) | payer BC ==
--- NOTE | 2023-12-13 08:43 | USB ---
Reason for Exam: Additional evaluation requested from prior study. Patient History: Menarche at age 10. Patient has no children. Premenopausal. 2009, Lumpectomy on the Right side. Risk Values: Kaitlyn 5 year model risk: 0.6%. NCI Lifetime model risk: 11.1%. Technique: Method: Targeted. Prior Study Comparison: 06/04/2023 Bilateral MG 3D screening mammo w/cad, [facility]. 06/12/2023 Right MG 3D work up w/cad RT, [facility]. Findings: The lateral section of the breast of the right breast, the axilla of the right breast and the retroareolar of the right breast were scanned. Tiny cyst right breast 11:00 position 12 cm from the nipple is smaller in size and measures 2 x 2 mm versus 4 x 3 mm previously. No solid masses are identified. Overall Assessment: Benign, BI-RAD 2 Management: Screening Mammogram of both breasts in 6 months. A clinical breast exam by your physician is recommended on an annual basis and results should be correlated with mammographic findings. This exam should not preclude additional follow-up of suspicious palpable abnormalities. Results were given to the patient verbally at the time of exam. Electronically signed and approved by: Shen Saleem M.D. Radiologis
== END | disposition home or self-care (01) ==
LOC: RADMAMWWP 07:37
PROVIDERS: ATTEND Family Medicine
DX: R92.8 Other abnormal and inconclusive findings on diagnostic imaging of breast (principal)
CPT/HCPCS: 77061; 77065

== ENCOUNTER 2024-01-01 18:40 | Emergency (ER) | payer BC ==
[2024-01-01] MEDS ORDERED: HYDROmorphone 1 MG/ML 1 ML SYRINGE ONE (22:41)
[2024-01-01] MEDS ORDERED: DEXAMETHASONE SOD PHOSPHATE 10 MG/ML 1 ML VIAL ONE (22:41)
== END 2024-01-01 23:05 | disposition home or self-care (01) ==
LOC: EC 18:40
DX: M54.9 Dorsalgia, unspecified (principal)
CPT/HCPCS: 99283

== ENCOUNTER 2024-01-18 16:32 | Emergency (ER) | payer BC ==
[2024-01-18 17:07] VITALS: TEMP 98
--- NOTE | 2024-01-18 17:14 | ED ---
Back Pain HPI - General Source: patient Limitations: no limitations <Grover Mason - Last Filed: 01/18/24 17:14> - General Source: patient, RN notes reviewed Mode of arrival: ambulatory Limitations: no limitations - History of Present Illness MD Complaint: back pain <Dinorah Jesus - Last Filed: 01/19/24 00:21> - General Chief Complaint: Back Pain/Injury Stated Complaint: back pain/L leg pain Time Seen by Provider: 01/18/24 17:14 - History of Present Illness Initial Comments: 38-year-old female presenting with chief complaint of back pain. Patient experiencing left lower back pain that radiates down the left leg. She has a history of chronic back pain and does see pain management. No red flag symptoms. (Grover Mason) This is a 38-year-old female who presents to the emergency department for back pain. Patient has a history of chronic back pain due to a bad disc. She was told that she needs to have surgery eventually, but is not yet ready to proceed with that. She does follow with pain management and takes Dawson as needed. Over the last 3 days she has had a flareup of left lower back pain with radiation down the leg. Denies any loss of bowel/bladder control or saddle anesthesia. Also denies any new injuries. (Dinorah Jesus) - Related Data Home Medications Medication Instructions Recorded Confirmed Levothyroxine Sodium [Synthroid] 50 mcg PO DAILY 05/05/14 11/19/23 Cetirizine HCl [Zyrtec] 10 mg PO DAILY 08/30/19 11/19/23 Pregabalin [Lyrica] 225 mg PO BID 08/30/19 11/19/23 Atogepant [Qulipta] 60 mg PO HS 11/28/21 11/19/23 Nystatin 100,000 Unit/gm Powd 1 applic TOPICAL BID PRN 12/12/21 11/19/23 [Mycostatin Powder] Cyclobenzaprine [Flexeril] 10 mg PO DAILY PRN 01/06/22 11/19/23 Ergocalciferol (Vitamin D2) 1,250 mcg PO GARCIA 05/19/22 11/19/23 [Drisdol (50,000 Iu)] Fluconazole 200 mg PO GARCIA 05/19/22 11/19/23 Acetaminophen Tab [Tylenol] 650 mg PO Q6H PRN 10/02/22 11/19/23 Lasmiditan Succinate [Reyvow] 50 mg PO DAILY PRN 10/02/22 11/19/23 Metoclopramide [Reglan] 10 mg PO DAILY PRN 10/02/22 11/19/23 Semaglutide [Wegovy] 2.4 mg SQ GARCIA 10/02/22 11/19/23 Ketorolac [Toradol] 10 mg PO Q6HR PRN 10/30/22 11/19/23 Nystatin 1 applic TOPICAL BID PRN 11/19/22 11/19/23 buPROPion XL [Wellbutrin XL] 300 mg PO DAILY 01/08/23 11/19/23 Vit No.179/Iron/Folic 1 each PO DAILY 07/02/23 11/19/23 [ Tablet] Biotin 5,000 mcg PO DAILY 11/19/23 11/19/23 HYDROcodone/APAP 10-325MG [[place] 1 tab PO BID PRN 11/19/23 11/19/23 10-325] Melatonin 30 mg PO HS PRN 11/19/23 11/19/23 Previous Rx's Medication Instructions Recorded methocarbamoL [Robaxin] 500 mg PO TID PRN #15 tab 11/26/23 predniSONE 50 mg PO DAILY 5 Days #5 tablet 01/18/24 Allergies Allergy/AdvReac Type Severity Reaction Status Date / Time codeine AdvReac Hallucinati Verified 01/18/24 17:07 ons tramadol AdvReac Hallucinati Verified 01/18/24 17:07 ons valacyclovir HCl AdvReac BLURRED Verified 01/18/24 17:07 [From Valtrex] VISION Review of Systems ROS Other: All systems not noted in ROS Statement are negative. <Grover Mason - Last Filed: 01/18/24 17:14> ROS Other: All systems not noted in ROS Statement are negative. <Dinorah Jesus - Last Filed: 01/19/24 00:21> ROS Statement: Those systems with pertinent positive or pertinent negative responses have been documented in the HPI. Past Medical History Past Medical History: Asthma, Diabetes Mellitus, Fibromyalgia, GERD/Reflux, Sleep Apnea/CPAP/BIPAP, Thyroid Disorder Additional Past Medical History / Comment(s): Migraines with aura, DDD, NIDDM type II, diverticulitis with perforation/colostomy since reversed, IBS, chronic seroma, CARLITOS/no device, polycystic ovaries, hypothyroid, season allergies History of Any Multi-Drug Resistant Organisms: None Reported Past Surgical History: Bariatric Surgery, Cholecystectomy, Uterine Ablation Additional Past Surgical History / Comment(s): 06/06/21 sleeve gastrectomy, rt Breast biopsy. bowel resection with colostomy/ later colostomy reversal, abdominal surgery to remove scar tissue, EGD, colonoscopy, back pain procedures uterine ablation, lysis of adhesions 07/11/22 Past Anesthesia/Blood Transfusion Reactions: No Reported Reaction Additional Past Anesthesia/Blood Transfusion Reaction / Comment(s): no hx blood transfusion, received monoclonal antibodies in Feb 2021 Past Psychological History: Anxiety, Bipolar, Depression Smoking Status: Never smoker Past Alcohol Use History: Occasional Past Drug Use History: None Reported - Past Family History Mother History Unknown: Yes Family Medical History: COPD Additional Family Medical History / Comment(s): Mother from COPD at the age of 55 yrs. Brother(s) Family Medical History: Diabetes Mellitus Father Family Medical History: Unable to Obtain <Grover Mason - Last Filed: 01/18/24 17:14> General Exam Limitations: no limitations <Grover Mason - Last Filed: 01/18/24 17:14> Limitations: no limitations General appearance: alert, in no apparent distress Head exam: Present: atraumatic, normocephalic, normal inspection Respiratory exam: Present: normal lung sounds bilaterally. Absent: respiratory distress, wheezes, rales, rhonchi, stridor Cardiovascular Exam: Present: regular rate, normal rhythm, normal heart sounds. Absent: systolic murmur, diastolic murmur, rubs, gallop, clicks Back exam: Present: other (Tenderness to palpation of the left lower back) Neurological exam: Present: alert, oriented X3, CN II-XII intact Psychiatric exam: Present: normal affect, normal mood Skin exam: Present: warm, dry, intact, normal color. Absent: rash <Dinorah Jesus - Last Filed: 01/19/24 00:21> - General Exam Comments Initial Comments: Visual Physical Exam Vital signs reviewed General: Well-appearing, nontoxic, no acute distress. Head: Normocephalic, atraumatic Eyes: PERRLA, EOMI ENT: Airway patent Chest: Nonlabored breathing Skin: No visual rash, normal skin tone Neuro: Alert and oriented 3 Musculoskeletal: No gross abnormalities (Grover Mason) Course Vital Signs 01/18/24 01/18/24 17:05 20:55 Temperature 98 F Pulse Rate 97 65 Respiratory 18 16 Rate Blood Pressure 108/74 99/61 O2 Sat by Pulse 98 99 Oximetry Medical Decision Making <Grover Mason - Last Filed: 01/18/24 17:14> <Dinorah Jesus - Last Filed: 01/19/24 00:21> - Medical Decision Making I performed the quick note portion of this visit, electronically signed Grover Mason PA-C (Grover Mason) This is a 38 year old female who presents to the emergency department for back pain. Was pt. sent in by a medical professional or institution? @ -No Did you speak to anyone other than the patient for history? @ -No Did you review nursing and triage notes? @ -Yes, and I agree, it is accurate with regards to the patient's symptoms. Were old charts reviewed? @ -No Differential Diagnosis? @ -Differential Back Pain: Strain, zoster, cauda equina syndrome, epidural abscess, vertebral osteomyelitis, discitis, fracture, subluxation, disc herniation, DJD, spinal stenosis, dissection, AAA, pancreatitis, peptic ulcer disease, pyelonephritis, kidney stone, this is not meant to be an all-inclusive list. EKG interpreted by me (3pts min.)? @ -Not obtained X-rays interpreted by me (1pt min.)? @ -Not obtained CT interpreted by me (1pt min.)? @ -Not obtained U/S interpreted by me (1pt. min.)? @ -Not obtained What testing was considered but not performed? (CT, X-rays, U/S, labs)? Why? @ -None What meds were considered but not given? Why? @ -None Did you discuss the management of the patient with other professionals? @ -No Did you reconcile home meds? @ -No Was smoking cessation discussed for >3mins.? @ -No Was critical care preformed (if so, how long)? @ -No Were there social determinants of health that impacted care today? How? (Homelessness, low income, unemployed, alcoholism, drug addiction, transportation, low edu. Level, literacy, decrease access to med. care, detention, rehab)? @ -No Was there de-escalation of care discussed even if they declined? (Discuss DNR or withdrawal of care, Hospice)? @ -No What co-morbidities impacted this encounter? (DM, HTN, Smoking, COPD, CAD, Cancer, CVA, Hep., AIDS, mental health diagnosis, sleep apnea, morbid obesity)? @ -Fibromyalgia, chronic back pain Was patient admitted / discharged? @ -Discharged. Patient's presentation consistent with a flareup of her sciatica. She had no red flag signs or symptoms. Pain was managed in the em ergency department. Prescription for 5-day course of prednisone provided. She does have Robaxin and Dawson she will continue to take at home as needed. Patient discharged home in stable condition. Case discussed with ED attending Dr. Flores. Return precautions reviewed in depth, the patient is instructed to return to the emergency department with any new, worsening, or concerning symptoms. Patient verbalized understanding. Undiagnosed new problem with uncertain prognosis? @ -None Drug Therapy requiring intensive monitoring for toxicity (Heparin, Nitro, Insulin, Cardizem)? @ -None Were any procedures done? @ -None Diagnosis/symptom? @ -Left lumbar radiculopathy Acute, or Chronic, or Acute on Chronic? @ -Acute Uncomplicated (without systemic symptoms) or Complicated (systemic symptoms)? @ -Uncomplicated Side effects of treatment? @ -None Exacerbation, Progression, or Severe Exacerbation] @ -Not applicable Poses a threat to life or bodily function? @ -No (Dinorah Jesus) Disposition <Grover Mason - Last Filed: 01/18/24 17:14> Is patient prescribed a controlled substance at d/c from ED?: No Time of Disposition: 20:41 <Dinorah Jesus - Last Filed: 01/19/24 00:21> Clinical Impression: Left lumbar radiculopathy Disposition: HOME SELF-CARE Instructions (If sedation given, give patient instructions): Acute Low Back Pain (ED), Lumbar Radiculopathy (ED) Additional Instructions: Return to the emergency department with any new, worsening, or concerning symptoms. Take the prednisone daily for 5 days. Follow up with your primary care provider in 1-2 days. Prescriptions: predniSONE 50 mg PO DAILY 5 Days #5 tablet Referrals: Alfred Varela [Primary Care Provider] - 1-2 days
[2024-01-18] MEDS: KETOROLAC 15 MG/ML 1 ML VIAL IM STA (19:51)
[2024-01-18] MEDS: DEXAMETHASONE SOD PHOSPHATE 10 MG/ML 1 ML VIAL IM STA (19:51)
[2024-01-18] MEDS: HYDROmorphone 1 MG/ML 1 ML SYRINGE IM STA ×2 (19:52→20:50)
[2024-01-18 21:07] VITALS: BP 99/61; PULSE 65; RESP 16
== END 2024-01-18 21:10 | disposition home or self-care (01) ==
LOC: EC 16:32
CPT/HCPCS: 96372; 99283

== ENCOUNTER 2024-02-02 15:54 | Emergency (ER) | payer BC ==
[2024-02-02 16:03] VITALS: BP 123/77; PULSE 76; RESP 18; TEMP 98.1
[2024-02-02] MEDS: ETODOLAC 400 MG TAB PO STA (16:24)
[2024-02-02] MEDS: PROCHLORPERAZINE 5 MG TAB PO STA (16:25)
[2024-02-02] MEDS: diphenhydrAMINE 50 MG CAP PO STA (16:25)
[2024-02-02] MEDS: HYDROmorphone 1 MG/ML 1 ML SYRINGE IM STA (16:26)
--- NOTE | 2024-02-02 16:29 | ED ---
Headache HPI - General Chief Complaint: Headache Stated Complaint: Migraine, difficulty speaking Time Seen by Provider: 02/02/24 15:58 Source: RN notes reviewed, old records reviewed Mode of arrival: ambulatory Limitations: no limitations - History of Present Illness Initial Comments: This is a 38-year-old female who presents here well-known to our emergency department for recurrent migraine headaches. Patient currently does follow with neurology and comes to emergency department for persistent and severe neurology issues. Patient does have follow-up with neurology this week and coming in for severe headache tonight recurrent migraine headache no other neurological deficit may be some vision changes MD Complaint: headache, "migraine" -: days(s) Onset Description: gradual Location: right, left, frontal, temporal Severity: mild, severe Severity scale (1-10): 10 Quality: aching, throbbing, pulsatile Consistency: constant Improves With: nothing Worsens With: none Associated Symptoms: confusion Other Symptoms: eye pain/redness Treatments Prior to Arrival: none - Related Data Home Medications Medication Instructions Recorded Confirmed Levothyroxine Sodium [Synthroid] 50 mcg PO DAILY 05/05/14 02/11/24 Cetirizine HCl [Zyrtec] 10 mg PO DAILY 08/30/19 02/11/24 Pregabalin [Lyrica] 225 mg PO BID 08/30/19 02/11/24 Atogepant [Qulipta] 60 mg PO HS 11/28/21 02/11/24 Nystatin 100,000 Unit/gm Powd 1 applic TOPICAL BID PRN 12/12/21 02/11/24 [Mycostatin Powder] Ergocalciferol (Vitamin D2) 1,250 mcg PO GARCIA 05/19/22 02/11/24 [Drisdol (50,000 Iu)] Fluconazole 200 mg PO GARCIA 05/19/22 02/11/24 Acetaminophen Tab [Tylenol] 650 mg PO Q6H PRN 10/02/22 02/11/24 Lasmiditan Succinate [Reyvow] 50 mg PO DAILY PRN 10/02/22 02/11/24 Metoclopramide [Reglan] 10 mg PO DAILY PRN 10/02/22 02/11/24 Ketorolac [Toradol] 10 mg PO Q6HR PRN 10/30/22 02/11/24 buPROPion XL [Wellbutrin XL] 300 mg PO DAILY 01/08/23 02/11/24 Vit No.179/Iron/Folic 1 each PO DAILY 07/02/23 02/11/24 [ Tablet] Biotin 5,000 mcg PO DAILY 11/19/23 02/11/24 HYDROcodone/APAP 10-325MG [[place] 1 tab PO BID PRN 11/19/23 02/11/24 10-325] Melatonin 30 mg PO HS PRN 11/19/23 02/11/24 Lisdexamfetamine Dimesylate 50 mg PO QAM 02/11/24 02/11/24 [Vyvanse] methocarbamoL [Robaxin] 750 mg PO BID PRN 02/11/24 02/11/24 Allergies Allergy/AdvReac Type Severity Reaction Status Date / Time codeine AdvReac Hallucinati Verified 02/11/24 08:43 ons tramadol AdvReac Hallucinati Verified 02/11/24 08:43 ons valacyclovir HCl AdvReac BLURRED Verified 02/11/24 08:43 [From Valtrex] VISION Review of Systems ROS Statement: Those systems with pertinent positive or pertinent negative responses have been documented in the HPI. ROS Other: All systems not noted in ROS Statement are negative. Past Medical History Past Medical History: Asthma, Diabetes Mellitus, Fibromyalgia, GERD/Reflux, Sleep Apnea/CPAP/BIPAP, Thyroid Disorder Additional Past Medical History / Comment(s): Migraines with aura, DDD, NIDDM type II, diverticulitis with perforation/colostomy since reversed, IBS, chronic seroma, CARLITOS/no device, polycystic ovaries, hypothyroid, season allergies History of Any Multi-Drug Resistant Organisms: None Reported Past Surgical History: Bariatric Surgery, Cholecystectomy, Uterine Ablation Additional Past Surgical History / Comment(s): 06/06/21 sleeve gastrectomy, rt Breast biopsy. bowel resection with colostomy/ later colostomy reversal, abdominal surgery to remove scar tissue, EGD, colonoscopy, back pain procedures uterine ablation, lysis of adhesions 07/11/22 Past Anesthesia/Blood Transfusion Reactions: No Reported Reaction Additional Past Anesthesia/Blood Transfusion Reaction / Comment(s): no hx blood transfusion, received monoclonal antibodies in Feb 2021 Past Psychological History: Anxiety, Bipolar, Depression Smoking Status: Never smoker Past Alcohol Use History: Occasional Past Drug Use History: None Reported - Past Family History Mother History Unknown: Yes Family Medical History: COPD Additional Family Medical History / Comment(s): Mother from COPD at the age of 55 yrs. Brother(s) Family Medical History: Diabetes Mellitus Father Family Medical History: Unable to Obtain General Exam Limitations: no limitations General appearance: alert, in no apparent distress Head exam: Present: atraumatic, normocephalic, normal inspection Eye exam: Present: normal appearance, PERRL, EOMI. Absent: scleral icterus, conjunctival injection, periorbital swelling ENT exam: Present: normal exam, mucous membranes moist Neck exam: Present: normal inspection. Absent: tenderness, meningismus, lymphadenopathy Respiratory exam: Present: normal lung sounds bilaterally. Absent: respiratory distress, wheezes, rales, rhonchi, stridor Cardiovascular Exam: Present: regular rate, normal rhythm, normal heart sounds. Absent: systolic murmur, diastolic murmur, rubs, gallop, clicks GI/Abdominal exam: Present: soft, normal bowel sounds. Absent: distended, tenderness, guarding, rebound, rigid Extremities exam: Present: normal inspection, full ROM, normal capillary refill. Absent: tenderness, pedal edema, joint swelling, calf tenderness Back exam: Present: normal inspection Neurological exam: Present: alert, oriented X3, CN II-XII intact Psychiatric exam: Present: normal affect, normal mood Skin exam: Present: warm, dry, intact, normal color. Absent: rash Course Vital Signs 02/02/24 16:00 Temperature 98.1 F Pulse Rate 76 Respiratory 18 Rate Blood Pressure 123/77 O2 Sat by Pulse 100 Oximetry - Reevaluation(s) Reevaluation #1: 02/02/24 16:28 Records reviewed Reevaluation #2: 02/02/24 16:28 Patient symptoms are unchanged Reevaluation #3: 02/02/24 16:29 Patient symptoms are improved Reevaluation #4: Was pt. sent in by a medical professional or institution (, PA, ASSISTANT PROFESSOR OF COMMUNICATION, urgent care, hospital, or snf...) When possible be specific @ -no Did you speak to anyone other than the patient for history (EMS, parent, family, police, friend...)? What history was obtained from this source @ -no Did you review nursing and triage notes (agree or disagree)? Why? @ -agree Are old charts reviewed (outside hosp., previous admission, EMS record, old EKG, old radiological studies, urgent care reports/EKG's, snf records)? Report findings @ -yes Differential Diagnosis (chest pain, altered mental status, abdominal pain women, abdominal pain men, vaginal bleeding, weakness, fever, dyspnea, syncope, headache, dizziness, GI bleed, back pain, seizure, CVA, palpatations, mental health, musculoskeletal)? @ -prior EKG interpreted by me (3pts min.). @ -no X-rays interpreted by me (1pt min.). @ -no CT interpreted by me (1pt min.). @ -no U/S interpreted by me (1pt. min.). @ -no What testing was considered but not performed or refused? (CT, X-rays, U/S, labs)? Why? @ -none What meds were considered but not given or refused? Why? @ -none Did you discuss the management of the patient with other professionals (professionals i.e. , PA, ASSISTANT PROFESSOR OF COMMUNICATION, lab, RT, psych nurse, social sciences instructor, intellectual property lawyer, teacher, chief juvenile probation officer, home health care case manager)? Give summary @ -no Was smoking cessation discussed for >3mins.? @ -no Was critical care preformed (if so, how long)? @ -no Were there social determinants of health that impacted care today? How? (Homelessness, low income, unemployed, alcoholism, drug addiction, transportation, low edu. Level, literacy, decrease access to med. care, half-way, rehab)? @ -none Was there de-escalation of care discussed even if they declined (Discuss DNR or withdrawal of care, Hospice)? DNR status @ -no What co-morbidities impacted this encounter? (DM, HTN, Smoking, COPD, CAD, Cancer, CVA, ARF, Chemo, Hep., AIDS, mental health diagnosis, sleep apnea, morbid obesity)? @ -none Was patient admitted / discharged? Hospital course, mention meds given and route, prescriptions, significant lab abnormalities, going to OR and other pertinent info. @ - 38 female to the ER for evaluation patient presents today for evaluation regards to severe headache and migraine headache. Patient's headache is improved and can be discharged home Discharge Undiagnosed new problem with uncertain prognosis? @ -no Drug Therapy requiring intensive monitoring for toxicity (Heparin, Nitro, Insulin, Cardizem)? @ -no Were any procedures done? @ -no Diagnosis/symptom? @ -headache and migraine Acute, or Chronic, or Acute on Chronic? @ -Acute Uncomplicated (without systemic symptoms) or Complicated (systemic symptoms)? @ -Complicated Side effects of treatment? @ -no Exacerbation, Progression, or Severe Exacerbation? @ -exacerbation Poses a threat to life or bodily function? How? (Chest pain, [place], OR, pneumonia, PE, COPD, DKA, ARF, appy, cholecystitis, CVA, Diverticulitis, Homicidal, Suicidal, threat to staff... and all critical care pts) @ -yes with headache Reevaluation #5: Differential Headache: Migraine, tension, cluster, carbon monoxide, central venous thrombosis, pension karma temporal arteritis, acute closure glaucoma, intercranial hemorrhage, mastoiditis, sinusitis, head injury, this is not meant to be an all-inclusive list. Medical Decision Making - Medical Decision Making 38 female to the ER for evaluation patient presents today for evaluation regards to severe headache and migraine headache. Patient's headache is improved and can be discharged home Disposition Clinical Impression: Migraine headache Disposition: HOME SELF-CARE Condition: Fair Instructions (If sedation given, give patient instructions): Acute Headache (ED) Is patient prescribed a controlled substance at d/c from ED?: No Referrals: Alfred Varela [Primary Care Provider] - 1-2 days Time of Disposition: 16:20
[2024-02-02] MEDS: ONDANSETRON 4 MG TAB PO STA (16:56)
== END 2024-02-02 17:34 | disposition home or self-care (01) ==
LOC: EC 15:54
CPT/HCPCS: 96372; 99283

== ENCOUNTER → 2024-02-11 | Outpatient (CLI) | payer BC ==
[2024-02-11 08:49] VITALS: BP 116/81; PULSE 76; RESP 16; TEMP 97.9; BMI 32.1
== END | disposition home or self-care (01) ==
LOC: BARWHC3 08:17
PROVIDERS: ATTEND Surgery
DX: E66.01 Morbid (severe) obesity due to excess calories (principal)
CPT/HCPCS: 99211

== ENCOUNTER 2024-02-16 18:10 | Emergency (ER) | payer BC ==
[2024-02-16 18:29] VITALS: TEMP 98.2
--- NOTE | 2024-02-16 18:45 | ED ---
Recheck HPI - General Chief Complaint: Headache Stated Complaint: neuro symptoms, nausea Time Seen by Provider: 02/16/24 18:11 Source: patient, RN notes reviewed, old records reviewed Mode of arrival: ambulatory - History of Present Illness Initial Comments: This is a 38-year-old female to the ER for evaluation of recurrent severe headaches and migraines. Patient is here for pain control MD Complaint: medication refill request -: days(s) Returns Today for: persistent/worsening pain related to initial visit Symptoms Since Prior Visit: worsening pain Context: planned re-check Associated Symptoms: none - Related Data Home Medications Medication Instructions Recorded Confirmed Levothyroxine Sodium [Synthroid] 50 mcg PO DAILY 05/05/14 02/11/24 Cetirizine HCl [Zyrtec] 10 mg PO DAILY 08/30/19 02/11/24 Pregabalin [Lyrica] 225 mg PO BID 08/30/19 02/11/24 Atogepant [Qulipta] 60 mg PO HS 11/28/21 02/11/24 Nystatin 100,000 Unit/gm Powd 1 applic TOPICAL BID PRN 12/12/21 02/11/24 [Mycostatin Powder] Ergocalciferol (Vitamin D2) 1,250 mcg PO GARCIA 05/19/22 02/11/24 [Drisdol (50,000 Iu)] Fluconazole 200 mg PO GARCIA 05/19/22 02/11/24 Acetaminophen Tab [Tylenol] 650 mg PO Q6H PRN 10/02/22 02/11/24 Lasmiditan Succinate [Reyvow] 50 mg PO DAILY PRN 10/02/22 02/11/24 Metoclopramide [Reglan] 10 mg PO DAILY PRN 10/02/22 02/11/24 Ketorolac [Toradol] 10 mg PO Q6HR PRN 10/30/22 02/11/24 buPROPion XL [Wellbutrin XL] 300 mg PO DAILY 01/08/23 02/11/24 Vit No.179/Iron/Folic 1 each PO DAILY 07/02/23 02/11/24 [ Tablet] Biotin 5,000 mcg PO DAILY 11/19/23 02/11/24 HYDROcodone/APAP 10-325MG [Royal 1 tab PO BID PRN 11/19/23 02/11/24 10-325] Melatonin 30 mg PO HS PRN 11/19/23 02/11/24 Lisdexamfetamine Dimesylate 50 mg PO QAM 02/11/24 02/11/24 [Vyvanse] methocarbamoL [Robaxin] 750 mg PO BID PRN 02/11/24 02/11/24 Allergies Allergy/AdvReac Type Severity Reaction Status Date / Time codeine AdvReac Hallucinati Verified 02/16/24 18:29 ons tramadol AdvReac Hallucinati Verified 02/16/24 18:29 ons valacyclovir HCl AdvReac BLURRED Verified 02/16/24 18:29 [From Valtrex] VISION Review of Systems ROS Statement: Those systems with pertinent positive or pertinent negative responses have been documented in the HPI. ROS Other: All systems not noted in ROS Statement are negative. Past Medical History Past Medical History: Asthma, Diabetes Mellitus, Fibromyalgia, GERD/Reflux, Sleep Apnea/CPAP/BIPAP, Thyroid Disorder Additional Past Medical History / Comment(s): Migraines with aura, DDD, NIDDM type II, diverticulitis with perforation/colostomy since reversed, IBS, chronic seroma, CARLITOS/no device, polycystic ovaries, hypothyroid, season allergies History of Any Multi-Drug Resistant Organisms: None Reported Past Surgical History: Bariatric Surgery, Cholecystectomy, Hysterectomy, Uterine Ablation Additional Past Surgical History / Comment(s): 06/06/21 sleeve gastrectomy, rt Breast biopsy. bowel resection with colostomy/ later colostomy reversal, abdominal surgery to remove scar tissue, EGD, colonoscopy, back pain procedures uterine ablation, lysis of adhesions 07/11/22, 02/04/24-laparscopic hysterectomy Past Anesthesia/Blood Transfusion Reactions: No Reported Reaction Additional Past Anesthesia/Blood Transfusion Reaction / Comment(s): no hx blood transfusion, received monoclonal antibodies in Feb 2021 Past Psychological History: Anxiety, Bipolar, Depression Smoking Status: Never smoker Past Alcohol Use History: Occasional Past Drug Use History: None Reported - Past Family History Mother History Unknown: Yes Family Medical History: COPD Additional Family Medical History / Comment(s): Mother from COPD at the age of 55 yrs. Brother(s) Family Medical History: Diabetes Mellitus Father Family Medical History: Unable to Obtain General Exam General appearance: alert, in no apparent distress Head exam: Present: atraumatic, normocephalic, normal inspection Eye exam: Present: normal appearance, PERRL, EOMI. Absent: scleral icterus, conjunctival injection, periorbital swelling ENT exam: Present: normal exam, mucous membranes moist Neck exam: Present: normal inspection. Absent: tenderness, meningismus, lymphadenopathy Respiratory exam: Present: normal lung sounds bilaterally. Absent: respiratory distress, wheezes, rales, rhonchi, stridor Cardiovascular Exam: Present: regular rate, normal rhythm, normal heart sounds. Absent: systolic murmur, diastolic murmur, rubs, gallop, clicks GI/Abdominal exam: Present: soft, normal bowel sounds. Absent: distended, tenderness, guarding, rebound, rigid Extremities exam: Present: normal inspection, full ROM, normal capillary refill. Absent: tenderness, pedal edema, joint swelling, calf tenderness Back exam: Present: normal inspection Neurological exam: Present: alert, oriented X3, CN II-XII intact Psychiatric exam: Present: normal affect, normal mood Skin exam: Present: warm, dry, intact, normal color. Absent: rash Course Vital Signs 02/16/24 02/16/24 02/16/24 18:25 19:28 20:04 Temperature 98.2 F Pulse Rate 76 66 73 Respiratory 18 19 18 Rate Blood Pressure 118/81 104/63 98/58 O2 Sat by Pulse 99 98 97 Oximetry - Reevaluation(s) Reevaluation #1: Medical record is reviewed Reevaluation #2: Patient symptoms are improved Reevaluation #3: Patient informed of results and questions answered Reevaluation #4: Was pt. sent in by a medical professional or institution (, PA, FLOOR INSPECTOR, urgent care, hospital, or intermediate...) When possible be specific @ -no Did you speak to anyone other than the patient for history (EMS, parent, family, police, friend...)? What history was obtained from this source @ -no Did you review nursing and triage notes (agree or disagree)? Why? @ -agree Are old charts reviewed (outside hosp., previous admission, EMS record, old EKG, old radiological studies, urgent care reports/EKG's, intermediate records)? Report findings @ -yes Differential Diagnosis (chest pain, altered mental status, abdominal pain women, abdominal pain men, vaginal bleeding, weakness, fever, dyspnea, syncope, headache, dizziness, GI bleed, back pain, seizure, CVA, palpatations, mental health, musculoskeletal)? @ -prior EKG interpreted by me (3pts min.). @ -no X-rays interpreted by me (1pt min.). @ -no CT interpreted by me (1pt min.). @ -no U/S interpreted by me (1pt. min.). @ -no What testing was considered but not performed or refused? (CT, X-rays, U/S, labs)? Why? @ -none What meds were considered but not given or refused? Why? @ -none Did you discuss the management of the patient with other professionals (professionals i.e. DrGladis, PA, FLOOR INSPECTOR, lab, RT, psych nurse, oncology social worker, pre kindergarten teacher, teacher, photographic intelligence officer, case sealer)? Give summary @ -no Was smoking cessation discussed for >3mins.? @ -no Was critical care preformed (if so, how long)? @ -no Were there social determinants of health that impacted care today? How? (Homelessness, low income, unemployed, alcoholism, drug addiction, transportation, low edu. Level, literacy, decrease access to med. care, nursing home, rehab)? @ -none Was there de-escalation of care discussed even if they declined (Discuss DNR or withdrawal of care, Hospice)? DNR status @ -no What co-morbidities impacted this encounter? (DM, HTN, Smoking, COPD, CAD, Cancer, CVA, ARF, Chemo, Hep., AIDS, mental health diagnosis, sleep apnea, morbid obesity)? @ -none Was patient admitted / discharged? Hospital course, mention meds given and route, prescriptions, significant lab abnormalities, going to OR and other pertinent info. @ -38 female to ER with recurrent headache improved here in the ER and can be discharged home Discharge Undiagnosed new problem with uncertain prognosis? @ -no Drug Therapy requiring intensive monitoring for toxicity (Heparin, Nitro, Insulin, Cardizem)? @ -no Were any procedures done? @ -no Diagnosis/symptom? @ -Recurrent headache Acute, or Chronic, or Acute on Chronic? @ -Acute Uncomplicated (without systemic symptoms) or Complicated (systemic symptoms)? @ -Complicated Side effects of treatment? @ -no Exacerbation, Progression, or Severe Exacerbation? @ -exacerbation Poses a threat to life or bodily function? How? (Chest pain, [place], [place], pneumonia, PE, COPD, DKA, ARF, appy, cholecystitis, CVA, Diverticulitis, Homicidal, Suicidal, threat to staff... and all critical care pts) @ -no Reevaluation #5: Differential Headache: Migraine, tension, cluster, carbon monoxide, central venous thrombosis, pension karma temporal arteritis, acute closure glaucoma, intercranial hemorrhage, mastoiditis, sinusitis, head injury, this is not meant to be an all-inclusive list. Medical Decision Making - Medical Decision Making 38 female to ER with recurrent headache improved here in the ER and can be discharged home Disposition Clinical Impression: Migraine headache Disposition: HOME SELF-CARE Condition: Fair Instructions (If sedation given, give patient instructions): Acute Headache (ED) Is patient prescribed a controlled substance at d/c from ED?: No Referrals: Alfred Varela [Primary Care Provider] - 1-2 days Time of Disposition: 19:30
[2024-02-16] MEDS: diphenhydrAMINE 50 MG CAP PO STA (19:01)
[2024-02-16] MEDS: HYDROmorphone 1 MG/ML 1 ML SYRINGE IM STA (19:03)
[2024-02-16] MEDS: PROCHLORPERAZINE 5 MG TAB PO STA (19:31)
[2024-02-16 20:07] VITALS: BP 98/58; PULSE 73; RESP 18
== END 2024-02-16 20:11 | disposition home or self-care (01) ==
LOC: EC 18:10
CPT/HCPCS: 96372; 99283

== ENCOUNTER 2024-03-16 20:58 | Emergency (ER) | payer BC ==
[2024-03-16 21:02] VITALS: RESP 18; TEMP 98.2
--- NOTE | 2024-03-16 21:11 | ED ---
Headache HPI - General Chief Complaint: Headache Stated Complaint: Migraine, stutter Time Seen by Provider: 03/16/24 21:05 Source: RN notes reviewed, old records reviewed, Caregiver Mode of arrival: ambulatory Limitations: no limitations - History of Present Illness Initial Comments: This is a 38-year-old female to the ER for evaluation patient presents today for evaluation of headache weakness migraine headache history of migraines MD Complaint: headache, "migraine" -: days(s) Onset Description: sudden, gradual Location: right, left, frontal, temporal Severity: moderate Severity scale (1-10): 5 Quality: aching, throbbing Consistency: constant, intermittent Improves With: nothing, cold therapy Worsens With: none Associated Symptoms: nausea - Related Data Home Medications Medication Instructions Recorded Confirmed Levothyroxine Sodium [Synthroid] 50 mcg PO DAILY 05/05/14 02/11/24 Cetirizine HCl [Zyrtec] 10 mg PO DAILY 08/30/19 02/11/24 Pregabalin [Lyrica] 225 mg PO BID 08/30/19 02/11/24 Atogepant [Qulipta] 60 mg PO HS 11/28/21 02/11/24 Nystatin 100,000 Unit/gm Powd 1 applic TOPICAL BID PRN 12/12/21 02/11/24 [Mycostatin Powder] Ergocalciferol (Vitamin D2) 1,250 mcg PO GARCIA 05/19/22 02/11/24 [Drisdol (50,000 Iu)] Fluconazole 200 mg PO GARCIA 05/19/22 02/11/24 Acetaminophen Tab [Tylenol] 650 mg PO Q6H PRN 10/02/22 02/11/24 Lasmiditan Succinate [Reyvow] 50 mg PO DAILY PRN 10/02/22 02/11/24 Metoclopramide [Reglan] 10 mg PO DAILY PRN 10/02/22 02/11/24 Ketorolac [Toradol] 10 mg PO Q6HR PRN 10/30/22 02/11/24 buPROPion XL [Wellbutrin XL] 300 mg PO DAILY 01/08/23 02/11/24 Vit No.179/Iron/Folic 1 each PO DAILY 07/02/23 02/11/24 [ Tablet] Biotin 5,000 mcg PO DAILY 11/19/23 02/11/24 HYDROcodone/APAP 10-325MG [[place]borne 1 tab PO BID PRN 11/19/23 02/11/24 10-325] Melatonin 30 mg PO HS PRN 11/19/23 02/11/24 Lisdexamfetamine Dimesylate 50 mg PO QAM 02/11/24 02/11/24 [Vyvanse] methocarbamoL [Robaxin] 750 mg PO BID PRN 02/11/24 02/11/24 Allergies Allergy/AdvReac Type Severity Reaction Status Date / Time cephalexin [From Keflex] Allergy Rash/Hives Verified 03/16/24 21:02 codeine AdvReac Hallucinati Verified 03/16/24 21:02 ons tramadol AdvReac Hallucinati Verified 03/16/24 21:02 ons valacyclovir HCl AdvReac BLURRED Verified 03/16/24 21:02 [From Valtrex] VISION Review of Systems ROS Statement: Those systems with pertinent positive or pertinent negative responses have been documented in the HPI. ROS Other: All systems not noted in ROS Statement are negative. Past Medical History Past Medical History: Asthma, Diabetes Mellitus, Fibromyalgia, GERD/Reflux, Sleep Apnea/CPAP/BIPAP, Thyroid Disorder Additional Past Medical History / Comment(s): Migraines with aura, DDD, NIDDM type II, diverticulitis with perforation/colostomy since reversed, IBS, chronic seroma, CARLITOS/no device, polycystic ovaries, hypothyroid, season allergies History of Any Multi-Drug Resistant Organisms: None Reported Past Surgical History: Bariatric Surgery, Cholecystectomy, Hysterectomy, Uterine Ablation Additional Past Surgical History / Comment(s): 06/06/21 sleeve gastrectomy, rt Breast biopsy. bowel resection with colostomy/ later colostomy reversal, abdominal surgery to remove scar tissue, EGD, colonoscopy, back pain procedures uterine ablation, lysis of adhesions 07/11/22, 02/04/24-laparscopic hysterectomy Past Anesthesia/Blood Transfusion Reactions: No Reported Reaction Additional Past Anesthesia/Blood Transfusion Reaction / Comment(s): no hx blood transfusion, received monoclonal antibodies in Feb 2021 Past Psychological History: Anxiety, Bipolar, Depression Smoking Status: Never smoker Past Alcohol Use History: Occasional Past Drug Use History: None Reported - Past Family History Mother History Unknown: Yes Family Medical History: COPD Additional Family Medical History / Comment(s): Mother from COPD at the age of 55 yrs. Brother(s) Family Medical History: Diabetes Mellitus Father Family Medical History: Unable to Obtain General Exam Limitations: no limitations General appearance: alert, in no apparent distress Head exam: Present: atraumatic, normocephalic, normal inspection Eye exam: Present: normal appearance, PERRL, EOMI. Absent: scleral icterus, conjunctival injection, periorbital swelling ENT exam: Present: normal exam, mucous membranes moist Neck exam: Present: normal inspection. Absent: tenderness, meningismus, lymphadenopathy Respiratory exam: Present: normal lung sounds bilaterally. Absent: respiratory distress, wheezes, rales, rhonchi, stridor Cardiovascular Exam: Present: regular rate, normal rhythm, normal heart sounds. Absent: systolic murmur, diastolic murmur, rubs, gallop, clicks GI/Abdominal exam: Present: soft, normal bowel sounds. Absent: distended, tenderness, guarding, rebound, rigid Extremities exam: Present: normal inspection, full ROM, normal capillary refill. Absent: tenderness, pedal edema, joint swelling, calf tenderness Back exam: Present: normal inspection Neurological exam: Present: alert, oriented X3, CN II-XII intact Psychiatric exam: Present: normal affect, normal mood Skin exam: Present: warm, dry, intact, normal color. Absent: rash Course Vital Signs 03/16/24 03/16/24 21:00 21:40 Temperature 98.2 F Pulse Rate 71 75 Respiratory 18 18 Rate Blood Pressure 128/80 108/61 O2 Sat by Pulse 100 98 Oximetry - Reevaluation(s) Reevaluation #1: 03/16/24 21:10 Medical records reviewed Reevaluation #2: 03/16/24 21:10 Patient symptoms improved here in the ER Reevaluation #3: 03/16/24 21:10 Patient informed of results and questions answered Reevaluation #4: Was pt. sent in by a medical professional or institution (, PA, TOE STAPLER, urgent care, hospital, or residential...) When possible be specific @ -no Did you speak to anyone other than the patient for history (EMS, parent, family, police, friend...)? What history was obtained from this source @ -no Did you review nursing and triage notes (agree or disagree)? Why? @ -agree Are old charts reviewed (outside hosp., previous admission, EMS record, old EKG, old radiological studies, urgent care reports/EKG's, residential records)? Report findings @ -yes Differential Diagnosis (chest pain, altered mental status, abdominal pain women, abdominal pain men, vaginal bleeding, weakness, fever, dyspnea, syncope, headache, dizziness, GI bleed, back pain, seizure, CVA, palpatations, mental health, musculoskeletal)? @ -prior EKG interpreted by me (3pts min.). @ -no X-rays interpreted by me (1pt min.). @ -no CT interpreted by me (1pt min.). @ -no U/S interpreted by me (1pt. min.). @ -no What testing was considered but not performed or refused? (CT, X-rays, U/S, labs)? Why? @ -none What meds were considered but not given or refused? Why? @ -none Did you discuss the management of the patient with other professionals (professionals i.e. , PA, TOE STAPLER, lab, RT, psych nurse, social media project manager, community health nurse, teacher, philanthropy officer, medical case manager)? Give summary @ -no Was smoking cessation discussed for >3mins.? @ -no Was critical care preformed (if so, how long)? @ -no Were there social determinants of health that impacted care today? How? (Homelessness, low income, unemployed, alcoholism, drug addiction, transportation, low edu. Level, literacy, decrease access to med. care, nursing home, rehab)? @ -none Was there de-escalation of care discussed even if they declined (Discuss DNR or withdrawal of care, Hospice)? DNR status @ -no What co-morbidities impacted this encounter? (DM, HTN, Smoking, COPD, CAD, Cancer, CVA, ARF, Chemo, Hep., AIDS, mental health diagnosis, sleep apnea, morbid obesity)? @ -none Was patient admitted / discharged? Hospital course, mention meds given and route, prescriptions, significant lab abnormalities, going to OR and other pertinent info. @ - 38 female to the ER for evaluation of headache chronic headache headache resolved patient can be discharged home Discharge Undiagnosed new problem with uncertain prognosis? @ -no Drug Therapy requiring intensive monitoring for toxicity (Heparin, Nitro, Insulin, Cardizem)? @ -no Were any procedures done? @ -no Diagnosis/symptom? @ -Headache chronic pain Acute, or Chronic, or Acute on Chronic? @ -Acute Uncomplicated (without systemic symptoms) or Complicated (systemic symptoms)? @ -Complicated Side effects of treatment? @ -no Exacerbation, Progression, or Severe Exacerbation? @ -exacerbation Poses a threat to life or bodily function? How? (Chest pain, [place], [place], pneumonia, PE, COPD, DKA, ARF, appy, cholecystitis, CVA, Diverticulitis, Homicidal, Suicidal, threat to staff... and all critical care pts) @ -yes severe headache Reevaluation #5: Differential Headache: Migraine, tension, cluster, carbon monoxide, central venous thrombosis, pension karma temporal arteritis, acute closure glaucoma, intercranial hemorrhage, mastoiditis, sinusitis, head injury, this is not meant to be an all-inclusive list. Medical Decision Making - Medical Decision Making 38 female to the ER for evaluation of headache chronic headache headache resolved patient can be discharged home Disposition Clinical Impression: Cephalgia, Migraine headache Disposition: HOME SELF-CARE Condition: Fair Instructions (If sedation given, give patient instructions): Acute Headache (ED) Is patient prescribed a controlled substance at d/c from ED?: No Referrals: Alfred Varela [Primary Care Provider] - 1-2 days Time of Disposition: 21:15
[2024-03-16] MEDS: HYDROmorphone 1 MG/ML 1 ML SYRINGE IM STA (21:32)
[2024-03-16] MEDS: PROCHLORPERAZINE 5 MG TAB PO STA (21:33)
[2024-03-16] MEDS: diphenhydrAMINE 50 MG CAP PO STA (21:33)
[2024-03-16 21:41] VITALS: BP 108/61; PULSE 75
== END 2024-03-16 21:42 | disposition home or self-care (01) ==
LOC: EC 20:58
DX: G43.E09 Chronic migraine with aura, not intractable, without status migrainosus (principal); Z88.5 Allergy status to narcotic agent; Z88.1 Allergy status to other antibiotic agents; Z88.8 Allergy status to other drugs, medicaments and biological substances
CPT/HCPCS: 99283; 96372; S0183; J1171

== ENCOUNTER 2024-04-03 19:33 | Emergency (ER) | payer BC ==
[2024-04-03 19:40] VITALS: RESP 18; TEMP 98.2
--- NOTE | 2024-04-03 19:58 | ED ---
Back Pain HPI - General Chief Complaint: Back Pain/Injury Stated Complaint: LOW BACK PAIN/LEFT LEG Time Seen by Provider: 04/03/24 19:53 Source: patient, RN notes reviewed, old records reviewed Limitations: no limitations - History of Present Illness Initial Comments: This is s a 38-year-old female to the ER for evaluation of back pain chronic back pain patient well-known to this ER for chronic pain chronic migraine pain back pain and here for pain control MD Complaint: back pain -: days(s) Similar Symptoms Previously: Yes Place: home Radiation: buttocks, left leg Severity: severe Severity scale (1-10): 9 Quality: sharp Consistency: constant Improves With: none Worsens With: none Associated Symptoms: denies other symptoms - Related Data Home Medications Medication Instructions Recorded Confirmed Levothyroxine Sodium [Synthroid] 50 mcg PO DAILY 05/05/14 02/11/24 Cetirizine HCl [Zyrtec] 10 mg PO DAILY 08/30/19 02/11/24 Pregabalin [Lyrica] 225 mg PO BID 08/30/19 02/11/24 Atogepant [Qulipta] 60 mg PO HS 11/28/21 02/11/24 Nystatin 100,000 Unit/gm Powd 1 applic TOPICAL BID PRN 12/12/21 02/11/24 [Mycostatin Powder] Ergocalciferol (Vitamin D2) 1,250 mcg PO GARCIA 05/19/22 02/11/24 [Drisdol (50,000 Iu)] Fluconazole 200 mg PO GARCIA 05/19/22 02/11/24 Acetaminophen Tab [Tylenol] 650 mg PO Q6H PRN 10/02/22 02/11/24 Lasmiditan Succinate [Reyvow] 50 mg PO DAILY PRN 10/02/22 02/11/24 Metoclopramide [Reglan] 10 mg PO DAILY PRN 10/02/22 02/11/24 Ketorolac [Toradol] 10 mg PO Q6HR PRN 10/30/22 02/11/24 buPROPion XL [Wellbutrin XL] 300 mg PO DAILY 01/08/23 02/11/24 Vit No.179/Iron/Folic 1 each PO DAILY 07/02/23 02/11/24 [ Tablet] Biotin 5,000 mcg PO DAILY 11/19/23 02/11/24 HYDROcodone/APAP 10-325MG [[place] 1 tab PO BID PRN 11/19/23 02/11/24 10-325] Melatonin 30 mg PO HS PRN 11/19/23 02/11/24 Lisdexamfetamine Dimesylate 50 mg PO QAM 02/11/24 02/11/24 [Vyvanse] methocarbamoL [Robaxin] 750 mg PO BID PRN 02/11/24 02/11/24 Allergies Allergy/AdvReac Type Severity Reaction Status Date / Time cephalexin [From Keflex] Allergy Rash/Hives Verified 04/03/24 19:39 codeine AdvReac Hallucinati Verified 04/03/24 19:39 ons tramadol AdvReac Hallucinati Verified 04/03/24 19:39 ons valacyclovir HCl AdvReac BLURRED Verified 04/03/24 19:39 [From Valtrex] VISION Review of Systems ROS Statement: Those systems with pertinent positive or pertinent negative responses have been documented in the HPI. ROS Other: All systems not noted in ROS Statement are negative. Past Medical History Past Medical History: Asthma, Diabetes Mellitus, Fibromyalgia, GERD/Reflux, Sleep Apnea/CPAP/BIPAP, Thyroid Disorder Additional Past Medical History / Comment(s): Migraines with aura, DDD, NIDDM type II, diverticulitis with perforation/colostomy since reversed, IBS, chronic seroma, CARLITOS/no device, polycystic ovaries, hypothyroid, season allergies History of Any Multi-Drug Resistant Organisms: None Reported Past Surgical History: Bariatric Surgery, Cholecystectomy, Hysterectomy, Uterine Ablation Additional Past Surgical History / Comment(s): 06/06/21 sleeve gastrectomy, rt Breast biopsy. bowel resection with colostomy/ later colostomy reversal, abdominal surgery to remove scar tissue, EGD, colonoscopy, back pain procedures uterine ablation, lysis of adhesions 07/11/22, 02/04/24-laparscopic hysterectomy Past Anesthesia/Blood Transfusion Reactions: No Reported Reaction Additional Past Anesthesia/Blood Transfusion Reaction / Comment(s): no hx blood transfusion, received monoclonal antibodies in Feb 2021 Past Psychological History: Anxiety, Bipolar, Depression Smoking Status: Never smoker Past Alcohol Use History: Occasional Past Drug Use History: None Reported - Past Family History Mother History Unknown: Yes Family Medical History: COPD Additional Family Medical History / Comment(s): Mother from COPD at the age of 55 yrs. Brother(s) Family Medical History: Diabetes Mellitus Father Family Medical History: Unable to Obtain General Exam Limitations: no limitations General appearance: alert, in no apparent distress Head exam: Present: atraumatic, normocephalic, normal inspection Eye exam: Present: normal appearance, PERRL, EOMI. Absent: scleral icterus, conjunctival injection, periorbital swelling ENT exam: Present: normal exam, mucous membranes moist Neck exam: Present: normal inspection. Absent: tenderness, meningismus, lymphadenopathy Respiratory exam: Present: normal lung sounds bilaterally. Absent: respiratory distress, wheezes, rales, rhonchi, stridor Cardiovascular Exam: Present: regular rate, normal rhythm, normal heart sounds. Absent: systolic murmur, diastolic murmur, rubs, gallop, clicks GI/Abdominal exam: Present: soft, normal bowel sounds. Absent: distended, tenderness, guarding, rebound, rigid Extremities exam: Present: normal inspection, full ROM, normal capillary refill. Absent: tenderness, pedal edema, joint swelling, calf tenderness Back exam: Present: normal inspection Neurological exam: Present: alert, oriented X3, CN II-XII intact Psychiatric exam: Present: normal affect, normal mood Skin exam: Present: warm, dry, intact, normal color. Absent: rash Course Vital Signs 04/03/24 19:37 Temperature 98.2 F Pulse Rate 81 Respiratory 18 Rate Blood Pressure 142/83 O2 Sat by Pulse 100 Oximetry - Reevaluation(s) Reevaluation #1: 04/03/24 19:57 Medical records reviewed Reevaluation #2: 04/03/24 19:57 Patient symptoms unchanged Reevaluation #3: 04/03/24 19:57 Patient's pain is improved Reevaluation #4: Was pt. sent in by a medical professional or institution (, PA, CAMPUS SAFETY OFFICER, urgent care, hospital, or jail...) When possible be specific @ -no Did you speak to anyone other than the patient for history (EMS, parent, family, police, friend...)? What history was obtained from this source @ -no Did you review nursing and triage notes (agree or disagree)? Why? @ -agree Are old charts reviewed (outside hosp., previous admission, EMS record, old EKG, old radiological studies, urgent care reports/EKG's, jail records)? Report findings @ -yes Differential Diagnosis (chest pain, altered mental status, abdominal pain women, abdominal pain men, vaginal bleeding, weakness, fever, dyspnea, syncope, headache, dizziness, GI bleed, back pain, seizure, CVA, palpatations, mental health, musculoskeletal)? @ -prior EKG interpreted by me (3pts min.). @ -yes X-rays interpreted by me (1pt min.). @ -yes negative for acute disease CT interpreted by me (1pt min.). @ -no U/S interpreted by me (1pt. min.). @ -no What testing was considered but not performed or refused? (CT, X-rays, U/S, labs)? Why? @ -none What meds were considered but not given or refused? Why? @ -none Did you discuss the management of the patient with other professionals (professionals i.e. , PA, CAMPUS SAFETY OFFICER, lab, RT, psych nurse, social service worker, content producer, teacher, security flex officer, casework supervisor)? Give summary @ -no Was smoking cessation discussed for >3mins.? @ -no Was critical care preformed (if so, how long)? @ -no Were there social determinants of health that impacted care today? How? (Homelessness, low income, unemployed, alcoholism, drug addiction, transportation, low edu. Level, literacy, decrease access to med. care, fci, rehab)? @ -none Was there de-escalation of care discussed even if they declined (Discuss DNR or withdrawal of care, Hospice)? DNR status @ -no What co-morbidities impacted this encounter? (DM, HTN, Smoking, COPD, CAD, Cancer, CVA, ARF, Chemo, Hep., AIDS, mental health diagnosis, sleep apnea, morbid obesity)? @ -none Was patient admitted / discharged? Hospital course, mention meds given and route, prescriptions, significant lab abnormalities, going to OR and other pertinent info. @ - Undiagnosed new problem with uncertain prognosis? @ -no Drug Therapy requiring intensive monitoring for toxicity (Heparin, Nitro, Insulin, Cardizem)? @ -no Were any procedures done? @ -no Diagnosis/symptom? @ - Acute, or Chronic, or Acute on Chronic? @ -Acute Uncomplicated (without systemic symptoms) or Complicated (systemic symptoms)? @ -Complicated Side effects of treatment? @ -no Exacerbation, Progression, or Severe Exacerbation? @ -exacerbation Poses a threat to life or bodily function? How? (Chest pain, [place], [place], pneumonia, PE, COPD, DKA, ARF, appy, cholecystitis, CVA, Diverticulitis, Homicidal, Suicidal, threat to staff... and all critical care pts) @ -yes Reevaluation #5: Differential Back Pain: Strain, zoster, cauda equina syndrome, epidural abscess, vertebral osteomyelitis, discitis, fracture, subluxation, disc herniation, DJD, spinal stenosis, dissection, AAA, pancreatitis, peptic ulcer disease, pyelonephritis, kidney stone, this is not meant to be an all-inclusive list. Medical Decision Making - Medical Decision Making 38 female to the ER for evaluation of severe acute back pain acute on chronic back pain patient has pain control can be discharged home Disposition Clinical Impression: Chronic back pain Disposition: HOME SELF-CARE Condition: Good Instructions (If sedation given, give patient instructions): Acute Low Back Pain (ED) Is patient prescribed a controlled substance at d/c from ED?: No Referrals: Prerna Vicente NPC [Primary Care Provider] - 1-2 days Time of Disposition: 20:00
[2024-04-03] MEDS: dexAMETHasone 2 MG TAB PO STA (20:15)
[2024-04-03] MEDS: HYDROmorphone 1 MG/ML 1 ML SYRINGE IM STA (20:15)
[2024-04-03] MEDS: PROCHLORPERAZINE 5 MG TAB PO STA (20:16)
[2024-04-03] MEDS: diphenhydrAMINE 50 MG CAP PO STA (20:16)
[2024-04-03 20:19] VITALS: BP 133/85; PULSE 84
== END 2024-04-03 20:20 | disposition home or self-care (01) ==
LOC: EC 19:33
DX: G89.29 Other chronic pain (principal); M54.9 Dorsalgia, unspecified; Z88.1 Allergy status to other antibiotic agents; Z88.5 Allergy status to narcotic agent; Z88.8 Allergy status to other drugs, medicaments and biological substances
CPT/HCPCS: 99283; 96372; S0183; J1171; J8540

== ENCOUNTER 2024-04-16 15:28 | Emergency (ER) | payer BC ==
[2024-04-16 15:37] VITALS: TEMP 98.1
--- NOTE | 2024-04-16 16:27 | ED ---
General Adult HPI - General Chief complaint: Dizziness Stated complaint: tongue swelling, cynthia hand numbeness Time Seen by Provider: 04/16/24 15:45 Source: patient Mode of arrival: ambulatory Limitations: no limitations - History of Present Illness Initial comments: Dictation was produced using [employer] dictation software. please excuse any grammatical, word or spelling errors. Chief Complaint: 38-year-old female well-known to the emergency department p resents to the ER for occipital head pressure, tongue numbness and stuttering speech History of Present Illness: Patient is 38-year-old female presents to the emergency department yet again for neurologic issues. Patient is well-known to the ER for multiple visitations for neurologic complaints. States that she was helping her boyfriend get the snowplow ready for some upcoming snow when all of a sudden she felt little lightheaded and fell to the ground. Patient states that she was so weak that she was unable to get up. She had to crawl. Patient states shortly after she had some tongue numbness and stuttering speech. She complains of some pressure to her occipital head. Denies any significant headache. She does have history of complex migraines. The ROS documented in this emergency department record has been reviewed and confirmed by me. Those systems with pertinent positive or negative responses have been documented in the HPI. All other systems are other negative and/or noncontributory. - Related Data Home Medications Medication Instructions Recorded Confirmed Levothyroxine Sodium [Synthroid] 50 mcg PO DAILY 05/05/14 02/11/24 Cetirizine HCl [Zyrtec] 10 mg PO DAILY 08/30/19 02/11/24 Pregabalin [Lyrica] 225 mg PO BID 08/30/19 02/11/24 Atogepant [Qulipta] 60 mg PO HS 11/28/21 02/11/24 Nystatin 100,000 Unit/gm Powd 1 applic TOPICAL BID PRN 12/12/21 02/11/24 [Mycostatin Powder] Ergocalciferol (Vitamin D2) 1,250 mcg PO GARCIA 05/19/22 02/11/24 [Drisdol (50,000 Iu)] Fluconazole 200 mg PO GARCIA 05/19/22 02/11/24 Acetaminophen Tab [Tylenol] 650 mg PO Q6H PRN 10/02/22 02/11/24 Lasmiditan Succinate [Reyvow] 50 mg PO DAILY PRN 10/02/22 02/11/24 Metoclopramide [Reglan] 10 mg PO DAILY PRN 10/02/22 02/11/24 Ketorolac [Toradol] 10 mg PO Q6HR PRN 10/30/22 02/11/24 buPROPion XL [Wellbutrin XL] 300 mg PO DAILY 01/08/23 02/11/24 Vit No.179/Iron/Folic 1 each PO DAILY 07/02/23 02/11/24 [ Tablet] Biotin 5,000 mcg PO DAILY 11/19/23 02/11/24 HYDROcodone/APAP 10-325MG [[place] 1 tab PO BID PRN 11/19/23 02/11/24 10-325] Melatonin 30 mg PO HS PRN 11/19/23 02/11/24 Lisdexamfetamine Dimesylate 50 mg PO QAM 02/11/24 02/11/24 [Vyvanse] methocarbamoL [Robaxin] 750 mg PO BID PRN 02/11/24 02/11/24 Allergies Allergy/AdvReac Type Severity Reaction Status Date / Time cephalexin [From Keflex] Allergy Rash/Hives Verified 04/16/24 15:38 codeine AdvReac Hallucinati Verified 04/16/24 15:38 ons tramadol AdvReac Hallucinati Verified 04/16/24 15:38 ons valacyclovir HCl AdvReac BLURRED Verified 04/16/24 15:38 [From Valtrex] VISION Review of Systems ROS Statement: Those systems with pertinent positive or pertinent negative responses have been documented in the HPI. ROS Other: All systems not noted in ROS Statement are negative. Past Medical History Past Medical History: Asthma, Diabetes Mellitus, Fibromyalgia, GERD/Reflux, Sleep Apnea/CPAP/BIPAP, Thyroid Disorder Additional Past Medical History / Comment(s): Migraines with aura, DDD, NIDDM type II, diverticulitis with perforation/colostomy since reversed, IBS, chronic seroma, CARLITOS/no device, polycystic ovaries, hypothyroid, season allergies History of Any Multi-Drug Resistant Organisms: None Reported Past Surgical History: Bariatric Surgery, Cholecystectomy, Hysterectomy, Uterine Ablation Additional Past Surgical History / Comment(s): 1/24/22 sleeve gastrectomy, rt Breast biopsy. bowel resection with colostomy/ later colostomy reversal, abdominal surgery to remove scar tissue, EGD, colonoscopy, back pain procedures uterine ablation, lysis of adhesions 07/11/22, 02/04/24-laparscopic hysterectomy Past Anesthesia/Blood Transfusion Reactions: No Reported Reaction Additional Past Anesthesia/Blood Transfusion Reaction / Comment(s): no hx blood transfusion, received monoclonal antibodies in Feb 2021 Past Psychological History: Anxiety, Bipolar, Depression Smoking Status: Never smoker Past Alcohol Use History: Occasional Past Drug Use History: None Reported - Past Family History Mother History Unknown: Yes Family Medical History: COPD Additional Family Medical History / Comment(s): Mother from COPD at the age of 55 yrs. Brother(s) Family Medical History: Diabetes Mellitus Father Family Medical History: Unable to Obtain General Exam - General Exam Comments Initial Comments: PHYSICAL EXAM: General Impression: Alert and oriented x3, not in acute distress HEENT: Normocephalic atraumatic, extra-ocular movements intact, pupils equal and reactive to light bilaterally, mucous membranes moist. Cardiovascular: Heart regular rate and rhythm Chest: Able to complete full sentences, no retractions, no tachypnea Abdomen: abdomen soft, non-tender, non-distended, no organomegaly Musculoskeletal: Pulses present and equal in all extremities, no peripheral edema Motor: no focal deficits noted Neurological: CN II-XII grossly intact, no focal motor or sensory deficits noted Skin: Intact with no visualized rashes Psych: Anxious, tearful Limitations: no limitations Course Vital Signs 04/16/24 15:34 Temperature 98.1 F Pulse Rate 95 Respiratory 20 Rate Blood Pressure 109/73 O2 Sat by Pulse 99 Oximetry EKG Findings - EKG Comments: EKG Findings:: My EKG interpretation: Ventricular rate 84, sinus rhythm,. 152, cures 90, QTc 4 1. No GA prolongation, no QTC prolongation, no ST or T-wave changes noted. Overall, this EKG is unremarkable Medical Decision Making - Medical Decision Making Was pt. sent in by a medical professional or institution (, PA, ATMOSPHERIC DRIER TENDER, urgent care, hospital, or retirement...) When possible be specific @ -No Did you speak to anyone other than the patient for history (EMS, parent, family, police, friend...)? What history was obtained from this source @ -No Did you review nursing and triage notes (agree or disagree)? Why? @ -I reviewed and agree with nursing and triage notes Were old charts reviewed (outside hosp., previous admission, EMS record, old EKG, old radiological studies, urgent care reports/EKG's, retirement records)? Report findings @ -No old charts were reviewed Differential Diagnosis (chest pain, altered mental status, abdominal pain women, abdominal pain men, vaginal bleeding, musculoskeletal, weakness, fever, dyspnea, syncope, headache, dizziness, GI bleed, back pain, seizure, CVA, palpatations, mental health)? @ -M differential headache EKG interpreted by me (3pts min.). @ -None done X-rays interpreted by me (1pt min.). @ -None done CT interpreted by me (1pt min.). @ -None done U/S interpreted by me (1pt. min.). @ -None done What testing was considered but not performed or refused? (CT, X-rays, U/S, labs)? Why? @ -None What meds were considered but not given or refused? Why? @ -None Was smoking cessation discussed for >3mins.? @ -No Were there social determinants of health that impacted care today? How? (Homelessness, low income, unemployed, alcoholism, drug addiction, transportation, low edu. Level, literacy, decrease access to med. care, detention, r ehab)? @ -No Was there de-escalation of care discussed even if they declined (Discuss DNR or withdrawal of care, Hospice)? DNR status @ -No What co-morbidities impacted this encounter? (DM, HTN, Smoking, COPD, CAD, Cancer, CVA, ARF, Chemo, Hep., AIDS, mental health diagnosis, sleep apnea, morbid obesity)? @ -None Was patient admitted / discharged? Hospital course, mention meds given and route, prescriptions, significant lab abnormalities, going to OR and other pertinent info. @ -38-year-old female with chronic neurologic issues presents to the ER for headache, tongue numbness and weakness. States that these are her usual symptoms of her migraines. Vital signs upon arrival are within acceptable limits. Physical examination is benign. Patient is well-known to the emergency department for multiple visitations. Laboratory evaluation negative. CT brain is negative. Patient given headache cocktail with improvement of symptoms. Patient discharged told to follow-up with her primary care doctor. Did you discuss the management of the patient with other professionals (professionals i.e. , PA, ATMOSPHERIC DRIER TENDER, lab, RT, psych nurse, high school social studies teacher, awning craftsman, teacher, geological technical officer, watch caser)? Give summary @ -No Was critical care preformed (if so, how long)? @ -No Undiagnosed new problem with uncertain prognosis? @ -No Drug Therapy requiring intensive monitoring for toxicity (Heparin, Nitro, Insulin, Cardizem)? @ -No Were any procedures done? @ -No Diagnosis/symptom? Acute, or Chronic, or Acute on Chronic? Uncomplicated (without systemic symptoms) or Complicated (systemic symptoms)? @ -Generalized weakness Side effects of treatment? @ -No Exacerbation, Progression, or Severe Exacerbation? @ -No Poses a threat to life or bodily function? How? (Chest pain, [place], [place], pneumonia, PE, COPD, DKA, ARF, appy, cholecystitis, CVA, Diverticulitis, Homicidal, Suicidal, threat to staff... and all critical care pts) @ -No - Lab Data Result diagrams: 04/16/24 16:33 04/16/24 19:25 Lab Results 04/16/24 04/16/24 Range/Units 16:33 19:25 WBC 9.3 (3.8-10.6) k/uL RBC 5.82 H (3.80-5.40) m/uL Hgb 16.9 H (11.4-16.0) gm/dL Hct 53.0 H (34.0-46.0) % MCV 91.0 (80.0-100.0) fL MCH 29.1 (25.0-35.0) pg MCHC 32.0 (31.0-37.0) g/dL RDW 12.7 (11.5-15.5) % Plt Count 253 (150-450) k/uL MPV 8.1 Neutrophils % 73 % Lymphocytes % 20 % Monocytes % 4 % Eosinophils % 2 % Basophils % 1 % Neutrophils # 6.8 (1.3-7.7) k/uL Lymphocytes # 1.8 (1.0-4.8) k/uL Monocytes # 0.4 (0-1.0) k/uL Eosinophils # 0.2 (0-0.7) k/uL Basophils # 0.1 (0-0.2) k/uL Sodium 139 (137-145) mmol/L Potassium 4.7 (3.5-5.1) mmol/L Chloride 104 (98-107) mmol/L Carbon Dioxide 30 (22-30) mmol/L Anion Gap 5 mmol/L BUN 21 H (7-17) mg/dL Creatinine 0.78 (0.52-1.04) mg/dL Est GFR (CKD-EPI)AfAm >90 (>60 ml/min/1.73 sqM) Est GFR (CKD-EPI)NonAf >90 (>60 ml/min/1.73 sqM) Glucose 97 (74-99) mg/dL Calcium 9.0 (8.4-10.2) mg/dL Disposition Clinical Impression: Weakness Disposition: HOME SELF-CARE Condition: Good Instructions (If sedation given, give patient instructions): Dizziness (ED) Is patient prescribed a controlled substance at d/c from ED?: No Referrals: Alfred Varela [Primary Care Provider] - 1-2 days Time of Disposition: 20:29
[2024-04-16] MEDS: ONDANSETRON 4 MG/2 ML VIAL IVP STA (16:40)
[2024-04-16] MEDS: diphenhydrAMINE 50 MG/ML 1 ML VIAL IVP STA (16:41)
[2024-04-16] MEDS: KETOROLAC 15 MG/ML 1 ML VIAL IVP STA (16:41)
[2024-04-16] MEDS: HYDROmorphone 1 MG/ML 1 ML SYRINGE IVP STA (16:43)
[2024-04-16] MEDS: SODIUM CHLORIDE 0.9% 1,000 ML IV STA (16:46)
[2024-04-16 16:50] LABS: Basophils # (A) 0.1 k/uL (0-0.2); Basophils % (A) 1 %; Eosinophils # (A) 0.2 k/uL (0-0.7); Eosinophils % (A) 2 %; HGB 16.9 gm/dL (11.4-16.0); Lymphocytes # (A) 1.8 k/uL (1.0-4.8); Lymphocytes % (A) 20 %; MCH 29.1 pg (25.0-35.0); Mean Platelet Volume 8.1; Monocytes # (A) 0.4 k/uL (0-1.0); Monocytes % (A) 4 %; Neutrophils # (A) 6.8 k/uL (1.3-7.7); Neutrophils % (A) 73 %; Platelet Count 253 k/uL (150-450); RBC 5.82 m/uL (3.80-5.40); RDW 12.7 % (11.5-15.5); WBC 9.3 k/uL (3.8-10.6)
--- NOTE | 2024-04-16 17:40 | CT ---
EXAMINATION TYPE: CT brain wo con DATE OF EXAM: 04/16/2024 COMPARISON: CT brain July 04, 2023 CLINICAL INDICATION: Female, 38 years old with history of YOUNG; PHH, YOUNG. N/V. Tongue numbness. TECHNIQUE: CT of the brain performed without contrast with sagittal and coronal reformats. CT DLP: 1076.[address] CTDI: 49 mGy Automated exposure control for dose reduction was used. FINDINGS: There is no acute intracranial hemorrhage, mass effect, or midline shift identified. The ventricles and sulci are stable and within normal limits in size. Celis-white matter differentiation is maintaine d. The globes are intact and the visualized sinuses are clear. IMPRESSION: No acute intracranial hemorrhage, mass effect, or midline shift is seen. No significant change from r ecent prior. [facility], , 04/16/2024 5:38 PM
[2024-04-16 20:03] LABS: African American GFR (CKD) >90 (>60 ml/min/1.73 sqM); Anion Gap 5 mmol/L; Blood Urea Nitrogen 21 mg/dL (7-17); Carbon Dioxide 30 mmol/L (22-30); Chloride 104 mmol/L (98-107); Glucose 97 mg/dL (74-99); Non-African American GFR(CKD) >90 (>60 ml/min/1.73 sqM); Potassium 4.7 mmol/L (3.5-5.1); Sodium 139 mmol/L (137-145)
[2024-04-16] MEDS: HYDROmorphone 0.5 MG/0.5 ML SYRINGE IVP STA (20:44)
[2024-04-16 21:26] VITALS: BP 102/76; PULSE 72; RESP 17
== END 2024-04-16 21:00 | disposition home or self-care (01) ==
LOC: EC 15:28
DX: R53.1 Weakness (principal); Z88.1 Allergy status to other antibiotic agents; Z88.5 Allergy status to narcotic agent; Z88.8 Allergy status to other drugs, medicaments and biological substances
CPT/HCPCS: 36415; 80048; 85025; 70450; 99284; 96374; 96375; 96376; 96361; J1200; J2405; J1171 ×2; J1885

== ENCOUNTER 2024-04-17 18:47 | Emergency (ER) | payer BC ==
[2024-04-17 18:52] VITALS: TEMP 98.4
--- NOTE | 2024-04-17 19:39 | ED ---
Nausea/Vomiting/Diarrhea HPI - General Chief complaint: Nausea/Vomiting/Diarrhea Stated complaint: HERE LN, NAUS, DIZ, NUMB Source: patient, RN notes reviewed, old records reviewed Mode of arrival: ambulatory Limitations: no limitations - History of Present Illness Initial comments: This is a 38-year-old female to the ER for evaluation of chronic pain chronic migraine headaches and neck pain. Patient admits to being in the emergency department yesterday and did not have improvement in symptoms, patient did have lab testing and imaging yesterday, today she is concerned that she is not feeling any better than she was yesterday. She is well-known to this emergency department for chronic pain, chronic migraine MD complaint: nausea, abdominal pain -: days(s) Associated Abdominal Pain: Yes Location: diffuse Radiation: none Severity: mild Severity scale (1-10): 1 Quality: aching Consistency: intermittent Improves with: none Worsens with: none Context: other (0) Associated Symptoms: denies other symptoms - Related Data Home Medications Medication Instructions Recorded Confirmed Levothyroxine Sodium [Synthroid] 50 mcg PO DAILY 05/05/14 02/11/24 Cetirizine HCl [Zyrtec] 10 mg PO DAILY 08/30/19 02/11/24 Pregabalin [Lyrica] 225 mg PO BID 08/30/19 02/11/24 Atogepant [Qulipta] 60 mg PO HS 11/28/21 02/11/24 Nystatin 100,000 Unit/gm Powd 1 applic TOPICAL BID PRN 12/12/21 02/11/24 [Mycostatin Powder] Ergocalciferol (Vitamin D2) 1,250 mcg PO GARCIA 05/19/22 02/11/24 [Drisdol (50,000 Iu)] Fluconazole 200 mg PO GARCIA 05/19/22 02/11/24 Acetaminophen Tab [Tylenol] 650 mg PO Q6H PRN 10/02/22 02/11/24 Lasmiditan Succinate [Reyvow] 50 mg PO DAILY PRN 10/02/22 02/11/24 Metoclopramide [Reglan] 10 mg PO DAILY PRN 10/02/22 02/11/24 Ketorolac [Toradol] 10 mg PO Q6HR PRN 10/30/22 02/11/24 buPROPion XL [Wellbutrin XL] 300 mg PO DAILY 01/08/23 02/11/24 Vit No.179/Iron/Folic 1 each PO DAILY 07/02/23 02/11/24 [ Tablet] Biotin 5,000 mcg PO DAILY 11/19/23 02/11/24 HYDROcodone/APAP 10-325MG [[place] 1 tab PO BID PRN 11/19/23 02/11/24 10-325] Melatonin 30 mg PO HS PRN 11/19/23 02/11/24 Lisdexamfetamine Dimesylate 50 mg PO QAM 02/11/24 02/11/24 [Vyvanse] methocarbamoL [Robaxin] 750 mg PO BID PRN 02/11/24 02/11/24 Allergies Allergy/AdvReac Type Severity Reaction Status Date / Time cephalexin [From Keflex] Allergy Rash/Hives Verified 04/16/24 15:38 codeine AdvReac Hallucinati Verified 04/16/24 15:38 ons tramadol AdvReac Hallucinati Verified 04/16/24 15:38 ons valacyclovir HCl AdvReac BLURRED Verified 04/16/24 15:38 [From Valtrex] VISION Review of Systems ROS Statement: Those systems with pertinent positive or pertinent negative responses have been documented in the HPI. ROS Other: All systems not noted in ROS Statement are negative. Past Medical History Past Medical History: Asthma, Diabetes Mellitus, Fibromyalgia, GERD/Reflux, Sleep Apnea/CPAP/BIPAP, Thyroid Disorder Additional Past Medical History / Comment(s): Migraines with aura, DDD, NIDDM type II, diverticulitis with perforation/colostomy since reversed, IBS, chronic seroma, CARLITOS/no device, polycystic ovaries, hypothyroid, season allergies History of Any Multi-Drug Resistant Organisms: None Reported Past Surgical History: Bariatric Surgery, Cholecystectomy, Hysterectomy, Uterine Ablation Additional Past Surgical History / Comment(s): 06/06/21 sleeve gastrectomy, rt Breast biopsy. bowel resection with colostomy/ later colostomy reversal, abdominal surgery to remove scar tissue, EGD, colonoscopy, back pain procedures uterine ablation, lysis of adhesions 07/11/22, 02/04/24-laparscopic hysterectomy Past Anesthesia/Blood Transfusion Reactions: No Reported Reaction Additional Past Anesthesia/Blood Transfusion Reaction / Comment(s): no hx blood transfusion, received monoclonal antibodies in Feb 2021 Past Psychological History: Anxiety, Bipolar, Depression Smoking Status: Never smoker Past Alcohol Use History: Occasional Past Drug Use History: None Reported - Past Family History Mother History Unknown: Yes Family Medical History: COPD Additional Family Medical History / Comment(s): Mother from COPD at the age of 55 yrs. Brother(s) Family Medical History: Diabetes Mellitus Father Family Medical History: Unable to Obtain General Exam Limitations: no limitations General appearance: alert, in no apparent distress Head exam: Present: atraumatic, normocephalic, normal inspection Eye exam: Present: normal appearance, PERRL, EOMI. Absent: scleral icterus, conjunctival injection, periorbital swelling ENT exam: Present: normal exam, mucous membranes moist Neck exam: Present: normal inspection. Absent: tenderness, meningismus, lymphadenopathy Respiratory exam: Present: normal lung sounds bilaterally. Absent: respiratory distress, wheezes, rales, rhonchi, stridor Cardiovascular Exam: Present: regular rate, normal rhythm, normal heart sounds. Absent: systolic murmur, diastolic murmur, rubs, gallop, clicks GI/Abdominal exam: Present: soft, normal bowel sounds. Absent: distended, tenderness, guarding, rebound, rigid Extremities exam: Present: normal inspection, full ROM, normal capillary refill. Absent: tenderness, pedal edema, joint swelling, calf tenderness Back exam: Present: normal inspection Neurological exam: Present: alert, oriented X3, CN II-XII intact Psychiatric exam: Present: normal affect, normal mood Skin exam: Present: warm, dry, intact, normal color. Absent: rash Course Vital Signs 04/17/24 04/17/24 18:50 20:32 Temperature 98.4 F Pulse Rate 85 97 Respiratory 18 16 Rate Blood Pressure 118/77 105/68 O2 Sat by Pulse 100 100 Oximetry - Reevaluation(s) Reevaluation #1: Medical records reviewed Reevaluation #2: Patient symptoms improved Reevaluation #3: Patient informed of results and questions answered Reevaluation #4: Was pt. sent in by a medical professional or institution (, PA, BARREL MARKER, urgent care, hospital, or [facility]...) When possible be specific @ -no Did you speak to anyone other than the patient for history (EMS, parent, family, police, friend...)? What history was obtained from this source @ -no Did you review nursing and triage notes (agree or disagree)? Why? @ -agree Are old charts reviewed (outside hosp., previous admission, EMS record, old EKG, old radiological studies, urgent care reports/EKG's, [facility] records)? Report findings @ -yes Differential Diagnosis (chest pain, altered mental status, abdominal pain women, abdominal pain men, vaginal bleeding, weakness, fever, dyspnea, syncope, headache, dizziness, GI bleed, back pain, seizure, CVA, palpatations, mental health, musculoskeletal)? @ -prior EKG interpreted by me (3pts min.). @ -no X-rays interpreted by me (1pt min.). @ -no CT interpreted by me (1pt min.). @ -no U/S interpreted by me (1pt. min.). @ -no What testing was considered but not performed or refused? (CT, X-rays, U/S, la bs)? Why? @ -none What meds were considered but not given or refused? Why? @ -none Did you discuss the management of the patient with other professionals (professionals i.e. , PA, BARREL MARKER, lab, RT, psych nurse, manager social responsibility, dog track kennel manager, teacher, budget officer, supportive employment case manager)? Give summary @ -no Was smoking cessation discussed for >3mins.? @ -no Was critical care preformed (if so, how long)? @ -no Were there social determinants of health that impacted care today? How? (Homelessness, low income, unemployed, alcoholism, drug addiction, transportation, low edu. Level, literacy, decrease access to med. care, fpc, rehab)? @ -none Was there de-escalation of care discussed even if they declined (Discuss DNR or withdrawal of care, Hospice)? DNR status @ -no What co-morbidities impacted this encounter? (DM, HTN, Smoking, COPD, CAD, Cancer, CVA, ARF, Chemo, Hep., AIDS, mental health diagnosis, sleep apnea, morbid obesity)? @ -none Was patient admitted / discharged? Hospital course, mention meds given and route, prescriptions, significant lab abnormalities, going to OR and other pertinent info. @ - 38 female to the ER for evaluation of chronic pain chronic headache migraine pains. Patient was in the hospital yesterday and states she feels no better today. Patient is given pain medication here in the ER and currently feels well and can be discharged home Discharge Undiagnosed new problem with uncertain prognosis? @ -no Drug Therapy requiring intensive monitoring for toxicity (Heparin, Nitro, Insulin, Cardizem)? @ -no Were any procedures done? @ -no Diagnosis/symptom? @ -Chronic migraine Acute, or Chronic, or Acute on Chronic? @ -Acute Uncomplicated (without systemic symptoms) or Complicated (systemic symptoms)? @ -Complicated Side effects of treatment? @ -no Exacerbation, Progression, or Severe Exacerbation? @ -exacerbation Poses a threat to life or bodily function? How? (Chest pain, [place], [place], pneumonia, PE, COPD, DKA, ARF, appy, cholecystitis, CVA, Diverticulitis, Homicidal, Suicidal, threat to staff... and all critical care pts) @ -yes chronic medical history Reevaluation #5: Differential Headache: Migraine, tension, cluster, carbon monoxide, central venous thrombosis, pension karma temporal arteritis, acute closure glaucoma, intercranial hemorrhage, mastoiditis, sinusitis, head injury, this is not meant to be an all-inclusive list. Medical Decision Making - Medical Decision Making 38 female to the ER for evaluation of chronic pain chronic headache migraine pains. Patient was in the hospital yesterday and states she feels no better today. Patient is given pain medication here in the ER and currently feels well and can be discharged home Disposition Clinical Impression: Weakness Disposition: HOME SELF-CARE Condition: Fair Instructions (If sedation given, give patient instructions): Weakness (ED) Is patient prescribed a controlled substance at d/c from ED?: No Referrals: Prerna Vicente NPC [Primary Care Provider] - 1-2 days Time of Disposition: 20:00
[2024-04-17] MEDS: PROCHLORPERAZINE 10 MG TAB PO STA (20:00)
[2024-04-17] MEDS: diphenhydrAMINE 50 MG CAP PO STA (20:00)
[2024-04-17] MEDS: HYDROmorphone 1 MG/ML 1 ML SYRINGE IM STA (20:01)
[2024-04-17 20:33] VITALS: BP 105/68; PULSE 97; RESP 16
== END 2024-04-17 20:33 | disposition home or self-care (01) ==
LOC: EC 18:47
DX: R53.1 Weakness (principal); Z88.5 Allergy status to narcotic agent; Z88.1 Allergy status to other antibiotic agents; Z88.6 Allergy status to analgesic agent; Z88.8 Allergy status to other drugs, medicaments and biological substances
CPT/HCPCS: 99283; 96372; S0183; J1171

== ENCOUNTER → 2024-04-28 | Outpatient (CLI) | payer BC ==
[2024-04-28 08:36] VITALS: BP 120/83; PULSE 98; RESP 16; TEMP 98.3; BMI 33.8
--- NOTE | 2024-04-28 09:07 | P.HPBAR ---
Bariatric H&P - History & Physicial H&P Date: 04/28/24 History & Physicial: Visit/CC: f/u Patient initial contact: Initial weight: 312 kg Initial weight in pounds: 687.84 Height: 5 ft 7 in Initial BMI: 107.7 Last weight: Current weight: 97.976 kg Current weight in pounds: 216.00 Current BMI: 33.8 [place] body weight (based on NIH guidelines): 61.235 kg Excess body weight loss: 85.3% The patient is a 39 year-old F who presents for Bariatric Assessment. Patient presents today for gerd follow-up. Patient is gained 11 pounds her last visit. She said some gerd. Patient also has complaints of her panniculus. She has had issues with chronic skin irritations. Patient has lost in excess of 100 pounds. Past Medical History Past Medical History: Asthma, Diabetes Mellitus, Fibromyalgia, GERD/Reflux, Sleep Apnea/CPAP/BIPAP, Thyroid Disorder Additional Past Medical History / Comment(s): Migraines with aura, DDD, NIDDM type II, diverticulitis with perforation/colostomy since reversed, IBS, chronic seroma, CARLITOS/no device, polycystic ovaries, hypothyroid, season allergies History of Any Multi-Drug Resistant Organisms: None Reported Past Surgical History: Bariatric Surgery, Cholecystectomy, Hysterectomy, Uterine Ablation Additional Past Surgical History / Comment(s): 06/06/21 sleeve gastrectomy, rt Breast biopsy. bowel resection with colostomy/ later colostomy reversal, abdominal surgery to remove scar tissue, EGD, colonoscopy, back pain procedures uterine ablation, lysis of adhesions 07/11/22, 02/04/24-laparscopic hysterectomy Past Anesthesia/Blood Transfusion Reactions: No Reported Reaction Additional Past Anesthesia/Blood Transfusion Reaction / Comm: no hx blood transfusion, received monoclonal antibodies in Feb 2021 Past Psychological History: Anxiety, Bipolar, Depression Additional Psychological History / Comment(s): Pt has eating disorder-binge eater, borderline personality disorder. Pt resides with her boyfriend and his mother. She is independent. Smoking Status: Never smoker Past Alcohol Use History: Occasional Past Drug Use History: None Reported - Past Family History Mother History Unknown: Yes Family Medical History: COPD Additional Family Medical History / Comment(s): Mother from COPD at the age of 55 yrs. Brother(s) Family Medical History: Diabetes Mellitus Father Family Medical History: Unable to Obtain Surgical - Exam Vital Signs Temp Pulse Resp BP 98.3 F 98 16 120/83 04/28/24 08:28 04/28/24 08:28 04/28/24 08:28 04/28/24 08:28 - General well developed, well nourished, no distress - Eyes PERRL - ENT normal pinna - Neck no masses - Respiratory normal expansion - Cardiovascular Rhythm: regular - Abdomen Large well-formed panniculus with evidence of chronic skin irritation. Abdomen: soft, non tender Bariatric Assessment & Plan Plan: Resolving morbid obesity. Patient's BMI is 34. Patient's gerd is minimal will be observed. Patient's has a well-formed panniculus. We will attempt to obtain insurance authorization for panniculectomy. Bariatric Checklist Checklist: Plan: Checklist: EGD: 1. Hiatal hernia: 2. H. Pylori: HgbA1c: Vitamin D: Smoking: Never smoker Primary care physician referral: JOSE DAVILA/DR AVERY Psychiatry clearance: Cardiology clearance: Sleep study: Diet journal: VTE risk score: VTE risk level: Rehab needs at discharge:
== END ==
LOC: BARWHC3 08:16
PROVIDERS: ATTEND Surgery
DX: E66.01 Morbid (severe) obesity due to excess calories (principal); Z68.33 Body mass index [BMI] 33.0-33.9, adult; Z88.1 Allergy status to other antibiotic agents; Z88.5 Allergy status to narcotic agent; Z88.8 Allergy status to other drugs, medicaments and biological substances
CPT/HCPCS: 99211

== ENCOUNTER 2024-05-15 20:43 | Emergency (ER) | payer BC ==
[2024-05-15] MEDS: KETOROLAC 15 MG/ML 1 ML VIAL IVP STA (22:21)
[2024-05-15] MEDS: SODIUM CHLORIDE 0.9% 500 ML 500 ML IV STA (22:21)
[2024-05-15] MEDS: HYDROmorphone 1 MG/ML 1 ML SYRINGE IVP STA (22:22)
[2024-05-15] MEDS: diphenhydrAMINE 50 MG/ML 1 ML VIAL IVP STA (22:22)
[2024-05-15] MEDS: METOCLOPRAMIDE 5 MG/ML 2 ML VIAL IVP STA (22:23)
--- NOTE | 2024-05-15 23:25 | ED ---
Headache HPI - General Chief Complaint: Headache Stated Complaint: Migraine Time Seen by Provider: 05/15/24 21:52 Mode of arrival: ambulatory Limitations: no limitations - History of Present Illness Initial Comments: 1-year-old female history of migraines presenting with chief complaint of migraine headache. Started early this morning. Patient tried her abortive medication and Toradol pills at home which did not help much. She states that he is having stabbing pain at the top of her head, this is how her headaches usually feel. No change in the character of her pain from previous migraines. Admits to nausea no vomiting. Admits to light sensitivity. No neck pain numbness tingling or weakness. No fevers or chills. No recent illness. No injury or trauma. - Related Data Home Medications Medication Instructions Recorded Confirmed Levothyroxine Sodium [Synthroid] 50 mcg PO DAILY 05/05/14 04/28/24 Cetirizine HCl [Zyrtec] 10 mg PO DAILY 08/30/19 04/28/24 Pregabalin [Lyrica] 225 mg PO BID 08/30/19 04/28/24 Atogepant [Qulipta] 60 mg PO HS 11/28/21 04/28/24 Nystatin 100,000 Unit/gm Powd 1 applic TOPICAL BID PRN 12/12/21 04/28/24 [Mycostatin Powder] Ergocalciferol (Vitamin D2) 1,250 mcg PO GARCIA 05/19/22 04/28/24 [Drisdol (50,000 Iu)] Fluconazole 200 mg PO GARCIA 05/19/22 04/28/24 Acetaminophen Tab [Tylenol] 650 mg PO Q6H PRN 10/02/22 04/28/24 Lasmiditan Succinate [Reyvow] 50 mg PO DAILY PRN 10/02/22 04/28/24 Metoclopramide [Reglan] 10 mg PO DAILY PRN 10/02/22 04/28/24 Ketorolac [Toradol] 10 mg PO Q6HR PRN 10/30/22 04/28/24 buPROPion XL [Wellbutrin XL] 300 mg PO DAILY 01/08/23 04/28/24 Vit No.179/Iron/Folic 1 each PO DAILY 07/02/23 04/28/24 [ Tablet] Biotin 5,000 mcg PO DAILY 11/19/23 04/28/24 HYDROcodone/APAP 10-325MG [[place] 1 tab PO BID PRN 11/19/23 04/28/24 10-325] Lisdexamfetamine Dimesylate 70 mg PO QAM 02/11/24 04/28/24 [Vyvanse] methocarbamoL [Robaxin] 750 mg PO BID PRN 02/11/24 04/28/24 hydrOXYzine HCL [Atarax] 100 mg PO HS PRN 04/28/24 04/28/24 tiZANidine [Zanaflex] 2 mg PO HS PRN 04/28/24 04/28/24 Allergies Allergy/AdvReac Type Severity Reaction Status Date / Time cephalexin [From Keflex] Allergy Rash/Hives Verified 05/15/24 20:47 codeine AdvReac Hallucinati Verified 05/15/24 20:47 ons tramadol AdvReac Hallucinati Verified 05/15/24 20:47 ons valacyclovir HCl AdvReac BLURRED Verified 05/15/24 20:47 [From Valtrex] VISION Review of Systems ROS Statement: Those systems with pertinent positive or pertinent negative responses have been documented in the HPI. ROS Other: All systems not noted in ROS Statement are negative. Past Medical History Past Medical History: Asthma, Diabetes Mellitus, Fibromyalgia, GERD/Reflux, Sleep Apnea/CPAP/BIPAP, Thyroid Disorder Additional Past Medical History / Comment(s): Migraines with aura, DDD, NIDDM type II, diverticulitis with perforation/colostomy since reversed, IBS, chronic seroma, CARLITOS/no device, polycystic ovaries, hypothyroid, season allergies History of Any Multi-Drug Resistant Organisms: None Reported Past Surgical History: Bariatric Surgery, Cholecystectomy, Hysterectomy, Uterine Ablation Additional Past Surgical History / Comment(s): 06/06/21 sleeve gastrectomy, rt Breast biopsy. bowel resection with colostomy/ later colostomy reversal, abdominal surgery to remove scar tissue, EGD, colonoscopy, back pain procedures uterine ablation, lysis of adhesions 07/11/22, 02/04/24-laparscopic hysterectomy Past Anesthesia/Blood Transfusion Reactions: No Reported Reaction Additional Past Anesthesia/Blood Transfusion Reaction / Comment(s): no hx blood transfusion, received monoclonal antibodies in Feb 2021 Past Psychological History: Anxiety, Bipolar, Depression Smoking Status: Never smoker Past Alcohol Use History: Occasional Past Drug Use History: None Reported - Past Family History Mother History Unknown: Yes Family Medical History: COPD Additional Family Medical History / Comment(s): Mother from COPD at the age of 55 yrs. Brother(s) Family Medical History: Diabetes Mellitus Father Family Medical History: Unable to Obtain General Exam Limitations: no limitations General appearance: alert, in no apparent distress Head exam: Present: atraumatic, normocephalic, normal inspection Eye exam: Present: normal appearance, EOMI Neck exam: Present: normal inspection. Absent: meningismus Respiratory exam: Absent: respiratory distress Cardiovascular Exam: Present: regular rate Neurological exam: Present: alert, oriented X3 Expanded Patient oriented to: Present: person, place, time Speech: Present: fluid speech Eye Response: (4) open spontaneously Motor Response: (6) obeys commands Verbal Response: (5) oriented [place] Total: 15 Psychiatric exam: Present: normal affect, normal mood Skin exam: Present: warm, dry Course Vital Signs 05/15/24 05/15/24 20:44 23:49 Temperature 98.8 F 98.2 F Pulse Rate 92 74 Respiratory 17 18 Rate Blood Pressure 133/87 106/68 O2 Sat by Pulse 100 98 Oximetry Medical Decision Making - Medical Decision Making Was pt. sent in by a medical professional or institution (SOILA Carrera, SELENIUM PLANT OPERATOR, urgent care, hospital, or snf...) When possible be specific @ -No Did you speak to anyone other than the patient for history (EMS, parent, family, police, friend...)? What history was obtained from this source @ -No Did you review nursing and triage notes (agree or disagree)? Why? @ -I reviewed and agree with nursing and triage notes Were old charts reviewed (outside hosp., previous admission, EMS record, old EKG, old radiological studies, urgent care reports/EKG's, snf records)? Report findings @ -No old charts were reviewed Differential Diagnosis (chest pain, altered mental status, abdominal pain women, abdominal pain men, vaginal bleeding, weakness, fever, dyspnea, syncope, headache, dizziness, GI bleed, back pain, seizure, CVA, palpatations, mental health, musculoskeletal)? @ -MDM Differential Headache: Migraine, tension, cluster, carbon monoxide, central venous thrombosis, pension karma temporal arteritis, acute closure glaucoma, intercranial hemorrhage, mastoiditis, sinusitis, head injury this is not meant to be an all-inclusive list. EKG interpreted by me (3pts min.). @ -As above X-rays interpreted by me (1pt min.). @ -None done CT interpreted by me (1pt min.). @ -None done U/S interpreted by me (1pt. min.). @ -None done What testing was considered but not performed or refused? (CT, X-rays, U/S, labs)? Why? @ -None What meds were considered but not given or refused? Why? @ -None Did you discuss the management of the patient with other professionals (rani sullivan i.e. , PA, SELENIUM PLANT OPERATOR, lab, RT, psych nurse, delinquency prevention social worker, locator, teacher, chief development officer, supervisor case loading)? Give summary @ -No Was smoking cessation discussed for >3mins.? @ -No Was critical care preformed (if so, how long)? @ -No Were there social determinants of health that impacted care today? How? (Homelessness, low income, unemployed, alcoholism, drug addiction, transportation, low edu. Level, literacy, decrease access to med. care, fci, rehab)? @ -No Was there de-escalation of care discussed even if they declined (Discuss DNR or withdrawal of care, Hospice)? DNR status @ -No What co-morbidities impacted this encounter? (DM, HTN, Smoking, COPD, CAD, Cancer, CVA, ARF, Chemo, Hep., AIDS, mental health diagnosis, sleep apnea, morbid obesity)? @ -None Was patient admitted / discharged? Hospital course, mention meds given and route, prescriptions, significant lab abnormalities, going to OR and other pertinent info. @ -39-year-old female history of migraines presenting with chief complaint of migraine headache. She has been seen here multiple occasions for migraine headache. No changes in the character of her pain from her usual migraines. Patient is treated with migraine cocktail and on reassessment reports improvement in her symptoms. She has an upcoming appointment with neurology for Botox injections. Follow-up with PCP. Report back to ER with any new or worsen ing symptoms. Discussed return parameters and answered all questions. Patient conveyed verbal understanding and agreed to the plan. I discussed this case in detail with my attending Dr. Martin Undiagnosed new problem with uncertain prognosis? @ -No Drug Therapy requiring intensive monitoring for toxicity (Heparin, Nitro, Insulin, Cardizem)? @ -No Were any procedures done? @ -No Diagnosis/symptom? @ -Migraine headache Acute, or Chronic, or Acute on Chronic? @ -Acute on chronic Uncomplicated (without systemic symptoms) or Complicated (systemic symptoms)? @ -Uncomplicated Side effects of treatment? @ -No Exacerbation, Progression, or Severe Exacerbation? @ -No Poses a threat to life or bodily function? How? (Chest pain, [place], [place], pneumonia, PE, COPD, DKA, ARF, appy, cholecystitis, CVA, Diverticulitis, Homicidal, Suicidal, threat to staff... and all critical care pts) @ -Low likelihood Disposition Clinical Impression: Migraine headache Disposition: HOME SELF-CARE Condition: Good Instructions (If sedation given, give patient instructions): Migraine Headache (ED) Additional Instructions: Follow-up with PCP and neurology. Report back to ER with any new or worsening symptoms. Is patient prescribed a controlled substance at d/c from ED?: No Referrals: Brody Solorio MD [Primary Care Provider] - 1-2 days Thomas Azar MD [Medical Doctor] - 1-2 days Time of Disposition: 23:25
[2024-05-15] MEDS: HYDROmorphone 0.5 MG/0.5 ML SYRINGE IVP STA (23:34)
[2024-05-15 23:50] VITALS: BP 106/68; PULSE 74; RESP 18; TEMP 98.2
== END 2024-05-16 | disposition home or self-care (01) ==
LOC: EC 20:43
DX: G43.909 Migraine, unspecified, not intractable, without status migrainosus (principal); Z88.1 Allergy status to other antibiotic agents; Z88.5 Allergy status to narcotic agent; Z88.8 Allergy status to other drugs, medicaments and biological substances
CPT/HCPCS: 99283; 96374; 96375 ×3; 96376; 96361; J1200; J2765; J1171 ×2; J1885

== ENCOUNTER 2024-05-21 20:51 | Emergency (ER) | payer BC ==
[2024-05-21 20:55] VITALS: RESP 18
--- NOTE | 2024-05-21 21:29 | ED ---
General Adult HPI - General Chief complaint: Headache Stated complaint: Headache and slurred speech Time Seen by Provider: 05/21/24 21:18 Source: patient, RN notes reviewed, old records reviewed Mode of arrival: ambulatory - History of Present Illness Initial comments: Patient is a 39-year-old female with past medical history markable for migraines, diabetes, asthma. Presents emergency department complaining of a migraine. Occasionally with her migraine she does get sensitivity to lights and sounds, a stutter, all of which she has currently. States she has been doing with this migraine for the last 12 hours. States she has had an on again off again headaches since she fell last Sunday and did suffer mild head trauma. Did not lose conscious at this time is not on blood thinners. Has bruising over her right forehead. There is no focal deficits. No fevers, chills, cough, neck stiffness. No other acute complaints. States the migraine headache is very typical for migraine headache for her. States it is somewhat all around her head but focused in the posterior aspect. Attempted her home medications which would not improve the migraine which is why she presents for further evaluation. Has required migraine cocktails in the past. - Related Data Home Medications Medication Instructions Recorded Confirmed Levothyroxine Sodium [Synthroid] 50 mcg PO DAILY 05/05/14 04/28/24 Cetirizine HCl [Zyrtec] 10 mg PO DAILY 08/30/19 04/28/24 Pregabalin [Lyrica] 225 mg PO BID 08/30/19 04/28/24 Atogepant [Qulipta] 60 mg PO HS 11/28/21 04/28/24 Nystatin 100,000 Unit/gm Powd 1 applic TOPICAL BID PRN 12/12/21 04/28/24 [Mycostatin Powder] Ergocalciferol (Vitamin D2) 1,250 mcg PO GARCIA 05/19/22 04/28/24 [Drisdol (50,000 Iu)] Fluconazole 200 mg PO GARCIA 05/19/22 04/28/24 Acetaminophen Tab [Tylenol] 650 mg PO Q6H PRN 10/02/22 04/28/24 Lasmiditan Succinate [Reyvow] 50 mg PO DAILY PRN 10/02/22 04/28/24 Metoclopramide [Reglan] 10 mg PO DAILY PRN 10/02/22 04/28/24 Ketorolac [Toradol] 10 mg PO Q6HR PRN 10/30/22 04/28/24 buPROPion XL [Wellbutrin XL] 300 mg PO DAILY 01/08/23 04/28/24 Vit No.179/Iron/Folic 1 each PO DAILY 07/02/23 04/28/24 [ Tablet] Biotin 5,000 mcg PO DAILY 11/19/23 04/28/24 HYDROcodone/APAP 10-325MG [[place] 1 tab PO BID PRN 11/19/23 04/28/24 10-325] Lisdexamfetamine Dimesylate 70 mg PO QAM 02/11/24 04/28/24 [Vyvanse] methocarbamoL [Robaxin] 750 mg PO BID PRN 02/11/24 04/28/24 hydrOXYzine HCL [Atarax] 100 mg PO HS PRN 04/28/24 04/28/24 tiZANidine [Zanaflex] 2 mg PO HS PRN 04/28/24 04/28/24 Allergies Allergy/AdvReac Type Severity Reaction Status Date / Time cephalexin [From Keflex] Allergy Rash/Hives Verified 05/21/24 20:55 codeine AdvReac Hallucinati Verified 05/21/24 20:55 ons tramadol AdvReac Hallucinati Verified 05/21/24 20:55 ons valacyclovir HCl AdvReac BLURRED Verified 05/21/24 20:55 [From Valtrex] VISION Review of Systems ROS Statement: Those systems with pertinent positive or pertinent negative responses have been documented in the HPI. Review of Systems: CONST: Denies fever EYES: Denies blurry vision ENT: Denies nasal congestion C/V: Denies Chest pain RESP: Denies shortness of breath GI: Denies abdominal pain : Denies dysuria SKIN: Denies rash. MSK: Denies joint pain. NEURO: Endorses headache ROS Other: All systems not noted in ROS Statement are negative. Past Medical History Past Medical History: Asthma, Diabetes Mellitus, Fibromyalgia, GERD/Reflux, Sleep Apnea/CPAP/BIPAP, Thyroid Disorder Additional Past Medical History / Comment(s): Migraines with aura, DDD, NIDDM type II, diverticulitis with perforation/colostomy since reversed, IBS, chronic seroma, CARLITOS/no device, polycystic ovaries, hypothyroid, season allergies History of Any Multi-Drug Resistant Organisms: None Reported Past Surgical History: Bariatric Surgery, Cholecystectomy, Hysterectomy, Uterine Ablation Additional Past Surgical History / Comment(s): 06/06/21 sleeve gastrectomy, rt Breast biopsy. bowel resection with colostomy/ later colostomy reversal, abdominal surgery to remove scar tissue, EGD, colonoscopy, back pain procedures uterine ablation, lysis of adhesions 07/11/22, 02/04/24-laparscopic hysterectomy Past Anesthesia/Blood Transfusion Reactions: No Reported Reaction Additional Past Anesthesia/Blood Transfusion Reaction / Comment(s): no hx blood transfusion, received monoclonal antibodies in Feb 2021 Past Psychological History: Anxiety, Bipolar, Depression Smoking Status: Never smoker Past Alcohol Use History: Occasional Past Drug Use History: None Reported - Past Family History Mother History Unknown: Yes Family Medical History: COPD Additional Family Medical History / Comment(s): Mother from COPD at the age of 55 yrs. Brother(s) Family Medical History: Diabetes Mellitus Father Family Medical History: Unable to Obtain General Exam - General Exam Comments Initial Comments: General: Appears in mild to moderate distress secondary to headache. HEAD: Normal with no signs of head trauma. Negative Sims sign. Negative raccoon eyes EYES: PERRLA, EOMI, conjunctiva normal, no discharge. Pupils are 3 mm single bilaterally. ENT: Hearing grossly intact, normal oropharynx. RESPIRATORY: Clear breath sounds bilaterally. No wheezes, rales, or rhonchi. C/V: Regular rate and rhythm. S1 and S2 auscultated, no edema, peripheral pulses 2+ and intact throughout ABD: Abd is soft, nontender, nondistended EXT: Normal range of motion, no obvious deformity SKIN: Patient does have a currently healing bruise over the right upper forehead. Approximately the size of a quarter. NEURO: Alert and oriented x 4. Cranial nerves II-XII intact. No focal sensory or strength deficits. GCS of 15. No focal deficits appreciated. Patient does have a stutter which is typical when she does have migraines. Course Vital Signs 05/21/24 20:52 Temperature 97.8 F Pulse Rate 83 Respiratory 18 Rate Blood Pressure 139/88 O2 Sat by Pulse 99 Oximetry Medical Decision Making - Medical Decision Making Was pt. sent in by a medical professional or institution (Dr., PA, BUNDLER, urgent care, hospital, or senior living...) When possible be specific @ -No Did you speak to anyone other than the patient for history (EMS, parent, family, police, friend...)? What history was obtained from this source @ -No Did you review nursing and triage notes (agree or disagree)? Why? @ -I reviewed and agree with nursing and triage notes Were old charts reviewed (outside hosp., previous admission, EMS record, old EKG, old radiological studies, urgent care reports/EKG's, senior living records)? Report findings @ -Old charts reviewed including visit back in March 2024 when patient presented with migraine with stutter. Has been seen here previously with similar complaints in the past. Migraine cocktails seem to help with her migraines. Differential Diagnosis (chest pain, altered mental status, abdominal pain women, abdominal pain men, vaginal bleeding, weakness, fever, dyspnea, syncope, headache, dizziness, GI bleed, back pain, seizure, CVA, palpatations, mental health, musculoskeletal)? @ -Differential Headache: Migraine, tension, cluster, carbon monoxide, central venous thrombosis, pension karma temporal arteritis, acute closure glaucoma, intercranial hemorrhage, mastoiditis, sinusitis, head injury, this is not meant to be an all-inclusive list. EKG interpreted by me (3pts min.). @ -None done X-rays interpreted by me (1pt min.). @ -None done CT interpreted by me (1pt min.). @ -CT brain returned negative for any obvious acute intracranial process or injury. U/S interpreted by me (1pt. min.). @ -None done What testing was considered but not performed or refused? (CT, X-rays, U/S, labs)? Why? @ -None What meds were considered but not given or refused? Why? @ -None Did you discuss the management of the patient with other professionals (professionals i.e. , PA, BUNDLER, lab, RT, psych nurse, social service technician, it infrastructure consultant, teacher, peace officer, patient case coordinator)? Give summary @ -No Was smoking cessation discussed for >3mins.? @ -No Was critical care preformed (if so, how long)? @ -No Were there social determinants of health that impacted care today? How? (Homelessness, low income, unemployed, alcoholism, drug addiction, transportation, low edu. Level, literacy, decrease access to med. care, residential, rehab)? @ -No Was there de-escalation of care discussed even if they declined (Discuss DNR or withdrawal of care, Hospice)? DNR status @ -No What co-morbidities impacted this encounter? (DM, HTN, Smoking, COPD, CAD, Cancer, CVA, ARF, Chemo, Hep., AIDS, mental health diagnosis, sleep apnea, morbid obesity)? @ -Migraines with atypical features including stutter Was patient admitted / discharged? Hospital course, mention meds given and route, prescriptions, significant lab abnormalities, going to OR and other pertinent info. @ -Based on patient's presentation and physical exam, presents emergency department with a migraine with a stutter which can be typical with her migraines. She has had it previously. However this time patient does have a recent head trauma, occurring at last Sunday. States she has been having on again off again headaches since then but migraines started today. Vitals are within acceptable limits. I did discuss options of CT imaging considering she is having a migraine with this daughter with the recent head trauma and we both agreed to obtain CT brain at this time. We also obtain basic labs and provide the patient with migraine cocktail. She is given IV morphine, Reglan, Benadryl, fluids. She was in agreement this plan. Vitals are within acceptable limits. Laboratory studies returned remarkable for mild hyperglycemia however patient ate and this resolved. Remainder the labs unremarkable. CT imaging returned negative for any obvious acute intracranial process or injury. On reevaluation, pain is improved however still not resolved. Patient given additional analgesia medications. I discussed results with the patient at this time and reevaluated. Patient's feeling much better. Stuttering has stopped. Migraine is nearly resolved. Discussed with her strict return precautions but she will be discharged home at this time. She was in agreement this plan. I instructed the patient to follow up with their PCP in the next 1-3 days. I explained that the patient should return to the emergency department if they experience any worsening symptoms. Strict return precautions were discussed with the patient. The patient expressed understanding of these instructions. I answered all questions that the patient had. The patient was discharged home in good condition with their prescriptions and follow up information. Undiagnosed new problem with uncertain prognosis? @ -No Drug Therapy requiring intensive monitoring for toxicity (Heparin, Nitro, Insulin, Cardizem)? @ -No Were any procedures done? @ -No Diagnosis/symptom? @ -Migraine, stutter Acute, or Chronic, or Acute on Chronic? @ -Acute on chronic Uncomplicated (without systemic symptoms) or Complicated (systemic symptoms)? @ -Uncomplicated Side effects of treatment? @ -None Exacerbation, Progression, or Severe Exacerbation] @ -No Poses a threat to life or bodily function? @ -Unlikely at this time - Lab Data Result diagrams: 05/21/24 21:49 05/21/24 21:49 Lab Results 05/21/24 05/21/24 05/21/24 Range/Units 21:49 21:49 21:49 WBC 8.5 (3.8-10.6) k/uL RBC 4.94 (3.80-5.40) m/uL Hgb 14.7 (11.4-16.0) gm/dL Hct 45.4 (34.0-46.0) % MCV 91.9 (80.0-100.0) fL MCH 29.8 (25.0-35.0) pg MCHC 32.4 (31.0-37.0) g/dL RDW 12.8 (11.5-15.5) % Plt Count 276 (150-450) k/uL MPV 7.1 Neutrophils % 55 % Lymphocytes % 34 % Monocytes % 6 % Eosinophils % 3 % Basophils % 1 % Neutrophils # 4.7 (1.3-7.7) k/uL Lymphocytes # 2.9 (1.0-4.8) k/uL Monocytes # 0.5 (0-1.0) k/uL Eosinophils # 0.2 (0-0.7) k/uL Basophils # 0.1 (0-0.2) k/uL PT 12.3 (10.0-12.5) sec INR 1.1 (<1.2) APTT 25.1 (22.0-30.0) sec Sodium 139 (137-145) mmol/L Potassium 3.9 (3.5-5.1) mmol/L Chloride 106 (98-107) mmol/L Carbon Dioxide 31 H (22-30) mmol/L Anion Gap 2 mmol/L BUN 24 H (7-17) mg/dL Creatinine 0.96 (0.52-1.04) mg/dL Est GFR (CKD-EPI)AfAm 85 (>60 ml/min/1.73 sqM) Est GFR (CKD-EPI)NonAf 74 (>60 ml/min/1.73 sqM) Glucose 66 L (74-99) mg/dL POC Glucose (mg/dL) (70-110) mg/dL POC Glu Project Engineering Manager ID Calcium 9.0 (8.4-10.2) mg/dL Total Bilirubin 0.2 (0.2-1.3) mg/dL AST 36 (14-36) U/L ALT 44 H (4-34) U/L Alkaline Phosphatase 64 (38-126) U/L Total Protein 5.9 L (6.3-8.2) g/dL Albumin 3.7 (3.5-5.0) g/dL 05/21/24 Range/Units 23:26 WBC (3.8-10.6) k/uL RBC (3.80-5.40) m/uL Hgb (11.4-16.0) gm/dL Hct (34.0-46.0) % MCV (80.0-100.0) fL MCH (25.0-35.0) pg MCHC (31.0-37.0) g/dL RDW (11.5-15.5) % Plt Count (150-450) k/uL MPV Neutrophils % % Lymphocytes % % Monocytes % % Eosinophils % % Basophils % % Neutrophils # (1.3-7.7) k/uL Lymphocytes # (1.0-4.8) k/uL Monocytes # (0-1.0) k/uL Eosinophils # (0-0.7) k/uL Basophils # (0-0.2) k/uL PT (10.0-12.5) sec INR (<1.2) APTT (22.0-30.0) sec Sodium (137-145) mmol/L Potassium (3.5-5.1) mmol/L Chloride (98-107) mmol/L Carbon Dioxide (22-30) mmol/L Anion Gap mmol/L BUN (7-17) mg/dL Creatinine (0.52-1.04) mg/dL Est GFR (CKD-EPI)AfAm (>60 ml/min/1.73 sqM) Est GFR (CKD-EPI)NonAf (>60 ml/min/1.73 sqM) Glucose (74-99) mg/dL POC Glucose (mg/dL) 81 (70-110) mg/dL POC Glu Project Engineering Manager ID Esteban Irby Calcium (8.4-10.2) mg/dL Total Bilirubin (0.2-1.3) mg/dL AST (14-36) U/L ALT (4-34) U/L Alkaline Phosphatase (38-126) U/L Total Protein (6.3-8.2) g/dL Albumin (3.5-5.0) g/dL Disposition Clinical Impression: Migraine, Stutter Disposition: HOME SELF-CARE Condition: Good Additional Instructions: Follow-up with your neurologist or PCP in the next 1 to 3 days. Return if any worsening symptoms. Use your typical migraine medications at home as needed. Is patient prescribed a controlled substance at d/c from ED?: No Referrals: Nonstaff,Physician [Primary Care Provider] - 1-2 days Forms: Area PCPs Time of Disposition: 00:50
[2024-05-21 21:56] LABS: Basophils # (A) 0.1 k/uL (0-0.2); Basophils % (A) 1 %; Eosinophils # (A) 0.2 k/uL (0-0.7); Eosinophils % (A) 3 %; HCT 45.4 % (34.0-46.0); HGB 14.7 gm/dL (11.4-16.0); Lymphocytes # (A) 2.9 k/uL (1.0-4.8); Lymphocytes % (A) 34 %; MCH 29.8 pg (25.0-35.0); MCHC 32.4 g/dL (31.0-37.0); MCV 91.9 fL (80.0-100.0); Mean Platelet Volume 7.1; Monocytes # (A) 0.5 k/uL (0-1.0); Monocytes % (A) 6 %; Neutrophils # (A) 4.7 k/uL (1.3-7.7); Neutrophils % (A) 55 %; Platelet Count 276 k/uL (150-450); RBC 4.94 m/uL (3.80-5.40); RDW 12.8 % (11.5-15.5); WBC 8.5 k/uL (3.8-10.6)
[2024-05-21] MEDS: SODIUM CHLORIDE 0.9% 1,000 ML IV STA ×2 (21:56→23:19)
[2024-05-21 22:06] LABS: ALT 44 U/L (4-34); AST 36 U/L (14-36); African American GFR (CKD) 85 (>60 ml/min/1.73 sqM); Albumin 3.7 g/dL (3.5-5.0); Alkaline Phosphatase 64 U/L (38-126); Anion Gap 2 mmol/L; Blood Urea Nitrogen 24 mg/dL (7-17); Carbon Dioxide 31 mmol/L (22-30); Chloride 106 mmol/L (98-107); Glucose 66 mg/dL (74-99); Non-African American GFR(CKD) 74 (>60 ml/min/1.73 sqM); Potassium 3.9 mmol/L (3.5-5.1); Sodium 139 mmol/L (137-145); Total Bilirubin 0.2 mg/dL (0.2-1.3); Total Protein 5.9 g/dL (6.3-8.2)
[2024-05-21] MEDS: MORPHINE SULFATE 4 MG/ML SYRINGE IVP STA (22:08)
[2024-05-21 22:09] LABS: INR 1.1 (<1.2); Partial Thromboplastin Time 25.1 sec (22.0-30.0); Prothrombin Time 12.3 sec (10.0-12.5)
[2024-05-21] MEDS: METOCLOPRAMIDE 5 MG/ML 2 ML VIAL IVP STA (22:10)
[2024-05-21] MEDS: diphenhydrAMINE 50 MG/ML 1 ML VIAL IVP STA (22:12)
[2024-05-21] MEDS: methylPREDNISolone SOD SUCCI 125 MG/2 ML VIAL IV STA (23:18)
[2024-05-21] MEDS: HYDROmorphone 0.5 MG/0.5 ML SYRINGE IVP STA (23:18)
[2024-05-21 23:26] LABS: Glucose,Whole Blood 81 mg/dL (70-110)
--- NOTE | 2024-05-22 00:32 | CT ---
EXAM: CT Head Without Intravenous Contrast CLINICAL HISTORY: ITS.REASON CT Reason: recent head injury, migraine TECHNIQUE: Axial computed tomography images of the head/brain without intravenous contrast. CTDI is 49.2 mGy and DLP is 1103.4 mGy-cm. This CT exam was performed using one or more of the following dose reduction techniques: automated exposure control, adjustment of the mA and/or kV according to patient size, and/or use of iterative reconstruction technique. COMPARISON: No relevant prior studies available. FINDINGS: Brain: Unremarkable. No hemorrhage. No significant white matter disease. No edema. Ventricles: Unremarkable. No ventriculomegaly. Bones/joints: Unremarkable. No acute fracture. Soft tissues: Unremarkable. Sinuses: Unremarkable as visualized. No acute sinusitis. Mastoid air cells: Unremarkable as visualized. No mastoid effusion. IMPRESSION: No evidence of acute intracranial pathology.
[2024-05-22 01:14] VITALS: BP 121/79; PULSE 87; TEMP 97.7
== END 2024-05-22 01:19 | disposition home or self-care (01) ==
LOC: EC 20:51
DX: G43.E09 Chronic migraine with aura, not intractable, without status migrainosus (principal); F80.81 Childhood onset fluency disorder; Z88.6 Allergy status to analgesic agent; Z88.5 Allergy status to narcotic agent; Z88.1 Allergy status to other antibiotic agents; Z88.8 Allergy status to other drugs, medicaments and biological substances
CPT/HCPCS: 36415; 80053; 85025; 85610; 85730; 70450; 99284; 96374; 96375 ×3; 96361 ×2; J2270; J1200; J2765; J1171; J2919

== ENCOUNTER → 2024-05-26 | Outpatient (CLI) | payer BC ==
[2024-05-26 10:17] VITALS: BMI 34.2
[2024-05-26 10:19] VITALS: BP 131/83; PULSE 103; RESP 16; TEMP 98.3
--- NOTE | 2024-05-26 13:42 | P.HPBAR ---
Bariatric H&P - History & Physicial H&P Date: 05/26/24 History & Physicial: Visit/CC: f/u Patient initial contact: Initial weight: 312 kg Initial weight in pounds: 687.84 Height: 5 ft 7 in Initial BMI: 107.7 Last weight: Current weight: 99.138 kg Current weight in pounds: 218.56 Current BMI: 34.2 [place] body weight (based on NIH guidelines): 61.235 kg Excess body weight loss: 84.8% The patient is a 39 year-old F who presents for Bariatric Assessment. Patient presents today for bariatric follow-up. Patient has insurance authorization for panniculectomy. Patient is a large formed pannus due to weight loss and excess of 100 pounds. Past Medical History Past Medical History: Asthma, Diabetes Mellitus, Fibromyalgia, GERD/Reflux, Sleep Apnea/CPAP/BIPAP, Thyroid Disorder Additional Past Medical History / Comment(s): Migraines with aura, DDD, NIDDM type II, diverticulitis with perforation/colostomy since reversed, IBS, chronic seroma, CARLITOS/no device, polycystic ovaries, hypothyroid, season allergies History of Any Multi-Drug Resistant Organisms: None Reported Past Surgical History: Bariatric Surgery, Cholecystectomy, Hysterectomy, Uterine Ablation Additional Past Surgical History / Comment(s): 06/06/21 sleeve gastrectomy, rt Breast biopsy. bowel resection with colostomy/ later colostomy reversal, abdominal surgery to remove scar tissue, EGD, colonoscopy, back pain procedures uterine ablation, lysis of adhesions 07/11/22, 02/04/24-laparscopic hysterectomy Past Anesthesia/Blood Transfusion Reactions: No Reported Reaction Additional Past Anesthesia/Blood Transfusion Reaction / Comm: no hx blood transfusion, received monoclonal antibodies in Feb 2021 Past Psychological History: Anxiety, Bipolar, Depression Additional Psychological History / Comment(s): Pt has eating disorder-binge eater, borderline personality disorder. Pt resides with her boyfriend and his mother. She is independent. Smoking Status: Never smoker Past Alcohol Use History: Occasional Past Drug Use History: None Reported - Past Family History Mother History Unknown: Yes Family Medical History: COPD Additional Family Medical History / Comment(s): Mother from COPD at the age of 55 yrs. Brother(s) Family Medical History: Diabetes Mellitus Father Family Medical History: Unable to Obtain Surgical - Exam Vital Signs Temp Pulse Resp BP 98.3 F 103 H 16 131/83 05/26/24 09:31 05/26/24 09:31 05/26/24 09:31 05/26/24 09:31 - General well developed, well nourished, no distress - Eyes PERRL - ENT normal pinna - Neck no masses - Respiratory normal expansion - Cardiovascular Rhythm: regular - Abdomen Large abdominal wall pannus which hangs to below the pubic area Abdomen: soft, non tender Bariatric Assessment & Plan Plan: Large pannus. Patient undergo panniculectomy. Patient wears is not a cosmetic procedure. Bariatric Checklist Checklist: Plan: Checklist: EGD: 1. Hiatal hernia: 2. H. Pylori: HgbA1c: Vitamin D: Smoking: Never smoker Primary care physician referral: JOSE DAVILA/DR AVERY Psychiatry clearance: Cardiology clearance: Sleep study: Diet journal: VTE risk score: VTE risk level: Rehab needs at discharge:
== END ==
LOC: BARWHC3 09:11
PROVIDERS: ATTEND Surgery
DX: L98.7 Excessive and redundant skin and subcutaneous tissue (principal); Z88.1 Allergy status to other antibiotic agents; Z88.5 Allergy status to narcotic agent; Z88.8 Allergy status to other drugs, medicaments and biological substances
CPT/HCPCS: 99211

== ENCOUNTER 2024-06-03 18:20 | Emergency (ER) | payer BC ==
[2024-06-03] MEDS ORDERED: HYDROmorphone 1 MG/ML 1 ML SYRINGE IM STA (18:42)
--- NOTE | 2024-06-03 18:45 | ED ---
Recheck HPI - General Stated Complaint: day 3 speech impairments Time Seen by Provider: 06/03/24 18:37 Source: RN notes reviewed, old records reviewed Mode of arrival: ambulatory Limitations: no limitations - History of Present Illness Initial Comments: This is a 39-year-old female to ER for migraine headache chronic migraines uncontrolled headache with nausea vomiting at home. Patient states she cannot take pain medication. No travel history or sick contacts no trauma or fever MD Complaint: medication refill request Returns Today for: persistent/worsening pain related to initial visit Symptoms Since Prior Visit: worsening pain Associated Symptoms: none Treatments Prior to Arrival: Given Pain Meds on - Related Data Home Medications Medication Instructions Recorded Confirmed Levothyroxine Sodium [Synthroid] 50 mcg PO DAILY 05/05/14 05/26/24 Cetirizine HCl [Zyrtec] 10 mg PO DAILY 08/30/19 05/26/24 Pregabalin [Lyrica] 225 mg PO BID 08/30/19 05/26/24 Atogepant [Qulipta] 60 mg PO HS 11/28/21 05/26/24 Nystatin 100,000 Unit/gm Powd 1 applic TOPICAL BID PRN 12/12/21 05/26/24 [Mycostatin Powder] Ergocalciferol (Vitamin D2) 1,250 mcg PO GARCIA 05/19/22 05/26/24 [Drisdol (50,000 Iu)] Fluconazole 150 mg PO DAILY PRN 05/19/22 05/26/24 Acetaminophen Tab [Tylenol] 650 mg PO Q6H PRN 10/02/22 05/26/24 Lasmiditan Succinate [Reyvow] 50 mg PO DAILY PRN 10/02/22 05/26/24 Metoclopramide [Reglan] 10 mg PO DAILY PRN 10/02/22 05/26/24 Ketorolac [Toradol] 10 mg PO Q6HR PRN 10/30/22 05/26/24 buPROPion XL [Wellbutrin XL] 300 mg PO HS 01/08/23 05/26/24 Vit No.179/Iron/Folic 1 each PO DAILY 07/02/23 05/26/24 [ Tablet] Biotin 5,000 mcg PO DAILY 11/19/23 05/26/24 HYDROcodone/APAP 10-325MG [[place] 1 tab PO BID PRN 11/19/23 05/26/24 10-325] Lisdexamfetamine Dimesylate 70 mg PO QAM 02/11/24 05/26/24 [Vyvanse] hydrOXYzine HCL [Atarax] 100 mg PO HS PRN 04/28/24 05/26/24 tiZANidine [Zanaflex] 2 mg PO HS PRN 04/28/24 05/26/24 Sertraline [Zoloft] 1 tab PO DAILY 05/26/24 05/26/24 buPROPion SR [Wellbutrin SR] 150 mg PO DAILY 05/26/24 05/26/24 Allergies Allergy/AdvReac Type Severity Reaction Status Date / Time cephalexin [From Keflex] Allergy Rash/Hives Verified 06/03/24 19:02 codeine AdvReac Hallucinati Verified 06/03/24 19:02 ons tramadol AdvReac Hallucinati Verified 06/03/24 19:02 ons valacyclovir HCl AdvReac BLURRED Verified 06/03/24 19:02 [From Valtrex] VISION Review of Systems ROS Statement: Those systems with pertinent positive or pertinent negative responses have been documented in the HPI. ROS Other: All systems not noted in ROS Statement are negative. Past Medical History Past Medical History: Asthma, Diabetes Mellitus, Fibromyalgia, GERD/Reflux, Sleep Apnea/CPAP/BIPAP, Thyroid Disorder Additional Past Medical History / Comment(s): Migraines with aura, DDD, NIDDM type II, diverticulitis with perforation/colostomy since reversed, IBS, chronic seroma, CARLITOS/no device, polycystic ovaries, hypothyroid, season allergies History of Any Multi-Drug Resistant Organisms: None Reported Past Surgical History: Bariatric Surgery, Cholecystectomy, Hysterectomy, Uterine Ablation Additional Past Surgical History / Comment(s): 06/06/21 sleeve gastrectomy, rt Breast biopsy. bowel resection with colostomy/ later colostomy reversal, abdominal surgery to remove scar tissue, EGD, colonoscopy, back pain procedures uterine ablation, lysis of adhesions 07/11/22, 02/04/24-laparscopic hysterectomy Past Anesthesia/Blood Transfusion Reactions: No Reported Reaction Additional Past Anesthesia/Blood Transfusion Reaction / Comment(s): no hx blood transfusion, received monoclonal antibodies in Feb 2021 Past Psychological History: Anxiety, Bipolar, Depression Additional Psychological History / Comment(s): Pt has eating disorder-binge eater, borderline personality disorder. Pt resides with her boyfriend and his mother. She is independent. Smoking Status: Never smoker Past Alcohol Use History: Occasional Past Drug Use History: None Reported - Past Family History Mother History Unknown: Yes Family Medical History: COPD Additional Family Medical History / Comment(s): Mother from COPD at the age of 55 yrs. Brother(s) Family Medical History: Diabetes Mellitus Father Family Medical History: Unable to Obtain General Exam General appearance: alert, in no apparent distress Head exam: Present: atraumatic, normocephalic, normal inspection Eye exam: Present: normal appearance, PERRL, EOMI. Absent: scleral icterus, conjunctival injection, periorbital swelling ENT exam: Present: normal exam, mucous membranes moist Neck exam: Present: normal inspection. Absent: tenderness, meningismus, lymphadenopathy Respiratory exam: Present: normal lung sounds bilaterally. Absent: respiratory distress, wheezes, rales, rhonchi, stridor Cardiovascular Exam: Present: regular rate, normal rhythm, normal heart sounds. Absent: systolic murmur, diastolic murmur, rubs, gallop, clicks GI/Abdominal exam: Present: soft, normal bowel sounds. Absent: distended, tenderness, guarding, rebound, rigid Extremities exam: Present: normal inspection, full ROM, normal capillary refill. Absent: tenderness, pedal edema, joint swelling, calf tenderness Back exam: Present: normal inspection Neurological exam: Present: alert, oriented X3, CN II-XII intact Psychiatric exam: Present: normal affect, normal mood Skin exam: Present: warm, dry, intact, normal color. Absent: rash Course Vital Signs 06/03/24 06/03/24 19:00 19:32 Temperature 98.7 F Pulse Rate 90 90 Respiratory 16 18 Rate Blood Pressure 118/76 120/73 O2 Sat by Pulse 100 96 Oximetry - Reevaluation(s) Reevaluation #1: Medical records reviewed Reevaluation #2: Patient symptoms improved Reevaluation #3: Patient informed of results questions answered Reevaluation #4: Was pt. sent in by a medical professional or institution (, PA, [employer], urgent care, hospital, or long-term...) When possible be specific @ -no Did you speak to anyone other than the patient for history (EMS, parent, family, police, friend...)? What history was obtained from this source @ -no Did you review nursing and triage notes (agree or disagree)? Why? @ -agree Are old charts reviewed (outside hosp., previous admission, EMS record, old EKG, old radiological studies, urgent care reports/EKG's, long-term records)? Report findings @ -yes Differential Diagnosis (chest pain, altered mental status, abdominal pain women, abdominal pain men, vaginal bleeding, weakness, fever, dyspnea, syncope, headache, dizziness, GI bleed, back pain, seizure, CVA, palpatations, mental health, musculoskeletal)? @ -prior EKG interpreted by me (3pts min.). @ -no X-rays interpreted by me (1pt min.). @ -no CT interpreted by me (1pt min.). @ -no U/S interpreted by me (1pt. min.). @ -no What testing was considered but not performed or refused? (CT, X-rays, U/S, labs)? Why? @ -none What meds were considered but not given or refused? Why? @ -none Did you discuss the management of the patient with other professionals (professionals i.e. , PA, [employer], lab, RT, psych nurse, public health social worker, manager speech, teacher, founder chairman and chief creative officer, protective services case worker)? Give summary @ -no Was smoking cessation discussed for >3mins.? @ -no Was critical care preformed (if so, how long)? @ -no Were there social determinants of health that impacted care today? How? (Homelessness, low income, unemployed, alcoholism, drug addiction, transportation, low edu. Level, literacy, decrease access to med. care, fci, rehab)? @ -none Was there de-escalation of care discussed even if they declined (Discuss DNR or withdrawal of care, Hospice)? DNR status @ -no What co-morbidities impacted this encounter? (DM, HTN, Smoking, COPD, CAD, Cancer, CVA, ARF, Chemo, Hep., AIDS, mental health diagnosis, sleep apnea, morbid obesity)? @ -none Was patient admitted / discharged? Hospital course, mention meds given and rou te, prescriptions, significant lab abnormalities, going to OR and other pertinent info. @ - 39 female to ER with acute on chronic headache migraine headache patient has headache improved here in the ER and can be discharged home Discharge Undiagnosed new problem with uncertain prognosis? @ -no Drug Therapy requiring intensive monitoring for toxicity (Heparin, Nitro, Insulin, Cardizem)? @ -no Were any procedures done? @ -no Diagnosis/symptom? @ -Chronic headache Acute, or Chronic, or Acute on Chronic? @ -Acute Uncomplicated (without systemic symptoms) or Complicated (systemic symptoms)? @ -Complicated Side effects of treatment? @ -no Exacerbation, Progression, or Severe Exacerbation? @ -exacerbation Poses a threat to life or bodily function? How? (Chest pain, [place], [place], pneumonia, PE, COPD, DKA, ARF, appy, cholecystitis, CVA, Diverticulitis, Homicidal, Suicidal, threat to staff... and all critical care pts) @ -yes severe headache Reevaluation #5: Differential Headache: Migraine, tension, cluster, carbon monoxide, central venous thrombosis, pension karma temporal arteritis, acute closure glaucoma, intercranial hemorrhage, mastoiditis, sinusitis, head injury, this is not meant to be an all-inclusive list. Medical Decision Making - Medical Decision Making 39 female to ER with acute on chronic headache migraine headache patient has headache improved here in the ER and can be discharged home Disposition Clinical Impression: Migraine headache Disposition: HOME SELF-CARE Condition: Fair Instructions (If sedation given, give patient instructions): Acute Headache (ED) Is patient prescribed a controlled substance at d/c from ED?: No Referrals: Prerna Vic[facility] [REFERRING] - 1-2 days Time of Disposition: 19:00
[2024-06-03 19:02] VITALS: PULSE 90; TEMP 98.7
[2024-06-03] MEDS: ONDANSETRON ODT 4 MG TAB PO STA (19:34)
[2024-06-03] MEDS: HYDROmorphone 1 MG/ML 1 ML SYRINGE IM STA (19:34)
[2024-06-03] MEDS: diphenhydrAMINE 50 MG CAP PO STA (19:34)
[2024-06-03 19:36] VITALS: BP 120/73; RESP 18
== END 2024-06-03 19:36 | disposition home or self-care (01) ==
LOC: EC 18:20
DX: G43.E09 Chronic migraine with aura, not intractable, without status migrainosus (principal); Z88.5 Allergy status to narcotic agent; Z88.1 Allergy status to other antibiotic agents; Z88.8 Allergy status to other drugs, medicaments and biological substances
CPT/HCPCS: 99283; 96372; J1171

== ENCOUNTER → 2024-06-06 | Outpatient (CLI) | payer BC ==
[2024-06-06 20:18] LABS: HCT 42.8 % (37.2-46.3); HGB 12.9 g/dL (12.0-15.0); MCH 28.5 pg (27.0-32.0); MCHC 30.1 g/dL (32.0-37.0); MCV 94.5 FL (80.0-97.0); Mean Platelet Volume 10.5 FL (9.5-12.2); NRBC Per 100 WBC 0 X 10*3/uL (0.00-0.01); Platelet Count 247 X 10*3/uL (140-440); RBC 4.53 X 10*6/uL (4.10-5.20); RDW 13.9 % (11.5-14.5); WBC 3.57 X 10*3/uL (4.50-10.00)
[2024-06-06 20:49] LABS: BUN/Creat Ratio 25.62 Ratio (12.00-20.00); Blood Urea Nitrogen 20.5 mg/dL (9.0-27.0); Carbon Dioxide 28.6 mmol/L (21.6-31.8); Chloride 107 mmol/L (96-109); Glucose 125 mg/dL (70-110); Potassium 5.1 mmol/L (3.5-5.5); Sodium 144 mmol/L (135-145)
[2024-06-06 20:50] LABS: ALT 96 U/L (8-44); AST 68 U/L (13-35); Albumin 3.7 g/dL (3.8-4.9); Albumin/Globulin Ratio 1.76 Ratio (1.60-3.17); Alkaline Phosphatase 134 U/L (41-126); Calcium 8.7 mg/dL (8.7-10.3); Globulin 2.1 g/dL (1.6-3.3); Total Bilirubin <0.2 mg/dL (0.3-1.2); Total Protein 5.8 g/dL (6.2-8.2)
[2024-06-06 21:33] LABS: Basophils # (A) 0.04 X 10*3/uL (0.00-0.10); Basophils % (A) 1.1 %; Eosinophils # (A) 0.07 X 10*3/uL (0.04-0.35); Immature Grans, Automated 0 %; Lymphocytes % (A) 58.8 %; Monocytes # (A) 0.67 X 10*3/uL (0.20-1.00); Monocytes % (A) 18.8 %; Neutrophils # (A) 0.69 X 10*3/uL (1.80-7.70); Neutrophils % (A) 19.3 %; RBC Morphology Normal (Normal)
== END | disposition home or self-care (01) ==
LOC: LABPAT 12:44
PROVIDERS: ATTEND Surgery
DX: Z01.818 Encounter for other preprocedural examination (principal)
CPT/HCPCS: 80053; 85025; 93005

== ENCOUNTER 2024-06-11 20:21 | Emergency (ER) | payer BC ==
[2024-06-11 20:29] VITALS: RESP 18
--- NOTE | 2024-06-11 20:45 | ED ---
Lower Extremity Injury HPI - General Chief Complaint: Extremity Injury, Lower Stated Complaint: fall, L leg numbness Time Seen by Provider: 06/11/24 20:30 Source: patient, RN notes reviewed Mode of arrival: wheelchair - History of Present Illness Initial Comments: This is a 39-year-old female presenting to the emergency department for complaint of left leg pain. She states that earlier this morning she was stepping out of her car into her driveway when she slipped landing onto the left side of her buttock. She denies hitting her head, loss of consciousness, other injuries at the time of the fall. Patient states that she has taken a [place] at home that is prescribed to her by her PCP with minimal relief. She endorses intermittent paresthesias on the left leg. She denies loss of bladder or bowel continence or saddle anesthesias since the injury. Patient is able to ambulate with no difficulties. - Related Data Home Medications Medication Instructions Recorded Confirmed Levothyroxine Sodium [Synthroid] 50 mcg PO DAILY 05/05/14 05/26/24 Cetirizine HCl [Zyrtec] 10 mg PO DAILY 08/30/19 05/26/24 Pregabalin [Lyrica] 225 mg PO BID 08/30/19 05/26/24 Atogepant [Qulipta] 60 mg PO HS 11/28/21 05/26/24 Nystatin 100,000 Unit/gm Powd 1 applic TOPICAL BID PRN 12/12/21 05/26/24 [Mycostatin Powder] Ergocalciferol (Vitamin D2) 1,250 mcg PO GARCIA 05/19/22 05/26/24 [Drisdol (50,000 Iu)] Fluconazole 150 mg PO DAILY PRN 05/19/22 05/26/24 Acetaminophen Tab [Tylenol] 650 mg PO Q6H PRN 10/02/22 05/26/24 Lasmiditan Succinate [Reyvow] 50 mg PO DAILY PRN 10/02/22 05/26/24 Metoclopramide [Reglan] 10 mg PO DAILY PRN 10/02/22 05/26/24 Ketorolac [Toradol] 10 mg PO Q6HR PRN 10/30/22 05/26/24 buPROPion XL [Wellbutrin XL] 300 mg PO HS 01/08/23 05/26/24 Vit No.179/Iron/Folic 1 each PO DAILY 07/02/23 05/26/24 [ Tablet] Biotin 5,000 mcg PO DAILY 11/19/23 05/26/24 HYDROcodone/APAP 10-325MG [[place] 1 tab PO BID PRN 11/19/23 05/26/24 10-325] Lisdexamfetamine Dimesylate 70 mg PO QAM 02/11/24 05/26/24 [Vyvanse] hydrOXYzine HCL [Atarax] 100 mg PO HS PRN 04/28/24 05/26/24 tiZANidine [Zanaflex] 2 mg PO HS PRN 04/28/24 05/26/24 Sertraline [Zoloft] 1 tab PO DAILY 05/26/24 05/26/24 buPROPion SR [Wellbutrin SR] 150 mg PO DAILY 05/26/24 05/26/24 Allergies Allergy/AdvReac Type Severity Reaction Status Date / Time cephalexin [From Keflex] Allergy Rash/Hives Verified 06/11/24 20:29 codeine AdvReac Hallucinati Verified 06/11/24 20:29 ons tramadol AdvReac Hallucinati Verified 06/11/24 20:29 ons valacyclovir HCl AdvReac BLURRED Verified 06/11/24 20:29 [From Valtrex] VISION Review of Systems ROS Statement: Those systems with pertinent positive or pertinent negative responses have been documented in the HPI. ROS Other: All systems not noted in ROS Statement are negative. Past Medical History Past Medical History: Asthma, Diabetes Mellitus, Fibromyalgia, GERD/Reflux, Sleep Apnea/CPAP/BIPAP, Thyroid Disorder Additional Past Medical History / Comment(s): Migraines with aura, DDD, NIDDM type II, diverticulitis with perforation/colostomy since reversed, IBS, chronic seroma, CARLITOS/no device, polycystic ovaries, hypothyroid, season allergies History of Any Multi-Drug Resistant Organisms: None Reported Past Surgical History: Bariatric Surgery, Cholecystectomy, Hysterectomy, Uterine Ablation Additional Past Surgical History / Comment(s): 06/06/21 sleeve gastrectomy, rt Breast biopsy. bowel resection with colostomy/ later colostomy reversal, abdominal surgery to remove scar tissue, EGD, colonoscopy, back pain procedures uterine ablation, lysis of adhesions 07/11/22, 02/04/24-laparscopic hysterectomy Past Anesthesia/Blood Transfusion Reactions: No Reported Reaction Additional Past Anesthesia/Blood Transfusion Reaction / Comment(s): no hx blood transfusion, received monoclonal antibodies in Feb 2021 Past Psychological History: Anxiety, Bipolar, Depression Smoking Status: Never smoker Past Alcohol Use History: Occasional Past Drug Use History: None Reported - Past Family History Mother History Unknown: Yes Family Medical History: COPD Additional Family Medical History / Comment(s): Mother from COPD at the age of 55 yrs. Brother(s) Family Medical History: Diabetes Mellitus Father Family Medical History: Unable to Obtain General Exam ENT exam: Present: normal exam, mucous membranes moist Respiratory exam: Present: normal lung sounds bilaterally. Absent: respiratory distress, wheezes, rales, rhonchi, stridor Cardiovascular Exam: Present: regular rate, normal rhythm, normal heart sounds. Absent: systolic murmur, diastolic murmur, rubs, gallop, clicks GI/Abdominal exam: Present: soft, normal bowel sounds. Absent: distended, tenderness, guarding, rebound, rigid Extremities exam: Present: normal inspection, full ROM, normal capillary refill. Absent: tenderness, pedal edema, joint swelling, calf tenderness Back exam: Present: normal inspection, tenderness (left pelvis/lumbar spine). Absent: CVA tenderness (R), CVA tenderness (L) Expanded Back exam: Absent: saddle anesthesia Neurological exam: Present: alert, oriented X3, CN II-XII intact Course Vital Signs 06/11/24 06/11/24 20:27 22:15 Temperature 98.1 F 98.0 F Pulse Rate 82 81 Respiratory 18 18 Rate Blood Pressure 117/80 115/80 O2 Sat by Pulse 100 99 Oximetry Medical Decision Making - Medical Decision Making Was pt. sent in by a medical professional or institution (, PA, CREATIVE RECRUITER, urgent care, hospital, or fci...) When possible be specific @ -No Did you speak to anyone other than the patient for history (EMS, parent, family, police, friend...)? What history was obtained from this source @ -No Did you review nursing and triage notes (agree or disagree)? Why? @ -I reviewed and agree with nursing and triage notes Were old charts reviewed (outside hosp., previous admission, EMS record, old EKG, old radiological studies, urgent care reports/EKG's, fci records)? Report findings @ -No old charts were reviewed Differential Diagnosis (chest pain, altered mental status, abdominal pain women, abdominal pain men, vaginal bleeding, weakness, fever, dyspnea, syncope, headache, dizziness, GI bleed, back pain, seizure, CVA, palpatations, mental health, musculoskeletal)? @ -Differential Back Pain: Strain, zoster, cauda equina syndrome, epidural abscess, vertebral osteomyelitis, discitis, fracture, subluxation, disc herniation, DJD, spinal st enosis, dissection, AAA, pancreatitis, peptic ulcer disease, pyelonephritis, kidney stone, this is not meant to be an all-inclusive list. EKG interpreted by me (3pts min.). @ -None X-rays interpreted by me (1pt min.). @ -X-ray of the sacrum, coccyx, left hip and AP pelvis no acute osseous abnormality. CT interpreted by me (1pt min.). @ -None done U/S interpreted by me (1pt. min.). @ -None done What testing was considered but not performed or refused? (CT, X-rays, U/S, labs)? Why? @ -None What meds were considered but not given or refused? Why? @ -None Did you discuss the management of the patient with other professionals (professionals i.e. , PA, CREATIVE RECRUITER, lab, RT, psych nurse, addiction social worker, basket filler, teacher, property officer, pillowcase maker)? Give summary @ -No Was smoking cessation discussed for >3mins.? @ -No Was critical care preformed (if so, how long)? @ -No Were there social determinants of health that impacted care today? How? (Homelessness, low income, unemployed, alcoholism, drug addiction, transportation, low edu. Level, literacy, decrease access to med. care, group home, rehab)? @ -No Was there de-escalation of care discussed even if they declined (Discuss DNR or withdrawal of care, Hospice)? DNR status @ -No What co-morbidities impacted this encounter? (DM, HTN, Smoking, COPD, CAD, Cancer, CVA, ARF, Chemo, Hep., AIDS, mental health diagnosis, sleep apnea, morbid obesity)? @ -None Was patient admitted / discharged? Hospital course, mention meds given and route, prescriptions, significant lab abnormalities, going to OR and other pertinent info. @ -Discharge. 39-year-old female presenting with left-sided pelvic pain and sacral pain after fall. there are no red flag findings concerning for cauda equina symptoms abdominal, chest anesthesias. Negative straight leg test bilaterally. She does have pain medication. X-ray imaging is negative. Supportive treatment discussed at bedside. Case discussed with Dr. Flores Undiagnosed new problem with uncertain prognosis? @ -No Drug Therapy requiring intensive monitoring for toxicity (Heparin, Nitro, Insulin, Cardizem)? @ -No Were any procedures done? @ -No Diagnosis/symptom? @ -pelvic pain, hip and leg pain Acute, or Chronic, or Acute on Chronic? @ -acute Uncomplicated (without systemic symptoms) or Complicated (systemic symptoms)? @ -uncomplicated Side effects of treatment? @ -No Exacerbation, Progression, or Severe Exacerbation? @ -No Poses a threat to life or bodily function? How? (Chest pain, [place], [place], pneumonia, PE, COPD, DKA, ARF, appy, cholecystitis, CVA, Diverticulitis, Homicidal, Suici ludmila, threat to staff... and all critical care pts) @ -No Disposition Clinical Impression: Fall, Hip pain Disposition: HOME SELF-CARE Condition: Good Instructions (If sedation given, give patient instructions): Hip Pain (ED) Additional Instructions: Please return to the Emergency Department if symptoms worsen or any other concerns. Is patient prescribed a controlled substance at d/c from ED?: No Referrals: Alfred Varela [Primary Care Provider] - 1-2 days Time of Disposition: 22:01
[2024-06-11] MEDS: MORPHINE SULFATE 4 MG/ML SYRINGE IM STA (20:47)
--- NOTE | 2024-06-11 21:42 | XR ---
EXAMINATION TYPE: XR sacrum coccyx DATE OF EXAM: 06/11/2024 9:16 PM COMPARISON: None CLINICAL INDICATION: Female, 39 years old with history of fall, pain; PHH, pain TECHNIQUE: XR sacrum coccyx, examined in frontal and lateral projections. FINDINGS: There is no evidence of fracture or dislocation. There is no soft tissue abnormality. No a bnormal calcifications are present. Multilevel degenerative changes of the lower spine. IMPRESSION: No acute osseous pathology. [facility], , 06/11/2024 9:40 PM
--- NOTE | 2024-06-11 21:42 | XR ---
EXAMINATION TYPE: XR Hip LT and AP Pelvis DATE OF EXAM: 06/11/2024 9:16 PM COMPARISON: 05/09/2023 CLINICAL INDICATION: Female, 39 years old with history of fall, pain; PHH, pain TECHNIQUE: XR Hip LT and AP Pelvis; hip was examined in the frontal and lateral projections and a AP pelvis. FINDINGS: No evidence for acute process, joint dislocation or significant soft tissue swelling. IMPRESSION: No acute process. [facility], , 06/11/2024 9:39 PM
[2024-06-11 22:16] VITALS: BP 115/80; PULSE 81; TEMP 98
== END 2024-06-11 22:20 | disposition home or self-care (01) ==
LOC: EC 20:21
DX: M25.552 Pain in left hip (principal); R10.2 Pelvic and perineal pain; M79.605 Pain in left leg
CPT/HCPCS: 72220; 73502; 99283; 96372; J2270

== ENCOUNTER 2024-06-30 08:26 | Inpatient (IN) | payer BC ==
[~2024-06-30 08:26] MED LIST changes: -LACTATED RINGERS 1,000 ML IV SCH; +LIDOCAINE 1% (10MG/ML) FOR IV START INTRADERMA PRN; +fentaNYL (PF) 50 MCG/ML 2 ML AMP IVP PRN
[2024-06-30] MEDS: IV FLUID CONTINUATION 1,000 ML IV ONE ×3 (08:44→14:55)
[2024-06-30 09:04] LABS: Glucose,Whole Blood 88 mg/dL (70-110)
[2024-06-30] MEDS: DEXAMETHASONE SOD PHOSPHATE 4 MG/ML 1 ML VIAL IV ONE (09:12)
[2024-06-30] MEDS: ONDANSETRON 4 MG/2 ML VIAL IVP ONE (09:12)
[2024-06-30] MEDS: LACTATED RINGERS 1,000 ML IV SCH ×2 (09:12→15:34)
[2024-06-30] MEDS: MIDAZOLAM 2 MG/2 ML VIAL IV PRN (10:00)
[2024-06-30] MEDS: ACETAMINOPHEN TAB 500 MG TAB PO STA (10:31)
[2024-06-30] MEDS: HEPARIN SODIUM,PORCINE 5,000 UNIT/ML 1 ML VIAL SQ STA (10:32)
[2024-06-30] MEDS ORDERED: LIDOCAINE 1% INJ 10MG/ML (20 ML MDV) ONE (10:57)
[2024-06-30] MEDS ORDERED: PROPOFOL 10 MG/ML 20 ML VIAL IV ONE (10:57)
[2024-06-30] MEDS ORDERED: fentaNYL (PF) 50 MCG/ML 2 ML AMP ONE (10:57)
[2024-06-30] MEDS ORDERED: SUCCINYLCHOLINE CHLORIDE 200 MG/10 ML VIAL IV ONE (10:57)
[2024-06-30] MEDS ORDERED: MIDAZOLAM 2 MG/2 ML VIAL ONE (10:57)
[2024-06-30] MEDS ORDERED: DEXAMETHASONE SOD PHOSPHATE 4 MG/ML 1 ML VIAL ONE (10:57)
[2024-06-30] MEDS ORDERED: ROPIVACAINE 5 MG/ML 30 ML VIAL ONE (10:57)
--- NOTE | 2024-06-30 12:04 | P.ANPRN ---
Procedure Note - Anesthesia - Nerve Block Performed Bilateral Erector Spinae Single Time Out Performed: Yes Date of Procedure: 06/30/24 Procedure Start Time: 10:00 Procedure Stop Time: 10:05 Location of Patient: PreOp Indication: Acute Post-Operative Pain, Analgesia, Requested by Surgeon Sedation Type: Sedate with meaningful contact maintained Preparation: Sterile Prep Position: Prone Catheter: None Needle Types: Pajunk Needle Gauge: 21 Ultrasound used to visualize needle placement: Yes Ultrasound used to observe medication spread: Yes Injectate: 0.5% Ropivacaine (see comment for volume) (Ropiv 20ml+Decadron 4mg, Needle level R54---Rznn side.) Blood Aspirated: No Pain Paresthesia on Injection Noted: No Resistance on Injection: Normal Image Stored and Saved: Yes Events: Uneventful and Well Tolerated
[2024-06-30] MEDS ORDERED: NALOXONE 0.4 MG/ML 1 ML VIAL IV PRN (14:11)
[2024-06-30] MEDS ORDERED: ACETAMINOPHEN TAB 325 MG TAB PO PRN (14:11)
[2024-06-30] MEDS: HYDROmorphone 0.5 MG/0.5 ML SYRINGE IVP PRN (14:13)
[2024-06-30] MEDS: droPERidol 2.5 MG/ML VIAL IVP ONE (14:48)
[2024-06-30 15:18] LABS: Glucose,Whole Blood 151 mg/dL (70-110)
--- NOTE | 2024-06-30 17:31 | P.OP ---
Date of Procedure: 06/30/24 Preoperative Diagnosis: Panniculus Postoperative Diagnosis: Panniculus Incisional hernia Procedure(s) Performed: Panniculectomy Repair of incisional hernia Excision of mesh Anesthesia: GILL Surgeon: Brayan Meadows Estimated Blood Loss (ml): 100 Pathology: other (Mesh, panniculus) Condition: stable Disposition: PACU Description of Procedure: The patient is placed on the op table in supine position. She received general anesthesia. Her abdomen was prepped and draped you sterile fashion. Patient had large panniculus. There is evidence of chronic skin irritation. The pannicular flaps were marked with a marking pen. And then using a 15 blade the skin was incised. Use electrocautery subcu tissue divided. Subcu tissue divided down to the level of fascia. Next the pannicular flap was elevated using electrocautery. The dissection occurred to the level of the sternum medially and the costal margin laterally. Several small perforating vessels were ligated with 3-0 silk ties. Multiple spots were coagulated. The panniculus was then marked. The redundant skin and fat was then excised. The patient had evidence of a midline incisional hernia. Patient also had evidence of a previous hernia pair where mesh was found floating above the fascia. This mesh was dissected and sent to pathology. The fascial defect measured approximately 10 x 5 cm. This was closed with [id number] 0 Ethibond suture. The midline plication was also was then performed using #1 STRATAFIX suture. 2 ADAN drains were placed on top the fascia brought through separate stab incisions in the pubic area. Abigail's fascia then closed with 0 Vicryl. The skin was closed with interrupted 3-0 Monocryl suture. Dermabond was applied. Patient tolerated well. She was sent to recovery in stable condition.
[2024-06-30] MEDS: KETOROLAC 15 MG/ML 1 ML VIAL IVP SCH (17:45)
[2024-06-30] MEDS: ONDANSETRON 4 MG/2 ML VIAL IVP PRN (20:22)
[2024-06-30] MEDS: HYDROmorphone 1 MG/ML 1 ML SYRINGE IVP PRN (20:29)
[2024-07-01] MEDS: METOCLOPRAMIDE 5 MG/ML 2 ML VIAL IVP PRN (00:13)
[2024-07-01] MEDS: ENOXAPARIN 40 MG/0.4 ML SYRINGE SQ SCH (08:00)
[2024-07-01 10:01] LABS: African American GFR (CKD) 65 (>60 ml/min/1.73 sqM); Anion Gap 7 mmol/L; Blood Urea Nitrogen 30 mg/dL (7-17); Calcium 7.8 mg/dL (8.4-10.2); Carbon Dioxide 25 mmol/L (22-30); Chloride 101 mmol/L (98-107); Glucose 108 mg/dL (74-99); Non-African American GFR(CKD) 56 (>60 ml/min/1.73 sqM); Potassium 5.2 mmol/L (3.5-5.1); Sodium 133 mmol/L (137-145)
[2024-07-01] MEDS: ACETAMINOPHEN IV (For NPO) 1,000 MG in EMPTY BAG 1 BAG IVPB SCH (10:11)
[2024-07-01 10:46] LABS: Basophils % (A) 0 %; Eosinophils % (A) 0 %; HCT 28.5 % (34.0-46.0); Lymphocytes # (A) 1.3 k/uL (1.0-4.8); Lymphocytes % (A) 10 %; MCHC 32.2 g/dL (31.0-37.0); MCV 93.1 fL (80.0-100.0); Mean Platelet Volume 8.1; Monocytes # (A) 0.6 k/uL (0-1.0); Monocytes % (A) 5 %; Neutrophils # (A) 11.1 k/uL (1.3-7.7); Neutrophils % (A) 85 %; Platelet Count 298 k/uL (150-450); RBC 3.07 m/uL (3.80-5.40); RDW 13.7 % (11.5-15.5); WBC 13.1 k/uL (3.8-10.6)
[2024-07-01 10:53] LABS: HGB 9.2 gm/dL (11.4-16.0)
--- NOTE | 2024-07-01 13:21 | P.PN ---
Subjective Progress Note Date: 07/01/24 SURGICAL PROGRESS NOTE CHIEF COMPLAINT: Panniculus HISTORY OF PRESENT ILLNESS: Patient is postop day #1 status post panniculectomy, repair of incisional hernia and excision of mesh. Patient had complained of nausea and dizziness yesterday she was hypotensive and did require 2 L fluid bolus. Patient's blood pressure does remain on the lower side. She has a little less nausea. She is having flatus. Patient reports being able to urinate. She did require to be straight cath during the night. She does complain of a headache. 1 ADAN drain with 95 mL output during the night and 20 mL output this morning the other drain had 330 mL output and 10 mL output this morning fluid sanguinous in color. Patient apparently had some bleeding from the incision during the night as well this has resolved. Hemoglobin 9.2 WBC is 13 creatinine 1.2 PHYSICAL EXAM: VITAL SIGNS: Reviewed. GENERAL: Well-developed in no acute distress. HEENT: No sclera icterus. Extraocular movements grossly intact. Moist buccal mucosa. Head is atraumatic, normocephalic. ABDOMEN: Soft. Nondistended. Incisional dressing clean dry and intact. [address] Abdominal binder in place NEUROLOGIC: Alert and oriented. Cranial nerves II through XII grossly intact. ASSESSMENT: 1. Panniculus 2. Incisional hernia 3. Hypotension PLAN: -Continue IV fluids -Continue to monitor blood pressure -Continue a clear liquid diet -IV Tylenol added for pain control -Continue to monitor ADAN drain output -Continue to monitor for any urinary retention -Repeat labs in a.m. -Possible discharge tomorrow -DVT prophylaxis Lovenox and GI prophylaxis Pepcid Physician Rigging Up Man note has been reviewed by physician. Signing provider agrees with the documented findings, assessment, and plan of care. Objective - Vital Signs Vital signs: Vital Signs Temp 97.9 F 07/01/24 07:56 Pulse 92 07/01/24 07:56 Resp 18 07/01/24 07:56 BP 94/65 07/01/24 07:56 Pulse Ox 97 07/01/24 07:56 FiO2 Intake & Output 06/30/24 07/01/24 07/01/24 18:59 06:59 18:59 Intake Total 2150 Output Total 500 640 70 Balance 1650 -640 -70 Weight 101.7 kg Intake: IV 2150 Output: Drainage 640 70 Left Abdomen 205 10 Right abdomen 435 60 Urine 350 Estimated Blood Loss 150 Other: Voiding Method Toilet # Voids 4 1 1 - Labs CBC & Chem 7: 07/01/24 08:34 07/01/24 08:34 Labs: Abnormal Lab Results - Last 24 Hours (Table) 06/30/24 07/01/24 07/01/24 Range/Units 15:15 08:34 08:34 WBC 13.1 H (3.8-10.6) k/uL RBC 3.07 L (3.80-5.40) m/uL Hgb 9.2 L D (11.4-16.0) gm/dL Hct 28.5 L (34.0-46.0) % Neutrophils # 11.1 H (1.3-7.7) k/uL Sodium 133 L (137-145) mmol/L Potassium 5.2 H (3.5-5.1) mmol/L BUN 30 H (7-17) mg/dL Creatinine 1.20 H (0.52-1.04) mg/dL Glucose 108 H (74-99) mg/dL POC Glucose (mg/dL) 151 H (70-110) mg/dL Calcium 7.8 L (8.4-10.2) mg/dL
[2024-07-01] MEDS: FAMOTIDINE 20 MG/2 ML VIAL IV SCH (13:45)
[2024-07-01] MEDS: HYDROmorphone 0.5 MG/0.5 ML SYRINGE IVP PRN (22:07)
[2024-07-02 04:46] LABS: Basophils % (A) 0 %; Eosinophils # (A) 0.4 k/uL (0-0.7); Eosinophils % (A) 5 %; HCT 21.7 % (34.0-46.0); Hypochromasia Slight; Lymphocytes # (A) 2.4 k/uL (1.0-4.8); Lymphocytes % (A) 31 %; MCH 30.9 pg (25.0-35.0); MCHC 33.1 g/dL (31.0-37.0); MCV 93.4 fL (80.0-100.0); Mean Platelet Volume 7.2; Monocytes # (A) 0.3 k/uL (0-1.0); Monocytes % (A) 4 %; Neutrophils # (A) 4.6 k/uL (1.3-7.7); Neutrophils % (A) 58 %; Platelet Count 205 k/uL (150-450); RBC 2.32 m/uL (3.80-5.40); RDW 13.5 % (11.5-15.5); WBC 7.9 k/uL (3.8-10.6)
[2024-07-02 05:06] LABS: HGB 7.2 gm/dL (11.4-16.0)
[2024-07-02 05:08] LABS: African American GFR (CKD) 79 (>60 ml/min/1.73 sqM); Anion Gap 1 mmol/L; Blood Urea Nitrogen 35 mg/dL (7-17); Calcium 7.8 mg/dL (8.4-10.2); Carbon Dioxide 26 mmol/L (22-30); Chloride 104 mmol/L (98-107); Glucose 81 mg/dL (74-99); Non-African American GFR(CKD) 69 (>60 ml/min/1.73 sqM); Potassium 3.9 mmol/L (3.5-5.1); Sodium 131 mmol/L (137-145)
[2024-07-02] MEDS ORDERED: NYSTATIN 100,000 UNIT/GM POWD 15 GM TOPICAL PRN (06:17)
[2024-07-02] MEDS: LEVOTHYROXINE 50 MCG TAB PO SCH (06:51)
[2024-07-02] MEDS: NON FORMULARY DRUG (Dextroamphetamine/Amphetamine [Adderall] 20 MG Tablet) PO SCH (07:53)
[2024-07-02] MEDS: HYDROcodone/APAP 5-325MG 1 EACH TAB PO PRN (08:43)
[2024-07-02] MEDS: PREGABALIN 75 MG CAP PO SCH (08:45)
[2024-07-02] MEDS: LORATADINE 10 MG TAB PO SCH (08:45)
[2024-07-02] MEDS: ASCORBIC ACID 500 MG TAB PO SCH (08:45)
[2024-07-02] MEDS: LIDOCAINE 4% PATCH TOPICAL SCH (08:45)
--- NOTE | 2024-07-02 13:06 | P.PN ---
Subjective Progress Note Date: 07/02/24 SURGICAL PROGRESS NOTE CHIEF COMPLAINT: Panniculus HISTORY OF PRESENT ILLNESS: Patient is postop day #2 status post panniculectomy, repair of incisional hernia and excision of mesh. Patient's blood pressures have remained on the lower side this a.m. Last BP showing improvement 110/72. She did have a drop in hemoglobin to 7.2. She will receive a unit of blood. Her nausea has improved. No vomiting. Pain is controlled. Patient reports that she is urinating more. She does report her urine is still dark. Afebrile. WBC is down from 13.1-7.9 Hgb 9.2-7.2 platelets 205 sodium 131 potassium 3.9 c reatinine 1.02 ADAN drain with sanguinous output. Left ADAN drain 20 mL right ADAN drain 120 mL output PHYSICAL EXAM: VITAL SIGNS: Reviewed. GENERAL: Well-developed in no acute distress. ABDOMEN: Soft. Nondistended. Incisional dressing clean dry and intact. [address] Abdominal binder in place NEUROLOGIC: Alert and oriented. Cranial nerves II through XII grossly intact. ASSESSMENT: 1. Panniculus 2. Incisional hernia 3. Hypotension improving 4. Acute blood loss anemia PLAN: -Transfuse 1 unit of blood for hemoglobin of 7.2 -Repeat CBC in a.m. -Continue IV fluids -Continue to monitor blood pressure -Advance diet to regular -Continue to monitor ADAN drain output -DVT prophylaxis Lovenox and GI prophylaxis Pepcid Physician Employment Representative note has been reviewed by physician. Signing provider agrees with the documented findings, assessment, and plan of care. Objective - Vital Signs Vital signs: Vital Signs Temp 98.1 F 07/02/24 12:54 Pulse 97 07/02/24 12:54 Resp 18 07/02/24 12:54 BP 110/72 07/02/24 12:54 Pulse Ox 96 07/02/24 12:54 FiO2 Intake & Output 07/01/24 07/02/24 07/02/24 18:59 06:59 18:59 Intake Total 1700 0 Output Total 130 210 70 Balance -130 1490 -70 Intake: Intake, IV Titration 1700 Amount ACETAMINOPHEN IV (For NPO 200 ) 1,000 mg In Empty Bag 1 bag @ 400 mls/hr IVPB Q6H [facility] Rx#:[id number] Lactated Ringers 1,000 ml 1500 @ 125 mls/hr IV .Q8H [facility] Rx#:[id number] Blood Product 0 Unit 0 Output: Drainage 130 210 70 Left Abdomen 20 20 20 Right abdomen 110 190 50 Other: Voiding Method Toilet # Voids 1 1 - Labs CBC & Chem 7: 07/02/24 04:08 07/02/24 04:08 Labs: Abnormal Lab Results - Last 24 Hours (Table) 07/02/24 07/02/24 07/02/24 Range/Units 04:08 04:08 08:35 RBC 2.32 L (3.80-5.40) m/uL Hgb 7.2 L D (11.4-16.0) gm/dL Hct 21.7 L (34.0-46.0) % Sodium 131 L (137-145) mmol/L BUN 35 H (7-17) mg/dL Calcium 7.8 L (8.4-10.2) mg/dL Crossmatch See Detail
[2024-07-02] MEDS: KETOROLAC 15 MG/ML 1 ML VIAL IVP SCH (13:49)
[2024-07-02] MEDS: buPROPion XL 300 MG TAB.ER.24H PO SCH (21:18)
[2024-07-02] MEDS: AMITRIPTYLINE HCL 50 MG TAB PO SCH (21:18)
--- NOTE | 2024-07-03 05:02 | P.CONS ---
History of Present Illness - Reason for Consult Consult date: 07/01/24 Medical management post incisional repair with mesh removal - History of Present Illness This is a pleasant 39-year-old female who was admitted under surgical services and is status post panniculectomy along with incisional hernia repair and excision of mesh from previous hernia being closely monitored. Patient reports she follows with [facility] for Dr. Varela in the outpatient setting with a past medical history of fibromyalgia, asthma, GERD, bipolar, diabetes. Patient reports she is diet controlled diabetic after losing weight her numbers have improved. Patient did undergo presurgical clearance and has been following with surgery outpatient. Patient reports significant abdominal discomfort and tender ness and abdominal binder is noted. Blood pressures have been soft and is maintained on IV hydration. Patient being started on clear liquids per general surgery. Will resume home medications once tolerating oral intake. Review of systems: CONSTITUTIONAL: No fever, no malaise, no fatigue. HEENT: No recent visual problems or hearing problems. Denied any sore throat. CARDIOVASCULAR: No chest pain, orthopnea, PND, no palpitations, no syncope. PULMONARY: No shortness of breath, no cough, no hemoptysis. GASTROINTESTINAL: No diarrhea, reports significant nausea, reports some vomiting, continued abdominal pain. NEUROLOGICAL: Reports mild headaches, no weakness, no numbness. HEMATOLOGICAL: Denies any bleeding or petechiae. GENITOURINARY: Denies any burning micturition, frequency, or urgency. MUSCULOSKELETAL/RHEUMATOLOGICAL: Denies any joint pain, swelling, or any muscle pain. ENDOCRINE: Denies any polyuria or polydipsia. The rest of the 14-point review of systems is negative. PHYSICAL EXAMINATION: GENERAL: The patient is alert and oriented x3, not in any acute distress. Well developed, well nourished. Obese HEENT: Pupils are round and equally reacting to light. EOMI. No scleral icterus. No conjunctival pallor. Normocephalic, atraumatic. No pharyngeal erythema. No thyromegaly. CARDIOVASCULAR: S1 and S2 present. No murmurs, rubs, or gallops. PULMONARY: Diminished breath sounds bilaterally otherwise chest is clear to auscultation, no wheezing or crackles. ABDOMEN: Soft, extremely tender, nondistended, normoactive bowel sounds. No palpable organomegaly. MUSCULOSKELETAL: No joint swelling or deformity. EXTREMITIES: No cyanosis, clubbing, or pedal edema. NEUROLOGICAL: Gross neurological examination did not reveal any focal deficits. SKIN: No rashes. Assessment: Panniculus, status post panniculectomy with incisional hernia repair and excision of previous mesh History of diabetes mellitus, diet controlled History of bipolar GERD Asthma, not in exacerbation Obesity with a BMI of 35.1 GI prophylaxis DVT prophylaxis Full code Plan: Patient was admitted under surgery services status post panniculectomy along with incisional hernia repair and excision of previous mesh Encourage incentive spirometer use at least 10 times every hour while awake Continue IV hydration as patient is hypotensive and had an episode of getting up feeling lightheaded and dizzy Encourage slowly getting up into the chair with assistance and sitting up more frequently. Continue abdominal binder Follow-up on repeat labs, replace electrolytes per protocol Home medications reviewed and resumed once tolerating diet Will monitor blood sugars with Accu-Cheks before meals and at bedtime and sliding scale as needed Thank you kindly for this consultation. We will continue to follow with general surgery during hospitalization. The impression and plan of care has been dictated by Rachel Peñaloza, Nurse Practitioner as directed. Dr. Gagandeep MD I have performed a history and examination and MDM of this patient, discussed the same with the dictator, and agree with the dictator's assessment and plan as written ,documented as a scribe. Based on total visit time, I have performed more than 50% of the visit. Past Medical History Past Medical History: Asthma, Diabetes Mellitus, Fibromyalgia, GERD/Reflux, Sleep Apnea/CPAP/BIPAP, Thyroid Disorder Additional Past Medical History / Comment(s): Migraines with aura, DDD, hx. Type II DM - hgbA1c normal since bariatric surgery, diverticulitis with perforation/colostomy since reversed, IBS, hx. chronic seroma resolved, CARLITOS/no device, polycystic ovaries, hypothyroid, season allergies, tested positive for Influenza A and was treated over 2 weeks ago, recent ER visit - "put back out" History of Any Multi-Drug Resistant Organisms: None Reported Past Surgical History: Bariatric Surgery, Bowel Resection, Cholecystectomy, Hysterectomy, Uterine Ablation Additional Past Surgical History / Comment(s): 06/06/21 sleeve gastrectomy, Rt Breast biopsy. bowel resection with colostomy/ later colostomy reversal, abdominal surgery to remove scar tissue, EGD, colonoscopy, back pain procedures uterine ablation, lysis of adhesions 07/11/22, 02/04/24-laparscopic hysterectomy Past Anesthesia/Blood Transfusion Reactions: No Reported Reaction Additional Past Anesthesia/Blood Transfusion Reaction / Comm: no hx blood izquierdo sfusion, received monoclonal antibodies in Feb 2021 Past Psychological History: Anxiety, Bipolar, Depression Additional Psychological History / Comment(s): Pt has eating disorder-binge eater, borderline personality disorder. Smoking Status: Never smoker Past Alcohol Use History: Occasional Additional Past Alcohol Use History / Comment(s): 2 drinks/month Past Drug Use History: None Reported - Past Family History Mother History Unknown: Yes Family Medical History: COPD Additional Family Medical History / Comment(s): Mother from COPD at the age of 55 yrs. Maternal grandmother - esophageal cancer Brother(s) Family Medical History: Diabetes Mellitus Father Family Medical History: Unable to Obtain Medications and Allergies Home Medications Medication Instructions Recorded Confirmed Type Levothyroxine Sodium [Synthroid] 50 mcg PO DAILY 05/05/14 06/30/24 History Cetirizine HCl [Zyrtec] 10 mg PO DAILY 08/30/19 06/30/24 History Pregabalin [Lyrica] 225 mg PO BID 08/30/19 06/30/24 History Nystatin 100,000 Unit/gm Powd 1 applic TOPICAL BID PRN 12/12/21 06/30/24 History [Mycostatin Powder] Ergocalciferol (Vitamin D2) 1,250 mcg PO GARCIA 05/19/22 06/27/24 History [Drisdol (50,000 Iu)] Fluconazole 150 mg PO DAILY PRN 05/19/22 06/30/24 History Acetaminophen Tab [Tylenol] 650 mg PO Q6H PRN 10/02/22 06/30/24 History Lasmiditan Succinate [Reyvow] 50 mg PO DAILY PRN 10/02/22 06/30/24 History Metoclopramide [Reglan] 10 mg PO DAILY PRN 10/02/22 06/30/24 History Ketorolac [Toradol] 10 mg PO Q6HR PRN 10/30/22 06/27/24 History buPROPion XL [Wellbutrin XL] 300 mg PO HS 01/08/23 06/30/24 History Vit No.179/Iron/Folic 1 each PO DAILY 07/02/23 06/27/24 History [ Tablet] Biotin 5,000 mcg PO DAILY 11/19/23 06/27/24 History HYDROcodone/APAP 10-325MG [[place] 1 tab PO BID PRN 11/19/23 06/30/24 History 10-325] hydrOXYzine HCL [Atarax] 100 mg PO HS PRN 04/28/24 06/30/24 History tiZANidine [Zanaflex] 2 mg PO HS PRN 04/28/24 06/30/24 History Lidocaine 4% Patch 1 patch TOPICAL DAILY #10 patch 06/25/24 06/30/24 Rx Ascorbic Acid [Vitamin C] 500 mg PO DAILY 06/27/24 06/27/24 History Dextroamphetamine/Amphetamine 40 mg PO DAILY 06/27/24 06/30/24 History [Adderall] Amitriptyline HCl [Elavil] 100 mg PO HS 06/30/24 06/30/24 History Allergies Allergy/AdvReac Type Severity Reaction Status Date / Time cephalexin [From Keflex] Allergy Rash/Hives Verified 06/30/24 08:47 codeine AdvReac Hallucinati Verified 06/30/24 08:47 ons tramadol AdvReac Hallucinati Verified 06/30/24 08:47 ons valacyclovir HCl AdvReac BLURRED Verified 06/30/24 08:47 [From Valtrex] VISION Physical Exam Vitals: Vital Signs Temp Pulse Pulse Resp BP BP Pulse Ox 07/01/24 07:56 97.9 F 92 18 94/65 97 07/01/24 07:03 96/62 07/01/24 04:40 92/62 07/01/24 02:43 97.6 F 88/54 07/01/24 02:14 96/50 07/01/24 01:57 90/54 07/01/24 01:39 95/58 07/01/24 01:18 72/44 07/01/24 01:08 97.5 F L 80 14 69/55 73/54 95 06/30/24 19:11 97.4 F L 81 16 106/70 97 06/30/24 18:03 66 115/81 96 06/30/24 17:48 78 111/75 95 06/30/24 17:33 77 113/78 96 06/30/24 17:18 65 129/86 96 06/30/24 17:03 71 115/80 94 L 06/30/24 16:48 79 118/83 94 L 06/30/24 16:33 77 116/80 95 06/30/24 16:18 79 120/85 96 06/30/24 16:04 77 111/78 95 06/30/24 15:49 97.6 F 77 18 108/74 94 L 06/30/24 15:15 74 16 110/67 94 L 06/30/24 15:00 79 16 114/78 95 06/30/24 14:45 70 16 120/77 95 06/30/24 14:30 69 16 120/75 98 06/30/24 14:15 74 16 117/75 99 06/30/24 14:00 72 16 118/77 97 06/30/24 13:45 84 16 111/72 99 06/30/24 13:37 96.8 F L 63 16 116/74 100 06/30/24 10:14 66 17 131/85 99 Intake and Output 06/30/24 07/01/24 07/01/24 22:59 06:59 14:59 Output Total 215 425 30 Balance -215 -425 -30 Output: Drainage 215 425 30 Left Abdomen 110 95 10 Right abdomen 105 330 20 Other: Voiding Method Toilet # Voids 1 1 Weight 101.7 kg Results CBC & Chem 7: 07/02/24 04:08 07/02/24 04:08 Labs: Abnormal Lab Results - Last 24 Hours (Table) 06/30/24 Range/Units 15:15 POC Glucose (mg/dL) 151 H (70-110) mg/dL
--- NOTE | 2024-07-03 05:06 | P.PN ---
Subjective Progress Note Date: 07/02/24 - Reason for Consult Consult date: 07/01/24 Medical management post incisional repair with mesh removal - History of Present Illness This is a pleasant 39-year-old female who was admitted under surgical services and is status post panniculectomy along with incisional hernia repair and excision of mesh from previous hernia being closely monitored. Patient reports she follows with [facility] for Dr. Varela in the outpatient setting with a past medical history of fibromyalgia, asthma, GERD, bipolar, diabetes. Patient reports she is diet controlled diabetic after losing weight her numbers have improved. Patient did undergo presurgical clearance and has been following with surgery outpatient. Patient reports significant abdominal discomfort and tenderness and abdominal binder is noted. Blood pressures have been soft and is maintained on IV hydration. Patient being started on clear liquids per general surgery. Will resume home medications once tolerating oral intake. 07/02/2024 Patient is seen in follow-up this morning feels slightly better abdominal pain persists although nausea has subsided somewhat. Patient is tolerating clear liquids slowly advancing and diet has been advanced per surgery once patient can tolerate more. Patient with incentive spirometer at the bedside encouraged to continue using at least 10 times every hour while awake. Continue gentle hydration and decrease fluid slightly once tolerating more oral intake. Patient hemoglobin slightly low at 7.1 with no active bleeding noted other than continuous ADAN drain output from surgery. Patient is being transfused 1 unit of PRBC per surgery. Review of systems: Constitutional: No reports of fatigue, fever, or chills Cardiovascular: No reports of chest pain or palpitations Respiratory: No reports of shortness of breath or cough GI: No reports of nausea, vomiting, or diarrhea, reports passing gas : No reports of dysuria or retention Neurovascular: reports of generalized weakness when standing All medications have been reviewed PHYSICAL EXAMINATION: GENERAL: The patient is alert and oriented x3, lethargic although easily kirsty usable. Well developed, well nourished. Obese HEENT: Pupils are round and equally reacting to light. EOMI. No scleral icterus. No conjunctival pallor. Normocephalic, atraumatic. No pharyngeal erythema. No thyromegaly. CARDIOVASCULAR: S1 and S2 present. No murmurs, rubs, or gallops. PULMONARY: Diminished breath sounds bilaterally otherwise chest is clear to auscultation, no wheezing or crackles. ABDOMEN: Soft, slightly tender, nondistended, normoactive bowel sounds. No palpable organomegaly. Abdominal binder noted MUSCULOSKELETAL: No joint swelling or deformity. EXTREMITIES: No cyanosis, clubbing, or pedal edema. NEUROLOGICAL: Gross neurological examination did not reveal any focal deficits. SKIN: No rashes. Assessment: Panniculus, status post panniculectomy with incisional hernia repair and excision of previous mesh Acute blood loss anemia secondary to above, 7.1, giving a unit of PRBC today History of diabetes mellitus, diet controlled History of bipolar GERD Asthma, not in exacerbation Obesity with a BMI of 35.1 GI prophylaxis DVT prophylaxis Full code Plan: Patient was admitted under surgery services status post panniculectomy along with incisional hernia repair and excision of previous mesh Hemoglobin was noted to be 7.1 and given blood pressures are low, surgery ordered 1 unit of PRBC. Recommend follow-up repeat labs in the a.m. Encouraged incentive spirometer use at least 10 times every hour while awake Continue IV hydration as patient is hypotensive and had an episode of getting up feeling lightheaded and dizzy Encourage slowly getting up into the chair with assistance and sitting up more frequently. Continue abdominal binder Follow-up on repeat labs, replace electrolytes per protocol Home medications reviewed and resumed once tolerating diet Will monitor blood sugars with Accu-Cheks before meals and at bedtime and sliding scale as needed Thank you kindly for this consultation. We will continue to follow with general surgery during hospitalization. The impression and plan of care has been dictated by Rachel Peñaloza, Nurse Practitioner as directed. Dr. Gagandeep MD I have performed a history and examination and MDM of this patient, discussed the same with the dictator, and agree with the dictator's assessment and plan as written ,documented as a scribe. Based on total visit time, I have performed more than 50% of the visit. Objective - Vital Signs Vital signs: Vital Signs Temp 97.8 F 07/03/24 02:04 Pulse 84 07/03/24 02:04 Resp 14 07/03/24 02:04 BP 97/63 07/03/24 02:04 Pulse Ox 93 L 07/03/24 02:04 FiO2 Intake & Output 07/02/24 07/02/24 07/03/24 06:59 18:59 06:59 Intake Total 1700 560 Output Total 210 70 20 Balance 1490 490 -20 Intake: Intake, IV Titration 1700 Amount ACETAMINOPHEN IV (For NPO 200 ) 1,000 mg In Empty Bag 1 bag @ 400 mls/hr IVPB Q6H [facility] Rx#:[id number] Lactated Ringers 1,000 ml 1500 @ 125 mls/hr IV .Q8H [facility] Rx#:[id number] Oral 250 Blood Product 310 Rc As-1 Unit 310 [id number] Output: Drainage 210 70 20 Left Abdomen 20 20 0 Right abdomen 190 50 20 Other: Voiding Method Toilet Toilet # Voids 1 4 1 # Bowel Movements 0 - Labs CBC & Chem 7: 07/02/24 04:08 07/02/24 04:08 Labs: Abnormal Lab Results - Last 24 Hours (Table) 07/02/24 07/02/24 07/02/24 Range/Units 04:08 04:08 08:35 RBC 2.32 L (3.80-5.40) m/uL Hgb 7.2 L D (11.4-16.0) gm/dL Hct 21.7 L (34.0-46.0) % Sodium 131 L (137-145) mmol/L BUN 35 H (7-17) mg/dL Calcium 7.8 L (8.4-10.2) mg/dL Crossmatch See Detail
[2024-07-03 09:10] LABS: Basophils # (A) 0.06 X 10*3/uL (0.00-0.10); Basophils % (A) 0.8 %; Eosinophils # (A) 0.56 X 10*3/uL (0.04-0.35); Eosinophils % (A) 7.1 %; HCT 23.7 % (37.2-46.3); HGB 7.5 g/dL (12.0-15.0); Lymphocytes # (A) 2.92 X 10*3/uL (0.90-5.00); Lymphocytes % (A) 36.8 %; MCH 29.6 pg (27.0-32.0); MCHC 31.6 g/dL (32.0-37.0); MCV 93.7 FL (80.0-97.0); Mean Platelet Volume 10.2 FL (9.5-12.2); Monocytes # (A) 0.68 X 10*3/uL (0.20-1.00); Monocytes % (A) 8.6 %; NRBC Per 100 WBC 0 X 10*3/uL (0.00-0.01); Neutrophils # (A) 3.68 X 10*3/uL (1.80-7.70); Neutrophils % (A) 46.3 %; Platelet Count 219 X 10*3/uL (140-440); RBC 2.53 X 10*6/uL (4.10-5.20); RDW 14.6 % (11.5-14.5); WBC 7.93 X 10*3/uL (4.50-10.00)
[2024-07-03 09:19] LABS: BUN/Creat Ratio 27.25 Ratio (12.00-20.00); Blood Urea Nitrogen 21.8 mg/dL (9.0-27.0); Chloride 108 mmol/L (96-109); Glucose 90 mg/dL (70-110); Potassium 4.5 mmol/L (3.5-5.5); Sodium 142 mmol/L (135-145)
--- NOTE | 2024-07-03 12:26 | P.PN ---
Subjective Progress Note Date: 07/03/24 SURGICAL PROGRESS NOTE CHIEF COMPLAINT: Panniculus HISTORY OF PRESENT ILLNESS: Patient is postop day #3 status post panniculectomy, repair of incisional hernia and excision of mesh. Patient does report abdominal pain. Pain is controlled. She is having flatus. Denies any bowel movement. Tolerating regular diet. No nausea or vomiting. Afebrile. BP 107/75. She did receive 1 unit of blood hemoglobin to staying about the same from 7.2-7.5. ADAN drain on the right with 120 mL output through the night and 20 mL output through the left of sanguinous fluid. PHYSICAL EXAM: VITAL SIGNS: Reviewed. GENERAL: Well-developed in no acute distress. ABDOMEN: Soft. Nondistended. Abdominal incision clean dry and intact. No bruising or erythema noted. Minimal dried blood noted. Tube ADAN drains in [place]. NEUROLOGIC: Alert and oriented. Cranial nerves II through XII grossly intact. ASSESSMENT: 1. Panniculus 2. Incisional hernia 3. Hypotension improving 4. Acute blood loss anemia PLAN: -Discontinue IV fluids -Continue to monitor hemoglobin -Repeat CBC in a.m. -Possible discharge tomorrow -Encourage patient to increase activity level -Continue to monitor ADAN drain output -DVT prophylaxis Lovenox and GI prophylaxis Pepcid Physician Theology Professor note has been reviewed by physician. Signing provider agrees with the documented findings, assessment, and plan of care. Objective - Vital Signs Vital signs: Vital Signs Temp 98.2 F 07/03/24 07:33 Pulse 85 07/03/24 10:26 Resp 18 07/03/24 07:33 BP 107/75 07/03/24 10:26 Pulse Ox 95 07/03/24 07:33 FiO2 Intake & Output 07/02/24 07/03/24 07/03/24 18:59 06:59 18:59 Intake Total 560 Output Total 70 130 20 Balance 490 -130 -20 Intake: Oral 250 Blood Product 310 Rc As-1 Unit 310 [id number] Output: Drainage 70 130 20 Left Abdomen 20 10 Right abdomen 50 120 20 Other: Voiding Method Toilet Toilet # Voids 4 1 # Bowel Movements 0 - Labs CBC & Chem 7: 07/03/24 03:12 07/03/24 03:12 Labs: Abnormal Lab Results - Last 24 Hours (Table) 07/02/24 07/03/24 07/03/24 Range/Units 08:35 03:12 03:12 RBC 2.53 L (4.10-5.20) X 10*6/uL Hgb 7.5 L (12.0-15.0) g/dL Hct 23.7 L (37.2-46.3) % MCHC 31.6 L (32.0-37.0) g/dL RDW 14.6 H (11.5-14.5) % Eosinophils # 0.56 H (0.04-0.35) X 10*3/uL BUN/Creatinine Ratio 27.25 H (12.00-20.00) Ratio Calcium 8.0 L (8.7-10.3) mg/dL Crossmatch See Detail
--- NOTE | 2024-07-04 04:55 | P.PN ---
Subjective Progress Note Date: 07/03/24 - Reason for Consult Consult date: 07/01/24 Medical management post incisional repair with mesh removal - History of Present Illness This is a pleasant 39-year-old female who was admitted under surgical services and is status post panniculectomy along with incisional hernia repair and excision of mesh from previous hernia being closely monitored. Patient reports she follows with [facility] for Dr. Varela in the outpatient setting with a past medical history of fibromyalgia, asthma, GERD, bipolar, diabetes. Patient reports she is diet controlled diabetic after losing weight her numbers have improved. Patient did undergo presurgical clearance and has been following with surgery outpatient. Patient reports significant abdominal discomfort and tenderness and abdominal binder is noted. Blood pressures have been soft and is maintained on IV hydration. Patient being started on clear liquids per general surgery. Will resume home medications once tolerating oral intake. 07/02/2024 Patient is seen in follow-up this morning feels slightly better abdominal pain persists although nausea has subsided somewhat. Patient is tolerating clear liquids slowly advancing and diet has been advanced per surgery once patient can tolerate more. Patient with incentive spirometer at the bedside encouraged to continue using at least 10 times every hour while awake. Continue gentle hydration and decrease fluid slightly once tolerating more oral intake. Patient hemoglobin slightly low at 7.1 with no active bleeding noted other than continuous ADAN drain output from surgery. Patient is being transfused 1 unit of PRBC per surgery. 07/03/2024 Patient is seen and evaluated in follow-up today and reports was able to get up and continues with abdominal discomfort but improved from yesterday. Patient continues with ADAN drainage output and being monitored closely as the right 1 is having continued output and being emptied more frequently, no active bleeding noted as this has been ongoing since surgery. Patient did receive 1 unit of PRBC yesterday and hemoglobin slightly improved at 7.9 and will monitor closely. Blood pressures are somewhat improved although remain soft. Patient has been encouraged to continue using incentive spirometer and increase activity as tolerated. Patient's diet has been advanced and reports to tolerating. Patient is passing gas with no bowel movement as of yet. Patient is voiding with no difficulties. Review of systems: Constitutional: No reports of fatigue, fever, or chills Cardiovascular: No reports of chest pain or palpitations Respiratory: No reports of shortness of breath or cough GI: No reports of nausea, vomiting, or diarrhea, reports passing gas, no bowel movement as of yet : No reports of dysuria or retention Neurovascular: reports of generalized weakness when standing, but improving All medications have been reviewed PHYSICAL EXAMINATION: GENERAL: The patient is alert and oriented x3, lethargic although easily arousable. Well developed, well nourished. Obese HEENT: Pupils are round and equally reacting to light. EOMI. No scleral icterus. No conjunctival pallor. Normocephalic, atraumatic. No pharyngeal erythema. No thyromegaly. CARDIOVASCULAR: S1 and S2 present. No murmurs, rubs, or gallops. PULMONARY: Diminished breath sounds bilaterally otherwise chest is clear to auscultation, no wheezing or crackles. ABDOMEN: Soft, slightly tender, nondistended, normoactive bowel sounds. No palpable organomegaly. Abdominal binder noted, ADAN drains noted with serous output MUSCULOSKELETAL: No joint swelling or deformity. EXTREMITIES: No cyanosis, clubbing, or pedal edema. NEUROLOGICAL: Gross neurological examination did not reveal any focal deficits. SKIN: No rashes. Assessment: Panniculus, status post panniculectomy with incisional hernia repair and excision of previous mesh Acute blood loss anemia secondary to above, 7.1, status post 1 unit of PRBC this admission, 7.9 today History of diabetes mellitus, diet controlled History of bipolar GERD Asthma, not in exacerbation Obesity with a BMI of 35.1 GI prophylaxis DVT prophylaxis Full code Plan: Patient is status post panniculectomy along with incisional hernia repair and excision of previous mesh Hemoglobin was noted to be 7.1 and given a unit of PRBC yesterday. Patient's hemoglobin is 7.9 today recommend close monitoring and follow-up on repeat CBC. Monitor ADAN drain output closely Encouraged incentive spirometer use at least 10 times every hour while awake Continue IV hydration as patient blood pressures are soft. Patient is tolerating increased diet can decrease the rate of fluid Encourage slowly getting up into the chair with assistance and sitting up more frequently. Continue abdominal binder Follow-up on repeat labs, replace electrolytes per protocol Home medications reviewed and resumed once tolerating diet Will monitor blood sugars with Accu-Cheks before meals and at bedtime and sliding scale as needed Thank you kindly for this consultation. We will continue to follow with general surgery during hospitalization. The impression and plan of care has been dictated by Rachel Peñaloza, Nurse Practitioner as directed. Dr. Gagandeep MD I have performed a history and examination and MDM of this patient, discussed the same with the dictator, and agree with the dictator's assessment and plan as written ,documented as a scribe. Based on total visit time, I have performed more than 50% of the visit. Objective - Vital Signs Vital signs: Vital Signs Temp 98.2 F 07/03/24 07:33 Pulse 89 07/03/24 07:33 Resp 18 07/03/24 07:33 BP 91/59 07/03/24 07:33 Pulse Ox 95 07/03/24 07:33 FiO2 Intake & Output 07/02/24 07/03/24 07/03/24 18:59 06:59 18:59 Intake Total 560 Output Total 70 130 Balance 490 -130 Intake: Oral 250 Blood Product 310 Rc As-1 Unit 310 [id number] Output: Drainage 70 130 Left Abdomen 20 10 Right abdomen 50 120 Other: Voiding Method Toilet Toilet # Voids 4 1 # Bowel Movements 0 - Labs CBC & Chem 7: 07/03/24 03:12 07/03/24 03:12 Labs: Abnormal Lab Results - Last 24 Hours (Table) 07/02/24 Range/Units 08:35 Crossmatch See Detail
[2024-07-04 09:23] LABS: Basophils % (A) 0 %; Eosinophils # (A) 0.5 k/uL (0-0.7); Eosinophils % (A) 8 %; HCT 24.4 % (34.0-46.0); HGB 7.7 gm/dL (11.4-16.0); Hypochromasia Slight; Lymphocytes # (A) 1.9 k/uL (1.0-4.8); Lymphocytes % (A) 29 %; MCH 29.5 pg (25.0-35.0); MCHC 31.6 g/dL (31.0-37.0); MCV 93.3 fL (80.0-100.0); Mean Platelet Volume 7.5; Monocytes # (A) 0.4 k/uL (0-1.0); Monocytes % (A) 6 %; Neutrophils # (A) 3.7 k/uL (1.3-7.7); Neutrophils % (A) 55 %; Platelet Count 245 k/uL (150-450); RBC 2.62 m/uL (3.80-5.40); WBC 6.6 k/uL (3.8-10.6)
[2024-07-04 10:51] LABS: Basophils # (A) 0.05 X 10*3/uL (0.00-0.10); Basophils % (A) 0.7 %; Eosinophils # (A) 0.54 X 10*3/uL (0.04-0.35); Eosinophils % (A) 7.5 %; HCT 23.9 % (37.2-46.3); HGB 7.5 g/dL (12.0-15.0); Lymphocytes % (A) 38.8 %; MCH 29.5 pg (27.0-32.0); MCHC 31.4 g/dL (32.0-37.0); MCV 94.1 FL (80.0-97.0); Mean Platelet Volume 10.1 FL (9.5-12.2); Monocytes # (A) 0.57 X 10*3/uL (0.20-1.00); Monocytes % (A) 7.9 %; NRBC Per 100 WBC 0 X 10*3/uL (0.00-0.01); Neutrophils # (A) 3.24 X 10*3/uL (1.80-7.70); Neutrophils % (A) 44.8 %; Platelet Count 252 X 10*3/uL (140-440); RBC 2.54 X 10*6/uL (4.10-5.20); RDW 14.3 % (11.5-14.5); WBC 7.22 X 10*3/uL (4.50-10.00)
--- NOTE | 2024-07-04 14:14 | P.PN ---
Subjective Progress Note Date: 07/04/24 SURGICAL PROGRESS NOTE CHIEF COMPLAINT: Panniculus HISTORY OF PRESENT ILLNESS: Patient is postop day #4 status post panniculectomy, repair of incisional hernia and excision of mesh. Patient continues to have abdominal pain requiring IV Dilaudid. She reports that the pain is mostly with movement. She is having flatus no bowel movement. Denies any difficulty urinating. Hemoglobin is 7.7. ADAN drain right with 80 mL sanguinous output and on the left 10 mL sanguinous output. Afebrile. PHYSICAL EXAM: VITAL SIGNS: Reviewed. GENERAL: Well-developed in no acute distress. ABDOMEN: Soft. Nondistended. Abdominal incision clean dry and intact. No bruising or erythema noted. Minimal dried blood noted. [address] NEUROLOGIC: Alert and oriented. Cranial nerves II through XII grossly intact. ASSESSMENT: 1. Panniculitis 2. Incisional hernia 3. Hypotension improved. BP stable 4. Acute blood loss anemia PLAN: -Continue pain management -Anticipate discharge tomorrow -Encourage patient to increase activity level -Continue to monitor ADAN drain output -Repeat CBC in a.m. -DVT prophylaxis Lovenox and GI prophylaxis Pepcid Physician Bindery Leadperson note has been reviewed by physician. Signing provider agrees with the documented findings, assessment, and plan of care. Objective - Vital Signs Vital signs: Vital Signs Temp 98.7 F 07/04/24 06:52 Pulse 87 07/04/24 09:23 Resp 18 07/04/24 09:23 BP 97/64 07/04/24 06:52 Pulse Ox 96 07/04/24 06:52 FiO2 Intake & Output 07/03/24 07/04/24 07/04/24 18:59 06:59 18:59 Output Total 175 195 60 Balance -175 -195 -60 Output: Drainage 175 195 60 Left Abdomen 15 15 Right abdomen 160 180 60 Other: Voiding Method Toilet Toilet # Voids 4 5 - Labs CBC & Chem 7: 07/04/24 09:06 07/03/24 03:12 Labs: Abnormal Lab Results - Last 24 Hours (Table) 07/04/24 07/04/24 Range/Units 02: 09:06 RBC 2.54 L 2.62 L (4.10-5.20) X 10*6/uL Hgb 7.5 L 7.7 L (12.0-15.0) g/dL Hct 23.9 L 24.4 L (37.2-46.3) % MCHC 31.4 L (32.0-37.0) g/dL Eosinophils # 0.54 H (0.04-0.35) X 10*3/uL
[2024-07-05] MEDS: tiZANidine 4 MG TAB PO PRN (00:05)
[2024-07-05] MEDS: HYDROcodone/APAP 10-325MG 1 EACH TAB PO PRN (02:29)
[2024-07-05 04:10] LABS: HCT 22.7 % (34.0-46.0); HGB 7.4 gm/dL (11.4-16.0); Hypochromasia Slight; MCH 30.5 pg (25.0-35.0); MCHC 32.4 g/dL (31.0-37.0); MCV 94.3 fL (80.0-100.0); Mean Platelet Volume 7.3; Platelet Count 285 k/uL (150-450); RBC 2.41 m/uL (3.80-5.40); RDW 14.3 % (11.5-15.5); WBC 6.1 k/uL (3.8-10.6)
--- NOTE | 2024-07-05 05:07 | P.PN ---
Subjective Progress Note Date: 07/04/24 - Reason for Consult Consult date: 07/01/24 Medical management post incisional repair with mesh removal - History of Present Illness This is a pleasant 39-year-old female who was admitted under surgical services and is status post panniculectomy along with incisional hernia repair and excision of mesh from previous hernia being closely monitored. Patient reports she follows with [facility] for Dr. Varela in the outpatient setting with a past medical history of fibromyalgia, asthma, GERD, bipolar, diabetes. Patient reports she is diet controlled diabetic after losing weight her numbers have improved. Patient did undergo presurgical clearance and has been following with surgery outpatient. Patient reports significant abdominal discomfort and tenderness and abdominal binder is noted. Blood pressures have been soft and is maintained on IV hydration. Patient being started on clear liquids per general surgery. Will resume home medications once tolerating oral intake. 07/02/2024 Patient is seen in follow-up this morning feels slightly better abdominal pain persists although nausea has subsided somewhat. Patient is tolerating clear liquids slowly advancing and diet has been advanced per surgery once patient can tolerate more. Patient with incentive spirometer at the bedside encouraged to continue using at least 10 times every hour while awake. Continue gentle hydration and decrease fluid slightly once tolerating more oral intake. Patient hemoglobin slightly low at 7.1 with no active bleeding noted other than continuous ADAN drain output from surgery. Patient is being transfused 1 unit of PRBC per surgery. 07/03/2024 Patient is seen and evaluated in follow-up today and reports was able to get up and continues with abdominal discomfort but improved from yesterday. Patient continues with ADAN drainage output and being monitored closely as the right 1 is having continued output and being emptied more frequently, no active bleeding noted as this has been ongoing since surgery. Patient did receive 1 unit of PRBC yesterday and hemoglobin slightly improved at 7.9 and will monitor closely. Blood pressures are somewhat improved although remain soft. Patient has been encouraged to continue using incentive spirometer and increase activity as tolerated. Patient's diet has been advanced and reports to tolerating. Patient is passing gas with no bowel movement as of yet. Patient is voiding with no difficulties. 07/04/2024 Patient is seen in follow-up today continues with intense abdominal pain al though reports this slightly improved since yesterday. Pain medications adjusted although patient continues to request IV Dilaudid and discussed with the patient about attempting to avoid IV narcotics if possible. Patient does chronically take [employer] at home and has been resumed and patient reports this does not touch the pain. Patient also has other as needed medications available. Patient is using incentive spirometer and on room air encouraged to continue using at least 10 times every hour while awake. Patient has been up and walking and encouraged her to increase activity and sit up more frequently. Patient continues to have significant serous output noted in the JPs especially on the right and hemoglobin is currently 7.7. Will follow-up on repeat labs. That Review of systems: Constitutional: No reports of fatigue, fever, or chills Cardiovascular: No reports of chest pain or palpitations Respiratory: No reports of shortness of breath or cough GI: No reports of nausea, vomiting, or diarrhea, reports passing gas, no bowel movement as of yet : No reports of dysuria or retention Neurovascular: reports of generalized weakness when standing, but improving All medications have been reviewed PHYSICAL EXAMINATION: GENERAL: The patient is alert and oriented x3, sitting at the side of the bed. Well developed, well nourished. Obese HEENT: Pupils are round and equally reacting to light. EOMI. No scleral icterus. No conjunctival pallor. Normocephalic, atraumatic. No pharyngeal erythema. No thyromegaly. CARDIOVASCULAR: S1 and S2 present. No murmurs, rubs, or gallops. PULMONARY: Diminished breath sounds bilaterally otherwise chest is clear to auscultation, no wheezing or crackles. ABDOMEN: Soft, slightly tender, nondistended, normoactive bowel sounds. No palpa ble organomegaly. Abdominal binder noted, ADAN drains noted with serous output MUSCULOSKELETAL: No joint swelling or deformity. EXTREMITIES: No cyanosis, clubbing, or pedal edema. NEUROLOGICAL: Gross neurological examination did not reveal any focal deficits. Diffusely weak SKIN: No rashes. Assessment: Panniculus, status post panniculectomy with incisional hernia repair and excision of previous mesh Acute blood loss anemia secondary to above, 7.1, status post 1 unit of PRBC this admission, 7.7 today History of diabetes mellitus, diet controlled History of bipolar GERD Asthma, not in exacerbation Obesity with a BMI of 35.1 GI prophylaxis DVT prophylaxis Full code Plan: Patient is status post panniculectomy along with incisional hernia repair and excision of previous mesh Hemoglobin was noted to be 7.1 and given a unit of PRBC yesterday. Patient's hemoglobin is 7.7 today recommend close monitoring and follow-up on repeat CBC. Monitor ADAN drain output closely Encouraged incentive spirometer use at least 10 times every hour while awake Continue IV hydration as patient blood pressures are soft. Patient is tolerating increased diet can decrease the rate of fluid Encourage slowly getting up into the chair with assistance and sitting up more frequently. Continue abdominal binder Follow-up on repeat labs, replace electrolytes per protocol Home medications reviewed and resumed once tolerating diet Will monitor blood sugars with Accu-Cheks before meals and at bedtime and slidin g scale as needed Thank you kindly for this consultation. We will continue to follow with general surgery during hospitalization. The impression and plan of care has been dictated by Rachel Peñaloza, Nurse Practitioner as directed. Dr. Gagandeep MD I have performed a history and examination and MDM of this patient, discussed the same with the dictator, and agree with the dictator's assessment and plan as written ,documented as a scribe. Based on total visit time, I have performed more than 50% of the visit. Objective - Vital Signs Vital signs: Vital Signs Temp 98.3 F 07/04/24 20:00 Pulse 81 07/05/24 02:00 Resp 16 07/05/24 02:00 BP 106/71 07/05/24 02:00 Pulse Ox 95 07/05/24 02:00 FiO2 Intake & Output 07/04/24 07/04/24 07/05/24 06:59 18:59 06:59 Intake Total 240 Output Total 195 235 Balance -195 -235 240 Intake: Oral 240 Output: Drainage 195 235 Left Abdomen 15 25 Right abdomen 180 210 Other: Voiding Method Toilet Toilet Toilet # Voids 5 2 - Labs CBC & Chem 7: 07/05/24 02:59 07/03/24 03:12 Labs: Abnormal Lab Results - Last 24 Hours (Table) 07/04/24 07/04/24 07/05/24 Range/Units 02:25 09:06 02:59 RBC 2.54 L 2.62 L 2.41 L (4.10-5.20) X 10*6/uL Hgb 7.5 L 7.7 L 7.4 L (12.0-15.0) g/dL Hct 23.9 L 24.4 L 22.7 L (37.2-46.3) % MCHC 31.4 L (32.0-37.0) g/dL Eosinophils # 0.54 H (0.04-0.35) X 10*3/uL
--- NOTE | 2024-07-05 10:01 | P.PN ---
Subjective Progress Note Date: 07/05/24 Principal diagnosis: Status post panniculectomy Patient still complaining of pain. Says it is minimally better than yesterday. Feels like a sharp stabbing discomfort in the mid abdomen. Does not feel more tight or swollen than previously. Objective - Vital Signs Vital signs: Vital Signs Temp 98.2 F 07/05/24 06:55 Pulse 85 07/05/24 06:55 Resp 16 07/05/24 06:55 BP 109/71 07/05/24 06:55 Pulse Ox 95 07/05/24 06:55 FiO2 Intake & Output 07/04/24 07/05/24 07/05/24 18:59 06:59 18:59 Intake Total 240 Output Total 235 90 Balance -235 240 -90 Intake: Oral 240 Output: Drainage 235 90 Left Abdomen 25 10 Right abdomen 210 80 Other: Voiding Method Toilet Toilet # Voids 2 - Exam Abdomen: Soft, nondistended, minimal ecchymosis, drains serosanguineous, incision clean and dry, no erythema - Labs CBC & Chem 7: 07/05/24 02:59 07/03/24 03:12 Labs: Abnormal Lab Results - Last 24 Hours (Table) 07/04/24 07/05/24 Range/Units 02:25 02:59 RBC 2.54 L 2.41 L (4.10-5.20) X 10*6/uL Hgb 7.5 L 7.4 L (12.0-15.0) g/dL Hct 23.9 L 22.7 L (37.2-46.3) % MCHC 31.4 L (32.0-37.0) g/dL Eosinophils # 0.54 H (0.04-0.35) X 10*3/uL Assessment and Plan (1) Panniculitis Narrative/Plan: 39-year-old female status post panniculectomy earlier this week. Still having significant discomfort. Continue analgesics. Increase activity. Repeat labs tomorrow. Current Visit: Yes Status: Acute Code(s): M79.3 - PANNICULITIS, UNSPECIFIED SNOMED Code(s): 81076861
[2024-07-05 10:12] LABS: Blood Urea Nitrogen 20.4 mg/dL (9.0-27.0); Calcium 8.2 mg/dL (8.7-10.3); Carbon Dioxide 27.6 mmol/L (21.6-31.8); Chloride 106 mmol/L (96-109); Glucose 97 mg/dL (70-110); Potassium 4.4 mmol/L (3.5-5.5); Sodium 139 mmol/L (135-145)
--- NOTE | 2024-07-05 19:33 | P.PN ---
Subjective Progress Note Date: 07/05/24 This is a pleasant 39-year-old female who was admitted under surgical services and is status post panniculectomy along with incisional hernia repair and excision of mesh from previous hernia being closely monitored. Patient reports she follows with [facility] for Dr. Varela in the outpatient setting with a past medical history of fibromyalgia, asthma, GERD, bipolar, diabetes. Patient reports she is diet controlled diabetic after losing weight her numbers have improved. Patient did undergo presurgical clearance and has been following with surgery outpatient. Patient reports significant abdominal discomfort and tenderness and abdominal binder is noted. Blood pressures have been soft and is maintained on IV hydration. Patient being started on clear liquids per general surgery. Will resume home medications once tolerating oral intake. 07/02/2024 Patient is seen in follow-up this morning feels slightly better abdominal pain persists although nausea has subsided somewhat. Patient is tolerating clear liquids slowly advancing and diet has been advanced per surgery once patient can tolerate more. Patient with incentive spirometer at the bedside encouraged to continue using at least 10 times every hour while awake. Continue gentle hydration and decrease fluid slightly once tolerating more oral intake. Patient hemoglobin slightly low at 7.1 with no active bleeding noted other than continuous ADAN drain output from surgery. Patient is being transfused 1 unit of PRBC per surgery. 07/03/2024 Patient is seen and evaluated in follow-up today and reports was able to get up and continues with abdominal discomfort but improved from yesterday. Patient continues with ADAN drainage output and being monitored closely as the right 1 is having continued output and being emptied more frequently, no active bleeding noted as this has been ongoing since surgery. Patient did receive 1 unit of PRBC yesterday and hemoglobin slightly improved at 7.9 and will monitor closely. Blood pressures are somewhat improved although remain soft. Patient has been encouraged to continue using incentive spirometer and increase activity as tolerated. Patient's diet has been advanced and reports to tolerating. Patient is passing gas with no bowel movement as of yet. Patient is voiding with no d ifficulties. 07/04/2024 Patient is seen in follow-up today continues with intense abdominal pain alt yadira reports this slightly improved since yesterday. Pain medications adjusted although patient continues to request IV Dilaudid and discussed with the patient about attempting to avoid IV narcotics if possible. Patient does chronically take [place] at home and has been resumed and patient reports this does not touch the pain. Patient also has other as needed medications available. Patient is using incentive spirometer and on room air encouraged to continue using at least 10 times every hour while awake. Patient has been up and walking and encouraged her to increase activity and sit up more frequently. Patient continues to have significant serous output noted in the JPs especially on the right and hemoglobin is currently 7.7. Will follow-up on repeat labs. That 07/05/2024 Patient is evaluated in follow up on the medical floor. Sitting up at the edge of the bed. Reports feeling "off" today. Having increased abdominal discomfort specifically in the LUQ. States IV dilaudid is the only medication currently helping. Vitals are stable and blood pressure 126/79. White blood cell count 6.1, hgb 7.4, sodium 139, potassium 4.4. BUN 20.4, creatinine 0.8. Review of systems: Constitutional: No reports of fatigue, fever, or chills Cardiovascular: No reports of chest pain or palpitations Respiratory: No reports of shortness of breath or cough GI: No reports of nausea, vomiting, or diarrhea, reports passing gas, no bowel movement as of yet : No reports of dysuria or retention Neurovascular: reports of generalized weakness when standing, but improving All medications have been reviewed PHYSICAL EXAMINATION: GENERAL: The patient is alert and oriented x3, sitting at the side of the bed. Well developed, well nourished. Obese HEENT: Pupils are round and equally reacting to light. EOMI. No scleral icterus. No conjunctival pallor. Normocephalic, atraumatic. No pharyngeal erythema. No thyromegaly. CARDIOVASCULAR: S1 and S2 present. No murmurs, rubs, or gallops. PULMONARY: Diminished breath sounds bilaterally otherwise chest is clear to auscultation, no wheezing or crackles. ABDOMEN: Soft, slightly tender, nondistended, normoactive bowel sounds. No palpable organomegaly. Abdominal binder noted, ADAN drains noted with serous output MUSCULOSKELETAL: No joint swelling or deformity. EXTREMITIES: No cyanosis, clubbing, or pedal edema. NEUROLOGICAL: Gross neurological examination did not reveal any focal deficits. Diffusely weak SKIN: No rashes. Assessment: Panniculus, status post panniculectomy with incisional hernia repair and excision of previous mesh Acute blood loss anemia secondary to above, 7.1, status post 1 unit of PRBC this admission, 7.4 today History of diabetes mellitus, diet controlled History of bipolar GERD Asthma, not in exacerbation Obesity with a BMI of 35.1 GI prophylaxis DVT prophylaxis Full code Plan: Patient is status post panniculectomy along with incisional hernia repair and excision of previous mesh Hemoglobin was noted to be 7.1 and given a unit of PRBC Patient's hemoglobin is 7.4 today recommend close monitoring and follow-up on repeat CBC. Monitor ADAN drain output closely. Check iron studies. Encouraged incentive spirometer use at least 10 times every hour while awake Continue IV hydration as patient blood pressures are soft. Patient is tolerating increased diet can decrease the rate of fluid Encourage slowly getting up into the chair with assistance and sitting up more frequently. Continue abdominal binder Follow-up on repeat labs, replace electrolytes per protocol Home medications reviewed and resumed once tolerating diet Will monitor blood sugars with Accu-Cheks before meals and at bedtime and sli ding scale as needed Thank you kindly for this consultation. We will continue to follow with general surgery during hospitalization. The impression and plan of care has been dictated by Anya Ibarra Nurse Practitioner as directed. Dr. Gagandeep MD I have performed a history and examination and MDM of this patient, discussed the same with the dictator, and agree with the dictator's assessment and plan as written ,documented as a scribe. Based on total visit time, I have performed more than 50% of the visit. Objective - Vital Signs Vital signs: Vital Signs Temp 98.3 F 07/05/24 13:20 Pulse 86 07/05/24 13:20 Resp 16 07/05/24 13:20 BP 107/71 07/05/24 13:20 Pulse Ox 97 07/05/24 13:20 FiO2 Intake & Output 07/05/24 07/05/24 07/06/24 06:59 18:59 06:59 Intake Total 240 Output Total 270 Balance 240 -270 Intake: Oral 240 Output: Drainage 270 Left Abdomen 30 Right abdomen 240 Other: Voiding Method Toilet # Voids 4 - Labs CBC & Chem 7: 07/05/24 02:59 07/05/24 02:59 Labs: Abnormal Lab Results - Last 24 Hours (Table) 02/22/25 02/22/25 Range/Units 02:59 02:59 RBC 2.41 L (3.80-5.40) m/uL Hgb 7.4 L (11.4-16.0) gm/dL Hct 22.7 L (34.0-46.0) % BUN/Creatinine Ratio 25.50 H (12.00-20.00) Ratio Calcium 8.2 L (8.7-10.3) mg/dL Assessment and Plan Time with Patient: Less than 30
[2024-07-06] MEDS: ERGOCALCIFEROL 1,250 MCG (50,000 IU) CAPSULE PO SCH (08:50)
[2024-07-06 09:29] LABS: Basophils # (A) 0.05 X 10*3/uL (0.00-0.10); Basophils % (A) 0.7 %; Eosinophils # (A) 0.61 X 10*3/uL (0.04-0.35); Eosinophils % (A) 8.2 %; HCT 27.5 % (37.2-46.3); HGB 8.4 g/dL (12.0-15.0); Lymphocytes # (A) 2.48 X 10*3/uL (0.90-5.00); Lymphocytes % (A) 33.4 %; MCH 29.4 pg (27.0-32.0); MCHC 30.5 g/dL (32.0-37.0); MCV 96.2 FL (80.0-97.0); Mean Platelet Volume 9.9 FL (9.5-12.2); Monocytes # (A) 0.51 X 10*3/uL (0.20-1.00); Monocytes % (A) 6.9 %; NRBC Per 100 WBC 0 X 10*3/uL (0.00-0.01); Neutrophils # (A) 3.73 X 10*3/uL (1.80-7.70); Neutrophils % (A) 50.1 %; Platelet Count 359 X 10*3/uL (140-440); RBC 2.86 X 10*6/uL (4.10-5.20); RDW 14.9 % (11.5-14.5); WBC 7.43 X 10*3/uL (4.50-10.00)
--- NOTE | 2024-07-06 09:42 | P.PN ---
Subjective Progress Note Date: 07/06/24 Principal diagnosis: Status post panniculectomy Patient says her pain is slightly improved today. Today's hemoglobin 8.4. Both ADAN drain still serosanguineous right side greater than left. She did ambulate once today. Tolerating diet. Objective - Vital Signs Vital signs: Vital Signs Temp 98.4 F 07/06/24 06:54 Pulse 87 07/06/24 06:54 Resp 18 07/06/24 06:54 BP 106/71 07/06/24 06:54 Pulse Ox 98 07/06/24 06:54 FiO2 Intake & Output 07/05/24 07/06/24 07/06/24 18:59 06:59 18:59 Output Total 270 165 Balance -270 -165 Output: Drainage 270 165 Left Abdomen 30 35 Right abdomen 240 130 Other: Voiding Method Toilet # Voids 4 2 - Exam Abdomen: Soft, mild tenderness, incision clean and dry, mild ecchymosis - Labs CBC & Chem 7: 07/06/24 04:12 07/05/24 02:59 Labs: Abnormal Lab Results - Last 24 Hours (Table) 07/05/24 07/06/24 Range/Units 02:59 04:12 RBC 2.86 L (4.10-5.20) X 10*6/uL Hgb 8.4 L (12.0-15.0) g/dL Hct 27.5 L (37.2-46.3) % MCHC 30.5 L (32.0-37.0) g/dL RDW 14.9 H (11.5-14.5) % Immature Gran # 0.05 H (0.00-0.04) X 10*3/uL Eosinophils # 0.61 H (0.04-0.35) X 10*3/uL BUN/Creatinine Ratio 25.50 H (12.00-20.00) Ratio Calcium 8.2 L (8.7-10.3) mg/dL Assessment and Plan (1) Panniculitis Narrative/Plan: 39-year-old female post panniculectomy. Still having somewhat significant postoperative discomfort limiting discharge plans. Hemoglobin improved. Continue increasing ambulation today. Hopefully able to discharge tomorrow. Current Visit: Yes Status: Acute Code(s): M79.3 - PANNICULITIS, UNSPECIFIED SNOMED Code(s): 62430359
[2024-07-06 11:53] LABS: % Iron Saturation 8.15 (12.00-45.00); BUN/Creat Ratio 22.11 Ratio (12.00-20.00); Blood Urea Nitrogen 19.9 mg/dL (9.0-27.0); Calcium 8.8 mg/dL (8.7-10.3); Chloride 104 mmol/L (96-109); Ferritin 30.9 ng/mL (10.0-291.0); Glucose 114 mg/dL (70-110); Iron 30 UG/DL (50-170); Potassium 4.8 mmol/L (3.5-5.5); Sodium 138 mmol/L (135-145); Total Iron Binding Capacity 368 UG/DL (228-460)
[2024-07-06] MEDS: LACTULOSE 20 GM/30 ML CUP PO ONE (15:29)
[2024-07-06] MEDS ORDERED: LACTULOSE 20 GM/30 ML CUP PO PRN (19:21)
--- NOTE | 2024-07-06 19:27 | P.PN ---
Subjective Progress Note Date: 07/06/24 This is a pleasant 39-year-old female who was admitted under surgical services and is status post panniculectomy along with incisional hernia repair and excision of mesh from previous hernia being closely monitored. Patient reports she follows with [facility] for Dr. Varela in the outpatient setting with a past medical history of fibromyalgia, asthma, GERD, bipolar, diabetes. Patient reports she is diet controlled diabetic after losing weight her numbers have improved. Patient did undergo presurgical clearance and has been following with surgery outpatient. Patient reports significant abdominal discomfort and tenderness and abdominal binder is noted. Blood pressures have been soft and is maintained on IV hydration. Patient being started on clear liquids per general surgery. Will resume home medications once tolerating oral intake. 07/02/2024 Patient is seen in follow-up this morning feels slightly better abdominal pain persists although nausea has subsided somewhat. Patient is tolerating clear liquids slowly advancing and diet has been advanced per surgery once patient can tolerate more. Patient with incentive spirometer at the bedside encouraged to continue using at least 10 times every hour while awake. Continue gentle hydration and decrease fluid slightly once tolerating more oral intake. Patient hemoglobin slightly low at 7.1 with no active bleeding noted other than continuous ADAN drain output from surgery. Patient is being transfused 1 unit of PRBC per surgery. 07/03/2024 Patient is seen and evaluated in follow-up today and reports was able to get up and continues with abdominal discomfort but improved from yesterday. Patient continues with ADAN drainage output and being monitored closely as the right 1 is having continued output and being emptied more frequently, no active bleeding noted as this has been ongoing since surgery. Patient did receive 1 unit of PRBC yesterday and hemoglobin slightly improved at 7.9 and will monitor closely. Blood pressures are somewhat improved although remain soft. Patient has been encouraged to continue using incentive spirometer and increase activity as tolerated. Patient's diet has been advanced and reports to tolerating. Patient is passing gas with no bowel movement as of yet. Patient is voiding with no d ifficulties. 07/04/2024 Patient is seen in follow-up today continues with intense abdominal pain alt yadira reports this slightly improved since yesterday. Pain medications adjusted although patient continues to request IV Dilaudid and discussed with the patient about attempting to avoid IV narcotics if possible. Patient does chronically take [place]'s at home and has been resumed and patient reports this does not touch the pain. Patient also has other as needed medications available. Patient is using incentive spirometer and on room air encouraged to continue using at least 10 times every hour while awake. Patient has been up and walking and encouraged her to increase activity and sit up more frequently. Patient continues to have significant serous output noted in the JPs especially on the right and hemoglobin is currently 7.7. Will follow-up on repeat labs. That 07/05/2024 Patient is evaluated in follow up on the medical floor. Sitting up at the edge of the bed. Reports feeling "off" today. Having increased abdominal discomfort specifically in the LUQ. States IV dilaudid is the only medication currently helping. Vitals are stable and blood pressure 126/79. White blood cell count 6.1, hgb 7.4, sodium 139, potassium 4.4. BUN 20.4, creatinine 0.8. 07/06/2024 Patient evaluated today in follow up on the medical floor. Patient evaluated up ambulating in the hallway. Continues to report significant abdominal pain requiring IV ativan although reports was able to ambulate for slightly longer than the day prior. Hemoglobin up to 8.4. Iron is low at 30, %saturation low at 8.15 and ferritin level is low normal at 30.9. right abdomen with 270 mls blood drainage in the last 24 hours. Review of systems: Constitutional: No reports of fatigue, fever, or chills Cardiovascular: No reports of chest pain or palpitations Respiratory: No reports of shortness of breath or cough GI: No reports of nausea, vomiting, or diarrhea, reports passing gas, no bowel movement as of yet : No reports of dysuria or retention Neurovascular: reports of generalized weakness when standing, but improving All medications have been reviewed PHYSICAL EXAMINATION: GENERAL: The patient is alert and oriented x3, sitting at the side of the bed. Well developed, well nourished. Obese HEENT: Pupils are round and equally reacting to light. EOMI. No scleral icterus. No conjunctival pallor. Normocephalic, atraumatic. No pharyngeal erythema. No thyromegaly. CARDIOVASCULAR: S1 and S2 present. No murmurs, rubs, or gallops. PULMONARY: Diminished breath sounds bilaterally otherwise chest is clear to auscultation, no wheezing or crackles. ABDOMEN: Soft, slightly tender, nondistended, normoactive bowel sounds. No palpable organomegaly. Abdominal binder noted, ADAN drains noted with serous ou tput MUSCULOSKELETAL: No joint swelling or deformity. EXTREMITIES: No cyanosis, clubbing, or pedal edema. NEUROLOGICAL: Gross neurological examination did not reveal any focal deficits. Diffusely weak SKIN: No rashes. Assessment: Panniculus, status post panniculectomy with incisional hernia repair and excision of previous mesh Acute blood loss anemia secondary to above, 7.1, status post 1 unit of PRBC this admission, 8.4 today Mild underlying iron deficiency Constipation History of diabetes mellitus, diet controlled History of bipolar GERD Asthma, not in exacerbation Obesity with a BMI of 35.1 GI prophylaxis DVT prophylaxis Full code Plan: Patient is status post panniculectomy along with incisional hernia repair and excision of previous mesh Hemoglobin was noted to be 7.1 and given a unit of PRBC Patient's hemoglobin is 8.4 today recommend close monitoring and follow-up on repeat CBC. Monitor ADAN drain output closely. IV ferrlecit x 1 dose Encouraged incentive spirometer use at least 10 times every hour while awake Continue IV hydration as patient blood pressures are soft. Patient is tolerating increased diet can decrease the rate of fluid Encourage slowly getting up into the chair with assistance and sitting up more frequently. Continue abdominal binder Follow-up on repeat labs, replace electrolytes per protocol Home medications reviewed and resumed once tolerating diet Will monitor blood sugars with Accu-Cheks before meals and at bedtime and sliding scale as needed Thank you kindly for this consultation. We will continue to follow with general surgery during hospitalization. The impression and plan of care has been dictated by Anya Ibarra, Nurse Practitioner as directed. Dr. Gagandeep MD I have performed a history and examination and MDM of this patient, discussed the same with the dictator, and agree with the dictator's assessment and plan as written ,documented as a scribe. Based on total visit time, I have performed more than 50% of the visit. Objective - Vital Signs Vital signs: Vital Signs Temp 98.6 F 07/06/24 13:34 Pulse 97 07/06/24 13:34 Resp 17 07/06/24 13:34 BP 106/73 07/06/24 13:34 Pulse Ox 97 07/06/24 13:34 FiO2 Intake & Output 07/06/24 07/06/24 07/07/24 06:59 18:59 06:59 Output Total 165 180 Balance -165 -180 Output: Drainage 165 180 Left Abdomen 35 40 Right abdomen 130 140 Other: Voiding Method Toilet Toilet # Voids 2 4 - Labs CBC & Chem 7: 07/06/24 04:12 07/06/24 04:12 Labs: Abnormal Lab Results - Last 24 Hours (Table) 07/06/24 07/06/24 Range/Units 04:12 04:12 RBC 2.86 L (4.10-5.20) X 10*6/uL Hgb 8.4 L (12.0-15.0) g/dL Hct 27.5 L (37.2-46.3) % MCHC 30.5 L (32.0-37.0) g/dL RDW 14.9 H (11.5-14.5) % Immature Gran # 0.05 H (0.00-0.04) X 10*3/uL Eosinophils # 0.61 H (0.04-0.35) X 10*3/uL BUN/Creatinine Ratio 22.11 H (12.00-20.00) Ratio Glucose 114 H (70-110) mg/dL Iron 30 L (50-170) UG/DL % Saturation 8.15 L (12.00-45.00) Assessment and Plan Time with Patient: Less than 30
[2024-07-06] MEDS: SODIUM FERRIC GLUCONAT-SUCROSE 125 MG in SODIUM CHLORIDE 0.9% 100 ML IVPB ONE (21:33)
[2024-07-07 08:13] VITALS: BP 102/66; PULSE 96; RESP 16; TEMP 98.3
[2024-07-07 08:37] LABS: Basophils # (A) 0.04 X 10*3/uL (0.00-0.10); Basophils % (A) 0.7 %; Eosinophils # (A) 0.68 X 10*3/uL (0.04-0.35); Eosinophils % (A) 11.3 %; HCT 26.4 % (37.2-46.3); HGB 8.1 g/dL (12.0-15.0); Lymphocytes # (A) 1.84 X 10*3/uL (0.90-5.00); Lymphocytes % (A) 30.5 %; MCH 29.5 pg (27.0-32.0); MCHC 30.7 g/dL (32.0-37.0); Mean Platelet Volume 9.9 FL (9.5-12.2); Monocytes # (A) 0.53 X 10*3/uL (0.20-1.00); Monocytes % (A) 8.8 %; NRBC Per 100 WBC 0 X 10*3/uL (0.00-0.01); Neutrophils # (A) 2.89 X 10*3/uL (1.80-7.70); Neutrophils % (A) 47.7 %; Platelet Count 373 X 10*3/uL (140-440); RBC 2.75 X 10*6/uL (4.10-5.20); RDW 14.7 % (11.5-14.5); WBC 6.04 X 10*3/uL (4.50-10.00)
--- NOTE | 2024-07-07 14:06 | P.PN ---
Subjective Progress Note Date: 07/07/24 SURGICAL PROGRESS NOTE CHIEF COMPLAINT: Panniculus HISTORY OF PRESENT ILLNESS: Patient is postop day #7 status post panniculectomy, repair of incisional hernia and excision of mesh. Patient continues to need IV pain medication. She reports pain with movement. She denies any nausea or vomiting. She did have a bowel movement after the lactulose. Afebrile. Vital stable. WBC 6.04 Hgb 8.1. ADAN drain on the right 90 mL sanguinous output and left 30 mL sanguinous output. PHYSICAL EXAM: VITAL SIGNS: Reviewed. GENERAL: Well-developed in no acute distress. ABDOMEN: Soft. Nondistended. Abdominal incision clean dry and intact. No bruising or erythema noted. Minimal dried blood noted. [address] NEUROLOGIC: Alert and oriented. Cranial nerves II through XII grossly intact. ASSESSMENT: 1. Panniculitis 2. Incisional hernia 3. Hypotension improved. BP stable 4. Acute blood loss anemia status post blood transfusion PLAN: -Continue pain management -Encourage patient to increase activity level -Continue to monitor ADAN drain output -Anticipate discharge possibly later today or tomorrow -DVT prophylaxis Lovenox and GI prophylaxis Pepcid Physician Pan Tank Worker note has been reviewed by physician. Signing provider agrees with the documented findings, assessment, and plan of care. Objective - Vital Signs Vital signs: Vital Signs Temp 98.3 F 07/07/24 07:20 Pulse 96 07/07/24 07:20 Resp 16 07/07/24 07:20 BP 102/66 07/07/24 07:20 Pulse Ox 94 L 07/07/24 07:20 FiO2 Intake & Output 07/06/24 07/07/24 07/07/24 18:59 06:59 18:59 Output Total 180 120 Balance -180 -120 Output: Drainage 180 120 Left Abdomen 40 30 Right abdomen 140 90 Other: Voiding Method Toilet Toilet # Voids 4 5 # Bowel Movements 2 - Labs CBC & Chem 7: 07/07/24 05:24 07/06/24 04:12 Labs: Abnormal Lab Results - Last 24 Hours (Table) 07/07/24 Range/Units 05:24 RBC 2.75 L (4.10-5.20) X 10*6/uL Hgb 8.1 L (12.0-15.0) g/dL Hct 26.4 L (37.2-46.3) % MCHC 30.7 L (32.0-37.0) g/dL RDW 14.7 H (11.5-14.5) % Immature Gran # 0.06 H (0.00-0.04) X 10*3/uL Eosinophils # 0.68 H (0.04-0.35) X 10*3/uL
--- NOTE | 2024-07-07 14:37 | P.DS ---
Providers Date of admission: 06/30/24 12:08 Expected date of discharge: 07/07/24 Attending physician: Baryan Meadows Consults: 06/30/24 14:11 Consult Physician Routine Consulting Provider: Oswaldo Sarkar Consult Reason/Comments: Medical management Do you want consulting provider notified?: Yes Primary care physician: Alfred Watson [facility] Hospital Course: Discharge diagnosis 1. Panniculitis 2. Incisional hernia 3. Hypotension improved. BP stable 4. Acute blood loss anemia status post blood transfusion Hospital course This is a 39-year-old female with a known history of panniculitis and incisional hernia. She is status post panniculectomy, repair of incisional hernia and excision of mesh. Patient did require blood transfusion during her admission due to acute blood loss anemia. She was also hypotensive after surgery. This did improve with IV fluids and blood transfusion. Patient's pain is controlled. She is tolerating diet. Her hemoglobin is stable. Vitals are stable. She is afebrile. She has been up and ambulating. She is having bowel movements. Denies any difficulty urinating. She is stable for discharge. Please refer to chart for any further details. Physician Adult Education Instructor note has been reviewed by physician. Signing provider agrees with the documented findings, assessment, and plan of care. Patient Condition at Discharge: Stable Plan - Discharge Summary Discharge Rx Participant: No New Discharge Prescriptions: New Ibuprofen [Motrin] 600 mg PO Q8HR PRN #30 tab PRN Reason: Pain Continue Levothyroxine Sodium [Synthroid] 50 mcg PO DAILY Cetirizine HCl [Zyrtec] 10 mg PO DAILY Pregabalin [Lyrica] 225 mg PO BID Ergocalciferol (Vitamin D2) [Drisdol (50,000 Iu)] 1,250 mcg PO GARCIA Lasmiditan Succinate [Reyvow] 50 mg PO DAILY PRN PRN Reason: Migraine Headache Ketorolac [Toradol] 10 mg PO Q6HR PRN PRN Reason: migraines Vit No.179/Iron/Folic [ Tablet] 1 each PO DAILY HYDROcodone/APAP 10-325MG [[place] 10-325] 1 tab PO BID PRN PRN Reason: Pain tiZANidine [Zanaflex] 2 mg PO HS PRN PRN Reason: Muscle Spasm hydrOXYzine HCL [Atarax] 100 mg PO HS PRN PRN Reason: Insomnia Ascorbic Acid [Vitamin C] 500 mg PO DAILY Nystatin 100,000 Unit/gm Powd [Mycostatin Powder] 1 applic TOPICAL BID PRN PRN Reason: Rash Fluconazole 150 mg PO DAILY PRN PRN Reason: yeast Metoclopramide [Reglan] 10 mg PO DAILY PRN PRN Reason: Nausea Acetaminophen Tab [Tylenol] 650 mg PO Q6H PRN PRN Reason: Pain Or Fever > 100.5 buPROPion XL [Wellbutrin XL] 300 mg PO HS Biotin 5,000 mcg PO DAILY Lidocaine 4% Patch 1 patch TOPICAL DAILY #10 patch Dextroamphetamine/Amphetamine [Adderall] 40 mg PO DAILY Amitriptyline HCl [Elavil] 100 mg PO HS Discharge Medication List Levothyroxine Sodium [Synthroid] 50 mcg PO DAILY 05/05/14 [History] Cetirizine HCl [Zyrtec] 10 mg PO DAILY 08/30/19 [History] Pregabalin [Lyrica] 225 mg PO BID 08/30/19 [History] Nystatin 100,000 Unit/gm Powd [Mycostatin Powder] 1 applic TOPICAL BID PRN 12/12/21 [History] Ergocalciferol (Vitamin D2) [Drisdol (50,000 Iu)] 1,250 mcg PO GARCIA 05/19/22 [History] Fluconazole 150 mg PO DAILY PRN 05/19/22 [History] Acetaminophen Tab [Tylenol] 650 mg PO Q6H PRN 10/02/22 [History] Lasmiditan Succinate [Reyvow] 50 mg PO DAILY PRN 10/02/22 [History] Metoclopramide [Reglan] 10 mg PO DAILY PRN 10/02/22 [History] Ketorolac [Toradol] 10 mg PO Q6HR PRN 10/30/22 [History] buPROPion XL [Wellbutrin XL] 300 mg PO HS 01/08/23 [History] Vit No.179/Iron/Folic [ Tablet] 1 each PO DAILY 07/02/23 [History] Biotin 5,000 mcg PO DAILY 11/19/23 [History] HYDROcodone/APAP 10-325MG [[place] 10-325] 1 tab PO BID PRN 11/19/23 [History] hydrOXYzine HCL [Atarax] 100 mg PO HS PRN 04/28/24 [History] tiZANidine [Zanaflex] 2 mg PO HS PRN 04/28/24 [History] Lidocaine 4% Patch 1 patch TOPICAL DAILY #10 patch 06/25/24 [Rx] Ascorbic Acid [Vitamin C] 500 mg PO DAILY 06/27/24 [History] Dextroamphetamine/Amphetamine [Adderall] 40 mg PO DAILY 06/27/24 [History] Amitriptyline HCl [Elavil] 100 mg PO HS 06/30/24 [History] Ibuprofen [Motrin] 600 mg PO Q8HR PRN #30 tab 07/07/24 [Rx] Follow up Appointment(s)/Referral(s): Brayan Meadows MD [STAFF PHYSICIAN] - 07/08/24 2:00 pm Activity/Diet/Wound Care/Special Instructions: No driving while taking [place]. Pain medications per pain contract physician No lifting over 10 pounds Shower daily. No soaking or tub baths for 2 weeks Very light activity until you are reevaluated at your follow up appointment with your surgeon Keep a log of ADAN drain output and bring with you to your follow-up appointment Milk/strip drains 2-3 times a day Do not take Toradol while taking Motrin Ambulate hourly to avoid developing a blood clots Discharge Disposition: HOME SELF-CARE
[2024-07-07] MEDS ORDERED: FAMOTIDINE 20 MG TAB PO SCH (21:00)
--- NOTE | 2024-07-08 01:56 | P.PN ---
Subjective Progress Note Date: 07/07/24 This is a pleasant 39-year-old female who was admitted under surgical services and is status post panniculectomy along with incisional hernia repair and excision of mesh from previous hernia being closely monitored. Patient reports she follows with [facility] for Dr. Varela in the outpatient setting with a past medical history of fibromyalgia, asthma, GERD, bipolar, diabetes. Patient reports she is diet controlled diabetic after losing weight her numbers have improved. Patient did undergo presurgical clearance and has been following with surgery outpatient. Patient reports significant abdominal discomfort and tenderness and abdominal binder is noted. Blood pressures have been soft and is maintained on IV hydration. Patient being started on clear liquids per general surgery. Will resume home medications once tolerating oral intake. 07/02/2024 Patient is seen in follow-up this morning feels slightly better abdominal pain persists although nausea has subsided somewhat. Patient is tolerating clear liquids slowly advancing and diet has been advanced per surgery once patient can tolerate more. Patient with incentive spirometer at the bedside encouraged to continue using at least 10 times every hour while awake. Continue gentle hydration and decrease fluid slightly once tolerating more oral intake. Patient hemoglobin slightly low at 7.1 with no active bleeding noted other than continuous ADAN drain output from surgery. Patient is being transfused 1 unit of PRBC per surgery. 07/03/2024 Patient is seen and evaluated in follow-up today and reports was able to get up and continues with abdominal discomfort but improved from yesterday. Patient continues with ADAN drainage output and being monitored closely as the right 1 is having continued output and being emptied more frequently, no active bleeding noted as this has been ongoing since surgery. Patient did receive 1 unit of PRBC yesterday and hemoglobin slightly improved at 7.9 and will monitor closely. Blood pressures are somewhat improved although remain soft. Patient has been encouraged to continue using incentive spirometer and increase activity as tolerated. Patient's diet has been advanced and reports to tolerating. Patient is passing gas with no bowel movement as of yet. Patient is voiding with no difficulties. 07/04/2024 Patient is seen in follow-up today continues with intense abdominal pain al though reports this slightly improved since yesterday. Pain medications adjusted although patient continues to request IV Dilaudid and discussed with the patient about attempting to avoid IV narcotics if possible. Patient does chronically take Kendall's at home and has been resumed and patient reports this does not touch the pain. Patient also has other as needed medications available. Patient is using incentive spirometer and on room air encouraged to continue using at least 10 times every hour while awake. Patient has been up and walking and encouraged her to increase activity and sit up more frequently. Patient continues to have significant serous output noted in the JPs especially on the right and hemoglobin is currently 7.7. Will follow-up on repeat labs. That 07/05/2024 Patient is evaluated in follow up on the medical floor. Sitting up at the edge of the bed. Reports feeling "off" today. Having increased abdominal discomfort specifically in the LUQ. States IV dilaudid is the only medication currently helping. Vitals are stable and blood pressure 126/79. White blood cell count 6.1, hgb 7.4, sodium 139, potassium 4.4. BUN 20.4, creatinine 0.8. 07/06/2024 Patient evaluated today in follow up on the medical floor. Patient evaluated up ambulating in the hallway. Continues to report significant abdominal pain requiring IV ativan although reports was able to ambulate for slightly longer than the day prior. Hemoglobin up to 8.4. Iron is low at 30, %saturation low at 8.15 and ferritin level is low normal at 30.9. right abdomen with 270 mls blood drainage in the last 24 hours. 07/07/2024 Patient is seen and evaluated in follow-up today and continues to report severe pain in the abdomen with a burning sensation in the lower abdomen. Patient continues with ADAN drains with serous output and will be going home with drainage. Per nursing staff patient continues on IV Dilaudid and has been attempting to wean as tolerated. Patient to continue with Kendall although she reports this is not helping her pain. Patient does follow with pain management outpatient and has been instructed to follow-up on discharge. Patient is afebrile with no reported chest pain or shortness of breath. Patient is tolerating diet with occasional nausea and no vomiting. Patient is now having bowel movements and urinating with no difficulty. Review of systems: Constitutional: No reports of fatigue, fever, or chills Cardiovascular: No reports of chest pain or palpitations Respiratory: No reports of shortness of breath or cough GI: No reports of nausea, vomiting, or diarrhea, reports passing gas, reports had a large bowel movement last night : No reports of dysuria or retention Neurovascular: reports of generalized weakness when standing, but is improved All medications have been reviewed PHYSICAL EXAMINATION: GENERAL: The patient is alert and oriented x3, sitting at the side of the bed. Well developed, well nourished. Obese HEENT: Pupils are round and equally reacting to light. EOMI. No scleral icterus. No conjunctival pallor. Normocephalic, atraumatic. No pharyngeal erythema. No thyromegaly. CARDIOVASCULAR: S1 and S2 present. No murmurs, rubs, or gallops. PULMONARY: Diminished breath sounds bilaterally otherwise chest is clear to auscultation, no wheezing or crackles. ABDOMEN: Soft, slightly tender, nondistended, normoactive bowel sounds. No palpable organomegaly. Abdominal binder noted, ADAN drains noted with serous output MUSCULOSKELETAL: No joint swelling or deformity. EXTREMITIES: No cyanosis, clubbing, or pedal edema. NEUROLOGICAL: Gross neurological examination did not reveal any focal deficits. Diffusely weak SKIN: No rashes. Assessment: Panniculus, status post panniculectomy with incisional hernia repair and excision of previous mesh Acute blood loss anemia secondary to above, 7.1, status post 1 unit of PRBC this admission, hemoglobin remains above 8 Mild underlying iron deficiency Constipation History of diabetes mellitus, diet controlled History of bipolar GERD Asthma, not in exacerbation Obesity with a BMI of 35.1 GI prophylaxis DVT prophylaxis Full code Plan: Patient is status post panniculectomy along with incisional hernia repair and excision of previous mesh Hemoglobin is 8.4 today recommend close monitoring and follow-up on repeat CBC outpatient in the next few days. Monitor ADAN drain output closely. Patient will be going home with a ADAN drain recommend close outpatient follow-up with general surgery in 1 week IV ferrlecit x 1 dose given recommend outpatient follow-up with primary care provider as well. Encouraged incentive spirometer use at least 10 times every hour while awake. Patient instructed to take home and continue using Encourage slowly getting up into the chair with assistance and sitting up more frequently. Continue abdominal binder Patient is medically stable once cleared by general surgery for discharge. Thank you kindly for this consultation. We will continue to follow with general surgery during hospitalization. The impression and plan of care has been dictated by Rachel Peñaloza, Nurse Practitioner as directed. Dr. Gagandeep MD I have performed a history and examination and MDM of this patient, discussed the same with the dictator, and agree with the dictator's assessment and plan as written ,documented as a scribe. Based on total visit time, I have performed more than 50% of the visit. Objective - Vital Signs Vital signs: Vital Signs Temp 98.3 F 07/07/24 07:20 Pulse 96 07/07/24 07:20 Resp 16 07/07/24 07:20 BP 102/66 07/07/24 07:20 Pulse Ox 94 L 07/07/24 07:20 FiO2 Intake & Output 07/06/24 07/07/24 07/07/24 18:59 06:59 18:59 Output Total 180 120 Balance -180 -120 Output: Drainage 180 120 Left Abdomen 40 30 Right abdomen 140 90 Other: Voiding Method Toilet Toilet # Voids 4 5 # Bowel Movements 2 - Labs CBC & Chem 7: 07/07/24 05:24 07/06/24 04:12 Labs: Abnormal Lab Results - Last 24 Hours (Table) 07/06/24 07/06/24 07/07/24 Range/Units 04:12 04:12 05:24 RBC 2.86 L 2.75 L (4.10-5.20) X 10*6/uL Hgb 8.4 L 8.1 L (12.0-15.0) g/dL Hct 27.5 L 26.4 L (37.2-46.3) % MCHC 30.5 L 30.7 L (32.0-37.0) g/dL RDW 14.9 H 14.7 H (11.5-14.5) % Immature Gran # 0.05 H 0.06 H (0.00-0.04) X 10*3/uL Eosinophils # 0.61 H 0.68 H (0.04-0.35) X 10*3/uL BUN/Creatinine Ratio 22.11 H (12.00-20.00) Ratio Glucose 114 H (70-110) mg/dL Iron 30 L (50-170) UG/DL % Saturation 8.15 L (12.00-45.00)
== END 2024-07-07 16:40 | disposition home or self-care (01) | DRG 571 ==
LOC: OR 08:26 → 4SSUR 12:08 → OR 13:42 → UNDOADMOB 07-01 12:06 → 4SSUR 07-01 12:06
PROVIDERS: ADMIT Surgery; ATTEND Surgery
PROC: 0WQF0ZZ Repair Abdominal Wall, Open Approach (ICD-10-PCS; 2024-06-30)
PROC: 0WPF0JZ Removal of Synthetic Substitute from Abdominal Wall, Open Approach (ICD-10-PCS; 2024-06-30)
PROC: 0JB80ZZ Excision of Abdomen Subcutaneous Tissue and Fascia, Open Approach (ICD-10-PCS; principal; 2024-06-30 10:20)
PROC: 30233N1 Transfusion of Nonautologous Red Blood Cells into Peripheral Vein, Percutaneous Approach (ICD-10-PCS; 2024-07-02)
DX: M79.3 Panniculitis, unspecified (principal); D62 Acute posthemorrhagic anemia; E11.9 Type 2 diabetes mellitus without complications; F31.9 Bipolar disorder, unspecified; E66.9 Obesity, unspecified; J45.909 Unspecified asthma, uncomplicated; I95.81 Postprocedural hypotension; K43.2 Incisional hernia without obstruction or gangrene; Z68.35 Body mass index [BMI] 35.0-35.9, adult; Z88.1 Allergy status to other antibiotic agents; Z88.5 Allergy status to narcotic agent; K21.9 Gastro-esophageal reflux disease without esophagitis; R21 Rash and other nonspecific skin eruption; K59.00 Constipation, unspecified; M79.7 Fibromyalgia; E61.1 Iron deficiency; Z88.8 Allergy status to other drugs, medicaments and biological substances
CPT/HCPCS: 64999; 80048; 82728; 83540; 83550; 83735; 85025; 85027; 86850; 86900; 86901; 86920; 88304

== ENCOUNTER 2024-07-10 18:48 | Emergency (ER) | payer BC ==
--- NOTE | 2024-07-10 19:47 | ED ---
Recheck HPI - General Source: patient Mode of arrival: ambulatory Limitations: no limitations <Hawk Graves - Last Filed: 07/10/24 19:45> <Jourdan Anderson - Last Filed: 07/21/24 07:43> - General Stated Complaint: post op drain issue Time Seen by Provider: 07/10/24 19:04 - History of Present Illness Initial Comments: Quick note: This is a 39-year-old female presenting with displacement of left panniculectomy drain noticed today. Patient states she had surgery performed by Dr. Vázquez 10 days ago on 06/30/2024 with no issue since that time until today. Patient states that the drain is three quarters of the way out with associated abdominal pain (10/21). (Hawk Graves) - Related Data Home Medications Medication Instructions Recorded Confirmed Levothyroxine Sodium [Synthroid] 50 mcg PO DAILY 05/05/14 06/30/24 Cetirizine HCl [Zyrtec] 10 mg PO DAILY 08/30/19 06/30/24 Pregabalin [Lyrica] 225 mg PO BID 08/30/19 06/30/24 Nystatin 100,000 Unit/gm Powd 1 applic TOPICAL BID PRN 12/12/21 06/30/24 [Mycostatin Powder] Ergocalciferol (Vitamin D2) 1,250 mcg PO GARCIA 05/19/22 06/27/24 [Drisdol (50,000 Iu)] Fluconazole 150 mg PO DAILY PRN 05/19/22 06/30/24 Acetaminophen Tab [Tylenol] 650 mg PO Q6H PRN 10/02/22 06/30/24 Lasmiditan Succinate [Reyvow] 50 mg PO DAILY PRN 10/02/22 06/30/24 Metoclopramide [Reglan] 10 mg PO DAILY PRN 10/02/22 06/30/24 Ketorolac [Toradol] 10 mg PO Q6HR PRN 10/30/22 06/27/24 buPROPion XL [Wellbutrin XL] 300 mg PO HS 01/08/23 06/30/24 Vit No.179/Iron/Folic 1 each PO DAILY 07/02/23 06/27/24 [ Tablet] Biotin 5,000 mcg PO DAILY 11/19/23 06/27/24 HYDROcodone/APAP 10-325MG [Terreton 1 tab PO BID PRN 11/19/23 06/30/24 10-325] hydrOXYzine HCL [Atarax] 100 mg PO HS PRN 04/28/24 06/30/24 tiZANidine [Zanaflex] 2 mg PO HS PRN 04/28/24 06/30/24 Ascorbic Acid [Vitamin C] 500 mg PO DAILY 06/27/24 06/27/24 Dextroamphetamine/Amphetamine 40 mg PO DAILY 06/27/24 06/30/24 [Adderall] Amitriptyline HCl [Elavil] 100 mg PO HS 06/30/24 06/30/24 Furosemide [Lasix] 1 tab PO DAILY 07/14/24 07/14/24 Previous Rx's Medication Instructions Recorded Lidocaine 4% Patch 1 patch TOPICAL DAILY #10 patch 06/25/24 Ibuprofen [Motrin] 600 mg PO Q8HR PRN #30 tab 07/07/24 Furosemide [Lasix] 20 mg PO DAILY #5 tab 07/11/24 Allergies Allergy/AdvReac Type Severity Reaction Status Date / Time cephalexin [From Keflex] Allergy Rash/Hives Verified 07/14/24 08:53 codeine AdvReac Hallucinati Verified 07/14/24 08:53 ons tramadol AdvReac Hallucinati Verified 07/14/24 08:53 ons valacyclovir HCl AdvReac BLURRED Verified 07/14/24 08:53 [From Valtrex] VISION Review of Systems ROS Other: All systems not noted in ROS Statement are negative. <Hawk Graves - Last Filed: 07/10/24 19:45> ROS Other: All systems not noted in ROS Statement are negative. <Jourdan Anderson - Last Filed: 07/21/24 07:43> ROS Statement: Those systems with pertinent positive or pertinent negative responses have been documented in the HPI. Past Medical History Past Medical History: Asthma, Diabetes Mellitus, Fibromyalgia, GERD/Reflux, Sleep Apnea/CPAP/BIPAP, Thyroid Disorder Additional Past Medical History / Comment(s): Migraines with aura, DDD, NIDDM type II, diverticulitis with perforation/colostomy since reversed, IBS, chronic seroma, CARLITOS/no device, polycystic ovaries, hypothyroid, season allergies History of Any Multi-Drug Resistant Organisms: None Reported Past Surgical History: Bariatric Surgery, Cholecystectomy, Hysterectomy, Uterine Ablation Additional Past Surgical History / Comment(s): 06/06/21 sleeve gastrectomy, Rt Breast biopsy. bowel resection with colostomy/ later colostomy reversal, abdominal surgery to remove scar tissue, EGD, colonoscopy, back pain procedures uterine ablation, lysis of adhesions 07/11/22, 02/04/24-laparscopic hysterectomy. panniculectomy 06-30-24 Past Anesthesia/Blood Transfusion Reactions: No Reported Reaction Additional Past Anesthesia/Blood Transfusion Reaction / Comment(s): no hx blood transfusion, received monoclonal antibodies in Feb 2021 Additional Psychological History / Comment(s): Pt has eating disorder-binge eater, borderline personality disorder. Pt resides with her boyfriend and his mother. She is independent. - Past Family History Mother History Unknown: Yes Family Medical History: COPD Additional Family Medical History / Comment(s): Mother from COPD at the age of 55 yrs. Maternal grandmother - esophageal cancer Brother(s) Family Medical History: Diabetes Mellitus Father Family Medical History: Unable to Obtain <Hawk Graves - Last Filed: 07/10/24 19:45> General Exam <Hawk Graves - Last Filed: 07/10/24 19:45> Limitations: no limitations General appearance: alert, in no apparent distress Head exam: Present: atraumatic, normocephalic Eye exam: Present: normal appearance. Absent: scleral icterus, conjunctival injection ENT exam: Present: normal oropharynx, mucous membranes moist Neck exam: Present: normal inspection Respiratory exam: Present: normal lung sounds bilaterally. Absent: respiratory distress, wheezes, rales, rhonchi, stridor, accessory muscle use Cardiovascular Exam: Present: regular rate, normal rhythm, normal heart sounds. Absent: systolic murmur, diastolic murmur, rubs, gallop GI/Abdominal exam: Present: soft, other (The patient does have [address] in [address]. The drain on the left appears to be at the level of the skin. There is no purulent drainage. There is no erythema or warmth.). Absent: distended, tenderness, guarding, rebound, rigid, mass Extremities exam: Present: normal inspection, normal capillary refill, pedal edema. Absent: calf tenderness Back exam: Present: normal inspection. Absent: CVA tenderness (R), CVA tenderness (L) Neurological exam: Present: alert Skin exam: Present: warm, dry, intact, normal color. Absent: rash <Jourdan Anderson - Last Filed: 07/21/24 07:43> - General Exam Comments Initial Comments: Visual Physical Exam Vital signs reviewed General: Well-appearing, nontoxic, no acute distress. Head: Normocephalic, atraumatic Eyes: PERRLA, EOMI ENT: Airway patent Chest: Nonlabored breathing Skin: No visual rash, normal skin tone Neuro: Alert and oriented 3 Musculoskeletal: No gross abnormalities (Hawk Graves) Course Vital Signs 07/10/24 07/10/24 07/11/24 20:44 22:12 00:20 Temperature 99.2 F 98.0 F Pulse Rate 89 100 87 Respiratory 18 20 18 Rate Blood Pressure 127/87 133/88 128/76 O2 Sat by Pulse 100 98 98 Oximetry Medical Decision Making <Hawk Graves - Last Filed: 07/10/24 19:45> <Jourdan Anderson - Last Filed: 07/21/24 07:43> - Medical Decision Making I completed the quick note portion of this chart signed HILARIO Pathak (Hawk Graves) Patient is a 39-year-old woman presenting with really 2 complaints. She is having decreased drainage and feels like the left sided Harsha-Gross drain has more protruding than had been previously. There is no evidence of infection on the exam. I did strip the drain and it is not having much drainage. The bulb has probably about 10 to 15 mL of serosanguineous drainage. The patient has other complaint of bilateral leg edema and states that she has had weight gain since surgery despite having 13 pound rodríguez ectomy. The patient is not having signs or symptoms of PE. Did obtain duplex Doppler and there is no evidence of DVT. Point will give patient some short course of diuretic and have the patient follow-up with Dr. Vieyra at this point it sounds like the left Harsha-Gross drain may be ready to be discontinued. We discussed signs and symptoms concerning for infection related to the drain as well as other return parame ters. All questions answered. Was pt. sent in by a medical professional or institution (, PA, DESIZING PAD OPERATOR, urgent care, hospital, or senior care...) When possible be specific @ -[No] Did you speak to anyone other than the patient for history (EMS, parent, family, police, friend...)? What history was obtained from this source @ -[No] Did you review nursing and triage notes (agree or disagree)? Why? @ -[I reviewed and agree with nursing and triage notes] Were old charts reviewed (outside hosp., previous admission, EMS record, old EKG, old radiological studies, urgent care reports/EKG's, senior care records)? Report findings @ -[No old charts were reviewed] Differential Diagnosis (chest pain, altered mental status, abdominal pain women, abdominal pain men, vaginal bleeding, weakness, fever, dyspnea, syncope, headache, dizziness, GI bleed, back pain, seizure, CVA, palpatations, mental health, musculoskeletal)? @ -[Differential Abdominal Pain Women: Appendicitis, Cholecystitis, diverticulosis, ischemic bowel, pancreatitis, hepatitis, UTI, gastroenteritis, AAA, incarcerated hernia, bowel obstruction, constipation, inflammatory bowel, hepatitis, peptic ulcer disease, splenic infar ction, perforated viscus, vulvitis, ovarian torsion, PID, kidney stone, placenta abruption, this is not meant to be an all-inclusive list EKG interpreted by me (3pts min.). @ -[As above] X-rays interpreted by me (1pt min.). @ -[None done] CT interpreted by me (1pt min.). @ -[None done] U/S interpreted by me (1pt. min.). @ -[The patient had duplex Doppler of the lower extremity which I interpreted as negative for acute DVT What testing was considered but not performed or refused? (CT, X-rays, U/S, labs)? Why? @ -[None] What meds were considered but not given or refused? Why? @ -[None] Did you discuss the management of the patient with other professionals (professionals i.e. , SOILA, DESIZING PAD OPERATOR, lab, RT, psych nurse, social work case manager, biofuels plant manager, teacher, transit police officer, bilingual patient support caseworker)? Give summary @ -[No] Was smoking cessation discussed for >3mins.? @ -[No] Was critical care preformed (if so, how long)? @ -[No] Were there social determinants of health that impacted care today? How? (Homeles sness, low income, unemployed, alcoholism, drug addiction, transportation, low edu. Level, literacy, decrease access to med. care, fpc, rehab)? @ -[No] Was there de-escalation of care discussed even if they declined (Discuss DNR or withdrawal of care, Hospice)? DNR status @ -[No] What co-morbidities impacted this encounter? (DM, HTN, Smoking, COPD, CAD, Cancer, CVA, ARF, Chemo, Hep., AIDS, mental health diagnosis, sleep apnea, morbid obesity)? @ -[Recent surgery Was patient admitted / discharged? Hospital course, mention meds given and route, prescriptions, significant lab abnormalities, going to OR and other pertinent info. @ -[See above Undiagnosed new problem with uncertain prognosis? @ -[No] Drug Therapy requiring intensive monitoring for toxicity (Heparin, Nitro, Insulin, Cardizem)? @ -[No] Were any procedures done? @ -[No] Diagnosis/symptom? @ -[d acute lower extremity edema Acute, or Chronic, or Acute on Chronic? @ -[Acute Uncomplicated (without systemic symptoms) or Complicated (systemic symptoms)? @ -[Uncomplicated Side effects of treatment? @ -[No] Exacerbation, Progression, or Severe Exacerbation? @ -[No] Poses a threat to life or bodily function? How? (Chest pain, [place], [place], pneumonia, PE, COPD, DKA, ARF, appy, cholecystitis, CVA, Diverticulitis, Homicidal, Suicidal, threat to staff... and all critical care pts) @ -[No] All treatments are based on ideal body weight as in ED triage (Jourdan Adnerson) Disposition <Hawk Graves - Last Filed: 07/10/24 19:45> Is patient prescribed a controlled substance at d/c from ED?: No <Jourdan Anderson - Last Filed: 07/21/24 07:43> Clinical Impression: Leg edema Disposition: HOME SELF-CARE Condition: Good Prescriptions: Furosemide [Lasix] 20 mg PO DAILY #5 tab Referrals: Alfred Varela [Primary Care Provider] - 1-2 days Brayan Meadows MD [STAFF PHYSICIAN] - 1-2 days
--- NOTE | 2024-07-11 00:21 | US ---
EXAM: US Duplex Bilateral Lower Extremities Veins CLINICAL HISTORY: ITS.REASON US Reason: post surgical leg edema TECHNIQUE: Real-time duplex ultrasound scan of the bilateral lower extremity veins integrating B-mode two-dimensional vascular structure, Doppler spectral analysis, color flow Doppler imaging and compression. COMPARISON: No relevant prior studies available. FINDINGS: Right deep veins: Unremarkable. No DVT in the right common femoral, femoral, proximal deep femoral or popliteal veins. The veins demonstrate normal color flow, are normally compressible, with normal phasic flow and/or augmentation response. Right superficial veins: Unremarkable. No thrombus in the visualized right great saphenous vein. Left deep veins: Unremarkable. No DVT in the left common femoral, femoral, proximal deep femoral or popliteal veins. The veins demonstrate normal color flow, are normally compressible, with normal phasic flow and/or augmentation response. Left superficial veins: Unremarkable. No thrombus in the visualized left great saphenous vein. Soft tissues: No acute findings. IMPRESSION: No evidence of acute DVT.
[2024-07-11 00:32] VITALS: BP 128/76; PULSE 87; RESP 18; TEMP 98
[2024-07-11] MEDS: FUROSEMIDE 20 MG TAB PO STA (00:37)
== END 2024-07-11 00:46 | disposition home or self-care (01) ==
LOC: EC 18:48
DX: R60.0 Localized edema (principal); Z88.1 Allergy status to other antibiotic agents; Z88.5 Allergy status to narcotic agent; Z88.6 Allergy status to analgesic agent; Z88.8 Allergy status to other drugs, medicaments and biological substances
CPT/HCPCS: 93970; 99284

== ENCOUNTER → 2024-07-14 | Outpatient (CLI) | payer BC ==
[2024-07-14 08:52] VITALS: BMI 32.5
[2024-07-14 09:30] VITALS: BP 118/78; PULSE 59; RESP 16; TEMP 98.8
--- NOTE | 2024-07-14 10:40 | P.HPBAR ---
Bariatric H&P - History & Physicial H&P Date: 07/14/24 History & Physicial: Visit/CC: f/u bora Patient initial contact: Initial weight: 312 kg Initial weight in pounds: 687.84 Height: 5 ft 7 in Initial BMI: 107.7 Last weight: Current weight: 94.461 kg Current weight in pounds: 208.25 Current BMI: 32.5 [place] body weight (based on NIH guidelines): 61.36 kg Excess body weight loss: 86.7% The patient is a 39 year-old F who presents for Bariatric Assessment. She is postoperative week 1 from panniculectomy. She has had some quick pain. Her drains are producing 30 to 40 cc every 8 hours. Past Medical History Past Medical History: Asthma, Diabetes Mellitus, Fibromyalgia, GERD/Reflux, Sleep Apnea/CPAP/BIPAP, Thyroid Disorder Additional Past Medical History / Comment(s): Migraines with aura, DDD, NIDDM type II, diverticulitis with perforation/colostomy since reversed, IBS, chronic seroma, CARLITOS/no device, polycystic ovaries, hypothyroid, season allergies History of Any Multi-Drug Resistant Organisms: None Reported Past Surgical History: Bariatric Surgery, Cholecystectomy, Hysterectomy, Uterine Ablation Additional Past Surgical History / Comment(s): 06/06/21 sleeve gastrectomy, Rt Breast biopsy. bowel resection with colostomy/ later colostomy reversal, abdominal surgery to remove scar tissue, EGD, colonoscopy, back pain procedures uterine ablation, lysis of adhesions 07/11/22, 02/04/24-laparscopic hysterectomy. panniculectomy 06-30-24 Past Anesthesia/Blood Transfusion Reactions: No Reported Reaction Additional Past Anesthesia/Blood Transfusion Reaction / Comm: no hx blood transfusion, received monoclonal antibodies in Feb 2021 Past Psychological History: Anxiety, Bipolar, Depression Additional Psychological History / Comment(s): Pt has eating disorder-binge eater, borderline personality disorder. Pt resides with her boyfriend and his mother. She is independent. Smoking Status: Never smoker Past Alcohol Use History: Occasional Additional Past Alcohol Use History / Comment(s): 2 drinks/month Past Drug Use History: None Reported - Past Family History Mother History Unknown: Yes Family Medical History: COPD Additional Family Medical History / Comment(s): Mother from COPD at the age of 55 yrs. Maternal grandmother - esophageal cancer Brother(s) Family Medical History: Diabetes Mellitus Father Family Medical History: Unable to Obtain Surgical - Exam Vital Signs Temp Pulse Resp BP 98.8 F 59 L 16 118/78 07/14/24 08:41 07/14/24 08:41 07/14/24 08:41 07/14/24 08:41 - General well developed, well nourished, no distress - Eyes PERRL - ENT normal pinna - Neck no masses - Respiratory normal expansion - Cardiovascular Rhythm: regular - Abdomen Panniculectomy incisions clean dry intact Abdomen: soft, non tender Bariatric Assessment & Plan Plan: Status post panniculus. Patient will follow-up in the office next week for drain removal Bariatric Checklist Checklist: Plan: Checklist: EGD: 1. Hiatal hernia: 2. H. Pylori: HgbA1c: Vitamin D: Smoking: Never smoker Primary care physician referral: JOSE DAVILA/DR AVERY Psychiatry clearance: Cardiology clearance: Sleep study: Diet journal: VTE risk score: VTE risk level: Rehab needs at discharge:
== END ==
LOC: BARWHC3 08:24
PROVIDERS: ATTEND Surgery
DX: M79.3 Panniculitis, unspecified (principal); Z88.1 Allergy status to other antibiotic agents; Z88.5 Allergy status to narcotic agent
CPT/HCPCS: 99212

== ENCOUNTER → 2024-07-21 | Outpatient (CLI) | payer BC ==
[2024-07-21 09:46] VITALS: BP 119/81; PULSE 98; RESP 16; TEMP 98.4; BMI 33.6
== END ==
LOC: BARWHC3 09:14
PROVIDERS: ATTEND Surgery
DX: E66.01 Morbid (severe) obesity due to excess calories (principal); Z53.9 Procedure and treatment not carried out, unspecified reason
CPT/HCPCS: 99212

== ENCOUNTER → 2024-07-28 | Outpatient (CLI) | payer BC ==
[2024-07-28 08:50] VITALS: BP 117/78; PULSE 102; TEMP 98.2; BMI 33.3
--- NOTE | 2024-07-28 11:42 | P.HPBAR ---
Bariatric H&P - History & Physicial H&P Date: 07/28/24 History & Physicial: Visit/CC: bora follow up Patient initial contact: Initial weight: 312 kg Initial weight in pounds: 687.84 Height: 5 ft 7 in Initial BMI: 107.7 Last weight: Current weight: 96.615 kg Current weight in pounds: 213.00 Current BMI: 33.3 [place] body weight (based on NIH guidelines): 61.36 kg Excess body weight loss: 85.9% The patient is a 39 year-old F who presents for Bariatric Assessment. This a 39 female who has a previous history of panniculectomy. Patient states that her left drain has had minimal output. Her right drain is still producing over 30 cc/day. Past Medical History Past Medical History: Asthma, Diabetes Mellitus, Fibromyalgia, GERD/Reflux, Sleep Apnea/CPAP/BIPAP, Thyroid Disorder Additional Past Medical History / Comment(s): Migraines with aura, DDD, NIDDM type II, diverticulitis with perforation/colostomy since reversed, IBS, chronic seroma, CARLITOS/no device, polycystic ovaries, hypothyroid, season allergies History of Any Multi-Drug Resistant Organisms: None Reported Past Surgical History: Bariatric Surgery, Cholecystectomy, Hysterectomy, Uterine Ablation Additional Past Surgical History / Comment(s): 06/06/21 sleeve gastrectomy, Rt Breast biopsy. bowel resection with colostomy/ later colostomy reversal, abdominal surgery to remove scar tissue, EGD, colonoscopy, back pain procedures uterine ablation, lysis of adhesions 07/11/22, 02/04/24-laparscopic hysterectomy. panniculectomy 06-30-24 Past Anesthesia/Blood Transfusion Reactions: No Reported Reaction Additional Past Anesthesia/Blood Transfusion Reaction / Comm: no hx blood transfusion, received monoclonal antibodies in Feb 2021 Smoking Status: Never smoker - Past Family History Mother History Unknown: Yes Family Medical History: COPD Additional Family Medical History / Comment(s): Mother from COPD at the age of 55 yrs. Maternal grandmother - esophageal cancer Brother(s) Family Medical History: Diabetes Mellitus Father Family Medical History: Unable to Obtain Surgical - Exam Vital Signs Temp Pulse BP 98.2 F 102 H 117/78 07/28/24 08:46 07/28/24 08:46 07/28/24 08:46 - General well developed, well nourished, no distress - Eyes PERRL - ENT normal pinna - Neck no masses - Respiratory normal expansion - Cardiovascular Rhythm: regular - Abdomen Incision is well-healed there is a small 1 inch opening on the left side which is healing. There is no sign of infection. Abdomen: soft, non tender Bariatric Assessment & Plan Plan: Status post panniculectomy. Patient will have her left ADAN drain removed today. She will follow-up in 1 week for the remaining drain. Bariatric Checklist Checklist: Plan: Checklist: EGD: 1. Hiatal hernia: 2. H. Pylori: HgbA1c: Vitamin D: Smoking: Never smoker Primary care physician referral: JOSE DAVILA/DR AVERY Psychiatry clearance: Cardiology clearance: Sleep study: Diet journal: VTE risk score: VTE risk level: Rehab needs at discharge:
== END ==
LOC: BARWHC3 08:12
PROVIDERS: ATTEND Surgery
DX: Z48.03 Encounter for change or removal of drains (principal); Z98.890 Other specified postprocedural states; Z68.33 Body mass index [BMI] 33.0-33.9, adult; Z88.5 Allergy status to narcotic agent; Z88.8 Allergy status to other drugs, medicaments and biological substances
CPT/HCPCS: 99212

== ENCOUNTER 2024-07-31 17:07 | Observation (INO) | payer BC ==
--- NOTE | 2024-07-31 19:36 | ED ---
Recheck HPI - General Chief Complaint: Skin/Abscess/Foreign Body Stated Complaint: Post op issue Time Seen by Provider: 07/31/24 18:38 Source: patient, RN notes reviewed, old records reviewed Mode of arrival: ambulatory Limitations: no limitations - History of Present Illness Initial Comments: This is a 39 female sent to the ER for evaluation of admission for postoperative infection, wound dehiscence drainage pain. Patient denying fevers at home having crampy abdominal pain with significant drainage from abdominal wound -: days(s) Returns Today for: needs IV antibiotics, persistent/worsening pain related to initial visit Symptoms Since Prior Visit: worsening pain Context: called for abnormal lab result (Patient had outpatient wound culture), called for positive culture result Treatments Prior to Arrival: Given Antibiotics on, Given Pain Meds on - Related Data Home Medications Medication Instructions Recorded Confirmed Levothyroxine Sodium [Synthroid] 50 mcg PO DAILY 05/05/14 07/28/24 Cetirizine HCl [Zyrtec] 10 mg PO DAILY 08/30/19 07/28/24 Pregabalin [Lyrica] 225 mg PO BID 08/30/19 07/28/24 Nystatin 100,000 Unit/gm Powd 1 applic TOPICAL BID PRN 12/12/21 07/28/24 [Mycostatin Powder] Ergocalciferol (Vitamin D2) 1,250 mcg PO GARCIA 05/19/22 07/28/24 [Drisdol (50,000 Iu)] Fluconazole 150 mg PO DAILY PRN 05/19/22 07/28/24 Acetaminophen Tab [Tylenol] 650 mg PO Q6H PRN 10/02/22 07/28/24 Lasmiditan Succinate [Reyvow] 50 mg PO DAILY PRN 10/02/22 07/28/24 Metoclopramide [Reglan] 10 mg PO DAILY PRN 10/02/22 07/28/24 Ketorolac [Toradol] 10 mg PO Q6HR PRN 10/30/22 07/28/24 buPROPion XL [Wellbutrin XL] 300 mg PO HS 01/08/23 07/28/24 Vit No.179/Iron/Folic 1 each PO DAILY 07/02/23 07/28/24 [ Tablet] Biotin 5,000 mcg PO DAILY 11/19/23 07/28/24 HYDROcodone/APAP 10-325MG [[place] 1 tab PO BID PRN 11/19/23 07/28/24 10-325] hydrOXYzine HCL [Atarax] 100 mg PO HS PRN 04/28/24 07/28/24 tiZANidine [Zanaflex] 2 mg PO HS PRN 04/28/24 07/28/24 Ascorbic Acid [Vitamin C] 500 mg PO DAILY 06/27/24 07/28/24 Dextroamphetamine/Amphetamine 40 mg PO DAILY 06/27/24 07/28/24 [Adderall] Amitriptyline HCl [Elavil] 100 mg PO HS 06/30/24 07/28/24 Previous Rx's Medication Instructions Recorded Lidocaine 4% Patch 1 patch TOPICAL DAILY #10 patch 06/25/24 Ibuprofen [Motrin] 600 mg PO Q8HR PRN #30 tab 07/07/24 Allergies Allergy/AdvReac Type Severity Reaction Status Date / Time cephalexin [From Keflex] Allergy Rash/Hives Verified 07/31/24 17:59 codeine AdvReac Hallucinati Verified 07/31/24 17:59 ons tramadol AdvReac Hallucinati Verified 07/31/24 17:59 ons valacyclovir HCl AdvReac BLURRED Verified 07/31/24 17:59 [From Valtrex] VISION Review of Systems ROS Statement: Those systems with pertinent positive or pertinent negative responses have been documented in the HPI. ROS Other: All systems not noted in ROS Statement are negative. Past Medical History Past Medical History: Asthma, Diabetes Mellitus, Fibromyalgia, GERD/Reflux, Sleep Apnea/CPAP/BIPAP, Thyroid Disorder Additional Past Medical History / Comment(s): Migraines with aura, DDD, NIDDM type II, diverticulitis with perforation/colostomy since reversed, IBS, chronic seroma, CARLITOS/no device, polycystic ovaries, hypothyroid, season allergies History of Any Multi-Drug Resistant Organisms: None Reported Past Surgical History: Bariatric Surgery, Cholecystectomy, Hysterectomy, Uterine Ablation Additional Past Surgical History / Comment(s): 06/06/21 sleeve gastrectomy, Rt Breast biopsy. bowel resection with colostomy/ later colostomy reversal, abdominal surgery to remove scar tissue, EGD, colonoscopy, back pain procedures uterine ablation, lysis of adhesions 07/11/22, 02/04/24-laparscopic hysterectomy. panniculectomy 06-30-24 Past Anesthesia/Blood Transfusion Reactions: No Reported Reaction Additional Past Anesthesia/Blood Transfusion Reaction / Comment(s): no hx blood transfusion, received monoclonal antibodies in Feb 2021 Past Psychological History: Anxiety, Bipolar, Depression Smoking Status: Never smoker Past Alcohol Use History: Rare Past Drug Use History: None Reported - Past Family History Mother History Unknown: Yes Family Medical History: COPD Additional Family Medical History / Comment(s): Mother from COPD at the age of 55 yrs. Maternal grandmother - esophageal cancer Brother(s) Family Medical History: Diabetes Mellitus Father Family Medical History: Unable to Obtain General Exam - General Exam Comments Initial Comments: Incision is actively draining open, does not appear red or tender no purulence Limitations: no limitations General appearance: alert, in no apparent distress Head exam: Present: atraumatic, normocephalic, normal inspection Eye exam: Present: normal appearance, PERRL, EOMI. Absent: scleral icterus, conjunctival injection, periorbital swelling ENT exam: Present: normal exam, mucous membranes moist Neck exam: Present: normal inspection. Absent: tenderness, meningismus, lymphadenopathy Respiratory exam: Present: normal lung sounds bilaterally. Absent: respiratory distress, wheezes, rales, rhonchi, stridor Cardiovascular Exam: Present: regular rate, normal rhythm, normal heart sounds. Absent: systolic murmur, diastolic murmur, rubs, gallop, clicks GI/Abdominal exam: Present: soft, normal bowel sounds. Absent: distended, tenderness, guarding, rebound, rigid Extremities exam: Present: normal inspection, full ROM, normal capillary refill. Absent: tenderness, pedal edema, joint swelling, calf tenderness Back exam: Present: normal inspection Neurological exam: Present: alert, oriented X3, CN II-XII intact Psychiatric exam: Present: normal affect, normal mood Skin exam: Present: warm, dry, intact, normal color. Absent: rash Course Vital Signs 07/31/24 17:56 Temperature 98.2 F Pulse Rate 78 Respiratory 18 Rate Blood Pressure 134/82 O2 Sat by Pulse 97 Oximetry - Reevaluation(s) Reevaluation #1: 07/31/24 20:06 Medical records reviewed Reevaluation #2: 07/31/24 20:06 Patient symptoms improved Reevaluation #3: 07/31/24 20:06 Patient informed of results questions answered Reevaluation #4: Was pt. sent in by a medical professional or institution (, PA, OPERATIONAL TEST MECHANIC, urgent care, hospital, or fci...) When possible be specific @ -no Did you speak to anyone other than the patient for history (EMS, parent, family, police, friend...)? What history was obtained from this source @ -no Did you review nursing and triage notes (agree or disagree)? Why? @ -agree Are old charts reviewed (outside hosp., previous admission, EMS record, old EKG, old radiological studies, urgent care reports/EKG's, fci records)? Report findings @ -yes Differential Diagnosis (chest pain, altered mental status, abdominal pain women, abdominal pain men, vaginal bleeding, weakness, fever, dyspnea, syncope, headache, dizziness, GI bleed, back pain, seizure, CVA, palpatations, mental health, musculoskeletal)? @ -prior EKG interpreted by me (3pts min.). @ -yes X-rays interpreted by me (1pt min.). @ -yes negative for acute disease CT interpreted by me (1pt min.). @ -no U/S interpreted by me (1pt. min.). @ -no What testing was considered but not performed or refused? (CT, X-rays, U/S, labs)? Why? @ -none What meds were considered but not given or refused? Why? @ -none Did you discuss the management of the patient with other professionals (professionals i.e. , SOILA, OPERATIONAL TEST MECHANIC, lab, RT, psych nurse, marriage and family social worker, bench patternmaker metal, teacher, executive vice president and chief financial officer, lead case manager)? Give summary @ -no Was smoking cessation discussed for >3mins.? @ -no Was critical care preformed (if so, how long)? @ -no Were there social determinants of health that impacted care today? How? (Homelessness, low income, unemployed, alcoholism, drug addiction, transportation, low edu. Level, literacy, decrease access to med. care, intermediate, rehab)? @ -none Was there de-escalation of care discussed even if they declined (Discuss DNR or withdrawal of care, Hospice)? DNR status @ -no What co-morbidities impacted this encounter? (DM, HTN, Smoking, COPD, CAD, Cancer, CVA, ARF, Chemo, Hep., AIDS, mental health diagnosis, sleep apnea, morbid obesity)? @ -none Was patient admitted / discharged? Hospital course, mention meds given and route, prescriptions, significant lab abnormalities, going to OR and other pertinent info. @ - Undiagnosed new problem with uncertain prognosis? @ -no Drug Therapy requiring intensive monitoring for toxicity (Heparin, Nitro, Insulin, Cardizem)? @ -no Were any procedures done? @ -no Diagnosis/symptom? @ - Acute, or Chronic, or Acute on Chronic? @ -Acute Uncomplicated (without systemic symptoms) or Complicated (systemic symptoms)? @ -Complicated Side effects of treatment? @ -no Exacerbation, Progression, or Severe Exacerbation? @ -exacerbation Poses a threat to life or bodily function? How? (Chest pain, [place], MA, pneumonia, PE, COPD, DKA, ARF, appy, cholecystitis, CVA, Diverticulitis, Homicidal, Suicidal, threat to staff... and all critical care pts) @ -yes Reevaluation #5: Differential Abdominal Pain Women: Appendicitis, Cholecystitis, diverticulosis, ischemic bowel, pancreatitis, hepatitis, UTI, gastroenteritis, AAA, incarcerated hernia, bowel obstruction, constipation, inflammatory bowel, hepatitis, peptic ulcer disease, splenic infarction, perforated viscus, vulvitis, ovarian torsion, PID, kidney stone, placenta abruption, this is not meant to be an all-inclusive list - Consultations Consultation #1: Spoke with [facility] who agrees to admit this patient Medical Decision Making - Medical Decision Making 39 female to ER postoperative pain postoperative draining nonhealed anterior abdominal wall wound sent in by primary care for admission secondary to culture findings. Patient will be admitted for IV antibiotics - Radiology Data Radiology results: report reviewed (CT abd Pelvis is negative for acute diseaase), image reviewed Disposition Clinical Impression: Abdominal pain, Postoperative pain, Postoperative seroma, Morbid obesity, Intractable abdominal pain Disposition: ADMITTED IP TO THIS HOSP Condition: Fair Is patient prescribed a controlled substance at d/c from ED?: No Time of Disposition: 20:00
[2024-07-31] MEDS ORDERED: ONDANSETRON 4 MG/2 ML VIAL IVP PRN (20:03)
[2024-07-31] MEDS ORDERED: NALOXONE 0.4 MG/ML 1 ML VIAL IV PRN (20:03)
[2024-07-31] MEDS ORDERED: VANCOMYCIN IV PER PHARMACY 1 EACH MISC MISCELLANE PRN (20:09)
[2024-07-31] MEDS: SODIUM CHLORIDE 0.9% 1,000 ML IV SCH (20:24)
[2024-07-31] MEDS: diphenhydrAMINE 50 MG/ML 1 ML VIAL IVP STA (20:26)
[2024-07-31] MEDS: HYDROmorphone 1 MG/ML 1 ML SYRINGE IVP STA (20:27)
[2024-07-31 20:28] LABS: Basophils # (A) 0.1 k/uL (0-0.2); Basophils % (A) 1 %; Eosinophils # (A) 0.6 k/uL (0-0.7); Eosinophils % (A) 7 %; HCT 33.7 % (34.0-46.0); Hypochromasia Marked; Lymphocytes # (A) 2.5 k/uL (1.0-4.8); Lymphocytes % (A) 33 %; MCH 25.8 pg (25.0-35.0); MCHC 30.7 g/dL (31.0-37.0); Mean Platelet Volume 6.8; Monocytes # (A) 0.4 k/uL (0-1.0); Monocytes % (A) 5 %; Neutrophils % (A) 52 %; Platelet Count 500 k/uL (150-450); Poikilocytosis Slight; RBC 4.01 m/uL (3.80-5.40); RDW 14.4 % (11.5-15.5); WBC 7.6 k/uL (3.8-10.6)
[2024-07-31 20:35] LABS: HGB 10.4 gm/dL (11.4-16.0)
[2024-07-31] MEDS: VANCOMYCIN 1,500 MG in SODIUM CHLORIDE 0.9% 500 ML 500 ML IVPB ONE (20:46)
[2024-07-31 20:52] LABS: ALT 14 U/L (4-34); AST 26 U/L (14-36); African American GFR (CKD) >90 (>60 ml/min/1.73 sqM); Albumin 3.7 g/dL (3.5-5.0); Alkaline Phosphatase 90 U/L (38-126); Anion Gap 5 mmol/L; Blood Urea Nitrogen 10 mg/dL (7-17); Calcium 9.2 mg/dL (8.4-10.2); Carbon Dioxide 29 mmol/L (22-30); Chloride 102 mmol/L (98-107); Glucose 98 mg/dL (74-99); Magnesium 2.1 mg/dL (1.6-2.3); Non-African American GFR(CKD) >90 (>60 ml/min/1.73 sqM); Phosphorus 3.5 mg/dL (2.5-4.5); Sodium 136 mmol/L (137-145); Total Bilirubin 0.3 mg/dL (0.2-1.3); Total Protein 6.3 g/dL (6.3-8.2)
--- NOTE | 2024-07-31 21:52 | CT ---
EXAMINATION TYPE: CT abdomen pelvis w con DATE OF EXAM: 07/31/2024 9:38 PM COMPARISON: 02/03/2023 CLINICAL INDICATION: Female, 39 years old with history of pain, ABD PAIN TECHNIQUE:CT scan of the abdomen and pelvis is performed without Oral Contrast and with IV Contrast, patient injected with 100 mL of Isovue 300. CT DLP: 1638 mGycm, Automated exposure control for dose reduction was used. FINDINGS: LUNG BASES-: No visible nodule. No infiltrate. LIVER/GB: The gallbladder is surgically absent. No space occupying hepatic lesion. Biliary tree is of normal caliber. PANCREAS: No inflammation. No distinct mass. SPLEEN: No splenic enlargement. No lesion seen. ADRENALS: No nodule. No thickening. KIDNEYS/BLADDER: No hydronephrosis. No nephrolithiasis. No distinct renal mass. Urinary bladder g rossly unremarkable. BOWEL: Normal appendix. Normal bowel caliber. No inflammation. GENITAL ORGANS: No gross abnormality. LYMPH NODES: No greater than 1cm abdominal or pelvic lymph nodes are appreciated. AORTA: No significant abnormality. OSSEOUS STRUCTURES: No significant abnormality is seen. OTHER: Anterior abdominal wall drain with stranding noted and postoperative changes suspected of rece nt herniorrhaphy. Correlate with patient's surgical history. There is no evidence for abscess or drai nable collection. There is lobulated soft tissue posterior to the anterior abdominal wall appears to contain fat and may reflect postoperative change as well. Lack of GI contrast limits evaluation for b owel involvement although I do not see evidence for dilated bowel or free air. IMPRESSION: 1. Anterior abdominal wall drain with stranding noted and postoperative changes suspected of recent h erniorrhaphy. Correlate with patient's surgical history. There is no evidence for abscess or drainabl e collection. There is lobulated soft tissue posterior to the anterior abdominal wall appears to cont ain fat and may reflect postoperative change as well. Lack of GI contrast limits evaluation for bowel involvement although I do not see evidence for dilated bowel or free air. [facility], , 07/31/2024 9:50 PM
[2024-07-31] MEDS: HYDROmorphone 1 MG/ML 1 ML SYRINGE IVP PRN (23:33)
[2024-08-01 02:18] VITALS: PULSE 70
[2024-08-01] MEDS: VANCOMYCIN 1,500 MG in SODIUM CHLORIDE 0.9% 500 ML 500 ML IVPB SCH ×2 (04:56→16:43)
[2024-08-01] MEDS: tiZANidine 4 MG TAB PO PRN (06:13)
[2024-08-01] MEDS: hydrOXYzine HCL 25 MG TAB PO PRN (06:14)
[2024-08-01 08:03] LABS: Basophils # (A) 0.09 X 10*3/uL (0.00-0.10); Basophils % (A) 1.2 %; Eosinophils % (A) 6.9 %; HCT 31.5 % (37.2-46.3); HGB 9.4 g/dL (12.0-15.0); Lymphocytes # (A) 2.14 X 10*3/uL (0.90-5.00); Lymphocytes % (A) 29.4 %; MCHC 29.8 g/dL (32.0-37.0); Mean Platelet Volume 9.6 FL (9.5-12.2); Monocytes # (A) 0.67 X 10*3/uL (0.20-1.00); Monocytes % (A) 9.2 %; NRBC Per 100 WBC 0 X 10*3/uL (0.00-0.01); Neutrophils # (A) 3.87 X 10*3/uL (1.80-7.70); Neutrophils % (A) 53.2 %; Platelet Count 433 X 10*3/uL (140-440); RBC 3.62 X 10*6/uL (4.10-5.20); RDW 14.4 % (11.5-14.5); WBC 7.28 X 10*3/uL (4.50-10.00)
[2024-08-01 08:14] LABS: ALT 11 U/L (8-44); AST 16 U/L (13-35); Albumin 3.3 g/dL (3.8-4.9); Albumin/Globulin Ratio 1.74 Ratio (1.60-3.17); Alkaline Phosphatase 94 U/L (41-126); Blood Urea Nitrogen 7.5 mg/dL (9.0-27.0); Calcium 8.7 mg/dL (8.7-10.3); Carbon Dioxide 27.4 mmol/L (21.6-31.8); Chloride 105 mmol/L (96-109); Globulin 1.9 g/dL (1.6-3.3); Glucose 89 mg/dL (70-110); Magnesium 1.9 mg/dL (1.5-2.4); Potassium 4.2 mmol/L (3.5-5.5); Sodium 139 mmol/L (135-145); Total Bilirubin <0.2 mg/dL (0.3-1.2); Total Protein 5.2 g/dL (6.2-8.2)
[2024-08-01 08:36] VITALS: BP 93/68; RESP 18; TEMP 97.4
--- NOTE | 2024-08-01 13:10 | P.GSCN ---
History of Present Illness Consult date: 08/01/24 History of present illness: CHIEF COMPLAINT: Abdominal wound HISTORY OF PRESENT ILLNESS: This is a 39-year-old female with a history of morbid obesity with history of sleeve gastrectomy in May 2021 and is now status post panniculectomy, repair of incisional hernia and excision of mesh on 06/30/[address] Meadows. Patient reports on the left side of her abdominal incision she had a wound developed. There is a small area that is dehisced. She reports drainage which this has been serosanguineous. She has been packing the wound. She was sent to the ER by her PCP CT scan abdomen pelvis completed that reported no abscess or fluid collection. She is afebrile. Her white count remains normal. She has been started on antibiotics. Patient reports having bowel movements. Denies any nausea or vomiting. PAST MEDICAL HISTORY: Asthma, Diabetes Mellitus, Fibromyalgia, GERD/Reflux, Sleep Apnea/CPAP/BIPAP, Thyroid Disorder, Migraines with aura, DDD, NIDDM type II, diverticulitis with perforation/colostomy since reversed, IBS, chronic seroma, CARLITOS/no device, polycystic ovaries, hypothyroid, season allergies PAST SURGICAL HISTORY: Bariatric Surgery, Cholecystectomy, Hysterectomy, Uterine Ablation, 06/06/21 sleeve gastrectomy, Rt Breast biopsy. bowel resection with colostomy/ later colostomy reversal, abdominal surgery to remove scar tissue, EGD, colonoscopy, back pain procedures uterine ablation, lysis of adhesions 07/11/22, 02/04/24- laparscopic hysterectomy. panniculectomy 06-30-24 MEDICATIONS: See below ALLERGIES: See below SOCIAL HISTORY: No illicit drug use. REVIEW OF SYSTEMS: CONSTITUTIONAL: Denies fever or chills. HEENT: Denies blurred vision, vision changes, or eye pain. Denies hemoptysis CARDIOVASCULAR: Denies chest pain or pressure. RESPIRATORY: No shortness of breath. GASTROINTESTINAL: See HPI for pertinent findings HEMATOLOGIC: Denies bleeding disorders. GENITOURINARY: Denies any blood in urine or increased urinary frequency. SKIN: Denies pruitis. Denies rash. PHYSICAL EXAM: VITAL SIGNS: Reviewed GENERAL: Well-developed in no acute distress. HEENT: No sclera icterus. Extraocular movements grossly intact. Moist buccal mucosa. Head is atraumatic, normocephalic. No nasal drainage. ABDOMEN: Soft. Nondistended. Panniculectomy incision scar left lower abdomen at the incision there is a 1 inch area of dehiscence. No erythema. The wound is packed. There is serosanguineous drainage noted on dressing. Patient has mild tenderness with palpation mid right abdomen. 1 ADAN drain remains with serosanguineous output. NEUROLOGIC: Alert and oriented. Cranial nerves II through XII grossly intact. LABORATORY DATA: WBC 7.28 Hgb 9.4 platelets 433 Sodium 139 potassium 4.2 creatinine 0.6 IMAGING: CT scan abdomen pelvis reports anterior abdominal wall drain with stranding noted in postoperative changes suspected of recent herniorrhaphy. There is no evidence for abscess or drainable collection. Lobulated soft tissue posterior to the anterior abdominal wall appears to contain fat and may reflect post operative changes well. ASSESSMENT: 1. Abdominal wound with 1 inch dehiscence left lower abdomen at panniculectomy incision site 2. History of panniculectomy on 06/30/2024 PLAN: -Patient seen and examined by Dr. Meadows. Patient can be discharge from surgical standpoint. Recommend to continue wound care with wet-to-dry dressing changes daily with Kerlix and to cover with ABD. -Recommend Levaquin 500 mg daily x 1 week -Patient to follow-up in bariatric clinic next week Physician Mail Distribution Scheme Examiner note has been reviewed by physician. Signing provider agrees with the documented findings, assessment, and plan of care. Past Medical History Past Medical History: Asthma, Diabetes Mellitus, Fibromyalgia, GERD/Reflux, Sleep Apnea/CPAP/BIPAP, Thyroid Disorder Additional Past Medical History / Comment(s): Migraines with aura, DDD, NIDDM type II- Per no longer considered diabetic due to weight loss surgery + improved A1C, diverticulitis with perforation/colostomy since reversed, IBS, chronic seroma, CARLITOS/no device-improvement since surgery , polycystic ovaries, hypothyroid, season allergies History of Any Multi-Drug Resistant Organisms: None Reported Past Surgical History: Bariatric Surgery, Cholecystectomy, Hernia Repair, Hysterectomy, Uterine Ablation Additional Past Surgical History / Comment(s): 06/06/21 sleeve gastrectomy, Rt Breast biopsy. bowel resection with colostomy/ later colostomy reversal, abdominal surgery to remove scar tissue, EGD, colonoscopy, lower back pain procedures, uterine ablation, lysis of adhesions 07/11/22, 02/04/24-laparscopic hysterectomy. panniculectomy 06-30-24 Past Anesthesia/Blood Transfusion Reactions: No Reported Reaction Additional Past Anesthesia/Blood Transfusion Reaction / Comm: No reaction w/ blood Past Psychological History: Anxiety, Bipolar, Depression Additional Psychological History / Comment(s): Pt has eating disorder-binge eater, borderline personality disorder. Pt resides with her boyfriend and his mother. She is independent. Smoking Status: Never smoker Past Alcohol Use History: Rare Additional Past Alcohol Use History / Comment(s): 2 drinks/month Past Drug Use History: None Reported - Past Family History Mother History Unknown: Yes Family Medical History: COPD Additional Family Medical History / Comment(s): Mother from COPD at the age of 55 yrs. Maternal grandmother - esophageal cancer Brother(s) Family Medical History: Diabetes Mellitus Father Family Medical History: Unable to Obtain Medications and Allergies Home Medications Medication Instructions Recorded Confirmed Type Levothyroxine Sodium [Synthroid] 50 mcg PO DAILY 05/05/14 07/31/24 History Cetirizine HCl [Zyrtec] 10 mg PO DAILY 08/30/19 07/31/24 History Nystatin 100,000 Unit/gm Powd 1 applic TOPICAL BID PRN 12/12/21 07/31/24 History [Mycostatin Powder] Ergocalciferol (Vitamin D2) 1,250 mcg PO GARCIA 05/19/22 07/31/24 History [Drisdol (50,000 Iu)] Fluconazole 200 mg PO DAILY PRN 05/19/22 07/31/24 History Acetaminophen Tab [Tylenol] 650 mg PO Q6H PRN 10/02/22 07/31/24 History Lasmiditan Succinate [Reyvow] 50 mg PO DAILY PRN 10/02/22 07/31/24 History Metoclopramide [Reglan] 10 mg PO DAILY PRN 10/02/22 07/31/24 History Ketorolac [Toradol] 10 mg PO Q6HR PRN 10/30/22 07/31/24 History HYDROcodone/APAP 10-325MG [[place] 1 tab PO BID PRN 11/19/23 07/31/24 History 10-325] hydrOXYzine HCL [Atarax] 100 mg PO HS PRN 04/28/24 07/31/24 History tiZANidine [Zanaflex] 2 mg PO HS PRN 04/28/24 07/31/24 History Dextroamphetamine/Amphetamine 40 mg PO DAILY 06/27/24 07/31/24 History [Adderall] Amitriptyline HCl [Elavil] 100 mg PO HS 06/30/24 07/31/24 History Pregabalin [Lyrica] 225 mg PO BID 07/31/24 07/31/24 History buPROPion XL [Wellbutrin XL] 300 mg PO HS 07/31/24 07/31/24 History Levofloxacin [Levaquin] 500 mg PO DAILY 7 Days #1 tab 08/01/24 Rx Allergies Allergy/AdvReac Type Severity Reaction Status Date / Time cephalexin [From Keflex] Allergy Rash/Hives Verified 07/31/24 20:58 codeine AdvReac Hallucinati Verified 07/31/24 20:58 ons tramadol AdvReac Hallucinati Verified 07/31/24 20:58 ons valacyclovir HCl AdvReac BLURRED Verified 07/31/24 20:58 [From Valtrex] VISION Surgical - Exam Vital Signs Temp Pulse Resp BP Pulse Ox 98.2 F 78 18 134/82 97 07/31/24 17:56 07/31/24 17:56 07/31/24 17:56 07/31/24 17:56 07/31/24 17:56 Results - Labs 08/01/24 04:29 08/01/24 04:29 Abnormal Lab Results - Last 24 Hours (Table) 07/31/24 07/31/24 08/01/24 Range/Units 20:23 20:23 04:29 RBC 3.62 L (4.10-5.20) X 10*6/uL Hgb 10.4 L D 9.4 L (11.4-16.0) gm/dL Hct 33.7 L 31.5 L (34.0-46.0) % MCH 26.0 L (27.0-32.0) pg MCHC 30.7 L 29.8 L (31.0-37.0) g/dL Plt Count 500 H (150-450) k/uL Eosinophils # 0.50 H (0.04-0.35) X 10*3/uL Sodium 136 L (137-145) mmol/L BUN (9.0-27.0) mg/dL Total Bilirubin (0.3-1.2) mg/dL Total Protein (6.2-8.2) g/dL Albumin (3.8-4.9) g/dL 08/01/24 Range/Units 04:29 RBC (4.10-5.20) X 10*6/uL Hgb (11.4-16.0) gm/dL Hct (34.0-46.0) % MCH (27.0-32.0) pg MCHC (31.0-37.0) g/dL Plt Count (150-450) k/uL Eosinophils # (0.04-0.35) X 10*3/uL Sodium (137-145) mmol/L BUN 7.5 L (9.0-27.0) mg/dL Total Bilirubin <0.2 L (0.3-1.2) mg/dL Total Protein 5.2 L (6.2-8.2) g/dL Albumin 3.3 L (3.8-4.9) g/dL Diabetes panel 07/31/24 08/01/24 Range/Units 20:23 04:29 Sodium 136 L 139 (137-145) mmol/L Potassium 4.0 4.2 (3.5-5.1) mmol/L Chloride 102 105 (98-107) mmol/L Carbon Dioxide 29 27.4 (22-30) mmol/L BUN 10 7.5 L (7-17) mg/dL Creatinine 0.65 0.6 (0.52-1.04) mg/dL Glucose 98 89 (74-99) mg/dL Calcium 9.2 8.7 (8.4-10.2) mg/dL AST 26 16 (14-36) U/L ALT 14 11 (4-34) U/L Alkaline Phosphatase 90 94 (38-126) U/L Total Protein 6.3 5.2 L (6.3-8.2) g/dL Albumin 3.7 3.3 L (3.5-5.0) g/dL Calcium panel 07/31/24 08/01/24 Range/Units 20:23 04:29 Calcium 9.2 8.7 (8.4-10.2) mg/dL Phosphorus 3.5 3.0 (2.5-4.5) mg/dL Albumin 3.7 3.3 L (3.5-5.0) g/dL Pituitary panel 07/31/24 08/01/24 Range/Units 20:23 04:29 Sodium 136 L 139 (137-145) mmol/L Potassium 4.0 4.2 (3.5-5.1) mmol/L Chloride 102 105 (98-107) mmol/L Carbon Dioxide 29 27.4 (22-30) mmol/L BUN 10 7.5 L (7-17) mg/dL Creatinine 0.65 0.6 (0.52-1.04) mg/dL Glucose 98 89 (74-99) mg/dL Calcium 9.2 8.7 (8.4-10.2) mg/dL Adrenal panel 07/31/24 08/01/24 Range/Units 20:23 04:29 Sodium 136 L 139 (137-145) mmol/L Potassium 4.0 4.2 (3.5-5.1) mmol/L Chloride 102 105 (98-107) mmol/L Carbon Dioxide 29 27.4 (22-30) mmol/L BUN 10 7.5 L (7-17) mg/dL Creatinine 0.65 0.6 (0.52-1.04) mg/dL Glucose 98 89 (74-99) mg/dL Calcium 9.2 8.7 (8.4-10.2) mg/dL Total Bilirubin 0.3 <0.2 L (0.2-1.3) mg/dL AST 26 16 (14-36) U/L ALT 14 11 (4-34) U/L Alkaline Phosphatase 90 94 (38-126) U/L Total Protein 6.3 5.2 L (6.3-8.2) g/dL Albumin 3.7 3.3 L (3.5-5.0) g/dL
--- NOTE | 2024-08-01 13:11 | P.HPIM ---
History of Present Illness H&P Date: 08/01/24 History of present illness; patient is a 39-year-old lady with past medical history significant for asthma, diabetes mellitus, fibromyalgia who recently had panniculectomy along with incisional hernia repair done. Patient stated that she was doing well but noticed significant drainage from his abdominal wound, there was also evidence of slight wound dehiscence. Was complaining of cramping abdominal pain. Patient denies any nausea or vomiting. There is no complaint of altered bowel movements. Patient denies any fever or chills but there is no complaint of orthopnea or PND. Because of increased drainage, patient reached out to to her surgeon who told her to come to the hospital Initial lab work done in the ER showed WBC 7.6, hemoglobin 10.4, platelet count 500, sodium 130s, potassium 4, BUN 10, creatinine 0.65, glucose 98, calcium 9.2, phosphorus 3.5, magnesium 2.1, bilirubin 0.3 AST 26, ALT 14, albumin 3.7 CT abdomen and pelvis done showed anterior abdominal wall drain with stranding noted and postoperative changes suspected of recent hemiorrahphy, no evidence of any abscess or drainable collection. Patient admitted to internal medicine service REVIEW OF SYSTEMS: CONSTITUTIONAL: No fever, no malaise, no fatigue. HEENT: No recent visual problems or hearing problems. Denied any sore throat. CARDIOVASCULAR: No chest pain, orthopnea, PND, no palpitations, no syncope. PULMONARY: No shortness of breath, no cough, no hemoptysis. GASTROINTESTINAL: As mentioned above HEMATOLOGICAL: Denies any bleeding or petechiae. GENITOURINARY: Denies any burning micturition, frequency, or urgency. MUSCULOSKELETAL/RHEUMATOLOGICAL: Denies any joint pain, swelling, or any muscle pain. ENDOCRINE: Denies any polyuria or polydipsia. The rest of the 14-point review of systems is negative. PHYSICAL EXAMINATION: GENERAL: The patient is alert and oriented x3, not in any acute distress. Well developed, well nourished. HEENT: Pupils are round and equally reacting to light. EOMI. No scleral icterus. No conjunctival pallor. Normocephalic, atraumatic. No pharyngeal erythema. No t hyromegaly. CARDIOVASCULAR: S1 and S2 present. No murmurs, rubs, or gallops. PULMONARY: Chest is clear to auscultation, no wheezing or crackles. ABDOMEN: Soft,, surgical incision seen, drain in place, wound dehiscence with packing seen in left lower quadrant MUSCULOSKELETAL: No joint swelling or deformity. EXTREMITIES: No cyanosis, clubbing, or pedal edema. NEUROLOGICAL: Gross neurological examination did not reveal any focal deficits. SKIN: No rashes. Assessment and plan Wound dehiscence Recent panniculectomy with incisional hernia repair History of hypothyroidism History of diabetes mellitus History of asthma Monitor vital signs Monitor CBC Monitor CMP Continue wound care Ordered pharmacy dose vancomycin Ordered pain management Ordered surgical consult Labs and medication were reviewed.. Continue same treatment. Continue with symptomatic treatment. Resume home medication. Monitor labs and vitals. DVT and GI prophylaxis. Further recommendations as per clinical course of the patient Dictation was produced using [employer] dictation software. please excuse any grammatical, word or spelling errors. Past Medical History Past Medical History: Asthma, Diabetes Mellitus, Fibromyalgia, GERD/Reflux, Sleep Apnea/CPAP/BIPAP, Thyroid Disorder Additional Past Medical History / Comment(s): Migraines with aura, DDD, NIDDM type II- Per Dr no longer considered diabetic due to weight loss surgery + improved A1C, diverticulitis with perforation/colostomy since reversed, IBS, chronic seroma, CARLITOS/no device-improvement since surgery , polycystic ovaries, hypothyroid, season allergies History of Any Multi-Drug Resistant Organisms: None Reported Past Surgical History: Bariatric Surgery, Cholecystectomy, Hernia Repair, Hysterectomy, Uterine Ablation Additional Past Surgical History / Comment(s): 06/06/21 sleeve gastrectomy, Rt Breast biopsy. bowel resection with colostomy/ later colostomy reversal, abdominal surgery to remove scar tissue, EGD, colonoscopy, lower back pain procedures, uterine ablation, lysis of adhesions 07/11/22, 02/04/24-laparscopic hysterectomy. panniculectomy 06-30-24 Past Anesthesia/Blood Transfusion Reactions: No Reported Reaction Additional Past Anesthesia/Blood Transfusion Reaction / Comment(s): No reaction w/ blood Past Psychological History: Anxiety, Bipolar, Depression Additional Psychological History / Comment(s): Pt has eating disorder-binge eater, borderline personality disorder. Pt resides with her boyfriend and his mother. She is independent. Smoking Status: Never smoker Past Alcohol Use History: Rare Additional Past Alcohol Use History / Comment(s): 2 drinks/month Past Drug Use History: None Reported - Past Family History Mother History Unknown: Yes Family Medical History: COPD Additional Family Medical History / Comment(s): Mother from COPD at the age of 55 yrs. Maternal grandmother - esophageal cancer Brother(s) Family Medical History: Diabetes Mellitus Father Family Medical History: Unable to Obtain Medications and Allergies Home Medications Medication Instructions Recorded Confirmed Type Levothyroxine Sodium [Synthroid] 50 mcg PO DAILY 05/05/14 07/31/24 History Cetirizine HCl [Zyrtec] 10 mg PO DAILY 08/30/19 07/31/24 History Nystatin 100,000 Unit/gm Powd 1 applic TOPICAL BID PRN 12/12/21 07/31/24 History [Mycostatin Powder] Ergocalciferol (Vitamin D2) 1,250 mcg PO GARCIA 05/19/22 07/31/24 History [Drisdol (50,000 Iu)] Fluconazole 200 mg PO DAILY PRN 05/19/22 07/31/24 History Acetaminophen Tab [Tylenol] 650 mg PO Q6H PRN 10/02/22 07/31/24 History Lasmiditan Succinate [Reyvow] 50 mg PO DAILY PRN 10/02/22 07/31/24 History Metoclopramide [Reglan] 10 mg PO DAILY PRN 10/02/22 07/31/24 History Ketorolac [Toradol] 10 mg PO Q6HR PRN 10/30/22 07/31/24 History HYDROcodone/APAP 10-325MG [[place] 1 tab PO BID PRN 11/19/23 07/31/24 History 10-325] hydrOXYzine HCL [Atarax] 100 mg PO HS PRN 04/28/24 07/31/24 History tiZANidine [Zanaflex] 2 mg PO HS PRN 04/28/24 07/31/24 History Dextroamphetamine/Amphetamine 40 mg PO DAILY 06/27/24 07/31/24 History [Adderall] Amitriptyline HCl [Elavil] 100 mg PO HS 06/30/24 07/31/24 History Pregabalin [Lyrica] 225 mg PO BID 07/31/24 07/31/24 History buPROPion XL [Wellbutrin XL] 300 mg PO HS 07/31/24 07/31/24 History Levofloxacin [Levaquin] 500 mg PO DAILY 7 Days #1 tab 08/01/24 Rx Allergies Allergy/AdvReac Type Severity Reaction Status Date / Time cephalexin [From Keflex] Allergy Rash/Hives Verified 07/31/24 20:58 codeine AdvReac Hallucinati Verified 07/31/24 20:58 ons tramadol AdvReac Hallucinati Verified 07/31/24 20:58 ons valacyclovir HCl AdvReac BLURRED Verified 07/31/24 20:58 [From Valtrex] VISION Physical Exam Vitals: Vital Signs Temp Pulse Pulse Resp BP BP Pulse Ox 08/01/24 08:00 97.4 F L 70 18 93/68 99 08/01/24 00:05 97.7 F 70 19 116/72 100 07/31/24 22:25 98.5 F 78 18 134/87 94 L 07/31/24 21:48 98.1 F 80 18 123/87 100 07/31/24 20:52 78 18 127/86 100 07/31/24 17:56 98.2 F 78 18 134/82 97 Intake and Output 07/31/24 08/01/24 08/01/24 22:59 06:59 14:59 Intake Total 400 Output Total 30 Balance 370 Intake: Oral 400 Output: Drainage 30 Right Groin 30 Other: Voiding Method Toilet # Voids 1 Weight 95.254 kg 95.254 kg Results CBC & Chem 7: 08/01/24 04:29 08/01/24 04:29 Labs: Abnormal Lab Results - Last 24 Hours (Table) 07/31/24 07/31/24 08/01/24 Range/Units 20:23 20:23 04:29 RBC 3.62 L (4.10-5.20) X 10*6/uL Hgb 10.4 L D 9.4 L (11.4-16.0) gm/dL Hct 33.7 L 31.5 L (34.0-46.0) % MCH 26.0 L (27.0-32.0) pg MCHC 30.7 L 29.8 L (31.0-37.0) g/dL Plt Count 500 H (150-450) k/uL Eosinophils # 0.50 H (0.04-0.35) X 10*3/uL Sodium 136 L (137-145) mmol/L BUN (9.0-27.0) mg/dL Total Bilirubin (0.3-1.2) mg/dL Total Protein (6.2-8.2) g/dL Albumin (3.8-4.9) g/dL 08/01/24 Range/Units 04:29 RBC (4.10-5.20) X 10*6/uL Hgb (11.4-16.0) gm/dL Hct (34.0-46.0) % MCH (27.0-32.0) pg MCHC (31.0-37.0) g/dL Plt Count (150-450) k/uL Eosinophils # (0.04-0.35) X 10*3/uL Sodium (137-145) mmol/L BUN 7.5 L (9.0-27.0) mg/dL Total Bilirubin <0.2 L (0.3-1.2) mg/dL Total Protein 5.2 L (6.2-8.2) g/dL Albumin 3.3 L (3.8-4.9) g/dL Thrombosis Risk Factor Assmnt - Choose All That Apply Each Factor Represents 1 point: Age 41-60 years, History of prior major surgery (<1month) Other Risk Factors: No Other congenital or acquired thrombophilia - If yes, enter type in comment: No Thrombosis Risk Factor Assessment Total Risk Factor Score: 2 Thrombosis Risk Factor Assessment Level: Low Risk
--- NOTE | 2024-08-01 13:14 | P.DS ---
Providers Date of admission: 07/31/24 20:05 Expected date of discharge: 08/01/24 Attending physician: Oswaldo Sarkar Consults: 07/31/24 20:03 Consult Physician Routine Consulting Provider: Brayan Meadows Consult Reason/Comments: known Do you want consulting provider notified?: Yes 08/01/24 11:33 Consult Physician Urgent Consulting Provider: Sade Maloney Consult Reason/Comments: abdominal surgical wound Do you want consulting provider notified?: Yes Primary care physician: Alfred Varela Hospital Course: Discharge diagnoses; Abdominal wound with 1 inch dehiscence left lower abdomen at panniculectomy incision site Recent panniculectomy with incisional hernia repair History of hypothyroidism History of diabetes mellitus History of asthma Hospital course; patient is a 39-year-old lady with past medical history significant for asthma, diabetes mellitus, fibromyalgia who recently had panniculectomy along with incisional hernia repair done. Patient stated that she was doing well but noticed significant drainage from his abdominal wound, there was also evidence of slight wound dehiscence. Was complaining of cramping abdominal pain. Patient denies any nausea or vomiting. There is no complaint of altered bowel movements. Patient denies any fever or chills but there is no complaint of orthopnea or PND. Because of increased drainage, patient reached out to to her surgeon who told her to come to the hospital Initial lab work done in the ER showed WBC 7.6, hemoglobin 10.4, platelet count 500, sodium 130s, potassium 4, BUN 10, creatinine 0.65, glucose 98, calcium 9.2, phosphorus 3.5, magnesium 2.1, bilirubin 0.3 AST 26, ALT 14, albumin 3.7 CT abdomen and pelvis done showed anterior abdominal wall drain with stranding noted and postoperative changes suspected of recent hemiorrahphy, no evidence of any abscess or drainable collection. Patient admitted to internal medicine service. Patient was evaluated by surgery, they recommended oral antibiotics for 1 week. ID also evaluated, agreed with continuation of oral antibiotics at discharge. Prescription of Levaquin given by surgery PHYSICAL EXAMINATION: GENERAL: The patient is alert and oriented x3, not in any acute distress. Well developed, well nourished. HEENT: Pupils are round and equally reacting to light. EOMI. No scleral icterus. No conjunctival pallor. Normocephalic, atraumatic. No pharyngeal erythema. No thyromegaly. CARDIOVASCULAR: S1 and S2 present. No murmurs, rubs, or gallops. PULMONARY: Chest is clear to auscultation, no wheezing or crackles. ABDOMEN: Soft,, surgical incision seen, drain in place, wound dehiscence with packing seen in left lower quadrant MUSCULOSKELETAL: No joint swelling or deformity. EXTREMITIES: No cyanosis, clubbing, or pedal edema. NEUROLOGICAL: Gross neurological examination did not reveal any focal deficits. SKIN: No rashes. Dictation was produced using [employer] dictation software. please excuse any grammatical, word or spelling errors. Patient Condition at Discharge: Fair Plan - Discharge Summary Discharge Rx Participant: No New Discharge Prescriptions: New Levofloxacin [Levaquin] 500 mg PO DAILY 7 Days #1 tab Continue Levothyroxine Sodium [Synthroid] 50 mcg PO DAILY Cetirizine HCl [Zyrtec] 10 mg PO DAILY Ergocalciferol (Vitamin D2) [Drisdol (50,000 Iu)] 1,250 mcg PO GARCIA Lasmiditan Succinate [Reyvow] 50 mg PO DAILY PRN PRN Reason: Migraine Headache Ketorolac [Toradol] 10 mg PO Q6HR PRN PRN Reason: migraines HYDROcodone/APAP 10-325MG [[place] 10-325] 1 tab PO BID PRN PRN Reason: Pain tiZANidine [Zanaflex] 2 mg PO HS PRN PRN Reason: Muscle Spasm hydrOXYzine HCL [Atarax] 100 mg PO HS PRN PRN Reason: Insomnia Pregabalin [Lyrica] 225 mg PO BID Nystatin 100,000 Unit/gm Powd [Mycostatin Powder] 1 applic TOPICAL BID PRN PRN Reason: Rash Fluconazole 200 mg PO DAILY PRN PRN Reason: yeast infection Metoclopramide [Reglan] 10 mg PO DAILY PRN PRN Reason: Nausea Acetaminophen Tab [Tylenol] 650 mg PO Q6H PRN PRN Reason: Pain Or Fever > 100.5 Dextroamphetamine/Amphetamine [Adderall] 40 mg PO DAILY Amitriptyline HCl [Elavil] 100 mg PO HS buPROPion XL [Wellbutrin XL] 300 mg PO HS Discharge Medication List Levothyroxine Sodium [Synthroid] 50 mcg PO DAILY 12/23/14 [History] Cetirizine HCl [Zyrtec] 10 mg PO DAILY 08/30/19 [History] Nystatin 100,000 Unit/gm Powd [Mycostatin Powder] 1 applic TOPICAL BID PRN 12/12/21 [History] Ergocalciferol (Vitamin D2) [Drisdol (50,000 Iu)] 1,250 mcg PO GARCIA 05/19/22 [History] Fluconazole 200 mg PO DAILY PRN 05/19/22 [History] Acetaminophen Tab [Tylenol] 650 mg PO Q6H PRN 10/02/22 [History] Lasmiditan Succinate [Reyvow] 50 mg PO DAILY PRN 10/02/22 [History] Metoclopramide [Reglan] 10 mg PO DAILY PRN 10/02/22 [History] Ketorolac [Toradol] 10 mg PO Q6HR PRN 10/30/22 [History] HYDROcodone/APAP 10-325MG [[place] 10-325] 1 tab PO BID PRN 11/19/23 [History] hydrOXYzine HCL [Atarax] 100 mg PO HS PRN 04/28/24 [History] tiZANidine [Zanaflex] 2 mg PO HS PRN 04/28/24 [History] Dextroamphetamine/Amphetamine [Adderall] 40 mg PO DAILY 06/27/24 [History] Amitriptyline HCl [Elavil] 100 mg PO HS 06/30/24 [History] Pregabalin [Lyrica] 225 mg PO BID 07/31/24 [History] buPROPion XL [Wellbutrin XL] 300 mg PO HS 07/31/24 [History] Levofloxacin [Levaquin] 500 mg PO DAILY 7 Days #1 tab 08/01/24 [Rx] Follow up [facility]ment(s[facility]Ref[facility] [place] [facility] - 08/04/24 8:30 am () Alfred Varela [Primary Care Provider] - 08/11/24 1:30 pm Activity/Diet/Wound Care/Special Instructions: Wound care: Change abdominal wound dressing daily. Pack wound with Kerlix wet-to-dry daily and cover with ABD pad. Discharge Disposition: HOME SELF-CARE
--- NOTE | 2024-08-01 23:31 | P.CONS ---
History of Present Illness - Reason for Consult Consult date: 08/01/24 Abdominal surgical wound Requesting physician: Jairo Fox - Chief Complaint Abdominal wound concern for infection x days - History of Present Illness Patient is a 39-year-old female with a past medical history significant for Asthma, Diabetes Mellitus, Fibromyalgia, GERD/Reflux, Sleep Apnea/CPAP/BIPAP, Thyroid Disorder who is status post sleeve gastrectomy May 2021 and subsequent did have panniculectomy repair of incisional hernia and excision of mesh on 06/30/2024 patient did have feeling of most of her incision except of the left lateral side of the abdomen and has been draining some serosanguineous secretion patient mention she was evaluated by her nurse practitioner and she inserted a Q-tip which inserted G-tube concerning for possible wound dehiscence patient was sent to the hospital for wound dehiscence and concerning for infection patient denies having any fever or any chills no fever have recorded since presentation to hospital patient was not tachycardic hypotensive or hypoxic did have a normal white count 7.6 creatinine 0.65 electrolytes are normal liver enzymes are normal patient did have a CT of abdominal pelvis did shows anterior abdominal wall drain with stranding noted postoperative changes suspected of recent herniorrhaphy there is no evidence of for abscess or fluid collection patient has been treated with vancomycin General Surgery has seen the patient and no concern for infection and want the patient to be discharged infectious disease was consulted for evaluation of the wound and need for antibiotic therapy by admitting team Review of Systems Positive point and negatives has been mentioned in the HPI, complete review of systems was performed and all other systems are negative Past Medical History Past Medical History: Asthma, Diabetes Mellitus, Fibromyalgia, GERD/Reflux, Sleep Apnea/CPAP/BIPAP, Thyroid Disorder Additional Past Medical History / Comment(s): Migraines with aura, DDD, NIDDM type II- Per Dr no longer considered diabetic due to weight loss surgery + improved A1C, diverticulitis with perforation/colostomy since reversed, IBS, chronic seroma, CARLITOS/no device-improvement since surgery , polycystic ovaries, hypothyroid, season allergies History of Any Multi-Drug Resistant Organisms: None Reported Past Surgical History: Bariatric Surgery, Cholecystectomy, Hernia Repair, Hysterectomy, Uterine Ablation Additional Past Surgical History / Comment(s): 06/06/21 sleeve gastrectomy, Rt Breast biopsy. bowel resection with colostomy/ later colostomy reversal, abdominal surgery to remove scar tissue, EGD, colonoscopy, lower back pain procedures, uterine ablation, lysis of adhesions 07/11/22, 02/04/24-laparscopic hysterectomy. panniculectomy 06-30-24 Past Anesthesia/Blood Transfusion Reactions: No Reported Reaction Additional Past Anesthesia/Blood Transfusion Reaction / Comm: No reaction w/ blood Past Psychological History: Anxiety, Bipolar, Depression Additional Psychological History / Comment(s): Pt has eating disorder-binge eater, borderline personality disorder. Pt resides with her boyfriend and his mother. She is independent. Smoking Status: Never smoker Past Alcohol Use History: Rare Additional Past Alcohol Use History / Comment(s): 2 drinks/month Past Drug Use History: None Reported - Past Family History Mother History Unknown: Yes Family Medical History: COPD Additional Family Medical History / Comment(s): Mother from COPD at the age of 55 yrs. Maternal grandmother - esophageal cancer Brother(s) Family Medical History: Diabetes Mellitus Father Family Medical History: Unable to Obtain Medications and Allergies Home Medications Medication Instructions Recorded Confirmed Type Levothyroxine Sodium [Synthroid] 50 mcg PO DAILY 05/05/14 07/31/24 History Cetirizine HCl [Zyrtec] 10 mg PO DAILY 08/30/19 07/31/24 History Nystatin 100,000 Unit/gm Powd 1 applic TOPICAL BID PRN 12/12/21 07/31/24 History [Mycostatin Powder] Ergocalciferol (Vitamin D2) 1,250 mcg PO GARCIA 05/19/22 07/31/24 History [Drisdol (50,000 Iu)] Fluconazole 200 mg PO DAILY PRN 05/19/22 07/31/24 History Acetaminophen Tab [Tylenol] 650 mg PO Q6H PRN 10/02/22 07/31/24 History Lasmiditan Succinate [Reyvow] 50 mg PO DAILY PRN 10/02/22 07/31/24 History Metoclopramide [Reglan] 10 mg PO DAILY PRN 10/02/22 07/31/24 History Ketorolac [Toradol] 10 mg PO Q6HR PRN 10/30/22 07/31/24 History HYDROcodone/APAP 10-325MG [[place] 1 tab PO BID PRN 11/19/23 07/31/24 History 10-325] hydrOXYzine HCL [Atarax] 100 mg PO HS PRN 04/28/24 07/31/24 History tiZANidine [Zanaflex] 2 mg PO HS PRN 04/28/24 07/31/24 History Dextroamphetamine/Amphetamine 40 mg PO DAILY 06/27/24 07/31/24 History [Adderall] Amitriptyline HCl [Elavil] 100 mg PO HS 06/30/24 07/31/24 History Pregabalin [Lyrica] 225 mg PO BID 07/31/24 07/31/24 History buPROPion XL [Wellbutrin XL] 300 mg PO HS 07/31/24 07/31/24 History Levofloxacin [Levaquin] 500 mg PO DAILY 7 Days #1 tab 08/01/24 Rx Allergies Allergy/AdvReac Type Severity Reaction Status Date / Time cephalexin [From Keflex] Allergy Rash/Hives Verified 07/31/24 20:58 codeine AdvReac Hallucinati Verified 07/31/24 20:58 ons tramadol AdvReac Hallucinati Verified 07/31/24 20:58 ons valacyclovir HCl AdvReac BLURRED Verified 07/31/24 20:58 [From Valtrex] VISION Physical Exam Vitals: Vital Signs Temp Pulse Pulse Resp BP BP Pulse Ox 08/01/24 08:00 97.4 F L 70 18 93/68 99 08/01/24 00:05 97.7 F 70 19 116/72 100 07/31/24 22:25 98.5 F 78 18 134/87 94 L 07/31/24 21:48 98.1 F 80 18 123/87 100 07/31/24 20:52 78 18 127/86 100 07/31/24 17:56 98.2 F 78 18 134/82 97 Intake and Output 07/31/24 08/01/24 08/01/24 22:59 06:59 14:59 Intake Total 400 Output Total 30 Balance 370 Intake: Oral 400 Output: Drainage 30 Right Groin 30 Other: Voiding Method Toilet # Voids 1 Weight 95.254 kg 95.254 kg GENERAL DESCRIPTION: Middle-age female lying in bed, no distress. No tachypnea or accessory muscle of respiration use. HEENT: Shows Pallor , no scleral icterus. Oral mucous membrane is dry. Kidney NECK: Trachea central, no thyromegaly. LUNGS: Unlabored breathing. Clear to auscultation anteriorly. No wheeze or crackle. HEART: S1, S2, regular rate and rhythm. No loud murmur ABDOMEN: Soft, lower abdominal incision is healed except small wound on the left lateral side wound base with no slough tissue there is no redness or any foul- smelling drainage EXTREMITIES: No edema of feet. SKIN: No rash, no masses palpable. NEUROLOGICAL: The patient is awake, alert, oriented x3, mood and affect normal. Results CBC & Chem 7: 08/01/24 04:29 08/01/24 04:29 Labs: Abnormal Lab Results - Last 24 Hours (Table) 07/31/24 07/31/24 08/01/24 Range/Units 20:23 20:23 04:29 RBC 3.62 L (4.10-5.20) X 10*6/uL Hgb 10.4 L D 9.4 L (11.4-16.0) gm/dL Hct 33.7 L 31.5 L (34.0-46.0) % MCH 26.0 L (27.0-32.0) pg MCHC 30.7 L 29.8 L (31.0-37.0) g/dL Plt Count 500 H (150-450) k/uL Eosinophils # 0.50 H (0.04-0.35) X 10*3/uL Sodium 136 L (137-145) mmol/L BUN (9.0-27.0) mg/dL Total Bilirubin (0.3-1.2) mg/dL Total Protein (6.2-8.2) g/dL Albumin (3.8-4.9) g/dL 08/01/24 Range/Units 04:29 RBC (4.10-5.20) X 10*6/uL Hgb (11.4-16.0) gm/dL Hct (34.0-46.0) % MCH (27.0-32.0) pg MCHC (31.0-37.0) g/dL Plt Count (150-450) k/uL Eosinophils # (0.04-0.35) X 10*3/uL Sodium (137-145) mmol/L BUN 7.5 L (9.0-27.0) mg/dL Total Bilirubin <0.2 L (0.3-1.2) mg/dL Total Protein 5.2 L (6.2-8.2) g/dL Albumin 3.3 L (3.8-4.9) g/dL Assessment and Plan (1) Abdominal wall dehiscence Current Visit: Yes Status: Acute Code(s): T81.321A - DISRUPT/DEHISC CLOSR INT OP (SURG) WND ABD WL MSL/FASC, INIT SNOMED Code(s): 892317295 (2) Open abdominal wall wound Current Visit: Yes Status: Acute Code(s): S31.109A - UNSP OPN WND ABD WALL, UNSP Q W/O PENET PERIT CAV, INIT SNOMED Code(s): 316279518 Plan: 1patient who is status post recent abdominal wall surgery with panniculectomy in this patient now with dehiscence of the left lateral abdominal wall wound however the wound base looks clean there is no evidence of any swelling redness of purulent drainage patient not ready any fever white count is normal CT did not show any evidence of abscess or cellulitis clinically behaving as infected abdominal wall wound 2-patient have advised local wound care with dry Aquacel silver dressing change daily instruction was provided to the patient nurse 3-Levaquin prescription has already been sent by the surgeon however clinical suspicious low for infection and need for antibiotic therapy care was discussed with admitting physician Thank you for this consultation Dictation was produced using [employer] dictation software. please excuse any grammatical, word or spelling errors. Time with Patient: Greater than 30
[2024-08-02] MEDS ORDERED: VANCOMYCIN TROUGH DUE 1 EACH MISC MISCELLANE ONE (08:00)
== END 2024-08-01 21:00 | disposition home or self-care (01) ==
LOC: EC 17:07 → 4SSUR 20:05
PROVIDERS: ADMIT Hospitalist; ATTEND Hospitalist
DX: T81.31XA Disruption of external operation (surgical) wound, not elsewhere classified, initial encounter (principal); E03.9 Hypothyroidism, unspecified; E66.01 Morbid (severe) obesity due to excess calories; J45.909 Unspecified asthma, uncomplicated; M79.7 Fibromyalgia; F31.9 Bipolar disorder, unspecified; F41.9 Anxiety disorder, unspecified; F60.3 Borderline personality disorder; G47.33 Obstructive sleep apnea (adult) (pediatric); K21.9 Gastro-esophageal reflux disease without esophagitis; Z79.890 Hormone replacement therapy; Z79.899 Other long term (current) drug therapy; Z90.710 Acquired absence of both cervix and uterus; Z98.84 Bariatric surgery status; Z88.5 Allergy status to narcotic agent; Z88.1 Allergy status to other antibiotic agents
CPT/HCPCS: 96376 ×2; 96366 ×2; 96365; 96375; 99284; 80053 ×2; 83735 ×2; 84100 ×2; 85025 ×2; 74177; G0378 ×2; J3370 ×2; J1200; J1171 ×2; Q9967

== ENCOUNTER → 2024-08-04 | Outpatient (CLI) | payer BC ==
--- NOTE | 2024-08-04 14:00 | P.HPBAR ---
Bariatric H&P - History & Physicial H&P Date: 08/04/24 History & Physicial: Visit/CC: Patient initial contact: Initial weight: 312 kg Initial weight in pounds: Height: 5 ft 7 in Initial BMI: Last weight: Current weight: 97.976 kg Current weight in pounds: Current BMI: [place] body weight (based on NIH guidelines): Excess body weight loss: The patient is a 39 year-old F who presents for Bariatric Assessment. This a 39-year-old female who has undergone previous panniculectomy. Patient's right ADAN drain is still draining in excess of 40 cc/day. Past Medical History Past Medical History: Asthma, Diabetes Mellitus, Fibromyalgia, GERD/Reflux, Sleep Apnea/CPAP/BIPAP, Thyroid Disorder Additional Past Medical History / Comment(s): Migraines with aura, DDD, NIDDM type II- Per Dr no longer considered diabetic due to weight loss surgery + improved A1C, diverticulitis with perforation/colostomy since reversed, IBS, chronic seroma, CARLITOS/no device-improvement since surgery , polycystic ovaries, hypothyroid, season allergies History of Any Multi-Drug Resistant Organisms: None Reported Past Surgical History: Bariatric Surgery, Cholecystectomy, Hernia Repair, Hy sterectomy, Uterine Ablation Additional Past Surgical History / Comment(s): 06/06/21 sleeve gastrectomy, Rt Breast biopsy. bowel resection with colostomy/ later colostomy reversal, abdominal surgery to remove scar tissue, EGD, colonoscopy, lower back pain procedures, uterine ablation, lysis of adhesions 07/11/22, 02/04/24-laparscopic hysterectomy. panniculectomy 06-30-24 Past Anesthesia/Blood Transfusion Reactions: No Reported Reaction Additional Past Anesthesia/Blood Transfusion Reaction / Comm: No reaction w/ blood Past Psychological History: Anxiety, Bipolar, Depression Additional Psychological History / Comment(s): Pt has eating disorder-binge eater, borderline personality disorder. Pt resides with her boyfriend and his mother. She is independent. Smoking Status: Never smoker Past Alcohol Use History: Rare Additional Past Alcohol Use History / Comment(s): 2 drinks/month Past Drug Use History: None Reported - Past Family History Mother History Unknown: Yes Family Medical History: COPD Additional Family Medical History / Comment(s): Mother from COPD at the age of 55 yrs. Maternal grandmother - esophageal cancer Brother(s) Family Medical History: Diabetes Mellitus Father Family Medical History: Unable to Obtain Surgical - Exam - General well developed, well nourished, no distress - Eyes PERRL - ENT normal pinna, normal nares - Neck no masses - Respiratory normal expansion - Cardiovascular Rhythm: regular - Abdomen Abdomen: soft, non tender Bariatric Assessment & Plan Plan: Patient is doing well status post panniculectomy. Patient will continue ADAN drainage partial follow-up in 10 days for drain removal. Bariatric Checklist Checklist: Plan: Checklist: EGD: 1. Hiatal hernia: 2. H. Pylori: HgbA1c: Vitamin D: Smoking: Never smoker Primary care physician referral: JOSE DAVILA/DR AVERY Psychiatry clearance: Cardiology clearance: Sleep study: Diet journal: VTE risk score: VTE risk level: Rehab needs at discharge:
[2024-08-04 14:32] VITALS: BP 118/80; PULSE 106; RESP 16; TEMP 98.4; BMI 33.8
== END ==
LOC: BARWHC3 08:22
PROVIDERS: ATTEND Surgery
DX: E66.01 Morbid (severe) obesity due to excess calories (principal); Z68.33 Body mass index [BMI] 33.0-33.9, adult; Z98.890 Other specified postprocedural states; Z88.5 Allergy status to narcotic agent; Z88.3 Allergy status to other anti-infective agents; Z88.1 Allergy status to other antibiotic agents
CPT/HCPCS: 99212

== ENCOUNTER 2024-08-08 21:11 | Inpatient (IN) | payer BC ==
--- NOTE | 2024-08-08 22:06 | ED ---
Abdominal Pain HPI - General Source: patient, RN notes reviewed Mode of arrival: ambulatory Limitations: no limitations <Qing Irving - Last Filed: 08/08/24 22:08> - General Source: patient, RN notes reviewed, old records reviewed <Kurtis Gordillo - Last Filed: 08/09/24 02:16> - General Chief Complaint: Abdominal Pain Stated Complaint: Abd pain/post op Time Seen by Provider: 08/08/24 22:01 - History of Present Illness Initial Comments: Quick [id number] female presenting for abdominal pain x 2 hours with associated nausea and vomiting. States she had a skin removal surgery 1 month ago and was hospitalized last week for incision infection. Last bowel movement was this morning and was normal. She has a history of multiple abdominal s urgeries including hernia repair, cholecystectomy, and bariatric surgery. (Qing Irving) Originally seen as a quick note. Patient is a 39-year-old female who presents status post panniculectomy in June 2024. She was admitted last week as she did have some wound dehiscence to the left abdomen. Is complaining with abdominal pain sudden onset this evening with associated nausea but no emesis. Denies any change in bowel movements. Patient did have wound dehiscence however the this appears clean. Her drain is still draining. Presents for further evaluation. No obvious provocative or palliative actions for the pain. (Kurtis Gordillo) - Related Data Home Medications Medication Instructions Recorded Confirmed Levothyroxine Sodium [Synthroid] 50 mcg PO DAILY 05/05/14 07/31/24 Cetirizine HCl [Zyrtec] 10 mg PO DAILY 08/30/19 07/31/24 Nystatin 100,000 Unit/gm Powd 1 applic TOPICAL BID PRN 12/12/21 07/31/24 [Mycostatin Powder] Ergocalciferol (Vitamin D2) 1,250 mcg PO GARCIA 05/19/22 07/31/24 [Drisdol (50,000 Iu)] Fluconazole 200 mg PO DAILY PRN 05/19/22 07/31/24 Acetaminophen Tab [Tylenol] 650 mg PO Q6H PRN 10/02/22 07/31/24 Lasmiditan Succinate [Reyvow] 50 mg PO DAILY PRN 10/02/22 07/31/24 Metoclopramide [Reglan] 10 mg PO DAILY PRN 10/02/22 07/31/24 Ketorolac [Toradol] 10 mg PO Q6HR PRN 10/30/22 07/31/24 HYDROcodone/APAP 10-325MG [Jackson 1 tab PO BID PRN 11/19/23 07/31/24 10-325] hydrOXYzine HCL [Atarax] 100 mg PO HS PRN 04/28/24 07/31/24 tiZANidine [Zanaflex] 2 mg PO HS PRN 04/28/24 07/31/24 Dextroamphetamine/Amphetamine 40 mg PO DAILY 06/27/24 07/31/24 [Adderall] Amitriptyline HCl [Elavil] 100 mg PO HS 06/30/24 07/31/24 Pregabalin [Lyrica] 225 mg PO BID 07/31/24 07/31/24 buPROPion XL [Wellbutrin XL] 300 mg PO HS 07/31/24 07/31/24 Previous Rx's Medication Instructions Recorded Levofloxacin [Levaquin] 500 mg PO DAILY 7 Days #1 tab 08/01/24 Allergies Allergy/AdvReac Type Severity Reaction Status Date / Time cephalexin [From Keflex] Allergy Rash/Hives Verified 08/08/24 21:15 codeine AdvReac Hallucinati Verified 08/08/24 21:15 ons tramadol AdvReac Hallucinati Verified 08/08/24 21:15 ons valacyclovir HCl AdvReac BLURRED Verified 08/08/24 21:15 [From Valtrex] VISION Review of Systems ROS Other: All systems not noted in ROS Statement are negative. <Qing Irving - Last Filed: 08/08/24 22:08> ROS Other: All systems not noted in ROS Statement are negative. <Krutis Gordillo - Last Filed: 08/09/24 02:16> ROS Statement: Those systems with pertinent positive or pertinent negative responses have been documented in the HPI. Review of Systems: CONST: Denies fever EYES: Denies blurry vision ENT: Denies nasal congestion C/V: Denies Chest pain RESP: Denies shortness of breath GI: Endorses abdominal pain : Denies dysuria SKIN: Denies rash. MSK: Denies joint pain. NEURO: Denies headache (Kurtis Gordillo) Past Medical History Past Medical History: Asthma, Diabetes Mellitus, Fibromyalgia, GERD/Reflux, Sleep Apnea/CPAP/BIPAP, Thyroid Disorder Additional Past Medical History / Comment(s): Migraines with aura, DDD, NIDDM t ype II- Per Dr no longer considered diabetic due to weight loss surgery + improved A1C, diverticulitis with perforation/colostomy since reversed, IBS, chronic seroma, CARLITOS/no device-improvement since surgery , polycystic ovaries, hypothyroid, season allergies History of Any Multi-Drug Resistant Organisms: None Reported Past Surgical History: Bariatric Surgery, Cholecystectomy, Hernia Repair, Hysterectomy, Uterine Ablation Additional Past Surgical History / Comment(s): 06/06/21 sleeve gastrectomy, Rt Breast biopsy. bowel resection with colostomy/ later colostomy reversal, abdominal surgery to remove scar tissue, EGD, colonoscopy, lower back pain procedures, uterine ablation, lysis of adhesions 07/11/22, 02/04/24-laparscopic hysterectomy. panniculectomy 06-30-24 Past Anesthesia/Blood Transfusion Reactions: No Reported Reaction Additional Past Anesthesia/Blood Transfusion Reaction / Comment(s): No reaction w/ blood Past Psychological History: Anxiety, Bipolar, Depression Smoking Status: Never smoker Past Alcohol Use History: Rare Past Drug Use History: None Reported - Past Family History Mother History Unknown: Yes Family Medical History: COPD Additional Family Medical History / Comment(s): Mother from COPD at the age of 55 yrs. Maternal grandmother - esophageal cancer Brother(s) Family Medical History: Diabetes Mellitus Father Family Medical History: Unable to Obtain <Qing Irving - Last Filed: 08/08/24 22:08> General Exam Limitations: no limitations <Qing Irvign - Last Filed: 08/08/24 22:08> <Kurtis Gordillo - Last Filed: 08/09/24 02:16> - General Exam Comments Initial Comments: Visual Physical Exam Vital signs reviewed General: Well-appearing, nontoxic, no acute distress. Head: Normocephalic, atraumatic Eyes: PERRLA, EOMI ENT: Airway patent Chest: Nonlabored breathing Skin: No visual rash, normal skin tone Neuro: Alert and oriented 3 Musculoskeletal: No gross abnormalities (Qing Irving) General: Appears in no acute distress. HEAD: Normal with no signs of head trauma. EYES: PERRLA, EOMI, conjunctiva normal, no discharge. ENT: Hearing grossly intact, normal oropharynx. RESPIRATORY: Clear breath sounds bilaterally. No wheezes, rales, or rhonchi. C/V: Regular rate and rhythm. S1 and S2 auscultated, no edema, peripheral pulses 2+ and intact throughout ABD: Abdomen soft, nondistended. No focal tenderness to palpation. Seems to be above the surgical area where the panniculectomy was completed. No guarding or rebound tenderness. No peritoneal signs. Patient has open wound dehiscence over the lateral aspect of the abdominal incision. This is unchanged from when she was admitted a week ago per patient. No significant discharge. No surrounding obvious source of her signs of infection. Abdominal drain is still draining. EXT: Normal range of motion, no obvious deformity SKIN: No rashes or lesions observed on exposed skin. NEURO: Alert and oriented x 4. (Kurtis Gordillo) Course Vital Signs 08/08/24 21:13 Temperature 97.9 F Pulse Rate 99 Respiratory 20 Rate Blood Pressure 117/87 O2 Sat by Pulse 96 Oximetry Medical Decision Making <Qing Irving - Last Filed: 08/08/24 22:08> - Lab Data Result diagrams: 08/08/24 22:46 08/08/24 22:46 <Kurtis Gordillo - Last Filed: 08/09/24 02:16> - Medical Decision Making I completed the quick note portion of this chart signed Qing Irving PA-C (Qing Irving) Was pt. sent in by a medical professional or institution ([facility], TISSUE PACKER, urgent care, hospital, or snf...) When possible be specific @ -No Did you speak to anyone other than the patient for history (EMS, parent, family, police, friend...)? What history was obtained from this source @ -No Did you review nursing and triage notes (agree or disagree)? Why? @ -I reviewed and agree with nursing and triage notes Were old charts reviewed (outside hosp., previous admission, EMS record, old EKG, old radiological studies, urgent care reports/EKG's, snf records)? Report findings @ -Reviewed old charts showing patient was recently admitted for wound dehiscence status post panniculectomy. Patient was recently admitted on August 01, 2024. Differential Diagnosis (chest pain, altered mental status, abdominal pain women, abdominal pain men, vaginal bleeding, weakness, fever, dyspnea, syncope, headache, dizziness, GI bleed, back pain, seizure, CVA, palpatations, mental health, musculoskeletal)? @ -Differential Abdominal Pain Women: Appendicitis, Cholecystitis, diverticulosis, ischemic bowel, pancreatitis, hepatitis, UTI, gastroenteritis, AAA, incarcerated hernia, bowel obstruction, constipation, inflammatory bowel, hepatitis, peptic ulcer disease, splenic infarction, perforated viscus, vulvitis, ovarian torsion, PID, kidney stone, placenta abruption, this is not meant to be an all-inclusive list EKG interpreted by me (3pts min.). @ -None done X-rays interpreted by me (1pt min.). @ -None done CT interpreted by me (1pt min.). @ -CT abdomen pelvis reveals no obvious significant acute process. Her drain is in current place and is surrounded by fluid which appears to be actively draining. Very small fluid collection near the source of the drain tubing at 7 mm. U/S interpreted by me (1pt. min.). @ -None done What testing was considered but not performed or refused? (CT, X-rays, U/S, labs)? Why? @ -None What meds were considered but not given or refused? Why? @ -None Did you discuss the management of the patient with other professionals (professionals i.e. , PA, TISSUE PACKER, lab, RT, psych nurse, social research assistant, malt house kiln operator, teacher, motorized squad commanding officer, pillowcase turner)? Give summary @ -Discussed with on-call surgery, Dr. Brown who is covering for Dr. Meadows. Was smoking cessation discussed for >3mins.? @ -No Was critical care preformed (if so, how long)? @ -No Were there social determinants of health that impacted care today? How? (Homelessness, low income, unemployed, alcoholism, drug addiction, transportation, low edu. Level, literacy, decrease access to med. care, senior living, rehab)? @ -No Was there de-escalation of care discussed even if they declined (Discuss DNR or withdrawal of care, Hospice)? DNR status @ -No What co-morbidities impacted this encounter? (DM, HTN, Smoking, COPD, CAD, Cancer, CVA, ARF, Chemo, Hep., AIDS, mental health diagnosis, sleep apnea, morbid obesity)? @ -None Was patient admitted / discharged? Hospital course, mention meds given and route, prescriptions, significant lab abnormalities, going to OR and other pertinent info. @ -Based on the patient's presentation and physical exam, patient presents emergency department for recurrence of abdominal pain with recent surgery. Originally seen as a quick note. Laboratory studies so far unremarkable. P atient will be administered IV analgesia medications, fluids, Zofran. CT imaging results are pending. Vital signs are within acceptable limits. On reevaluation, patient is still in pain. CT imaging has returned and shows a very small drainable fluid collection at the source of the drain but otherwise no obvious acute findings. I discussed results with patient. She is still in pain and was administered additional analgesia medications. I like to admit the patient for pain control and she was in agreement the plan. I spoke with the covering physician for Dr. Meadows, Dr. Brown who accepted the admission. Consult placed for medicine. Undiagnosed new problem with uncertain prognosis? @ -No Drug Therapy requiring intensive monitoring for toxicity (Heparin, Nitro, Insulin, Cardizem)? @ -No Were any procedures done? @ -No Diagnosis/symptom? @ -Intractable postoperative abdominal pain Acute, or Chronic, or Acute on Chronic? @ -Acute Uncomplicated (without systemic symptoms) or Complicated (systemic symptoms)? @ -Complicated Side effects of treatment? @ -No Exacerbation, Progression, or Severe Exacerbation? @ -No Poses a threat to life or bodily function? How? (Chest pain, [place], [place], pneumonia, PE, COPD, DKA, ARF, appy, cholecystitis, CVA, Diverticulitis, Homicidal, Suicid al, threat to staff... and all critical care pts) @ -Potentially, yes (Kurtis Gordillo) - Lab Data Lab Results 08/08/24 08/08/24 08/08/24 Range/Units 22:19 22:19 22:46 WBC 7.9 (3.8-10.6) k/uL RBC 4.22 (3.80-5.40) m/uL Hgb 10.9 L (11.4-16.0) gm/dL Hct 34.6 (34.0-46.0) % MCV 81.8 (80.0-100.0) fL MCH 25.9 (25.0-35.0) pg MCHC 31.7 (31.0-37.0) g/dL RDW 14.8 (11.5-15.5) % Plt Count 491 H (150-450) k/uL MPV 7.0 Neutrophils % 52 % Lymphocytes % 34 % Monocytes % 5 % Eosinophils % 6 % Basophils % 1 % Neutrophils # 4.1 (1.3-7.7) k/uL Lymphocytes # 2.7 (1.0-4.8) k/uL Monocytes # 0.4 (0-1.0) k/uL Eosinophils # 0.5 (0-0.7) k/uL Basophils # 0.1 (0-0.2) k/uL Hypochromasia Marked Poikilocytosis Slight Sodium (137-145) mmol/L Potassium (3.5-5.1) mmol/L Chloride (98-107) mmol/L Carbon Dioxide (22-30) mmol/L Anion Gap mmol/L BUN (7-17) mg/dL Creatinine (0.52-1.04) mg/dL Est GFR (CKD-EPI)AfAm (>60 ml/min/1.73 sqM) Est GFR (CKD-EPI)NonAf (>60 ml/min/1.73 sqM) Glucose (74-99) mg/dL Plasma Lactic Acid Yobani (0.7-2.0) mmol/L Calcium (8.4-10.2) mg/dL Total Bilirubin (0.2-1.3) mg/dL AST (14-36) U/L ALT (4-34) U/L Alkaline Phosphatase (38-126) U/L Total Protein (6.3-8.2) g/dL Albumin (3.5-5.0) g/dL Lipase (23-300) U/L Urine Color Yellow Urine Appearance Clear (Clear) Urine pH 5.5 (5.0-8.0) Ur Specific [place] 1.035 (1.001-1.035) Urine Protein 1+ H (Negative) Urine Glucose (UA) Negative (Negative) Urine Ketones Negative (Negative) Urine Blood Small H (Negative) Urine Nitrite Negative (Negative) Urine Bilirubin Negative (Negative) Urine Urobilinogen 2.0 (<2.0) mg/dL Ur Leukocyte Esterase Negative (Negative) Urine RBC 2 (0-5) /hpf Urine WBC 1 (0-5) /hpf Ur Squamous Epith Cells 4 (0-4) /hpf Urine Mucus Many H (None) /hpf Urine HCG, Qual Not Detected (Not Detectd) 08/08/24 08/08/24 Range/Units 22:46 22:46 WBC (3.8-10.6) k/uL RBC (3.80-5.40) m/uL Hgb (11.4-16.0) gm/dL Hct (34.0-46.0) % MCV (80.0-100.0) fL MCH (25.0-35.0) pg MCHC (31.0-37.0) g/dL RDW (11.5-15.5) % Plt Count (150-450) k/uL MPV Neutrophils % % Lymphocytes % % Monocytes % % Eosinophils % % Basophils % % Neutrophils # (1.3-7.7) k/uL Lymphocytes # (1.0-4.8) k/uL Monocytes # (0-1.0) k/uL Eosinophils # (0-0.7) k/uL Basophils # (0-0.2) k/uL Hypochromasia Poikilocytosis Sodium 137 (137-145) mmol/L Potassium 4.8 (3.5-5.1) mmol/L Chloride 106 (98-107) mmol/L Carbon Dioxide 25 (22-30) mmol/L Anion Gap 6 mmol/L BUN 17 (7-17) mg/dL Creatinine 0.65 (0.52-1.04) mg/dL Est GFR (CKD-EPI)AfAm >90 (>60 ml/min/1.73 sqM) Est GFR (CKD-EPI)NonAf >90 (>60 ml/min/1.73 sqM) Glucose 85 (74-99) mg/dL Plasma Lactic Acid Yobani 1.9 (0.7-2.0) mmol/L Calcium 9.2 (8.4-10.2) mg/dL Total Bilirubin 0.5 (0.2-1.3) mg/dL AST 34 (14-36) U/L ALT 17 (4-34) U/L Alkaline Phosphatase 82 (38-126) U/L Total Protein 6.9 (6.3-8.2) g/dL Albumin 4.0 (3.5-5.0) g/dL Lipase 188 (23-300) U/L Urine Color Urine Appearance (Clear) Urine pH (5.0-8.0) Ur Specific [place] (1.001-1.035) Urine Protein (Negative) Urine Glucose (UA) (Negative) Urine Ketones (Negative) Urine Blood (Negative) Urine Nitrite (Negative) Urine Bilirubin (Negative) Urine Urobilinogen (<2.0) mg/dL Ur Leukocyte Esterase (Negative) Urine RBC (0-5) /hpf Urine WBC (0-5) /hpf Ur Squamous Epith Cells (0-4) /hpf Urine Mucus (None) /hpf Urine HCG, Qual (Not Detectd) Disposition <Qing Irving - Last Filed: 08/08/24 22:08> Time of Disposition: 02:15 <Kurtis Gordillo - Last Filed: 08/09/24 02:16> Clinical Impression: Intractable abdominal pain Disposition: ADMITTED IP TO THIS [facility] Condition: Stable Referrals: Alfred Varela [Primary Care Provider] - 1-2 days
[2024-08-08 23:04] LABS: Basophils # (A) 0.1 k/uL (0-0.2); Basophils % (A) 1 %; Eosinophils # (A) 0.5 k/uL (0-0.7); Eosinophils % (A) 6 %; HCT 34.6 % (34.0-46.0); HGB 10.9 gm/dL (11.4-16.0); Hypochromasia Marked; Lymphocytes # (A) 2.7 k/uL (1.0-4.8); Lymphocytes % (A) 34 %; MCH 25.9 pg (25.0-35.0); MCHC 31.7 g/dL (31.0-37.0); MCV 81.8 fL (80.0-100.0); Monocytes # (A) 0.4 k/uL (0-1.0); Monocytes % (A) 5 %; Neutrophils # (A) 4.1 k/uL (1.3-7.7); Neutrophils % (A) 52 %; Platelet Count 491 k/uL (150-450); Poikilocytosis Slight; RBC 4.22 m/uL (3.80-5.40); RDW 14.8 % (11.5-15.5); WBC 7.9 k/uL (3.8-10.6)
[2024-08-08 23:11] LABS: Appearance,Urine Clear (Clear); Bilirubin,Urine Negative (Negative); Blood,Urine Small (Negative); Color,Urine Yellow; Glucose,Urine (UA) Negative (Negative); Ketones,Urine Negative (Negative); Leukocyte Esterase,Urine Negative (Negative); Mucus,Urine Many /hpf; Nitrite,Urine Negative (Negative); PH, Urine 5.5 (5.0-8.0); Protein,Urine 1+ (Negative); RBC,Urine 2 /hpf (0-5); Specific Gravity,Urine 1.035 (1.001-1.035); Squamous Epithelial Cell,Urine 4 /hpf (0-4); WBC,Urine 1 /hpf (0-5)
[2024-08-08 23:23] LABS: ALT 17 U/L (4-34); African American GFR (CKD) >90 (>60 ml/min/1.73 sqM); Anion Gap 6 mmol/L; Blood Urea Nitrogen 17 mg/dL (7-17); Calcium 9.2 mg/dL (8.4-10.2); Carbon Dioxide 25 mmol/L (22-30); Chloride 106 mmol/L (98-107); Glucose 85 mg/dL (74-99); Lipase 188 U/L (23-300); Non-African American GFR(CKD) >90 (>60 ml/min/1.73 sqM); Sodium 137 mmol/L (137-145); Total Bilirubin 0.5 mg/dL (0.2-1.3); Total Protein 6.9 g/dL (6.3-8.2)
[2024-08-08 23:25] LABS: AST 34 U/L (14-36); Alkaline Phosphatase 82 U/L (38-126); Potassium 4.8 mmol/L (3.5-5.1)
[2024-08-09] MEDS: ONDANSETRON 4 MG/2 ML VIAL IVP STA (01:02)
[2024-08-09] MEDS: HYDROmorphone 0.5 MG/0.5 ML SYRINGE IVP STA ×2 (01:02→02:13)
[2024-08-09] MEDS: SODIUM CHLORIDE 0.9% 1,000 ML IV ONE (01:03)
--- NOTE | 2024-08-09 01:38 | CT ---
EXAM: CT Abdomen and Pelvis With Intravenous Contrast CLINICAL HISTORY: ITS.REASON CT Reason: abd pain, acute, nonlocalized TECHNIQUE: Axial computed tomography images of the abdomen and pelvis with intravenous contrast. CTDI is 28.2 mGy and DLP is 1504.8 mGy-cm. This CT exam was performed using one or more of the following dose reduction techniques: automated exposure control, adjustment of the mA and/or kV according to patient size, and/or use of iterative reconstruction technique. COMPARISON: No relevant prior studies available. FINDINGS: Lung bases: Unremarkable. No mass. No consolidation. ABDOMEN: Liver: Unremarkable. No mass. Gallbladder and bile ducts: Unremarkable. No calcified stones. No ductal dilation. Pancreas: Unremarkable. No mass. No ductal dilation. Spleen: Unremarkable. No splenomegaly. Adrenals: Unremarkable. No mass. Kidneys and ureters: Unremarkable. No solid mass. No hydronephrosis. Stomach and bowel: Unremarkable. No obstruction. No mucosal thickening. PELVIS: Appendix: No findings to suggest acute appendicitis. Bladder: Unremarkable. No mass. Reproductive: Unremarkable as visualized. ABDOMEN and PELVIS: Intraperitoneal space: Unremarkable. No free air. No significant fluid collection. Bones/joints: No acute fracture. No dislocation. Soft tissues: Recent abdominoplasty. Subcutaneous drain in the anterior subcutaneous fat which is surrounded by a small collection which measures approximately 7 mm in thickness. Vasculature: Unremarkable. No abdominal aortic aneurysm. Lymph nodes: Unremarkable. No enlarged lymph nodes. IMPRESSION: Recent abdominoplasty. Subcutaneous drain in the anterior subcutaneous fat which is surrounded by a small collection which measures approximately 7 mm in thickness.
[2024-08-09] MEDS ORDERED: ACETAMINOPHEN TAB 325 MG TAB PO PRN (02:16)
[2024-08-09] MEDS ORDERED: NALOXONE 0.4 MG/ML 1 ML VIAL IV PRN (02:16)
[2024-08-09] MEDS: SODIUM CHLORIDE 0.9% 1,000 ML IV SCH (02:26)
[2024-08-09] MEDS: HYDROmorphone 0.5 MG/0.5 ML SYRINGE IVP PRN (04:48)
--- NOTE | 2024-08-09 10:18 | P.GSHP ---
History of Present Illness H&P Date: 08/09/24 Chief Complaint: Abdominal pain 39-year-old female underwent panniculectomy with repair of large recurrent incisional hernia on 06/30. Patient had a prolonged hospital stay at that time and then came back to the hospital within the last few weeks for a left sided abdominal wound. Patient says her pain over the last several weeks has gradually improved significantly to the point where she was not having much pain. Yesterday however the patient noticed a sudden onset pain. It was across her abdomen. [place] like a cramp. She came to the hospital for evaluation. The patient had a CAT scan performed which shows no definite acute abnormalities. A small amount of seroma fluid still present. ADAN drain remains in place. White blood cell count normal. She is afebrile. Patient had a wound culture taken of her left lower quadrant incisional wound and it grew out a very unusual sounding bacteria. Patient has followed with Dr. Tavares previously. - Review of Systems Comment: The patient denies any acute changes in vision or hearing, no dysphagia or odynophagia, no chest pain or shortness of breath, no dysuria or hematuria, no headache, no runny nose, no rectal bleeding or melena, no unexplained weight loss Past Medical History Past Medical History: Asthma, Diabetes Mellitus, Fibromyalgia, GERD/Reflux, Sleep Apnea/CPAP/BIPAP, Thyroid Disorder Additional Past Medical History / Comment(s): Migraines with aura, DDD, NIDDM type II- Per no longer considered diabetic due to weight loss surgery + improved A1C, diverticulitis with perforation/colostomy since reversed, IBS, chronic seroma, CARLITOS/no device-improvement since surgery , polycystic ovaries, hypothyroid, season allergies History of Any Multi-Drug Resistant Organisms: None Reported Past Surgical History: Bariatric Surgery, Cholecystectomy, Hernia Repair, Hysterectomy, Uterine Ablation Additional Past Surgical History / Comment(s): 06/06/21 sleeve gastrectomy, Rt Breast biopsy. bowel resection with colostomy/ later colostomy reversal, abdominal surgery to remove scar tissue, EGD, colonoscopy, lower back pain procedures, uterine ablation, lysis of adhesions 07/11/22, 02/04/24-laparscopic hysterectomy. panniculectomy 06-30-24 Past Anesthesia/Blood Transfusion Reactions: No Reported Reaction Additional Past Anesthesia/Blood Transfusion Reaction / Comment(s): No reaction w/ blood Past Psychological History: Anxiety, Bipolar, Depression Additional Psychological History / Comment(s): Pt has eating disorder-binge eat er, borderline personality disorder. Pt resides with her boyfriend and his mother. She is independent. Smoking Status: Never smoker Past Alcohol Use History: Rare Additional Past Alcohol Use History / Comment(s): 2 drinks/month Past Drug Use History: None Reported - Past Family History Mother History Unknown: Yes Family Medical History: COPD Additional Family Medical History / Comment(s): Mother from COPD at the age of 55 yrs. Maternal grandmother - esophageal cancer Brother(s) Family Medical History: Diabetes Mellitus Father Family Medical History: Unable to Obtain Medications and Allergies Home Medications Medication Instructions Recorded Confirmed Type Levothyroxine Sodium [Synthroid] 50 mcg PO DAILY 05/05/14 07/31/24 History Cetirizine HCl [Zyrtec] 10 mg PO DAILY 08/30/19 07/31/24 History Nystatin 100,000 Unit/gm Powd 1 applic TOPICAL BID PRN 12/12/21 07/31/24 History [Mycostatin Powder] Ergocalciferol (Vitamin D2) 1,250 mcg PO GARCIA 05/19/22 07/31/24 History [Drisdol (50,000 Iu)] Fluconazole 200 mg PO DAILY PRN 05/19/22 07/31/24 History Acetaminophen Tab [Tylenol] 650 mg PO Q6H PRN 10/02/22 07/31/24 History Lasmiditan Succinate [Reyvow] 50 mg PO DAILY PRN 10/02/22 07/31/24 History Metoclopramide [Reglan] 10 mg PO DAILY PRN 10/02/22 07/31/24 History Ketorolac [Toradol] 10 mg PO Q6HR PRN 10/30/22 07/31/24 History HYDROcodone/APAP 10-325MG [[place] 1 tab PO BID PRN 11/19/23 07/31/24 History 10-325] hydrOXYzine HCL [Atarax] 100 mg PO HS PRN 04/28/24 07/31/24 History tiZANidine [Zanaflex] 2 mg PO HS PRN 04/28/24 07/31/24 History Dextroamphetamine/Amphetamine 40 mg PO DAILY 06/27/24 07/31/24 History [Adderall] Amitriptyline HCl [Elavil] 100 mg PO HS 06/30/24 07/31/24 History Pregabalin [Lyrica] 225 mg PO BID 07/31/24 07/31/24 History buPROPion XL [Wellbutrin XL] 300 mg PO HS 07/31/24 07/31/24 History Levofloxacin [Levaquin] 500 mg PO DAILY 7 Days #1 tab 08/01/24 Rx Allergies Allergy/AdvReac Type Severity Reaction Status Date / Time cephalexin [From Keflex] Allergy Rash/Hives Verified 08/08/24 21:15 codeine AdvReac Hallucinati Verified 08/08/24 21:15 ons tramadol AdvReac Hallucinati Verified 08/08/24 21:15 ons valacyclovir HCl AdvReac BLURRED Verified 08/08/24 21:15 [From Valtrex] VISION Surgical - Exam Vital Signs Temp Pulse Resp BP Pulse Ox 97.9 F 99 20 117/87 96 08/08/24 21:13 08/08/24 21:13 08/08/24 21:13 08/08/24 21:13 08/08/24 21:13 Physical exam: General: Well-developed, well-nourished HEENT: Normocephalic, sclerae nonicteric Abdomen: Nondistended, mild tenderness, small wound left lateral aspect of panniculectomy scar measuring 2 x 2 cm with a depth of approximately 5 cm, wound is clean with minimal drainage, ADAN drain serous remains in place 40 cc overnight. Extremities: No edema Neuro: Alert and oriented Results - Labs 08/08/24 22:46 08/08/24 22:46 Abnormal Lab Results - Last 24 Hours (Table) 08/08/24 08/08/24 Range/Units 22:19 22:46 Hgb 10.9 L (11.4-16.0) gm/dL Plt Count 491 H (150-450) k/uL Urine Protein 1+ H (Negative) Urine Blood Small H (Negative) Urine Mucus Many H (None) /hpf Diabetes panel 08/08/24 Range/Units 22:46 Sodium 137 (137-145) mmol/L Potassium 4.8 (3.5-5.1) mmol/L Chloride 106 (98-107) mmol/L Carbon Dioxide 25 (22-30) mmol/L BUN 17 (7-17) mg/dL Creatinine 0.65 (0.52-1.04) mg/dL Glucose 85 (74-99) mg/dL Calcium 9.2 (8.4-10.2) mg/dL AST 34 (14-36) U/L ALT 17 (4-34) U/L Alkaline Phosphatase 82 (38-126) U/L Total Protein 6.9 (6.3-8.2) g/dL Albumin 4.0 (3.5-5.0) g/dL Calcium panel 08/08/24 Range/Units 22:46 Calcium 9.2 (8.4-10.2) mg/dL Albumin 4.0 (3.5-5.0) g/dL Pituitary panel 08/08/24 Range/Units 22:46 Sodium 137 (137-145) mmol/L Potassium 4.8 (3.5-5.1) mmol/L Chloride 106 (98-107) mmol/L Carbon Dioxide 25 (22-30) mmol/L BUN 17 (7-17) mg/dL Creatinine 0.65 (0.52-1.04) mg/dL Glucose 85 (74-99) mg/dL Calcium 9.2 (8.4-10.2) mg/dL Adrenal panel 08/08/24 Range/Units 22:46 Sodium 137 (137-145) mmol/L Potassium 4.8 (3.5-5.1) mmol/L Chloride 106 (98-107) mmol/L Carbon Dioxide 25 (22-30) mmol/L BUN 17 (7-17) mg/dL Creatinine 0.65 (0.52-1.04) mg/dL Glucose 85 (74-99) mg/dL Calcium 9.2 (8.4-10.2) mg/dL Total Bilirubin 0.5 (0.2-1.3) mg/dL AST 34 (14-36) U/L ALT 17 (4-34) U/L Alkaline Phosphatase 82 (38-126) U/L Total Protein 6.9 (6.3-8.2) g/dL Albumin 4.0 (3.5-5.0) g/dL Assessment and Plan (1) Intractable abdominal pain Narrative/Plan: Overall patient doing better than when I saw her after her panniculectomy. Unfortunately she is still dealing with intermittent discomforts and now has a wound present. Continue local wound care. Will consult infectious disease to see the patient regarding this unusual culture that was performed as an outpatient. Hopefully discharge tomorrow. Current Visit: Yes Status: Acute Code(s): R10.9 - UNSPECIFIED ABDOMINAL PAIN SNOMED Code(s): 54276776
[2024-08-09 11:58] LABS: Reticulocyte % 1.6 % (0.5-2.0)
--- NOTE | 2024-08-09 12:15 | P.CONS ---
History of Present Illness - Reason for Consult Consult date: 08/09/24 Medical management - History of Present Illness History of present illness; patient is a 39-year-old lady with past medical history significant for asthma, diabetes mellitus, fibromyalgia who recently had panniculectomy along with incisional hernia repair done who presented the ER for abdominal pain. Patient was recently admitted to the hospital on 08/01 following her surgery when she was found to have wound dehiscence, patient was seen by surgery and ID at that time and was discharged on oral antibiotics. Patient sta devon over the last few weeks her pain has improved. Yesterday patient started having excruciating abdominal pain, there was also complained of nausea but no vomiting. Patient denies any fever or chills. Because of abdominal pain, patient came to the ER Initial lab work done in the ER showed WBC 7.9, hemoglobin 10.9, platelet count 491, sodium 137, potassium 4.8, BUN 17, creatinine 0.65, AST 34, ALT 17, lipase 188 UA negative for any infection CT abdomen pelvis done showed recent abdominoplasty, subcutaneous drain in the anterior subcutaneous fat which is surrounded by small collection approximately 7 mm in thickness Patient admitted to internal medicine service REVIEW OF SYSTEMS: CONSTITUTIONAL: No fever, no malaise, no fatigue. HEENT: No recent visual problems or hearing problems. Denied any sore throat. CARDIOVASCULAR: No chest pain, orthopnea, PND, no palpitations, no syncope. PULMONARY: No shortness of breath, no cough, no hemoptysis. GASTROINTESTINAL: As mentioned above NEUROLOGICAL: No headaches, no weakness, no numbness. HEMATOLOGICAL: Denies any bleeding or petechiae. GENITOURINARY: Denies any burning micturition, frequency, or urgency. MUSCULOSKELETAL/RHEUMATOLOGICAL: Denies any joint pain, swelling, or any muscle pain. ENDOCRINE: Denies any polyuria or polydipsia. The rest of the 14-point review of systems is negative. PHYSICAL EXAMINATION: GENERAL: The patient is alert and oriented x3, not in any acute distress. Well developed, well nourished. HEENT: Pupils are round and equally reacting to light. EOMI. No scleral icterus. No conjunctival pallor. Normocephalic, atraumatic. No pharyngeal erythema. No thyromegaly. CARDIOVASCULAR: S1 and S2 present. No murmurs, rubs, or gallops. PULMONARY: Chest is clear to auscultation, no wheezing or crackles. ABDOMEN: Soft, no tenderness, no guarding, surgical incisions seen drain seen MUSCULOSKELETAL: No joint swelling or deformity. EXTREMITIES: No cyanosis, clubbing, or pedal edema. NEUROLOGICAL: Gross neurological examination did not reveal any focal deficits. SKIN: No rashes. Assessment and plan Abdominal pain Abdominal wall fluid collection Recent panniculectomy with incisional hernia repair History of hypothyroidism History of diabetes mellitus History of asthma Monitor vital signs Monitor CBC Monitor CMP Ordered CRP, ESR, Pro-Myke Continue IV fluid Continue pain management Hold off antibiotics at this time, consult ID Surgery following Labs and medication were reviewed.. Continue same treatment. Continue with symptomatic treatment. Resume home medication. Monitor labs and vitals. DVT and GI prophylaxis. Further recommendations as per clinical course of the patient Dictation was produced using [employer] dictation software. please excuse any grammatical, word or spelling errors. Past Medical History Past Medical History: Asthma, Diabetes Mellitus, Fibromyalgia, GERD/Reflux, Sleep Apnea/CPAP/BIPAP, Thyroid Disorder Additional Past Medical History / Comment(s): Migraines with aura, DDD, NIDDM type II- Per Dr no longer considered diabetic due to weight loss surgery + improved A1C, diverticulitis with perforation/colostomy since reversed, IBS, chronic seroma, CARLITOS/no device-improvement since surgery , polycystic ovaries, hypothyroid, season allergies History of Any Multi-Drug Resistant Organisms: None Reported Past Surgical History: Bariatric Surgery, Cholecystectomy, Hernia Repair, Hysterectomy, Uterine Ablation Additional Past Surgical History / Comment(s): 06/06/21 sleeve gastrectomy, Rt Breast biopsy. bowel resection with colostomy/ later colostomy reversal, abdominal surgery to remove scar tissue, EGD, colonoscopy, lower back pain procedures, uterine ablation, lysis of adhesions 07/11/22, 02/04/24-laparscopic hysterectomy. panniculectomy 06-30- Past Anesthesia/Blood Transfusion Reactions: No Reported Reaction Additional Past Anesthesia/Blood Transfusion Reaction / Comm: No reaction w/ blood Past Psychological History: Anxiety, Bipolar, Depression Additional Psychological History / Comment(s): Pt has eating disorder-binge eater, borderline personality disorder. Pt resides with her boyfriend and his mother. She is independent. Smoking Status: Never smoker Past Alcohol Use History: Rare Additional Past Alcohol Use History / Comment(s): 2 drinks/month Past Drug Use History: None Reported - Past Family History Mother History Unknown: Yes Family Medical History: COPD Additional Family Medical History / Comment(s): Mother from COPD at the age of 55 yrs. Maternal grandmother - esophageal cancer Brother(s) Family Medical History: Diabetes Mellitus Father Family Medical History: Unable to Obtain Medications and Allergies Home Medications Medication Instructions Recorded Confirmed Type Levothyroxine Sodium [Synthroid] 50 mcg PO DAILY 05/05/14 07/31/24 History Cetirizine HCl [Zyrtec] 10 mg PO DAILY 08/30/19 07/31/24 History Nystatin 100,000 Unit/gm Powd 1 applic TOPICAL BID PRN 12/12/21 07/31/24 History [Mycostatin Powder] Ergocalciferol (Vitamin D2) 1,250 mcg PO GARCIA 05/19/22 07/31/24 History [Drisdol (50,000 Iu)] Fluconazole 200 mg PO DAILY PRN 05/19/22 07/31/24 History Acetaminophen Tab [Tylenol] 650 mg PO Q6H PRN 10/02/22 07/31/24 History Lasmiditan Succinate [Reyvow] 50 mg PO DAILY PRN 10/02/22 07/31/24 History Metoclopramide [Reglan] 10 mg PO DAILY PRN 10/02/22 07/31/24 History Ketorolac [Toradol] 10 mg PO Q6HR PRN 10/30/22 07/31/24 History HYDROcodone/APAP 10-325MG [[place] 1 tab PO BID PRN 11/19/23 07/31/24 History 10-325] hydrOXYzine HCL [Atarax] 100 mg PO HS PRN 04/28/24 07/31/24 History tiZANidine [Zanaflex] 2 mg PO HS PRN 04/28/24 07/31/24 History Dextroamphetamine/Amphetamine 40 mg PO DAILY 06/27/24 07/31/24 History [Adderall] Amitriptyline HCl [Elavil] 100 mg PO HS 06/30/24 07/31/24 History Pregabalin [Lyrica] 225 mg PO BID 07/31/24 07/31/24 History buPROPion XL [Wellbutrin XL] 300 mg PO HS 07/31/24 07/31/24 History Levofloxacin [Levaquin] 500 mg PO DAILY 7 Days #1 tab 08/01/24 Rx Allergies Allergy/AdvReac Type Severity Reaction Status Date / Time cephalexin [From Keflex] Allergy Rash/Hives Verified 08/08/24 21:15 codeine AdvReac Hallucinati Verified 08/08/24 21:15 ons tramadol AdvReac Hallucinati Verified 08/08/24 21:15 ons valacyclovir HCl AdvReac BLURRED Verified 08/08/24 21:15 [From Valtrex] VISION Physical Exam Vitals: Vital Signs Temp Pulse Pulse Resp BP BP Pulse Ox 08/09/24 07:11 97.6 F 74 18 98/66 98 08/09/24 04:05 97.8 F 85 127/87 95 08/09/24 02:52 97.7 F 82 18 116/74 99 08/08/24 21:13 97.9 F 99 20 117/87 96 Intake and Output 08/08/24 08/09/24 08/09/24 22:59 06:59 14:59 Output Total 40 Balance -40 Output: Drainage 40 Abdomen 40 Other: Voiding Method Toilet Weight 96.615 kg 96.615 kg Results CBC & Chem 7: 08/08/24 22:46 08/08/24 22:46 Labs: Abnormal Lab Results - Last 24 Hours (Table) 08/08/24 08/08/24 Range/Units 22:19 22:46 Hgb 10.9 L (11.4-16.0) gm/dL Plt Count 491 H (150-450) k/uL Urine Protein 1+ H (Negative) Urine Blood Small H (Negative) Urine Mucus Many H (None) /hpf
--- NOTE | 2024-08-09 15:10 | P.CONS ---
History of Present Illness - Reason for Consult Consult date: 08/09/24 Abdominal wound Requesting physician: Jesus Brown - Chief Complaint Abdominal pain x 1 day - History of Present Illness Patient is a 39-year-old female with a past medical history significant for Asthma, Diabetes Mellitus, Fibromyalgia, GERD/Reflux, Sleep Apne a/CPAP/BIPAP, Thyroid Disorder also history of abdominal panniculectomy did have a left lateral abdominal incision nonhealing wound apparently that has been cultured by her primary care physician and did grew Finegoldia magna, patient now presenting to the hospital for evaluation of abdominal pain that started the day of presentation to hospital describing the pain to be intense almost 10 out of 10 sharp with associated nausea and vomiting patient denies high-grade fever or chills no headache runny nose no chest pain shortness of breath or cough or any diarrhea on presentation to the hospital the patient was afebrile no fever have recorded subsequently patient was mildly tachycardic but not hypotensive or hypoxic patient did have white count 7.9 creatinine 0.65 electrolytes has been normal UA has been negative patient did have abdominal pelvis CT which did shows a subcutaneous drain in the anterior subcutaneous fat which is surrounded by small collection which measures approximately 7 mm in thickness patient has been referred to hospital infectious was consulted for further management of the wound and need for antibiotic therapy Review of Systems Positive point and negatives has been mentioned in the HPI, complete review of systems was performed and all other systems are negative Past Medical History Past Medical History: Asthma, Diabetes Mellitus, Fibromyalgia, GERD/Reflux, Sleep Apnea/CPAP/BIPAP, Thyroid Disorder Additional Past Medical History / Comment(s): Migraines with aura, DDD, NIDDM type II- Per Dr no longer considered diabetic due to weight loss surgery + improved A1C, diverticulitis with perforation/colostomy since reversed, IBS, chronic seroma, CARLITOS/no device-improvement since surgery , polycystic ovaries, hypothyroid, season allergies History of Any Multi-Drug Resistant Organisms: None Reported Past Surgical History: Bariatric Surgery, Cholecystectomy, Hernia Repair, Hysterectomy, Uterine Ablation Additional Past Surgical History / Comment(s): 06/06/21 sleeve gastrectomy, Rt Breast biopsy. bowel resection with colostomy/ later colostomy reversal, abdominal surgery to remove scar tissue, EGD, colonoscopy, lower back pain procedures, uterine ablation, lysis of adhesions 07/11/22, 02/04/24-laparscopic hysterectomy. panniculectomy 06-30-24 Past Anesthesia/Blood Transfusion Reactions: No Reported Reaction Additional Past Anesthesia/Blood Transfusion Reaction / Comm: No reaction w/ blood Past Psychological History: Anxiety, Bipolar, Depression Additional Psychological History / Comment(s): Pt has eating disorder-binge eater, borderline personality disorder. Pt resides with her boyfriend and his mother. She is independent. Smoking Status: Never smoker Past Alcohol Use History: Rare Additional Past Alcohol Use History / Comment(s): 2 drinks/month Past Drug Use History: None Reported - Past Family History Mother History Unknown: Yes Family Medical History: COPD Additional Family Medical History / Comment(s): Mother from COPD at the age of 55 yrs. Maternal grandmother - esophageal cancer Brother(s) Family Medical History: Diabetes Mellitus Father Family Medical History: Unable to Obtain Medications and Allergies Home Medications Medication Instructions Recorded Confirmed Type Levothyroxine Sodium [Synthroid] 50 mcg PO DAILY 05/05/14 08/09/24 History Cetirizine HCl [Zyrtec] 10 mg PO DAILY 08/30/19 08/09/24 History Nystatin 100,000 Unit/gm Powd 1 applic TOPICAL BID PRN 12/12/21 08/09/24 History [Mycostatin Powder] Ergocalciferol (Vitamin D2) 1,250 mcg PO GARCIA 05/19/22 08/09/24 History [Drisdol (50,000 Iu)] Fluconazole 200 mg PO DAILY PRN 05/19/22 08/09/24 History Acetaminophen Tab [Tylenol] 650 mg PO Q6H PRN 10/02/22 08/09/24 History Lasmiditan Succinate [Reyvow] 50 mg PO DAILY PRN 10/02/22 08/09/24 History Metoclopramide [Reglan] 10 mg PO DAILY PRN 10/02/22 08/09/24 History Ketorolac [Toradol] 10 mg PO Q6HR PRN 10/30/22 08/09/24 History HYDROcodone/APAP 10-325MG [[place] 1 tab PO BID PRN 11/19/23 08/09/24 History 10-325] hydrOXYzine HCL [Atarax] 100 mg PO HS PRN 04/28/24 08/09/24 History tiZANidine [Zanaflex] 2 mg PO HS PRN 04/28/24 08/09/24 History Dextroamphetamine/Amphetamine 40 mg PO DAILY 06/27/24 08/09/24 History [Adderall] Amitriptyline HCl [Elavil] 100 mg PO HS 06/30/24 08/09/24 History Pregabalin [Lyrica] 225 mg PO BID 07/31/24 08/09/24 History buPROPion XL [Wellbutrin XL] 300 mg PO HS 07/31/24 08/09/24 History Moxifloxacin HCl [Avelox] 400 mg PO DAILY 08/09/24 08/09/24 History Allergies Allergy/AdvReac Type Severity Reaction Status Date / Time cephalexin [From Keflex] Allergy Rash/Hives Verified 08/09/24 14:15 codeine AdvReac Hallucinati Verified 08/09/24 14:15 ons tramadol AdvReac Hallucinati Verified 08/09/24 14:15 ons valacyclovir HCl AdvReac BLURRED Verified 08/09/24 14:15 [From Valtrex] VISION Physical Exam Vitals: Vital Signs Temp Pulse Pulse Resp BP BP Pulse Ox 08/09/24 07:11 97.6 F 74 18 98/66 98 08/09/24 04:05 97.8 F 85 127/87 95 08/09/24 02:52 97.7 F 82 18 116/74 99 08/08/24 21:13 97.9 F 99 20 117/87 96 Intake and Output 08/08/24 08/09/24 08/09/24 22:59 06:59 14:59 Output Total 40 Balance -40 Output: Drainage 40 Abdomen 40 Other: Voiding Method Toilet Weight 96.615 kg 96.615 kg GENERAL DESCRIPTION: Middle-age female up in bed, no distress. No tachypnea or accessory muscle of respiration use. HEENT: Shows Pallor , no scleral icterus. Oral mucous membrane is dry. NECK: Trachea central, no thyromegaly. LUNGS: Unlabored breathing. Clear to auscultation anteriorly. No wheeze or crackle. HEART: S1, S2, regular rate and rhythm. ABDOMEN: Soft, no tenderness , left lower abdominal wall wound with no significant slough tissue or falls [place] EXTREMITIES: No edema of feet. SKIN: No rash, no masses palpable. NEUROLOGICAL: The patient is awake, alert, oriented x3, mood and affect normal. Results CBC & Chem 7: 08/08/24 22:46 08/08/24 22:46 Labs: Abnormal Lab Results - Last 24 Hours (Table) 08/08/24 08/08/24 Range/Units 22:19 22:46 Hgb 10.9 L (11.4-16.0) gm/dL Plt Count 491 H (150-450) k/uL Urine Protein 1+ H (Negative) Urine Blood Small H (Negative) Urine Mucus Many H (None) /hpf Assessment and Plan (1) Allergy to cephalosporin Current Visit: Yes Status: Acute Code(s): Z88.1 - ALLERGY STATUS TO OTHER ANTIBIOTIC AGENTS SNOMED Code(s): 889278610 (2) Intractable abdominal pain Current Visit: Yes Status: Acute Code(s): R10.9 - UNSPECIFIED ABDOMINAL PAIN SNOMED Code(s): 65487442 (3) Open abdominal wall wound Current Visit: No Status: Acute Code(s): S31.109A - UNSP OPN WND ABD WALL, UNSP Q W/O PENET PERIT CAV, INIT SNOMED Code(s): 914443091 Plan: 1patient presented hospital tract abdominal pain along with nausea and vomiting in this patient who did have history of abdominal panniculectomy more than a month ago did have a small wound on the left lateral side nonhealing and outpatient culture grew positive for Finegoldia magna abdominal CT showed small amount of fluid collection clinically not behaving as a sepsis in the patient with no fever or elevated white count however keeping by her symptoms nonhealing of the wound healed, it may be worthwhile to try antibiotic and see response. 2patient with a Keflex allergy with a rash no history of anaphylaxis 3we will start the patient on Unasyn 3 g every 6 hours 4local wound care with a dry Aquacel packing of the wound daily discussed with the nursing staff We will follow on clinical condition and cultures to further adjust medication if needed Thank you for this consultation we will follow the patient along with you Dictation was produced using [employer] software. please excuse any grammatical, word or spelling errors. Time with Patient: Greater than 30
[2024-08-09] MEDS: AMPICILLIN-SULBACTAM 3 GM in SODIUM CHLORIDE 0.9% 100 ML IVPB SCH (17:17)
[2024-08-09] MEDS: ONDANSETRON 4 MG/2 ML VIAL IVP PRN (19:33)
[2024-08-10] MEDS ORDERED: tiZANidine 4 MG TAB PO PRN (07:50)
[2024-08-10] MEDS ORDERED: [UNRECOGNIZED DRUG - OTHER] PO PRN (07:50)
--- NOTE | 2024-08-10 07:52 | P.PN ---
Subjective Progress Note Date: 08/10/24 patient is a 39-year-old lady with past medical history significant for asthma, diabetes mellitus, fibromyalgia who recently had panniculectomy along with incisional hernia repair done who presented the ER for abdominal pain. Patient was recently admitted to the hospital on 08/01 following her surgery when she was found to have wound dehiscence, patient was seen by surgery and ID at that time and was discharged on oral antibiotics. Patient stated over the last few weeks her pain has improved. Yesterday patient started having excruciating abdominal pain, there was also complained of nausea but no vomiting. Patient denies any fever or chills. Because of abdominal pain, patient came to the ER Initial lab work done in the ER showed WBC 7.9, hemoglobin 10.9, platelet count 491, sodium 137, potassium 4.8, BUN 17, creatinine 0.65, AST 34, ALT 17, lipase 188 UA negative for any infection CT abdomen pelvis done showed recent abdominoplasty, subcutaneous drain in the anterior subcutaneous fat which is surrounded by small collection approximately 7 mm in thickness Patient admitted to internal medicine service /30. Patient seen and examined. Continues to be afebrile. States abdominal pain has improved. Tolerating diet. REVIEW OF SYSTEMS: CONSTITUTIONAL: No fever, no malaise,. CARDIOVASCULAR: No chest pain, no palpitations, no syncope. PULMONARY: No shortness of breath, no cough, GASTROINTESTINAL: No diarrhea, no nausea, no vomiting, no abdominal pain. NEUROLOGICAL: No headaches, no weakness, PHYSICAL EXAMINATION: GENERAL: The patient is alert and oriented x3, not in any acute distress. Well developed, well nourished. HEENT: Pupils are round and equally reacting to light. EOMI. No scleral icterus. No conjunctival pallor. Normocephalic, atraumatic. No pharyngeal erythema. No thyromegaly. CARDIOVASCULAR: S1 and S2 present. No murmurs, rubs, or gallops. PULMONARY: Chest is clear to auscultation, no wheezing or crackles. ABDOMEN: Soft, no tenderness, no guarding, surgical incisions seen drain seen MUSCULOSKELETAL: No joint swelling or deformity. EXTREMITIES: No cyanosis, clubbing, or pedal edema. NEUROLOGICAL: Gross neurological examination did not reveal any focal deficits. SKIN: No rashes. Assessment and plan Abdominal pain Abdominal wall fluid collection Recent panniculectomy with incisional hernia repair History of hypothyroidism History of diabetes mellitus History of asthma Monitor vital signs Monitor CBC Monitor CMP Wound culture growing Finegoldia magna Continue pain management Continue wound care Continue IV Unasyn ID following Surgery following Labs and medication were reviewed.. Continue same treatment. Continue with symptomatic treatment. Resume home medication. Monitor labs and vitals. DVT and GI prophylaxis. Further recommendations as per clinical course of the patient Dictation was produced using [employer] dictation software. please excuse any grammatical, word or spelling errors. Objective - Vital Signs Vital signs: Vital Signs Temp 97.8 F 08/10/24 01:06 Pulse 74 08/10/24 01:06 Resp 18 08/10/24 01:06 BP 102/68 08/10/24 01:06 Pulse Ox 98 08/10/24 01:06 FiO2 Intake & Output 08/09/24 08/10/24 08/10/24 18:59 06:59 18:59 Intake Total 100 240 Output Total 40 50 Balance 60 190 Intake: Intake, IV Titration 100 Amount Ampicillin-Sulbactam 3 gm 100 In Sodium Chloride 0.9% 100 ml @ 200 mls/hr IVPB Q6H [facility] Rx#:[id number] Oral 240 Output: Drainage 40 50 Abdomen 40 50 Other: Voiding Method Toilet # Voids 3 - Labs CBC & Chem 7: 08/08/24 22:46 08/08/24 22:46
[2024-08-10] MEDS: NON FORMULARY DRUG (Dextroamphetamine/Amphetamine [Adderall] 20 MG Tablet) PO SCH (08:15)
[2024-08-10] MEDS: LORATADINE 10 MG TAB PO SCH (08:22)
[2024-08-10] MEDS: PREGABALIN 100 MG CAP PO SCH (08:22)
[2024-08-10] MEDS: PREGABALIN 25 MG CAP PO SCH (08:22)
[2024-08-10 09:50] LABS: Basophils # (A) 0.08 X 10*3/uL (0.00-0.10); Basophils % (A) 1.7 %; Eosinophils # (A) 0.36 X 10*3/uL (0.04-0.35); Eosinophils % (A) 7.7 %; HCT 31.4 % (37.2-46.3); Lymphocytes # (A) 2.26 X 10*3/uL (0.90-5.00); Lymphocytes % (A) 48.4 %; MCH 24.5 pg (27.0-32.0); MCHC 28.7 g/dL (32.0-37.0); MCV 85.6 FL (80.0-97.0); Mean Platelet Volume 9.4 FL (9.5-12.2); Monocytes # (A) 0.43 X 10*3/uL (0.20-1.00); Monocytes % (A) 9.2 %; NRBC Per 100 WBC 0 X 10*3/uL (0.00-0.01); Neutrophils # (A) 1.53 X 10*3/uL (1.80-7.70); Neutrophils % (A) 32.8 %; Platelet Count 373 X 10*3/uL (140-440); RBC 3.67 X 10*6/uL (4.10-5.20); RDW 15.4 % (11.5-14.5); WBC 4.67 X 10*3/uL (4.50-10.00)
--- NOTE | 2024-08-10 10:13 | P.PN ---
Subjective Progress Note Date: 08/10/24 Principal diagnosis: Abdominal pain Patient still having discomfort. Says its only slightly improved from yesterday. She is afebrile. Her hemoglobin did drop to 9.0. Likely di lutional. Objective - Vital Signs Vital signs: Vital Signs Temp 97.4 F L 08/10/24 08:21 Pulse 74 08/10/24 08:21 Resp 17 08/10/24 08:21 BP 115/70 08/10/24 08:21 Pulse Ox 95 08/10/24 08:21 FiO2 Intake & Output 08/09/24 08/10/24 08/10/24 18:59 06:59 18:59 Intake Total 100 240 Output Total 40 50 Balance 60 190 Intake: Intake, IV Titration 100 Amount Ampicillin-Sulbactam 3 gm 100 In Sodium Chloride 0.9% 100 ml @ 200 mls/hr IVPB Q6H [facility] Rx#:[id number] Oral 240 Output: Drainage 40 50 Abdomen 40 50 Other: Voiding Method Toilet # Voids 3 - Exam Abdomen: Soft, nondistended, mild diffuse lower abdominal tenderness, wound clean, ADAN serous - Labs CBC & Chem 7: 08/10/24 04:18 08/08/24 22:46 Labs: Abnormal Lab Results - Last 24 Hours (Table) 08/10/24 Range/Units 04:18 RBC 3.67 L (4.10-5.20) X 10*6/uL Hgb 9.0 L (12.0-15.0) g/dL Hct 31.4 L (37.2-46.3) % MCH 24.5 L (27.0-32.0) pg MCHC 28.7 L (32.0-37.0) g/dL RDW 15.4 H (11.5-14.5) % MPV 9.4 L (9.5-12.2) FL Neutrophils # 1.53 L (1.80-7.70) X 10*3/uL Eosinophils # 0.36 H (0.04-0.35) X 10*3/uL Assessment and Plan (1) Intractable abdominal pain Narrative/Plan: Patient still having discomfort. Will recheck CBC again tomorrow. Continue antibiotics per infectious disease. Continue analgesics. Current Visit: Yes Status: Acute Code(s): R10.9 - UNSPECIFIED ABDOMINAL PAIN SNOMED Code(s): 96911644
[2024-08-10 10:22] LABS: ALT 13 U/L (8-44); AST 16 U/L (13-35); Albumin 3.2 g/dL (3.8-4.9); Albumin/Globulin Ratio 1.78 Ratio (1.60-3.17); Alkaline Phosphatase 82 U/L (41-126); BUN/Creat Ratio 15.57 Ratio (12.00-20.00); Blood Urea Nitrogen 10.9 mg/dL (9.0-27.0); Calcium 8.3 mg/dL (8.7-10.3); Chloride 108 mmol/L (96-109); Globulin 1.8 g/dL (1.6-3.3); Glucose 82 mg/dL (70-110); Potassium 4.3 mmol/L (3.5-5.5); Sodium 141 mmol/L (135-145); Total Bilirubin <0.2 mg/dL (0.3-1.2)
[2024-08-10] MEDS: LEVOTHYROXINE 50 MCG TAB PO SCH (12:26)
[2024-08-10] MEDS: ERGOCALCIFEROL 1,250 MCG (50,000 IU) CAPSULE PO SCH (12:26)
--- NOTE | 2024-08-10 12:54 | P.PN ---
Subjective Progress Note Date: 08/10/24 Principal diagnosis: Reason follow-up is abdominal wound Patient is a 72-year-old female with a past medical history significant for coronary artery disease COPD CVA TIA reflux hypertension MS osteoarthritis and hypothyroidism presenting to the hospital for evaluation of weaknes with a CT shows evidence of mild fluid collection. On today's evaluation that is 08/10/2024, Patient is afebrile patient is currently on room air and denies having any shortness of breath, the patient denies any chest pain or cough, the patient denies any nausea vomiting still complaining of lower abdominal pain but no worsening. Patient white count 4.67, creatinine 0.7 Objective - Vital Signs Vital signs: Vital Signs Temp 97.4 F L 08/10/24 08:21 Pulse 74 08/10/24 08:21 Resp 17 08/10/24 08:21 BP 115/70 08/10/24 08:21 Pulse Ox 95 08/10/24 08:21 FiO2 Intake & Output 08/09/24 08/10/24 08/10/24 18:59 06:59 18:59 Intake Total 100 240 Output Total 40 50 40 Balance 60 190 -40 Intake: Intake, IV Titration 100 Amount Ampicillin-Sulbactam 3 gm 100 In Sodium Chloride 0.9% 100 ml @ 200 mls/hr IVPB Q6H [facility] Rx#:[id number] Oral 240 Output: Drainage 40 50 40 Abdomen 40 50 40 Other: Voiding Method Toilet # Voids 3 - Exam GENERAL DESCRIPTION: Middle-age female lying in bed in no distress RESPIRATORY SYSTEM: Unlabored breathing , decreased breath sounds at bases HEART: S1 S2 regular rate and rhythm , ABDOMEN: Soft , no tenderness EXTREMITIES: No edema feet - Labs CBC & Chem 7: 08/10/24 04:18 08/10/24 04:18 Labs: Abnormal Lab Results - Last 24 Hours (Table) 08/10/24 08/10/24 Range/Units 04:18 04:18 RBC 3.67 L (4.10-5.20) X 10*6/uL Hgb 9.0 L (12.0-15.0) g/dL Hct 31.4 L (37.2-46.3) % MCH 24.5 L (27.0-32.0) pg MCHC 28.7 L (32.0-37.0) g/dL RDW 15.4 H (11.5-14.5) % MPV 9.4 L (9.5-12.2) FL Neutrophils # 1.53 L (1.80-7.70) X 10*3/uL Eosinophils # 0.36 H (0.04-0.35) X 10*3/uL Calcium 8.3 L (8.7-10.3) mg/dL Total Bilirubin <0.2 L (0.3-1.2) mg/dL Total Protein 5.0 L (6.2-8.2) g/dL Albumin 3.2 L (3.8-4.9) g/dL Assessment and Plan (1) Allergy to cephalosporin Current Visit: Yes Status: Acute Code(s): Z88.1 - ALLERGY STATUS TO OTHER ANTIBIOTIC AGENTS SNOMED Code(s): 309665937 (2) Intractable abdominal pain Current Visit: Yes Status: Acute Code(s): R10.9 - UNSPECIFIED ABDOMINAL PAIN SNOMED Code(s): 66867995 (3) Open abdominal wall wound Current Visit: No Status: Acute Code(s): S31.109A - UNSP OPN WND ABD WALL, UNSP Q W/O PENET PERIT CAV, INIT SNOMED Code(s): 344680947 Plan: 1patient presented hospital tract abdominal pain along with nausea and vomiting in this patient who did have history of abdominal panniculectomy more than a month ago did have a small wound on the left lateral side nonhealing and outpatient culture grew positive for Finegoldia magna abdominal CT showed small amount of fluid collection clinically not behaving as a sepsis in the patient with no fever or elevated white count however keeping by her symptoms nonhealing of the wound healed, it may be worthwhile to try antibiotic and see response. 2patient with a Keflex allergy with a rash no history of anaphylaxis 3local wound care with a dry Aquacel packing of the wound daily. 4we will continue with the Unasyn while inpatient transition to Augmentin on discharge Dictation was produced using [employer] dictation software. please excuse any grammatical, word or spelling errors. Time with Patient: Less than 30
[2024-08-10] MEDS: buPROPion XL 300 MG TAB.ER.24H PO SCH (20:59)
[2024-08-10] MEDS: AMITRIPTYLINE HCL 50 MG TAB PO SCH (20:59)
[2024-08-10] MEDS: hydrOXYzine HCL 25 MG TAB PO PRN (21:26)
[2024-08-11 10:14] LABS: Basophils # (A) 0.08 X 10*3/uL (0.00-0.10); Basophils % (A) 1.6 %; Eosinophils # (A) 0.34 X 10*3/uL (0.04-0.35); Eosinophils % (A) 6.6 %; HCT 32.1 % (37.2-46.3); HGB 9.4 g/dL (12.0-15.0); Lymphocytes # (A) 2.37 X 10*3/uL (0.90-5.00); Lymphocytes % (A) 45.9 %; MCH 24.9 pg (27.0-32.0); MCHC 29.3 g/dL (32.0-37.0); MCV 85.1 FL (80.0-97.0); Mean Platelet Volume 9.6 FL (9.5-12.2); Monocytes # (A) 0.41 X 10*3/uL (0.20-1.00); Monocytes % (A) 7.9 %; NRBC Per 100 WBC 0 X 10*3/uL (0.00-0.01); Neutrophils # (A) 1.95 X 10*3/uL (1.80-7.70); Neutrophils % (A) 37.8 %; Platelet Count 398 X 10*3/uL (140-440); RBC 3.77 X 10*6/uL (4.10-5.20); RDW 15.5 % (11.5-14.5); WBC 5.16 X 10*3/uL (4.50-10.00)
[2024-08-11] MEDS: HYDROcodone/APAP 10-325MG 1 EACH TAB PO PRN (10:44)
--- NOTE | 2024-08-11 11:06 | P.PN ---
Subjective Progress Note Date: 08/11/24 SURGICAL PROGRESS NOTE CHIEF COMPLAINT: Abdominal pain HISTORY OF PRESENT ILLNESS: Patient continues to report abdominal pain. She does report having bowel movements. She is tolerating diet. She is afebrile. White count remains normal at 5.16. Hgb up from 9.0-9.4. ADAN drain with 50 mL serosanguineous output. She is on antibiotics. She has been requiring IV pain medication. Patient is agreeable for oral pain medication. PHYSICAL EXAM: VITAL SIGNS: Reviewed. GENERAL: Well-developed in no acute distress. ABDOMEN: Soft. Nondistended. Tenderness across the lower mid abdomen. Wound clean dry and intact. ADAN drain serosanguineous. NEUROLOGIC: Alert and oriented. Cranial nerves II through XII grossly intact. ASSESSMENT: 1. Intractable abdominal pain 2. Recent panniculectomy with abdominal wound at incision PLAN: -Continue antibiotics per ID service -Parlier added for oral pain medication. Patient does take Parlier 10/325 at home -Encourage patient to increase activity level Physician Manager Market note has been reviewed by physician. Signing provider agrees with the documented findings, assessment, and plan of care. Objective - Vital Signs Vital signs: Vital Signs Temp 97.1 F L 08/11/24 07:09 Pulse 78 08/11/24 07:09 Resp 18 08/11/24 07:09 BP 97/63 08/11/24 07:09 Pulse Ox 99 08/11/24 07:09 FiO2 Intake & Output 08/10/24 08/11/24 08/11/24 18:59 06:59 18:59 Intake Total 200 Output Total 40 30 50 Balance 160 -30 -50 Intake: Intake, IV Titration 200 Amount Ampicillin-Sulbactam 3 gm 200 In Sodium Chloride 0.9% 100 ml @ 200 mls/hr IVPB Q6H [facility] Rx#:[id number] Output: Drainage 40 30 50 Abdomen 40 30 50 Other: Voiding Method Toilet # Voids 2 - Labs CBC & Chem 7: 08/11/24 03:26 08/10/24 04:18 Labs: Abnormal Lab Results - Last 24 Hours (Table) 08/11/24 Range/Units 03: RBC 3.77 L (4.10-5.20) X 10*6/uL Hgb 9.4 L (12.0-15.0) g/dL Hct 32.1 L (37.2-46.3) % MCH 24.9 L (27.0-32.0) pg MCHC 29.3 L (32.0-37.0) g/dL RDW 15.5 H (11.5-14.5) %
--- NOTE | 2024-08-11 14:28 | P.PN ---
Subjective Progress Note Date: 08/11/24 Interval History: patient is a 39-year-old lady with past medical history significant for asthma, diabetes mellitus, fibromyalgia who recently had panniculectomy along with incisional hernia repair done who presented the ER for abdominal pain. Patient was recently admitted to the hospital on 08/01 following her surgery when she was found to have wound dehiscence, patient was seen by surgery and ID at that time and was discharged on oral antibiotics. Patient stated over the last few weeks her pain has improved. Yesterday patient started having excruciating abdominal pain, there was also complained of nausea but no vomiting. Patient denies any fever or chills. Because of abdominal pain, patient came to the ER Initial lab work done in the ER showed WBC 7.9, hemoglobin 10.9, platelet count 491, sodium 137, potassium 4.8, BUN 17, creatinine 0.65, AST 34, ALT 17, lipase 188 UA negative for any infection CT abdomen pelvis done showed recent abdominoplasty, subcutaneous drain in the anterior subcutaneous fat which is surrounded by small collection approximately 7 mm in thickness Patient admitted to internal medicine service 08/11--patient was seen and examined today. Continue complain of abdominal pain. General surgery infectious following, currently on Unasyn. Afebrile, heart rate 90, respiratory rate 18, blood pressure 107/72, saturating 96% on room air. WBCs 5.1, hemoglobin 9.4, platelet 398. Assessment and plan: Open abdominal wall wound: Abdominal wall fluid collection Recent panniculectomy with incisional hernia repair Presented with intractable abdominal pain along with nausea and vomiting. History of recent abdominal panniculectomy more than a month ago, small wound on the left lateral side nonhealing, outpatient culture grew phenyl Tasia magna. CT abdomen showed small amount of fluid collection. General surgery consultedfollowing Continue wound care ID consultedcontinue Unasyn, anticipate Augmentin on discharge. Pain control History of hypothyroidism History of diabetes mellitus History of asthma Continue home meds. DVT prophylaxis: Subcutaneous heparin Monitor vital signs and labs Labs and medication were reviewed. Continue same treatment. Further recommendations as per clinical course of the patient PHYSICAL EXAMINATION: GENERAL: The patient is A&O x3, NAD HEENT: EOMI, Sclerae anicteric, Moist Mucous membranes Neck: Supple, Non tender, No JVD PULMONARY: Equal breath souds B/L, No wheezing, No crackles. CARDIOVASCULAR: S1, S2 present. No murmurs, rubs, or gallops. ABDOMEN: Mild tenderness, open wound left lateral side. Soft, nondistended, normoactive bowel sounds. No guarding or rebound tenderness. MUSCULOSKELETAL: No edema, No cyanosis. No clubbing. Normal ROM. Intact peripher al pulses. NEUROLOGICAL: CN 2-12 grossly intact. No FND Skin: No Rash REVIEW OF SYSTEMS: CONSTITUTIONAL: No fever or chills. CARDIOVASCULAR: No chest pain, palpitations or syncope. PULMONARY: No shortness of breath, no cough, sore throat. GASTROINTESTINAL: No nausea, vomiting, diarrhea, complains of abdominal pain : No Dysuria, urgency, frequency. Extremities: No edema. NEUROLOGICAL: No headaches, no weakness, or numbness Dictation was produced using [employer] dictation software. please excuse any grammatical, word or spelling errors. Objective - Vital Signs Vital signs: Vital Signs Temp 98.1 F 08/11/24 13:56 Pulse 90 08/11/24 13:56 Resp 18 08/11/24 13:56 BP 107/72 08/11/24 13:56 Pulse Ox 96 08/11/24 13:56 FiO2 Intake & Output 08/10/24 08/11/24 08/11/24 18:59 06:59 18:59 Intake Total 200 Output Total 40 30 50 Balance 160 -30 -50 Intake: Intake, IV Titration 200 Amount Ampicillin-Sulbactam 3 gm 200 In Sodium Chloride 0.9% 100 ml @ 200 mls/hr IVPB Q6H [facility] Rx#:[id number] Output: Drainage 40 30 50 Abdomen 40 30 50 Other: Voiding Method Toilet # Voids 2 - Labs CBC & Chem 7: 08/11/24 03:26 08/10/24 04:18 Labs: Abnormal Lab Results - Last 24 Hours (Table) 08/11/24 Range/Units 03:26 RBC 3.77 L (4.10-5.20) X 10*6/uL Hgb 9.4 L (12.0-15.0) g/dL Hct 32.1 L (37.2-46.3) % MCH 24.9 L (27.0-32.0) pg MCHC 29.3 L (32.0-37.0) g/dL RDW 15.5 H (11.5-14.5) %
[2024-08-11] MEDS: HEPARIN SODIUM,PORCINE 5,000 UNIT/ML 1 ML VIAL SQ SCH (20:52)
--- NOTE | 2024-08-11 23:06 | P.PN ---
Subjective Progress Note Date: 08/11/24 Principal diagnosis: Reason follow-up is abdominal wound Patient is a 39-year-old female with a past medical history significant for Asthma, Diabetes Mellitus, Fibromyalgia, GERD/Reflux, Sleep Apnea/CPAP/BIPAP, Thyroid Disorder also history of abdominal panniculectomy did have a left lateral abdominal incision nonhealing wound apparently that has been cultured by her primary care physician and did grew Finegoldia magna, present to hospital with abdominal pain CT did shows subcutaneous drain and fluid. On today's evaluation that is 08/11/2024, patient has been afebrile, patient is breathing comfortably and is currently on room air, patient denies having any significant cough no chest pain, patient denies nausea vomiting or diarrhea still complaining of abdominal pain some control of the pain medication. Patient white count is 5.16 creatinine 0.7 Objective - Vital Signs Vital signs: Vital Signs Temp 97.1 F L 08/11/24 07:09 Pulse 78 08/11/24 07:09 Resp 18 08/11/24 07:09 BP 97/63 08/11/24 07:09 Pulse Ox 99 08/11/24 07:09 FiO2 Intake & Output 08/10/24 08/11/24 08/11/24 18:59 06:59 18:59 Intake Total 200 Output Total 40 30 50 Balance 160 -30 -50 Intake: Intake, IV Titration 200 Amount Ampicillin-Sulbactam 3 gm 200 In Sodium Chloride 0.9% 100 ml @ 200 mls/hr IVPB Q6H [facility] Rx#:[id number] Output: Drainage 40 30 50 Abdomen 40 30 50 Other: Voiding Method Toilet # Voids 2 - Exam GENERAL DESCRIPTION: Middle-age female lying in bed in no distress RESPIRATORY SYSTEM: Unlabored breathing , decreased breath sounds at bases HEART: S1 S2 regular rate and rhythm , ABDOMEN: Soft , no tenderness EXTREMITIES: No edema feet - Labs CBC & Chem 7: 08/11/24 03:26 08/10/24 04:18 Labs: Abnormal Lab Results - Last 24 Hours (Table) 08/11/24 Range/Units 03: RBC 3.77 L (4.10-5.20) X 10*6/uL Hgb 9.4 L (12.0-15.0) g/dL Hct 32.1 L (37.2-46.3) % MCH 24.9 L (27.0-32.0) pg MCHC 29.3 L (32.0-37.0) g/dL RDW 15.5 H (11.5-14.5) % Assessment and Plan (1) Allergy to cephalosporin Current Visit: Yes Status: Acute Code(s): Z88.1 - ALLERGY STATUS TO OTHER ANTIBIOTIC AGENTS SNOMED Code(s): 659542487 (2) Intractable abdominal pain Current Visit: Yes Status: Acute Code(s): R10.9 - UNSPECIFIED ABDOMINAL PAIN SNOMED Code(s): 76076189 (3) Open abdominal wall wound Current Visit: No Status: Acute Code(s): S31.109A - UNSP OPN WND ABD WALL, UNSP Q W/O PENET PERIT CAV, INIT SNOMED Code(s): 134714061 Plan: 1patient presented hospital tract abdominal pain along with nausea and vomiting in this patient who did have history of abdominal panniculectomy more than a month ago did have a small wound on the left lateral side nonhealing and outpatient culture grew positive for Finegoldia magna abdominal CT showed small amount of fluid collection clinically not behaving as a sepsis in the patient with no fever or elevated white count however keeping by her symptoms nonhealing of the wound healed, it may be worthwhile to try antibiotic and see response. 2patient with a Keflex allergy with a rash no history of anaphylaxis 3local wound care to continue with a dry Aquacel packing of the wound daily. 4patient will be treated with the Unasyn while inpatient transition to Augmentin on discharge and monitor clinical course closely Dictation was produced using [employer] dictation software. please excuse any grammatical, word or spelling errors. Time with Patient: Less than 30
--- NOTE | 2024-08-12 13:01 | P.PN ---
Subjective Progress Note Date: 08/12/24 SURGICAL PROGRESS NOTE CHIEF COMPLAINT: Abdominal pain HISTORY OF PRESENT ILLNESS: Patient continues to report abdominal pain. She did have some nausea. Denies any vomiting. Did have a bowel movement yesterday. ADAN drain 35 mL serosanguineous output. Patient reports that the ADAN drain was filling with a air about 5 times yesterday. This has now stopped. Afebrile. WBC 5.16 as of yesterday PHYSICAL EXAM: VITAL SIGNS: Reviewed. GENERAL: Well-developed in no acute distress. ABDOMEN: Soft. Nondistended. Tenderness across the lower mid abdomen. Wound clean dry and intact. ADAN drain serosanguineous. NEUROLOGIC: Alert and oriented. Cranial nerves II through XII grossly intact. ASSESSMENT: 1. Intractable abdominal pain 2. Recent panniculectomy with abdominal wound at incision PLAN: -Continue antibiotics per ID service -Continue pain management -Encouraged patient to ambulate -Continue local wound care Physician Ceramic Plater note has been reviewed by physician. Signing provider agrees with the documented findings, assessment, and plan of care. I have personally seen and examined the patient, reviewed the CANDLE WRAPPING MACHINE OPERATOR /PAs history, exam and MDM and agree with the assessment and plan as written. Based on total visit time, I have performed more than 50% of the visit. As above: Patient says her pain is about the same. She is a bit more active. She unfortunately has not even walked in the hallways yet though. Continue increasing activity. Continue antibiotics. Objective - Vital Signs Vital signs: Vital Signs Temp 97.8 F 08/12/24 07:01 Pulse 76 08/12/24 07:01 Resp 17 08/12/24 07:01 BP 92/59 08/12/24 07:01 Pulse Ox 96 08/12/24 07:01 FiO2 Intake & Output 08/11/24 08/12/24 08/12/24 18:59 06:59 18:59 Intake Total 740 Output Total 70 35 Balance 670 -35 Intake: Intake, IV Titration 100 Amount Ampicillin-Sulbactam 3 gm 100 In Sodium Chloride 0.9% 100 ml @ 200 mls/hr IVPB Q6H [facility] Rx#:[id number] Oral 640 Output: Drainage 70 35 Abdomen 70 35 Other: Voiding Method Toilet # Voids 3 3 # Bowel Movements 1 - Labs CBC & Chem 7: 08/11/24 03:26 08/10/24 04:18
--- NOTE | 2024-08-12 15:08 | P.PN ---
Subjective Interval History: patient is a 39-year-old lady with past medical history significant for asthma, diabetes mellitus, fibromyalgia who recently had panniculectomy along with incisional hernia repair done who presented the ER for abdominal pain. Patient was recently admitted to the hospital on 08/01 following her surgery when she was found to have wound dehiscence, patient was seen by surgery and ID at that time and was discharged on oral antibiotics. Patient stated over the last few weeks her pain has improved. Yesterday patient started having excruciating abdominal pain, there was also complained of nausea but no vomiting. Patient denies any fever or chills. Because of abdominal pain, patient came to the ER Initial lab work done in the ER showed WBC 7.9, hemoglobin 10.9, platelet count 491, sodium 137, potassium 4.8, BUN 17, creatinine 0.65, AST 34, ALT 17, lipase 188 UA negative for any infection CT abdomen pelvis done showed recent abdominoplasty, subcutaneous drain in the anterior subcutaneous fat which is surrounded by small collection approximately 7 mm in thickness Patient admitted to internal medicine service 08/11--patient was seen and examined today. Continue complain of abdominal pain. General surgery infectious following, currently on Unasyn. Afebrile, heart rate 90, respiratory rate 18, blood pressure 107/72, saturating 96% on room air. WBCs 5.1, hemoglobin 9.4, platelet 398. 08/12--patient was seen and examined today. Continue complain of abdominal pain. Afebrile, heart rate 88, respiratory rate 17, blood pressure 101/61, saturating 98% on room air. WBCs 5.1, hemoglobin 9.4, platelet 398. General surgery following. Infectious disease consulted and following. Currently on Unasyn. Continue wound care. Assessment and plan: Open abdominal wall wound: Abdominal wall fluid collection Recent panniculectomy with incisional hernia repair Presented with intractable abdominal pain along with nausea and vomiting. History of recent abdominal panniculectomy more than a month ago, small wound on the left lateral side nonhealing, outpatient culture grew phenyl Tasia magna. CT abdomen showed small amount of fluid collection. General surgery consultedfollowing Continue wound care ID consultedcontinue Unasyn, anticipate Augmentin on discharge. Pain control History of hypothyroidism History of diabetes mellitus History of asthma Continue home meds. DVT prophylaxis: Subcutaneous heparin Monitor vital signs and labs Labs and medication were reviewed. Continue same treatment. Further recommendations as per clinical course of the patient PHYSICAL EXAMINATION: GENERAL: The patient is A&O x3, NAD HEENT: EOMI, Sclerae anicteric, Moist Mucous membranes Neck: Supple, Non tender, No JVD PULMONARY: Equal breath souds B/L, No wheezing, No crackles. CARDIOVASCULAR: S1, S2 present. No murmurs, rubs, or gallops. ABDOMEN: Mild tenderness, open wound left lateral side. Soft, nondistended, normoactive bowel sounds. No guarding or rebound tenderness. MUSCULOSKELETAL: No edema, No cyanosis. No clubbing. Normal ROM. Intact peripheral pulses. NEUROLOGICAL: CN 2-12 grossly intact. No FND Skin: No Rash REVIEW OF SYSTEMS: CONSTITUTIONAL: No fever or chills. CARDIOVASCULAR: No chest pain, palpitations or syncope. PULMONARY: No shortness of breath, no cough, sore throat. GASTROINTESTINAL: No nausea, vomiting, diarrhea, complains of abdominal pain : No Dysuria, urgency, frequency. Extremities: No edema. NEUROLOGICAL: No headaches, no weakness, or numbness Dictation was produced using [employer] dictation software. please excuse any grammatical, word or spelling errors. Objective - Vital Signs Vital signs: Vital Signs Temp 98.2 F 08/12/24 14:36 Pulse 88 08/12/24 14:36 Resp 17 08/12/24 14:36 BP 101/61 08/12/24 14:36 Pulse Ox 98 08/12/24 14:36 FiO2 Intake & Output 08/11/24 08/12/24 08/12/24 18:59 06:59 18:59 Intake Total 740 Output Total 70 35 50 Balance 670 -35 -50 Intake: Intake, IV Titration 100 Amount Ampicillin-Sulbactam 3 gm 100 In Sodium Chloride 0.9% 100 ml @ 200 mls/hr IVPB Q6H [facility] Rx#:[id number] Oral 640 Output: Drainage 70 35 50 Abdomen 70 35 50 Other: Voiding Method Toilet # Voids 3 3 # Bowel Movements 1 - Labs CBC & Chem 7: 08/11/24 03:26 08/10/24 04:18
--- NOTE | 2024-08-12 15:24 | P.PN ---
Subjective Progress Note Date: 08/12/24 Principal diagnosis: Reason follow-up is abdominal wound Patient is a 39-year-old female with a past medical history significant for Asthma, Diabetes Mellitus, Fibromyalgia, GERD/Reflux, Sleep Apnea/CPAP/BIPAP, Thyroid Disorder also history of abdominal panniculectomy did have a left lateral abdominal incision nonhealing wound apparently that has been cultured by her primary care physician and did grew Finegoldia magna, present to hospital with abdominal pain CT did shows subcutaneous drain and fluid. On today's evaluation that is 08/12/2024, Patient is afebrile this morning patient denies having any chest pain shortness of breath or cough, the patient is currently on room air, patient still complaining of lower abdominal pain but denies having any worsening no nausea vomiting or diarrhea. No new lab has been obtained today Objective - Vital Signs Vital signs: Vital Signs Temp 98.2 F 08/12/24 14:36 Pulse 88 08/12/24 14:36 Resp 17 08/12/24 14:36 BP 101/61 08/12/24 14:36 Pulse Ox 98 08/12/24 14:36 FiO2 Intake & Output 08/11/24 08/12/24 08/12/24 18:59 06:59 18:59 Intake Total 740 Output Total 70 35 50 Balance 670 -35 -50 Intake: Intake, IV Titration 100 Amount Ampicillin-Sulbactam 3 gm 100 In Sodium Chloride 0.9% 100 ml @ 200 mls/hr IVPB Q6H [facility] Rx#:[id number] Oral 640 Output: Drainage 70 35 50 Abdomen 70 35 50 Other: Voiding Method Toilet # Voids 3 3 # Bowel Movements 1 - Exam GENERAL DESCRIPTION: Middle-age female lying in bed in no distress RESPIRATORY SYSTEM: Unlabored breathing , decreased breath sounds at bases HEART: S1 S2 regular rate and rhythm , ABDOMEN: Soft , no tenderness EXTREMITIES: No edema feet - Labs CBC & Chem 7: 08/11/24 03:26 08/10/24 04:18 Assessment and Plan (1) Allergy to cephalosporin Current Visit: Yes Status: Acute Code(s): Z88.1 - ALLERGY STATUS TO OTHER ANTIBIOTIC AGENTS SNOMED Code(s): 704124881 (2) Intractable abdominal pain Current Visit: Yes Status: Acute Code(s): R10.9 - UNSPECIFIED ABDOMINAL PAIN SNOMED Code(s): 93947339 (3) Open abdominal wall wound Current Visit: No Status: Acute Code(s): S31.109A - UNSP OPN WND ABD WALL, UNSP Q W/O PENET PERIT CAV, INIT SNOMED Code(s): 900599330 Plan: 1patient presented hospital tract abdominal pain along with nausea and vomiting in this patient who did have history of abdominal panniculectomy more than a month ago did have a small wound on the left lateral side nonhealing and outpatient culture grew positive for Finegoldia magna abdominal CT showed small amount of fluid collection clinically not behaving as a sepsis in the patient with no fever or elevated white count however keeping by her symptoms nonhealing of the wound healed, it may be worthwhile to try antibiotic and see response. 2patient with a Keflex allergy with a rash no history of anaphylaxis 3local wound care to continue with a dry Aquacel packing of the wound daily. 4patient seems to have tolerated Unasyn without any problem to continue while inpatient transition to oral Augmentin on discharge Dictation was produced using [employer] dictation software. please excuse any grammatical, word or spelling errors. Time with Patient: Less than 30
[2024-08-13 07:47] VITALS: BP 112/71; PULSE 79; RESP 18; TEMP 98
--- NOTE | 2024-08-13 12:48 | P.DS ---
Providers Date of admission: 08/09/24 02:17 Expected date of discharge: 08/13/24 Attending physician: Jesus Brown Consults: 08/09/24 02:16 Consult Physician Routine Consulting Provider: Oswaldo Sarkar Consult Reason/Comments: medical management Do you want consulting provider notified?: Yes 08/09/24 10:14 Consult Physician Routine Consulting Provider: Sade Maloney Consult Reason/Comments: Abdominal wound Do you want consulting provider notified?: Yes Primary care physician: Alfred Varela Hospital Course: Discharge diagnoses: Open abdominal wall wound: Abdominal wall fluid collection Recent panniculectomy with incisional hernia repair Presented with intractable abdominal pain along with nausea and vomiting. History of recent abdominal panniculectomy more than a month ago, small wound on the left lateral side nonhealing, outpatient culture grew phenyl Tasia magna. CT abdomen showed small amount of fluid collection. General surgery consultedoutpatient follow-up with general surgery within 1 week. Continue wound care ID consultedreceived Unasyn during hospitalization, continued on Augmentin for 10 days at discharge per infectious disease recommendation. History of hypothyroidism History of diabetes mellitus History of asthma Continue home meds. Hospital course: patient is a 39-year-old lady with past medical history significant for asthma, diabetes mellitus, fibromyalgia who recently had panniculectomy along with incisional hernia repair done who presented the ER for abdominal pain. Patient was recently admitted to the hospital on 08/01 following her surgery when she was found to have wound dehiscence, patient was seen by surgery and ID at that time and was discharged on oral antibiotics. Patient stated over the last few weeks her pain has improved. Yesterday patient started having excruciating abdominal pain, there was also complained of nausea but no vomiting. Patient denies any fever or chills. Because of abdominal pain, patient came to the ER Initial lab work done in the ER showed WBC 7.9, hemoglobin 10.9, platelet count 491, sodium 137, potassium 4.8, BUN 17, creatinine 0.65, AST 34, ALT 17, lipase 188 UA negative for any infection CT abdomen pelvis done showed recent abdominoplasty, subcutaneous drain in the anterior subcutaneous fat which is surrounded by small collection approximately 7 mm in thickness Patient was admitted hospital for further evaluation and management. Patient was started on IV antibiotics Unasyn. General surgery infectious disease consulted. Patient's vitals and labs were monitored, remained stable. Abdominal pain gradually was improving. Also consulted wound care. Infectious disease recommended to continue Augmentin for 10 days at discharge and outpatient follow-up with infectious disease and general surgery. Follow-up with PCP in 1 week Follow-up with infectious disease and general surgery as outpatient. PHYSICAL EXAMINATION: GENERAL: The patient is A&O x3, NAD HEENT: EOMI, Sclerae anicteric, Moist Mucous membranes Neck: Supple, Non tender, No JVD PULMONARY: Equal breath souds B/L, No wheezing, No crackles. CARDIOVASCULAR: S1, S2 present. No murmurs, rubs, or gallops. ABDOMEN: Mild tenderness, open wound left lateral side. Soft, nondistended, normoactive bowel sounds. No guarding or rebound tenderness. MUSCULOSKELETAL: No edema, No cyanosis. No clubbing. Normal ROM. Intact peripheral pulses. NEUROLOGICAL: CN 2-12 grossly intact. No FND Skin: No Rash Dictation was produced using [employer] dictation software. please excuse any grammatical, word or spelling errors. Patient Condition at Discharge: Stable Plan - Discharge Summary Discharge Rx Participant: No New Discharge Prescriptions: New Amoxic-Pot Clav 875-125Mg [Augmentin 875-125] 1 tab PO Q12HR 10 Days #20 tab Continue Levothyroxine Sodium [Synthroid] 50 mcg PO DAILY Cetirizine HCl [Zyrtec] 10 mg PO DAILY Ergocalciferol (Vitamin D2) [Drisdol (50,000 Iu)] 1,250 mcg PO GARCIA Lasmiditan Succinate [Reyvow] 50 mg PO DAILY PRN PRN Reason: Migraine Headache Ketorolac [Toradol] 10 mg PO Q6HR PRN PRN Reason: migraines HYDROcodone/APAP 10-325MG [Pine 10-325] 1 tab PO BID PRN PRN Reason: Pain tiZANidine [Zanaflex] 2 mg PO HS PRN PRN Reason: Muscle Spasm hydrOXYzine HCL [Atarax] 100 mg PO HS PRN PRN Reason: Insomnia Pregabalin [Lyrica] 225 mg PO BID Moxifloxacin HCl [Avelox] 400 mg PO DAILY Nystatin 100,000 Unit/gm Powd [Mycostatin Powder] 1 applic TOPICAL BID PRN PRN Reason: Rash Fluconazole 200 mg PO DAILY PRN PRN Reason: yeast infection Metoclopramide [Reglan] 10 mg PO DAILY PRN PRN Reason: Nausea Acetaminophen Tab [Tylenol] 650 mg PO Q6H PRN PRN Reason: Pain Or Fever > 100.5 Dextroamphetamine/Amphetamine [Adderall] 40 mg PO DAILY Amitriptyline HCl [Elavil] 100 mg PO HS buPROPion XL [Wellbutrin XL] 300 mg PO HS Discharge Medication List Levothyroxine Sodium [Synthroid] 50 mcg PO DAILY 05/05/14 [History] Cetirizine HCl [Zyrtec] 10 mg PO DAILY 08/30/19 [History] Nystatin 100,000 Unit/gm Powd [Mycostatin Powder] 1 applic TOPICAL BID PRN 12/12/21 [History] Ergocalciferol (Vitamin D2) [Drisdol (50,000 Iu)] 1,250 mcg PO GARCIA 05/19/22 [History] Fluconazole 200 mg PO DAILY PRN 05/19/22 [History] Acetaminophen Tab [Tylenol] 650 mg PO Q6H PRN 10/02/22 [History] Lasmiditan Succinate [Reyvow] 50 mg PO DAILY PRN 10/02/22 [History] Metoclopramide [Reglan] 10 mg PO DAILY PRN 10/02/22 [History] Ketorolac [Toradol] 10 mg PO Q6HR PRN 10/30/22 [History] HYDROcodone/APAP 10-325MG [Pine 10-325] 1 tab PO BID PRN 11/19/23 [History] hydrOXYzine HCL [Atarax] 100 mg PO HS PRN 04/28/24 [History] tiZANidine [Zanaflex] 2 mg PO HS PRN 04/28/24 [History] Dextroamphetamine/Amphetamine [Adderall] 40 mg PO DAILY 06/27/24 [History] Amitriptyline HCl [Elavil] 100 mg PO HS 06/30/24 [History] Pregabalin [Lyrica] 225 mg PO BID 07/31/24 [History] buPROPion XL [Wellbutrin XL] 300 mg PO HS 07/31/24 [History] Moxifloxacin HCl [Avelox] 400 mg PO DAILY 08/09/24 [History] Amoxic-Pot Clav 875-125Mg [Augmentin 875-125] 1 tab PO Q12HR 10 Days #20 tab 08/13/24 [Rx] Follow up Appointment(s)/Referral(s): Alfred Varela [Primary Care Provider] - 1-2 days Sade Maloney MD [STAFF PHYSICIAN] - 1 Week Brayan Meadows MD [STAFF PHYSICIAN] - 1 Week Discharge Disposition: HOME SELF-CARE
--- NOTE | 2024-08-13 12:55 | P.PN ---
Subjective Progress Note Date: 08/13/24 Principal diagnosis: Reason follow-up is abdominal wound Patient is a 39-year-old female with a past medical history significant for Asthma, Diabetes Mellitus, Fibromyalgia, GERD/Reflux, Sleep Apnea/CPAP/BIPAP, Thyroid Disorder also history of abdominal panniculectomy did have a left lateral abdominal incision nonhealing wound apparently that has been cultured by her primary care physician and did grew Finegoldia magna, present to hospital with abdominal pain CT did shows subcutaneous drain and fluid. On today's evaluation that is 08/13/2024,the patient denies any fever or any chills, patient is breathing comfortably on room air, the patient denies chest pain shortness of breath and no significant cough, patient denies nausea vomiting or diarrhea no abdominal pain slightly decreased in intensity mention feeling better wants to go home. Patient did not have a lab draw today Objective - Vital Signs Vital signs: Vital Signs Temp 98.0 F 08/13/24 06:50 Pulse 79 08/13/24 06:50 Resp 18 08/13/24 06:50 BP 112/71 08/13/24 06:50 Pulse Ox 92 L 08/13/24 06:50 FiO2 Intake & Output 08/12/24 08/13/24 08/13/24 18:59 06:59 18:59 Intake Total 500 Output Total 75 25 Balance -75 475 Intake: Oral 500 Output: Drainage 75 25 Abdomen 75 25 Other: Voiding Method Toilet Toilet # Voids 1 1 - Exam GENERAL DESCRIPTION: Middle-age female lying in bed in no distress RESPIRATORY SYSTEM: Unlabored breathing , decreased breath sounds at bases HEART: S1 S2 regular rate and rhythm , ABDOMEN: Soft , no tenderness EXTREMITIES: No edema feet - Labs CBC & Chem 7: 08/11/24 03:26 08/10/24 04:18 Assessment and Plan (1) Allergy to cephalosporin Current Visit: Yes Status: Acute Code(s): Z88.1 - ALLERGY STATUS TO OTHER ANTIBIOTIC AGENTS SNOMED Code(s): 930781495 (2) Intractable abdominal pain Current Visit: Yes Status: Acute Code(s): R10.9 - UNSPECIFIED ABDOMINAL PAIN SNOMED Code(s): 69877240 (3) Open abdominal wall wound Current Visit: No Status: Acute Code(s): S31.109A - UNSP OPN WND ABD WALL, UNSP Q W/O PENET PERIT CAV, INIT SNOMED Code(s): 121489576 Plan: 1patient presented hospital tract abdominal pain along with nausea and vomiting in this patient who did have history of abdominal panniculectomy more than a month ago did have a small wound on the left lateral side nonhealing and outpatient culture grew positive for Finegoldia magna abdominal CT showed small amount of fluid collection clinically not behaving as a sepsis in the patient with no fever or elevated white count however keeping by her symptoms nonhealing of the wound healed, it may be worthwhile to try antibiotic and see response. 2patient with a Keflex allergy with a rash no history of anaphylaxis 3local wound care to continue with a dry Aquacel packing of the wound daily. 4patient feeling better wants to go home recommended 10-day course of oral Augmentin on discharge this was discussed with the medical as well as surgical team and a close outpatient follow-up Dictation was produced using [employer] dictation software. please excuse any g rammatical, word or spelling errors. Time with Patient: Less than 30
--- NOTE | 2024-08-13 13:01 | P.PN ---
Subjective Progress Note Date: 08/13/24 SURGICAL PROGRESS NOTE CHIEF COMPLAINT: Abdominal pain HISTORY OF PRESENT ILLNESS: Patient reports she feels ready to be discharged today. Her pain is tolerable. She will be contacting her pain management team for pain medication adjustments outpatient. ADAN drain 25 mL serosanguineous output. She is tolerating diet. She has been up and ambulating. She is having bowel movements. She is afebrile. PHYSICAL EXAM: VITAL SIGNS: Reviewed. GENERAL: Well-developed in no acute distress. ABDOMEN: Soft. Nondistended. Tenderness across the lower mid abdomen. Wound clean dry and intact. ADAN drain serosanguineous. NEUROLOGIC: Alert and oriented. Cranial nerves II through XII grossly intact. ASSESSMENT: 1. Intractable abdominal pain 2. Recent panniculectomy with abdominal wound at incision PLAN: -Discharge antibiotics per ID -Patient can be discharged -Patient to follow-up with her pain management team outpatient -Patient to follow-up in office with Dr. Meadows -Continue local wound care Physician Pulp Refiner Operator note has been reviewed by physician. Signing provider agrees with the documented findings, assessment, and plan of care. Objective - Vital Signs Vital signs: Vital Signs Temp 98.0 F 08/13/24 06:50 Pulse 79 08/13/24 06:50 Resp 18 08/13/24 06:50 BP 112/71 08/13/24 06:50 Pulse Ox 92 L 08/13/24 06:50 FiO2 Intake & Output 08/12/24 08/13/24 08/13/24 18:59 06:59 18:59 Intake Total 500 Output Total 75 25 Balance -75 475 Intake: Oral 500 Output: Drainage 75 25 Abdomen 75 25 Other: Voiding Method Toilet Toilet # Voids 1 1 - Labs CBC & Chem 7: 08/11/24 03:26 08/10/24 04:18
== END 2024-08-13 14:23 | disposition home or self-care (01) | DRG 863 ==
LOC: EC 21:11 → 4SSUR 08-09 02:17 → OBSVTOIN 08-09 02:17 → 4SSUR 08-09 02:41
PROVIDERS: ADMIT Surgery; ATTEND Surgery
DX: T81.43XA Infection following a procedure, organ and space surgical site, initial encounter (principal); T81.30XA Disruption of wound, unspecified, initial encounter; J44.89 Other specified chronic obstructive pulmonary disease; F31.9 Bipolar disorder, unspecified; E03.9 Hypothyroidism, unspecified; I10 Essential (primary) hypertension; Z68.33 Body mass index [BMI] 33.0-33.9, adult; M19.90 Unspecified osteoarthritis, unspecified site; F60.3 Borderline personality disorder; K21.9 Gastro-esophageal reflux disease without esophagitis; G47.33 Obstructive sleep apnea (adult) (pediatric); K58.9 Irritable bowel syndrome, unspecified; B96.89 Other specified bacterial agents as the cause of diseases classified elsewhere; F41.9 Anxiety disorder, unspecified; R00.0 Tachycardia, unspecified; G43.909 Migraine, unspecified, not intractable, without status migrainosus; Z86.39 Personal history of other endocrine, nutritional and metabolic disease; I25.10 Atherosclerotic heart disease of native coronary artery without angina pectoris; M79.7 Fibromyalgia; Z79.84 Long term (current) use of oral hypoglycemic drugs; Z79.890 Hormone replacement therapy; Z79.899 Other long term (current) drug therapy; F50.819 Binge eating disorder, unspecified; Z86.73 Personal history of transient ischemic attack (TIA), and cerebral infarction without residual deficits; Z88.1 Allergy status to other antibiotic agents; Z88.6 Allergy status to analgesic agent; Z88.5 Allergy status to narcotic agent; Z88.8 Allergy status to other drugs, medicaments and biological substances; Z98.84 Bariatric surgery status
CPT/HCPCS: 36415; 74177; 80053; 81001; 81025; 83605; 83690; 85025; 85045; 85652; 86140; 96361; 96374; 96375; 96376; 99285

== ENCOUNTER → 2024-08-18 | Outpatient (CLI) | payer BC ==
--- NOTE | 2024-08-18 12:57 | MM ---
Reason for Exam: Screening (asymptomatic). Last mammogram was performed 1 year(s) and 3 month(s) ago. Patient History: Menarche at age 10. Patient has no children. Premenopausal. 2009, Lumpectomy on the Right side. Risk Values: Kaitlyn 5 year model risk: 0.7%. NCI Lifetime model risk: 11.0%. Prior Study Comparison: 06/04/2023 Bilateral MG 3D screening mammo w/cad, [facility]. 06/12/2023 Right MG 3D work up w/cad RT, [facility]. 12/13/2023 Right MG 3D diag mammo w/cad RT, [facility]. Tissue Density: There are scattered areas of fibroglandular density. Findings: Analyzed By CAD. On the right CC view, posterior lateral asymmetric density remains unchanged compared to the 06/04/2023 exam. However, on the right MLO view, asymmetric density inferiorly at a middle depth appears more defined. Further evaluation recommended. Chronic nodularity upper outer quadrant left breast. Otherwise, no significant change. Overall Assessment: Incomplete: need additional imaging evaluation, BI-RAD 0 Management: Special View Mammogram of the right breast. [facility] will attempt to contact patient to return for supplemental views and ultrasound if indicated. [facility], , 08/18/2024 12:54 PM. Electronically signed and approved by: Augusto Luna M.D. Radiologist
== END | disposition home or self-care (01) ==
LOC: RADMAMWWP 09:28
PROVIDERS: ATTEND Family Medicine
DX: Z12.31 Encounter for screening mammogram for malignant neoplasm of breast (principal); R92.323 Mammographic fibroglandular density, bilateral breasts
CPT/HCPCS: 77063; 77067

== ENCOUNTER → 2024-08-18 | Outpatient (CLI) | payer BC ==
[2024-08-18 08:30] VITALS: BP 129/86; PULSE 99; RESP 16; TEMP 98.5; BMI 32.5
== END ==
LOC: BARWHC3 08:11
PROVIDERS: ATTEND Surgery
DX: E66.01 Morbid (severe) obesity due to excess calories (principal); Z53.9 Procedure and treatment not carried out, unspecified reason
CPT/HCPCS: 99212

== ENCOUNTER → 2024-08-27 | Outpatient (CLI) | payer BC ==
--- NOTE | 2024-08-27 13:16 | MM ---
Reason for Exam: Additional evaluation requested from abnormal screening. Last screening mammogram was performed less than 1 month ago. Patient History: Menarche at age 10. Patient has no children. Premenopausal. 2009, Lumpectomy on the Right side. Risk Values: Kaitlyn 5 year model risk: 0.7%. NCI Lifetime model risk: 11.0%. Prior Study Comparison: 06/04/2023 Bilateral MG 3D screening mammo w/cad, [facility]. 06/12/2023 Right MG 3D work up w/cad RT, [facility]. 06/12/2023 Right US breast workup limited RT, [facility]. 12/13/2023 Right MG 3D diag mammo w/cad RT, [facility]. 12/13/2023 Right US breast limited RT, [facility]. 08/18/2024 Bilateral MG 3D screening mammo w/cad, [facility]. Tissue Density: Right: The breasts are heterogeneously dense, which may obscure small masses. Findings: Analyzed By CAD. There is a vague 1.3 cm nodular type density lower outer right breast 7 cm from the nipple. Ultrasound is recommended. Overall Assessment: Incomplete: need additional imaging evaluation, BI-RAD 0 Management: Diagnostic Breast Ultrasound of the right breast. . Results were given to the patient verbally at the time of exam. Patient should continue monthly self-breast exams. A clinical breast exam by your physician is recommended on an annual basis. This exam should not preclude additional follow-up of suspicious palpable abnormalities. Note on Kaitlyn scores and lifetime risk: 1. A Kaitlyn score greater than 3% is considered moderate risk. If this is the case, consider specialist referral to assess eligibility for a risk reducing agent. 2. If overall lifetime risk for the development of breast cancer is 20% or higher, the patient may qualify for future screening with alternating mammogram and breast MRI. [facility], , 08/27/2024 1:10 PM. Electronically signed and approved by: Shen Saleem M.D. Radiologis
--- NOTE | 2024-08-27 13:38 | USB ---
Reason for Exam: Additional evaluation requested from abnormal screening. Patient History: Menarche at age 10. Patient has no children. Premenopausal. 2009, Lumpectomy on the Right side. Risk Values: Kaitlyn 5 year model risk: 0.7%. NCI Lifetime model risk: 11.0%. Technique: Method: Targeted. Prior Study Comparison: 06/12/2023 Right MG 3D work up w/cad RT, [facility]. 12/13/2023 Right MG 3D diag mammo w/cad RT, [facility]. 08/18/2024 Bilateral MG 3D screening mammo w/cad, [facility]. Findings: The lower outer quadrant of the right breast and the retroareolar of the right breast were scanned. Electronically signed and approved by: Shen Saleem M.D. Radiologis
== END | disposition home or self-care (01) ==
LOC: RADMAMWWP 12:37
PROVIDERS: ATTEND Family Medicine
DX: R92.8 Other abnormal and inconclusive findings on diagnostic imaging of breast (principal); R92.331 Mammographic heterogeneous density, right breast
CPT/HCPCS: 77061; 77065

== ENCOUNTER 2024-09-01 17:48 | Emergency (ER) | payer BC ==
--- NOTE | 2024-09-01 18:29 | ED ---
Headache HPI - General Chief Complaint: Headache Stated Complaint: Headache/Slurred Speech Time Seen by Provider: 09/01/24 18:24 Source: RN notes reviewed, old records reviewed Mode of arrival: ambulatory Limitations: no limitations - History of Present Illness Initial Comments: This is a 39 female this patient presents today for evaluation of headache Headaches history of migraine migraine headaches complex migraine slurred speech. There is all normal character of patient's symptoms, patient requesting headache relief MD Complaint: headache, "migraine" -: days(s) Onset Description: gradual Location: frontal, temporal Severity: severe Severity scale (1-10): 10 Quality: constant, similar to previous headaches Consistency: constant Improves With: nothing Worsens With: none Associated Symptoms: nausea, vomiting Treatments Prior to Arrival: none - Related Data Home Medications Medication Instructions Recorded Confirmed Levothyroxine Sodium [Synthroid] 50 mcg PO DAILY 05/05/14 09/01/24 Cetirizine HCl [Zyrtec] 10 mg PO DAILY 08/30/19 09/01/24 Nystatin 100,000 Unit/gm Powd 1 applic TOPICAL BID PRN 12/12/21 09/01/24 [Mycostatin Powder] Ergocalciferol (Vitamin D2) 1,250 mcg PO GARCIA 05/19/22 09/01/24 [Drisdol (50,000 Iu)] Fluconazole 200 mg PO DAILY PRN 05/19/22 09/01/24 Acetaminophen Tab [Tylenol] 650 mg PO Q6H PRN 10/02/22 09/01/24 Lasmiditan Succinate [Reyvow] 50 mg PO DAILY PRN 10/02/22 09/01/24 Metoclopramide [Reglan] 10 mg PO DAILY PRN 10/02/22 09/01/24 Ketorolac [Toradol] 10 mg PO Q6HR PRN 10/30/22 09/01/24 HYDROcodone/APAP 10-325MG [Tebbetts 1 tab PO BID PRN 11/19/23 09/01/24 10-325] hydrOXYzine HCL [Atarax] 100 mg PO HS PRN 04/28/24 09/01/24 tiZANidine [Zanaflex] 2 mg PO HS PRN 04/28/24 09/01/24 Dextroamphetamine/Amphetamine 40 mg PO DAILY 06/27/24 09/01/24 [Adderall] Amitriptyline HCl [Elavil] 100 mg PO HS 06/30/24 09/01/24 Pregabalin [Lyrica] 225 mg PO BID 07/31/24 09/01/24 buPROPion XL [Wellbutrin XL] 300 mg PO HS 07/31/24 09/01/24 Furosemide [Lasix] 20 mg PO BID 08/27/24 09/01/24 Potassium Chloride ER [K-Dur 10] 1 tab PO DAILY 09/01/24 09/01/24 Allergies Allergy/AdvReac Type Severity Reaction Status Date / Time cephalexin [From Keflex] Allergy Rash/Hives Verified 09/01/24 18:23 codeine AdvReac Hallucinati Verified 09/01/24 18:23 ons tramadol AdvReac Hallucinati Verified 09/01/24 18:23 ons valacyclovir HCl AdvReac BLURRED Verified 09/01/24 18:23 [From Valtrex] VISION Review of Systems ROS Statement: Those systems with pertinent positive or pertinent negative responses have been documented in the HPI. ROS Other: All systems not noted in ROS Statement are negative. Past Medical History Past Medical History: Asthma, Diabetes Mellitus, Fibromyalgia, GERD/Reflux, Sleep Apnea/CPAP/BIPAP, Thyroid Disorder Additional Past Medical History / Comment(s): Migraines with aura, DDD, NIDDM type II- Per Dr no longer considered diabetic due to weight loss surgery + improved A1C, diverticulitis with perforation/colostomy since reversed, IBS, chronic seroma, CARLITOS/no device-improvement since surgery , polycystic ovaries, hypothyroid, season allergies History of Any Multi-Drug Resistant Organisms: None Reported Past Surgical History: Bariatric Surgery, Cholecystectomy, Hernia Repair, Hysterectomy, Uterine Ablation Additional Past Surgical History / Comment(s): 06/06/21 sleeve gastrectomy, Rt Breast biopsy. bowel resection with colostomy/ later colostomy reversal, abdominal surgery to remove scar tissue, EGD, colonoscopy, lower back pain procedures, uterine ablation, lysis of adhesions 07/11/22, 02/04/24-laparscopic hysterectomy. panniculectomy 06-30-24 Past Anesthesia/Blood Transfusion Reactions: No Reported Reaction Additional Past Anesthesia/Blood Transfusion Reaction / Comment(s): No reaction w/ blood Past Psychological History: Anxiety, Bipolar, Depression Smoking Status: Never smoker Past Alcohol Use History: Rare Past Drug Use History: None Reported - Past Family History Mother History Unknown: Yes Family Medical History: COPD Additional Family Medical History / Comment(s): Mother from COPD at the age of 55 yrs. Maternal grandmother - esophageal cancer Brother(s) Family Medical History: Diabetes Mellitus Father Family Medical History: Unable to Obtain General Exam Limitations: no limitations General appearance: alert, in no apparent distress Head exam: Present: atraumatic, normocephalic, normal inspection Eye exam: Present: normal appearance, PERRL, EOMI. Absent: scleral icterus, conjunctival injection, periorbital swelling ENT exam: Present: normal exam, mucous membranes moist Neck exam: Present: normal inspection. Absent: tenderness, meningismus, lymphadenopathy Respiratory exam: Present: normal lung sounds bilaterally. Absent: respiratory distress, wheezes, rales, rhonchi, stridor Cardiovascular Exam: Present: regular rate, normal rhythm, normal heart sounds. Absent: systolic murmur, diastolic murmur, rubs, gallop, clicks GI/Abdominal exam: Present: soft, normal bowel sounds. Absent: distended, tenderness, guarding, rebound, rigid Extremities exam: Present: normal inspection, full ROM, normal capillary refill. Absent: tenderness, pedal edema, joint swelling, calf tenderness Back exam: Present: normal inspection Neurological exam: Present: alert, oriented X3, CN II-XII intact Psychiatric exam: Present: normal affect, normal mood Skin exam: Present: warm, dry, intact, normal color. Absent: rash Course Vital Signs 09/01/24 09/01/24 18:21 19:51 Temperature 98.5 F 98.4 F Pulse Rate 89 82 Respiratory 16 18 Rate Blood Pressure 125/85 112/64 O2 Sat by Pulse 97 100 Oximetry - Reevaluation(s) Reevaluation #1: 09/01/24 21:41 Medical records reviewed Reevaluation #2: 09/01/24 21:41 Patient's headache resolved Reevaluation #3: 09/01/24 21:41 Patient informed of results questions answered Reevaluation #4: Was pt. sent in by a medical professional or institution (, PA, COUNTY MANAGER, urgent care, hospital, or snf...) When possible be specific @ -no Did you speak to anyone other than the patient for history (EMS, parent, family, police, friend...)? What history was obtained from this source @ -no Did you review nursing and triage notes (agree or disagree)? Why? @ -agree Are old charts reviewed (outside hosp., previous admission, EMS record, old EKG, old radiological studies, urgent care reports/EKG's, snf records)? Report findings @ -yes Differential Diagnosis (chest pain, altered mental status, abdominal pain women, abdominal pain men, vaginal bleeding, weakness, fever, dyspnea, syncope, headache, dizziness, GI bleed, back pain, seizure, CVA, palpatations, mental health, musculoskeletal)? @ -prior EKG interpreted by me (3pts min.). @ -yes X-rays interpreted by me (1pt min.). @ -yes negative for acute disease CT interpreted by me (1pt min.). @ -no U/S interpreted by me (1pt. min.). @ -no What testing was considered but not performed or refused? (CT, X-rays, U/S, labs)? Why? @ -none What meds were considered but not given or refused? Why? @ -none Did you discuss the management of the patient with other professionals (professionals i.e. , PA, COUNTY MANAGER, lab, RT, psych nurse, clinical social worker, tester wafer substrate, teacher, chief procurement officer, sample case porter)? Give summary @ -no Was smoking cessation discussed for >3mins.? @ -no Was critical care preformed (if so, how long)? @ -no Were there social determinants of health that impacted care today? How? (Homelessness, low income, unemployed, alcoholism, drug addiction, transportation, low edu. Level, literacy, decrease access to med. care, long-term, rehab)? @ -none Was there de-escalation of care discussed even if they declined (Discuss DNR or withdrawal of care, Hospice)? DNR status @ -no What co-morbidities impacted this encounter? (DM, HTN, Smoking, COPD, CAD, Cancer, CVA, ARF, Chemo, Hep., AIDS, mental health diagnosis, sleep apnea, morbid obesity)? @ -none Was patient admitted / discharged? Hospital course, mention meds given and route, prescriptions, significant lab abnormalities, going to OR and other pertinent info. @ - Undiagnosed new problem with uncertain prognosis? @ -no Drug Therapy requiring intensive monitoring for toxicity (Heparin, Nitro, Insulin, Cardizem)? @ -no Were any procedures done? @ -no Diagnosis/symptom? @ - Acute, or Chronic, or Acute on Chronic? @ -Acute Uncomplicated (without systemic symptoms) or Complicated (systemic symptoms)? @ -Complicated Side effects of treatment? @ -no Exacerbation, Progression, or Severe Exacerbation? @ -exacerbation Poses a threat to life or bodily function? How? (Chest pain, [place], [place], pneumonia, PE, COPD, DKA, ARF, appy, cholecystitis, CVA, Diverticulitis, Homicidal, S uicidal, threat to staff... and all critical care pts) @ -yes Reevaluation #5: Differential Headache: Migraine, tension, cluster, carbon monoxide, central venous thrombosis, pension karma temporal arteritis, acute closure glaucoma, intercranial hemorrhage, mastoiditis, sinusitis, head injury, this is not meant to be an all-inclusive list. Medical Decision Making - Medical Decision Making 39 female chronic headache chronic migraine headache resolved patient feels well and can be discharged home Disposition Clinical Impression: Slurred speech, Cephalgia Disposition: HOME SELF-CARE Condition: Good Instructions (If sedation given, give patient instructions): Acute Headache (ED) Is patient prescribed a controlled substance at d/c from ED?: No Referrals: Alfred Varela [Primary Care Provider] - 1-2 days Time of Disposition: 19:00
[2024-09-01] MEDS: diphenhydrAMINE 50 MG CAP PO STA (19:38)
[2024-09-01] MEDS: HYDROmorphone 1 MG/ML 1 ML SYRINGE IM STA (19:39)
[2024-09-01] MEDS: PROCHLORPERAZINE 10 MG TAB PO STA (19:42)
[2024-09-01 19:53] VITALS: BP 112/64; PULSE 82; RESP 18; TEMP 98.4
== END 2024-09-01 19:51 | disposition home or self-care (01) ==
LOC: EC 17:48
DX: G43.909 Migraine, unspecified, not intractable, without status migrainosus (principal); R47.81 Slurred speech; Z88.5 Allergy status to narcotic agent; Z88.1 Allergy status to other antibiotic agents; Z88.8 Allergy status to other drugs, medicaments and biological substances; Z88.6 Allergy status to analgesic agent
CPT/HCPCS: 99283; 96372; S0183; J1171

== ENCOUNTER → 2024-09-01 | Outpatient (CLI) | payer BC ==
[2024-09-01 08:48] VITALS: BP 115/81; PULSE 92; RESP 16; TEMP 98.9
== END ==
LOC: BARWHC3 08:13
PROVIDERS: ATTEND Surgery
DX: E66.01 Morbid (severe) obesity due to excess calories (principal); Z53.9 Procedure and treatment not carried out, unspecified reason
CPT/HCPCS: 99212

== ENCOUNTER 2024-09-07 18:46 | Emergency (ER) | payer BC ==
--- NOTE | 2024-09-07 20:26 | ED ---
Wound/Laceration HPI - General Chief Complaint: Wound/Laceration Stated Complaint: left hand wound Time Seen by Provider: 09/07/24 20:20 Source: patient, RN notes reviewed Mode of arrival: ambulatory Limitations: no limitations - History of Present Illness Initial Comments: 39-year-old female presenting for a laceration of the left hand 2 hours ago. Terrence kovacs states she accidentally sliced herself with a razor blade while cleaning a window 2 hours ago. States the laceration is located on the ventral aspect of the left hand. No blood thinners. No active bleeding. Last tetanus unknown. No other injuries. - Related Data Home Medications Medication Instructions Recorded Confirmed Levothyroxine Sodium [Synthroid] 50 mcg PO DAILY 05/05/14 09/01/24 Cetirizine HCl [Zyrtec] 10 mg PO DAILY 08/30/19 09/01/24 Nystatin 100,000 Unit/gm Powd 1 applic TOPICAL BID PRN 12/12/21 09/01/24 [Mycostatin Powder] Ergocalciferol (Vitamin D2) 1,250 mcg PO GARCIA 05/19/22 09/01/24 [Drisdol (50,000 Iu)] Fluconazole 200 mg PO DAILY PRN 05/19/22 09/01/24 Acetaminophen Tab [Tylenol] 650 mg PO Q6H PRN 10/02/22 09/01/24 Lasmiditan Succinate [Reyvow] 50 mg PO DAILY PRN 10/02/22 09/01/24 Metoclopramide [Reglan] 10 mg PO DAILY PRN 10/02/22 09/01/24 Ketorolac [Toradol] 10 mg PO Q6HR PRN 10/30/22 09/01/24 HYDROcodone/APAP 10-325MG [[place] 1 tab PO BID PRN 11/19/23 09/01/24 10-325] hydrOXYzine HCL [Atarax] 100 mg PO HS PRN 04/28/24 09/01/24 tiZANidine [Zanaflex] 2 mg PO HS PRN 04/28/24 09/01/24 Dextroamphetamine/Amphetamine 40 mg PO DAILY 06/27/24 09/01/24 [Adderall] Amitriptyline HCl [Elavil] 100 mg PO HS 06/30/24 09/01/24 Pregabalin [Lyrica] 225 mg PO BID 07/31/24 09/01/24 buPROPion XL [Wellbutrin XL] 300 mg PO HS 07/31/24 09/01/24 Furosemide [Lasix] 20 mg PO BID 08/27/24 09/01/24 Potassium Chloride ER [K-Dur 10] 1 tab PO DAILY 09/01/24 09/01/24 Allergies Allergy/AdvReac Type Severity Reaction Status Date / Time cephalexin [From Keflex] Allergy Rash/Hives Verified 09/07/24 19:05 codeine AdvReac Hallucinati Verified 09/07/24 19:05 ons tramadol AdvReac Hallucinati Verified 09/07/24 19:05 ons valacyclovir HCl AdvReac BLURRED Verified 09/07/24 19:05 [From Valtrex] VISION Review of Systems ROS Statement: Those systems with pertinent positive or pertinent negative responses have been documented in the HPI. ROS Other: All systems not noted in ROS Statement are negative. Past Medical History Past Medical History: Asthma, Diabetes Mellitus, Fibromyalgia, GERD/Reflux, Sleep Apnea/CPAP/BIPAP, Thyroid Disorder Additional Past Medical History / Comment(s): Migraines with aura, DDD, NIDDM type II- Per Dr no longer considered diabetic due to weight loss surgery + improved A1C, diverticulitis with perforation/colostomy since reversed, IBS, chronic seroma, CARLITOS/no device-improvement since surgery , polycystic ovaries, hypothyroid, season allergies History of Any Multi-Drug Resistant Organisms: None Reported Past Surgical History: Bariatric Surgery, Cholecystectomy, Hernia Repair, Hysterectomy, Uterine Ablation Additional Past Surgical History / Comment(s): 06/06/21 sleeve gastrectomy, Rt Breast biopsy. bowel resection with colostomy/ later colostomy reversal, abdominal surgery to remove scar tissue, EGD, colonoscopy, lower back pain procedures, uterine ablation, lysis of adhesions 07/11/22, 02/04/24-laparscopic hysterectomy. panniculectomy 06-30-24 Past Anesthesia/Blood Transfusion Reactions: No Reported Reaction Additional Past Anesthesia/Blood Transfusion Reaction / Comment(s): No reaction w/ blood Past Psychological History: Anxiety, Bipolar, Depression Smoking Status: Never smoker Past Alcohol Use History: Rare Past Drug Use History: None Reported - Past Family History Mother History Unknown: Yes Family Medical History: COPD Additional Family Medical History / Comment(s): Mother from COPD at the age of 55 yrs. Maternal grandmother - esophageal cancer Brother(s) Family Medical History: Diabetes Mellitus Father Family Medical History: Unable to Obtain General Exam Limitations: no limitations General appearance: alert, in no apparent distress Head exam: Present: atraumatic, normocephalic, normal inspection Left Elbow exam: Present: normal inspection, full ROM. Absent: tenderness, swelling Forearm Wrist exam: Present: full ROM. Absent: normal inspection (There is a 3 cm superficial laceration present on ventral aspect of left hand. No active bleeding. No gaping), tenderness, swelling, abrasion, erythema Hand Wrist exam: Present: normal inspection, full ROM. Absent: tenderness, swelling Vascular: Present: normal capillary refill, radial pulse. Absent: vascular compromise Neurological exam: Present: alert, oriented X3 Psychiatric exam: Present: normal affect, normal mood Skin exam: Present: warm, dry, intact, normal color. Absent: rash Course Vital Signs 09/07/24 19:01 Temperature 97.9 F Pulse Rate 88 Respiratory 18 Rate Blood Pressure 127/84 O2 Sat by Pulse 99 Oximetry Medical Decision Making - Medical Decision Making Was pt. sent in by a medical professional or institution (TERRENCE Carrera, INDUSTRIAL RELATIONS COMMISSIONER, urgent care, hospital, or detention...) When possible be specific @ -No Did you speak to anyone other than the patient for history (EMS, parent, family, police, friend...)? What history was obtained from this source @ -No Did you review nursing and triage notes (agree or disagree)? Why? @ -I reviewed and agree with nursing and triage notes Were old charts reviewed (outside hosp., previous admission, EMS record, old EKG, old radiological studies, urgent care reports/EKG's, detention records)? Report findings @ -No old charts were reviewed Differential Diagnosis (chest pain, altered mental status, abdominal pain women, abdominal pain men, vaginal bleeding, weakness, fever, dyspnea, syncope, headache, dizziness, GI bleed, back pain, seizure, CVA, palpatations, mental health, musculoskeletal)? @ -Differential Musculoskeletal Muscular strain, contusion, ligament sprain, fracture, arthritis, septic arthritis, bursitis, cellulitis, muscle spasm, nerve compression, DVT, arterial occlusion, herpes zoster, electrolyte abnormality, tumor.... This is not meant to be in all inclusive list EKG interpreted by me (3pts min.). @ -None X-rays interpreted by me (1pt min.). @ -None done CT interpreted by me (1pt min.). @ -None done U/S interpreted by me (1pt. min.). @ -None done What testing was considered but not performed or refused? (CT, X-rays, U/S, labs)? Why? @ -None What meds were considered but not given or refused? Why? @ -None Did you discuss the management of the patient with other professionals (professionals i.e. Dr., PA, INDUSTRIAL RELATIONS COMMISSIONER, lab, RT, psych nurse, social worker masters, divorce lawyer, teacher, financial aid officer, dependency case manager)? Give summary @ -No Was smoking cessation discussed for >3mins.? @ -No Was critical care preformed (if so, how long)? @ -No Were there social determinants of health that impacted care today? How? (Homelessness, low income, unemployed, alcoholism, drug addiction, transportation, low edu. Level, literacy, decrease access to med. care, senior care, rehab)? @ -No Was there de-escalation of care discussed even if they declined (Discuss DNR or withdrawal of care, Hospice)? DNR status @ -No What co-morbidities impacted this encounter? (DM, HTN, Smoking, COPD, CAD, Cancer, CVA, ARF, Chemo, Hep., AIDS, mental health diagnosis, sleep apnea, morbid obesity)? @ -None Was patient admitted / discharged? Hospital course, mention meds given and route, prescriptions, significant lab abnormalities, going to OR and other pertinent info. @ -Discharge. 39-year-old female presenting for left hand laceration 2 hours ago. Patient accidentally sliced herself with a razor blade while cleaning her windows. There is a superficial 3 cm nongaping, nonbleeding laceration present on ventral aspect of left hand. Tetanus was updated. Wound was thoroughly irrigated and closed with skin adhesive and Steri-Strips. Appropriate return precautions and supportive care discussed. Case was discussed with my ED attending Dr. Bryan. Undiagnosed new problem with uncertain prognosis? @ -No Drug Therapy requiring intensive monitoring for toxicity (Heparin, Nitro, Insulin, Cardizem)? @ -No Were any procedures done? @ -No Diagnosis/symptom? @ -Left hand laceration Acute, or Chronic, or Acute on Chronic? @ -Acute Uncomplicated (without systemic symptoms) or Complicated (systemic symptoms)? @ -Uncomplicated Side effects of treatment? @ -No Exacerbation, Progression, or Severe Exacerbation? @ -No Poses a threat to life or bodily function? How? (Chest pain, [place], [place], pneumonia, PE, COPD, DKA, ARF, appy, cholecystitis, CVA, Diverticulitis, Homicidal, Suicidal, threat to staff... and all critical care pts) @ -No Disposition Clinical Impression: Laceration of left hand Disposition: HOME SELF-CARE Condition: Stable Instructions (If sedation given, give patient instructions): Laceration (ED) Additional Instructions: Please return to the Emergency Department if symptoms worsen or any other concerns. Is patient prescribed a controlled substance at d/c from ED?: No Referrals: Alfred Varela [Primary Care Provider] - 1-2 days Time of Disposition: 21:24
[2024-09-07] MEDS: DIPH,PERTUS(ACELL)TETVAC-LF 0.5 ML VIAL IM ONE (21:07)
[2024-09-07 21:36] VITALS: BP 111/78; PULSE 72; RESP 16; TEMP 98.2
== END 2024-09-07 21:34 | disposition home or self-care (01) ==
LOC: EC 18:46
DX: S61.412A Laceration without foreign body of left hand, initial encounter (principal); Z23 Encounter for immunization; Z88.1 Allergy status to other antibiotic agents; Z88.5 Allergy status to narcotic agent; Z88.8 Allergy status to other drugs, medicaments and biological substances; W26.8XXA Contact with other sharp object(s), not elsewhere classified, initial encounter; Y93.E9 Activity, other interior property and clothing maintenance
CPT/HCPCS: 12002; 90471; 90715; 99282

== ENCOUNTER → 2024-09-08 | Outpatient (CLI) | payer BC ==
[2024-09-08 09:37] VITALS: BP 120/87; PULSE 99; TEMP 98.3; BMI 32.7
--- NOTE | 2024-09-08 17:23 | P.HPBAR ---
Bariatric H&P - History & Physicial H&P Date: 09/08/24 History & Physicial: Visit/CC: anneni follow up Patient initial contact: Initial weight: 312 kg Initial weight in pounds: 687.84 Height: 5 ft 7 in Initial BMI: 107.7 Last weight: Current weight: 94.801 kg Current weight in pounds: 209.00 Current BMI: 32.7 [place] body weight (based on NIH guidelines): 61.36 kg Excess body weight loss: 86.6% The patient is a 39 year-old F who presents for Bariatric Assessment. This is a 39-year-old female who presents today for bariatric follow-up. Patient states her panniculectomy incision is healing. Her drains were removed several weeks ago. She still has a small wound which is healing on her left lower side. Patient has some minimal gerd. She has also had some complaints of fatigue Past Medical History Past Medical History: Asthma, Diabetes Mellitus, Fibromyalgia, GERD/Reflux, Sleep Apnea/CPAP/BIPAP, Thyroid Disorder Additional Past Medical History / Comment(s): Migraines with aura, DDD, NIDDM type II- Per Dr no longer considered diabetic due to weight loss surgery + improved A1C, diverticulitis with perforation/colostomy since reversed, IBS, chronic seroma, CARLITOS/no device-improvement since surgery , polycystic ovaries, hypothyroid, season allergies History of Any Multi-Drug Resistant Organisms: None Reported Past Surgical History: Bariatric Surgery, Cholecystectomy, Hernia Repair, Hysterectomy, Uterine Ablation Additional Past Surgical History / Comment(s): 06/06/21 sleeve gastrectomy, Rt Breast biopsy. bowel resection with colostomy/ later colostomy reversal, abdominal surgery to remove scar tissue, EGD, colonoscopy, lower back pain procedures, uterine ablation, lysis of adhesions 07/11/22, 02/04/24-laparscopic hysterectomy. panniculectomy 06-30-24 Past Anesthesia/Blood Transfusion Reactions: No Reported Reaction Additional Past Anesthesia/Blood Transfusion Reaction / Comm: No reaction w/ blood Smoking Status: Never smoker - Past Family History Mother History Unknown: Yes Family Medical History: COPD Additional Family Medical History / Comment(s): Mother from COPD at the age of 55 yrs. Maternal grandmother - esophageal cancer Brother(s) Family Medical History: Diabetes Mellitus Father Family Medical History: Unable to Obtain Surgical - Exam Vital Signs Temp Pulse BP 98.3 F 99 120/87 09/08/24 09:34 09/08/24 09:34 09/08/24 09:34 - General well developed, well nourished, no distress - Eyes PERRL - ENT normal pinna - Respiratory normal expansion - Cardiovascular Rhythm: regular - Abdomen Left lower incisional wound is significantly smaller. There is no drainage there is healthy granulation tissue. Abdomen: soft, non tender Bariatric Assessment & Plan Plan: Status post sleeve gastrectomy and panniculectomy. Patient is doing quite well. Her gerd is minimal will be observed. She will follow-up Dr. Maloney for her wound care. Bariatric Checklist Checklist: Plan: Checklist: EGD: 1. Hiatal hernia: 2. H. Pylori: HgbA1c: Vitamin D: Smoking: Never smoker Primary care physician referral: JOSE DAVILA/DR AVERY Psychiatry clearance: Cardiology clearance: Sleep study: Diet journal: VTE risk score: VTE risk level: Rehab needs at discharge:
== END ==
LOC: BARWHC3 08:16
PROVIDERS: ATTEND Surgery
DX: K21.9 Gastro-esophageal reflux disease without esophagitis (principal); Z98.84 Bariatric surgery status; Z88.1 Allergy status to other antibiotic agents; Z88.5 Allergy status to narcotic agent; Z88.8 Allergy status to other drugs, medicaments and biological substances
CPT/HCPCS: 99211

== ENCOUNTER 2024-09-20 21:22 | Emergency (ER) | payer BC ==
[2024-09-20 21:26] VITALS: RESP 18; TEMP 97.7
--- NOTE | 2024-09-20 21:29 | ED ---
Headache HPI - General Chief Complaint: Headache Stated Complaint: Migraine Time Seen by Provider: 09/20/24 21:29 Source: RN notes reviewed, old records reviewed Mode of arrival: ambulatory Limitations: no limitations - History of Present Illness Initial Comments: This is a 39-year-old female who is well-known to this ER coming in for evaluation of migraine headache exacerbation of chronic migraine headaches is her normal migraine some slurred speech some confusion some involuntary movements which are all typical of her migraine headaches. Patient has nausea throbbing headache worse with light and sound MD Complaint: headache, "migraine" -: hour(s) Onset Description: gradual Location: right, frontal, temporal Severity: severe Severity scale (1-10): 9 Quality: constant Consistency: constant Improves With: nothing Worsens With: none Context: occurred at rest Associated Symptoms: nausea, vomiting Other Symptoms: other Treatments Prior to Arrival: none - Related Data Home Medications Medication Instructions Recorded Confirmed Levothyroxine Sodium [Synthroid] 50 mcg PO DAILY 05/05/14 09/08/24 Cetirizine HCl [Zyrtec] 10 mg PO DAILY 08/30/19 09/08/24 Nystatin 100,000 Unit/gm Powd 1 applic TOPICAL BID PRN 12/12/21 09/08/24 [Mycostatin Powder] Ergocalciferol (Vitamin D2) 1,250 mcg PO GARCIA 05/19/22 09/08/24 [Drisdol (50,000 Iu)] Fluconazole 200 mg PO DAILY PRN 05/19/22 09/08/24 Acetaminophen Tab [Tylenol] 650 mg PO Q6H PRN 10/02/22 09/08/24 Lasmiditan Succinate [Reyvow] 50 mg PO DAILY PRN 10/02/22 09/08/24 Metoclopramide [Reglan] 10 mg PO DAILY PRN 10/02/22 09/08/24 Ketorolac [Toradol] 10 mg PO Q6HR PRN 10/30/22 09/08/24 HYDROcodone/APAP 10-325MG [[place] 1 tab PO BID PRN 11/19/23 09/08/24 10-325] hydrOXYzine HCL [Atarax] 100 mg PO HS PRN 04/28/24 09/08/24 tiZANidine [Zanaflex] 2 mg PO HS PRN 04/28/24 09/08/24 Dextroamphetamine/Amphetamine 40 mg PO DAILY 06/27/24 09/08/24 [Adderall] Amitriptyline HCl [Elavil] 100 mg PO HS 06/30/24 09/08/24 Pregabalin [Lyrica] 225 mg PO BID 07/31/24 09/08/24 buPROPion XL [Wellbutrin XL] 300 mg PO HS 07/31/24 09/08/24 Furosemide [Lasix] 20 mg PO BID 08/27/24 09/08/24 Potassium Chloride ER [K-Dur 10] 1 tab PO DAILY 09/01/24 09/08/24 Allergies Allergy/AdvReac Type Severity Reaction Status Date / Time cephalexin [From Keflex] Allergy Rash/Hives Verified 09/20/24 21:27 codeine AdvReac Hallucinati Verified 09/20/24 21:27 ons tramadol AdvReac Hallucinati Verified 09/20/24 21:27 ons valacyclovir HCl AdvReac BLURRED Verified 09/20/24 21:27 [From Valtrex] VISION Review of Systems ROS Statement: Those systems with pertinent positive or pertinent negative responses have been documented in the HPI. ROS Other: All systems not noted in ROS Statement are negative. Past Medical History Past Medical History: Asthma, Diabetes Mellitus, Fibromyalgia, GERD/Reflux, Sleep Apnea/CPAP/BIPAP, Thyroid Disorder Additional Past Medical History / Comment(s): Migraines with aura, DDD, NIDDM type II- Per Dr no longer considered diabetic due to weight loss surgery + improved A1C, diverticulitis with perforation/colostomy since reversed, IBS, chronic seroma, CARLITOS/no device-improvement since surgery , polycystic ovaries, hypothyroid, season allergies History of Any Multi-Drug Resistant Organisms: None Reported Past Surgical History: Bariatric Surgery, Cholecystectomy, Hernia Repair, Hysterectomy, Uterine Ablation Additional Past Surgical History / Comment(s): 06/06/21 sleeve gastrectomy, Rt Breast biopsy. bowel resection with colostomy/ later colostomy reversal, abdominal surgery to remove scar tissue, EGD, colonoscopy, lower back pain procedures, uterine ablation, lysis of adhesions 07/11/22, 02/04/24-laparscopic hysterectomy. panniculectomy 06-30-24 Past Anesthesia/Blood Transfusion Reactions: No Reported Reaction Additional Past Anesthesia/Blood Transfusion Reaction / Comment(s): No reaction w/ blood Past Psychological History: Anxiety, Bipolar, Depression Smoking Status: Never smoker Past Alcohol Use History: Rare Past Drug Use History: None Reported - Past Family History Mother History Unknown: Yes Family Medical History: COPD Additional Family Medical History / Comment(s): Mother from COPD at the age of 55 yrs. Maternal grandmother - esophageal cancer Brother(s) Family Medical History: Diabetes Mellitus Father Family Medical History: Unable to Obtain General Exam Limitations: no limitations General appearance: alert, in no apparent distress Head exam: Present: atraumatic, normocephalic, normal inspection Eye exam: Present: normal appearance, PERRL, EOMI. Absent: scleral icterus, conjunctival injection, periorbital swelling ENT exam: Present: normal exam, mucous membranes moist Neck exam: Present: normal inspection. Absent: tenderness, meningismus, lymphadenopathy Respiratory exam: Present: normal lung sounds bilaterally. Absent: respiratory distress, wheezes, rales, rhonchi, stridor Cardiovascular Exam: Present: regular rate, normal rhythm, normal heart sounds. Absent: systolic murmur, diastolic murmur, rubs, gallop, clicks GI/Abdominal exam: Present: soft, normal bowel sounds. Absent: distended, tenderness, guarding, rebound, rigid Extremities exam: Present: normal inspection, full ROM, normal capillary refill. Absent: tenderness, pedal edema, joint swelling, calf tenderness Back exam: Present: normal inspection Neurological exam: Present: alert, oriented X3, CN II-XII intact Psychiatric exam: Present: normal affect, normal mood Skin exam: Present: warm, dry, intact, normal color. Absent: rash Course Vital Signs 09/20/24 09/20/24 21:23 22:11 Temperature 97.7 F Pulse Rate 93 97 Respiratory 18 18 Rate Blood Pressure 129/83 125/87 O2 Sat by Pulse 100 99 Oximetry - Reevaluation(s) Reevaluation #1: Medical records reviewed Reevaluation #2: Patient's symptoms and headache resolved Reevaluation #3: Patient informed of results questions answered Reevaluation #4: Was pt. sent in by a medical professional or institution (, PA, PRESIDENT AND CHIEF OPERATING OFFICER, urgent care, hospital, or fci...) When possible be specific @ -no Did you speak to anyone other than the patient for history (EMS, parent, family, police, friend...)? What history was obtained from this source @ -no Did you review nursing and triage notes (agree or disagree)? Why? @ -agree Are old charts reviewed (outside hosp., previous admission, EMS record, old EKG, old radiological studies, urgent care reports/EKG's, fci records)? Report findings @ -yes Differential Diagnosis (chest pain, altered mental status, abdominal pain women, abdominal pain men, vaginal bleeding, weakness, fever, dyspnea, syncope, headache, dizziness, GI bleed, back pain, seizure, CVA, palpatations, mental health, musculoskeletal)? @ -prior EKG interpreted by me (3pts min.). @ -no X-rays interpreted by me (1pt min.). @ -no CT interpreted by me (1pt min.). @ -no U/S interpreted by me (1pt. min.). @ -no What testing was considered but not performed or refused? (CT, X-rays, U/S, labs)? Why? @ -none What meds were considered but not given or refused? Why? @ -none Did you discuss the management of the patient with other professionals (professionals i.e. , PA, PRESIDENT AND CHIEF OPERATING OFFICER, lab, RT, psych nurse, social science manager, cement worker, teacher, assignment officer, bilingual case manager)? Give summary @ -no Was smoking cessation discussed for >3mins.? @ -no Was critical care preformed (if so, how long)? @ -no Were there social determinants of health that impacted care today? How? (Homelessness, low income, unemployed, alcoholism, drug addiction, transportation, low edu. Level, literacy, decrease access to med. care, residential, rehab)? @ -none Was there de-escalation of care discussed even if they declined (Discuss DNR or withdrawal of care, Hospice)? DNR status @ -no What co-morbidities impacted this encounter? (DM, HTN, Smoking, COPD, CAD, Cancer, CVA, ARF, Chemo, Hep., AIDS, mental health diagnosis, sleep apnea, morbid obesity)? @ -none Was patient admitted / discharged? Hospital course, mention meds given and route, prescriptions, significant lab abnormalities, going to OR and other pertinent info. @ -39 female with acute on chronic migraine headache headache now resolved patient feels well and can be discharged home Discharge Undiagnosed new problem with uncertain prognosis? @ -no Drug Therapy requiring intensive monitoring for toxicity (Heparin, Nitro, Insulin, Cardizem)? @ -no Were any procedures done? @ -no Diagnosis/symptom? @ -Headache, chronic migraine Acute, or Chronic, or Acute on Chronic? @ -Acute Uncomplicated (without systemic symptoms) or Complicated (systemic symptoms)? @ -Complicated Side effects of treatment? @ -no Exacerbation, Progression, or Severe Exacerbation? @ -exacerbation Poses a threat to life or bodily function? How? (Chest pain, [place], [place], pneumonia, PE, COPD, DKA, ARF, appy, cholecystitis, CVA, Diverticulitis, Homicidal, Suicidal, threat to staff... and all critical care pts) @ -no Reevaluation #5: Differential Headache: Migraine, tension, cluster, carbon monoxide, central venous thrombosis, pension karma temporal arteritis, acute closure glaucoma, intercranial hemorrhage, mastoiditis, sinusitis, head injury, this is not meant to be an all-inclusive list. Medical Decision Making - Medical Decision Making 39 female with acute on chronic migraine headache headache now resolved patient feels well and can be discharged home Disposition Clinical Impression: Migraine headache Disposition: HOME SELF-CARE Condition: Fair Instructions (If sedation given, give patient instructions): Acute Headache (ED) Is patient prescribed a controlled substance at d/c from ED?: No Referrals: Alfred Varela [Primary Care Provider] - 1-2 days Time of Disposition: 21:45
[2024-09-20] MEDS: diphenhydrAMINE 50 MG CAP PO STA (21:55)
[2024-09-20] MEDS: IBUPROFEN 800 MG TAB PO STA (21:55)
[2024-09-20] MEDS: PROCHLORPERAZINE 10 MG TAB PO ONE (21:55)
[2024-09-20] MEDS: HYDROmorphone 1 MG/ML 1 ML SYRINGE IM STA (21:56)
[2024-09-20 22:12] VITALS: BP 125/87; PULSE 97
== END 2024-09-20 22:12 | disposition home or self-care (01) ==
LOC: EC 21:22
DX: G43.E09 Chronic migraine with aura, not intractable, without status migrainosus (principal); Z88.1 Allergy status to other antibiotic agents; Z88.6 Allergy status to analgesic agent; Z88.5 Allergy status to narcotic agent; Z88.8 Allergy status to other drugs, medicaments and biological substances
CPT/HCPCS: 99283; 96372; S0183; J1171

== ENCOUNTER → 2024-10-01 | Outpatient (CLI) | payer BC ==
--- NOTE | 2024-10-01 15:46 | XR ---
EXAMINATION TYPE: XR knee 4V LT DATE OF EXAM: 10/01/2024 CLINICAL INDICATION: Female, 39 years old with history of M25.562 Pain left knee, pain TECHNIQUE: Frontal, lateral, sunrise, and oblique views of the knee were obtained. COMPARISON: Prior left knee x-ray 2020. FINDINGS: There is no acute fracture/dislocation evident in left knee. Mild tricompartment joint spa ce loss without spurring. Patellar articulation satisfactory on the sunrise view. The overlying soft tissue appears unremarkable. IMPRESSION: As above. [facility], , 10/01/2024 3:44 PM
== END | disposition home or self-care (01) ==
LOC: RADXRMAIN 15:19
PROVIDERS: ATTEND Family Medicine
DX: M25.762 Osteophyte, left knee (principal); M25.562 Pain in left knee

== ENCOUNTER 2024-10-12 19:30 | Inpatient (IN) | payer BC ==
--- NOTE | 2024-10-12 19:36 | ED ---
Recheck HPI - General Stated Complaint: R Side abd pain/Nausea Time Seen by Provider: 10/12/24 19:36 Source: RN notes reviewed, old records reviewed - History of Present Illness Initial Comments: This is a 39-year-old female to the ER for intractable abdominal pain severe abdominal pain getting worse over the last day and a half was in the ER yesterday told to come back if symptoms worsen she is having fevers chills significant nausea vomiting but is mainly severe pain pain along incisional sites to the right side of the incision MD Complaint: wound re-check, abnormal lab, needs IV antibiotics -: days(s) Returns Today for: needs IV antibiotics, persistent/worsening pain related to initial visit Symptoms Since Prior Visit: worsening pain, fever Associated Symptoms: fever, chills, nausea, abdominal pain Treatments Prior to Arrival: other - Related Data Home Medications Medication Instructions Recorded Confirmed Levothyroxine Sodium [Synthroid] 50 mcg PO DAILY 05/05/14 09/08/24 Cetirizine HCl [Zyrtec] 10 mg PO DAILY 08/30/19 09/08/24 Nystatin 100,000 Unit/gm Powd 1 applic TOPICAL BID PRN 12/12/21 09/08/24 [Mycostatin Powder] Ergocalciferol (Vitamin D2) 1,250 mcg PO GARCIA 05/19/22 09/08/24 [Drisdol (50,000 Iu)] Fluconazole 200 mg PO DAILY PRN 05/19/22 09/08/24 Acetaminophen Tab [Tylenol] 650 mg PO Q6H PRN 10/02/22 09/08/24 Lasmiditan Succinate [Reyvow] 50 mg PO DAILY PRN 10/02/22 09/08/24 Metoclopramide [Reglan] 10 mg PO DAILY PRN 10/02/22 09/08/24 Ketorolac [Toradol] 10 mg PO Q6HR PRN 10/30/22 09/08/24 HYDROcodone/APAP 10-325MG [[place] 1 tab PO BID PRN 11/19/23 09/08/24 10-325] hydrOXYzine HCL [Atarax] 100 mg PO HS PRN 04/28/24 09/08/24 tiZANidine [Zanaflex] 2 mg PO HS PRN 04/28/24 09/08/24 Dextroamphetamine/Amphetamine 40 mg PO DAILY 06/27/24 09/08/24 [Adderall] Amitriptyline HCl [Elavil] 100 mg PO HS 06/30/24 09/08/24 Pregabalin [Lyrica] 225 mg PO BID 07/31/24 09/08/24 buPROPion XL [Wellbutrin XL] 300 mg PO HS 07/31/24 09/08/24 Furosemide [Lasix] 20 mg PO BID 08/27/24 09/08/24 Potassium Chloride ER [K-Dur 10] 1 tab PO DAILY 09/01/24 09/08/24 Allergies Allergy/AdvReac Type Severity Reaction Status Date / Time cephalexin [From Keflex] Allergy Rash/Hives Verified 10/12/24 19:56 codeine AdvReac Hallucinati Verified 10/12/24 19:56 ons tramadol AdvReac Hallucinati Verified 10/12/24 19:56 ons valacyclovir HCl AdvReac BLURRED Verified 10/12/24 19:56 [From Valtrex] VISION Review of Systems ROS Statement: Those systems with pertinent positive or pertinent negative responses have been documented in the HPI. ROS Other: All systems not noted in ROS Statement are negative. Past Medical History Past Medical History: Asthma, Diabetes Mellitus, Fibromyalgia, GERD/Reflux, Sleep Apnea/CPAP/BIPAP, Thyroid Disorder Additional Past Medical History / Comment(s): Migraines with aura, DDD, NIDDM type II- Per Dr no longer considered diabetic due to weight loss surgery + improved A1C, diverticulitis with perforation/colostomy since reversed, IBS, chronic seroma, CARLITOS/no device-improvement since surgery , polycystic ovaries, hypothyroid, season allergies History of Any Multi-Drug Resistant Organisms: None Reported Past Surgical History: Bariatric Surgery, Cholecystectomy, Hernia Repair, Hysterectomy, Uterine Ablation Additional Past Surgical History / Comment(s): 06/06/21 sleeve gastrectomy, Rt Br [place] biopsy. bowel resection with colostomy/ later colostomy reversal, abdominal surgery to remove scar tissue, EGD, colonoscopy, lower back pain procedures, uterine ablation, lysis of adhesions 07/11/22, 02/04/24-laparscopic hysterectomy. panniculectomy 06-30-24 Past Anesthesia/Blood Transfusion Reactions: No Reported Reaction Additional Past Anesthesia/Blood Transfusion Reaction / Comment(s): No reaction w/ blood Past Psychological History: Anxiety, Bipolar, Depression Smoking Status: Never smoker Past Alcohol Use History: Rare Past Drug Use History: None Reported - Past Family History Mother History Unknown: Yes Family Medical History: COPD Additional Family Medical History / Comment(s): Mother from COPD at the age of 55 yrs. Maternal grandmother - esophageal cancer Brother(s) Family Medical History: Diabetes Mellitus Father Family Medical History: Unable to Obtain General Exam General appearance: alert, in no apparent distress Head exam: Present: atraumatic, normocephalic, normal inspection Eye exam: Present: normal appearance, PERRL, EOMI. Absent: scleral icterus, conjunctival injection, periorbital swelling ENT exam: Present: normal exam, mucous membranes moist Neck exam: Present: normal inspection. Absent: tenderness, meningismus, lymphadenopathy Respiratory exam: Present: normal lung sounds bilaterally. Absent: respiratory distress, wheezes, rales, rhonchi, stridor Cardiovascular Exam: Present: regular rate, normal rhythm, normal heart sounds. Absent: systolic murmur, diastolic murmur, rubs, gallop, clicks GI/Abdominal exam: Present: soft, normal bowel sounds. Absent: distended, tenderness, guarding, rebound, rigid Extremities exam: Present: normal inspection, full ROM, normal capillary refill. Absent: tenderness, pedal edema, joint swelling, calf tenderness Back exam: Present: normal inspection Neurological exam: Present: alert, oriented X3, CN II-XII intact Psychiatric exam: Present: normal affect, normal mood Skin exam: Present: warm, dry, intact, normal color. Absent: rash Course Vital Signs 10/12/24 19:53 Temperature 97.8 F Pulse Rate 89 Respiratory 20 Rate Blood Pressure 128/82 O2 Sat by Pulse 99 Oximetry - Reevaluation(s) Reevaluation #1: 10/12/24 21:43 Medical records reviewed ER visit from yesterday including CT scan showing possibility of abscess Reevaluation #2: 10/12/24 21:43 Patient informed of results questions answered Reevaluation #3: 10/12/24 21:43 Patient has difficult to control pain here in the ER Reevaluation #4: Was pt. sent in by a medical professional or institution (, PA, HOSPITAL NURSE, urgent care, hospital, or [facility]...) When possible be specific @ -no Did you speak to anyone other than the patient for history (EMS, parent, family, police, friend...)? What history was obtained from this source @ -no Did you review nursing and triage notes (agree or disagree)? Why? @ -agree Are old charts reviewed (outside hosp., previous admission, EMS record, old EKG, old radiological studies, urgent care reports/EKG's, [facility] records)? Report findings @ -yes Differential Diagnosis (chest pain, altered mental status, abdominal pain women, abdominal pain men, vaginal bleeding, weakness, fever, dyspnea, syncope, headache, dizziness, GI bleed, back pain, seizure, CVA, palpatations, mental health, musculoskeletal)? @ -prior EKG interpreted by me (3pts min.). @ -yes X-rays interpreted by me (1pt min.). @ -yes negative for acute disease CT interpreted by me (1pt min.). @ -no U/S interpreted by me (1pt. min.). @ -no What testing was considered but not performed or refused? (CT, X-rays, U/S, labs)? Why? @ -none What meds were considered but not given or refused? Why? @ -none Did you discuss the management of the patient with other professionals (professionals i.e. , PA, HOSPITAL NURSE, lab, RT, psych nurse, medical social consultant, wall cleaner, teacher, chief credit officer, disease case manager rn)? Give summary @ -no Was smoking cessation discussed for >3mins.? @ -no Was critical care preformed (if so, how long)? @ -no Were there social determinants of health that impacted care today? How? (Homelessness, low income, unemployed, alcoholism, drug addiction, transportation, low edu. Level, literacy, decrease access to med. care, snf, rehab)? @ -none Was there de-escalation of care discussed even if they declined (Discuss DNR or withdrawal of care, Hospice)? DNR status @ -no What co-morbidities impacted this encounter? (DM, HTN, Smoking, COPD, CAD, Cancer, CVA, ARF, Chemo, Hep., AIDS, mental health diagnosis, sleep apnea, morbid obesity)? @ -none Was patient admitted / discharged? Hospital course, mention meds given and route, prescriptions, significant lab abnormalities, going to OR and other pertinent info. @ - Undiagnosed new problem with uncertain prognosis? @ -no Drug Therapy requiring intensive monitoring for toxicity (Heparin, Nitro, Insulin, Cardizem)? @ -no Were any procedures done? @ -no Diagnosis/symptom? @ - Acute, or Chronic, or Acute on Chronic? @ -Acute Uncomplicated (without systemic symptoms) or Complicated (systemic symptoms)? @ -Complicated Side effects of treatment? @ -no Exacerbation, Progression, or Severe Exacerbation? @ -exacerbation Poses a threat to life or bodily function? How? (Chest pain, [place], [place], pneumonia, PE, COPD, DKA, ARF, appy, cholecystitis, CVA, Diverticulitis, Homicidal, Suicidal, threat to staff... and all critical care pts) @ -yes Reevaluation #5: Differential Abdominal Pain Women: Appendicitis, Cholecystitis, diverticulosis, ischemic bowel, pancreatitis, hepatitis, UTI, gastroenteritis, AAA, incarcerated hernia, bowel obstruction, constipation, inflammatory bowel, hepatitis, peptic ulcer disease, splenic infarction, perforated viscus, vulvitis, ovarian torsion, PID, kidney stone, placenta abruption, this is not meant to be an all-inclusive list - Consultations Consultation #1: Spoke with [facility] who agrees to admit this patient Medical Decision Making - Medical Decision Making 39-year-old female to be admitted for acute on chronic pain exacerbation of pain and concern for abscess at prior surgical site seen on CT scan yesterday patient placed on antibiotics and will admit for observation uncontrolled pain - Lab Data Result diagrams: 10/12/24 20:35 10/12/24 20:35 Lab Results 10/12/24 10/12/24 10/12/24 Range/Units 20:35 20:35 20:35 WBC 9.82 (4.50-10.00) 10*3/uL RBC 4.61 (4.10-5.20) 10*6/uL Hgb 10.3 L (12.0-15.0) g/dL Hct 33.9 L (37.2-46.3) % MCV 73.5 L (80.0-97.0) fL MCH 22.3 L (27.0-32.0) pg MCHC 30.4 L (32.0-37.0) g/dL Plt Count 467 H (140-440) 10*3/uL MPV 9.9 (9.5-12.2) fL Immature Gran % (Auto) 0.2 % Neutrophils % 61.2 % Lymphocytes % 27.6 % Monocytes % 8.1 % Eosinophils % 1.8 % Basophils % 1.1 % Immature Gran # 0.02 (0.00-0.04) 10*3/uL Neutrophils # 6.00 (1.80-7.70) 10*3/uL Lymphocytes # 2.71 (0.90-5.00) 10*3/uL Monocytes # 0.80 (0.20-1.00) 10*3/uL Eosinophils # 0.18 (0.04-0.35) 10*3/uL Basophils # 0.11 H (0.00-0.10) 10*3/uL PT 10.5 (10.0-12.5) sec INR 0.9 (<1.2) APTT 24.5 (22.0-30.0) sec Sodium 141 (137-145) mmol/L Potassium 3.6 (3.5-5.1) mmol/L Chloride 106 (98-107) mmol/L Carbon Dioxide 26 (22-30) mmol/L Anion Gap 9 mmol/L BUN 13 (7-17) mg/dL Creatinine 0.83 (0.52-1.04) mg/dL Est GFR (CKD-EPI)AfAm >90 (>60 ml/min/1.73 sqM) Est GFR (CKD-EPI)NonAf 88 (>60 ml/min/1.73 sqM) Glucose 63 L (74-99) mg/dL Plasma Lactic Acid Yobani (0.7-2.0) mmol/L Calcium 9.7 (8.4-10.2) mg/dL Phosphorus 2.8 (2.5-4.5) mg/dL Magnesium 2.0 (1.6-2.3) mg/dL Total Bilirubin 0.3 (0.2-1.3) mg/dL AST 34 (14-36) U/L ALT 36 H (4-34) U/L Alkaline Phosphatase 82 (38-126) U/L Troponin I (0.000-0.034) ng/mL Total Protein 7.1 (6.3-8.2) g/dL Albumin 4.3 (3.5-5.0) g/dL Lipase 333 H (23-300) U/L 10/12/24 10/12/24 Range/Units 20:35 20:35 WBC (4.50-10.00) 10*3/uL RBC (4.10-5.20) 10*6/uL Hgb (12.0-15.0) g/dL Hct (37.2-46.3) % MCV (80.0-97.0) fL MCH (27.0-32.0) pg MCHC (32.0-37.0) g/dL Plt Count (140-440) 10*3/uL MPV (9.5-12.2) fL Immature Gran % (Auto) % Neutrophils % % Lymphocytes % % Monocytes % % Eosinophils % % Basophils % % Immature Gran # (0.00-0.04) 10*3/uL Neutrophils # (1.80-7.70) 10*3/uL Lymphocytes # (0.90-5.00) 10*3/uL Monocytes # (0.20-1.00) 10*3/uL Eosinophils # (0.04-0.35) 10*3/uL Basophils # (0.00-0.10) 10*3/uL PT (10.0-12.5) sec INR (<1.2) APTT (22.0-30.0) sec Sodium (137-145) mmol/L Potassium (3.5-5.1) mmol/L Chloride (98-107) mmol/L Carbon Dioxide (22-30) mmol/L Anion Gap mmol/L BUN (7-17) mg/dL Creatinine (0.52-1.04) mg/dL Est GFR (CKD-EPI)AfAm (>60 ml/min/1.73 sqM) Est GFR (CKD-EPI)NonAf (>60 ml/min/1.73 sqM) Glucose (74-99) mg/dL Plasma Lactic Acid Yobani 1.5 (0.7-2.0) mmol/L Calcium (8.4-10.2) mg/dL Phosphorus (2.5-4.5) mg/dL Magnesium (1.6-2.3) mg/dL Total Bilirubin (0.2-1.3) mg/dL AST (14-36) U/L ALT (4-34) U/L Alkaline Phosphatase (38-126) U/L Troponin I <0.012 (0.000-0.034) ng/mL Total Protein (6.3-8.2) g/dL Albumin (3.5-5.0) g/dL Lipase (23-300) U/L - EKG Data -: EKG Interpreted by Me (EKG is sinus 68 CT 170 QRS 98 QTc 405) Disposition Clinical Impression: Postoperative pain, Postoperative seroma, Panniculitis, Intractable abdominal pain, Incisional abscess Disposition: ADMITTED IP TO THIS [facility] Condition: Fair Is patient prescribed a controlled substance at d/c from ED?: No Referrals: Alfred Varela [Primary Care Provider] - 1-2 days Time of Disposition: 21:45
[2024-10-12] MEDS: SODIUM CHLORIDE 0.9% 1,000 ML IV ONE (20:56)
[2024-10-12] MEDS: ONDANSETRON 4 MG/2 ML VIAL IVP STA (20:58)
[2024-10-12] MEDS: HYDROmorphone 1 MG/ML 1 ML SYRINGE IVP STA (21:00)
[2024-10-12 21:03] LABS: Basophils # (A) 0.11 10*3/uL (0.00-0.10); Basophils % (A) 1.1 %; Eosinophils # (A) 0.18 10*3/uL (0.04-0.35); Eosinophils % (A) 1.8 %; HCT 33.9 % (37.2-46.3); HGB 10.3 g/dL (12.0-15.0); Lymphocytes # (A) 2.71 10*3/uL (0.90-5.00); Lymphocytes % (A) 27.6 %; MCH 22.3 pg (27.0-32.0); MCHC 30.4 g/dL (32.0-37.0); MCV 73.5 fL (80.0-97.0); Mean Platelet Volume 9.9 fL (9.5-12.2); Monocytes % (A) 8.1 %; Neutrophils % (A) 61.2 %; Platelet Count 467 10*3/uL (140-440); RBC 4.61 10*6/uL (4.10-5.20); RDW 16.9 % (11.5-14.5); WBC 9.82 10*3/uL (4.50-10.00)
[2024-10-12 21:12] LABS: ALT 36 U/L (4-34); AST 34 U/L (14-36); African American GFR (CKD) >90 (>60 ml/min/1.73 sqM); Albumin 4.3 g/dL (3.5-5.0); Alkaline Phosphatase 82 U/L (38-126); Anion Gap 9 mmol/L; Blood Urea Nitrogen 13 mg/dL (7-17); Calcium 9.7 mg/dL (8.4-10.2); Carbon Dioxide 26 mmol/L (22-30); Chloride 106 mmol/L (98-107); Glucose 63 mg/dL (74-99); INR 0.9 (<1.2); Lipase 333 U/L (23-300); Non-African American GFR(CKD) 88 (>60 ml/min/1.73 sqM); Partial Thromboplastin Time 24.5 sec (22.0-30.0); Phosphorus 2.8 mg/dL (2.5-4.5); Potassium 3.6 mmol/L (3.5-5.1); Prothrombin Time 10.5 sec (10.0-12.5); Sodium 141 mmol/L (137-145); Total Bilirubin 0.3 mg/dL (0.2-1.3); Total Protein 7.1 g/dL (6.3-8.2)
[2024-10-12] MEDS ORDERED: VANCOMYCIN IV PER PHARMACY 1 EACH MISC MISCELLANE PRN (21:41)
[2024-10-12] MEDS ORDERED: NALOXONE 0.4 MG/ML 1 ML VIAL IV PRN (21:41)
[2024-10-12] MEDS: SODIUM CHLORIDE 0.9% 1,000 ML IV SCH (22:07)
[2024-10-12] MEDS: VANCOMYCIN 1,500 MG in SODIUM CHLORIDE 0.9% 500 ML 500 ML IVPB ONE (22:13)
[2024-10-12 22:38] LABS: Glucose,Whole Blood 66 mg/dL (70-110)
[2024-10-12 22:54] LABS: Glucose,Whole Blood 76 mg/dL (70-110)
[2024-10-12] MEDS: HYDROmorphone 1 MG/ML 1 ML SYRINGE IVP PRN (23:52)
[2024-10-13] MEDS ORDERED: tiZANidine 4 MG TAB PO PRN (01:20)
[2024-10-13] MEDS ORDERED: METOCLOPRAMIDE 10 MG TAB PO PRN (01:20)
[2024-10-13] MEDS ORDERED: FLUCONAZOLE 100 MG TAB PO PRN (01:20)
[2024-10-13] MEDS ORDERED: [UNRECOGNIZED DRUG - OTHER] PO PRN (01:20)
[2024-10-13] MEDS ORDERED: hydrOXYzine HCL 25 MG TAB PO PRN (01:20)
[2024-10-13] MEDS: KETOROLAC 15 MG/ML 1 ML VIAL IVP STA (01:27)
[2024-10-13] MEDS: ALPRAZolam 0.5 MG TAB PO PRN (02:32)
[2024-10-13 05:52] LABS: Basophils # (A) 0.08 10*3/uL (0.00-0.10); Eosinophils # (A) 0.35 10*3/uL (0.04-0.35); Eosinophils % (A) 4.5 %; HCT 31.4 % (37.2-46.3); HGB 9.4 g/dL (12.0-15.0); Lymphocytes # (A) 3.32 10*3/uL (0.90-5.00); Lymphocytes % (A) 43.1 %; MCHC 29.9 g/dL (32.0-37.0); MCV 73.5 fL (80.0-97.0); Mean Platelet Volume 9.8 fL (9.5-12.2); Monocytes # (A) 0.68 10*3/uL (0.20-1.00); Monocytes % (A) 8.8 %; Neutrophils # (A) 3.26 10*3/uL (1.80-7.70); Neutrophils % (A) 42.3 %; Platelet Count 401 10*3/uL (140-440); RBC 4.27 10*6/uL (4.10-5.20); RDW 16.9 % (11.5-14.5); WBC 7.71 10*3/uL (4.50-10.00)
[2024-10-13 06:09] LABS: ALT 31 U/L (4-34); AST 31 U/L (14-36); African American GFR (CKD) >90 (>60 ml/min/1.73 sqM); Albumin 3.6 g/dL (3.5-5.0); Alkaline Phosphatase 75 U/L (38-126); Anion Gap 7 mmol/L; Blood Urea Nitrogen 12 mg/dL (7-17); Calcium 9.1 mg/dL (8.4-10.2); Carbon Dioxide 24 mmol/L (22-30); Chloride 109 mmol/L (98-107); Glucose 92 mg/dL (74-99); Magnesium 1.9 mg/dL (1.6-2.3); Non-African American GFR(CKD) >90 (>60 ml/min/1.73 sqM); Phosphorus 2.9 mg/dL (2.5-4.5); Potassium 3.9 mmol/L (3.5-5.1); Sodium 140 mmol/L (137-145); Total Bilirubin 0.4 mg/dL (0.2-1.3); Total Protein 6.3 g/dL (6.3-8.2)
[2024-10-13] MEDS: LEVOTHYROXINE 50 MCG TAB PO SCH (06:09)
[2024-10-13 06:18] LABS: Glucose,Whole Blood 96 mg/dL (70-110)
[2024-10-13] MEDS: LORATADINE 10 MG TAB PO SCH (07:49)
[2024-10-13] MEDS: PREGABALIN 75 MG CAP PO SCH (07:49)
[2024-10-13] MEDS: FUROSEMIDE 20 MG TAB PO SCH (07:49)
[2024-10-13] MEDS: POTASSIUM CHLORIDE ER 10 MEQ TAB.ER.PRT PO SCH (07:49)
[2024-10-13] MEDS: VANCOMYCIN 1,500 MG in SODIUM CHLORIDE 0.9% 500 ML 500 ML IVPB SCH (09:31)
[2024-10-13] MEDS: PANTOPRAZOLE 40 MG/10 ML VIAL IV SCH (09:31)
[2024-10-13] MEDS ORDERED: metroNIDAZOLE-NS PMX 500 MG in SALINE 1 100ML.BAG IVPB SCH (10:15)
[2024-10-13] MEDS: ENOXAPARIN 40 MG/0.4 ML SYRINGE SQ SCH (10:57)
[2024-10-13 11:16] LABS: Glucose,Whole Blood 89 mg/dL (70-110)
--- NOTE | 2024-10-13 11:42 | P.GSCN ---
History of Present Illness Consult date: 10/13/24 History of present illness: CHIEF COMPLAINT: Right lower abdominal pain HISTORY OF PRESENT ILLNESS: This is a 39-year-old female with a known history of a sleeve gastrectomy in May 2021 and a panniculectomy in June [id number] and developed a chronic wound in the incision site on the left side of the abdomen. That wound has healed. However, starting on Sunday she started having the sharp pains right lower abdomen at the panniculectomy incision site. She re ports no drainage. She reports severe pain that does bring her to her knees and causes nausea. She came into the ER initially on 530 and had a CAT scan done on 531 that had reported subcutaneous collection anterior abdominal wall fluid measuring 6.6 x 1.2 x 4.3 cm concerns for subcutaneous abscess. Patient reports being discharged with instructions to follow-up outpatient. Patient had to return to the ER due to increased abdominal pain. She denies any fever. White count normal at 7.71. PAST MEDICAL HISTORY: See below PAST SURGICAL HISTORY: See below MEDICATIONS: See below ALLERGIES: See below SOCIAL HISTORY: No illicit drug use. REVIEW OF SYSTEMS: CONSTITUTIONAL: Denies fever or chills. HEENT: Denies blurred vision, vision changes, or eye pain. Denies hemoptysis CARDIOVASCULAR: Denies chest pain or pressure. RESPIRATORY: No shortness of breath. GASTROINTESTINAL: See HPI for pertinent findings HEMATOLOGIC: Denies bleeding disorders. GENITOURINARY: Denies any blood in urine or increased urinary frequency. SKIN: Denies pruitis. Denies rash. PHYSICAL EXAM: VITAL SIGNS: Reviewed GENERAL: Well-developed in no acute distress. HEENT: No sclera icterus. Extraocular movements grossly intact. Moist buccal mucosa. Head is atraumatic, normocephalic. No nasal drainage. ABDOMEN: Soft. Obese. Nondistended. Tenderness right lower quadrant at panniculectomy incision site. No erythema. No drainage. Left side of the panniculectomy incision site has healed. There is still small opening but no drainage. NEUROLOGIC: Alert and oriented. Cranial nerves II through XII grossly intact. LABORATORY DATA: WBC 7.71 Hgb 9.4 platelets 401 Sodium 140 potassium 3.9 creatinine 0.69 Lactic acid 1.5 IMAGING: CT scan abdomen pelvis reports subcutaneous collection in the anterior abdominal wall which measures approximately 6.6 x 1.2 x 4.3 cm concerning for subcutaneous abscess. Seroma is less likely given the thickened capsule surrounding the fluid. ASSESSMENT: 1. Seroma. CT scan with subcutaneous fluid collection in the anterior abdominal wall measuring 6.6 x 1.2 x 4.3 cm PLAN: - CT scan results reviewed with Dr. Meadows - Consult IR service for possible drainage of seroma - Okay to resume regular diet - Continue pain management - Continue antibiotics Physician Door Person note has been reviewed by physician. Signing provider agrees with the documented findings, assessment, and plan of care. Past Medical History Past Medical History: Asthma, Diabetes Mellitus, Fibromyalgia, GERD/Reflux, Sleep Apnea/CPAP/BIPAP, Thyroid Disorder Additional Past Medical History / Comment(s): Migraines with aura, DDD, NIDDM type II- Per Dr no longer considered diabetic due to weight loss surgery + i mproved A1C, diverticulitis with perforation/colostomy since reversed, IBS, chronic seroma, CARLITOS/no device-improvement since surgery , polycystic ovaries, hypothyroid, season allergies History of Any Multi-Drug Resistant Organisms: None Reported Past Surgical History: Bariatric Surgery, Cholecystectomy, Hernia Repair, Hysterectomy, Uterine Ablation Additional Past Surgical History / Comment(s): 06/06/21 sleeve gastrectomy, Rt Breast biopsy. bowel resection with colostomy/ later colostomy reversal, abdominal surgery to remove scar tissue, EGD, colonoscopy, lower back pain procedures, uterine ablation, lysis of adhesions 07/11/22, 02/04/24-laparscopic hysterectomy. panniculectomy 06-30-24 Past Anesthesia/Blood Transfusion Reactions: No Reported Reaction Additional Past Anesthesia/Blood Transfusion Reaction / Comm: No reaction w/ blood Past Psychological History: Anxiety, Bipolar, Depression Additional Psychological History / Comment(s): Pt has eating disorder-binge eater, borderline personality disorder. Pt resides with her boyfriend and his mother. She is independent. Smoking Status: Never smoker Past Alcohol Use History: Rare Additional Past Alcohol Use History / Comment(s): 2 drinks/month Past Drug Use History: None Reported - Past Family History Mother History Unknown: Yes Family Medical History: COPD Additional Family Medical History / Comment(s): Mother from COPD at the age of 55 yrs. Maternal grandmother - esophageal cancer Brother(s) Family Medical History: Diabetes Mellitus Father Family Medical History: Unable to Obtain Medications and Allergies Home Medications Medication Instructions Recorded Confirmed Type Levothyroxine Sodium [Synthroid] 50 mcg PO DAILY 05/05/14 10/13/24 History Cetirizine HCl [Zyrtec] 10 mg PO DAILY 08/30/19 10/13/24 History Nystatin 100,000 Unit/gm Powd 1 applic TOPICAL BID PRN 12/12/21 10/13/24 History [Mycostatin Powder] Ergocalciferol (Vitamin D2) 1,250 mcg PO GARCIA 05/19/22 10/13/24 History [Drisdol (50,000 Iu)] Fluconazole 200 mg PO DAILY PRN 05/19/22 10/13/24 History Acetaminophen Tab [Tylenol] 650 mg PO Q6H PRN 10/02/22 10/13/24 History Lasmiditan Succinate [Reyvow] 50 mg PO DAILY PRN 10/02/22 10/13/24 History Metoclopramide [Reglan] 10 mg PO DAILY PRN 10/02/22 10/13/24 History Ketorolac [Toradol] 10 mg PO Q6HR PRN 10/30/22 10/13/24 History HYDROcodone/APAP 10-325MG [[place] 1 tab PO BID PRN 11/19/23 10/13/24 History 10-325] hydrOXYzine HCL [Atarax] 100 mg PO HS PRN 04/28/24 10/13/24 History tiZANidine [Zanaflex] 2 mg PO HS PRN 04/28/24 10/13/24 History Dextroamphetamine/Amphetamine 40 mg PO DAILY 06/27/24 10/13/24 History [Adderall] Pregabalin [Lyrica] 225 mg PO BID 07/31/24 10/13/24 History buPROPion XL [Wellbutrin XL] 300 mg PO HS 07/31/24 10/13/24 History Furosemide [Lasix] 20 mg PO BID 08/27/24 10/13/24 History Potassium Chloride ER [K-Dur 10] 1 tab PO DAILY 09/01/24 10/13/24 History ALPRAZolam [Xanax] 0.5 mg PO BID PRN 10/13/24 10/13/24 History DULoxetine HCL [Cymbalta] 60 mg PO HS 10/13/24 10/13/24 History Allergies Allergy/AdvReac Type Severity Reaction Status Date / Time cephalexin [From Keflex] Allergy Rash/Hives Verified 10/13/24 10:39 codeine AdvReac Hallucinati Verified 10/13/24 10:39 ons tramadol AdvReac Hallucinati Verified 10/13/24 10:39 ons valacyclovir HCl AdvReac BLURRED Verified 10/13/24 10:39 [From Valtrex] VISION Surgical - Exam Vital Signs Temp Pulse Resp BP Pulse Ox 97.8 F 89 20 128/82 99 10/12/24 19:53 10/12/24 19:53 10/12/24 19:53 10/12/24 19:53 10/12/24 19:53 Results - Labs 10/13/24 05:18 10/13/24 05:18 Abnormal Lab Results - Last 24 Hours (Table) 10/12/24 10/12/24 10/12/24 Range/Units 20:35 20:35 22:36 Hgb 10.3 L (12.0-15.0) g/dL Hct 33.9 L (37.2-46.3) % MCV 73.5 L (80.0-97.0) fL MCH 22.3 L (27.0-32.0) pg MCHC 30.4 L (32.0-37.0) g/dL Plt Count 467 H (140-440) 10*3/uL Basophils # 0.11 H (0.00-0.10) 10*3/uL Chloride (98-107) mmol/L Glucose 63 L (74-99) mg/dL POC Glucose (mg/dL) 66 L (70-110) mg/dL ALT 36 H (4-34) U/L Lipase 333 H (23-300) U/L 10/13/24 10/13/24 Range/Units 05:18 05:18 Hgb 9.4 L (12.0-15.0) g/dL Hct 31.4 L (37.2-46.3) % MCV 73.5 L (80.0-97.0) fL MCH 22.0 L (27.0-32.0) pg MCHC 29.9 L (32.0-37.0) g/dL Plt Count (140-440) 10*3/uL Basophils # (0.00-0.10) 10*3/uL Chloride 109 H (98-107) mmol/L Glucose (74-99) mg/dL POC Glucose (mg/dL) (70-110) mg/dL ALT (4-34) U/L Lipase (23-300) U/L Diabetes panel 10/12/24 10/13/24 Range/Units 20:35 05:18 Sodium 141 140 (137-145) mmol/L Potassium 3.6 3.9 (3.5-5.1) mmol/L Chloride 106 109 H (98-107) mmol/L Carbon Dioxide 26 24 (22-30) mmol/L BUN 13 12 (7-17) mg/dL Creatinine 0.83 0.69 (0.52-1.04) mg/dL Glucose 63 L 92 (74-99) mg/dL Calcium 9.7 9.1 (8.4-10.2) mg/dL AST 34 31 (14-36) U/L ALT 36 H 31 (4-34) U/L Alkaline Phosphatase 82 75 (38-126) U/L Total Protein 7.1 6.3 (6.3-8.2) g/dL Albumin 4.3 3.6 (3.5-5.0) g/dL Calcium panel 10/12/24 10/13/24 Range/Units 20:35 05:18 Calcium 9.7 9.1 (8.4-10.2) mg/dL Phosphorus 2.8 2.9 (2.5-4.5) mg/dL Albumin 4.3 3.6 (3.5-5.0) g/dL Pituitary panel 10/12/24 10/13/24 Range/Units 20:35 05:18 Sodium 141 140 (137-145) mmol/L Potassium 3.6 3.9 (3.5-5.1) mmol/L Chloride 106 109 H (98-107) mmol/L Carbon Dioxide 26 24 (22-30) mmol/L BUN 13 12 (7-17) mg/dL Creatinine 0.83 0.69 (0.52-1.04) mg/dL Glucose 63 L 92 (74-99) mg/dL Calcium 9.7 9.1 (8.4-10.2) mg/dL Adrenal panel 10/12/24 10/13/24 Range/Units 20:35 05:18 Sodium 141 140 (137-145) mmol/L Potassium 3.6 3.9 (3.5-5.1) mmol/L Chloride 106 109 H (98-107) mmol/L Carbon Dioxide 26 24 (22-30) mmol/L BUN 13 12 (7-17) mg/dL Creatinine 0.83 0.69 (0.52-1.04) mg/dL Glucose 63 L 92 (74-99) mg/dL Calcium 9.7 9.1 (8.4-10.2) mg/dL Total Bilirubin 0.3 0.4 (0.2-1.3) mg/dL AST 34 31 (14-36) U/L ALT 36 H 31 (4-34) U/L Alkaline Phosphatase 82 75 (38-126) U/L Total Protein 7.1 6.3 (6.3-8.2) g/dL Albumin 4.3 3.6 (3.5-5.0) g/dL
[2024-10-13] MEDS: metroNIDAZOLE-NS PMX 500 MG in SALINE 1 100ML.BAG IVPB SCH (12:50)
[2024-10-13] MEDS ORDERED: ALPRAZolam 0.5 MG TAB PO PRN (14:17)
[2024-10-13] MEDS ORDERED: DEXTROSE 50% SYRINGE 50 ML IVP PRN ×2 (14:20)
--- NOTE | 2024-10-13 14:30 | P.HPIM ---
History of Present Illness H&P Date: 10/13/24 Patient is a 39-year-old female with asthma, diabetes, fibromyalgia, GERD, CARLITOS, hypothyroidism, history of sleeve gastrectomy and diverticulitis with bowel resection and colostomy with reversal here for abdominal pain. Patient reported that her abdominal pain worsened over the last day and a half and she sought care in the ED a day prior 10/11 and was told to return if she had worsening fever or chills or significant nausea or vomiting. Her abdominal pain did not improve and she had 1 episode of vomiting which led her to seek care. CT scan of abdomen and pelvis done yesterday 10/10 showed subcutaneous collection of an abscess proximally 6.6 x 1.2 x 4.3 cm. She denied chest pain, palpitations, changes in defecation, hematochezia, hematemesis, jaundice. On admission: Vitals: Temperature 97.8 F, pulse rate 89, respiratory rate 20, BP 128/82, O2 saturation 99% on room air Labs: WBC 9.8, hemoglobin 10.3, platelet count 467,000, sodium 141, potassium 3.6, bicarb 26, chloride 106, BUN 13, creatinine 0.93, glucose 63, lactic acid 1.5, calcium 9.7, phosphorus 2.8, magnesium 2, lipase 333, CRP 0.7. Liver enzyme profile showed ALT 36, AST and ALP normal. Coagulation panel normal. Imaging: EKG showed sinus rhythm with a rate of 68, no ST-T changes, QTc 405 MS. ED documentation reviewed. Initiated pain control. Review of systems: Pertinent positives and negatives as discussed in HPI, a complete review of systems was performed and all other systems are negative. Physical examination: Vital signs reviewed General: non toxic, no distress, appears at stated age, on room air Derm: no unusual rashes/lesions, warm Head: atraumatic, normocephalic, symmetric Eyes: EOMI, anicteric sclera, pupils equal round reactive to light ENT: Nose and ears atraumatic Neck: No cervical lymphadenopathy, trachea midline, supple Mouth: no lip lesion, mucus membranes moist Cardiovascular: S1S2 reg, no murmur Lungs: CTA bilateral, no rhonchi, no rales, no accessory muscle use Abdominal: soft, nondistended, right lower quadrant mass that is soft and mobile with an associated tenderness on light palpation, no guarding Ext: muscle strength 5 out of 5 in all 4 extremities grossly, no gross muscle atrophy, no contractures, positive dorsalis pedis pulse bilateral, no edema Neuro: CN II-XI grossly intact, no gross focal neuro deficits Psych: Alert and oriented x 3, appropriate affect and mood Assessment/Plan: 39-year-old female with diabetes, GERD, hypothyroidism history of sleeve gastrectomy and bowel resection and colostomy with reversal here for tractable abdominal pain. Subcutaneous abdominal abscess found on imaging. The patient is admitted with an anticipated greater than 2 midnight stay for evaluation of subcutaneous abscess Active: #. Abdominal subcutaneous abscess CT scan of abdomen and pelvis done yesterday 10/10 showed subcutaneous collection of fluid with thickened capsule, likley an abscess proximally 6.6 x 1.2 x 4.3 cm Patient not febrile on admission. White count WNL Currently on vancomycin IVPB by the ED. Switch antibiotics to IV ceftriaxone and flagyl. Currently on pain control and IV Dilaudid. Surgery consulted. Plan for possible drainage. #. Microcytic anemia anemia Hemoglobin 10.3 on admission Patient is symptomatic at this time. No bruising or bleeding on evaluation. Check CBC, iron studies Chronic Conditions: #. Asthma #. Diabetes, not on home meds, controlled #. Fibromyalgia #. GERD #. CARLITOS #. Hypothyroidism -Continue home Wellbutrin 300 mg p.o., Diflucan 200 mg as needed, Atarax 100 mg p.o. as needed, levothyroxine 50 mcg daily, Claritin 10 mg p.o. daily, Reglan 10 mg p.o. daily as needed, Zanaflex 2 mg as needed -Glucose Accu-Cheks ACHS -Initiate Insulin sliding scale ACHS -Monitor for hypoglycemia DVT ppx: Lovenox 40 mg subcu daily CODE STATUS: Full Discussed with: Patient Anticipated discharge place: Home Rachel Mcdaniel MD PGY-1 Internal Medicine Dictation was produced using [employer] dictation software. please excuse any grammatical, word or spelling errors. Attestation: I have seen and examined this patient with my resident, assessment and plan discussed with the resident, agree with assessment and plan as written above. Dr. Donis Past Medical History Past Medical History: Asthma, Diabetes Mellitus, Fibromyalgia, GERD/Reflux, S leep Apnea/CPAP/BIPAP, Thyroid Disorder Additional Past Medical History / Comment(s): Migraines with aura, DDD, NIDDM type II- Per Dr no longer considered diabetic due to weight loss surgery + improved A1C, diverticulitis with perforation/colostomy since reversed, IBS, chronic seroma, CARLITOS/no device-improvement since surgery , polycystic ovaries, hypothyroid, season allergies History of Any Multi-Drug Resistant Organisms: None Reported Past Surgical History: Bariatric Surgery, Cholecystectomy, Hernia Repair, Hysterectomy, Uterine Ablation Additional Past Surgical History / Comment(s): 06/06/21 sleeve gastrectomy, Rt Breast biopsy. bowel resection with colostomy/ later colostomy reversal, abdom inal surgery to remove scar tissue, EGD, colonoscopy, lower back pain procedures, uterine ablation, lysis of adhesions 07/11/22, 02/04/24-laparscopic hysterectomy. panniculectomy 06-30-24 Past Anesthesia/Blood Transfusion Reactions: No Reported Reaction Additional Past Anesthesia/Blood Transfusion Reaction / Comment(s): No reaction w/ blood Past Psychological History: Anxiety, Bipolar, Depression Additional Psychological History / Comment(s): Pt has eating disorder-binge eater, borderline personality disorder. Pt resides with her boyfriend and his mother. She is independent. Smoking Status: Never smoker Past Alcohol Use History: Rare Additional Past Alcohol Use History / Comment(s): 2 drinks/month Past Drug Use History: None Reported - Past Family History Mother History Unknown: Yes Family Medical History: COPD Additional Family Medical History / Comment(s): Mother from COPD at the age of 55 yrs. Maternal grandmother - esophageal cancer Brother(s) Family Medical History: Diabetes Mellitus Father Family Medical History: Unable to Obtain Medications and Allergies Home Medications Medication Instructions Recorded Confirmed Type Levothyroxine Sodium [Synthroid] 50 mcg PO DAILY 05/05/14 10/13/24 History Cetirizine HCl [Zyrtec] 10 mg PO DAILY 08/30/19 10/13/24 History Nystatin 100,000 Unit/gm Powd 1 applic TOPICAL BID PRN 12/12/21 10/13/24 History [Mycostatin Powder] Ergocalciferol (Vitamin D2) 1,250 mcg PO GARCIA 05/19/22 10/13/24 History [Drisdol (50,000 Iu)] Fluconazole 200 mg PO DAILY PRN 05/19/22 10/13/24 History Acetaminophen Tab [Tylenol] 650 mg PO Q6H PRN 10/02/22 10/13/24 History Lasmiditan Succinate [Reyvow] 50 mg PO DAILY PRN 10/02/22 10/13/24 History Metoclopramide [Reglan] 10 mg PO DAILY PRN 10/02/22 10/13/24 History Ketorolac [Toradol] 10 mg PO Q6HR PRN 10/30/22 10/13/24 History HYDROcodone/APAP 10-325MG [[place] 1 tab PO BID PRN 11/19/23 10/13/24 History 10-325] hydrOXYzine HCL [Atarax] 100 mg PO HS PRN 04/28/24 10/13/24 History tiZANidine [Zanaflex] 2 mg PO HS PRN 04/28/24 10/13/24 History Dextroamphetamine/Amphetamine 40 mg PO DAILY 06/27/24 10/13/24 History [Adderall] Pregabalin [Lyrica] 225 mg PO BID 07/31/24 10/13/24 History buPROPion XL [Wellbutrin XL] 300 mg PO HS 07/31/24 10/13/24 History Furosemide [Lasix] 20 mg PO BID 08/27/24 10/13/24 History Potassium Chloride ER [K-Dur 10] 1 tab PO DAILY 09/01/24 10/13/24 History ALPRAZolam [Xanax] 0.5 mg PO BID PRN 10/13/24 10/13/24 History DULoxetine HCL [Cymbalta] 60 mg PO HS 10/13/24 10/13/24 History Allergies Allergy/AdvReac Type Severity Reaction Status Date / Time cephalexin [From Keflex] Allergy Rash/Hives Verified 10/13/24 10:39 codeine AdvReac Hallucinati Verified 10/13/24 10:39 ons tramadol AdvReac Hallucinati Verified 10/13/24 10:39 ons valacyclovir HCl AdvReac BLURRED Verified 10/13/24 10:39 [From Valtrex] VISION Physical Exam Vitals: Vital Signs Temp Pulse Pulse Resp BP BP Pulse Ox 10/13/24 07:01 97.6 F 64 15 100/64 94 L 10/12/24 23:56 97.8 F 66 17 132/79 95 10/12/24 23:15 65 18 114/83 100 10/12/24 19:53 97.8 F 89 20 128/82 99 Intake and Output 10/12/24 10/13/24 10/13/24 22:59 06:59 14:59 Other: # Voids 2 Weight 95.254 kg 95.254 kg Results CBC & Chem 7: 10/13/24 05:18 10/13/24 05:18 Labs: Abnormal Lab Results - Last 24 Hours (Table) 10/12/24 10/12/24 10/12/24 Range/Units 20:35 20:35 22:36 Hgb 10.3 L (12.0-15.0) g/dL Hct 33.9 L (37.2-46.3) % MCV 73.5 L (80.0-97.0) fL MCH 22.3 L (27.0-32.0) pg MCHC 30.4 L (32.0-37.0) g/dL Plt Count 467 H (140-440) 10*3/uL Basophils # 0.11 H (0.00-0.10) 10*3/uL Chloride (98-107) mmol/L Glucose 63 L (74-99) mg/dL POC Glucose (mg/dL) 66 L (70-110) mg/dL ALT 36 H (4-34) U/L Lipase 333 H (23-300) U/L 10/13/24 10/13/24 Range/Units 05:18 05:18 Hgb 9.4 L (12.0-15.0) g/dL Hct 31.4 L (37.2-46.3) % MCV 73.5 L (80.0-97.0) fL MCH 22.0 L (27.0-32.0) pg MCHC 29.9 L (32.0-37.0) g/dL Plt Count (140-440) 10*3/uL Basophils # (0.00-0.10) 10*3/uL Chloride 109 H (98-107) mmol/L Glucose (74-99) mg/dL POC Glucose (mg/dL) (70-110) mg/dL ALT (4-34) U/L Lipase (23-300) U/L Thrombosis Risk Factor Assmnt - Choose All That Apply Any of the Below Risk Factors Present?: Yes Each Factor Represents 1 point: Age 41-60 years, Obesity (BMI >25) Thrombosis Risk Factor Assessment Total Risk Factor Score: 2 Thrombosis Risk Factor Assessment Level: Low Risk
--- NOTE | 2024-10-13 15:03 | US ---
EXAMINATION TYPE: US guided soft tissue drainage DATE OF EXAM: 10/13/2024 2:26 PM CLINICAL INDICATION:Female, 39 years old with history of right pleural effusion COMPARISON: 10/10/2024 TECHNIQUE: Ultrasound-guided drainage tube insertion. PROCEDURE: Informed consent was obtained. Safe access in the abdomen was identified via ultrasound. The safest a llowable access to the to the fluid collection was noted in the mid lower abdomen. The patient was th en prepped and draped in the usual sterile fashion. Local anesthesia was provided. Trocar technique w as used with a 8-German pigtail catheter placed into subcutaneous fluid collection. Placement was co nfirmed with ultrasound guidance. Approximately 15 mL was drained and sent to the lab for analysis. A water sealed container was then hooked up. The tubing was affixed to the skin. There was no blood loss and post-procedure hemostasis was achieved. The patient tolerated the procedure well without complication. Patient was transferr ed to the general medical floor in stable condition. IMPRESSION: Successful 8 German tube placement within the pleural space which was left in place. [facility], , 10/13/2024 3:01 PM
[2024-10-13 16:20] LABS: Glucose,Whole Blood 97 mg/dL (70-110)
[2024-10-13] MEDS: INSULIN LISPRO (HumaLOG) 100 UNIT/ML 10 mL VL SQ SCH (16:46)
[2024-10-13 19:59] LABS: Glucose,Whole Blood 91 mg/dL (70-110)
[2024-10-13] MEDS: DULoxetine HCL 60 MG CAPSULE.DR PO SCH (21:18)
[2024-10-13] MEDS: buPROPion XL 300 MG TAB.ER.24H PO SCH (21:18)
[2024-10-13] MEDS: ONDANSETRON 4 MG/2 ML VIAL IVP PRN (21:20)
[2024-10-14 04:38] LABS: Basophils # (A) 0.08 10*3/uL (0.00-0.10); Basophils % (A) 1.7 %; Eosinophils # (A) 0.31 10*3/uL (0.04-0.35); Eosinophils % (A) 6.4 %; HCT 30.2 % (37.2-46.3); HGB 8.9 g/dL (12.0-15.0); Lymphocytes # (A) 2.24 10*3/uL (0.90-5.00); Lymphocytes % (A) 46.6 %; MCH 22.3 pg (27.0-32.0); MCHC 29.5 g/dL (32.0-37.0); MCV 75.5 fL (80.0-97.0); Mean Platelet Volume 9.7 fL (9.5-12.2); Monocytes # (A) 0.39 10*3/uL (0.20-1.00); Monocytes % (A) 8.1 %; Neutrophils # (A) 1.78 10*3/uL (1.80-7.70); Platelet Count 348 10*3/uL (140-440); RDW 17.3 % (11.5-14.5); WBC 4.81 10*3/uL (4.50-10.00)
[2024-10-14 04:41] LABS: African American GFR (CKD) >90 (>60 ml/min/1.73 sqM); Non-African American GFR(CKD) >90 (>60 ml/min/1.73 sqM)
[2024-10-14 04:43] LABS: African American GFR (CKD) >90 (>60 ml/min/1.73 sqM); Anion Gap 6 mmol/L; Blood Urea Nitrogen 9 mg/dL (7-17); Calcium 8.8 mg/dL (8.4-10.2); Carbon Dioxide 27 mmol/L (22-30); Chloride 104 mmol/L (98-107); Glucose 84 mg/dL (74-99); Non-African American GFR(CKD) >90 (>60 ml/min/1.73 sqM); Potassium 3.7 mmol/L (3.5-5.1); Sodium 137 mmol/L (137-145)
[2024-10-14 06:07] LABS: Glucose,Whole Blood 107 mg/dL (70-110)
[2024-10-14 08:22] LABS: % Iron Saturation 5.21 (12.00-45.00); Ferritin 17.9 ng/mL (10.0-291.0); Iron 20 UG/DL (50-170); Total Iron Binding Capacity 384 UG/DL (228-460)
[2024-10-14 11:31] LABS: Glucose,Whole Blood 111 mg/dL (70-110)
[2024-10-14] MEDS ORDERED: ETODOLAC 400 MG TAB PO PRN (11:42)
--- NOTE | 2024-10-14 13:20 | P.PN ---
Subjective Progress Note Date: 10/14/24 SURGICAL PROGRESS NOTE CHIEF COMPLAINT: Seroma HISTORY OF PRESENT ILLNESS: Patient is status post drain placement of her seroma. Drainage fluid is serosanguineous in color. She reports improvement in the pressure in that right lower abdomen. But she still complains of pain requiring the use of IV Dilaudid. Afebrile. WBC 4.81 Hgb 9.4 down to 8.9 Patient seen and examined with Dr. Meadows PHYSICAL EXAM: VITAL SIGNS: Reviewed. GENERAL: Well-developed in no acute distress. HEENT: No sclera icterus. Extraocular movements grossly intact. Moist buccal mucosa. Head is atraumatic, normocephalic. ABDOMEN: Soft. Nondistended. Tenderness right lower abdomen. Drain in place with serosanguineous drainage NEUROLOGIC: Alert and oriented. Cranial nerves II through XII grossly intact. ASSESSMENT: 1. Seroma status post drain placement PLAN: - Resume oral pain medication - Anticipate discharge tomorrow - Continue regular diet Physician Director Of Workforce Development note has been reviewed by physician. Signing provider agrees with the documented findings, assessment, and plan of care. Objective - Vital Signs Vital signs: Vital Signs Temp 97.7 F 10/14/24 07:00 Pulse 74 10/14/24 07:00 Resp 16 10/14/24 11:03 BP 95/63 10/14/24 07:00 Pulse Ox 97 10/14/24 07:00 FiO2 Intake & Output 10/13/24 10/14/24 10/14/24 18:59 06:59 18:59 Intake Total 298 120 Output Total 30 Balance 298 90 Intake: Oral 298 120 Output: Drainage 30 abdomen 30 Other: # Voids 4 2 - Labs CBC & Chem 7: 10/14/24 03:42 10/14/24 03:42 Labs: Abnormal Lab Results - Last 24 Hours (Table) 10/14/24 10/14/24 10/14/24 Range/Units 03:42 03:42 11:30 RBC 4.00 L (4.10-5.20) 10*6/uL Hgb 8.9 L (12.0-15.0) g/dL Hct 30.2 L (37.2-46.3) % MCV 75.5 L (80.0-97.0) fL MCH 22.3 L (27.0-32.0) pg MCHC 29.5 L (32.0-37.0) g/dL RDW 17.3 H (11.5-14.5) % Neutrophils # 1.78 L (1.80-7.70) 10*3/uL POC Glucose (mg/dL) 111 H (70-110) mg/dL Iron 20 L (50-170) UG/DL % Saturation 5.21 L (12.00-45.00) Microbiology - Last 24 Hours (Table) 10/12/24 20:35 Blood Culture - Preliminary Blood
[2024-10-14] MEDS: HYDROcodone/APAP 10-325MG 1 EACH TAB PO PRN (13:51)
[2024-10-14 15:34] LABS: Reticulocyte % 0.96 % (0.10-1.80)
--- NOTE | 2024-10-14 15:40 | P.PN ---
Subjective Progress Note Date: 10/14/24 Patient is a 39-year-old female with asthma, diabetes, fibromyalgia, GERD, CARLITOS, hypothyroidism, history of sleeve gastrectomy and diverticulitis with bowel resection and colostomy with reversal here for abdominal pain. Patient reported that her abdominal pain worsened over the last day and a half and she sought care in the ED a day prior 10/11 and was told to return if she had worsening fever or chills or significant nausea or vomiting. Her abdominal pain did not improve and she had 1 episode of vomiting which led her to seek care. CT scan of abdomen and pelvis done yesterday 10/10 showed subcutaneous collection of an abscess proximally 6.6 x 1.2 x 4.3 cm. She denied chest pain, palpitations, c hanges in defecation, hematochezia, hematemesis, jaundice. On admission: Vitals: Temperature 97.8 F, pulse rate 89, respiratory rate 20, BP 128/82, O2 saturation 99% on room air Labs: WBC 9.8, hemoglobin 10.3, platelet count 467,000, sodium 141, potassium 3.6, bicarb 26, chloride 106, BUN 13, creatinine 0.93, glucose 63, lactic acid 1.5, calcium 9.7, phosphorus 2.8, magnesium 2, lipase 333, CRP 0.7. Liver enzyme profile showed ALT 36, AST and ALP normal. Coagulation panel normal. Imaging: EKG showed sinus rhythm with a rate of 68, no ST-T changes, QTc 405 MS. 10/14/2024 patient seen and examined at bedside. No acute events overnight. Ultrasound-guided drainage tube insertion was done yesterday and approximately 15 mL was drained and sent for analysis. Reported that she is still in a lot of pain. Labs: WBC 4.8, hemoglobin 8.9, MCV 75.5, platelet count 248,000, sodium 137, potassium 3.7, bicarb 27, creatinine 0.59, BUN 9, A1c 5.9, calcium 8.8. Iron studies show low iron of 20, low percent saturation 5.2, TIBC transferrin and ferritin are all normal. Review of systems: Pertinent positives and negatives as discussed in HPI, a complete review of systems was performed and all other systems are negative. Physical examination: Vital signs reviewed General: non toxic, no distress, appears at stated age, on room air Derm: no unusual rashes/lesions, warm Head: atraumatic, normocephalic, symmetric Eyes: EOMI, anicteric sclera, pupils equal round reactive to light ENT: Nose and ears atraumatic Neck: No cervical lymphadenopathy, trachea midline, supple Mouth: no lip lesion, mucus membranes moist Cardiovascular: S1S2 reg, no murmur Lungs: CTA bilateral, no rhonchi, no rales, no accessory muscle use Abdominal: soft, nondistended, right lower quadrant mass that is soft and mobile with an associated tenderness on light palpation, no guarding, drain noted on RLQ with serosanguinous drainage Ext: muscle strength 5 out of 5 in all 4 extremities grossly, no gross muscle atrophy, no contractures, positive dorsalis pedis pulse bilateral, no edema Neuro: CN II-XI grossly intact, no gross focal neuro deficits Psych: Alert and oriented x 3, appropriate affect and mood Assessment/Plan: 39-year-old female with diabetes, GERD, hypothyroidism history of sleeve gastrectomy and bowel resection and colostomy with reversal here for tractable abdominal pain. Subcutaneous abdominal abscess found on imaging. The patient is admitted with an anticipated greater than 2 midnight stay for evaluation of subcutaneous abscess Active: #. Abdominal subcutaneous fluid collection, seroma vs infected seroma, s/p ultrasound-guided drainage tube insertion CT scan of abdomen and pelvis done yesterday 10/10 showed subcutaneous collection of fluid with thickened capsule, likley an abscess proximally 6.6 x 1.2 x 4.3 cm Patient not febrile on admission. White count WNL Continue IV ceftriaxone. Discontinue flagyl. Currently on pain control with [place] 10 and IV Dilaudid. Pain still not controlled. Surgery consulted. Ultrasound-guided drainage tube insertion was done yesterday and approximately 15 mL was drained and sent for analysis. #. Microcytic anemia anemia, likely due to blood loss Hemoglobin 8.9 MCV 75.5 Patient is symptomatic at this time. No bruising or bleeding on evaluation. Iron studies normal. Check retic count Chronic Conditions: #. Asthma #. Fibromyalgia #. GERD #. CARLITOS #. Hypothyroidism -Continue home Wellbutrin 300 mg p.o., Diflucan 200 mg as needed, Atarax 100 mg p.o. as needed, levothyroxine 50 mcg daily, Claritin 10 mg p.o. daily, Reglan 10 mg p.o. daily as needed, Zanaflex 2 mg as needed #. Diabetes, not on home meds, controlled -A1c 5.9 -Glucose Accu-Cheks ACHS -Initiate Insulin sliding scale ACHS -Monitor for hypoglycemia DVT ppx: Lovenox 40 mg subcu daily CODE STATUS: Full Discussed with: Patient Anticipated discharge place: Home Rachel Mcdaniel MD PGY-1 Internal Medicine Dictation was produced using [employer] dictation software. please excuse any grammatical, word or spelling errors. Attestation: I have seen and examined this patient with my resident, assessment and plan discussed with the resident, agree with assessment and plan as written above. Dr. Donis Objective - Vital Signs Vital signs: Vital Signs Temp 97.7 F 10/14/24 07:00 Pulse 74 10/14/24 07:00 Resp 16 10/14/24 07:00 BP 95/63 10/14/24 07:00 Pulse Ox 97 10/14/24 07:00 FiO2 Intake & Output 10/13/24 10/14/24 10/14/24 18:59 06:59 18:59 Intake Total 298 Output Total 30 Balance 298 -30 Intake: Oral 298 Output: Drainage 30 abdomen 30 Other: # Voids 4 2 - Labs CBC & Chem 7: 10/14/24 03:42 10/14/24 03:42 Labs: Abnormal Lab Results - Last 24 Hours (Table) 10/14/24 10/14/24 Range/Units 03:42 03:42 RBC 4.00 L (4.10-5.20) 10*6/uL Hgb 8.9 L (12.0-15.0) g/dL Hct 30.2 L (37.2-46.3) % MCV 75.5 L (80.0-97.0) fL MCH 22.3 L (27.0-32.0) pg MCHC 29.5 L (32.0-37.0) g/dL RDW 17.3 H (11.5-14.5) % Neutrophils # 1.78 L (1.80-7.70) 10*3/uL Iron 20 L (50-170) UG/DL % Saturation 5.21 L (12.00-45.00) Microbiology - Last 24 Hours (Table) 10/12/24 20:35 Blood Culture - Preliminary Blood
[2024-10-14 16:44] LABS: Glucose,Whole Blood 64 mg/dL (70-110)
[2024-10-14 17:09] LABS: Glucose,Whole Blood 112 mg/dL (70-110)
[2024-10-14 20:53] LABS: Glucose,Whole Blood 91 mg/dL (70-110)
--- NOTE | 2024-10-14 23:07 | P.CONS ---
History of Present Illness - Reason for Consult Consult date: 10/14/24 Seroma Requesting physician: Brayan Meadows - Chief Complaint Abdominal pain x few days - History of Present Illness Patient is a 39-year-old female with a past medical history significant for diabetes mellitus asthma fibromyalgia reflux morbid obesity in this patient who is status post sleeve gastrectomy did have a problem with nonhealing wound to the left lower incision which is currently healed presenting to the hospital for evaluation of abdominal pain that the pain has been getting worse for the last few days patient pain started suddenly has been most in the right lower quadrant area describing it to be sharp moderate to severe intensity on a standard of 10 without radiation with associated nausea but no vomiting and no diarrhea patient denies high-grade fever or any chills and on presentation the hospital patient was afebrile no fever have been called subsequently patient was nontachycardic hypotensive or hypoxic patient did have a white count of 9.8 2 repeat is 4.[address] of abdominal pelvis completed on 10/11/2024 there was suggestion of subcutaneous fluid collection in the anterior abdominal wall approximately 6.6 X1.2X 4.3 cm with concern for possible subcutaneous abscess patient did have a CT-guided drainage of this fluid collection which has been sent for the culture patient is on empiric ceftriaxone infectious disease was consulted today for further management of antibiotic therapy Review of Systems Positive point and negatives has been mentioned in the HPI, complete review of systems was performed and all other systems are negative Past Medical History Past Medical History: Asthma, Diabetes Mellitus, Fibromyalgia, GERD/Reflux, Sleep Apnea/CPAP/BIPAP, Thyroid Disorder Additional Past Medical History / Comment(s): Migraines with aura, DDD, NIDDM type II- Per Dr no longer considered diabetic due to weight loss surgery + improved A1C, diverticulitis with perforation/colostomy since reversed, IBS, chronic seroma, CARLITOS/no device-improvement since surgery , polycystic ovaries, hypothyroid, season allergies History of Any Multi-Drug Resistant Organisms: ESBL Year Discovered:: 10/10/24 MDRO Source:: urine Past Surgical History: Bariatric Surgery, Cholecystectomy, Hernia Repair, Hysterectomy, Uterine Ablation Additional Past Surgical History / Comment(s): 06/06/21 sleeve gastrectomy, Rt Breast biopsy. bowel resection with colostomy/ later colostomy reversal, abdominal surgery to remove scar tissue, EGD, colonoscopy, lower back pain procedures, uterine ablation, lysis of adhesions 07/11/22, 02/04/24-laparscopic hysterectomy. panniculectomy 06-30-24 Past Anesthesia/Blood Transfusion Reactions: No Reported Reaction Additional Past Anesthesia/Blood Transfusion Reaction / Comm: No reaction w/ blood Past Psychological History: Anxiety, Bipolar, Depression Additional Psychological History / Comment(s): Pt has eating disorder-binge eater, borderline personality disorder. Pt resides with her boyfriend and his mother. She is independent. Smoking Status: Never smoker Past Alcohol Use History: Rare Additional Past Alcohol Use History / Comment(s): 2 drinks/month Past Drug Use History: None Reported - Past Family History Mother History Unknown: Yes Family Medical History: COPD Additional Family Medical History / Comment(s): Mother from COPD at the age of 55 yrs. Maternal grandmother - esophageal cancer Brother(s) Family Medical History: Diabetes Mellitus Father Family Medical History: Unable to Obtain Medications and Allergies Home Medications Medication Instructions Recorded Confirmed Type Levothyroxine Sodium [Synthroid] 50 mcg PO DAILY 05/05/14 10/13/24 History Cetirizine HCl [Zyrtec] 10 mg PO DAILY 08/30/19 10/13/24 History Nystatin 100,000 Unit/gm Powd 1 applic TOPICAL BID PRN 12/12/21 10/13/24 History [Mycostatin Powder] Ergocalciferol (Vitamin D2) 1,250 mcg PO GARCIA 05/19/22 10/13/24 History [Drisdol (50,000 Iu)] Fluconazole 200 mg PO DAILY PRN 05/19/22 10/13/24 History Acetaminophen Tab [Tylenol] 650 mg PO Q6H PRN 10/02/22 10/13/24 History Lasmiditan Succinate [Reyvow] 50 mg PO DAILY PRN 10/02/22 10/13/24 History Metoclopramide [Reglan] 10 mg PO DAILY PRN 10/02/22 10/13/24 History Ketorolac [Toradol] 10 mg PO Q6HR PRN 10/30/22 10/13/24 History HYDROcodone/APAP 10-325MG [[place] 1 tab PO BID PRN 11/19/23 10/13/24 History 10-325] hydrOXYzine HCL [Atarax] 100 mg PO HS PRN 04/28/24 10/13/24 History tiZANidine [Zanaflex] 2 mg PO HS PRN 04/28/24 10/13/24 History Dextroamphetamine/Amphetamine 40 mg PO DAILY 06/27/24 10/13/24 History [Adderall] Pregabalin [Lyrica] 225 mg PO BID 07/31/24 10/13/24 History buPROPion XL [Wellbutrin XL] 300 mg PO HS 07/31/24 10/13/24 History Furosemide [Lasix] 20 mg PO BID 08/27/24 10/13/24 History Potassium Chloride ER [K-Dur 10] 1 tab PO DAILY 09/01/24 10/13/24 History ALPRAZolam [Xanax] 0.5 mg PO BID PRN 10/13/24 10/13/24 History DULoxetine HCL [Cymbalta] 60 mg PO HS 10/13/24 10/13/24 History Allergies Allergy/AdvReac Type Severity Reaction Status Date / Time cephalexin [From Keflex] Allergy Rash/Hives Verified 10/13/24 10:39 codeine AdvReac Hallucinati Verified 10/13/24 10:39 ons tramadol AdvReac Hallucinati Verified 10/13/24 10:39 ons valacyclovir HCl AdvReac BLURRED Verified 10/13/24 10:39 [From Valtrex] VISION Physical Exam Vitals: Vital Signs Temp Pulse Resp BP Pulse Ox 10/14/24 11:03 16 10/14/24 07:00 97.7 F 74 16 95/63 97 10/14/24 01:12 97.2 F L 81 20 101/68 99 10/13/24 22:21 68 107/71 100 10/13/24 19:12 97.4 F L 78 20 100/66 99 10/13/24 14:45 67 15 111/67 95 10/13/24 14:15 70 18 108/68 96 10/13/24 13:45 66 16 107/68 96 Intake and Output 10/13/24 10/14/24 10/14/24 22:59 06:59 14:59 Intake Total 298 120 Output Total 30 Balance 298 90 Intake: Oral 298 120 Output: Drainage 30 abdomen 30 Other: # Voids 4 2 GENERAL DESCRIPTION: Middle-age female lying in bed, no distress. No tachypnea or accessory muscle of respiration use. HEENT: Shows Pallor , no scleral icterus. Oral mucous membrane is dry. NECK: Trachea central, no thyromegaly. LUNGS: Unlabored breathing. Clear to auscultation anteriorly. No wheeze or crackle. HEART: S1, S2, regular rate and rhythm. No loud murmur ABDOMEN: Soft, no tenderness , patient did have a drainage catheter with mostly bloodstained fluid with no purulence EXTREMITIES: No edema of feet. SKIN: No rash, no masses palpable. NEUROLOGICAL: The patient is awake, alert, oriented x3, mood and affect normal. Results CBC & Chem 7: 10/14/24 03:42 10/14/24 03:42 Labs: Abnormal Lab Results - Last 24 Hours (Table) 10/14/24 10/14/24 10/14/24 Range/Units 03:42 03:42 11:30 RBC 4.00 L (4.10-5.20) 10*6/uL Hgb 8.9 L (12.0-15.0) g/dL Hct 30.2 L (37.2-46.3) % MCV 75.5 L (80.0-97.0) fL MCH 22.3 L (27.0-32.0) pg MCHC 29.5 L (32.0-37.0) g/dL RDW 17.3 H (11.5-14.5) % Neutrophils # 1.78 L (1.80-7.70) 10*3/uL POC Glucose (mg/dL) 111 H (70-110) mg/dL Iron 20 L (50-170) UG/DL % Saturation 5.21 L (12.00-45.00) Microbiology - Last 24 Hours (Table) 10/12/24 20:35 Blood Culture - Preliminary Blood Assessment and Plan (1) Abdominal wall seroma Current Visit: Yes Status: Acute Code(s): S30.1XXA - CONTUSION OF ABDOMINAL WALL, INITIAL ENCOUNTER SNOMED Code(s): 634906884 (2) Allergy to cephalosporin Current Visit: No Status: Acute Code(s): Z88.1 - ALLERGY STATUS TO OTHER ANTIBIOTIC AGENTS SNOMED Code(s): 832235335 Plan: 1patient presented hospital with acute abdominal pain in this patient has been diagnosed with abdominal wall fluid collection likely dealing with a seroma in this patient with no fever or elevated white count and the fluid drained in the bag is looking mostly serosanguineous rather than purulent patient has been reassured 2-patient is on empiric Rocephin however the culture remains to be negative can be safely discontinued Question concern answered We will follow on clinical condition and cultures to further adjust medication if needed Thank you for this consultation we will follow the patient along with you Dictation was produced using [employer] dictation software. please excuse any grammatical, word or spelling errors. Time with Patient: Greater than 30
[2024-10-15 06:12] LABS: Glucose,Whole Blood 86 mg/dL (70-110)
[2024-10-15] MEDS: PANTOPRAZOLE 40 MG TABLET PO SCH (07:08)
[2024-10-15 08:10] LABS: HCT 30.9 % (37.2-46.3); HGB 8.9 g/dL (12.0-15.0); MCH 21.8 pg (27.0-32.0); MCHC 28.8 g/dL (32.0-37.0); MCV 75.7 FL (80.0-97.0); Mean Platelet Volume 10.3 FL (9.5-12.2); NRBC Per 100 WBC 0 X 10*3/uL (0.00-0.01); Platelet Count 358 X 10*3/uL (140-440); RBC 4.08 X 10*6/uL (4.10-5.20); RDW 17.2 % (11.5-14.5); WBC 4.97 X 10*3/uL (4.50-10.00)
[2024-10-15 11:23] LABS: Glucose,Whole Blood 90 mg/dL (70-110)
--- NOTE | 2024-10-15 12:49 | P.PN ---
Subjective Progress Note Date: 10/15/24 SURGICAL PROGRESS NOTE CHIEF COMPLAINT: Seroma HISTORY OF PRESENT ILLNESS: Patient is status post drain placement of her seroma. Patient with 30 mL serosanguineous output from her drain. She did have episode of vomiting last night. She does report abdominal pressure in the right lower abdomen is decreased since drain placement. Still reports some abdominal pain. She has restarted her oral pain medication. Afebrile. WBC 4.97 Hgb 8.9 platelets 358. Fluid cultures pending PHYSICAL EXAM: VITAL SIGNS: Reviewed. GENERAL: Well-developed in no acute distress. HEENT: No sclera icterus. Extraocular movements grossly intact. Moist buccal mucosa. Head is atraumatic, normocephalic. ABDOMEN: Soft. Nondistended. Tenderness right lower abdomen. Drain in place with serosanguineous drainage NEUROLOGIC: Alert and oriented. Cranial nerves II through XII grossly intact. ASSESSMENT: 1. Seroma status post drain placement PLAN: -Patient can be discharged from surgical standpoint -Antibiotics per ID service - Continue pain management Physician [employer] note has been reviewed by physician. Signing provider agrees with the documented findings, assessment, and plan of care. Objective - Vital Signs Vital signs: Vital Signs Temp 98.3 F 10/15/24 06:50 Pulse 80 10/15/24 06:50 Resp 16 10/15/24 08:00 BP 99/64 10/15/24 06:50 Pulse Ox 92 L 10/15/24 06:50 FiO2 Intake & Output 10/14/24 10/15/24 10/15/24 18:59 06:59 18:59 Intake Total 320 Output Total 30 Balance 290 Intake: Oral 320 Output: Drainage 30 abdomen 30 Other: # Voids 2 2 - Labs CBC & Chem 7: 10/15/24 03:14 10/14/24 03:42 Labs: Abnormal Lab Results - Last 24 Hours (Table) 10/14/24 10/14/24 10/15/24 Range/Units 16:42 17:08 03:14 RBC 4.08 L (4.10-5.20) X 10*6/uL Hgb 8.9 L (12.0-15.0) g/dL Hct 30.9 L (37.2-46.3) % MCV 75.7 L (80.0-97.0) FL MCH 21.8 L (27.0-32.0) pg MCHC 28.8 L (32.0-37.0) g/dL RDW 17.2 H (11.5-14.5) % POC Glucose (mg/dL) 64 L 112 H (70-110) mg/dL Microbiology - Last 24 Hours (Table) 10/12/24 20:35 Blood Culture - Preliminary Blood 10/13/24 14:40 Gram Stain - Preliminary Pleural Fluid Body Fluid Culture - Preliminary
[2024-10-15] MEDS: KETOROLAC 15 MG/ML 1 ML VIAL IVP SCH (13:26)
[2024-10-15 17:03] LABS: Glucose,Whole Blood 100 mg/dL (70-110)
--- NOTE | 2024-10-15 17:04 | P.PN ---
Subjective Progress Note Date: 10/15/24 Patient is a 39-year-old female with asthma, diabetes, fibromyalgia, GERD, CARLITOS, hypothyroidism, history of sleeve gastrectomy and diverticulitis with bowel resection and colostomy with reversal here for abdominal pain. Patient reported that her abdominal pain worsened over the last day and a half and she sought care in the ED a day prior 10/11 and was told to return if she had worsening fever or chills or significant nausea or vomiting. Her abdominal pain did not improve and she had 1 episode of vomiting which led her to seek care. CT scan of abdomen and pelvis done yesterday 10/10 showed subcutaneous collection of an abscess proximally 6.6 x 1.2 x 4.3 cm. She denied chest pain, palpitations, c hanges in defecation, hematochezia, hematemesis, jaundice. On admission: Vitals: Temperature 97.8 F, pulse rate 89, respiratory rate 20, BP 128/82, O2 saturation 99% on room air Labs: WBC 9.8, hemoglobin 10.3, platelet count 467,000, sodium 141, potassium 3.6, bicarb 26, chloride 106, BUN 13, creatinine 0.93, glucose 63, lactic acid 1.5, calcium 9.7, phosphorus 2.8, magnesium 2, lipase 333, CRP 0.7. Liver enzyme profile showed ALT 36, AST and ALP normal. Coagulation panel normal. Imaging: EKG showed sinus rhythm with a rate of 68, no ST-T changes, QTc 405 MS. 10/14/2024 patient seen and examined at bedside. No acute events overnight. Ultrasound-guided drainage tube insertion was done yesterday and approximately 15 mL was drained and sent for analysis. Reported that she is still in a lot of pain. Labs: WBC 4.8, hemoglobin 8.9, MCV 75.5, platelet count 248,000, sodium 137, potassium 3.7, bicarb 27, creatinine 0.59, BUN 9, A1c 5.9, calcium 8.8. Iron studies show low iron of 20, low percent saturation 5.2, TIBC transferrin and ferritin are all normal. 10/15/2024 patient seen and examined at bedside. No acute events overnight. No new complaints or symptoms. Patient reported that pain is still not controlled. Still having some serosanguinous d/c from drain Labs: WBC 4.97, hemoglobin 8.9, MCV 75.7, platelet count 358,000. Fluid analysis and culture negative so far. Review of systems: Pertinent positives and negatives as discussed in HPI, a complete review of systems was performed and all other systems are negative. Physical examination: Vital signs reviewed General: non toxic, no distress, appears at stated age, on room air Derm: no unusual rashes/lesions, warm Head: atraumatic, normocephalic, symmetric Eyes: EOMI, anicteric sclera, pupils equal round reactive to light ENT: Nose and ears atraumatic Neck: No cervical lymphadenopathy, trachea midline, supple Mouth: no lip lesion, mucus membranes moist Cardiovascular: S1S2 reg, no murmur Lungs: CTA bilateral, no rhonchi, no rales, no accessory muscle use Abdominal: soft, nondistended, drain noted on RLQ with serosanguinous drainage Ext: muscle strength 5 out of 5 in all 4 extremities grossly, no gross muscle atrophy, no contractures, positive dorsalis pedis pulse bilateral, no edema Neuro: CN II-XI grossly intact, no gross focal neuro deficits Psych: Alert and oriented x 3, appropriate affect and mood Assessment/Plan: 39-year-old female with diabetes, GERD, hypothyroidism history of sleeve gastrectomy and bowel resection and colostomy with reversal here for tractable abdominal pain. Subcutaneous abdominal abscess found on imaging. The patient is admitted with an anticipated greater than 2 midnight stay for evaluation of subcutaneous abscess Active: #. Abdominal seroma, s/p ultrasound-guided drainage tube insertion CT scan of abdomen and pelvis done yesterday 10/10 showed subcutaneous collection of fluid with thickened capsule, likley an abscess proximally 6.6 x 1.2 x 4.3 cm Patient not febrile on admission. White count WNL ID consulted. Advised that IV ceftriaxone can be safely discontinued Currently on pain control with [place] 10 and IV Dilaudid. Added toradol 15mg IVP every 6 hours. If pain improved tomorrow may consider discharge Surgery consulted. Ultrasound-guided drainage tube insertion was done yesterday and approximately 15 mL was drained and sent for analysis. #. Microcytic anemia anemia, stable Hemoglobin 8.9 MCV 75.7 Patient is symptomatic at this time. No bruising or bleeding on evaluation. Iron studies normal. Check retic count 0.96 Chronic Conditions: #. Asthma #. Fibromyalgia #. GERD #. CARLITOS #. Hypothyroidism -Continue home Wellbutrin 300 mg p.o., Diflucan 200 mg as needed, Atarax 100 mg p.o. as needed, levothyroxine 50 mcg daily, Claritin 10 mg p.o. daily, Reglan 10 mg p.o. daily as needed, Zanaflex 2 mg as needed #. Diabetes, not on home meds, controlled -A1c 5.9 -Glucose Accu-Cheks ACHS -Initiate Insulin sliding scale ACHS -Monitor for hypoglycemia DVT ppx: Lovenox 40 mg subcu daily CODE STATUS: Full Discussed with: Patient Anticipated discharge place: Home Rachel Mcdaniel MD PGY-1 Internal Medicine Dictation was produced using [employer] dictation software. please excuse any grammatical, word or spelling errors. Attestation: I have seen and examined this patient with my resident, assessment and plan discussed with the resident, agree with assessment and plan as written above. Dr. Donis Objective - Vital Signs Vital signs: Vital Signs Temp 98.3 F 10/15/24 06:50 Pulse 80 10/15/24 06:50 Resp 16 10/15/24 06:50 BP 99/64 10/15/24 06:50 Pulse Ox 92 L 10/15/24 06:50 FiO2 Intake & Output 10/14/24 10/15/24 10/15/24 18:59 06:59 18:59 Intake Total 320 Output Total 30 Balance 290 Intake: Oral 320 Output: Drainage 30 abdomen 30 Other: # Voids 2 2 - Labs CBC & Chem 7: 10/15/24 03:14 10/14/24 03:42 Labs: Abnormal Lab Results - Last 24 Hours (Table) 10/14/24 10/14/24 10/14/24 Range/Units 11:30 16:42 17:08 RBC (4.10-5.20) X 10*6/uL Hgb (12.0-15.0) g/dL Hct (37.2-46.3) % MCV (80.0-97.0) FL MCH (27.0-32.0) pg MCHC (32.0-37.0) g/dL RDW (11.5-14.5) % POC Glucose (mg/dL) 111 H 64 L 112 H (70-110) mg/dL 10/15/24 Range/Units 03:14 RBC 4.08 L (4.10-5.20) X 10*6/uL Hgb 8.9 L (12.0-15.0) g/dL Hct 30.9 L (37.2-46.3) % MCV 75.7 L (80.0-97.0) FL MCH 21.8 L (27.0-32.0) pg MCHC 28.8 L (32.0-37.0) g/dL RDW 17.2 H (11.5-14.5) % POC Glucose (mg/dL) (70-110) mg/dL Microbiology - Last 24 Hours (Table) 10/12/24 20:35 Blood Culture - Preliminary Blood 10/13/24 14:40 Gram Stain - Preliminary Pleural Fluid Body Fluid Culture - Preliminary
--- NOTE | 2024-10-15 18:05 | CDI ---
Documentation Clarification Form Date: 10/15/2024 05:32:04 PM From: Kizzy Gonzalez RN CCDS Phone: [phone] Admit Date: 10/12/2024 09:43:00 PM Patient Name: Mary Calhoun Visit Number: [id number] Discharge Date: ATTENTION: The Clinical Documentation Specialists (CDI) and [facility] Coding Staff appreciate your assistance in clarifying documentation. Please respond to the clarification below the line at the bottom and electronically sign. The CDI & [facility] Coding staff will review the response and follow-up if needed. Please note: Queries are made part of the Legal Health Record. If you have any questions, please contact the author of this message via ITS. Doctor: Yulissa Donis Your patient has Post-operative seroma is documented ED Note, 10/12. Based on this information and the findings below, is there an additional diagnosis that is clinically appropriate for this patient? Patient history/risk factors: 39 year old female presents to the ED with abdominal pain it worsened over the last day and a half and she sought care in the ED a day prior 10/11 and was told to return if she had worsening fever or chills or significant nausea or vomiting. Her abdominal pain did not improve and had episode of vomiting so she sought care. Medical history: Gerd, Fibromyalgia, 05/2021 Sleeve gastrectomy , 06/30/2024 Panniculectomy , HP, 10/13 Clinical Indicators: Surgery consult, 10/13: Abdomen: Soft Obese. Non distended. Tenderness right lower quadrant at panniculectomy incision site. No erythema. No drainage. Left side of the panniculectomy incision site was healed. There is still small opening but no drainage. Surgery consult 10/13: CT scan abdomen pelvis reports subcutaneous collection in the anterior abdominal wall which measures approximately 6.6 x 1.2 x 4.3 cm concerning for subcutaneous abscess. Seroma is less likely given the thickened capsule surrounding the fluid. US guided soft tissue drainage: Approximately 15 mL was drained and sent to the lab for analysis.A water sealed container was then hooked up.The tubing was affixed to the skin.There was no blood loss and post-procedure hemostasis was achieved 10/15, Surgery note: Seroma status post drain placement.30ml erosanguineous output from her drain. Treatment: 10/13 8 Bangladeshi tube placement within the pleural space which was left in place. Rocephin IV Is there an additional diagnosis that is clinically appropriate for this patient? [x ] Postoperative seroma related to Panniculectomy [ ] Postoperative seroma related to_(specify) [ ] No additional diagnosis/Not clinically significant [ ] Unable to determine [ ] Other, please specify (Template Last Reviewed: June 2022) MTDD
[2024-10-15 21:11] LABS: Glucose,Whole Blood 143 mg/dL (70-110)
[2024-10-16 02:01] VITALS: RESP 16
[2024-10-16 06:10] LABS: Glucose,Whole Blood 82 mg/dL (70-110)
[2024-10-16 08:45] VITALS: BP 105/65; PULSE 73; TEMP 97.9
[2024-10-16 11:27] LABS: Glucose,Whole Blood 128 mg/dL (70-110)
--- NOTE | 2024-10-16 12:51 | P.PN ---
Subjective Progress Note Date: 10/16/24 SURGICAL PROGRESS NOTE CHIEF COMPLAINT: Seroma HISTORY OF PRESENT ILLNESS: Patient reports aches and pains throughout her body. She feels that it is her fibromyalgia. She does have chronic pain. She re ports that her R abdominal pain is improving. ADAN drain with 30 mL serosanguineous output. Patient reports feeling ready for discharge. Tolerating diet. Denies any nausea or vomiting. Afebrile. PHYSICAL EXAM: VITAL SIGNS: Reviewed. GENERAL: Well-developed in no acute distress. HEENT: No sclera icterus. Extraocular movements grossly intact. Moist buccal mucosa. Head is atraumatic, normocephalic. ABDOMEN: Soft. Nondistended. mild Tenderness right lower abdomen. Drain in place with serosanguineous drainage NEUROLOGIC: Alert and oriented. Cranial nerves II through XII grossly intact. ASSESSMENT: 1. Seroma status post drain placement 2. Chronic pain 3. Fibromyalgia PLAN: -Patient can be discharged from surgical standpoint -Antibiotics per ID service -Continue home pain medication. Recommend patient follows up with her pain management doctor -Recommend patient follows up in the bariatric clinic on Sunday with Dr. Meadows for possible drain removal Physician Non Destructive Evaluation Manager note has been reviewed by physician. Signing provider agrees with the documented findings, assessment, and plan of care. Objective - Vital Signs Vital signs: Vital Signs Temp 97.9 F 10/16/24 08:06 Pulse 73 10/16/24 08:06 Resp 16 10/16/24 08:06 BP 105/65 10/16/24 08:06 Pulse Ox 92 L 10/16/24 08:06 FiO2 Intake & Output 10/15/24 10/16/24 10/16/24 18:59 06:59 18:59 Output Total 30 Balance -30 Output: Drainage 30 abdomen 30 Other: # Voids 4 1 - Labs CBC & Chem 7: 10/15/24 03:14 10/14/24 03:42 Labs: Abnormal Lab Results - Last 24 Hours (Table) 10/15/24 10/16/24 Range/Units 21:10 11:26 POC Glucose (mg/dL) 143 H 128 H (70-110) mg/dL Microbiology - Last 24 Hours (Table) 10/12/24 20:35 Blood Culture - Preliminary Blood 10/13/24 14:40 Anaerobic Culture - Preliminary Pleural Fluid 10/13/24 14:40 Gram Stain - Preliminary Pleural Fluid Body Fluid Culture - Preliminary
--- NOTE | 2024-10-16 14:05 | P.DS ---
Providers Date of admission: 10/12/24 21:43 Attending physician: Oswaldo Sarkar Consults: 10/12/24 21:41 Consult Physician Routine Consulting Provider: Brayan Meadows Consult Reason/Comments: known Do you want consulting provider notified?: Yes 10/14/24 09:23 Consult Physician Routine Consulting Provider: Sade Maloney Consult Reason/Comments: seroma Do you want consulting provider notified?: Yes Primary care physician: Alfred Watson [facility] Course: Hospital Course: Patient is a 39-year-old female with asthma, diabetes, fibromyalgia, GERD, CARLITOS, hypothyroidism, history of sleeve gastrectomy, panniculectomy Jun 2024 and diverticulitis with bowel resection and colostomy with reversal here for abdominal pain. Patient reported that her abdominal pain worsened over the last day and a half and she sought care in the ED a day prior 10/11 and was told to return if she had worsening fever or chills or significant nausea or vomiting. Her abdominal pain did not improve and she had 1 episode of vomiting which led her to seek care. CT scan of abdomen and pelvis done yesterday 10/10 showed subcutaneous collection of an abscess proximally 6.6 x 1.2 x 4.3 cm. She denied chest pain, palpitations, changes in defecation, hematochezia, hematemesis, jaundice. On admission: Vitals: Temperature 97.8 F, pulse rate 89, respiratory rate 20, BP 128/82, O2 saturation 99% on room air Labs: WBC 9.8, hemoglobin 10.3, platelet count 467,000, sodium 141, potassium 3.6, bicarb 26, chloride 106, BUN 13, creatinine 0.93, glucose 63, lactic acid 1.5, calcium 9.7, phosphorus 2.8, magnesium 2, lipase 333, CRP 0.7. Liver enzyme profile showed ALT 36, AST and ALP normal. Coagulation panel normal. Imaging: EKG showed sinus rhythm with a rate of 68, no ST-T changes, QTc 405 MS. Patient was admitted for abdominal subcutaneous fluid collection concerning for abscess or infected seroma. General surgery consulted, pain control and IV antibiotics were ordered. General surgery recommended drainage. Patient did not develop fever or had elevated white count which led us to believe that fluid collection is more likely a seroma. Patient complained of uncontrolled pain but has improved throughout hospital stay. Drain today has no leaks and drains yellowish fluid. No new complications occurred. Patient to resume all home medications. Patient is advised to follow-up with the bariatric clinic on Sunday for possible drain removal. She is also advised to follow-up with PCP and her pain management doctor on outpatient basis. Final Diagnosis: #. Abdominal seroma, s/p ultrasound-guided drainage tube insertion #. Microcytic anemia anemia, stable #. Asthma #. Fibromyalgia #. GERD #. CARLITOS #. Hypothyroidism #. Diabetes, not on home meds, controlled Physical examination: Vital signs reviewed General: non toxic, no distress Derm: no unusual rashes/lesions, warm Head: atraumatic, normocephalic, symmetric Eyes: EOMI, anicteric sclera, pupils equal round reactive to light ENT: Nose and ears atraumatic Neck: No cervical lymphadenopathy, trachea midline, supple Mouth: no lip lesion, mucus membranes moist Cardiovascular: S1S2 reg, no murmur Lungs: CTA bilateral, no rhonchi, no rales, no accessory muscle use Abdominal: soft, nondistended, nontender to palpation, no guarding, drain noted on RLQ with yellowish drainage Ext: muscle strength 5 out of 5 in all 4 extremities grossly, no gross muscle atrophy, no contractures, positive dorsalis pedis pulse bilateral, no edema Neuro: CN II-XI grossly intact, no gross focal neuro deficits Psych: Alert, oriented, appropriate affect and mood Attestation: I have seen and examined this patient with my resident, assessment and plan discussed with the resident, agree with assessment and plan as written above. Dr. Donis Patient Condition at Discharge: Fair Plan - Discharge Summary Discharge Rx Participant: No New Discharge Prescriptions: Continue Levothyroxine Sodium [Synthroid] 50 mcg PO DAILY Cetirizine HCl [Zyrtec] 10 mg PO DAILY Ergocalciferol (Vitamin D2) [Drisdol (50,000 Iu)] 1,250 mcg PO GARCAI Lasmiditan Succinate [Reyvow] 50 mg PO DAILY PRN PRN Reason: Migraine Headache Ketorolac [Toradol] 10 mg PO Q6HR PRN PRN Reason: migraines HYDROcodone/APAP 10-325MG [Medora 10-325] 1 tab PO BID PRN PRN Reason: Pain tiZANidine [Zanaflex] 2 mg PO HS PRN PRN Reason: Muscle Spasm hydrOXYzine HCL [Atarax] 100 mg PO HS PRN PRN Reason: Insomnia Pregabalin [Lyrica] 225 mg PO BID Furosemide [Lasix] 20 mg PO BID DULoxetine HCL [Cymbalta] 60 mg PO HS Nystatin 100,000 Unit/gm Powd [Mycostatin Powder] 1 applic TOPICAL BID PRN PRN Reason: Rash Fluconazole 200 mg PO DAILY PRN PRN Reason: yeast infection Metoclopramide [Reglan] 10 mg PO DAILY PRN PRN Reason: Nausea Acetaminophen Tab [Tylenol] 650 mg PO Q6H PRN PRN Reason: Pain Or Fever > 100.5 Dextroamphetamine/Amphetamine [Adderall] 40 mg PO DAILY buPROPion XL [Wellbutrin XL] 300 mg PO HS Potassium Chloride ER [K-Dur 10] 1 tab PO DAILY ALPRAZolam [Xanax] 0.5 mg PO BID PRN PRN Reason: Anxiety Discharge Medication List Levothyroxine Sodium [Synthroid] 50 mcg PO DAILY 05/05/14 [History] Cetirizine HCl [Zyrtec] 10 mg PO DAILY 08/30/19 [History] Nystatin 100,000 Unit/gm Powd [Mycostatin Powder] 1 applic TOPICAL BID PRN 12/12/21 [History] Ergocalciferol (Vitamin D2) [Drisdol (50,000 Iu)] 1,250 mcg PO GARCIA 05/19/22 [History] Fluconazole 200 mg PO DAILY PRN 05/19/22 [History] Acetaminophen Tab [Tylenol] 650 mg PO Q6H PRN 10/02/22 [History] Lasmiditan Succinate [Reyvow] 50 mg PO DAILY PRN 10/02/22 [History] Metoclopramide [Reglan] 10 mg PO DAILY PRN 10/02/22 [History] Ketorolac [Toradol] 10 mg PO Q6HR PRN 10/30/22 [History] HYDROcodone/APAP 10-325MG [Medora 10-325] 1 tab PO BID PRN 11/19/23 [History] hydrOXYzine HCL [Atarax] 100 mg PO HS PRN 04/28/24 [History] tiZANidine [Zanaflex] 2 mg PO HS PRN 04/28/24 [History] Dextroamphetamine/Amphetamine [Adderall] 40 mg PO DAILY 06/27/24 [History] Pregabalin [Lyrica] 225 mg PO BID 07/31/24 [History] buPROPion XL [Wellbutrin XL] 300 mg PO HS 07/31/24 [History] Furosemide [Lasix] 20 mg PO BID 08/27/24 [History] Potassium Chloride ER [K-Dur 10] 1 tab PO DAILY 09/01/24 [History] ALPRAZolam [Xanax] 0.5 mg PO BID PRN 10/13/24 [History] DULoxetine HCL [Cymbalta] 60 mg PO HS 10/13/24 [History] [facility](s[facility]Ref[place] [facility] [place] [facility] [place] [facility]20/24 Alfred Varela [Primary Care Provider] - 10/17/24 10:30 am Sade Maloney MD [STAFF PHYSICIAN] - 1 Week (Office is not answering at time of discharge. Please call for follow-up appointment.) Patient Instructions/Handouts: Abscess Incision and Drainage (DC) Discharge Disposition: HOME SELF-CARE
--- NOTE | 2024-10-16 15:56 | P.PN ---
Subjective Progress Note Date: 10/15/24 Principal diagnosis: Reason for follow-up is abdominal wall seroma Patient is a 39-year-old female with a past medical history significant for diabetes mellitus asthma fibromyalgia reflux morbid obesity in this patient who is status post sleeve gastrectomy, presented hospital abdominal pain with evidence of right lower abdominal wall fluid collection status post CT-guided drainage On today's evaluation that is 10/15/2024,the patient denies any fever or any chills, patient is breathing comfortably on room air, the patient denies chest pain shortness of breath and no significant cough, patient did have some improvement abdominal pain still having output in the drainage catheter no diarrhea. Patient white count is 4.97 cultures so far negative Objective - Vital Signs Vital signs: Vital Signs Temp 98 F 10/15/24 13:08 Pulse 85 10/15/24 13:08 Resp 16 10/15/24 13:08 BP 125/78 10/15/24 13:08 Pulse Ox 98 10/15/24 13:08 FiO2 Intake & Output 10/14/24 10/15/24 10/15/24 18:59 06:59 18:59 Intake Total 320 Output Total 30 Balance 290 Intake: Oral 320 Output: Drainage 30 abdomen 30 Other: # Voids 2 2 - Exam GENERAL DESCRIPTION: Middle-age female up in bed in no distress RESPIRATORY SYSTEM: Unlabored breathing , decreased breath sounds at bases HEART: S1 S2 regular rate and rhythm , ABDOMEN: Soft , no tenderness, ADAN drain with mostly serosanguineous secretion EXTREMITIES: No edema feet - Labs CBC & Chem 7: 10/15/24 03:14 10/14/24 03:42 Labs: Abnormal Lab Results - Last 24 Hours (Table) 10/14/24 10/14/24 10/15/24 Range/Units 16:42 17:08 03:14 RBC 4.08 L (4.10-5.20) X 10*6/uL Hgb 8.9 L (12.0-15.0) g/dL Hct 30.9 L (37.2-46.3) % MCV 75.7 L (80.0-97.0) FL MCH 21.8 L (27.0-32.0) pg MCHC 28.8 L (32.0-37.0) g/dL RDW 17.2 H (11.5-14.5) % POC Glucose (mg/dL) 64 L 112 H (70-110) mg/dL Microbiology - Last 24 Hours (Table) 10/12/24 20:35 Blood Culture - Preliminary Blood 10/13/24 14:40 Gram Stain - Preliminary Pleural Fluid Body Fluid Culture - Preliminary Assessment and Plan (1) Abdominal wall seroma Status: Acute Code(s): S30.1XXA - CONTUSION OF ABDOMINAL WALL, INITIAL ENCOUNTER SNOMED Code(s): 165537554 (2) Allergy to cephalosporin Status: Acute Code(s): Z88.1 - ALLERGY STATUS TO OTHER ANTIBIOTIC AGENTS SNOMED Code(s): 190706263 Plan: 1patient presented hospital with acute abdominal pain in this patient has been diagnosed with abdominal wall fluid collection likely dealing with a seroma in this patient with no fever or elevated white count and the fluid drained in the bag is looking mostly serosanguineous rather than purulent patient has been reassured 2-patient remains to be afebrile white count has been normal cultures so far negative antibiotics can be safely discontinued Dictation was produced using [employer] dictation software. please excuse any grammatical, word or spelling errors. Time with Patient: Less than 30
--- NOTE | 2024-10-16 15:57 | P.PN ---
Subjective Progress Note Date: 10/16/24 Principal diagnosis: Reason for follow-up is abdominal wall seroma Patient is a 39-year-old female with a past medical history significant for diabetes mellitus asthma fibromyalgia reflux morbid obesity in this patient who is status post sleeve gastrectomy, presented hospital abdominal pain with evidence of right lower abdominal wall fluid collection status post CT-guided drainage On today's evaluation that is 10/16/2024,the patient remains to be afebrile, patient is on room air not requiring supplemental oxygen and denies any shortness of breath no chest pain or cough.Patient denies having any nausea or vomiting, abdominal pain has slightly decreased intensity statin but could have drainage catheter. No new labs were obtained today culture have been negative so far Objective - Vital Signs Vital signs: Vital Signs Temp 97.9 F 10/16/24 08:06 Pulse 73 10/16/24 08:06 Resp 16 10/16/24 08:06 BP 105/65 10/16/24 08:06 Pulse Ox 92 L 10/16/24 08:06 FiO2 Intake & Output 10/15/24 10/16/24 10/16/24 18:59 06:59 18:59 Output Total 30 Balance -30 Output: Drainage 30 abdomen 30 Other: # Voids 4 1 - Exam GENERAL DESCRIPTION: Middle-age female up in bed in no distress RESPIRATORY SYSTEM: Unlabored breathing , decreased breath sounds at bases HEART: S1 S2 regular rate and rhythm , ABDOMEN: Soft , no tenderness, ADAN drain with mostly serosanguineous secretion EXTREMITIES: No edema feet - Labs CBC & Chem 7: 10/15/24 03:14 10/14/24 03:42 Labs: Abnormal Lab Results - Last 24 Hours (Table) 10/15/24 10/16/24 Range/Units 21:10 11:26 POC Glucose (mg/dL) 143 H 128 H (70-110) mg/dL Microbiology - Last 24 Hours (Table) 10/12/24 20:35 Blood Culture - Preliminary Blood 10/13/24 14:40 Anaerobic Culture - Preliminary Pleural Fluid 10/13/24 14:40 Gram Stain - Preliminary Pleural Fluid Body Fluid Culture - Preliminary Assessment and Plan (1) Abdominal wall seroma Status: Acute Code(s): S30.1XXA - CONTUSION OF ABDOMINAL WALL, INITIAL ENCOUNTER SNOMED Code(s): 445439147 (2) Allergy to cephalosporin Status: Acute Code(s): Z88.1 - ALLERGY STATUS TO OTHER ANTIBIOTIC AGENTS SNOMED Code(s): 638576692 Plan: 1patient presented hospital with acute abdominal pain in this patient has been diagnosed with abdominal wall fluid collection likely dealing with a seroma in this patient with no fever or elevated white count and the fluid drained in the bag is looking mostly serosanguineous rather than purulent patient has been manasa ssured 2-patient remains to be afebrile white count has been normal cultures so far negative, no need for antibiotics on discharge Dictation was produced using [employer] dictation software. please excuse any grammatical, word or spelling errors. Time with Patient: Less than 30
[2024-10-19] MEDS ORDERED: ERGOCALCIFEROL 1,250 MCG (50,000 IU) CAPSULE PO SCH (09:00)
== END 2024-10-16 14:57 | disposition home or self-care (01) | DRG 921 ==
LOC: EC 19:30 → 4SSUR 21:42 → OBSVTOIN 21:43 → 4SSUR 23:10
PROVIDERS: ADMIT Hospitalist; ATTEND Hospitalist
PROC: 0W9F30Z Drainage of Abdominal Wall with Drainage Device, Percutaneous Approach (ICD-10-PCS; principal; 2024-10-13)
DX: L76.34 Postprocedural seroma of skin and subcutaneous tissue following other procedure (principal); D50.0 Iron deficiency anemia secondary to blood loss (chronic); E03.9 Hypothyroidism, unspecified; E11.9 Type 2 diabetes mellitus without complications; E28.2 Polycystic ovarian syndrome; F31.9 Bipolar disorder, unspecified; J45.909 Unspecified asthma, uncomplicated; F60.3 Borderline personality disorder; G89.29 Other chronic pain; K21.9 Gastro-esophageal reflux disease without esophagitis; F41.9 Anxiety disorder, unspecified; G47.33 Obstructive sleep apnea (adult) (pediatric); M79.7 Fibromyalgia; F50.819 Binge eating disorder, unspecified; Z88.1 Allergy status to other antibiotic agents; Z88.5 Allergy status to narcotic agent; Z88.8 Allergy status to other drugs, medicaments and biological substances; Z79.84 Long term (current) use of oral hypoglycemic drugs; Z79.890 Hormone replacement therapy; Z79.899 Other long term (current) drug therapy; Z90.710 Acquired absence of both cervix and uterus; Z98.84 Bariatric surgery status
CPT/HCPCS: 10030; 36415; 76942; 80048; 80053; 82565; 82728; 83036; 83540; 83550; 83605; 83690; 83735; 84100; 84466; 84484; 85025; 85027; 85045; 85610; 85652; 85730; 86140; 87040; 87070; 87075; 87205; 93005; 96365; 96366; 96375; 99285

== ENCOUNTER → 2024-10-20 | Outpatient (CLI) | payer BC ==
[2024-10-20 08:58] VITALS: BP 116/82; PULSE 103; RESP 16; TEMP 98.3; BMI 34.2
== END ==
LOC: BARWHC3 08:20
PROVIDERS: ATTEND Surgery
DX: E66.01 Morbid (severe) obesity due to excess calories (principal); Z88.1 Allergy status to other antibiotic agents; Z88.5 Allergy status to narcotic agent; Z88.8 Allergy status to other drugs, medicaments and biological substances; Z68.34 Body mass index [BMI] 34.0-34.9, adult
CPT/HCPCS: 99211

== ENCOUNTER 2024-11-02 15:17 | Emergency (ER) | payer BC ==
[2024-11-02 15:40] VITALS: BP 112/76; PULSE 95; RESP 16; TEMP 98.7
--- NOTE | 2024-11-02 20:16 | ED ---
Headache HPI - General Chief Complaint: Headache Stated Complaint: Headache Time Seen by Provider: 11/02/24 19:31 Source: patient, RN notes reviewed Mode of arrival: ambulatory Limitations: no limitations - History of Present Illness Initial Comments: This is a 39-year-old female who presents to the emergency department for a headache. Patient has a history of migraines and is well-known to this emergency department for recurrent visits related to the same complaint. States that when she was driving she felt like she took a huge blow to the left side of her head which is different from her typical migraines, which concerned her. She had mild nausea associated with this. MD Complaint: headache, "migraine" - Related Data Home Medications Medication Instructions Recorded Confirmed Levothyroxine Sodium [Synthroid] 50 mcg PO DAILY 05/05/14 10/13/24 Cetirizine HCl [Zyrtec] 10 mg PO DAILY 08/30/19 10/13/24 Nystatin 100,000 Unit/gm Powd 1 applic TOPICAL BID PRN 12/12/21 10/13/24 [Mycostatin Powder] Ergocalciferol (Vitamin D2) 1,250 mcg PO GARCIA 05/19/22 10/13/24 [Drisdol (50,000 Iu)] Fluconazole 200 mg PO DAILY PRN 05/19/22 10/13/24 Acetaminophen Tab [Tylenol] 650 mg PO Q6H PRN 10/02/22 10/13/24 Lasmiditan Succinate [Reyvow] 50 mg PO DAILY PRN 10/02/22 10/13/24 Metoclopramide [Reglan] 10 mg PO DAILY PRN 10/02/22 10/13/24 Ketorolac [Toradol] 10 mg PO Q6HR PRN 10/30/22 10/13/24 HYDROcodone/APAP 10-325MG [[place] 1 tab PO BID PRN 11/19/23 10/13/24 10-325] hydrOXYzine HCL [Atarax] 100 mg PO HS PRN 04/28/24 10/13/24 tiZANidine [Zanaflex] 2 mg PO HS PRN 04/28/24 10/13/24 Dextroamphetamine/Amphetamine 40 mg PO DAILY 06/27/24 10/13/24 [Adderall] Pregabalin [Lyrica] 225 mg PO BID 07/31/24 10/13/24 buPROPion XL [Wellbutrin XL] 300 mg PO HS 07/31/24 10/13/24 Furosemide [Lasix] 20 mg PO BID 08/27/24 10/13/24 Potassium Chloride ER [K-Dur 10] 1 tab PO DAILY 09/01/24 10/13/24 ALPRAZolam [Xanax] 0.5 mg PO BID PRN 10/13/24 10/13/24 DULoxetine HCL [Cymbalta] 60 mg PO HS 10/13/24 10/13/24 Allergies Allergy/AdvReac Type Severity Reaction Status Date / Time cephalexin [From Keflex] Allergy Rash/Hives Verified 11/02/24 15:40 codeine AdvReac Hallucinati Verified 11/02/24 15:40 ons tramadol AdvReac Hallucinati Verified 11/02/24 15:40 ons valacyclovir HCl AdvReac BLURRED Verified 11/02/24 15:40 [From Valtrex] VISION Review of Systems ROS Statement: Those systems with pertinent positive or pertinent negative responses have been documented in the HPI. ROS Other: All systems not noted in ROS Statement are negative. Past Medical History Past Medical History: Asthma, Diabetes Mellitus, Fibromyalgia, GERD/Reflux, Sleep Apnea/CPAP/BIPAP, Thyroid Disorder Additional Past Medical History / Comment(s): Migraines with aura, DDD, NIDDM type II- Per Dr no longer considered diabetic due to weight loss surgery + improved A1C, diverticulitis with perforation/colostomy since reversed, IBS, chronic seroma, CARLITOS/no device-improvement since surgery , polycystic ovaries, hypothyroid, season allergies History of Any Multi-Drug Resistant Organisms: ESBL Date of last positivie culture/infection: 10/10/24 MDRO Source:: urine Past Surgical History: Bariatric Surgery, Cholecystectomy, Hernia Repair, Hysterectomy, Uterine Ablation Additional Past Surgical History / Comment(s): 06/06/21 sleeve gastrectomy, Rt Breast biopsy. bowel resection with colostomy/ later colostomy reversal, abdominal surgery to remove scar tissue, EGD, colonoscopy, lower back pain procedures, uterine ablation, lysis of adhesions 07/11/22, 02/04/24-laparscopic hysterectomy. panniculectomy 06-30-24 Past Anesthesia/Blood Transfusion Reactions: No Reported Reaction Additional Past Anesthesia/Blood Transfusion Reaction / Comment(s): No reaction w/ blood Past Psychological History: Anxiety, Bipolar, Depression Smoking Status: Never smoker Past Alcohol Use History: Rare Past Drug Use History: None Reported - Past Family History Mother History Unknown: Yes Family Medical History: COPD Additional Family Medical History / Comment(s): Mother from COPD at the age of 55 yrs. Maternal grandmother - esophageal cancer Brother(s) Family Medical History: Diabetes Mellitus Father Family Medical History: Unable to Obtain General Exam Limitations: no limitations General appearance: alert, in no apparent distress Head exam: Present: atraumatic, normocephalic, normal inspection Respiratory exam: Present: normal lung sounds bilaterally. Absent: respiratory distress, wheezes, rales, rhonchi, stridor Cardiovascular Exam: Present: regular rate, normal rhythm Neurological exam: Present: alert, oriented X3, CN II-XII intact Psychiatric exam: Present: normal affect, normal mood Skin exam: Present: warm, dry, intact, normal color. Absent: rash Course Vital Signs 11/02/24 15:37 Temperature 98.7 F Pulse Rate 95 Respiratory 16 Rate Blood Pressure 112/76 O2 Sat by Pulse 99 Oximetry Medical Decision Making - Medical Decision Making This is a 39 year old female who presents to the emergency department for a headache. Was pt. sent in by a medical professional or institution? @ -No Did you speak to anyone other than the patient for history? @ -No Did you review nursing and triage notes? @ -Yes, and I agree, it is accurate with regards to the patient's symptoms. Were old charts reviewed? @ -No Differential Diagnosis? @ -Differential Headache: Migraine, tension, cluster, carbon monoxide, central venous thrombosis, pension karma temporal arteritis, acute closure glaucoma, intercranial hemorrhage, mastoiditis, sinusitis, head injury, this is not meant to be an all-inclusive list. EKG interpreted by me (3pts min.)? @ -Not obtained X-rays interpreted by me (1pt min.)? @ -Not obtained CT interpreted by me (1pt min.)? @ -CT scan of the brain obtained. My interpretation identifies no acute intracranial hemorrhage. U/S interpreted by me (1pt. min.)? @ -Not obtained What testing was considered but not performed? (CT, X-rays, U/S, labs)? Why? @ -None What meds were considered but not given? Why? @ -None Did you discuss the management of the patient with other professionals? @ -No Did you reconcile home meds? @ -No Was smoking cessation discussed for >3mins.? @ -No Was critical care preformed (if so, how long)? @ -No Were there social determinants of health that impacted care today? How? (Homelessness, low income, unemployed, alcoholism, drug addiction, transportation, low edu. Level, literacy, decrease access to med. care, snf, rehab)? @ -No Was there de-escalation of care discussed even if they declined? (Discuss DNR or withdrawal of care, Hospice)? @ -No What co-morbidities impacted this encounter? (DM, HTN, Smoking, COPD, CAD, Cancer, CVA, Hep., AIDS, mental health diagnosis, sleep apnea, morbid obesity)? @ -Migraine Was patient admitted / discharged? @ -Discharged. Patient was concerned that this felt different than her typical migraines and requested imaging. CT scan of the brain obtained revealing no acute process. Pain was treated in the emergency department. Patient discharged home in stable condition. Case discussed with ED attending Dr. Anderson. Return precautions reviewed in depth, the patient is instructed to return to the emergency department with any new, worsening, or concerning symptoms. Patient verbalized understanding. Undiagnosed new problem with uncertain prognosis? @ -None Drug Therapy requiring intensive monitoring for toxicity (Heparin, Nitro, Insulin, Cardizem)? @ -None Were any procedures done? @ -None Diagnosis/symptom? @ -Migraine Acute, or Chronic, or Acute on Chronic? @ -Acute Uncomplicated (without systemic symptoms) or Complicated (systemic symptoms)? @ -Uncomplicated Side effects of treatment? @ -None Exacerbation, Progression, or Severe Exacerbation] @ -Not applicable Poses a threat to life or bodily function? @ -No - Radiology Data Radiology results: report reviewed, image reviewed Disposition Clinical Impression: Headache Disposition: HOME SELF-CARE Instructions (If sedation given, give patient instructions): Acute Headache (ED) Additional Instructions: Return to the emergency department with any new, worsening, or concerning symptoms. Follow up with your primary care provider in 1-2 days. Is patient prescribed a controlled substance at d/c from ED?: No Referrals: Alfred Varela [Primary Care Provider] - 1-2 days Time of Disposition: 20:46
--- NOTE | 2024-11-02 20:36 | CT ---
EXAMINATION TYPE: CT brain wo con DATE OF EXAM: 11/02/2024 8:07 PM COMPARISON: Prior CT study 05/21/2024. CLINICAL INDICATION: Female, 39 years old with history of Headache, YOUNG. Recent syncopal episodes. TECHNIQUE: Brain: Axial CT images of the brain were obtained with coronal and sagittal reformats created and rev iewed. Contrast used: None. Oral contrast used: None. CT DLP: 1124.4 mGycm, Automated exposure control for dose reduction was used. FINDINGS: Brain: Extra-axial spaces: No abnormal extra-axial fluid collections. Ventricular system: Within normal limits Cerebral parenchyma: No acute intraparenchymal hemorrhage or mass effect. The hicks-white junction is well differentiated. Cerebellum: Unremarkable. Mass effect: No evidence of midline shift. Intracranial vasculature: unremarkable Soft tissues: Normal. Calvarium/osseous structures: No depressed skull fracture. Paranasal sinuses and mastoid air cells: Mild scattered paranasal sinus disease. Visualized orbits: Orbital contents are intact. IMPRESSION: No acute intracranial process. [facility], , 11/02/2024 8:33 PM
[2024-11-02] MEDS: diphenhydrAMINE 50 MG/ML 1 ML VIAL IM STA (21:46)
[2024-11-02] MEDS: KETOROLAC 15 MG/ML 1 ML VIAL IM STA (21:46)
[2024-11-02] MEDS: HYDROmorphone 1 MG/ML 1 ML SYRINGE IM STA (21:46)
== END 2024-11-02 21:54 | disposition home or self-care (01) ==
LOC: EC 15:17
DX: G43.909 Migraine, unspecified, not intractable, without status migrainosus (principal); Z88.1 Allergy status to other antibiotic agents; Z88.5 Allergy status to narcotic agent; Z88.8 Allergy status to other drugs, medicaments and biological substances
CPT/HCPCS: 70450; 99283; 96372 ×3; J1200; J1171; J1885

== ENCOUNTER 2024-11-08 20:41 | Observation (INO) | payer BC ==
--- NOTE | 2024-11-08 21:38 | XR ---
EXAMINATION TYPE: XR chest 2V DATE OF EXAM: 11/08/2024 9:33 PM COMPARISON: Chest radiographs from 09/10/2023 TECHNIQUE: XR chest 2V Frontal and lateral views of the chest. CLINICAL INDICATION:Female, 39 years old with history of chest pain; FINDINGS: Lungs/Pleura: There is no evidence of pleural effusion, focal consolidation, or pneumothorax. Pulmonary vascularity: Unremarkable. Heart/mediastinum: Cardiomediastinal silhouette is unremarkable. Musculoskeletal: No acute osseous pathology. IMPRESSION: No acute cardiopulmonary disease/process. [facility], , 11/08/2024 9:35 PM
--- NOTE | 2024-11-08 21:57 | ED ---
Chest Pain HPI - General Chief Complaint: Chest Pain Stated Complaint: chest pain Time Seen by Provider: 11/08/24 21:29 Source: patient, RN notes reviewed, old records reviewed Mode of arrival: ambulatory Limitations: no limitations - History of Present Illness Initial Comments: This is a 39-year-old female to the ER for evaluation as patient presents today for evaluation regards to severe chest pain some chest wall bruising noted. Anterior chest wall pain left-sided chest pain with some arm numbness and tingling. Left arm, patient was recently on a chest pain observation at [facility] and she had to leave due to some family activity at home. She presents today for further evaluation of chest pain she was told there was an abnormal finding on her ultrasound, echo MD Complaint: chest pain -: days(s) Pain Location: left chest Pain Radiation: LUE Severity: moderate Severity scale (1-10): 4 Quality: tightness Consistency: intermittent Improves With: nothing Worsens With: nothing Anginal Symptoms: nausea, dyspnea Other Symptoms: palpitations Treatments Prior to Arrival: none - Related Data Home Medications Medication Instructions Recorded Confirmed Levothyroxine Sodium [Synthroid] 50 mcg PO DAILY 05/05/14 10/13/24 Cetirizine HCl [Zyrtec] 10 mg PO DAILY 08/30/19 10/13/24 Nystatin 100,000 Unit/gm Powd 1 applic TOPICAL BID PRN 12/12/21 10/13/24 [Mycostatin Powder] Ergocalciferol (Vitamin D2) 1,250 mcg PO GARCIA 05/19/22 10/13/24 [Drisdol (50,000 Iu)] Fluconazole 200 mg PO DAILY PRN 05/19/22 10/13/24 Acetaminophen Tab [Tylenol] 650 mg PO Q6H PRN 10/02/22 10/13/24 Lasmiditan Succinate [Reyvow] 50 mg PO DAILY PRN 10/02/22 10/13/24 Metoclopramide [Reglan] 10 mg PO DAILY PRN 10/02/22 10/13/24 Ketorolac [Toradol] 10 mg PO Q6HR PRN 10/30/22 10/13/24 HYDROcodone/APAP 10-325MG [Alpha 1 tab PO BID PRN 11/19/23 10/13/24 10-325] hydrOXYzine HCL [Atarax] 100 mg PO HS PRN 04/28/24 10/13/24 tiZANidine [Zanaflex] 2 mg PO HS PRN 04/28/24 10/13/24 Dextroamphetamine/Amphetamine 40 mg PO DAILY 06/27/24 10/13/24 [Adderall] Pregabalin [Lyrica] 225 mg PO BID 07/31/24 10/13/24 buPROPion XL [Wellbutrin XL] 300 mg PO HS 07/31/24 10/13/24 Furosemide [Lasix] 20 mg PO BID 08/27/24 10/13/24 Potassium Chloride ER [K-Dur 10] 1 tab PO DAILY 09/01/24 10/13/24 ALPRAZolam [Xanax] 0.5 mg PO BID PRN 10/13/24 10/13/24 DULoxetine HCL [Cymbalta] 60 mg PO HS 10/13/24 10/13/24 Allergies Allergy/AdvReac Type Severity Reaction Status Date / Time cephalexin [From Keflex] Allergy Rash/Hives Verified 11/08/24 20:53 codeine AdvReac Hallucinati Verified 11/08/24 20:53 ons tramadol AdvReac Hallucinati Verified 11/08/24 20:53 ons valacyclovir HCl AdvReac BLURRED Verified 11/08/24 20:53 [From Valtrex] VISION Review of Systems ROS Statement: Those systems with pertinent positive or pertinent negative responses have been documented in the HPI. ROS Other: All systems not noted in ROS Statement are negative. EKG Findings - EKG Comments: EKG Findings:: EKG is sinus 75 UT 154 QRS 105 QTc 419 - EKG Results: EKG: interpreted by ERMD Past Medical History Past Medical History: Asthma, Diabetes Mellitus, Fibromyalgia, GERD/Reflux, Sleep Apnea/CPAP/BIPAP, Thyroid Disorder Additional Past Medical History / Comment(s): Migraines with aura, DDD, NIDDM ty pe II- Per Dr no longer considered diabetic due to weight loss surgery + improved A1C, diverticulitis with perforation/colostomy since reversed, IBS, chronic seroma, CARLITOS/no device-improvement since surgery , polycystic ovaries, hypothyroid, season allergies History of Any Multi-Drug Resistant Organisms: ESBL Date of last positivie culture/infection: 10/10/24 MDRO Source:: urine Past Surgical History: Bariatric Surgery, Cholecystectomy, Hernia Repair, Hysterectomy, Uterine Ablation Additional Past Surgical History / Comment(s): 06/06/21 sleeve gastrectomy, Rt Breast biopsy. bowel resection with colostomy/ later colostomy reversal, abdominal surgery to remove scar tissue, EGD, colonoscopy, lower back pain procedures, uterine ablation, lysis of adhesions 07/11/22, 02/04/24-laparscopic hysterectomy. panniculectomy 06-30-24 Past Anesthesia/Blood Transfusion Reactions: No Reported Reaction Additional Past Anesthesia/Blood Transfusion Reaction / Comment(s): No reaction w/ blood Past Psychological History: Anxiety, Bipolar, Depression Smoking Status: Never smoker Past Alcohol Use History: Rare Past Drug Use History: None Reported - Past Family History Mother History Unknown: Yes Family Medical History: COPD Additional Family Medical History / Comment(s): Mother from COPD at the age of 55 yrs. Maternal grandmother - esophageal cancer Brother(s) Family Medical History: Diabetes Mellitus Father Family Medical History: Unable to Obtain General Exam Limitations: no limitations General appearance: alert, in no apparent distress Head exam: Present: atraumatic, normocephalic, normal inspection Eye exam: Present: normal appearance, PERRL, EOMI. Absent: scleral icterus, conjunctival injection, periorbital swelling ENT exam: Present: normal exam, mucous membranes moist Neck exam: Present: normal inspection. Absent: tenderness, meningismus, lymphadenopathy Respiratory exam: Present: normal lung sounds bilaterally. Absent: respiratory distress, wheezes, rales, rhonchi, stridor Cardiovascular Exam: Present: regular rate, normal rhythm, normal heart sounds. Absent: systolic murmur, diastolic murmur, rubs, gallop, clicks GI/Abdominal exam: Present: soft, normal bowel sounds. Absent: distended, tenderness, guarding, rebound, rigid Extremities exam: Present: normal inspection, full ROM, normal capillary refill. Absent: tenderness, pedal edema, joint swelling, calf tenderness Back exam: Present: normal inspection Neurological exam: Present: alert, oriented X3, CN II-XII intact Psychiatric exam: Present: normal affect, normal mood Skin exam: Present: warm, dry, intact, normal color. Absent: rash Course Vital Signs 11/08/24 20:51 Temperature 98.7 F Pulse Rate 71 Respiratory 18 Rate Blood Pressure 116/78 O2 Sat by Pulse 100 Oximetry - Reevaluation(s) Reevaluation #1: 11/08/24 22:26 Medical records reviewed Reevaluation #2: 11/08/24 22:26 Patient symptoms remain, pain is improved Reevaluation #3: 11/08/24 22:27 Patient informed of results questions answered Reevaluation #4: Was pt. sent in by a medical professional or institution (SOILA Carrera, [employer]ARR[employer] F[employer]IC[employer], urgent care, hospital, or half-way...) When possible be specific @ -no Did you speak to anyone other than the patient for history (EMS, parent, family, police, friend...)? What history was obtained from this source @ -no Did you review nursing and triage notes (agree or disagree)? Why? @ -agree Are old charts reviewed (outside hosp., previous admission, EMS record, old EKG, old radiological studies, urgent care reports/EKG's, half-way records)? Report findings @ -yes Differential Diagnosis (chest pain, altered mental status, abdominal pain women, abdominal pain men, vaginal bleeding, weakness, fever, dyspnea, syncope, headache, dizziness, GI bleed, back pain, seizure, CVA, palpatations, mental health, musculoskeletal)? @ -prior EKG interpreted by me (3pts min.). @ -yes X-rays interpreted by me (1pt min.). @ -yes negative for acute disease CT interpreted by me (1pt min.). @ -no U/S interpreted by me (1pt. min.). @ -no What testing was considered but not performed or refused? (CT, X-rays, U/S, labs)? Why? @ -none What meds were considered but not given or refused? Why? @ -none Did you discuss the management of the patient with other professionals (professionals i.e. SOILA Carrera, [employer], lab, RT, psych nurse, social and political studies professor, finishing area operator, teacher, flight radio officer, shoe parts caser)? Give summary @ -no Was smoking cessation discussed for >3mins.? @ -no Was critical care preformed (if so, how long)? @ -no Were there social determinants of health that impacted care today? How? (Homelessness, low income, unemployed, alcoholism, drug addiction, transportation, low edu. Level, literacy, decrease access to med. care, intermediate, rehab)? @ -none Was there de-escalation of care discussed even if they declined (Discuss DNR or withdrawal of care, Hospice)? DNR status @ -no What co-morbidities impacted this encounter? (DM, HTN, Smoking, COPD, CAD, Cancer, CVA, ARF, Chemo, Hep., AIDS, mental health diagnosis, sleep apnea, morbid obesity)? @ -none Was patient admitted / discharged? Hospital course, mention meds given and route, prescriptions, significant lab abnormalities, going to OR and other pertinent info. @ - Undiagnosed new problem with uncertain prognosis? @ -no Drug Therapy requiring intensive monitoring for toxicity (Heparin, Nitro, Insulin, Cardizem)? @ -no Were any procedures done? @ -no Diagnosis/symptom? @ - Acute, or Chronic, or Acute on Chronic? @ -Acute Uncomplicated (without systemic symptoms) or Complicated (systemic symptoms)? @ -Complicated Side effects of treatment? @ -no Exacerbation, Progression, or Severe Exacerbation? @ -exacerbation Poses a threat to life or bodily function? How? (Chest pain, [place], [place], pneumonia, PE, COPD, DKA, ARF, appy, cholecystitis, CVA, Diverticulitis, Homicidal, Suicidal, threat to staff... and all critical care pts) @ -yes Reevaluation #5: Differential Palpitations Ventricular arrhythmias, atrial arrhythmias, myocardial infarction, anemia, thyrotoxicosis, electrolyte imbalance, hypokalemia, pulmonary embolism, pulmonary disease, drugs, alcohol, anxiety, stress.... This is not meant to be an all-inclusive list. - Consultations Consultation #1: Spoke with [facility] who agrees to admit this patient Chest Pain MDM - MDM 39 female to ER for chest pain observation patient admitted to the chest pain observation does have recent surgical history Disposition Clinical Impression: Anterior pleuritic pain, Chest pain Disposition: ADMITTED IP TO THIS HOSP Condition: Fair Is patient prescribed a controlled substance at d/c from ED?: No Time of Disposition: 23:00
[2024-11-08] MEDS ORDERED: NALOXONE 0.4 MG/ML 1 ML VIAL IV PRN (22:16)
--- NOTE | 2024-11-09 00:03 | US ---
EXAMINATION TYPE: US venous doppler duplex LE LT DATE OF EXAM: 11/08/2024 11:14 PM COMPARISON: NONE CLINICAL INDICATION: Female, 39 years old; patient states no h/o dvt, leg goes numb, no swelling TECHNIQUE: The lower extremity deep venous system is examined utilizing real time linear array sonog mar with graded compression, color doppler sonography, and spectral doppler. SIDE PERFORMED: Left FINDINGS: VESSELS IMAGED: Common Femoral Vein Deep Femoral Vein Greater Saphenous Vein * Femoral Vein Popliteal Vein Small Saphenous Vein * Proximal Calf Veins (* superficial vessels) Left Leg: Negative for DVT, Color Doppler imaging shows patency of the vessels. Spectral waveforms a re within normal limits. IMPRESSION: No evidence of deep vein thrombosis of the left lower extremity. [facility], , 11/09/2024 12:01 AM
[2024-11-09] MEDS: SODIUM CHLORIDE 0.9% 1,000 ML IV STA (00:21)
[2024-11-09] MEDS: SODIUM CHLORIDE 0.9% 1,000 ML IV SCH (00:25)
[2024-11-09 00:26] LABS: Basophils # (A) 0.11 10*3/uL (0.00-0.10); Eosinophils # (A) 0.17 10*3/uL (0.04-0.35); Eosinophils % (A) 1.5 %; HCT 34.9 % (37.2-46.3); HGB 10.6 g/dL (12.0-15.0); Lymphocytes # (A) 1.76 10*3/uL (0.90-5.00); Lymphocytes % (A) 15.4 %; MCH 22.5 pg (27.0-32.0); MCHC 30.4 g/dL (32.0-37.0); MCV 74.1 fL (80.0-97.0); Mean Platelet Volume 10.1 fL (9.5-12.2); Monocytes # (A) 0.76 10*3/uL (0.20-1.00); Monocytes % (A) 6.6 %; Neutrophils # (A) 8.61 10*3/uL (1.80-7.70); Neutrophils % (A) 75.2 %; Platelet Count 379 10*3/uL (140-440); RBC 4.71 10*6/uL (4.10-5.20); RDW 21.1 % (11.5-14.5); WBC 11.45 10*3/uL (4.50-10.00)
[2024-11-09] MEDS: ONDANSETRON 4 MG/2 ML VIAL IVP STA (00:27)
[2024-11-09] MEDS: diphenhydrAMINE 50 MG/ML 1 ML VIAL IVP STA (00:27)
[2024-11-09] MEDS: HYDROmorphone 1 MG/ML 1 ML SYRINGE IVP STA (00:27)
[2024-11-09 00:36] LABS: ALT 22 U/L (4-34); AST 26 U/L (14-36); African American GFR (CKD) >90 (>60 ml/min/1.73 sqM); Albumin 4.3 g/dL (3.5-5.0); Alkaline Phosphatase 106 U/L (38-126); Anion Gap 10 mmol/L; Blood Urea Nitrogen 15 mg/dL (7-17); Calcium 9.8 mg/dL (8.4-10.2); Carbon Dioxide 27 mmol/L (22-30); Chloride 101 mmol/L (98-107); Glucose 93 mg/dL (74-99); Lipase 200 U/L (23-300); Magnesium 2.2 mg/dL (1.6-2.3); Non-African American GFR(CKD) >90 (>60 ml/min/1.73 sqM); Potassium 3.5 mmol/L (3.5-5.1); Sodium 138 mmol/L (137-145); Total Bilirubin 0.9 mg/dL (0.2-1.3); Total Protein 7.1 g/dL (6.3-8.2)
[2024-11-09 00:45] LABS: NT-Pro-B-Type Natriuretic Pept 24 pg/mL
[2024-11-09 00:55] LABS: Partial Thromboplastin Time 23.4 sec (22.0-30.0); Prothrombin Time 10.7 sec (10.0-12.5)
--- NOTE | 2024-11-09 03:14 | CT ---
EXAM: CT Angiography Chest With Intravenous Contrast CLINICAL HISTORY: ITS.REASON CT Reason: Chest pain, elevated d-dimer TECHNIQUE: Axial computed tomographic angiography images of the chest with intravenous contrast. CTDI is 18 mGy and DLP is 457.1 mGy-cm. This CT exam was performed using one or more of the following dose reduction techniques: automated exposure control, adjustment of the mA and/or kV according to patient size, and/or use of iterative reconstruction technique. MIP reconstructed images were created and reviewed. COMPARISON: No relevant prior studies available. FINDINGS: Pulmonary arteries: Unremarkable. No pulmonary embolism. Aorta: No acute findings. No thoracic aortic aneurysm. Lungs: Unremarkable. No mass. No consolidation. Pleural space: Unremarkable. No significant effusion. No pneumothorax. Heart: Unremarkable. No cardiomegaly. No significant pericardial effusion. No evidence of RV dysfunction. Mediastinum: Small hiatal hernia. Gastric sleeve. Bones/joints: No acute fracture. No dislocation. Soft tissues: Unremarkable. Lymph nodes: Unremarkable. No enlarged lymph nodes. IMPRESSION: No acute findings in the visualized arteries of the chest.
[2024-11-09] MEDS: HYDROmorphone 1 MG/ML 1 ML SYRINGE IVP PRN (04:27)
--- NOTE | 2024-11-09 08:11 | P.CRDCN ---
History of Present Illness Consult date: 11/09/24 Consult reason: chest pain History of present illness: This is Manuel Rice NP, I'm dictating on behalf of Dr. Ha's H&P and A&P The patient was interviewed and examined. HPI: Patient is a pleasant 39-year-old female with a past medical history that includes asthma, diabetes, fibromyalgia, GERD, sleep apnea, diverticulosis, i rritable bowel syndrome, hypothyroidism who presented to the ER with complaints of severe chest pain. Patient reported anterior chest wall pain on the left side with some arm numbness and tingling. Patient was recently in the hospital at a different facility for similar complaints but had to leave due to some family things at home. Patient presented today because she was told there was an abnormal finding on her echo. EKG demonstrated normal sinus rhythm. Troponin negative. Cardiology was consulted due to the patient's chest pain. ER notes did note bruising on the chest. Records are reviewed: last echocardiogram in our records is from 08/24/2021 which demonstrates a normal left ventricle size, moderate concentric left ventricular hypertrophy, systolic function overall is normal with an EF between 60 to 65%, trace mitral regurgitation, mild tricuspid regurgitation, no pericardial effusion. Patient is still reporting chest pain, however has obvious palpable chest wall pain with bruising noted. She is unsure how she obtained the bruising on her chest. Patient reports that her echo at another facility approximately 2 weeks ago showed a possible positive bubble study, with possible PFO. ROS: [No fever, chills, or rigors] [no cough, phlegm, or expectoration] [no nausea, vomiting, or diarrhea] [no hematuria, dysuria] [no musculoskelatal complaints] [no strokes or seizures] [no skin lesions] EXAMINATION: GENERAL: Well-appearing, well-nourished and in no acute distress. NECK: Supple without JVD or thyromegaly. LUNGS: Breath sounds clear to auscultation bilaterally. Respiration equal and unlabored. No wheezes, rales or rhonchi. HEART: Regular rate and rhythm without murmurs, rubs or gallops. S1 and S2 heard. EXTREMITIES: Normal range of motion, no edema. No clubbing or cyanosis. Peripheral pulses intact and strong. REVIEW OF LABS, ECG & MEDICAL DATA: LABS: White count 11.4, hemoglobin 10.6, platelets 379, D-dimer 0.92, sodium 138, potassium 3.5, chloride 101, BUN 15, creatinine 0.72, calcium 9.8, magnesium 2.2, troponin less than 0.012 x 3, BNP 24 EKG: Normal sinus rhythm IMAGING: Chest x-ray dated 11/08/2024 demonstrates no acute cardiopulmonary disease/process. Venous Doppler dated 11/08/2024 demonstrates no evidence of deep vein thrombosis of the left lower extremity. CT angiogram of the chest dated 11/09/2024 demonstrates no acute findings in the visualized arteries of the chest VITALS: Temp 98.3, pulse 67, respirations 18, blood pressure 117/82, O2 saturation 100% on room air IMPRESSION: 1. Chest pain, noncardiac 2. History of diabetes 3. History fibromyalgia 4. History of bariatric surgery PLAN: Patient's chest pain is not cardiac related. She has obvious bruising and exquisite chest pain noted to palpation. EKG is normal, enzymes are within normal limits. Patient reports a positive bubble study on recent echo, she was concerned that her migraines may be caused by this. We explained to the patient that under no circumstances that she to have any surgery to close this possible PFO, as there is no relation between it and migraines. No further recommendations from a cardiology standpoint. Thank you for the consult and allowing us to participate in the care of this patient. Past Medical History Past Medical History: Asthma, Diabetes Mellitus, Fibromyalgia, GERD/Reflux, Sleep Apnea/CPAP/BIPAP, Thyroid Disorder Additional Past Medical History / Comment(s): Migraines with aura, DDD, NIDDM type II- Per Dr no longer considered diabetic due to weight loss surgery + improved A1C, diverticulitis with perforation/colostomy since reversed, IBS, chronic seroma, CARLITOS/no device-improvement since surgery , polycystic ovaries, hypothyroid, season allergies History of Any Multi-Drug Resistant Organisms: ESBL Date of last positivie culture/infection: 10/10/24 MDRO Source:: urine Past Surgical History: Bariatric Surgery, Cholecystectomy, Hernia Repair, Hysterectomy, Uterine Ablation Additional Past Surgical History / Comment(s): 06/06/21 sleeve gastrectomy, Rt Breast biopsy. bowel resection with colostomy/ later colostomy reversal, abdominal surgery to remove scar tissue, EGD, colonoscopy, lower back pain procedures, uterine ablation, lysis of adhesions 2/28/23, 02/04/24-laparscopic hysterectomy. panniculectomy 06-30-24 Past Anesthesia/Blood Transfusion Reactions: No Reported Reaction Additional Past Anesthesia/Blood Transfusion Reaction / Comment(s): No reaction w/ blood Past Psychological History: Anxiety, Bipolar, Depression Additional Psychological History / Comment(s): Pt has eating disorder-binge eat er, borderline personality disorder. Pt resides with her boyfriend and his mother. She is independent. Smoking Status: Never smoker Past Alcohol Use History: Rare Additional Past Alcohol Use History / Comment(s): 2 drinks/month Past Drug Use History: None Reported - Past Family History Mother History Unknown: Yes Family Medical History: COPD Additional Family Medical History / Comment(s): Mother from COPD at the age of 55 yrs. Maternal grandmother - esophageal cancer Brother(s) Family Medical History: Diabetes Mellitus Father Family Medical History: Unable to Obtain Medications and Allergies Home Medications Medication Instructions Recorded Confirmed Type Levothyroxine Sodium [Synthroid] 50 mcg PO DAILY 05/05/14 10/13/24 History Cetirizine HCl [Zyrtec] 10 mg PO DAILY 08/30/19 10/13/24 History Nystatin 100,000 Unit/gm Powd 1 applic TOPICAL BID PRN 12/12/21 10/13/24 History [Mycostatin Powder] Ergocalciferol (Vitamin D2) 1,250 mcg PO GARCIA 05/19/22 10/13/24 History [Drisdol (50,000 Iu)] Fluconazole 200 mg PO DAILY PRN 05/19/22 10/13/24 History Acetaminophen Tab [Tylenol] 650 mg PO Q6H PRN 10/02/22 10/13/24 History Lasmiditan Succinate [Reyvow] 50 mg PO DAILY PRN 10/02/22 10/13/24 History Metoclopramide [Reglan] 10 mg PO DAILY PRN 10/02/22 10/13/24 History Ketorolac [Toradol] 10 mg PO Q6HR PRN 10/30/22 10/13/24 History HYDROcodone/APAP 10-325MG [[place] 1 tab PO BID PRN 11/19/23 10/13/24 History 10-325] hydrOXYzine HCL [Atarax] 100 mg PO HS PRN 04/28/24 10/13/24 History tiZANidine [Zanaflex] 2 mg PO HS PRN 04/28/24 10/13/24 History Dextroamphetamine/Amphetamine 40 mg PO DAILY 06/27/24 10/13/24 History [Adderall] Pregabalin [Lyrica] 225 mg PO BID 07/31/24 10/13/24 History buPROPion XL [Wellbutrin XL] 300 mg PO HS 07/31/24 10/13/24 History Furosemide [Lasix] 20 mg PO BID 08/27/24 10/13/24 History Potassium Chloride ER [K-Dur 10] 1 tab PO DAILY 09/01/24 10/13/24 History ALPRAZolam [Xanax] 0.5 mg PO BID PRN 10/13/24 10/13/24 History DULoxetine HCL [Cymbalta] 60 mg PO HS 10/13/24 10/13/24 History Allergies Allergy/AdvReac Type Severity Reaction Status Date / Time cephalexin [From Keflex] Allergy Rash/Hives Verified 11/08/24 20:53 codeine AdvReac Hallucinati Verified 11/08/24 20:53 ons tramadol AdvReac Hallucinati Verified 11/08/24 20:53 ons valacyclovir HCl AdvReac BLURRED Verified 11/08/24 20:53 [From Valtrex] VISION Physical Exam Vitals: Vital Signs Temp Pulse Pulse Resp BP BP Pulse Ox 11/09/24 03:54 98.3 F 67 18 117/82 100 11/09/24 03:20 98.4 F 68 16 104/64 95 11/08/24 20:51 98.7 F 71 18 116/78 100 Intake and Output 11/08/24 11/09/24 11/09/24 22:59 06:59 14:59 Intake Total 150 Balance 150 Intake: Intake, IV Titration 150 Amount Sodium Chloride 0.9% 1, 150 000 ml @ 75 mls/hr IV . [id number] [facility] Rx#:[id number] Other: # Voids 1 Weight 95.254 kg 95.254 kg Results 11/08/24 23:58 11/08/24 23:58 Cardiac Enzymes 11/08/24 11/08/24 11/09/24 Range/Units 23:58 23:58 01:11 AST 26 (14-36) U/L Troponin I <0.012 <0.012 (0.000-0.034) ng/mL 11/09/24 Range/Units 03:55 AST (14-36) U/L Troponin I <0.012 (0.000-0.034) ng/mL Coagulation 11/08/24 Range/Units 23:58 PT 10.7 (10.0-12.5) sec APTT 23.4 (22.0-30.0) sec CBC 11/08/24 Range/Units 23:58 WBC 11.45 H (4.50-10.00) 10*3/uL RBC 4.71 (4.10-5.20) 10*6/uL Hgb 10.6 L (12.0-15.0) g/dL Hct 34.9 L (37.2-46.3) % Plt Count 379 (140-440) 10*3/uL Comprehensive Metabolic Panel 11/08/24 Range/Units 23:58 Sodium 138 (137-145) mmol/L Potassium 3.5 (3.5-5.1) mmol/L Chloride 101 (98-107) mmol/L Carbon Dioxide 27 (22-30) mmol/L BUN 15 (7-17) mg/dL Creatinine 0.72 (0.52-1.04) mg/dL Glucose 93 (74-99) mg/dL Calcium 9.8 (8.4-10.2) mg/dL AST 26 (14-36) U/L ALT 22 (4-34) U/L Alkaline Phosphatase 106 (38-126) U/L Total Protein 7.1 (6.3-8.2) g/dL Albumin 4.3 (3.5-5.0) g/dL Current Medications Generic Name Dose Route Start Last Admin Trade Name Freq PRN Reason Stop Dose Admin Diphenhydramine HCl 25 mg 11/08/24 22:17 Diphenhydramine 50 Mg/Ml 1 Ml Vial IVP Q6HR PRN Allergy Symptoms Hydromorphone HCl 1 mg 11/08/24 22:16 11/09/24 07:59 Hydromorphone 1 Mg/Ml 1 Ml Syringe IVP 1 mg Q3HR PRN Administration Severe Pain (Scale 7 to 10) Sodium Chloride 1,000 mls @ 75 mls/hr 11/08/24 22:30 11/09/24 04:27 Saline 0.9% IV 75 mls/hr .[id number] NATY Administration Naloxone HCl 0.2 mg 11/08/24 22:16 Naloxone 0.4 Mg/Ml 1 Ml Vial IV Q2M PRN Opioid Reversal Ondansetron HCl 4 mg 11/08/24 22:16 Ondansetron 4 Mg/2 Ml Vial IVP Q8HR PRN Nausea And Vomiting Intake and Output 11/08/24 11/09/24 11/09/24 22:59 06:59 14:59 Intake Total 150 Balance 150 Intake: Intake, IV Titration 150 Amount Sodium Chloride 0.9% 1, 150 000 ml @ 75 mls/hr IV . [id number] NATY Rx#:[id number] Other: # Voids 1 Weight 95.254 kg 95.254 kg 11/08/24 23:58 11/08/24 23:58
[2024-11-09] MEDS: diphenhydrAMINE 50 MG/ML 1 ML VIAL IVP PRN (11:59)
[2024-11-09] MEDS ORDERED: HYDROcodone/APAP 5-325MG 1 EACH TAB PO PRN (12:09)
[2024-11-09] MEDS ORDERED: ALPRAZolam 0.5 MG TAB PO PRN (14:48)
[2024-11-09] MEDS ORDERED: [UNRECOGNIZED DRUG - OTHER] PO PRN (14:48)
[2024-11-09] MEDS ORDERED: tiZANidine 4 MG TAB PO PRN (14:48)
[2024-11-09] MEDS ORDERED: FLUCONAZOLE 100 MG TAB PO PRN (14:48)
[2024-11-09] MEDS ORDERED: hydrOXYzine HCL 25 MG TAB PO PRN (14:48)
[2024-11-09] MEDS: KETOROLAC 15 MG/ML 1 ML VIAL IVP SCH (15:44)
[2024-11-09] MEDS: ONDANSETRON 4 MG/2 ML VIAL IVP PRN (15:44)
--- NOTE | 2024-11-09 15:50 | XR ---
EXAMINATION TYPE: XR ribs bilateral DATE OF EXAM: 11/09/2024 3:27 PM INDICATION: Patient age:Female; 39 years old; Reason for study: chest pain with bruising; PHH. pain COMPARISON: Chest radiograph 11/08/2024 TECHNIQUE: Frontal and oblique views of the bilateral ribs. FINDINGS: The ribs have a normal appearance. No evidence of fracture. Overall, the lungs are clear. The cardiac silhouette is normal in size. The remaining osseous structures are intact. IMPRESSION: No acute osseous pathology. [facility], , 11/09/2024 3:48 PM
[2024-11-09] MEDS: ERGOCALCIFEROL 1,250 MCG (50,000 IU) CAPSULE PO SCH (16:56)
--- NOTE | 2024-11-09 20:44 | HP ---
HISTORY AND PHYSICAL CHIEF COMPLAINT: Chest pain. HISTORY OF PRESENT ILLNESS: This is a 39-year-old woman with a past medical history of multiple medical problems including diabetes mellitus, fibromyalgia, history of migraine, history of bariatric surgery, anxiety, bipolar, depression, eating disorder, being followed by Dr. Puente in the outpatient setting. Was complaining of severe chest pain mostly on the left side and anterior part. The patient has some arm numbness and tingling. The patient also has some bruise of the anterior part of the chest. The patient was evaluated at [facility] and subsequently came to [facility]. The evaluation showed WBC 11.45. The D-dimer was 0.92. A CT angio of the chest, which I reviewed personally showed no acute changes. Venous Doppler was negative also. Cardiology saw the patient, thought that the pain is not cardiac related. There is no history of any fever, rigors or chills at this time. PAST MEDICAL HISTORY: Reviewed include asthma, diabetes mellitus type 2. Rest of the history from chart was also reviewed. HOME MEDICATIONS: Reviewed include Zanaflex. Dose and rest of medications reviewed. ALLERGIES: Keflex. Rest of the allergies reviewed. FAMILY HISTORY: History of COPD. SOCIAL HISTORY: No history of smoking or alcohol. REVIEW OF SYSTEMS: Fourteen-point review of systems negative, except as mentioned earlier. PHYSICAL EXAMINATION: VITAL SIGNS: Pulse is 78, blood pressure 111/60, respirations 15. HEENT: Conjunctivae normal. NECK: No jugular venous distention. CARDIOVASCULAR: S1, S2 muffled. RESPIRATORY: Breath sounds diminished at the bases. Few scattered rhonchi. No crackles. ABDOMEN Soft, no tenderness. LEGS: No edema. No swelling. NERVOUS SYSTEM: Nonfocal. CHEST: On examination of the chest, multiple bruises in the anterior part of chest with some local tenderness present. LABORATORY DATA: Presented labs are D-dimer is 0.92. WBC 7.5. ASSESSMENT: 1. Anterior chest pain, possibly musculoskeletal with chest wall bruises. 2. Coronary artery disease unlikely per Cardiology. 3. Elevated WBC. 4. Microcytic anemia. 5. Diabetes mellitus, type 2. 6. Asthma. 7. Fibromyalgia. 8. History of bariatric surgery. 9. Anxiety, bipolar depression, borderline personality disorder. 10.Eating disorder with binge eating. 11.Multiple complex medical issues. RECOMMENDATIONS AND DISCUSSION: This 39-year-old woman presented with multiple complex medical issues. We will monitor the patient closely. I would recommend to continue the current medications, symptomatic treatment. I would also recommend closely follow with Cardiology. Resume the home medications, symptomatic treatment of the pain. I would also recommend x-rays of the anterior ribs towards the possibility of any rib fractures. Prognosis guarded. Further recommendations to follow. See orders for further details. MMODL / IJN: [id number] /
[2024-11-09] MEDS: buPROPion XL 300 MG TAB.ER.24H PO SCH (20:59)
[2024-11-09] MEDS: DULoxetine HCL 60 MG CAPSULE.DR PO SCH (20:59)
[2024-11-09] MEDS: FUROSEMIDE 20 MG TAB PO SCH (20:59)
[2024-11-09] MEDS: HEPARIN SODIUM,PORCINE 5,000 UNIT/ML 1 ML VIAL SQ SCH (21:00)
[2024-11-09] MEDS: PREGABALIN 75 MG CAP PO SCH (21:00)
[2024-11-10] MEDS: ACETAMINOPHEN TAB 325 MG TAB PO PRN (02:19)
[2024-11-10] MEDS: LEVOTHYROXINE 50 MCG TAB PO SCH (06:23)
[2024-11-10 07:53] LABS: Basophils # (A) 0.05 X 10*3/uL (0.00-0.10); Basophils % (A) 0.5 %; Eosinophils # (A) 0.15 X 10*3/uL (0.04-0.35); Eosinophils % (A) 1.4 %; HGB 8.6 g/dL (12.0-15.0); Lymphocytes # (A) 1.61 X 10*3/uL (0.90-5.00); Lymphocytes % (A) 15.1 %; MCHC 28.7 g/dL (32.0-37.0); MCV 76.7 FL (80.0-97.0); Mean Platelet Volume 10.7 FL (9.5-12.2); Monocytes # (A) 1.09 X 10*3/uL (0.20-1.00); Monocytes % (A) 10.2 %; NRBC Per 100 WBC 0 X 10*3/uL (0.00-0.01); Neutrophils % (A) 72.4 %; Platelet Count 283 X 10*3/uL (140-440); RBC 3.91 X 10*6/uL (4.10-5.20); RDW 21.3 % (11.5-14.5); WBC 10.64 X 10*3/uL (4.50-10.00)
[2024-11-10 08:06] LABS: Blood Urea Nitrogen 9.6 mg/dL (9.0-27.0); Calcium 8.1 mg/dL (8.7-10.3); Carbon Dioxide 26.5 mmol/L (21.6-31.8); Chloride 103 mmol/L (96-109); Glucose 93 mg/dL (70-110); Potassium 3.7 mmol/L (3.5-5.5); Sodium 137 mmol/L (135-145)
[2024-11-10] MEDS: NON FORMULARY DRUG (Dextroamphetamine/Amphetamine [Adderall] 20 MG Tablet) PO SCH (09:31)
[2024-11-10] MEDS: LORATADINE 10 MG TAB PO SCH (09:33)
[2024-11-10] MEDS: ATORVASTATIN 40 MG TAB PO SCH (09:33)
[2024-11-10] MEDS: ASPIRIN 81 MG PO SCH (09:33)
[2024-11-10] MEDS: POTASSIUM CHLORIDE ER 10 MEQ TAB.ER.PRT PO SCH (09:33)
[2024-11-10] MEDS: METOCLOPRAMIDE 10 MG TAB PO PRN (10:32)
[2024-11-10 14:50] VITALS: BP 138/78; PULSE 102; RESP 19; TEMP 99.5
[2024-11-10] MEDS: oxyCODONE-APAP 5-325MG 1 EACH TAB PO PRN (16:10)
--- NOTE | 2024-11-13 00:37 | P.DS ---
Providers Date of admission: 11/08/24 22:16 Expected date of discharge: 11/10/24 Attending physician: Oswaldo Sarkar Consults: 11/08/24 22:16 Consult Physician Routine Consulting Provider: Lulu Navarrete Consult Reason/Comments: cp Do you want consulting provider notified?: Yes Primary care physician: Alfred Varela Hospital Course: Final diagnosis Anterior chest pain, likely musculoskeletal with chest wall bruises, ACS ruled out Coronary artery disease per cardiology Elevated WBC, possibly reactive diabetes mellitus type II History of asthma, not in exacerbation Fibromyalgia history History of bariatric surgery Anxiety, bipolar personality disorder Eating disorder with binge eating Obesity with a BMI of 32.9 GI prophylaxis DVT prophylaxis Full code Discharge disposition Patient is being discharged in a stable condition with guarded prognosis to home. Patient will follow-up with Dr. Varela in the outpatient setting upon discharge. Patient is to continue with outpatient follow-up with cardiology as scheduled. Patient to follow-up with her [employer] outpatient. Total time taken is greater than 35 minutes. Hospital course This is a 39-year-old female who was recently admitted with chest pain on the left side also numbness and tingling of the arm on the left. Patient was evaluated by cardiology recommending outpatient follow-up. Likely m usculoskeletal. Patient follow-up with pain management outpatient as well. Patient has been cleared by consultation. Please refer to consultation notes for further HPI. Currently no reports of chest pain, shortness of breath, or palpitations. Patient is afebrile. No reports of nausea or vomiting and patient is tolerating diet. Patient will be discharged home today. Guarded prognosis and high risk for readmissions Physical exam: Gen: This is a 39-year-old female who is awake, alert and oriented x 3, well- developed, obese HEENT: Head is atraumatic, normocephalic. Pupils equal, round. Sclerae is anicteric. NECK: Supple. No JVD. No lymphadenopathy. No thyromegaly. LUNGS: Diminished breath sounds bilaterally otherwise clear to auscultation. No wheezes or rhonchi. No intercostal retractions. HEART:, S2 are muffled ABDOMEN: Soft. Obese bowel sounds are present. No masses. No tenderness. EXTREMITIES: No pedal edema. No calf tenderness. NEUROLOGICAL: Patient is awake, alert and oriented x3. Cranial nerves 2 through 12 are grossly intact. Please refer to medication reconciliation sheet for a list of medications. The impression and plan of care has been dictated by Rachel Peñaloza, Nurse Practitioner as directed. Dr. Mello MD I have performed a history and examination and MDM of this patient, discussed the same with the dictator, and agree with the dictator's assessment and plan as written ,documented as a scribe. Based on total visit time, I have performed more than 50% of the visit. Patient Condition at Discharge: Fair Plan - Discharge Summary Discharge Rx Participant: No New Discharge Prescriptions: New Ondansetron Odt [Zofran Odt] 4 mg PO Q8HR PRN #20 tab PRN Reason: Nausea Continue Levothyroxine Sodium [Synthroid] 50 mcg PO DAILY Cetirizine HCl [Zyrtec] 10 mg PO DAILY Ergocalciferol (Vitamin D2) [Drisdol (50,000 Iu)] 1,250 mcg PO GARCIA Lasmiditan Succinate [Reyvow] 50 mg PO DAILY PRN PRN Reason: Migraine Headache tiZANidine [Zanaflex] 2 mg PO HS PRN PRN Reason: Muscle Spasm hydrOXYzine HCL [Atarax] 100 mg PO HS PRN PRN Reason: Insomnia Pregabalin [Lyrica] 225 mg PO BID Furosemide [Lasix] 20 mg PO BID DULoxetine HCL [Cymbalta] 60 mg PO HS Nystatin 100,000 Unit/gm Powd [Mycostatin Powder] 1 applic TOPICAL BID PRN PRN Reason: Rash Fluconazole 200 mg PO DAILY PRN PRN Reason: yeast infection Metoclopramide [Reglan] 10 mg PO DAILY PRN PRN Reason: Nausea Acetaminophen Tab [Tylenol] 650 mg PO Q6H PRN PRN Reason: Pain Or Fever > 100.5 Dextroamphetamine/Amphetamine [Adderall] 40 mg PO DAILY buPROPion XL [Wellbutrin XL] 300 mg PO HS Potassium Chloride ER [K-Dur 10] 1 tab PO DAILY ALPRAZolam [Xanax] 0.5 mg PO BID PRN PRN Reason: Anxiety Atorvastatin [Lipitor] 40 mg PO DAILY oxyCODONE-APAP 5-325MG [Percocet 5-325 mg] 1 tab PO TID PRN PRN Reason: Pain Aspirin EC [Ecotrin Low Dose] 81 mg PO DAILY Discharge Medication List Levothyroxine Sodium [Synthroid] 50 mcg PO DAILY 05/05/14 [History] Cetirizine HCl [Zyrtec] 10 mg PO DAILY 08/30/19 [History] Nystatin 100,000 Unit/gm Powd [Mycostatin Powder] 1 applic TOPICAL BID PRN 12/12/21 [History] Ergocalciferol (Vitamin D2) [Drisdol (50,000 Iu)] 1,250 mcg PO GARCIA 05/19/22 [History] Fluconazole 200 mg PO DAILY PRN 05/19/22 [History] Acetaminophen Tab [Tylenol] 650 mg PO Q6H PRN 10/02/22 [History] Lasmiditan Succinate [Reyvow] 50 mg PO DAILY PRN 10/02/22 [History] Metoclopramide [Reglan] 10 mg PO DAILY PRN 10/02/22 [History] hydrOXYzine HCL [Atarax] 100 mg PO HS PRN 04/28/24 [History] tiZANidine [Zanaflex] 2 mg PO HS PRN 04/28/24 [History] Dextroamphetamine/Amphetamine [Adderall] 40 mg PO DAILY 06/27/24 [History] Pregabalin [Lyrica] 225 mg PO BID 07/31/24 [History] buPROPion XL [Wellbutrin XL] 300 mg PO HS 07/31/24 [History] Furosemide [Lasix] 20 mg PO BID 08/27/24 [History] Potassium Chloride ER [K-Dur 10] 1 tab PO DAILY 09/01/24 [History] ALPRAZolam [Xanax] 0.5 mg PO BID PRN 10/13/24 [History] DULoxetine HCL [Cymbalta] 60 mg PO HS 10/13/24 [History] Aspirin EC [Ecotrin Low Dose] 81 mg PO DAILY 11/09/24 [History] Atorvastatin [Lipitor] 40 mg PO DAILY 11/09/24 [History] oxyCODONE-APAP 5-325MG [Percocet 5-325 mg] 1 tab PO TID PRN 11/09/24 [History] Ondansetron Odt [Zofran Odt] 4 mg PO Q8HR PRN #20 tab 11/10/24 [Rx] Follow up Appointment(s)/Referral(s): Alfred Varela [Primary Care Provider] - 1-2 days Richard Carey MD [STAFF PHYSICIAN] - 1 Week Activity/Diet/Wound Care/Special Instructions: Activity limited until follow-up Follow-up with primary care provider on discharge Follow-up with cardiology outpatient Continue taking medications as prescribed Follow-up with pain management outpatient Discharge Disposition: HOME SELF-CARE
== END 2024-11-10 17:36 | disposition home or self-care (01) ==
LOC: EC 20:41 → 6NMEDSUR 22:16
PROVIDERS: ADMIT Hospitalist; ATTEND Hospitalist
DX: R07.89 Other chest pain (principal); I25.10 Atherosclerotic heart disease of native coronary artery without angina pectoris; S20.219A Contusion of unspecified front wall of thorax, initial encounter; X58.XXXA Exposure to other specified factors, initial encounter; D50.9 Iron deficiency anemia, unspecified; E11.9 Type 2 diabetes mellitus without complications; K21.9 Gastro-esophageal reflux disease without esophagitis; G47.33 Obstructive sleep apnea (adult) (pediatric); E03.9 Hypothyroidism, unspecified; F31.30 Bipolar disorder, current episode depressed, mild or moderate severity, unspecified; F41.9 Anxiety disorder, unspecified; M79.7 Fibromyalgia; F60.3 Borderline personality disorder; F50.9 Eating disorder, unspecified; F50.819 Binge eating disorder, unspecified; E66.9 Obesity, unspecified; Z68.32 Body mass index [BMI] 32.0-32.9, adult; Z98.84 Bariatric surgery status; Z79.890 Hormone replacement therapy; Z79.899 Other long term (current) drug therapy; Z88.1 Allergy status to other antibiotic agents; Z88.5 Allergy status to narcotic agent
CPT/HCPCS: 96376 ×3; 96361 ×2; 96372 ×2; 96375 ×2; 96374; 99285; 93005; 85379; 83880; 80053; 80048; 83690; 83735; 84484 ×2; 85025 ×2; 85610; 85730; 71110; 71046; 93971; 71275; G0378 ×3; J1200; J1644 ×2; J2405 ×2; J1171 ×2; J1885 ×2; Q9967

== ENCOUNTER 2024-11-21 20:21 | Emergency (ER) | payer BC ==
[2024-11-21 20:26] VITALS: RESP 18; TEMP 98.2
--- NOTE | 2024-11-21 20:46 | ED ---
Headache HPI - General Chief Complaint: Headache Stated Complaint: Neuro symptoms, itching, loss of coordination Time Seen by Provider: 11/21/24 20:35 Source: patient, RN notes reviewed Mode of arrival: ambulatory Limitations: no limitations - History of Present Illness Initial Comments: This is a 39-year-old female with history including DM, fibromyalgia and migraines presenting for headache (01/21) occurring at 1500 today. Patient endorses constant pressure to the back of her head with associated nausea. Patient states she feels "in space", "fuzzy" and with associated "jolting and twitching" of her bilateral upper extremities for the past several weeks/months. Patient states she feels "weak", stating she is dropping things often. Patient states she suffered 2 syncopal episodes over the past 2 months. Patient states she underwent a recent brain MRA on Sunday with upcoming MRI imaging over the next 2 weeks. Denies dizziness, vision changes, chest pain, dyspnea, hemiplegia, dysarthria. MD Complaint: "migraine" Onset/Timin -: days(s) Time: 15:00 Onset Description: sudden Location: occipital Severity scale (1-10): 9 Quality: aching Consistency: constant Associated Symptoms: nausea, tingling/numbness, weakness Treatments Prior to Arrival: none - Related Data Home Medications Medication Instructions Recorded Confirmed Levothyroxine Sodium [Synthroid] 50 mcg PO DAILY 05/05/14 11/09/24 Cetirizine HCl [Zyrtec] 10 mg PO DAILY 08/30/19 11/09/24 Nystatin 100,000 Unit/gm Powd 1 applic TOPICAL BID PRN 12/12/21 11/09/24 [Mycostatin Powder] Ergocalciferol (Vitamin D2) 1,250 mcg PO GARCIA 05/19/22 11/09/24 [Drisdol (50,000 Iu)] Fluconazole 200 mg PO DAILY PRN 05/19/22 11/09/24 Acetaminophen Tab [Tylenol] 650 mg PO Q6H PRN 10/02/22 11/09/24 Lasmiditan Succinate [Reyvow] 50 mg PO DAILY PRN 10/02/22 11/09/24 Metoclopramide [Reglan] 10 mg PO DAILY PRN 10/02/22 11/09/24 hydrOXYzine HCL [Atarax] 100 mg PO HS PRN 04/28/24 11/09/24 tiZANidine [Zanaflex] 2 mg PO HS PRN 04/28/24 11/09/24 Dextroamphetamine/Amphetamine 40 mg PO DAILY 06/27/24 11/09/24 [Adderall] Pregabalin [Lyrica] 225 mg PO BID 07/31/24 11/09/24 buPROPion XL [Wellbutrin XL] 300 mg PO HS 07/31/24 11/09/24 Furosemide [Lasix] 20 mg PO BID 08/27/24 11/09/24 Potassium Chloride ER [K-Dur 10] 1 tab PO DAILY 09/01/24 11/09/24 ALPRAZolam [Xanax] 0.5 mg PO BID PRN 10/13/24 11/09/24 DULoxetine HCL [Cymbalta] 60 mg PO HS 10/13/24 11/09/24 Aspirin EC [Ecotrin Low Dose] 81 mg PO DAILY 11/09/24 11/09/24 Atorvastatin [Lipitor] 40 mg PO DAILY 11/09/24 11/09/24 oxyCODONE-APAP 5-325MG [Percocet 1 tab PO TID PRN 11/09/24 11/09/24 5-325 mg] Previous Rx's Medication Instructions Recorded Ondansetron Odt [Zofran Odt] 4 mg PO Q8HR PRN #20 tab 11/10/24 Levofloxacin [Levaquin] 750 mg PO DAILY 5 Days #5 tab 11/27/24 Ondansetron Odt [Zofran Odt] 4 mg PO Q8HR PRN #20 tab 11/27/24 Allergies Allergy/AdvReac Type Severity Reaction Status Date / Time cephalexin [From Keflex] Allergy Rash/Hives Verified 11/26/24 20:48 codeine AdvReac Hallucinati Verified 11/26/24 20:48 ons tramadol AdvReac Hallucinati Verified 11/26/24 20:48 ons valacyclovir HCl AdvReac BLURRED Verified 11/26/24 20:48 [From Valtrex] VISION Review of Systems ROS Statement: Those systems with pertinent positive or pertinent negative responses have been documented in the HPI. ROS Other: All systems not noted in ROS Statement are negative. Past Medical History Past Medical History: Asthma, Diabetes Mellitus, Fibromyalgia, GERD/Reflux, Sleep Apnea/CPAP/BIPAP, Thyroid Disorder Additional Past Medical History / Comment(s): Migraines with aura, DDD, NIDDM type II- Per Dr no longer considered diabetic due to weight loss surgery + improved A1C, diverticulitis with perforation/colostomy since reversed, IBS, chronic seroma, CARLITOS/no device-improvement since surgery , polycystic ovaries, hypothyroid, season allergies History of Any Multi-Drug Resistant Organisms: ESBL Date of last positivie culture/infection: 10/10/24 MDRO Source:: urine Past Surgical History: Bariatric Surgery, Cholecystectomy, Hernia Repair, Hysterectomy, Uterine Ablation Additional Past Surgical History / Comment(s): 06/06/21 sleeve gastrectomy, Rt Breast biopsy. bowel resection with colostomy/ later colostomy reversal, abdominal surgery to remove scar tissue, EGD, colonoscopy, lower back pain procedures, uterine ablation, lysis of adhesions 07/11/22, 02/04/24-laparscopic hysterectomy. panniculectomy 06-30-24 Past Anesthesia/Blood Transfusion Reactions: No Reported Reaction Additional Past Anesthesia/Blood Transfusion Reaction / Comment(s): No reaction w/ blood Past Psychological History: Anxiety, Bipolar, Depression Smoking Status: Never smoker Past Alcohol Use History: Rare Past Drug Use History: None Reported - Past Family History Mother History Unknown: Yes Family Medical History: COPD Additional Family Medical History / Comment(s): Mother from COPD at the age of 55 yrs. Maternal grandmother - esophageal cancer Brother(s) Family Medical History: Diabetes Mellitus Father Family Medical History: Unable to Obtain General Exam Limitations: no limitations General appearance: alert, in no apparent distress Head exam: Present: atraumatic, normocephalic, normal inspection Eye exam: Present: normal appearance, PERRL, EOMI. Absent: scleral icterus, conjunctival injection, periorbital swelling Pupils: Present: normal accommodation ENT exam: Present: normal exam, mucous membranes moist Neck exam: Present: normal inspection. Absent: tenderness, meningismus, lymphadenopathy Respiratory exam: Present: normal lung sounds bilaterally. Absent: respiratory distress, wheezes, rales, rhonchi, stridor, accessory muscle use Cardiovascular Exam: Present: regular rate, normal rhythm, normal heart sounds. Absent: systolic murmur, diastolic murmur, rubs, gallop, clicks GI/Abdominal exam: Present: soft, normal bowel sounds. Absent: distended, tenderness, guarding, rebound, rigid Extremities exam: Present: normal inspection, full ROM, normal capillary refill, other (Bilateral upper extremities neurovascular motor function intact. Radial pulse +2, capillary refill less than 2 seconds. Empty can, belly press and lift off test strength 5/5). Absent: tenderness, pedal edema, joint swelling, calf tenderness Back exam: Present: tenderness (Positive left trapezius muscle spasm and point tenderness), muscle spasm. Absent: vertebral tenderness Neurological exam: Present: alert, oriented X3, CN II-XII intact (Patient notes diminished left facial nerve sensation on palpation), normal gait, other ([place]y stroke normal. Patient states left upper extremity sensation is slightly diminished with normal strength noted.) Psychiatric exam: Present: normal affect, normal mood Skin exam: Present: warm, dry, intact, normal color. Absent: rash Course Vital Signs 11/21/24 11/21/24 11/21/24 20:24 21:42 23:26 Temperature 98.2 F Pulse Rate 74 70 70 Respiratory 18 18 18 Rate Blood Pressure 114/74 117/74 111/67 O2 Sat by Pulse 100 98 98 Oximetry Medical Decision Making - Medical Decision Making Was pt. sent in by a medical professional or institution (SOILA Carrera, SAFETY SPECIALIST, urgent care, hospital, or senior living...) When possible be specific @ -No Did you speak to anyone other than the patient for history (EMS, parent, family, police, friend...)? What history was obtained from this source @ -No Did you review nursing and triage notes (agree or disagree)? Why? @ -I reviewed and agree with nursing and triage notes Were old charts reviewed (outside hosp., previous admission, EMS record, old EKG, old radiological studies, urgent care reports/EKG's, senior living records)? Report findings @ -No old charts were reviewed Differential Diagnosis (chest pain, altered mental status, abdominal pain women, abdominal pain men, vaginal bleeding, weakness, fever, dyspnea, syncope, headache, dizziness, GI bleed, back pain, seizure, CVA, palpatations, mental health, musculoskeletal)? @ -Differential Headache: Migraine, tension, cluster, carbon monoxide, central venous thrombosis, pension karma temporal arteritis, acute closure glaucoma, intercranial hemorrhage, mastoiditis, sinusitis, head injury, this is not meant to be an all-inclusive list. EKG interpreted by me (3pts min.). @ -Sinus rhythm without ST deviation or T wave inversion. Ventricular rate 64 bpm, NIHARIKA 183 ms, QRS 101 ms, QTc 449 ms. X-rays interpreted by me (1pt min.). @ -None done CT interpreted by me (1pt min.). @ -None done U/S interpreted by me (1pt. min.). @ -None done What testing was considered but not performed or refused? (CT, X-rays, U/S, labs)? Why? @ -None What meds were considered but not given or refused? Why? @ -None Did you discuss the management of the patient with other professionals (professionals i.e. , PA, SAFETY SPECIALIST, lab, RT, psych nurse, social media marketing analyst, head filter tank tender helper, te acher, traffic officer, leather case finisher)? Give summary @ -No Was smoking cessation discussed for >3mins.? @ -No Was critical care preformed (if so, how long)? @ -No Were there social determinants of health that impacted care today? How? (Homelessness, low income, unemployed, alcoholism, drug addiction, transportation, low edu. Level, literacy, decrease access to med. care, skilled nursing, rehab)? @ -No Was there de-escalation of care discussed even if they declined (Discuss DNR or withdrawal of care, Hospice)? DNR status @ -No What co-morbidities impacted this encounter? (DM, HTN, Smoking, COPD, CAD, Cancer, CVA, ARF, Chemo, Hep., AIDS, mental health diagnosis, sleep apnea, morbid obesity)? @ -None Was patient admitted / discharged? Hospital course, mention meds given and route, prescriptions, significant lab abnormalities, going to OR and other pertinent info. @ -Patient initially provided IV normal saline, Reglan, Toradol, Benadryl. Lab work notable for chronic iron deficient anemia, thrombocytosis 673, hypermagnesemia 2.4 and elevated alkaline phosphatase 173. WBC 6.47, normal kidney function and transaminase. Patient notes ongoing pain, from 9/10 to 7/10, and nausea. Provided p.o. Tylenol and IV Dilaudid, Toradol, Decadron and Zofran. Patient notes additional pain relief. Advised patient to follow-up with PCP/neurology for ongoing management of headaches and to attend upcoming appointments next week for further imaging/workup. Discussed patient with Dr. Gordillo. Undiagnosed new problem with uncertain prognosis? @ -No Drug Therapy requiring intensive monitoring for toxicity (Heparin, Nitro, Insulin, Cardizem)? @ -No Were any procedures done? @ -No Diagnosis/symptom? @ -Migraine Acute, or Chronic, or Acute on Chronic? @ -Acute Uncomplicated (without systemic symptoms) or Complicated (systemic symptoms)? @ -Complicated Side effects of treatment? @ -No Exacerbation, Progression, or Severe Exacerbation? @ -No Poses a threat to life or bodily function? How? (Chest pain, [place], [place], pneumonia, PE, COPD, DKA, ARF, appy, cholecystitis, CVA, Diverticulitis, Homicidal, Suicidal, threat to staff... and all critical care pts) @ -No - Lab Data Result diagrams: 11/21/24 00:00 11/21/24 00:00 Lab Results 11/21/24 11/21/24 Range/Units 00:00 00:00 WBC 6.47 (4.50-10.00) 10*3/uL RBC 4.39 (4.10-5.20) 10*6/uL Hgb 10.0 L (12.0-15.0) g/dL Hct 33.9 L (37.2-46.3) % MCV 77.2 L (80.0-97.0) fL MCH 22.8 L (27.0-32.0) pg MCHC 29.5 L (32.0-37.0) g/dL Plt Count 673 H (140-440) 10*3/uL MPV 9.1 L (9.5-12.2) fL Immature Gran % (Auto) 0.5 % Neutrophils % (Manual) 52 % Lymphocytes % (Manual) 39 % Monocytes % (Manual) 4 % Eosinophils % (Manual) 5 % Immature Gran # 0.03 (0.00-0.04) 10*3/uL Neutrophils # (Manual) 3.36 (1.3-7.7) k/uL Lymphocytes # (Manual) 2.52 (1.0-4.8) k/uL Monocytes # (Manual) 0.26 (0-1.0) k/uL Eosinophils # (Manual) 0.32 (0-0.7) k/uL Nucleated RBCs 0 (0-0) /100 WBC Manual Slide Review Performed Stomatocytes Present Sodium 142 (137-145) mmol/L Potassium 4.3 (3.5-5.1) mmol/L Chloride 102 (98-107) mmol/L Carbon Dioxide 30 (22-30) mmol/L Anion Gap 10 mmol/L BUN 14 (7-17) mg/dL Creatinine 0.94 (0.52-1.04) mg/dL Est GFR (CKD-EPI)AfAm 87 (>60 ml/min/1.73 sqM) Est GFR (CKD-EPI)NonAf 76 (>60 ml/min/1.73 sqM) Glucose 103 H (74-99) mg/dL Calcium 9.3 (8.4-10.2) mg/dL Magnesium 2.4 H (1.6-2.3) mg/dL Total Bilirubin 0.3 (0.2-1.3) mg/dL AST 23 (14-36) U/L ALT 24 (4-34) U/L Alkaline Phosphatase 173 H (38-126) U/L Total Protein 6.9 (6.3-8.2) g/dL Albumin 3.8 (3.5-5.0) g/dL Disposition Clinical Impression: Migraine headache Disposition: HOME SELF-CARE Condition: Good Instructions (If sedation given, give patient instructions): Migraine Headache (ED) Is patient prescribed a controlled substance at d/c from ED?: No Referrals: None,Stated [Primary Care Provider] - 1-2 days Time of Disposition: 23:30
[2024-11-21] MEDS: diphenhydrAMINE 50 MG/ML 1 ML VIAL IVP STA (20:50)
[2024-11-21] MEDS: KETOROLAC 15 MG/ML 1 ML VIAL IVP STA ×2 (20:51→23:28)
[2024-11-21] MEDS: METOCLOPRAMIDE 5 MG/ML 2 ML VIAL IVP STA (20:51)
[2024-11-21] MEDS: SODIUM CHLORIDE 0.9% 1,000 ML IV STA (20:51)
[2024-11-21 20:58] LABS: HCT 33.9 % (37.2-46.3); HGB 10.0 g/dL (12.0-15.0); MCH 22.8 pg (27.0-32.0); MCHC 29.5 g/dL (32.0-37.0); MCV 77.2 fL (80.0-97.0); Platelet Count 673 10*3/uL (140-440); RBC 4.39 10*6/uL (4.10-5.20); RDW 21.6 % (11.5-14.5); WBC 6.47 10*3/uL (4.50-10.00)
[2024-11-21 21:16] LABS: ALT 24 U/L (4-34); AST 23 U/L (14-36); African American GFR (CKD) 87 (>60 ml/min/1.73 sqM); Albumin 3.8 g/dL (3.5-5.0); Alkaline Phosphatase 173 U/L (38-126); Anion Gap 10 mmol/L; Blood Urea Nitrogen 14 mg/dL (7-17); Calcium 9.3 mg/dL (8.4-10.2); Carbon Dioxide 30 mmol/L (22-30); Chloride 102 mmol/L (98-107); Glucose 103 mg/dL (74-99); Magnesium 2.4 mg/dL (1.6-2.3); Non-African American GFR(CKD) 76 (>60 ml/min/1.73 sqM); Potassium 4.3 mmol/L (3.5-5.1); Sodium 142 mmol/L (137-145); Total Protein 6.9 g/dL (6.3-8.2)
[2024-11-21 21:42] LABS: Eosinophils # (M) 0.32 k/uL (0-0.7); Lymphocytes # (M) 2.52 k/uL (1.0-4.8); Monocytes # (M) 0.26 k/uL (0-1.0); Neutrophils # (M) 3.36 k/uL (1.3-7.7); Neutrophils % (M) 52 %; Total Cells Counted 100
[2024-11-21 21:43] VITALS: PULSE 70
[2024-11-21 21:43] LABS: Stomatocytes Present
[2024-11-21] MEDS: ONDANSETRON 4 MG/2 ML VIAL IVP STA (22:14)
[2024-11-21] MEDS: HYDROmorphone 0.5 MG/0.5 ML SYRINGE IVP STA (22:16)
[2024-11-21] MEDS: DEXAMETHASONE SOD PHOSPHATE 4 MG/ML 1 ML VIAL IVP STA (22:17)
[2024-11-21 23:26] VITALS: BP 111/67
[2024-11-21] MEDS: ACETAMINOPHEN TAB 500 MG TAB PO STA (23:30)
== END 2024-11-21 23:34 | disposition home or self-care (01) ==
LOC: EC 20:21 → SUPCPDRO 20:21 → EC 23:34
DX: G43.909 Migraine, unspecified, not intractable, without status migrainosus (principal); Z88.1 Allergy status to other antibiotic agents; Z88.5 Allergy status to narcotic agent; Z88.8 Allergy status to other drugs, medicaments and biological substances
CPT/HCPCS: 36415; 93005; 80053; 83735; 85025; 99284; 96374; 96375; 96376; 96361; J1200; J1100; J2765; J2405; J1885; J1171

== ENCOUNTER 2024-11-26 20:39 | Emergency (ER) | payer BC ==
--- NOTE | 2024-11-26 21:29 | ED ---
Abdominal Pain HPI - General Chief Complaint: Abdominal Pain Stated Complaint: Abd pain Time Seen by Provider: 11/26/24 20:53 Source: patient, RN notes reviewed Mode of arrival: ambulatory Limitations: no limitations - History of Present Illness Initial Comments: This is a 39-year-old female who presents to the emergency department for abdominal pain. Patient states that for the last 12 hours she has had sharp stabbing pain in her left lower quadrant/left-sided pelvic region. She has associated nausea and vomiting. States that it feels like when she has had previous ovarian cysts rupture or if she has been having issues with her scar tissue in that area from prior surgeries. MD Complaint: abdominal pain - Related Data Home Medications Medication Instructions Recorded Confirmed Levothyroxine Sodium [Synthroid] 50 mcg PO DAILY 05/05/14 11/09/24 Cetirizine HCl [Zyrtec] 10 mg PO DAILY 08/30/19 11/09/24 Nystatin 100,000 Unit/gm Powd 1 applic TOPICAL BID PRN 12/12/21 11/09/24 [Mycostatin Powder] Ergocalciferol (Vitamin D2) 1,250 mcg PO GARCIA 05/19/22 11/09/24 [Drisdol (50,000 Iu)] Fluconazole 200 mg PO DAILY PRN 05/19/22 11/09/24 Acetaminophen Tab [Tylenol] 650 mg PO Q6H PRN 10/02/22 11/09/24 Lasmiditan Succinate [Reyvow] 50 mg PO DAILY PRN 10/02/22 11/09/24 Metoclopramide [Reglan] 10 mg PO DAILY PRN 10/02/22 11/09/24 hydrOXYzine HCL [Atarax] 100 mg PO HS PRN 04/28/24 11/09/24 tiZANidine [Zanaflex] 2 mg PO HS PRN 04/28/24 11/09/24 Dextroamphetamine/Amphetamine 40 mg PO DAILY 06/27/24 11/09/24 [Adderall] Pregabalin [Lyrica] 225 mg PO BID 07/31/24 11/09/24 buPROPion XL [Wellbutrin XL] 300 mg PO HS 07/31/24 11/09/24 Furosemide [Lasix] 20 mg PO BID 08/27/24 11/09/24 Potassium Chloride ER [K-Dur 10] 1 tab PO DAILY 09/01/24 11/09/24 ALPRAZolam [Xanax] 0.5 mg PO BID PRN 10/13/24 11/09/24 DULoxetine HCL [Cymbalta] 60 mg PO HS 10/13/24 11/09/24 Aspirin EC [Ecotrin Low Dose] 81 mg PO DAILY 11/09/24 11/09/24 Atorvastatin [Lipitor] 40 mg PO DAILY 11/09/24 11/09/24 oxyCODONE-APAP 5-325MG [Percocet 1 tab PO TID PRN 11/09/24 11/09/24 5-325 mg] Previous Rx's Medication Instructions Recorded Ondansetron Odt [Zofran Odt] 4 mg PO Q8HR PRN #20 tab 11/10/24 Levofloxacin [Levaquin] 750 mg PO DAILY 5 Days #5 tab 11/27/24 Ondansetron Odt [Zofran Odt] 4 mg PO Q8HR PRN #20 tab 11/27/24 Allergies Allergy/AdvReac Type Severity Reaction Status Date / Time cephalexin [From Keflex] Allergy Rash/Hives Verified 11/26/24 20:48 codeine AdvReac Hallucinati Verified 11/26/24 20:48 ons tramadol AdvReac Hallucinati Verified 11/26/24 20:48 ons valacyclovir HCl AdvReac BLURRED Verified 11/26/24 20:48 [From Valtrex] VISION Review of Systems ROS Statement: Those systems with pertinent positive or pertinent negative responses have been documented in the HPI. ROS Other: All systems not noted in ROS Statement are negative. Past Medical History Past Medical History: Asthma, Diabetes Mellitus, Fibromyalgia, GERD/Reflux, Sleep Apnea/CPAP/BIPAP, Thyroid Disorder Additional Past Medical History / Comment(s): Migraines with aura, DDD, NIDDM type II- Per Dr no longer considered diabetic due to weight loss surgery + improved A1C, diverticulitis with perforation/colostomy since reversed, IBS, chronic seroma, CARLITOS/no device-improvement since surgery , polycystic ovaries, hypothyroid, season allergies History of Any Multi-Drug Resistant Organisms: ESBL Date of last positivie culture/infection: 10/10/24 MDRO Source:: urine Past Surgical History: Bariatric Surgery, Cholecystectomy, Hernia Repair, Hysterectomy, Uterine Ablation Additional Past Surgical History / Comment(s): 06/06/21 sleeve gastrectomy, Rt Breast biopsy. bowel resection with colostomy/ later colostomy reversal, ab dominal surgery to remove scar tissue, EGD, colonoscopy, lower back pain procedures, uterine ablation, lysis of adhesions 07/11/22, 02/04/24-laparscopic hysterectomy. panniculectomy 06-30-24 Past Anesthesia/Blood Transfusion Reactions: No Reported Reaction Additional Past Anesthesia/Blood Transfusion Reaction / Comment(s): No reaction w/ blood Past Psychological History: Anxiety, Bipolar, Depression Smoking Status: Never smoker Past Alcohol Use History: Rare Past Drug Use History: None Reported - Past Family History Mother History Unknown: Yes Family Medical History: COPD Additional Family Medical History / Comment(s): Mother from COPD at the age of 55 yrs. Maternal grandmother - esophageal cancer Brother(s) Family Medical History: Diabetes Mellitus Father Family Medical History: Unable to Obtain General Exam Limitations: no limitations General appearance: alert, in no apparent distress Head exam: Present: atraumatic, normocephalic, normal inspection Respiratory exam: Present: normal lung sounds bilaterally. Absent: respiratory distress, wheezes, rales, rhonchi, stridor Cardiovascular Exam: Present: regular rate, normal rhythm GI/Abdominal exam: Present: soft, tenderness (Left lower quadrant). Absent: distended Neurological exam: Present: alert, oriented X3, CN II-XII intact Psychiatric exam: Present: normal affect, normal mood Skin exam: Present: warm, dry, intact, normal color. Absent: rash Course Vital Signs 11/26/24 20:49 Temperature 98.7 F Pulse Rate 82 Respiratory 16 Rate Blood Pressure 116/76 O2 Sat by Pulse 99 Oximetry Medical Decision Making - Medical Decision Making This is a 39-year-old female who presents to the emergency department for lower abdominal pain. Was pt. sent in by a medical professional or institution? @ -No Did you speak to anyone other than the patient for history? @ -No Did you review nursing and triage notes? @ -Yes, and I agree, it is accurate with regards to the patient's symptoms. Were old charts reviewed? @ -No Differential Diagnosis? @ -Differential Abdominal Pain Women: Appendicitis, Cholecystitis, diverticulosis, ischemic bowel, pancreatitis, hepatitis, UTI, gastroenteritis, AAA, incarcerated hernia, bowel obstruction, constipation, inflammatory bowel, hepatitis, peptic ulcer disease, splenic infarction, perforated viscus, vulvitis, ovarian torsion, PID, kidney stone, placenta abruption, this is not meant to be an all-inclusive list EKG interpreted by me (3pts min.)? @ -Not obtained X-rays interpreted by me (1pt min.)? @ -Not obtained CT interpreted by me (1pt min.)? @ -Not obtained U/S interpreted by me (1pt. min.)? @ -Transvaginal ultrasound obtained. My interpretation identifies no ovarian torsion. What testing was considered but not performed? (CT, X-rays, U/S, labs)? Why? @ -None What meds were considered but not given? Why? @ -None Did you discuss the management of the patient with other professionals? @ -No Did you reconcile home meds? @ -No Was smoking cessation discussed for >3mins.? @ -No Was critical care preformed (if so, how long)? @ -No Were there social determinants of health that impacted care today? How? (Homelessness, low income, unemployed, alcoholism, drug addiction, transportation, low edu. Level, literacy, decrease access to med. care, care home, rehab)? @ -No Was there de-escalation of care discussed even if they declined? (Discuss DNR or withdrawal of care, Hospice)? @ -No What co-morbidities impacted this encounter? (DM, HTN, Smoking, COPD, CAD, Cancer, CVA, Hep., AIDS, mental health diagnosis, sleep apnea, morbid obesity)? @ -DM, fibromyalgia Was patient admitted / discharged? @ -Discharged. Lab work demonstrates an elevated lactic acid of 2.7 and is otherwise relatively unremarkable. Urinalysis consistent with infection and urine was sent for culture. Transvaginal ultrasound demonstrates no signs of an ovarian torsion. She has a left ovarian cyst. Pain was treated in the emergenc y department. She is allergic to cephalosporins. Levaquin prescribed for management of the UTI with initial dose administered in the emergency department. Zofran prescribed as well for any additional nausea. Patient discharged home in stable condition. Case discussed with ED attending Dr. Anderson river. Return precautions reviewed in depth, the patient is instructed to return to the emergency department with any new, worsening, or concerning symptoms. Patient verbalized understanding. Undiagnosed new problem with uncertain prognosis? @ -None Drug Therapy requiring intensive monitoring for toxicity (Heparin, Nitro, Insulin, Cardizem)? @ -None Were any procedures done? @ -None Diagnosis/symptom? @ -Abdominal pain, UTI, nausea and vomiting Acute, or Chronic, or Acute on Chronic? @ -Acute Uncomplicated (without systemic symptoms) or Complicated (systemic symptoms)? @ -Uncomplicated Side effects of treatment? @ -None Exacerbation, Progression, or Severe Exacerbation] @ -Not applicable Poses a threat to life or bodily function? @ -No - Lab Data Result diagrams: 11/26/24 21:31 11/26/24 21:31 Lab Results 11/26/24 11/26/24 11/26/24 Range/Units 21:31 21:31 21:31 WBC 8.57 (4.50-10.00) 10*3/uL RBC 4.59 (4.10-5.20) 10*6/uL Hgb 10.6 L (12.0-15.0) g/dL Hct 35.9 L (37.2-46.3) % MCV 78.2 L (80.0-97.0) fL MCH 23.1 L (27.0-32.0) pg MCHC 29.5 L (32.0-37.0) g/dL Plt Count 572 H (140-440) 10*3/uL MPV 9.5 (9.5-12.2) fL Immature Gran % (Auto) 0.2 % Neutrophils % 51.0 % Lymphocytes % 37.7 % Monocytes % 6.5 % Eosinophils % 3.2 % Basophils % 1.4 % Immature Gran # 0.02 (0.00-0.04) 10*3/uL Neutrophils # 4.37 (1.80-7.70) 10*3/uL Lymphocytes # 3.23 (0.90-5.00) 10*3/uL Monocytes # 0.56 (0.20-1.00) 10*3/uL Eosinophils # 0.27 (0.04-0.35) 10*3/uL Basophils # 0.12 H (0.00-0.10) 10*3/uL Sodium 141 (137-145) mmol/L Potassium 4.5 (3.5-5.1) mmol/L Chloride 103 (98-107) mmol/L Carbon Dioxide 26 (22-30) mmol/L Anion Gap 12 mmol/L BUN 21 H (7-17) mg/dL Creatinine 0.94 (0.52-1.04) mg/dL Est GFR (CKD-EPI)AfAm 87 (>60 ml/min/1.73 sqM) Est GFR (CKD-EPI)NonAf 76 (>60 ml/min/1.73 sqM) Glucose 130 H (74-99) mg/dL Lactic Ac Sepsis Rflx Plasma Lactic Acid Yobani 2.7 H* (0.7-2.0) mmol/L Calcium 9.8 (8.4-10.2) mg/dL Total Bilirubin 0.3 (0.2-1.3) mg/dL AST 29 (14-36) U/L ALT 26 (4-34) U/L Alkaline Phosphatase 142 H (38-126) U/L Total Protein 6.9 (6.3-8.2) g/dL Albumin 4.0 (3.5-5.0) g/dL Lipase 324 H (23-300) U/L Urine Color Urine Appearance (Clear) Urine pH (5.0-8.0) Ur Specific [place] (1.001-1.035) Urine Protein (Negative) Urine Glucose (UA) (Negative) Urine Ketones (Negative) Urine Blood (Negative) Urine Nitrite (Negative) Urine Bilirubin (Negative) Urine Urobilinogen (<2.0) mg/dL Ur Leukocyte Esterase (Negative) Urine RBC (0-5) /hpf Urine WBC (0-5) /hpf Ur Squamous Epith Cells (0-4) /hpf Urine Bacteria (None) /hpf Urine Mucus (None) /hpf 11/26/24 11/26/24 Range/Units 22:39 23:06 WBC (4.50-10.00) 10*3/uL RBC (4.10-5.20) 10*6/uL Hgb (12.0-15.0) g/dL Hct (37.2-46.3) % MCV (80.0-97.0) fL MCH (27.0-32.0) pg MCHC (32.0-37.0) g/dL Plt Count (140-440) 10*3/uL MPV (9.5-12.2) fL Immature Gran % (Auto) % Neutrophils % % Lymphocytes % % Monocytes % % Eosinophils % % Basophils % % Immature Gran # (0.00-0.04) 10*3/uL Neutrophils # (1.80-7.70) 10*3/uL Lymphocytes # (0.90-5.00) 10*3/uL Monocytes # (0.20-1.00) 10*3/uL Eosinophils # (0.04-0.35) 10*3/uL Basophils # (0.00-0.10) 10*3/uL Sodium (137-145) mmol/L Potassium (3.5-5.1) mmol/L Chloride (98-107) mmol/L Carbon Dioxide (22-30) mmol/L Anion Gap mmol/L BUN (7-17) mg/dL Creatinine (0.52-1.04) mg/dL Est GFR (CKD-EPI)AfAm (>60 ml/min/1.73 sqM) Est GFR (CKD-EPI)NonAf (>60 ml/min/1.73 sqM) Glucose (74-99) mg/dL Lactic Ac Sepsis Rflx Y Plasma Lactic Acid Yobani (0.7-2.0) mmol/L Calcium (8.4-10.2) mg/dL Total Bilirubin (0.2-1.3) mg/dL AST (14-36) U/L ALT (4-34) U/L Alkaline Phosphatase (38-126) U/L Total Protein (6.3-8.2) g/dL Albumin (3.5-5.0) g/dL Lipase (23-300) U/L Urine Color Yellow Urine Appearance Cloudy H (Clear) Urine pH 6.5 (5.0-8.0) Ur Specific [place] 1.024 (1.001-1.035) Urine Protein Trace H (Negative) Urine Glucose (UA) Negative (Negative) Urine Ketones Negative (Negative) Urine Blood Negative (Negative) Urine Nitrite Positive H (Negative) Urine Bilirubin Negative (Negative) Urine Urobilinogen <2.0 (<2.0) mg/dL Ur Leukocyte Esterase Large H (Negative) Urine RBC 5 (0-5) /hpf Urine WBC >182 H (0-5) /hpf Ur Squamous Epith Cells 2 (0-4) /hpf Urine Bacteria Many H (None) /hpf Urine Mucus Occasional H (None) /hpf - Radiology Data Radiology results: report reviewed, image reviewed Disposition Clinical Impression: UTI (urinary tract infection), Abdominal pain, Nausea & vomiting Disposition: HOME SELF-CARE Instructions (If sedation given, give patient instructions): Urinary Tract Infection in Women (ED), Abdominal Pain (ED) Additional Instructions: Return to the emergency department with any new, worsening, or concerning symptoms. Take the antibiotic as prescribed for 5 days. Take the Zofran up to every 8 hours as needed for nausea and vomiting follow up with your primary care provider in 1-2 days. Prescriptions: Levofloxacin [Levaquin] 750 mg PO DAILY 5 Days #5 tab Ondansetron Odt [Zofran Odt] 4 mg PO Q8HR PRN #20 tab PRN Reason: Nausea And Vomiting Is patient prescribed a controlled substance at d/c from ED?: No Referrals: Fatimah Riggins MD [Primary Care Provider] - 1-2 days Time of Disposition: 00:05
[2024-11-26] MEDS: ONDANSETRON 4 MG/2 ML VIAL IVP STA (21:40)
[2024-11-26] MEDS: diphenhydrAMINE 50 MG/ML 1 ML VIAL IVP STA (21:41)
[2024-11-26] MEDS: KETOROLAC 15 MG/ML 1 ML VIAL IVP STA (21:41)
[2024-11-26] MEDS: SODIUM CHLORIDE 0.9% 1,000 ML IV ONE (21:42)
[2024-11-26] MEDS: HYDROmorphone 1 MG/ML 1 ML SYRINGE IVP STA (21:42)
[2024-11-26 21:49] LABS: Basophils # (A) 0.12 10*3/uL (0.00-0.10); Basophils % (A) 1.4 %; Eosinophils # (A) 0.27 10*3/uL (0.04-0.35); Eosinophils % (A) 3.2 %; HCT 35.9 % (37.2-46.3); HGB 10.6 g/dL (12.0-15.0); Lymphocytes # (A) 3.23 10*3/uL (0.90-5.00); Lymphocytes % (A) 37.7 %; MCH 23.1 pg (27.0-32.0); MCHC 29.5 g/dL (32.0-37.0); MCV 78.2 fL (80.0-97.0); Monocytes # (A) 0.56 10*3/uL (0.20-1.00); Monocytes % (A) 6.5 %; Neutrophils # (A) 4.37 10*3/uL (1.80-7.70); Neutrophils % (A) 51.0 %; Platelet Count 572 10*3/uL (140-440); RBC 4.59 10*6/uL (4.10-5.20); RDW 22.7 % (11.5-14.5); WBC 8.57 10*3/uL (4.50-10.00)
[2024-11-26 22:40] LABS: ALT 26 U/L (4-34); AST 29 U/L (14-36); African American GFR (CKD) 87 (>60 ml/min/1.73 sqM); Albumin 4.0 g/dL (3.5-5.0); Alkaline Phosphatase 142 U/L (38-126); Anion Gap 12 mmol/L; Blood Urea Nitrogen 21 mg/dL (7-17); Calcium 9.8 mg/dL (8.4-10.2); Carbon Dioxide 26 mmol/L (22-30); Chloride 103 mmol/L (98-107); Glucose 130 mg/dL (74-99); Lipase 324 U/L (23-300); Non-African American GFR(CKD) 76 (>60 ml/min/1.73 sqM); Potassium 4.5 mmol/L (3.5-5.1); Sodium 141 mmol/L (137-145); Total Protein 6.9 g/dL (6.3-8.2)
[2024-11-26 23:33] LABS: Bacteria,Urine Many /hpf; Bilirubin,Urine Negative (Negative); Blood,Urine Negative (Negative); Color,Urine Yellow; Glucose,Urine (UA) Negative (Negative); Ketones,Urine Negative (Negative); Leukocyte Esterase,Urine Large (Negative); Mucus,Urine Occasional /hpf; Nitrite,Urine Positive (Negative); PH, Urine 6.5 (5.0-8.0); Protein,Urine Trace (Negative); RBC,Urine 5 /hpf (0-5); Specific Gravity,Urine 1.024 (1.001-1.035); Squamous Epithelial Cell,Urine 2 /hpf (0-4); Urobilinogen,Urine <2.0 mg/dL (<2.0); WBC,Urine >182 /hpf (0-5)
--- NOTE | 2024-11-26 23:45 | US ---
EXAM: US Pelvis Transvaginal, Complete CLINICAL HISTORY: ITS.REASON US Reason: Left sided pelvic pain TECHNIQUE: Real-time complete transvaginal pelvic ultrasound with image documentation. Transvaginal imaging was used for better evaluation of the endometrium and adnexa. COMPARISON: None FINDINGS: Uterus: Status post hysterectomy. Right ovary: Not visualized due to overlying bowel gas. Left ovary: Measures 2.8 x 4.6 x 2.4 cm. Left ovarian cyst measuring 3. 6 x 2.5 x 2.7 cm. Normal color Doppler flow to the left ovary. Other: No free fluid. No adnexal mass. IMPRESSION: 1. Left ovarian cyst. No ovarian torsion. 2. Right ovary not visualized.
[2024-11-27] MEDS: LEVOFLOXACIN 750MG-D5W PMX 750 MG in DEXTROSE/WATER 1 150ML.BAG IVPB STA (00:13)
[2024-11-27] MEDS: LEVOFLOXACIN 750 MG TAB PO STA (00:17)
[2024-11-27] MEDS: ONDANSETRON 4 MG ODT STARTER PACK 2 TAB BTL PO STA (00:17)
[2024-11-27] MEDS: KETOROLAC 15 MG/ML 1 ML VIAL IVP STA (00:18)
[2024-11-27] MEDS: HYDROmorphone 1 MG/ML 1 ML SYRINGE IVP STA (00:18)
[2024-11-27 01:59] VITALS: BP 103/70; PULSE 70; RESP 17; TEMP 97.9
== END 2024-11-27 01:58 | disposition home or self-care (01) ==
LOC: EC 20:39
DX: N39.0 Urinary tract infection, site not specified (principal); R11.2 Nausea with vomiting, unspecified; E11.9 Type 2 diabetes mellitus without complications; M79.7 Fibromyalgia; Z88.5 Allergy status to narcotic agent; Z88.8 Allergy status to other drugs, medicaments and biological substances; Z88.1 Allergy status to other antibiotic agents
CPT/HCPCS: 36415; 80053; 83605; 83690; 85025; 81001; 87086; 93976; 76830; 99284; 96374; 96375; 96361 ×3; 96376 ×2; J1200; J2405; J1171; J1885

== ENCOUNTER 2024-12-02 21:29 | Emergency (ER) | payer BC ==
--- NOTE | 2024-12-02 22:11 | ED ---
Headache HPI - General Chief Complaint: Headache Stated Complaint: Migraine Time Seen by Provider: 12/02/24 21:40 Mode of arrival: ambulatory Limitations: no limitations - History of Present Illness Initial Comments: This patient is 39-year-old woman with history of headaches who presents with onset of what she is describing as a typical migraine for her. She describes the gradual onset of bifrontal aching headache. She states that it feels like her head is going to explode. This is the character of her chronic headaches. She took her usual migraine medication without much relief at all. The headache is worse with lights and with noises. She states it is accompanied by seeing halos around lights. She states that she also has trouble speaking clearly. She describes her speech as slurred. MD Complaint: headache -: hour(s) Onset Description: gradual Location: frontal Severity: severe Quality: aching, similar to previous headaches Consistency: constant Improves With: nothing Worsens With: light, noise Context: occurred at rest Associated Symptoms: nausea, vomiting Treatments Prior to Arrival: prescription analgesic - Related Data Home Medications Medication Instructions Recorded Confirmed Levothyroxine Sodium [Synthroid] 50 mcg PO DAILY 05/05/14 11/09/24 Cetirizine HCl [Zyrtec] 10 mg PO DAILY 08/30/19 11/09/24 Nystatin 100,000 Unit/gm Powd 1 applic TOPICAL BID PRN 12/12/21 11/09/24 [Mycostatin Powder] Ergocalciferol (Vitamin D2) 1,250 mcg PO CAVA[place]UGH 05/19/22 11/09/24 [Drisdol (50,000 Iu)] Fluconazole 200 mg PO DAILY PRN 05/19/22 11/09/24 Acetaminophen Tab [Tylenol] 650 mg PO Q6H PRN 10/02/22 11/09/24 Lasmiditan Succinate [Reyvow] 50 mg PO DAILY PRN 10/02/22 11/09/24 Metoclopramide [Reglan] 10 mg PO DAILY PRN 10/02/22 11/09/24 hydrOXYzine HCL [Atarax] 100 mg PO HS PRN 04/28/24 11/09/24 tiZANidine [Zanaflex] 2 mg PO HS PRN 04/28/24 11/09/24 Dextroamphetamine/Amphetamine 40 mg PO DAILY 06/27/24 11/09/24 [Adderall] Pregabalin [Lyrica] 225 mg PO BID 07/31/24 11/09/24 buPROPion XL [Wellbutrin XL] 300 mg PO HS 07/31/24 11/09/24 Furosemide [Lasix] 20 mg PO BID 08/27/24 11/09/24 Potassium Chloride ER [K-Dur 10] 1 tab PO DAILY 09/01/24 11/09/24 ALPRAZolam [Xanax] 0.5 mg PO BID PRN 10/13/24 11/09/24 DULoxetine HCL [Cymbalta] 60 mg PO HS 10/13/24 11/09/24 Aspirin EC [Ecotrin Low Dose] 81 mg PO DAILY 11/09/24 11/09/24 Atorvastatin [Lipitor] 40 mg PO DAILY 11/09/24 11/09/24 oxyCODONE-APAP 5-325MG [Percocet 1 tab PO TID PRN 11/09/24 11/09/24 5-325 mg] Previous Rx's Medication Instructions Recorded Ondansetron Odt [Zofran Odt] 4 mg PO Q8HR PRN #20 tab 11/10/24 Levofloxacin [Levaquin] 750 mg PO DAILY 5 Days #5 tab 11/27/24 Ondansetron Odt [Zofran Odt] 4 mg PO Q8HR PRN #20 tab 11/27/24 Allergies Allergy/AdvReac Type Severity Reaction Status Date / Time cephalexin [From Keflex] Allergy Rash/Hives Verified 12/07/24 17:56 codeine AdvReac Hallucinati Verified 12/07/24 17:56 ons tramadol AdvReac Hallucinati Verified 12/07/24 17:56 ons valacyclovir HCl AdvReac BLURRED Verified 12/07/24 17:56 [From Valtrex] VISION Review of Systems ROS Statement: Those systems with pertinent positive or pertinent negative responses have been documented in the HPI. ROS Other: All systems not noted in ROS Statement are negative. Constitutional: Denies: fever, chills, weakness Eyes: Reports: eye pain. Denies: vision change ENT: Denies: hearing loss, congestion Respiratory: Denies: cough, dyspnea Cardiovascular: Denies: chest pain, palpitations, syncope Gastrointestinal: Reports: nausea, vomiting. Denies: abdominal pain, diarrhea, melena, hematochezia Genitourinary: Denies: dysuria, hematuria Musculoskeletal: Denies: back pain Skin: Denies: rash Neurological: Reports: headache. Denies: weakness, numbness, confusion Past Medical History Past Medical History: Asthma, Diabetes Mellitus, Fibromyalgia, GERD/Reflux, Sleep Apnea/CPAP/BIPAP, Thyroid Disorder Additional Past Medical History / Comment(s): Migraines with aura, DDD, NIDDM type II- Per Dr no longer considered diabetic due to weight loss surgery + improved A1C, diverticulitis with perforation/colostomy since reversed, IBS, chronic seroma, CARLITOS/no device-improvement since surgery , polycystic ovaries, hypothyroid, season allergies History of Any Multi-Drug Resistant Organisms: ESBL Date of last positivie culture/infection: 11/26/24 MDRO Source:: urine Past Surgical History: Bariatric Surgery, Cholecystectomy, Hernia Repair, Hysterectomy, Uterine Ablation Additional Past Surgical History / Comment(s): 06/06/21 sleeve gastrectomy, Rt Breast biopsy. bowel resection with colostomy/ later colostomy reversal, abdominal surgery to remove scar tissue, EGD, colonoscopy, lower back pain procedures, uterine ablation, lysis of adhesions 07/11/22, 02/04/24-laparscopic hysterectomy. panniculectomy 06-30-24 Past Anesthesia/Blood Transfusion Reactions: No Reported Reaction Additional Past Anesthesia/Blood Transfusion Reaction / Comment(s): No reaction w/ blood Past Psychological History: Anxiety, Bipolar, Depression Smoking Status: Never smoker Past Alcohol Use History: Rare Past Drug Use History: None Reported - Past Family History Mother History Unknown: Yes Family Medical History: COPD Additional Family Medical History / Comment(s): Mother from COPD at the age of 55 yrs. Maternal grandmother - esophageal cancer Brother(s) Family Medical History: Diabetes Mellitus Father Family Medical History: Unable to Obtain General Exam Limitations: no limitations General appearance: alert, in no apparent distress Head exam: Present: atraumatic, normocephalic Eye exam: Present: normal appearance. Absent: scleral icterus, conjunctival injection, nystagmus ENT exam: Present: normal oropharynx Neck exam: Present: normal inspection, full ROM. Absent: tenderness, meningismus Respiratory exam: Present: normal lung sounds bilaterally. Absent: respiratory distress, wheezes, rales, rhonchi, stridor, accessory muscle use Cardiovascular Exam: Present: regular rate, normal rhythm, normal heart sounds. Absent: systolic murmur, diastolic murmur, rubs, gallop GI/Abdominal exam: Present: soft. Absent: distended, tenderness, guarding Extremities exam: Present: normal inspection, normal capillary refill. Absent: pedal edema, calf tenderness Neurological exam: Present: alert, oriented X3, CN II-XII intact. Absent: motor sensory deficit Skin exam: Present: warm, dry, intact, normal color. Absent: rash Course Vital Signs 12/02/24 12/03/24 12/03/24 21:33 01:10 02:34 Temperature 97.9 F 97.7 F Pulse Rate 92 83 63 Respiratory 19 16 16 Rate Blood Pressure 121/76 101/63 127/83 O2 Sat by Pulse 99 97 100 Oximetry Medical Decision Making - Medical Decision Making Was pt. sent in by a medical professional or institution (, PA, TEA TREE FARM WORKER, urgent care, hospital, or snf...) When possible be specific @ -[No] Did you speak to anyone other than the patient for history (EMS, parent, family, police, friend...)? What history was obtained from this source @ -[No] Did you review nursing and triage notes (agree or disagree)? Why? @ -[I reviewed and agree with nursing and triage notes] Were old charts reviewed (outside hosp., previous admission, EMS record, old EKG, old radiological studies, urgent care reports/EKG's, snf records)? Report findings @ -[No old charts were reviewed] Differential Diagnosis (chest pain, altered mental status, abdominal pain women, abdominal pain men, vaginal bleeding, weakness, fever, dyspnea, syncope, headache, dizziness, GI bleed, back pain, seizure, CVA, palpatations, mental health, musculoskeletal)? @ -[Differential Headache: Migraine, tension, cluster, carbon monoxide, central venous thrombosis, pension karma temporal arteritis, acute closure glaucoma, intercranial hemorrhage, mastoiditis, sinusitis, head injury, this is not meant to be an all-inclusive list. EKG interpreted by me (3pts min.). @ -[As above] X-rays interpreted by me (1pt min.). @ -[None done] CT interpreted by me (1pt min.). @ -[None done] U/S interpreted by me (1pt. min.). @ -[None done] What testing was considered but not performed or refused? (CT, X-rays, U/S, labs)? Why? @ -[None] What meds were considered but not given or refused? Why? @ -[None] Did you discuss the management of the patient with other professionals (professionals i.e. DrGladis, PA, TEA TREE FARM WORKER, lab, RT, psych nurse, secondary social studies teacher, earth moving machine operator, teacher, retail loss prevention officer, telephonic nurse case manager)? Give summary @ -[No] Was smoking cessation discussed for >3mins.? @ -[No] Was critical care preformed (if so, how long)? @ -[No] Were there social determinants of health that impacted care today? How? (Homelessness, low income, unemployed, alcoholism, drug addiction, transportation, low edu. Level, literacy, decrease access to med. care, halfway, rehab)? @ -[No] Was there de-escalation of care discussed even if they declined (Discuss DNR or withdrawal of care, Hospice)? DNR status @ -[No] What co-morbidities impacted this encounter? (DM, HTN, Smoking, COPD, CAD, Cancer, CVA, ARF, Chemo, Hep., AIDS, mental health diagnosis, sleep apnea, morbid obesity)? @ -[History of headaches Was patient admitted / discharged? Hospital course, mention meds given and route, prescriptions, significant lab abnormalities, going to OR and other pertinent info. @ -[This patient is a 39-year-old woman with history of headaches who presents with headache that is typical for her but not relieved by her usual medications. The patient does not have any red flag signs or symptoms. She is feeling better following treatment and at this point stable to continue as outpatient. Discussed return parameters. Undiagnosed new problem with uncertain prognosis? @ -[No] Drug Therapy requiring intensive monitoring for toxicity (Heparin, Nitro, Insulin, Cardizem)? @ -[No] Were any procedures done? @ -[No] Diagnosis/symptom? @ -[Acute migraine headache Acute, or Chronic, or Acute on Chronic? @ -[Acute Uncomplicated (without systemic symptoms) or Complicated (systemic symptoms)? @ -[Uncomplicated Side effects of treatment? @ -[No] Exacerbation, Progression, or Severe Exacerbation? @ -[No] Poses a threat to life or bodily function? How? (Chest pain, [place], [place], pneumonia, PE, COPD, DKA, ARF, appy, cholecystitis, CVA, Diverticulitis, Homicidal, [place] icidal, threat to staff... and all critical care pts) @ -[No] All treatments are based on ideal body weight as in ED triage Disposition Clinical Impression: Headache Disposition: HOME SELF-CARE Condition: Good Instructions (If sedation given, give patient instructions): Acute Headache (ED) Is patient prescribed a controlled substance at d/c from ED?: No Referrals: Fatimah Riggins MD [Primary Care Provider] - 1-2 days
[2024-12-02] MEDS: diphenhydrAMINE 50 MG/ML 1 ML VIAL IM STA (22:20)
[2024-12-02] MEDS: KETOROLAC 15 MG/ML 1 ML VIAL IM STA (22:20)
[2024-12-02] MEDS: METOCLOPRAMIDE 5 MG/ML 2 ML VIAL IM STA (22:21)
[2024-12-03] MEDS: methylPREDNISolone SOD SUCCI 125 MG/2 ML VIAL IM STA (01:04)
[2024-12-03 01:10] VITALS: RESP 16
[2024-12-03 02:36] VITALS: BP 127/83; PULSE 63; TEMP 97.7
== END 2024-12-03 02:36 | disposition home or self-care (01) ==
LOC: EC 21:29
DX: G43.909 Migraine, unspecified, not intractable, without status migrainosus (principal); Z88.5 Allergy status to narcotic agent; Z88.8 Allergy status to other drugs, medicaments and biological substances; Z88.1 Allergy status to other antibiotic agents
CPT/HCPCS: 99283; 96372 ×2; J3030; J1200; J2765; J1885; J2919

== ENCOUNTER 2024-12-07 17:43 | Emergency (ER) | payer BC ==
--- NOTE | 2024-12-07 18:18 | ED ---
Headache HPI - General Chief Complaint: Headache Stated Complaint: Fell, hit head Time Seen by Provider: 12/07/24 18:02 Source: RN notes reviewed, old records reviewed Mode of arrival: ambulatory Limitations: no limitations - History of Present Illness Initial Comments: This is a 39-year-old female well-known to this ER she comes in today for recurrent headaches, worsening migraine for a few days now with significant nausea vomiting unable to take home meds, pain is out of control MD Complaint: headache, "migraine" -: days(s) Onset Description: gradual Location: right, left, frontal, temporal Severity: moderate, severe Severity scale (1-10): 10 Quality: throbbing Consistency: constant Improves With: nothing Worsens With: none Context: occurred at rest Associated Symptoms: nausea, vomiting Treatments Prior to Arrival: none - Related Data On Hormonal Control: No Home Medications Medication Instructions Recorded Confirmed Levothyroxine Sodium [Synthroid] 50 mcg PO DAILY 05/05/14 11/09/24 Cetirizine HCl [Zyrtec] 10 mg PO DAILY 08/30/19 11/09/24 Nystatin 100,000 Unit/gm Powd 1 applic TOPICAL BID PRN 12/12/21 11/09/24 [Mycostatin Powder] Ergocalciferol (Vitamin D2) 1,250 mcg PO GARCIA 05/19/22 11/09/24 [Drisdol (50,000 Iu)] Fluconazole 200 mg PO DAILY PRN 05/19/22 11/09/24 Acetaminophen Tab [Tylenol] 650 mg PO Q6H PRN 10/02/22 11/09/24 Lasmiditan Succinate [Reyvow] 50 mg PO DAILY PRN 10/02/22 11/09/24 Metoclopramide [Reglan] 10 mg PO DAILY PRN 10/02/22 11/09/24 hydrOXYzine HCL [Atarax] 100 mg PO HS PRN 04/28/24 11/09/24 tiZANidine [Zanaflex] 2 mg PO HS PRN 04/28/24 11/09/24 Dextroamphetamine/Amphetamine 40 mg PO DAILY 06/27/24 11/09/24 [Adderall] Pregabalin [Lyrica] 225 mg PO BID 07/31/24 11/09/24 buPROPion XL [Wellbutrin XL] 300 mg PO HS 07/31/24 11/09/24 Furosemide [Lasix] 20 mg PO BID 08/27/24 11/09/24 Potassium Chloride ER [K-Dur 10] 1 tab PO DAILY 09/01/24 11/09/24 ALPRAZolam [Xanax] 0.5 mg PO BID PRN 10/13/24 11/09/24 DULoxetine HCL [Cymbalta] 60 mg PO HS 10/13/24 11/09/24 Aspirin EC [Ecotrin Low Dose] 81 mg PO DAILY 11/09/24 11/09/24 Atorvastatin [Lipitor] 40 mg PO DAILY 11/09/24 11/09/24 oxyCODONE-APAP 5-325MG [Percocet 1 tab PO TID PRN 11/09/24 11/09/24 5-325 mg] Previous Rx's Medication Instructions Recorded Ondansetron Odt [Zofran Odt] 4 mg PO Q8HR PRN #20 tab 11/10/24 Levofloxacin [Levaquin] 750 mg PO DAILY 5 Days #5 tab 11/27/24 Ondansetron Odt [Zofran Odt] 4 mg PO Q8HR PRN #20 tab 11/27/24 Allergies Allergy/AdvReac Type Severity Reaction Status Date / Time cephalexin [From Keflex] Allergy Rash/Hives Verified 12/07/24 17:56 codeine AdvReac Hallucinati Verified 12/07/24 17:56 ons tramadol AdvReac Hallucinati Verified 12/07/24 17:56 ons valacyclovir HCl AdvReac BLURRED Verified 12/07/24 17:56 [From Valtrex] VISION Review of Systems ROS Statement: Those systems with pertinent positive or pertinent negative responses have been documented in the HPI. ROS Other: All systems not noted in ROS Statement are negative. Past Medical History Past Medical History: Asthma, Diabetes Mellitus, Fibromyalgia, GERD/Reflux, Sleep Apnea/CPAP/BIPAP, Thyroid Disorder Additional Past Medical History / Comment(s): Migraines with aura, DDD, NIDDM type II- Per Dr no longer considered diabetic due to weight loss surgery + improved A1C, diverticulitis with perforation/colostomy since reversed, IBS, chronic seroma, CARLITOS/no device-improvement since surgery , polycystic ovaries, hypothyroid, season allergies History of Any Multi-Drug Resistant Organisms: ESBL Date of last positivie culture/infection: 11/26/24 MDRO Source:: urine Past Surgical History: Bariatric Surgery, Cholecystectomy, Hernia Repair, Hysterectomy, Uterine Ablation Additional Past Surgical History / Comment(s): 06/06/21 sleeve gastrectomy, Rt Breast biopsy. bowel resection with colostomy/ later colostomy reversal, abdominal surgery to remove scar tissue, EGD, colonoscopy, lower back pain procedures, uterine ablation, lysis of adhesions 07/11/22, 02/04/24-laparscopic hysterectomy. panniculectomy 06-30-24 Past Anesthesia/Blood Transfusion Reactions: No Reported Reaction Additional Past Anesthesia/Blood Transfusion Reaction / Comment(s): No reaction w/ blood Past Psychological History: Anxiety, Bipolar, Depression Smoking Status: Never smoker Past Alcohol Use History: Rare Past Drug Use History: None Reported - Past Family History Mother History Unknown: Yes Family Medical History: COPD Additional Family Medical History / Comment(s): Mother from COPD at the age of 55 yrs. Maternal grandmother - esophageal cancer Brother(s) Family Medical History: Diabetes Mellitus Father Family Medical History: Unable to Obtain General Exam Limitations: no limitations General appearance: alert, in no apparent distress Head exam: Present: atraumatic, normocephalic, normal inspection Eye exam: Present: normal appearance, PERRL, EOMI. Absent: scleral icterus, conjunctival injection, periorbital swelling ENT exam: Present: normal exam, mucous membranes moist Neck exam: Present: normal inspection. Absent: tenderness, meningismus, lymphadenopathy Respiratory exam: Present: normal lung sounds bilaterally. Absent: respiratory distress, wheezes, rales, rhonchi, stridor Cardiovascular Exam: Present: regular rate, normal rhythm, normal heart sounds. Absent: systolic murmur, diastolic murmur, rubs, gallop, clicks GI/Abdominal exam: Present: soft, normal bowel sounds. Absent: distended, te nderness, guarding, rebound, rigid Extremities exam: Present: normal inspection, full ROM, normal capillary refill. Absent: tenderness, pedal edema, joint swelling, calf tenderness Back exam: Present: normal inspection Neurological exam: Present: alert, oriented X3, CN II-XII intact Psychiatric exam: Present: normal affect, normal mood Skin exam: Present: warm, dry, intact, normal color. Absent: rash Course Vital Signs 12/07/24 17:53 Temperature 98.5 F Pulse Rate 77 Respiratory 20 Rate Blood Pressure 147/98 O2 Sat by Pulse 99 Oximetry - Reevaluation(s) Reevaluation #1: 12/07/24 18:20 Medical records reviewed Reevaluation #2: 12/07/24 18:20 Headache patient Reevaluation #3: 12/07/24 18:20 Patientinformed of results and questions answered Reevaluation #4: Was pt. sent in by a medical professional or institution (, SOILA, SAVE ALL OPERATOR, urgent care, hospital, or shelter...) When possible be specific @ -no Did you speak to anyone other than the patient for history (EMS, parent, family, police, friend...)? What history was obtained from this source @ -no Did you review nursing and triage notes (agree or disagree)? Why? @ -agree Are old charts reviewed (outside hosp., previous admission, EMS record, old EKG, old radiological studies, urgent care reports/EKG's, shelter records)? Report findings @ -yes Differential Diagnosis (chest pain, altered mental status, abdominal pain women, abdominal pain men, vaginal bleeding, weakness, fever, dyspnea, syncope, headache, dizziness, GI bleed, back pain, seizure, CVA, palpatations, mental health, musculoskeletal)? @ -prior EKG interpreted by me (3pts min.). @ -yes X-rays interpreted by me (1pt min.). @ -yes negative for acute disease CT interpreted by me (1pt min.). @ -no U/S interpreted by me (1pt. min.). @ -no What testing was considered but not performed or refused? (CT, X-rays, U/S, labs)? Why? @ -none What meds were considered but not given or refused? Why? @ -none Did you discuss the management of the patient with other professionals (professionals i.e. SOILA Carrera, SAVE ALL OPERATOR, lab, RT, psych nurse, social media senior associate, hair spring winder, teacher, bank compliance officer, case sealer)? Give summary @ -no Was smoking cessation discussed for >3mins.? @ -no Was critical care preformed (if so, how long)? @ -no Were there social determinants of health that impacted care today? How? (Homelessness, low income, unemployed, alcoholism, drug addiction, transportation, low edu. Level, literacy, decrease access to med. care, [facility], re hab)? @ -none Was there de-escalation of care discussed even if they declined (Discuss DNR or withdrawal of care, Hospice)? DNR status @ -no What co-morbidities impacted this encounter? (DM, HTN, Smoking, COPD, CAD, Cancer, CVA, ARF, Chemo, Hep., AIDS, mental health diagnosis, sleep apnea, morbid obesity)? @ -none Was patient admitted / discharged? Hospital course, mention meds given and route, prescriptions, significant lab abnormalities, going to OR and other pertinent info. @ - Undiagnosed new problem with uncertain prognosis? @ -no Drug Therapy requiring intensive monitoring for toxicity (Heparin, Nitro, Insulin, Cardizem)? @ -no Were any procedures done? @ -no Diagnosis/symptom? @ - Acute, or Chronic, or Acute on Chronic? @ -Acute Uncomplicated (without systemic symptoms) or Complicated (systemic symptoms)? @ -Complicated Side effects of treatment? @ -no Exacerbation, Progression, or Severe Exacerbation? @ -exacerbation Poses a threat to life or bodily function? How? (Chest pain, [place], [place], pneumonia, PE, COPD, DKA, ARF, appy, cholecystitis, CVA, Diverticulitis, Homicidal, Suicidal, threat to staff... and all critical care pts) @ -yes Reevaluation #5: Differential Headache: Migraine, tension, cluster, carbon monoxide, central venous thrombosis, pension karma temporal arteritis, acute closure glaucoma, intercranial hemorrhage, mastoiditis, sinusitis, head injury, this is not meant to be an all-inclusive list. Medical Decision Making - Medical Decision Making 39 female for acute on chronic migraine headaches. This morning. Patient feels well, discharged home Disposition Clinical Impression: Migraine headache Disposition: HOME SELF-CARE Condition: Good Instructions (If sedation given, give patient instructions): Acute Headache (ED) Referrals: Fatimah Riggins MD [Primary Care Provider] - 1-2 days Time of Disposition: 18:20
[2024-12-07] MEDS: HYDROmorphone 1 MG/ML 1 ML SYRINGE IM STA (18:56)
[2024-12-07] MEDS: PROCHLORPERAZINE 10 MG TAB PO STA (18:56)
--- NOTE | 2024-12-07 19:46 | CT ---
EXAMINATION TYPE: CT brain wo con DATE OF EXAM: 12/07/2024 7:30 PM COMPARISON: Prior CT study 11/02/2024.. CLINICAL INDICATION: Female, 39 years old with history of oliva, headache TECHNIQUE: Brain: Axial CT images of the brain were obtained with coronal and sagittal reformats created and rev iewed. Contrast used: None. Oral contrast used: None. CT DLP: 1117.4 mGycm, Automated exposure control for dose reduction was used. FINDINGS: Brain: Extra-axial spaces: No abnormal extra-axial fluid collections. Ventricular system: Within normal limits Cerebral parenchyma: No acute intraparenchymal hemorrhage or mass effect. The hicks-white junction is well differentiated. Cerebellum: Unremarkable. Mass effect: No evidence of midline shift. Intracranial vasculature: unremarkable Soft tissues: Normal. Calvarium/osseous structures: No depressed skull fracture. Paranasal sinuses and mastoid air cells: Mild scattered paranasal sinus disease. Visualized orbits: Orbital contents are intact. IMPRESSION: No acute intracranial process. [facility], , 12/07/2024 7:43 PM
[2024-12-07 19:58] VITALS: BP 108/80; PULSE 83; RESP 16; TEMP 97.8
== END 2024-12-07 19:58 | disposition home or self-care (01) ==
LOC: EC 17:43
DX: G43.E09 Chronic migraine with aura, not intractable, without status migrainosus (principal); Z88.1 Allergy status to other antibiotic agents; Z88.5 Allergy status to narcotic agent; Z88.8 Allergy status to other drugs, medicaments and biological substances
CPT/HCPCS: 70450; 99283; 96372; S0183; J1171

== ENCOUNTER 2024-12-10 23:04 | Emergency (ER) | payer BC ==
[2024-12-10 23:12] VITALS: RESP 17; TEMP 98.9
[2024-12-10 23:44] LABS: Basophils # (A) 0.05 10*3/uL (0.00-0.10); Basophils % (A) 0.4 %; Eosinophils # (A) 0.03 10*3/uL (0.04-0.35); Eosinophils % (A) 0.2 %; HCT 33.5 % (37.2-46.3); HGB 10.3 g/dL (12.0-15.0); Lymphocytes # (A) 3.50 10*3/uL (0.90-5.00); Lymphocytes % (A) 25.0 %; MCH 23.9 pg (27.0-32.0); MCHC 30.7 g/dL (32.0-37.0); MCV 77.7 fL (80.0-97.0); Monocytes # (A) 1.00 10*3/uL (0.20-1.00); Monocytes % (A) 7.1 %; Neutrophils # (A) 9.38 10*3/uL (1.80-7.70); Neutrophils % (A) 66.9 %; Platelet Count 330 10*3/uL (140-440); RBC 4.31 10*6/uL (4.10-5.20); WBC 14.01 10*3/uL (4.50-10.00)
[2024-12-10 23:50] LABS: RDW 22.7 % (11.5-14.5)
[2024-12-10 23:56] LABS: ALT 46 U/L (4-34); AST 44 U/L (14-36); African American GFR (CKD) 82 (>60 ml/min/1.73 sqM); Albumin 3.8 g/dL (3.5-5.0); Alkaline Phosphatase 89 U/L (38-126); Anion Gap 4 mmol/L; Blood Urea Nitrogen 19 mg/dL (7-17); Calcium 9.1 mg/dL (8.4-10.2); Carbon Dioxide 31 mmol/L (22-30); Chloride 106 mmol/L (98-107); Glucose 113 mg/dL (74-99); Magnesium 2.2 mg/dL (1.6-2.3); Non-African American GFR(CKD) 71 (>60 ml/min/1.73 sqM); Potassium 3.8 mmol/L (3.5-5.1); Sodium 141 mmol/L (137-145); Total Protein 6.4 g/dL (6.3-8.2)
[2024-12-11] LABS: INR 0.9 (<1.2); Prothrombin Time 10.5 sec (10.0-12.5)
[2024-12-11 00:04] LABS: Partial Thromboplastin Time 20.5 sec (22.0-30.0)
[2024-12-11] MEDS: SODIUM CHLORIDE 0.9% 1,000 ML IV ONE (00:18)
[2024-12-11] MEDS: HYDROmorphone 0.5 MG/0.5 ML SYRINGE IVP PRN (00:42)
[2024-12-11] MEDS: HYDROmorphone 1 MG/ML 1 ML SYRINGE IVP STA (00:43)
--- NOTE | 2024-12-11 00:43 | ED ---
General Adult HPI - General Chief complaint: Chest Pain Stated complaint: Chest Pain Time Seen by Provider: 12/10/24 23:18 Source: patient, EMS, RN notes reviewed, old records reviewed Mode of arrival: EMS Limitations: no limitations - History of Present Illness Initial comments: 39-year-old female with left-sided chest discomfort. Patient is scheduled cardiology tomorrow. She has had some ongoing issues. She denies a known history of cardiac disease. Denies associated dyspnea. No fever or cough. No abdominal pain. She has felt somewhat lightheaded and this is also been an ongoing issue for which she has been following with neurology. She states she has had a recent negative workup. - Related Data Home Medications Medication Instructions Recorded Confirmed Levothyroxine Sodium [Synthroid] 50 mcg PO DAILY 05/05/14 11/09/24 Cetirizine HCl [Zyrtec] 10 mg PO DAILY 08/30/19 11/09/24 Nystatin 100,000 Unit/gm Powd 1 applic TOPICAL BID PRN 12/12/21 11/09/24 [Mycostatin Powder] Ergocalciferol (Vitamin D2) 1,250 mcg PO GARCIA 05/19/22 11/09/24 [Drisdol (50,000 Iu)] Fluconazole 200 mg PO DAILY PRN 05/19/22 11/09/24 Acetaminophen Tab [Tylenol] 650 mg PO Q6H PRN 10/02/22 11/09/24 Lasmiditan Succinate [Reyvow] 50 mg PO DAILY PRN 10/02/22 11/09/24 Metoclopramide [Reglan] 10 mg PO DAILY PRN 10/02/22 11/09/24 hydrOXYzine HCL [Atarax] 100 mg PO HS PRN 04/28/24 11/09/24 tiZANidine [Zanaflex] 2 mg PO HS PRN 04/28/24 11/09/24 Dextroamphetamine/Amphetamine 40 mg PO DAILY 06/27/24 11/09/24 [Adderall] Pregabalin [Lyrica] 225 mg PO BID 07/31/24 11/09/24 buPROPion XL [Wellbutrin XL] 300 mg PO HS 07/31/24 11/09/24 Furosemide [Lasix] 20 mg PO BID 08/27/24 11/09/24 Potassium Chloride ER [K-Dur 10] 1 tab PO DAILY 09/01/24 11/09/24 ALPRAZolam [Xanax] 0.5 mg PO BID PRN 10/13/24 11/09/24 DULoxetine HCL [Cymbalta] 60 mg PO HS 10/13/24 11/09/24 Aspirin EC [Ecotrin Low Dose] 81 mg PO DAILY 11/09/24 11/09/24 Atorvastatin [Lipitor] 40 mg PO DAILY 11/09/24 11/09/24 oxyCODONE-APAP 5-325MG [Percocet 1 tab PO TID PRN 11/09/24 11/09/24 5-325 mg] Previous Rx's Medication Instructions Recorded Ondansetron Odt [Zofran Odt] 4 mg PO Q8HR PRN #20 tab 11/10/24 Levofloxacin [Levaquin] 750 mg PO DAILY 5 Days #5 tab 11/27/24 Ondansetron Odt [Zofran Odt] 4 mg PO Q8HR PRN #20 tab 11/27/24 Allergies Allergy/AdvReac Type Severity Reaction Status Date / Time cephalexin [From Keflex] Allergy Rash/Hives Verified 12/07/24 17:56 codeine AdvReac Hallucinati Verified 12/07/24 17:56 ons tramadol AdvReac Hallucinati Verified 12/07/24 17:56 ons valacyclovir HCl AdvReac BLURRED Verified 12/07/24 17:56 [From Valtrex] VISION Review of Systems ROS Statement: Those systems with pertinent positive or pertinent negative responses have been documented in the HPI. ROS Other: All systems not noted in ROS Statement are negative. Past Medical History Past Medical History: Asthma, Diabetes Mellitus, Fibromyalgia, GERD/Reflux, Sleep Apnea/CPAP/BIPAP, Thyroid Disorder Additional Past Medical History / Comment(s): Migraines with aura, DDD, NIDDM type II- Per Dr no longer considered diabetic due to weight loss surgery + improved A1C, diverticulitis with perforation/colostomy since reversed, IBS, chronic seroma, CARLITOS/no device-improvement since surgery , polycystic ovaries, hypothyroid, season allergies History of Any Multi-Drug Resistant Organisms: ESBL Date of last positivie culture/infection: 11/26/24 MDRO Source:: urine Past Surgical History: Bariatric Surgery, Cholecystectomy, Hernia Repair, Hysterectomy, Uterine Ablation Additional Past Surgical History / Comment(s): 06/06/21 sleeve gastrectomy, Rt Breast biopsy. bowel resection with colostomy/ later colostomy reversal, abdominal surgery to remove scar tissue, EGD, colonoscopy, lower back pain procedures, uterine ablation, lysis of adhesions 07/11/22, 02/04/24-laparscopic hysterectomy. panniculectomy 06-30-24 Past Anesthesia/Blood Transfusion Reactions: No Reported Reaction Additional Past Anesthesia/Blood Transfusion Reaction / Comment(s): No reaction w/ blood Past Psychological History: Anxiety, Bipolar, Depression Smoking Status: Never smoker Past Alcohol Use History: Rare Past Drug Use History: None Reported - Past Family History Mother History Unknown: Yes Family Medical History: COPD Additional Family Medical History / Comment(s): Mother from COPD at the age of 55 yrs. Maternal grandmother - esophageal cancer Brother(s) Family Medical History: Diabetes Mellitus Father Family Medical History: Unable to Obtain General Exam Limitations: no limitations General appearance: alert, in no apparent distress Head exam: Present: atraumatic, normocephalic Eye exam: Present: normal appearance, PERRL ENT exam: Present: normal exam Neck exam: Present: normal inspection. Absent: tenderness Respiratory exam: Present: normal lung sounds bilaterally. Absent: respiratory distress, wheezes Cardiovascular Exam: Present: regular rate, normal rhythm GI/Abdominal exam: Present: soft. Absent: distended, tenderness, guarding Extremities exam: Present: normal inspection, normal capillary refill. Absent: pedal edema, calf tenderness Neurological exam: Present: alert, oriented X3, CN II-XII intact. Absent: motor sensory deficit Psychiatric exam: Present: normal affect, normal mood Skin exam: Present: warm, dry, intact. Absent: cyanosis, diaphoretic Course Vital Signs 12/10/24 12/11/24 12/11/24 23:10 00:54 01:27 Temperature 98.9 F Pulse Rate 65 52 L 64 Respiratory 17 17 17 Rate Blood Pressure 124/73 137/93 O2 Sat by Pulse 97 96 98 Oximetry Medical Decision Making - Medical Decision Making Was pt. sent in by a medical professional or institution (, PA, SEISMOGRAPH RECORDER, urgent care, hospital, or detention...) When possible be specific @ -No Did you speak to anyone other than the patient for history (EMS, parent, family, police, friend...)? What history was obtained from this source @ -No Did you review nursing and triage notes (agree or disagree)? Why? @ -I reviewed and agree with nursing and triage notes Were old charts reviewed (outside hosp., previous admission, EMS record, old EKG, old radiological studies, urgent care reports/EKG's, detention records)? Report findings @ -No old charts were reviewed Differential Chest Pain: Stable Angina, Unstable Angina, STEMI, NSTEMI Aortic Dissection, Pneumothorax, Musculoskeletal, Esophageal Spasm GERD, Cholecystitis, Pancreatitis, Zoster, this is not meant to be an all-inclusive list. EKG interpreted by me (3pts min.). @ -Sinus bradycardia rate of 55, WA interval 145, QRS duration 101, QTc [address] segment elevation. X-rays interpreted by me (1pt min.). @Chest x-ray negative consolidated pneumonia or pneumothorax, radiologist's report atelectasis and nodularity, in the right lung base. CT interpreted by me (1pt min.). @ -None done U/S interpreted by me (1pt. min.). @ -None done What testing was considered but not performed or refused? (CT, X-rays, U/S, labs)? Why? @ -None What meds were considered but not given or refused? Why? @ -None Did you discuss the management of the patient with other professionals (professionals i.e. , PA, SEISMOGRAPH RECORDER, lab, RT, psych nurse, social problems specialist, senior adults director, teacher, appeals officer, protective services case worker)? Give summary @ -No Was smoking cessation discussed for >3mins.? @ -No Was critical care preformed (if so, how long)? @ -No Were there social determinants of health that impacted care today? How? (Homelessness, low income, unemployed, alcoholism, drug addiction, transportation, low edu. Level, literacy, decrease access to med. care, intermediate, rehab)? @ -No Was there de-escalation of care discussed even if they declined (Discuss DNR or withdrawal of care, Hospice)? DNR status @ -No What co-morbidities impacted this encounter? (DM, HTN, Smoking, COPD, CAD, Cancer, CVA, ARF, Chemo, Hep., AIDS, mental health diagnosis, sleep apnea, morbid obesity)? @ -None Was patient admitted / discharged? Hospital course, mention meds given and route, prescriptions, significant lab abnormalities, going to OR and other pertinent info. @ -39-year-old female with left-sided chest pain. No prior history of cardiac disease. EKG is sinus rhythm without ST segment elevation. Chest x-ray is clear. She has chronic stable anemia. She has an elevated white blood cell count with no other signs or source of infection. Troponin is negative. Patient has an appointment with cardiology today. I do feel she would be best served by maintaining this appointment. When reevaluated she is resting comfortably. Undiagnosed new problem with uncertain prognosis? @ -No Drug Therapy requiring intensive monitoring for toxicity (Heparin, Nitro, Insulin, Cardizem)? @ -No Were any procedures done? @ -No Diagnosis/symptom? @ -Atypical chest pain Acute, or Chronic, or Acute on Chronic? @Acute Uncomplicated (without systemic symptoms) or Complicated (systemic symptoms)? @ -[Uncomplicated Side effects of treatment? @ -No Exacerbation, Progression, or Severe Exacerbation? @ -No Poses a threat to life or bodily function? How? (Chest pain, USA, AL, pneumonia, PE, COPD, DKA, ARF, appy, cholecystitis, CVA, Diverticulitis, Homicidal, Suicidal, threat to staff... and all critical care pts) @ -No - Lab Data Result diagrams: 12/10/24 23:37 12/10/24 23:37 Lab Results 12/10/24 12/10/24 12/10/24 Range/Units 23:37 23:37 23:37 WBC 14.01 H (4.50-10.00) 10*3/uL RBC 4.31 (4.10-5.20) 10*6/uL Hgb 10.3 L (12.0-15.0) g/dL Hct 33.5 L (37.2-46.3) % MCV 77.7 L (80.0-97.0) fL MCH 23.9 L (27.0-32.0) pg MCHC 30.7 L (32.0-37.0) g/dL RDW 22.7 H (11.5-14.5) % Plt Count 330 (140-440) 10*3/uL MPV 10.3 (9.5-12.2) fL Immature Gran % (Auto) 0.4 % Neutrophils % 66.9 % Lymphocytes % 25.0 % Monocytes % 7.1 % Eosinophils % 0.2 % Basophils % 0.4 % Immature Gran # 0.05 H (0.00-0.04) 10*3/uL Neutrophils # 9.38 H (1.80-7.70) 10*3/uL Lymphocytes # 3.50 (0.90-5.00) 10*3/uL Monocytes # 1.00 (0.20-1.00) 10*3/uL Eosinophils # 0.03 L (0.04-0.35) 10*3/uL Basophils # 0.05 (0.00-0.10) 10*3/uL PT 10.5 (10.0-12.5) sec INR 0.9 (<1.2) APTT 20.5 L (22.0-30.0) sec Sodium 141 (137-145) mmol/L Potassium 3.8 (3.5-5.1) mmol/L Chloride 106 (98-107) mmol/L Carbon Dioxide 31 H (22-30) mmol/L Anion Gap 4 mmol/L BUN 19 H (7-17) mg/dL Creatinine 0.99 (0.52-1.04) mg/dL Est GFR (CKD-EPI)AfAm 82 (>60 ml/min/1.73 sqM) Est GFR (CKD-EPI)NonAf 71 (>60 ml/min/1.73 sqM) Glucose 113 H (74-99) mg/dL Calcium 9.1 (8.4-10.2) mg/dL Magnesium 2.2 (1.6-2.3) mg/dL Total Bilirubin 0.3 (0.2-1.3) mg/dL AST 44 H (14-36) U/L ALT 46 H (4-34) U/L Alkaline Phosphatase 89 (38-126) U/L Troponin I (0.000-0.034) ng/mL Total Protein 6.4 (6.3-8.2) g/dL Albumin 3.8 (3.5-5.0) g/dL Urine Color Urine Appearance (Clear) Urine pH (5.0-8.0) Ur Specific Boyd (1.001-1.035) Urine Protein (Negative) Urine Glucose (UA) (Negative) Urine Ketones (Negative) Urine Blood (Negative) Urine Nitrite (Negative) Urine Bilirubin (Negative) Urine Urobilinogen (<2.0) mg/dL Ur Leukocyte Esterase (Negative) 12/10/24 12/11/24 Range/Units 23:37 00:44 WBC (4.50-10.00) 10*3/uL RBC (4.10-5.20) 10*6/uL Hgb (12.0-15.0) g/dL Hct (37.2-46.3) % MCV (80.0-97.0) fL MCH (27.0-32.0) pg MCHC (32.0-37.0) g/dL RDW (11.5-14.5) % Plt Count (140-440) 10*3/uL MPV (9.5-12.2) fL Immature Gran % (Auto) % Neutrophils % % Lymphocytes % % Monocytes % % Eosinophils % % Basophils % % Immature Gran # (0.00-0.04) 10*3/uL Neutrophils # (1.80-7.70) 10*3/uL Lymphocytes # (0.90-5.00) 10*3/uL Monocytes # (0.20-1.00) 10*3/uL Eosinophils # (0.04-0.35) 10*3/uL Basophils # (0.00-0.10) 10*3/uL PT (10.0-12.5) sec INR (<1.2) APTT (22.0-30.0) sec Sodium (137-145) mmol/L Potassium (3.5-5.1) mmol/L Chloride (98-107) mmol/L Carbon Dioxide (22-30) mmol/L Anion Gap mmol/L BUN (7-17) mg/dL Creatinine (0.52-1.04) mg/dL Est GFR (CKD-EPI)AfAm (>60 ml/min/1.73 sqM) Est GFR (CKD-EPI)NonAf (>60 ml/min/1.73 sqM) Glucose (74-99) mg/dL Calcium (8.4-10.2) mg/dL Magnesium (1.6-2.3) mg/dL Total Bilirubin (0.2-1.3) mg/dL AST (14-36) U/L ALT (4-34) U/L Alkaline Phosphatase (38-126) U/L Troponin I <0.012 (0.000-0.034) ng/mL Total Protein (6.3-8.2) g/dL Albumin (3.5-5.0) g/dL Urine Color Light Yellow Urine Appearance Clear (Clear) Urine pH 6.5 (5.0-8.0) Ur Specific Boyd 1.020 (1.001-1.035) Urine Protein Negative (Negative) Urine Glucose (UA) Negative (Negative) Urine Ketones Negative (Negative) Urine Blood Negative (Negative) Urine Nitrite Negative (Negative) Urine Bilirubin Negative (Negative) Urine Urobilinogen <2.0 (<2.0) mg/dL Ur Leukocyte Esterase Negative (Negative) Disposition Clinical Impression: Chest pain Disposition: HOME SELF-CARE Condition: Fair Instructions (If sedation given, give patient instructions): Chest Pain (ED) Is patient prescribed a controlled substance at d/c from ED?: No Referrals: Fatimah Riggins MD [Primary Care Provider] - 1-2 days Mayito Marrero DO [STAFF PHYSICIAN] - 1-2 days Time of Disposition: 01:17
[2024-12-11 01:04] LABS: Bilirubin,Urine Negative (Negative); Blood,Urine Negative (Negative); Color,Urine Light Yellow; Glucose,Urine (UA) Negative (Negative); Ketones,Urine Negative (Negative); Leukocyte Esterase,Urine Negative (Negative); Nitrite,Urine Negative (Negative); PH, Urine 6.5 (5.0-8.0); Protein,Urine Negative (Negative); Specific Gravity,Urine 1.020 (1.001-1.035); Urobilinogen,Urine <2.0 mg/dL (<2.0)
[2024-12-11] MEDS: HYDROmorphone 0.5 MG/0.5 ML SYRINGE IVP STA (01:26)
[2024-12-11 01:28] VITALS: BP 137/93; PULSE 64
--- NOTE | 2024-12-11 02:13 | XR ---
EXAM: XR Chest, 2 Views CLINICAL HISTORY: ITS.REASON XR Reason: Chest Pain TECHNIQUE: Frontal and lateral views of the chest. COMPARISON: X-ray chest: 11/08/2024 FINDINGS: Lungs: Bibasilar mildly increased interstitial markings and right lower lobe and ill-defined low-density nodularity. No consolidation. Pleural space: Unremarkable. No pneumothorax. Heart: Unremarkable. No cardiomegaly. Mediastinum: Prominent aortic knob. Otherwise normal mediastinal contour. Bones/joints: Unremarkable. No acute fracture. IMPRESSION: Bibasilar linear atelectatic changes and an ill-defined low- density nodularity in the right lower lobe. Radiographic follow-up for normalization recommended. .
== END 2024-12-11 01:28 | disposition home or self-care (01) ==
LOC: EC 23:04
DX: R07.9 Chest pain, unspecified (principal); Z88.1 Allergy status to other antibiotic agents; Z88.5 Allergy status to narcotic agent; Z88.8 Allergy status to other drugs, medicaments and biological substances
CPT/HCPCS: 36415; 71046; 80053; 81003; 83735; 84484; 85025; 85610; 85730; 93005; 96361; 96374; 99285